=== PATIENT | male | born 1980 | race Caucasian/White ===

== ENCOUNTER 2018-04-07 23:29 | Emergency (ER) | payer OTHER ==
--- NOTE | 2018-04-08 00:05 | ED ---
Chest Pain HPI - General Chief Complaint: Chest Pain Stated Complaint: Chest Pain Time Seen by Provider: 04/07/18 23:59 Source: patient Mode of arrival: ambulatory Limitations: no limitations - History of Present Illness Initial Comments: This patient is 38-year-old man with history of previous CHF then of AICD placement, who states that he is having 2 days of substernal chest tightness and burning type pain. He does state that he has been out of his medications for a couple of weeks. The patient states the pain is mild to moderate intensity. It is constant. He has not noted any worsening or relieving factors. No associated symptoms. Onset/Timin -: days(s) Onset: during rest Pain Location: substernal Pain Radiation: none Severity: moderate Quality: tightness, other (Burning) Consistency: constant Improves With: nothing Worsens With: nothing Treatments Prior to Arrival: none - Related Data Home Medications Medication Instructions Recorded Confirmed Carvedilol [Coreg] 25 mg PO BID-W/MEALS 11/15/15 02/03/16 Insulin Glargine [Lantus] 40 unit SQ HS 11/15/15 02/03/16 Insulin Glulisine [Apidra Solostar] 14 unit SQ AC-TID 11/15/15 02/03/16 metFORMIN HCL 1,000 mg PO QAM 11/15/15 02/03/16 Aspirin EC [Ecotrin] 325 mg PO DAILY 02/03/16 02/03/16 Previous Rx's Medication Instructions Recorded Aspirin 325 mg PO DAILY tab 02/06/16 Atorvastatin [Lipitor] 80 mg PO HS #30 tab 02/06/16 Lisinopril [Zestril] 10 mg PO DAILY #30 tab 02/06/16 Nitroglycerin Sl Tabs [Nitrostat] 0.4 mg SUBLINGUAL Q5M PRN #25 tab 02/06/16 Prasugrel [Effient] 10 mg PO DAILY #30 tab 02/06/16 Spironolactone [Aldactone] 25 mg PO DAILY #30 tablet 02/06/16 Albuterol Inhaler [Ventolin Hfa 1 - 2 puff INHALATION Q6HR PRN #1 04/08/18 Inhaler] inhaler Allergies Allergy/AdvReac Type Severity Reaction Status Date / Time Penicillins Allergy Unknown Verified 04/07/18 23:36 Childhood Review of Systems ROS Statement: Those systems with pertinent positive or pertinent negative responses have been documented in the HPI. ROS Other: All systems not noted in ROS Statement are negative. Constitutional: Denies: fever, chills Respiratory: Reports: cough, dyspnea. Denies: hemoptysis Cardiovascular: Reports: chest pain, orthopnea. Denies: palpitations, edema, syncope Gastrointestinal: Denies: abdominal pain, nausea, vomiting Genitourinary: Denies: dysuria, hematuria Musculoskeletal: Denies: back pain Skin: Denies: rash Neurological: Denies: headache, weakness, numbness EKG Findings - EKG Comments: EKG Findings:: Possible old anteroseptal infarct, based on Q waves lead V2 V3 - EKG Results: EKG: interpreted by AKHIL, sinus rhythm, normal axis, normal ST/T EKG shows: tachycardia (Rate 118 bpm) Past Medical History Past Medical History: Chest Pain / Angina, Heart Failure, Diabetes Mellitus, Hyperlipidemia, Hypertension, Sleep Apnea/CPAP/BIPAP Additional Past Medical History / Comment(s): migraines, arrythmia, no cpap used , History of Any Multi-Drug Resistant Organisms: None Reported Past Surgical History: AICD, Heart Catheterization Past Anesthesia/Blood Transfusion Reactions: Motion Sickness Type of Cardiac Device: AICD Device Placement Date:: 2012 Past Psychological History: Anxiety Smoking Status: Current every day smoker Past Alcohol Use History: None Reported Past Drug Use History: None Reported - Past Family History Mother Family Medical History: No Reported History General Exam Limitations: no limitations General appearance: alert, in no apparent distress, obese Head exam: Present: atraumatic, normocephalic Eye exam: Present: normal appearance. Absent: scleral icterus, conjunctival injection ENT exam: Present: normal oropharynx Respiratory exam: Present: wheezes. Absent: respiratory distress, rales, rhonchi, stridor Cardiovascular Exam: Present: normal rhythm, tachycardia, normal heart sounds. Absent: systolic murmur, diastolic murmur, rubs, gallop GI/Abdominal exam: Present: soft. Absent: distended, tenderness, guarding, rebound, rigid, mass Extremities exam: Present: normal inspection, normal capillary refill. Absent: pedal edema, calf tenderness Back exam: Present: normal inspection. Absent: CVA tenderness (R), CVA tenderness (L) Neurological exam: Present: alert Skin exam: Present: warm, dry, intact, normal color. Absent: rash Course Vital Signs 04/07/18 04/08/18 04/08/18 23:33 00:00 00:30 Temperature 98.2 F Pulse Rate 121 H 114 H 116 H Respiratory 20 16 12 Rate Blood Pressure 140/95 142/104 151/104 O2 Sat by Pulse 99 95 94 L Oximetry 04/08/18 04/08/18 04/08/18 01:00 01:06 01:14 Temperature Pulse Rate 114 H 114 H 111 H Respiratory 15 16 16 Rate Blood Pressure 140/97 O2 Sat by Pulse 95 Oximetry 04/08/18 04/08/18 01:30 03:00 Temperature 98.4 F Pulse Rate 112 H 98 Respiratory 16 18 Rate Blood Pressure 135/95 101/72 O2 Sat by Pulse 93 L 96 Oximetry Disposition Clinical Impression: Bronchitis, Hyperglycemia due to type 2 diabetes mellitus Disposition: HOME SELF-CARE Condition: Fair Instructions: Diabetic Hyperglycemia (ED) Prescriptions: Albuterol Inhaler [Ventolin Hfa Inhaler] 1 - 2 puff INHALATION Q6HR PRN #1 inhaler PRN Reason: Wheezing Is patient prescribed a controlled substance at d/c from ED?: No Referrals: Amrit Dan MD [Primary Care Provider] - 1-2 days
[2018-04-08] MEDS ORDERED: CARVEDILOL 12.5 MG TAB PO STA (00:13)
[2018-04-08] MEDS ORDERED: LISINOPRIL 10 MG TAB PO STA (00:13)
[2018-04-08] MEDS ORDERED: ASPIRIN 81 MG PO STA (00:14)
[2018-04-08] MEDS ORDERED: ALBUTEROL NEBULIZED 2.5 MG/3 ML INHALATION STA (00:17)
[2018-04-08 00:33] LABS: Basophils # (A) 0.1 k/uL (0-0.2); Basophils % (A) 1 %; Eosinophils # (A) 0.2 k/uL (0-0.7); Eosinophils % (A) 2 %; HCT 48.2 % (39.0-53.0); HGB 16.3 gm/dL (13.0-17.5); Lymphocytes # (A) 2.4 k/uL (1.0-4.8); Lymphocytes % (A) 25 %; MCH 28.9 pg (25.0-35.0); MCHC 33.7 g/dL (31.0-37.0); MCV 85.6 fL (80.0-100.0); Mean Platelet Volume 7.8; Monocytes # (A) 0.6 k/uL (0-1.0); Monocytes % (A) 6 %; Neutrophils # (A) 6.3 k/uL (1.3-7.7); Neutrophils % (A) 65 %; Platelet Count 216 k/uL (150-450); RBC 5.63 m/uL (4.30-5.90); RDW 13.5 % (11.5-15.5); WBC 9.7 k/uL (3.8-10.6)
[2018-04-08 00:44] LABS: ALT 33 U/L (21-72); AST 15 U/L (17-59); Albumin 3.3 g/dL (3.5-5.0); Alkaline Phosphatase 160 U/L (38-126); Anion Gap 9 mmol/L; Blood Urea Nitrogen 18 mg/dL (9-20); Calcium 8.8 mg/dL (8.4-10.2); Carbon Dioxide 23 mmol/L (22-30); Chloride 100 mmol/L (98-107); Magnesium 1.8 mg/dL (1.6-2.3); Potassium 4.7 mmol/L (3.5-5.1); Sodium 132 mmol/L (137-145); Total Bilirubin 0.9 mg/dL (0.2-1.3)
[2018-04-08 00:52] LABS: D-Dimer 0.44 mg/L FEU (<0.60); INR 0.9 (<1.2); Partial Thromboplastin Time 23.2 sec (22.0-30.0); Prothrombin Time 9.5 sec (9.0-12.0)
--- NOTE | 2018-04-08 01:00 | XR ---
EXAMINATION TYPE: XR chest 2V DATE OF EXAM: 04/08/2018 COMPARISON: 07/21/2013 HISTORY: Chest pain and difficulty breathing TECHNIQUE: Frontal and lateral views of the chest are obtained. FINDINGS: Heart and mediastinum are normal. Lungs are clear of infiltrate. There is no pleural effus ion. Costophrenic angles are clear. There is left axillary pacemaker with the lead tips in the right ventricle. There are chest leads. Bony thorax is intact. There is small linear density at the lateral right lung base consistent with subsegmental atelectasis. IMPRESSION: Minimal subsegmental atelectasis is new compared to old exam. Normal heart.
[2018-04-08 01:06] LABS: Glucose 543 mg/dL (74-99)
[2018-04-08 01:11] LABS: Creatine Kinase MB 0.8 ng/mL (0.0-2.4); Troponin I 0.028 ng/mL (0.000-0.034)
[2018-04-08] MEDS ORDERED: SODIUM CHLORIDE 0.9% 1,000 ML IV ONE (01:20)
[2018-04-08] MEDS ORDERED: INSULIN REGULAR 100 UNIT/ML VIAL IV STA (01:20)
[2018-04-08 03:05] LABS: Glucose,Whole Blood 321 mg/dL (75-99)
[2018-04-08 03:11] VITALS: BP 101/72; PULSE 98; RESP 18; TEMP 98.4
== END 2018-04-08 03:45 | disposition home or self-care (01) ==
LOC: EC 23:29
DX: E11.65 Type 2 diabetes mellitus with hyperglycemia (principal); J40 Bronchitis, not specified as acute or chronic; I11.0 Hypertensive heart disease with heart failure; I50.9 Heart failure, unspecified; E11.9 Type 2 diabetes mellitus without complications; F17.200 Nicotine dependence, unspecified, uncomplicated; Z79.4 Long term (current) use of insulin; Z79.82 Long term (current) use of aspirin; Z79.899 Other long term (current) drug therapy; Z88.0 Allergy status to penicillin; Z95.818 Presence of other cardiac implants and grafts; Z95.810 Presence of automatic (implantable) cardiac defibrillator
CPT/HCPCS: 36415; 71046; 80053; 82550; 82553; 83735; 83880; 84484; 85025; 85379; 85610; 85730; 93005; 94640; 96360; 99285

== ENCOUNTER 2018-05-05 07:17 | Observation (INO) | payer OTHER ==
--- NOTE | 2018-05-05 07:38 | ED ---
General Adult HPI - General Chief complaint: Shortness of Breath Stated complaint: SOB Time Seen by Provider: 05/05/18 07:27 Source: patient, RN notes reviewed Mode of arrival: ambulatory Limitations: no limitations - History of Present Illness Initial comments: Patient is a pleasant 38-year-old male presenting to the emergency Department with shortness of breath. Onset of symptoms was several weeks ago. Patient was in the emergency department at one point and did receive an inhaler. Inhaler helps a little bit however overall symptoms have worsened. Patient does have occasional cough that is nonproductive. Patient has some discomfort of her bilateral chest with cough only. No fevers. No leg pain or leg swelling. No history of chronic dyspnea. Patient did discontinue smoking one year ago. Patient has smoked for 22 years. Dyspnea does worsen with exertion. - Related Data Home Medications Medication Instructions Recorded Confirmed Carvedilol [Coreg] 25 mg PO BID-W/MEALS 11/15/15 05/05/18 metFORMIN HCL 1,000 mg PO QAM 11/15/15 05/05/18 Aspirin EC [Ecotrin] 325 mg PO DAILY 02/03/16 05/05/18 Albuterol Inhaler [Ventolin Hfa 1 - 2 puff INHALATION RT-Q6H PRN 05/05/18 Inhaler] Ibuprofen 800 mg PO QID PRN 05/05/18 05/05/18 Insulin Glargine,Hum.rec.anlog 120 units SQ QAM 05/05/18 05/05/18 [Basaglar Kwikpen U-100] Lisinopril 20 mg PO DAILY 05/05/18 05/05/18 Previous Rx's Medication Instructions Recorded Atorvastatin [Lipitor] 80 mg PO HS #30 tab 02/06/16 Nitroglycerin Sl Tabs [Nitrostat] 0.4 mg SUBLINGUAL Q5M PRN #25 tab 02/06/16 Allergies Allergy/AdvReac Type Severity Reaction Status Date / Time Penicillins Allergy Unknown Verified 05/05/18 07:53 Childhood Review of Systems ROS Statement: Those systems with pertinent positive or pertinent negative responses have been documented in the HPI. ROS Other: All systems not noted in ROS Statement are negative. Constitutional: Denies: fever Eyes: Denies: eye pain ENT: Denies: ear pain Respiratory: Reports: as per HPI, dyspnea Cardiovascular: Reports: as per HPI Endocrine: Denies: fatigue Gastrointestinal: Denies: abdominal pain Genitourinary: Denies: dysuria Musculoskeletal: Denies: back pain Skin: Denies: rash Neurological: Denies: weakness Past Medical History Past Medical History: Chest Pain / Angina, Heart Failure, Diabetes Mellitus, Hyperlipidemia, Hypertension, Sleep Apnea/CPAP/BIPAP Additional Past Medical History / Comment(s): migraines, arrythmia, no cpap used , History of Any Multi-Drug Resistant Organisms: None Reported Past Surgical History: AICD, Heart Catheterization Past Anesthesia/Blood Transfusion Reactions: Motion Sickness Type of Cardiac Device: AICD Device Placement Date:: 2012 Past Psychological History: Anxiety Smoking Status: Current every day smoker Past Alcohol Use History: None Reported Past Drug Use History: None Reported - Past Family History Mother Family Medical History: No Reported History General Exam Limitations: no limitations General appearance: alert, in no apparent distress Head exam: Present: atraumatic Eye exam: Present: normal appearance, PERRL ENT exam: Present: normal oropharynx Neck exam: Present: normal inspection Respiratory exam: Present: decreased breath sounds (Mild) Cardiovascular Exam: Present: tachycardia Expanded Peripheral pulses: 2+: Radial (R), Radial (L), Dorsalis Pedis (R), Dorsalis Pedis (L) GI/Abdominal exam: Present: soft. Absent: tenderness Extremities exam: Present: normal inspection. Absent: pedal edema, calf tenderness Neurological exam: Present: alert Psychiatric exam: Present: normal affect, normal mood Skin exam: Present: normal color Course Vital Signs 05/05/18 05/05/18 05/05/18 07:24 08:22 08:31 Temperature 98.3 F Pulse Rate 107 H 104 H Respiratory 22 18 Rate Blood Pressure 139/90 O2 Sat by Pulse 94 L Oximetry 05/05/18 08:41 Temperature Pulse Rate 104 H Respiratory Rate Blood Pressure O2 Sat by Pulse Oximetry EKG Findings - EKG Comments: EKG Findings:: Sinus tachycardia 107. NC 176. QRS 110. QT 06/[birth year]/1945. QTc 461. Normal axis. Septal Q waves. Nonspecific ST-T. Medical Decision Making - Medical Decision Making Patient reevaluated and resting comfortably in bed. Patient updated on results and plan. Dr. Dan has been paged for admission. - Lab Data Result diagrams: 05/05/18 08:06 01/14/19 08:06 Lab Results 05/05/18 05/05/18 05/05/18 Range/Units 08:06 08:06 08:06 WBC 9.6 (3.8-10.6) k/uL RBC 5.13 (4.30-5.90) m/uL Hgb 15.1 (13.0-17.5) gm/dL Hct 43.3 (39.0-53.0) % MCV 84.5 (80.0-100.0) fL MCH 29.5 (25.0-35.0) pg MCHC 34.9 (31.0-37.0) g/dL RDW 13.9 (11.5-15.5) % Plt Count 246 (150-450) k/uL Neutrophils % 68 % Lymphocytes % 21 % Monocytes % 6 % Eosinophils % 3 % Basophils % 1 % Neutrophils # 6.5 (1.3-7.7) k/uL Lymphocytes # 2.0 (1.0-4.8) k/uL Monocytes # 0.6 (0-1.0) k/uL Eosinophils # 0.2 (0-0.7) k/uL Basophils # 0.1 (0-0.2) k/uL PT (9.0-12.0) sec INR (<1.2) APTT (22.0-30.0) sec Sodium 142 (137-145) mmol/L Potassium 4.4 (3.5-5.1) mmol/L Chloride 111 H (98-107) mmol/L Carbon Dioxide 21 L (22-30) mmol/L Anion Gap 10 mmol/L BUN 19 (9-20) mg/dL Creatinine 0.78 (0.66-1.25) mg/dL Est GFR (CKD-EPI)AfAm >90 (>60 ml/min/1.73 sqM) Est GFR (CKD-EPI)NonAf >90 (>60 ml/min/1.73 sqM) Glucose 221 H (74-99) mg/dL Calcium 9.0 (8.4-10.2) mg/dL Total Bilirubin 1.6 H (0.2-1.3) mg/dL AST 20 (17-59) U/L ALT 28 (21-72) U/L Alkaline Phosphatase 93 (38-126) U/L Total Creatine Kinase 43 L (55-170) U/L CK-MB (CK-2) 0.9 (0.0-2.4) ng/mL CK-MB (CK-2) Rel Index 2.1 Troponin I 0.017 (0.000-0.034) ng/mL NT-Pro-B Natriuret Pep pg/mL Total Protein 6.4 (6.3-8.2) g/dL Albumin 3.6 (3.5-5.0) g/dL 05/05/18 05/05/18 Range/Units 08:06 08:06 WBC (3.8-10.6) k/uL RBC (4.30-5.90) m/uL Hgb (13.0-17.5) gm/dL Hct (39.0-53.0) % MCV (80.0-100.0) fL MCH (25.0-35.0) pg MCHC (31.0-37.0) g/dL RDW (11.5-15.5) % Plt Count (150-450) k/uL Neutrophils % % Lymphocytes % % Monocytes % % Eosinophils % % Basophils % % Neutrophils # (1.3-7.7) k/uL Lymphocytes # (1.0-4.8) k/uL Monocytes # (0-1.0) k/uL Eosinophils # (0-0.7) k/uL Basophils # (0-0.2) k/uL PT 10.5 (9.0-12.0) sec INR 1.0 (<1.2) APTT 23.1 (22.0-30.0) sec Sodium (137-145) mmol/L Potassium (3.5-5.1) mmol/L Chloride (98-107) mmol/L Carbon Dioxide (22-30) mmol/L Anion Gap mmol/L BUN (9-20) mg/dL Creatinine (0.66-1.25) mg/dL Est GFR (CKD-EPI)AfAm (>60 ml/min/1.73 sqM) Est GFR (CKD-EPI)NonAf (>60 ml/min/1.73 sqM) Glucose (74-99) mg/dL Calcium (8.4-10.2) mg/dL Total Bilirubin (0.2-1.3) mg/dL AST (17-59) U/L ALT (21-72) U/L Alkaline Phosphatase (38-126) U/L Total Creatine Kinase (55-170) U/L CK-MB (CK-2) (0.0-2.4) ng/mL CK-MB (CK-2) Rel Index Troponin I (0.000-0.034) ng/mL NT-Pro-B Natriuret Pep 798 pg/mL Total Protein (6.3-8.2) g/dL Albumin (3.5-5.0) g/dL - Radiology Data Radiology results: report reviewed (Computed tomography scan the chest negative for pulmonary embolism. There is peribronchial cuffing. There is interstitial edema and moderate pleural effusion right greater than left. Cardiac megaly is present likely related to underlying decompensated congestive heart failure.) Disposition Clinical Impression: Congestive heart failure Disposition: ADMITTED IP TO THIS [facility] Referrals: Amrit Dan MD [Primary Care Provider] - 1-2 days Decision Time: 10:25
[2018-05-05 08:19] LABS: Basophils # (A) 0.1 k/uL (0-0.2); Basophils % (A) 1 %; Eosinophils # (A) 0.2 k/uL (0-0.7); Eosinophils % (A) 3 %; HCT 43.3 % (39.0-53.0); HGB 15.1 gm/dL (13.0-17.5); Lymphocytes % (A) 21 %; MCH 29.5 pg (25.0-35.0); MCHC 34.9 g/dL (31.0-37.0); MCV 84.5 fL (80.0-100.0); Mean Platelet Volume 7.3; Monocytes # (A) 0.6 k/uL (0-1.0); Monocytes % (A) 6 %; Neutrophils # (A) 6.5 k/uL (1.3-7.7); Neutrophils % (A) 68 %; Platelet Count 246 k/uL (150-450); RBC 5.13 m/uL (4.30-5.90); RDW 13.9 % (11.5-15.5); WBC 9.6 k/uL (3.8-10.6)
[2018-05-05] MEDS: IPRATROPIUM-ALBUTEROL 3 ML NEB INHALATION STA (08:28)
[2018-05-05 08:31] LABS: ALT 28 U/L (21-72); AST 20 U/L (17-59); Albumin 3.6 g/dL (3.5-5.0); Alkaline Phosphatase 93 U/L (38-126); Anion Gap 10 mmol/L; Blood Urea Nitrogen 19 mg/dL (9-20); Carbon Dioxide 21 mmol/L (22-30); Chloride 111 mmol/L (98-107); Glucose 221 mg/dL (74-99); Potassium 4.4 mmol/L (3.5-5.1); Sodium 142 mmol/L (137-145); Total Bilirubin 1.6 mg/dL (0.2-1.3); Total Protein 6.4 g/dL (6.3-8.2)
[2018-05-05 08:47] LABS: Partial Thromboplastin Time 23.1 sec (22.0-30.0); Prothrombin Time 10.5 sec (9.0-12.0)
[2018-05-05 08:53] LABS: Creatine Kinase MB 0.9 ng/mL (0.0-2.4); Troponin I 0.017 ng/mL (0.000-0.034)
--- NOTE | 2018-05-05 09:53 | CT ---
EXAMINATION TYPE: CT angio chest DATE OF EXAM: 05/05/2018 COMPARISON: NONE HISTORY: difficulty breathing CT DLP: 885.4 mGycm. Automated Exposure Control for Dose Reduction was Utilized. CONTRAST: CTA scan of the thorax is performed with IV Contrast, patient injected with 100 mL of Isovue 370, pul monary embolism protocol. MIP Images are created on CT scanner and reviewed. FINDINGS: LUNGS: There are bilateral pleural effusions, right greater than left that are moderate in degree wit h associated bibasilar airspace disease. There is mild interstitial edema throughout and more conflue nt right upper lobe probable pulmonary edema. There is diffuse The cuffing seen. Findings Limited evaluation for subcentimeter pulmonary nodules. MEDIASTINUM: There is satisfactory enhancement of the pulmonary artery and its branches, there is no CT evidence for pulmonary embolism. There are no greater than 1 cm hilar or mediastinal lymph nodes. The heart is enlarged. Small pericardial effusion is seen. OTHER: Splenule is noted adjacent to the splenic hilum. IMPRESSION: 1. No evidence of pulmonary embolus. 2. Peribronchial cuffing may relate to fluid overload or superimposed airway disease of infectious or inflammatory etiology. 3. Interstitial edema and moderate pleural effusions, right greater than left, with right upper lobe confluent probable pulmonary edema examination with cardiomegaly likely relate to underlying decompen sated congestive heart failure.
[2018-05-05] MEDS ORDERED: ASPIRIN 325 MG TAB PO STA (10:26)
[2018-05-05] MEDS: NITROGLYCERIN OINT 1 INCH/GM PACKET TOPICAL SCH ×3 (11:19→19:50)
[2018-05-05] MEDS: FUROSEMIDE 10 MG/ML 4 ML VIAL IV SCH ×3 (11:19→22:39)
[2018-05-05 12:25] LABS: Glucose,Whole Blood 157 mg/dL (75-99)
[2018-05-05 15:18] VITALS: BMI 44.6
[2018-05-05] MEDS ORDERED: NITROGLYCERIN SL TABS 0.4 MG TAB SUBLINGUAL PRN (16:24)
[2018-05-05 17:16] LABS: Glucose,Whole Blood 160 mg/dL (75-99)
[2018-05-05] MEDS: CARVEDILOL 12.5 MG TAB PO SCH (17:35)
--- NOTE | 2018-05-05 18:23 | CONS ---
ERAN Dunn is a 38-year-old gentleman with history of multivessel coronary artery disease, status post angioplasty, ischemic cardiomyopathy with severe LV dysfunction, status post AICD, hypertension, [id number]-sigpeeigk diabetes, presents to hospital complaining of shortness of breath. The patient has mild to moderate intensity shortness of breath. It has been getting progressively worse over the last several days. He denies leg edema, but has some paroxysmal nocturnal dyspnea. At the time of my evaluation, patient is comfortable at rest. Having his dinner. He is receiving intravenous diuretics. PAST MEDICAL HISTORY: Significant for coronary artery disease, status post angioplasty, ischemic cardiomyopathy with LV systolic dysfunction, hypertension, dyslipidemia. MEDICATIONS: Medications include: Lisinopril 20 daily, ibuprofen, metformin, insulin, Coreg 25 b.i.d., Lipitor, aspirin, albuterol. ALLERGIES: TO PENICILLIN. FAMILY HISTORY: Negative for premature coronary artery disease. SOCIAL HISTORY: Significant for smoking. There is no history of EtOH abuse or drug abuse. REVIEW OF SYSTEMS: HEENT is unremarkable. CARDIAC as described above. RESPIRATORY as described above. GI negative. GENITOURINARY: Negative. ALLERGY: Negative. SKIN Negative. MUSCULOSKELETAL negative. ENDOCRINE: Negative. DERM: Negative. CONSTITUTIONAL negative. ONCOLOGICAL negative. Rest of the systems review is not relevant. EXAM: Heart rate is 100 beats per minute, blood pressure is 120/86, respiratory rate is 18, O2 sat is 92% on room air. There is no jugular venous distention. Chest exam did not reveal any crackles or rhonchi. Heart exam reveals first and second heart sounds. No gallop. Exam of extremities did not reveal any edema. Peripheral pulses are felt. LAB: Show a hemoglobin of 15.1, platelet count is 246, potassium is 4.4. Creatinine is 0.78. BNP is 798. Troponin is normal. EKG shows sinus tachycardia with nonspecific ST-T wave changes. ASSESSMENT: 1. Acute exacerbation of chronic systolic heart failure. 2. Ischemic cardiomyopathy status post AICD. 3. Coronary artery disease, status post angioplasty. PLAN: I agree with intravenous diuretics. I will obtain a 2D echo to evaluate his LV function. Continue the lisinopril and Coreg. Thank you for allowing us to participate in the care of this pleasant gentleman. MMODL / IJN: [id number] /
--- NOTE | 2018-05-05 19:20 | ECHOF ---
Referral Reason:Heart Failure MEASUREMENTS -------- HEIGHT: 180.3 cm WEIGHT: 145.1 kg BP: 139/90 RVIDd: 3.4 cm (< 3.3) IVSd: 1.3 cm (0.6 - 1.1) LVIDd: 6.1 cm (3.9 - 5.3) LVPWd: 1.3 cm (0.6 - 1.1) IVSs: 1.7 cm LVIDs: 4.7 cm LVPWs: 1.7 cm LA Diam: 3.7 cm (2.7 - 3.8) LAESV Index (A-L): 35.13 ml/m Ao Diam: 3.2 cm (2.0 - 3.7) AV Cusp: 2.1 cm (1.5 - 2.6) MV EXCURSION: 22.863 mm (> 18.000) MV EF SLOPE: 124 mm/s (70 - 150) EPSS: 1.3 cm RAP: 5.00 mmHg RVSP: 61.47 mmHg FINDINGS -------- Paced rhythm. Pacerwire seen in RV and RA. This was a technically difficult study with suboptimal apical views. The left ventricle is mildly dilated. There is mild concentric left ventricular hypertrophy. Over all left ventricular systolic function is severely impaired with, an EF between 20 - 25 %. The right ventricle is mildly enlarged. LA is moderately dilated 34-39 ml/m2 The right atrium is normal in size. Lumason used The aortic valve is trileaflet and appears structurally normal. [id number] mitral regurgitation is present. Moderate tricuspid regurgitation present. There is severe pulmonary hypertension. The right ventr icular systolic pressure, as measured by Doppler, is 61.47mmHg. Trace/mild (physiologic) pulmonic regurgitation. The aortic root size is normal. The inferior vena cava is dilated with no significant inspiratory collapse which is consistent estima galilea right atrial pressure of >15 mmHg. There is a small pericardial effusion located near the left ventricle. CONCLUSIONS -------- 1. Paced rhythm. 2. Pacerwire seen in RV and RA. 3. This was a technically difficult study with suboptimal apical views. 4. The left ventricle is mildly dilated. 5. There is mild concentric left ventricular hypertrophy. 6. Overall left ventricular systolic function is severely impaired with, an EF between 20 - 25 %. 7. The right ventricle is mildly enlarged. 8. LA is moderately dilated 34-39 ml/m2 9. The right atrium is normal in size. 10. Lumason used 11. The aortic valve is trileaflet and appears structurally normal. 12. Buha-tr-cgrkzzwj mitral regurgitation is present. 13. Moderate tricuspid regurgitation present. 14. There is severe pulmonary hypertension. 15. The right ventricular systolic pressure, as measured by Doppler, is 61.47mmHg. 16. Trace/mild (physiologic) pulmonic regurgitation. 17. The aortic root size is normal. 18. The inferior vena cava is dilated with no significant inspiratory collapse which is consistent es timated right atrial pressure of >20 mmHg. 19. There is a small pericardial effusion located near the left ventricle. FUNERAL GREETER: Kasey Blum RDCS
[2018-05-05 20:47] LABS: Glucose,Whole Blood 301 mg/dL (75-99)
[2018-05-06 04:57] LABS: Hemoglobin A1C 11.4 % (4.0-6.0)
[2018-05-06] MEDS: CARVEDILOL 12.5 MG TAB PO SCH ×2 (05:45→15:52)
[2018-05-06 05:46] LABS: Glucose,Whole Blood 173 mg/dL (75-99)
[2018-05-06 05:48] VITALS: RESP 18
[2018-05-06] MEDS: NITROGLYCERIN OINT 1 INCH/GM PACKET TOPICAL SCH ×2 (08:14→11:03)
[2018-05-06] MEDS: ASPIRIN 325 MG TAB PO SCH (08:23)
[2018-05-06] MEDS: LISINOPRIL 20 MG TAB PO SCH (08:23)
[2018-05-06] MEDS: FUROSEMIDE 10 MG/ML 4 ML VIAL IV SCH ×3 (08:23→22:29)
[2018-05-06] MEDS ORDERED: NON-FORMULARY DRUG (Aspirin Ec 325 MG) PO SCH (09:00)
[2018-05-06] MEDS ORDERED: IBUPROFEN 800 MG TAB PO PRN (10:20)
[2018-05-06 12:12] LABS: Glucose,Whole Blood 276 mg/dL (75-99)
[2018-05-06] MEDS: INSULIN DETEMIR (LEVEMIR) 100 UNIT/ML SYR SQ SCH (12:21)
--- NOTE | 2018-05-06 14:58 | P.PN ---
Subjective Progress Note Date: 05/06/18 This is a pleasant 38-year-old gentleman with history of multivessel coronary artery disease status post angioplasty, ischemic cardio myopathy with severe LV dysfunction, status post AICD, hypertension, vzx-xzcuqvn-cpjveuowt diabetes, who initially presented to the hospital with complaints of shortness of breath, he has been diuresing well on IV Lasix. No lab data has been ordered for today. overall feeling significantly better today. Blood pressure 126/90 , heart rate in the 90s, 93% on room air. Objective - Vital Signs Vital signs: Vital Signs Temp 97.8 F 05/06/18 12:00 Pulse 94 05/06/18 12:00 Resp 18 05/06/18 12:00 BP 127/90 05/06/18 12:00 Pulse Ox 95 05/06/18 12:13 Intake & Output 05/05/18 05/06/18 05/06/18 18:59 06:59 18:59 Intake Total 480 240 480 Output Total 500 1000 Balance -20 -760 480 Weight 145.15 kg 146.6 kg Intake: Oral 480 240 480 Output: Urine 500 1000 Other: # Voids 2 1 2 - Exam PHYSICAL EXAMINATION: GENERAL: 38-year-old gentleman in no acute distress at the time of my examination HEENT: Head is atraumatic, normocephalic. Pupils equal, round. Sclera anicteric. Conjunctiva are clear. Mucous membranes of the mouth are moist. Neck is supple. There is no elevated jugular venous pressure. No carotid bruit is heard. HEART EXAMINATION: Heart S1, S2 normal. No murmur or gallop heard. CHEST EXAMINATION: Lungs are clear to auscultation and precussion. No chest wall tenderness is noted on palpation or with deep breathing. ABDOMEN: Soft, nontender. Bowel sounds are heard. No organomegaly noted. EXTREMITIES: 2+ peripheral pulses with trace evidence of peripheral edema and no calf tenderness noted. NEUROLOGIC patient is awake, alert and oriented X3. . - Labs CBC & Chem 7: 05/05/18 08:06 05/05/18 08:06 Labs: Abnormal Lab Results - Last 24 Hours (Table) 05/05/18 05/05/18 05/05/18 Range/Units 08:06 17:08 20:46 POC Glucose (mg/dL) 160 H 301 H (75-99) mg/dL Hemoglobin A1c 11.4 H (4.0-6.0) % 05/06/18 05/06/18 Range/Units 05:45 11:41 POC Glucose (mg/dL) 173 H 276 H (75-99) mg/dL Hemoglobin A1c (4.0-6.0) % Assessment and Plan Plan: Assessment and plan #1 systolic congestive heart failure acute on chronic #2 ischemic cardiomyopathy with prior AICD implantation #3 CAD with prior PCI #4 hypertension #5 hyperlipidemia Plan Echocardiogram with Doppler study was performed which revealed an ejection fraction of 20-25%, mild to moderate mitral regurgitation, moderate TR, severe pulmonary hypertension. We will continue current dose of IV Lasix. Check lytes BUN and creatinine today and daily. Continue to monitor intake and output. We'll also add Aldactone to his medication regime. DNP note has been reviewed, I agree with a documented findings and plan of care. Patient was seen and examined.
--- NOTE | 2018-05-06 15:06 | HP ---
HISTORY AND PHYSICAL CHIEF COMPLAINT: Shortness of breath. HISTORY OF PRESENT ILLNESS: This is the first known admission for this 38-year-old white male. He does have a history of diabetes and hypertension. He has had past cardiac issues as well. Presented to the emergency room after he developed shortness of breath. He denied fever and chills, cough, hemoptysis, etc. Histories are significant in that he was diagnosed with congestive heart failure in 2011. He has a history of hyperlipidemia and type 2 diabetes. Been treated for hypertension and he had a pacemaker placed in October of 2012. In the left in the last couple years, he was treated for an UT. He has had cardiac cath with stent placement and also an ICD. REVIEW OF SYSTEMS: She has had no syncope, headache, change in vision and hearing, chest pain, nausea, vomiting, hematemesis, melena, hematochezia, jaundice, hepatitis, hematuria, frequency, renal failure, etc. Past medical history, family history personal and social histories reveal that he is allergic to PENICILLIN. He is on lisinopril 2.5 once a day, Coreg 3.125 once a day, vitamin D 50,000 units a month, ibuprofen 800 mg q.i.d. p.r.n., metformin 1 g once a day, 120 units once a day, aspirin 325 once a day, nitroglycerin p.r.n. Family history is significant in that he states that many members of his family on both sides had heart disease and congestive heart failure that was frequently diagnosed. He does not smoke. PHYSICAL EXAM: Blood pressure is 138/82 with a pulse of 98, respirations of 32. He is afebrile. In general, he appeared to be overweight in no acute distress. Skin color is normal, skin is warm, dry. Lymph nodes not enlarged. Head, ears, eyes, nose, mouth, and throat were normal. Neck veins are not distended. Thyroid enlarged. Chest is clear. Cardiac exam demonstrated sinus rhythm with no obvious S3 or S4 or murmur. Abdomen is soft and protuberant. There are no masses or visceromegaly. Extremities are normal and neurologically he is intact. He is admitted to the hospital with diagnoses: 1. Acute congestive heart failure. 2. Probable atherosclerotic cardiomyopathy. 3. History of coronary artery disease. 4. Family history of heart disease. 5. Diabetes mellitus. PLAN: 1. Bed rest. 2. IV fluids. 3. Cardiology consult. 4. Repeat echocardiogram. MMSRAVANTHIL / IJN: [id number] /
--- NOTE | 2018-05-06 15:23 | PN ---
PROGRESS NOTE DATE OF SERVICE: 05/06/2018 CHIEF COMPLAINT: Shortness of breath and congestive heart failure. HISTORY OF PRESENT ILLNESS: This gentleman is doing a little bit better. He is breathing better since he has been diuresed. PHYSICAL EXAM: He has rales at both bases and cardiac exam is unremarkable. The abdomen is soft, nontender. IMPRESSION: 1. Acute congestive heart failure. 2. Chronic diastolic congestive heart failure. 3. Atherosclerotic cardiomyopathy. 4. Coronary artery disease. 5. Poorly controlled diabetes mellitus. PLAN: 1. Bed rest. 2. IV fluids. 3. Await further cardiac evaluation, but his echocardiogram is ominous with significant decrease in ejection fraction and extreme pulmonary hypertension. MMODL / IJN: [id number] /
[2018-05-06 15:32] LABS: Anion Gap 9 mmol/L; Blood Urea Nitrogen 19 mg/dL (9-20); Carbon Dioxide 27 mmol/L (22-30); Chloride 105 mmol/L (98-107); Glucose 161 mg/dL (74-99); Sodium 141 mmol/L (137-145)
[2018-05-06] MEDS: SPIRONOLACTONE 25 MG TAB PO SCH (15:52)
[2018-05-06 16:22] LABS: Glucose,Whole Blood 261 mg/dL (75-99)
[2018-05-06] MEDS: MAGNESIUM SULFATE-D5W PMX 1 GM in DEXTROSE/WATER 1 100ML.BAG IVPB SCH (16:35)
[2018-05-06 21:14] LABS: Glucose,Whole Blood 334 mg/dL (75-99)
[2018-05-07] MEDS: CARVEDILOL 12.5 MG TAB PO SCH (05:53)
[2018-05-07 06:00] LABS: Glucose,Whole Blood 141 mg/dL (75-99)
[2018-05-07 07:24] LABS: Anion Gap 8 mmol/L; Blood Urea Nitrogen 22 mg/dL (9-20); Calcium 8.7 mg/dL (8.4-10.2); Carbon Dioxide 30 mmol/L (22-30); Chloride 104 mmol/L (98-107); Glucose 134 mg/dL (74-99); Sodium 142 mmol/L (137-145)
[2018-05-07] MEDS: SPIRONOLACTONE 25 MG TAB PO SCH (07:41)
[2018-05-07] MEDS: LISINOPRIL 20 MG TAB PO SCH (07:41)
[2018-05-07] MEDS: ASPIRIN 325 MG TAB PO SCH (07:41)
[2018-05-07] MEDS: FUROSEMIDE 10 MG/ML 4 ML VIAL IV SCH (07:41)
[2018-05-07] MEDS: INSULIN DETEMIR (LEVEMIR) 100 UNIT/ML SYR SQ SCH (08:48)
--- NOTE | 2018-05-07 10:13 | P.PN ---
Subjective Progress Note Date: 05/07/18 This is a pleasant 38-year-old gentleman with history of multivessel coronary artery disease status post angioplasty, ischemic cardio myopathy with severe LV dysfunction, status post AICD, hypertension, [id number] diabetes, who initially presented to the hospital with complaints of shortness of breath, he has been diuresing well on IV Lasix. No lab data has been ordered for today. overall feeling significantly better today. Blood pressure 126/90 , heart rate in the 90s, 93% on room air. 05/07/2018 Patient seen and examined this morning, slept well through the night last night. Diuresed well through the night, weight is down 2 kg today. Blood pressure 132/80 with a heart rate in the 80s, 93% on room air. Sodium 142, potassium 4.0, BUN 22 and creatinine 0.8. Objective - Vital Signs Vital signs: Vital Signs Temp 97.2 F L 05/07/18 04:00 Pulse 88 05/07/18 04:00 Resp 18 05/07/18 04:00 BP 132/80 05/07/18 04:00 Pulse Ox 93 L 05/07/18 04:00 Intake & Output 05/06/18 05/07/18 05/07/18 18:59 06:59 18:59 Intake Total 720 240 Output Total 450 Balance 720 -450 240 Weight 144.9 kg Intake: Oral 720 240 Output: Urine 450 Other: # Voids 2 1 - Exam PHYSICAL EXAMINATION: GENERAL: 38-year-old gentleman in no acute distress at the time of my examination HEENT: Head is atraumatic, normocephalic. Pupils equal, round. Sclera anicteric. Conjunctiva are clear. Mucous membranes of the mouth are moist. Neck is supple. There is no elevated jugular venous pressure. No carotid bruit is heard. HEART EXAMINATION: Heart S1, S2 normal. No murmur or gallop heard. CHEST EXAMINATION: Lungs are clear to auscultation and precussion. No chest wall tenderness is noted on palpation or with deep breathing. ABDOMEN: Soft, nontender. Bowel sounds are heard. No organomegaly noted. EXTREMITIES: 2+ peripheral pulses with no evidence of peripheral edema and no calf tenderness noted. NEUROLOGIC patient is awake, alert and oriented X3. . - Labs CBC & Chem 7: 05/05/18 08:06 05/07/18 05:45 Labs: Abnormal Lab Results - Last 24 Hours (Table) 05/06/18 05/06/18 05/06/18 Range/Units 06:07 11:41 16:13 BUN (9-20) mg/dL Glucose 161 H (74-99) mg/dL POC Glucose (mg/dL) 276 H 261 H (75-99) mg/dL 05/06/18 05/07/18 05/07/18 Range/Units 21:12 05:45 05:55 BUN 22 H (9-20) mg/dL Glucose 134 H (74-99) mg/dL POC Glucose (mg/dL) 334 H 141 H (75-99) mg/dL Assessment and Plan Plan: Assessment and plan #1 systolic congestive heart failure acute on chronic #2 ischemic cardiomyopathy with prior AICD implantation #3 CAD with prior PCI #4 hypertension #5 hyperlipidemia Plan Echocardiogram with Doppler study was performed which revealed an ejection fraction of 20-25%, mild to moderate mitral regurgitation, moderate TR, severe pulmonary hypertension. We will discontinue the IV Lasix today and start the patient on oral diuretics. Continue Coreg, lisinopril 20 mg daily and Aldactone. Decrease aspirin to 81 mg daily. Make a follow-up appointment in the office post discharge. Lytes BUN and creatinine in 3 days. DNP note has been reviewed, I agree with a documented findings and plan of care. Patient was seen and examined.
[2018-05-07 10:54] VITALS: TEMP 97
[2018-05-07 11:38] LABS: Glucose,Whole Blood 193 mg/dL (75-99)
[2018-05-07 12:37] VITALS: BP 126/84; PULSE 91
--- NOTE | 2018-05-07 14:52 | DS ---
DISCHARGE SUMMARY DATE OF SERVICE: 05/07/2018. CHIEF COMPLAINT: Shortness of breath. HISTORY OF PRESENT ILLNESS AND PHYSICAL EXAM: Details of this man's history and physical can be found in the initial workup. LABORATORY STUDIES: While he was in a hospital he had laboratory studies, details of which can be found in the laboratory section of his chart. COURSE IN HOSPITAL: After admission he was placed on bedrest, started on intravenous fluids and managed for his heart failure. He was seen by Cardiology. Heart failure cleared and there was no recommendation for any significant changes in his medication program. It is felt that he could be discharged on the and to follow up in the office for further management and better control of his diabetes. FINAL DIAGNOSES: 1. Acute congestive heart failure. 2. Chronic congestive heart failure. 3. Atherosclerotic cardiomyopathy. 4. Coronary artery disease. 5. Previous myocardial infarction. 6. Status post implantation of AICD. 7. Uncontrolled diabetes. OPERATIONS: None. CONSULTATIONS: Cardiology. He is improved. MMODL / IJN: [id number] /
[2018-05-08] MEDS ORDERED: FUROSEMIDE 40 MG TAB PO SCH (09:00)
[2018-05-08] MEDS ORDERED: ASPIRIN 81 MG PO SCH (09:00)
--- NOTE | 2018-05-09 06:01 | CDI ---
Documentation Clarification Form Date: 05/09/2018 5:52:35 AM From: Angela Mcgarry Phone: If you have a question about this query, please contact Cesilia Francis Social Work Assistant at [phone] between 8am and 5pm. Admit Date: 05/05/2018 10:26:00 AM Patient Name: Shaun Roldan Visit Number: [id number] Discharge Date: 05/07/2018 1:11:00 PM ATTENTION: The Clinical Documentation Specialists (CDI) and [facility] Coding Staff appreciate your assistance in clarifying documentation. Please respond to the clarification below the line at the bottom and electronically sign. The CDI & [facility] Coding staff will review the response and follow-up if needed. Please note: Queries are made part of the Legal Health Record. If you have any questions, please contact the author of this message via ITS. Dr. Amrit Dan Patient has been described as appearing overweight in H and P History/Risk Factors: 38 year old male with hx. [place], stent, cardiomyopathy, CAD, AICD, current smoker Calculated BMI is 44.6 In order to capture the severity of condition associated with patient BMI of 44.6, a clinical diagnosis needs to be documented by the physician. Please clarify: Overweight Obesity, Class 1 Obesity, Class 2 Extreme (Morbid) (severe) obesity Other, please specify ____ Unable to determine NIH Classification for BMI: Overweight BMI 25-29.9 Obesity (Class 1) BMI 30-34.9 Obesity (Class 2) BMI 35-39.9 Extreme (Morbid) (severe) obesity BMI =40 MTDD
--- NOTE | 2018-05-24 18:34 | MISC ---
MISCELLANOUS REPORT Unable to determine. MMODL / IJN: [id number] /
== END 2018-05-07 13:11 | disposition home or self-care (01) ==
LOC: EC 07:17 → 3SCARD 10:26 → INTOOBSV 10:26 → 3SCARD 10:57 → UNDODISIN 05-07 13:11
PROVIDERS: ADMIT Family Medicine; ATTEND Family Medicine
DX: I11.0 Hypertensive heart disease with heart failure (principal); I50.23 Acute on chronic systolic (congestive) heart failure; E11.65 Type 2 diabetes mellitus with hyperglycemia; E78.5 Hyperlipidemia, unspecified; F17.210 Nicotine dependence, cigarettes, uncomplicated; G47.30 Sleep apnea, unspecified; G43.909 Migraine, unspecified, not intractable, without status migrainosus; F41.9 Anxiety disorder, unspecified; I25.10 Atherosclerotic heart disease of native coronary artery without angina pectoris; I25.5 Ischemic cardiomyopathy; E66.3 Overweight; Z79.82 Long term (current) use of aspirin; Z79.4 Long term (current) use of insulin; Z79.899 Other long term (current) drug therapy; Z88.0 Allergy status to penicillin; Z99.89 Dependence on other enabling machines and devices; Z95.810 Presence of automatic (implantable) cardiac defibrillator; I25.2 Old myocardial infarction; Z98.61 Coronary angioplasty status; Z82.49 Family history of ischemic heart disease and other diseases of the circulatory system
CPT/HCPCS: 96376 ×3; 96374; 99285; 36415; 94640; 94760; 93005; 83880; 80053; 80048 ×2; 82550; 82553; 83735; 84484; 85025; 85610; 85730; 83036; 71275; G0378 ×3; C8929; J1940 ×3; J3475; Q9950; Q9967; 93306

== ENCOUNTER 2018-10-13 16:22 | Inpatient (IN) | payer OTHER ==
[2018-10-13] MEDS ORDERED: SODIUM CHLORIDE 0.9% 1,000 ML IV STA (16:29)
--- NOTE | 2018-10-13 16:37 | ED ---
Chest Pain HPI - General Chief Complaint: Chest Pain Stated Complaint: Chest pain/sob Time Seen by Provider: 10/13/18 16:29 Source: patient, RN notes reviewed, old records reviewed Mode of arrival: wheelchair Limitations: no limitations - History of Present Illness Initial Comments: This is a 30-year-old male the ER for evaluation history of AR history of prior stenting. Patient is severely surgery for. Patient was admitted about a year ago for cardiac evaluation since that is been doing fine. No modifying factors for pain presented for chest pain started tonight mild nausea no vomiting no diaphoresis, denies trauma fever cough or congestion MD Complaint: chest pain -: days(s) Onset: during rest Pain Location: left chest, epigastric Pain Radiation: none Severity: mild Severity scale (1-10): 2 Quality: tightness Consistency: constant Improves With: nothing Worsens With: nothing Anginal Symptoms: dyspnea Treatments Prior to Arrival: none - Related Data Home Medications Medication Instructions Recorded Confirmed Albuterol Inhaler [Ventolin Hfa 1 - 2 puff INHALATION RT-Q6H PRN 05/05/18 10/13/18 Inhaler] Insulin Glargine,Hum.rec.anlog 120 units SQ QAM 05/05/18 10/13/18 [Basaglar Kwikpen U-100] Aspirin EC [Ecotrin Low Dose] 81 mg PO DAILY 10/13/18 10/13/18 Carvedilol [Coreg] 3.125 mg PO DAILY 10/13/18 10/13/18 Ibuprofen [Motrin] 800 mg PO DAILY 10/13/18 10/13/18 Lisinopril [Zestril] 2.5 mg PO DAILY 10/13/18 10/13/18 Previous Rx's Medication Instructions Recorded Atorvastatin [Lipitor] 80 mg PO HS #30 tab 02/06/16 Nitroglycerin Sl Tabs [Nitrostat] 0.4 mg SUBLINGUAL Q5M PRN #25 tab 02/06/16 Furosemide [Lasix] 40 mg PO DAILY #30 tab 05/07/18 Spironolactone [Aldactone] 25 mg PO DAILY #30 tab 05/07/18 Allergies Allergy/AdvReac Type Severity Reaction Status Date / Time Penicillins Allergy Unknown Verified 10/13/18 17:11 Childhood Review of Systems ROS Statement: Those systems with pertinent positive or pertinent negative responses have been documented in the HPI. ROS Other: All systems not noted in ROS Statement are negative. EKG Findings - EKG Comments: EKG Findings:: EKG shows sinus rhythm rate of 95, MI 196, QRS 06, QTc 454 Past Medical History Past Medical History: Coronary Artery Disease (CAD), Chest Pain / Angina, Heart Failure, Diabetes Mellitus, Hyperlipidemia, Hypertension, Myocardial Infarction (AR), Sleep Apnea/CPAP/BIPAP, Syncope Additional Past Medical History / Comment(s): Cardiiomyopathy with AICD, IDDM type II, neuropathy bilateral feet, SP with Cpap use, migraines, chronic back pain. Last Myocardial Infarction Date:: 2015 History of Any Multi-Drug Resistant Organisms: None Reported Past Surgical History: AICD, Heart Catheterization, Heart Catheterization With Stent Additional Past Surgical History / Comment(s): 10/27/12 AICD, DFTs, PCI with stent Past Anesthesia/Blood Transfusion Reactions: No Reported Reaction Date of Last Stent Placement:: 02/03/16 Type of Cardiac Device: AICD Device Placement Date:: 2012 Past Psychological History: Anxiety Smoking Status: Former smoker Past Alcohol Use History: None Reported Past Drug Use History: None Reported - Past Family History Mother Family Medical History: No Reported History Additional Family Medical History / Comment(s): Mother is healthy Brother(s) Family Medical History: Myocardial Infarction (AR) Additional Family Medical History / Comment(s): Brother of a AR at the age of 35yrs. Father Family Medical History: Liver Disease Additional Family Medical History / Comment(s): Father when pt was 19 yrs old from liver disease. He was an alcoholic. General Exam Limitations: no limitations General appearance: alert, in no apparent distress Head exam: Present: atraumatic, normocephalic, normal inspection Eye exam: Present: normal appearance, PERRL, EOMI. Absent: scleral icterus, conjunctival injection, periorbital swelling ENT exam: Present: normal exam, mucous membranes moist Neck exam: Present: normal inspection. Absent: tenderness, meningismus, lymphadenopathy Respiratory exam: Present: normal lung sounds bilaterally. Absent: respiratory distress, wheezes, rales, rhonchi, stridor Cardiovascular Exam: Present: regular rate, normal rhythm, normal heart sounds. Absent: systolic murmur, diastolic murmur, rubs, gallop, clicks GI/Abdominal exam: Present: soft, normal bowel sounds. Absent: distended, tenderness, guarding, rebound, rigid Extremities exam: Present: normal inspection, full ROM, normal capillary refill. Absent: tenderness, pedal edema, joint swelling, calf tenderness Back exam: Present: normal inspection Neurological exam: Present: alert, oriented X3, CN II-XII intact Psychiatric exam: Present: normal affect, normal mood Skin exam: Present: warm, dry, intact, normal color. Absent: rash Course Vital Signs 10/13/18 10/13/18 10/13/18 16:23 16:31 17:00 Temperature 98.2 F Pulse Rate 96 96 Respiratory 16 21 Rate Blood Pressure 132/91 137/99 O2 Sat by Pulse 96 95 Oximetry 10/13/18 10/13/18 10/13/18 17:30 18:00 18:30 Temperature Pulse Rate 93 89 93 Respiratory 9 L 14 22 Rate Blood Pressure 137/99 134/85 117/103 O2 Sat by Pulse 96 Oximetry - Reevaluation(s) Reevaluation #1: 10/13/18 19:16 Medical record reviewed including prior cardiac history Reevaluation #2: 10/13/18 19:16 Patient remains a chest pain Chest Pain MDM - MDM 38 male history of STEMI coming in for chest pain. Patient be admitted for cardiology evaluation chest pain observation Critical Care Time Critical Care Time: Yes Total Critical Care Time: 31 Disposition Clinical Impression: Chest pain Disposition: ADMITTED IP TO THIS [facility] Condition: Undetermined Is patient prescribed a controlled substance at d/c from ED?: No Referrals: Amrit Dan MD [Primary Care Provider] - 1-2 days
[2018-10-13 16:53] LABS: Basophils # (A) 0.1 k/uL (0-0.2); Basophils % (A) 2 %; Eosinophils # (A) 0.2 k/uL (0-0.7); Eosinophils % (A) 3 %; HCT 43.9 % (39.0-53.0); HGB 14.4 gm/dL (13.0-17.5); Hypochromasia Slight; Lymphocytes # (A) 1.9 k/uL (1.0-4.8); Lymphocytes % (A) 28 %; MCH 27.7 pg (25.0-35.0); MCHC 32.9 g/dL (31.0-37.0); MCV 84.1 fL (80.0-100.0); Mean Platelet Volume 7.6; Monocytes # (A) 0.5 k/uL (0-1.0); Monocytes % (A) 7 %; Neutrophils # (A) 4.1 k/uL (1.3-7.7); Neutrophils % (A) 60 %; Platelet Count 251 k/uL (150-450); Poikilocytosis Slight; RBC 5.22 m/uL (4.30-5.90); RDW 13.8 % (11.5-15.5); WBC 6.9 k/uL (3.8-10.6)
[2018-10-13 17:01] LABS: Albumin 3.2 g/dL (3.5-5.0); Calcium 8.2 mg/dL (8.4-10.2); Magnesium 1.9 mg/dL (1.6-2.3); Potassium 4.5 mmol/L (3.5-5.1); Total Bilirubin 0.6 mg/dL (0.2-1.3); Total Protein 5.8 g/dL (6.3-8.2)
[2018-10-13 17:02] LABS: INR 1.1 (<1.2); Prothrombin Time 11.3 sec (9.0-12.0)
--- NOTE | 2018-10-13 17:47 | XR ---
EXAMINATION: XR chest 2V DATE AND TIME: 10/13/2018 4:59 PM CLINICAL INDICATION: PHH; Chest Pain TECHNIQUE: Departmental protocol COMPARISON: 04/08/2018 FINDINGS: Cardiac pacemaker and EKG leads. Mildly enlarged cardiac silhouette. The lungs are clear. The pleural spaces are negative. The skeletal structures and soft tissues are negative for acute findings. IMPRESSION: No acute radiographic process.
[2018-10-13] MEDS ORDERED: MORPHINE SULFATE 4 MG/ML SYRINGE IVP STA (18:38)
[2018-10-13] MEDS ORDERED: HEPARIN SODIUM,PORCINE 5,000 UNIT/ML 1 ML VIAL IV ONE (19:13)
[2018-10-13] MEDS ORDERED: ASPIRIN 81 MG PO STA (19:13)
[2018-10-13] MEDS ORDERED: NITROGLYCERIN SL TABS 0.4 MG TAB SUBLINGUAL PRN (19:13)
[2018-10-13] MEDS ORDERED: HEPARIN SOD,PORK IN 0.45% NACL 25,000 UNIT in 0.45% NACL 1 250ML.BAG IV SCH (19:15)
[2018-10-13 20:48] LABS: Glucose,Whole Blood 179 mg/dL (75-99)
[2018-10-13] MEDS ORDERED: BACLOFEN 10 MG TAB PO PRN (21:34)
[2018-10-13] MEDS: METOPROLOL TARTRATE 25 MG TAB PO SCH (22:06)
[2018-10-14] MEDS: HEPARIN SODIUM,PORCINE 5,000 UNIT/ML 1 ML VIAL IV PRN ×2 (02:24→10:47)
[2018-10-14 06:57] LABS: Glucose,Whole Blood 168 mg/dL (75-99)
[2018-10-14] MEDS ORDERED: FUROSEMIDE 10 MG/ML 4 ML VIAL IV STA (08:06)
[2018-10-14 08:36] LABS: Mean Platelet Volume 8.1; Platelet Count 259 k/uL (150-450)
[2018-10-14 08:49] LABS: D-Dimer 1.11 mg/L FEU (<0.60)
[2018-10-14] MEDS ORDERED: ASPIRIN 325 MG TAB PO SCH (09:00)
[2018-10-14] MEDS ORDERED: ATORVASTATIN 80 MG TAB PO SCH (09:00)
[2018-10-14 09:03] LABS: Cholesterol 119 mg/dL (<200); HDL Cholesterol 21 mg/dL (40-60); LDL Cholesterol,Calculated 78 mg/dL (0-99); Triglycerides 102 mg/dL (<150)
[2018-10-14] MEDS ORDERED: LISINOPRIL 2.5 MG TAB PO SCH (09:30)
[2018-10-14] MEDS ORDERED: SACUBITRIL/VALSARTAN 24 MG-26 MG TABLET PO SCH (10:15)
--- NOTE | 2018-10-14 10:26 | P.CRDCN ---
History of Present Illness History of present illness: This is a pleasant 38-year-old male past medical history significant for multivessel coronary artery disease, ischemic cardiomyopathy status post AICD placement, hypertension, dyslipidemia, chronic systolic heart failure, obstructive sleep apnea and former nicotine dependence. We have been asked to see him in consultation secondary to chest discomfort. He states for the previous 4 days he has been feeling increasing shortness of breath at rest as well as with activity, most significant while lying flat. He has been out of his Lasix and Aldactone for the last couple weeks. He has noticed some mild change in his weight of approximately 2 pounds he complains of increased abdominal girth. He has some associated tightness in his chest when he is having a difficult time breathing. There is no radiation of the pain to the arm, back, neck or jaw. He denies associated nausea, vomiting, diaphoresis, dizziness or palpitations. EKG reveals sinus mechanism, right axis deviation and poor R-wave progression. Consistent with previous EKGs with no acute changes noted. Chest x-ray is negative for an acute cardiopulmonary process. Laboratory data reviewed, WBC 6.9, hemoglobin 14.4, platelets 259, d-dimer 1.11, sodium 139, potassium 4.5, creatinine 1.21 with a GFR 76, cardiac enzymes negative 3, proBNP 1340, LDL 78 and HDL 21. Current cardiac medications include Aldactone 25 mg daily, lisinopril 2.5 mg daily, Lasix 40 mg daily, carvedilol 3.125 mg daily, atorvastatin 80 mg daily and aspirin 81 mg daily. Most recent echocardiogram obtained April 2018 reveals impaired LV systolic function with ejection fraction 20-25%, moderately dilated left atrium, mild to moderate mitral regurgitation, moderate tricuspid regurgitation and severe pulmonary hypertension with an RVSP of 61 mmHg. At the time of my exam: CONSTITUTIONAL: Denies fever. Denies chills. EYES: Denies blurred vision. Denies vision changes. Denies eye pain. EARS, NOSE, MOUTH & THROAT: Denies headache. Denies sore throat. Denies ear pain. CARDIOVASCULAR: Denies chest pain. Complains of shortness of breath. Complains of orthopnea. Denies PND. Denies palpitations. RESPIRATORY: Denies cough. GASTROINTESTINAL: Denies abdominal pain. Denies diarrhea. Denies constipation. Denies nausea. Denies vomiting. MUSCULOSKELETAL: Denies myalgias. INTEGUMENTARY: Denies pruitis. Denies rash. NEUROLOGIC: Denies numbness. Denies tingling. Denies weakness. PSYCHIATRIC: Denies anxiety. Denies depression. ENDOCRINE: Denies fatigue. Denies weight change. Denies polydipsia. Denies polyurina. GENITOURINARY: Denies burning, hematuria or urgency with micturation. HEMATOLOGIC: Denies history of anemia. Denies bleeding. Blood pressure 116/87 heart rate 92 afebrile maintaining oxygen saturation on room air GENERAL: This is a 38-year-old male in no apparent distress at the time of my examination. HEENT: Head is atraumatic, normocephalic. Pupils are equal, round. Sclerae anicteric. Conjunctivae are clear. Mucous membranes of the mouth are moist. Neck is supple. There is no jugular venous distention. No carotid bruit is heard. LUNGS: Clear to auscultation no wheezes, rales or rhonchi. No chest wall tenderness is noted on palpation or with deep breathing. HEART: Regular rate and rhythm with systolic ejection murmur at the left sternal border, no rubs or gallops. S1 and S2 heard. ABDOMEN: Soft, nontender. Bowel sounds are heard. No organomegaly noted. EXTREMITIES: 1+ pitting edema to the right lower extremity, no edema to the left. No o calf tenderness, redness or warmth noted. VASCULAR: Radial and dorsalis pedis pulses palpated, no evidence of clubbing. NEUROLOGIC: Patient is awake, alert and oriented x3. ASSESSMENT Acute on chronic systolic heart failure Ischemic cardiomyopathy status post AICD placement Coronary artery disease Hypertension Dyslipidemia Diabetes mellitus Obstructive sleep apnea Pulmonary hypertension, severe RVSP 61 mmHg Morbid obesity, BMI 44 PLAN An acute coronary event has been ruled out. Will discontinue heparin once CT and doppler are negative. We requested a d-dimer which came to be elevated. Obtain stat CT angios chest and venous Doppler of the right lower extremity. We will ask case management to check coverage Entresto 24/26 mg twice a day. Initiate from tomorrow and hold lisinopril. Last dose was yesterday. Initiate on lasix IV 40 mg BID. Follow kidney function and electrolytes in the morning. Document accurate intake and output along with daily weights. Further recommendations to follow based on clinical course. Thank you kindly for this consultation. Nurse Practitioner note has been reviewed, I agree with a documented findings and plan of care. Patient was seen and examined. Past Medical History Past Medical History: Coronary Artery Disease (CAD), Chest Pain / Angina, Heart Failure, Diabetes Mellitus, Hyperlipidemia, Hypertension, Myocardial Infarction (ND), Sleep Apnea/CPAP/BIPAP, Syncope Additional Past Medical History / Comment(s): Cardiiomyopathy with AICD, IDDM t ype II, neuropathy bilateral feet, SP with Cpap use, migraines, chronic back pain. Last Myocardial Infarction Date:: 2015 History of Any Multi-Drug Resistant Organisms: None Reported Past Surgical History: AICD, Heart Catheterization, Heart Catheterization With Stent Additional Past Surgical History / Comment(s): 10/27/12 AICD, DFTs, PCI with stent Past Anesthesia/Blood Transfusion Reactions: No Reported Reaction Date of Last Stent Placement:: 02/03/16 Type of Cardiac Device: AICD Device Placement Date:: 2012 Past Psychological History: Anxiety Additional Psychological History / Comment(s): Pt resides with his sister. He is unemployed. He drives. He has a glucometer, Cpap and a scale. Smoking Status: Former smoker Past Alcohol Use History: None Reported Additional Past Alcohol Use History / Comment(s): Pt started smoking in 1995 and quit in 2016. He smoked 0.5ppd. Past Drug Use History: None Reported - Past Family History Mother Family Medical History: No Reported History Additional Family Medical History / Comment(s): Mother is healthy Brother(s) Family Medical History: Myocardial Infarction (ND) Additional Family Medical History / Comment(s): Brother of a ND at the age of 35yrs. Father Family Medical History: Liver Disease Additional Family Medical History / Comment(s): Father when pt was 19 yrs old from liver disease. He was an alcoholic. Medications and Allergies Home Medications Medication Instructions Recorded Confirmed Type Atorvastatin [Lipitor] 80 mg PO HS #30 tab 02/06/16 10/13/18 Rx Nitroglycerin Sl Tabs [Nitrostat] 0.4 mg SUBLINGUAL Q5M PRN #25 tab 02/06/16 10/13/18 Rx Albuterol Inhaler [Ventolin Hfa 1 - 2 puff INHALATION RT-Q6H PRN 05/05/18 History Inhaler] Insulin Glargine,Hum.rec.anlog 120 units SQ QAM 05/05/18 10/13/18 History [Zackaglmelvin Bonepen U-100] Furosemide [Lasix] 40 mg PO DAILY #30 tab 05/07/18 10/13/18 Rx Spironolactone [Aldactone] 25 mg PO DAILY #30 tab 05/07/18 10/13/18 Rx Aspirin EC [Ecotrin Low Dose] 81 mg PO DAILY 10/13/18 10/13/18 History Carvedilol [Coreg] 3.125 mg PO DAILY 10/13/18 10/13/18 History Ibuprofen [Motrin] 800 mg PO DAILY 10/13/18 10/13/18 History Lisinopril [Zestril] 2.5 mg PO DAILY 10/13/18 10/13/18 History Allergies Allergy/AdvReac Type Severity Reaction Status Date / Time Penicillins Allergy Unknown Verified 10/13/18 17:11 Childhood Physical Exam Vitals: Vital Signs Temp Pulse Pulse Resp BP BP Pulse Ox 10/14/18 04:00 97.5 F L 87 16 142/87 100 10/13/18 23:35 91 16 10/13/18 23:16 98.3 F 91 16 134/83 99 10/13/18 20:56 97.8 F 92 16 110/81 94 L 10/13/18 20:55 20 10/13/18 20:00 89 12 10/13/18 19:30 86 15 102/83 97 10/13/18 19:00 92 14 126/98 10/13/18 18:30 93 22 117/103 10/13/18 18:00 89 14 134/85 10/13/18 17:30 93 9 L 137/99 96 10/13/18 17:00 137/99 10/13/18 16:31 96 21 95 10/13/18 16:23 98.2 F 96 16 132/91 96 Intake and Output 10/13/18 10/14/18 10/14/18 22:59 06:59 14:59 Intake Total 350 67.66 Balance 350 67.66 Intake: Amount of Fluid Infused ( 200 ml) Intake, IV Titration 67.66 Amount Heparin Sod,Pork in 0.45% 67.66 NaCl 25,000 unit In 0.45 % NaCl 1 250ml.bag @ 6. 846 UNITS/KG/HR 9.999 mls /hr IV .Q24H [facility] Rx#: [id number] Oral 150 Other: # Voids 1 Weight 146.057 kg Results 10/14/18 08:15 10/13/18 10:44 Cardiac Enzymes 10/13/18 10/13/18 10/13/18 Range/Units 10:44 10:44 19:54 AST 24 (17-59) U/L Troponin I <0.012 <0.012 (0.000-0.034) ng/mL 10/14/18 Range/Units 01:53 AST (17-59) U/L Troponin I <0.012 (0.000-0.034) ng/mL Coagulation 10/13/18 10/14/18 Range/Units 10:44 01:54 PT 11.3 (9.0-12.0) sec APTT 24.0 26.2 (22.0-30.0) sec CBC 10/13/18 Range/Units 10:44 WBC 6.9 (3.8-10.6) k/uL RBC 5.22 (4.30-5.90) m/uL Hgb 14.4 (13.0-17.5) gm/dL Hct 43.9 (39.0-53.0) % Plt Count 251 (150-450) k/uL Comprehensive Metabolic Panel 10/13/18 Range/Units 10:44 Sodium 139 (137-145) mmol/L Potassium 4.5 (3.5-5.1) mmol/L Chloride 109 H (98-107) mmol/L Carbon Dioxide 19 L (22-30) mmol/L BUN 33 H (9-20) mg/dL Creatinine 1.21 (0.66-1.25) mg/dL Glucose 322 H (74-99) mg/dL Calcium 8.2 L (8.4-10.2) mg/dL AST 24 (17-59) U/L ALT 23 (21-72) U/L Alkaline Phosphatase 105 (38-126) U/L Total Protein 5.8 L (6.3-8.2) g/dL Albumin 3.2 L (3.5-5.0) g/dL Current Medications Generic Name Dose Route Start Last Admin Trade Name Freq PRN Reason Stop Dose Admin Aspirin 325 mg 10/14/18 09:00 Aspirin PO DAILY [facility] Atorvastatin Calcium 80 mg 10/14/18 09:00 Lipitor PO DAILY [facility] Baclofen 10 mg 10/13/18 21:34 10/13/18 22:31 Lioresal PO 10 mg QID PRN Administration Muscle Spasm Heparin Sodium (Porcine) 0 unit 10/13/18 19:13 10/14/18 02:24 Heparin IV 4,000 unit Q6HR PRN Administration Low PTT Protocol Heparin Sodium/Sodium Chloride 250 mls @ 9.999 mls/hr 10/13/18 19:15 10/14/18 02:18 25,000 unit/ Sodium Chloride IV 9.846 units/kg/hr .Q24H [facility] 14.381 mls/hr Titration Protocol 6.846 UNITS/KG/HR Insulin Detemir 120 unit 10/14/18 09:00 Levemir SQ DAILY [facility] Metoprolol Tartrate 25 mg 10/13/18 21:00 10/13/18 22:06 Lopressor PO Not Given BID [facility] Nitroglycerin 0.4 mg 10/13/18 19:13 Nitrostat SUBLINGUAL Q5M PRN Chest Pain Intake and Output 10/13/18 10/14/18 10/14/18 22:59 06:59 14:59 Intake Total 350 67.66 Balance 350 67.66 Intake: Amount of Fluid Infused ( 200 ml) Intake, IV Titration 67.66 Amount Heparin Sod,Pork in 0.45% 67.66 NaCl 25,000 unit In 0.45 % NaCl 1 250ml.bag @ 6. 846 UNITS/KG/HR 9.999 mls /hr IV .Q24H [facility] Rx#: [id number] Oral 150 Other: # Voids 1 Weight 146.057 kg 10/13/18 10:44 10/13/18 10:44
--- NOTE | 2018-10-14 10:48 | US ---
EXAMINATION TYPE: US venous doppler duplex LE RT DATE OF EXAM: 10/14/2018 10:20 AM COMPARISON: NONE CLINICAL HISTORY: swelling elevated d-dimer. Right ankle edema SIDE PERFORMED: Right TECHNIQUE: The lower extremity deep venous system is examined utilizing real time linear array sonog lakeisha with graded compression, doppler sonography and color-flow sonography. VESSELS IMAGED: Common Femoral Vein Deep Femoral Vein Greater Saphenous Vein * Femoral Vein Popliteal Vein Small Saphenous Vein * Proximal Calf Veins (* superficial vessels) Grayscale, color doppler, spectral doppler imaging performed of the deep veins of the right lower ext remity aerated There is normal flow, compressibility, vascular waveforms. Right Leg: Negative for DVT, however, poor phasic characteristic is noted at right CFV. Right ankle edema channels are noted. IMPRESSION: No sonographic evidence of deep venous thrombosis within the right lower extremity. Sugg estion of venous insufficiency within the right lower extremity and right lower extremity dependent e saeed.
--- NOTE | 2018-10-14 11:01 | CT ---
EXAMINATION TYPE: CT angio chest DATE OF EXAM: 10/14/2018 COMPARISON: 05/05/2018 HISTORY: SOB, elevated D-Dimer CT DLP: 1146.8 mGycm CONTRAST: CT chest with contrast and 3D reconstruction with MIP imaging is performed with IV Contrast, patient injected with 100 mL of Isovue 370. Contrast-enhanced CT of the chest was performed through the course of the pulmonary arteries with slim g and mediastinal window settings submitted. 3D reconstruction with MIP imaging was also performed. PULMONARY ARTERIES: The pulmonary arteries and their major tributaries are patent. I do not see bernice dence for sizable filling defect to suggest pulmonary embolic process. LUNGS: The lungs are clear and free of infiltrate. No evidence for atelectasis. No pulmonary nodule or mass is detected. No pleural effusion. MEDIASTINUM: Thoracic aorta is of normal caliber,however, evaluation is limited given timing of the contrast bolus. If there is concern for thoracic aortic pathology consider TAYLOR. Correlate clinicall y . The heart is enlarged. No evidence for mediastinal mass. No mediastinal lymph nodes greater eunice n 1cm. HILAR STRUCTURES: No evidence for mass. No hilar lymph nodes greater than 1 cm. UPPER ABDOMEN: No significant abnormality is seen. IMPRESSION: 1. No evidence for Pulmonary embolism at this time.
[2018-10-14] MEDS: SPIRONOLACTONE 25 MG TAB PO SCH (11:22)
[2018-10-14] MEDS: INSULIN DETEMIR (LEVEMIR) 100 UNIT/ML SYR SQ SCH (11:22)
[2018-10-14] MEDS ORDERED: NITROGLYCERIN SL TABS 0.4 MG TAB SUBLINGUAL PRN (11:23)
[2018-10-14 11:29] LABS: Glucose,Whole Blood 151 mg/dL (75-99)
[2018-10-14] MEDS: INSULIN ASPART (NovoLOG) 100 UNIT/ML VIAL SQ SCH ×2 (12:16→17:08)
--- NOTE | 2018-10-14 16:09 | ECHOF ---
Referral Reason:elevTrop MEASUREMENTS -------- HEIGHT: 180.3 cm WEIGHT: 146.1 kg BP: 142/87 RVIDd: 4.5 cm (< 3.3) IVSd: 1.2 cm (0.6 - 1.1) LVIDd: 5.7 cm (3.9 - 5.3) LVPWd: 1.2 cm (0.6 - 1.1) IVSs: 1.2 cm LVIDs: 5.1 cm LVPWs: 1.8 cm LAESV Index (A-L): 38.23 ml/m Ao Diam: 3.2 cm (2.0 - 3.7) AV Cusp: 2.3 cm (1.5 - 2.6) LA Diam: 5.6 cm (2.7 - 3.8) MV EXCURSION: 10.412 mm (> 18.000) MV EF SLOPE: 98 mm/s (70 - 150) EPSS: 1.9 cm MV E Andres: 0.96 m/s MV DecT: 89 ms MV A Andres: 0.23 m/s MV E/A Ratio: 4.23 RAP: 20.00 mmHg RVSP: 51.04 mmHg FINDINGS -------- Sinus rhythm. This was a technically difficult study with suboptimal views. Morbid Obesity The left ventricular size is normal. There is mild concentric left ventricular hypertrophy. There is moderate global hypokinesis of LV . Overall left ventricular systolic function is severely impa ired with, an EF between 25 - 30 %. The right ventricle is severely enlarged. LA is moderately dilated 34-39 ml/m2 The right atrial size is normal. Electronic pacemaker lead seen in the right atrial cavity. 5.0mg of Lumason was utilized for enhancement of images Interatrial and interventricular septum intact. The aortic valve is trileaflet and appears structurally normal. Moderate mitral regurgitation is present. Moderate to severe tricuspid regurgitation present. There is moderate pulmonary hypertension. The right ventricular systolic pressure, as measured by Doppler, is 51.04mmHg. There is no pulmonic regurgitation present. The aortic root size is normal. The inferior vena cava is mildly dilated. There is no pericardial effusion. CONCLUSIONS -------- 1. Sinus rhythm. 2. This was a technically difficult study with suboptimal views. 3. Morbid Obesity 4. The left ventricular size is normal. 5. There is mild concentric left ventricular hypertrophy. 6. There is moderate global hypokinesis of LV . 7. Overall left ventricular systolic function is severely impaired with, an EF between 25 - 30 %. 8. LA is moderately dilated 34-39 ml/m2 9. The right atrial size is normal. 10. Electronic pacemaker lead seen in the right atrial cavity. 11. 5.0mg of Lumason was utilized for enhancement of images 12. Interatrial and interventricular septum intact. 13. The aortic valve is trileaflet and appears structurally normal. 14. Moderate mitral regurgitation is present. 15. Moderate to severe tricuspid regurgitation present. 16. There is moderate pulmonary hypertension. 17. The right ventricular systolic pressure, as measured by Doppler, is 51.04mmHg. 18. There is no pulmonic regurgitation present. 19. The aortic root size is normal. 20. The inferior vena cava is mildly dilated. 21. There is no pericardial effusion. DIRECT CUSTOMER SERVICE REPRESENTATIVE: Helen Simental RDCS
[2018-10-14 16:57] LABS: Glucose,Whole Blood 140 mg/dL (75-99)
[2018-10-14 19:34] LABS: Hemoglobin A1C 10.3 % (4.0-6.0)
--- NOTE | 2018-10-14 20:12 | PN ---
PROGRESS NOTE CHIEF COMPLAINT: Chest pain. HISTORY OF PRESENT ILLNESS: This gentleman is not having any further chest discomfort. Blood sugars are significantly elevated. Because of his prior history of significant heart problems, he will be referred to Cardiology. REVIEW OF SYSTEMS: Otherwise normal. PHYSICAL EXAMINATION: Chest is clear. Cardiac exam is normal. Abdomen is soft and protuberant. IMPRESSION: 1. Chest pain. 2. History of coronary artery disease with probable myocardial infarction, coronary artery stenting and placement of ICD. PLAN: 1. Serial EKGs and enzymes. 2. Cardiology consult. MMODL / IJN: [id number] /
--- NOTE | 2018-10-14 20:18 | HP ---
HISTORY AND PHYSICAL CHIEF COMPLAINT: Chest pain. HISTORY OF PRESENT ILLNESS: This is another admission for this 38-year-old obese Latin male. He came to the emergency room with chest pain. He has a history of hypertension and poorly controlled type 2 NIDDM. In 2018, he had myocardial infarction and was catheterized and a stent placed. He has subsequently had an ICD placed. He came to the emergency room and developed a burning anterior chest discomfort. Troponin was negative. REVIEW OF SYSTEMS: He denies any syncope, focal neurologic deficits, change in vision hearing, cough, hemoptysis, pleurisy, orthopnea, PND. He was slightly diaphoretic and short of breath. He had no nausea, vomiting. He had no abdominal pain, hematemesis, melena, hematochezia, history of liver disease, dysuria, hematuria, renal failure, etc. Past medical history, family history and personal and social histories reveal: ALLERGIES: PENICILLIN. MEDICATIONS: He is on carvedilol 3.125 once a day, ibuprofen 800 q.i.d. p.r.n., metformin 1 g once a day, lisinopril 2.5 once a day, Basaglar 120 units once a day, vitamin D 50,000 units a month, nitroglycerin. He does not have a history of heart disease. SOCIAL HISTORY: There is alcoholism. He used to smoke but he has quit. PHYSICAL EXAMINATION: VITAL SIGNS: Blood pressure 160/98, pulse 74 and regular, respirations 16. He is afebrile. GENERAL he appeared to be obese and in no acute distress. SKIN: Color is normal. Skin is warm, dry. Lymph nodes not enlarged. HEENT: Head, ears, eyes, nose, mouth, and throat were normal. Carotids normal. Chest is clear. Cardiac exam demonstrates sinus rhythm and no murmurs or extra sounds. Abdomen is soft and nontender and it was protuberant. Extremities: Normal. Neurological: He is intact. ASSESSMENT: He is admitted to the hospital with diagnoses of: 1. Chest pain. 2. History of coronary artery disease with previous myocardial infarction and stenting. 3. Uncontrolled insulin-dependent diabetes mellitus. 4. Morbid obesity. PLAN: 1. Bed rest. 2. IV fluids. 3. Serial EKGs and enzymes. 4. Try to control blood sugars while in the hospital. 5. Cardiology consult. MMODL / IJN: [id number] /
[2018-10-14 20:26] LABS: Glucose,Whole Blood 139 mg/dL (75-99)
[2018-10-14] MEDS: ATORVASTATIN 80 MG TAB PO SCH (20:48)
[2018-10-14] MEDS: FUROSEMIDE 10 MG/ML 4 ML VIAL IV SCH (20:48)
[2018-10-14] MEDS: METOPROLOL TARTRATE 25 MG TAB PO SCH (22:58)
[2018-10-15 06:42] LABS: Glucose,Whole Blood 103 mg/dL (75-99)
[2018-10-15] MEDS: CARVEDILOL 3.125 MG TAB PO SCH (08:38)
[2018-10-15] MEDS: FUROSEMIDE 10 MG/ML 4 ML VIAL IV SCH ×2 (08:38→20:55)
[2018-10-15] MEDS: SPIRONOLACTONE 25 MG TAB PO SCH (08:38)
[2018-10-15] MEDS: INSULIN DETEMIR (LEVEMIR) 100 UNIT/ML SYR SQ SCH (08:38)
[2018-10-15] MEDS: ASPIRIN 81 MG PO SCH (08:38)
[2018-10-15] MEDS: INSULIN ASPART (NovoLOG) 100 UNIT/ML VIAL SQ SCH ×3 (08:39→17:25)
[2018-10-15] MEDS ORDERED: ASPIRIN 81 MG PO SCH (09:00)
[2018-10-15] MEDS ORDERED: FUROSEMIDE 40 MG TAB PO SCH (09:00)
[2018-10-15] MEDS ORDERED: SACUBITRIL/VALSARTAN 24 MG-26 MG TABLET PO SCH (09:00)
[2018-10-15] MEDS ORDERED: INSULIN GLARGINE HUM REC ANLOG 120 UNIT SQ SCH (09:00)
--- NOTE | 2018-10-15 10:18 | P.PN ---
Subjective This is a pleasant 38-year-old male past medical history significant for multivessel coronary artery disease, ischemic cardiomyopathy status post AICD placement, hypertension, dyslipidemia, chronic systolic heart failure, obstructive sleep apnea and former nicotine dependence. We have been asked to see him in consultation secondary to chest discomfort. He states for the previous 4 days he has been feeling increasing shortness of breath at rest as well as with activity, most significant while lying flat. He has been out of his Lasix and Aldactone for the last couple weeks. He has noticed some mild change in his weight of approximately 2 pounds he complains of increased abdominal girth. He has some associated tightness in his chest when he is having a difficult time breathing. There is no radiation of the pain to the arm, back, neck or jaw. He denies associated nausea, vomiting, diaphoresis, dizziness or palpitations. 10/15/2018 Pt is seen and examined sitting up in bed in no acute distress. He states his breathing is starting to improve since admission, not completely back to baseline. He states his abdominal fullness seems to have improved. No further chest discomfort. Currently being diuresed with IV lasix 40 mg BID. Entresto will be started today. Last dose of lisinopril was 10/13/2018. Blood pressure 114/82 heart rate 95 afebrile and maintaining oxygen saturation on room air. Laboratory data pending. Blood pressure 116/87 heart rate 92 afebrile maintaining oxygen saturation on room air GENERAL: This is a 38-year-old male in no apparent distress at the time of my examination. HEENT: Head is atraumatic, normocephalic. Pupils are equal, round. Sclerae anicteric. Conjunctivae are clear. Mucous membranes of the mouth are moist. Neck is supple. There is no jugular venous distention. No carotid bruit is heard. LUNGS: Clear to auscultation no wheezes, rales or rhonchi. No chest wall tenderness is noted on palpation or with deep breathing. HEART: Regular rate and rhythm with systolic ejection murmur at the left sternal border, no rubs or gallops. S1 and S2 heard. ABDOMEN: Soft, nontender. Bowel sounds are heard. No organomegaly noted. EXTREMITIES: Trace pitting edema to the right lower extremity improved from yesterday, no edema to the left. No o calf tenderness, redness or warmth noted. ASSESSMENT Acute on chronic systolic heart failure Ischemic cardiomyopathy status post AICD placement Coronary artery disease Hypertension Dyslipidemia Diabetes mellitus Obstructive sleep apnea Pulmonary hypertension, severe RVSP 61 mmHg Morbid obesity, BMI 44 PLAN Continue IV diuresis for another 24 hours. Follow blood pressure closely with initiation of Entresto. Check renal function and electrolytes in the morning. Nurse Practitioner note has been reviewed, I agree with a documented findings and plan of care. Patient was seen and examined. Objective - Vital Signs Vital signs: Vital Signs Temp 97.5 F L 10/15/18 07:15 Pulse 95 10/15/18 07:15 Resp 18 10/15/18 07:15 BP 114/82 10/15/18 07:15 Pulse Ox 98 10/15/18 07:15 Intake & Output 10/14/18 10/15/18 10/15/18 18:59 06:59 18:59 Intake Total 1979.718 240 Output Total 250 1300 625 Balance 1729.718 -1300 -385 Weight 153.541 kg Intake: Intake, IV Titration 122.718 Amount Heparin Sod,Pork in 0.45% 122.718 NaCl 25,000 unit In 0.45 % NaCl 1 250ml.bag @ 6. 846 UNITS/KG/HR 9.999 mls /hr IV .Q24H [facility] Rx#: [id number] Oral 1857 240 Output: Urine 250 1300 625 Other: Voiding Method Toilet Toilet Toilet # Voids 1 - Labs CBC & Chem 7: 10/14/18 08:15 10/13/18 10:44 Labs: Abnormal Lab Results - Last 24 Hours (Table) 10/14/18 10/14/18 10/14/18 Range/Units 08:15 11:27 16:54 POC Glucose (mg/dL) 151 H 140 H (75-99) mg/dL Hemoglobin A1c 10.3 H (4.0-6.0) % 10/14/18 10/15/18 Range/Units 20:13 06:40 POC Glucose (mg/dL) 139 H 103 H (75-99) mg/dL Hemoglobin A1c (4.0-6.0) % Microbiology - Last 24 Hours (Table) 10/13/18 12:00 Gram Stain - Preliminary Ear - Left Wound Culture - Preliminary Presumptive Staph aureus
[2018-10-15 10:19] LABS: African American GFR (CKD) >90 (>60 ml/min/1.73 sqM); Anion Gap 15 mmol/L; Blood Urea Nitrogen 30 mg/dL (9-20); Calcium 9.1 mg/dL (8.4-10.2); Carbon Dioxide 22 mmol/L (22-30); Chloride 105 mmol/L (98-107); Glucose 145 mg/dL (74-99); Sodium 142 mmol/L (137-145)
[2018-10-15 11:00] VITALS: BMI 47.2
[2018-10-15 11:44] LABS: Glucose,Whole Blood 138 mg/dL (75-99)
[2018-10-15 16:39] LABS: Glucose,Whole Blood 169 mg/dL (75-99)
--- NOTE | 2018-10-15 17:14 | PN ---
PROGRESS NOTE CHIEF COMPLAINT: Chest pain, shortness of breath, congestive heart failure and uncontrolled diabetes. HISTORY OF PRESENT ILLNESS: This gentleman is feeling better. He is less short of breath. He is not having any pain. He has been seen by Cardiology and medications are being changed and they would like to hold it for another day. PHYSICAL EXAM: Chest is quite clear, but there were only scattered rales at the bases. Cardiac exam is normal. Abdomen is protuberant. IMPRESSION: 1. Chest pain. 2. History of coronary artery disease. 3. Congestive heart failure. 4. Morbid obesity. 5. Uncontrolled diabetes. PLAN: Continue to adjust medications to manage his congestive heart failure as well as his diabetes. Significant amount of time spent talking to him about the need for taking better care of himself in terms of nutrition, weight loss, exercise and proper use of his insulin. MYLES / PATITO: [id number] /
[2018-10-15 20:19] LABS: Glucose,Whole Blood 272 mg/dL (75-99)
[2018-10-15] MEDS: ATORVASTATIN 80 MG TAB PO SCH (20:55)
[2018-10-16 06:37] LABS: Glucose,Whole Blood 172 mg/dL (75-99)
[2018-10-16 07:44] LABS: African American GFR (CKD) >90 (>60 ml/min/1.73 sqM); Anion Gap 8 mmol/L; Blood Urea Nitrogen 23 mg/dL (9-20); Calcium 8.4 mg/dL (8.4-10.2); Carbon Dioxide 29 mmol/L (22-30); Chloride 105 mmol/L (98-107); Glucose 164 mg/dL (74-99); Potassium 3.8 mmol/L (3.5-5.1); Sodium 142 mmol/L (137-145)
[2018-10-16 07:53] VITALS: RESP 18
[2018-10-16] MEDS: INSULIN DETEMIR (LEVEMIR) 100 UNIT/ML SYR SQ SCH (08:20)
[2018-10-16] MEDS: INSULIN ASPART (NovoLOG) 100 UNIT/ML VIAL SQ SCH ×3 (08:20→17:32)
[2018-10-16] MEDS: SPIRONOLACTONE 25 MG TAB PO SCH (08:21)
[2018-10-16] MEDS: FUROSEMIDE 10 MG/ML 4 ML VIAL IV SCH (08:21)
[2018-10-16] MEDS: ASPIRIN 81 MG PO SCH (08:21)
[2018-10-16] MEDS: CARVEDILOL 3.125 MG TAB PO SCH (08:21)
[2018-10-16 11:41] LABS: Glucose,Whole Blood 236 mg/dL (75-99)
--- NOTE | 2018-10-16 11:48 | P.PN ---
Subjective This is a pleasant 38-year-old male past medical history significant for multivessel coronary artery disease, ischemic cardiomyopathy status post AICD placement, hypertension, dyslipidemia, chronic systolic heart failure, obstructive sleep apnea and former nicotine dependence. We have been asked to see him in consultation secondary to chest discomfort. He states for the previous 4 days he has been feeling increasing shortness of breath at rest as well as with activity, most significant while lying flat. He has been out of his Lasix and Aldactone for the last couple weeks. He has noticed some mild change in his weight of approximately 2 pounds he complains of increased abdominal girth. He has some associated tightness in his chest when he is having a difficult time breathing. There is no radiation of the pain to the arm, back, neck or jaw. He denies associated nausea, vomiting, diaphoresis, dizziness or palpitations. 10/15/2018 Pt is seen and examined sitting up in bed in no acute distress. He states his breathing is starting to improve since admission, not completely back to baseline. He states his abdominal fullness seems to have improved. No further chest discomfort. Currently being diuresed with IV lasix 40 mg BID. Entresto will be started today. Last dose of lisinopril was 10/13/2018. Blood pressure 114/82 heart rate 95 afebrile and maintaining oxygen saturation on room air. Laboratory data pending. 10/16/2018 Shortness of breath has resolved. No exertional dyspnea noted through the night. He states he has been up and ambulating. Peer to peer review with his insurance company performed yesterday and they continue to decline coverage for eliXYZE. Blood pressure 114/81 heart rate 94 afebrile and maintaining oxygen saturation on room air. Laboratory data reviewed, sodium 142, potassium 3.8, creatinine 0.87. GENERAL: This is a 38-year-old male in no apparent distress at the time of my examination. HEENT: Head is atraumatic, normocephalic. Pupils are equal, round. Sclerae anicteric. Conjunctivae are clear. Mucous membranes of the mouth are moist. Neck is supple. There is no jugular venous distention. No carotid bruit is heard. LUNGS: Clear to auscultation no wheezes, rales or rhonchi. No chest wall te nderness is noted on palpation or with deep breathing. HEART: Regular rate and rhythm with systolic ejection murmur at the left sternal border, no rubs or gallops. S1 and S2 heard. ABDOMEN: Soft, nontender. Bowel sounds are heard. No organomegaly noted. EXTREMITIES: Trace pitting edema to the right lower extremity improved from yesterday, no edema to the left. No o calf tenderness, redness or warmth noted. ASSESSMENT Acute on chronic systolic heart failure. Improved. Ischemic cardiomyopathy status post AICD placement Coronary artery disease Hypertension Dyslipidemia Diabetes mellitus Obstructive sleep apnea Pulmonary hypertension, severe RVSP 61 mmHg Morbid obesity, BMI 44 PLAN Transition to PO diuretics, 40 mg daily. Continue aldactone, coreg, atorvastatin and aspirin as previously ordered. Initiate on losartan 25 mg daily. Follow up in the office with Dr. Hernandez in 2 weeks. Further evaluation of the entresto prior authorization will continue as an outpatient depending on his tolerance of losartan. Medication compliance as well as outpatient follow up imperative and reinforced with the patient. Low sodium diet recommended. Nurse Practitioner note has been reviewed, I agree with a documented findings and plan of care. Patient was seen and examined. Objective - Vital Signs Vital signs: Vital Signs Temp 97.5 F L 10/16/18 07:15 Pulse 94 10/16/18 07:15 Resp 18 10/16/18 07:15 BP 114/81 10/16/18 07:15 Pulse Ox 93 L 10/16/18 07:15 Intake & Output 10/15/18 10/16/18 10/16/18 18:59 06:59 18:59 Intake Total 240 440 240 Output Total 1475 675 Balance -1235 -235 240 Weight 153.541 kg Intake: Oral 240 440 240 Output: Urine 1475 675 Other: Voiding Method Toilet Toilet - Labs CBC & Chem 7: 10/14/18 08:15 10/16/18 07:13 Labs: Abnormal Lab Results - Last 24 Hours (Table) 10/15/18 10/15/18 10/15/18 Range/Units 11:38 16:38 20:15 BUN (9-20) mg/dL Glucose (74-99) mg/dL POC Glucose (mg/dL) 138 H 169 H 272 H (75-99) mg/dL 10/16/18 10/16/18 10/16/18 Range/Units 06:35 07:13 11:39 BUN 23 H (9-20) mg/dL Glucose 164 H (74-99) mg/dL POC Glucose (mg/dL) 172 H 236 H (75-99) mg/dL Microbiology - Last 24 Hours (Table) 10/13/18 12:00 Gram Stain - Preliminary Ear - Left Wound Culture - Preliminary Staphylococcus aureus
[2018-10-16 12:10] VITALS: TEMP 97.7
--- NOTE | 2018-10-16 13:29 | PN ---
PROGRESS NOTE CHIEF COMPLAINT: Congestive heart failure, chest pain, CAD. HISTORY OF PRESENT ILLNESS: This gentleman is doing well and he is not short of breath. He is being followed by Cardiology. It sounds as though they want to put him on Entresto, which was apparently, not covered by his insurance. He indicates that he believes Cardiology will be releasing him this afternoon. REVIEW OF SYSTEMS: He denies any chest pain, shortness of breath, fever, chills, hemoptysis, etc. PHYSICAL EXAM: Chest is clear. Cardiac exam is normal. The abdomen is protuberant and soft. Extremities are normal. Neurologically, he is intact. IMPRESSION: 1. Acute congestive heart failure. 2. Chronic congestive heart failure. 3. Atherosclerotic cardiomyopathy. 4. Coronary artery disease. 5. History of ICD implantation. 6. Uncontrolled diabetes. PLAN: Progress activity and possibly home later today. MMODL / RADHAN: [id number] /
[2018-10-16 15:56] VITALS: BP 124/89; PULSE 76
[2018-10-16] MEDS ORDERED: FUROSEMIDE 40 MG TAB PO SCH (16:00)
[2018-10-16 17:08] LABS: Glucose,Whole Blood 144 mg/dL (75-99)
[2018-10-17] MEDS ORDERED: LOSARTAN 25 MG TAB PO SCH (09:00)
--- NOTE | 2018-10-17 22:46 | DS ---
DISCHARGE SUMMARY DATE OF ADMISSION: 10/13/2018 DATE OF DISCHARGE: 10/16/2018 CHIEF COMPLAINT: Chest pain, shortness of breath. HISTORY OF PRESENT ILLNESS AND PHYSICAL EXAMINATION: Details of this man's history and physical can be found in the initial workup. LABORATORY STUDIES: While he was in the hospital he had laboratory studies, details of which can be found in the laboratory section of his chart. COURSE IN THE HOSPITAL: After admission he was placed on bedrest, started on intravenous fluids and had serial EKGs and enzymes which were normal. He was seen by Cardiology. He was found to be in congestive heart failure. They had no further recommendations for any further studies, and there were some changes made in his medications. He was doing well and it was felt that he could go home on October 16. He will follow up in several days. FINAL DIAGNOSES: 1. Acute congestive heart failure. 2. Angina pectoris. 3. History of coronary artery disease. 4. Atherosclerotic cardiomyopathy. 5. History of ICD implantation. 6. Uncontrolled diabetes mellitus. OPERATIONS: None. CONSULTATION: Cardiology. He is improved. MMODL / RADHAN: [id number] /
--- NOTE | 2018-10-18 11:28 | CDI ---
Documentation Clarification Form Date: 10/18/2018 11:06:04 AM From: Luci Ramos Phone: Admit Date: 10/15/2018 2:23:00 PM Patient Name: Shaun Roldan Visit Number: [id number] Discharge Date: 10/16/2018 6:27:00 PM ATTENTION: The Clinical Documentation Specialists (CDI) and [facility] Coding Staff appreciate your assistance in clarifying documentation. Please respond to the clarification below the line at the bottom and electronically sign. The CDI & [facility] Coding staff will review the response and follow-up if needed. Please note: Queries are made part of the Legal Health Record. If you have any questions, please contact the author of this message via ITS. Dr. Amrit Dan The patient has documented uncontrolled diabetes, as indicated on progress note dated 10-15. Blood sugars ranged 169, 272, 172, 236, 144. History/Risk Factors: Acute exacerbation of CHF, CAD, AICD status. Treatment: Insulin In order to capture the severity of Illness and necessary documentation specificity, please clarify: DM Type 2 uncontrolled with hyperglycemia DM Type 2 uncontrolled with hypoglycemia Other, please specify Unable to Determine MTDD
--- NOTE | 2018-10-31 22:32 | MISC ---
MISCELLANOUS REPORT QUERY: 1. Type 2, uncontrolled, with hyperglycemia. MMODL / IJN: [id number] /
== END 2018-10-16 18:27 | disposition home or self-care (01) | DRG 292 ==
LOC: EC 16:22 → 1SOBS 19:13 → OBSVTOIN 10-15 14:23
PROVIDERS: ADMIT Family Medicine; ATTEND Family Medicine
DX: I11.0 Hypertensive heart disease with heart failure (principal); Z68.41 Body mass index [BMI] 40.0-44.9, adult; E66.01 Morbid (severe) obesity due to excess calories; E78.5 Hyperlipidemia, unspecified; F10.20 Alcohol dependence, uncomplicated; G47.33 Obstructive sleep apnea (adult) (pediatric); I08.1 Rheumatic disorders of both mitral and tricuspid valves; E11.65 Type 2 diabetes mellitus with hyperglycemia; E11.40 Type 2 diabetes mellitus with diabetic neuropathy, unspecified; I25.119 Atherosclerotic heart disease of native coronary artery with unspecified angina pectoris; I25.2 Old myocardial infarction; I25.5 Ischemic cardiomyopathy; I27.20 Pulmonary hypertension, unspecified; I50.23 Acute on chronic systolic (congestive) heart failure; Z79.4 Long term (current) use of insulin; Z79.82 Long term (current) use of aspirin; Z79.899 Other long term (current) drug therapy; Z82.49 Family history of ischemic heart disease and other diseases of the circulatory system; Z95.5 Presence of coronary angioplasty implant and graft; Z95.810 Presence of automatic (implantable) cardiac defibrillator; Z87.891 Personal history of nicotine dependence; Z88.0 Allergy status to penicillin; Z99.89 Dependence on other enabling machines and devices
CPT/HCPCS: 36415; 71046; 71275; 80048; 80053; 80061; 83036; 83690; 83735; 83880; 84484; 85025; 85049; 85379; 85610; 85730; 87070; 87077; 87186; 87205; 93005; 93306; 96361; 96365; 96375; 99291

== ENCOUNTER 2018-10-23 20:31 | Emergency (ER) | payer OTHER ==
--- NOTE | 2018-10-23 21:09 | ED ---
Chest Pain HPI - General Chief Complaint: Chest Pain Stated Complaint: CP, DEANNA Source: patient, family Mode of arrival: ambulatory Limitations: no limitations - History of Present Illness Initial Comments: 's patient is a 38-year-old man with history of previous CHF who presents with complaint that he believes he is developing that again. He states that starting about 2 days ago he started to notice that he was short of breath when he was lying flat. This is been getting a little bit worse over the past couple of days. Starting last night he also was having some chest tightness, that he mainly feels in the substernal area. The patient states his symptoms are worse if he lies flat, better if he tries sitting up. He has not noted other worsening or relieving factors. No other associated symptoms. Patient states that he believes he has gained about 10 pounds over the past week or so. MD Complaint: chest pain, other (Dyspnea) Onset/Timin -: days(s) Onset: during rest Pain Location: substernal Pain Radiation: none Severity: mild Quality: tightness Consistency: constant Improves With: nothing Worsens With: nothing Treatments Prior to Arrival: none - Related Data On Oral Contraceptives: No Home Medications Medication Instructions Recorded Confirmed Albuterol Inhaler [Ventolin Hfa 1 - 2 puff INHALATION RT-Q6H PRN 05/05/18 10/23/18 Inhaler] Insulin Glargine,Hum.rec.anlog 120 units SQ QAM 05/05/18 10/23/18 [Basaglar Kwikpen U-100] Aspirin EC [Ecotrin Low Dose] 81 mg PO DAILY 10/13/18 10/23/18 Ibuprofen [Motrin] 800 mg PO DAILY 10/13/18 10/23/18 INSULIN ASPART (NovoLOG) [NovoLOG 15 unit SQ AC-TID 10/23/18 10/23/18 (formulary)] Previous Rx's Medication Instructions Recorded Atorvastatin [Lipitor] 80 mg PO HS #90 tab 10/16/18 Carvedilol [Coreg] 3.125 mg PO DAILY #180 tab 10/16/18 Furosemide [Lasix] 40 mg PO BID@0900,1600 #180 tab 10/16/18 Losartan [Cozaar] 25 mg PO DAILY #90 tab 10/16/18 Nitroglycerin Sl Tabs [Nitrostat] 0.4 mg SUBLINGUAL Q5M PRN #20 tab 10/16/18 Spironolactone [Aldactone] 25 mg PO DAILY #90 tab 10/16/18 Losartan [Cozaar] 50 mg PO DAILY #20 tab 10/24/18 Allergies Allergy/AdvReac Type Severity Reaction Status Date / Time Penicillins Allergy Unknown Verified 10/23/18 21:55 Childhood Review of Systems ROS Statement: Those systems with pertinent positive or pertinent negative responses have been documented in the HPI. ROS Other: All systems not noted in ROS Statement are negative. Constitutional: Denies: fever, chills Respiratory: Reports: as per HPI, dyspnea. Denies: cough, wheezes, hemoptysis Cardiovascular: Reports: as per HPI, chest pain, orthopnea. Denies: palpitations, edema, syncope Gastrointestinal: Denies: abdominal pain, nausea, vomiting, diarrhea, constipation, melena, hematochezia Genitourinary: Denies: dysuria, hematuria Musculoskeletal: Denies: back pain Skin: Denies: rash Neurological: Denies: headache, weakness EKG Findings - EKG Comments: EKG Findings:: Possible old anteroseptal infarct. Low-voltage QRS complexes - EKG Results: EKG: interpreted by ERMD, sinus rhythm (With occasional PVC), normal axis EKG shows: tachycardia (Rate approximately 14 bpm) Past Medical History Past Medical History: Coronary Artery Disease (CAD), Chest Pain / Angina, Heart Failure, Diabetes Mellitus, Hyperlipidemia, Hypertension, Myocardial Infarction (NC), Sleep Apnea/CPAP/BIPAP, Syncope Additional Past Medical History / Comment(s): Cardiiomyopathy with AICD, IDDM type II, neuropathy bilateral feet, SP with Cpap use, migraines, chronic back pain. Last Myocardial Infarction Date:: 2015 History of Any Multi-Drug Resistant Organisms: None Reported Past Surgical History: AICD, Heart Catheterization, Heart Catheterization With Stent Additional Past Surgical History / Comment(s): 10/27/12 AICD, DFTs, PCI with stent Past Anesthesia/Blood Transfusion Reactions: No Reported Reaction Date of Last Stent Placement:: 02/03/16 Type of Cardiac Device: AICD Device Placement Date:: 2012 Past Psychological History: Anxiety Smoking Status: Former smoker Past Alcohol Use History: None Reported Past Drug Use History: None Reported - Past Family History Mother Family Medical History: No Reported History Additional Family Medical History / Comment(s): Mother is healthy Brother(s) Family Medical History: Myocardial Infarction (NC) Additional Family Medical History / Comment(s): Brother of a NC at the age of 35yrs. Father Family Medical History: Liver Disease Additional Family Medical History / Comment(s): Father when pt was 19 yrs old from liver disease. He was an alcoholic. General Exam Limitations: no limitations General appearance: alert, in no apparent distress Head exam: Present: atraumatic, normocephalic Eye exam: Present: normal appearance. Absent: scleral icterus, conjunctival injection Neck exam: Present: normal inspection Respiratory exam: Present: normal lung sounds bilaterally, rales (Bilateral bases). Absent: respiratory distress, wheezes, rhonchi, stridor, accessory muscle use, decreased breath sounds, prolonged expiratory Cardiovascular Exam: Present: regular rate, normal rhythm, normal heart sounds. Absent: systolic murmur, diastolic murmur, rubs, gallop GI/Abdominal exam: Present: soft. Absent: distended, tenderness, guarding, rebound, rigid, mass Extremities exam: Present: normal inspection, normal capillary refill. Absent: pedal edema, calf tenderness Back exam: Present: normal inspection. Absent: CVA tenderness (R), CVA tenderness (L) Neurological exam: Present: alert Skin exam: Present: warm, dry, intact, normal color. Absent: rash Course Vital Signs 10/23/18 10/23/18 10/23/18 20:35 21:02 21:03 Temperature 99.4 F Pulse Rate 104 H 100 Respiratory 20 18 Rate Blood Pressure 123/86 132/99 O2 Sat by Pulse 96 94 L 95 Oximetry 10/23/18 10/23/18 10/23/18 21:15 22:40 23:20 Temperature 98.5 F Pulse Rate 102 H 101 H 101 H Respiratory 18 19 18 Rate Blood Pressure 144/107 119/92 112/92 O2 Sat by Pulse 95 96 95 Oximetry 10/23/18 10/24/18 23:44 00:25 Temperature Pulse Rate 97 98 Respiratory 17 19 Rate Blood Pressure 98/69 90/59 O2 Sat by Pulse 96 95 Oximetry Disposition Clinical Impression: Chest pain Disposition: HOME SELF-CARE Condition: Fair Instructions (If sedation given, give patient instructions): Chest Pain (ED) Prescriptions: Losartan [Cozaar] 50 mg PO DAILY #20 tab Is patient prescribed a controlled substance at d/c from ED?: No Referrals: Amrit Dan MD [Primary Care Provider] - 1-2 days
[2018-10-23 22:08] LABS: Basophils # (A) 0.2 k/uL (0-0.2); Basophils % (A) 2 %; Eosinophils # (A) 0.2 k/uL (0-0.7); Eosinophils % (A) 2 %; HCT 46.2 % (39.0-53.0); HGB 14.8 gm/dL (13.0-17.5); Hypochromasia Slight; Lymphocytes # (A) 2.3 k/uL (1.0-4.8); Lymphocytes % (A) 26 %; MCH 26.3 pg (25.0-35.0); MCV 82.2 fL (80.0-100.0); Mean Platelet Volume 7.8; Monocytes # (A) 0.5 k/uL (0-1.0); Monocytes % (A) 6 %; Neutrophils # (A) 5.3 k/uL (1.3-7.7); Neutrophils % (A) 61 %; Platelet Count 257 k/uL (150-450); Poikilocytosis Slight; RBC 5.63 m/uL (4.30-5.90); RDW 14.1 % (11.5-15.5); WBC 8.7 k/uL (3.8-10.6)
[2018-10-23 22:17] LABS: ALT 23 U/L (21-72); AST 17 U/L (17-59); African American GFR (CKD) >90 (>60 ml/min/1.73 sqM); Albumin 3.6 g/dL (3.5-5.0); Alkaline Phosphatase 100 U/L (38-126); Amylase <30 U/L (30-110); Anion Gap 12 mmol/L; Blood Urea Nitrogen 30 mg/dL (9-20); Calcium 8.4 mg/dL (8.4-10.2); Carbon Dioxide 22 mmol/L (22-30); Chloride 105 mmol/L (98-107); Glucose 257 mg/dL (74-99); Lipase 39 U/L (23-300); Magnesium 1.6 mg/dL (1.6-2.3); Sodium 139 mmol/L (137-145); Total Bilirubin 1.1 mg/dL (0.2-1.3); Total Protein 6.2 g/dL (6.3-8.2)
[2018-10-23 22:22] LABS: INR 1.1 (<1.2); Partial Thromboplastin Time 23.5 sec (22.0-30.0); Prothrombin Time 11.6 sec (9.0-12.0)
--- NOTE | 2018-10-23 22:31 | XR ---
EXAM: XR Chest, 2 Views CLINICAL HISTORY: Chest Pain TECHNIQUE: Frontal and lateral views of the chest. COMPARISON: 10/13/18 FINDINGS: Lungs: Unremarkable. No consolidation. Pleural space: Unremarkable. No pneumothorax. Heart: Unremarkable. No cardiomegaly. Mediastinum: Unremarkable. Bones/joints: Unremarkable. Tubes, lines and devices: Left pacer is again noted. IMPRESSION: No acute findings or substantial change.
[2018-10-23 22:34] LABS: D-Dimer 0.64 mg/L FEU (<0.60)
[2018-10-23] MEDS ORDERED: MORPHINE SULFATE 4 MG/ML SYRINGE IV STA (22:43)
[2018-10-23] MEDS ORDERED: NITROGLYCERIN OINT 1 INCH/GM PACKET TOPICAL STA (22:44)
--- NOTE | 2018-10-24 00:14 | CT ---
EXAM: CT Angiography Chest With Intravenous Contrast CLINICAL HISTORY: pain, DEANNA, elevated d-dimer TECHNIQUE: Axial computed tomographic angiography images of the chest with intravenous contrast using pulmonary embolism protocol. DLP is 1121.5 mGy-cm. This CT exam was performed using one or more of the following dose reduction techniques: automated exposure control, adjustment of the mA and/or kV according to patient size, and/or use of iterative reconstruction technique. MIP reconstructed images were created and reviewed. Coronal and sagittal reformatted images were created and reviewed. COMPARISON: 10/13/18 FINDINGS: Pulmonary arteries: No pulmonary embolism. No thoracic aortic aneurysm or dissection. Aorta: No acute findings. No thoracic aortic aneurysm. Lungs: No mass. No consolidation. Subtle diffuse septal thickening. Pleural space: Unremarkable. No significant effusion. No pneumothorax. Heart: Unremarkable. No cardiomegaly. No significant pericardial effusion. No evidence of RV dysfunction. Bones/joints: No acute fracture. No dislocation. Soft tissues: Unremarkable. Lymph nodes: Unremarkable. No enlarged lymph nodes. Intraperitoneal space: Trace of free fluid surrounding the liver and spleen. Tubes, lines and devices: Left pacer is in place. Other findings: Subtle diffuse septal thickening. IMPRESSION: 1. Trace of free fluid surrounding the liver and spleen. 2. No pulmonary embolism. No thoracic aortic aneurysm or dissection. 3. Subtle diffuse septal thickening.
[2018-10-24 01:25] VITALS: BP 140/99; PULSE 96; RESP 18; TEMP 97.9
== END 2018-10-24 01:25 | disposition home or self-care (01) ==
LOC: EC 20:31
DX: R07.89 Other chest pain (principal); R07.2 Precordial pain; R06.02 Shortness of breath; R06.01 Orthopnea; I25.10 Atherosclerotic heart disease of native coronary artery without angina pectoris; I11.0 Hypertensive heart disease with heart failure; I50.9 Heart failure, unspecified; I25.2 Old myocardial infarction; G47.30 Sleep apnea, unspecified; E11.40 Type 2 diabetes mellitus with diabetic neuropathy, unspecified; G47.33 Obstructive sleep apnea (adult) (pediatric); M54.9 Dorsalgia, unspecified; G89.29 Other chronic pain; Z87.891 Personal history of nicotine dependence; Z99.89 Dependence on other enabling machines and devices; Z95.810 Presence of automatic (implantable) cardiac defibrillator; Z95.5 Presence of coronary angioplasty implant and graft; Z98.890 Other specified postprocedural states; Z79.1 Long term (current) use of non-steroidal anti-inflammatories (NSAID); Z79.4 Long term (current) use of insulin; Z79.82 Long term (current) use of aspirin; Z88.0 Allergy status to penicillin
CPT/HCPCS: 36415; 93005; 85379; 83880; 80053; 82150; 83690; 83735; 84484; 85025; 85610; 85730; 71046; 71275; 99285; 96374; J2270; Q9967

== ENCOUNTER 2018-10-26 13:40 | Emergency (ER) | payer OTHER ==
[2018-10-26 13:43] VITALS: TEMP 97.9
--- NOTE | 2018-10-26 14:13 | ED ---
General Adult HPI - General Chief complaint: Shortness of Breath Stated complaint: DEANNA Time Seen by Provider: 10/26/18 13:47 Source: patient Mode of arrival: ambulatory Limitations: no limitations - History of Present Illness Initial comments: Patient is a 38-year-old male with a history of IA, hyperlipidemia, hypertension, diabetes who presents with a chief complaint of shortness of breath and abdominal pain. Patient says he was evaluated for this in the October and has not felt better after discharge. He identify inciting incident. Regarding his shortness of breath, he states that his symptoms are worse when lying flat, and with exertion. He characterizes his abdominal pain as a tightness. He states this is unchanged since the October. There are no other aggravating or alleviating factors. Timing is constant. He denies fever, chills, nausea or vomiting. He states his stools are normal though he has not a bowel movement in 2 days. - Related Data Home Medications Medication Instructions Recorded Confirmed Albuterol Inhaler [Ventolin Hfa 1 - 2 puff INHALATION RT-Q6H PRN 05/05/18 0 10/26/18 Inhaler] Insulin Glargine,Hum.rec.anlog 120 units SQ QAM 05/05/18 10/26/18 [Basaglar Kwikpen U-100] Aspirin EC [Ecotrin Low Dose] 81 mg PO DAILY 10/13/18 10/26/18 Ibuprofen [Motrin] 800 mg PO DAILY 10/13/18 10/26/18 INSULIN ASPART (NovoLOG) [NovoLOG 15 unit SQ AC-TID 10/23/18 10/26/18 (formulary)] Previous Rx's Medication Instructions Recorded Atorvastatin [Lipitor] 80 mg PO HS #90 tab 10/16/18 Carvedilol [Coreg] 3.125 mg PO DAILY #180 tab 10/16/18 Furosemide [Lasix] 40 mg PO BID@0900,1600 #180 tab 10/16/18 Nitroglycerin Sl Tabs [Nitrostat] 0.4 mg SUBLINGUAL Q5M PRN #20 tab 10/16/18 Spironolactone [Aldactone] 25 mg PO DAILY #90 tab 10/16/18 Losartan [Cozaar] 50 mg PO DAILY #20 tab 10/24/18 Allergies Allergy/AdvReac Type Severity Reaction Status Date / Time Penicillins Allergy Unknown Verified 10/26/18 13:47 Childhood Review of Systems ROS Statement: Those systems with pertinent positive or pertinent negative responses have been documented in the HPI. ROS Other: All systems not noted in ROS Statement are negative. Cardiovascular: Reports: dyspnea on exertion Gastrointestinal: Reports: abdominal pain Past Medical History Past Medical History: Coronary Artery Disease (CAD), Chest Pain / Angina, Heart Failure, Diabetes Mellitus, Hyperlipidemia, Hypertension, Myocardial Infarction (IA), Sleep Apnea/CPAP/BIPAP, Syncope Additional Past Medical History / Comment(s): Cardiiomyopathy with AICD, IDDM type II, neuropathy bilateral feet, SP with Cpap use, migraines, chronic back pain. Last Myocardial Infarction Date:: 2015 History of Any Multi-Drug Resistant Organisms: None Reported Past Surgical History: AICD, Heart Catheterization, Heart Catheterization With Stent Additional Past Surgical History / Comment(s): 10/27/12 AICD, DFTs, PCI with stent Past Anesthesia/Blood Transfusion Reactions: No Reported Reaction Date of Last Stent Placement:: 02/03/16 Type of Cardiac Device: AICD Device Placement Date:: 2012 Past Psychological History: Anxiety Smoking Status: Former smoker Past Alcohol Use History: None Reported Past Drug Use History: None Reported - Past Family History Mother Family Medical History: No Reported History Additional Family Medical History / Comment(s): Mother is healthy Brother(s) Family Medical History: Myocardial Infarction (IA) Additional Family Medical History / Comment(s): Brother of a IA at the age of 35yrs. Father Family Medical History: Liver Disease Additional Family Medical History / Comment(s): Father when pt was 19 yrs old from liver disease. He was an alcoholic. General Exam Limitations: no limitations General appearance: alert, in no apparent distress Head exam: Present: atraumatic, normocephalic Eye exam: Present: normal appearance ENT exam: Present: normal exam Neck exam: Present: normal inspection Respiratory exam: Present: normal lung sounds bilaterally. Absent: respiratory distress, wheezes Cardiovascular Exam: Present: regular rate, normal rhythm GI/Abdominal exam: Present: soft, tenderness (Mild tenderness to palpation). Absent: distended Rectal exam: Present: deferred Extremities exam: Present: normal inspection Back exam: Present: normal inspection Neurological exam: Present: alert, oriented X3 Psychiatric exam: Present: normal affect, normal mood Skin exam: Present: warm, dry, intact Course Vital Signs 10/26/18 13:42 Temperature 97.9 F Pulse Rate 98 Respiratory 18 Rate Blood Pressure 134/99 O2 Sat by Pulse 95 Oximetry Medical Decision Making - Medical Decision Making Patient presents with a chief complaint of shortness of breath and abdominal pain. On initial evaluation, vitals are stable, patient is in no acute distress. Review of recent visit on October 23 shows an unremarkable workup including a CTA of the chest. Patient will be evaluated today with basic labs including cardiac enzymes, chest x-ray, and CT of the abdomen and pelvis as his previous CTA showed trace fluid around the liver. EKG performed at 1403 shows normal sinus rhythm with a rate of 94 bpm, segments are within normal limits, no acute signs of ischemia present. 15:43 Lab evaluation of this patient shows hyperglycemia without other acute process. CXR shows no acute process. CT reviewed, there is ascites, but no evidence of infectious process. CT interpretation states that there is subcutaneous edema, but there does not appear to be any infectious process. WBCs are normal, re- evaluation of the abdominal skin does not show any erythema, fluctuance, or pain with palpation. low suspicion for infectious process like necrotizing fasciitis at this time, rather favor fluid overload as he does have a history of CHF. I discussed the findings with the patient. He has follow up with his director building on the , I instructed him to increase his lasix from 40 mg to 60 mg for the next two doses and to avoid salt and restrict fluid intake. I gave the patient explicit instructions to return to the ED immediately if he experiences symptoms such as fever, nausea, vomiting, or increased abdominal pain, swelling, or redness. patient verbalizes understanding. follow up with PCP in 1-2 days. - Lab Data Result diagrams: 10/26/18 14:05 10/26/18 14:05 Lab Results 10/26/18 10/26/18 10/26/18 Range/Units 14:05 14:05 14:05 WBC 8.1 (3.8-10.6) k/uL RBC 5.76 (4.30-5.90) m/uL Hgb 15.0 (13.0-17.5) gm/dL Hct 46.8 (39.0-53.0) % MCV 81.2 (80.0-100.0) fL MCH 26.0 (25.0-35.0) pg MCHC 32.1 (31.0-37.0) g/dL RDW 14.4 (11.5-15.5) % Plt Count 257 (150-450) k/uL Neutrophils % 61 % Lymphocytes % 25 % Monocytes % 8 % Eosinophils % 3 % Basophils % 1 % Neutrophils # 4.9 (1.3-7.7) k/uL Lymphocytes # 2.0 (1.0-4.8) k/uL Monocytes # 0.6 (0-1.0) k/uL Eosinophils # 0.3 (0-0.7) k/uL Basophils # 0.1 (0-0.2) k/uL Hypochromasia Slight Poikilocytosis Slight Sodium 139 (137-145) mmol/L Potassium 4.7 (3.5-5.1) mmol/L Chloride 106 (98-107) mmol/L Carbon Dioxide 24 (22-30) mmol/L Anion Gap 9 mmol/L BUN 29 H (9-20) mg/dL Creatinine 1.00 (0.66-1.25) mg/dL Est GFR (CKD-EPI)AfAm >90 (>60 ml/min/1.73 sqM) Est GFR (CKD-EPI)NonAf >90 (>60 ml/min/1.73 sqM) Glucose 283 H (74-99) mg/dL Calcium 9.2 (8.4-10.2) mg/dL Total Bilirubin 1.3 (0.2-1.3) mg/dL AST 19 (17-59) U/L ALT 24 (21-72) U/L Alkaline Phosphatase 112 (38-126) U/L Troponin I (0.000-0.034) ng/mL NT-Pro-B Natriuret Pep 1300 pg/mL Total Protein 6.2 L (6.3-8.2) g/dL Albumin 3.5 (3.5-5.0) g/dL Lipase 52 (23-300) U/L 10/26/18 Range/Units 14:05 WBC (3.8-10.6) k/uL RBC (4.30-5.90) m/uL Hgb (13.0-17.5) gm/dL Hct (39.0-53.0) % MCV (80.0-100.0) fL MCH (25.0-35.0) pg MCHC (31.0-37.0) g/dL RDW (11.5-15.5) % Plt Count (150-450) k/uL Neutrophils % % Lymphocytes % % Monocytes % % Eosinophils % % Basophils % % Neutrophils # (1.3-7.7) k/uL Lymphocytes # (1.0-4.8) k/uL Monocytes # (0-1.0) k/uL Eosinophils # (0-0.7) k/uL Basophils # (0-0.2) k/uL Hypochromasia Poikilocytosis Sodium (137-145) mmol/L Potassium (3.5-5.1) mmol/L Chloride (98-107) mmol/L Carbon Dioxide (22-30) mmol/L Anion Gap mmol/L BUN (9-20) mg/dL Creatinine (0.66-1.25) mg/dL Est GFR (CKD-EPI)AfAm (>60 ml/min/1.73 sqM) Est GFR (CKD-EPI)NonAf (>60 ml/min/1.73 sqM) Glucose (74-99) mg/dL Calcium (8.4-10.2) mg/dL Total Bilirubin (0.2-1.3) mg/dL AST (17-59) U/L ALT (21-72) U/L Alkaline Phosphatase (38-126) U/L Troponin I <0.012 (0.000-0.034) ng/mL NT-Pro-B Natriuret Pep pg/mL Total Protein (6.3-8.2) g/dL Albumin (3.5-5.0) g/dL Lipase (23-300) U/L Disposition Clinical Impression: CHF exacerbation, Abdominal pain, Edema, Ascites Disposition: HOME SELF-CARE Condition: Good Instructions (If sedation given, give patient instructions): Abdominal Pain (ED), Low-Sodium Diet (ED) Is patient prescribed a controlled substance at d/c from ED?: No Referrals: Amrit Dan MD [Primary Care Provider] - 1-2 days
--- NOTE | 2018-10-26 14:21 | XR ---
EXAMINATION TYPE: XR chest 2V DATE OF EXAM: 10/26/2018 COMPARISON: 10/23/2018 HISTORY: Short of breath TECHNIQUE: Frontal and lateral views of the chest are obtained. FINDINGS: There is no heart failure nor confluent pneumonic infiltrate. There is a left axillary pac emaker. There is no pleural effusion. Bony thorax is intact. IMPRESSION: No active cardiopulmonary disease. No change. Stable mild cardiomegaly.
[2018-10-26 14:32] LABS: ALT 24 U/L (21-72); AST 19 U/L (17-59); African American GFR (CKD) >90 (>60 ml/min/1.73 sqM); Albumin 3.5 g/dL (3.5-5.0); Alkaline Phosphatase 112 U/L (38-126); Anion Gap 9 mmol/L; Blood Urea Nitrogen 29 mg/dL (9-20); Calcium 9.2 mg/dL (8.4-10.2); Carbon Dioxide 24 mmol/L (22-30); Chloride 106 mmol/L (98-107); Glucose 283 mg/dL (74-99); Lipase 52 U/L (23-300); Potassium 4.7 mmol/L (3.5-5.1); Sodium 139 mmol/L (137-145); Total Bilirubin 1.3 mg/dL (0.2-1.3); Total Protein 6.2 g/dL (6.3-8.2)
[2018-10-26 14:42] LABS: Basophils # (A) 0.1 k/uL (0-0.2); Basophils % (A) 1 %; Eosinophils # (A) 0.3 k/uL (0-0.7); Eosinophils % (A) 3 %; HCT 46.8 % (39.0-53.0); Hypochromasia Slight; Lymphocytes % (A) 25 %; MCHC 32.1 g/dL (31.0-37.0); MCV 81.2 fL (80.0-100.0); Mean Platelet Volume 7.5; Monocytes # (A) 0.6 k/uL (0-1.0); Monocytes % (A) 8 %; Neutrophils # (A) 4.9 k/uL (1.3-7.7); Neutrophils % (A) 61 %; Platelet Count 257 k/uL (150-450); Poikilocytosis Slight; RBC 5.76 m/uL (4.30-5.90); RDW 14.4 % (11.5-15.5); WBC 8.1 k/uL (3.8-10.6)
--- NOTE | 2018-10-26 15:19 | CT ---
EXAMINATION TYPE: CT abdomen pelvis w con DATE OF EXAM: 10/26/2018 COMPARISON: None HISTORY: abdominal tightness CT DLP: 2204.4 mGycm Automated exposure control for dose reduction was used. TECHNIQUE: Helical acquisition of images was performed from the lung bases through the pelvis. CONTRAST: Performed without Oral Contrast and with IV Contrast, patient injected with 100 mL of Isovue 300. FINDINGS: Lung bases are clear. There is no pleural effusion. Heart size is normal. Liver and spleen appear normal. Bile ducts are not dilated. There is some fluid around the gallbladde r. There is fluid around the spleen and in the paracolic gutters. There is no evidence of pancreatic mass. There is no adrenal mass. Kidneys show satisfactory contrast opacification. There is no hydronephrosi s. There is no retroperitoneal adenopathy. Ureters are not dilated. Bladder distends smoothly. There is no inguinal hernia. There is no sign of a pelvic mass. I see no intestinal wall thickening. There is diffuse subcutaneous edema around the abdomen. There is no mesenteric adenopathy. There is n o evidence of a bowel obstruction. There is no free air. There is no sign of thickened appendix. Lumbar spine is intact. Bony pelvis appears intact. IMPRESSION: Subcutaneous edema. Mild ascites.
[2018-10-26 16:04] VITALS: BP 138/70; PULSE 88; RESP 16
== END 2018-10-26 16:03 | disposition home or self-care (01) ==
LOC: EC 13:40
DX: I11.0 Hypertensive heart disease with heart failure (principal); I50.9 Heart failure, unspecified; R18.8 Other ascites; R10.9 Unspecified abdominal pain; I25.10 Atherosclerotic heart disease of native coronary artery without angina pectoris; I25.2 Old myocardial infarction; G47.33 Obstructive sleep apnea (adult) (pediatric); E11.65 Type 2 diabetes mellitus with hyperglycemia; I42.9 Cardiomyopathy, unspecified; E11.40 Type 2 diabetes mellitus with diabetic neuropathy, unspecified; M54.9 Dorsalgia, unspecified; G89.29 Other chronic pain; Z87.891 Personal history of nicotine dependence; Z95.810 Presence of automatic (implantable) cardiac defibrillator; Z95.5 Presence of coronary angioplasty implant and graft; Z98.890 Other specified postprocedural states; Z99.89 Dependence on other enabling machines and devices; Z79.1 Long term (current) use of non-steroidal anti-inflammatories (NSAID); Z79.4 Long term (current) use of insulin; Z79.82 Long term (current) use of aspirin; Z88.0 Allergy status to penicillin
CPT/HCPCS: 36415; 93005; 83880; 80053; 83690; 84484; 85025; 71046; 74177; 99285; Q9967

== ENCOUNTER 2018-11-08 20:22 | Observation (INO) | payer OTHER ==
--- NOTE | 2018-11-08 20:31 | ED ---
Chest Pain HPI - General Chief Complaint: Chest Pain Stated Complaint: Chest Pain Time Seen by Provider: 11/08/18 20:27 Source: patient, EMS, RN notes reviewed, old records reviewed Mode of arrival: EMS Limitations: no limitations - History of Present Illness Initial Comments: This is a 30-year-old male the ER for evaluation presented for evaluation heart disease chest pain and CHF. Patient is accepted in transfer from [facility] where he presented with shot shortness of breath and chest pain. No recent change in medications, patient denies travel history fever cough or congestion, no known sick contacts. MD Complaint: chest pain, other (Shortness of breath) -: days(s) Onset: during rest, during exertion Pain Location: substernal Pain Radiation: none Severity: moderate Severity scale (1-10): 4 Quality: tightness, heaviness Consistency: intermittent Improves With: nothing Worsens With: exertion Anginal Symptoms: dyspnea Treatments Prior to Arrival: none - Related Data Home Medications Medication Instructions Recorded Confirmed Albuterol Inhaler [Ventolin Hfa 1 - 2 puff INHALATION RT-Q6H PRN 05/05/18 11/08/18 Inhaler] Insulin Glargine,Hum.rec.anlog 120 units SQ DAILY 05/05/18 11/08/18 [Basaglar Kwikpen U-100] Aspirin EC [Ecotrin Low Dose] 81 mg PO DAILY 10/13/18 11/08/18 Previous Rx's Medication Instructions Recorded Atorvastatin [Lipitor] 80 mg PO HS #90 tab 10/16/18 Carvedilol [Coreg] 3.125 mg PO DAILY #180 tab 10/16/18 Furosemide [Lasix] 40 mg PO BID@0900,1600 #180 tab 10/16/18 Nitroglycerin Sl Tabs [Nitrostat] 0.4 mg SUBLINGUAL Q5M PRN #20 tab 10/16/18 Spironolactone [Aldactone] 25 mg PO DAILY #90 tab 10/16/18 Losartan [Cozaar] 50 mg PO DAILY #20 tab 10/24/18 Allergies Allergy/AdvReac Type Severity Reaction Status Date / Time Penicillins Allergy Unknown Verified 11/08/18 21:16 Childhood Review of Systems ROS Statement: Those systems with pertinent positive or pertinent negative responses have been documented in the HPI. ROS Other: All systems not noted in ROS Statement are negative. Past Medical History Past Medical History: Coronary Artery Disease (CAD), Chest Pain / Angina, Heart Failure, Diabetes Mellitus, Hyperlipidemia, Hypertension, Myocardial Infarction (RI), Sleep Apnea/CPAP/BIPAP, Syncope Additional Past Medical History / Comment(s): Cardiiomyopathy with AICD, IDDM type II, neuropathy bilateral feet, SP with Cpap use, migraines, chronic back pain. Last Myocardial Infarction Date:: 2015 History of Any Multi-Drug Resistant Organisms: None Reported Past Surgical History: AICD, Heart Catheterization, Heart Catheterization With Stent Additional Past Surgical History / Comment(s): 10/27/12 AICD, DFTs, PCI with stent Past Anesthesia/Blood Transfusion Reactions: No Reported Reaction Date of Last Stent Placement:: 02/03/16 Type of Cardiac Device: AICD Device Placement Date:: 2012 Past Psychological History: Anxiety Smoking Status: Former smoker Past Alcohol Use History: None Reported Past Drug Use History: None Reported - Past Family History Mother Family Medical History: No Reported History Additional Family Medical History / Comment(s): Mother is healthy Brother(s) Family Medical History: Myocardial Infarction (RI) Additional Family Medical History / Comment(s): Brother of a RI at the age of 35yrs. Father Family Medical History: Liver Disease Additional Family Medical History / Comment(s): Father when pt was 19 yrs old from liver disease. He was an alcoholic. General Exam Limitations: no limitations General appearance: alert, in no apparent distress Head exam: Present: atraumatic, normocephalic, normal inspection Eye exam: Present: normal appearance, PERRL, EOMI. Absent: scleral icterus, conjunctival injection, periorbital swelling ENT exam: Present: normal exam, mucous membranes moist Neck exam: Present: normal inspection. Absent: tenderness, meningismus, lymphadenopathy Respiratory exam: Present: normal lung sounds bilaterally. Absent: respiratory distress, wheezes, rales, rhonchi, stridor Cardiovascular Exam: Present: regular rate, normal rhythm, normal heart sounds. Absent: systolic murmur, diastolic murmur, rubs, gallop, clicks GI/Abdominal exam: Present: soft, normal bowel sounds. Absent: distended, tenderness, guarding, rebound, rigid Extremities exam: Present: normal inspection, full ROM, normal capillary refill. Absent: tenderness, pedal edema, joint swelling, calf tenderness Back exam: Present: normal inspection Neurological exam: Present: alert, oriented X3, CN II-XII intact Psychiatric exam: Present: normal affect, normal mood Skin exam: Present: warm, dry, intact, normal color. Absent: rash Course Vital Signs 11/08/18 11/08/18 20:24 21:52 Temperature 98.3 F Pulse Rate 101 H 102 H Respiratory 19 16 Rate Blood Pressure 131/97 134/96 O2 Sat by Pulse 97 96 Oximetry - Reevaluation(s) Reevaluation #1: Medical record and transfer paperwork are reviewed Spoke with transferring patient from [facility] regarding records and findings Chest Pain MDM - MDM 38 male except in transfer from her repeat for chest pain and CHF, patient can be admitted for cardiac observation Disposition Clinical Impression: Chest pain, CHF exacerbation, Congestive heart failure Disposition: ADMITTED IP TO THIS HOSP Condition: Fair Is patient prescribed a controlled substance at d/c from ED?: No
[2018-11-08] MEDS: FUROSEMIDE 10 MG/ML 4 ML VIAL IV SCH (21:54)
[2018-11-08 22:21] LABS: Glucose,Whole Blood 246 mg/dL (75-99)
[2018-11-08] MEDS: INSULIN ASPART (NovoLOG) 100 UNIT/ML VIAL SQ SCH (22:56)
[2018-11-09 06:13] LABS: Glucose,Whole Blood 279 mg/dL (75-99)
[2018-11-09] MEDS: INSULIN ASPART (NovoLOG) 100 UNIT/ML VIAL SQ SCH ×4 (06:22→21:09)
[2018-11-09] MEDS ORDERED: INSULIN ASPART (NovoLOG) 100 UNIT/ML VIAL SQ SCH (07:30)
[2018-11-09] MEDS: FUROSEMIDE 10 MG/ML 4 ML VIAL IV SCH ×2 (10:15→21:09)
[2018-11-09 12:02] LABS: Glucose,Whole Blood 224 mg/dL (75-99)
[2018-11-09] MEDS ORDERED: IBUPROFEN 600 MG TAB PO PRN (13:48)
[2018-11-09] MEDS ORDERED: INSULIN DETEMIR (LEVEMIR) 100 UNIT/ML SYR SQ SCH (14:00)
[2018-11-09 14:03] VITALS: BMI 45.2
[2018-11-09] MEDS ORDERED: NITROGLYCERIN SL TABS 0.4 MG TAB SUBLINGUAL PRN (14:41)
[2018-11-09 15:18] LABS: ALT 13 U/L (21-72); AST 11 U/L (17-59); African American GFR (CKD) >90 (>60 ml/min/1.73 sqM); Albumin 3.5 g/dL (3.5-5.0); Alkaline Phosphatase 112 U/L (38-126); Anion Gap 11 mmol/L; Blood Urea Nitrogen 18 mg/dL (9-20); Calcium 8.5 mg/dL (8.4-10.2); Carbon Dioxide 25 mmol/L (22-30); Chloride 100 mmol/L (98-107); Glucose 289 mg/dL (74-99); HCT 44.2 % (39.0-53.0); HGB 14.3 gm/dL (13.0-17.5); MCH 25.7 pg (25.0-35.0); MCHC 32.4 g/dL (31.0-37.0); MCV 79.4 fL (80.0-100.0); Mean Platelet Volume 7.6; Platelet Count 219 k/uL (150-450); Poikilocytosis Slight; Potassium 3.7 mmol/L (3.5-5.1); RBC 5.57 m/uL (4.30-5.90); RDW 15.1 % (11.5-15.5); Sodium 136 mmol/L (137-145); Total Bilirubin 1.8 mg/dL (0.2-1.3); Total Protein 6.3 g/dL (6.3-8.2); WBC 8.6 k/uL (3.8-10.6)
[2018-11-09] MEDS: HEPARIN SODIUM,PORCINE 5,000 UNIT/ML 1 ML VIAL SQ SCH (15:44)
[2018-11-09] MEDS: SPIRONOLACTONE 25 MG TAB PO SCH (15:45)
[2018-11-09] MEDS: LOSARTAN 50 MG TAB PO SCH (15:45)
[2018-11-09] MEDS: CARVEDILOL 3.125 MG TAB PO SCH (15:45)
[2018-11-09 15:53] LABS: Eosinophils # (M) 0.34 k/uL (0-0.7); Lymphocytes # (M) 1.03 k/uL (1.0-4.8); Monocytes # (M) 0.77 k/uL (0-1.0); Neutrophils % (M) 75 %; Nucleated Red Blood Cells 0 /100 WBC (0-0); Total Cells Counted 100
--- NOTE | 2018-11-09 16:19 | XR ---
EXAMINATION TYPE: XR chest 2V DATE OF EXAM: 11/09/2018 COMPARISON: 10/26/2018 HISTORY: Short of breath TECHNIQUE: Frontal and lateral views of the chest are obtained. FINDINGS: There is no heart failure nor confluent pneumonic infiltrate. There is a left axillary pac emaker. Heart is top normal in size. There is no pleural effusion. IMPRESSION: No acute lung disease. No gross heart failure. Heart appears slightly smaller than last exam.
[2018-11-09 17:00] LABS: Glucose,Whole Blood 233 mg/dL (75-99)
--- NOTE | 2018-11-09 19:32 | HP ---
HISTORY AND PHYSICAL CHIEF COMPLAINT: Chest pain, shortness of breath. HISTORY OF PRESENT ILLNESS: This is another recent admission for this 38-year-old obese gentleman who has a longstanding history of coronary artery disease, cardiomyopathy, congestive heart failure, diabetes. He was just in the hospital 2 weeks or so ago. He was at a [employer] when he noticed chest tightness, diaphoresis and shortness of breath. He went to the hospital at [place] and was shipped here. The enzymes are normal. REVIEW OF SYSTEMS: Reveal that he has had no headaches, syncope, cough, hemoptysis, fever, chills, abdominal pain, vomiting, hematemesis, melena, hematochezia, jaundice, renal failure, etc. Past medical history, family history and personal and social histories were unchanged. PHYSICAL EXAMINATION: Blood pressure 153/91 with a pulse of 80, and regular. Respirations of 38 and he is afebrile. In general, he appeared to be overweight and somewhat short of breath. Skin was dry. Head, ears, eyes, nose, mouth, and throat were normal. Neck veins could not be assessed. Chest demonstrated decreased breath sounds. Scattered rales. Occasional rhonchi. Cardiac exam is unremarkable except for an S4. The abdomen was protuberant, soft, nontender. No visceromegaly could be appreciated. Extremities are normal. Neurological is intact. IMPRESSION: 1. Unstable angina pectoris. 2. Coronary artery disease. 3. Acute congestive heart failure. 4. Chronic congestive heart failure. 5. Atherosclerotic cardiomyopathy. 6. Obesity. 7. Poorly controlled diabetes mellitus. PLAN: 1. Bed rest. 2. IV fluids. 3. Serial EKGs and enzymes. 4. Cardiology consult. MMODL / IJN: [id number] /
--- NOTE | 2018-11-09 19:38 | PN ---
PROGRESS NOTE DATE OF SERVICE: 11/09/2018 CHIEF COMPLAINT: Congestive heart failure and unstable angina. HISTORY OF PRESENT ILLNESS: This gentleman is feeling a little bit better. He is breathing more easily. He is not having any further chest pain. PHYSICAL EXAM: Chest is more clear. There are fewer rales and rhonchi. Cardiac exam is normal. The abdomen is protuberant. IMPRESSION: 1. Acute congestive heart failure. 2. Chronic congestive heart failure. 3. Unstable angina. 4. Coronary artery disease. 5. Cardiomyopathy. 6. Insulin-dependent diabetes mellitus. PLAN: Progress activity and await Cardiology recommendations. MMODL / IJN: [id number] /
[2018-11-09 20:25] LABS: Glucose,Whole Blood 274 mg/dL (75-99)
[2018-11-09] MEDS: ATORVASTATIN 80 MG TAB PO SCH (21:10)
[2018-11-10] MEDS: HEPARIN SODIUM,PORCINE 5,000 UNIT/ML 1 ML VIAL SQ SCH ×4 (00:01→23:26)
[2018-11-10 06:32] LABS: Glucose,Whole Blood 172 mg/dL (75-99)
[2018-11-10 07:20] LABS: Glucose,Whole Blood 181 mg/dL (75-99)
[2018-11-10] MEDS: INSULIN DETEMIR (LEVEMIR) 100 UNIT/ML SYR SQ SCH (07:34)
[2018-11-10] MEDS: CARVEDILOL 3.125 MG TAB PO SCH (07:35)
[2018-11-10] MEDS: INSULIN ASPART (NovoLOG) 100 UNIT/ML VIAL SQ SCH ×4 (07:37→21:38)
[2018-11-10] MEDS: FUROSEMIDE 10 MG/ML 4 ML VIAL IV SCH ×2 (08:41→21:38)
[2018-11-10] MEDS: LOSARTAN 50 MG TAB PO SCH (08:41)
[2018-11-10] MEDS: SPIRONOLACTONE 25 MG TAB PO SCH (08:41)
[2018-11-10] MEDS: ASPIRIN 81 MG PO SCH (08:41)
[2018-11-10] MEDS ORDERED: CAFFEINE CITRATE 60 MG/3 ML VIAL IV PRN (09:11)
[2018-11-10] MEDS ORDERED: REGADENOSON 0.4 MG/5 ML SYRINGE IV ONE (09:11)
[2018-11-10] MEDS ORDERED: AMINOPHYLLINE 500 MG/20 ML VIAL IV PRN (09:11)
[2018-11-10] MEDS ORDERED: DIPYRIDAMOLE 70 MG in SODIUM CHLORIDE 0.9% 36 ML IV ONE (09:30)
[2018-11-10 12:15] LABS: Glucose,Whole Blood 205 mg/dL (75-99)
[2018-11-10 14:45] LABS: Hemoglobin A1C 11.4 % (4.0-6.0)
[2018-11-10 16:54] LABS: Glucose,Whole Blood 145 mg/dL (75-99)
[2018-11-10 20:56] LABS: Glucose,Whole Blood 212 mg/dL (75-99)
[2018-11-10] MEDS: ATORVASTATIN 80 MG TAB PO SCH (21:38)
[2018-11-11] MEDS ORDERED: AMINOPHYLLINE 500 MG/20 ML VIAL IV PRN (06:00)
[2018-11-11] MEDS ORDERED: CAFFEINE CITRATE 60 MG/3 ML VIAL IV PRN (06:00)
[2018-11-11 06:03] LABS: Glucose,Whole Blood 147 mg/dL (75-99)
[2018-11-11] MEDS: INSULIN ASPART (NovoLOG) 100 UNIT/ML VIAL SQ SCH ×2 (06:19→11:59)
[2018-11-11] MEDS: INSULIN DETEMIR (LEVEMIR) 100 UNIT/ML SYR SQ SCH (06:19)
[2018-11-11] MEDS: CARVEDILOL 3.125 MG TAB PO SCH (06:53)
[2018-11-11] MEDS ORDERED: DIPYRIDAMOLE 70 MG in SODIUM CHLORIDE 0.9% 36 ML IV ONE (07:00)
[2018-11-11 08:34] VITALS: RESP 18
[2018-11-11 08:54] LABS: African American GFR (CKD) >90 (>60 ml/min/1.73 sqM); Anion Gap 9 mmol/L; Blood Urea Nitrogen 26 mg/dL (9-20); Calcium 8.9 mg/dL (8.4-10.2); Carbon Dioxide 28 mmol/L (22-30); Chloride 103 mmol/L (98-107); Glucose 134 mg/dL (74-99); Magnesium 1.9 mg/dL (1.6-2.3); Potassium 3.9 mmol/L (3.5-5.1); Sodium 140 mmol/L (137-145)
[2018-11-11 09:01] LABS: HCT 48.5 % (39.0-53.0); HGB 15.4 gm/dL (13.0-17.5); Hypochromasia Slight; MCH 25.5 pg (25.0-35.0); MCHC 31.8 g/dL (31.0-37.0); MCV 80.2 fL (80.0-100.0); Mean Platelet Volume 7.5; Platelet Count 243 k/uL (150-450); Poikilocytosis Slight; RBC 6.04 m/uL (4.30-5.90); WBC 7.5 k/uL (3.8-10.6)
[2018-11-11 11:03] LABS: Eosinophils # (M) 0.15 k/uL (0-0.7); Lymphocytes # (M) 2.78 k/uL (1.0-4.8); Monocytes # (M) 0.38 k/uL (0-1.0); Neutrophils % (M) 56 %; Nucleated Red Blood Cells 0 /100 WBC (0-0); Total Cells Counted 100
[2018-11-11 11:04] LABS: Anisocytosis (M) Present; Poikilocytosis (M) Present
[2018-11-11 11:51] VITALS: BP 116/80; PULSE 94; TEMP 97.7
[2018-11-11] MEDS: HEPARIN SODIUM,PORCINE 5,000 UNIT/ML 1 ML VIAL SQ SCH (11:51)
[2018-11-11] MEDS: FUROSEMIDE 10 MG/ML 4 ML VIAL IV SCH (11:52)
[2018-11-11] MEDS: ASPIRIN 81 MG PO SCH (11:52)
[2018-11-11] MEDS: LOSARTAN 50 MG TAB PO SCH (11:52)
[2018-11-11] MEDS: SPIRONOLACTONE 25 MG TAB PO SCH (11:52)
[2018-11-11 12:05] LABS: Glucose,Whole Blood 143 mg/dL (75-99)
--- NOTE | 2018-11-11 12:15 | P.PN ---
Subjective Progress Note Date: 11/11/18 His is a 38-year-old gentleman with history of coronary artery disease, ischemic cardio myopathy with prior AICD, hypertension, hyperlipidemia, chronic systolic congestive heart failure, obstructive sleep apnea, who presented to the hospital with symptoms of chest discomfort. He was seen in consultation yesterday by Dr. Lowery and the recommendation was to undergo a Lexiscan stress test. Patient was seen and examined this morning, no further episodes of chest discomfort, he did undergo his Cesilia scan stress test, results of which are yet pending. Blood pressure 116/80 with a heart rate of 90 morning. Blood cell count 7.5, hemoglobin 15.4, platelet count 243. Sodium 140, potassium 3.9, BUN 20 and creatinine 0.9. Magnesium 1.9. Objective - Vital Signs Vital signs: Vital Signs Temp 97.7 F 11/11/18 11:48 Pulse 94 11/11/18 11:48 Resp 18 11/11/18 11:48 BP 116/80 11/11/18 11:48 Pulse Ox 96 11/11/18 11:48 Intake & Output 11/10/18 11/11/18 11/11/18 18:59 06:59 18:59 Intake Total 1080 240 0 Balance 1080 240 0 Weight 144.9 kg Intake: Oral 1080 240 0 Other: Voiding Method Toilet # Voids 2 1 - Exam PHYSICAL EXAMINATION: GENERAL: 38-year-old gentleman in no acute distress at the time of my examination HEENT: Head is atraumatic, normocephalic. Pupils equal, round. Sclera anicteric. Conjunctiva are clear. Mucous membranes of the mouth are moist. Neck is supple. There is no elevated jugular venous pressure. No carotid br uit is heard. HEART EXAMINATION: Heart S1, S2 normal. No murmur or gallop heard. CHEST EXAMINATION: Lungs are clear to auscultation and precussion. No chest wall tenderness is noted on palpation or with deep breathing. ABDOMEN: Soft, nontender. Bowel sounds are heard. No organomegaly noted. EXTREMITIES: 2+ peripheral pulses with trace evidence of peripheral edema and no calf tenderness noted. NEUROLOGIC patient is awake, alert and oriented X3. . - Labs CBC & Chem 7: 11/11/18 08:24 11/11/18 08:24 Labs: Abnormal Lab Results - Last 24 Hours (Table) 11/09/18 11/10/18 11/10/18 Range/Units 14:42 11:52 16:52 RBC (4.30-5.90) m/uL BUN (9-20) mg/dL Glucose (74-99) mg/dL POC Glucose (mg/dL) 205 H 145 H (75-99) mg/dL Hemoglobin A1c 11.4 H (4.0-6.0) % 11/10/18 11/11/18 11/11/18 Range/Units 20:55 06:02 08:24 RBC 6.04 H (4.30-5.90) m/uL BUN (9-20) mg/dL Glucose (74-99) mg/dL POC Glucose (mg/dL) 212 H 147 H (75-99) mg/dL Hemoglobin A1c (4.0-6.0) % 11/11/18 Range/Units 08:24 RBC (4.30-5.90) m/uL BUN 26 H (9-20) mg/dL Glucose 134 H (74-99) mg/dL POC Glucose (mg/dL) (75-99) mg/dL Hemoglobin A1c (4.0-6.0) % Assessment and Plan Plan: ASSESSMENT and plan Chest pain, troponins negative 3, Cesilia scan stress test ordered for today Acute on chronic systolic heart failure. Improved. Ischemic cardiomyopathy status post AICD placement Coronary artery disease Hypertension Dyslipidemia Diabetes mellitus Obstructive sleep apnea Pulmonary hypertension, severe RVSP 61 mmHg Morbid obesity, BMI 44 Plan We will review the results of the stress test performed today, if negative patient may be able to be discharged home from our perspective. DNP note has been reviewed, I agree with a documented findings and plan of care. Patient was seen and examined.
--- NOTE | 2018-11-11 12:29 | NM ---
EXAMINATION TYPE: NM stress persantine cardiolite DATE OF EXAM: 11/11/2018 COMPARISON: NONE HISTORY: 38-year-old male with chest pain, CHF TECHNIQUE: After the intravenous administration of 10.11 mCi Tc 99m Sestamibi - Cardiolite resting S PECT images acquired 60 minutes post injection. The patient received 70 mg Persantine, 24.4 mCi Tc 99m Sestamibi - Stress images obtained 35 minutes post injection FINDINGS: Review of stress and rest SPECT images demonstrates left ventricular dilatation and large area of fix ed perfusion abnormality along the inferior, inferolateral lateral wall. No definite reversibility is seen. Gated analysis shows global hypokinesis with an estimated left ventricular ejection fraction o f 13 %. TID falls within normal limits at 1.00. IMPRESSION: 1. Left ventricular dilatation and large area of old infarct along the inferior and inferolateral wal l. 2. Markedly diminished LVEF of 13%. Correlate for ischemic cardiomyopathy. 3. No definite suspicious reversibility identified presently.
--- NOTE | 2018-11-11 13:59 | EST ---
EXERCISE STRESS AGE: 38 SEX: M HT: 6'0" WT: 319 PROTOCOL: Persantine Cardiolite Stress Test HEART RATE REST: 97 BLOOD PRESSURE REST: 121/84 MAXIMUM HEART RATE ACHIEVED: 98 MAXIMUM BLOOD PRESSURE: 132/78 INDICATIONS: Chest pain, CHF. CLINICAL INFORMATION: Baseline EKG revealed normal sinus rhythm with leftward axis nonspecific ST changes. With Lexiscan administration, heart rate changed from 97-98 beats per minute, blood pressure changed from 121/84 to 132/78. Patient had isolated PVCs. EKG remained inconclusive. Patient did not have any angina. By EKG criteria, this is an inconclusive Persantine stress test. The nuclear scan results which are more pertinent will be reported by the radiologist. MMODL / IJN: [id number] /
--- NOTE | 2018-11-11 23:18 | DS ---
DISCHARGE SUMMARY CHIEF COMPLAINT: Chest pain, shortness of breath. HISTORY OF PRESENT ILLNESS/PHYSICAL EXAM: Details of this man's history and physical can be found in the initial workup. LABORATORY STUDIES: While he was in the hospital, he had laboratory studies, details of which can be found in the laboratory section of his chart. COURSE IN HOSPITAL: After admission, he was placed on bedrest, started on intravenous fluids and had serial EKGs and cardiac enzymes. BNP was elevated. He was seen by Cardiology and he was taken for a stress study. This was reported as normal. It was felt he could be discharged. He will go home on his usual activity, diet and medication and will be encouraged to come into the office for short-term followup in order to better obtain control of his diabetes and congestive heart failure. FINAL DIAGNOSES: 1. Acute congestive heart failure. 2. Chronic congestive heart failure. 3. Probable cardiomyopathy. 4. Coronary artery disease. 5. Unstable angina pectoris. 6. Obesity. 7. Uncontrolled diabetes mellitus. OPERATIONS: None. CONSULTATIONS: Cardiology. He is improved. MYLES / PATITO: [id number] /
--- NOTE | 2018-11-14 16:08 | CDI ---
Outpatient Documentation Clarification Form Date: 11-14-18 CDS/Nursery Technician Name: MARIA T ESTEVEZ Phone: If you have question, contact Cesilia [facility] at [phone] M-F 8:30 am to 6pm. Patient Name: SIMON ARIZMENDI Admit Date: 11-08-18 Discharge Date: 11-11-18 ATTENTION: The Clinical Documentation Specialists (CDI) and [facility] Coding Staff appreciate your assistance in clarifying documentation. Please respond to the clarification below the line at the bottom and electronically sign. The CDI & [facility] Coding staff will review the response and follow-up if needed. Please note: Queries are made part of the Legal Health Record. If you have any questions, please contact the author of this message via ITS or call the [facility]. Dr. PHILLIPS, PLEASE SPECIFY IF THE PATIENT'S UNCONTROLLED DIABETES IS WITH HYPERGLYCEMIA OR HYPOGLYCEMIA. THANK YOU, MARIA T ESTEVEZ MTDD
--- NOTE | 2018-11-25 11:21 | MISC ---
MISCELLANOUS REPORT QUERY: Uncontrolled diabetes with hyperglycemia. MMODL / IJN: [id number] /
--- NOTE | 2018-11-27 12:57 | MISC ---
MISCELLANOUS REPORT QUERY: Uncontrolled diabetes with hyperglycemia. MMODL / IJN: [id number] /
== END 2018-11-11 15:13 | disposition home or self-care (01) ==
LOC: EC 20:22 → 3SCARD 20:52
PROVIDERS: ADMIT Family Medicine; ATTEND Family Medicine
DX: I11.0 Hypertensive heart disease with heart failure (principal); I50.23 Acute on chronic systolic (congestive) heart failure; I25.110 Atherosclerotic heart disease of native coronary artery with unstable angina pectoris; E78.5 Hyperlipidemia, unspecified; G47.33 Obstructive sleep apnea (adult) (pediatric); E66.01 Morbid (severe) obesity due to excess calories; Z68.41 Body mass index [BMI] 40.0-44.9, adult; I27.20 Pulmonary hypertension, unspecified; E11.65 Type 2 diabetes mellitus with hyperglycemia; E11.40 Type 2 diabetes mellitus with diabetic neuropathy, unspecified; I25.2 Old myocardial infarction; Z88.0 Allergy status to penicillin; Z99.89 Dependence on other enabling machines and devices; Z95.810 Presence of automatic (implantable) cardiac defibrillator; Z95.5 Presence of coronary angioplasty implant and graft; Z79.82 Long term (current) use of aspirin; Z79.4 Long term (current) use of insulin; Z79.899 Other long term (current) drug therapy; Z87.891 Personal history of nicotine dependence; Z82.49 Family history of ischemic heart disease and other diseases of the circulatory system; Z81.1 Family history of alcohol abuse and dependence; Z83.79 Family history of other diseases of the digestive system
CPT/HCPCS: 96376 ×3; 96372 ×2; 96374; 99285; 93017; 80053; 80048; 83735 ×2; 84484 ×2; 85025 ×2; 83036; 71046; 78452; G0378 ×4; A9500; J1644 ×2; J1940 ×4; J1245

== ENCOUNTER 2019-03-11 07:06 | Emergency (ER) | payer OTHER ==
[2019-03-11 07:12] VITALS: RESP 18; TEMP 98
--- NOTE | 2019-03-11 07:22 | ED ---
General Adult HPI - General Chief complaint: Chest Pain Stated complaint: Chest Pain,SOB Time Seen by Provider: 03/11/19 07:13 Source: patient Mode of arrival: wheelchair Limitations: physical limitation - History of Present Illness Initial comments: Dictation was produced using [employer] dictation software. please excuse any grammatical, word or spelling errors. Chief Complaint: 39-year-old male past medical history of ICD, adenopathy, diabetes, dyslipidemia presents with chest pain. History of Present Illness: Is a 39-year-old male. He has extensive cardiac medical history. In 2013 patient was diagnosed with cardiomyopathy and had a defibrillator device implanted. Patient states that he had a heart failure of approximately 6% at that time. Patient states that since last night he's been having chest pain. States pain is located to his left anterior chest. Describes it as sharp without any radiation. No associated diaphoresis. Sinus symptoms are worse with deep inspiration. Patient reports that his symptoms started last night as a mild discomfort and progressively worsened. Denies any exacerbation with movements. No history of blood clots. No lower extremity symptoms. The ROS documented in this emergency department record has been reviewed and confirmed by me. Those systems with pertinent positive or negative responses have been documented in the HPI. All other systems are other negative and/or noncontributory. PHYSICAL EXAM: General Impression: Alert and oriented x3, not in acute distress HEENT: Normocephalic atraumatic, extra-ocular movements intact, pupils equal and reactive to light bilaterally, mucous membranes moist. Cardiovascular: Heart regular rate and rhythm, S1&S2 audible, no murmurs, rubs or gallops Chest: Lungs clear to auscultation bilaterally, no rhonchi, no wheeze, no rales Abdomen: Bowel sounds present, abdomen soft, non-tender, non-distended, no organomegaly Musculoskeletal: Pulses present and equal in all extremities, no peripheral edema Motor: no focal deficits noted Neurological: CN II-XII grossly intact, no focal motor or sensory deficits noted Skin: Intact with no visualized rashes Psych: Normal affect and mood ED course: 39-year-old male with atypical chest pain. Patient has extensive cardiac history. Vitals signs upon arrival shows heart rate of 105/70 signs within acceptable limits. Physical examination is benign. Laboratory evaluation obtained. CBC, coag panel, metabolic panel was obtained showing no acute processes. Glucose is 383. Patient given insulin and intravenous fluids. Chart review shows that patient was recently admitted for chest symptoms. Negative stress test echo in October. Nonetheless patient's symptomatology suggests atypical chest pain giving symptoms consistent with pleurisy. Chest x-ray is unremarkable. She was in the emergency department with stable symptoms. Patient is well-appearing. States that his pain is mild Patient medically for discharge. Return parameters discussed. All questions answered. Patient understandable agreeable disposition. No concern for pulmonary embolus given that patient not hypoxic. Denies any shortness of breath and does not have any lower extremity symptoms. EKG interpretation: Ventricular rate 107, sinus tachycardia, LA interval 182, care is 116, QTC 488. No LA prolongation, no QTC prolongation, no ST or T-wave changes noted. EKG compared to the 2018 showing no changes. Overall, this EKG is unremarkable - Related Data Home Medications Medication Instructions Recorded Confirmed Albuterol Inhaler [Ventolin Hfa 1 - 2 puff INHALATION RT-Q6H PRN 05/05/18 11/08/18 Inhaler] Insulin Glargine,Hum.rec.anlog 120 units SQ DAILY 05/05/18 11/08/18 [Basaglar Kwikpen U-100] Aspirin EC [Ecotrin Low Dose] 81 mg PO DAILY 10/13/18 11/08/18 Previous Rx's Medication Instructions Recorded Atorvastatin [Lipitor] 80 mg PO HS #90 tab 10/16/18 Carvedilol [Coreg] 3.125 mg PO DAILY #180 tab 10/16/18 Furosemide [Lasix] 40 mg PO BID@0900,1600 #180 tab 10/16/18 Nitroglycerin Sl Tabs [Nitrostat] 0.4 mg SUBLINGUAL Q5M PRN #20 tab 10/16/18 Spironolactone [Aldactone] 25 mg PO DAILY #90 tab 10/16/18 Losartan [Cozaar] 50 mg PO DAILY #20 tab 10/24/18 Allergies Allergy/AdvReac Type Severity Reaction Status Date / Time Penicillins Allergy Unknown Verified 03/11/19 07:12 Childhood Review of Systems ROS Statement: Those systems with pertinent positive or pertinent negative responses have been documented in the HPI. ROS Other: All systems not noted in ROS Statement are negative. Past Medical History Past Medical History: Coronary Artery Disease (CAD), Chest Pain / Angina, Heart Failure, Diabetes Mellitus, Hyperlipidemia, Hypertension, Myocardial Infarction ([place]), Sleep Apnea/CPAP/BIPAP, Syncope Additional Past Medical History / Comment(s): Cardiiomyopathy with AICD, IDDM type II, neuropathy bilateral feet, SP with Cpap use, migraines, chronic back pain. Last Myocardial Infarction Date:: 2015 History of Any Multi-Drug Resistant Organisms: None Reported Past Surgical History: AICD, Heart Catheterization, Heart Catheterization With Stent Additional Past Surgical History / Comment(s): 10/27/12 AICD, DFTs, PCI with stent Past Anesthesia/Blood Transfusion Reactions: No Reported Reaction Date of Last Stent Placement:: 02/03/16 Type of Cardiac Device: AICD Device Placement Date:: 2012 Past Psychological History: Anxiety Smoking Status: Former smoker Past Alcohol Use History: None Reported Past Drug Use History: None Reported - Past Family History Mother Family Medical History: No Reported History Additional Family Medical History / Comment(s): Mother is healthy Brother(s) Family Medical History: Myocardial Infarction ([place]) Additional Family Medical History / Comment(s): Brother of a [place] at the age of 35yrs. Father Family Medical History: Liver Disease Additional Family Medical History / Comment(s): Father when pt was 19 yrs old from liver disease. He was an alcoholic. General Exam Limitations: physical limitation Course Vital Signs 03/11/19 03/11/19 03/11/19 07:09 08:05 08:41 Temperature 98 F Pulse Rate 105 H 103 H 102 H Respiratory 18 18 18 Rate Blood Pressure 154/105 136/95 134/96 O2 Sat by Pulse 96 100 98 Oximetry Medical Decision Making - Lab Data Result diagrams: 03/11/19 07:35 03/11/19 07:35 Lab Results 03/11/19 03/11/19 03/11/19 Range/Units 07:35 07:35 07:35 WBC 7.4 (3.8-10.6) k/uL RBC 5.73 (4.30-5.90) m/uL Hgb 16.8 (13.0-17.5) gm/dL Hct 46.7 (39.0-53.0) % MCV 81.6 (80.0-100.0) fL MCH 29.3 (25.0-35.0) pg MCHC 35.9 (31.0-37.0) g/dL RDW 16.2 H (11.5-15.5) % Plt Count 211 (150-450) k/uL Neutrophils % 58 % Lymphocytes % 29 % Monocytes % 6 % Eosinophils % 3 % Basophils % 2 % Neutrophils # 4.3 (1.3-7.7) k/uL Lymphocytes # 2.2 (1.0-4.8) k/uL Monocytes # 0.4 (0-1.0) k/uL Eosinophils # 0.3 (0-0.7) k/uL Basophils # 0.1 (0-0.2) k/uL Anisocytosis Slight PT 9.5 (9.0-12.0) sec INR 0.9 (<1.2) APTT 21.4 L (22.0-30.0) sec Sodium 136 L (137-145) mmol/L Potassium 4.1 (3.5-5.1) mmol/L Chloride 103 (98-107) mmol/L Carbon Dioxide 21 L (22-30) mmol/L Anion Gap 12 mmol/L BUN 13 (9-20) mg/dL Creatinine 0.68 (0.66-1.25) mg/dL Est GFR (CKD-EPI)AfAm >90 (>60 ml/min/1.73 sqM) Est GFR (CKD-EPI)NonAf >90 (>60 ml/min/1.73 sqM) Glucose 383 H (74-99) mg/dL POC Glucose (mg/dL) (75-99) mg/dL POC Glu Oven Operator ID Calcium 9.4 (8.4-10.2) mg/dL Magnesium 1.9 (1.6-2.3) mg/dL Total Bilirubin 1.3 (0.2-1.3) mg/dL AST 23 (17-59) U/L ALT 35 (21-72) U/L Alkaline Phosphatase 131 H (38-126) U/L Troponin I (0.000-0.034) ng/mL NT-Pro-B Natriuret Pep pg/mL Total Protein 7.3 (6.3-8.2) g/dL Albumin 3.9 (3.5-5.0) g/dL 03/11/19 03/11/19 03/11/19 Range/Units 07:35 07:35 08:21 WBC (3.8-10.6) k/uL RBC (4.30-5.90) m/uL Hgb (13.0-17.5) gm/dL Hct (39.0-53.0) % MCV (80.0-100.0) fL MCH (25.0-35.0) pg MCHC (31.0-37.0) g/dL RDW (11.5-15.5) % Plt Count (150-450) k/uL Neutrophils % % Lymphocytes % % Monocytes % % Eosinophils % % Basophils % % Neutrophils # (1.3-7.7) k/uL Lymphocytes # (1.0-4.8) k/uL Monocytes # (0-1.0) k/uL Eosinophils # (0-0.7) k/uL Basophils # (0-0.2) k/uL Anisocytosis PT (9.0-12.0) sec INR (<1.2) APTT (22.0-30.0) sec Sodium (137-145) mmol/L Potassium (3.5-5.1) mmol/L Chloride (98-107) mmol/L Carbon Dioxide (22-30) mmol/L Anion Gap mmol/L BUN (9-20) mg/dL Creatinine (0.66-1.25) mg/dL Est GFR (CKD-EPI)AfAm (>60 ml/min/1.73 sqM) Est GFR (CKD-EPI)NonAf (>60 ml/min/1.73 sqM) Glucose (74-99) mg/dL POC Glucose (mg/dL) 394 H (75-99) mg/dL POC Glu Oven Operator ID Samantha Butler Calcium (8.4-10.2) mg/dL Magnesium (1.6-2.3) mg/dL Total Bilirubin (0.2-1.3) mg/dL AST (17-59) U/L ALT (21-72) U/L Alkaline Phosphatase (38-126) U/L Troponin I <0.012 (0.000-0.034) ng/mL NT-Pro-B Natriuret Pep 294 pg/mL Total Protein (6.3-8.2) g/dL Albumin (3.5-5.0) g/dL Disposition Clinical Impression: Pleurisy Disposition: HOME SELF-CARE Condition: Good Instructions (If sedation given, give patient instructions): Chest Pain (ED) Is patient prescribed a controlled substance at d/c from ED?: No Referrals: Amrit Dan MD [Primary Care Provider] - 1-2 days Time of Disposition: 08:47
[2019-03-11 07:55] LABS: Anisocytosis Slight; Basophils # (A) 0.1 k/uL (0-0.2); Basophils % (A) 2 %; Eosinophils # (A) 0.3 k/uL (0-0.7); Eosinophils % (A) 3 %; HCT 46.7 % (39.0-53.0); HGB 16.8 gm/dL (13.0-17.5); Lymphocytes # (A) 2.2 k/uL (1.0-4.8); Lymphocytes % (A) 29 %; MCH 29.3 pg (25.0-35.0); MCHC 35.9 g/dL (31.0-37.0); MCV 81.6 fL (80.0-100.0); Mean Platelet Volume 6.3; Monocytes # (A) 0.4 k/uL (0-1.0); Monocytes % (A) 6 %; Neutrophils # (A) 4.3 k/uL (1.3-7.7); Neutrophils % (A) 58 %; Platelet Count 211 k/uL (150-450); RBC 5.73 m/uL (4.30-5.90); RDW 16.2 % (11.5-15.5); WBC 7.4 k/uL (3.8-10.6)
[2019-03-11 08:04] LABS: ALT 35 U/L (21-72); AST 23 U/L (17-59); African American GFR (CKD) >90 (>60 ml/min/1.73 sqM); Albumin 3.9 g/dL (3.5-5.0); Alkaline Phosphatase 131 U/L (38-126); Anion Gap 12 mmol/L; Blood Urea Nitrogen 13 mg/dL (9-20); Calcium 9.4 mg/dL (8.4-10.2); Carbon Dioxide 21 mmol/L (22-30); Chloride 103 mmol/L (98-107); Glucose 383 mg/dL (74-99); Magnesium 1.9 mg/dL (1.6-2.3); Non-African American GFR(CKD) >90 (>60 ml/min/1.73 sqM); Potassium 4.1 mmol/L (3.5-5.1); Sodium 136 mmol/L (137-145); Total Bilirubin 1.3 mg/dL (0.2-1.3); Total Protein 7.3 g/dL (6.3-8.2)
[2019-03-11 08:10] LABS: INR 0.9 (<1.2); Prothrombin Time 9.5 sec (9.0-12.0)
[2019-03-11 08:15] LABS: Partial Thromboplastin Time 21.4 sec (22.0-30.0)
[2019-03-11] MEDS ORDERED: INSULIN REGULAR 100 UNIT/ML VIAL IV ONE (08:24)
[2019-03-11] MEDS ORDERED: SODIUM CHLORIDE 0.9% 500 ML 500 ML IV STA (08:24)
--- NOTE | 2019-03-11 08:24 | XR ---
EXAMINATION TYPE: XR chest 2V DATE OF EXAM: 03/11/2019 COMPARISON: 11/09/2018 HISTORY: Chest pain and shortness of breath TECHNIQUE: Frontal and lateral views of the chest are obtained. FINDINGS: There is no focal air space opacity, pleural effusion, or pneumothorax seen. The cardiac silhouette size is upper limits of normal size. Single lead left-sided cardiac device. The osseous structures are intact. IMPRESSION: No acute cardiopulmonary process.
[2019-03-11 08:25] LABS: Glucose,Whole Blood 394 mg/dL (75-99)
[2019-03-11 09:22] LABS: Glucose,Whole Blood 304 mg/dL (75-99)
[2019-03-11 09:40] VITALS: BP 131/97; PULSE 97
== END 2019-03-11 09:37 | disposition home or self-care (01) ==
LOC: EC 07:06
DX: R09.1 Pleurisy (principal); R07.89 Other chest pain; I25.119 Atherosclerotic heart disease of native coronary artery with unspecified angina pectoris; I11.0 Hypertensive heart disease with heart failure; I50.9 Heart failure, unspecified; I42.9 Cardiomyopathy, unspecified; E78.5 Hyperlipidemia, unspecified; E11.40 Type 2 diabetes mellitus with diabetic neuropathy, unspecified; I25.2 Old myocardial infarction; G89.29 Other chronic pain; G47.33 Obstructive sleep apnea (adult) (pediatric); F41.9 Anxiety disorder, unspecified; Z79.82 Long term (current) use of aspirin; Z79.51 Long term (current) use of inhaled steroids; Z79.4 Long term (current) use of insulin; Z88.0 Allergy status to penicillin; Z95.810 Presence of automatic (implantable) cardiac defibrillator; Z95.5 Presence of coronary angioplasty implant and graft; Z87.891 Personal history of nicotine dependence; Z99.89 Dependence on other enabling machines and devices; Z82.49 Family history of ischemic heart disease and other diseases of the circulatory system
CPT/HCPCS: 36415; 71046; 80053; 83735; 83880; 84484; 85025; 85610; 85730; 93005; 99284

== ENCOUNTER 2019-04-05 16:17 | Observation (INO) | payer OTHER ==
--- NOTE | 2019-04-05 17:43 | XR ---
EXAMINATION TYPE: XR chest 2V DATE OF EXAM: 04/05/2019 COMPARISON: 03/11/2019 HISTORY: Chest pain TECHNIQUE: 2 views FINDINGS: Heart and mediastinum are normal. Lungs are clear. Diaphragm is normal. Bony thorax appears normal. IMPRESSION: Normal chest. No change.
[2019-04-05 17:53] LABS: Basophils # (A) 0.1 k/uL (0-0.2); Basophils % (A) 1 %; Eosinophils # (A) 0.2 k/uL (0-0.7); Eosinophils % (A) 2 %; HCT 45.7 % (39.0-53.0); HGB 16.5 gm/dL (13.0-17.5); Lymphocytes # (A) 2.1 k/uL (1.0-4.8); Lymphocytes % (A) 24 %; MCH 30.6 pg (25.0-35.0); MCHC 36.2 g/dL (31.0-37.0); MCV 84.6 fL (80.0-100.0); Mean Platelet Volume 8.1; Monocytes # (A) 0.4 k/uL (0-1.0); Monocytes % (A) 5 %; Neutrophils # (A) 5.6 k/uL (1.3-7.7); Neutrophils % (A) 66 %; Platelet Count 234 k/uL (150-450); RDW 14.3 % (11.5-15.5); WBC 8.6 k/uL (3.8-10.6)
[2019-04-05 17:54] LABS: Appearance,Urine Clear (Clear); Bilirubin,Urine Negative (Negative); Blood,Urine Negative (Negative); Color,Urine Light Yellow; Glucose,Urine (UA) 4+ (Negative); Ketones,Urine Negative (Negative); Leukocyte Esterase,Urine Negative (Negative); Nitrite,Urine Negative (Negative); PH, Urine 6.5 (5.0-8.0); Protein,Urine Negative (Negative); Specific Gravity,Urine 1.023 (1.001-1.035); Urobilinogen,Urine <2.0 mg/dL (<2.0)
[2019-04-05 18:04] LABS: ALT 23 U/L (4-49); AST 22 U/L (17-59); African American GFR (CKD) >90 (>60 ml/min/1.73 sqM); Albumin 3.8 g/dL (3.5-5.0); Alkaline Phosphatase 132 U/L (38-126); Anion Gap 12 mmol/L; Blood Urea Nitrogen 16 mg/dL (9-20); Carbon Dioxide 21 mmol/L (22-30); Chloride 99 mmol/L (98-107); Creatine Kinase 43 U/L (55-170); Glucose 460 mg/dL (74-99); Magnesium 1.7 mg/dL (1.6-2.3); Non-African American GFR(CKD) >90 (>60 ml/min/1.73 sqM); Potassium 4.6 mmol/L (3.5-5.1); Sodium 132 mmol/L (137-145); Total Bilirubin 1.2 mg/dL (0.2-1.3); Total Protein 6.8 g/dL (6.3-8.2)
--- NOTE | 2019-04-05 18:07 | CT ---
EXAMINATION TYPE: CT brain louis myrick con DATE OF EXAM: 04/05/2019 COMPARISON: 07/21/2013 HISTORY: Pt felt dizzy/lightheaded earlier (cardiac hx) and passed out, pt confirms LOC. Pt believes he hit his head, pain in LT side of neck. CT DLP: 1928.5 mGycm Automated exposure control for dose reduction was used. Ventricles have normal size. There is no mass effect nor midline shift. There is no sign of intracran ial hemorrhage. Calvarium is intact. There is some straightening of the cervical spine. Disc spaces are normal. Posterior elements are int act. Facet joints are intact. Skull base is intact. There is no evidence of a fracture. IMPRESSION: Negative CT scan cervical spine. Negative CT scan of the brain. \\ no adverse change compared to old exam.
[2019-04-05 18:08] LABS: D-Dimer 0.24 mg/L FEU (<0.60); INR 0.9 (<1.2); Partial Thromboplastin Time 23.5 sec (22.0-30.0); Prothrombin Time 9.5 sec (9.0-12.0)
[2019-04-05] MEDS ORDERED: SODIUM CHLORIDE 0.9% 500 ML 500 ML IV ONE (19:06)
[2019-04-05] MEDS ORDERED: INSULIN REGULAR 100 UNIT/ML VIAL SQ STA (19:07)
[2019-04-05] MEDS ORDERED: MORPHINE SULFATE 4 MG/ML SYRINGE IVP STA (19:07)
[2019-04-05] MEDS ORDERED: ASPIRIN 81 MG PO STA (19:08)
[2019-04-05] MEDS ORDERED: SODIUM CHLORIDE 0.9% 1,000 ML IV SCH (19:15)
[2019-04-05] MEDS ORDERED: NALOXONE 0.4 MG/ML 1 ML VIAL IV PRN (19:28)
--- NOTE | 2019-04-05 19:28 | ED ---
General Adult HPI - General Chief complaint: Syncope Stated complaint: DEANNA/Chest Pain x 1 week/Syncope Time Seen by Provider: 04/05/19 16:30 Source: patient Mode of arrival: wheelchair Limitations: no limitations - History of Present Illness Initial comments: The patient is a 39-year-old male with past history of insulin-dependent diabetes, cardiomyopathy, coronary artery disease and hypertension who presents to the emergency department with reported syncopal episode. He states that he was having some chest and left jaw pain earlier today. He was mildly short of breath. States that he immigrated out to his mailbox to get his mail when he ended up having a syncopal episode. He states that he felt diaphoretic and felt to the ground on his left side. Denies sustaining any injuries however he is unsure if he hit his head. He does believe that he was unconscious for approximately 10 minutes. He then awoke and indurated back into the house. He then came into the emergency room for evaluation. He does have an ICD/pacemaker. Currently is reporting to chest pain and palpitations. Denies any provocative or palliative factors. No headaches or visual changes. Denies any neck pain or stiffness. Admits mild nausea without vomiting. No abdominal pain or changes in his bowel or bladder habits. Patient has been taking his medications as directed except for his immediate acting insulin. States that he has been out of this medication for the past 2 weeks. He normally does not check his blood sugars. He sees Dr. Orlando and has one stent in his heart. Device is a ALICE App. He denies ripping or tearing patient is back. There are no alleviating, precipitating or modifying factors - Related Data Home Medications Medication Instructions Recorded Confirmed Aspirin EC [Ecotrin Low Dose] 81 mg PO DAILY 10/13/18 04/06/19 Losartan [Cozaar] 25 mg PO DAILY 03/11/19 04/06/19 Insulin Glargine,Hum.rec.anlog 100 unit SQ HS 04/05/19 04/06/19 [Basaglar Kwikpen U-100] metFORMIN HCL [metFORMIN HCL ER 1,000 mg PO DAILY 04/05/19 04/06/19 Osmotic] Previous Rx's Medication Instructions Recorded Atorvastatin [Lipitor] 80 mg PO HS #90 tab 10/16/18 Carvedilol [Coreg] 3.125 mg PO DAILY #180 tab 10/16/18 Furosemide [Lasix] 40 mg PO BID@0900,1600 #180 tab 10/16/18 Nitroglycerin Sl Tabs [Nitrostat] 0.4 mg SUBLINGUAL Q5M PRN #20 tab 10/16/18 Spironolactone [Aldactone] 25 mg PO DAILY #90 tab 10/16/18 Allergies Allergy/AdvReac Type Severity Reaction Status Date / Time Penicillins Allergy Unknown Verified 04/06/19 08:54 Childhood Review of Systems ROS Statement: Those systems with pertinent positive or pertinent negative responses have been documented in the HPI. ROS Other: All systems not noted in ROS Statement are negative. Past Medical History Past Medical History: Coronary Artery Disease (CAD), Chest Pain / Angina, Heart Failure, Diabetes Mellitus, Hyperlipidemia, Hypertension, Myocardial Infarction (CA), Sleep Apnea/CPAP/BIPAP, Syncope Additional Past Medical History / Comment(s): Cardiiomyopathy with AICD, IDDM type II, neuropathy bilateral feet, SP with Cpap use, migraines, chronic back pain. Last Myocardial Infarction Date:: 2015 History of Any Multi-Drug Resistant Organisms: None Reported Past Surgical History: AICD, Heart Catheterization, Heart Catheterization With Stent Additional Past Surgical History / Comment(s): 10/27/12 AICD, DFTs, PCI with stent Past Anesthesia/Blood Transfusion Reactions: No Reported Reaction Date of Last Stent Placement:: 02/03/16 Type of Cardiac Device: AICD Device Placement Date:: 2012 Past Psychological History: Anxiety Smoking Status: Former smoker Past Alcohol Use History: None Reported Past Drug Use History: None Reported - Past Family History Mother Family Medical History: No Reported History Additional Family Medical History / Comment(s): Mother is healthy Brother(s) Family Medical History: Myocardial Infarction (CA) Additional Family Medical History / Comment(s): Brother of a CA at the age of 35yrs. Father Family Medical History: Liver Disease Additional Family Medical History / Comment(s): Father when pt was 19 yrs old from liver disease. He was an alcoholic. General Exam Limitations: no limitations General appearance: alert, in no apparent distress Head exam: Present: atraumatic, normocephalic, normal inspection Eye exam: Present: normal appearance, PERRL, EOMI. Absent: scleral icterus, conjunctival injection, periorbital swelling ENT exam: Present: normal exam, mucous membranes moist Neck exam: Present: normal inspection. Absent: tenderness, meningismus, lymphadenopathy Respiratory exam: Present: normal lung sounds bilaterally. Absent: respiratory distress, wheezes, rales, rhonchi, stridor Cardiovascular Exam: Present: regular rate, normal rhythm, normal heart sounds. Absent: systolic murmur, diastolic murmur, rubs, gallop, clicks GI/Abdominal exam: Present: soft, normal bowel sounds. Absent: distended, tenderness, guarding, rebound, rigid Extremities exam: Present: normal inspection, full ROM, normal capillary refill. Absent: tenderness, pedal edema, joint swelling, calf tenderness Back exam: Present: normal inspection Neurological exam: Present: alert, oriented X3, CN II-XII intact Psychiatric exam: Present: normal affect, normal mood Skin exam: Present: warm, dry, intact, normal color. Absent: rash Course Vital Signs 04/05/19 04/05/19 04/05/19 16:27 18:32 19:24 Temperature 98.6 F 98.2 F Pulse Rate 124 H 103 H 111 H Pulse Rate [ Pulse Oximetery ] Respiratory 18 16 17 Rate Blood Pressure 133/88 137/81 133/89 Blood Pressure [Right Arm] O2 Sat by Pulse 94 L 96 93 L Oximetry 04/05/19 20:00 Temperature 97.9 F Pulse Rate Pulse Rate [ 101 H Pulse Oximetery ] Respiratory 18 Rate Blood Pressure Blood Pressure 127/89 [Right Arm] O2 Sat by Pulse 93 L Oximetry EKG Findings - EKG Comments: EKG Findings:: EKG demonstrates a sinus tachycardia with a ventricular rate of 118. OH interval 164. QRS 114. QTC 462. Baseline artifact present. No acute ST segment elevations or depressions concerning for ischemic changes Medical Decision Making - Medical Decision Making Upon arrival the patient is placed in room 15. A thorough history and physical exam is performed. The patient is up to continuous pulse ox and cardiac monitoring. A 12-lead EKG is performed. Peripheral IV is established. The patient was given 4 chewable aspirins as well as 4 mg of morphine for pain control. Laboratory studies were conducted and the patient was sent for a chest x-ray. Lab studies demonstrated normal CBC. D-dimer 0.24. CMP shows a glucose of 460. No anion gap or ketones in the urine. Troponin is negative. I do order interrogation of the patient's [place] [employer] device. He does remain on telemetry monitoring without signs of ectopy. Chest x-ray demonstrates no acute findings. I did CT the patient's head and cervical spine as he is unaware if he hit his head. This demonstrates no acute findings as well. I discussed results of the patient. As I am concerned for possible cardiac arrhythmia I did recommend hospital admission for to the patient did agree. Called and discussed the case with Dr. Dan did accept admission. The patient did receive a 500 mL bolus and will be continued on the milliliters per hour of normal saline. I also given 10 units of insulin. He will be placed on ACHS Accu-Cheks. I will consult cardiology. The patient had improvement in his pain. He was then taken the floor in stable condition - Lab Data Result diagrams: 04/06/19 04:58 04/06/19 04:55 Lab Results 04/05/19 04/05/19 04/05/19 Range/Units 17:05 17:05 17:05 WBC 8.6 (3.8-10.6) k/uL RBC 5.40 (4.30-5.90) m/uL Hgb 16.5 (13.0-17.5) gm/dL Hct 45.7 (39.0-53.0) % MCV 84.6 (80.0-100.0) fL MCH 30.6 (25.0-35.0) pg MCHC 36.2 (31.0-37.0) g/dL RDW 14.3 (11.5-15.5) % Plt Count 234 (150-450) k/uL Neutrophils % 66 % Lymphocytes % 24 % Monocytes % 5 % Eosinophils % 2 % Basophils % 1 % Neutrophils # 5.6 (1.3-7.7) k/uL Lymphocytes # 2.1 (1.0-4.8) k/uL Monocytes # 0.4 (0-1.0) k/uL Eosinophils # 0.2 (0-0.7) k/uL Basophils # 0.1 (0-0.2) k/uL PT 9.5 (9.0-12.0) sec INR 0.9 (<1.2) APTT 23.5 (22.0-30.0) sec D-Dimer 0.24 (<0.60) mg/L FEU Sodium 132 L (137-145) mmol/L Potassium 4.6 (3.5-5.1) mmol/L Chloride 99 (98-107) mmol/L Carbon Dioxide 21 L (22-30) mmol/L Anion Gap 12 mmol/L BUN 16 (9-20) mg/dL Creatinine 0.69 (0.66-1.25) mg/dL Est GFR (CKD-EPI)AfAm >90 (>60 ml/min/1.73 sqM) Est GFR (CKD-EPI)NonAf >90 (>60 ml/min/1.73 sqM) Glucose 460 H (74-99) mg/dL Calcium 9.0 (8.4-10.2) mg/dL Magnesium 1.7 (1.6-2.3) mg/dL Total Bilirubin 1.2 (0.2-1.3) mg/dL AST 22 (17-59) U/L ALT 23 (4-49) U/L Alkaline Phosphatase 132 H (38-126) U/L Creatine Kinase 43 L (55-170) U/L Troponin I (0.000-0.034) ng/mL Total Protein 6.8 (6.3-8.2) g/dL Albumin 3.8 (3.5-5.0) g/dL Urine Color Urine Appearance (Clear) Urine pH (5.0-8.0) Ur Specific [place] (1.001-1.035) Urine Protein (Negative) Urine Glucose (UA) (Negative) Urine Ketones (Negative) Urine Blood (Negative) Urine Nitrite (Negative) Urine Bilirubin (Negative) Urine Urobilinogen (<2.0) mg/dL Ur Leukocyte Esterase (Negative) 04/05/19 04/05/19 Range/Units 17:05 17:05 WBC (3.8-10.6) k/uL RBC (4.30-5.90) m/uL Hgb (13.0-17.5) gm/dL Hct (39.0-53.0) % MCV (80.0-100.0) fL MCH (25.0-35.0) pg MCHC (31.0-37.0) g/dL RDW (11.5-15.5) % Plt Count (150-450) k/uL Neutrophils % % Lymphocytes % % Monocytes % % Eosinophils % % Basophils % % Neutrophils # (1.3-7.7) k/uL Lymphocytes # (1.0-4.8) k/uL Monocytes # (0-1.0) k/uL Eosinophils # (0-0.7) k/uL Basophils # (0-0.2) k/uL PT (9.0-12.0) sec INR (<1.2) APTT (22.0-30.0) sec D-Dimer (<0.60) mg/L FEU Sodium (137-145) mmol/L Potassium (3.5-5.1) mmol/L Chloride (98-107) mmol/L Carbon Dioxide (22-30) mmol/L Anion Gap mmol/L BUN (9-20) mg/dL Creatinine (0.66-1.25) mg/dL Est GFR (CKD-EPI)AfAm (>60 ml/min/1.73 sqM) Est GFR (CKD-EPI)NonAf (>60 ml/min/1.73 sqM) Glucose (74-99) mg/dL Calcium (8.4-10.2) mg/dL Magnesium (1.6-2.3) mg/dL Total Bilirubin (0.2-1.3) mg/dL AST (17-59) U/L ALT (4-49) U/L Alkaline Phosphatase (38-126) U/L Creatine Kinase (55-170) U/L Troponin I <0.012 (0.000-0.034) ng/mL Total Protein (6.3-8.2) g/dL Albumin (3.5-5.0) g/dL Urine Color Light Yellow Urine Appearance Clear (Clear) Urine pH 6.5 (5.0-8.0) Ur Specific [place] 1.023 (1.001-1.035) Urine Protein Negative (Negative) Urine Glucose (UA) 4+ H (Negative) Urine Ketones Negative (Negative) Urine Blood Negative (Negative) Urine Nitrite Negative (Negative) Urine Bilirubin Negative (Negative) Urine Urobilinogen <2.0 (<2.0) mg/dL Ur Leukocyte Esterase Negative (Negative) Disposition Clinical Impression: Chest pain, Syncope and collapse, Hyperglycemia Disposition: ADMITTED IP TO THIS HOSP Condition: Serious Is patient prescribed a controlled substance at d/c from ED?: No Decision to Admit Reason: Admit from EC Decision Date: 04/05/19 Decision Time: :28
[2019-04-05 20:57] LABS: Glucose,Whole Blood 279 mg/dL (75-99)
[2019-04-05] MEDS ORDERED: ATORVASTATIN 80 MG TAB PO SCH (21:45)
[2019-04-05] MEDS ORDERED: INSULIN DETEMIR (LEVEMIR) 100 UNIT/ML SYR SQ SCH (22:00)
[2019-04-05] MEDS ORDERED: NITROGLYCERIN SL TABS 0.4 MG TAB SUBLINGUAL PRN (22:00)
[2019-04-05] MEDS: FUROSEMIDE 40 MG TAB PO SCH (22:13)
[2019-04-05] MEDS: MORPHINE SULFATE 4 MG/ML SYRINGE IV PRN (22:13)
[2019-04-06 01:36] LABS: Glucose,Whole Blood 371 mg/dL (75-99)
[2019-04-06] MEDS: INSULIN ASPART (NovoLOG) 100 UNIT/ML VIAL SQ SCH ×3 (01:52→12:07)
[2019-04-06] MEDS: MORPHINE SULFATE 4 MG/ML SYRINGE IV PRN ×3 (01:53→10:30)
[2019-04-06] MEDS ORDERED: INSULIN DETEMIR (LEVEMIR) 100 UNIT/ML SYR SQ SCH (04:53)
[2019-04-06 05:10] LABS: Basophils # (A) 0.1 k/uL (0-0.2); Basophils % (A) 2 %; Eosinophils # (A) 0.3 k/uL (0-0.7); Eosinophils % (A) 4 %; HGB 16.1 gm/dL (13.0-17.5); Lymphocytes # (A) 2.9 k/uL (1.0-4.8); Lymphocytes % (A) 36 %; MCH 30.7 pg (25.0-35.0); MCHC 35.9 g/dL (31.0-37.0); MCV 85.4 fL (80.0-100.0); Mean Platelet Volume 7.7; Monocytes # (A) 0.5 k/uL (0-1.0); Monocytes % (A) 7 %; Neutrophils # (A) 3.9 k/uL (1.3-7.7); Neutrophils % (A) 49 %; Platelet Count 209 k/uL (150-450); RBC 5.26 m/uL (4.30-5.90); RDW 14.4 % (11.5-15.5)
[2019-04-06 05:20] LABS: African American GFR (CKD) >90 (>60 ml/min/1.73 sqM); Anion Gap 9 mmol/L; Blood Urea Nitrogen 16 mg/dL (9-20); Calcium 8.5 mg/dL (8.4-10.2); Carbon Dioxide 25 mmol/L (22-30); Chloride 102 mmol/L (98-107); Glucose 270 mg/dL (74-99); Non-African American GFR(CKD) >90 (>60 ml/min/1.73 sqM); Potassium 3.6 mmol/L (3.5-5.1); Sodium 136 mmol/L (137-145)
[2019-04-06 07:09] LABS: Glucose,Whole Blood 290 mg/dL (75-99)
[2019-04-06] MEDS ORDERED: CARVEDILOL 3.125 MG TAB PO SCH (07:30)
[2019-04-06] MEDS: FUROSEMIDE 40 MG TAB PO SCH (08:39)
--- NOTE | 2019-04-06 08:51 | P.CRDCN ---
History of Present Illness Consult date: 04/06/19 Chief complaint: syncope History of present illness: this is a very pleasant 39-year-old gentleman with a past medical history significant for coronary artery disease and prior stenting of the RCA in 2015, ischemic cardiomyopathy with a known ejection fraction around 35%, status post AICD, hypertension, dyslipidemia, and diabetes, was admitted to the observational unit here at [facility] after he had a syncopal episode at home. The patient stated that he was walking historyout yesterday when he felt sharp discomfort in the chest followed by an episode of syncope lasted according to him about 10 minutes. The syncope was not witnessed by anybody. He states also that he felt slightly diaphoretic before that happened to him. Currently he is chest pain-free. He denies any shortness of breath, dizziness, heart racing, or any feeling of palpitations in the chest. The EKG when he presented to the hospital revealed sinus tachycardia. The troponin came in to be unremarkable. The computed tomography scan of the head did not show any acute abnormalities. Please note that the patient was admitted to the hospital back in October 2018 with a chest discomfort and at that point he underwent myocardial perfusion imaging stress test and that revealed no evidence of reversible defect. Currently the patient is asymptomatic and he seems to be hemodynamically stable. No orthostatic blood pressure was performed. Past Medical History Past Medical History: Coronary Artery Disease (CAD), Chest Pain / Angina, Heart Failure, Diabetes Mellitus, Hyperlipidemia, Hypertension, Myocardial Infarction (SD), Sleep Apnea/CPAP/BIPAP, Syncope Additional Past Medical History / Comment(s): Cardiiomyopathy with AICD, IDDM type II, neuropathy bilateral feet, SP with Cpap use, migraines, chronic back pain. Last Myocardial Infarction Date:: 2015 History of Any Multi-Drug Resistant Organisms: None Reported Past Surgical History: AICD, Heart Catheterization, Heart Catheterization With Stent Additional Past Surgical History / Comment(s): 10/27/12 AICD, DFTs, PCI with stent Past Anesthesia/Blood Transfusion Reactions: No Reported Reaction Date of Last Stent Placement:: 02/03/16 Type of Cardiac Device: AICD Device Placement Date:: 2012 Past Psychological History: Anxiety Smoking Status: Former smoker Past Alcohol Use History: None Reported Past Drug Use History: None Reported - Past Family History Mother Family Medical History: No Reported History Additional Family Medical History / Comment(s): Mother is healthy Brother(s) Family Medical History: Myocardial Infarction (SD) Additional Family Medical History / Comment(s): Brother of a SD at the age of 35yrs. Father Family Medical History: Liver Disease Additional Family Medical History / Comment(s): Father when pt was 19 yrs old from liver disease. He was an alcoholic. Medications and Allergies Home Medications Medication Instructions Recorded Confirmed Type Aspirin EC [Ecotrin Low Dose] 81 mg PO DAILY 10/13/18 04/05/19 History Atorvastatin [Lipitor] 80 mg PO HS #90 tab 10/16/18 04/05/19 Rx Carvedilol [Coreg] 3.125 mg PO DAILY #180 tab 10/16/18 04/05/19 Rx Furosemide [Lasix] 40 mg PO BID@0900,1600 #180 tab 10/16/18 04/05/19 Rx Nitroglycerin Sl Tabs [Nitrostat] 0.4 mg SUBLINGUAL Q5M PRN #20 tab 10/16/18 04/05/19 Rx Spironolactone [Aldactone] 25 mg PO DAILY #90 tab 10/16/18 04/05/19 Rx Losartan [Cozaar] 25 mg PO DAILY 03/11/19 04/05/19 History Insulin Glargine,Hum.rec.anlog 100 unit SQ HS 04/05/19 04/05/19 History [Basaglar Kwikpen U-100] metFORMIN HCL [metFORMIN HCL ER 1,000 mg PO DAILY 04/05/19 04/05/19 History Osmotic] Allergies Allergy/AdvReac Type Severity Reaction Status Date / Time Penicillins Allergy Unknown Verified 04/05/19 20:49 Childhood Physical Exam Vitals: Vital Signs Temp Pulse Pulse Resp BP BP Pulse Ox 04/06/19 08:00 91 18 04/06/19 07:42 97.5 F L 91 18 133/89 97 04/06/19 03:44 97.6 F 98 18 119/82 97 04/05/19 23:06 97.6 F 102 H 18 139/96 94 L 04/05/19 20:00 97.9 F 101 H 18 127/89 93 L 04/05/19 19:24 98.2 F 111 H 17 133/89 93 L 04/05/19 18:32 103 H 16 137/81 96 12/15/19 16:27 98.6 F 124 H 18 133/88 94 L Intake and Output 04/05/19 04/06/19 04/06/19 22:59 06:59 14:59 Other: Voiding Method Toilet Toilet Toilet # Voids 1 Weight 140.614 kg - Constitutional General appearance: no acute distress - Respiratory Respiratory: bilateral: CTA - Cardiovascular Rhythm: regular Heart sounds: normal: S1, S2 Results 04/06/19 04:58 04/06/19 04:55 Cardiac Enzymes 04/05/19 04/05/19 04/05/19 Range/Units 17:05 17:05 23:26 AST 22 (17-59) U/L Troponin I <0.012 <0.012 (0.000-0.034) ng/mL 04/06/19 Range/Units 04:58 AST (17-59) U/L Troponin I <0.012 (0.000-0.034) ng/mL Coagulation 04/05/19 Range/Units 17:05 PT 9.5 (9.0-12.0) sec APTT 23.5 (22.0-30.0) sec CBC 04/05/19 04/06/19 Range/Units 17:05 04:58 WBC 8.6 8.0 (3.8-10.6) k/uL RBC 5.40 5.26 (4.30-5.90) m/uL Hgb 16.5 16.1 (13.0-17.5) gm/dL Hct 45.7 45.0 (39.0-53.0) % Plt Count 234 209 (150-450) k/uL Comprehensive Metabolic Panel 04/05/19 04/06/19 Range/Units 17:05 04:55 Sodium 132 L 136 L (137-145) mmol/L Potassium 4.6 3.6 (3.5-5.1) mmol/L Chloride 99 102 (98-107) mmol/L Carbon Dioxide 21 L 25 (22-30) mmol/L BUN 16 16 (9-20) mg/dL Creatinine 0.69 0.70 (0.66-1.25) mg/dL Glucose 460 H 270 H (74-99) mg/dL Calcium 9.0 8.5 (8.4-10.2) mg/dL AST 22 (17-59) U/L ALT 23 (4-49) U/L Alkaline Phosphatase 132 H (38-126) U/L Total Protein 6.8 (6.3-8.2) g/dL Albumin 3.8 (3.5-5.0) g/dL Current Medications Generic Name Dose Route Start Last Admin Trade Name Freq PRN Reason Stop Dose Admin Aspirin 81 mg 04/06/19 09:00 04/06/19 08:39 Aspirin PO 81 mg DAILY KSENIA Administration Atorvastatin Calcium 80 mg 04/05/19 21:45 04/05/19 22:13 Lipitor PO 80 mg HS KSENIA Administration Carvedilol 3.125 mg 04/06/19 07:30 04/06/19 08:38 Coreg PO 3.125 mg W/BRKFST KSENIA Administration Furosemide 40 mg 04/05/19 22:00 04/06/19 08:39 Lasix PO 40 mg BID@0900,1600 KSENIA Administration Sodium Chloride 1,000 mls @ 50 mls/hr 04/05/19 19:15 04/05/19 22:07 Saline 0.9% IV Not Given .Q20H KSENIA Insulin Aspart 0 unit 04/06/19 02:00 04/06/19 08:39 Novolog SQ 7 unit [id number] [facility] Administration Protocol Insulin Detemir 100 unit 04/06/19 04:53 Levemir SQ HS KSENIA Losartan Potassium 25 mg 04/06/19 09:00 04/06/19 08:39 Cozaar PO 25 mg DAILY KSENIA Administration Metformin HCl 1,000 mg 04/06/19 09:00 04/06/19 08:38 Glucophage PO 1,000 mg DAILY KSENIA Administration Morphine Sulfate 4 mg 04/05/19 19:28 04/06/19 06:09 Morphine Sulfate (Inj) IV 4 mg Q4HR PRN Administration Severe Pain Naloxone HCl 0.2 mg 04/05/19 19:28 Narcan IV Q2M PRN Opioid Reversal Nitroglycerin 0.4 mg 04/05/19 22:00 Nitrostat SUBLINGUAL Q5M PRN Chest Pain Spironolactone 25 mg 04/06/19 09:00 04/06/19 08:38 Aldactone PO 25 mg DAILY KSENIA Administration Intake and Output 04/05/19 04/06/19 04/06/19 22:59 06:59 14:59 Other: Voiding Method Toilet Toilet Toilet # Voids 1 Weight 140.614 kg 04/06/19 04:58 04/06/19 04:55 Assessment and Plan Assessment: assessment #1 syncopal episode #2 one episode of chest discomfort #3 severe ischemic cardiomyopathy #4 coronary artery disease and status post PCI of the RCA #5 multiple comorbidities including diabetes, hypertension, and dyslipidemia Plan #1 acute coronary event was ruled out. The troponin is unremarkable and the EKG did not show any ischemic changes #2 I am going to do an ICD interrogation to rule out any V. fib/V. tach as an etiology for his syncope #3 obtain an orthostatic blood pressure #4 further recommendation to follow Thank you for allowing us participate in his care
[2019-04-06] MEDS ORDERED: LOSARTAN 25 MG TAB PO SCH (09:00)
[2019-04-06] MEDS ORDERED: metFORMIN 500 MG TAB PO SCH (09:00)
[2019-04-06] MEDS ORDERED: SPIRONOLACTONE 25 MG TAB PO SCH (09:00)
[2019-04-06] MEDS ORDERED: ASPIRIN 81 MG PO SCH (09:00)
[2019-04-06 11:17] VITALS: BP 133/96; PULSE 94; RESP 19; TEMP 97.7
[2019-04-06 11:38] LABS: Glucose,Whole Blood 316 mg/dL (75-99)
--- NOTE | 2019-04-06 20:52 | HP ---
HISTORY AND PHYSICAL CHIEF COMPLAINT: Syncopal episode, chest pain, shortness of breath. HISTORY OF PRESENT ILLNESS: This is another of many admissions for this 39-year-old white male with severe heart disease, diabetes, hypertension, hyperlipidemia. He apparently had a syncopal episode. He was alone. He woke up and found himself on the ground. He was able to get up, In the emergency room, he was extremely short of breath. He is an extremely noncompliant individual. He is supposed to be on numerous medications including insulin and he "just does not take them". He does not know why. Blood sugar was over 400. REVIEW OF SYSTEMS: He has had no focal neurologic deficits, headache, change in vision or hearing, chest pain, cough, hemoptysis, pleurisy, orthopnea, PND, abdominal pain, nausea, vomiting, hematemesis, melena, hematochezia, hematuria, frequency, urgency, etc. Past medical history, family history and personal and social histories reveal he is ALLERGIC to PENICILLIN. He is currently not taking any medication. He has not been seen since October in the office. At that time, he was supposed to be on spironolactone, Lasix, atorvastatin, Basaglar, lisinopril, carvedilol, ibuprofen, metformin, and nitroglycerin. He has not returned to the office. Past medical history, family history personal and social histories reveal he used to smoke but does not any longer. He does not drink. PHYSICAL EXAMINATION: Blood pressure is 168/95 with a pulse of 104 and regular. Respirations were 38. He is afebrile. In general, he appeared to be obese and slightly pale. He is somewhat chronically ill in appearance. Head, ears, eyes, nose, mouth, and throat were normal. Neck veins are not distended. Carotids were difficult to evaluate. Chest demonstrated bilateral wheezes, rales and rhonchi with expiratory phase. Cardiac exam demonstrated sinus tachycardia with an S4. The abdomen is protuberant, soft, nontender. There are no masses or visceromegaly. Extremities are normal. Neurologically he is intact. IMPRESSION: He is admitted to the hospital with diagnoses: 1. Syncope, probably due to cardiac arrhythmia. 2. Coronary artery disease. 3. Acute congestive heart failure. 4. Chronic congestive heart failure. 5. Atherosclerotic cardiomyopathy. 6. Renal failure. 7. Uncontrolled insulin-dependent diabetes mellitus. PLAN: 1. Bed rest. 2. IV fluids. 3. Address congestive heart failure. 4. Cardiology consult. 5. Try to resume his medication program. MYLES / PATITO: [id number] /
--- NOTE | 2019-04-06 23:23 | DS ---
DISCHARGE SUMMARY CHIEF COMPLAINT: Syncope, coronary artery disease, cardiomyopathy, uncontrolled diabetes and CHF. HISTORY OF PRESENT ILLNESS AND PHYSICAL EXAM: Details of this man's history and physical can be found in the initial workup. LABORATORY STUDIES: While he was in the hospital he had laboratory studies, details of which can be found in the laboratory section of his chart. COURSE IN HOSPITAL: After admission, he was placed on bedrest, started on intravenous fluids, started on diuresis. He was seen by Cardiology and placed back on his best practice medication program. Cardiology felt they had nothing further to offer and that he could be discharged. He will be sent home and, hopefully, he will resume his medication program. He will be asked to come into the office for followup, but he probably will not. FINAL DIAGNOSES: 1. Syncope, probably due to cardiac arrhythmia. 2. Coronary artery disease. 3. Cardiomyopathy. 4. Acute and chronic congestive heart failure. 5. Uncontrolled insulin-dependent diabetes mellitus. OPERATIONS: None. CONSULTATION: Cardiology. He is improved. MMODL / IJN: [id number] /
== END 2019-04-06 15:19 | disposition home or self-care (01) ==
LOC: EC 16:17 → 1SOBS 19:28
PROVIDERS: ADMIT Family Medicine; ATTEND Family Medicine
DX: R55 Syncope and collapse (principal); I25.10 Atherosclerotic heart disease of native coronary artery without angina pectoris; I11.0 Hypertensive heart disease with heart failure; I50.9 Heart failure, unspecified; E11.65 Type 2 diabetes mellitus with hyperglycemia; E78.5 Hyperlipidemia, unspecified; I25.2 Old myocardial infarction; I25.5 Ischemic cardiomyopathy; N19 Unspecified kidney failure; Z79.4 Long term (current) use of insulin; Z79.82 Long term (current) use of aspirin; Z79.899 Other long term (current) drug therapy; Z82.49 Family history of ischemic heart disease and other diseases of the circulatory system; Z87.891 Personal history of nicotine dependence; Z91.19 Patient's noncompliance with other medical treatment and regimen; Z95.5 Presence of coronary angioplasty implant and graft; Z95.810 Presence of automatic (implantable) cardiac defibrillator; Z88.0 Allergy status to penicillin; E11.40 Type 2 diabetes mellitus with diabetic neuropathy, unspecified; G47.33 Obstructive sleep apnea (adult) (pediatric); Z99.89 Dependence on other enabling machines and devices; G89.29 Other chronic pain; M54.9 Dorsalgia, unspecified; Z84.89 Family history of other specified conditions; Z81.1 Family history of alcohol abuse and dependence; R00.0 Tachycardia, unspecified
CPT/HCPCS: 93005 ×2; 96376 ×2; 96361; 96374; 99285; 36415; 85379; 80053; 80048; 82550; 83735; 84484 ×2; 85025 ×2; 85610; 85730; 81003; 71046; 72125; 70450; G0378 ×2; J2270 ×2

== ENCOUNTER 2019-06-14 14:44 | Observation (INO) | payer OTHER ==
[2019-06-14] MEDS ORDERED: NITROGLYCERIN OINT 1 INCH/GM PACKET TOPICAL STA (15:24)
[2019-06-14] MEDS ORDERED: ASPIRIN 81 MG PO STA (15:24)
[2019-06-14] MEDS ORDERED: NITROGLYCERIN SL TABS 0.4 MG TAB SUBLINGUAL STA (15:24)
--- NOTE | 2019-06-14 15:31 | ED ---
General Adult HPI - General Chief complaint: Chest Pain Stated complaint: Chest pains/DEANNA/lump in armpit Time Seen by Provider: 06/14/19 15:00 Source: patient, RN notes reviewed, old records reviewed Mode of arrival: ambulatory Limitations: no limitations - History of Present Illness Initial comments: This is a 39-year-old male who has a past medical history significant for congestive heart failure, [place], diabetes, high blood pressure, and high choleste rol. Patient states he is a 20 year history of smoking however he stopped 2 years ago. Patient states he's been having intermittent chest pain since yesterday. Patient states the pain now is the longest it's been in his been 2 hours. Patient states the pain radiates to his back. Patient states he is mildly short of breath. Patient denies any diaphoretic episodes. Patient denies any nausea. Patient denies any recent fever chills or cough. Patient denies headache patient denies numbness weakness. Patient denies lightheadedness or dizziness. Patient denies any swollen to the legs or calf tenderness. Patient denies abdominal pain. Patient denies any recent vomiting or diarrhea. Patient also states he has a defibrillator in place. - Related Data Home Medications Medication Instructions Recorded Confirmed Aspirin EC [Ecotrin Low Dose] 81 mg PO DAILY 10/13/18 06/14/19 Losartan [Cozaar] 25 mg PO DAILY 03/11/19 06/14/19 Insulin Glargine,Hum.rec.anlog 120 unit SQ HS 04/05/19 06/14/19 [Basaglar Kwikpen U-100] metFORMIN HCL 1,000 mg PO DAILY 06/14/19 06/14/19 Previous Rx's Medication Instructions Recorded Atorvastatin [Lipitor] 80 mg PO HS #90 tab 10/16/18 Carvedilol [Coreg] 3.125 mg PO DAILY #180 tab 10/16/18 Furosemide [Lasix] 40 mg PO BID@0900,1600 #180 tab 10/16/18 Nitroglycerin Sl Tabs [Nitrostat] 0.4 mg SUBLINGUAL Q5M PRN #20 tab 10/16/18 Spironolactone [Aldactone] 25 mg PO DAILY #90 tab 10/16/18 Allergies Allergy/AdvReac Type Severity Reaction Status Date / Time Penicillins Allergy Unknown Verified 06/14/19 15:56 Childhood Review of Systems ROS Statement: Those systems with pertinent positive or pertinent negative responses have been documented in the HPI. ROS Other: All systems not noted in ROS Statement are negative. Past Medical History Past Medical History: Coronary Artery Disease (CAD), Chest Pain / Angina, Heart Failure, Diabetes Mellitus, Hyperlipidemia, Hypertension, Myocardial Infarction ([place]), Sleep Apnea/CPAP/BIPAP, Syncope Additional Past Medical History / Comment(s): Cardiiomyopathy with AICD, IDDM type II, neuropathy bilateral feet, SP with Cpap use, migraines, chronic back pain. Last Myocardial Infarction Date:: 2015 History of Any Multi-Drug Resistant Organisms: None Reported Past Surgical History: AICD, Heart Catheterization, Heart Catheterization With Stent Additional Past Surgical History / Comment(s): 10/27/12 AICD, DFTs, PCI with stent Past Anesthesia/Blood Transfusion Reactions: No Reported Reaction Date of Last Stent Placement:: 02/03/16 Type of Cardiac Device: AICD Device Placement Date:: 2012 Past Psychological History: Anxiety Smoking Status: Former smoker Past Alcohol Use History: None Reported Past Drug Use History: None Reported - Past Family History Mother Family Medical History: No Reported History Additional Family Medical History / Comment(s): Mother is healthy Brother(s) Family Medical History: Myocardial Infarction ([place]) Additional Family Medical History / Comment(s): Brother of a [place] at the age of 35yrs. Father Family Medical History: Liver Disease Additional Family Medical History / Comment(s): Father when pt was 19 yrs old from liver disease. He was an alcoholic. General Exam - General Exam Comments Initial Comments: GENERAL: Patient is well-developed and well-nourished. Patient is nontoxic and well- hydrated and is in mild distress. ENT: Neck is soft and supple. No significant lymphadenopathy is noted. Oropharynx is clear. Moist mucous membranes. Neck has full range of motion without eliciting any pain. EYES: The sclera were anicteric and conjunctiva were pink and moist. Extraocular movements were intact and pupils were equal round and reactive to light. Eyelids were unremarkable. PULMONARY: Unlabored respirations. Good breath sounds bilaterally. No audible rales rhonchi or wheezing was noted. CARDIOVASCULAR: There is a regular rate and rhythm without any murmurs gallops or rubs. ABDOMEN: Soft and nontender with normal bowel sounds. SKIN: Skin is clear with no lesions or rashes and otherwise unremarkable. NEUROLOGIC: Patient is alert and oriented x3. Cranial nerves II through XII are grossly intact. Motor and sensory are also intact. Normal speech, volume and content. Symmetrical smile. MUSCULOSKELETAL: Normal extremities with adequate strength and full range of motion. LYMPHATICS: No significant lymphadenopathy is noted PSYCHIATRIC: Normal psychiatric evaluation. Limitations: no limitations Course Vital Signs 06/14/19 06/14/19 06/14/19 15:01 15:39 16:53 Temperature 97.9 F Pulse Rate 122 H 115 H 112 H Respiratory 18 20 18 Rate Blood Pressure 134/96 118/73 132/88 O2 Sat by Pulse 94 L 97 98 Oximetry Medical Decision Making - Medical Decision Making EKG shows a sinus tachycardia at 117 bpm NM interval is 172 QRS is 126 QT interval 326 QTC is 454. EKG shows no ST segment elevation or depression. Chest x-ray shows no acute abnormality. Patient was started on heparin because the unstable angina picture. I spoke with Dr. Tavares and he agreed to admit the patient admitted the patient I wrote admitting orders acute Respiratory Nitropaste on the floor. 2nd EKG shows sinus tach at rate of 111, NM interval is 174, QRS 124, Qt is 342, QTc is 465. no st seg. elevation - Lab Data Result diagrams: 06/14/19 15:19 06/14/19 15:19 Lab Results 06/14/19 06/14/19 06/14/19 Range/Units 15:19 15:19 15:19 WBC 10.3 (3.8-10.6) k/uL RBC 5.94 H (4.30-5.90) m/uL Hgb 17.3 (13.0-17.5) gm/dL Hct 50.3 (39.0-53.0) % MCV 84.7 (80.0-100.0) fL MCH 29.1 (25.0-35.0) pg MCHC 34.4 (31.0-37.0) g/dL RDW 12.9 (11.5-15.5) % Plt Count 214 (150-450) k/uL Neutrophils % 70 % Lymphocytes % 20 % Monocytes % 5 % Eosinophils % 2 % Basophils % 1 % Neutrophils # 7.2 (1.3-7.7) k/uL Lymphocytes # 2.0 (1.0-4.8) k/uL Monocytes # 0.5 (0-1.0) k/uL Eosinophils # 0.2 (0-0.7) k/uL Basophils # 0.1 (0-0.2) k/uL PT 9.5 (9.0-12.0) sec INR 0.9 (<1.2) APTT 22.5 (22.0-30.0) sec Sodium 131 L (137-145) mmol/L Potassium 4.7 (3.5-5.1) mmol/L Chloride 98 (98-107) mmol/L Carbon Dioxide 23 (22-30) mmol/L Anion Gap 10 mmol/L BUN 24 H (9-20) mg/dL Creatinine 0.76 (0.66-1.25) mg/dL Est GFR (CKD-EPI)AfAm >90 (>60 ml/min/1.73 sqM) Est GFR (CKD-EPI)NonAf >90 (>60 ml/min/1.73 sqM) Glucose 469 H (74-99) mg/dL Calcium 9.7 (8.4-10.2) mg/dL Magnesium 1.8 (1.6-2.3) mg/dL Total Bilirubin 1.4 H (0.2-1.3) mg/dL AST 20 (17-59) U/L ALT 18 (4-49) U/L Alkaline Phosphatase 123 (38-126) U/L Troponin I (0.000-0.034) ng/mL Total Protein 7.3 (6.3-8.2) g/dL Albumin 4.3 (3.5-5.0) g/dL 06/14/19 Range/Units 15:19 WBC (3.8-10.6) k/uL RBC (4.30-5.90) m/uL Hgb (13.0-17.5) gm/dL Hct (39.0-53.0) % MCV (80.0-100.0) fL MCH (25.0-35.0) pg MCHC (31.0-37.0) g/dL RDW (11.5-15.5) % Plt Count (150-450) k/uL Neutrophils % % Lymphocytes % % Monocytes % % Eosinophils % % Basophils % % Neutrophils # (1.3-7.7) k/uL Lymphocytes # (1.0-4.8) k/uL Monocytes # (0-1.0) k/uL Eosinophils # (0-0.7) k/uL Basophils # (0-0.2) k/uL PT (9.0-12.0) sec INR (<1.2) APTT (22.0-30.0) sec Sodium (137-145) mmol/L Potassium (3.5-5.1) mmol/L Chloride (98-107) mmol/L Carbon Dioxide (22-30) mmol/L Anion Gap mmol/L BUN (9-20) mg/dL Creatinine (0.66-1.25) mg/dL Est GFR (CKD-EPI)AfAm (>60 ml/min/1.73 sqM) Est GFR (CKD-EPI)NonAf (>60 ml/min/1.73 sqM) Glucose (74-99) mg/dL Calcium (8.4-10.2) mg/dL Magnesium (1.6-2.3) mg/dL Total Bilirubin (0.2-1.3) mg/dL AST (17-59) U/L ALT (4-49) U/L Alkaline Phosphatase (38-126) U/L Troponin I <0.012 (0.000-0.034) ng/mL Total Protein (6.3-8.2) g/dL Albumin (3.5-5.0) g/dL Critical Care Time Critical Care Time: Yes Total Critical Care Time: 35 Disposition Clinical Impression: Unstable angina pectoris Disposition: ADMITTED IP TO THIS [facility] Time of Disposition: 16:38
[2019-06-14 15:36] LABS: Basophils # (A) 0.1 k/uL (0-0.2); Basophils % (A) 1 %; Eosinophils # (A) 0.2 k/uL (0-0.7); Eosinophils % (A) 2 %; HCT 50.3 % (39.0-53.0); HGB 17.3 gm/dL (13.0-17.5); Lymphocytes % (A) 20 %; MCH 29.1 pg (25.0-35.0); MCHC 34.4 g/dL (31.0-37.0); MCV 84.7 fL (80.0-100.0); Mean Platelet Volume 7.8; Monocytes # (A) 0.5 k/uL (0-1.0); Monocytes % (A) 5 %; Neutrophils # (A) 7.2 k/uL (1.3-7.7); Neutrophils % (A) 70 %; Platelet Count 214 k/uL (150-450); RBC 5.94 m/uL (4.30-5.90); RDW 12.9 % (11.5-15.5); WBC 10.3 k/uL (3.8-10.6)
[2019-06-14 15:45] LABS: INR 0.9 (<1.2); Partial Thromboplastin Time 22.5 sec (22.0-30.0); Prothrombin Time 9.5 sec (9.0-12.0)
[2019-06-14 15:49] LABS: ALT 18 U/L (4-49); AST 20 U/L (17-59); African American GFR (CKD) >90 (>60 ml/min/1.73 sqM); Albumin 4.3 g/dL (3.5-5.0); Alkaline Phosphatase 123 U/L (38-126); Anion Gap 10 mmol/L; Blood Urea Nitrogen 24 mg/dL (9-20); Calcium 9.7 mg/dL (8.4-10.2); Carbon Dioxide 23 mmol/L (22-30); Chloride 98 mmol/L (98-107); Glucose 469 mg/dL (74-99); Magnesium 1.8 mg/dL (1.6-2.3); Non-African American GFR(CKD) >90 (>60 ml/min/1.73 sqM); Potassium 4.7 mmol/L (3.5-5.1); Sodium 131 mmol/L (137-145); Total Bilirubin 1.4 mg/dL (0.2-1.3); Total Protein 7.3 g/dL (6.3-8.2)
[2019-06-14] MEDS ORDERED: INSULIN ASPART (NovoLOG) 100 UNIT/ML VIAL SQ ONE (16:21)
[2019-06-14] MEDS ORDERED: HEPARIN SODIUM,PORCINE 5,000 UNIT/ML 1 ML VIAL IV ONE (16:36)
--- NOTE | 2019-06-14 16:36 | XR ---
EXAMINATION TYPE: XR chest 2V DATE OF EXAM: 06/14/2019 COMPARISON: 04/05/2019 HISTORY: Chest pain TECHNIQUE: FINDINGS: Heart and mediastinum are normal. Lungs are clear. Diaphragm is normal. Bony thorax is norm al. There is left axillary pacemaker. IMPRESSION: Normal chest. No change.
[2019-06-14] MEDS ORDERED: NITROGLYCERIN SL TABS 0.4 MG TAB SUBLINGUAL PRN (16:38)
[2019-06-14] MEDS ORDERED: HEPARIN SOD,PORK IN 0.45% NACL 25,000 UNIT in 0.45% NACL 1 250ML.BAG IV SCH (16:45)
[2019-06-14] MEDS ORDERED: MORPHINE SULFATE 2 MG/ML SYRINGE IVP STA (16:52)
[2019-06-14 16:57] LABS: Amphetamine Screen,Urine Not Detected (NotDetected); Barbiturate Screen,Urine Not Detected (NotDetected); Benzodiazepines Screen,Urine Not Detected (NotDetected); Cocaine Screen,Urine Not Detected (NotDetected); Methadone Screen, Urine Not Detected (NotDetected); Opiate Screen,Urine Not Detected (NotDetected); Oxycodone Screen, Urine Not Detected (NotDetected); Phencyclidine Screen,Urine Not Detected (NotDetected); Tricyclic Antidepressant,Urine Not Detected (NotDetected); Urn Cannabinoid Scrn Not Detected (NotDetected)
[2019-06-14] MEDS: NITROGLYCERIN OINT 1 INCH/GM PACKET TOPICAL SCH (19:13)
[2019-06-14 21:27] LABS: Glucose,Whole Blood 302 mg/dL (75-99)
[2019-06-14] MEDS ORDERED: ATORVASTATIN 80 MG TAB PO SCH (21:45)
[2019-06-14] MEDS ORDERED: INSULIN DETEMIR (LEVEMIR) 100 UNIT/ML SYR SQ SCH (22:00)
[2019-06-14] MEDS: metFORMIN 500 MG TAB PO SCH (22:06)
[2019-06-14] MEDS: LOSARTAN 25 MG TAB PO SCH (22:23)
[2019-06-14] MEDS: CARVEDILOL 3.125 MG TAB PO SCH (22:24)
[2019-06-14] MEDS: INSULIN ASPART (NovoLOG) 100 UNIT/ML VIAL SQ SCH (22:36)
[2019-06-15] MEDS: NITROGLYCERIN OINT 1 INCH/GM PACKET TOPICAL SCH ×2 (01:23→05:20)
[2019-06-15] MEDS ORDERED: HEPARIN SODIUM,PORCINE 5,000 UNIT/ML 1 ML VIAL IV STA (01:47)
[2019-06-15 03:28] LABS: Cholesterol 174 mg/dL (<200); HDL Cholesterol 28 mg/dL (40-60)
[2019-06-15 03:34] LABS: Triglycerides 960 mg/dL (<150)
[2019-06-15 07:12] LABS: Glucose,Whole Blood 267 mg/dL (75-99)
[2019-06-15] MEDS ORDERED: INSULIN ASPART (NovoLOG) 100 UNIT/ML VIAL SQ SCH (07:30)
[2019-06-15 08:45] VITALS: PULSE 99; RESP 18
[2019-06-15] MEDS ORDERED: NON FORMULARY DRUG (Aspirin Ec 81 MG) PO SCH (09:00)
[2019-06-15] MEDS ORDERED: FUROSEMIDE 40 MG TAB PO SCH (09:00)
[2019-06-15] MEDS ORDERED: ASPIRIN 325 MG TAB PO SCH (09:00)
[2019-06-15] MEDS ORDERED: SPIRONOLACTONE 25 MG TAB PO SCH (09:00)
[2019-06-15 09:05] LABS: D-Dimer 0.23 mg/L FEU (<0.60); Partial Thromboplastin Time 29.4 sec (22.0-30.0)
[2019-06-15] MEDS: INSULIN ASPART (NovoLOG) 100 UNIT/ML VIAL SQ SCH ×2 (09:58→12:00)
[2019-06-15] MEDS: metFORMIN 500 MG TAB PO SCH (09:58)
[2019-06-15] MEDS: CARVEDILOL 3.125 MG TAB PO SCH (09:59)
[2019-06-15] MEDS: LOSARTAN 25 MG TAB PO SCH (09:59)
--- NOTE | 2019-06-15 10:21 | CT ---
EXAMINATION TYPE: CT angio chest DATE OF EXAM: 06/15/2019 COMPARISON: 10/23/2018 HISTORY: Chest pain, back pains, unstable angina CT DLP: 2096.1 mGycm CONTRAST: CTA thoracic aorta with 3-D reconstruction is performed and with IV Contrast, patient injected with 1 00 mL of Isovue 370. Contrast CTA of the thoracic aorta was performed from the lung apex through the upper abdomen. 3D re construction imaging obtained at a separate workstation. CT Chest: THORACIC AORTA: No evidence for thoracic aortic aneurysm. Mild atheromatous changes seen. There is n o evidence for dissection or periaortic collection. LUNGS: The lungs are clear and free of infiltrate or atelectasis. No pulmonary nodule or mass is det ected. No pleural effusion or CT evidence of interstitial lung disease. MEDIASTINUM: No evidence for mediastinal hematoma. The heart is not enlarged. No evidence for med iastinal mass or adenopathy. HILAR STRUCTURES: No evidence for mass. No hilar adenopathy is appreciated. OTHER: Probable hepatic hemangioma could be confirmed with ultrasound. IMPRESSION- 1. No evidence for thoracic aortic aneurysm. 2. Lungs are clear. 3. No significant degenerative change thoracic spine.
[2019-06-15 11:13] VITALS: BP 116/87; TEMP 97.6
--- NOTE | 2019-06-15 11:22 | P.CRDCN ---
History of Present Illness History of present illness: HISTORY OF PRESENTING ILLNESS This is a pleasant 39-year-old male past medical history significant for coronary artery disease status post stent placement 2016, ischemic cardiomyopathy status post AICD placement, hypertension, dyslipidemia, diabetes mellitus, obstructive sleep apnea noncompliant with CPAP and morbid obesity. He follows in the office with Dr. Hernandez. We have been asked to see in consultation for chest pain. He states yesterday he was having intermittent episodes of pain in the midsternal and epigastric region with radiation through to the back mostly on the right side. The pain was associated with mild shortness of breath. He had no nausea, vomiting, palpitations, dizziness or diaphoresis. On arrival he was given sublingual nitroglycerin and morphine. This did subside his discomfort. He has had no further symptoms of chest discomfort since arriving at the hospital. DIAGNOSTICS EKG reveals sinus tachycardia heart rate 117 with intraventricular conduction delay. Telemetry tracings unremarkable. Chest xray negative for an acute cardiopulmonary process. CTA of the chest reveals clear lungs with no thoracic aortic abnormality. Laboratory reviewed, d-dimer 0.23, triglycerides 960, cardiac enzymes negative 3, CBC unremarkable, sodium 131, potassium 4.7, creatinine 0.76, blood glucose on arrival 469, magnesium 1.8, NT proBNP 410. Current cardiac medications include aspirin 81 mg daily, atorvastatin 80 mg daily, carvedilol 3.125 mg daily, Lasix 40 mg twice a day, losartan 25 mg daily and Aldactone 25 mg daily. Most recent stress test October 2018 was negative for reversible cardiac ischemia with diminished LV EF of 13%. Evidence of old infarct along the inferior and inferolateral wall. Most recent echocardiogram obtained in September 2018 revealed severely impaired LV systolic function with ejection fraction 25-30%, moderate global hypokinesia, moderate MR, moderate to severe TR and moderate pulmonary hypertension with RVSP of 51 mmHg. Most recent cardiac catheterization performed in 2015 in the setting of an acute non-ST elevated myocardial infarction revealed severe triple-vessel coronary artery disease, total occlusion of the mid RCA, severe disease involving the first OM branch of the circumflex and severe disease of the first diagonal branch of the LAD. At that time he underwent successful stent placement to the RCA. REVIEW OF SYSTEMS At the time of my exam: CONSTITUTIONAL: Denies fever or chills. CARDIOVASCULAR: Denies chest pain, shortness of breath, orthopnea, PND or palpitations. RESPIRATORY: Denies cough. GASTROINTESTINAL: Denies abdominal pain, diarrhea, constipation, nausea or vomiting. MUSCULOSKELETAL: Denies myalgias. NEUROLOGIC: Denies numbness, tingling or weakness. ENDOCRINE: Denies fatigue, weight change, polydipsia or polyurina. GENITOURINARY: Denies burning, hematuria or urgency with micturation. HEMATOLOGIC: Denies history of anemia or bleeding. PHYSICAL EXAMINATION Blood pressure 116/87 heart rate 99 afebrile and maintaining oxygen saturation on room air. CONSTITUTIONAL: No apparent distress. Morbidly obese. HEENT: Head is normocephalic. Pupils are equal, round. Sclerae anicteric. Mucous membranes of the mouth are moist. No JVD. No carotid bruit. CHEST EXAMINATION: Lungs are clear to auscultation. No chest wall tenderness is noted on palpation or with deep breathing. HEART EXAMINATION: Regular rate and rhythm. S1, S2 heard. No murmurs, gallops or rub. ABDOMEN: Soft, nontender. Positive bowel sounds. EXTREMITIES: 2+ peripheral pulses, no lower extremity edema and no calf tenderness. NEUROLOGIC EXAMINATION: Patient is awake, alert and oriented x3. ASSESSMENT Chest pain, atypical. An acute event has been ruled out. Ischemic cardiomyopathy, EF 25-30% s/p AICD placement Coronary artery disease s/p PCI Diabetes mellitus, uncontrolled Hypertension Dyslipidemia with severely elevated triglycerides Obstructive sleep apnea Morbid obesity, BMI 44 Former nicotine dependence PLAN An acute event has been ruled out. Recent stress testing unremarkable. Recommend maximizing his medical therapy by increase coreg to BID rather than daily and initiation of vascepa 2 gram BID for lowering of triglycerides. Diabetes management per primary care physician. Follow up on discharge with Dr. Hernandez. Thank you kindly for this consultation. Nurse Practitioner note has been reviewed, I agree with a documented findings and plan of care. Patient was seen and examined. Past Medical History Past Medical History: Coronary Artery Disease (CAD), Chest Pain / Angina, Heart Failure, Diabetes Mellitus, Hyperlipidemia, Hypertension, Myocardial Infarction ([place]), Sleep Apnea/CPAP/BIPAP, Syncope Additional Past Medical History / Comment(s): Cardiiomyopathy with AICD, IDDM type II, neuropathy bilateral feet, SP with Cpap use, migraines, chronic back pain. Last Myocardial Infarction Date:: 2015 History of Any Multi-Drug Resistant Organisms: None Reported Past Surgical History: AICD, Heart Catheterization, Heart Catheterization With Stent Additional Past Surgical History / Comment(s): 10/27/12 AICD, DFTs, PCI with stent Past Anesthesia/Blood Transfusion Reactions: No Reported Reaction Date of Last Stent Placement:: 02/03/16 Type of Cardiac Device: AICD Device Placement Date:: 2012 Past Psychological History: Anxiety Smoking Status: Former smoker Past Alcohol Use History: None Reported Past Drug Use History: None Reported - Past Family History Mother Family Medical History: No Reported History Additional Family Medical History / Comment(s): Mother is healthy Brother(s) Family Medical History: Myocardial Infarction ([place]) Additional Family Medical History / Comment(s): Brother of a [place] at the age of 35yrs. Father Family Medical History: Liver Disease Additional Family Medical History / Comment(s): Father when pt was 19 yrs old from liver disease. He was an alcoholic. Medications and Allergies Home Medications Medication Instructions Recorded Confirmed Type Aspirin EC [Ecotrin Low Dose] 81 mg PO DAILY 10/13/18 06/14/19 History Atorvastatin [Lipitor] 80 mg PO HS #90 tab 10/16/18 06/14/19 Rx Carvedilol [Coreg] 3.125 mg PO DAILY #180 tab 10/16/18 06/14/19 Rx Furosemide [Lasix] 40 mg PO BID@0900,1600 #180 tab 10/16/18 06/14/19 Rx Nitroglycerin Sl Tabs [Nitrostat] 0.4 mg SUBLINGUAL Q5M PRN #20 tab 10/16/18 06/14/19 Rx Spironolactone [Aldactone] 25 mg PO DAILY #90 tab 10/16/18 06/14/19 Rx Losartan [Cozaar] 25 mg PO DAILY 03/11/19 06/14/19 History Insulin Glargine,Hum.rec.anlog 120 unit SQ HS 04/05/19 06/14/19 History [Basaglar Kwikpen U-100] metFORMIN HCL 1,000 mg PO DAILY 06/14/19 06/14/19 History Allergies Allergy/AdvReac Type Severity Reaction Status Date / Time Penicillins Allergy Unknown Verified 06/14/19 15:56 Childhood Physical Exam Vitals: Vital Signs Temp Pulse Pulse Pulse Resp BP BP 06/15/19 08:00 97.5 F L 99 18 02/24/20 03:56 97.3 F L 103 H 17 130/85 06/15/19 03:40 17 06/14/19 23:30 103 H 16 06/14/19 21:20 98.3 F 110 H 16 128/82 06/14/19 19:40 103 H 16 06/14/19 17:17 98.1 F 114 H 18 139/99 06/14/19 16:53 112 H 18 132/88 06/14/19 15:39 115 H 20 118/73 06/14/19 15:01 97.9 F 122 H 18 134/96 BP Pulse Ox 06/15/19 08:00 113/82 95 06/15/19 03:56 96 06/15/19 03:40 06/14/19 23:30 06/14/19 21:20 95 06/14/19 19:40 06/14/19 17:17 96 06/14/19 16:53 98 06/14/19 15:39 97 06/14/19 15:01 94 L Intake and Output 06/14/19 06/15/19 06/15/19 22:59 06:59 14:59 Intake Total 960 334.364 125 Balance 960 334.364 125 Intake: Intake, IV Titration 94.364 Amount Heparin Sod,Pork in 0.45% 94.364 NaCl 25,000 unit In 0.45 % NaCl 1 250ml.bag @ 6.7 UNITS/KG/HR 9.968 mls/hr IV .Q24H [facility] Rx#: [id number] Oral 960 240 125 Other: # Voids 1 1 Weight 148.778 kg Results 06/14/19 15:19 06/14/19 15:19 Cardiac Enzymes 06/14/19 06/14/19 06/14/19 Range/Units 15:19 15:19 21:04 AST 20 (17-59) U/L Troponin I <0.012 <0.012 (0.000-0.034) ng/mL 06/15/19 Range/Units 03:03 AST (17-59) U/L Troponin I <0.012 (0.000-0.034) ng/mL Coagulation 06/14/19 06/15/19 06/15/19 Range/Units 15:19 01:08 08:41 PT 9.5 (9.0-12.0) sec APTT 22.5 23.7 29.4 (22.0-30.0) sec Lipids 06/15/19 Range/Units 03:03 Triglycerides 960 H (<150) mg/dL Cholesterol 174 (<200) mg/dL HDL Cholesterol 28 L (40-60) mg/dL CBC 06/14/19 Range/Units 15:19 WBC 10.3 (3.8-10.6) k/uL RBC 5.94 H (4.30-5.90) m/uL Hgb 17.3 (13.0-17.5) gm/dL Hct 50.3 (39.0-53.0) % Plt Count 214 (150-450) k/uL Comprehensive Metabolic Panel 06/14/19 Range/Units 15:19 Sodium 131 L (137-145) mmol/L Potassium 4.7 (3.5-5.1) mmol/L Chloride 98 (98-107) mmol/L Carbon Dioxide 23 (22-30) mmol/L BUN 24 H (9-20) mg/dL Creatinine 0.76 (0.66-1.25) mg/dL Glucose 469 H (74-99) mg/dL Calcium 9.7 (8.4-10.2) mg/dL AST 20 (17-59) U/L ALT 18 (4-49) U/L Alkaline Phosphatase 123 (38-126) U/L Total Protein 7.3 (6.3-8.2) g/dL Albumin 4.3 (3.5-5.0) g/dL Current Medications Generic Name Dose Route Start Last Admin Trade Name Freq PRN Reason Stop Dose Admin Aspirin 81 mg 06/16/19 09:00 Aspirin PO DAILY [facility] Atorvastatin Calcium 80 mg 06/14/19 21:45 06/14/19 22:24 Lipitor PO 80 mg HS KSENAI Administration Carvedilol 3.125 mg 06/14/19 21:45 06/15/19 09:59 Coreg PO 3.125 mg [id number] KSENIA Administration Furosemide 40 mg 06/15/19 09:00 06/15/19 09:59 Lasix PO 40 mg BID@0900,1600 KSENIA Administration Insulin Aspart 0 unit 06/14/19 22:07 06/15/19 09:58 Novolog SQ 6 unit ACHS KSENIA Administration Protocol Insulin Detemir 120 unit 06/14/19 22:00 06/14/19 22:24 Levemir SQ 120 unit HS SKENIA Administration Losartan Potassium 25 mg 06/14/19 22:00 06/15/19 09:59 Cozaar PO 25 mg DAILY KSENIA Administration Metformin HCl 1,000 mg 06/14/19 22:00 06/15/19 09:58 Glucophage PO 1,000 mg DAILY KSENIA Administration Nitroglycerin 0.4 mg 06/14/19 16:38 Nitrostat SUBLINGUAL Q5M PRN Chest Pain Spironolactone 25 mg 06/15/19 09:00 06/15/19 09:58 Aldactone PO 25 mg DAILY KSENIA Administration Intake and Output 06/14/19 06/15/19 06/15/19 22:59 06:59 14:59 Intake Total 960 334.364 125 Balance 960 334.364 125 Intake: Intake, IV Titration 94.364 Amount Heparin Sod,Pork in 0.45% 94.364 NaCl 25,000 unit In 0.45 % NaCl 1 250ml.bag @ 6.7 UNITS/KG/HR 9.968 mls/hr IV .Q24H [facility] Rx#: [id number] Oral 960 240 125 Other: # Voids 1 1 Weight 148.778 kg 06/14/19 15:19 06/14/19 15:19
[2019-06-15 11:38] LABS: Glucose,Whole Blood 372 mg/dL (75-99)
[2019-06-15] MEDS ORDERED: CARVEDILOL 3.125 MG TAB PO SCH (17:30)
--- NOTE | 2019-06-15 19:01 | HP ---
HISTORY AND PHYSICAL CHIEF COMPLAINT: Chest pain. HISTORY OF PRESENT ILLNESS: This is another admission for this 39-year-old gentleman who has a longstanding history of severe coronary artery disease, uncontrolled diabetes and hypertension. He came back into the emergency room with chest pain with normal enzymes. His blood sugar was over 600. He is very noncompliant. REVIEW OF SYSTEMS: He denies headaches, neurologic problems, shortness of breath, nausea, vomiting, abdominal pain, diarrhea, melena, hematochezia, renal failure, etc. Past medical history, family history, and personal and social histories are all otherwise unremarkable and unchanged from his last admission. He is ALLERGIC to PENICILLIN. When he was last seen he was on Basaglar 120 units once a day, metformin 1 gram once a day, nitroglycerin p.r.n., losartan 25 once a day, spironolactone 25 once a day, Lasix 40 twice a day, lisinopril 2.5 once a day, carvedilol 3.125 twice a day, ibuprofen 800 mg 4 times a day. He used to smoke but has quit. He states he is nondrinker. PHYSICAL EXAMINATION: Blood pressure is 112/70, pulse 84, respirations 16. He is afebrile. In general he appeared to be obese and in no acute distress. Skin color is normal. Skin is warm and dry. Lymph nodes are not enlarged. Head, ears, eyes, nose, mouth and throat are normal. Neck veins are not distended. Thyroid is not enlarged. Chest is clear. Cardiac exam is normal with normal sinus rhythm and no murmurs or extra sounds. The abdomen is protuberant, soft, nontender without visceromegaly or masses. Bowel sounds are present. Extremities are normal. Neurologically he is intact. IMPRESSION: 1. Unstable angina pectoris. 2. Coronary artery disease. 3. Uncontrolled insulin-dependent diabetes mellitus. 4. Congestive heart failure. 5. Obesity. PLAN: 1. Bed rest. 2. IV fluids. 3. Serial EKGs and enzymes. 4. Consult Cardiology. 5. Encourage patient to take better care of himself, given his extremely poor outlook. MMODL / IJN: [id number] /
[2019-06-16] MEDS ORDERED: ASPIRIN 81 MG PO SCH (09:00)
--- NOTE | 2019-06-24 06:51 | DS ---
DISCHARGE SUMMARY CHIEF COMPLAINT: Chest pain. HISTORY OF PRESENT ILLNESS AND PHYSICAL EXAM: Details of this 39-year-old, white male's history can be found in the initial workup. LABORATORY STUDIES: While he was in the hospital, he had laboratory studies, details of which can be found in the laboratory section of his chart. COURSE IN THE HOSPITAL: After admission, he was placed on bedrest and started on intravenous fluids and he had serial EKGs. He is seen by Cardiology who felt that he did not require any further cardiac evaluation. His enzymes remained normal. He is doing well. It was felt that he could go home on the and he will go on his usual activity, diet, and medication. He was encouraged to start taking better care of himself, specifically, taking his insulin and that his blood sugar was over 600 when he came in. He will follow up in the office in a day or two. FINAL DIAGNOSES: 1. Unstable angina pectoris. 2. Coronary artery disease. 3. Cardiomyopathy. 4. Congestive heart failure. 5. Uncontrolled insulin-dependent diabetes mellitus. 6. CKD apparitions. OPERATIONS: None. CONSULTATION: Cardiology. He is improved. MMODL / IJN: [id number] /
== END 2019-06-15 12:33 | disposition home or self-care (01) ==
LOC: EC 14:44 → 1SOBS 16:38 → OBSVTOIN 21:56 → INTOOBSV 21:56
PROVIDERS: ADMIT Family Medicine; ATTEND Family Medicine
DX: I25.110 Atherosclerotic heart disease of native coronary artery with unstable angina pectoris (principal); I11.0 Hypertensive heart disease with heart failure; I50.9 Heart failure, unspecified; E78.5 Hyperlipidemia, unspecified; I25.5 Ischemic cardiomyopathy; E78.00 Pure hypercholesterolemia, unspecified; I27.20 Pulmonary hypertension, unspecified; E11.65 Type 2 diabetes mellitus with hyperglycemia; E11.42 Type 2 diabetes mellitus with diabetic polyneuropathy; Z79.4 Long term (current) use of insulin; Z87.891 Personal history of nicotine dependence; G47.33 Obstructive sleep apnea (adult) (pediatric); Z99.89 Dependence on other enabling machines and devices; G89.29 Other chronic pain; I45.9 Conduction disorder, unspecified; M54.9 Dorsalgia, unspecified; Z95.810 Presence of automatic (implantable) cardiac defibrillator; Z82.49 Family history of ischemic heart disease and other diseases of the circulatory system; Z81.1 Family history of alcohol abuse and dependence; Z83.79 Family history of other diseases of the digestive system; E66.01 Morbid (severe) obesity due to excess calories; Z68.41 Body mass index [BMI] 40.0-44.9, adult; Z79.82 Long term (current) use of aspirin; Z79.899 Other long term (current) drug therapy; Z88.0 Allergy status to penicillin
CPT/HCPCS: 93005 ×2; 96366 ×2; 96376 ×2; 96365; 96375; 99291; 36415; 85379; 83880; 80061; 80053; 83735; 84484 ×2; 85025; 85610; 85730 ×2; 80306; 71046; 71275; G0378 ×2; J1644 ×3; J2270; Q9967; 96374

== ENCOUNTER 2019-09-11 00:24 | Inpatient (IN) | payer OTHER ==
[2019-09-11 01:24] LABS: Basophils # (A) 0.1 k/uL (0-0.2); Basophils % (A) 2 %; Eosinophils # (A) 0.3 k/uL (0-0.7); Eosinophils % (A) 3 %; HCT 49.2 % (39.0-53.0); HGB 16.5 gm/dL (13.0-17.5); Lymphocytes # (A) 2.4 k/uL (1.0-4.8); Lymphocytes % (A) 26 %; MCH 29.2 pg (25.0-35.0); MCHC 33.6 g/dL (31.0-37.0); MCV 87.1 fL (80.0-100.0); Mean Platelet Volume 8.9; Monocytes # (A) 0.6 k/uL (0-1.0); Monocytes % (A) 7 %; Neutrophils # (A) 5.7 k/uL (1.3-7.7); Neutrophils % (A) 61 %; Platelet Count 235 k/uL (150-450); RBC 5.65 m/uL (4.30-5.90); RDW 14.8 % (11.5-15.5); WBC 9.4 k/uL (3.8-10.6)
[2019-09-11 01:32] LABS: ALT 19 U/L (4-49); AST 32 U/L (17-59); African American GFR (CKD) >90 (>60 ml/min/1.73 sqM); Albumin 3.9 g/dL (3.5-5.0); Alkaline Phosphatase 126 U/L (38-126); Anion Gap 12 mmol/L; Blood Urea Nitrogen 20 mg/dL (9-20); Calcium 9.2 mg/dL (8.4-10.2); Carbon Dioxide 23 mmol/L (22-30); Chloride 97 mmol/L (98-107); Glucose 430 mg/dL (74-99); Non-African American GFR(CKD) >90 (>60 ml/min/1.73 sqM); Potassium 4.4 mmol/L (3.5-5.1); Sodium 132 mmol/L (137-145); Total Bilirubin 1.5 mg/dL (0.2-1.3); Total Protein 6.8 g/dL (6.3-8.2)
--- NOTE | 2019-09-11 01:32 | XR ---
EXAMINATION TYPE: XR chest 2V DATE OF EXAM: 09/11/2019 COMPARISON: 06/14/2019 HISTORY: Difficulty breathing TECHNIQUE: FINDINGS: Heart is borderline enlarged. There is no heart failure. There is a left axillary pacemaker . There is no pleural effusion. Bony thorax is intact. Pulmonary vascularity is normal. IMPRESSION: Mild cardiomegaly that is increased compared to last exam. No heart failure seen.
--- NOTE | 2019-09-11 01:34 | XR ---
EXAMINATION TYPE: XR KUB DATE OF EXAM: 09/11/2019 COMPARISON: NONE HISTORY: Abdominal pain TECHNIQUE: 2 views FINDINGS: 2 views upright were obtained and show no sign of intestinal obstruction or pneumoperitoneu m. Fecal pattern is normal. There is no sign of a mass. Lung bases are clear. There are no pathologic calcifications. Bony structures are intact. IMPRESSION: Nonacute abdomen.
--- NOTE | 2019-09-11 01:58 | ED ---
General Adult HPI - General Chief complaint: Abdominal Pain Stated complaint: Abdominal Pain Time Seen by Provider: 09/11/19 00:47 Source: patient, family, RN notes reviewed, old records reviewed Mode of arrival: ambulatory Limitations: no limitations - History of Present Illness Initial comments: 39-year-old male presenting for evaluation of positional dyspnea and abdominal distention. Patient has history of congestive heart failure. He states that for the past day he said dyspnea which is worse with lying flat. He denies central chest pain. He denies cough or fever. Denies lower extremity swelling. He is currently on Lasix 40 mg twice daily. He also reports some abdominal distention, no abdominal pain. No vomiting or diarrhea. - Related Data Home Medications Medication Instructions Recorded Confirmed Aspirin EC [Ecotrin Low Dose] 81 mg PO DAILY 10/13/18 06/14/19 Losartan [Cozaar] 25 mg PO DAILY 03/11/19 06/14/19 Insulin Glargine,Hum.rec.anlog 120 unit SQ HS 04/05/19 06/14/19 [Basaglar Kwikpen U-100] metFORMIN HCL 1,000 mg PO DAILY 06/14/19 06/14/19 Previous Rx's Medication Instructions Recorded Atorvastatin [Lipitor] 80 mg PO HS #90 tab 10/16/18 Carvedilol [Coreg] 3.125 mg PO DAILY #180 tab 10/16/18 Furosemide [Lasix] 40 mg PO BID@0900,1600 #180 tab 10/16/18 Nitroglycerin Sl Tabs [Nitrostat] 0.4 mg SUBLINGUAL Q5M PRN #20 tab 10/16/18 Spironolactone [Aldactone] 25 mg PO DAILY #90 tab 10/16/18 Icosapent Ethyl [Vascepa] 2 gm PO BID #180 capsule 06/15/19 Allergies Allergy/AdvReac Type Severity Reaction Status Date / Time Penicillins Allergy Unknown Verified 09/11/19 00:34 Childhood Review of Systems ROS Statement: Those systems with pertinent positive or pertinent negative responses have been documented in the HPI. ROS Other: All systems not noted in ROS Statement are negative. Past Medical History Past Medical History: Coronary Artery Disease (CAD), Chest Pain / Angina, Heart Failure, Diabetes Mellitus, Hyperlipidemia, Hypertension, Myocardial Infarction ([place]), Sleep Apnea/CPAP/BIPAP, Syncope Additional Past Medical History / Comment(s): Cardiiomyopathy with AICD, IDDM type II, neuropathy bilateral feet, SP with Cpap use, migraines, chronic back pain. Last Myocardial Infarction Date:: 2015 History of Any Multi-Drug Resistant Organisms: None Reported Past Surgical History: AICD, Heart Catheterization, Heart Catheterization With Stent Additional Past Surgical History / Comment(s): 10/27/12 AICD, DFTs, PCI with stent Past Anesthesia/Blood Transfusion Reactions: No Reported Reaction Date of Last Stent Placement:: 02/03/16 Type of Cardiac Device: AICD Device Placement Date:: 2012 Past Psychological History: Anxiety Smoking Status: Former smoker Past Alcohol Use History: None Reported Past Drug Use History: None Reported - Past Family History Mother Family Medical History: No Reported History Additional Family Medical History / Comment(s): Mother is healthy Brother(s) Family Medical History: Myocardial Infarction ([place]) Additional Family Medical History / Comment(s): Brother of a [place] at the age of 35yrs. Father Family Medical History: Liver Disease Additional Family Medical History / Comment(s): Father when pt was 19 yrs old from liver disease. He was an alcoholic. General Exam Limitations: no limitations General appearance: alert, in no apparent distress Head exam: Present: atraumatic, normocephalic Eye exam: Present: PERRL ENT exam: Present: normal exam Neck exam: Present: normal inspection. Absent: tenderness, meningismus Respiratory exam: Present: rales. Absent: respiratory distress Cardiovascular Exam: Present: normal rhythm, tachycardia GI/Abdominal exam: Present: soft. Absent: distended, tenderness, guarding, rebound Extremities exam: Present: normal inspection, normal capillary refill. Absent: pedal edema Back exam: Present: normal inspection, full ROM Neurological exam: Present: alert, oriented X3 Psychiatric exam: Present: normal affect, normal mood Skin exam: Present: warm, dry, intact, normal color. Absent: cyanosis, diaphoretic Course Vital Signs 09/11/19 09/11/19 00:28 02:27 Temperature 97.7 F Pulse Rate 110 H 100 Respiratory 20 21 Rate Blood Pressure 131/97 132/90 O2 Sat by Pulse 99 96 Oximetry EKG Findings - EKG Comments: EKG Findings:: EKG: Sinus tachycardia, left atrial enlargement slightly widened QRS, rate of 107, NC interval 192, QRS duration 124, QTC 477, no ST segment elevation, no significant change compared to prior Medical Decision Making - Medical Decision Making 39 -year-old male presenting with chief complaint of orthopnea and abdominal distention. Patient has history of ischemic cardiomyopathy, congestive heart failure, status post AICD. EKG showing sinus tachycardia, no ST segment elevation, no significant change compared to prior. Patient has no active chest pain. After workup is initiated which included CBC, CMP, BNP and troponin. He is noted to have a significantly elevated troponin at 2.6. I did inquire further about chest pain with this patient who now admits that he had an episode of chest pain 5 days prior which lasted approximately one hour. He did not seek medical care at this time. I suspect he may have had a cardiac event at this time. Chest x-ray showing cardiomegaly, no focal pneumonia, no CHF. Case is discussed with cardiology, Dr. Craig, echo will be obtained, heparin initiated in the emergency department. Patient given an additional dose of his beta pernell Coreg. Serial cardiac enzymes will be obtained. Patient is admitted to Dr. Dan who has accepted this admission. - Lab Data Result diagrams: 09/11/19 01:15 09/11/19 01:15 Lab Results 09/11/19 09/11/19 09/11/19 Range/Units 01:15 01:15 01:15 WBC 9.4 (3.8-10.6) k/uL RBC 5.65 (4.30-5.90) m/uL Hgb 16.5 (13.0-17.5) gm/dL Hct 49.2 (39.0-53.0) % MCV 87.1 (80.0-100.0) fL MCH 29.2 (25.0-35.0) pg MCHC 33.6 (31.0-37.0) g/dL RDW 14.8 (11.5-15.5) % Plt Count 235 (150-450) k/uL Neutrophils % 61 % Lymphocytes % 26 % Monocytes % 7 % Eosinophils % 3 % Basophils % 2 % Neutrophils # 5.7 (1.3-7.7) k/uL Lymphocytes # 2.4 (1.0-4.8) k/uL Monocytes # 0.6 (0-1.0) k/uL Eosinophils # 0.3 (0-0.7) k/uL Basophils # 0.1 (0-0.2) k/uL Sodium 132 L (137-145) mmol/L Potassium 4.4 (3.5-5.1) mmol/L Chloride 97 L (98-107) mmol/L Carbon Dioxide 23 (22-30) mmol/L Anion Gap 12 mmol/L BUN 20 (9-20) mg/dL Creatinine 0.80 (0.66-1.25) mg/dL Est GFR (CKD-EPI)AfAm >90 (>60 ml/min/1.73 sqM) Est GFR (CKD-EPI)NonAf >90 (>60 ml/min/1.73 sqM) Glucose 430 H (74-99) mg/dL POC Glucose (mg/dL) (75-99) mg/dL POC Glu Web Analytics Developer ID Calcium 9.2 (8.4-10.2) mg/dL Magnesium 2.0 (1.6-2.3) mg/dL Total Bilirubin 1.5 H (0.2-1.3) mg/dL AST 32 (17-59) U/L ALT 19 (4-49) U/L Alkaline Phosphatase 126 (38-126) U/L Troponin I 2.610 H* (0.000-0.034) ng/mL NT-Pro-B Natriuret Pep pg/mL Total Protein 6.8 (6.3-8.2) g/dL Albumin 3.9 (3.5-5.0) g/dL 09/11/19 09/11/19 Range/Units 01:15 02:20 WBC (3.8-10.6) k/uL RBC (4.30-5.90) m/uL Hgb (13.0-17.5) gm/dL Hct (39.0-53.0) % MCV (80.0-100.0) fL MCH (25.0-35.0) pg MCHC (31.0-37.0) g/dL RDW (11.5-15.5) % Plt Count (150-450) k/uL Neutrophils % % Lymphocytes % % Monocytes % % Eosinophils % % Basophils % % Neutrophils # (1.3-7.7) k/uL Lymphocytes # (1.0-4.8) k/uL Monocytes # (0-1.0) k/uL Eosinophils # (0-0.7) k/uL Basophils # (0-0.2) k/uL Sodium (137-145) mmol/L Potassium (3.5-5.1) mmol/L Chloride (98-107) mmol/L Carbon Dioxide (22-30) mmol/L Anion Gap mmol/L BUN (9-20) mg/dL Creatinine (0.66-1.25) mg/dL Est GFR (CKD-EPI)AfAm (>60 ml/min/1.73 sqM) Est GFR (CKD-EPI)NonAf (>60 ml/min/1.73 sqM) Glucose (74-99) mg/dL POC Glucose (mg/dL) 403 H (75-99) mg/dL POC Glu Web Analytics Developer ID Fadumo Mares A Calcium (8.4-10.2) mg/dL Magnesium (1.6-2.3) mg/dL Total Bilirubin (0.2-1.3) mg/dL AST (17-59) U/L ALT (4-49) U/L Alkaline Phosphatase (38-126) U/L Troponin I (0.000-0.034) ng/mL NT-Pro-B Natriuret Pep 848 pg/mL Total Protein (6.3-8.2) g/dL Albumin (3.5-5.0) g/dL Critical Care Time Critical Care Time: Yes Total Critical Care Time: 35 Disposition Clinical Impression: CHF exacerbation, NSTEMI (non-ST elevated myocardial infarction) Disposition: ADMITTED IP TO THIS [facility] Condition: Stable Is patient prescribed a controlled substance at d/c from ED?: No Referrals: Amrit Dan MD [Primary Care Provider] - 1-2 days Decision to Admit Reason: Admit from EC Decision Date: 09/11/19 Decision Time: 02:58
[2019-09-11] MEDS ORDERED: INSULIN REGULAR 100 UNIT/ML VIAL IV ONE (01:59)
[2019-09-11] MEDS ORDERED: FUROSEMIDE 10 MG/ML 4 ML VIAL IV STA (01:59)
[2019-09-11 02:31] LABS: Glucose,Whole Blood 403 mg/dL (75-99)
[2019-09-11] MEDS ORDERED: ASPIRIN 325 MG TAB PO STA ×2 (02:31→09:29)
[2019-09-11] MEDS ORDERED: HEPARIN SODIUM,PORCINE 5,000 UNIT/ML 1 ML VIAL IV PRN (02:44)
[2019-09-11] MEDS ORDERED: HEPARIN SODIUM,PORCINE 5,000 UNIT/ML 1 ML VIAL IV ONE (02:44)
[2019-09-11] MEDS ORDERED: HEPARIN SOD,PORK IN 0.45% NACL 25,000 UNIT in 0.45% NACL 1 250ML.BAG IV SCH (02:45)
[2019-09-11] MEDS ORDERED: NITROGLYCERIN SL TABS 0.4 MG TAB SUBLINGUAL PRN ×3 (02:49→12:47)
[2019-09-11] MEDS ORDERED: CARVEDILOL 3.125 MG TAB PO STA (02:50)
[2019-09-11] MEDS ORDERED: NALOXONE 0.4 MG/ML 1 ML VIAL IV PRN (02:53)
[2019-09-11 03:34] LABS: Partial Thromboplastin Time 22.5 sec (22.0-30.0); Prothrombin Time 10.6 sec (9.0-12.0)
[2019-09-11] MEDS: MORPHINE SULFATE 4 MG/ML SYRINGE IV PRN ×2 (04:02→08:53)
[2019-09-11 06:11] LABS: Glucose,Whole Blood 377 mg/dL (75-99)
[2019-09-11] MEDS: INSULIN ASPART (NovoLOG) 100 UNIT/ML VIAL SQ SCH ×4 (06:21→20:32)
[2019-09-11] MEDS: SPIRONOLACTONE 25 MG TAB PO SCH (08:53)
[2019-09-11] MEDS: CARVEDILOL 3.125 MG TAB PO SCH (08:53)
[2019-09-11] MEDS: ASPIRIN 81 MG PO SCH (08:53)
[2019-09-11] MEDS: FUROSEMIDE 40 MG TAB PO SCH ×2 (08:53→17:40)
[2019-09-11] MEDS ORDERED: metFORMIN 500 MG TAB PO SCH (09:00)
[2019-09-11] MEDS ORDERED: ALPRAZolam 0.25 MG TAB PO PRN (09:29)
[2019-09-11] MEDS ORDERED: ALPRAZolam 0.5 MG TAB PO PRN (09:29)
[2019-09-11] MEDS ORDERED: ATORVASTATIN 80 MG TAB PO STA (09:29)
[2019-09-11] MEDS ORDERED: SODIUM CHLORIDE 0.9% 1,000 ML in EMPTY BAG 1 BAG IV ONE (09:29)
[2019-09-11] MEDS ORDERED: LIDOCAINE 1% INJ 10MG/ML (20 ML MDV) ONE (10:35)
[2019-09-11] MEDS ORDERED: VERAPAMIL 2.5 MG/ML 2 ML AMP ONE (10:35)
--- NOTE | 2019-09-11 10:42 | ECHOF ---
Referral Reason:CHF, NSTEMI MEASUREMENTS -------- HEIGHT: 182.9 cm WEIGHT: 147.0 kg BP: 157/86 RVIDd: 3.9 cm (< 3.3) IVSd: 1.3 cm (0.6 - 1.1) LVIDd: 6.0 cm (3.9 - 5.3) LVPWd: 1.3 cm (0.6 - 1.1) IVSs: 1.2 cm LVIDs: 5.7 cm LVPWs: 1.8 cm LA Diam: 3.8 cm (2.7 - 3.8) LAESV Index (A-L): 33.61 ml/m Ao Diam: 3.3 cm (2.0 - 3.7) AV Cusp: 2.3 cm (1.5 - 2.6) MV EXCURSION: 18.351 mm (> 18.000) MV EF SLOPE: 222 mm/s (70 - 150) EPSS: 1.7 cm RAP: 15.00 mmHg RVSP: 53.88 mmHg FINDINGS -------- Paced rhythm. AICD This was a technically difficult study with suboptimal views. The left ventricle is mildly dilated. There is mild concentric left ventricular hypertrophy. Over all left ventricular systolic function is severely impaired with, an EF < 20%. The right ventricle is moderately enlarged. LA is midly dilated 29-33ml/m2. The right atrium is normal in size. 5.0mg of Lumason was utilized for enhancement of images Interatrial and interventricular septum intact. The aortic valve is trileaflet and appears structurally normal. Mild mitral regurgitation is present. Mild tricuspid regurgitation present. There is moderate pulmonary hypertension. The right ventric ular systolic pressure, as measured by Doppler, is 53.88mmHg. Trace/mild (physiologic) pulmonic regurgitation. The aortic root size is normal. The inferior vena cava is dilated with no significant inspiratory collapse which is consistent estima galilea right atrial pressure of >15 mmHg. There is no pericardial effusion. CONCLUSIONS -------- 1. Paced rhythm. 2. AICD 3. This was a technically difficult study with suboptimal views. 4. The left ventricle is mildly dilated. 5. There is mild concentric left ventricular hypertrophy. 6. Overall left ventricular systolic function is severely impaired with, an EF < 20%. 7. The right ventricle is moderately enlarged. 8. LA is midly dilated 29-33ml/m2. 9. The right atrium is normal in size. 10. 5.0mg of Lumason was utilized for enhancement of images 11. Interatrial and interventricular septum intact. 12. The aortic valve is trileaflet and appears structurally normal. 13. Mild mitral regurgitation is present. 14. Mild tricuspid regurgitation present. 15. There is moderate pulmonary hypertension. 16. The right ventricular systolic pressure, as measured by Doppler, is 53.88mmHg. 17. Trace/mild (physiologic) pulmonic regurgitation. 18. The aortic root size is normal. 19. The inferior vena cava is dilated with no significant inspiratory collapse which is consistent es timated right atrial pressure of >15 mmHg. 20. There is no pericardial effusion. PIT FURNACE OPERATOR: Kasey Blum RDCS
[2019-09-11] MEDS ORDERED: HEPARIN SODIUM 1,000 UN/ML (10ML VL) ONE (10:46)
[2019-09-11] MEDS ORDERED: IV FLUID CONTINUATION 1,000 ML IV ONE (10:47)
[2019-09-11] MEDS ORDERED: FLUMAZENIL 0.1 MG/ML 5 ML VIAL IVP ONE ×2 (11:02→11:20)
[2019-09-11] MEDS ORDERED: MIDAZOLAM 2 MG/2 ML VIAL IVP ONE (11:15)
[2019-09-11] MEDS ORDERED: LIDOCAINE 1% INJ 10MG/ML (20 ML MDV) SQ ONE (11:24)
[2019-09-11] MEDS ORDERED: VERAPAMIL SYRINGE (5 MG/10 ML) INTRAARTER ONE (11:25)
[2019-09-11] MEDS ORDERED: BIVALIRUDIN BOLUS 250 MG/50 ML IV ONE (11:39)
[2019-09-11] MEDS ORDERED: SODIUM CHLORIDE 0.9% 1,000 ML IV ONE (11:42)
[2019-09-11] MEDS ORDERED: BIVALIRUDIN 250 MG in SODIUM CHLORIDE 0.9% 50 ML IV ONE ×2 (11:42→11:54)
[2019-09-11] MEDS ORDERED: NITROGLYCERIN 1000MCG/10ML SYRINGE INTRACORON ONE ×2 (12:01→12:20)
[2019-09-11] MEDS ORDERED: IOPAMIDOL-370 125ML BTL INJ ONE (12:10)
[2019-09-11] MEDS ORDERED: PRASUGREL 10 MG TAB ONE ×2 (12:14→12:15)
[2019-09-11] MEDS ORDERED: PRASUGREL 10 MG TAB PO ONE (12:18)
[2019-09-11] MEDS ORDERED: IOPAMIDOL-370 100ML BTL INJ ONE (12:21)
[2019-09-11 12:41] VITALS: BMI 45.0
[2019-09-11] MEDS ORDERED: ZOLPIDEM 5 MG TAB PO PRN (12:47)
[2019-09-11] MEDS ORDERED: MAG HYDROX/AL HYDROX/SIMETH 30 ML CUP PO PRN (12:47)
[2019-09-11] MEDS ORDERED: ATROPINE SULFATE 0.1 MG/ML 10ML SYRINGE IV PRN (12:47)
[2019-09-11] MEDS ORDERED: RX INFO: IV CONTRAST WAS GIVEN 1 EACH MISC MISCELLANE PRN (12:47)
[2019-09-11] MEDS ORDERED: SODIUM CHLORIDE 0.9% 1,000 ML IV SCH (13:00)
[2019-09-11 13:16] LABS: Glucose,Whole Blood 394 mg/dL (75-99)
--- NOTE | 2019-09-11 14:41 | CONS ---
CONSULTATION CHIEF COMPLAINT: Chest pain This is a 39-year-old gentleman with history of hypertension, diabetes, dyslipidemia, coronary artery disease, status post prior angioplasty, ischemic cardiomyopathy status post AICD, who comes to hospital complaining of chest pain. He describes it as a precordial chest pressure, mild to moderate intensity, associated with shortness of breath. It came on at rest, came to the hospital where he gradually became chest pain free. His first set of troponin was elevated at 2.6 and the second set of troponin came back further elevated at 2.8. His EKG shows sinus rhythm with extensive ST-T wave changes. The patient has known coronary artery disease and underwent angioplasty of the right coronary artery in 2016. He also had severe disease involving first diagonal branch and the first OM branch. His most recent echocardiogram was in September of 2018, that revealed severely impaired LV systolic function with an ejection fraction of 25%- 30% with moderate mitral and tricuspid regurgitation. Given his clinical presentation and the elevated cardiac enzymes, I made a diagnosis of acute non ST-segment elevation IA and I advised him to undergo cardiac catheterization. I reviewed his prior data. I spoke to Dr. Hernandez, his primary stamps or coins salesperson, who will perform the cardiac catheterization around noon. PAST MEDICAL HISTORY: Significant for ischemic cardiomyopathy status post AICD, hypertension, diabetes, dyslipidemia, obstructive sleep apnea, multivessel coronary artery disease, status post angioplasty of right coronary artery. MEDICATIONS: At home include losartan, Coreg 3.125 daily, Lipitor 80 daily, aspirin, insulin, Lasix, metformin, and Aldactone. ALLERGIES: The patient is allergic to PENICILLIN. FAMILY HISTORY: Negative for premature coronary artery disease. SOCIAL HISTORY: Negative for current smoking, EtOH abuse, or drug abuse. REVIEW OF SYSTEMS: HEENT: Unremarkable. CARDIAC: As described above. RESPIRATORY: As described above. GI: Negative. GENITOURINARY: Negative. ALLERGY/IMMUNOLOGY: : Negative. SKIN: Negative. MUSCULOSKELETAL: Significant for arthritis. PSYCHOSOCIAL: Negative. ENDOCRINE: Negative. DERM: Negative. CONSTITUTIONAL: Negative. ONCOLOGICAL: Negative. Rest of the system review is not relevant. PHYSICAL EXAMINATION: On exam, patient is afebrile. Heart rate is 100 beats per minute, blood pressure 110/70, respiratory rate is 18. There is no jugular venous distention. Carotid upstroke is normal. There is no bruit. Chest exam reveals good air entry bilaterally. Heart exam reveals first and second heart sounds. No gallop. No murmur. No rub. Abdomen is soft, nontender. Exam of extremities did not reveal any edema. Peripheral pulses are felt. LABS: Show a hemoglobin of 16.5, platelet count is 235, creatinine is 0.8. Blood sugars are elevated. Troponin is elevated at 2.6 and 2.8. ASSESSMENT: 1. Acute non ST-segment elevation myocardial infarction. 2. Ischemic cardiomyopathy status post AICD. 3. Chronic systolic heart failure. PLAN: Patient will undergo cardiac catheterization for further evaluation. MMODL / IJN: [id number] /
[2019-09-11 16:15] LABS: Glucose,Whole Blood 408 mg/dL (75-99)
--- NOTE | 2019-09-11 17:01 | HP ---
HISTORY AND PHYSICAL CHIEF COMPLAINT: Shortness of breath, abdominal discomfort. HISTORY OF PRESENT ILLNESS: This is another admission for this 39-year-old obese white male with a longstanding history of severe cardiovascular disease including infarctions, cardiomyopathy, congestive heart failure, along with uncontrolled diabetes. He is very noncompliant. He does not come to the office. He came to the emergency room with abdominal distention and discomfort as well as shortness of breath. His troponin was elevated and his EKG did not demonstrate ST-segment elevation. He was admitted as a probable NSTEMI with congestive heart failure, cardiomyopathy and uncontrolled diabetes. In the emergency room, his blood sugar was 430. BNP was 848. Renal function was adequate. REVIEW OF SYSTEMS: He denies any syncope, neurologic deficits, change in vision or hearing, cough, hemoptysis, nausea, vomiting, hematemesis, melena, hematochezia, jaundice, hepatitis, cirrhosis, renal failure, hematuria, dysuria, frequency, nocturia, incontinence, etc. Past medical history, family history and personal and social histories are unremarkable. ALLERGIES: To PENICILLIN. MEDICATIONS: That he has been on home include: Aspirin 81 mg a day, losartan 25 once a day, metformin 1 g once a day, Basaglar 120 units. When last seen, he was discharged on Lasix, atorvastatin, carvedilol, spironolactone, and Vascepa. PHYSICAL EXAMINATION: Blood pressure 131/97 with a pulse of 110, respirations 20, and temperature 97.7. In general, he appeared to be obese and in no acute distress. Skin color is normal, skin is warm, dry. Lymph nodes not enlarged. Head, ears, eyes, nose, mouth, and throat were normal. Neck veins are not distended. Carotids normal. Chest demonstrated scattered rales and breath sounds are poor. Cardiac exam demonstrates sinus rhythm and no murmur or extra sound heard. Abdomen is protuberant, soft, nontender without visceromegaly or masses. Bowel sounds are present. Extremities normal, neurologically, he is intact. He is admitted to the hospital with diagnoses. 1. Probable NSTEMI. 2. Atherosclerotic cardiomyopathy. 3. Combined systolic and diastolic congestive heart failure. 4. Uncontrolled insulin-dependent diabetes mellitus. 5. Obesity. PLAN: 1. Bed rest. 2. IV fluids. 3. Serial EKGs and enzymes. 4. Cardiology consult. MMODL / IJN: [id number] /
--- NOTE | 2019-09-11 17:23 | CC ---
CARDIAC CATHETERIZATION REPORT DATE OF SERVICE: 09/11/2019 PERFORMING PHYSICIAN: Damion Hernandez M.D. PROCEDURES PERFORMED: 1. Selective right and left coronary angiogram. 2. Left heart catheterization. 3. Successful stenting of the PLV branch of the right coronary artery using a 2.0 x 15 mm Lucas drug-eluting stent with excellent angiographic results and reduction of stenosis from 99% to 0%. 4. Successful stenting of the mid right coronary artery using a 2.5 x 12 mm Xience drug-eluting stent with excellent angiographic results as well. INDICATION: This is a 39-year-old gentleman with coronary artery disease and prior coronary stenting of the RCA and LCX as well as severe ischemic cardiomyopathy, status post AICD, as well as hypertension and dyslipidemia. He presented to the hospital with chest discomfort and ruled in for acute [id number]-[id number] FL. He was seen by Dr. Lowery, who recommended proceeding with coronary angiogram. APPROACH: Right radial artery. COMPLICATIONS: None. LEVEL OF SEDATION: Moderate, with sedation length of 61 minutes. PROCEDURE DESCRIPTION: After obtaining informed consent, the patient was brought to the cardiac refuse laborer. The right radial artery was cannulated using micropuncture technique. The micropuncture wire passed easily. Then I placed a 6-Latvian sheath at the right radial artery. At that point I gave the patient 2 mg of verapamil IA. Selective right and left coronary angiogram was performed using JR4 and JL3.5 catheters. Left heart catheterization was performed using the JR4 catheter, which crossed the aortic valve. Then I did pull back across the valve. After that I did intervene on the right coronary artery. Please see separate paragraph for that. SELECTIVE CORONARY ANGIOGRAM: 1. Right coronary artery is a medium- to large-caliber vessel and it is a dominant vessel. The proximal RCA appeared to be angiographically normal. The mid RCA has intermediate disease only and bifurcates into PDA and PLV branches. The PDA branch appeared to have mild disease in its ostium and the PLV branch appeared to be subtotally occluded. 2. The left main is angiographically normal. It bifurcates into LCX and LAD. 3. The LCX is a moderate-caliber vessel which seems to be chronically occluded and fills by collateral. It seems to be ipsilateral from the left coronary system. 4. The LAD. The proximal LAD appeared to have mild disease only. The mid LAD appeared to have mild disease as well and gives rise to a large diagonal branch which has a critical lesion that seems to be in the range of 90% to 95%. The LAD distally appeared to have a very critical lesion, but this is by the apical area. 5. HEMODYNAMICS: The LVEDP was about 10 to 12 mmHg without significant gradient across the aortic valve. PERCUTANEOUS CORONARY INTERVENTION OF THE RIGHT CORONARY ARTERY: Anticoagulation was initiated using Angiomax. Subsequently I did engage the right coronary artery using a JR4 guide. I did wire the PLV branch of the right coronary artery using a long Whisper J with the backup support of a 2.0 x 12 mm [id number]-cpex balloon. I attempted doing angioplasty of the PLV branch of the right coronary artery using the 2.0 x 12 [id number] and was unsuccessful because the balloon would not cross the mid RCA. At that point I suspected that I was behind the stress of the prior stent in the mid RCA, and because of that I decided to wire the RCA using a britni wire. I was able to wire the PLV branch of the RCA using a britni wire, and that was a run- through wire. I attempted to advance at this point a 2.5 x 12 mm RX balloon. This was also unsuccessful over the Whisper wire but was successful over the run-through wire. I did multiple PTCA ballooning of the PLV branch of the RCA, then finally I deployed a 2.0 x 15 mm [place] drug-eluting stent, where the stent was positioned under fluoroscopic guidance and deployed under 16 atmospheres for 20 seconds. The final angiogram showed excellent angiographic results in the PLV branch of the right coronary artery, but there was haziness in the mid RCA as well as the PDA branch of the right coronary artery; there seemed to be a thrombus there. I did pull my run-through wire from the PLV branch and I directed my wire into the PDA branch of the right coronary artery. At that point, I did pass a 2.5 x 12 mm balloon multiple times back and forth from the mid RCA to the PDA. I did also multiple balloon inflations of the mid RCA trying to smash that clot. The following angiogram showed good angiographic results in the PDA branch, but there was some haziness in the mid RCA, which I decided to cover with a stent. I deployed a 2.5 x 12 mm Xience KIERA where the stent was positioned under fluoroscopic guidance and deployed under its nominal pressure. The following angiogram showed good angiographic results by the end and without any complication. CONCLUSION: 1. Critical disease involving the PLV branch of the right coronary artery. I did perform successful stenting of the PLV branch as well as mid RCA. 2. 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 3. Critical disease involving a large diagonal branch of the left anterior descending artery. POST-PROCEDURE MANAGEMENT: 1. Dual anti-platelet therapy. 2. Risk factor modifications. 3. PCI of the diagonal branch to be performed in the next few days or next few weeks either as an inpatient or outpatient. MMODL / IJN: [id number] /
[2019-09-11] MEDS: INSULIN DETEMIR (LEVEMIR) 100 UNIT/ML SYR SQ SCH (17:40)
[2019-09-11 20:21] LABS: Glucose,Whole Blood 439 mg/dL (75-99)
[2019-09-11] MEDS ORDERED: INSULIN DETEMIR (LEVEMIR) 100 UNIT/ML SYR SQ SCH (21:00)
[2019-09-12 06:00] LABS: Glucose,Whole Blood 101 mg/dL (75-99)
[2019-09-12] MEDS: INSULIN ASPART (NovoLOG) 100 UNIT/ML VIAL SQ SCH ×4 (06:06→20:21)
[2019-09-12 07:26] LABS: Basophils # (A) 0.1 k/uL (0-0.2); Basophils % (A) 1 %; Eosinophils # (A) 0.2 k/uL (0-0.7); Eosinophils % (A) 2 %; HCT 48.9 % (39.0-53.0); HGB 16.1 gm/dL (13.0-17.5); Hypochromasia Slight; Lymphocytes # (A) 2.7 k/uL (1.0-4.8); Lymphocytes % (A) 26 %; MCH 28.6 pg (25.0-35.0); MCHC 32.8 g/dL (31.0-37.0); MCV 87.1 fL (80.0-100.0); Mean Platelet Volume 8.7; Monocytes # (A) 0.6 k/uL (0-1.0); Monocytes % (A) 6 %; Neutrophils # (A) 6.7 k/uL (1.3-7.7); Neutrophils % (A) 63 %; Platelet Count 268 k/uL (150-450); RBC 5.62 m/uL (4.30-5.90); RDW 14.8 % (11.5-15.5); WBC 10.6 k/uL (3.8-10.6)
[2019-09-12 07:39] LABS: African American GFR (CKD) >90 (>60 ml/min/1.73 sqM); Non-African American GFR(CKD) >90 (>60 ml/min/1.73 sqM)
[2019-09-12] MEDS: PRASUGREL 10 MG TAB PO SCH (08:10)
[2019-09-12] MEDS: ASPIRIN 81 MG PO SCH (08:10)
[2019-09-12] MEDS: CARVEDILOL 3.125 MG TAB PO SCH (08:10)
[2019-09-12] MEDS: FUROSEMIDE 40 MG TAB PO SCH (08:10)
[2019-09-12] MEDS: SPIRONOLACTONE 25 MG TAB PO SCH (08:10)
[2019-09-12 11:56] LABS: Glucose,Whole Blood 233 mg/dL (75-99)
--- NOTE | 2019-09-12 12:59 | P.PN ---
Subjective Shaun Jamar, 39-year-old male patient Seen by Dr. Orlando in Dr. Jang He underwent coronary angiography with successful stenting of the PLV branch of the right coronary artery as well as the mid right coronary artery with drug- eluting stents He complains of epigastric discomfort that radiates up into the chest. He describes it as a pressure sensation when he walks around the room and feels exactly what he came in with He has residual critical stenosis in the diagonal vessel which is a large branch He is afebrile 98F pulse rate in the 90s breathing nonlabored Blood pressure 102/73 mmHg No JVD no lower extremity edema heart sounds are tachycardic but no murmurs Breasts are clear no rhonchi no crackles I asked the nurse to ambulate him around in the room Patient has severe LV dysfunction ejection fraction less than 20% and an ICD Labs reviewed hemoglobin 16.1 normal white count and platelet count 260,000 Sodium 132 potassium 4.4 troponin 3.0 Hemoglobin A1c 12 Coronavirus PCR = nondetectable Impression Multivessel coronary artery disease status post stenting He has residual critical stenosis in the diagonal vessel which is a large branch of the LAD He is tachycardic His blood pressure is low normal Suggest switching from carvedilol to metoprolol succinate 50 g by mouth daily starting tomorrow morning line he does have a history of noncompliance to medications I would keep him in the hospital and proceed with Jack stenting on Saturday with Dr. Orlando His hemoglobin A1c is uncontrolled, diabetes management per primary team Objective - Vital Signs Vital signs: Vital Signs Temp 98 F 09/12/19 08:10 Pulse 97 09/12/19 08:10 Resp 16 09/12/19 08:10 BP 102/73 09/12/19 08:10 Pulse Ox 98 09/12/19 08:10 Intake & Output 09/11/19 09/12/19 09/12/19 18:59 06:59 18:59 Intake Total 1032 844 Balance 1032 844 Weight 150.7 kg 150.7 kg 150.7 kg Intake: IV 632 Intake, IV Titration 400 Amount Sodium Chloride 0.9% 1, 400 000 ml @ 75 mls/hr IV . [id number] [facility] Rx#:[id number] Oral 844 Other: Voiding Method Toilet # Voids 1 - Labs CBC & Chem 7: 09/12/19 07:12 09/12/19 07:12 Labs: Abnormal Lab Results - Last 24 Hours (Table) 09/11/19 09/11/19 09/11/19 Range/Units 08:17 13:02 13:14 POC Glucose (mg/dL) 394 H (75-99) mg/dL Hemoglobin A1c 12.0 H (4.0-6.0) % Troponin I 3.000 H* (0.000-0.034) ng/mL 09/11/19 09/11/19 09/12/19 Range/Units 16:13 20:21 05:59 POC Glucose (mg/dL) 408 H 439 H 101 H (75-99) mg/dL Hemoglobin A1c (4.0-6.0) % Troponin I (0.000-0.034) ng/mL 09/12/19 Range/Units 11:55 POC Glucose (mg/dL) 233 H (75-99) mg/dL Hemoglobin A1c (4.0-6.0) % Troponin I (0.000-0.034) ng/mL
--- NOTE | 2019-09-12 13:16 | PN ---
PROGRESS NOTE CHIEF COMPLAINT: Shortness of breath and chest pain. HISTORY OF PRESENT ILLNESS: This gentleman is doing fairly well. He did have a cardiac cath and had 2 stents placed in the right coronary artery. He is having no current chest pain, shortness of breath, etc. Laboratory sultana, his blood sugars are fluctuating as high as 449 and down to 101. His ejection fraction is less than 20%. PHYSICAL EXAM: CHEST: Clear. Cardiac exam is normal. Abdomen is protuberant, soft. IMPRESSION: 1. Acute myocardial infarction. 2. Coronary artery disease. 3. Congestive heart failure. 4. Poorly-controlled, insulin-dependent diabetes mellitus. PLAN: Progress activity and discharge when cleared by Cardiology. MMODL / IJN: [id number] /
[2019-09-12 16:56] LABS: Glucose,Whole Blood 210 mg/dL (75-99)
[2019-09-12 20:11] LABS: Glucose,Whole Blood 257 mg/dL (75-99)
[2019-09-12] MEDS: ACETAMINOPHEN TAB 325 MG TAB PO PRN (20:20)
[2019-09-12] MEDS: ATORVASTATIN 80 MG TAB PO SCH (20:20)
[2019-09-12] MEDS: INSULIN DETEMIR (LEVEMIR) 100 UNIT/ML SYR SQ SCH (20:21)
[2019-09-12 20:46] LABS: Glucose,Whole Blood 257 mg/dL (75-99)
[2019-09-12] MEDS: MORPHINE SULFATE 4 MG/ML SYRINGE IV PRN (21:52)
[2019-09-13] MEDS: ACETAMINOPHEN TAB 325 MG TAB PO PRN (05:42)
[2019-09-13 05:58] LABS: Basophils # (A) 0.1 k/uL (0-0.2); Basophils % (A) 1 %; Eosinophils # (A) 0.4 k/uL (0-0.7); Eosinophils % (A) 4 %; HCT 48.8 % (39.0-53.0); HGB 15.8 gm/dL (13.0-17.5); Hypochromasia Slight; Lymphocytes # (A) 3.7 k/uL (1.0-4.8); Lymphocytes % (A) 34 %; MCH 28.3 pg (25.0-35.0); MCHC 32.4 g/dL (31.0-37.0); MCV 87.5 fL (80.0-100.0); Mean Platelet Volume 8.7; Monocytes # (A) 0.8 k/uL (0-1.0); Monocytes % (A) 7 %; Neutrophils # (A) 5.5 k/uL (1.3-7.7); Neutrophils % (A) 51 %; Platelet Count 289 k/uL (150-450); Poikilocytosis Slight; RBC 5.58 m/uL (4.30-5.90); RDW 14.7 % (11.5-15.5); WBC 10.7 k/uL (3.8-10.6)
[2019-09-13 06:18] LABS: Glucose,Whole Blood 115 mg/dL (75-99)
[2019-09-13] MEDS: INSULIN ASPART (NovoLOG) 100 UNIT/ML VIAL SQ SCH ×4 (06:19→20:01)
[2019-09-13] MEDS: ASPIRIN 81 MG PO SCH (07:54)
[2019-09-13] MEDS: SPIRONOLACTONE 25 MG TAB PO SCH (07:54)
[2019-09-13] MEDS: PRASUGREL 10 MG TAB PO SCH (07:54)
[2019-09-13] MEDS: FUROSEMIDE 40 MG TAB PO SCH (07:54)
[2019-09-13] MEDS ORDERED: METOPROLOL SUCCINATE (ER) 50 MG TAB.ER.24H PO SCH (09:00)
[2019-09-13] MEDS ORDERED: METOPROLOL SUCCINATE (ER) 25 MG TAB.ER.24H PO STA (11:42)
--- NOTE | 2019-09-13 12:01 | P.PN ---
Subjective Patient awaiting stenting of the diagonal vessel His heart rates are in the high 90s Blood pressure is reasonably normal Hemoglobin is normal On examination he is afebrile 90F, pulse rate 96 207 beats a minute normal respirations Blood pressure ranges from 140/78 mmHg to 132/84 mmHg Complains of abdominal discomfort No chest discomfort no dizziness lightheadedness no shortness of breath On examination heart sounds are normal breath sounds are clear no rhonchi no crackles No lower extremity edema no JVD Impression Coronary artery disease non-Q wave myocardial infarction Status post stenting for multivessel coronary artery disease He is critical stenosis of the diagonal vessel and is awaiting Jack stenting on Saturday. Plan Increase metoprolol to 75 mg by mouth daily Objective - Vital Signs Vital signs: Vital Signs Temp 98 F 09/13/19 08:00 Pulse 102 H 09/13/19 08:00 Resp 18 09/13/19 08:00 BP 104/78 09/13/19 08:00 Pulse Ox 98 09/13/19 08:00 Intake & Output 09/12/19 09/13/19 09/13/19 18:59 06:59 18:59 Intake Total 2182 Balance 2182 Weight 150.7 kg 152.1 kg Intake: Intake, IV Titration 450 Amount Sodium Chloride 0.9% 1, 450 000 ml @ 75 mls/hr IV . [id number] [facility] Rx#:[id number] Oral 1732 Other: # Voids 2 # Bowel Movements 0 - Labs CBC & Chem 7: 09/13/19 05:15 09/12/19 07:12 Labs: Abnormal Lab Results - Last 24 Hours (Table) 09/12/19 09/12/19 09/12/19 Range/Units 11:55 16:55 20:10 WBC (3.8-10.6) k/uL POC Glucose (mg/dL) 233 H 210 H 257 H (75-99) mg/dL 09/12/19 09/13/19 09/13/19 Range/Units 20:44 05:15 06:17 WBC 10.7 H (3.8-10.6) k/uL POC Glucose (mg/dL) 257 H 115 H (75-99) mg/dL
[2019-09-13 12:34] LABS: Glucose,Whole Blood 199 mg/dL (75-99)
[2019-09-13 17:09] LABS: Glucose,Whole Blood 274 mg/dL (75-99)
--- NOTE | 2019-09-13 18:14 | PN ---
PROGRESS NOTE CHIEF COMPLAINT: Chest pain and coronary artery disease. HISTORY OF PRESENT ILLNESS: This gentleman was probably going to go home today but he was walked in the [place] and had reproduction of his chest pain. Cardiology has canceled his discharge and he is going for another cardiac cath on Saturday. PHYSICAL EXAMINATION: Chest is clear. Cardiac exam is normal. Abdomen is soft, nontender. IMPRESSION: 1. Coronary artery disease. 2. Recent non ST segment elevation myocardial infarction. 3. Unstable angina pectoris. PLAN: Repeat cardiac cath on Saturday. MMODL / IJN: [id number] /
[2019-09-13 20:00] LABS: Glucose,Whole Blood 247 mg/dL (75-99)
[2019-09-13] MEDS: ATORVASTATIN 80 MG TAB PO SCH (20:01)
[2019-09-13] MEDS: INSULIN DETEMIR (LEVEMIR) 100 UNIT/ML SYR SQ SCH (20:01)
[2019-09-13] MEDS: MORPHINE SULFATE 4 MG/ML SYRINGE IV PRN (22:58)
[2019-09-14 06:17] LABS: Glucose,Whole Blood 181 mg/dL (75-99)
[2019-09-14] MEDS: INSULIN ASPART (NovoLOG) 100 UNIT/ML VIAL SQ SCH ×4 (06:23→20:55)
[2019-09-14 07:06] LABS: Basophils # (A) 0.1 k/uL (0-0.2); Basophils % (A) 2 %; Eosinophils # (A) 0.3 k/uL (0-0.7); Eosinophils % (A) 3 %; HCT 44.9 % (39.0-53.0); HGB 14.8 gm/dL (13.0-17.5); Hypochromasia Slight; Lymphocytes # (A) 2.9 k/uL (1.0-4.8); Lymphocytes % (A) 33 %; MCH 28.9 pg (25.0-35.0); MCHC 32.9 g/dL (31.0-37.0); MCV 87.9 fL (80.0-100.0); Mean Platelet Volume 8.8; Monocytes # (A) 0.7 k/uL (0-1.0); Monocytes % (A) 8 %; Neutrophils # (A) 4.5 k/uL (1.3-7.7); Neutrophils % (A) 52 %; Platelet Count 241 k/uL (150-450); RDW 14.4 % (11.5-15.5); WBC 8.7 k/uL (3.8-10.6)
[2019-09-14] MEDS: METOPROLOL SUCCINATE (ER) 25 MG TAB.ER.24H PO SCH (08:56)
[2019-09-14] MEDS: SPIRONOLACTONE 25 MG TAB PO SCH (08:56)
[2019-09-14] MEDS: ASPIRIN 81 MG PO SCH (08:56)
[2019-09-14] MEDS: PRASUGREL 10 MG TAB PO SCH (08:56)
[2019-09-14] MEDS: FUROSEMIDE 40 MG TAB PO SCH (08:56)
[2019-09-14 12:10] LABS: Glucose,Whole Blood 191 mg/dL (75-99)
--- NOTE | 2019-09-14 12:15 | P.PN ---
Subjective Shaun Jamar Patient with coronary artery disease, critical stenosis of the diagonal vessel awaiting coronary stenting History was still complaining of symptoms and he is kept in the hospital for inpatient percutaneous treatment Blood pressure excellent 129/77 mmHg Afebrile 97.9F pulse rate in the 80s and 90s respirations 16-18 Labs reviewed hemoglobin 14.8 Today he is doing well sitting comfortably watching TV no abdominal pain no shortness of breath Heart sounds are normal Heart rate 7 the 80s to 90s No lower extremity edema lungs are clear Impression Coronary artery disease status post coronary stenting last week He still has residual critical stenosis of the diagonal vessel His complaint of shortness of breath and discomfort with ambulation room and discharge was withheld Plan Continue dual antiplatelet therapy and cardiac medications procedure coronary stenting in the next 1-2 days Objective - Vital Signs Vital signs: Vital Signs Temp 97.6 F 09/14/19 08:00 Pulse 97 09/14/19 08:00 Resp 18 09/14/19 05:19 BP 129/77 09/14/19 08:00 Pulse Ox 97 09/14/19 08:00 Intake & Output 09/13/19 09/14/19 09/14/19 18:59 06:59 18:59 Intake Total 784 444 Output Total 500 Balance 784 -56 Weight 153.1 kg Intake: Oral 784 444 Output: Urine 500 Other: # Voids 4 # Bowel Movements 0 - Labs CBC & Chem 7: 09/14/19 05:43 09/12/19 07:12 Labs: Abnormal Lab Results - Last 24 Hours (Table) 09/13/19 09/13/19 09/13/19 Range/Units 12:33 17:07 19:59 POC Glucose (mg/dL) 199 H 274 H 247 H (75-99) mg/dL 09/14/19 Range/Units 06:13 POC Glucose (mg/dL) 181 H (75-99) mg/dL
--- NOTE | 2019-09-14 15:24 | PN ---
PROGRESS NOTE CHIEF COMPLAINT: Coronary artery disease. HISTORY OF PRESENT ILLNESS: This gentleman is doing well and awaits his second procedure tomorrow. REVIEW OF SYSTEMS: He is not having any chest pain, shortness of breath, or palpitations. PHYSICAL EXAMINATION: Chest is clear. Cardiac exam is normal. Abdomen is protuberant and soft. IMPRESSION: Coronary artery disease. PLAN: Repeat catheterization tomorrow with second stent. MMODL / IJN: [id number] /
[2019-09-14 17:20] LABS: Glucose,Whole Blood 219 mg/dL (75-99)
[2019-09-14] MEDS ORDERED: MAGNESIUM HYDROXIDE 2,400 MG/10 ML CUP PO PRN (17:52)
[2019-09-14 20:13] LABS: Glucose,Whole Blood 285 mg/dL (75-99)
[2019-09-14] MEDS: ATORVASTATIN 80 MG TAB PO SCH (20:54)
[2019-09-14] MEDS: INSULIN DETEMIR (LEVEMIR) 100 UNIT/ML SYR SQ SCH (20:55)
[2019-09-14] MEDS: MORPHINE SULFATE 4 MG/ML SYRINGE IV PRN (20:56)
[2019-09-15 06:12] LABS: Glucose,Whole Blood 196 mg/dL (75-99)
[2019-09-15] MEDS: INSULIN ASPART (NovoLOG) 100 UNIT/ML VIAL SQ SCH ×4 (06:12→21:11)
[2019-09-15] MEDS ORDERED: ASPIRIN 325 MG TAB PO STA (08:17)
[2019-09-15] MEDS ORDERED: SODIUM CHLORIDE 0.9% 1,000 ML in EMPTY BAG 1 BAG IV ONE (08:17)
[2019-09-15] MEDS ORDERED: ATORVASTATIN 80 MG TAB PO STA (08:17)
[2019-09-15] MEDS ORDERED: ALPRAZolam 0.25 MG TAB PO PRN (08:17)
[2019-09-15] MEDS ORDERED: NITROGLYCERIN SL TABS 0.4 MG TAB SUBLINGUAL PRN ×2 (08:17→15:24)
[2019-09-15] MEDS ORDERED: ALPRAZolam 0.5 MG TAB PO PRN (08:17)
[2019-09-15] MEDS: FUROSEMIDE 40 MG TAB PO SCH (09:11)
[2019-09-15] MEDS: METOPROLOL SUCCINATE (ER) 25 MG TAB.ER.24H PO SCH (09:11)
[2019-09-15] MEDS: PRASUGREL 10 MG TAB PO SCH (09:11)
[2019-09-15] MEDS: SPIRONOLACTONE 25 MG TAB PO SCH (09:11)
[2019-09-15] MEDS: ASPIRIN 81 MG PO SCH (09:11)
[2019-09-15 11:20] LABS: Glucose,Whole Blood 138 mg/dL (75-99)
[2019-09-15] MEDS ORDERED: LIDOCAINE 1% INJ 10MG/ML (20 ML MDV) ONE (14:44)
[2019-09-15] MEDS ORDERED: VERAPAMIL 2.5 MG/ML 2 ML AMP ONE (14:44)
[2019-09-15] MEDS ORDERED: MIDAZOLAM 2 MG/2 ML VIAL IVP ONE ×2 (14:57→15:03)
[2019-09-15] MEDS ORDERED: LIDOCAINE 1% INJ 10MG/ML (20 ML MDV) SQ ONE (15:05)
[2019-09-15] MEDS ORDERED: VERAPAMIL SYRINGE (5 MG/10 ML) INTRAARTER ONE (15:07)
[2019-09-15] MEDS ORDERED: BIVALIRUDIN BOLUS 250 MG/50 ML IV ONE (15:11)
[2019-09-15] MEDS ORDERED: IV FLUID CONTINUATION 300 ML IV ONE (15:12)
[2019-09-15] MEDS ORDERED: BIVALIRUDIN 250 MG in SODIUM CHLORIDE 0.9% 50 ML IV ONE (15:12)
[2019-09-15] MEDS ORDERED: IOPAMIDOL-370 125ML BTL INJ ONE (15:20)
[2019-09-15] MEDS ORDERED: PRASUGREL 10 MG TAB ONE (15:22)
[2019-09-15] MEDS ORDERED: ATROPINE SULFATE 0.1 MG/ML 10ML SYRINGE IV PRN (15:24)
[2019-09-15] MEDS ORDERED: RX INFO: IV CONTRAST WAS GIVEN 1 EACH MISC MISCELLANE PRN (15:24)
[2019-09-15] MEDS ORDERED: ZOLPIDEM 5 MG TAB PO PRN (15:24)
[2019-09-15] MEDS ORDERED: MAG HYDROX/AL HYDROX/SIMETH 30 ML CUP PO PRN (15:24)
[2019-09-15] MEDS ORDERED: SODIUM CHLORIDE 0.9% 1,000 ML IV SCH (15:30)
[2019-09-15 16:19] LABS: Glucose,Whole Blood 179 mg/dL (75-99)
[2019-09-15 20:37] LABS: Glucose,Whole Blood 177 mg/dL (75-99)
[2019-09-15] MEDS: INSULIN DETEMIR (LEVEMIR) 100 UNIT/ML SYR SQ SCH (21:10)
[2019-09-15] MEDS: ATORVASTATIN 80 MG TAB PO SCH (21:10)
[2019-09-15] MEDS: MORPHINE SULFATE 4 MG/ML SYRINGE IV PRN (21:11)
--- NOTE | 2019-09-15 21:44 | PN ---
PROGRESS NOTE DATE OF SERVICE: 09/15/2019 CHIEF COMPLAINT: Myocardial infarction and coronary artery disease. HISTORY OF PRESENT ILLNESS: This gentleman is going down for his second stenting today. He has been doing well. He has had no chest pain. PHYSICAL EXAMINATION: Color is good. Chest is clear. Cardiac exam is normal. Abdomen is protuberant. IMPRESSION: 1. Coronary artery disease. 2. Uncontrolled diabetes. 3. Morbid obesity. PLAN: Second stenting today and possibly home tomorrow. MMODL / IJN: [id number] /
--- NOTE | 2019-09-15 22:43 | PTCA ---
PERCUTANEOUSTRANS CORORONARY ANGIOGRAPHY PERFORMING PHYSICIAN: Damion Hernandez M.D. PROCEDURE PERFORMED: Successful stenting of the first diagonal branch of the left anterior descending coronary artery using a 2.0 x 15 mm [place] drug-eluting stent with excellent angiographic results and reduction of stenosis from 90% to 0%. INDICATION: This is a 39-year-old gentleman with coronary artery disease as well as ischemic cardiomyopathy who was admitted to the hospital last week with acute [id number] myocardial infarction and underwent heart catheterization and stenting of the RCA. He was found to have severe disease involving the first diagonal branch of the LAD. He was brought today to undergo an intervention on the diagonal. APPROACH: Right radial artery. COMPLICATIONS: None. LEVEL OF SEDATION: Moderate, with sedation length of 17 minutes. PROCEDURE DESCRIPTION: After obtaining informed consent, the patient was brought to the cardiac laboratory coordinator. The right radial artery was cannulated using micropuncture technique. The micropuncture wire passed easily. Then I placed a 6-Cymro sheath in the right radial artery. After that I gave the patient 2 mg of Verapamil IA was initiated using Angiomax. Subsequently I did engage the left main using using JL3.5 guide. I did wire the diagonal using a Whisper wire. Balloon angioplasty was achieved using 2.0 x 12 mm balloon before I deployed a 2.0 x 15 mm Lucas drug-eluting stent where the stent was positioned under fluoroscopic guidance and deployed under 16 atmospheres for 20 seconds with the following angiogram showing excellent angiographic results and the procedure was completed without any complication. POST-PROCEDURE MANAGEMENT: 1. Dual anti-platelet therapy. 2. Risk factor modifications. 3. Follow up with the patient. MMODL / IJN: [id number] /
[2019-09-16 04:40] VITALS: RESP 17
[2019-09-16 05:53] LABS: Glucose,Whole Blood 189 mg/dL (75-99)
[2019-09-16] MEDS: INSULIN ASPART (NovoLOG) 100 UNIT/ML VIAL SQ SCH ×2 (06:38→12:54)
[2019-09-16 08:00] LABS: African American GFR (CKD) >90 (>60 ml/min/1.73 sqM); Non-African American GFR(CKD) >90 (>60 ml/min/1.73 sqM)
[2019-09-16] MEDS: ASPIRIN 81 MG PO SCH (10:29)
[2019-09-16] MEDS: FUROSEMIDE 40 MG TAB PO SCH (10:29)
[2019-09-16] MEDS: METOPROLOL SUCCINATE (ER) 25 MG TAB.ER.24H PO SCH (10:29)
[2019-09-16] MEDS: SPIRONOLACTONE 25 MG TAB PO SCH (10:29)
[2019-09-16] MEDS: MORPHINE SULFATE 4 MG/ML SYRINGE IV PRN (10:30)
[2019-09-16] MEDS: PRASUGREL 10 MG TAB PO SCH (10:30)
[2019-09-16 11:07] VITALS: TEMP 97.8
[2019-09-16 11:07] LABS: Glucose,Whole Blood 281 mg/dL (75-99)
[2019-09-16 14:28] VITALS: BP 112/72; PULSE 88
--- NOTE | 2019-09-16 16:41 | P.PN ---
Subjective Progress Note Date: 09/16/19 This is a 39-year-old gentleman who underwent coronary angiography with successful stenting of the PLV branch of the right coronary artery as well as the mid RCA, he presented to the hospital on this occasion with symptoms of chest discomfort, he was known to have a residual critical stenosis in the diet for which he underwent angioplasty and stenting yesterday. Patient was seen and examined this morning, denied any chest pain, no shortness of breath, hemodynamically stable. EKG showed normal sinus rhythm with no changes from post-PCI. Blood pressure 112/70 with a heart rate in the 80s, 99% on 4 L of oxygen. Objective - Vital Signs Vital signs: Vital Signs Temp 97.8 F 09/16/19 08:00 Pulse 88 09/16/19 12:00 Resp 17 09/16/19 04:00 BP 112/72 09/16/19 12:00 Pulse Ox 99 09/16/19 12:00 Intake & Output 09/15/19 09/16/19 09/16/19 18:59 06:59 18:59 Intake Total 565 540 398 Balance 565 540 398 Weight 155.9 kg Intake: IV 105 Intake, IV Titration 460 Amount Sodium Chloride 0.9% 1, 460 000 ml In Empty Bag 1 bag @ 1 ML/KG/HR 153.6 mls/ hr IV .[id number] [facility] Rx#: [id number] Oral 540 398 Other: Voiding Method Toilet - Exam PHYSICAL EXAMINATION: GENERAL: 39-year-old gentleman in no acute distress at the time of my examination HEENT: Head is atraumatic, normocephalic. Pupils equal, round. Sclera anicteric. Conjunctiva are clear. Mucous membranes of the mouth are moist. Neck is supple. There is no elevated jugular venous pressure. No carotid bruit is heard. HEART EXAMINATION: Heart S1, S2 normal. No murmur or gallop heard. CHEST EXAMINATION: Lungs are clear to auscultation and precussion. No chest wall tenderness is noted on palpation or with deep breathing. ABDOMEN: Soft, nontender. Bowel sounds are heard. No organomegaly noted. EXTREMITIES: 2+ peripheral pulses with no evidence of peripheral edema and no calf tenderness noted. Right radial site clean and dry, good distal pulse. NEUROLOGIC patient is awake, alert and oriented 3 . . - Labs CBC & Chem 7: 09/14/19 05:43 09/16/19 06:34 Labs: Abnormal Lab Results - Last 24 Hours (Table) 09/15/19 09/16/19 09/16/19 Range/Units 20:36 05:51 11:05 POC Glucose (mg/dL) 177 H 189 H 281 H (75-99) mg/dL Assessment and Plan Plan: Impression and plan #1 Multivessel coronary artery disease status post stenting of the PLV branch of the RCA and mid RCA #2 hyperlipidemia #3 hypertension #4 diabetes #5 status post stenting of the diagonal Plan Patient may be discharged home today from cardiology's perspective, we will make a follow-up appointment in the office with Dr. Orlando post discharge. DNP note has been reviewed, I agree with a documented findings and plan of care. Patient was seen and examined.
--- NOTE | 2019-09-17 05:30 | DS ---
DISCHARGE SUMMARY CHIEF COMPLAINT: Chest pain and shortness of breath. HISTORY OF PRESENT ILLNESS AND PHYSICAL EXAM: Details of this man's history and physical can be found in the initial workup. LABORATORY STUDIES: While he was in the hospital he had laboratory studies, details of which can be found in the laboratory section of his chart. COURSE IN HOSPITAL: After admission, he was placed on bedrest, started on intravenous fluids and was taken to the computer lab para professional. He was found to have a critically narrowed coronary artery, which was stented. There was a second lesion and it was felt safest to wait several days to do that. He was taken back for another stent after which Cardiology felt he could be released on the . He will go home and, hopefully, stay on the medication program including insulin and maintain better control of his various comorbidities. We will see him in the office in several days, if he shows up. FINAL DIAGNOSES: 1. Acute non-ST elevation myocardial infarction. 2. Coronary artery disease. 3. Atherosclerotic cardiomyopathy. 4. Congestive heart failure. 5. Uncontrolled insulin-dependent diabetes mellitus. OPERATIONS: Cardiac cath and stenting (twice). CONSULTATION: Cardiology. He is improved. MMODL / IJN: [id number] /
== END 2019-09-16 16:43 | disposition home or self-care (01) | DRG 246 ==
LOC: EC 00:24 → 3SCARD 02:54
PROVIDERS: ADMIT Family Medicine; ATTEND Family Medicine
PROC: 027135Z Dilation of Coronary Artery, Two Arteries with Two Drug-eluting Intraluminal Devices, Percutaneous Approach (ICD-10-PCS; principal; 2019-09-11 11:00)
PROC: B2111ZZ Fluoroscopy of Multiple Coronary Arteries using Low Osmolar Contrast (ICD-10-PCS; principal; 2019-09-11 11:00)
PROC: 4A023N7 Measurement of Cardiac Sampling and Pressure, Left Heart, Percutaneous Approach (ICD-10-PCS; principal; 2019-09-11 11:00)
PROC: 027034Z Dilation of Coronary Artery, One Artery with Drug-eluting Intraluminal Device, Percutaneous Approach (ICD-10-PCS; 2019-09-15)
DX: I21.4 Non-ST elevation (NSTEMI) myocardial infarction (principal); I50.43 Acute on chronic combined systolic (congestive) and diastolic (congestive) heart failure; Z68.42 Body mass index [BMI] 45.0-49.9, adult; I25.110 Atherosclerotic heart disease of native coronary artery with unstable angina pectoris; I25.5 Ischemic cardiomyopathy; I11.0 Hypertensive heart disease with heart failure; E11.42 Type 2 diabetes mellitus with diabetic polyneuropathy; E11.65 Type 2 diabetes mellitus with hyperglycemia; E66.01 Morbid (severe) obesity due to excess calories; E78.5 Hyperlipidemia, unspecified; Z11.59 Encounter for screening for other viral diseases; I08.1 Rheumatic disorders of both mitral and tricuspid valves; I25.2 Old myocardial infarction; F41.9 Anxiety disorder, unspecified; G43.909 Migraine, unspecified, not intractable, without status migrainosus; G47.33 Obstructive sleep apnea (adult) (pediatric); G89.29 Other chronic pain; M54.9 Dorsalgia, unspecified; Z79.4 Long term (current) use of insulin; Z79.82 Long term (current) use of aspirin; Z79.899 Other long term (current) drug therapy; Z95.810 Presence of automatic (implantable) cardiac defibrillator; Z95.5 Presence of coronary angioplasty implant and graft; Z87.891 Personal history of nicotine dependence; Z91.14 Patient's other noncompliance with medication regimen; Z82.49 Family history of ischemic heart disease and other diseases of the circulatory system; Z81.1 Family history of alcohol abuse and dependence; Z83.79 Family history of other diseases of the digestive system
CPT/HCPCS: 36415; 71046; 74018; 80053; 82565; 83036; 83735; 83880; 84484; 85025; 85610; 85730; 87635; 93005; 93306; 93458; 96365; 96375; 96376; 99291

== ENCOUNTER 2019-09-19 19:12 | Inpatient (IN) | payer OTHER ==
[2019-09-19] MEDS ORDERED: SODIUM CHLORIDE 0.9% 1,000 ML IV STA (19:48)
[2019-09-19] MEDS ORDERED: NITROGLYCERIN SL TABS 0.4 MG TAB SUBLINGUAL STA (19:48)
[2019-09-19] MEDS ORDERED: ASPIRIN 81 MG PO STA (19:48)
[2019-09-19] MEDS ORDERED: MORPHINE SULFATE 4 MG/ML SYRINGE IV STA (19:48)
--- NOTE | 2019-09-19 19:58 | ED ---
Chest Pain HPI - General Source: patient Mode of arrival: ambulatory Limitations: no limitations <Rosa Isela Bernal - Last Filed: 09/20/19 00:23> <Debi Higgins - Last Filed: 09/23/19 13:38> - General Chief Complaint: Chest Pain Stated Complaint: Diff Breathing Time Seen by Provider: 09/19/19 19:34 - History of Present Illness Initial Comments: Patient is a 39-year-old male presenting to the emergency Department with complaints of chest pain and shortness of breath started last night. Patient was recently discharged from this hospital 3 days ago after having a cardiac cath with stent placement. Patient states he has been doing well until last night when he started developing shortness of breath followed by chest pain that has been progressively getting worse. Patient describes chest pain as heaviness center of his chest and is currently an 8/10. He states his legs also feel very heavy. He denies any alleviating or aggravating factors. He denies any fever, chills, cough, abdominal pain, nausea, vomiting. He has no further complaints at this time. Upon arrival to the ER, pulse is 112, BP is 150/94, respirations 24, afebrile, 96% on room air. (Rosa Isela Bernal) - Related Data Home Medications Medication Instructions Recorded Confirmed Aspirin EC [Ecotrin Low Dose] 81 mg PO DAILY 10/13/18 09/19/19 Losartan [Cozaar] 25 mg PO DAILY 03/11/19 09/19/19 Insulin Glargine,Hum.rec.anlog 100 unit SQ DAILY 04/05/19 09/19/19 [Basaglar Kwikpen U-100] metFORMIN HCL 1,000 mg PO DAILY 06/14/19 09/19/19 Ibuprofen 800 mg PO QID PRN 09/11/19 09/19/19 Furosemide [Lasix] 40 mg PO BID 09/19/19 09/19/19 Previous Rx's Medication Instructions Recorded Atorvastatin [Lipitor] 80 mg PO HS #90 tab 10/16/18 Spironolactone [Aldactone] 25 mg PO DAILY #90 tab 10/16/18 Metoprolol Succinate (ER) [Toprol 75 mg PO DAILY #30 tab.er.24h 09/16/19 XL] Prasugrel [Effient] 10 mg PO DAILY #30 tab 09/16/19 INSULIN ASPART (NovoLOG) [NovoLOG 0 unit SQ ACHS vial 09/21/19 (formulary)] Allergies Allergy/AdvReac Type Severity Reaction Status Date / Time Penicillins Allergy Unknown Verified 09/19/19 21:15 Childhood Review of Systems ROS Other: All systems not noted in ROS Statement are negative. <Rosa Isela Bernal - Last Filed: 09/20/19 00:23> ROS Other: All systems not noted in ROS Statement are negative. <Debi Higgins - Last Filed: 09/23/19 13:38> ROS Statement: Those systems with pertinent positive or pertinent negative responses have been documented in the HPI. EKG Findings - EKG Comments: EKG Findings:: EKG reveals sinus tachycardia, nonspecific changes, no signs of acute ischemia. Ventricular rate 104, AZ interval 192, QTC 489. Similar to previous EKG on 09/11/2019 <Rosa Isela Bernal - Last Filed: 09/20/19 00:23> Past Medical History Past Medical History: Coronary Artery Disease (CAD), Chest Pain / Angina, Heart Failure, Diabetes Mellitus, Hyperlipidemia, Hypertension, Myocardial Infarction (ME), Sleep Apnea/CPAP/BIPAP, Syncope Additional Past Medical History / Comment(s): Cardiiomyopathy with AICD, IDDM type II, neuropathy bilateral feet, SP with Cpap use, migraines, chronic back pain. Last Myocardial Infarction Date:: 2015 History of Any Multi-Drug Resistant Organisms: None Reported Past Surgical History: AICD, Heart Catheterization, Heart Catheterization With Stent Additional Past Surgical History / Comment(s): 10/27/12 AICD, DFTs, PCI with stent Past Anesthesia/Blood Transfusion Reactions: No Reported Reaction Date of Last Stent Placement:: 02/03/16 Type of Cardiac Device: AICD Device Placement Date:: 2012 Past Psychological History: Anxiety Smoking Status: Former smoker Past Alcohol Use History: None Reported Past Drug Use History: None Reported - Past Family History Mother Family Medical History: No Reported History Additional Family Medical History / Comment(s): Mother is healthy Brother(s) Family Medical History: Myocardial Infarction (ME) Additional Family Medical History / Comment(s): Brother of a ME at the age of 35yrs. Father Family Medical History: Liver Disease Additional Family Medical History / Comment(s): Father when pt was 19 yrs old from liver disease. He was an alcoholic. <Rosa Isela Bernal - Last Filed: 09/20/19 00:23> General Exam Limitations: no limitations <Rosa Isela Bernal - Last Filed: 09/20/19 00:23> - General Exam Comments Initial Comments: GENERAL: Nontoxic appearing, appears uncomfortable, and in no acute distress. HEAD: Atraumatic, normocephalic. EYES: Pupils equal round and reactive to light, extraocular movements intact, sclera anicteric, conjunctiva are normal. ENT: TMs normal, nares patent, oropharynx clear without exudates. Moist mucous membranes. NECK: Normal range of motion, supple without lymphadenopathy or JVD. LUNGS: Breath sounds clear to auscultation bilaterally and equal. No wheezes rales or rhonchi. HEART: Tachycardic rate and rhythm without murmurs, rubs or gallops. ABDOMEN: Soft, nontender, normoactive bowel sounds. No guarding, no rebound. No masses appreciated. : Deferred EXTREMITIES: Normal range of motion, no pitting or edema. No clubbing or cyanosis. NEUROLOGICAL: Cranial nerves II through XII grossly intact. Normal speech, normal gait. PSYCH: Normal mood, normal affect. SKIN: Warm, Dry, normal turgor, no rashes or lesions noted. (Rosa Isela Bernal) Course Vital Signs 09/19/19 09/19/19 09/19/19 19:24 19:44 20:15 Temperature 98.4 F Pulse Rate 112 H 95 Pulse Rate [ 101 H Correspondence Coordinator ] Respiratory 24 18 Rate Blood Pressure 150/94 127/86 O2 Sat by Pulse 96 95 Oximetry 09/19/19 21:56 Temperature 97.7 F Pulse Rate 101 H Pulse Rate [ Correspondence Coordinator ] Respiratory 18 Rate Blood Pressure 141/96 O2 Sat by Pulse 98 Oximetry Chest Pain [facility] <Rosa Isela Bernal - Last Filed: 09/20/19 00:23> <Debi Higgins - Last Filed: 09/23/19 13:38> - [facility] Patient is a 39-year-old male presenting with chest pain, shortness of breath since last night. Patient was recently discharged 3 days ago after a cardiac cath with stent placement. EKG reveals no acute changes, similar to previous EKG chest week. Lab work reveals a glucose of 373, troponin is elevated 0.161. BNP is 1050. Chest x-ray is relatively unchanged from previous, mild cardiomegaly. Patient was given nitro and morphine for his pain. He has been comfortable the ER. Patient will be admitted for serial troponins and cardiac consult. Patient was accepted by Dr. Dan. Patient is agreement with this plan of care. Case discussed with Dr. Higgins. (Rosa Isela Bernal) I was available for consultation in the emergency department. The history and physical exam were done by the midlevel provider. I was consulted for this patients care. I reviewed the case with the midlevel provider and based on their presentation of the patient, I agree with the assessment, medical decision making and plan of care as documented. Discussed case with Dr. Dan who accepted admission for the patient. Chart was dictated using [employer] dictation software. Attempts were made to correct any dictation errors however some typographical errors may persist. Patient was seen during the [facility] state of emergency due to Covid-19 pandemic. (Debi Higgins) Disposition Is patient prescribed a controlled substance at d/c from ED?: No Decision Date: 09/19/19 Decision Time: 21:24 <Rosa Isela Bernal - Last Filed: 09/20/19 00:23> <Debi Higgins - Last Filed: 09/23/19 13:38> Clinical Impression: Chest pain, Congestive heart failure, Elevated troponin Disposition: ADMITTED IP TO THIS HOSP Condition: Good
[2019-09-19 20:06] LABS: HCT 45.9 % (39.0-53.0); HGB 14.2 gm/dL (13.0-17.5); Hypochromasia Slight; MCH 26.8 pg (25.0-35.0); MCV 86.5 fL (80.0-100.0); Mean Platelet Volume 8.2; Platelet Count 274 k/uL (150-450); Poikilocytosis Slight; RBC 5.31 m/uL (4.30-5.90); RDW 14.1 % (11.5-15.5); WBC 8.4 k/uL (3.8-10.6)
--- NOTE | 2019-09-19 20:08 | XR ---
EXAMINATION TYPE: XR chest 2V DATE OF EXAM: 09/19/2019 COMPARISON: 09/11/2019 HISTORY: Difficulty breathing TECHNIQUE: 2 views FINDINGS: Heart is enlarged. There is no gross heart failure. There is no pleural effusion. There is a left axillary pacemaker. Bony thorax is intact.. IMPRESSION: Mild cardiomegaly unchanged. No overt heart failure. Pulmonary vascularity however increa sed slightly compared to old exam.
[2019-09-19 20:13] LABS: Partial Thromboplastin Time 23.1 sec (22.0-30.0); Prothrombin Time 10.8 sec (9.0-12.0)
[2019-09-19 20:15] LABS: ALT 103 U/L (4-49); AST 32 U/L (17-59); African American GFR (CKD) >90 (>60 ml/min/1.73 sqM); Albumin 3.4 g/dL (3.5-5.0); Alkaline Phosphatase 272 U/L (38-126); Anion Gap 10 mmol/L; Blood Urea Nitrogen 13 mg/dL (9-20); Calcium 8.9 mg/dL (8.4-10.2); Carbon Dioxide 24 mmol/L (22-30); Chloride 103 mmol/L (98-107); Glucose 373 mg/dL (74-99); Magnesium 1.8 mg/dL (1.6-2.3); Non-African American GFR(CKD) >90 (>60 ml/min/1.73 sqM); Potassium 4.3 mmol/L (3.5-5.1); Sodium 137 mmol/L (137-145); Total Bilirubin 1.1 mg/dL (0.2-1.3); Total Protein 6.4 g/dL (6.3-8.2)
[2019-09-19 20:53] LABS: Eosinophils # (M) 0.84 k/uL (0-0.7); Lymphocytes # (M) 2.77 k/uL (1.0-4.8); Monocytes # (M) 0.34 k/uL (0-1.0); Neutrophils # (M) 4.45 k/uL (1.3-7.7); Neutrophils % (M) 53 %; Nucleated Red Blood Cells 0 /100 WBC (0-0); Total Cells Counted 100
[2019-09-19 22:09] LABS: Glucose,Whole Blood 307 mg/dL (75-99)
[2019-09-19] MEDS ORDERED: HEPARIN SODIUM,PORCINE 5,000 UNIT/ML 1 ML VIAL IV ONE (22:55)
[2019-09-19] MEDS: HEPARIN SOD,PORK IN 0.45% NACL 25,000 UNIT in 0.45% NACL 1 250ML.BAG IV SCH (23:31)
[2019-09-19] MEDS: NITROGLYCERIN-D5W PMX 50 MG in DEXTROSE/WATER 1 250ML.BAG IV SCH (23:33)
[2019-09-20 05:16] LABS: Basophils # (A) 0.1 k/uL (0-0.2); Basophils % (A) 1 %; Eosinophils # (A) 0.5 k/uL (0-0.7); Eosinophils % (A) 6 %; HCT 44.5 % (39.0-53.0); HGB 14.5 gm/dL (13.0-17.5); Hypochromasia Moderate; Lymphocytes # (A) 2.2 k/uL (1.0-4.8); Lymphocytes % (A) 26 %; MCH 28.4 pg (25.0-35.0); MCHC 32.6 g/dL (31.0-37.0); MCV 87.1 fL (80.0-100.0); Mean Platelet Volume 8.2; Monocytes # (A) 0.5 k/uL (0-1.0); Monocytes % (A) 6 %; Neutrophils # (A) 4.9 k/uL (1.3-7.7); Neutrophils % (A) 59 %; Platelet Count 253 k/uL (150-450); Poikilocytosis Slight; RBC 5.11 m/uL (4.30-5.90); WBC 8.4 k/uL (3.8-10.6)
[2019-09-20 05:17] LABS: African American GFR (CKD) >90 (>60 ml/min/1.73 sqM); Anion Gap 9 mmol/L; Blood Urea Nitrogen 13 mg/dL (9-20); Calcium 8.5 mg/dL (8.4-10.2); Carbon Dioxide 22 mmol/L (22-30); Chloride 106 mmol/L (98-107); Cholesterol 80 mg/dL (<200); Glucose 275 mg/dL (74-99); HDL Cholesterol 21 mg/dL (40-60); LDL Cholesterol,Calculated 38 mg/dL (0-99); Non-African American GFR(CKD) >90 (>60 ml/min/1.73 sqM); Potassium 4.5 mmol/L (3.5-5.1); Sodium 137 mmol/L (137-145); Triglycerides 103 mg/dL (<150)
[2019-09-20] MEDS: HEPARIN SODIUM,PORCINE 5,000 UNIT/ML 1 ML VIAL IV PRN ×3 (05:29→22:09)
[2019-09-20 05:53] LABS: Glucose,Whole Blood 291 mg/dL (75-99)
[2019-09-20] MEDS: INSULIN ASPART (NovoLOG) 100 UNIT/ML VIAL SQ SCH ×4 (06:38→21:56)
[2019-09-20] MEDS ORDERED: FUROSEMIDE 10 MG/ML 4 ML VIAL IV STA (07:45)
--- NOTE | 2019-09-20 07:58 | P.CRDCN ---
History of Present Illness Consult date: 09/20/19 Requesting physician: Amrit Dan Consult reason: chest pain, shortness of breath Chief complaint: Chest pain and shortness of breath History of present illness: This is a pleasant 39-year-old gentleman with history of hypertension, diabetes, hyperlipidemia, coronary artery disease, ischemic cardio myopathy with prior AICD, who was just recently in the hospital earlier this month with a non-ST elevation myocardial infarction. He underwent successful stenting of the PLV branch of the right coronary artery, successful stenting of the mid RCA, and subsequent staged intervention with successful stenting of the first diagonal branch of the LAD. He was discharged home on the of this month. He had an echo performed during that admission which revealed an ejection fraction of less than 20%. States he felt well when he was discharged home, he does state that he did not take his Effient or his beta pernell because of some insurance issues. Presents back to the hospital with symptoms of chest pressure and heaviness with associated shortness of breath. He also states that he noticed swelling in his lower extremities and feels like he's carrying extra fluid all over. His blood pressure on presentation here was 150/90, heart rate 110, respirations 24, he has been afebrile. Laboratory data was reviewed, white blood cell count 8.4, hemoglobin 14.5, platelet count 253. Sodium 137, potassium 4.5, BUN 15, creatinine 0.6. Magnesium 1.8, AST 32, ALT 103, alk phos 272, troponin 0.161, 0.129, BNP level 1050. His EKG shows a sinus tachycardia with nonspecific ST-T wave changes. At the time of my examination this morning, he still continues to have mild pressure in his chest, he does feel short of breath and has one plus bilateral peripheral edema. Chest x-ray does show some pulmonary vascularity increased as compared with prior exam Past Medical History Past Medical History: Coronary Artery Disease (CAD), Chest Pain / Angina, Heart Failure, Diabetes Mellitus, Hyperlipidemia, Hypertension, Myocardial Infarction (AK), Sleep Apnea/CPAP/BIPAP, Syncope Additional Past Medical History / Comment(s): Cardiiomyopathy with AICD, IDDM type II, neuropathy bilateral feet, SP with Cpap use, migraines, chronic back pain. Last Myocardial Infarction Date:: 2015 History of Any Multi-Drug Resistant Organisms: None Reported Past Surgical History: AICD, Heart Catheterization, Heart Catheterization With Stent Additional Past Surgical History / Comment(s): 10/27/12 AICD, DFTs, PCI with stent Past Anesthesia/Blood Transfusion Reactions: No Reported Reaction Date of Last Stent Placement:: 02/03/16 Type of Cardiac Device: AICD Device Placement Date:: 2012 Past Psychological History: Anxiety Smoking Status: Former smoker Past Alcohol Use History: None Reported Past Drug Use History: None Reported - Past Family History Mother Family Medical History: No Reported History Additional Family Medical History / Comment(s): Mother is healthy Brother(s) Family Medical History: Myocardial Infarction (AK) Additional Family Medical History / Comment(s): Brother of a AK at the age of 35yrs. Father Family Medical History: Liver Disease Additional Family Medical History / Comment(s): Father when pt was 19 yrs old from liver disease. He was an alcoholic. Medications and Allergies Home Medications Medication Instructions Recorded Confirmed Type Aspirin EC [Ecotrin Low Dose] 81 mg PO DAILY 10/13/18 09/19/19 History Atorvastatin [Lipitor] 80 mg PO HS #90 tab 10/16/18 09/19/19 Rx Spironolactone [Aldactone] 25 mg PO DAILY #90 tab 10/16/18 09/19/19 Rx Losartan [Cozaar] 25 mg PO DAILY 03/11/19 09/19/19 History Insulin Glargine,Hum.rec.anlog 100 unit SQ DAILY 04/05/19 09/19/19 History [Basaglar Kwikpen U-100] metFORMIN HCL 1,000 mg PO DAILY 06/14/19 09/19/19 History Ibuprofen 800 mg PO QID PRN 09/11/19 09/19/19 History Metoprolol Succinate (ER) [Toprol 75 mg PO DAILY #30 tab.er.24h 09/16/19 09/19/19 Rx XL] Prasugrel [Effient] 10 mg PO DAILY #30 tab 09/16/19 09/19/19 Rx Furosemide [Lasix] 40 mg PO BID 09/19/19 09/19/19 History Allergies Allergy/AdvReac Type Severity Reaction Status Date / Time Penicillins Allergy Unknown Verified 09/19/19 21:15 Childhood Physical Exam Vitals: Vital Signs Temp Pulse Pulse Resp BP BP Pulse Ox 09/20/19 07:41 97.5 F L 100 18 103/77 99 09/20/19 03:39 98.5 F 96 20 95/62 98 09/20/19 00:00 98.1 F 103 H 18 134/105 96 09/19/19 22:30 98.2 F 110 H 18 141/99 94 L 09/19/19 21:56 97.7 F 101 H 18 141/96 98 09/19/19 20:15 95 18 127/86 95 09/19/19 19:44 101 H 09/19/19 19:24 98.4 F 112 H 24 150/94 96 Intake and Output 09/19/19 09/20/19 09/20/19 22:59 06:59 14:59 Intake Total 59.673 Output Total 540 Balance -480.327 Intake: Intake, IV Titration 59.673 Amount Heparin Sod,Pork in 0.45% 59.673 NaCl 25,000 unit In 0.45 % NaCl 1 250ml.bag @ 6.19 UNITS/KG/HR 10.001 mls/ hr IV .Q24H [facility] Rx#: [id number] Output: Urine 540 Other: # Voids 1 Weight 161.57 kg 160.8 kg PHYSICAL EXAMINATION: GENERAL: 39-year-old gentleman in no acute distress at the time of my examination HEENT: Head is atraumatic, normocephalic. Pupils equal, round. Sclera anicteric. Conjunctiva are clear. Mucous membranes of the mouth are moist. Neck is supple. There is elevated jugular venous pressure. No carotid bruit is heard. HEART EXAMINATION: Heart S1, S2 normal. No murmur or gallop heard. CHEST EXAMINATION: His reveal diminished air entry to the bases bilaterally ABDOMEN: Soft, obese, nontender. Bowel sounds are heard. No organomegaly noted. EXTREMITIES: 2+ peripheral pulses with 1+ evidence of peripheral edema and no calf tenderness noted. NEUROLOGIC patient is awake, alert and oriented 3 . . Results 09/20/19 04:38 09/20/19 04:38 Cardiac Enzymes 09/19/19 09/19/19 09/20/19 Range/Units 19:46 19:46 01:50 AST 32 (17-59) U/L Troponin I 0.161 H* 0.129 H* (0.000-0.034) ng/mL Coagulation 09/19/19 09/20/19 Range/Units 19:46 04:38 PT 10.8 (9.0-12.0) sec APTT 23.1 24.3 (22.0-30.0) sec Lipids 09/20/19 Range/Units 04:38 Triglycerides 103 (<150) mg/dL Cholesterol 80 (<200) mg/dL HDL Cholesterol 21 L (40-60) mg/dL CBC 09/19/19 09/20/19 Range/Units 19:46 04:38 WBC 8.4 8.4 (3.8-10.6) k/uL RBC 5.31 5.11 (4.30-5.90) m/uL Hgb 14.2 14.5 (13.0-17.5) gm/dL Hct 45.9 44.5 (39.0-53.0) % Plt Count 274 253 (150-450) k/uL Comprehensive Metabolic Panel 09/19/19 09/20/19 Range/Units 19:46 04:38 Sodium 137 137 (137-145) mmol/L Potassium 4.3 4.5 (3.5-5.1) mmol/L Chloride 103 106 (98-107) mmol/L Carbon Dioxide 24 22 (22-30) mmol/L BUN 13 13 (9-20) mg/dL Creatinine 0.76 0.66 (0.66-1.25) mg/dL Glucose 373 H 275 H (74-99) mg/dL Calcium 8.9 8.5 (8.4-10.2) mg/dL AST 32 (17-59) U/L ALT 103 H (4-49) U/L Alkaline Phosphatase 272 H (38-126) U/L Total Protein 6.4 (6.3-8.2) g/dL Albumin 3.4 L (3.5-5.0) g/dL Current Medications Generic Name Dose Route Start Last Admin Trade Name Freq PRN Reason Stop Dose Admin Atorvastatin Calcium 80 mg 09/20/19 21:00 Lipitor PO HS [facility] Furosemide 40 mg 09/20/19 09:00 Lasix PO BID [facility] Furosemide 40 mg 09/20/19 07:45 Lasix IV 09/20/19 07:46 ONCE STA Heparin Sodium (Porcine) 0 unit 09/19/19 22:55 09/20/19 05:29 Heparin IV 4,000 unit PER PROTOCOL PRN Administration Low PTT Protocol Heparin Sodium/Sodium Chloride 250 mls @ 10.001 mls/hr 09/19/19 23:00 09/20/19 05:29 25,000 unit/ Sodium Chloride IV 9.19 units/kg/hr .Q24H [facility] 14.848 mls/hr Titration Protocol 6.19 UNITS/KG/HR Nitroglycerin/Dextrose 50 mg/ 250 mls @ 1.5 mls/hr 09/19/19 23:15 09/19/19 23:33 IV Solution IV 5 mcg/min .Q24H [facility] 1.5 mls/hr Administration Protocol 5 MCG/MIN Insulin Aspart 0 unit 09/20/19 07:30 09/20/19 06:38 Novolog SQ 12 unit ACHS [facility] Administration Protocol Metoprolol Succinate 75 mg 09/20/19 09:00 Toprol Xl PO DAILY [facility] Nitroglycerin 0.4 mg 09/19/19 21:17 Nitrostat SUBLINGUAL Q5M PRN Chest Pain Non-Formulary Medication 81 mg 09/20/19 09:00 Aspirin Ec PO DAILY [facility] Prasugrel 10 mg 09/20/19 09:00 Effient PO DAILY [facility] Spironolactone 25 mg 09/20/19 09:00 Aldactone PO DAILY [facility] Intake and Output 09/19/19 09/20/19 09/20/19 22:59 06:59 14:59 Intake Total 59.673 Output Total 540 Balance -480.327 Intake: Intake, IV Titration 59.673 Amount Heparin Sod,Pork in 0.45% 59.673 NaCl 25,000 unit In 0.45 % NaCl 1 250ml.bag @ 6.19 UNITS/KG/HR 10.001 mls/ hr IV .Q24H [facility] Rx#: [id number] Output: Urine 540 Other: # Voids 1 Weight 161.57 kg 160.8 kg 09/20/19 04:38 09/20/19 04:38 EKG Interpretations (text) EKG shows a sinus tachycardia with nonspecific ST-T wave changes Assessment and Plan Plan: Assessment and plan #1 chest pressure and heaviness with associated shortness of breath in a patient with recent coronary intervention. EKG shows a sinus tachycardia with nonspecific ST-T wave changes. Troponins 0.16, 0.12, downward trend from recent admission #2 systolic congestive heart failure acute on chronic #3 recent non-Q-wave myocardial infarction with stenting of the PLV branch of the RCA, mid RCA, and diagonal branch of the LAD #4 diabetes #5 hypertension #6 hyperlipidemia #7 ischemic cardio myopathy with prior Aicd #8 obstructive sleep apnea Plan Patient was discharged home on the , has been without taking Effient for 3 days, we'll give him a dose of Effient now along with aspirin, we will also give him a dose of 40 mg IV Lasix now. Resume his Lipitor, metoprolol, Aldactone, and losartan. Patient has also been advised that he may need to undergo repeat cardiac catheterization to evaluate his coronary arteries. He had an echo performed last week which revealed an ejection fraction of less than 20%. Further recommendations to follow. DNP note has been reviewed, I agree with a documented findings and plan of care. Patient was seen and examined.
[2019-09-20] MEDS: METOPROLOL SUCCINATE (ER) 25 MG TAB.ER.24H PO SCH (08:04)
[2019-09-20] MEDS: PRASUGREL 10 MG TAB PO SCH (08:04)
[2019-09-20] MEDS: FUROSEMIDE 40 MG TAB PO SCH ×2 (08:04→21:56)
[2019-09-20] MEDS: ASPIRIN 81 MG PO SCH (08:04)
[2019-09-20] MEDS: SPIRONOLACTONE 25 MG TAB PO SCH (08:04)
[2019-09-20] MEDS ORDERED: ASPIRIN 325 MG TAB PO SCH (09:00)
[2019-09-20 11:28] LABS: Glucose,Whole Blood 164 mg/dL (75-99)
[2019-09-20] MEDS ORDERED: IBUPROFEN 800 MG TAB PO PRN (16:06)
[2019-09-20] MEDS: LOSARTAN 25 MG TAB PO SCH (17:34)
[2019-09-20 17:44] LABS: Glucose,Whole Blood 248 mg/dL (75-99)
[2019-09-20 20:25] LABS: Glucose,Whole Blood 308 mg/dL (75-99)
[2019-09-20] MEDS: ATORVASTATIN 80 MG TAB PO SCH (21:56)
--- NOTE | 2019-09-20 23:47 | HP ---
HISTORY AND PHYSICAL CHIEF COMPLAINT: Chest pain and shortness of breath. HISTORY OF PRESENT ILLNESS: This is another recent admission for this 39-year-old obese male. He was just in the hospital and had 2 stents placed in coronary arteries. He is very noncompliant. As per his usual behavior, he went home and did not get some of the medications filled including Effient. Three days later he developed pain, came back to the emergency room and his troponin was elevated again. REVIEW OF SYSTEMS: He has had no fever, orthopnea, PND, syncope, etc. Past medical history, family history and personal and social histories are all otherwise unchanged from his recent admitting and discharge summaries. He is very noncompliant when it comes to his diabetic management as well. He is running blood sugars near 300. PHYSICAL EXAM: Blood pressure is 95/62 with a pulse of 100, respiration of 20 and he is afebrile. In general, he appeared to be obese and in no acute distress. Skin color is normal. Skin is warm, dry. Lymph nodes are not enlarged. Head, ears, eyes, nose, mouth, and throat were normal. Neck veins not distended. Chest is clear. Cardiac exam demonstrates sinus rhythm with no murmurs or extra sounds. The abdomen is protuberant, soft, nontender without visceromegaly or masses. Bowel sounds are present. Extremities are normal. Neurologically, he is intact. He is admitted to the hospital with diagnoses: 1. Coronary artery disease. 2. Unstable angina pectoris. 3. Rule out fresh myocardial infarction. 4. Recent myocardial infarction. 5. Uncontrolled hypertension. 6. Uncontrolled diabetes. 7. Obesity. PLAN: 1. Bed rest. 2. IV fluids. 3. Repeat EKGs and enzymes. 4. Consult with Cardiology regarding any further management. MMODL / IJN: [id number] /
--- NOTE | 2019-09-21 00:08 | PN ---
PROGRESS NOTE DATE OF SERVICE: 09/20/2019 CHIEF COMPLAINT: Unstable angina and possible fresh HI. HISTORY OF PRESENT ILLNESS: This gentleman is not having any pain at this time and he is currently in sinus rhythm. PHYSICAL EXAMINATION: Chest is clear. Cardiac exam is normal. He is in sinus rhythm. The abdomen is protuberant, soft, and nontender. Extremities are normal. IMPRESSION: 1. Unstable angina pectoris. 2. Recent myocardial infarction. 3. Coronary artery disease. 4. Uncontrolled diabetes. PLAN: Await any guidelines from Cardiology regarding any further management. MMODL / IJN: [id number] /
[2019-09-21] MEDS: HEPARIN SOD,PORK IN 0.45% NACL 25,000 UNIT in 0.45% NACL 1 250ML.BAG IV SCH (03:03)
[2019-09-21 03:49] LABS: Basophils # (A) 0.1 k/uL (0-0.2); Basophils % (A) 2 %; Eosinophils # (A) 0.4 k/uL (0-0.7); Eosinophils % (A) 6 %; HCT 45.9 % (39.0-53.0); HGB 14.1 gm/dL (13.0-17.5); Hypochromasia Moderate; Lymphocytes # (A) 2.1 k/uL (1.0-4.8); Lymphocytes % (A) 29 %; MCH 26.9 pg (25.0-35.0); MCHC 30.8 g/dL (31.0-37.0); MCV 87.4 fL (80.0-100.0); Mean Platelet Volume 7.4; Monocytes # (A) 0.6 k/uL (0-1.0); Monocytes % (A) 8 %; Neutrophils # (A) 3.8 k/uL (1.3-7.7); Neutrophils % (A) 53 %; Platelet Count 182 k/uL (150-450); Poikilocytosis Slight; RBC 5.25 m/uL (4.30-5.90); RDW 14.2 % (11.5-15.5); WBC 7.2 k/uL (3.8-10.6)
[2019-09-21] MEDS: NITROGLYCERIN-D5W PMX 50 MG in DEXTROSE/WATER 1 250ML.BAG IV SCH (05:15)
[2019-09-21 06:05] LABS: Glucose,Whole Blood 202 mg/dL (75-99)
[2019-09-21] MEDS: INSULIN ASPART (NovoLOG) 100 UNIT/ML VIAL SQ SCH ×4 (06:56→21:44)
[2019-09-21 09:02] LABS: Glucose,Whole Blood 299 mg/dL (75-99)
[2019-09-21] MEDS: LOSARTAN 25 MG TAB PO SCH (09:02)
[2019-09-21] MEDS: SPIRONOLACTONE 25 MG TAB PO SCH (09:02)
[2019-09-21] MEDS: PRASUGREL 10 MG TAB PO SCH (09:03)
[2019-09-21] MEDS: FUROSEMIDE 40 MG TAB PO SCH ×2 (09:03→21:43)
[2019-09-21] MEDS: INSULIN DETEMIR (LEVEMIR) 100 UNIT/ML SYR SQ SCH (09:03)
[2019-09-21] MEDS: METOPROLOL SUCCINATE (ER) 25 MG TAB.ER.24H PO SCH (09:03)
[2019-09-21] MEDS: ASPIRIN 81 MG PO SCH (09:03)
[2019-09-21 10:52] LABS: Hemoglobin A1C 11.8 % (4.0-6.0)
--- NOTE | 2019-09-21 11:35 | P.PN ---
Subjective Progress Note Date: 09/21/19 This is a pleasant 39-year-old gentleman with history of hypertension, diabetes, hyperlipidemia, coronary artery disease, ischemic cardio myopathy with prior AICD, who was just recently in the hospital earlier this month with a non-ST elevation myocardial infarction. He underwent successful stenting of the PLV branch of the right coronary artery, successful stenting of the mid RCA, and subsequent staged intervention with successful stenting of the first diagonal branch of the LAD. He was discharged home on the of this month. He had an echo performed during that admission which revealed an ejection fraction of less than 20%. States he felt well when he was discharged home, he does state that he did not take his Effient or his beta pernell because of some insurance issues. Presents back to the hospital with symptoms of chest pressure and heaviness with associated shortness of breath. He also states that he noticed swelling in his lower extremities and feels like he's carrying extra fluid all over. His blood pressure on presentation here was 150/90, heart rate 110, respirations 24, he has been afebrile. Laboratory data was reviewed, white blood cell count 8.4, hemoglobin 14.5, platelet count 253. Sodium 137, potassium 4.5, BUN 15, creatinine 0.6. Magnesium 1.8, AST 32, ALT 103, alk phos 272, troponin 0.161, 0.129, BNP level 1050. His EKG shows a sinus tachycardia with nonspecific ST-T wave changes. At the time of my examination this morning, he still continues to have mild pressure in his chest, he does feel short of breath and has one plus bilateral peripheral edema. Chest x-ray does show some pulmonary vascularity increased as compared with prior exam. 09/21/2019 Patient was seen and examined this morning, he was up urinating several times through the night, diuresing on the IV Lasix. He still feel somewhat short of breath today, continues to have bilateral edema. Blood pressure 116/80 with a heart rate of 90, 97% on room air. Lytes BUN and creatinine are pending. Objective - Vital Signs Vital signs: Vital Signs Temp 97.6 F 09/21/19 08:00 Pulse 96 09/21/19 08:00 Resp 16 09/21/19 08:00 BP 116/80 09/21/19 08:00 Pulse Ox 97 09/21/19 08:00 Intake & Output 09/20/19 09/21/19 09/21/19 18:59 06:59 18:59 Intake Total 795.567 226.126 356 Output Total 540 Balance 255.567 226.126 356 Weight 161.2 kg Intake: IV 160 100 80 saline 160 100 80 Intake, IV Titration 155.567 126.126 40 Amount Heparin Sod,Pork in 0.45% 115.567 101.126 NaCl 25,000 unit In 0.45 % NaCl 1 250ml.bag @ 6.19 UNITS/KG/HR 10.001 mls/ hr IV .Q24H [facility] Rx#: [id number] Nitroglycerin-D5w Pmx 50 40 25 40 mg In Dextrose/Water 1 250ml.bag @ 5 MCG/MIN 1.5 mls/hr IV .Q24H [facility] Rx#: [id number] Oral 480 236 Output: Urine 540 Other: Voiding Method Toilet Toilet Urinal Urinal # Voids 3 1 2 - Exam PHYSICAL EXAMINATION: GENERAL: 39-year-old gentleman in no acute distress at the time of my examination HEENT: Head is atraumatic, normocephalic. Pupils equal, round. Sclera anicteric. Conjunctiva are clear. Mucous membranes of the mouth are moist. Neck is supple. There is elevated jugular venous pressure. No carotid bruit is heard. HEART EXAMINATION: Heart S1, S2 normal. No murmur or gallop heard. CHEST EXAMINATION: His reveal diminished air entry to the bases bilaterally ABDOMEN: Soft, obese, nontender. Bowel sounds are heard. No organomegaly noted. EXTREMITIES: 2+ peripheral pulses with 1+ evidence of peripheral edema and no calf tenderness noted. NEUROLOGIC patient is awake, alert and oriented 3 . - Labs CBC & Chem 7: 09/21/19 03:31 09/20/19 04:38 Labs: Abnormal Lab Results - Last 24 Hours (Table) 09/20/19 09/20/19 09/20/19 Range/Units 04:38 11:15 17:38 MCHC (31.0-37.0) g/dL APTT 30.1 H (22.0-30.0) sec POC Glucose (mg/dL) 248 H (75-99) mg/dL Hemoglobin A1c 11.8 H (4.0-6.0) % 09/20/19 09/20/19 09/21/19 Range/Units 19:18 20:24 03:31 MCHC 30.8 L (31.0-37.0) g/dL APTT 35.8 H (22.0-30.0) sec POC Glucose (mg/dL) 308 H (75-99) mg/dL Hemoglobin A1c (4.0-6.0) % 09/21/19 09/21/19 09/21/19 Range/Units 03:31 06:03 08:57 MCHC (31.0-37.0) g/dL APTT 50.3 H (22.0-30.0) sec POC Glucose (mg/dL) 202 H 299 H (75-99) mg/dL Hemoglobin A1c (4.0-6.0) % Assessment and Plan Plan: Assessment and plan #1 chest pressure and heaviness with associated shortness of breath in a patient with recent coronary intervention. EKG shows a sinus tachycardia with nonspecific ST-T wave changes. Troponins 0.16, 0.12, downward trend from recent admission #2 systolic congestive heart failure acute on chronic #3 recent non-Q-wave myocardial infarction with stenting of the PLV branch of the RCA, mid RCA, and diagonal branch of the LAD #4 diabetes #5 hypertension #6 hyperlipidemia #7 ischemic cardio myopathy with prior Aicd #8 obstructive sleep apnea Plan We will continue current dose of IV Lasix, monitor intake and output along with daily weights and daily lytes BUN and creatinine. Plan for possible discharge home in 24 hours if stable. DNP note has been reviewed, I agree with a documented findings and plan of care. Patient was seen and examined.
[2019-09-21 11:55] LABS: African American GFR (CKD) >90 (>60 ml/min/1.73 sqM); Anion Gap 8 mmol/L; Blood Urea Nitrogen 18 mg/dL (9-20); Calcium 8.5 mg/dL (8.4-10.2); Carbon Dioxide 24 mmol/L (22-30); Chloride 105 mmol/L (98-107); Glucose 184 mg/dL (74-99); Non-African American GFR(CKD) >90 (>60 ml/min/1.73 sqM); Potassium 4.2 mmol/L (3.5-5.1); Sodium 137 mmol/L (137-145)
[2019-09-21 12:37] LABS: Glucose,Whole Blood 292 mg/dL (75-99)
[2019-09-21 16:31] LABS: Glucose,Whole Blood 182 mg/dL (75-99)
--- NOTE | 2019-09-21 19:45 | DS ---
DISCHARGE SUMMARY CHIEF COMPLAINT: Chest pain, shortness of breath. HISTORY OF PRESENT ILLNESS AND PHYSICAL EXAMINATION: Details of this man's history and physical can be found in the initial workup. LABORATORY STUDIES: While he was in the hospital he had laboratory studies, details of which can be found in the laboratory section of his chart. COURSE IN THE HOSPITAL: After admission he was placed on bedrest, started on intravenous fluids and was seen by Cardiology. It was felt that nothing further could be done, and the important point in this young man's treatment plan would be that he would get medications when they were prescribed and take them faithfully and responsibly. He will go home on the usual medications that he came in and he will be seen in the office several days. FINAL DIAGNOSES: 1. Acute coronary syndrome. 2. Recent myocardial infarction. 3. Extensive coronary artery disease. 4. Uncontrolled diabetes. 5. Essential hypertension. 6. Congestive heart failure, chronic, diastolic. 7. Cardiomyopathy. OPERATIONS: None. CONSULTATION: Cardiology. He is improved. MMODL / IJN: [id number] /
[2019-09-21 20:25] LABS: Glucose,Whole Blood 243 mg/dL (75-99)
[2019-09-21] MEDS: ATORVASTATIN 80 MG TAB PO SCH (21:43)
[2019-09-21] MEDS: NITROGLYCERIN SL TABS 0.4 MG TAB SUBLINGUAL PRN ×3 (23:27→23:40)
[2019-09-22 06:12] LABS: Glucose,Whole Blood 217 mg/dL (75-99)
[2019-09-22] MEDS: INSULIN ASPART (NovoLOG) 100 UNIT/ML VIAL SQ SCH ×4 (06:37→20:37)
[2019-09-22 06:44] LABS: HCT 45.9 % (39.0-53.0); HGB 14.8 gm/dL (13.0-17.5); Hypochromasia Moderate; MCH 28.3 pg (25.0-35.0); MCHC 32.3 g/dL (31.0-37.0); MCV 87.7 fL (80.0-100.0); Mean Platelet Volume 7.7; Platelet Count 254 k/uL (150-450); Poikilocytosis Slight; RBC 5.23 m/uL (4.30-5.90); RDW 14.2 % (11.5-15.5); WBC 7.2 k/uL (3.8-10.6)
[2019-09-22 06:46] LABS: African American GFR (CKD) >90 (>60 ml/min/1.73 sqM); Anion Gap 9 mmol/L; Blood Urea Nitrogen 20 mg/dL (9-20); Calcium 8.5 mg/dL (8.4-10.2); Carbon Dioxide 23 mmol/L (22-30); Chloride 104 mmol/L (98-107); Glucose 209 mg/dL (74-99); Non-African American GFR(CKD) >90 (>60 ml/min/1.73 sqM); Potassium 4.7 mmol/L (3.5-5.1); Sodium 136 mmol/L (137-145)
[2019-09-22 07:23] LABS: Eosinophils # (M) 0.22 k/uL (0-0.7); Lymphocytes # (M) 1.51 k/uL (1.0-4.8); Monocytes # (M) 0.58 k/uL (0-1.0); Neutrophils % (M) 68 %; Nucleated Red Blood Cells 0 /100 WBC (0-0); Total Cells Counted 100
[2019-09-22] MEDS: INSULIN DETEMIR (LEVEMIR) 100 UNIT/ML SYR SQ SCH (08:16)
[2019-09-22] MEDS: SPIRONOLACTONE 25 MG TAB PO SCH (08:16)
[2019-09-22] MEDS: ASPIRIN 81 MG PO SCH (08:16)
[2019-09-22] MEDS: LOSARTAN 25 MG TAB PO SCH (08:16)
[2019-09-22] MEDS: PRASUGREL 10 MG TAB PO SCH (08:16)
[2019-09-22] MEDS: FUROSEMIDE 40 MG TAB PO SCH ×2 (08:16→20:36)
[2019-09-22] MEDS: METOPROLOL SUCCINATE (ER) 25 MG TAB.ER.24H PO SCH (08:16)
[2019-09-22] MEDS ORDERED: FUROSEMIDE 10 MG/ML 4 ML VIAL IV STA (09:04)
--- NOTE | 2019-09-22 11:00 | CDI ---
Documentation Clarification Form Date: 09/22/2019 08:56:00 AM From: Oralia Wesley RN, CCDS Admit Date: 09/19/2019 09:19:00 PM Patient Name: Shaun Roldan Visit Number: [id number] Discharge Date: ATTENTION: The Clinical Documentation Specialists (CDI) and [facility] Coding Staff appreciate your assistance in clarifying documentation. Please respond to the clarification below the line at the bottom and electronically sign. The CDI & [facility] Coding staff will review the response and follow-up if needed. Please note: Queries are made part of the Legal Health Record. If you have any questions, please contact the author of this message via ITS. Dr. Amrit Dan Conflicting documentation has been found in the medical record: 09/20 Cardiology consult and ongoing progress note: Systolic congestive heart failure acute on chronic 09/20 In discharge summary: Congestive heart failure chronic diastolic History/Risk Factors: Hypertension, Congestive heart failure, Diabetes Mellitus, Coronary artery disease, [place] Clinical Indicators: 39-year-old male presenting with chest pain, shortness of breath. Patient was discharged 3 days prior to returning to ED on 09/18. 09/18 Vital signs on admission: 150/94 112 24 98.4 96 % RA 09/18 Labs BNP 1050, troponin 0.161 09/18 EKG: sinus tachycardia vent rate 104 09/18 Chest x-ray: Mild cardiomegaly unchanged. No overt heart failure. Pulmonary vascularity however increased slightly compared to old exam. 09/10 ECHO: Paced rhythm. Overall left ventricular systolic function is severely impaired with, an EF <20 % The right ventricle is moderately enlarged. Treatment: Lasix 40 IV once (09/19) 40 po bid 09/19-09/21 Lasix 40 IV once 09/21 Aldactone 25 mg po Daily 09/19-09/21 Toprol XL 75 mg po daily Cozaar 25 mg po daily Effient 10 mg po daily 09/19- Lipitor 80 mg po HS In your opinion, what is the most clinically appropriate diagnosis for this patient? Systolic Congestive Heart Failure Acute on Chronic Chronic Systolic Heart Failure Other explanation of clinical findings Unable to determine (no explanation for clinical findings) (Last Revision: July 2017) MTDD
[2019-09-22 11:09] LABS: Glucose,Whole Blood 272 mg/dL (75-99)
--- NOTE | 2019-09-22 11:23 | CDI ---
Documentation Clarification Form Date: 09/22/2019 11:02:00 AM From: Oralia Wesley RN,CCDS Admit Date: 09/19/2019 09:19:00 PM Patient Name: Shaun Roldan Visit Number: [id number] Discharge Date: ATTENTION: The Clinical Documentation Specialists (CDI) and [facility] Coding Staff appreciate your assistance in clarifying documentation. Please respond to the clarification below the line at the bottom and electronically sign. The CDI & [facility] Coding staff will review the response and follow-up if needed. Please note: Queries are made part of the Legal Health Record. If you have any questions, please contact the author of this message via ITS. Dr. Amrit Dan The patient history of Diabetes Mellitus with current treatment. Discharge summary has uncontrolled diabetes and further specificity is requested. History/Risk Factors: Diabetes Mellitus, Coronary artery disease, [place], Hypertension, Congestive heart failure, Clinical Indicators: 39-year-old male presenting with chest pain, shortness of breath. Patient was discharged 3 days prior to returning to ED on 09/18. Upon arrival to the ER lab work reveals glucose of 373. 09/18 Labs: Glucose 373, 307 09/19 Hemoglobin A1c 11.8 Treatment: 09/19 Novolog SQ Correction scale ACHS 09/19 Levemir 100 units SQ Daily @0700 [facility] Monitor Blood sugars ACHS In order to capture the severity of Illness and necessary documentation specificity, please clarify uncontrolled diabetes: DM Type 2 with Hyperglycemia Other, please specify Unable to Determine (Last Revision: January 2017) MTDD
--- NOTE | 2019-09-22 11:30 | P.PN ---
Subjective Progress Note Date: 09/22/19 This is a pleasant 39-year-old gentleman with history of hypertension, diabetes, hyperlipidemia, coronary artery disease, ischemic cardio myopathy with prior AICD, who was just recently in the hospital earlier this month with a non-ST elevation myocardial infarction. He underwent successful stenting of the PLV branch of the right coronary artery, successful stenting of the mid RCA, and subsequent staged intervention with successful stenting of the first diagonal branch of the LAD. He was discharged home on the of this month. He had an echo performed during that admission which revealed an ejection fraction of less than 20%. States he felt well when he was discharged home, he does state that he did not take his Effient or his beta pernell because of some insurance issues. Presents back to the hospital with symptoms of chest pressure and heaviness with associated shortness of breath. He also states that he noticed swelling in his lower extremities and feels like he's carrying extra fluid all over. His blood pressure on presentation here was 150/90, heart rate 110, respirations 24, he has been afebrile. Laboratory data was reviewed, white blood cell count 8.4, hemoglobin 14.5, platelet count 253. Sodium 137, potassium 4.5, BUN 15, creatinine 0.6. Magnesium 1.8, AST 32, ALT 103, alk phos 272, troponin 0.161, 0.129, BNP level 1050. His EKG shows a sinus tachycardia with nonspecific ST-T wave changes. At the time of my examination this morning, he still continues to have mild pressure in his chest, he does feel short of breath and has one plus bilateral peripheral edema. Chest x-ray does show some pulmonary vascularity increased as compared with prior exam. 09/21/2019 Patient was seen and examined this morning, he was up urinating several times through the night, diuresing on the IV Lasix. He still feel somewhat short of breath today, continues to have bilateral edema. Blood pressure 116/80 with a heart rate of 90, 97% on room air. Lytes BUN and creatinine are pending. 09/22/2019 Patient was seen and examined this morning, feeling much better overall. Diuresed well through the night last night. Still complaining of some mild orthopnea. Blood pressure 120/80 with a heart rate in the 90s, 94% on room air. White blood cell count 7.2, hemoglobin 14.8, platelet count 254. Sodium 136, potassium 4.7, BUN 20, creatinine 0.7. Objective - Vital Signs Vital signs: Vital Signs Temp 98 F 09/22/19 08:00 Pulse 93 09/22/19 08:00 Resp 18 09/22/19 08:00 BP 119/85 09/22/19 08:00 Pulse Ox 94 L 09/22/19 08:00 Intake & Output 09/21/19 09/22/19 09/22/19 18:59 06:59 18:59 Intake Total 1466 120 Balance 1466 120 Weight 160.5 kg Intake: IV 80 saline 80 Intake, IV Titration 40 Amount Nitroglycerin-D5w Pmx 50 40 mg In Dextrose/Water 1 250ml.bag @ 5 MCG/MIN 1.5 mls/hr IV .Q24H [facility] Rx#: [id number] Oral 1346 120 Other: Voiding Method Toilet Toilet Urinal Urinal # Voids 2 1 - Exam PHYSICAL EXAMINATION: GENERAL: 39-year-old gentleman in no acute distress at the time of my examination HEENT: Head is atraumatic, normocephalic. Pupils equal, round. Sclera anicteric. Conjunctiva are clear. Mucous membranes of the mouth are moist. Neck is supple. There is elevated jugular venous pressure. No carotid bruit is heard. HEART EXAMINATION: Heart S1, S2 normal. No murmur or gallop heard. CHEST EXAMINATION: Lungs reveal improvement in air entry to the bases bilaterally ABDOMEN: Soft, obese, nontender. Bowel sounds are heard. No organomegaly noted. EXTREMITIES: 2+ peripheral pulses with trace -1+ evidence of peripheral edema and no calf tenderness noted. NEUROLOGIC patient is awake, alert and oriented 3 . - Labs CBC & Chem 7: 09/22/19 06:03 09/22/19 06:03 Labs: Abnormal Lab Results - Last 24 Hours (Table) 09/21/19 09/21/19 09/21/19 Range/Units 03:31 12:03 16:31 Sodium (137-145) mmol/L Glucose 184 H (74-99) mg/dL POC Glucose (mg/dL) 292 H 182 H (75-99) mg/dL 09/21/19 09/22/19 09/22/19 Range/Units 20:22 06:03 06:11 Sodium 136 L (137-145) mmol/L Glucose 209 H (74-99) mg/dL POC Glucose (mg/dL) 243 H 217 H (75-99) mg/dL 09/22/19 Range/Units 11:04 Sodium (137-145) mmol/L Glucose (74-99) mg/dL POC Glucose (mg/dL) 272 H (75-99) mg/dL Assessment and Plan Plan: Assessment and plan #1 chest pressure and heaviness with associated shortness of breath in a patient with recent coronary intervention. EKG shows a sinus tachycardia with nonspecific ST-T wave changes. Troponins 0.16, 0.12, downward trend from recent admission #2 systolic congestive heart failure acute on chronic #3 recent non-Q-wave myocardial infarction with stenting of the PLV branch of the RCA, mid RCA, and diagonal branch of the LAD #4 diabetes #5 hypertension #6 hyperlipidemia #7 ischemic cardio myopathy with prior Aicd #8 obstructive sleep apnea Plan We will give the patient one more dose of IV Lasix this morning, switch over to oral diuretics. Repeat a chest x-ray. Possible discharge home later today. DNP note has been reviewed, I agree with a documented findings and plan of care. Patient was seen and examined.
[2019-09-22 12:11] VITALS: BMI 47.9
--- NOTE | 2019-09-22 14:07 | XR ---
EXAMINATION TYPE: XR chest 2V DATE OF EXAM: 09/22/2019 COMPARISON: 09/19/2019 INDICATION: CHF fluid retention short of breath TECHNIQUE: Frontal and lateral views of the chest are obtained. FINDINGS: The heart size is enlarged. The pulmonary vasculature is normal. Mild infiltrate has improved from comparison. IMPRESSION: 1. Resolution previous congestive heart failure/volume overload. 2. Cardiomegaly
[2019-09-22 16:50] LABS: Glucose,Whole Blood 329 mg/dL (75-99)
[2019-09-22 20:26] LABS: Glucose,Whole Blood 191 mg/dL (75-99)
[2019-09-22] MEDS: ATORVASTATIN 80 MG TAB PO SCH (20:36)
[2019-09-23 06:56] LABS: African American GFR (CKD) >90 (>60 ml/min/1.73 sqM); Anion Gap 9 mmol/L; Blood Urea Nitrogen 20 mg/dL (9-20); Calcium 8.6 mg/dL (8.4-10.2); Carbon Dioxide 25 mmol/L (22-30); Chloride 102 mmol/L (98-107); Glucose 242 mg/dL (74-99); Non-African American GFR(CKD) >90 (>60 ml/min/1.73 sqM); Potassium 4.5 mmol/L (3.5-5.1); Sodium 136 mmol/L (137-145)
[2019-09-23 07:02] LABS: Glucose,Whole Blood 253 mg/dL (75-99)
[2019-09-23 07:53] VITALS: BP 113/88; RESP 18; TEMP 97.7
[2019-09-23] MEDS: METOPROLOL SUCCINATE (ER) 25 MG TAB.ER.24H PO SCH (08:17)
[2019-09-23] MEDS: ASPIRIN 81 MG PO SCH (08:17)
[2019-09-23] MEDS: LOSARTAN 25 MG TAB PO SCH (08:17)
[2019-09-23] MEDS: FUROSEMIDE 40 MG TAB PO SCH (08:17)
[2019-09-23] MEDS: PRASUGREL 10 MG TAB PO SCH (08:17)
[2019-09-23] MEDS: SPIRONOLACTONE 25 MG TAB PO SCH (08:17)
[2019-09-23] MEDS: INSULIN DETEMIR (LEVEMIR) 100 UNIT/ML SYR SQ SCH (08:18)
[2019-09-23] MEDS: INSULIN ASPART (NovoLOG) 100 UNIT/ML VIAL SQ SCH (08:23)
[2019-09-23 09:31] VITALS: PULSE 98
--- NOTE | 2019-09-23 13:55 | P.PN ---
Subjective Progress Note Date: 09/23/19 This is a pleasant 39-year-old gentleman with history of hypertension, diabetes, hyperlipidemia, coronary artery disease, ischemic cardio myopathy with prior AICD, who was just recently in the hospital earlier this month with a non-ST elevation myocardial infarction. He underwent successful stenting of the PLV branch of the right coronary artery, successful stenting of the mid RCA, and subsequent staged intervention with successful stenting of the first diagonal branch of the LAD. He was discharged home on the of this month. He had an echo performed during that admission which revealed an ejection fraction of less than 20%. States he felt well when he was discharged home, he does state that he did not take his Effient or his beta pernell because of some insurance issues. Presents back to the hospital with symptoms of chest pressure and heaviness with associated shortness of breath. He also states that he noticed swelling in his lower extremities and feels like he's carrying extra fluid all over. His blood pressure on presentation here was 150/90, heart rate 110, respirations 24, he has been afebrile. Laboratory data was reviewed, white blood cell count 8.4, hemoglobin 14.5, platelet count 253. Sodium 137, potassium 4.5, BUN 15, creatinine 0.6. Magnesium 1.8, AST 32, ALT 103, alk phos 272, troponin 0.161, 0.129, BNP level 1050. His EKG shows a sinus tachycardia with nonspecific ST-T wave changes. At the time of my examination this morning, he still continues to have mild pressure in his chest, he does feel short of breath and has one plus bilateral peripheral edema. Chest x-ray does show some pulmonary vascularity increased as compared with prior exam. 09/21/2019 Patient was seen and examined this morning, he was up urinating several times through the night, diuresing on the IV Lasix. He still feel somewhat short of breath today, continues to have bilateral edema. Blood pressure 116/80 with a heart rate of 90, 97% on room air. Lytes BUN and creatinine are pending. 09/22/2019 Patient was seen and examined this morning, feeling much better overall. Diuresed well through the night last night. Still complaining of some mild orthopnea. Blood pressure 120/80 with a heart rate in the 90s, 94% on room air. White blood cell count 7.2, hemoglobin 14.8, platelet count 254. Sodium 136, potassium 4.7, BUN 20, creatinine 0.7. 09/23/2019 Patient seen and examined this morning, feeling well, diuresed well again through the night last night. His repeat chest x-ray from this morning showed resolved congestive heart failure. Hemodynamically he was stable. Objective - Vital Signs Vital signs: Vital Signs Temp 97.7 F 09/23/19 07:52 Pulse 98 09/23/19 08:00 Resp 18 09/23/19 08:00 BP 113/88 09/23/19 07:52 Pulse Ox 95 09/23/19 03:48 Intake & Output 09/22/19 09/23/19 09/23/19 18:59 06:59 18:59 Intake Total 130 540 240 Output Total 400 Balance 130 140 240 Weight 160.5 kg 158.9 kg Intake: IV 10 saline 10 Oral 120 540 240 Output: Urine 400 Other: Voiding Method Toilet Toilet Toilet Urinal Urinal Urinal # Voids 0 - Exam PHYSICAL EXAMINATION: GENERAL: 39-year-old gentleman in no acute distress at the time of my examination HEENT: Head is atraumatic, normocephalic. Pupils equal, round. Sclera anicteric. Conjunctiva are clear. Mucous membranes of the mouth are moist. Neck is supple. There is elevated jugular venous pressure. No carotid bruit is heard. HEART EXAMINATION: Heart S1, S2 normal. No murmur or gallop heard. CHEST EXAMINATION: Lungs reveal improvement in air entry to the bases bilaterally ABDOMEN: Soft, obese, nontender. Bowel sounds are heard. No organomegaly noted. EXTREMITIES: 2+ peripheral pulses with trace -1+ evidence of peripheral edema and no calf tenderness noted. NEUROLOGIC patient is awake, alert and oriented 3 . - Labs CBC & Chem 7: 09/22/19 06:03 09/23/19 06:28 Labs: Abnormal Lab Results - Last 24 Hours (Table) 09/22/19 09/22/19 09/23/19 Range/Units 16:46 20:24 06:28 Sodium 136 L (137-145) mmol/L Glucose 242 H (74-99) mg/dL POC Glucose (mg/dL) 329 H 191 H (75-99) mg/dL 09/23/19 Range/Units 07:01 Sodium (137-145) mmol/L Glucose (74-99) mg/dL POC Glucose (mg/dL) 253 H (75-99) mg/dL Assessment and Plan Plan: Assessment and plan #1 chest pressure and heaviness with associated shortness of breath in a patient with recent coronary intervention. EKG shows a sinus tachycardia with nonspecific ST-T wave changes. Troponins 0.16, 0.12, downward trend from recent admission #2 systolic congestive heart failure acute on chronic #3 recent non-Q-wave myocardial infarction with stenting of the PLV branch of the RCA, mid RCA, and diagonal branch of the LAD #4 diabetes #5 hypertension #6 hyperlipidemia #7 ischemic cardio myopathy with prior Aicd #8 obstructive sleep apnea Plan from cardiology's perspective, patient may be able to be discharged home today. We'll make him a follow-up appointment in the office post discharge. The patient has also been advised to take his medications as prescribed. DNP note has been reviewed, I agree with a documented findings and plan of care. Patient was seen and examined.
--- NOTE | 2019-09-23 16:46 | PN ---
PROGRESS NOTE DATE OF SERVICE: 09/22/2019 CHIEF COMPLAINT: Chest pain, acute myocardial infarction, coronary artery disease, congestive heart failure and diabetes. HISTORY OF PRESENT ILLNESS: This gentleman is doing well and it was expected that he would go home, but Cardiology may want to keep him another day. PHYSICAL EXAMINATION: Chest is clear. Cardiac exam is normal. The abdomen is protuberant and soft. He is having no chest pain or shortness of breath. IMPRESSION: 1. Coronary artery disease. 2. Recent myocardial infarction. 3. Congestive heart failure. 4. Cardiomyopathy. 5. Obesity. 6. Uncontrolled diabetes. PLAN: Defer discharge if Cardiology so requests. MMODL / IJN: [id number] /
--- NOTE | 2019-09-23 16:49 | PN ---
PROGRESS NOTE DATE OF SERVICE: 09/23/2019 CHIEF COMPLAINT: Chest pain and shortness of breath. HISTORY OF PRESENT ILLNESS: This gentleman is doing well. He has had no shortness of breath, chest pain, etc. Discharge was held today by Cardiology for management of his heart failure. He is doing well today. PHYSICAL EXAM: Cardiac exam is normal. Chest is clear. Abdomen is protuberant, soft. IMPRESSION: 1. Unstable angina. 2. Recent OR. 3. Coronary artery disease. 4. Hypertension. 5. Uncontrolled diabetes. 6. Acute on chronic diastolic congestive heart failure. PLAN: He will probably go home today when and if he is cleared by Cardiology. MMODL / IJN: [id number] /
--- NOTE | 2019-09-24 11:46 | MISC ---
MISCELLANOUS REPORT QUERY: Systolic congestive heart failure, acute and chronic. Type 2 with hyperglycemia. MMODL / IJN: [id number] /
--- NOTE | 2019-09-25 08:57 | CDI ---
Documentation Clarification Form Date: 09/25/2019 08:21:20 AM From: Oralia Wesley RN, CCDS Admit Date: 09/19/2019 09:19:00 PM Patient Name: Shaun Roldan Visit Number: [id number] Discharge Date: 09/23/2019 11:50:00 AM ATTENTION: The Clinical Documentation Specialists (CDI) and [facility] Coding Staff appreciate your assistance in clarifying documentation. Please respond to the clarification below the line at the bottom and electronically sign. The CDI & [facility] Coding staff will review the response and follow-up if needed. Please note: Queries are made part of the Legal Health Record. If you have any questions, please contact the author of this message via ITS. Dr. Amrit Dan A recent non-ST elevation myocardial infarction is documented in the cardiology consult on 09/19 and subsequent progress notes. Timeline is important to accurately reflect the severity of illness. Request actual date of [id number] myocardial infarction. Patient History/Risk Factors: Coronary Artery Disease, Angina, Heart Failure, Diabetes mellitus, Hypertension, Myocardial Infarction Clinical Indicators: "39-year-old male who was just recently in hospital earlier this month with a non-ST elevation myocardial infarction. He underwent successful stenting of the PLV branch of the right coronary artery, successful stenting of the mid RCA, and subsequent staged intervention with successful stenting of the first diagonal branch of the LAD". He was discharged home on the 27 of this month. 09/18 Troponin: 0.161, 09/19 0.129, 0.128 09/18 EKG Results: Sinus tachycardia vent rate 104 Treatment: Heparin drip 09/18-09/20 Effient 10 mg po daily Toprol XL 75 mg po daily Cozaar 25 po daily Lipitor 80 mg po HS Aspirin 325 po daily In order to capture the severity of condition and necessary documentation specificity, please clarify date of last Acute Myocardial Infarction: NSTEMI on Unknown Other Condition, please specify (Last Revision: January 2017) MTDD
--- NOTE | 2019-10-02 23:11 | MISC ---
MISCELLANOUS REPORT QUERY: Unable to determine that. MMODL / IJN: [id number] /
--- NOTE | 2019-10-06 10:15 | CDI ---
Date: 10/06/2019 10:11:00 AM From: Oralia Wesley RN, CCDS Admit Date: 09/19/2019 09:19:00 PM Patient Name: Shaun Roldan Visit Number: [id number] Discharge Date: 09/23/2019 11:50:00 AM ATTENTION: The Clinical Documentation Specialists (CDI) and [facility] Coding Staff appreciate your assistance in clarifying documentation. Please respond to the clarification below the line at the bottom and electronically sign. The CDI & [facility] Coding staff will review the response and follow-up if needed. Please note: Queries are made part of the Legal Health Record. If you have any questions, please contact the author of this message via ITS. Dr. Damion Hernandez A recent non-ST elevation myocardial infarction is documented in the cardiology consult on 09/19 and subsequent progress notes. Timeline is important to accurately reflect the severity of illness. Request actual date of [id number] myocardial infarction. Patient History/Risk Factors: Coronary Artery Disease, Angina, Heart Failure, Diabetes mellitus, Hypertension, Myocardial Infarction Clinical Indicators: "39-year-old male who was just recently in hospital earlier this month with a non-ST elevation myocardial infarction. He underwent successful stenting of the PLV branch of the right coronary artery, successful stenting of the mid RCA, and subsequent staged intervention with successful stenting of the first diagonal branch of the LAD". He was discharged home on the 27 of this month. 09/18 Troponin: 0.161, 09/19 0.129, 0.128 09/18 EKG Results: Sinus tachycardia vent rate 104 Treatment: Heparin drip 09/18-09/20 Effient 10 mg po daily Toprol XL 75 mg po daily Cozaar 25 po daily Lipitor 80 mg po HS Aspirin 325 po daily In order to capture the severity of condition and necessary documentation specificity, please clarify date of last Acute Myocardial Infarction: NSTEMI on Unknown Other Condition, please specify (Last Revision: January 2017) This is a documentation clarification note.Patient presented to the hospital with an acute non-ST elevation myocardial infarction on 09/11/2019. DNP note has been reviewed, I agree with a documented findings and plan of care. Patient was seen and examined. Dictated By: Juana Maria Signed By: <Electronically signed by Juana HIGHTOWER> 10/06/19 1427 DD/ 1426 TD/TT:10/06/19 1426 MTDGarfield
--- NOTE | 2019-10-06 14:27 | P.PN ---
Progress Note - Text This is a documentation clarification note. Patient presented to the hospital with an acute non-ST elevation myocardial infarction on 09/11/2019. DNP note has been reviewed, I agree with a documented findings and plan of care. Patient was seen and examined.
== END 2019-09-23 11:50 | disposition home or self-care (01) | DRG 280 ==
LOC: EC 19:12 → 3SCARD 21:19
PROVIDERS: ADMIT Family Medicine; ATTEND Family Medicine
DX: I24.9 Acute ischemic heart disease, unspecified (principal); I50.43 Acute on chronic combined systolic (congestive) and diastolic (congestive) heart failure; I21.4 Non-ST elevation (NSTEMI) myocardial infarction; Z68.42 Body mass index [BMI] 45.0-49.9, adult; I25.110 Atherosclerotic heart disease of native coronary artery with unstable angina pectoris; I25.5 Ischemic cardiomyopathy; I11.0 Hypertensive heart disease with heart failure; E11.42 Type 2 diabetes mellitus with diabetic polyneuropathy; E11.65 Type 2 diabetes mellitus with hyperglycemia; E66.9 Obesity, unspecified; E78.5 Hyperlipidemia, unspecified; G47.33 Obstructive sleep apnea (adult) (pediatric); F41.9 Anxiety disorder, unspecified; G43.909 Migraine, unspecified, not intractable, without status migrainosus; G89.29 Other chronic pain; M54.9 Dorsalgia, unspecified; Z11.59 Encounter for screening for other viral diseases; T45.526A Underdosing of antithrombotic drugs, initial encounter; T44.7X6A Underdosing of beta-adrenoreceptor antagonists, initial encounter; Z91.120 Patient's intentional underdosing of medication regimen due to financial hardship; Z79.02 Long term (current) use of antithrombotics/antiplatelets; Z79.4 Long term (current) use of insulin; Z79.82 Long term (current) use of aspirin; Z79.899 Other long term (current) drug therapy; Z87.891 Personal history of nicotine dependence; Z95.5 Presence of coronary angioplasty implant and graft; Z95.810 Presence of automatic (implantable) cardiac defibrillator; Z88.0 Allergy status to penicillin; Z82.49 Family history of ischemic heart disease and other diseases of the circulatory system; Z83.79 Family history of other diseases of the digestive system
CPT/HCPCS: 36415; 71046; 80048; 80053; 80061; 83036; 83735; 83880; 84484; 85025; 85610; 85730; 93005; 96361; 96374; 99285

== ENCOUNTER 2019-10-06 16:51 | Emergency (ER) | payer OTHER ==
[2019-10-06 16:54] VITALS: BP 125/88; PULSE 104; RESP 16; TEMP 98.3
--- NOTE | 2019-10-06 17:13 | ED ---
General Adult HPI - General Source: patient, RN notes reviewed, old records reviewed Mode of arrival: wheelchair Limitations: no limitations <Meagan Carpio - Last Filed: 10/09/19 16:38> <Debi Higgins - Last Filed: 10/12/19 01:08> - General Chief complaint: Extremity Injury, Lower Stated complaint: Foot pain Time Seen by Provider: 10/06/19 16:55 - History of Present Illness Initial comments: Total Patient is a 39-year-old male presents to ED today for complaints of left foot injury. Patient reports he was walking heard and felt a pop in the left foot. Patient states that he noticed some bruising that occurred over the medial aspect of the foot. (Meagan Carpio) - Related Data Home Medications Medication Instructions Recorded Confirmed Aspirin EC [Ecotrin Low Dose] 81 mg PO DAILY 10/13/18 09/19/19 Losartan [Cozaar] 25 mg PO DAILY 03/11/19 09/19/19 Insulin Glargine,Hum.rec.anlog 100 unit SQ DAILY 04/05/19 09/19/19 [Basaglar Kwikpen U-100] metFORMIN HCL 1,000 mg PO DAILY 06/14/19 09/19/19 Ibuprofen 800 mg PO QID PRN 09/11/19 09/19/19 Furosemide [Lasix] 40 mg PO BID 09/19/19 09/19/19 Previous Rx's Medication Instructions Recorded Atorvastatin [Lipitor] 80 mg PO HS #90 tab 10/16/18 Spironolactone [Aldactone] 25 mg PO DAILY #90 tab 10/16/18 Metoprolol Succinate (ER) [Toprol 75 mg PO DAILY #30 tab.er.24h 09/16/19 XL] Prasugrel [Effient] 10 mg PO DAILY #30 tab 09/16/19 INSULIN ASPART (NovoLOG) [NovoLOG 0 unit SQ ACHS vial 09/21/19 (formulary)] Ibuprofen [Motrin] 600 mg PO Q8HR PRN #30 tab 10/06/19 Allergies Allergy/AdvReac Type Severity Reaction Status Date / Time Penicillins Allergy Unknown Verified 10/06/19 16:54 Childhood Review of Systems ROS Other: All systems not noted in ROS Statement are negative. <Meagan Carpio - Last Filed: 10/09/19 16:38> ROS Other: All systems not noted in ROS Statement are negative. <Debi Higgins - Last Filed: 10/12/19 01:08> ROS Statement: Those systems with pertinent positive or pertinent negative responses have been documented in the HPI. Past Medical History Past Medical History: Coronary Artery Disease (CAD), Chest Pain / Angina, Heart Failure, Diabetes Mellitus, Hyperlipidemia, Hypertension, Myocardial Infarction ([place]), Sleep Apnea/CPAP/BIPAP, Syncope Additional Past Medical History / Comment(s): Cardiiomyopathy with AICD, IDDM type II, neuropathy bilateral feet, SP with Cpap use, migraines, chronic back pain. Last Myocardial Infarction Date:: 2015 History of Any Multi-Drug Resistant Organisms: None Reported Past Surgical History: AICD, Heart Catheterization, Heart Catheterization With Stent Additional Past Surgical History / Comment(s): 10/27/12 AICD, DFTs, PCI with stent Past Anesthesia/Blood Transfusion Reactions: No Reported Reaction Date of Last Stent Placement:: 02/03/16 Type of Cardiac Device: AICD Device Placement Date:: 2012 Past Psychological History: Anxiety Smoking Status: Former smoker Past Alcohol Use History: None Reported Past Drug Use History: None Reported - Past Family History Mother Family Medical History: No Reported History Additional Family Medical History / Comment(s): Mother is healthy Brother(s) Family Medical History: Myocardial Infarction ([place]) Additional Family Medical History / Comment(s): Brother of a [place] at the age of 35yrs. Father Family Medical History: Liver Disease Additional Family Medical History / Comment(s): Father when pt was 19 yrs old from liver disease. He was an alcoholic. <Meagan Carpio - Last Filed: 10/09/19 16:38> General Exam Limitations: no limitations General appearance: alert, in no apparent distress Head exam: Present: atraumatic, normocephalic, normal inspection Eye exam: Present: normal appearance, PERRL, EOMI. Absent: scleral icterus, conjunctival injection, periorbital swelling Respiratory exam: Present: normal lung sounds bilaterally. Absent: respiratory distress, wheezes, rales, rhonchi, stridor Cardiovascular Exam: Present: regular rate, normal rhythm, normal heart sounds. Absent: systolic murmur, diastolic murmur, rubs, gallop, clicks GI/Abdominal exam: Present: soft, normal bowel sounds. Absent: distended, tenderness, guarding, rebound, rigid Left Knee exam: Present: normal inspection, full ROM Lower Leg exam: Present: normal inspection, full ROM Ankle exam: Present: normal inspection, full ROM (medial malleolus ), tenderness Foot/Toe exam: Present: full ROM, tenderness, ecchymosis (over medial plantar foot in arch). Absent: normal inspection <Meagan Carpio - Last Filed: 10/09/19 16:38> - General Exam Comments Initial Comments: 39 year old male no acute distress. (Meagan Carpio) Course Vital Signs 10/06/19 16:51 Temperature 98.3 F Pulse Rate 104 H Respiratory 16 Rate Blood Pressure 125/88 O2 Sat by Pulse 97 Oximetry Procedures - Orthopedic Splinting/Casting Injury #1 Side: left Lower Extremity Injury Location: foot Lower Extremity Immobilizer: AirCast, Luis wrap <Meagan Carpio - Last Filed: 10/09/19 16:38> Medical Decision Making - Radiology Data Radiology results: report reviewed <Meagan Carpio - Last Filed: 10/09/19 16:38> <Debi Higgins - Last Filed: 10/12/19 01:08> - Medical Decision Making 39 year old male with pop in left foot while walking and presents with bruising over medial foot. PAtient at this time has normal foot xray. Given LUIS wrap for sprain and swelling and bruising. Advised PCP follow up and ortho follow up. Patient has crutches. (Meagan Carpio) I was available for consultation in the emergency department. The history and physical exam were done by the midlevel provider. I was consulted for this patients care. I reviewed the case with the midlevel provider and based on their presentation of the patient, I agree with the assessment, medical decision making and plan of care as documented. Chart was dictated using [employer] dictation software. Attempts were made to correct any dictation errors however some typographical errors may persist. Patient was seen during a national state of emergency due to the Covid-19 pandemic. (Debi Higgins) - Radiology Data Normal 3 view foot. (Meagan Carpio) Disposition Is patient prescribed a controlled substance at d/c from ED?: No Time of Disposition: 17:56 <Meagan Carpio - Last Filed: 10/09/19 16:38> <GiselaDebi Aida - Last Filed: 10/12/19 01:08> Clinical Impression: Foot sprain, Foot contusion Disposition: HOME SELF-CARE Condition: Good Instructions (If sedation given, give patient instructions): Foot Sprain (ED) Additional Instructions: Rest ice and elevate the foot. Follow-up with orthopedic if symptoms continue to persist after a week. Take anti-inflammatory medication as prescribed. Prescriptions: Ibuprofen [Motrin] 600 mg PO Q8HR PRN #30 tab PRN Reason: Pain Referrals: Amrit Dan MD [Primary Care Provider] - 1-2 days Juan Mary MD [STAFF PHYSICIAN] - 1-2 days
--- NOTE | 2019-10-06 17:33 | XR ---
EXAMINATION TYPE: XR foot complete LT DATE OF EXAM: 10/06/2019 COMPARISON: None HISTORY: Popping sensation, bruising medial plantar side TECHNIQUE: Three-view left foot FINDINGS: No acute fractures are evident. Joint spaces appear preserved. Alignment is normal. Erick s tendon calcaneal heel spur is present. Soft tissues are normal. Follow-up exams can be performed 7-10 days from acute trauma for continued pain. IMPRESSION: 1. Normal three-view left foot.
== END 2019-10-06 18:20 | disposition home or self-care (01) ==
LOC: EC 16:51
DX: S93.602A Unspecified sprain of left foot, initial encounter (principal); I25.119 Atherosclerotic heart disease of native coronary artery with unspecified angina pectoris; I11.0 Hypertensive heart disease with heart failure; I50.9 Heart failure, unspecified; I25.2 Old myocardial infarction; I43 Cardiomyopathy in diseases classified elsewhere; G47.33 Obstructive sleep apnea (adult) (pediatric); E11.42 Type 2 diabetes mellitus with diabetic polyneuropathy; Z79.82 Long term (current) use of aspirin; Z79.4 Long term (current) use of insulin; Z79.899 Other long term (current) drug therapy; Z99.89 Dependence on other enabling machines and devices; Z95.810 Presence of automatic (implantable) cardiac defibrillator; Z95.5 Presence of coronary angioplasty implant and graft; Z87.891 Personal history of nicotine dependence; Z88.0 Allergy status to penicillin; X58.XXXA Exposure to other specified factors, initial encounter; Y93.01 Activity, walking, marching and hiking
CPT/HCPCS: 99284

== ENCOUNTER 2019-11-14 02:09 | Emergency (ER) | payer OTHER ==
[2019-11-14] MEDS ORDERED: NITROGLYCERIN OINT 1 INCH/GM PACKET TOPICAL STA (02:36)
[2019-11-14 02:52] LABS: Basophils # (A) 0.1 k/uL (0-0.2); Basophils % (A) 1 %; Eosinophils # (A) 0.2 k/uL (0-0.7); Eosinophils % (A) 3 %; HGB 17.3 gm/dL (13.0-17.5); Lymphocytes # (A) 2.3 k/uL (1.0-4.8); Lymphocytes % (A) 27 %; MCH 27.3 pg (25.0-35.0); MCHC 33.8 g/dL (31.0-37.0); Monocytes # (A) 0.5 k/uL (0-1.0); Monocytes % (A) 6 %; Neutrophils # (A) 5.1 k/uL (1.3-7.7); Neutrophils % (A) 60 %; Platelet Count 224 k/uL (150-450); RBC 6.32 m/uL (4.30-5.90); RDW 15.6 % (11.5-15.5); WBC 8.4 k/uL (3.8-10.6)
[2019-11-14 02:56] LABS: MCV 80.7 fL (80.0-100.0)
[2019-11-14 03:02] LABS: ALT 15 U/L (4-49); AST 18 U/L (17-59); African American GFR (CKD) >90 (>60 ml/min/1.73 sqM); Albumin 3.9 g/dL (3.5-5.0); Alkaline Phosphatase 137 U/L (38-126); Anion Gap 9 mmol/L; Blood Urea Nitrogen 16 mg/dL (9-20); Calcium 9.1 mg/dL (8.4-10.2); Carbon Dioxide 22 mmol/L (22-30); Chloride 103 mmol/L (98-107); Glucose 332 mg/dL (74-99); Magnesium 1.7 mg/dL (1.6-2.3); Non-African American GFR(CKD) >90 (>60 ml/min/1.73 sqM); Sodium 134 mmol/L (137-145); Total Protein 6.8 g/dL (6.3-8.2)
--- NOTE | 2019-11-14 03:04 | XR ---
EXAMINATION TYPE: XR chest 2V DATE OF EXAM: 11/14/2019 COMPARISON: September 22, 2019 HISTORY: Difficulty breathing TECHNIQUE: FINDINGS: Heart is normal. Lungs are clear of infiltrate. There is no heart failure. There is a left axillary pacemaker. There are chest leads. Costophrenic angles are clear. The bony thorax appears nor mal. IMPRESSION: Normal chest. Heart appears smaller than old exam.
[2019-11-14 03:07] LABS: D-Dimer 0.38 mg/L FEU (<0.60); INR 0.9 (<1.2); Partial Thromboplastin Time 23.1 sec (22.0-30.0); Prothrombin Time 9.8 sec (9.0-12.0)
[2019-11-14] MEDS ORDERED: INSULIN REGULAR 100 UNIT/ML VIAL SQ STA (03:41)
[2019-11-14] MEDS ORDERED: CLINDAMYCIN 150 MG CAP PO STA (04:35)
[2019-11-14] MEDS ORDERED: SULFAMETHOX-TMP 800-160MG 1 EACH TAB PO STA (04:36)
--- NOTE | 2019-11-14 04:36 | ED ---
General Adult HPI - General Chief complaint: Shortness of Breath Stated complaint: DEANNA, abdominal pain Time Seen by Provider: 11/14/19 02:28 Source: patient Mode of arrival: ambulatory Limitations: no limitations - History of Present Illness Initial comments: This patient has a 39-year-old man who presents with 2 complaints. The patient has noticed that his left leg has been red and sore that is been going on for about a day. The patient then stated that tonight he was feeling short of breath and felt he should be evaluated for that as well. He states that it feels like his chest is tight and that he can't take a deep breath. Patient denies any productive cough or hemoptysis. No fever or chills. No history of DVT or PE. -: hour(s) Location: chest, left, lower extremity Radiation: non-radiation Quality: dull Consistency: constant Improves with: none Worsens with: none - Related Data Home Medications Medication Instructions Recorded Confirmed Aspirin EC [Ecotrin Low Dose] 81 mg PO DAILY 10/13/18 09/19/19 Losartan [Cozaar] 25 mg PO DAILY 03/11/19 09/19/19 Insulin Glargine,Hum.rec.anlog 100 unit SQ DAILY 04/05/19 09/19/19 [Basaglar Kwikpen U-100] metFORMIN HCL 1,000 mg PO DAILY 06/14/19 09/19/19 Ibuprofen 800 mg PO QID PRN 09/11/19 09/19/19 Furosemide [Lasix] 40 mg PO BID 09/19/19 09/19/19 Previous Rx's Medication Instructions Recorded Atorvastatin [Lipitor] 80 mg PO HS #90 tab 10/16/18 Spironolactone [Aldactone] 25 mg PO DAILY #90 tab 10/16/18 Metoprolol Succinate (ER) [Toprol 75 mg PO DAILY #30 tab.er.24h 09/16/19 XL] Prasugrel [Effient] 10 mg PO DAILY #30 tab 09/16/19 INSULIN ASPART (NovoLOG) [NovoLOG 0 unit SQ ACHS vial 09/21/19 (formulary)] Ibuprofen [Motrin] 600 mg PO Q8HR PRN #30 tab 10/06/19 Sulfamethox-Tmp 800-160Mg [Bactrim 1 each PO Q12HR #20 tab 11/14/19 Ds] Allergies Allergy/AdvReac Type Severity Reaction Status Date / Time Penicillins Allergy Unknown Verified 11/14/19 02:19 Childhood Review of Systems ROS Statement: Those systems with pertinent positive or pertinent negative responses have been documented in the HPI. ROS Other: All systems not noted in ROS Statement are negative. Constitutional: Denies: fever, chills, weakness Respiratory: Reports: as per HPI, dyspnea, wheezes. Denies: cough, hemoptysis Cardiovascular: Denies: chest pain, palpitations, orthopnea, edema, syncope Gastrointestinal: Denies: abdominal pain, vomiting, diarrhea Genitourinary: Denies: dysuria, hematuria Musculoskeletal: Reports: myalgia (Left leg). Denies: back pain Skin: Reports: change in color (Left leg). Denies: rash Neurological: Denies: headache, weakness, numbness Past Medical History Past Medical History: Coronary Artery Disease (CAD), Chest Pain / Angina, Heart Failure, Diabetes Mellitus, Hyperlipidemia, Hypertension, Myocardial Infarction ([place]), Sleep Apnea/CPAP/BIPAP, Syncope Additional Past Medical History / Comment(s): Cardiiomyopathy with AICD, IDDM type II, neuropathy bilateral feet, SP with Cpap use, migraines, chronic back pain. Last Myocardial Infarction Date:: 2015 History of Any Multi-Drug Resistant Organisms: None Reported Past Surgical History: AICD, Heart Catheterization, Heart Catheterization With Stent Additional Past Surgical History / Comment(s): 10/27/12 AICD, DFTs, PCI with stent Past Anesthesia/Blood Transfusion Reactions: No Reported Reaction Date of Last Stent Placement:: 02/03/16 Type of Cardiac Device: AICD Device Placement Date:: 2012 Past Psychological History: Anxiety Smoking Status: Current every day smoker Past Alcohol Use History: None Reported Past Drug Use History: None Reported - Past Family History Mother Family Medical History: No Reported History Additional Family Medical History / Comment(s): Mother is healthy Brother(s) Family Medical History: Myocardial Infarction ([place]) Additional Family Medical History / Comment(s): Brother of a [place] at the age of 35yrs. Father Family Medical History: Liver Disease Additional Family Medical History / Comment(s): Father when pt was 19 yrs old from liver disease. He was an alcoholic. General Exam Limitations: no limitations General appearance: alert, in no apparent distress Head exam: Present: atraumatic, normocephalic Eye exam: Present: normal appearance. Absent: scleral icterus, conjunctival injection ENT exam: Present: normal oropharynx Neck exam: Present: normal inspection Respiratory exam: Present: wheezes. Absent: respiratory distress, rales, rhonchi, stridor, chest wall tenderness, accessory muscle use, decreased breath sounds, prolonged expiratory Cardiovascular Exam: Present: regular rate, normal rhythm, normal heart sounds. Absent: systolic murmur, diastolic murmur, rubs, gallop GI/Abdominal exam: Present: soft. Absent: distended, tenderness, guarding, rebound, rigid, mass Extremities exam: Present: full ROM, normal capillary refill, other (The patient does have erythema and warmth as well as little bit of swelling of the lower extremity consistent with cellulitis. No palpable cord or Homans sign). Absent: tenderness, joint swelling Back exam: Present: normal inspection. Absent: CVA tenderness (R), CVA tenderness (L) Neurological exam: Present: alert Skin exam: Present: warm, dry, intact, normal color. Absent: rash Course Vital Signs 11/14/19 11/14/19 11/14/19 02:14 02:35 03:54 Temperature 98.1 F 97.5 F L Pulse Rate 102 H 102 H 94 Respiratory 18 18 18 Rate Blood Pressure 154/106 134/86 128/85 O2 Sat by Pulse 97 98 95 Oximetry 11/14/19 04:56 Temperature 98.1 F Pulse Rate 86 Respiratory 16 Rate Blood Pressure 120/75 O2 Sat by Pulse 96 Oximetry Medical Decision Making - Medical Decision Making Patient is 39-year-old man presenting with some dyspnea and lower extremity pain and swelling. The patient exam does reveal cellulitis of the lower extremity. Patient started on antibiotics here. Patient also somewhat hypertensive on arrival and did receive nitroglycerin for this. The patient is feeling better following treatment here and his dyspnea has resolved. The workup does not reveal evidence of DVT or PE, as the d-dimer is negative. Discussed further treatment and follow-up including returning should he have a recurrence of dyspnea he developed any other chest symptoms or be worse in anyway - Lab Data Result diagrams: 11/14/19 02:38 11/14/19 02:38 Lab Results 07/25/20 07/25/20 07/25/20 Range/Units 02:38 02:38 02:38 WBC 8.4 (3.8-10.6) k/uL RBC 6.32 H (4.30-5.90) m/uL Hgb 17.3 (13.0-17.5) gm/dL Hct 51.0 (39.0-53.0) % MCV 80.7 D (80.0-100.0) fL MCH 27.3 (25.0-35.0) pg MCHC 33.8 (31.0-37.0) g/dL RDW 15.6 H (11.5-15.5) % Plt Count 224 (150-450) k/uL Neutrophils % 60 % Lymphocytes % 27 % Monocytes % 6 % Eosinophils % 3 % Basophils % 1 % Neutrophils # 5.1 (1.3-7.7) k/uL Lymphocytes # 2.3 (1.0-4.8) k/uL Monocytes # 0.5 (0-1.0) k/uL Eosinophils # 0.2 (0-0.7) k/uL Basophils # 0.1 (0-0.2) k/uL PT 9.8 (9.0-12.0) sec INR 0.9 (<1.2) APTT 23.1 (22.0-30.0) sec D-Dimer 0.38 (<0.60) mg/L FEU Sodium 134 L (137-145) mmol/L Potassium 4.0 (3.5-5.1) mmol/L Chloride 103 (98-107) mmol/L Carbon Dioxide 22 (22-30) mmol/L Anion Gap 9 mmol/L BUN 16 (9-20) mg/dL Creatinine 0.67 (0.66-1.25) mg/dL Est GFR (CKD-EPI)AfAm >90 (>60 ml/min/1.73 sqM) Est GFR (CKD-EPI)NonAf >90 (>60 ml/min/1.73 sqM) Glucose 332 H (74-99) mg/dL POC Glucose (mg/dL) (75-99) mg/dL POC Glu Electric Bath Attendant ID Calcium 9.1 (8.4-10.2) mg/dL Magnesium 1.7 (1.6-2.3) mg/dL Total Bilirubin 1.0 (0.2-1.3) mg/dL AST 18 (17-59) U/L ALT 15 (4-49) U/L Alkaline Phosphatase 137 H (38-126) U/L Troponin I (0.000-0.034) ng/mL NT-Pro-B Natriuret Pep pg/mL Total Protein 6.8 (6.3-8.2) g/dL Albumin 3.9 (3.5-5.0) g/dL 11/14/19 11/14/19 11/14/19 Range/Units 02:38 02:38 04:47 WBC (3.8-10.6) k/uL RBC (4.30-5.90) m/uL Hgb (13.0-17.5) gm/dL Hct (39.0-53.0) % MCV (80.0-100.0) fL MCH (25.0-35.0) pg MCHC (31.0-37.0) g/dL RDW (11.5-15.5) % Plt Count (150-450) k/uL Neutrophils % % Lymphocytes % % Monocytes % % Eosinophils % % Basophils % % Neutrophils # (1.3-7.7) k/uL Lymphocytes # (1.0-4.8) k/uL Monocytes # (0-1.0) k/uL Eosinophils # (0-0.7) k/uL Basophils # (0-0.2) k/uL PT (9.0-12.0) sec INR (<1.2) APTT (22.0-30.0) sec D-Dimer (<0.60) mg/L FEU Sodium (137-145) mmol/L Potassium (3.5-5.1) mmol/L Chloride (98-107) mmol/L Carbon Dioxide (22-30) mmol/L Anion Gap mmol/L BUN (9-20) mg/dL Creatinine (0.66-1.25) mg/dL Est GFR (CKD-EPI)AfAm (>60 ml/min/1.73 sqM) Est GFR (CKD-EPI)NonAf (>60 ml/min/1.73 sqM) Glucose (74-99) mg/dL POC Glucose (mg/dL) 279 H (75-99) mg/dL POC Glu Electric Bath Attendant ID Heft, Dorothy Calcium (8.4-10.2) mg/dL Magnesium (1.6-2.3) mg/dL Total Bilirubin (0.2-1.3) mg/dL AST (17-59) U/L ALT (4-49) U/L Alkaline Phosphatase (38-126) U/L Troponin I <0.012 (0.000-0.034) ng/mL NT-Pro-B Natriuret Pep 847 pg/mL Total Protein (6.3-8.2) g/dL Albumin (3.5-5.0) g/dL Disposition Clinical Impression: Hyperglycemia, Cellulitis Disposition: HOME SELF-CARE Condition: Good Instructions (If sedation given, give patient instructions): Cellulitis (ED) Prescriptions: Sulfamethox-Tmp 800-160Mg [Bactrim Ds] 1 each PO Q12HR #20 tab Is patient prescribed a controlled substance at d/c from ED?: No Referrals: Amrit Dan MD [Primary Care Provider] - 1-2 days
[2019-11-14 04:49] LABS: Glucose,Whole Blood 279 mg/dL (75-99)
[2019-11-14 04:57] VITALS: BP 120/75; PULSE 86; RESP 16; TEMP 98.1
== END 2019-11-14 04:57 | disposition home or self-care (01) ==
LOC: EC 02:09
DX: L03.116 Cellulitis of left lower limb (principal); I25.110 Atherosclerotic heart disease of native coronary artery with unstable angina pectoris; I11.0 Hypertensive heart disease with heart failure; I50.9 Heart failure, unspecified; E11.40 Type 2 diabetes mellitus with diabetic neuropathy, unspecified; G89.29 Other chronic pain; G47.33 Obstructive sleep apnea (adult) (pediatric); M54.9 Dorsalgia, unspecified; I25.2 Old myocardial infarction; F17.200 Nicotine dependence, unspecified, uncomplicated; Z79.899 Other long term (current) drug therapy; Z79.82 Long term (current) use of aspirin; Z79.84 Long term (current) use of oral hypoglycemic drugs; Z79.4 Long term (current) use of insulin; Z88.0 Allergy status to penicillin; Z95.5 Presence of coronary angioplasty implant and graft; Z99.89 Dependence on other enabling machines and devices; Z95.810 Presence of automatic (implantable) cardiac defibrillator
CPT/HCPCS: 36415; 71046; 80053; 83735; 83880; 84484; 85025; 85379; 85610; 85730; 93005; 99285

== ENCOUNTER 2019-12-05 22:12 | Emergency (ER) | payer OTHER ==
[2019-12-05 22:20] VITALS: BP 135/91; PULSE 106; RESP 18; TEMP 98.4
--- NOTE | 2019-12-05 22:34 | ED ---
Lower Extremity Injury HPI - General Chief Complaint: Extremity Injury, Lower Stated Complaint: L Foot Injury Time Seen by Provider: 12/05/19 22:23 Source: patient Mode of arrival: ambulatory Limitations: no limitations - History of Present Illness Initial Comments: Shaun is a 39-year-old male who presents the ER today for evaluation of left ankle pain. Patient reports he was walking to this ER to the dark he didn't realize his dog had dug a hole, he reports this foot wound to the whole his ankle inverted and he felt a pop. This happened around 6 PM this evening, he's been trying to ice and elevate the foot with known improvement. He states that when he walks he hears clicking in the ankle which prompted him to the ER for evaluation. She has a history of sprains to this ankle but no fractures or surgeries in the past. - Related Data Home Medications Medication Instructions Recorded Confirmed Aspirin EC [Ecotrin Low Dose] 81 mg PO DAILY 10/13/18 09/19/19 Losartan [Cozaar] 25 mg PO DAILY 03/11/19 09/19/19 Insulin Glargine,Hum.rec.anlog 100 unit SQ DAILY 04/05/19 09/19/19 [Basaglar Kwikpen U-100] metFORMIN HCL 1,000 mg PO DAILY 06/14/19 09/19/19 Ibuprofen 800 mg PO QID PRN 09/11/19 09/19/19 Furosemide [Lasix] 40 mg PO BID 09/19/19 09/19/19 Previous Rx's Medication Instructions Recorded Atorvastatin [Lipitor] 80 mg PO HS #90 tab 10/16/18 Spironolactone [Aldactone] 25 mg PO DAILY #90 tab 10/16/18 Metoprolol Succinate (ER) [Toprol 75 mg PO DAILY #30 tab.er.24h 09/16/19 XL] Prasugrel [Effient] 10 mg PO DAILY #30 tab 09/16/19 INSULIN ASPART (NovoLOG) [NovoLOG 0 unit SQ ACHS vial 09/21/19 (formulary)] Ibuprofen [Motrin] 600 mg PO Q8HR PRN #30 tab 10/06/19 Sulfamethox-Tmp 800-160Mg [Bactrim 1 each PO Q12HR #20 tab 11/14/19 Ds] Allergies Allergy/AdvReac Type Severity Reaction Status Date / Time Penicillins Allergy Unknown Verified 12/05/19 22:20 Childhood Review of Systems ROS Statement: Those systems with pertinent positive or pertinent negative responses have been documented in the HPI. ROS Other: All systems not noted in ROS Statement are negative. Past Medical History Past Medical History: Coronary Artery Disease (CAD), Chest Pain / Angina, Heart Failure, Diabetes Mellitus, Hyperlipidemia, Hypertension, Myocardial Infarction ([place]), Sleep Apnea/CPAP/BIPAP, Syncope Additional Past Medical History / Comment(s): Cardiiomyopathy with AICD, IDDM type II, neuropathy bilateral feet, SP with Cpap use, migraines, chronic back pain. Last Myocardial Infarction Date:: 2015 History of Any Multi-Drug Resistant Organisms: None Reported Past Surgical History: AICD, Heart Catheterization, Heart Catheterization With Stent Additional Past Surgical History / Comment(s): 10/27/12 AICD, DFTs, PCI with stent Past Anesthesia/Blood Transfusion Reactions: No Reported Reaction Date of Last Stent Placement:: 02/03/16 Type of Cardiac Device: AICD Device Placement Date:: 2012 Past Psychological History: Anxiety, Depression Smoking Status: Former smoker Past Alcohol Use History: None Reported Past Drug Use History: None Reported - Past Family History Mother Family Medical History: No Reported History Additional Family Medical History / Comment(s): Mother is healthy Brother(s) Family Medical History: Myocardial Infarction ([place]) Additional Family Medical History / Comment(s): Brother of a [place] at the age of 35yrs. Father Family Medical History: Liver Disease Additional Family Medical History / Comment(s): Father when pt was 19 yrs old from liver disease. He was an alcoholic. General Exam - General Exam Comments Initial Comments: Physical Exam GENERAL: Patient is well-developed and well-nourished. Patient is nontoxic and well-hydrated and is in no distress. HENT: Normocephalic, Atraumatic. EYES: PERRL, EOMI PULMONARY: Unlabored respirations. CARDIOVASCULAR: RRR Warm and well perfused extremities ABDOMEN: Non-distended SKIN: No rashes or bruising : Deferred NEUROLOGIC: Alert and oriented Normal speech Antalgic gait MUSCULOSKELETAL: Moving all extremities Decreased range of motion of left ankle secondary to pain, swelling noted left ankle, tenderness on the ATF and on the lateral fifth metatarsal PSYCHIATRIC: No SI/HI Limitations: no limitations Course Vital Signs 12/05/19 22:16 Temperature 98.4 F Pulse Rate 106 H Respiratory 18 Rate Blood Pressure 135/91 O2 Sat by Pulse 97 Oximetry Procedures - Orthopedic Splinting/Casting Injury #1 Side: left Lower Extremity Injury Location: ankle Lower Extremity Immobilizer: AirCast Additional Comments: Patient neurovascularly intact after splinting, moving toes, Cap Refill of the foot less than 2 seconds Medical Decision Making - Medical Decision Making Patient was seen and evaluated history is obtained from patient patient had an inversion injury of the left ankle x-rays were obtained which revealed no fractures however there is likely sprain, patient was placed in Aircast he remained neurovascularly intact after casting. Supportive care was discussed need for follow-up and repeat imaging was discussed, patient was discharged home in stable condition Disposition Clinical Impression: Left ankle sprain Disposition: HOME SELF-CARE Condition: Stable Instructions (If sedation given, give patient instructions): Ankle Sprain (ED) Additional Instructions: As we discussed, rest, ice, Luis wrap and elevation. Wear the support splint whenever you're walking. For any persistent pain following with her primary care physician for repeat x-rays. If he develop any worsening pain in the ankle, discoloration of the foot or development of any new or concerning symptoms return to the ER for reevaluation. Is patient prescribed a controlled substance at d/c from ED?: No Referrals: Amrit Dan MD [Primary Care Provider] - 1-2 days
--- NOTE | 2019-12-05 22:50 | XR ---
EXAMINATION TYPE: XR foot complete LT DATE OF EXAM: 12/05/2019 COMPARISON: NONE HISTORY: Foot pain TECHNIQUE: 3 views FINDINGS: Metatarsals appear intact. The toes appear intact. I see no fracture nor dislocation. There is an Achilles calcaneal spur. IMPRESSION: Calcaneal spurring. No fracture seen.
--- NOTE | 2019-12-05 22:51 | XR ---
EXAMINATION TYPE: XR ankle complete LT DATE OF EXAM: 12/05/2019 COMPARISON: NONE HISTORY: Pain TECHNIQUE: 3 views FINDINGS: Ankle mortise is anatomic. I see no fracture nor dislocation. Joint spaces are normal. Ther e is an Achilles calcaneal spur. IMPRESSION: Calcaneal spurring. No fracture.
== END 2019-12-05 23:15 | disposition home or self-care (01) ==
LOC: EC 22:12
DX: S93.402A Sprain of unspecified ligament of left ankle, initial encounter (principal); I11.0 Hypertensive heart disease with heart failure; G47.33 Obstructive sleep apnea (adult) (pediatric); E11.40 Type 2 diabetes mellitus with diabetic neuropathy, unspecified; I25.110 Atherosclerotic heart disease of native coronary artery with unstable angina pectoris; G89.29 Other chronic pain; M54.9 Dorsalgia, unspecified; I50.9 Heart failure, unspecified; I25.2 Old myocardial infarction; Z79.899 Other long term (current) drug therapy; Z79.84 Long term (current) use of oral hypoglycemic drugs; Z79.4 Long term (current) use of insulin; Z79.82 Long term (current) use of aspirin; Z88.0 Allergy status to penicillin; Z99.89 Dependence on other enabling machines and devices; Z87.891 Personal history of nicotine dependence; W17.2XXA Fall into hole, initial encounter; Y93.01 Activity, walking, marching and hiking
CPT/HCPCS: 73610; 73630; 99283; 29515; L4350

== ENCOUNTER 2020-03-31 17:15 | Observation (INO) | payer OTHER ==
[2020-03-31] MEDS ORDERED: HEPARIN SODIUM,PORCINE 5,000 UNIT/ML 1 ML VIAL IV STA (17:24)
[2020-03-31] MEDS ORDERED: HEPARIN SOD,PORK IN 0.45% NACL 25,000 UNIT in 0.45% NACL 1 250ML.BAG IV SCH (17:30)
[2020-03-31 17:39] LABS: Basophils # (A) 0.1 k/uL (0-0.2); Basophils % (A) 1 %; Eosinophils # (A) 0.2 k/uL (0-0.7); Eosinophils % (A) 2 %; Lymphocytes # (A) 2.2 k/uL (1.0-4.8); Lymphocytes % (A) 23 %; MCH 29.1 pg (25.0-35.0); MCHC 33.9 g/dL (31.0-37.0); MCV 85.7 fL (80.0-100.0); Mean Platelet Volume 7.3; Monocytes # (A) 0.6 k/uL (0-1.0); Monocytes % (A) 7 %; Neutrophils # (A) 6.2 k/uL (1.3-7.7); Neutrophils % (A) 65 %; Platelet Count 205 k/uL (150-450); RBC 5.48 m/uL (4.30-5.90); RDW 13.3 % (11.5-15.5); WBC 9.5 k/uL (3.8-10.6)
--- NOTE | 2020-03-31 17:40 | ED ---
General Adult HPI - General Chief complaint: Chest Pain Stated complaint: Chest pain Time Seen by Provider: 03/31/20 17:17 Source: patient, EMS Mode of arrival: EMS Limitations: no limitations - History of Present Illness Initial comments: Dictation was produced using [employer] dictation software. please excuse any grammatical, word or spelling errors. This patient was cared for during a federal and state declared state of emergency secondary to Covid 19 Chief Complaint: 40-year-old male with extensive cardiac disease presents today with chest pain. History of Present Illness: A 40-year-old male is brought in by EMS from home. Patient has history of coronary artery disease he has stents. Patient also has AICD. Patient brought to the emergency department for couple hours of chest pain. Patient states that his chest pain is sharp with squeezing nature to it. Does report associated diaphoresis. His symptoms by him when he was diagnosed with a heart attack in the past. Denies any cough. No fever, chills or night sweats. The ROS documented in this emergency department record has been reviewed and confirmed by me. Those systems with pertinent positive or negative responses have been documented in the HPI. All other systems are other negative and/or noncontributory. PHYSICAL EXAM: General Impression: Alert and oriented x3, not in acute distress HEENT: Normocephalic atraumatic, extra-ocular movements intact, pupils equal and reactive to light bilaterally, mucous membranes moist. Cardiovascular: Heart regular rate and rhythm Chest: Able to complete full sentences, no retractions, no tachypnea Abdomen: abdomen soft, non-tender, non-distended, no organomegaly Musculoskeletal: Pulses present and equal in all extremities, no peripheral edema Motor: no focal deficits noted Neurological: CN II-XII grossly intact, no focal motor or sensory deficits noted Skin: Intact with no visualized rashes Psych: Normal affect and mood ED course: 40-year-old male presents today with symptoms concerning for acute coronary syndrome. Initial EKG is unremarkable without any signs of ischemia or infarction. Vital signs upon arrival shows heart rate of 103, rest of vital signs within acceptable limits. Patient still continues to have pressure sensation like over his chest. He is given aspirin and nitro by EMS with some improvement of symptoms. Patient started on heparin. Laboratory evaluation obtained. CBC [place] recorded as negative. Metabolic panel shows magnesium 1.5. First troponin is negative. Patient reevaluated at bedside and notified of the results. Patient states that his symptoms are impro brittny. Patient be admitted to observation for serial troponins cardiology consultation and medical monitoring. Case discussed Dr. Dan who is willing to accept patients care. EKG interpretation: Ventricular rate vital 2, sinus tachycardia,. Interval 192, QRS 108, QTC 490. No GA prolongation, no QTC prolongation, no ST or T-wave changes noted. EKG compared to 11/14/2019 showing no changes. Overall, this EKG is unremarkable - Related Data Home Medications Medication Instructions Recorded Confirmed Aspirin EC [Ecotrin Low Dose] 81 mg PO DAILY 10/13/18 09/19/19 Losartan [Cozaar] 25 mg PO DAILY 03/11/19 09/19/19 Insulin Glargine,Hum.rec.anlog 100 unit SQ DAILY 04/05/19 09/19/19 [Basaglar Kwikpen U-100] metFORMIN HCL 1,000 mg PO DAILY 06/14/19 09/19/19 Ibuprofen 800 mg PO QID PRN 09/11/19 09/19/19 Furosemide [Lasix] 40 mg PO BID 09/19/19 09/19/19 Previous Rx's Medication Instructions Recorded Atorvastatin [Lipitor] 80 mg PO HS #90 tab 10/16/18 Spironolactone [Aldactone] 25 mg PO DAILY #90 tab 10/16/18 Metoprolol Succinate (ER) [Toprol 75 mg PO DAILY #30 tab.er.24h 09/16/19 XL] Prasugrel [Effient] 10 mg PO DAILY #30 tab 09/16/19 INSULIN ASPART (NovoLOG) [NovoLOG 0 unit SQ ACHS vial 09/21/19 (formulary)] Ibuprofen [Motrin] 600 mg PO Q8HR PRN #30 tab 10/06/19 Sulfamethox-Tmp 800-160Mg [Bactrim 1 each PO Q12HR #20 tab 11/14/19 Ds] Allergies Allergy/AdvReac Type Severity Reaction Status Date / Time Penicillins Allergy Unknown Verified 03/31/20 17:21 Childhood Review of Systems ROS Statement: Those systems with pertinent positive or pertinent negative responses have been documented in the HPI. ROS Other: All systems not noted in ROS Statement are negative. Past Medical History Past Medical History: Coronary Artery Disease (CAD), Chest Pain / Angina, Heart Failure, Diabetes Mellitus, Hyperlipidemia, Hypertension, Myocardial Infarction ([place]), Sleep Apnea/CPAP/BIPAP, Syncope Additional Past Medical History / Comment(s): Cardiiomyopathy with AICD, IDDM type II, neuropathy bilateral feet, SP with Cpap use, migraines, chronic back pain. Last Myocardial Infarction Date:: 2015 History of Any Multi-Drug Resistant Organisms: None Reported Past Surgical History: AICD, Heart Catheterization, Heart Catheterization With Stent Additional Past Surgical History / Comment(s): 10/27/12 AICD, DFTs, PCI with stent Past Anesthesia/Blood Transfusion Reactions: No Reported Reaction Date of Last Stent Placement:: 02/03/16 Type of Cardiac Device: AICD Device Placement Date:: 2012 Past Psychological History: Anxiety, Depression Smoking Status: Former smoker Past Alcohol Use History: None Reported Past Drug Use History: None Reported - Past Family History Mother Family Medical History: No Reported History Additional Family Medical History / Comment(s): Mother is healthy Brother(s) Family Medical History: Myocardial Infarction ([place]) Additional Family Medical History / Comment(s): Brother of a [place] at the age of 35yrs. Father Family Medical History: Liver Disease Additional Family Medical History / Comment(s): Father when pt was 19 yrs old from liver disease. He was an alcoholic. General Exam Limitations: no limitations Course Vital Signs 03/31/20 03/31/20 03/31/20 17:16 17:21 18:07 Temperature 98.2 F Pulse Rate 104 H 103 H 98 Respiratory 18 18 18 Rate Blood Pressure 120/79 O2 Sat by Pulse 95 95 Oximetry Medical Decision Making - Lab Data Result diagrams: 03/31/20 17:24 03/31/20 17:24 Lab Results 03/31/20 03/31/20 03/31/20 Range/Units 17:24 17:24 17:24 WBC 9.5 (3.8-10.6) k/uL RBC 5.48 (4.30-5.90) m/uL Hgb 16.0 (13.0-17.5) gm/dL Hct 47.0 (39.0-53.0) % MCV 85.7 (80.0-100.0) fL MCH 29.1 (25.0-35.0) pg MCHC 33.9 (31.0-37.0) g/dL RDW 13.3 (11.5-15.5) % Plt Count 205 (150-450) k/uL MPV 7.3 Neutrophils % 65 % Lymphocytes % 23 % Monocytes % 7 % Eosinophils % 2 % Basophils % 1 % Neutrophils # 6.2 (1.3-7.7) k/uL Lymphocytes # 2.2 (1.0-4.8) k/uL Monocytes # 0.6 (0-1.0) k/uL Eosinophils # 0.2 (0-0.7) k/uL Basophils # 0.1 (0-0.2) k/uL PT 9.6 (9.0-12.0) sec INR 0.9 (<1.2) APTT 22.9 (22.0-30.0) sec Sodium 138 (137-145) mmol/L Potassium 4.0 (3.5-5.1) mmol/L Chloride 105 (98-107) mmol/L Carbon Dioxide 25 (22-30) mmol/L Anion Gap 8 mmol/L BUN 18 (9-20) mg/dL Creatinine 0.89 (0.66-1.25) mg/dL Est GFR (CKD-EPI)AfAm >90 (>60 ml/min/1.73 sqM) Est GFR (CKD-EPI)NonAf >90 (>60 ml/min/1.73 sqM) Glucose 243 H (74-99) mg/dL Calcium 8.7 (8.4-10.2) mg/dL Magnesium 1.5 L (1.6-2.3) mg/dL Total Bilirubin 1.0 (0.2-1.3) mg/dL AST 22 (17-59) U/L ALT 21 (4-49) U/L Alkaline Phosphatase 94 (38-126) U/L Troponin I (0.000-0.034) ng/mL Total Protein 6.5 (6.3-8.2) g/dL Albumin 3.7 (3.5-5.0) g/dL 03/31/20 Range/Units 17:24 WBC (3.8-10.6) k/uL RBC (4.30-5.90) m/uL Hgb (13.0-17.5) gm/dL Hct (39.0-53.0) % MCV (80.0-100.0) fL MCH (25.0-35.0) pg MCHC (31.0-37.0) g/dL RDW (11.5-15.5) % Plt Count (150-450) k/uL MPV Neutrophils % % Lymphocytes % % Monocytes % % Eosinophils % % Basophils % % Neutrophils # (1.3-7.7) k/uL Lymphocytes # (1.0-4.8) k/uL Monocytes # (0-1.0) k/uL Eosinophils # (0-0.7) k/uL Basophils # (0-0.2) k/uL PT (9.0-12.0) sec INR (<1.2) APTT (22.0-30.0) sec Sodium (137-145) mmol/L Potassium (3.5-5.1) mmol/L Chloride (98-107) mmol/L Carbon Dioxide (22-30) mmol/L Anion Gap mmol/L BUN (9-20) mg/dL Creatinine (0.66-1.25) mg/dL Est GFR (CKD-EPI)AfAm (>60 ml/min/1.73 sqM) Est GFR (CKD-EPI)NonAf (>60 ml/min/1.73 sqM) Glucose (74-99) mg/dL Calcium (8.4-10.2) mg/dL Magnesium (1.6-2.3) mg/dL Total Bilirubin (0.2-1.3) mg/dL AST (17-59) U/L ALT (4-49) U/L Alkaline Phosphatase (38-126) U/L Troponin I <0.012 (0.000-0.034) ng/mL Total Protein (6.3-8.2) g/dL Albumin (3.5-5.0) g/dL Disposition Clinical Impression: Unstable angina Disposition: ADMITTED IP TO THIS [facility] Condition: Fair Referrals: Amrit Dan MD [Primary Care Provider] - 1-2 days Decision Time: 18:43
[2020-03-31 17:48] LABS: ALT 21 U/L (4-49); AST 22 U/L (17-59); African American GFR (CKD) >90 (>60 ml/min/1.73 sqM); Albumin 3.7 g/dL (3.5-5.0); Alkaline Phosphatase 94 U/L (38-126); Anion Gap 8 mmol/L; Blood Urea Nitrogen 18 mg/dL (9-20); Calcium 8.7 mg/dL (8.4-10.2); Carbon Dioxide 25 mmol/L (22-30); Chloride 105 mmol/L (98-107); Glucose 243 mg/dL (74-99); Magnesium 1.5 mg/dL (1.6-2.3); Non-African American GFR(CKD) >90 (>60 ml/min/1.73 sqM); Sodium 138 mmol/L (137-145); Total Protein 6.5 g/dL (6.3-8.2)
--- NOTE | 2020-03-31 17:48 | XR ---
EXAMINATION: XR chest 2V DATE AND TIME: 03/31/2020 5:39 PM CLINICAL INDICATION: Chest Pain TECHNIQUE: Departmental protocol COMPARISON: 11/14/2019 radiographs FINDINGS: Cardiac pacemaker and EKG leads noted. The lung volumes are mildly less than that seen on the prior study. The lungs are predominantly clear and well expanded, with the exception of the retrocardiac lung whic h shows an ill-defined small band of added opacity superimposed over the spine on the lateral view. T his finding suggests segmental atelectasis versus early infiltrate, but the former favored radiograph ically, but clinical delineation requested. The pleural spaces are negative. The cardiac silhouette is borderline enlarged. The remainder of the mediastinal silhouette is unremar kable. The skeletal structures and soft tissues are negative for acute findings. IMPRESSION: Small left lower lobe added band of opacity, most likely atelectasis, as discussed.
[2020-03-31 17:50] LABS: INR 0.9 (<1.2); Partial Thromboplastin Time 22.9 sec (22.0-30.0); Prothrombin Time 9.6 sec (9.0-12.0)
[2020-03-31] MEDS ORDERED: NITROGLYCERIN SL TABS 0.4 MG TAB SUBLINGUAL PRN (18:34)
[2020-03-31 22:04] LABS: Glucose,Whole Blood 192 mg/dL (75-99)
[2020-04-01] MEDS ORDERED: HEPARIN SODIUM,PORCINE 5,000 UNIT/ML 1 ML VIAL IV PRN (01:19)
[2020-04-01 07:34] LABS: Glucose,Whole Blood 145 mg/dL (75-99)
[2020-04-01 08:17] LABS: Cholesterol 137 mg/dL (<200); HDL Cholesterol 37 mg/dL (40-60); LDL Cholesterol,Calculated 54 mg/dL (0-99); Triglycerides 228 mg/dL (<150)
[2020-04-01] MEDS ORDERED: ASPIRIN 325 MG TAB PO SCH (09:00)
--- NOTE | 2020-04-01 09:30 | P.CRDCN ---
History of Present Illness History of present illness: HISTORY OF PRESENTING ILLNESS This is a pleasant 40-year-old male past medical history significant for diabetes mellitus, coronary artery disease status post PCI of the diagonal 1 branch as well as PLV in August 2019, prior tobacco abuse, ischemic cardiomyopathy status post AICD, Charcot foot who presents secondary to chest pain. He follows in the office with Dr. Hernandez. We have been asked to see in consultation for chest pain. Patient initially had presented in August 2019 with non-STEMI and had successful PCI of his PLV and then staged diagonal branch. He was placed on aspirin and Effient however for some reason patient feels that he was taken off of the Effient. He does not recall that Dr. Hernandez did this. He had been doing fairly well up until yesterday. He states he ate some spicy tacos and approximately 20 minutes later started developing sharp chest pain which lasted for approximately 20 minutes. He was worried given his prior MIs and therefore called EMS who did give patient a nitroglycerin and by the time he got to the ER his chest pain had improved. Patient's sense has been walking around the halls without any difficulty. He admits that his prior MD felt more like pressure sensation and did not entirely feel similar to this. He denies any associated nausea, diaphoresis or shortness breath. He does have a history of chronic systolic heart failure with ejection fraction less than 20% however has been fairly stable and denies significant dyspnea or orthopnea, no lower extremity edema. DIAGNOSTICS EKG reveals sinus rhythm with rate 102, normal axis, Q waves V1 and V2, no significant ST or T wave abnormalities.. Chest xray small left lower lobe added band of opacity most likely atelectasis and otherwise no acute process. AICD in place.. Laboratory reviewed, white blood cell count 9.5, hemoglobin 16.0, platelets 205, creatinine 0.89, glucose 243, troponin negative 3, triglyceride 228, cholesterol 137, LDL 54, HDL 37. Current home medications include spironolactone 25 mg daily, Toprol 100 mg daily, losartan 100 mg daily, Lasix 40 mg daily, Lipitor 80 mg daily, aspirin 81 mg daily REVIEW OF SYSTEMS At the time of my exam: CONSTITUTIONAL: Denies fever or chills. CARDIOVASCULAR: + chest pain, no shortness of breath, orthopnea, PND or palpitations. RESPIRATORY: Denies cough. GASTROINTESTINAL: Denies abdominal pain, diarrhea, constipation, nausea or vomiting. MUSCULOSKELETAL: Denies myalgias. + Charcot foot NEUROLOGIC: Denies numbness, tingling or weakness. ENDOCRINE: Denies fatigue, weight change, polydipsia or polyurina. GENITOURINARY: Denies burning, hematuria or urgency with micturation. HEMATOLOGIC: Denies history of anemia or bleeding. PHYSICAL EXAMINATION Blood pressure 105/72 heart rate 96 afebrile and maintaining oxygen saturation on room air. CONSTITUTIONAL: No apparent distress. HEENT: Head is normocephalic. Pupils are equal, round. Sclerae anicteric. Mucous membranes of the mouth are moist. No JVD. No carotid bruit. CHEST EXAMINATION: Lungs are clear to auscultation. No chest wall tenderness is noted on palpation or with deep breathing. HEART EXAMINATION: Regular rate and rhythm. S1, S2 heard. No murmurs, gallops or rub. ABDOMEN: Soft, nontender. Positive bowel sounds. EXTREMITIES: 2+ peripheral pulses, no lower extremity edema and no calf tenderness. NEUROLOGIC EXAMINATION: Patient is awake, alert and oriented x3. ASSESSMENT 1. Atypical chest pain after eating spicy tacos for approximately 20 minutes. Troponins negative 3. Do not suspect acute coronary syndrome. 2. History of coronary artery disease status post PCI of PLV and diagonal branch August 2019 3. Questionable compliance with patient not taking dual antiplatelets for unknown reason 4. Prior history of tobacco abuse since quit 5. Cardiomyopathy with ejection fraction less than 20% status post AICD 6. Chronic systolic heart failure 7. Hyperlipidemia 8. Essential hypertension 9. Diabetes mellitus type 2 PLAN Restart home medications. Chest pain does not appear cardiac in nature and troponins negative 3, acute coronary syndrome has been ruled out. Patient stable for discharge home from a cardiac standpoint. No need to repeat echo. Patient should however be on dual antiplatelets for a total of [address] him on Plavix as well as his aspirin. Discussed with patient importance of taking both. Follow-up with Dr. Hernandez in 1 week. Past Medical History Past Medical History: Coronary Artery Disease (CAD), Chest Pain / Angina, Heart Failure, Diabetes Mellitus, Hyperlipidemia, Hypertension, Myocardial Infarction ([place]), Sleep Apnea/CPAP/BIPAP, Syncope Additional Past Medical History / Comment(s): Cardiiomyopathy with AICD, IDDM type II, neuropathy bilateral feet, SP with Cpap use, migraines, chronic back pain. Last Myocardial Infarction Date:: 2015 History of Any Multi-Drug Resistant Organisms: None Reported Past Surgical History: AICD, Heart Catheterization, Heart Catheterization With Stent Additional Past Surgical History / Comment(s): 10/27/12 AICD, DFTs, PCI with stent Past Anesthesia/Blood Transfusion Reactions: No Reported Reaction Date of Last Stent Placement:: 02/03/16 Type of Cardiac Device: AICD Device Placement Date:: 2012 Past Psychological History: Anxiety, Depression Additional Psychological History / Comment(s): Pt resides with his sister Smoking Status: Former smoker Past Alcohol Use History: None Reported Additional Past Alcohol Use History / Comment(s): quit in 2019 Past Drug Use History: None Reported - Past Family History Mother Family Medical History: No Reported History Additional Family Medical History / Comment(s): Mother is healthy Brother(s) Family Medical History: Myocardial Infarction ([place]) Additional Family Medical History / Comment(s): Brother of a [place] at the age of 35yrs. Father Family Medical History: Liver Disease Additional Family Medical History / Comment(s): Father when pt was 19 yrs old from liver disease. He was an alcoholic. Medications and Allergies Home Medications Medication Instructions Recorded Confirmed Type Aspirin EC [Ecotrin Low Dose] 81 mg PO DAILY 10/13/18 03/31/20 History Atorvastatin [Lipitor] 80 mg PO HS #90 tab 10/16/18 03/31/20 Rx Spironolactone [Aldactone] 25 mg PO DAILY #90 tab 10/16/18 03/31/20 Rx metFORMIN HCL 1,000 mg PO DAILY 06/14/19 03/31/20 History Ibuprofen 800 mg PO QID PRN 09/11/19 03/31/20 History Furosemide [Lasix] 40 mg PO DAILY 09/19/19 03/31/20 History HYDROcodone/APAP 5-325MG [[place] 1 tab PO QID PRN 03/31/20 03/31/20 History 5-325] INSULIN ASPART (NovoLOG) [NovoLOG 30 unit SQ AC-TID 03/31/20 03/31/20 History (formulary)] Insulin Glargine,Hum.rec.anlog 100 unit SQ BID 03/31/20 03/31/20 History [Lantus Solostar] Losartan Potassium 100 mg PO DAILY 03/31/20 03/31/20 History Metoprolol Succinate (ER) [Toprol 100 mg PO DAILY 03/31/20 03/31/20 History Xl] Allergies Allergy/AdvReac Type Severity Reaction Status Date / Time Penicillins Allergy Unknown Verified 03/31/20 19:03 Childhood Physical Exam Vitals: Vital Signs Temp Pulse Pulse Resp BP BP Pulse Ox 04/01/20 05:05 98.2 F 96 18 105/72 97 04/01/20 00:08 119/84 03/31/20 21:45 98 F 93 18 129/90 97 03/31/20 20:32 90 18 127/68 98 03/31/20 18:07 98 18 120/79 95 03/31/20 17:21 103 H 18 03/31/20 17:16 98.2 F 104 H 18 95 Intake and Output 03/31/20 04/01/20 04/01/20 22:59 06:59 14:59 Intake Total 73.167 Balance 73.167 Intake: Intake, IV Titration 73.167 Amount Heparin Sod,Pork in 0.45% 73.167 NaCl 25,000 unit In 0.45 % NaCl 1 250ml.bag @ 6. 911 UNITS/KG/HR 10 mls/hr IV .Q24H [facility] Rx#: [id number] Other: # Voids 1 1 Weight 144.696 kg Results 03/31/20 17:24 03/31/20 17:24 Cardiac Enzymes 03/31/20 03/31/20 03/31/20 Range/Units 17:24 17:24 19:59 AST 22 (17-59) U/L Troponin I <0.012 <0.012 (0.000-0.034) ng/mL 04/01/20 Range/Units 00:34 AST (17-59) U/L Troponin I <0.012 (0.000-0.034) ng/mL Coagulation 03/31/20 04/01/20 04/01/20 Range/Units 17:24 00:34 07:37 PT 9.6 (9.0-12.0) sec APTT 22.9 25.7 31.9 H (22.0-30.0) sec Lipids 04/01/20 Range/Units 07:37 Triglycerides 228 H (<150) mg/dL Cholesterol 137 (<200) mg/dL HDL Cholesterol 37 L (40-60) mg/dL CBC 03/31/20 Range/Units 17:24 WBC 9.5 (3.8-10.6) k/uL RBC 5.48 (4.30-5.90) m/uL Hgb 16.0 (13.0-17.5) gm/dL Hct 47.0 (39.0-53.0) % Plt Count 205 (150-450) k/uL Comprehensive Metabolic Panel 03/31/20 Range/Units 17:24 Sodium 138 (137-145) mmol/L Potassium 4.0 (3.5-5.1) mmol/L Chloride 105 (98-107) mmol/L Carbon Dioxide 25 (22-30) mmol/L BUN 18 (9-20) mg/dL Creatinine 0.89 (0.66-1.25) mg/dL Glucose 243 H (74-99) mg/dL Calcium 8.7 (8.4-10.2) mg/dL AST 22 (17-59) U/L ALT 21 (4-49) U/L Alkaline Phosphatase 94 (38-126) U/L Total Protein 6.5 (6.3-8.2) g/dL Albumin 3.7 (3.5-5.0) g/dL Current Medications Generic Name Dose Route Start Last Admin Trade Name Freq PRN Reason Stop Dose Admin Aspirin 325 mg 04/01/20 09:00 Aspirin 325 Mg Tab PO DAILY [facility] Heparin Sodium (Porcine) 0 unit 04/01/20 01:19 04/01/20 01:28 Heparin Sodium,Porcine 5,000 Unit/Ml 1 Ml Vial IV 4,000 unit PER PROTOCOL PRN Administration Low PTT Protocol Heparin Sodium/Sodium Chloride 250 mls @ 10 mls/hr 03/31/20 17:30 04/01/20 01:23 25,000 unit/ Sodium Chloride IV 9.911 units/kg/hr .Q24H [facility] 14.341 mls/hr Titration Protocol 6.911 UNITS/KG/HR Nitroglycerin 0.4 mg 03/31/20 18:34 Nitroglycerin Sl Tabs 0.4 Mg Tab SUBLINGUAL Q5M PRN Chest Pain Intake and Output 1204/01/20 04/01/20 22:59 06:59 14:59 Intake Total 73.167 Balance 73.167 Intake: Intake, IV Titration 73.167 Amount Heparin Sod,Pork in 0.45% 73.167 NaCl 25,000 unit In 0.45 % NaCl 1 250ml.bag @ 6. 911 UNITS/KG/HR 10 mls/hr IV .Q24H [facility] Rx#: [id number] Other: # Voids 1 1 Weight 144.696 kg 03/31/20 17:24 03/31/20 17:24
[2020-04-01] MEDS ORDERED: FUROSEMIDE 40 MG TAB PO SCH (09:45)
[2020-04-01] MEDS ORDERED: SPIRONOLACTONE 25 MG TAB PO SCH (09:45)
[2020-04-01] MEDS ORDERED: METOPROLOL SUCCINATE (ER) 100 MG TAB.ER.24H PO SCH (09:45)
[2020-04-01] MEDS ORDERED: LOSARTAN 50 MG TAB PO SCH (09:45)
[2020-04-01] MEDS ORDERED: CLOPIDOGREL 75 MG TAB PO SCH (09:45)
[2020-04-01 10:29] VITALS: BP 131/92; PULSE 104; RESP 16; TEMP 97.8
[2020-04-01] MEDS ORDERED: IBUPROFEN 800 MG TAB PO PRN (11:04)
[2020-04-01] MEDS ORDERED: HYDROcodone/APAP 5-325MG 1 EACH TAB PO PRN (11:04)
[2020-04-01 11:55] LABS: Glucose,Whole Blood 198 mg/dL (75-99)
[2020-04-01] MEDS ORDERED: INSULIN ASPART (NovoLOG) 100 UNIT/ML VIAL SQ SCH (12:30)
--- NOTE | 2020-04-01 19:33 | HP ---
HISTORY AND PHYSICAL CHIEF COMPLAINT: Chest pain. HISTORY OF PRESENT ILLNESS: This is another admission for this 40-year-old male who has had a longstanding history of coronary artery disease, congestive heart failure, poorly controlled insulin- dependent diabetes mellitus and obesity. He presented to the emergency room with chest pain. His cardiac injury markers were normal. Because of his history, it was felt safest to put him in overnight for serial EKGs and enzymes and further evaluation by Cardiology. REVIEW OF SYSTEMS: He has had no shortness of breath, aching in the jaw, diaphoresis, nausea, etc. Past medical history, family history, and personal and social histories are all otherwise unremarkable and unchanged from his recent admitting and discharge summaries. He has been doing better of late on management of his diabetes. PHYSICAL EXAMINATION: Blood pressure is 128/86 with a pulse of 64, respirations of 20, and he is afebrile. In general he appeared to be obese and in no acute distress. Skin color was normal. Skin was warm and dry. Lymph nodes were not enlarged. Head, ears, eyes, nose, mouth and throat were normal. Neck veins were not distended. Thyroid was not enlarged. Chest was clear. Cardiac exam was normal. The abdomen was soft, nontender and protuberant. Extremities were normal. Neurologically he is intact. ADMITTING DIAGNOSES: 1. Chest pain. 2. Coronary artery disease. 3. Poorly controlled insulin-dependent diabetes mellitus. 4. Obesity. 5. History of congestive heart failure. PLAN: 1. Bedrest. 2. IV fluids. 3. Serial EKGs and enzymes. 4. Cardiology consult. MMODL / IJN: [id number] /
--- NOTE | 2020-04-01 19:42 | DS ---
DISCHARGE SUMMARY DATE OF SERVICE: 04/01/2020 CHIEF COMPLAINT: Chest pain. HISTORY OF PRESENT ILLNESS AND PHYSICAL EXAMINATION: Details of this man's history and physical can be found in the initial workup. LABORATORY STUDIES: While he was in the hospital he had laboratory studies, details of which can be found in the laboratory section of his chart. COURSE IN THE HOSPITAL: After admission he was placed on bedrest, started on intravenous fluids and had serial EKGs and enzymes that were normal. He was seen by Cardiology and it was felt that his pain was chest wall in nature and that he could be discharged. He will go home on his usual activity, diet and medications and be followed up in a few days in the office. FINAL DIAGNOSES: 1. Atypical chest pain. 2. History of coronary artery disease. 3. Insulin-dependent diabetes mellitus. 4. Chronic obstructive pulmonary disease. 5. Congestive heart failure. OPERATIONS: None. CONSULTATION: Cardiology. He is improved. MMODL / IJN: [id number] /
[2020-04-01] MEDS ORDERED: ATORVASTATIN 80 MG TAB PO SCH (21:00)
[2020-04-01] MEDS ORDERED: INSULIN DETEMIR (LEVEMIR) 100 UNIT/ML SYR SQ SCH (21:00)
[2020-04-02] MEDS ORDERED: FUROSEMIDE 40 MG TAB PO SCH (09:00)
[2020-04-02] MEDS ORDERED: NON FORMULARY DRUG (Losartan Potassium [Losartan Potassium] 100 MG Tablet) PO SCH (09:00)
[2020-04-02] MEDS ORDERED: METOPROLOL SUCCINATE (ER) 100 MG TAB.ER.24H PO SCH (09:00)
[2020-04-02] MEDS ORDERED: metFORMIN 500 MG TAB PO SCH (09:00)
[2020-04-02] MEDS ORDERED: ASPIRIN 81 MG PO SCH (09:00)
[2020-04-02] MEDS ORDERED: SPIRONOLACTONE 25 MG TAB PO SCH (09:00)
== END 2020-04-01 12:53 | disposition home or self-care (01) ==
LOC: EC 17:15 → 1SOBS 18:34
PROVIDERS: ADMIT Family Medicine; ATTEND Family Medicine
DX: R07.89 Other chest pain (principal); I25.10 Atherosclerotic heart disease of native coronary artery without angina pectoris; I11.0 Hypertensive heart disease with heart failure; I50.22 Chronic systolic (congestive) heart failure; E78.5 Hyperlipidemia, unspecified; E11.610 Type 2 diabetes mellitus with diabetic neuropathic arthropathy; G43.909 Migraine, unspecified, not intractable, without status migrainosus; G47.33 Obstructive sleep apnea (adult) (pediatric); G62.9 Polyneuropathy, unspecified; G89.29 Other chronic pain; M54.9 Dorsalgia, unspecified; F32.9 Major depressive disorder, single episode, unspecified; F41.9 Anxiety disorder, unspecified; I25.5 Ischemic cardiomyopathy; J44.9 Chronic obstructive pulmonary disease, unspecified; R61 Generalized hyperhidrosis; I25.2 Old myocardial infarction; R00.0 Tachycardia, unspecified; E66.9 Obesity, unspecified; Z68.41 Body mass index [BMI] 40.0-44.9, adult; Z79.82 Long term (current) use of aspirin; Z79.899 Other long term (current) drug therapy; Z79.4 Long term (current) use of insulin; Z79.1 Long term (current) use of non-steroidal anti-inflammatories (NSAID); Z79.891 Long term (current) use of opiate analgesic; Z88.0 Allergy status to penicillin; Z95.5 Presence of coronary angioplasty implant and graft; Z95.810 Presence of automatic (implantable) cardiac defibrillator; Z87.891 Personal history of nicotine dependence; Z82.49 Family history of ischemic heart disease and other diseases of the circulatory system; Z83.79 Family history of other diseases of the digestive system
CPT/HCPCS: 93005 ×2; 96366 ×3; 96376 ×2; 96365; 99285; 36415; 80061; 80053; 83735; 84484 ×2; 85025; 85610; 85730 ×2; 71046; G0378 ×2; J1644 ×3

== ENCOUNTER 2020-07-25 13:08 | Observation (INO) | payer OTHER ==
--- NOTE | 2020-07-25 13:22 | ED ---
Chest Pain HPI - General Source: patient, RN notes reviewed Mode of arrival: ambulatory Limitations: no limitations <Spencer Dorsey - Last Filed: 07/25/20 13:21> <Yaya Waite - Last Filed: 07/25/20 17:49> - General Chief Complaint: Chest Pain Stated Complaint: chest pain Time Seen by Provider: 07/25/20 13:16 - History of Present Illness Initial Comments: 40-year-old male presents emergency Department chief complaint chest pain. Patient states started yesterday around 2 PM. Patient states that he has an extensive cardiac history. Patient states that has not alleviated did have some diaphoresis. Patient states he has burning chest pain across top of his chest. He has not recently weighed himself does have a history of CHF, pacemaker. (Spencer Dorsey) - Related Data Home Medications Medication Instructions Recorded Confirmed Aspirin EC [Ecotrin Low Dose] 81 mg PO DAILY 10/13/18 03/31/20 metFORMIN HCL 1,000 mg PO DAILY 06/14/19 03/31/20 Ibuprofen 800 mg PO QID PRN 09/11/19 03/31/20 Furosemide [Lasix] 40 mg PO DAILY 09/19/19 03/31/20 HYDROcodone/APAP 5-325MG [[place] 1 tab PO QID PRN 03/31/20 03/31/20 5-325] INSULIN ASPART (NovoLOG) [NovoLOG 30 unit SQ AC-TID 03/31/20 03/31/20 (formulary)] Insulin Glargine,Hum.rec.anlog 100 unit SQ BID 03/31/20 03/31/20 [Lantus Solostar] Losartan Potassium 100 mg PO DAILY 03/31/20 03/31/20 Metoprolol Succinate (ER) [Toprol 100 mg PO DAILY 03/31/20 03/31/20 XL] Previous Rx's Medication Instructions Recorded Atorvastatin [Lipitor] 80 mg PO HS #90 tab 10/16/18 Spironolactone [Aldactone] 25 mg PO DAILY #90 tab 10/16/18 Clopidogrel [Plavix] 75 mg PO DAILY #90 tab 04/01/20 Metoprolol Succinate (ER) [Toprol 100 mg PO DAILY #30 tab.er.24h 04/01/20 XL] Spironolactone [Aldactone] 25 mg PO DAILY #30 tab 12/11/20 Allergies Allergy/AdvReac Type Severity Reaction Status Date / Time Penicillins Allergy Unknown Verified 07/25/20 13:15 Childhood Review of Systems ROS Other: All systems not noted in ROS Statement are negative. <Spencer Dorsey - Last Filed: 07/25/20 13:21> ROS Other: All systems not noted in ROS Statement are negative. <Yaya Waite - Last Filed: 07/25/20 17:49> ROS Statement: Those systems with pertinent positive or pertinent negative responses have been documented in the HPI. Past Medical History Past Medical History: Coronary Artery Disease (CAD), Chest Pain / Angina, Heart Failure, Diabetes Mellitus, Hyperlipidemia, Hypertension, Myocardial Infarction (MT), Sleep Apnea/CPAP/BIPAP, Syncope Additional Past Medical History / Comment(s): Cardiiomyopathy with AICD, IDDM type II, neuropathy bilateral feet, SP with Cpap use, migraines, chronic back pain. Last Myocardial Infarction Date:: 2015 History of Any Multi-Drug Resistant Organisms: None Reported Past Surgical History: AICD, Heart Catheterization, Heart Catheterization With Stent Additional Past Surgical History / Comment(s): 10/27/12 AICD, DFTs, PCI with stent Past Anesthesia/Blood Transfusion Reactions: No Reported Reaction Date of Last Stent Placement:: 02/03/16 Type of Cardiac Device: AICD Device Placement Date:: 2012 Past Psychological History: Anxiety, Depression Smoking Status: Former smoker Past Alcohol Use History: None Reported Past Drug Use History: None Reported - Past Family History Mother Family Medical History: No Reported History Additional Family Medical History / Comment(s): Mother is healthy Brother(s) Family Medical History: Myocardial Infarction (MT) Additional Family Medical History / Comment(s): Brother of a MT at the age of 35yrs. Father Family Medical History: Liver Disease Additional Family Medical History / Comment(s): Father when pt was 19 yrs old from liver disease. He was an alcoholic. <Spencer Dorsey - Last Filed: 07/25/20 13:21> General Exam Limitations: no limitations <Spencer Dorsey - Last Filed: 07/25/20 13:21> Course Vital Signs 07/25/20 13:15 Temperature 98.1 F Pulse Rate 124 H Respiratory 18 Rate Chest Pain MDM - PERC Rule Heart Rate < 100: (1) Yes No Prior History pf DVT/PE: (0) No No Recent Trauma or Surgery: (0) No Hemoptysis: (0) No No Exogenous Estrogen: (0) No No Clinical Signs Suggesting DVT: (0) No - KUMAR Score Age > 65: (0) No <Yaya Waite - Last Filed: 07/25/20 17:49> - [facility] Patient complaining of chest pain when he lays down, with worsening shortness of breath, cxr negative. glucose elevated at 446. Pt will be admitted consult for unstable angina to Dr. Dan, WBC count 7.7, troponin 0.012, cardiology consulted, low dose heparin started. (Yaya Waite) Disposition <Spencer Dorsey - Last Filed: 07/25/20 13:21> Is patient prescribed a controlled substance at d/c from ED?: No Decision Date: 07/25/20 Decision Time: 17:48 <Yaya Waite - Last Filed: 07/25/20 17:49> Clinical Impression: Unstable angina, Hyperglycemia Disposition: ADMITTED IP TO THIS [facility] Condition: Fair Referrals: Amrit Dan MD [Primary Care Provider] - 1-2 days
[2020-07-25 13:53] LABS: Basophils # (A) 0.1 k/uL (0-0.2); Basophils % (A) 1 %; Eosinophils # (A) 0.2 k/uL (0-0.7); Eosinophils % (A) 3 %; HCT 48.4 % (39.0-53.0); HGB 17.4 gm/dL (13.0-17.5); Lymphocytes # (A) 1.8 k/uL (1.0-4.8); Lymphocytes % (A) 24 %; MCH 29.7 pg (25.0-35.0); MCHC 35.9 g/dL (31.0-37.0); MCV 82.7 fL (80.0-100.0); Mean Platelet Volume 7.7; Monocytes # (A) 0.5 k/uL (0-1.0); Monocytes % (A) 6 %; Neutrophils % (A) 65 %; Platelet Count 191 k/uL (150-450); RBC 5.85 m/uL (4.30-5.90); RDW 13.8 % (11.5-15.5); WBC 7.7 k/uL (3.8-10.6)
[2020-07-25 14:06] LABS: ALT 25 U/L (4-49); AST 29 U/L (17-59); African American GFR (CKD) >90 (>60 ml/min/1.73 sqM); Alkaline Phosphatase 153 U/L (38-126); Anion Gap 13 mmol/L; Blood Urea Nitrogen 18 mg/dL (9-20); Calcium 9.1 mg/dL (8.4-10.2); Carbon Dioxide 21 mmol/L (22-30); Chloride 98 mmol/L (98-107); Glucose 446 mg/dL (74-99); Magnesium 1.7 mg/dL (1.6-2.3); Non-African American GFR(CKD) >90 (>60 ml/min/1.73 sqM); Potassium 4.1 mmol/L (3.5-5.1); Sodium 132 mmol/L (137-145); Total Bilirubin 1.2 mg/dL (0.2-1.3); Total Protein 7.1 g/dL (6.3-8.2)
--- NOTE | 2020-07-25 14:14 | XR ---
EXAMINATION TYPE: XR chest 2V DATE OF EXAM: 07/25/2020 COMPARISON: NONE HISTORY: Chest pain TECHNIQUE: Frontal and lateral views of the chest are obtained. FINDINGS: There is no focal air space opacity. No evidence for pneumothorax. No pleural effusion. The cardiac silhouette size is within normal limits. The osseous structures are grossly intact. IMPRESSION: 1. No acute cardiopulmonary process.
[2020-07-25 14:17] LABS: INR 0.9 (<1.2)
[2020-07-25 14:20] LABS: Partial Thromboplastin Time 21.4 sec (22.0-30.0)
[2020-07-25] MEDS ORDERED: NALOXONE 0.4 MG/ML 1 ML VIAL IV PRN (17:39)
[2020-07-25] MEDS ORDERED: SODIUM CHLORIDE 0.9% 1,000 ML IV ONE (17:50)
[2020-07-25] MEDS ORDERED: HEPARIN SODIUM 1,000 UN/ML (10ML VL) IV ONE (17:50)
[2020-07-25] MEDS ORDERED: HEPARIN SOD,PORK IN 0.45% NACL 25,000 UNIT in 0.45% NACL 1 250ML.BAG IV SCH (18:00)
[2020-07-25 22:13] LABS: Glucose,Whole Blood 385 mg/dL (75-99)
[2020-07-26] MEDS ORDERED: ACETAMINOPHEN TAB 325 MG TAB PO STA (00:46)
[2020-07-26] MEDS: HEPARIN SODIUM 1,000 UN/ML (10ML VL) IV PRN ×2 (05:21→17:10)
[2020-07-26] MEDS: ATORVASTATIN 80 MG TAB PO SCH (10:41)
[2020-07-26] MEDS: CLOPIDOGREL 75 MG TAB PO SCH (10:41)
[2020-07-26] MEDS: ASPIRIN 81 MG PO SCH (10:41)
[2020-07-26] MEDS: METOPROLOL SUCCINATE (ER) 100 MG TAB.ER.24H PO SCH (10:42)
[2020-07-26] MEDS: FUROSEMIDE 80 MG TAB PO SCH (10:42)
[2020-07-26] MEDS: SPIRONOLACTONE 25 MG TAB PO SCH (10:42)
[2020-07-26] MEDS: LOSARTAN 50 MG TAB PO SCH (10:42)
[2020-07-26] MEDS ORDERED: NITROGLYCERIN SL TABS 0.4 MG TAB SUBLINGUAL PRN (11:46)
[2020-07-26] MEDS ORDERED: IBUPROFEN 800 MG TAB PO PRN (11:46)
--- NOTE | 2020-07-26 12:33 | ECHOF ---
Referral Reason:LV function, Chest pain MEASUREMENTS -------- HEIGHT: 177.8 cm WEIGHT: 154.2 kg BP: IVSd: 0.9 cm (0.6 - 1.1) LVIDd: 6.4 cm (3.9 - 5.3) LVPWd: 1.3 cm (0.6 - 1.1) EDV(Teich): 210 ml IVSs: 1.3 cm LVIDs: 5.5 cm LVPWs: 1.4 cm %IVS Thck: 40 % ESV(Teich): 148 ml EF(Teich): 29 % %FS: 14 % SV(Teich): 61 ml RVIDd: 3.5 cm (< 3.3) LALs A4C: 6.8 cm LAAs A4C: 28.2 cm LAESV A-L A4C: 100 ml LAESV MOD A4C: 92 ml LALs A2C: 6.2 cm LAAs A2C: 23.0 cm LAESV A-L A2C: 73 ml LAESV MOD A2C: 70 ml LAESV(A-L): 90 ml LAESV Index (A-L): 34.18 ml/m Ao Diam: 3.0 cm (2.0 - 3.7) LA Diam: 5.1 cm (2.7 - 3.8) AV Cusp: 1.7 cm (1.5 - 2.6) EPSS: 1.6 cm MV E Andres: 0.97 m/s MV DecT: 133 ms MV Dec [place]: 7.3 m/s MV A Andres: 0.53 m/s MV E/A Ratio: 1.82 MV PHT: 39 ms MR Vmax: 3.62 m/s MR maxP.43 mmHg AV Vmax: 0.82 m/s AV maxP.67 mmHg TR Vmax: 1.93 m/s TR maxP.87 mmHg RAP: 5.00 mmHg RVSP: 19.87 mmHg MV EF SLOPE: 129.30 mm/s (70 - 150) MV EXCURSION: 21.69 mm (> 18.000) FINDINGS -------- AICD This was a technically difficult study with suboptimal views. The left ventricle is moderately dilated. Left ventricular wall thickness is normal. There is sev ere global hypokinesis of LV . Overall left ventricular systolic function is severely impaired with , an EF between 20 - 25 %. Increased LAP Grade 2 Diastolic Dysfunction. The right ventricle is mildly enlarged. LA is moderately dilated 34-39 ml/m2 The right atrial size is normal. Lumason used The aortic valve is trileaflet and appears structurally normal. The mitral valve is normal. Mild mitral regurgitation is present. The tricuspid valve appears structurally normal. Trace tricuspid regurgitation present. Right mojgan tricular systolic pressure is normal at < 35 mmHg. There is no pulmonic regurgitation present. The aortic root size is normal. IVC Not well visulized. There is no pericardial effusion. CONCLUSIONS -------- 1. AICD 2. The left ventricle is moderately dilated. 3. Left ventricular wall thickness is normal. 4. There is severe global hypokinesis of LV . 5. Overall left ventricular systolic function is severely impaired with, an EF between 20 - 25 %. 6. Increased LAP Grade 2 Diastolic Dysfunction. 7. The right ventricle is mildly enlarged. 8. LA is moderately dilated 34-39 ml/m2 9. Mild mitral regurgitation is present. 10. Trace tricuspid regurgitation present. 11. There is no pericardial effusion. DIRECTOR OF SPEECH PATHOLOGY: Consuelo Carlson RDCS
--- NOTE | 2020-07-26 13:23 | P.CRDCN ---
History of Present Illness Consult date: 07/26/20 History of present illness: HISTORY OF PRESENT ILLNESS: This is a 40-year-old male with a past medical history significant for diabetes mellitus, coronary artery disease with previous stenting, ischemic cardiomyopathy with previous ICD, and former nicotine dependence. Patient follows in the office with Dr. Hernandez. We have been asked to see the patient in consultation for chest pain. Patient examined at the bedside in the emergency room. Patient states yesterday he began having chest pressure when he was at home. He states the pain radiated to his left shoulder. He denies feeling nauseated. He denies dizziness or lightheadedness. He states the pain lasted for approximately 1 hour and then subsided. Patient does report doing yard work the day before and states he was exerting himself quite a bit. At the time of examination, the patient denies any chest pain or pressure. EKG reveals sinus tachycardia with no signs of acute ischemia Chest xray negative for acute process Laboratory data: WBC 7.7. Hemoglobin 17.4. Platelet count 191. Sodium 132. Potassium 4.1. BUN 18. Creatinine 0.74. Troponin negative 2. BNP 122. Current home cardiac medications include Aldactone 25 mg daily, losartan 100 mg daily, Lasix 80 mg daily, Plavix 75 mg daily, Lipitor 80 mg daily, aspirin 81 mg daily, and metoprolol succinate 100 mg daily Echocardiogram obtained today reveals ejection fraction 20-25%, mild mitral regurgitation, and trace tricuspid regurgitation with severe global hypokinesis of LV. Cardiac catheterization history: August 2019 with stenting of the PLV branch of the right coronary artery and stenting of the mid right coronary artery. Patient also underwent stenting of the first diagonal branch of the LAD. REVIEW OF SYSTEMS: At the time of my exam: CONSTITUTIONAL: Denies fever or chills. HEENT: Denies blurred vision, vision changes, or eye pain. Denies hemoptysis CARDIOVASCULAR: Denies chest pain. Denies orthopnea. Denies PND. Denies palpitations RESPIRATORY: Denies shortness of breath. GASTROINTESTINAL: Denies abdominal pain. Denies nausea or vomiting. HEMATOLOGIC: Denies bleeding disorders. GENITOURINARY: Denies any blood in urine. SKIN: Denies pruitis. Denies rash. PHYSICAL EXAM: VITAL SIGNS: Reviewed. GENERAL: Well-developed in no acute distress. HEENT: Head is normocephalic. Pupils are equal, round. Sclerae anicteric. Mucous membranes of the mouth are moist. Neck supple. No JVD or thyromegaly LUNGS: Respirations even and unlabored. Lungs essentially clear to auscultation bilaterally. HEART: Regular rate and rhythm. S1 and S2 heard. ABDOMEN: Soft. Nondistended. Nontender. EXTREMITIES: Normal range of motion. No clubbing or cyanosis. Peripheral pulses intact. No lower extremity edema NEUROLOGIC: Awake and alert. Oriented x 3. ASSESSMENT: Chest pain, troponins negative 2 with no acute EKG changes Coronary artery disease with previous PCI Ischemic cardiomyopathy with previous ICD implantation Chronic systolic heart failure, currently euvolemic Hypertension Hyperlipidemia Diabetes mellitus Former nicotine dependence PLAN: An acute coronary event has been ruled out Discontinue IV heparin Resume home cardiac medications Patient may be discharged home today from a cardiac standpoint. Patient is to follow up outpatient with Dr. Hernandez. Recommend Deyvi. This will be further discussed on an outpatient basis. Patient will also need to have his ICD checked on an outpatient basis as he states this has not been done for awhile. We will sign off. Please reconsult if needed. Nurse practitioner note has been reviewed by physician. Signing provider agrees with the documented findings, assessment, and plan of care. Past Medical History Past Medical History: Coronary Artery Disease (CAD), Chest Pain / Angina, Heart Failure, Diabetes Mellitus, Hyperlipidemia, Hypertension, Myocardial Infarction (PR), Sleep Apnea/CPAP/BIPAP, Syncope Additional Past Medical History / Comment(s): Cardiiomyopathy with AICD, IDDM type II, neuropathy bilateral feet, SP with Cpap use, migraines, chronic back pain. Last Myocardial Infarction Date:: 2015 History of Any Multi-Drug Resistant Organisms: None Reported Past Surgical History: AICD, Heart Catheterization, Heart Catheterization With Stent Additional Past Surgical History / Comment(s): 10/27/12 AICD, DFTs, PCI with stent Past Anesthesia/Blood Transfusion Reactions: No Reported Reaction Date of Last Stent Placement:: 02/03/16 Type of Cardiac Device: AICD Device Placement Date:: 2012 Past Psychological History: Anxiety, Depression Smoking Status: Former smoker Past Alcohol Use History: None Reported Past Drug Use History: None Reported - Past Family History Mother Family Medical History: No Reported History Additional Family Medical History / Comment(s): Mother is healthy Brother(s) Family Medical History: Myocardial Infarction (PR) Additional Family Medical History / Comment(s): Brother of a PR at the age of 35yrs. Father Family Medical History: Liver Disease Additional Family Medical History / Comment(s): Father when pt was 19 yrs old from liver disease. He was an alcoholic. Medications and Allergies Home Medications Medication Instructions Recorded Confirmed Type Aspirin EC [Ecotrin Low Dose] 81 mg PO DAILY 10/13/18 07/25/20 History metFORMIN HCL 1,000 mg PO DAILY 06/14/19 07/25/20 History Ibuprofen 800 mg PO QID PRN 09/11/19 07/25/20 History INSULIN ASPART (NovoLOG) [NovoLOG 20 - 30 unit SQ AC-TID 03/31/20 07/25/20 History (formulary)] Insulin Glargine,Hum.rec.anlog 100 unit SQ BID 03/31/20 07/25/20 History [Lantus Solostar] Losartan Potassium 100 mg PO DAILY 03/31/20 07/25/20 History Clopidogrel [Plavix] 75 mg PO DAILY #90 tab 04/01/20 07/25/20 Rx Spironolactone [Aldactone] 25 mg PO DAILY #30 tab 04/01/20 07/25/20 Rx Atorvastatin [Lipitor] 80 mg PO DAILY 07/25/20 07/25/20 History Ergocalciferol (Vitamin D2) 1,250 mcg PO FR 07/25/20 07/25/20 History [Drisdol (50,000 Iu)] Furosemide [Lasix] 80 mg PO DAILY 07/25/20 07/25/20 History Nitroglycerin Sl Tabs [Nitrostat] 0.4 mg SUBLINGUAL Q5M PRN 07/25/20 07/25/20 History Allergies Allergy/AdvReac Type Severity Reaction Status Date / Time Penicillins Allergy Unknown Verified 07/25/20 17:58 Childhood Physical Exam Vitals: Vital Signs Temp Pulse Resp BP Pulse Ox 07/26/20 06:55 82 16 118/61 97 07/26/20 03:45 97.6 F 86 18 121/66 100 07/26/20 00:49 93 18 152/98 98 07/25/20 22:15 106 H 20 147/89 98 07/25/20 18:06 18 0405/21 13:15 98.1 F 124 H 18 Intake and Output 07/25/20 07/26/20 07/26/20 22:59 06:59 14:59 Intake Total 100 Balance 100 Intake: Intake, IV Titration 100 Amount Heparin Sod,Pork in 0.45% 100 NaCl 25,000 unit In 0.45 % NaCl 1 250ml.bag @ 6. 484 UNITS/KG/HR 10 mls/hr IV .Q24H [facility] Rx#: [id number] Results 07/25/20 13:44 07/25/20 13:44 Cardiac Enzymes 07/25/20 07/25/20 07/26/20 Range/Units 13:44 13:44 09:54 AST 29 (17-59) U/L Troponin I <0.012 <0.012 (0.000-0.034) ng/mL Coagulation 07/25/20 07/26/20 Range/Units 13:44 01:03 PT 10.0 (9.0-12.0) sec APTT 21.4 L 24.6 (22.0-30.0) sec CBC 07/25/20 Range/Units 13:44 WBC 7.7 (3.8-10.6) k/uL RBC 5.85 (4.30-5.90) m/uL Hgb 17.4 (13.0-17.5) gm/dL Hct 48.4 (39.0-53.0) % Plt Count 191 (150-450) k/uL Comprehensive Metabolic Panel 07/25/20 Range/Units 13:44 Sodium 132 L (137-145) mmol/L Potassium 4.1 (3.5-5.1) mmol/L Chloride 98 (98-107) mmol/L Carbon Dioxide 21 L (22-30) mmol/L BUN 18 (9-20) mg/dL Creatinine 0.74 (0.66-1.25) mg/dL Glucose 446 H (74-99) mg/dL Calcium 9.1 (8.4-10.2) mg/dL AST 29 (17-59) U/L ALT 25 (4-49) U/L Alkaline Phosphatase 153 H (38-126) U/L Total Protein 7.1 (6.3-8.2) g/dL Albumin 4.0 (3.5-5.0) g/dL Current Medications Generic Name Dose Route Start Last Admin Trade Name Freq PRN Reason Stop Dose Admin Aspirin 81 mg 07/26/20 09:00 07/26/20 10:41 Aspirin 81 Mg PO 81 mg DAILY KSENIA Administration Atorvastatin Calcium 80 mg 07/26/20 09:00 07/26/20 10:41 Atorvastatin 80 Mg Tab PO 80 mg DAILY KSENIA Administration Clopidogrel Bisulfate 75 mg 07/26/20 09:00 07/26/20 10:41 Clopidogrel 75 Mg Tab PO 75 mg DAILY KSENIA Administration Furosemide 80 mg 07/26/20 09:00 07/26/20 10:42 Furosemide 80 Mg Tab PO 80 mg DAILY KSENIA Administration Heparin Sodium (Porcine) 0 unit 07/25/20 17:50 07/26/20 05:21 Heparin Sodium 1,000 Un/Ml (10ml Vl) IV 7,711 unit PER PROTOCOL PRN Administration Low PTT Protocol Heparin Sodium/Sodium Chloride 250 mls @ 10 mls/hr 07/25/20 18:00 07/26/20 05:15 25,000 unit/ Sodium Chloride IV 9.484 units/kg/hr .Q24H KSENIA 14.626 mls/hr Titration Protocol 6.484 UNITS/KG/HR Ibuprofen 800 mg 07/26/20 11:46 Ibuprofen 800 Mg Tab PO QID PRN Pain Insulin Detemir 100 unit 07/26/20 21:00 Insulin Detemir (Levemir) 100 Unit/Ml Syr SQ BID@0700,2100 [facility] Losartan Potassium 100 mg 07/26/20 09:00 07/26/20 10:42 Losartan 50 Mg Tab PO 100 mg DAILY [facility] Administration Metoprolol Succinate 100 mg 07/26/20 09:00 07/26/20 10:42 Metoprolol Succinate (Er) 100 Mg Tab.Er.24h PO 100 mg DAILY KSENIA Administration Naloxone HCl 0.2 mg 07/25/20 17:39 Naloxone 0.4 Mg/Ml 1 Ml Vial IV Q2M PRN Opioid Reversal Nitroglycerin 0.4 mg 07/26/20 11:46 Nitroglycerin Sl Tabs 0.4 Mg Tab SUBLINGUAL Q5M PRN Chest Pain Spironolactone 25 mg 07/26/20 09:00 07/26/20 10:42 Spironolactone 25 Mg Tab PO 25 mg DAILY KSENIA Administration Intake and Output 07/25/20 07/26/20 07/26/20 22:59 06:59 14:59 Intake Total 100 Balance 100 Intake: Intake, IV Titration 100 Amount Heparin Sod,Pork in 0.45% 100 NaCl 25,000 unit In 0.45 % NaCl 1 250ml.bag @ 6. 484 UNITS/KG/HR 10 mls/hr IV .Q24H [facility] Rx#: [id number] 07/25/20 13:44 07/25/20 13:44
[2020-07-26 19:11] LABS: Glucose,Whole Blood 333 mg/dL (75-99)
[2020-07-26 20:29] LABS: Glucose,Whole Blood 346 mg/dL (75-99)
[2020-07-26] MEDS: INSULIN DETEMIR (LEVEMIR) 100 UNIT/ML SYR SQ SCH (21:41)
--- NOTE | 2020-07-26 22:55 | HP ---
HISTORY AND PHYSICAL CHIEF COMPLAINT: Chest pain. HISTORY OF PRESENT ILLNESS: This is another admission for this 40-year-old Latin male who has a longstanding history of severe coronary artery disease, congestive heart failure and uncontrolled diabetes mellitus. He does not follow up and does not take medications regularly. He presented to the emergency room with chest pain and was admitted. Troponins were normal. REVIEW OF SYSTEMS: He denies syncope, neurologic problems, cough, hemoptysis, orthopnea, PND, abdominal pain, nausea, vomiting, diarrhea, melena, renal failure, dysuria, incontinence, nocturia, etc. Past medical history, family history, and personal and social histories are all unchanged from his recent admitting and discharge summaries. He has had prior infarctions and multiple procedures by Cardiology for his coronary artery disease. He also has an ICD. It is not known what medications he is actually taking. PHYSICAL EXAMINATION: Blood pressure is 146/90 with a pulse of 88, respirations of 35. He is afebrile. In general he appeared to be obese and in no acute distress. Skin color was normal and skin was warm and dry. Lymph nodes are not enlarged. Head, ears, eyes, nose, mouth and throat were normal. Neck veins were not distended. The chest was clear. Cardiac exam demonstrated normal sinus rhythm with no murmurs or extra sounds. Abdomen was protuberant, soft and nontender without any visceromegaly or masses. Bowel sounds were present. Extremities were normal. Neurologically he was intact. He is admitted to the hospital with the diagnoses: 1. Unstable angina pectoris. 2. History of coronary artery disease. 3. History of hypertension. 4. History of poorly controlled insulin-dependent diabetes mellitus. PLAN: 1. Bedrest. 2. IV fluids. 3. Serial EKGs and enzymes. 4. Cardiology consult. 5. Control diabetes. MMODL / IJN: [id number] /
--- NOTE | 2020-07-26 23:07 | PN ---
PROGRESS NOTE DATE OF SERVICE: 07/26/2020 CHIEF COMPLAINT: Unstable angina pectoris. HISTORY OF PRESENT ILLNESS: This gentleman is doing fairly well and has had no further chest pain. He is to be seen by Cardiology. PHYSICAL EXAMINATION: His chest is clear. Cardiac exam is normal. Abdomen is soft and nontender. IMPRESSION: 1. Unstable angina. 2. Coronary artery disease. 3. Hypertension. 4. Insulin-dependent diabetes mellitus. PLAN: Await cardiology evaluation. MMODL / IJN: [id number] /
[2020-07-27 07:44] LABS: Glucose,Whole Blood 256 mg/dL (75-99)
[2020-07-27] MEDS: INSULIN DETEMIR (LEVEMIR) 100 UNIT/ML SYR SQ SCH (08:24)
[2020-07-27] MEDS: ASPIRIN 81 MG PO SCH (08:28)
[2020-07-27] MEDS: ATORVASTATIN 80 MG TAB PO SCH (08:28)
[2020-07-27] MEDS: SPIRONOLACTONE 25 MG TAB PO SCH (08:28)
[2020-07-27] MEDS: CLOPIDOGREL 75 MG TAB PO SCH (08:28)
[2020-07-27] MEDS: FUROSEMIDE 80 MG TAB PO SCH (08:28)
[2020-07-27] MEDS: LOSARTAN 50 MG TAB PO SCH (08:28)
[2020-07-27] MEDS: METOPROLOL SUCCINATE (ER) 100 MG TAB.ER.24H PO SCH (08:39)
[2020-07-27 11:36] LABS: Glucose,Whole Blood 414 mg/dL (75-99)
[2020-07-27 15:07] VITALS: BP 146/114; PULSE 91; RESP 18; TEMP 97.8
--- NOTE | 2020-07-27 23:50 | DS ---
DISCHARGE SUMMARY CHIEF COMPLAINT: Chest pain and shortness of breath. HISTORY OF PRESENT ILLNESS AND PHYSICAL EXAMINATION: Details of this man's history and physical can be found in the initial workup. LABORATORY STUDIES: While he was in the hospital, he had laboratory studies, details of which can be found in the laboratory section of his chart. COURSE IN THE HOSPITAL: After admission, he was placed on bedrest on intravenous fluids and had serial EKGs and enzymes and they were normal. He was seen by Cardiology who felt that he could be discharged. He was admonished once again to take his medications properly including insulin. He will be contacted for followup after he leaves Hospital. FINAL DIAGNOSES: 1. Unstable angina pectoris. 2. Coronary artery disease. 3. Uncontrolled insulin-dependent diabetes mellitus. 4. Obesity. OPERATIONS: None. CONSULTATIONS: Cardiology. He is improved. MMSRAVANTHIL / PATITO: [id number] /
== END 2020-07-27 16:00 | disposition home or self-care (01) ==
LOC: EC 13:08 → 6NMEDSUR 18:00
PROVIDERS: ADMIT Family Medicine; ATTEND Family Medicine
DX: I25.110 Atherosclerotic heart disease of native coronary artery with unstable angina pectoris (principal); I25.5 Ischemic cardiomyopathy; I11.0 Hypertensive heart disease with heart failure; I50.22 Chronic systolic (congestive) heart failure; E11.65 Type 2 diabetes mellitus with hyperglycemia; E11.40 Type 2 diabetes mellitus with diabetic neuropathy, unspecified; E66.9 Obesity, unspecified; Z68.42 Body mass index [BMI] 45.0-49.9, adult; E78.5 Hyperlipidemia, unspecified; I25.2 Old myocardial infarction; G47.33 Obstructive sleep apnea (adult) (pediatric); G43.909 Migraine, unspecified, not intractable, without status migrainosus; G89.29 Other chronic pain; M54.9 Dorsalgia, unspecified; F41.9 Anxiety disorder, unspecified; F32.9 Major depressive disorder, single episode, unspecified; Z79.899 Other long term (current) drug therapy; Z79.82 Long term (current) use of aspirin; Z79.4 Long term (current) use of insulin; Z79.1 Long term (current) use of non-steroidal anti-inflammatories (NSAID); Z79.02 Long term (current) use of antithrombotics/antiplatelets; Z79.891 Long term (current) use of opiate analgesic; Z88.0 Allergy status to penicillin; Z99.89 Dependence on other enabling machines and devices; Z95.810 Presence of automatic (implantable) cardiac defibrillator; Z95.5 Presence of coronary angioplasty implant and graft; Z87.891 Personal history of nicotine dependence; Z82.49 Family history of ischemic heart disease and other diseases of the circulatory system; Z83.79 Family history of other diseases of the digestive system; Z20.822 Contact with and (suspected) exposure to COVID-19
CPT/HCPCS: 96376 ×2; 96365; 96366 ×2; 96361; 99285; 36415; 93005; 83880; 80053; 83735; 84484 ×2; 85025; 85610; 85730 ×2; 82272; 87635; 71046; G0378 ×3; C8929; J1644 ×3; Q9950; 93306

== ENCOUNTER 2021-01-24 19:30 | Emergency (ER) | payer OTHER ==
[2021-01-24 20:16] VITALS: BP 132/89; PULSE 119; RESP 20; TEMP 98.7
--- NOTE | 2021-01-24 20:37 | XR ---
EXAMINATION TYPE: XR ankle complete RT DATE OF EXAM: 01/24/2021 CLINICAL HISTORY: Pain and swelling. TECHNIQUE: Frontal, lateral and oblique images of the right ankle are obtained. COMPARISON: None. FINDINGS: There is no acute fracture/dislocation evident in the right ankle. The ankle mortise appe ars within normal limits. Mild swelling over the lateral malleolus. Vascular calcifications. Tiny plantar and posterior calcaneal spurs. IMPRESSION: Mild swelling over the lateral malleolus. There is no acute fracture or dislocation in t he right ankle.
--- NOTE | 2021-01-24 20:42 | XR ---
EXAMINATION TYPE: XR foot complete RT DATE OF EXAM: 01/24/2021 CLINICAL HISTORY: Pain. TECHNIQUE: Frontal, lateral, and oblique images of the right foot are obtained. COMPARISON: None FINDINGS: Soft tissue prominence of the dorsal foot. The Lisfranc joint appears widened compared to the contralateral foot. There is no acute fracture/dislocation evident in the right foot. Small plant ar and posterior calcaneal spurs. Os trigonum. IMPRESSION: Soft tissue prominence of the dorsal foot. The Lisfranc joint appears widened compared t o the contralateral foot. Correlate for injury. CT may be considered if clinically warranted.
--- NOTE | 2021-01-24 22:01 | ED ---
Extremity Problem HPI - General Chief complaint: Extremity Problem,Nontraumatic Stated complaint: R foot pain Time Seen by Provider: 01/24/21 21:02 Source: patient, RN notes reviewed Mode of arrival: wheelchair Limitations: no limitations - History of Present Illness Initial comments: This a 40-year-old male presents emergency Department with chief complaint of right foot pain. Patient states started after 4 hour hike with his kids over the weekend. He states he is starting stepped wrong states is progressively worsen including swelling and redness to his foot. He states he has neuropathy of his foot and is unsure why he has increasing pain denies any lesions sores. Patient denies falling. Patient initially discussed the when he stepped wrong and he states there was a long walk for his larger body habitus. Patient denies any other complaints. - Related Data Home Medications Medication Instructions Recorded Confirmed Aspirin EC [Ecotrin Low Dose] 81 mg PO DAILY 10/13/18 07/25/20 metFORMIN HCL [Glucophage] 1,000 mg PO DAILY 06/14/19 07/25/20 INSULIN ASPART (NovoLOG) [NovoLOG 20 - 30 unit SQ AC-TID 03/31/20 07/25/20 (formulary)] Insulin Glargine,Hum.rec.anlog 100 unit SQ BID 03/31/20 07/25/20 [Lantus Solostar Pen] Losartan Potassium 100 mg PO DAILY 03/31/20 07/25/20 Atorvastatin [Lipitor] 80 mg PO DAILY 07/25/20 07/25/20 Ergocalciferol (Vitamin D2) 1,250 mcg PO FR 07/25/20 07/25/20 [Drisdol (50,000 Iu)] Furosemide [Lasix] 80 mg PO DAILY 07/25/20 07/25/20 Nitroglycerin Sl Tabs [Nitrostat] 0.4 mg SUBLINGUAL Q5M PRN 07/25/20 07/25/20 Previous Rx's Medication Instructions Recorded Clopidogrel [Plavix] 75 mg PO DAILY #90 tab 04/01/20 Spironolactone [Aldactone] 25 mg PO DAILY #30 tab 04/01/20 Metoprolol Succinate (ER) [Toprol 100 mg PO DAILY tab.er.24h 07/26/20 XL] Allergies Allergy/AdvReac Type Severity Reaction Status Date / Time Penicillins Allergy Unknown Verified 01/24/21 20:16 Childhood Review of Systems ROS Statement: Those systems with pertinent positive or pertinent negative responses have been documented in the HPI. ROS Other: All systems not noted in ROS Statement are negative. Past Medical History Past Medical History: Coronary Artery Disease (CAD), Chest Pain / Angina, Heart Failure, Diabetes Mellitus, Hyperlipidemia, Hypertension, Myocardial Infarction (PR), Sleep Apnea/CPAP/BIPAP, Syncope Additional Past Medical History / Comment(s): Cardiiomyopathy with AICD, IDDM type II, neuropathy bilateral feet, SP with Cpap use, migraines, chronic back pain. Last Myocardial Infarction Date:: 2015 History of Any Multi-Drug Resistant Organisms: None Reported Past Surgical History: AICD, Heart Catheterization, Heart Catheterization With Stent Additional Past Surgical History / Comment(s): 10/27/12 AICD, DFTs, PCI with stent Past Anesthesia/Blood Transfusion Reactions: No Reported Reaction Date of Last Stent Placement:: 02/03/16 Type of Cardiac Device: AICD Device Placement Date:: 2012 Past Psychological History: Anxiety, Depression Smoking Status: Former smoker Past Alcohol Use History: None Reported Past Drug Use History: None Reported - Past Family History Mother Family Medical History: No Reported History Additional Family Medical History / Comment(s): Mother is healthy Brother(s) Family Medical History: Myocardial Infarction (PR) Additional Family Medical History / Comment(s): Brother of a PR at the age of 35yrs. Father Family Medical History: Liver Disease Additional Family Medical History / Comment(s): Father when pt was 19 yrs old from liver disease. He was an alcoholic. General Exam Limitations: no limitations General appearance: alert, in no apparent distress Head exam: Present: atraumatic, normocephalic, normal inspection Neck exam: Present: normal inspection, full ROM. Absent: tenderness, meningismus, lymphadenopathy Respiratory exam: Present: normal lung sounds bilaterally. Absent: respiratory distress, wheezes, rales, rhonchi, stridor Cardiovascular Exam: Present: regular rate, normal rhythm, normal heart sounds. Absent: systolic murmur, diastolic murmur, rubs, gallop, clicks Extremities exam: Present: other (Right foot there is swelling, mild redness, tenderness palpation, neurovascular intact no proximal tib-fib tenderness no Tenderness) Course Vital Signs 01/24/21 20:13 Temperature 98.7 F Pulse Rate 119 H Respiratory 20 Rate Blood Pressure 132/89 O2 Sat by Pulse 95 Oximetry Procedures - Orthopedic Splinting/Casting Injury #1 Side: right Lower Extremity Injury Location: short leg, foot Lower Extremity Immobilizer: posterior splint Other Orthopedic Equipment: crutches Medical Decision Making - Medical Decision Making CT shows evidence of tarsal fracture of the foot. There is no evidence of Lisfranc on CT. Patient will be discharged with close follow-up. Disposition Clinical Impression: Fracture of tarsal bone of right foot Disposition: HOME SELF-CARE Condition: Stable Instructions (If sedation given, give patient instructions): Foot Fracture in Adults (ED) Additional Instructions: Please return to the Emergency Department if symptoms worsen or any other concerns. Is patient prescribed a controlled substance at d/c from ED?: No Referrals: Amrit Dan MD [Primary Care Provider] - 1-2 days Juan Mary MD [STAFF PHYSICIAN] - 1-2 days Time of Disposition: 23:06
[2021-01-24] MEDS ORDERED: KETOROLAC 15 MG/ML 1 ML VIAL IM STA (22:42)
--- NOTE | 2021-01-24 22:58 | CT ---
EXAMINATION TYPE: CT foot RT wo con DATE OF EXAM: 01/24/2021 COMPARISON: HISTORY: right foot pain and swelling with no known injury CT DLP: 71.5 mGycm Automated exposure control for dose reduction was used. Images obtained from the distal tibia to the bottom of the foot without contrast. There is subcutaneous edema on the dorsum of the foot. The metatarsals are intact. There is some haley phous calcification anterior to the cuneiform bones of the midfoot. There is plantar and Achilles ravi caneal spurring. I see no fracture line. There is no focal bone destruction. There is small focus of osteochondral defect in the lateral dome of the talus consistent with a osteo chondritis dissecans. This measures 4 mm. The distal tibia and fibula appear intact. There is apparen t intra-articular fracture of the first cuneiform bone with the articulation with the navicular. Ther e are small fracture fragments measuring up to 7 mm. IMPRESSION: Soft tissue swelling around the mid foot. Calcaneal spurring. Small comminuted intra-articular chip fractures of the first cuneiform bone at the navicular cuneifor m joint. Amorphous soft tissue calcification on the dorsum of the midfoot. No evidence of osteomyelitis. 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
[2021-01-24] MEDS ORDERED: ACET/COD 300 MG/30 MG STARTER PACK 6 TAB BTL PO STA (23:14)
== END 2021-01-24 23:22 | disposition home or self-care (01) ==
LOC: EC 19:30
DX: S92.241A Displaced fracture of medial cuneiform of right foot, initial encounter for closed fracture (principal); E11.40 Type 2 diabetes mellitus with diabetic neuropathy, unspecified; I11.0 Hypertensive heart disease with heart failure; I50.9 Heart failure, unspecified; I25.10 Atherosclerotic heart disease of native coronary artery without angina pectoris; I25.2 Old myocardial infarction; Z79.4 Long term (current) use of insulin; Z79.82 Long term (current) use of aspirin; Z79.899 Other long term (current) drug therapy; Z87.891 Personal history of nicotine dependence; Z95.5 Presence of coronary angioplasty implant and graft; Z95.810 Presence of automatic (implantable) cardiac defibrillator; Z88.0 Allergy status to penicillin; X58.XXXA Exposure to other specified factors, initial encounter
CPT/HCPCS: 73610; 73630; 73700; 99284; 29515; 96372; J1885

== ENCOUNTER 2021-03-05 14:31 | Emergency (ER) | payer OTHER ==
[2021-03-05 15:08] VITALS: TEMP 97.3
--- NOTE | 2021-03-05 16:48 | ED ---
General Adult HPI - General Chief complaint: Shortness of Breath Stated complaint: Weakness,DEANNA,Congestion Time Seen by Provider: 03/05/21 16:33 Source: patient, RN notes reviewed, old records reviewed Mode of arrival: ambulatory Limitations: no limitations - History of Present Illness Initial comments: This is a well-appearing 41-year-old male, alert and oriented 4, presents to the emergency room with complaints of weakness, chest pain and difficulty in breathing that started when he woke this morning at 8 AM. Patient states that he went back to bed and awoke again at noon feeling the same way. He states he also has a left earache. He denies any sick contacts. He states that the chest pain is 3 out of 10 and it felt like a pressure and tightness. It has resolved at this time. He did have some nausea which has also resolved. He denies any vomiting or diarrhea. Patient has a history of coronary artery disease, angina, hypertension, AICD, cardiac catheterizations, hypertension, insulin-dependent diabetes, heart failure, hypercholesterolemia. -: hour(s) (8) Location: chest Radiation: non-radiation Severity scale (1-10): 3 Quality: other (pressure) Consistency: now resolved Worsens with: none Associated Symptoms: chest pain, nausea/vomiting, shortness of breath, weakness Treatments Prior to Arrival: none - Related Data Home Medications Medication Instructions Recorded Confirmed Aspirin EC [Ecotrin Low Dose] 81 mg PO DAILY 10/13/18 03/05/21 metFORMIN HCL [Glucophage] 1,000 mg PO DAILY 06/14/19 03/05/21 Atorvastatin [Lipitor] 80 mg PO DAILY 07/25/20 03/05/21 Furosemide [Lasix] 80 mg PO DAILY 07/25/20 03/05/21 Nitroglycerin Sl Tabs [Nitrostat] 0.4 mg SL Q5M PRN 07/25/20 03/05/21 HYDROcodone/APAP 5-325MG [[place] 1 tab PO Q6H PRN 03/05/21 03/05/21 5-325] Ibuprofen [Motrin] 800 mg PO QID PRN 03/05/21 03/05/21 Insulin NPH Hum/Reg Insulin Hm 60 unit SQ DAILY 03/05/21 03/05/21 [humuLIN 70/30 Kwikpen] Sacubitril/Valsartan [Entresto 24 1 tab PO BID 03/05/21 03/05/21 mg-26 mg Tablet] Previous Rx's Medication Instructions Recorded Clopidogrel [Plavix] 75 mg PO DAILY #90 tab 04/01/20 Spironolactone [Aldactone] 25 mg PO DAILY #30 tab 04/01/20 Metoprolol Succinate (ER) [Toprol 100 mg PO DAILY tab.er.24h 07/26/20 XL] Allergies Allergy/AdvReac Type Severity Reaction Status Date / Time Penicillins Allergy Unknown Verified 03/05/21 20:41 Childhood Review of Systems ROS Statement: Those systems with pertinent positive or pertinent negative responses have been documented in the HPI. ROS Other: All systems not noted in ROS Statement are negative. Past Medical History Past Medical History: Coronary Artery Disease (CAD), Chest Pain / Angina, Heart Failure, Diabetes Mellitus, Hyperlipidemia, Hypertension, Myocardial Infarction ([place]), Sleep Apnea/CPAP/BIPAP, Syncope Additional Past Medical History / Comment(s): Cardiiomyopathy with AICD, IDDM type II, neuropathy bilateral feet, SP with Cpap use, migraines, chronic back pain. Last Myocardial Infarction Date:: 2015 History of Any Multi-Drug Resistant Organisms: None Reported Past Surgical History: AICD, Heart Catheterization, Heart Catheterization With Stent Additional Past Surgical History / Comment(s): 10/27/12 AICD, DFTs, PCI with stent Past Anesthesia/Blood Transfusion Reactions: No Reported Reaction Date of Last Stent Placement:: 02/03/16 Type of Cardiac Device: AICD Device Placement Date:: 2012 Past Psychological History: Anxiety, Depression Smoking Status: Former smoker Past Alcohol Use History: None Reported Past Drug Use History: None Reported - Past Family History Mother Family Medical History: No Reported History Additional Family Medical History / Comment(s): Mother is healthy Brother(s) Family Medical History: Myocardial Infarction ([place]) Additional Family Medical History / Comment(s): Brother of a IN at the age of 35yrs. Father Family Medical History: Liver Disease Additional Family Medical History / Comment(s): Father when pt was 19 yrs old from liver disease. He was an alcoholic. General Exam Limitations: no limitations General appearance: alert, in no apparent distress Head exam: Present: atraumatic, normocephalic, normal inspection Eye exam: Present: normal appearance, EOMI ENT exam: Present: normal exam, normal oropharynx, mucous membranes moist, TM's normal bilaterally. Absent: other (Abrasion to the external canal left ear) Neck exam: Present: normal inspection, full ROM. Absent: tenderness, meningismus, lymphadenopathy, thyromegaly Respiratory exam: Present: normal lung sounds bilaterally. Absent: respiratory distress, wheezes, rales, rhonchi, stridor, chest wall tenderness, accessory muscle use, decreased breath sounds Cardiovascular Exam: Present: tachycardia. Absent: JVD GI/Abdominal exam: Present: soft, normal bowel sounds. Absent: distended, tenderness, guarding, rebound, rigid Extremities exam: Present: normal inspection, full ROM, normal capillary refill. Absent: tenderness, pedal edema, joint swelling, calf tenderness Back exam: Present: normal inspection. Absent: tenderness, CVA tenderness (R), CVA tenderness (L), rash noted Neurological exam: Present: alert, oriented X3, normal gait Psychiatric exam: Present: normal affect, normal mood Skin exam: Present: warm, dry, intact, normal color. Absent: rash, cyanosis, diaphoretic, petechiae, pallor Course Vital Signs 03/05/21 03/05/21 03/05/21 15:05 17:00 17:30 Temperature 97.3 F L Pulse Rate 123 H 74 75 Respiratory 20 18 18 Rate Blood Pressure 120/84 129/91 125/86 O2 Sat by Pulse 92 L 94 L 94 L Oximetry 03/05/21 19:00 Temperature Pulse Rate 75 Respiratory 18 Rate Blood Pressure 117/68 O2 Sat by Pulse 94 L Oximetry EKG Findings - EKG Results: EKG: no acute changes, not changed from: (07/25/20) EKG shows: tachycardia (Ventricular rate of 113, NE interval 0.152, QRS 0.116, QTC 0.480) Medical Decision Making - Medical Decision Making Patient presents to the emergency room with complaints of feeling weak, short of breath and earache that started this morning when he got out of bed at 8:00. Patient states he did not take his insulin this morning. He takes Humulin 70/30, 30 units in the morning and 30 units in the evening. He is supposed to take twice a day and he has not been taking it that way. His blood glucose was 426. His carbon dioxide level 17, anion gap is 15. He has 1+ ketones in urine. Patient was given 500 mL bolus and 10 units of IV regular insulin. Coronavirus test is negative. His troponin is negative at 0.012. EKG shows no changes no ST elevation. Chest x-ray is negative for any acute cardiopulmonary process. There is no evidence of leukocytosis. Patient is Covid negative. This is likel y the effects of hyperglycemia and the patient's noncompliance with his insulin. Patient has had no complaints of chest pain or difficulty breathing while in the emergency room. Patient's repeat labs show carbon monoxide level improved to 23, anion gap normal. He was directed to go home and take his medications and follow-up with his doctor tomorrow. Return to the emergency room with any new or worsening symptoms. He'll be directed to take his medications as prescribed and follow-up with his primary care doctor tomorrow. I did discuss the case with Dr. Rodriguez. - Lab Data Result diagrams: 03/05/21 17:12 03/05/21 21:17 Lab Results 03/05/21 03/05/21 03/05/21 Range/Units 15:11 17:12 17:12 WBC 10.2 (3.8-10.6) k/uL RBC 5.50 (4.30-5.90) m/uL Hgb 16.3 (13.0-17.5) gm/dL Hct 45.7 (39.0-53.0) % MCV 83.2 (80.0-100.0) fL MCH 29.7 (25.0-35.0) pg MCHC 35.6 (31.0-37.0) g/dL RDW 14.0 (11.5-15.5) % Plt Count 272 (150-450) k/uL MPV 7.9 Neutrophils % 77 % Lymphocytes % 16 % Monocytes % 4 % Eosinophils % 1 % Basophils % 1 % Neutrophils # 7.8 H (1.3-7.7) k/uL Lymphocytes # 1.6 (1.0-4.8) k/uL Monocytes # 0.4 (0-1.0) k/uL Eosinophils # 0.1 (0-0.7) k/uL Basophils # 0.1 (0-0.2) k/uL Hyperchromasia Slight PT 9.7 (9.0-12.0) sec INR 0.9 (<1.2) APTT 22.6 (22.0-30.0) sec D-Dimer 0.61 H (<0.60) mg/L FEU Sodium (137-145) mmol/L Potassium (3.5-5.1) mmol/L Chloride (98-107) mmol/L Carbon Dioxide (22-30) mmol/L Anion Gap mmol/L BUN (9-20) mg/dL Creatinine (0.66-1.25) mg/dL Est GFR (CKD-EPI)AfAm (>60 ml/min/1.73 sqM) Est GFR (CKD-EPI)NonAf (>60 ml/min/1.73 sqM) Glucose (74-99) mg/dL POC Glucose (mg/dL) (75-99) mg/dL POC Glu Certified Meeting Professional ID Plasma Lactic Acid Deshawn (0.7-2.0) mmol/L Calcium (8.4-10.2) mg/dL Magnesium (1.6-2.3) mg/dL Total Bilirubin (0.2-1.3) mg/dL AST (17-59) U/L ALT (4-49) U/L Alkaline Phosphatase (38-126) U/L Troponin I (0.000-0.034) ng/mL NT-Pro-B Natriuret Pep pg/mL Total Protein (6.3-8.2) g/dL Albumin (3.5-5.0) g/dL Urine Color Urine Appearance (Clear) Urine pH (5.0-8.0) Ur Specific [place] (1.001-1.035) Urine Protein (Negative) Urine Glucose (UA) (Negative) Urine Ketones (Negative) Urine Blood (Negative) Urine Nitrite (Negative) Urine Bilirubin (Negative) Urine Urobilinogen (<2.0) mg/dL Ur Leukocyte Esterase (Negative) Coronavirus (PCR) Not Detected (Not Detectd) 03/05/21 03/05/21 03/05/21 Range/Units 17:12 17:12 17:12 WBC (3.8-10.6) k/uL RBC (4.30-5.90) m/uL Hgb (13.0-17.5) gm/dL Hct (39.0-53.0) % MCV (80.0-100.0) fL MCH (25.0-35.0) pg MCHC (31.0-37.0) g/dL RDW (11.5-15.5) % Plt Count (150-450) k/uL MPV Neutrophils % % Lymphocytes % % Monocytes % % Eosinophils % % Basophils % % Neutrophils # (1.3-7.7) k/uL Lymphocytes # (1.0-4.8) k/uL Monocytes # (0-1.0) k/uL Eosinophils # (0-0.7) k/uL Basophils # (0-0.2) k/uL Hyperchromasia PT (9.0-12.0) sec INR (<1.2) APTT (22.0-30.0) sec D-Dimer (<0.60) mg/L FEU Sodium 132 L (137-145) mmol/L Potassium 4.4 (3.5-5.1) mmol/L Chloride 100 (98-107) mmol/L Carbon Dioxide 17 L (22-30) mmol/L Anion Gap 15 mmol/L BUN 13 (9-20) mg/dL Creatinine 0.65 L (0.66-1.25) mg/dL Est GFR (CKD-EPI)AfAm >90 (>60 ml/min/1.73 sqM) Est GFR (CKD-EPI)NonAf >90 (>60 ml/min/1.73 sqM) Glucose 426 H (74-99) mg/dL POC Glucose (mg/dL) (75-99) mg/dL POC Glu Certified Meeting Professional ID Plasma Lactic Acid Deshawn 1.8 (0.7-2.0) mmol/L Calcium 8.9 (8.4-10.2) mg/dL Magnesium 1.9 (1.6-2.3) mg/dL Total Bilirubin 1.1 (0.2-1.3) mg/dL AST 24 (17-59) U/L ALT 18 (4-49) U/L Alkaline Phosphatase 171 H (38-126) U/L Troponin I (0.000-0.034) ng/mL NT-Pro-B Natriuret Pep pg/mL Total Protein 7.3 (6.3-8.2) g/dL Albumin 4.1 (3.5-5.0) g/dL Urine Color Light Yellow Urine Appearance Clear (Clear) Urine pH 5.0 (5.0-8.0) Ur Specific [place] 1.013 (1.001-1.035) Urine Protein Negative (Negative) Urine Glucose (UA) 4+ H (Negative) Urine Ketones 1+ H (Negative) Urine Blood Negative (Negative) Urine Nitrite Negative (Negative) Urine Bilirubin Negative (Negative) Urine Urobilinogen <2.0 (<2.0) mg/dL Ur Leukocyte Esterase Negative (Negative) Coronavirus (PCR) (Not Detectd) 03/05/21 03/05/21 03/05/21 Range/Units 17:12 17:12 18:15 WBC (3.8-10.6) k/uL RBC (4.30-5.90) m/uL Hgb (13.0-17.5) gm/dL Hct (39.0-53.0) % MCV (80.0-100.0) fL MCH (25.0-35.0) pg MCHC (31.0-37.0) g/dL RDW (11.5-15.5) % Plt Count (150-450) k/uL MPV Neutrophils % % Lymphocytes % % Monocytes % % Eosinophils % % Basophils % % Neutrophils # (1.3-7.7) k/uL Lymphocytes # (1.0-4.8) k/uL Monocytes # (0-1.0) k/uL Eosinophils # (0-0.7) k/uL Basophils # (0-0.2) k/uL Hyperchromasia PT (9.0-12.0) sec INR (<1.2) APTT (22.0-30.0) sec D-Dimer (<0.60) mg/L FEU Sodium (137-145) mmol/L Potassium (3.5-5.1) mmol/L Chloride (98-107) mmol/L Carbon Dioxide (22-30) mmol/L Anion Gap mmol/L BUN (9-20) mg/dL Creatinine (0.66-1.25) mg/dL Est GFR (CKD-EPI)AfAm (>60 ml/min/1.73 sqM) Est GFR (CKD-EPI)NonAf (>60 ml/min/1.73 sqM) Glucose (74-99) mg/dL POC Glucose (mg/dL) 363 H (75-99) mg/dL POC Glu Certified Meeting Professional June Barboza Plasma Lactic Acid Deshawn (0.7-2.0) mmol/L Calcium (8.4-10.2) mg/dL Magnesium (1.6-2.3) mg/dL Total Bilirubin (0.2-1.3) mg/dL AST (17-59) U/L ALT (4-49) U/L Alkaline Phosphatase (38-126) U/L Troponin I <0.012 (0.000-0.034) ng/mL NT-Pro-B Natriuret Pep 205 pg/mL Total Protein (6.3-8.2) g/dL Albumin (3.5-5.0) g/dL Urine Color Urine Appearance (Clear) Urine pH (5.0-8.0) Ur Specific [place] (1.001-1.035) Urine Protein (Negative) Urine Glucose (UA) (Negative) Urine Ketones (Negative) Urine Blood (Negative) Urine Nitrite (Negative) Urine Bilirubin (Negative) Urine Urobilinogen (<2.0) mg/dL Ur Leukocyte Esterase (Negative) Coronavirus (PCR) (Not Detectd) 03/05/21 03/05/21 Range/Units 20:28 21:17 WBC (3.8-10.6) k/uL RBC (4.30-5.90) m/uL Hgb (13.0-17.5) gm/dL Hct (39.0-53.0) % MCV (80.0-100.0) fL MCH (25.0-35.0) pg MCHC (31.0-37.0) g/dL RDW (11.5-15.5) % Plt Count (150-450) k/uL MPV Neutrophils % % Lymphocytes % % Monocytes % % Eosinophils % % Basophils % % Neutrophils # (1.3-7.7) k/uL Lymphocytes # (1.0-4.8) k/uL Monocytes # (0-1.0) k/uL Eosinophils # (0-0.7) k/uL Basophils # (0-0.2) k/uL Hyperchromasia PT (9.0-12.0) sec INR (<1.2) APTT (22.0-30.0) sec D-Dimer (<0.60) mg/L FEU Sodium 135 L 132 L (137-145) mmol/L Potassium 2.8 L 4.2 (3.5-5.1) mmol/L Chloride 111 H 100 (98-107) mmol/L Carbon Dioxide 18 L 23 (22-30) mmol/L Anion Gap 6 9 mmol/L BUN 9 12 (9-20) mg/dL Creatinine 0.45 L 0.68 (0.66-1.25) mg/dL Est GFR (CKD-EPI)AfAm >90 >90 (>60 ml/min/1.73 sqM) Est GFR (CKD-EPI)NonAf >90 >90 (>60 ml/min/1.73 sqM) Glucose 316 H 386 H (74-99) mg/dL POC Glucose (mg/dL) (75-99) mg/dL POC Glu Certified Meeting Professional ID Plasma Lactic Acid Deshawn (0.7-2.0) mmol/L Calcium 5.8 L* 8.8 (8.4-10.2) mg/dL Magnesium (1.6-2.3) mg/dL Total Bilirubin (0.2-1.3) mg/dL AST (17-59) U/L ALT (4-49) U/L Alkaline Phosphatase (38-126) U/L Troponin I (0.000-0.034) ng/mL NT-Pro-B Natriuret Pep pg/mL Total Protein (6.3-8.2) g/dL Albumin (3.5-5.0) g/dL Urine Color Urine Appearance (Clear) Urine pH (5.0-8.0) Ur Specific [place] (1.001-1.035) Urine Protein (Negative) Urine Glucose (UA) (Negative) Urine Ketones (Negative) Urine Blood (Negative) Urine Nitrite (Negative) Urine Bilirubin (Negative) Urine Urobilinogen (<2.0) mg/dL Ur Leukocyte Esterase (Negative) Coronavirus (PCR) (Not Detectd) Disposition Clinical Impression: DKA (diabetic ketoacidosis) Disposition: HOME SELF-CARE Condition: Good Instructions (If sedation given, give patient instructions): Diabetic Ketoacidosis (DC) Additional Instructions: Continue taking his insulin as prescribed. Follow-up with your primary care doctor tomorrow. Return to the emergency room with any new or worsening symptoms. Is patient prescribed a controlled substance at d/c from ED?: No Referrals: Amrit Dan MD [Primary Care Provider] - 1-2 days Time of Disposition: 22:38
--- NOTE | 2021-03-05 17:05 | XR ---
EXAMINATION TYPE: XR chest 2V DATE OF EXAM: 03/05/2021 COMPARISON: Radiograph 07/25/2020 HISTORY: Shortness of breath and weakness TECHNIQUE: Frontal and lateral views of the chest are obtained. FINDINGS: There is no focal air space opacity, pleural effusion, or pneumothorax seen. The cardiac silhouette size is within normal limits. The osseous structures are intact. Left chest wall generator device with the lead tip in the ventricle. IMPRESSION: No acute cardiopulmonary process.
[2021-03-05 17:24] LABS: Appearance,Urine Clear (Clear); Bilirubin,Urine Negative (Negative); Blood,Urine Negative (Negative); Color,Urine Light Yellow; Glucose,Urine (UA) 4+ (Negative); Ketones,Urine 1+ (Negative); Leukocyte Esterase,Urine Negative (Negative); Nitrite,Urine Negative (Negative); Protein,Urine Negative (Negative); Specific Gravity,Urine 1.013 (1.001-1.035); Urobilinogen,Urine <2.0 mg/dL (<2.0)
[2021-03-05 17:37] LABS: ALT 18 U/L (4-49); AST 24 U/L (17-59); African American GFR (CKD) >90 (>60 ml/min/1.73 sqM); Albumin 4.1 g/dL (3.5-5.0); Alkaline Phosphatase 171 U/L (38-126); Anion Gap 15 mmol/L; Blood Urea Nitrogen 13 mg/dL (9-20); Calcium 8.9 mg/dL (8.4-10.2); Carbon Dioxide 17 mmol/L (22-30); Chloride 100 mmol/L (98-107); Glucose 426 mg/dL (74-99); Magnesium 1.9 mg/dL (1.6-2.3); Non-African American GFR(CKD) >90 (>60 ml/min/1.73 sqM); Potassium 4.4 mmol/L (3.5-5.1); Sodium 132 mmol/L (137-145); Total Bilirubin 1.1 mg/dL (0.2-1.3); Total Protein 7.3 g/dL (6.3-8.2)
[2021-03-05 17:41] LABS: INR 0.9 (<1.2); Partial Thromboplastin Time 22.6 sec (22.0-30.0); Prothrombin Time 9.7 sec (9.0-12.0)
[2021-03-05] MEDS ORDERED: SODIUM CHLORIDE 0.9% 500 ML 500 ML IV ONE (17:42)
[2021-03-05] MEDS ORDERED: INSULIN REGULAR 100 UNIT/ML VIAL (IV) IV ONE ×2 (18:01→22:21)
[2021-03-05 18:05] VITALS: PULSE 75
[2021-03-05 18:09] LABS: Basophils # (A) 0.1 k/uL (0-0.2); Basophils % (A) 1 %; Eosinophils # (A) 0.1 k/uL (0-0.7); Eosinophils % (A) 1 %; HCT 45.7 % (39.0-53.0); HGB 16.3 gm/dL (13.0-17.5); Hyperchromasia Slight; Lymphocytes # (A) 1.6 k/uL (1.0-4.8); Lymphocytes % (A) 16 %; MCH 29.7 pg (25.0-35.0); MCHC 35.6 g/dL (31.0-37.0); MCV 83.2 fL (80.0-100.0); Mean Platelet Volume 7.9; Monocytes # (A) 0.4 k/uL (0-1.0); Monocytes % (A) 4 %; Neutrophils # (A) 7.8 k/uL (1.3-7.7); Neutrophils % (A) 77 %; Platelet Count 272 k/uL (150-450); WBC 10.2 k/uL (3.8-10.6)
[2021-03-05 18:16] LABS: Glucose,Whole Blood 363 mg/dL (75-99)
[2021-03-05 20:52] LABS: African American GFR (CKD) >90 (>60 ml/min/1.73 sqM); Anion Gap 6 mmol/L; Blood Urea Nitrogen 9 mg/dL (9-20); Carbon Dioxide 18 mmol/L (22-30); Chloride 111 mmol/L (98-107); Glucose 316 mg/dL (74-99); Non-African American GFR(CKD) >90 (>60 ml/min/1.73 sqM); Potassium 2.8 mmol/L (3.5-5.1); Sodium 135 mmol/L (137-145)
[2021-03-05 20:57] LABS: Calcium 5.8 mg/dL (8.4-10.2)
[2021-03-05 21:42] LABS: African American GFR (CKD) >90 (>60 ml/min/1.73 sqM); Anion Gap 9 mmol/L; Blood Urea Nitrogen 12 mg/dL (9-20); Calcium 8.8 mg/dL (8.4-10.2); Carbon Dioxide 23 mmol/L (22-30); Chloride 100 mmol/L (98-107); Glucose 386 mg/dL (74-99); Non-African American GFR(CKD) >90 (>60 ml/min/1.73 sqM); Potassium 4.2 mmol/L (3.5-5.1); Sodium 132 mmol/L (137-145)
[2021-03-06 01:03] VITALS: BP 134/80; RESP 17
== END 2021-03-06 01:05 | disposition home or self-care (01) ==
LOC: EC 14:31
DX: E11.10 Type 2 diabetes mellitus with ketoacidosis without coma (principal); I11.0 Hypertensive heart disease with heart failure; I50.9 Heart failure, unspecified; I25.2 Old myocardial infarction; E78.5 Hyperlipidemia, unspecified; I25.10 Atherosclerotic heart disease of native coronary artery without angina pectoris; Z88.0 Allergy status to penicillin; Z20.822 Contact with and (suspected) exposure to COVID-19; Z79.4 Long term (current) use of insulin; Z79.899 Other long term (current) drug therapy; Z79.82 Long term (current) use of aspirin
CPT/HCPCS: 36415; 71046; 80048; 80053; 81003; 83605; 83735; 83880; 84484; 85025; 85379; 85610; 85730; 87635; 93005; 96361; 96374; 96376; 99285

== ENCOUNTER 2021-03-17 16:41 | Observation (INO) | payer OTHER ==
--- NOTE | 2021-03-17 19:01 | XR ---
EXAMINATION TYPE: XR chest 2V DATE OF EXAM: 03/17/2021 COMPARISON: 03/05/2021 HISTORY: Cough TECHNIQUE: 2 views FINDINGS: Heart and mediastinum are normal. Lungs are clear. Diaphragm is normal. Bony thorax appears normal. IMPRESSION: Normal chest. No change.
--- NOTE | 2021-03-17 19:14 | ED ---
General Adult HPI - General Chief complaint: Upper Respiratory Infection Stated complaint: chest pain Time Seen by Provider: 03/17/21 18:08 Source: patient Mode of arrival: ambulatory Limitations: no limitations - History of Present Illness Initial comments: 41-year-old male with a past medical history of CAD, heart failure, diabetes mellitus, hyperlipidemia, hypertension, [place], AICD presents to the emergency room for chest pressure. Patient states for the past week or so he has had a pressure in his chest. States today it started to be a sharp pressure in the chest that radiated to the left shoulder. Patient does also for cough and congestion but states that is improving. His chest pressure however has not improved. He has not had any fevers.Patient has no other complaints at this time including shortness of breath, chest pain, abdominal pain, nausea or vomiting, headache, or visual changes. - Related Data Home Medications Medication Instructions Recorded Confirmed Aspirin EC [Ecotrin Low Dose] 81 mg PO DAILY 10/13/18 03/17/21 metFORMIN HCL [Glucophage] 1,000 mg PO DAILY 06/14/19 03/17/21 Atorvastatin [Lipitor] 80 mg PO DAILY 07/25/20 03/17/21 Furosemide [Lasix] 80 mg PO DAILY 07/25/20 03/17/21 Nitroglycerin Sl Tabs [Nitrostat] 0.4 mg SL Q5M PRN 07/25/20 03/17/21 HYDROcodone/APAP 5-325MG [[place] 1 tab PO Q6H PRN 03/05/21 03/17/21 5-325] Ibuprofen [Motrin] 800 mg PO QID PRN 03/05/21 03/17/21 Insulin NPH Hum/Reg Insulin Hm 30 unit SQ AC-BID 03/05/21 03/17/21 [humuLIN 70/30 Kwikpen] Sacubitril/Valsartan [Entresto 24 1 tab PO BID 03/05/21 03/17/21 mg-26 mg Tablet] Albuterol Sulfate [Proair Hfa] 2 puff INHALATION RT-QID PRN 03/17/21 03/17/21 Previous Rx's Medication Instructions Recorded Clopidogrel [Plavix] 75 mg PO DAILY #90 tab 04/01/20 Spironolactone [Aldactone] 25 mg PO DAILY #30 tab 12/11/20 Metoprolol Succinate (ER) [Toprol 100 mg PO DAILY tab.er.24h 07/26/20 XL] Allergies Allergy/AdvReac Type Severity Reaction Status Date / Time Penicillins Allergy Unknown Verified 03/17/21 19:22 Childhood Review of Systems ROS Statement: Those systems with pertinent positive or pertinent negative responses have been documented in the HPI. ROS Other: All systems not noted in ROS Statement are negative. Past Medical History Past Medical History: Coronary Artery Disease (CAD), Chest Pain / Angina, Heart Failure, Diabetes Mellitus, Hyperlipidemia, Hypertension, Myocardial Infarction ([place]), Sleep Apnea/CPAP/BIPAP, Syncope Additional Past Medical History / Comment(s): Cardiiomyopathy with AICD, IDDM type II, neuropathy bilateral feet, SP with Cpap use, migraines, chronic back pain. Last Myocardial Infarction Date:: 2015 History of Any Multi-Drug Resistant Organisms: None Reported Past Surgical History: AICD, Heart Catheterization, Heart Catheterization With Stent Additional Past Surgical History / Comment(s): 10/27/12 AICD, DFTs, PCI with stent Past Anesthesia/Blood Transfusion Reactions: No Reported Reaction Date of Last Stent Placement:: 02/03/16 Type of Cardiac Device: AICD Device Placement Date:: 2012 Past Psychological History: Anxiety, Depression Smoking Status: Former smoker Past Alcohol Use History: None Reported Past Drug Use History: None Reported - Past Family History Mother Family Medical History: No Reported History Additional Family Medical History / Comment(s): Mother is healthy Brother(s) Family Medical History: Myocardial Infarction ([place]) Additional Family Medical History / Comment(s): Brother of a [place] at the age of 35yrs. Father Family Medical History: Liver Disease Additional Family Medical History / Comment(s): Father when pt was 19 yrs old from liver disease. He was an alcoholic. General Exam Limitations: no limitations General appearance: alert, in no apparent distress Head exam: Present: atraumatic Eye exam: Present: normal appearance, PERRL, EOMI. Absent: scleral icterus, co njunctival injection ENT exam: Present: normal exam, mucous membranes moist Neck exam: Present: normal inspection, full ROM. Absent: tenderness Respiratory exam: Present: normal lung sounds bilaterally. Absent: respiratory distress, wheezes Cardiovascular Exam: Present: regular rate, normal rhythm, normal heart sounds Course Vital Signs 03/17/21 03/17/21 16:49 20:00 Temperature 98.8 F Pulse Rate 112 H 83 Respiratory 22 16 Rate Blood Pressure 144/90 O2 Sat by Pulse 96 96 Oximetry EKG Findings - EKG Comments: EKG Findings:: Normal sinus rhythm, ventricular rate 83, FL interval 194, QTC 458 Medical Decision Making - Medical Decision Making Vitals are stable. Patient presents for thank cardiac history. He does also have a cough. CBC CMP unremarkable. Troponin negative. EKG nonischemic. - Lab Data Result diagrams: 03/17/21 19:55 03/17/21 19:55 Lab Results 03/17/21 03/17/21 03/17/21 Range/Units 16:53 19:55 19:55 WBC 7.9 (3.8-10.6) k/uL RBC 5.62 (4.30-5.90) m/uL Hgb 16.3 (13.0-17.5) gm/dL Hct 45.8 (39.0-53.0) % MCV 81.5 (80.0-100.0) fL MCH 29.0 (25.0-35.0) pg MCHC 35.6 (31.0-37.0) g/dL RDW 13.1 (11.5-15.5) % Plt Count 227 (150-450) k/uL MPV 7.8 Neutrophils % 67 % Lymphocytes % 22 % Monocytes % 6 % Eosinophils % 3 % Basophils % 1 % Neutrophils # 5.3 (1.3-7.7) k/uL Lymphocytes # 1.8 (1.0-4.8) k/uL Monocytes # 0.5 (0-1.0) k/uL Eosinophils # 0.2 (0-0.7) k/uL Basophils # 0.1 (0-0.2) k/uL PT 9.9 (9.0-12.0) sec INR 0.9 (<1.2) APTT 23.5 (22.0-30.0) sec Sodium (137-145) mmol/L Potassium (3.5-5.1) mmol/L Chloride (98-107) mmol/L Carbon Dioxide (22-30) mmol/L Anion Gap mmol/L BUN (9-20) mg/dL Creatinine (0.66-1.25) mg/dL Est GFR (CKD-EPI)AfAm (>60 ml/min/1.73 sqM) Est GFR (CKD-EPI)NonAf (>60 ml/min/1.73 sqM) Glucose (74-99) mg/dL Calcium (8.4-10.2) mg/dL Magnesium (1.6-2.3) mg/dL Total Bilirubin (0.2-1.3) mg/dL AST (17-59) U/L ALT (4-49) U/L Alkaline Phosphatase (38-126) U/L Troponin I (0.000-0.034) ng/mL Total Protein (6.3-8.2) g/dL Albumin (3.5-5.0) g/dL Coronavirus (PCR) Not Detected (Not Detectd) 03/17/21 03/17/21 Range/Units 19:55 19:55 WBC (3.8-10.6) k/uL RBC (4.30-5.90) m/uL Hgb (13.0-17.5) gm/dL Hct (39.0-53.0) % MCV (80.0-100.0) fL MCH (25.0-35.0) pg MCHC (31.0-37.0) g/dL RDW (11.5-15.5) % Plt Count (150-450) k/uL MPV Neutrophils % % Lymphocytes % % Monocytes % % Eosinophils % % Basophils % % Neutrophils # (1.3-7.7) k/uL Lymphocytes # (1.0-4.8) k/uL Monocytes # (0-1.0) k/uL Eosinophils # (0-0.7) k/uL Basophils # (0-0.2) k/uL PT (9.0-12.0) sec INR (<1.2) APTT (22.0-30.0) sec Sodium 134 L (137-145) mmol/L Potassium 4.1 (3.5-5.1) mmol/L Chloride 102 (98-107) mmol/L Carbon Dioxide 23 (22-30) mmol/L Anion Gap 9 mmol/L BUN 16 (9-20) mg/dL Creatinine 0.76 (0.66-1.25) mg/dL Est GFR (CKD-EPI)AfAm >90 (>60 ml/min/1.73 sqM) Est GFR (CKD-EPI)NonAf >90 (>60 ml/min/1.73 sqM) Glucose 284 H (74-99) mg/dL Calcium 9.2 (8.4-10.2) mg/dL Magnesium 1.6 (1.6-2.3) mg/dL Total Bilirubin 1.0 (0.2-1.3) mg/dL AST 19 (17-59) U/L ALT 17 (4-49) U/L Alkaline Phosphatase 137 H (38-126) U/L Troponin I <0.012 (0.000-0.034) ng/mL Total Protein 6.9 (6.3-8.2) g/dL Albumin 3.8 (3.5-5.0) g/dL Coronavirus (PCR) (Not Detectd) Disposition Clinical Impression: Chest pain, Hyperglycemia Disposition: ADMITTED IP TO THIS [facility] Condition: Good Is patient prescribed a controlled substance at d/c from ED?: No Referrals: Amrit Dan MD [Primary Care Provider] - 1-2 days Time of Disposition: 21:47
[2021-03-17 20:08] LABS: Basophils # (A) 0.1 k/uL (0-0.2); Basophils % (A) 1 %; Eosinophils # (A) 0.2 k/uL (0-0.7); Eosinophils % (A) 3 %; HCT 45.8 % (39.0-53.0); HGB 16.3 gm/dL (13.0-17.5); Lymphocytes # (A) 1.8 k/uL (1.0-4.8); Lymphocytes % (A) 22 %; MCHC 35.6 g/dL (31.0-37.0); MCV 81.5 fL (80.0-100.0); Mean Platelet Volume 7.8; Monocytes # (A) 0.5 k/uL (0-1.0); Monocytes % (A) 6 %; Neutrophils # (A) 5.3 k/uL (1.3-7.7); Neutrophils % (A) 67 %; Platelet Count 227 k/uL (150-450); RBC 5.62 m/uL (4.30-5.90); RDW 13.1 % (11.5-15.5); WBC 7.9 k/uL (3.8-10.6)
[2021-03-17 20:30] LABS: ALT 17 U/L (4-49); AST 19 U/L (17-59); African American GFR (CKD) >90 (>60 ml/min/1.73 sqM); Albumin 3.8 g/dL (3.5-5.0); Alkaline Phosphatase 137 U/L (38-126); Anion Gap 9 mmol/L; Blood Urea Nitrogen 16 mg/dL (9-20); Calcium 9.2 mg/dL (8.4-10.2); Carbon Dioxide 23 mmol/L (22-30); Chloride 102 mmol/L (98-107); Glucose 284 mg/dL (74-99); Magnesium 1.6 mg/dL (1.6-2.3); Non-African American GFR(CKD) >90 (>60 ml/min/1.73 sqM); Potassium 4.1 mmol/L (3.5-5.1); Sodium 134 mmol/L (137-145); Total Protein 6.9 g/dL (6.3-8.2)
[2021-03-17 20:46] LABS: INR 0.9 (<1.2); Partial Thromboplastin Time 23.5 sec (22.0-30.0); Prothrombin Time 9.9 sec (9.0-12.0)
[2021-03-17] MEDS ORDERED: ASPIRIN 81 MG PO STA (21:50)
[2021-03-18] MEDS: HYDROcodone/APAP 5-325MG 1 EACH TAB PO PRN ×2 (01:20→21:09)
[2021-03-18] MEDS: SACUBITRIL/VALSARTAN 24 MG-26 MG TABLET PO SCH ×2 (07:02→21:04)
[2021-03-18] MEDS: METOPROLOL SUCCINATE (ER) 100 MG TAB.ER.24H PO SCH (07:02)
[2021-03-18 07:45] LABS: Glucose,Whole Blood 225 mg/dL (75-99)
[2021-03-18] MEDS ORDERED: ASPIRIN 325 MG TAB PO SCH (09:00)
--- NOTE | 2021-03-18 10:31 | P.CRDCN ---
History of Present Illness History of present illness: HISTORY OF PRESENTING ILLNESS This is a pleasant 41-year-old male past medical history significant for coronary artery disease status post PCI RCA 2015 and diagonal branch 2019, ischemic cardiomyopathy status post AICD, hypertension, diabetes mellitus, dyslipidemia and chronic systolic heart failure. He follows in the office with Dr Hernandez. We have been asked to see in consultation for chest pain. He states for the previous one week he's been experiencing upper respiratory type illness with chest congestion, facial pain, nasal drainage and productive cough. Yesterday he started noticing a discomfort in his chest that was exacerbated by deep breathing and coughing. He is coughing up dark brown sputum. He denies any significant shortness of breath. He has no palpitations, dizziness or diaphoresis. DIAGNOSTICS EKG reveals sinus rhythm with poor R-wave progression. Telemetry tracings indicate sinus rhythm with no acute arrhythmia. Chest xray negative for an acute cardiopulmonary process. Laboratory reviewed, CBC unremarkable, sodium 134, potassium 4.1, creatinine 0.76 and cardiac enzymes negative 3. Current cardiac medications include entresto 24/26 mg BID, aspirin 81 mg daily, atorvastatin 80 mg daily, Plavix 75 mg daily, Lasix 80 mg daily, Toprol 100 mg daily and Aldactone 25 mg daily. Most recent echocardiogram obtained July 2020 revealed impaired LV systolic f unction with ejection fraction 25%. REVIEW OF SYSTEMS At the time of my exam: CONSTITUTIONAL: Denies fever or chills. CARDIOVASCULAR: Denies chest pain, shortness of breath, orthopnea, PND or palpit ations. RESPIRATORY: Denies cough. GASTROINTESTINAL: Denies abdominal pain, diarrhea, constipation, nausea or vomiting. MUSCULOSKELETAL: Denies myalgias. NEUROLOGIC: Denies numbness, tingling, headache or weakness. ENDOCRINE: Denies fatigue, weight change, polydipsia or polyurina. GENITOURINARY: Denies burning, hematuria or urgency with micturation. HEMATOLOGIC: Denies history of anemia or bleeding. PHYSICAL EXAMINATION Blood pressure 130/84 heart rate 76 afebrile and maintaining oxygen saturation on room air. CONSTITUTIONAL: No apparent distress. HEENT: Head is normocephalic. Pupils are equal, round. Sclerae anicteric. Mucous membranes of the mouth are moist. No JVD. No carotid bruit. CHEST EXAMINATION: Lungs are clear to auscultation. No chest wall tenderness is noted on palpation or with deep breathing. HEART EXAMINATION: Regular rate and rhythm. S1, S2 heard. No murmurs, gallops or rub. ABDOMEN: Soft, nontender. EXTREMITIES: 2+ peripheral pulses, no lower extremity edema and no calf tenderness. NEUROLOGIC EXAMINATION: Patient is awake, alert and oriented x3. ASSESSMENT Chest pain, pleuritic History of coronary artery disease status post PCI Chronic systolic heart failure, clinically euvolemic Ischemic cardiomyopathy status post AICD placement ([place]) Hypertension Dyslipidemia Diabetes mellitus PLAN And acute coronary event has been ruled out. Pain is atypical for angina and pleuritic in nature likely due to underlying viral illness. Recommend medication compliance and follow-up office visit with Dr. Hernandez in one to 2 weeks. Thank you kindly for this consultation. Nurse Practitioner note has been reviewed, I agree with a documented findings and plan of care. Patient was seen and examined. Past Medical History Past Medical History: Coronary Artery Disease (CAD), Chest Pain / Angina, Heart Failure, Diabetes Mellitus, Hyperlipidemia, Hypertension, Myocardial Infarction ([place]), Sleep Apnea/CPAP/BIPAP, Syncope Additional Past Medical History / Comment(s): Cardiiomyopathy with AICD, IDDM type II, neuropathy bilateral feet, SP with Cpap use, migraines, chronic back pain. Last Myocardial Infarction Date:: 2015 History of Any Multi-Drug Resistant Organisms: None Reported Past Surgical History: AICD, Heart Catheterization, Heart Catheterization With Stent Additional Past Surgical History / Comment(s): 10/27/12 AICD, DFTs, PCI with stent Past Anesthesia/Blood Transfusion Reactions: No Reported Reaction Date of Last Stent Placement:: 02/03/16 Type of Cardiac Device: AICD Device Placement Date:: 2012 Past Psychological History: Anxiety, Depression Additional Psychological History / Comment(s): Pt resides with his sister Smoking Status: Former smoker Past Alcohol Use History: None Reported Additional Past Alcohol Use History / Comment(s): quit in 2019 Past Drug Use History: None Reported - Past Family History Mother Family Medical History: No Reported History Additional Family Medical History / Comment(s): Mother is healthy Brother(s) Family Medical History: Myocardial Infarction ([place]) Additional Family Medical History / Comment(s): Brother of a [place] at the age of 35yrs. Father Family Medical History: Liver Disease Additional Family Medical History / Comment(s): Father when pt was 19 yrs old from liver disease. He was an alcoholic. Medications and Allergies Home Medications Medication Instructions Recorded Confirmed Type Aspirin EC [Ecotrin Low Dose] 81 mg PO DAILY 10/13/18 03/17/21 History metFORMIN HCL [Glucophage] 1,000 mg PO DAILY 06/14/19 03/17/21 History Clopidogrel [Plavix] 75 mg PO DAILY #90 tab 04/01/20 03/17/21 Rx Spironolactone [Aldactone] 25 mg PO DAILY #30 tab 04/01/20 03/17/21 Rx Atorvastatin [Lipitor] 80 mg PO DAILY 07/25/20 03/17/21 History Furosemide [Lasix] 80 mg PO DAILY 07/25/20 03/17/21 History Nitroglycerin Sl Tabs [Nitrostat] 0.4 mg SL Q5M PRN 07/25/20 03/17/21 History Metoprolol Succinate (ER) [Toprol 100 mg PO DAILY tab.er.24h 07/26/20 03/17/21 Rx XL] HYDROcodone/APAP 5-325MG [[place] 1 tab PO Q6H PRN 03/05/21 03/17/21 History 5-325] Ibuprofen [Motrin] 800 mg PO QID PRN 03/05/21 03/17/21 History Insulin NPH Hum/Reg Insulin Hm 30 unit SQ AC-BID 03/05/21 03/17/21 History [humuLIN 70/30 Kwikpen] Sacubitril/Valsartan [Entresto 24 1 tab PO BID 03/05/21 03/17/21 History mg-26 mg Tablet] Albuterol Sulfate [Proair Hfa] 2 puff INHALATION RT-QID PRN 03/17/21 03/17/21 History Allergies Allergy/AdvReac Type Severity Reaction Status Date / Time Penicillins Allergy Unknown Verified 03/17/21 19:22 Childhood Physical Exam Vitals: Vital Signs Temp Pulse Pulse Resp BP BP Pulse Ox 03/18/21 07:00 97.6 F 76 16 130/84 96 03/18/21 02:01 79 18 123/80 93 L 03/17/21 23:09 97.6 F 75 18 143/94 98 03/17/21 22:51 80 16 142/72 96 03/17/21 20:00 83 16 96 03/17/21 16:49 98.8 F 112 H 22 144/90 96 Intake and Output 03/17/21 03/18/21 03/18/21 22:59 06:59 14:59 Other: Voiding Method Toilet Toilet # Voids 2 Weight 141.521 kg Results 03/17/21 19:55 03/17/21 19:55 Cardiac Enzymes 03/17/21 03/17/21 03/17/21 Range/Units 19:55 19:55 23:20 AST 19 (17-59) U/L Troponin I <0.012 <0.012 (0.000-0.034) ng/mL 03/18/21 Range/Units 02:11 AST (17-59) U/L Troponin I <0.012 (0.000-0.034) ng/mL Coagulation 03/17/21 Range/Units 19:55 PT 9.9 (9.0-12.0) sec APTT 23.5 (22.0-30.0) sec CBC 03/17/21 Range/Units 19:55 WBC 7.9 (3.8-10.6) k/uL RBC 5.62 (4.30-5.90) m/uL Hgb 16.3 (13.0-17.5) gm/dL Hct 45.8 (39.0-53.0) % Plt Count 227 (150-450) k/uL Comprehensive Metabolic Panel 03/17/21 Range/Units 19:55 Sodium 134 L (137-145) mmol/L Potassium 4.1 (3.5-5.1) mmol/L Chloride 102 (98-107) mmol/L Carbon Dioxide 23 (22-30) mmol/L BUN 16 (9-20) mg/dL Creatinine 0.76 (0.66-1.25) mg/dL Glucose 284 H (74-99) mg/dL Calcium 9.2 (8.4-10.2) mg/dL AST 19 (17-59) U/L ALT 17 (4-49) U/L Alkaline Phosphatase 137 H (38-126) U/L Total Protein 6.9 (6.3-8.2) g/dL Albumin 3.8 (3.5-5.0) g/dL Current Medications Generic Name Dose Route Start Last Admin Trade Name [place] PRN Reason Stop Dose Admin Hydrocodone Bitart/Acetaminophen 1 each 03/18/21 01:05 03/18/21 01:20 Hydrocodone/Apap 5-325mg 1 Each Tab PO 1 each Q6H PRN Administration Pain Aspirin 325 mg 03/18/21 09:00 03/18/21 07:02 Aspirin 325 Mg Tab PO 325 mg DAILY KSENIA Administration Metoprolol Succinate 100 mg 03/18/21 09:00 03/18/21 07:02 Metoprolol Succinate (Er) 100 Mg Tab.Er.24h PO 100 mg DAILY KSENIA Administration Sacubitril/Valsartan 1 each 03/18/21 09:00 03/18/21 07:02 Sacubitril/Valsartan 24 Mg-26 Mg Tablet PO 1 each BID KSENIA Administration Intake and Output 03/17/21 03/18/21 03/18/21 22:59 06:59 14:59 Other: Voiding Method Toilet Toilet # Voids 2 Weight 141.521 kg 03/17/21 19:55 03/17/21 19:55
[2021-03-18 11:45] LABS: Chol/HDL Ratio 4.49 Ratio; HDL Cholesterol 30.1 mg/dL (40.00-60.00)
[2021-03-18 12:12] LABS: Glucose,Whole Blood 436 mg/dL (75-99)
[2021-03-18] MEDS: INSULIN ASPART (NovoLOG) 100 UNIT/ML VIAL SQ SCH ×3 (12:47→21:04)
[2021-03-18 13:26] LABS: LDL Cholesterol,Direct Reflex 42.5 mg/dL (0.00-129.00)
[2021-03-18] MEDS ORDERED: AZITHROMYCIN 500 MG TAB PO SCH (16:00)
[2021-03-18] MEDS: IPRATROPIUM-ALBUTEROL 3 ML NEB INHALATION SCH ×2 (16:09→20:43)
[2021-03-18] MEDS: CLOPIDOGREL 75 MG TAB PO SCH (16:26)
[2021-03-18] MEDS: metFORMIN 500 MG TAB PO SCH (16:26)
[2021-03-18] MEDS: SPIRONOLACTONE 25 MG TAB PO SCH (16:26)
[2021-03-18] MEDS: FUROSEMIDE 80 MG TAB PO SCH (16:26)
[2021-03-18] MEDS: methylPREDNISolone SOD SUCCI 40 MG/ML 1 ML VIAL IV SCH (16:26)
[2021-03-18 17:24] LABS: Glucose,Whole Blood 436 mg/dL (75-99)
[2021-03-18] MEDS: INSULN ASP PRT/INSULIN ASPART 100 UNIT/ML 10 ML VIAL SQ SCH (17:28)
[2021-03-18 20:41] LABS: Glucose,Whole Blood 429 mg/dL (75-99)
[2021-03-19] MEDS: methylPREDNISolone SOD SUCCI 40 MG/ML 1 ML VIAL IV SCH ×2 (00:06→07:44)
[2021-03-19 07:32] LABS: Glucose,Whole Blood 481 mg/dL (75-99)
[2021-03-19] MEDS: INSULIN ASPART (NovoLOG) 100 UNIT/ML VIAL SQ SCH ×2 (07:44→12:51)
[2021-03-19] MEDS: metFORMIN 500 MG TAB PO SCH (07:44)
[2021-03-19] MEDS: INSULN ASP PRT/INSULIN ASPART 100 UNIT/ML 10 ML VIAL SQ SCH (07:44)
[2021-03-19] MEDS: SPIRONOLACTONE 25 MG TAB PO SCH (07:45)
[2021-03-19] MEDS: SACUBITRIL/VALSARTAN 24 MG-26 MG TABLET PO SCH (07:45)
[2021-03-19] MEDS: CLOPIDOGREL 75 MG TAB PO SCH (07:45)
[2021-03-19] MEDS: FUROSEMIDE 80 MG TAB PO SCH (07:45)
[2021-03-19] MEDS: METOPROLOL SUCCINATE (ER) 100 MG TAB.ER.24H PO SCH (07:45)
--- NOTE | 2021-03-19 08:39 | P.HPIM ---
History of Present Illness H&P Date: 03/18/21 Chief Complaint: Upper respiratory infection/chest pain 41-year-old male with a past medical history of CAD, heart failure, diabetes mellitus, hyperlipidemia, hypertension, [place], AICD presents to the emergency room for chest pressure. Patient states for the past week or so he has had a pressure in his chest. States today it started to be a sharp pressure in the chest that radiated to the left shoulder. Patient does also for cough and congestion but states that is improving. His chest pressure however has not improved. He has not had any fevers.Patient has no other complaints at this time including shortness of breath, chest pain, abdominal pain, nausea or vomiting, headache, or visual changes. Workup in ED reveals WBC of 7.9, hemoglobin 16.3, platelet count of 227, sodium 134, potassium 4.1, BUN/creatinine of 16/0.7 and glucose of 284 Review of Systems REVIEW OF SYSTEMS: CONSTITUTIONAL: No fever, no malaise, no fatigue. HEENT: No recent visual problems or hearing problems. Denied any sore throat. CARDIOVASCULAR: chest pain, orthopnea, PND, no palpitations, no syncope. PULMONARY: Positive for shortness of breath, no cough, no hemoptysis. GASTROINTESTINAL: No diarrhea, no nausea, no vomiting, no abdominal pain. NEUROLOGICAL: No headaches, no weakness, no numbness. HEMATOLOGICAL: Denies any bleeding or petechiae. GENITOURINARY: Denies any burning micturition, frequency, or urgency. MUSCULOSKELETAL/RHEUMATOLOGICAL: Denies any joint pain, swelling, or any muscle pain. ENDOCRINE: Denies any polyuria or polydipsia. The rest of the 14-point review of systems is negative. Past Medical History Past Medical History: Coronary Artery Disease (CAD), Chest Pain / Angina, Heart Failure, Diabetes Mellitus, Hyperlipidemia, Hypertension, Myocardial Infarction ([place]), Sleep Apnea/CPAP/BIPAP, Syncope Additional Past Medical History / Comment(s): Cardiiomyopathy with AICD, IDDM type II, neuropathy bilateral feet, SP with Cpap use, migraines, chronic back pain. Last Myocardial Infarction Date:: 2015 History of Any Multi-Drug Resistant Organisms: None Reported Past Surgical History: AICD, Heart Catheterization, Heart Catheterization With Stent Additional Past Surgical History / Comment(s): 10/27/12 AICD, DFTs, PCI with stent Past Anesthesia/Blood Transfusion Reactions: No Reported Reaction Date of Last Stent Placement:: 02/03/16 Type of Cardiac Device: AICD Device Placement Date:: 2012 Past Psychological History: Anxiety, Depression Additional Psychological History / Comment(s): Pt resides with his sister Smoking Status: Former smoker Past Alcohol Use History: None Reported Additional Past Alcohol Use History / Comment(s): quit in 2019 Past Drug Use History: None Reported - Past Family History Mother Family Medical History: No Reported History Additional Family Medical History / Comment(s): Mother is healthy Brother(s) Family Medical History: Myocardial Infarction ([place]) Additional Family Medical History / Comment(s): Brother of a [place] at the age of 35yrs. Father Family Medical History: Liver Disease Additional Family Medical History / Comment(s): Father when pt was 19 yrs old from liver disease. He was an alcoholic. Medications and Allergies Home Medications Medication Instructions Recorded Confirmed Type Aspirin EC [Ecotrin Low Dose] 81 mg PO DAILY 10/13/18 03/17/21 History metFORMIN HCL [Glucophage] 1,000 mg PO DAILY 06/14/19 03/17/21 History Clopidogrel [Plavix] 75 mg PO DAILY #90 tab 04/01/20 03/17/21 Rx Spironolactone [Aldactone] 25 mg PO DAILY #30 tab 04/01/20 03/17/21 Rx Atorvastatin [Lipitor] 80 mg PO DAILY 07/25/20 03/17/21 History Furosemide [Lasix] 80 mg PO DAILY 07/25/20 03/17/21 History Nitroglycerin Sl Tabs [Nitrostat] 0.4 mg SL Q5M PRN 07/25/20 03/17/21 History Metoprolol Succinate (ER) [Toprol 100 mg PO DAILY tab.er.24h 07/26/20 03/17/21 Rx XL] HYDROcodone/APAP 5-325MG [[place] 1 tab PO Q6H PRN 03/05/21 03/17/21 History 5-325] Ibuprofen [Motrin] 800 mg PO QID PRN 03/05/21 03/17/21 History Insulin NPH Hum/Reg Insulin Hm 30 unit SQ AC-BID 03/05/21 03/17/21 History [humuLIN 70/30 Kwikpen] Sacubitril/Valsartan [Entresto 24 1 tab PO BID 03/05/21 03/17/21 History mg-26 mg Tablet] Albuterol Sulfate [Proair Hfa] 2 puff INHALATION RT-QID PRN 03/17/21 03/17/21 History Allergies Allergy/AdvReac Type Severity Reaction Status Date / Time Penicillins Allergy Unknown Verified 03/17/21 19:22 Childhood Physical Exam Vitals: Vital Signs Temp Pulse Pulse Resp BP BP Pulse Ox 03/18/21 07:00 97.6 F 76 16 130/84 96 03/18/21 02:01 79 18 123/80 93 L 03/17/21 23:09 97.6 F 75 18 143/94 98 03/17/21 22:51 80 16 142/72 96 03/17/21 20:00 83 16 96 03/17/21 16:49 98.8 F 112 H 22 144/90 96 Intake and Output 03/17/21 03/18/21 03/18/21 22:59 06:59 14:59 Other: Voiding Method Toilet Toilet # Voids 2 Weight 141.521 kg PHYSICAL EXAMINATION: GENERAL: The patient is alert and oriented x3, not in any acute distress. Well developed, well nourished. HEENT: Pupils are round and equally reacting to light. EOMI. No scleral icterus. No conjunctival pallor. Normocephalic, atraumatic. No pharyngeal erythema. No thyromegaly. CARDIOVASCULAR: S1 and S2 present. No murmurs, rubs, or gallops. PULMONARY: Diffuse wheezing with decreased breath sounds; scattered rhonchi. ABDOMEN: Soft, nontender, nondistended, normoactive bowel sounds. No palpable organomegaly. MUSCULOSKELETAL: No joint swelling or deformity. EXTREMITIES: No cyanosis, clubbing, or pedal edema. NEUROLOGICAL: Gross neurological examination did not reveal any focal deficits. SKIN: No rashes. Results CBC & Chem 7: 03/17/21 19:55 03/17/21 19:55 Labs: Abnormal Lab Results - Last 24 Hours (Table) 03/17/21 03/18/21 Range/Units 19:55 07:43 Sodium 134 L (137-145) mmol/L Glucose 284 H (74-99) mg/dL POC Glucose (mg/dL) 225 H (75-99) mg/dL Alkaline Phosphatase 137 H (38-126) U/L Thrombosis Risk Factor Assmnt - Choose All That Apply Each Factor Represents 1 point: Age 41-60 years, Obesity (BMI >25) Thrombosis Risk Factor Assessment Total Risk Factor Score: 2 Thrombosis Risk Factor Assessment Level: Low Risk Assessment and Plan Assessment: 1. Chest pain; rule out ACS - Patient has history of CAD/cardiomyopathy with AICD placement - Continue with aspirin, statins, beta blockers and Plavix; Lasix 80 mg daily with Aldactone 25 mg daily 2. Severe purulent bronchitis/ possible COPD exacerbation - Patient continues to complain of severe shortness of breath with minimal activity; speaking in short sentences; we will start patient on Solu-Medrol 40 mg IV every 12 hours; bronchodilator nebulizer treatments; azithromycin 500 mg daily 3. Hyperglycemia/diabetes mellitus; blood glucoses elevated upon admission; we will monitor Accu-Cheks every before meals and at bedtime with insulin sliding scale; we will resume NovoLog units subcu twice a day along with metformin thousand milligrams daily; monitor Accu-Cheks before meals and at bedtime with insulin sliding scale 4. Hypertension; stable on metoprolol 100 mg daily and Entresto 2426 twice a day 5. Hyperlipidemia; Lipitor 80 mg by mouth daily 6. Cardiomyopathy/CHF; stable on Lasix 80 mg daily and Aldactone 25 mg daily DVT prophylaxis; SCDs CODE STATUS; full code
[2021-03-19 08:58] VITALS: BP 123/82; RESP 16; TEMP 98.2
[2021-03-19] MEDS ORDERED: ASPIRIN 81 MG PO SCH (09:00)
[2021-03-19] MEDS ORDERED: ATORVASTATIN 80 MG TAB PO SCH (09:00)
[2021-03-19] MEDS: IPRATROPIUM-ALBUTEROL 3 ML NEB INHALATION SCH ×2 (10:15→12:49)
[2021-03-19 12:47] LABS: Glucose,Whole Blood 354 mg/dL (75-99)
[2021-03-19 12:52] VITALS: PULSE 94
== END 2021-03-19 14:30 | disposition home or self-care (01) ==
LOC: EC 16:41 → 6NMEDSUR 22:38
PROVIDERS: ADMIT Hospitalist; ATTEND Hospitalist
DX: R07.89 Other chest pain (principal); J41.1 Mucopurulent chronic bronchitis; E11.65 Type 2 diabetes mellitus with hyperglycemia; I11.0 Hypertensive heart disease with heart failure; I50.22 Chronic systolic (congestive) heart failure; I25.5 Ischemic cardiomyopathy; I25.10 Atherosclerotic heart disease of native coronary artery without angina pectoris; E78.5 Hyperlipidemia, unspecified; I25.2 Old myocardial infarction; G47.33 Obstructive sleep apnea (adult) (pediatric); G43.909 Migraine, unspecified, not intractable, without status migrainosus; G89.29 Other chronic pain; M54.9 Dorsalgia, unspecified; E11.42 Type 2 diabetes mellitus with diabetic polyneuropathy; F32.A Depression, unspecified; F41.9 Anxiety disorder, unspecified; E66.9 Obesity, unspecified; Z68.41 Body mass index [BMI] 40.0-44.9, adult; Z20.822 Contact with and (suspected) exposure to COVID-19; Z79.82 Long term (current) use of aspirin; Z79.84 Long term (current) use of oral hypoglycemic drugs; Z79.4 Long term (current) use of insulin; Z79.02 Long term (current) use of antithrombotics/antiplatelets; Z79.899 Other long term (current) drug therapy; Z88.0 Allergy status to penicillin; Z95.5 Presence of coronary angioplasty implant and graft; Z95.810 Presence of automatic (implantable) cardiac defibrillator; Z87.891 Personal history of nicotine dependence; Z81.1 Family history of alcohol abuse and dependence; Z83.79 Family history of other diseases of the digestive system; Z82.49 Family history of ischemic heart disease and other diseases of the circulatory system
CPT/HCPCS: 96376; 96374; 99284; 36415; 94640 ×2; 93005; 80061; 80053; 83735; 84484 ×2; 85025; 85610; 85730; 83721; 87635; 71046; G0378 ×3; J2920 ×2

== ENCOUNTER 2021-04-25 16:23 | Inpatient (IN) | payer OTHER ==
[2021-04-25 17:28] LABS: Basophils # (A) 0.1 k/uL (0-0.2); Basophils % (A) 1 %; Eosinophils # (A) 0.3 k/uL (0-0.7); Eosinophils % (A) 3 %; HCT 46.7 % (39.0-53.0); HGB 16.3 gm/dL (13.0-17.5); Lymphocytes # (A) 2.1 k/uL (1.0-4.8); Lymphocytes % (A) 26 %; MCH 29.5 pg (25.0-35.0); MCHC 34.8 g/dL (31.0-37.0); MCV 84.8 fL (80.0-100.0); Mean Platelet Volume 7.4; Monocytes # (A) 0.5 k/uL (0-1.0); Monocytes % (A) 6 %; Neutrophils # (A) 4.9 k/uL (1.3-7.7); Neutrophils % (A) 62 %; Platelet Count 202 k/uL (150-450); RBC 5.51 m/uL (4.30-5.90); RDW 13.4 % (11.5-15.5)
[2021-04-25 17:30] LABS: Glucose,Whole Blood 226 mg/dL (75-99)
--- NOTE | 2021-04-25 17:34 | ED ---
Chest Pain HPI <Trey Arcos - Last Filed: 04/25/21 18:11> - General Source: patient Mode of arrival: ambulatory Limitations: no limitations - History of Present Illness MD Complaint: chest pain, other (Again, patient states that he had left facial numbness and left facial drooping for about 1 hour from 11:30 AM to 12:30 PM. Facial weakness has resolved but the diminished sensation persists to the left face, left arm, and left leg.) Onset/Timin -: days(s) Severity: moderate Quality: heaviness, similar to prior MT Consistency: constant (was intermittent but has been more constant over the past 2 days. He does radiate to the left shoulder.) Improves With: nothing Worsens With: nothing Anginal Symptoms: dyspnea <Scott Stephens - Last Filed: 04/25/21 18:57> - General Chief Complaint: Chest Pain Stated Complaint: DEANNA,chest pain Time Seen by Provider: 04/25/21 16:55 - History of Present Illness Initial Comments: This is a pleasant 41-year-old male with a history of cardiac disease, cardiomyopathy, CHF, diabetes mellitus. He presents to the emergency department today with chief complaint of chest pain which has been intermittent for the past 2 days. Patient states it feels like a pressure on his chest. Patient states she also has a sensation of difficulty breathing. Additionally, when I enter the room he adds that he had left facial numbness and drooping starting at 11:30 AM and lasting for about one hour. He states he still has a strange sensation in loss of sensation to left face, left arm, left leg. Patient also states he had an associated headache at the time of the left facial drooping. He denies any focal weakness. Patient has a history of cardiac disease but no history of CVA. Patient is a former cigarette smoker. Denies any illicit drug abuse. No alcohol abuse. Patient does take a daily 81 mg aspirin and is on Plavix. Diabetes also insulin control. (cSott Stephens) - Related Data Home Medications Medication Instructions Recorded Confirmed Aspirin EC [Ecotrin Low Dose] 81 mg PO DAILY 10/13/18 04/25/21 metFORMIN HCL [Glucophage] 1,000 mg PO DAILY 06/14/19 04/25/21 Atorvastatin [Lipitor] 80 mg PO DAILY 07/25/20 04/25/21 Furosemide [Lasix] 80 mg PO DAILY 07/25/20 04/25/21 HYDROcodone/APAP 5-325MG [[place] 1 tab PO Q6H PRN 03/05/21 04/25/21 5-325] Insulin NPH Hum/Reg Insulin Hm 60 unit SQ DAILY 03/05/21 04/25/21 [humuLIN 70/30 Kwikpen] Sacubitril/Valsartan [Entresto 24 1 tab PO BID 03/05/21 04/25/21 mg-26 mg Tablet] Albuterol Sulfate [Proair Hfa] 2 puff INHALATION RT-Q6H PRN 03/17/21 04/25/21 Dulaglutide [Trulicity] 0.75 mg SQ TU 04/25/21 04/25/21 INSULIN ASPART (NovoLOG) [NovoLOG 30 unit SQ AC-TID 04/25/21 04/25/21 (formulary)] Previous Rx's Medication Instructions Recorded Clopidogrel [Plavix] 75 mg PO DAILY #90 tab 04/01/20 Spironolactone [Aldactone] 25 mg PO DAILY #30 tab 04/01/20 Metoprolol Succinate (ER) [Toprol 100 mg PO DAILY tab.er.24h 07/26/20 XL] Allergies Allergy/AdvReac Type Severity Reaction Status Date / Time Penicillins Allergy Unknown Verified 04/25/21 16:47 Childhood Review of Systems ROS Other: All systems not noted in ROS Statement are negative. <Trey Arcos - Last Filed: 04/25/21 18:11> ROS Other: All systems not noted in ROS Statement are negative. Constitutional: Reports: as per HPI Eyes: Denies: eye pain, vision change Respiratory: Reports: as per HPI Cardiovascular: Reports: as per HPI Endocrine: Denies: fatigue, heat or cold intolerance Gastrointestinal: Denies: abdominal pain, nausea, vomiting Genitourinary: Denies: urgency, dysuria Musculoskeletal: Denies: back pain, joint swelling, myalgia Skin: Denies: rash, lesions Neurological: Reports: headache, paresthesias. Denies: weakness, numbness, confusion, abnormal gait, vertigo Psychiatric: Denies: anxiety, auditory hallucinations, visual hallucinations, suicidal thoughts <Scott Stephens - Last Filed: 04/25/21 18:57> ROS Statement: Those systems with pertinent positive or pertinent negative responses have been documented in the HPI. EKG Findings - EKG Comments: EKG Findings:: EKG reveals sinus tachycardia with a rate of 106. Baseline artifact. Poor R-wave progression. Intervals are normal. No evidence of acute ST or T-wave changes. No evidence of ST elevation. [place] is normal. <Scott Stephens - Last Filed: 04/25/21 18:57> Past Medical History Past Medical History: Coronary Artery Disease (CAD), Chest Pain / Angina, Heart Failure, Diabetes Mellitus, Hyperlipidemia, Hypertension, Myocardial Infarction (MT), Sleep Apnea/CPAP/BIPAP, Syncope Additional Past Medical History / Comment(s): Cardiiomyopathy with AICD, IDDM type II, neuropathy bilateral feet, SP with Cpap use, migraines, chronic back pain. Last Myocardial Infarction Date:: 2015 History of Any Multi-Drug Resistant Organisms: None Reported Past Surgical History: AICD, Heart Catheterization, Heart Catheterization With Stent Additional Past Surgical History / Comment(s): 10/27/12 AICD, DFTs, PCI with stent Past Anesthesia/Blood Transfusion Reactions: No Reported Reaction Date of Last Stent Placement:: 02/03/16 Type of Cardiac Device: AICD Device Placement Date:: 2012 Past Psychological History: Anxiety, Depression Smoking Status: Former smoker Past Alcohol Use History: None Reported Past Drug Use History: None Reported - Past Family History Mother Family Medical History: No Reported History Additional Family Medical History / Comment(s): Mother is healthy Brother(s) Family Medical History: Myocardial Infarction (MT) Additional Family Medical History / Comment(s): Brother of a MT at the age of 35yrs. Father Family Medical History: Liver Disease Additional Family Medical History / Comment(s): Father when pt was 19 yrs old from liver disease. He was an alcoholic. <Scott Stephens - Last Filed: 04/25/21 18:57> General Exam Limitations: no limitations General appearance: alert, in no apparent distress Head exam: Present: atraumatic, normocephalic, normal inspection Eye exam: Present: normal appearance, PERRL, EOMI. Absent: scleral icterus, conjunctival injection, periorbital swelling ENT exam: Present: normal exam, mucous membranes moist Neck exam: Present: normal inspection. Absent: tenderness, meningismus, lymphadenopathy Respiratory exam: Present: normal lung sounds bilaterally. Absent: respiratory distress, wheezes, rales, rhonchi, stridor Cardiovascular Exam: Present: normal rhythm, tachycardia, normal heart sounds. Absent: systolic murmur, diastolic murmur, rubs, gallop, clicks GI/Abdominal exam: Present: soft, normal bowel sounds. Absent: distended, tenderness, guarding, rebound, rigid Extremities exam: Present: normal inspection, full ROM, normal capillary refill. Absent: tenderness, pedal edema, joint swelling, calf tenderness Back exam: Present: normal inspection Neurological exam: Present: alert, oriented X3, CN II-XII intact, motor sensory deficit (patient remains to have mild decreased sensation to the left face, left arm and left leg, to both light touch and pinprick. NIH score is 1.) Expanded Neurological exam: Absent: ataxia Patient oriented to: Present: person, place, time Speech: Present: fluid speech. Absent: receptive aphasia, expressive aphasia, total aphasia Cranial nerves: EOM's Intact: Normal, Gag Reflex: Normal, Tongue Deviation: Normal, Nystagmus: Normal, Facial Sensation: Abnormal Left, Facial Palsy with Forehead Movement: Normal, Facial Palsy without Forehead Movement: Normal Ataxia: Absent: yes Cerebellar function: Finger to Nose: Normal, Heel to [place]: Normal Upper motor neuron: Monty Neglect: Normal, Pronator Drift: Normal, Babinski Sign: Normal, Sensory Extinction: Normal Sensory exam: Upper Extremity Light Touch: Abnormal Left, Upper Extremity Pin Prick: Abnormal Left, Upper Extremity Temperature: Normal, UE 2 Point Discrimination: Normal, Lower Extremity Light Touch: Abnormal Left, Lower Extremity Pin Prick: Abnormal Left, Lower Extremity Temperature: Normal, LE 2 Point Discrimination: Normal Motor strength exam: RUE: 5, LUE: 5, RLE: 5, LLE: 5 Eye Response: (4) open spontaneously Motor Response: (6) obeys commands Verbal Response: (5) oriented (NIH of 1 for mild loss of sensation, left side) Psychiatric exam: Present: normal affect, normal mood Skin exam: Present: warm, dry, intact, normal color. Absent: rash <Scott Stephens - Last Filed: 04/25/21 18:57> Course <Trey Arcos - Last Filed: 04/25/21 18:11> <Scott Stephens - Last Filed: 04/25/21 18:57> Vital Signs 04/25/21 04/25/21 04/25/21 16:40 16:56 17:00 Temperature 98.4 F 98.3 F Pulse Rate 119 H 107 H Pulse Rate [ 107 H It Service Technician ] Respiratory 20 18 Rate Blood Pressure 145/96 151/103 O2 Sat by Pulse 95 95 Oximetry 04/25/21 04/25/21 04/25/21 17:15 17:30 17:45 Temperature 97.9 F 98.0 F 98.1 F Pulse Rate 100 101 H 93 Pulse Rate [ It Service Technician ] Respiratory 18 18 16 Rate Blood Pressure 160/101 148/94 O2 Sat by Pulse 97 95 96 Oximetry 04/25/21 18:00 Temperature 98.1 F Pulse Rate 91 Pulse Rate [ It Service Technician ] Respiratory 16 Rate Blood Pressure 149/94 O2 Sat by Pulse 96 Oximetry - Reevaluation(s) Reevaluation #1: 04/25/21 18:11 Patient was earlier evaluated by myself, Dr. Arcos. Patient states around 11:30 he had an episode of left facial and arm heaviness that lasted around an hour then resolved. Patient still has mild paresthesias and some decrease sensation in both areas. Patient states there is also some mild chest discomfort. I do agree with PAs findings. This includes diagnostic interpretation treatment plan. Case was discussed with Dr. Dan who will admit his patient. ( Trey Arcos) Reevaluation #2: 04/25/21 18:16 Patient currently had imaging. Vital signs stable, patient afebrile. (Scott Stephens) Chest Pain MDM - Differential Diagnosis AMI, ACS, PE, Pericarditis, Pneumonia, Pleurisy-Other, Chest Wall Syndrome - Wells Criteria Clinical Symptoms of DVT: (0) No No Alternative Diagnosis: (0) No Immobilization of Surgery in Previous 4 Weeks: (0) No Previous DVT/PE: (0) No Hemoptysis: (0) No Malignancy: (0) No - PERC Rule Heart Rate < 100: (1) Yes (perc score is 1) g: (0) No No Prior History pf DVT/PE: (0) No No Recent Trauma or Surgery: (0) No Hemoptysis: (0) No No Exogenous Estrogen: (0) No No Clinical Signs Suggesting DVT: (0) No <Scott Stephens - Last Filed: 04/25/21 18:57> - [facility] differential diagnosis--Chest pain, possible cardiac ischemia, given the patient's tachycardia, pulmonary embolism is possible. Pulmonary etiology also possibility. Patient being seen due to COVID-19 pandemic. This may be within the differential as well. In addition, patient has symptoms of a TIA, possibly improving. Left facial weakness and numbness. Facial weakness has resolved. Patient has diminished sensation to the left side which remains. Cardiopulmonary evaluation, CT head without contrast plus CTA head and neck." Stroke was called. Case was discussed immediately with Dr. Lopez. I also discussed the case immediately with Dr. Arcos who also saw the patient. Patient primary care physician, Dr. Dan was consulted as well. Patient's heart score is 3 with significant history of cardiac disease. Aspirin 325 mg was given here in the ER, noted the patient took 81 mg at home. Currently the patient has very minimal chest discomfort. (Scott Stephens) Disposition <Trey Arcos - Last Filed: 04/25/21 18:11> Decision to Admit Reason: Admit from EC Decision Date: 04/25/21 Decision Time: 18:57 - Out of Hospital Transfer - Req. Specs Out of Hospital Transfer - Requested Specifics: Telemetry Unit <Scott Stephens - Last Filed: 04/25/21 18:57> Clinical Impression: TIA (transient ischemic attack), Chest pain, Paresthesia of left upper and lower extremity Narrative: Patient will be admitted to the hospital on the Dr. Dan awareness consultation for neurology. (Scott Stephens) Disposition: ADMITTED IP TO THIS HOSP Condition: Stable Referrals: Amrit Dan MD [Primary Care Provider] - 1-2 days
[2021-04-25 17:38] LABS: INR 0.9 (<1.2); Partial Thromboplastin Time 22.8 sec (22.0-30.0); Prothrombin Time 9.6 sec (9.0-12.0)
[2021-04-25] MEDS ORDERED: ONDANSETRON 4 MG/2 ML VIAL IVP STA (17:41)
[2021-04-25] MEDS ORDERED: MORPHINE SULFATE 4 MG/ML SYRINGE IV STA (17:41)
[2021-04-25 17:44] LABS: ALT 20 U/L (4-49); AST 19 U/L (17-59); African American GFR (CKD) >90 (>60 ml/min/1.73 sqM); Albumin 3.8 g/dL (3.5-5.0); Alkaline Phosphatase 116 U/L (38-126); Anion Gap 11 mmol/L; Blood Urea Nitrogen 15 mg/dL (9-20); Calcium 8.9 mg/dL (8.4-10.2); Carbon Dioxide 22 mmol/L (22-30); Chloride 103 mmol/L (98-107); Glucose 249 mg/dL (74-99); Magnesium 1.9 mg/dL (1.6-2.3); Non-African American GFR(CKD) >90 (>60 ml/min/1.73 sqM); Potassium 4.1 mmol/L (3.5-5.1); Sodium 136 mmol/L (137-145); Total Bilirubin 0.7 mg/dL (0.2-1.3); Total Protein 6.5 g/dL (6.3-8.2)
[2021-04-25] MEDS ORDERED: ASPIRIN 325 MG TAB PO STA (17:44)
[2021-04-25] MEDS ORDERED: NITROGLYCERIN OINT 1 INCH/GM PACKET TOPICAL STA (17:45)
--- NOTE | 2021-04-25 17:54 | CT ---
EXAMINATION TYPE: CODE STROKE: CT brain wo contr DATE OF EXAM: 04/25/2021 COMPARISON: 04/05/2019 HISTORY: Left sided weakness. CT DLP: 1176.8 mGycm. Automated Exposure Control for Dose Reduction was Utilized. TECHNIQUE: CT scan of the head is performed without contrast. FINDINGS: Ventricles of normal size. There is no mass effect or midline shift. There is no sign of intracranial hemorrhage. The calvarium is intact. IMPRESSION: Negative unenhanced head CT scan. No change.
--- NOTE | 2021-04-25 18:09 | CT ---
EXAMINATION TYPE: CODE STROKE: CTA head neck DATE OF EXAM: 04/25/2021 COMPARISON: None HISTORY: Left sided weakness. CT DLP: 1131 mGycm Automated exposure control for dose reduction was used. CONTRAST: Performed with IV Contrast, patient injected with 65ml mL of Isovue 370. Images obtained from the aor tic arch to the vertex of the brain without IV contrast. There are 3-D post processed images. There is normal branching pattern of the great vessels on the aortic arch. There is arterial flow in the common internal and external carotid arteries bilaterally. There is some medial deviation of the common carotid arteries. There is wide patency of the carotid artery bifurcations. There is arterial flow in both vertebral arteries. There is arterial flow in the vertebrobasilar artery system. There i s no evidence of carotid or vertebral artery aneurysm or dissection. There is arterial flow in the anterior middle and posterior cerebral arteries. There is no mass effec t. There is no sign of intracranial aneurysm or neovascularity. There is normal enhancement of the ve nous sinuses. There is no evidence of intracranial arterial stenosis. IMPRESSION: Negative CT angiogram of the neck. Negative CT angiogram of the brain.
--- NOTE | 2021-04-25 18:37 | XR ---
EXAMINATION TYPE: XR chest 2V DATE OF EXAM: 04/25/2021 COMPARISON: 03/17/2021 HISTORY: Chest pain TECHNIQUE: 2 views FINDINGS: Heart and mediastinum are normal. Lungs are clear. Diaphragm is normal. Bony thorax is inta ct. There is left axillary pacemaker. IMPRESSION: Normal chest. No change.
[2021-04-25] MEDS ORDERED: ALPRAZolam 0.25 MG TAB PO PRN (18:43)
[2021-04-25] MEDS ORDERED: ONDANSETRON 4 MG/2 ML VIAL IVP PRN (18:43)
[2021-04-25] MEDS ORDERED: ACETAMINOPHEN TAB 325 MG TAB PO PRN (18:43)
[2021-04-25] MEDS ORDERED: NALOXONE 0.4 MG/ML 1 ML VIAL IV PRN (18:43)
[2021-04-25 20:38] LABS: Glucose,Whole Blood 159 mg/dL (75-99)
[2021-04-25] MEDS: HEPARIN SODIUM,PORCINE/PF 5,000 UNIT/0.5 ML SYRINGE SQ SCH (23:46)
[2021-04-25] MEDS: MORPHINE SULFATE 4 MG/ML SYRINGE IV PRN (23:46)
[2021-04-26 07:23] LABS: Glucose,Whole Blood 246 mg/dL (75-99)
[2021-04-26 07:34] LABS: Basophils # (A) 0.1 k/uL (0-0.2); Basophils % (A) 1 %; Eosinophils # (A) 0.4 k/uL (0-0.7); Eosinophils % (A) 4 %; HCT 46.1 % (39.0-53.0); HGB 15.4 gm/dL (13.0-17.5); Lymphocytes # (A) 2.5 k/uL (1.0-4.8); Lymphocytes % (A) 29 %; MCH 28.7 pg (25.0-35.0); MCHC 33.4 g/dL (31.0-37.0); MCV 85.8 fL (80.0-100.0); Mean Platelet Volume 7.3; Monocytes # (A) 0.6 k/uL (0-1.0); Monocytes % (A) 7 %; Neutrophils # (A) 4.8 k/uL (1.3-7.7); Neutrophils % (A) 57 %; Platelet Count 198 k/uL (150-450); RBC 5.37 m/uL (4.30-5.90); WBC 8.5 k/uL (3.8-10.6)
[2021-04-26 07:45] LABS: African American GFR (CKD) >90 (>60 ml/min/1.73 sqM); Anion Gap 7 mmol/L; Blood Urea Nitrogen 16 mg/dL (9-20); Calcium 8.7 mg/dL (8.4-10.2); Carbon Dioxide 25 mmol/L (22-30); Chloride 105 mmol/L (98-107); Glucose 241 mg/dL (74-99); Magnesium 2.1 mg/dL (1.6-2.3); Non-African American GFR(CKD) >90 (>60 ml/min/1.73 sqM); Potassium 4.8 mmol/L (3.5-5.1); Sodium 137 mmol/L (137-145)
[2021-04-26] MEDS: HEPARIN SODIUM,PORCINE/PF 5,000 UNIT/0.5 ML SYRINGE SQ SCH ×3 (07:51→23:31)
[2021-04-26] MEDS: MORPHINE SULFATE 4 MG/ML SYRINGE IV PRN ×3 (07:54→23:31)
[2021-04-26] MEDS ORDERED: TICAGRELOR 90 MG TAB PO STA (08:33)
[2021-04-26] MEDS ORDERED: CLOPIDOGREL 75 MG TAB PO SCH (09:00)
[2021-04-26] MEDS: ATORVASTATIN 80 MG TAB PO SCH (09:40)
[2021-04-26] MEDS: SACUBITRIL/VALSARTAN 24 MG-26 MG TABLET PO SCH ×2 (09:40→21:19)
[2021-04-26] MEDS: ASPIRIN 81 MG PO SCH (09:40)
[2021-04-26] MEDS: METOPROLOL SUCCINATE (ER) 100 MG TAB.ER.24H PO SCH (09:40)
--- NOTE | 2021-04-26 09:44 | P.CRDCN ---
History of Present Illness History of present illness: HISTORY OF PRESENTING ILLNESS This is a pleasant 41-year-old male past medical history significant for coronary artery disease status post PCI RCA 2015 and diagonal branch 2019, ischemic cardiomyopathy status post AICD, hypertension, diabetes mellitus, dyslipidemia and chronic systolic heart failure. He follows in the office with Dr Hernandez. We have been asked to see in consultation for chest pain. Patient states for about 1 month he has been having intermittent chest pain and some worsening shortness of breath with exertion. He states yesterday he had left sided stabbing chest pain, describes it as similar to when he had his MN in the past. It is exertional. Non-radiating. He states resting helped relieve his pain. About 10 minutes after an episode of chest pain he had acute onset left sided facial and left arm numbness and tingling. Lasted for about 1 hour and then resolved. He states he did notice his heart was racing. Presented to the ER for further evaluation. He denies any dizziness, lightheadedness or syncope. He denies any tobacco use. DIAGNOSTICS -EKG reveals sinus rhythm with poor R-wave progression. -Telemetry tracings indicate sinus rhythm HR trend 90s-110, with no acute arrhythmia. No evidence of atrial fibrillation noted. -Chest xray negative for an acute cardiopulmonary process. -Laboratory reviewed, CBC unremarkable, sodium 137, potassium 4.8, BUN 16, serum creatinine 0.9, magnesium 2.1, cardiac enzymes negative 3. -Current cardiac medications include entresto 24/26 mg BID, aspirin 81 mg daily, atorvastatin 80 mg daily, Plavix 75 mg daily, Lasix 80 mg daily, Toprol 100 mg daily and Aldactone 25 mg daily. -Most recent echocardiogram obtained July 2020 revealed impaired LV systolic function with ejection fraction 25%. -Most recent cardiac catheterization 08/2019 revealed critical disease involving the PLV branch of the RCA, chronic total occlusion of the left circumflex which fills by ipsilateral collaterals from the left coronary system, critical disease involving the large diagonal branch of the LAD. Patient underwent PCI to the [facility] diagonal branch. REVIEW OF SYSTEMS At the time of my exam: CONSTITUTIONAL: Denies fever or chills. CARDIOVASCULAR: Denies chest pain, shortness of breath, orthopnea, PND or palpitations. RESPIRATORY: Denies cough. GASTROINTESTINAL: Denies abdominal pain, diarrhea, constipation, nausea or vomi ting. MUSCULOSKELETAL: Denies myalgias. NEUROLOGIC: Denies numbness, tingling, headache or weakness. ENDOCRINE: Denies fatigue, weight change, polydipsia or polyurina. GENITOURINARY: Denies burning, hematuria or urgency with micturation. HEMATOLOGIC: Denies history of anemia or bleeding. PHYSICAL EXAMINATION Blood pressure 141/87, heart rate 86, afebrile, saturations greater than 92% on room air CONSTITUTIONAL: No apparent distress. HEENT: Head is normocephalic. Pupils are equal, round. Sclerae anicteric. Mucous membranes of the mouth are moist. No JVD. No carotid bruit. CHEST EXAMINATION: Lungs are clear to auscultation. No chest wall tenderness is noted on palpation or with deep breathing. HEART EXAMINATION: Regular rate and rhythm. S1, S2 heard. No murmurs, gallops or rub. ABDOMEN: Soft, nontender. EXTREMITIES: 2+ peripheral pulses, no lower extremity edema and no calf tenderne ss. NEUROLOGIC EXAMINATION: Patient is awake, alert and oriented x3. ASSESSMENT Chest pain Left sided facial and arm numbness and tingling History of coronary artery disease status post PCI RCA 2015 and diagonal branch 2019 Chronic systolic heart failure, clinically euvolemic Ischemic cardiomyopathy status post AICD placement 2012 (Search to Phone) Hypertension Dyslipidemia Diabetes mellitus, type 2 PLAN -Obtain 2D echocardiogram with contrast, bubble study -Interrogate patient's device to evaluate atrial fibrillation or arrhythmias -Continue cardiac telemetry -Neurology consulted -Patient's chest pain possibly angina, acute coronary syndrome has been ruled out with negative cardiac enzymes and no acute EKG changes to suggest ischemia. At this time, we recommend further neurological evaluation. We will interrogate patient's device and get a 2D echo. We will continue home cardiac medications. Consider cardiac catheterization in 1 week pending patient's symptoms and hospital course. Will discuss with patient's primary columnist/commentator Dr. Hernandez. Nurse Practitioner note has been reviewed, I agree with a documented findings and plan of care. Patient was seen and examined. Past Medical History Past Medical History: Coronary Artery Disease (CAD), Chest Pain / Angina, Heart Failure, Diabetes Mellitus, Hyperlipidemia, Hypertension, Myocardial Infarction (MN), Sleep Apnea/CPAP/BIPAP, Syncope Additional Past Medical History / Comment(s): Cardiomyopathy with AICD, IDDM type II, neuropathy bilateral feet, SP with Cpap use, migraines, chronic back pain. Last Myocardial Infarction Date:: 2015 History of Any Multi-Drug Resistant Organisms: None Reported Past Surgical History: AICD, Heart Catheterization, Heart Catheterization With Stent Additional Past Surgical History / Comment(s): 10/27/12 AICD, DFTs, PCI with 2 stents Past Anesthesia/Blood Transfusion Reactions: No Reported Reaction Date of Last Stent Placement:: 02/03/16 Type of Cardiac Device: AICD Device Placement Date:: 2012 Past Psychological History: Anxiety, Depression Smoking Status: Former smoker Past Alcohol Use History: None Reported Additional Past Alcohol Use History / Comment(s): quit in 2018 Past Drug Use History: None Reported - Past Family History Mother Family Medical History: No Reported History Additional Family Medical History / Comment(s): Mother is healthy Brother(s) Family Medical History: Myocardial Infarction (MN) Additional Family Medical History / Comment(s): Brother of a MN at the age of 35yrs. Father Family Medical History: Liver Disease Additional Family Medical History / Comment(s): Father when pt was 19 yrs old from liver disease. He was an alcoholic. Medications and Allergies Home Medications Medication Instructions Recorded Confirmed Type Aspirin EC [Ecotrin Low Dose] 81 mg PO DAILY 10/13/18 04/25/21 History metFORMIN HCL [Glucophage] 1,000 mg PO DAILY 06/14/19 04/25/21 History Clopidogrel [Plavix] 75 mg PO DAILY #90 tab 04/01/20 04/25/21 Rx Spironolactone [Aldactone] 25 mg PO DAILY #30 tab 04/01/20 04/25/21 Rx Atorvastatin [Lipitor] 80 mg PO DAILY 07/25/20 04/25/21 History Furosemide [Lasix] 80 mg PO DAILY 07/25/20 04/25/21 History Metoprolol Succinate (ER) [Toprol 100 mg PO DAILY tab.er.24h 07/26/20 04/25/21 Rx XL] HYDROcodone/APAP 5-325MG [[place] 1 tab PO Q6H PRN 03/05/21 04/25/21 History 5-325] Insulin NPH Hum/Reg Insulin Hm 60 unit SQ DAILY 03/05/21 04/25/21 History [humuLIN 70/30 Kwikpen] Sacubitril/Valsartan [Entresto 24 1 tab PO BID 03/05/21 04/25/21 History mg-26 mg Tablet] Albuterol Sulfate [Proair Hfa] 2 puff INHALATION RT-Q6H PRN 03/17/21 04/25/21 History Dulaglutide [Trulicity] 0.75 mg SQ TU 04/25/21 04/25/21 History INSULIN ASPART (NovoLOG) [NovoLOG 30 unit SQ AC-TID 04/25/21 04/25/21 History (formulary)] Allergies Allergy/AdvReac Type Severity Reaction Status Date / Time Penicillins Allergy Unknown Verified 04/25/21 16:47 Childhood Physical Exam Vitals: Vital Signs Temp Pulse Pulse Resp BP BP Pulse Ox 04/26/21 02:00 93 17 04/26/21 01:48 97.6 F 93 17 143/97 95 04/25/21 21:39 93 17 04/25/21 20:30 98.4 F 93 17 137/97 92 L 04/25/21 18:30 98.1 F 93 18 140/88 97 04/25/21 18:00 98.1 F 91 16 149/94 96 04/25/21 17:45 98.1 F 93 16 148/94 96 04/25/21 17:30 98.0 F 101 H 18 95 04/25/21 17:15 97.9 F 100 18 160/101 97 04/25/21 17:00 98.3 F 107 H 18 151/103 95 04/25/21 16:56 107 H 04/25/21 16:40 98.4 F 119 H 20 145/96 95 Intake and Output 04/25/21 04/26/21 04/26/21 22:59 06:59 14:59 Other: Voiding Method Toilet Toilet # Voids 0 1 Weight 147.418 kg 141.7 kg Results 04/26/21 07:03 04/26/21 07:03 Cardiac Enzymes 04/25/21 04/25/21 04/25/21 Range/Units 17:17 17:17 19:32 AST 19 (17-59) U/L Troponin I <0.012 <0.012 (0.000-0.034) ng/mL 04/25/21 Range/Units 21:34 AST (17-59) U/L Troponin I <0.012 (0.000-0.034) ng/mL Coagulation 04/25/21 Range/Units 17:17 PT 9.6 (9.0-12.0) sec APTT 22.8 (22.0-30.0) sec CBC 04/25/21 Range/Units 17:17 WBC 8.0 (3.8-10.6) k/uL RBC 5.51 (4.30-5.90) m/uL Hgb 16.3 (13.0-17.5) gm/dL Hct 46.7 (39.0-53.0) % Plt Count 202 (150-450) k/uL Comprehensive Metabolic Panel 04/25/21 Range/Units 17:17 Sodium 136 L (137-145) mmol/L Potassium 4.1 (3.5-5.1) mmol/L Chloride 103 (98-107) mmol/L Carbon Dioxide 22 (22-30) mmol/L BUN 15 (9-20) mg/dL Creatinine 0.67 (0.66-1.25) mg/dL Glucose 249 H (74-99) mg/dL Calcium 8.9 (8.4-10.2) mg/dL AST 19 (17-59) U/L ALT 20 (4-49) U/L Alkaline Phosphatase 116 (38-126) U/L Total Protein 6.5 (6.3-8.2) g/dL Albumin 3.8 (3.5-5.0) g/dL Current Medications Generic Name Dose Route Start Last Admin Trade Name Freq PRN Reason Stop Dose Admin Acetaminophen 650 mg 04/25/21 18:43 Acetaminophen Tab 325 Mg Tab PO Q6HR PRN Mild Pain or Fever > 100.5 Alprazolam 0.25 mg 04/25/21 18:43 Alprazolam 0.25 Mg Tab PO Q6HR PRN Anxiety Heparin Sodium (Porcine) 5,000 unit 04/26/21 00:00 04/25/21 23:46 Heparin Sodium,Porcine/Pf 5,000 Unit/0.5 Ml Syringe SQ 5,000 unit Q8HR KSENIA Administration Morphine Sulfate 4 mg 04/25/21 18:43 04/25/21 23:46 Morphine Sulfate 4 Mg/Ml Syringe IV 4 mg Q4HR PRN Administration Severe Pain Naloxone HCl 0.2 mg 04/25/21 18:43 Naloxone 0.4 Mg/Ml 1 Ml Vial IV Q2M PRN Opioid Reversal Ondansetron HCl 4 mg 04/25/21 18:43 Ondansetron 4 Mg/2 Ml Vial IVP Q8HR PRN Nausea And Vomiting Intake and Output 04/25/21 04/26/21 04/26/21 22:59 06:59 14:59 Other: Voiding Method Toilet Toilet # Voids 0 1 Weight 147.418 kg 141.7 kg 04/25/21 17:17 04/25/21 17:17
[2021-04-26] MEDS: SPIRONOLACTONE 25 MG TAB PO SCH (09:49)
--- NOTE | 2021-04-26 10:08 | P.CNNES ---
History of Present Illness Consult date: 04/26/21 Requesting physician: Scott Stephens Reason for Consult: TIA History of Present Illness: This is a 41-year-old right-handed gentleman with medical history of type II DM (since 2012), Coronary artery disease s/p stent (once in 2014 and other in 2020), cardiomyopathy with AICD, diabetic peripheral neuropathy, chronic back pa in, SP on CPAP as into the emergency department on 04/25/2021 for chest pain intermittent for the last 2 days prior to presenting the hospital. Also the patient the complaint of left facial droop and numbness that started at 11:30am on 04/25/2021 and lasting for one hour. Patient denies any other neurological problems. He denies history of stroke or TIA in the past. Patient takes aspirin 81 mg as well as Plavix 75 mg daily. Patient is also on Lipitor 80 mg daily. Patient is compliant taking his medication. He states that his diabetes is not well controlled. He is a former smoker and smoked 1 pack a day for 22 years and stopped about 3 years ago. The patient denies any illicit drug use or alcohol use. Some other workup in the hospital consisted of: Initial vital signs his blood pressure of 145/96, heart rate of 119, respiratory of 20, temperature of 98.4 Fahrenheit oral pulse ox of 95% room air. CBC with differential is unremarkable Initial chemistry panel is the sodium is 136 which is minimally the low to borderline low normal, serum glucose is 249 otherwise aggressive chemistry panel is unremarkable. Calcium is 8.9, magnesium is 1.9, AST of 19, ALT of 20 at. Martinez virus PCR was not detected. PT, INR and PTT are within normal limits. CT of the head is reported as negative on has had computed tomography scan. No change. I personally reviewed the CT of the head there is no acute or subacute ischemia and there is no intraperitoneal hemorrhage CT angiography of the head and neck was reported as negative. In the ED was felt the patient the did not have any facial droop but had the left-sided numbness with NIH of a 1. Stroke code was activated and ED team discussed it with Dr. Lyons and it was felt possible TIA and patient was given ASA 325mg once per ED note. No IV TPA because no disabling symptoms. Review of Systems Review of system: The 12 point system was reviewed and apparent positive and negative per HPI. Past Medical History Past Medical History: Coronary Artery Disease (CAD), Chest Pain / Angina, Heart Failure, Diabetes Mellitus, Hyperlipidemia, Hypertension, Myocardial Infarction (HI), Sleep Apnea/CPAP/BIPAP, Syncope Additional Past Medical History / Comment(s): Cardiomyopathy with AICD, IDDM type II, neuropathy bilateral feet, SP with Cpap use, migraines, chronic back pain. Last Myocardial Infarction Date:: 2015 History of Any Multi-Drug Resistant Organisms: None Reported Past Surgical History: AICD, Heart Catheterization, Heart Catheterization With Stent Additional Past Surgical History / Comment(s): 10/27/12 AICD, DFTs, PCI with 2 stents Past Anesthesia/Blood Transfusion Reactions: No Reported Reaction Date of Last Stent Placement:: 02/03/16 Type of Cardiac Device: AICD Device Placement Date:: 2012 Past Psychological History: Anxiety, Depression Smoking Status: Former smoker Past Alcohol Use History: None Reported Additional Past Alcohol Use History / Comment(s): quit in 2018 Past Drug Use History: None Reported - Past Family History Mother Family Medical History: No Reported History Additional Family Medical History / Comment(s): Mother is healthy Brother(s) Family Medical History: Myocardial Infarction (HI) Additional Family Medical History / Comment(s): Brother of a HI at the age of 35yrs. Father Family Medical History: Liver Disease Additional Family Medical History / Comment(s): Father when pt was 19 yrs old from liver disease. He was an alcoholic. Medications and Allergies Home Medications Medication Instructions Recorded Confirmed Type Aspirin EC [Ecotrin Low Dose] 81 mg PO DAILY 10/13/18 04/25/21 History metFORMIN HCL [Glucophage] 1,000 mg PO DAILY 06/14/19 04/25/21 History Clopidogrel [Plavix] 75 mg PO DAILY #90 tab 04/01/20 04/25/21 Rx Spironolactone [Aldactone] 25 mg PO DAILY #30 tab 04/01/20 04/25/21 Rx Atorvastatin [Lipitor] 80 mg PO DAILY 07/25/20 04/25/21 History Furosemide [Lasix] 80 mg PO DAILY 07/25/20 04/25/21 History Metoprolol Succinate (ER) [Toprol 100 mg PO DAILY tab.er.24h 07/26/20 04/25/21 Rx XL] HYDROcodone/APAP 5-325MG [[place]wood 1 tab PO Q6H PRN 03/05/21 04/25/21 History 5-325] Insulin NPH Hum/Reg Insulin Hm 60 unit SQ DAILY 03/05/21 04/25/21 History [humuLIN 70/30 Kwikpen] Sacubitril/Valsartan [Entresto 24 1 tab PO BID 03/05/21 04/25/21 History mg-26 mg Tablet] Albuterol Sulfate [Proair Hfa] 2 puff INHALATION RT-Q6H PRN 03/17/21 04/25/21 History Dulaglutide [Trulicity] 0.75 mg SQ TU 04/25/21 04/25/21 History INSULIN ASPART (NovoLOG) [NovoLOG 30 unit SQ AC-TID 04/25/21 04/25/21 History (formulary)] Allergies Allergy/AdvReac Type Severity Reaction Status Date / Time Penicillins Allergy Unknown Verified 04/25/21 16:47 Childhood Physical Examination - Vital Signs Vital Signs: Vital Signs Temp Pulse Pulse Resp BP BP Pulse Ox 04/26/21 02:00 93 17 04/26/21 01:48 97.6 F 93 17 143/97 95 04/25/21 21:39 93 17 04/25/21 20:30 98.4 F 93 17 137/97 92 L 04/25/21 18:30 98.1 F 93 18 140/88 97 04/25/21 18:00 98.1 F 91 16 149/94 96 04/25/21 17:45 98.1 F 93 16 148/94 96 04/25/21 17:30 98.0 F 101 H 18 95 04/25/21 17:15 97.9 F 100 18 160/101 97 04/25/21 17:00 98.3 F 107 H 18 151/103 95 04/25/21 16:56 107 H 04/25/21 16:40 98.4 F 119 H 20 145/96 95 Intake and Output 04/25/21 04/26/21 04/26/21 22:59 06:59 14:59 Other: Voiding Method Toilet Toilet # Voids 0 1 Weight 147.418 kg 141.7 kg GENERAL: The patient is lying in bed and is not in acute distress. CHEST: The heart rate is regular rate rhythm. No murmurs to auscultation. No carotid bruit bilaterally. LUNG: Clear to auscultation bilaterally no wheezing noted throughout. Not labored breathing. ABDOMEN/GI: Bowel sounds present in all 4 quadrants. No tenderness to palpation throughout. NEUROLOGICAL: Higher mental function: The patient is awake, alert, oriented to self, place and time. Patient is following commands. No aphasia and no neglect. Cranial nerves: The pupils are round, equal and reactive to light and accommodation. Visual hauser are full to confrontation throughout. Extraocular movement is intact no nystagmus is noted. Facial sensation is decreased to touch over the entire left side. The facial strength is normal throughout. Hearing is normal bilaterally to hand rub. Tongue is midline and moved [id number] without any difficulty. No dysarthria is noted. Shoulder shrug is normal bilaterally. Motor: Gait is deferred. The strength is left upper extremity is 4+ to 5-. Otherwise 5 over 5 throughout. Normal tone and bulk. Cerebellum: Normal finger to nose bilaterally. Sensation: Sensation is decreased over entire left side to touch. Reflexes (right/left): 1+ throughout except brachioradialis are 2+. Plantars are mute bilaterally. Results - Laboratory Findings CBC and BMP: 04/26/21 07:03 04/26/21 07:03 Abnormal Lab Findings: Abnormal Labs 04/25/21 04/25/21 04/25/21 17:17 17:28 20:36 Sodium 136 L Glucose 249 H POC Glucose (mg/dL) 226 H 159 H 04/26/21 04/26/21 07:03 07:22 Sodium Glucose 241 H POC Glucose (mg/dL) 246 H Assessment and Plan Assessment: * Acute left facial droop and left-sided numbness (facial and upper and lower extremity. Left facial droop resolved and on examination had mild left upper extremity weakness) likely due to acute ischemic stroke. No IV tpa since low NIH and no disabling symptoms. Patient has multiple risk factors for stroke. * Acute chest pain * History of coronary artery disease status post stent * History of cardiomyopathy with AICD * Type 2 diabetes mellitus and on presentation sugar was in the 200 (last HbA1c is 11.8 on 08/2019). * Hypertriglyceridemia * Diabetic peripheral neuropathy * Chronic back pain * Obstructive sleep apnea * Morbid obesity * Former Nicotine use Plan: * Continue patient's home dose of aspirin 81 mg and started the patient on Brilinta 90mg 1 tab bid with loading 180mg once. We'll discontinue the patient's home dose of Plavix 75 mg daily from neurological perspective (since failed medication). * We'll continue Lipitor 80 mg daily at bedtime. * Cannot get MRI Brain since has AICD, therefore will get repeat CT head tomorrow. * I ordered TSH, hemoglobin A1c. 2-D echo is ordered. * Patient had a recent lipid panel on 03/18/2021 and the triglyceride is 502, cholesterol is 135, LDL is 40 to an HDL is 30. There is no need to repeat the lipid panel. Recommend fibrate use for his hypertrigyceridemia and will defer management to primary team and cardiology team. * Hemoglobin A1c last was 11.8 on 2019 * PT, OT are consulted * Continue neuro checks * Cardiac monitoring * Cardiac team is consulted * He was counseled on weight loss. * We'll defer the rest of the medical management to the primary team. * For DVT prophylaxis: On subq heparin. * Upon discharge, patient is to follow-up with a neurologist as outpatient within 1-2 weeks. The casiano is discussed with the patient and his nurse. Thank you for the consultation. Olman Pollard M.D. Neuro-Hospitalist Time with Patient: Greater than 30
--- NOTE | 2021-04-26 11:25 | ECHOF ---
Referral Reason:Rule out atrial thrombus MEASUREMENTS -------- HEIGHT: 182.9 cm WEIGHT: 141.5 kg BP: 143/97 RVIDd: 3.5 cm (< 3.3) IVSd: 1.3 cm (0.6 - 1.1) LVIDd: 6.7 cm (3.9 - 5.3) LVPWd: 1.3 cm (0.6 - 1.1) IVSs: 1.6 cm LVIDs: 4.9 cm LVPWs: 1.5 cm LA Diam: 4.7 cm (2.7 - 3.8) LAESV Index (A-L): 27.99 ml/m Ao Diam: 3.5 cm (2.0 - 3.7) AV Cusp: 2.5 cm (1.5 - 2.6) MV EXCURSION: 20.651 mm (> 18.000) MV EF SLOPE: 129 mm/s (70 - 150) EPSS: 1.6 cm MV E Andres: 0.63 m/s MV DecT: 180 ms MV A Andres: 0.80 m/s MV E/A Ratio: 0.78 RAP: 5.00 mmHg RVSP: 33.95 mmHg FINDINGS -------- Paced rhythm. This was a technically difficult study with suboptimal views. The left ventricle is moderately dilated. There is mild concentric left ventricular hypertrophy. Overall left ventricular systolic function is severely impaired with, an EF between 20 - 25 %. Glob al hypokinesis The right ventricle is mildly enlarged. The left atrium is moderately dilated. The right atrium is normal in size. Negative saline bubbles study. No shunt noted The aortic valve is trileaflet, and appears structurally normal. No aortic stenosis or regurgitation. There is trace to mild mitral regurgitation. Mild tricuspid regurgitation present. There is borderline pulmonary hypertension. The right ventr icular systolic pressure, as measured by Doppler, is 33.95mmHg. The pulmonic valve was not well visualized. The aortic root size is normal. Normal inferior vena cava with normal inspiratory collapse consistent with estimated right atrial pre ssure of 5 mmHg. There is no pericardial effusion. CONCLUSIONS -------- 1. The left ventricle is moderately dilated. 2. There is mild concentric left ventricular hypertrophy. 3. Overall left ventricular systolic function is severely impaired with, an EF between 20 - 25 %. 4. Global hypokinesis 5. The right ventricle is mildly enlarged. 6. The left atrium is moderately dilated. 7. Negative saline bubbles study. No shunt noted 8. There is trace to mild mitral regurgitation. 9. Mild tricuspid regurgitation present. 10. There is borderline pulmonary hypertension. 11. The right ventricular systolic pressure, as measured by Doppler, is 33.95mmHg. 12. There is no pericardial effusion. FIELD SALES EXECUTIVE: Kasey Blum RDCS
[2021-04-26 12:10] LABS: Glucose,Whole Blood 265 mg/dL (75-99)
[2021-04-26] MEDS ORDERED: HYDROcodone/APAP 5-325MG 1 EACH TAB PO PRN (16:20)
[2021-04-26 17:21] LABS: Glucose,Whole Blood 255 mg/dL (75-99)
[2021-04-26] MEDS ORDERED: NITROGLYCERIN SL TABS 0.4 MG TAB SUBLINGUAL ONE (17:30)
[2021-04-26] MEDS: NITROGLYCERIN SL TABS 0.4 MG TAB SUBLINGUAL PRN ×2 (17:41→17:50)
[2021-04-26] MEDS: INSULIN ASPART (NovoLOG) 100 UNIT/ML VIAL SQ SCH (18:03)
[2021-04-26] MEDS: TICAGRELOR 90 MG TAB PO SCH (18:06)
[2021-04-26 20:32] LABS: Glucose,Whole Blood 225 mg/dL (75-99)
[2021-04-27 07:22] LABS: Glucose,Whole Blood 235 mg/dL (75-99)
--- NOTE | 2021-04-27 07:56 | CT ---
EXAMINATION TYPE: CT brain wo con DATE OF EXAM: 04/27/2021 COMPARISON: CT brain April 05, 2019 HISTORY: Left sided numbness and weakness. CT DLP: 1126.5 mGycm. Automated Exposure Control for Dose Reduction was Utilized. TECHNIQUE: CT scan of the head is performed without contrast. FINDINGS: There is no acute intracranial hemorrhage, mass effect, or midline shift identified. The ventricles and sulci are stable and within normal limits in size. Marie-white matter differentiation is maintained. Mild mucosal thickening inferior aspect bilateral maxillary sinuses otherwise paranasa l sinuses are clear and globes are intact bilaterally. IMPRESSION: No acute findings are evident.
[2021-04-27] MEDS: HEPARIN SODIUM,PORCINE/PF 5,000 UNIT/0.5 ML SYRINGE SQ SCH ×2 (09:13→17:58)
[2021-04-27] MEDS: INSULIN ASPART (NovoLOG) 100 UNIT/ML VIAL SQ SCH ×3 (09:13→17:58)
[2021-04-27] MEDS: INSULIN DETEMIR (LEVEMIR) 100 UNIT/ML SYR SQ SCH (09:13)
[2021-04-27] MEDS: MORPHINE SULFATE 4 MG/ML SYRINGE IV PRN ×4 (09:14→22:06)
[2021-04-27] MEDS: SPIRONOLACTONE 25 MG TAB PO SCH (09:14)
[2021-04-27] MEDS: FUROSEMIDE 80 MG TAB PO SCH (09:14)
[2021-04-27] MEDS: SACUBITRIL/VALSARTAN 24 MG-26 MG TABLET PO SCH ×2 (09:14→20:29)
[2021-04-27] MEDS: TICAGRELOR 90 MG TAB PO SCH ×2 (09:14→20:29)
[2021-04-27] MEDS: METOPROLOL SUCCINATE (ER) 100 MG TAB.ER.24H PO SCH (09:14)
[2021-04-27] MEDS: ATORVASTATIN 80 MG TAB PO SCH (09:14)
[2021-04-27] MEDS: ASPIRIN 81 MG PO SCH (09:14)
--- NOTE | 2021-04-27 11:03 | P.PN ---
Subjective This is a pleasant 41-year-old male past medical history significant for coronary artery disease status post PCI RCA 2015 and diagonal branch 2019, ischemic cardiomyopathy status post AICD, hypertension, diabetes mellitus, dyslipidemia and chronic systolic heart failure. He follows in the office with Dr Hernandez. We have been asked to see in consultation for chest pain. Patient states for about 1 month he has been having intermittent chest pain and some worsening shortness of breath with exertion. However, over the past couple days his chest pain has worsened. He states yesterday he had left sided stabbing chest pain, describes it as similar to when he had his VT in the past. It is exertional. Non-radiating. He states resting helped relieve his pain. About 10 minutes after an episode of chest pain he had acute onset left sided facial and left arm numbness and tingling. Lasted for about 1 hour and then resolved. He states he did notice his heart was racing. Presented to the ER for further evaluation. He denies any dizziness, lightheadedness or syncope. He denies any tobacco use. 04/27/2021 Patient seen and examined at bedside, states his left sided numbness and weakness has improved. However, he continues to have left sided chest pain. Last night patient had an episode of sharp left sided chest pain, radiated to his left shoulder, he states it lasted about an hour. Was given sublingual nitro. He states this pain is similar to his pain from prior MIs. He states he is having chest pain with light activity, walking to the bathroom or around his room. He has associated nausea. Echocardiogram revealed EF of 2025 percent, global hypokinesis, mild tricuspid regurgitation Interrogation of device revealed sinus mechanism, no atrial fibrillation or flutter noted. Patient with occasional episodes of NSVT. Telemetry reviewed, patient maintaining sinus mechanism, heart rate in the 70s80s, episode of sinus tachycardia overnight. PHYSICAL EXAMINATION Vitals: Reviewed CONSTITUTIONAL: No apparent distress. HEENT: Neck Supple. No JVD. CHEST EXAMINATION: Lungs are clear to auscultation. No chest wall tenderness is noted on palpation or with deep breathing. HEART EXAMINATION: Regular rate and rhythm. S1, S2 heard. No murmurs, gallops or rub. ABDOMEN: Soft, nontender. EXTREMITIES: 2+ peripheral pulses, no lower extremity edema and no calf tenderness. NEUROLOGIC EXAMINATION: Patient is awake, alert and oriented x3. ASSESSMENT Chest pain Left sided facial and arm numbness and tingling History of coronary artery disease status post PCI RCA 2015 and diagonal branch 2019 Chronic systolic heart failure, clinically euvolemic Ischemic cardiomyopathy status post AICD placement 2012 ([facility]) Hypertension Dyslipidemia Diabetes mellitus, type 2 PLAN -Increase metoprolol succinate to 150mg daily -Patient's continued chest pain concerning for unstable angina. We recommend cardiac catheterization at this time. Spoke to neurology, ok for cardiac catheterization. We will plan for tomorrow with Dr. Hernandez, patient is agreeable. NPO after midnight. -I have discussed the risks, benefits and alternative therapies for the above- mentioned procedure and for both sedation/analgesia as well as necessary blood product administration, if indicated, as they pertain to this patient. The patient has indicated understanding and acceptance of the risks and procedures discussed. Questions have been answered appropriately and he is agreeable to move forward with the above-stated procedure. -Continue cardiac telemetry -Neurology following -Further recommendations based on clinical course Nurse Practitioner note has been reviewed, I agree with a documented findings and plan of care. Patient was seen and examined. Objective - Vital Signs Vital signs: Vital Signs Temp 98.1 F 04/27/21 07:15 Pulse 83 04/27/21 07:15 Resp 16 04/27/21 07:15 BP 132/87 04/27/21 07:15 Pulse Ox 97 04/27/21 07:15 Intake & Output 04/26/21 04/27/21 04/27/21 18:59 06:59 18:59 Intake Total 118 Balance 118 Weight 142.2 kg Intake: Oral 118 Other: Voiding Method Toilet Toilet # Voids 4 2 - Labs CBC & Chem 7: 04/26/21 07:03 04/26/21 07:03 Labs: Abnormal Lab Results - Last 24 Hours (Table) 04/26/21 04/26/21 04/26/21 Range/Units 07:03 12:09 17:20 POC Glucose (mg/dL) 265 H 255 H (75-99) mg/dL Hemoglobin A1c 11.2 H (4.0-6.0) % 04/26/21 04/27/21 Range/Units 20:30 07:16 POC Glucose (mg/dL) 225 H 235 H (75-99) mg/dL Hemoglobin A1c (4.0-6.0) %
--- NOTE | 2021-04-27 11:33 | P.PN ---
Subjective Progress Note Date: 04/27/21 The patient seen at bedside and he states that the he continues to have some numbness over the left the upper extremity but he feels better today compared to his initial presentation. He feels he has more strength today compared to initial presentation. He denies of any neurological deficit. It seems that overnight he continues to have chest pain. Objective - Vital Signs Vital signs: Vital Signs Temp 98.1 F 04/27/21 07:15 Pulse 83 04/27/21 08:00 Resp 16 04/27/21 08:00 BP 132/87 04/27/21 07:15 Pulse Ox 97 04/27/21 07:15 Intake & Output 04/26/21 04/27/21 04/27/21 18:59 06:59 18:59 Intake Total 118 115 Balance 118 115 Weight 142.2 kg Intake: Oral 118 115 Other: Voiding Method Toilet Toilet Toilet # Voids 4 2 - Exam GENERAL: The patient is lying in bed and is not in acute distress. CHEST: The heart rate is regular rate rhythm. No murmurs to auscultation. No carotid bruit bilaterally. LUNG: Clear to auscultation bilaterally no wheezing noted throughout. Not labored breathing. ABDOMEN/GI: Bowel sounds present in all 4 quadrants. No tenderness to palpation throughout. NEUROLOGICAL: Higher mental function: The patient is awake, alert, oriented to self, place and time. Patient is following commands. No aphasia and no neglect. Cranial nerves: The pupils are round, equal and reactive to light and acco mmodation. Visual hauser are full to confrontation throughout. Extraocular movement is intact no nystagmus is noted. Facial sensation is decreased to touch over the entire left side. The facial strength is normal throughout. Hearing is normal bilaterally to hand rub. Tongue is midline and moved [id number] without any difficulty. No dysarthria is noted. Shoulder shrug is normal bilaterally. Motor: Gait is deferred. The strength is left upper extremity is 4+ to 5-. and left lower extremity is 5-/5 Otherwise 5 over 5 throughout. Normal tone and bulk. Cerebellum: Normal finger to nose bilaterally. Sensation: Sensation is decreased over entire left side to touch. Reflexes (right/left): 1+ throughout except brachioradialis are 2+. Plantars are mute bilaterally. WORK-UP: TSH is 2.870 HbA1c: 11.2 Martinez virus PCR was not detected. PT, INR and PTT are within normal limits. CT of the head ON 04/25/21 is reported as negative on has had computed tomography scan. No change. I personally reviewed the CT of the head there is no acute or subacute ischemia and there is no intraperitoneal hemorrhage CT angiography of the head and neck was reported as negative. Repeat CT head on 04/27/21: Is reported as no acute finding are evident. I personally reviewed the CT of the head and I do not appreciate any significant acute or subacute ischemia or any intraparenchymal hemorrhage. 2-D echo was reported as mild concentric left ventricle hypertrophy. Severely impaired left ventricle systolic function with ejection fraction of 2025%. Global hypokinesis. Left atrium is mildly dilated. - Labs CBC & Chem 7: 04/26/21 07:03 04/26/21 07:03 Labs: Abnormal Lab Results - Last 24 Hours (Table) 04/26/21 04/26/21 04/26/21 Range/Units 07:03 12:09 17:20 POC Glucose (mg/dL) 265 H 255 H (75-99) mg/dL Hemoglobin A1c 11.2 H (4.0-6.0) % 04/26/21 04/27/21 Range/Units 20:30 07:16 POC Glucose (mg/dL) 225 H 235 H (75-99) mg/dL Hemoglobin A1c (4.0-6.0) % Assessment and Plan Assessment: * Acute left facial droop and left-sided numbness (Left facial droop resolved but on examination had mild left upper and lower extremity weakness) likely due to acute ischemic stroke (not appreciated on repeat CT head since could be too small and cannot get MRI Brain since has AICD). No IV tpa since low NIH and no disabling symptoms. Patient has multiple risk factors for stroke with significant cardiac factors. * Acute chest pain * History of coronary artery disease status post stent * History of cardiomyopathy with AICD with current ejection fraction of 20-25% * Chronic systolic heart failure * Uncontrolled Type 2 diabetes mellitus (HbA1c is 11.2). * Hypertriglyceridemia * Diabetic peripheral neuropathy * Chronic back pain * Obstructive sleep apnea * Morbid obesity * Former Nicotine use Plan: * Continue patient's home dose of aspirin 81 mg and started the patient on Brilinta 90mg 1 tab bid. Discontinued the patient's home dose of Plavix 75 mg daily from neurological perspective (since failed medication). * We'll continue Lipitor 80 mg daily at bedtime. * Cannot get MRI Brain since has AICD. * From a neurological perspective patient is clear for cardiac cath. He was notified that heparin drip will likely be used during cardiac cath and there is possible ris of intracranial bleed especially with likely acute ischemic stroke. He is aware of that and wants to pursue with cardiac cath. * Patient had a recent lipid panel on 03/18/2021 and the triglyceride is 502, cholesterol is 135, LDL is 40 to an HDL is 30. There is no need to repeat the lipid panel. Recommend fibrate use for his hypertrigyceridemia and will defer management to primary team and cardiology team. * PT, OT are consulted * Continue neuro checks * Cardiac monitoring * Cardiac team is consulted * He was counseled on weight loss. * We'll defer the rest of the medical management to the primary team. * For DVT prophylaxis: On subq heparin. * Upon discharge, patient is to follow-up with a neurologist as outpatient within 1-2 weeks. * Condition: Guarded. The casiano is discussed with the patient and his nurse. Olman Pollard M.D. Neuro-Hospitalist Time with Patient: Less than 30
[2021-04-27 12:21] LABS: Glucose,Whole Blood 204 mg/dL (75-99)
--- NOTE | 2021-04-27 12:45 | HP ---
HISTORY AND PHYSICAL CHIEF COMPLAINT: Chest pain and left-sided hypesthesias. HISTORY OF PRESENT ILLNESS: This is another admission for this noncompliant 41-year-old obese white male with a longstanding history of coronary artery disease, cardiomyopathy, congestive heart failure, uncontrolled diabetes, Covid 19 and hyperlipidemia. He is in the hospital frequently for episodes of unstable angina, uncontrolled diabetes and congestive heart failure. He presented this time with chest pain, left-sided hypesthesias. It was a question whether not he had a TIA or CVA. He had left facial weakness. He denied headache or trauma. REVIEW OF SYSTEMS: He had no change in vision including diplopia, amaurosis fugax, blurred vision, etc. He did not have a headache. He has had no shortness of breath, diaphoresis, cough, hemoptysis, abdominal pain, nausea, vomiting, melena, hematochezia, jaundice, hepatitis, cirrhosis, hematuria, dysuria, incontinence, etc. Blood sugars are elevated. Past medical history, family history and personal and social histories are significant and can be found in his multiple recent admitting discharge summaries. He never takes his medications reliably. He is supposed to be on his spironolactone, atorvastatin, metformin, ibuprofen, clopidogrel, Lasix, Humulin 70/30, metoprolol, and aspirin. ALLERGIES: He is ALLERGIC to penicillin. The remainder of his history is unremarkable. He continues to smoke. PHYSICAL EXAMINATION: Blood pressure is 132/90 with a pulse of 88, respirations of 23. He is afebrile. In general, he appeared to be overweight, in no acute distress. Skin color is normal. Skin is warm, dry. Lymph nodes are not enlarged. Head, ears, eyes, nose, mouth and throat were normal. Neck veins are not distended. Carotids normal. Chest is clear. Cardiac exam demonstrates sinus rhythm and no murmurs or extra sounds. The abdomen is protuberant, soft and nontender. There is no visceromegaly. Extremities are normal. Neurologically at this time he was intact. He had no weakness on the left side either regarding cranial nerves or motor exam. Hypesthesias is gone. IMPRESSION: He is admitted to the hospital with diagnoses: 1. Chest pain. 2. Coronary artery disease. 3. Cardiomyopathy. 4. Uncontrolled diabetes. 5. Probable right-sided transient ischemic attack affecting the left side of the face and body. PLAN: 1. Bedrest. 2. IV fluids. 3. Frequent monitoring of his neurologic status and vital signs. 4. Neurology consult. 5. Cardiology consult. MYLES / PATITO: [id number] /
[2021-04-27 17:06] LABS: Glucose,Whole Blood 227 mg/dL (75-99)
--- NOTE | 2021-04-27 18:15 | PN ---
PROGRESS NOTE DATE OF SERVICE: 04/26/2021 CHIEF COMPLAINT: Chest pain and left-sided hip esthesias and weakness. HISTORY OF PRESENT ILLNESS: This gentleman is doing a lot better. He still has some weakness and hip esthesias on the left side. PHYSICAL EXAMINATION: Neck is supple. Carotids are normal. Chest is clear. Cardiac exam is normal. Abdomen is soft and nontender. Extremities are normal. IMPRESSION: 1. Chest pain. 2. Angina pectoris. 3. Coronary artery disease. 4. Cardiomyopathy. 5. Uncontrolled diabetes. 6. Left-sided hip esthesias and weakness, slowly resolving. PLAN: Increase activity and diet and look forward to discharge plan and followup. MMODL / IJN: [id number] /
--- NOTE | 2021-04-27 18:21 | PN ---
PROGRESS NOTE DATE OF SERVICE: 04/27/2021 CHIEF COMPLAINT: Chest pain and left-sided hip esthesias and weakness. HISTORY OF PRESENT ILLNESS: This gentleman is not having any further chest pain. He is being evaluated by Cardiology. He does, however, continue to complain of some left-sided weakness and dysesthesias. PHYSICAL EXAM: Strength seems to be pretty much normal on the left. Cranial nerves are intact. Chest is clear. Cardiac exam is normal. IMPRESSION: 1. Right-sided TIA or CVA with left hip esthesias and weakness. 2. Coronary artery disease. 3. Angina pectoris. 4. Uncontrolled diabetes. PLAN: Progress activity and he could probably go home in the next day or two. MMODL / IJN: [id number] /
[2021-04-27 20:11] LABS: Glucose,Whole Blood 218 mg/dL (75-99)
[2021-04-28] MEDS: HEPARIN SODIUM,PORCINE/PF 5,000 UNIT/0.5 ML SYRINGE SQ SCH ×4 (00:39→20:13)
[2021-04-28] MEDS: SODIUM CHLORIDE 0.9% 1,000 ML in EMPTY BAG 1 BAG IV SCH ×7 (00:40→20:20)
[2021-04-28] MEDS: METOPROLOL SUCCINATE (ER) 50 MG TAB.ER.24H PO SCH (05:51)
[2021-04-28] MEDS: ASPIRIN 81 MG PO SCH (05:51)
[2021-04-28] MEDS: ATORVASTATIN 80 MG TAB PO SCH (05:51)
[2021-04-28] MEDS: SACUBITRIL/VALSARTAN 24 MG-26 MG TABLET PO SCH ×2 (05:51→20:18)
[2021-04-28] MEDS: TICAGRELOR 90 MG TAB PO SCH ×2 (05:51→20:18)
[2021-04-28] MEDS: MORPHINE SULFATE 4 MG/ML SYRINGE IV PRN ×2 (05:54→12:57)
[2021-04-28] MEDS ORDERED: HEPARIN SODIUM,PORCINE 2,500 UNIT in SODIUM CHLORIDE 0.9% 250 ML IRRIGATION PRN (07:00)
[2021-04-28] MEDS ORDERED: HEPARIN SODIUM,PORCINE 10,000 UNIT in SODIUM CHLORIDE 0.9% 1,000 ML IRRIGATION PRN (07:00)
[2021-04-28 07:15] LABS: Glucose,Whole Blood 303 mg/dL (75-99)
[2021-04-28 07:23] LABS: Basophils # (A) 0.2 k/uL (0-0.2); Basophils % (A) 2 %; Eosinophils # (A) 0.3 k/uL (0-0.7); Eosinophils % (A) 4 %; HCT 46.6 % (39.0-53.0); HGB 15.7 gm/dL (13.0-17.5); Lymphocytes % (A) 25 %; MCH 29.1 pg (25.0-35.0); MCHC 33.8 g/dL (31.0-37.0); MCV 86.1 fL (80.0-100.0); Mean Platelet Volume 7.5; Monocytes # (A) 0.6 k/uL (0-1.0); Monocytes % (A) 7 %; Neutrophils # (A) 4.9 k/uL (1.3-7.7); Neutrophils % (A) 60 %; Platelet Count 214 k/uL (150-450); RBC 5.41 m/uL (4.30-5.90); RDW 13.2 % (11.5-15.5)
[2021-04-28 07:41] LABS: African American GFR (CKD) >90 (>60 ml/min/1.73 sqM); Anion Gap 5 mmol/L; Blood Urea Nitrogen 20 mg/dL (9-20); Calcium 8.5 mg/dL (8.4-10.2); Carbon Dioxide 23 mmol/L (22-30); Chloride 107 mmol/L (98-107); Glucose 302 mg/dL (74-99); Non-African American GFR(CKD) >90 (>60 ml/min/1.73 sqM); Potassium 4.7 mmol/L (3.5-5.1); Sodium 135 mmol/L (137-145)
[2021-04-28] MEDS ORDERED: IV FLUID CONTINUATION 1,000 ML IV ONE (08:35)
[2021-04-28] MEDS ORDERED: MIDAZOLAM 2 MG/2 ML VIAL IVP ONE (08:52)
[2021-04-28] MEDS ORDERED: LIDOCAINE 1% INJ 10MG/ML (20 ML MDV) SQ ONE (08:55)
[2021-04-28] MEDS ORDERED: VERAPAMIL SYRINGE (5 MG/10 ML) INTRAARTER ONE (08:56)
[2021-04-28] MEDS: HEPARIN SODIUM 1,000 UN/ML (10ML VL) IVP ONE ×2 (08:57→09:16)
[2021-04-28] MEDS ORDERED: IOPAMIDOL-370 125ML BTL INJ ONE (09:35)
[2021-04-28] MEDS ORDERED: RX INFO: IV CONTRAST WAS GIVEN 1 EACH MISC MISCELLANE PRN (09:44)
[2021-04-28] MEDS ORDERED: ATROPINE SULFATE 0.1 MG/ML 10ML SYRINGE IV PRN (09:44)
[2021-04-28] MEDS ORDERED: MAG HYDROX/AL HYDROX/SIMETH 30 ML CUP PO PRN (09:44)
[2021-04-28] MEDS ORDERED: ZOLPIDEM 5 MG TAB PO PRN (09:44)
--- NOTE | 2021-04-28 10:07 | PTCA ---
PERCUTANEOUSTRANS CORORONARY ANGIOGRAPHY DATE OF SERVICE: April 28, 2020. PERFORMING PHYSICIAN: Damion Hernandez MD. PROCEDURE PERFORMED: 1. Selective right and left coronary angiogram. 2. Fractional flow reserve FFR of the right coronary artery. 3. Successful stenting of the proximal right coronary artery using 3.5 x 23 mm Xience drug-eluting stent with an excellent angiographic results. 4. Successful balloon angioplasty of the mid right coronary artery using 3.0 x 15 mm balloon with an excellent angiographic results. INDICATION: This is a 41-year-old gentleman with known coronary artery disease and prior stenting of the RCA and LAD as well as hypertension and dyslipidemia and cardiomyopathy who was admitted to the hospital with chest discomfort and continues to have chest discomfort concerning for angina. In light of that, a heart catheterization was advised. APPROACH: Right radial artery. COMPLICATIONS: None. LEVEL OF SEDATION: Moderate, with sedation length of 42 minutes. PROCEDURE DESCRIPTION: After obtaining informed consent, the patient was brought to the cardiac label printing machinist. The right radial artery was cannulated using micropuncture technique and a micropuncture wire passed easily. Then I placed a 6-Lebanese sheath at the right radial artery. I gave the patient 2 mg of verapamil IA and 6000 units of heparin IV. Selective right and left coronary angiogram performed using JR4 and JL3.5 catheters. Left heart catheterization was performed using JR4 catheter which crossed the aortic valve. Then I did pullback across the valve. After that I did FFR and stenting of the RCA. Please see a separate paragraph for that. SELECTIVE CORONARY ANGIOGRAM: 1. The right coronary artery is a large-caliber vessel. It is a dominant vessel. The RCA proximally has a lesion appeared to be in the range of 60% to 70%.. FFR was performed and came in to be ischemic. Please see a separate paragraph for that. The mid RCA has in-stent restenosis, appeared to be in the range of 70%. The RCA distally has mild disease only and bifurcates into PDA and PLV branches both appeared to have mild to moderate diffuse disease. 2. The left main is a calcified left main with mild disease only. It bifurcates into LCX and LAD. The left circumflex appeared to be chronically occluded. 3. The LAD: The LAD is a large-caliber vessel. The proximal LAD has mild disease only. The mid LAD is stented just distal to the bifurcation of a large diagonal branch. The LAD distally appeared to be subtotally occluded and seems to be unchanged compared to before. HEMODYNAMICS: The LVEDP was 25 mmHg with no significant gradient across aortic valve. FFR AND PCI OF THE RCA: Anticoagulation was initiated using heparin with continuous ACT monitoring throughout the procedure. Subsequently, I did after zeroing the Doppler wire and equalizing between the Doppler wire and the guiding catheter which was JR4 guiding catheter, we did an FFR per IV adenosine infusion. We did an IFR and that came in to be ischemic at 0.87. With that, we decided to pursue with intervention on the right coronary artery. I did direct stenting of the lesion in the proximal RCA using 3.5 x 23 mm Xience drug- eluting stent where the stent was positioned under fluoroscopic guidance and deployed under 16 atmospheres for 20 seconds. For the lesion in the mid RCA, which was in- stent, I decided to do balloon angioplasty again and I did 3.0 x 15 mm balloon which was inflated under 18 atmospheres for 20 seconds. The following angiogram showed good angiographic results and the procedure was completed without any complication. CONCLUSION: 1. Intermittent episodes of chest discomfort concerning for angina in this 41-year-old gentleman with CAD and prior stenting of the RCA and LAD. 2. Intermediate lesion involving the proximal RCA. IFR came in to be ischemic. I did perform successful stenting of the proximal RCA. There was also severe disease involving the mid RCA with in-stent restenosis. I performed successful balloon angioplasty only. 3. Patent stent in the LAD diagonal system. 4. Elevated left-sided filling pressure. POSTPROCEDURE MANAGEMENT: 1. Aggressive cholesterol control. 2. Risk factor modifications. 3. Follow up with the patient. MMODL / IJN: [id number] /
--- NOTE | 2021-04-28 11:08 | CT ---
EXAMINATION TYPE: CT brain wo con DATE OF EXAM: 04/28/2021 COMPARISON: CT brain 04/27/2021 HISTORY: TIA CT DLP: 1233 mGycm. Automated Exposure Control for Dose Reduction was Utilized. TECHNIQUE: CT scan of the head is performed without contrast. FINDINGS: There is no acute intracranial hemorrhage, mass effect, or midline shift identified. The ventricles and sulci are within normal limits in size. Cerebral vascular calcifications are present. White matter low-attenuation present deep to the insular cortex bilaterally, periventricular white m atter, possible choroidal plexus cyst on the left. The globes are intact and the visualized sinuses a re remarkable for inflammatory change, possible polyp formation in the right maxillary sinus, mucoper iosteal thickening is present in the bilateral maxillary sinuses. IMPRESSION: No acute intracranial hemorrhage, mass effect, or midline shift is seen. There is no int erval change. Sinus disease.
--- NOTE | 2021-04-28 12:02 | P.PN ---
Subjective Progress Note Date: 04/28/21 The patient is seen at bedside and he had cardiac cath with stent today. Per the nurse, today after coming back from the procedure he was complain with very brief episode of visual loss out of left eye then resolved (started around 10:07am and lasted for 1-2 minutes). Otherwise he continues to be about the same compared to yesterday (with some weakness over the left upper and lower and decreased sensation over left arm). Today he had stenting of proximal RCA. Objective - Vital Signs Vital signs: Vital Signs Temp 97.8 F 04/28/21 10:00 Pulse 77 04/28/21 10:00 Resp 17 04/28/21 10:00 BP 122/83 04/28/21 10:00 Pulse Ox 98 04/28/21 10:00 Intake & Output 04/27/21 04/28/21 04/28/21 18:59 06:59 18:59 Intake Total 115 500 100 Balance 115 500 100 Weight 144.4 kg Intake: IV 100 Oral 115 500 Other: Voiding Method Toilet Toilet # Voids 1 2 - Exam GENERAL: The patient is lying in bed and is not in acute distress. CHEST: The heart rate is regular rate rhythm. No murmurs to auscultation. No carotid bruit bilaterally. LUNG: Clear to auscultation bilaterally no wheezing noted throughout. Not labored breathing. ABDOMEN/GI: Bowel sounds present in all 4 quadrants. No tenderness to palpation throughout. NEUROLOGICAL: Higher mental function: The patient is awake, alert, oriented to self, place and time. Patient is following commands. No aphasia and no neglect. Cranial nerves: The pupils are round, equal and reactive to light and accommodation. Visual hauser are full to confrontation throughout. Extraocular movement is intact no nystagmus is noted. Facial sensation is decreased to touch over the entire left side. The facial strength is normal throughout. Hearing is normal bilaterally to hand rub. Tongue is midline and moved [id number] without any difficulty. No dysarthria is noted. Shoulder shrug is normal bilaterally. Motor: Gait is deferred. The strength is left upper extremity is 4+ to 5-. and left lower extremity is 5-/5 Otherwise 5 over 5 throughout. Normal tone and bulk. Cerebellum: Normal finger to nose bilaterally. Sensation: Sensation is decreased over entire left side to touch. Reflexes (right/left): 1+ throughout except brachioradialis are 2+. Plantars are mute bilaterally. WORK-UP: TSH is 2.870 HbA1c: 11.2 Martinez virus PCR was not detected. PT, INR and PTT are within normal limits. CT of the head ON 04/25/21 is reported as negative on has had computed tomography scan. No change. I personally reviewed the CT of the head there is no acute or subacute ischemia and there is no intraperitoneal hemorrhage CT angiography of the head and neck was reported as negative. Repeat CT head on 04/27/21: Is reported as no acute finding are evident. I per sonally reviewed the CT of the head and I do not appreciate any significant acute or subacute ischemia or any intraparenchymal hemorrhage. 2-D echo was reported as mild concentric left ventricle hypertrophy. Severely impaired left ventricle systolic function with ejection fraction of 2025%. Global hypokinesis. Left atrium is mildly dilated. - Labs CBC & Chem 7: 04/28/21 06:59 04/28/21 06:59 Labs: Abnormal Lab Results - Last 24 Hours (Table) 04/27/21 04/27/21 04/27/21 Range/Units 12:20 17:04 20:10 Sodium (137-145) mmol/L Glucose (74-99) mg/dL POC Glucose (mg/dL) 204 H 227 H 218 H (75-99) mg/dL 04/28/21 04/28/21 Range/Units 06:59 07:14 Sodium 135 L (137-145) mmol/L Glucose 302 H (74-99) mg/dL POC Glucose (mg/dL) 303 H (75-99) mg/dL Assessment and Plan Assessment: * Acute left facial droop and left-sided numbness (Left facial droop resolved but on examination had mild left upper and lower extremity weakness) likely due to acute ischemic stroke (not appreciated on repeat CT head since could be too small and cannot get MRI Brain since has AICD). No IV tpa since low NIH and no disabling symptoms. Patient has multiple risk factors for stroke with significant cardiac factors. * Transient left vision loss. * Acute chest pain s/p RCA stent on 04/28/2021 * History of coronary artery disease status post stent * History of cardiomyopathy with AICD with current ejection fraction of 20-25% * Chronic systolic heart failure * Uncontrolled Type 2 diabetes mellitus (HbA1c is 11.2). * Hypertriglyceridemia * Diabetic peripheral neuropathy * Chronic back pain * Obstructive sleep apnea * Morbid obesity * Former Nicotine use Plan: * Continue patient's home dose of aspirin 81 mg and continue Brilinta 90mg 1 tab bid. Discontinued the patient's home dose of Plavix 75 mg daily from neurological perspective (since failed medication). * We'll continue Lipitor 80 mg daily at bedtime. * Cannot get MRI Brain since has AICD. * Regarding his transient left visual loss, ordered repeat CT head STAT. * Patient had a recent lipid panel on 03/18/2021 and the triglyceride is 502, cholesterol is 135, LDL is 40 to an HDL is 30. There is no need to repeat the lipid panel. Recommend fibrate use for his hypertrigyceridemia and will defer management to primary team and cardiology team. * PT, OT are consulted * Continue neuro checks * Cardiac monitoring * Cardiac team are on board. * He was counseled on weight loss. * We'll defer the rest of the medical management to the primary team. * For DVT prophylaxis: On subq heparin. * Upon discharge, patient is to follow-up with a neurologist as outpatient within 1-2 weeks. * Condition: Guarded. The casiano is discussed with the patient and his nurse. UPDATE: CT of the head on 04/28/21 is reported as no acute intracranial hemorrhage, mass effect or midline shift is seen. There is no interval change. Sinus disease. I personally reviewed the CT of the head and there is no acute subacute ischemia and there is no intracranial hemorrhage that's appreciated. Olman Pollard M.D. Neuro-Hospitalist Time with Patient: Less than 30
[2021-04-28 12:10] LABS: Glucose,Whole Blood 274 mg/dL (75-99)
[2021-04-28 12:14] VITALS: BMI 43.2
[2021-04-28] MEDS: FUROSEMIDE 80 MG TAB PO SCH (12:57)
[2021-04-28] MEDS: INSULIN DETEMIR (LEVEMIR) 100 UNIT/ML SYR SQ SCH (12:57)
[2021-04-28] MEDS: SPIRONOLACTONE 25 MG TAB PO SCH (12:57)
[2021-04-28] MEDS: INSULIN ASPART (NovoLOG) 100 UNIT/ML VIAL SQ SCH ×3 (12:58→17:23)
[2021-04-28 17:22] LABS: Glucose,Whole Blood 280 mg/dL (75-99)
--- NOTE | 2021-04-28 18:46 | PN ---
PROGRESS NOTE CHIEF COMPLAINT: Chest pain, right-sided TIA, uncontrolled diabetes and coronary artery disease. HISTORY OF PRESENT ILLNESS: This gentleman is going down for cardiac cath today. There has otherwise been no interval change in his history. PHYSICAL EXAMINATION: His chest is clear. Cardiac exam is normal. Abdomen is protuberant and soft. IMPRESSION: 1. Chest pain. 2. Coronary artery disease. 3. Atherosclerotic cardiomyopathy. 4. Congestive heart failure. 5. Uncontrolled diabetes. 6. Right-sided transient ischemic attack or cerebrovascular accident. PLAN: Continue current treatment and wait for results of cardiac cath today. MMODL / IJN: [id number] /
[2021-04-28 20:18] LABS: Glucose,Whole Blood 167 mg/dL (75-99)
[2021-04-29 07:55] LABS: Glucose,Whole Blood 291 mg/dL (75-99)
[2021-04-29] MEDS: INSULIN ASPART (NovoLOG) 100 UNIT/ML VIAL SQ SCH ×2 (08:50→12:41)
[2021-04-29] MEDS: HEPARIN SODIUM,PORCINE/PF 5,000 UNIT/0.5 ML SYRINGE SQ SCH (08:51)
[2021-04-29] MEDS: INSULIN DETEMIR (LEVEMIR) 100 UNIT/ML SYR SQ SCH (08:51)
[2021-04-29] MEDS: ASPIRIN 81 MG PO SCH (08:52)
[2021-04-29] MEDS: METOPROLOL SUCCINATE (ER) 50 MG TAB.ER.24H PO SCH (08:52)
[2021-04-29] MEDS: ATORVASTATIN 80 MG TAB PO SCH (08:52)
[2021-04-29] MEDS: SACUBITRIL/VALSARTAN 24 MG-26 MG TABLET PO SCH (08:52)
[2021-04-29] MEDS: FUROSEMIDE 80 MG TAB PO SCH (08:53)
[2021-04-29] MEDS: TICAGRELOR 90 MG TAB PO SCH (08:53)
[2021-04-29] MEDS: SPIRONOLACTONE 25 MG TAB PO SCH (09:12)
--- NOTE | 2021-04-29 09:54 | P.PN ---
Subjective Progress Note Date: 04/29/21 The patient is seen at bedside and he stated he is doing better today compared to initial presentation. He denies of further visual disturbance. He denies of any further new neurological deficits. Patient's sugars has been in the range of 160's to 290's. Objective - Vital Signs Vital signs: Vital Signs Temp 97.5 F L 04/29/21 07:00 Pulse 87 04/29/21 07:00 Resp 18 04/29/21 07:00 BP 143/101 04/29/21 07:00 Pulse Ox 95 04/29/21 07:00 Intake & Output 04/28/21 04/29/21 04/29/21 18:59 06:59 18:59 Intake Total 1826 Output Total 0 Balance 1826 0 Weight 144.4 kg Intake: IV 100 Intake, IV Titration 1136 Amount Sodium Chloride 0.9% 1, 1136 000 ml In Empty Bag 1 bag @ 1 ML/KG/HR 142.2 mls/ hr IV .Q7H2M [facility] Rx#: [id number] Oral 590 Output: Emesis 0 Other: Voiding Method Toilet # Voids 2 - Exam GENERAL: The patient is lying in bed and is not in acute distress. CHEST: The heart rate is regular rate rhythm. No murmurs to auscultation. No carotid bruit bilaterally. LUNG: Clear to auscultation bilaterally no wheezing noted throughout. Not labo red breathing. ABDOMEN/GI: Bowel sounds present in all 4 quadrants. No tenderness to palpation throughout. NEUROLOGICAL: Higher mental function: The patient is awake, alert, oriented to self, place and time. Patient is following commands. No aphasia and no neglect. Cranial nerves: The pupils are round, equal and reactive to light and accommodation. Visual hauser are full to confrontation throughout. Extraocular movement is intact no nystagmus is noted. Facial sensation is decreased to touc h over the entire left side. The facial strength is normal throughout. Hearing is normal bilaterally to hand rub. Tongue is midline and moved [id number] without any difficulty. No dysarthria is noted. Shoulder shrug is normal bilaterally. Motor: Gait is deferred. The strength is left forearm flexion is 4+. Otherwise 5 over 5 throughout. Normal tone and bulk. Cerebellum: Normal finger to nose bilaterally. Sensation: Sensation is normal to touch throughout.. Reflexes (right/left): 1+ throughout except brachioradialis are 2+. Plantars are mute bilaterally. WORK-UP: * TSH is 2.870 * HbA1c: 11.2 * Martinez virus PCR was not detected. * PT, INR and PTT are within normal limits. * CT of the head ON 04/25/21 is reported as negative on has had computed tomography scan. No change. I personally reviewed the CT of the head there is no acute or subacute ischemia and there is no intraperitoneal hemorrhage * Repeat CT head on 04/27/21: Is reported as no acute finding are evident. I personally reviewed the CT of the head and I do not appreciate any significant acute or subacute ischemia or any intraparenchymal hemorrhage. * CT of the head on 04/28/21 is reported as no acute intracranial hemorrhage, mass effect or midline shift is seen. There is no interval change. Sinus disease. * I personally reviewed the CT of the head and there is no acute subacute ischemia and there is no intracranial hemorrhage that's appreciated. * CT angiography of the head and neck was reported as negative. * 2-D echo was reported as mild concentric left ventricle hypertrophy. Severely impaired left ventricle systolic function with ejection fraction of 2025%. Global hypokinesis. Left atrium is mildly dilated. - Labs CBC & Chem 7: 04/28/21 06:59 04/28/21 06:59 Labs: Abnormal Lab Results - Last 24 Hours (Table) 04/28/21 04/28/21 04/28/21 Range/Units 12:09 17:21 20:16 POC Glucose (mg/dL) 274 H 280 H 167 H (75-99) mg/dL 04/29/21 Range/Units 07:44 POC Glucose (mg/dL) 291 H (75-99) mg/dL Assessment and Plan Assessment: * Acute left facial droop and left-sided numbness (Left facial droop resolved but on examination had mild left upper and lower extremity weakness--improving) likely due to acute ischemic stroke (not appreciated on repeat CT head since could be too small and cannot get MRI Brain since has AICD). No IV tpa since low NIH and no disabling symptoms. Patient has multiple risk factors for stroke with significant cardiac factors. * Transient left vision loss on 04/28/2021. * Acute chest pain s/p RCA stent on 04/28/2021 * History of coronary artery disease status post stent * History of cardiomyopathy with AICD with current ejection fraction of 20-25% * Chronic systolic heart failure * Uncontrolled Type 2 diabetes mellitus (HbA1c is 11.2). * Hypertriglyceridemia * Diabetic peripheral neuropathy * Chronic back pain * Obstructive sleep apnea * Morbid obesity * Former Nicotine use Plan: * Continue patient's home dose of aspirin 81 mg and continue Brilinta 90mg 1 tab bid. Discontinued the patient's home dose of Plavix 75 mg daily during this hospital visit since failed medication. * Continue Lipitor 80 mg daily at bedtime. * Cannot get MRI Brain since has AICD. * Patient the episode of transient left vision loss: Unsure exactly cause. Unsure if due to hypotension, hypoglycemia or result of sedation or result of the surgery. Patient symptoms resolved. The CT of the head that does not show any acute or subacute ischemic stroke. * Patient had a recent lipid panel on 03/18/2021 and the triglyceride is 502, cholesterol is 135, LDL is 40 to an HDL is 30. There is no need to repeat the lipid panel. Recommend fibrate use for his hypertrigyceridemia and will defer management to primary team and cardiology team. * PT, OT are consulted * Continue neuro checks * Cardiac monitoring * Cardiac team are on board. * He was counseled on weight loss. * Regarding his uncontrolled diabetes mellitus patient was counseled and possibly seeing an breadman as an outpatient. * We'll defer the rest of the medical management to the primary team. * For DVT prophylaxis: On subq heparin. * Upon discharge, patient is to follow-up with a neurologist as outpatient within 1-2 weeks. The casiano is discussed with the patient and his nurse. There is no further neurological work-up. Patient is clear from neurological perspective. Olman Pollard M.D. Neuro-Hospitalist Time with Patient: Less than 30
[2021-04-29 10:28] LABS: Basophils # (A) 0.1 k/uL (0-0.2); Basophils % (A) 1 %; Eosinophils # (A) 0.3 k/uL (0-0.7); Eosinophils % (A) 3 %; HCT 47.2 % (39.0-53.0); HGB 15.9 gm/dL (13.0-17.5); Lymphocytes # (A) 2.3 k/uL (1.0-4.8); Lymphocytes % (A) 25 %; MCH 29.3 pg (25.0-35.0); MCHC 33.7 g/dL (31.0-37.0); MCV 87.1 fL (80.0-100.0); Mean Platelet Volume 7.8; Monocytes # (A) 0.6 k/uL (0-1.0); Monocytes % (A) 7 %; Neutrophils # (A) 5.5 k/uL (1.3-7.7); Neutrophils % (A) 62 %; Platelet Count 209 k/uL (150-450); RBC 5.42 m/uL (4.30-5.90); RDW 13.4 % (11.5-15.5); WBC 8.9 k/uL (3.8-10.6)
[2021-04-29 10:58] LABS: African American GFR (CKD) >90 (>60 ml/min/1.73 sqM); Anion Gap 7 mmol/L; Blood Urea Nitrogen 19 mg/dL (9-20); Calcium 8.7 mg/dL (8.4-10.2); Carbon Dioxide 25 mmol/L (22-30); Chloride 102 mmol/L (98-107); Glucose 336 mg/dL (74-99); Non-African American GFR(CKD) >90 (>60 ml/min/1.73 sqM); Potassium 4.7 mmol/L (3.5-5.1); Sodium 134 mmol/L (137-145)
[2021-04-29 12:01] LABS: Glucose,Whole Blood 366 mg/dL (75-99)
--- NOTE | 2021-04-29 12:37 | P.PN ---
Subjective Progress Note Date: 04/29/21 This is a pleasant 41-year-old male past medical history significant for coronary artery disease status post PCI RCA 2015 and diagonal branch 2019, ischemic cardiomyopathy status post AICD, hypertension, diabetes mellitus, dyslipidemia and chronic systolic heart failure. He follows in the office with Dr Hernandez. We have been asked to see in consultation for chest pain. Patient states for about 1 month he has been having intermittent chest pain and some worsening shortness of breath with exertion. However, over the past couple days his chest pain has worsened. He states yesterday he had left sided stabbing chest pain, describes it as similar to when he had his [place] in the past. It is exertional. Non-radiating. He states resting helped relieve his pain. About 10 minutes after an episode of chest pain he had acute onset left sided facial and left arm numbness and tingling. Lasted for about 1 hour and then resolved. He states he did notice his heart was racing. Presented to the ER for further evalu ation. He denies any dizziness, lightheadedness or syncope. He denies any tobacco use. 04/27/2021 Patient seen and examined at bedside, states his left sided numbness and we akness has improved. However, he continues to have left sided chest pain. Last night patient had an episode of sharp left sided chest pain, radiated to his left shoulder, he states it lasted about an hour. Was given sublingual nitro. He states this pain is similar to his pain from prior MIs. He states he is having chest pain with light activity, walking to the bathroom or around his room. He has associated nausea. Echocardiogram revealed EF of 2025 percent, global hypokinesis, mild tricuspid regurgitation Interrogation of device revealed sinus mechanism, no atrial fibrillation or flutter noted. Patient with occasional episodes of NSVT. Telemetry reviewed, patient maintaining sinus mechanism, heart rate in the 70s80s, episode of sinus tachycardia overnight. 04/28: Yesterday, patient underwent heart catheterization with Dr. Hernandez with successful stenting of the proximal right coronary artery and balloon angioplasty of the mid right coronary artery. Patient is complaining of some sharp pain in the right wrist at the site of cardiac catheterization access. No hematoma noted, full range of motion, no numbness or tingling. Patient denies having any chest pain. He denies having any tingling to his face or arms. PHYSICAL EXAMINATION Vitals: Reviewed CONSTITUTIONAL: No apparent distress. HEENT: Neck Supple. No JVD. CHEST EXAMINATION: Lungs are clear to auscultation. No chest wall tenderness is noted on palpation or with deep breathing. HEART EXAMINATION: Regular rate and rhythm. S1, S2 heard. No murmurs, gallops or rub. ABDOMEN: Soft, nontender. EXTREMITIES: 2+ peripheral pulses, no lower extremity edema and no calf tenderness. Right wrist shows no hematoma, full range of motion. NEUROLOGIC EXAMINATION: Patient is awake, alert and oriented x3. ASSESSMENT Chest pain Left sided facial and arm numbness and tingling History of coronary artery disease status post PCI RCA 2015 and diagonal branch 2019 Chronic systolic heart failure, clinically euvolemic Ischemic cardiomyopathy status post AICD placement 2012 ([email or web address]) Hypertension Dyslipidemia Diabetes mellitus, type 2 PLAN Continue aspirin 81 mg daily, atorvastatin 80 mg daily, Lasix 80 mg daily, Toprol-XL 150 mg daily, Entresto one twice daily, Aldactone 25 mg daily, Brilinta 90 mg twice daily -Neurology following Patient is cleared from cardiology for discharge, plan follow-up with Dr. Hernandez in the office. Nurse Practitioner note has been reviewed, I agree with a documented findings an d plan of care. Patient was seen and examined. Objective - Vital Signs Vital signs: Vital Signs Temp 97.5 F L 04/29/21 07:00 Pulse 87 04/29/21 07:00 Resp 18 04/29/21 07:00 BP 143/101 04/29/21 07:00 Pulse Ox 95 04/29/21 07:00 Intake & Output 04/28/21 04/29/21 04/29/21 18:59 06:59 18:59 Intake Total 1826 240 Output Total 0 Balance 1826 0 240 Weight 144.4 kg Intake: IV 100 Intake, IV Titration 1136 Amount Sodium Chloride 0.9% 1, 1136 000 ml In Empty Bag 1 bag @ 1 ML/KG/HR 142.2 mls/ hr IV .Q7H2M KSENIA Rx#: [id number] Oral 590 240 Output: Emesis 0 Other: Voiding Method Toilet # Voids 2 - Labs CBC & Chem 7: 04/29/21 10:03 04/29/21 10:03 Labs: Abnormal Lab Results - Last 24 Hours (Table) 0104/28/21 04/28/21 Range/Units 12:09 17:21 20:16 Sodium (137-145) mmol/L Glucose (74-99) mg/dL POC Glucose (mg/dL) 274 H 280 H 167 H (75-99) mg/dL 04/29/21 04/29/21 Range/Units 07:44 10:03 Sodium 134 L (137-145) mmol/L Glucose 336 H (74-99) mg/dL POC Glucose (mg/dL) 291 H (75-99) mg/dL
--- NOTE | 2021-04-29 12:44 | DS ---
DISCHARGE SUMMARY CHIEF COMPLAINT: Chest pain and left-sided weakness and hypesthesias. HISTORY OF PRESENT ILLNESS AND PHYSICAL EXAMINATION: Details of this man's history and physical can be found in the initial workup. LABORATORY STUDIES: While he was in the hospital he had laboratory studies, details of which can be found in the laboratory section of his chart. COURSE IN THE HOSPITAL: After admission he was placed on bedrest and had frequent monitoring of his neurologic status and vital signs. He was seen by Neurology and Cardiology. He was subsequently taken for cardiac cath and was cleared from the cardiac point of view. Neurology felt that he could be discharged. He will be sent home on Brilinta 90 mg twice a day and 81 mg of aspirin once a day. He will be seen in the office in several days. FINAL DIAGNOSIS: 1. Right-sided cerebrovascular accident. 2. Unstable angina pectoris. 3. Coronary artery disease. 4. Cardiomyopathy. 5. Hypertension. 6. Chronic congestive heart failure. 7. Uncontrolled diabetes. OPERATIONS: Cardiac catheterization. CONSULTATIONS: 1. Cardiology. 2. Neurology. He is improved. MMSHORTY / PATITO: [id number] /
[2021-04-29 13:46] VITALS: BP 128/87; PULSE 101; RESP 20; TEMP 98.2
== END 2021-04-29 14:16 | disposition home or self-care (01) | DRG 246 ==
LOC: EC 16:23 → 6NMEDSUR 18:53 → OBSVTOIN 04-28 09:36
PROVIDERS: ADMIT Family Medicine; ATTEND Family Medicine
PROC: 027034Z Dilation of Coronary Artery, One Artery with Drug-eluting Intraluminal Device, Percutaneous Approach (ICD-10-PCS; principal; 2021-04-28 08:30)
PROC: 4A023N7 Measurement of Cardiac Sampling and Pressure, Left Heart, Percutaneous Approach (ICD-10-PCS; 2021-04-28 08:30)
PROC: B2111ZZ Fluoroscopy of Multiple Coronary Arteries using Low Osmolar Contrast (ICD-10-PCS; 2021-04-28 08:30)
DX: I25.110 Atherosclerotic heart disease of native coronary artery with unstable angina pectoris (principal); I63.9 Cerebral infarction, unspecified; T82.855A Stenosis of coronary artery stent, initial encounter; Z68.41 Body mass index [BMI] 40.0-44.9, adult; H53.122 Transient visual loss, left eye; I50.22 Chronic systolic (congestive) heart failure; I47.2 Ventricular tachycardia; E11.42 Type 2 diabetes mellitus with diabetic polyneuropathy; Z20.822 Contact with and (suspected) exposure to COVID-19; E11.65 Type 2 diabetes mellitus with hyperglycemia; E66.01 Morbid (severe) obesity due to excess calories; E78.1 Pure hyperglyceridemia; E78.5 Hyperlipidemia, unspecified; G47.33 Obstructive sleep apnea (adult) (pediatric); G89.29 Other chronic pain; I11.0 Hypertensive heart disease with heart failure; I25.2 Old myocardial infarction; I25.5 Ischemic cardiomyopathy; I25.82 Chronic total occlusion of coronary artery; R29.810 Facial weakness; Y83.1 Surgical operation with implant of artificial internal device as the cause of abnormal reaction of the patient, or of later complication, without mention of misadventure at the time of the procedure; Z79.02 Long term (current) use of antithrombotics/antiplatelets; Z79.4 Long term (current) use of insulin; Z79.82 Long term (current) use of aspirin; Z79.899 Other long term (current) drug therapy; Z82.49 Family history of ischemic heart disease and other diseases of the circulatory system; Z87.891 Personal history of nicotine dependence; Z91.19 Patient's noncompliance with other medical treatment and regimen; Z95.810 Presence of automatic (implantable) cardiac defibrillator; Z86.16 Personal history of COVID-19
CPT/HCPCS: 36415; 70450; 70496; 70498; 71046; 80048; 80053; 83036; 83735; 83880; 84443; 84484; 85025; 85379; 85610; 85730; 87635; 93005; 93306; 93458; 93571; 96374; 96375; 99285

== ENCOUNTER 2021-07-08 10:14 | Observation (INO) | payer OTHER ==
[2021-07-08] MEDS ORDERED: ASPIRIN 81 MG PO STA (10:41)
[2021-07-08 11:14] LABS: Basophils # (A) 0.1 k/uL (0-0.2); Basophils % (A) 2 %; Eosinophils # (A) 0.3 k/uL (0-0.7); Eosinophils % (A) 3 %; HCT 47.1 % (39.0-53.0); HGB 16.2 gm/dL (13.0-17.5); Lymphocytes # (A) 1.9 k/uL (1.0-4.8); Lymphocytes % (A) 24 %; MCH 29.2 pg (25.0-35.0); MCHC 34.5 g/dL (31.0-37.0); MCV 84.7 fL (80.0-100.0); Mean Platelet Volume 7.8; Monocytes # (A) 0.5 k/uL (0-1.0); Monocytes % (A) 6 %; Neutrophils # (A) 4.8 k/uL (1.3-7.7); Neutrophils % (A) 62 %; Platelet Count 204 k/uL (150-450); RBC 5.56 m/uL (4.30-5.90); RDW 13.9 % (11.5-15.5); WBC 7.7 k/uL (3.8-10.6)
[2021-07-08 11:26] LABS: ALT 24 U/L (4-49); AST 21 U/L (17-59); African American GFR (CKD) >90 (>60 ml/min/1.73 sqM); Albumin 3.9 g/dL (3.5-5.0); Alkaline Phosphatase 118 U/L (38-126); Anion Gap 10 mmol/L; Blood Urea Nitrogen 18 mg/dL (9-20); Calcium 8.9 mg/dL (8.4-10.2); Carbon Dioxide 21 mmol/L (22-30); Chloride 101 mmol/L (98-107); Glucose 387 mg/dL (74-99); Lipase 70 U/L (23-300); Magnesium 1.8 mg/dL (1.6-2.3); Non-African American GFR(CKD) >90 (>60 ml/min/1.73 sqM); Potassium 3.9 mmol/L (3.5-5.1); Sodium 132 mmol/L (137-145); Total Bilirubin 1.1 mg/dL (0.2-1.3); Total Protein 6.9 g/dL (6.3-8.2)
[2021-07-08 11:27] LABS: INR 0.9 (<1.2); Partial Thromboplastin Time 23.3 sec (22.0-30.0)
--- NOTE | 2021-07-08 12:15 | XR ---
EXAMINATION TYPE: XR chest 2V DATE OF EXAM: 07/08/2021 COMPARISON: Chest x-ray April 25, 2021 HISTORY: History of CHF with chest pain. TECHNIQUE: Frontal and lateral views of the chest are obtained. FINDINGS: Low lung volumes redemonstrated. There is no focal air space opacity, pleural effusion, or pneumothorax seen. The cardiac silhouette size is stable and mildly enlarged with single lead pacem shaina/defibrillator redemonstrated. The osseous structures are intact. IMPRESSION: Mild cardiomegaly without acute pulmonary process.
[2021-07-08] MEDS ORDERED: NITROGLYCERIN SL TABS 0.4 MG TAB SUBLINGUAL PRN (12:49)
--- NOTE | 2021-07-08 12:49 | ED ---
Chest Pain HPI - General Chief Complaint: Chest Pain Stated Complaint: chest pain, diff breathing Time Seen by Provider: 07/08/21 10:33 Source: patient, RN notes reviewed Mode of arrival: wheelchair Limitations: no limitations - History of Present Illness Initial Comments: 41-year-old male presents emergency Department with chief complaint of chest pain. Patient states just started days ago has been persistent and worsening. Patient does admit that he has significant cardiac history including 3 stents, pacemaker, defibrillator, history of CHF. Patient states that he did have stents placed 2 months ago states his pain is very similar to his prior incidents. Patient states it makes him feel so short of breath but not short of breath at rest. He states his pain denies any pain medications. Patient does have diabetes, hyperlipidemia - Related Data Home Medications Medication Instructions Recorded Confirmed metFORMIN HCL [Glucophage] 1,000 mg PO DAILY 06/14/19 07/08/21 Atorvastatin [Lipitor] 80 mg PO DAILY 07/25/20 07/08/21 Furosemide [Lasix] 80 mg PO DAILY 07/25/20 07/08/21 HYDROcodone/APAP 5-325MG [[place] 1 tab PO Q6H PRN 03/05/21 07/08/21 5-325] Insulin NPH Hum/Reg Insulin Hm 30 unit SQ DAILY 03/05/21 07/08/21 [humuLIN 70/30 Kwikpen] Sacubitril/Valsartan [Entresto 24 1 tab PO BID 03/05/21 07/08/21 mg-26 mg Tablet] Albuterol Sulfate [Proair Hfa] 2 puff INHALATION RT-Q6H PRN 03/17/21 07/08/21 Dulaglutide [Trulicity] 0.75 mg SQ WE 04/25/21 07/08/21 Previous Rx's Medication Instructions Recorded Spironolactone [Aldactone] 25 mg PO DAILY #30 tab 04/01/20 Metoprolol Succinate (ER) [Toprol 100 mg PO DAILY tab.er.24h 07/26/20 XL] Ticagrelor [Brilinta] 90 mg PO BID 30 Days #60 tab 04/28/21 Allergies Allergy/AdvReac Type Severity Reaction Status Date / Time Penicillins Allergy Unknown Verified 07/08/21 13:29 Childhood Review of Systems ROS Statement: Those systems with pertinent positive or pertinent negative responses have been documented in the HPI. ROS Other: All systems not noted in ROS Statement are negative. Past Medical History Past Medical History: Coronary Artery Disease (CAD), Chest Pain / Angina, Heart Failure, Diabetes Mellitus, Hyperlipidemia, Hypertension, Myocardial Infarction ([place]), Sleep Apnea/CPAP/BIPAP, Syncope Additional Past Medical History / Comment(s): Cardiomyopathy with AICD, IDDM type II, neuropathy bilateral feet, SP with Cpap use, migraines, chronic back pain. Last Myocardial Infarction Date:: 2015 History of Any Multi-Drug Resistant Organisms: None Reported Past Surgical History: AICD, Heart Catheterization, Heart Catheterization With Stent Additional Past Surgical History / Comment(s): 10/27/12 AICD, DFTs, PCI with 2 stents Past Anesthesia/Blood Transfusion Reactions: No Reported Reaction Date of Last Stent Placement:: 02/03/16 Type of Cardiac Device: AICD Device Placement Date:: 2012 Past Psychological History: Anxiety, Depression Smoking Status: Former smoker Past Alcohol Use History: None Reported Past Drug Use History: None Reported - Past Family History Mother Family Medical History: No Reported History Additional Family Medical History / Comment(s): Mother is healthy Brother(s) Family Medical History: Myocardial Infarction ([place]) Additional Family Medical History / Comment(s): Brother of a [place] at the age of 35yrs. Father Family Medical History: Liver Disease Additional Family Medical History / Comment(s): Father when pt was 19 yrs old from liver disease. He was an alcoholic. General Exam Limitations: no limitations General appearance: alert, in no apparent distress Head exam: Present: atraumatic, normocephalic, normal inspection Eye exam: Present: normal appearance, PERRL, EOMI. Absent: scleral icterus, conjunctival injection, periorbital swelling ENT exam: Present: normal exam, normal oropharynx, mucous membranes moist Neck exam: Present: normal inspection. Absent: tenderness, meningismus, lymphadenopathy Respiratory exam: Present: normal lung sounds bilaterally. Absent: respiratory distress, wheezes, rales, rhonchi, stridor Cardiovascular Exam: Present: regular rate, normal rhythm, normal heart sounds. Absent: systolic murmur, diastolic murmur, rubs, gallop, clicks GI/Abdominal exam: Present: soft, normal bowel sounds. Absent: distended, tenderness, guarding, rebound, rigid Course Vital Signs 07/08/21 07/08/21 10:27 13:00 Temperature 97.7 F Pulse Rate 99 92 Respiratory 18 18 Rate Blood Pressure 139/97 133/88 O2 Sat by Pulse 98 98 Oximetry Chest Pain MDM - MDM patients labs reveal hyperglycemia, negative trop. ekg unchanged . case discussed with dr mahmood excepts admission, cardio to consult Disposition Clinical Impression: Chest pain Disposition: ADMITTED IP TO THIS HOSP Condition: Fair
[2021-07-08] MEDS: HYDROcodone/APAP 5-325MG 1 EACH TAB PO PRN ×2 (15:37→21:44)
[2021-07-08] MEDS: ALBUTEROL NEBULIZED 2.5 MG/3 ML INHALATION PRN (16:26)
[2021-07-08 17:23] LABS: Glucose,Whole Blood 356 mg/dL (75-99)
[2021-07-08] MEDS: INSULIN ASPART (NovoLOG) 100 UNIT/ML VIAL SQ SCH (17:48)
[2021-07-08] MEDS: SACUBITRIL/VALSARTAN 24 MG-26 MG TABLET PO SCH (19:23)
[2021-07-08] MEDS: TICAGRELOR 90 MG TAB PO SCH (19:23)
[2021-07-08 20:52] LABS: Glucose,Whole Blood 293 mg/dL (75-99)
[2021-07-09] MEDS ORDERED: INSULN ASP PRT/INSULIN ASPART 100 UNIT/ML 10 ML VIAL SQ SCH (07:30)
[2021-07-09 07:42] LABS: Glucose,Whole Blood 236 mg/dL (75-99)
[2021-07-09] MEDS: INSULIN ASPART (NovoLOG) 100 UNIT/ML VIAL SQ SCH ×2 (08:50→13:29)
[2021-07-09] MEDS: TICAGRELOR 90 MG TAB PO SCH (08:50)
[2021-07-09] MEDS: SACUBITRIL/VALSARTAN 24 MG-26 MG TABLET PO SCH (08:50)
[2021-07-09] MEDS ORDERED: SPIRONOLACTONE 25 MG TAB PO SCH (09:00)
[2021-07-09] MEDS ORDERED: METOPROLOL SUCCINATE (ER) 100 MG TAB.ER.24H PO SCH (09:00)
[2021-07-09] MEDS ORDERED: metFORMIN 500 MG TAB PO SCH (09:00)
[2021-07-09] MEDS ORDERED: FUROSEMIDE 80 MG TAB PO SCH (09:00)
[2021-07-09] MEDS ORDERED: ASPIRIN 81 MG PO SCH (09:00)
[2021-07-09] MEDS ORDERED: ATORVASTATIN 80 MG TAB PO SCH (09:00)
[2021-07-09] MEDS ORDERED: ASPIRIN 325 MG TAB PO SCH (09:00)
[2021-07-09 11:29] LABS: Glucose,Whole Blood 105 mg/dL (75-99)
[2021-07-09] MEDS: ALBUTEROL NEBULIZED 2.5 MG/3 ML INHALATION PRN (12:09)
--- NOTE | 2021-07-09 12:11 | P.CRDCN ---
History of Present Illness Consult date: 07/09/21 Consult reason: chest pain History of present illness: HISTORY OF PRESENTING ILLNESS This is a 41-year-old male patient of Dr. Hernandez with past medical history significant of coronary artery disease status post PCI RCA 2015 and diagonal branch 2019, ischemic cardiomyopathy status post AICD, hypertension, diabetes mellitus, dyslipidemia and chronic systolic heart failure. Patient was last hospitalized in April of this year at which time he presented with chest pain and numbness to the left face and arm. Echocardiogram at that time revealed EF of 20-25% with mild TR. AICD was interrogated with no abnormal findings. He underwent heart catheterization with Dr. Hernandez and had stenting done of the proximal RCA and balloon angioplasty of the mid RCA. Patient has not had follow-up with Dr. Hernandez as he states it was due to transportation issues. Patient developed chest pain while playing with his kids on and states it became very severe during the night then it seemed to let up somewhat. Yesterday it became bad again. He states that was in the midsternal area with radiation to the left side of the neck and the left arm. He also states he became diaphoretic and had shortness of breath and nausea. Pain with movement. He still states he is a little short of breath but nausea is gone. DIAGNOSTICS -EKG reveals sinus rhythm -Telemetry tracings indicate sinus rhythm with no acute arrhythmia. No evidence of atrial fibrillation noted. -Chest xray negative for an acute cardiopulmonary process. -Laboratory reviewed, CBC unremarkable, sodium 132, potassium 3.9, BUN 18, serum creatinine 0.77, magnesium 1.8, troponin negative 3. Lipase 70. -Current cardiac medications include entresto 24/26 mg BID, atorvastatin 80 mg daily, Brilinta 90 mg daily, Lasix 80 mg daily, Toprol 100 mg daily and Aldactone 25 mg daily. REVIEW OF SYSTEMS At the time of my exam: CONSTITUTIONAL: Denies fever or chills. CARDIOVASCULAR: Denies chest pain, shortness of breath, orthopnea, PND or palpitations. RESPIRATORY: Denies cough. GASTROINTESTINAL: Denies abdominal pain, diarrhea, constipation, nausea or vomiting. MUSCULOSKELETAL: Denies myalgias. NEUROLOGIC: Denies numbness, tingling, headache or weakness. Tingling in left fingers started last pm. ENDOCRINE: Denies fatigue, weight change, polydipsia or polyurina. GENITOURINARY: Denies burning, hematuria or urgency with micturation. HEMATOLOGIC: Denies history of anemia or bleeding. PHYSICAL EXAMINATION Blood pressure 141/87, heart rate 86, afebrile, saturations greater than 92% on room air CONSTITUTIONAL: No apparent distress. HEENT: Head is normocephalic. Pupils are equal, round. Sclerae anicteric. Mucous membranes of the mouth are moist. No JVD. No carotid bruit. CHEST EXAMINATION: Lungs are clear to auscultation. +o chest wall tenderness is noted on palpation and with movement of the left arm. HEART EXAMINATION: Regular rate and rhythm. S1, S2 heard. No murmurs, gallops or rub. ABDOMEN: Soft, nontender. EXTREMITIES: 2+ peripheral pulses, no lower extremity edema and no calf tenderness. NEUROLOGIC EXAMINATION: Patient is awake, alert and oriented x3. ASSESSMENT Chest pain with negative troponins, ACS ruled out. Appears musculoskeletal with reproducibility vs radiculopathy with some numbness as well. History of coronary artery disease status post PCI RCA 2015 and diagonal branch 2019, distended proximal RCA and balloon angioplasty of the mid RCA 04/2021 Chronic systolic heart failure, clinically euvolemic Ischemic cardiomyopathy status post AICD placement 2012 ([employer]) Hypertension Dyslipidemia Diabetes mellitus, type 2 PLAN Continue cardiac telemetry Continue patient on aspirin 81 mg daily, Lasix 80 mg daily, Toprol-XL 100 mg daily, Entresto 2426 milligrams one twice daily, spironolactone 25 mg daily, Brilinta 90 mg twice daily Patient is cleared for discharge home, follow up with Dr. Hernandez in one week in the office Thank you kindly for this consultation. Nurse Practitioner note has been reviewed, I agree with a documented findings and plan of care. Patient was seen and examined. Past Medical History Past Medical History: Coronary Artery Disease (CAD), Chest Pain / Angina, Heart Failure, Diabetes Mellitus, Hyperlipidemia, Hypertension, Myocardial Infarction ([place]), Sleep Apnea/CPAP/BIPAP, Syncope Additional Past Medical History / Comment(s): Cardiomyopathy with AICD, IDDM type II, neuropathy bilateral feet, SP with Cpap use, migraines, chronic back pain. Last Myocardial Infarction Date:: 2015 History of Any Multi-Drug Resistant Organisms: None Reported Past Surgical History: AICD, Heart Catheterization, Heart Catheterization With Stent Additional Past Surgical History / Comment(s): 10/27/12 AICD, DFTs, PCI with 2 stents Past Anesthesia/Blood Transfusion Reactions: No Reported Reaction Date of Last Stent Placement:: 02/03/16 Type of Cardiac Device: AICD Device Placement Date:: 2012 Past Psychological History: Anxiety, Depression Smoking Status: Former smoker Past Alcohol Use History: None Reported Past Drug Use History: None Reported - Past Family History Mother Family Medical History: No Reported History Additional Family Medical History / Comment(s): Mother is healthy Brother(s) Family Medical History: Myocardial Infarction ([place]) Additional Family Medical History / Comment(s): Brother of a [place] at the age of 35yrs. Father Family Medical History: Liver Disease Additional Family Medical History / Comment(s): Father when pt was 19 yrs old from liver disease. He was an alcoholic. Medications and Allergies Home Medications Medication Instructions Recorded Confirmed Type metFORMIN HCL [Glucophage] 1,000 mg PO DAILY 06/14/19 07/08/21 History Spironolactone [Aldactone] 25 mg PO DAILY #30 tab 04/01/20 07/08/21 Rx Atorvastatin [Lipitor] 80 mg PO DAILY 07/25/20 07/08/21 History Furosemide [Lasix] 80 mg PO DAILY 07/25/20 07/08/21 History Metoprolol Succinate (ER) [Toprol 100 mg PO DAILY tab.er.24h 07/26/20 07/08/21 Rx XL] HYDROcodone/APAP 5-325MG [[place] 1 tab PO Q6H PRN 03/05/21 07/08/21 History 5-325] Insulin NPH Hum/Reg Insulin Hm 30 unit SQ DAILY 03/05/21 07/08/21 History [humuLIN 70/30 Kwikpen] Sacubitril/Valsartan [Entresto 24 1 tab PO BID 03/05/21 07/08/21 History mg-26 mg Tablet] Albuterol Sulfate [Proair Hfa] 2 puff INHALATION RT-Q6H PRN 03/17/21 07/08/21 History Dulaglutide [Trulicity] 0.75 mg SQ WE 04/25/21 07/08/21 History Ticagrelor [Brilinta] 90 mg PO BID 30 Days #60 tab 04/28/21 07/08/21 Rx Allergies Allergy/AdvReac Type Severity Reaction Status Date / Time Penicillins Allergy Unknown Verified 07/08/21 13:29 Childhood Physical Exam Vitals: Vital Signs Temp Pulse Pulse Resp BP BP Pulse Ox 07/09/21 07:00 98.3 F 80 16 133/89 92 L 07/09/21 02:33 97.9 F 84 18 118/73 97 07/08/21 19:26 95 16 07/08/21 19:20 97.6 F 95 16 116/82 94 L 07/08/21 16:42 88 07/08/21 16:26 88 07/08/21 15:00 97.4 F L 88 16 125/85 90 L 07/08/21 13:00 92 18 133/88 98 07/08/21 10:27 97.7 F 99 18 139/97 98 Intake and Output 07/08/21 07/09/21 07/09/21 22:59 06:59 14:59 Intake Total 118 Balance 118 Intake: Oral 118 Other: Voiding Method Toilet # Voids 1 1 Results 07/08/21 10:55 07/08/21 10:55 Cardiac Enzymes 07/08/21 07/08/21 07/08/21 Range/Units 10:55 10:55 15:15 AST 21 (17-59) U/L Troponin I <0.012 <0.012 (0.000-0.034) ng/mL 07/08/21 Range/Units 18:28 AST (17-59) U/L Troponin I <0.012 (0.000-0.034) ng/mL Coagulation 07/08/21 Range/Units 10:55 PT 10.0 (9.0-12.0) sec APTT 23.3 (22.0-30.0) sec CBC 07/08/21 Range/Units 10:55 WBC 7.7 (3.8-10.6) k/uL RBC 5.56 (4.30-5.90) m/uL Hgb 16.2 (13.0-17.5) gm/dL Hct 47.1 (39.0-53.0) % Plt Count 204 (150-450) k/uL Comprehensive Metabolic Panel 07/08/21 Range/Units 10:55 Sodium 132 L (137-145) mmol/L Potassium 3.9 (3.5-5.1) mmol/L Chloride 101 (98-107) mmol/L Carbon Dioxide 21 L (22-30) mmol/L BUN 18 (9-20) mg/dL Creatinine 0.77 (0.66-1.25) mg/dL Glucose 387 H (74-99) mg/dL Calcium 8.9 (8.4-10.2) mg/dL AST 21 (17-59) U/L ALT 24 (4-49) U/L Alkaline Phosphatase 118 (38-126) U/L Total Protein 6.9 (6.3-8.2) g/dL Albumin 3.9 (3.5-5.0) g/dL Current Medications Generic Name Dose Route Start Last Admin Trade Name Freq PRN Reason Stop Dose Admin Hydrocodone Bitart/Acetaminophen 1 each 07/08/21 12:54 07/08/21 21:44 Hydrocodone/Apap 5-325mg 1 Each Tab PO 1 each Q6H PRN Administration Pain Albuterol Sulfate 2.5 mg 07/08/21 12:54 07/08/21 16:26 Albuterol Nebulized 2.5 Mg/3 Ml INHALATION 2.5 mg RT-Q6H PRN Administration Shortness Of Breath Aspirin 81 mg 07/09/21 09:00 07/09/21 08:50 Aspirin 81 Mg PO 81 mg DAILY KSENIA Administration Atorvastatin Calcium 80 mg 07/09/21 09:00 07/09/21 08:51 Atorvastatin 80 Mg Tab PO 80 mg DAILY KSENIA Administration Furosemide 80 mg 07/09/21 09:00 07/09/21 08:50 Furosemide 80 Mg Tab PO 80 mg DAILY KSENIA Administration Insulin Aspart 30 unit 07/08/21 17:30 07/09/21 08:50 Insulin Aspart (Novolog) 100 Unit/Ml Vial SQ 30 unit AC-TID KSENIA Administration Insulin Aspart 60 unit 07/09/21 07:30 07/09/21 08:50 Insuln Asp Prt/Insulin Aspart 100 Unit/Ml 10 Ml Vial SQ 60 unit AC-BRKFST KSENIA Administration Metformin HCl 1,000 mg 07/09/21 09:00 07/09/21 08:51 Metformin 500 Mg Tab PO 1,000 mg DAILY KSENIA Administration Metoprolol Succinate 100 mg 07/09/21 09:00 07/09/21 08:51 Metoprolol Succinate (Er) 100 Mg Tab.Er.24h PO 100 mg DAILY KSENIA Administration Nitroglycerin 0.4 mg 07/08/21 12:49 07/08/21 13:06 Nitroglycerin Sl Tabs 0.4 Mg Tab SUBLINGUAL 0.4 mg Q5M PRN Administration Chest Pain Patient's Own ( 0.75 mg 07/11/21 12:00 Dulaglutide [ SQ Trulicity] 0.75 Mg/0 TU KSENIA .5 Ml Each) Sacubitril/Valsartan 1 each 07/08/21 21:00 07/09/21 08:50 Sacubitril/Valsartan 24 Mg-26 Mg Tablet PO 1 each BID KSENIA Administration Spironolactone 25 mg 07/09/21 09:00 07/09/21 08:50 Spironolactone 25 Mg Tab PO 25 mg DAILY KSENIA Administration Ticagrelor 90 mg 07/08/21 21:00 07/09/21 08:50 Ticagrelor 90 Mg Tab PO 90 mg BID KSENIA Administration Intake and Output 07/08/21 07/09/21 07/09/21 22:59 06:59 14:59 Intake Total 118 Balance 118 Intake: Oral 118 Other: Voiding Method Toilet # Voids 1 1 07/08/21 10:55 07/08/21 10:55
[2021-07-09 12:44] LABS: HDL Cholesterol 30.1 mg/dL (40.00-60.00)
[2021-07-09 12:55] LABS: LDL Cholesterol,Direct Reflex 48.3 mg/dL (0.00-129.00)
[2021-07-09 12:56] LABS: Chol/HDL Ratio 4.72 Ratio
[2021-07-09] MEDS: HYDROcodone/APAP 5-325MG 1 EACH TAB PO PRN (13:30)
[2021-07-09 13:42] VITALS: BP 126/87; PULSE 105; RESP 18; TEMP 97.8
--- NOTE | 2021-07-10 18:56 | HP ---
HISTORY AND PHYSICAL CHIEF COMPLAINT: Chest pain. HISTORY OF PRESENT ILLNESS: This is another admission of many for this 41-year-old obese male with insulin- dependent diabetes mellitus, which he does not make any effort to control at all. He also has had a longstanding history of coronary artery disease, atherosclerotic cardiomyopathy and congestive heart failure. He came back in with chest pain and was admitted. REVIEW OF SYSTEMS: He has had no syncope, neurologic problems, change in vision or hearing, cough, hemoptysis, orthopnea, PND, abdominal pain, nausea, vomiting, diarrhea, melena, urinary complaints, chronic renal failure, etc. Past medical history, family history, and personal and social histories are all otherwise unremarkable or noncontributory. He is not currently taking his medications properly, nor his insulin. PHYSICAL EXAMINATION: Blood pressure is 142/92 with a pulse of 83, respirations of 32, and he is afebrile. In general he appeared to be pale and he was overweight. Head, ears, eyes, nose, mouth and throat were normal. Neck veins were not distended. Chest is clear. Cardiac exam seemed to be normal. No murmurs or extra sounds. The abdomen is protuberant and soft. Extremities are normal. Neurologically he is intact. He is admitted to the hospital with diagnoses: 1. Unstable angina pectoris. 2. History of coronary artery disease. 3. Previous myocardial infarction. 4. Atherosclerotic cardiomyopathy. 5. Uncontrolled diabetes. PLAN: 1. Bed rest. 2. IV fluids. 3. Serial EKGs and enzymes. 4. Consult with Cardiology. MMSRAVANTHIL / RADHAN: [id number] /
--- NOTE | 2021-07-10 19:06 | DS ---
DISCHARGE SUMMARY DATE OF DISCHARGE: 07/09/2021 CHIEF COMPLAINT: Chest pain. HISTORY OF PRESENT ILLNESS AND PHYSICAL EXAMINATION: Details of this man's history and physical can be found in the initial workup. COURSE IN THE HOSPITAL: After admission he was placed on bedrest and started on intravenous fluids and nasal O2. He was seen by Cardiology. He had no further chest pain. Cardiology felt that he could be discharged. He will go home on his usual activity and medications and he will be seen in the office in several days. FINAL DIAGNOSIS: 1. Unstable angina pectoris. 2. Coronary artery disease. 3. Atherosclerotic cardiomyopathy. 4. Uncontrolled insulin-dependent diabetes mellitus. 5. Hypertension. 6. Obesity. 7. Charcot feet (bilateral). OPERATIONS: None. CONSULTATION: Cardiology. He is improved. MMSRAVANTHIL / IJN: [id number] /
[2021-07-11] MEDS ORDERED: PATIENT'S OWN (Dulaglutide [Trulicity] 0.75 MG/0.5 ML Each) SQ SCH (12:00)
== END 2021-07-09 16:23 | disposition home or self-care (01) ==
LOC: EC 10:14 → 6NMEDSUR 12:52
PROVIDERS: ADMIT Family Medicine; ATTEND Family Medicine
DX: I25.110 Atherosclerotic heart disease of native coronary artery with unstable angina pectoris (principal); I25.5 Ischemic cardiomyopathy; E11.65 Type 2 diabetes mellitus with hyperglycemia; I11.0 Hypertensive heart disease with heart failure; E66.9 Obesity, unspecified; Z68.41 Body mass index [BMI] 40.0-44.9, adult; A52.16 Charcot's arthropathy (tabetic); I50.22 Chronic systolic (congestive) heart failure; Z91.14 Patient's other noncompliance with medication regimen; I25.2 Old myocardial infarction; E78.5 Hyperlipidemia, unspecified; R61 Generalized hyperhidrosis; R06.02 Shortness of breath; R20.0 Anesthesia of skin; R11.0 Nausea; G47.33 Obstructive sleep apnea (adult) (pediatric); G89.29 Other chronic pain; M54.9 Dorsalgia, unspecified; G43.909 Migraine, unspecified, not intractable, without status migrainosus; F41.9 Anxiety disorder, unspecified; F32.A Depression, unspecified; E11.40 Type 2 diabetes mellitus with diabetic neuropathy, unspecified; G62.9 Polyneuropathy, unspecified; Z91.19 Patient's noncompliance with other medical treatment and regimen; Z95.5 Presence of coronary angioplasty implant and graft; Z95.810 Presence of automatic (implantable) cardiac defibrillator; Z79.4 Long term (current) use of insulin; Z79.02 Long term (current) use of antithrombotics/antiplatelets; Z79.84 Long term (current) use of oral hypoglycemic drugs; Z79.899 Other long term (current) drug therapy; Z87.891 Personal history of nicotine dependence; Z88.0 Allergy status to penicillin; Z82.49 Family history of ischemic heart disease and other diseases of the circulatory system; Z81.1 Family history of alcohol abuse and dependence; Z83.79 Family history of other diseases of the digestive system
CPT/HCPCS: 99285; 36415; 94640 ×2; 93005; 83880; 80061; 80053; 83690; 83735; 84484; 85025; 85610; 85730; 83721; 71046; G0378 ×2

== ENCOUNTER 2021-07-13 16:18 | Observation (INO) | payer OTHER ==
--- NOTE | 2021-07-13 19:16 | ED ---
Chest Pain HPI - General Chief Complaint: Chest Pain Stated Complaint: Chest pain,L arm numbness,DEANNA Time Seen by Provider: 07/13/21 18:54 Source: patient, RN notes reviewed Mode of arrival: ambulatory Limitations: no limitations - History of Present Illness Initial Comments: 41-year-old male with a recent history of admission for chest pain who is back today with complaints of retrosternal left-sided chest pain and some numbness in the left arm also shortness of breath accompanying this. He states the pain is sharp and feels like someone sitting on his chest 10/10 severity similar to his previous admission. No fevers chills nausea vomiting sweats cough he states he does have some exertional exacerbation of the same. MD Complaint: chest pain, other - Related Data Home Medications Medication Instructions Recorded Confirmed metFORMIN HCL [Glucophage] 1,000 mg PO DAILY 06/14/19 07/13/21 Atorvastatin [Lipitor] 80 mg PO DAILY 07/25/20 07/13/21 Furosemide [Lasix] 80 mg PO DAILY 07/25/20 07/13/21 HYDROcodone/APAP 5-325MG [[place] 1 tab PO Q6H PRN 03/05/21 07/13/21 5-325] Insulin NPH Hum/Reg Insulin Hm 30 unit SQ DAILY 03/05/21 07/13/21 [humuLIN 70/30 Kwikpen] Sacubitril/Valsartan [Entresto 24 1 tab PO BID 03/05/21 07/13/21 mg-26 mg Tablet] Albuterol Sulfate [Proair Hfa] 2 puff INHALATION RT-Q6H PRN 03/17/21 07/13/21 Dulaglutide [Trulicity] 0.75 mg SQ WE 04/25/21 07/13/21 Previous Rx's Medication Instructions Recorded Spironolactone [Aldactone] 25 mg PO DAILY #30 tab 04/01/20 Metoprolol Succinate (ER) [Toprol 100 mg PO DAILY tab.er.24h 07/26/20 XL] Ticagrelor [Brilinta] 90 mg PO BID 30 Days #60 tab 04/28/21 Allergies Allergy/AdvReac Type Severity Reaction Status Date / Time Penicillins Allergy Unknown Verified 07/13/21 21:05 Childhood Review of Systems ROS Statement: Those systems with pertinent positive or pertinent negative responses have been documented in the HPI. ROS Other: All systems not noted in ROS Statement are negative. EKG Findings - EKG Results: EKG: interpreted by [facility], sinus rhythm (Sinus tachycardia rate of 103. Interval 172 QRS duration 121 daily since QTC 342/4 to right axis deviation nonspecific septal configuration this is compared to an EKG dated 07/09/21) Past Medical History Past Medical History: Coronary Artery Disease (CAD), Chest Pain / Angina, Heart Failure, Diabetes Mellitus, Hyperlipidemia, Hypertension, Myocardial Infarction ([place]), Sleep Apnea/CPAP/BIPAP, Syncope Additional Past Medical History / Comment(s): Cardiomyopathy with AICD, IDDM type II, neuropathy bilateral feet, SP with Cpap use, migraines, chronic back pain. Last Myocardial Infarction Date:: 2015 History of Any Multi-Drug Resistant Organisms: None Reported Past Surgical History: AICD, Heart Catheterization, Heart Catheterization With Stent Additional Past Surgical History / Comment(s): 10/27/12 AICD, DFTs, PCI with 2 stents Past Anesthesia/Blood Transfusion Reactions: No Reported Reaction Date of Last Stent Placement:: 02/03/16 Type of Cardiac Device: AICD Device Placement Date:: 2012 Past Psychological History: Anxiety, Depression Smoking Status: Former smoker Past Alcohol Use History: None Reported Past Drug Use History: None Reported - Past Family History Mother Family Medical History: No Reported History Additional Family Medical History / Comment(s): Mother is healthy Brother(s) Family Medical History: Myocardial Infarction ([place]) Additional Family Medical History / Comment(s): Brother of a [place] at the age of 35yrs. Father Family Medical History: Liver Disease Additional Family Medical History / Comment(s): Father when pt was 19 yrs old from liver disease. He was an alcoholic. General Exam Limitations: no limitations General appearance: alert, anxious Head exam: Present: atraumatic, normocephalic, normal inspection Eye exam: Present: normal appearance, PERRL, EOMI. Absent: scleral icterus, conjunctival injection, periorbital swelling ENT exam: Present: normal exam, mucous membranes moist Neck exam: Present: normal inspection, full ROM, other (No surgery or bruits). Absent: tenderness, meningismus, lymphadenopathy Respiratory exam: Present: normal lung sounds bilaterally, chest wall tenderness. Absent: respiratory distress, wheezes, rales, rhonchi, stridor Cardiovascular Exam: Present: normal rhythm, tachycardia, normal heart sounds. Absent: systolic murmur, diastolic murmur, rubs, gallop, clicks GI/Abdominal exam: Present: soft, normal bowel sounds. Absent: distended, tenderness, guarding, rebound, rigid Extremities exam: Present: normal inspection, full ROM, normal capillary refill. Absent: tenderness, pedal edema, joint swelling, calf tenderness Back exam: Present: normal inspection Neurological exam: Present: alert, oriented X3, CN II-XII intact Psychiatric exam: Present: normal affect, normal mood Skin exam: Present: warm, dry, intact, normal color. Absent: rash Course Vital Signs 07/13/21 07/13/21 16:19 20:00 Temperature 97.0 F L Pulse Rate 113 H 89 Respiratory 18 20 Rate Blood Pressure 125/85 139/94 O2 Sat by Pulse 95 95 Oximetry Chest Pain MDM - MDM Imaging reviewed no acute findings EKG showed no definitive abnormalities from previous. Patient still has chest pain though there is some reproducibility to it in light of the presentation and previous history of facial be admitted Dr. Dan's being covered by [facility] I did discuss case with Dr. loredo. Disposition Clinical Impression: Atypical chest pain Disposition: ADMITTED IP TO THIS HOSP Condition: Fair Referrals: Amrit Dan MD [Primary Care Provider] - 1-2 days
[2021-07-13] MEDS ORDERED: ASPIRIN 81 MG PO STA (19:18)
[2021-07-13 19:19] LABS: Basophils # (A) 0.1 k/uL (0-0.2); Basophils % (A) 1 %; Eosinophils # (A) 0.3 k/uL (0-0.7); Eosinophils % (A) 3 %; HCT 49.9 % (39.0-53.0); HGB 17.7 gm/dL (13.0-17.5); Lymphocytes # (A) 1.6 k/uL (1.0-4.8); Lymphocytes % (A) 19 %; MCH 29.5 pg (25.0-35.0); MCHC 35.5 g/dL (31.0-37.0); Mean Platelet Volume 7.5; Monocytes # (A) 0.5 k/uL (0-1.0); Monocytes % (A) 6 %; Neutrophils # (A) 5.7 k/uL (1.3-7.7); Neutrophils % (A) 68 %; Platelet Count 218 k/uL (150-450); RBC 6.01 m/uL (4.30-5.90); RDW 14.1 % (11.5-15.5); WBC 8.3 k/uL (3.8-10.6)
[2021-07-13] MEDS ORDERED: NITROGLYCERIN OINT 1 INCH/GM PACKET TOPICAL STA (19:19)
[2021-07-13 19:28] LABS: ALT 28 U/L (4-49); AST 26 U/L (17-59); African American GFR (CKD) >90 (>60 ml/min/1.73 sqM); Albumin 4.5 g/dL (3.5-5.0); Alkaline Phosphatase 115 U/L (38-126); Anion Gap 12 mmol/L; Blood Urea Nitrogen 24 mg/dL (9-20); Calcium 9.7 mg/dL (8.4-10.2); Carbon Dioxide 23 mmol/L (22-30); Chloride 100 mmol/L (98-107); Glucose 230 mg/dL (74-99); Lipase 64 U/L (23-300); Magnesium 1.7 mg/dL (1.6-2.3); Non-African American GFR(CKD) >90 (>60 ml/min/1.73 sqM); Potassium 4.2 mmol/L (3.5-5.1); Sodium 135 mmol/L (137-145); Total Bilirubin 1.5 mg/dL (0.2-1.3); Total Protein 7.8 g/dL (6.3-8.2)
[2021-07-13 19:37] LABS: INR 0.9 (<1.2); Partial Thromboplastin Time 22.7 sec (22.0-30.0); Prothrombin Time 9.9 sec (9.0-12.0)
--- NOTE | 2021-07-13 19:58 | XR ---
EXAMINATION TYPE: XR chest 2V DATE OF EXAM: 07/13/2021 COMPARISON: 07/08/21 HISTORY: pain TECHNIQUE: Frontal and lateral views of the chest are obtained. FINDINGS: Cardiac pacemaker. There is no focal air space opacity, pleural effusion, or pneumothorax seen. The cardiac silhouette size is within normal limits. The osseous structures are intact. IMPRESSION: No acute cardiopulmonary process.
[2021-07-13] MEDS ORDERED: NITROGLYCERIN SL TABS 0.4 MG TAB SUBLINGUAL PRN (21:23)
[2021-07-13] MEDS ORDERED: MORPHINE SULFATE 4 MG/ML SYRINGE IV PRN (21:23)
[2021-07-13] MEDS ORDERED: HEPARIN SODIUM 1,000 UN/ML (10ML VL) IV ONE (21:23)
[2021-07-13] MEDS ORDERED: ALBUTEROL NEBULIZED 2.5 MG/3 ML INHALATION PRN (21:25)
[2021-07-13] MEDS ORDERED: HEPARIN SOD,PORK IN 0.45% NACL 25,000 UNIT in 0.45% NACL 1 250ML.BAG IV SCH (21:30)
[2021-07-13] MEDS: HYDROcodone/APAP 5-325MG 1 EACH TAB PO PRN (23:09)
[2021-07-14] MEDS: NITROGLYCERIN OINT 1 INCH/GM PACKET TOPICAL SCH ×2 (01:22→09:11)
--- NOTE | 2021-07-14 02:46 | P.HPIM ---
History of Present Illness H&P Date: 07/13/21 Chief Complaint: Chest 41-year-old female with diabetes mellitus hypertension coronary artery disease status post stents Patient most recent stents were inserted back in April of this year, he continues to be on aspirin and her length is compliant with his meds he was adm itted a few days ago for chest pain cardiology evaluated have recommended no further intervention is discharged home he returns back to days later with again complaints of chest pain this study described it as central chest pain and heaviness 10 out of 10 in severity associated with sweating and shortness of breath comes and goes started 2 nights ago and patient denies any associated nausea vomiting pain not related to activity. Usually these episodes happen at rest. Patient has history of smoking 4 years ago when he quit he denies any excessive alcohol intake or IV drug abuse. Today he felt the pain was extending to his jaw and left arm for which she grew concerned and decided to come that he was having cold sweats and short of breath. In the ED still seems to be anxious about this chest pain requesting that cardiology evaluates him and have complete workup. His blood work was unremarkable EKG showed sinus tachycardia with no acute ST changes and vital signs stable trops negative Review of Systems Pertinent positives as noted in HPI. All other systems were reviewed and are negative Past Medical History Past Medical History: Coronary Artery Disease (CAD), Chest Pain / Angina, Heart Failure, Diabetes Mellitus, Hyperlipidemia, Hypertension, Myocardial Infarction ([place]), Sleep Apnea/CPAP/BIPAP, Syncope Additional Past Medical History / Comment(s): Cardiomyopathy with AICD, IDDM typ e II, neuropathy bilateral feet, SP with Cpap use, migraines, chronic back pain. Last Myocardial Infarction Date:: 2015 History of Any Multi-Drug Resistant Organisms: None Reported Past Surgical History: AICD, Heart Catheterization, Heart Catheterization With Stent Additional Past Surgical History / Comment(s): 10/27/12 AICD, DFTs, PCI with 2 stents Past Anesthesia/Blood Transfusion Reactions: No Reported Reaction Date of Last Stent Placement:: 02/03/16 Type of Cardiac Device: AICD Device Placement Date:: 2012 Past Psychological History: Anxiety, Depression Smoking Status: Former smoker Past Alcohol Use History: None Reported Past Drug Use History: None Reported - Past Family History Mother Family Medical History: No Reported History Additional Family Medical History / Comment(s): Mother is healthy Brother(s) Family Medical History: Myocardial Infarction ([place]) Additional Family Medical History / Comment(s): Brother of a [place] at the age of 35yrs. Father Family Medical History: Liver Disease Additional Family Medical History / Comment(s): Father when pt was 19 yrs old from liver disease. He was an alcoholic. Medications and Allergies Home Medications Medication Instructions Recorded Confirmed Type metFORMIN HCL [Glucophage] 1,000 mg PO DAILY 06/14/19 07/13/21 History Spironolactone [Aldactone] 25 mg PO DAILY #30 tab 04/01/20 07/13/21 Rx Atorvastatin [Lipitor] 80 mg PO DAILY 07/25/20 07/13/21 History Furosemide [Lasix] 80 mg PO DAILY 07/25/20 07/13/21 History Metoprolol Succinate (ER) [Toprol 100 mg PO DAILY tab.er.24h 07/26/20 07/13/21 Rx XL] HYDROcodone/APAP 5-325MG [[place] 1 tab PO Q6H PRN 03/05/21 07/13/21 History 5-325] Insulin NPH Hum/Reg Insulin Hm 30 unit SQ DAILY 03/05/21 07/13/21 History [humuLIN 70/30 Kwikpen] Sacubitril/Valsartan [Entresto 24 1 tab PO BID 03/05/21 07/13/21 History mg-26 mg Tablet] Albuterol Sulfate [Proair Hfa] 2 puff INHALATION RT-Q6H PRN 03/17/21 07/13/21 History Dulaglutide [Trulicity] 0.75 mg SQ WE 04/25/21 07/13/21 History Ticagrelor [Brilinta] 90 mg PO BID 30 Days #60 tab 04/28/21 07/13/21 Rx Allergies Allergy/AdvReac Type Severity Reaction Status Date / Time Penicillins Allergy Unknown Verified 07/13/21 21:05 Childhood Physical Exam Vitals: Vital Signs Temp Pulse Resp BP Pulse Ox 07/13/21 20:00 89 20 139/94 95 07/13/21 16:19 97.0 F L 113 H 18 125/85 95 Intake and Output 07/13/21 07/13/21 07/14/21 14:59 22:59 06:59 Other: Weight 148.325 kg Constitutional: No acute distress, however he does look anxious, conversant, Eyes: Anicteric sclerae, moist conjunctiva, Pupils equal round reactive to light ENMT: NC/AT Oropharynx clear, no erythema, or exudates Neck: Supple no masses, or JVD No carotid bruits No thyromegaly Lungs: Clear to auscultation Clear to percussion Normal respiratory effort, no accessory muscle use Cardiovascular: Heart regular in rate and rhythm, No murmurs, gallops, or rubs No peripheral edema Abdominal: Soft Nontender, no guarding, rebound or rigidity Abdomen moving with respiration Normoactive bowel sounds No hepatomegaly, No splenomegaly No palpable mass No abdominal wall hernia noted Skin: Normal temperature, tone, texture, turgor No induration No subcutaneous nodules No rash, lesions No ulcers Extremities: No digital cyanosis No clubbing Pedal pulses intact and symmetrical Radial pulses intact and symmetrical No calf tenderness Psychiatric: Alert and oriented to person, place and time Appropriate affect fair judgement Neuro Muscles Strength 5/5 in all 4 extremities Sensation to light touch grossly present throughout Cranial nerves II-XII grossly intact No focal sensory deficits Lymphatics: no palpable cervical or supraclavicular , or inguinal lymph nodes Results CBC & Chem 7: 07/13/21 19:10 07/13/21 19:10 Labs: Abnormal Lab Results - Last 24 Hours (Table) 07/13/21 07/13/21 Range/Units 19:10 19:10 RBC 6.01 H (4.30-5.90) m/uL Hgb 17.7 H (13.0-17.5) gm/dL Sodium 135 L (137-145) mmol/L BUN 24 H (9-20) mg/dL Glucose 230 H (74-99) mg/dL Total Bilirubin 1.5 H (0.2-1.3) mg/dL Assessment and Plan Assessment: Atypical chest pain concerning for unstable angina Patient initiated on heparin drip Patient has strong cardiac history Continue home medications aspirin [place] test and metoprolol Continue to trend troponins Consult cardiology Monitor vital signs Pain control with opiates and nitro Blood work reviewed EKG showed no acute ST changes Symptomatically control of pain and Chronic conditions Diabetes mellitus, insulin sliding scale Hypertension resume cardiac meds losartan, hydrochlorothiazide, metoprolol Full code DVT prophylaxis on heparin drip per ACS Anticipated length of stay less than 2 midnights
[2021-07-14 06:56] LABS: Glucose,Whole Blood 217 mg/dL (75-99)
--- NOTE | 2021-07-14 07:42 | P.CRDCN ---
History of Present Illness Consult reason: chest pain (:) History of present illness: Known coronary artery disease status post multivessel angioplasty including right coronary artery and the diagonal branch ischemic cardiomyopathy with severe LV dysfunction history of AICD hypertension and dyslipidemia comes to Hospital complaining of chest pain. He describes it as precordial chest pressure moderate intensity at rest that radiates to his jaw and left arm. He was in the hospital a week ago with chest discomfort was ruled out for myocardial infarction and sent home. So far on this admission the EKG reveals sinus rhythm with evidence of prior anterior wall myocardial infarction 3 sets of cardiac enzymes have been negative. He has severe LV systolic dysfunction. Patient was admitted to hospital with chest pain back in April and underwent cardiac catheterization and angioplasty of right coronary artery by Dr. Hernandez. Given the recurrent hospitalizations and recurrent episodes of chest pain and the persistent chest discomfort on this admission suggestive of unstable angina I'm advising the patient to undergo cardiac catheterization I explained to him risk benefits and alternatives understood and accepted Dr. Hernandez will perform the cardiac catheterization sometime today and if he does not need revascularization hopefully he can be discharged home later Constitutional: Denies chills. Denies fever. Eyes: Denies blurred vision. Denies pain. Ears, nose, mouth and throat: Denies headache. Denies sore throat. Cardiovascular: Significant for chest pain. Denies shortness of breath. Respiratory: Denies cough. Gastrointestinal: Denies abdominal pain. Denies diarrhea. Denies nausea. Denies vomiting. Musculoskeletal: Denies myalgias. Integumentary: Denies pruritus. Denies rash. Neurological: Denies numbness. Denies weakness. Psychiatric: Denies anxiety. Denies depression. Endocrine: Denies fatigue. Denies weight change. Genitourinary: Denies burning, hematuria, frequency of urination. Hematological: No anemia or excess bleeding. General: The patient is awake and alert, in no distress, and does not appear acutely ill. Skin: Skin is warm and dry and no rashes or lesions are noted. Eye: Pupils are equal, round and reactive to light, extra-ocular movements are intact; there is normal conjunctiva bilaterally. Ears, nose, mouth and throat: There are moist mucous membranes and no oral l esions. Neck: The neck is supple, there is no tenderness or JVD. Cardiovascular: There is a regular rate and rhythm. No murmur, rub or gallop is appreciated. Respiratory: Lungs are clear to auscultation, respirations are non-labored, breath sounds are equal. Gastrointestinal: Soft, non-distended, non-tender abdomen without masses or organomegaly noted. There is no rebound or guarding present. Bowel sounds are unremarkable. Back: There is no tenderness to palpation in the midline. There is no obvious deformity. Musculoskeletal: Normal ROM, no tenderness, There is no pedal edema. There is no calf tenderness or swelling. Extremities: No edema. Vascular: Femoral pulse is normal. Posterior tibial pulses are normal .Dorsalis pedis is palpable. Neurological: CN II-XII intact. There are no obvious motor or sensory deficits. Speech is normal. Psychiatric: Cooperative, appropriate mood & affect, normal judgment. Labs: 3 sets of troponins are negative EKG does not reveal acute ischemic changes His ejection fraction is 25% Assessment and plan: Unstable angina Known coronary artery disease status post multivessel angioplasty Ischemic cardiomyopathy status post AICD Patient will undergo cardiac catheterization and if he does not need revascularization can hopefully be discharged home later today Past Medical History Past Medical History: Coronary Artery Disease (CAD), Chest Pain / Angina, Heart Failure, Diabetes Mellitus, Hyperlipidemia, Hypertension, Myocardial Infarction ([place]), Sleep Apnea/CPAP/BIPAP, Syncope Additional Past Medical History / Comment(s): Cardiomyopathy with AICD, IDDM type II, neuropathy bilateral feet, SP with Cpap use, migraines, chronic back pain. Last Myocardial Infarction Date:: 2015 History of Any Multi-Drug Resistant Organisms: None Reported Past Surgical History: AICD, Heart Catheterization, Heart Catheterization With Stent Additional Past Surgical History / Comment(s): 10/27/12 AICD, DFTs, PCI with 2 stents Past Anesthesia/Blood Transfusion Reactions: No Reported Reaction Date of Last Stent Placement:: 02/03/16 Type of Cardiac Device: AICD Device Placement Date:: 2012 Past Psychological History: Anxiety, Depression Smoking Status: Former smoker Past Alcohol Use History: None Reported Past Drug Use History: None Reported - Past Family History Mother Family Medical History: No Reported History Additional Family Medical History / Comment(s): Mother is healthy Brother(s) Family Medical History: Myocardial Infarction ([place]) Additional Family Medical History / Comment(s): Brother of a MD at the age of 35yrs. Father Family Medical History: Liver Disease Additional Family Medical History / Comment(s): Father when pt was 19 yrs old from liver disease. He was an alcoholic. Medications and Allergies Home Medications Medication Instructions Recorded Confirmed Type metFORMIN HCL [Glucophage] 1,000 mg PO DAILY 06/14/19 07/13/21 History Spironolactone [Aldactone] 25 mg PO DAILY #30 tab 04/01/20 07/13/21 Rx Atorvastatin [Lipitor] 80 mg PO DAILY 07/25/20 07/13/21 History Furosemide [Lasix] 80 mg PO DAILY 07/25/20 07/13/21 History Metoprolol Succinate (ER) [Toprol 100 mg PO DAILY tab.er.24h 07/26/20 07/13/21 Rx XL] HYDROcodone/APAP 5-325MG [[place] 1 tab PO Q6H PRN 03/05/21 07/13/21 History 5-325] Insulin NPH Hum/Reg Insulin Hm 30 unit SQ DAILY 03/05/21 07/13/21 History [humuLIN 70/30 Kwikpen] Sacubitril/Valsartan [Entresto 24 1 tab PO BID 03/05/21 07/13/21 History mg-26 mg Tablet] Albuterol Sulfate [Proair Hfa] 2 puff INHALATION RT-Q6H PRN 03/17/21 07/13/21 History Dulaglutide [Trulicity] 0.75 mg SQ WE 04/25/21 07/13/21 History Ticagrelor [Brilinta] 90 mg PO BID 30 Days #60 tab 04/28/21 07/13/21 Rx Allergies Allergy/AdvReac Type Severity Reaction Status Date / Time Penicillins Allergy Unknown Verified 07/13/21 21:05 Childhood Physical Exam Vitals: Vital Signs Temp Pulse Pulse Resp BP BP Pulse Ox 07/14/21 07:00 98.1 F 79 20 113/73 97 07/14/21 00:51 97.6 F 94 20 105/69 93 L 07/13/21 20:00 89 20 139/94 95 07/13/21 16:19 97.0 F L 113 H 18 125/85 95 Intake and Output 07/13/21 07/14/21 07/14/21 22:59 06:59 14:59 Other: # Voids 2 Weight 148.325 kg 148.325 kg Results 07/13/21 19:10 07/13/21 19:10 Cardiac Enzymes 07/13/21 07/13/21 07/13/21 Range/Units 19:10 19:10 22:49 AST 26 (17-59) U/L Troponin I <0.012 <0.012 (0.000-0.034) ng/mL 07/14/21 Range/Units 03:01 AST (17-59) U/L Troponin I <0.012 (0.000-0.034) ng/mL Coagulation 07/13/21 Range/Units 19:10 PT 9.9 (9.0-12.0) sec APTT 22.7 (22.0-30.0) sec CBC 07/13/21 Range/Units 19:10 WBC 8.3 (3.8-10.6) k/uL RBC 6.01 H (4.30-5.90) m/uL Hgb 17.7 H (13.0-17.5) gm/dL Hct 49.9 (39.0-53.0) % Plt Count 218 (150-450) k/uL Comprehensive Metabolic Panel 07/13/21 Range/Units 19:10 Sodium 135 L (137-145) mmol/L Potassium 4.2 (3.5-5.1) mmol/L Chloride 100 (98-107) mmol/L Carbon Dioxide 23 (22-30) mmol/L BUN 24 H (9-20) mg/dL Creatinine 0.99 (0.66-1.25) mg/dL Glucose 230 H (74-99) mg/dL Calcium 9.7 (8.4-10.2) mg/dL AST 26 (17-59) U/L ALT 28 (4-49) U/L Alkaline Phosphatase 115 (38-126) U/L Total Protein 7.8 (6.3-8.2) g/dL Albumin 4.5 (3.5-5.0) g/dL Current Medications Generic Name Dose Route Start Last Admin Trade Name Freq PRN Reason Stop Dose Admin Hydrocodone Bitart/Acetaminophen 1 each 07/13/21 21:25 07/13/21 23:09 Hydrocodone/Apap 5-325mg 1 Each Tab PO 1 each Q6H PRN Administration Pain Albuterol Sulfate 2.5 mg 07/13/21 21:25 Albuterol Nebulized 2.5 Mg/3 Ml INHALATION RT-Q6H PRN Shortness Of Breath Aspirin 81 mg 07/14/21 09:00 Aspirin 81 Mg PO DAILY [facility] Atorvastatin Calcium 80 mg 07/14/21 09:00 Atorvastatin 80 Mg Tab PO DAILY [facility] Furosemide 80 mg 07/14/21 09:00 Furosemide 80 Mg Tab PO DAILY [facility] Heparin Sodium/Sodium Chloride 250 mls @ 10 mls/hr 07/13/21 21:30 07/13/21 23:04 25,000 unit/ Sodium Chloride IV 6.7419 units/kg/hr .Q24H KSENIA 10 mls/hr Administration Protocol 6.7419 UNITS/KG/HR Insulin Aspart 30 unit 07/14/21 09:00 Insuln Asp Prt/Insulin Aspart 100 Unit/Ml 10 Ml Vial SQ DAILY [facility] Insulin Aspart 0 unit 07/14/21 07:30 Insulin Aspart (Novolog) 100 Unit/Ml Vial SQ ACHS [facility] Protocol Metoprolol Succinate 100 mg 07/14/21 09:00 Metoprolol Succinate (Er) 100 Mg Tab.Er.24h PO DAILY [facility] Morphine Sulfate 4 mg 07/13/21 21:23 Morphine Sulfate 4 Mg/Ml Syringe IV Q5M PRN Chest Pain Nitroglycerin 0.4 mg 07/13/21 21:23 Nitroglycerin Sl Tabs 0.4 Mg Tab SUBLINGUAL Q5M PRN Chest Pain Nitroglycerin 1 inch 07/14/21 00:00 07/14/21 01:22 Nitroglycerin Oint 1 Inch/Gm Packet TOPICAL 1 inch Q6HR [facility] Administration Trulicity 0.75 each 07/19/21 21:25 SQ WE [facility] Sacubitril/Valsartan 1 each 07/14/21 09:00 Sacubitril/Valsartan 24 Mg-26 Mg Tablet PO BID [facility] Spironolactone 25 mg 07/14/21 09:00 Spironolactone 25 Mg Tab PO DAILY [facility] Ticagrelor 90 mg 07/14/21 09:00 Ticagrelor 90 Mg Tab PO BID [facility] Intake and Output 07/13/21 07/14/21 07/14/21 22:59 06:59 14:59 Other: # Voids 2 Weight 148.325 kg 148.325 kg 07/13/21 19:10 07/13/21 19:10
[2021-07-14] MEDS ORDERED: ASPIRIN 325 MG TAB PO ONE (08:10)
[2021-07-14] MEDS ORDERED: SODIUM CHLORIDE 0.9% 1,000 ML IV ONE (08:10)
[2021-07-14] MEDS ORDERED: TICAGRELOR 90 MG TAB PO ONE (08:10)
[2021-07-14] MEDS ORDERED: MIDAZOLAM 2 MG/2 ML VIAL IV ONE (08:12)
[2021-07-14] MEDS ORDERED: LIDOCAINE 1% INJ 10MG/ML (20 ML MDV) SQ ONE (08:15)
[2021-07-14] MEDS: VERAPAMIL SYRINGE (5 MG/10 ML) INTRAARTER ONE ×2 (08:18→08:53)
[2021-07-14] MEDS ORDERED: IOPAMIDOL-370 125ML BTL INJ ONE (08:49)
[2021-07-14] MEDS ORDERED: metFORMIN 500 MG TAB PO SCH (09:00)
[2021-07-14] MEDS ORDERED: ASPIRIN 325 MG TAB PO SCH (09:00)
[2021-07-14] MEDS ORDERED: ATROPINE SULFATE 0.1 MG/ML 10ML SYRINGE IV PRN (09:07)
[2021-07-14] MEDS ORDERED: ZOLPIDEM 5 MG TAB PO PRN (09:07)
[2021-07-14] MEDS ORDERED: RX INFO: IV CONTRAST WAS GIVEN 1 EACH MISC MISCELLANE PRN (09:07)
[2021-07-14] MEDS ORDERED: MAG HYDROX/AL HYDROX/SIMETH 30 ML CUP PO PRN (09:07)
[2021-07-14] MEDS: ASPIRIN 81 MG PO SCH (09:12)
[2021-07-14] MEDS: TICAGRELOR 90 MG TAB PO SCH ×2 (09:12→19:58)
[2021-07-14] MEDS: INSULIN ASPART (NovoLOG) 100 UNIT/ML VIAL SQ SCH ×4 (09:13→19:59)
[2021-07-14 09:14] LABS: Glucose,Whole Blood 223 mg/dL (75-99)
[2021-07-14] MEDS ORDERED: SODIUM CHLORIDE 0.9% 1,000 ML in EMPTY BAG 1 BAG IV SCH (09:15)
[2021-07-14] MEDS: ATORVASTATIN 80 MG TAB PO SCH (09:32)
[2021-07-14] MEDS: INSULN ASP PRT/INSULIN ASPART 100 UNIT/ML 10 ML VIAL SQ SCH (09:33)
[2021-07-14] MEDS: SPIRONOLACTONE 25 MG TAB PO SCH (09:33)
[2021-07-14] MEDS: METOPROLOL SUCCINATE (ER) 100 MG TAB.ER.24H PO SCH (09:33)
[2021-07-14] MEDS: SACUBITRIL/VALSARTAN 24 MG-26 MG TABLET PO SCH ×2 (09:33→19:59)
[2021-07-14] MEDS: FUROSEMIDE 80 MG TAB PO SCH (09:33)
[2021-07-14] MEDS: HYDROcodone/APAP 5-325MG 1 EACH TAB PO PRN ×3 (09:34→22:39)
[2021-07-14 10:55] LABS: HDL Cholesterol 27.7 mg/dL (40.00-60.00)
[2021-07-14 11:06] VITALS: BMI 44.3
[2021-07-14 11:08] LABS: Chol/HDL Ratio 4.91 Ratio; LDL Cholesterol,Direct Reflex 43.3 mg/dL (0.00-129.00)
[2021-07-14 11:52] LABS: Glucose,Whole Blood 285 mg/dL (75-99)
--- NOTE | 2021-07-14 15:17 | P.PN ---
Subjective Progress Note Date: 07/14/21 No new complaints today. Pt appears comfortable. Underwent PCI today with additional KIERA placement. Also underwent balloon angioplasty to previous stents x 2. Gen: awake, alert HEENT: normocephalic, atraumatic, good hearing acuity, moist mucous membranes Resp: good air exchange, breathing comfortably with no accessory muscle use CVS: good distal perfusion x 4, GI: soft, NTTP, ND : no SPT, no CVAT, méndez catheter not present MSK: no pitting edema, no clubbing Neuro: non-focal, moving all extremities Psych: cooperative, euthymic mood Assessment/plan: Unstable angina Patient initiated on heparin drip Patient has strong cardiac history Continue home medications aspirin Temperance test and metoprolol Continue to trend troponins Consult cardiology Monitor vital signs Pain control with opiates and nitro Blood work reviewed EKG showed no acute ST changes Symptomatically control of pain and Diabetes mellitus, insulin sliding scale Hypertension resume cardiac meds losartan, hydrochlorothiazide, metoprolol Full code DVT prophylaxis on heparin drip per ACS Anticipated length of stay less than 2 midnights Objective - Vital Signs Vital signs: Vital Signs Temp 98.2 F 07/14/21 14:13 Pulse 99 07/14/21 14:13 Resp 16 07/14/21 14:13 BP 177/77 07/14/21 14:13 Pulse Ox 94 L 07/14/21 14:13 Intake & Output 07/13/21 07/14/21 07/14/21 18:59 06:59 18:59 Intake Total 318 Balance 318 Weight 148.325 kg 148.325 kg 148.325 kg Intake: IV 200 Oral 118 Other: # Voids 2 3 # Bowel Movements 1 - Labs CBC & Chem 7: 07/13/21 19:10 07/13/21 19:10 Labs: Abnormal Lab Results - Last 24 Hours (Table) 07/13/21 07/13/21 07/14/21 Range/Units 19:10 19:10 06:45 RBC 6.01 H (4.30-5.90) m/uL Hgb 17.7 H (13.0-17.5) gm/dL Sodium 135 L (137-145) mmol/L BUN 24 H (9-20) mg/dL Glucose 230 H (74-99) mg/dL POC Glucose (mg/dL) 217 H (75-99) mg/dL Total Bilirubin 1.5 H (0.2-1.3) mg/dL Triglycerides (0.00-149.00) mg/dL HDL Cholesterol (40.00-60.00) mg/dL 07/14/21 07/14/21 07/14/21 Range/Units 07:05 09:13 11:46 RBC (4.30-5.90) m/uL Hgb (13.0-17.5) gm/dL Sodium (137-145) mmol/L BUN (9-20) mg/dL Glucose (74-99) mg/dL POC Glucose (mg/dL) 223 H 285 H (75-99) mg/dL Total Bilirubin (0.2-1.3) mg/dL Triglycerides 599.00 H (0.00-149.00) mg/dL HDL Cholesterol 27.70 L (40.00-60.00) mg/dL
[2021-07-14 16:58] LABS: Glucose,Whole Blood 432 mg/dL (75-99)
[2021-07-14 19:52] LABS: Glucose,Whole Blood 306 mg/dL (75-99)
--- NOTE | 2021-07-14 20:53 | P.PCN ---
Date of Procedure: 07/14/21 Operative Findings: CARDIAC CATHETERIZATION AND PERCUTANEOUS CORONARY INTERVENTION PERFORMING PHYSICIAN: Damion Hernandez MD, [facility] PROCEDURE PERFORMED: 1. Selective right and left coronary angiogram 2. Left heart catheterization 3. Successful stentong of the dista RCA using 3.5 x 23 mm Xience KIERA with good angiografic result 4. IVUS of the RCA INDICATION: Chest discomfort and this 41-year-old gentleman who is known to have CAD with prior stenting of the RCA who was admitted to the hospital with CP concerning for unstable angina COMPLICATION: None APPROACH: Right radial artery LEVEL OF SEDATION: Moderate with a sedation length of 30 PROCEDURE DESCRIPTION: After obtaining an informed consent, the patient was brought to cardiac center medical and lab director. Local anesthesia was performed using lidocaine subcutaneously. The right radial artery was cannulated using Seldinger technique, the guidewire passed easily, following that we advanced a 5-Turkish sheath dilator assembly, the wire and dilator were removed and sheath was flushed. Following that, 2 mg of verapamil. Heparin was not given Selective right and left coronary angiogram using a 6-Turkish JR4 and JL 3.5 catheters. Following that we did left heart catheterization using 6-Turkish pigtail catheter. After that I intervened on the RCA The procedure was completed there was no complication. SELECTIVE CORONARY ANGIOGRAM: The right coronary artery: Is a large caliber vessel and a dominant vessel. The proximal RCA appeared to have mild disease only. The mid, RCA is stented and the stent is patent, The RCA distally is subtotally occluded. Left main: Is angiographically has mild dx only. Bifurcates into left circumflex and left anterior descending artery The left circumflex: Is chronically occluded, which is known from before The left anterior descending artery: Is a large caliber vessel. The proximal and mid have mild dx only. Distally is subtotally occluded which is known from before HEMODYNAMICS: The LVEDP appears to be 4 mmHg without significant gradient across aortic valve PCI OF THE RCA; Anticoagulation was done with heparin with continuous ACT monitoring. I did engaged the RCA with JR4 guide. I wired it with whisper wire and the wire was advanced to the PLV. I did PTCA with 3.0 mm balloon then IVUS was done and showed a diameter of 3.5 to 4 mm. I deployed 3,5 x 23 mm Xience which was positined under fluroscopy and then deplyed under 14 BERYL for 20 seconds. Post dilatation was done with 4 mm balloon. The final angiogram showed good result. CONCLUSION: 1. Subtotally occluded distal RCA, which is in-stent 2. MD PHYSICIAN DERMATOLOGIST of the LCX 3. MD PHYSICIAN DERMATOLOGIST of the distal LAD 4. Low left side filling pressure POSTPROCEDURE MANAGEMENT: Dual antiplatelet for at least a year
[2021-07-15] MEDS ORDERED: HEPARIN SODIUM,PORCINE 10,000 UNIT in SODIUM CHLORIDE 0.9% 1,000 ML IRRIGATION PRN (07:00)
[2021-07-15] MEDS ORDERED: HEPARIN SODIUM,PORCINE 2,500 UNIT in SODIUM CHLORIDE 0.9% 250 ML IRRIGATION PRN (07:00)
[2021-07-15 07:51] LABS: Glucose,Whole Blood 291 mg/dL (75-99)
[2021-07-15] MEDS: TICAGRELOR 90 MG TAB PO SCH (08:06)
[2021-07-15] MEDS: SACUBITRIL/VALSARTAN 24 MG-26 MG TABLET PO SCH (08:07)
[2021-07-15] MEDS: METOPROLOL SUCCINATE (ER) 100 MG TAB.ER.24H PO SCH (08:07)
[2021-07-15] MEDS: SPIRONOLACTONE 25 MG TAB PO SCH (08:07)
[2021-07-15] MEDS: ASPIRIN 81 MG PO SCH (08:07)
[2021-07-15] MEDS: FUROSEMIDE 80 MG TAB PO SCH (08:07)
[2021-07-15] MEDS: ATORVASTATIN 80 MG TAB PO SCH (08:07)
[2021-07-15] MEDS: HYDROcodone/APAP 5-325MG 1 EACH TAB PO PRN (08:08)
[2021-07-15] MEDS: INSULN ASP PRT/INSULIN ASPART 100 UNIT/ML 10 ML VIAL SQ SCH (08:08)
[2021-07-15] MEDS: INSULIN ASPART (NovoLOG) 100 UNIT/ML VIAL SQ SCH ×2 (08:08→12:46)
[2021-07-15 12:02] LABS: Basophils # (A) 0.1 k/uL (0-0.2); Basophils % (A) 2 %; Eosinophils # (A) 0.3 k/uL (0-0.7); Eosinophils % (A) 3 %; HCT 49.8 % (39.0-53.0); HGB 16.7 gm/dL (13.0-17.5); Lymphocytes # (A) 1.8 k/uL (1.0-4.8); Lymphocytes % (A) 25 %; MCH 28.7 pg (25.0-35.0); MCHC 33.5 g/dL (31.0-37.0); MCV 85.8 fL (80.0-100.0); Mean Platelet Volume 7.5; Monocytes # (A) 0.6 k/uL (0-1.0); Monocytes % (A) 8 %; Neutrophils # (A) 4.5 k/uL (1.3-7.7); Neutrophils % (A) 61 %; Platelet Count 192 k/uL (150-450); RBC 5.81 m/uL (4.30-5.90); RDW 13.3 % (11.5-15.5); WBC 7.4 k/uL (3.8-10.6)
[2021-07-15 12:15] LABS: Glucose,Whole Blood 451 mg/dL (75-99)
[2021-07-15 12:18] LABS: African American GFR (CKD) >90 (>60 ml/min/1.73 sqM); Anion Gap 9 mmol/L; Blood Urea Nitrogen 19 mg/dL (9-20); Calcium 8.7 mg/dL (8.4-10.2); Carbon Dioxide 27 mmol/L (22-30); Chloride 99 mmol/L (98-107); Glucose 377 mg/dL (74-99); Non-African American GFR(CKD) >90 (>60 ml/min/1.73 sqM); Potassium 4.2 mmol/L (3.5-5.1); Sodium 135 mmol/L (137-145)
--- NOTE | 2021-07-15 13:08 | P.PN ---
Subjective Progress Note Date: 07/15/21 This pleasant 41-year-old gentleman with a past medical history significant for CAD, prior stenting of the RCA and diagonal branch, ischemic cardiomyopathy, status post AICD, hypertension and hyperlipidemia. He follows with Dr. Orlando in the office. Presented to the hospital with chest pressure of moderate intensity at rest that radiated to his jaw and left arm. Subsequently underwent cardiac catheterization which revealed DEPUTY PROGRAM MANAGER of the left circumflex, CTL of the distal LAD and subtotally occluded distal RCA which is in-stent. He subsequently underwent stent placement of the subtotally occluded distal RCA. Upon examination he is sitting up in a chair. Continues to complain of constant mild left sided chest discomfort with some tenderness to palpation. Otherwise denies any shortness of breath, orthopnea, PND, edema, lightheadedness or dizziness. Vital signs are stable. He is currently on aspirin 81 mg by mouth daily, atorvastatin 80 mg by mouth daily, Lasix 80 mg by mouth daily, insulin, metoprolol succinate 100 mg by mouth daily, Entresto 2426 milligrams by mouth twice a day, Aldactone 25 mg by mouth daily, Brilinta 90 mg by mouth twice a day and Trulicity. Objective - Vital Signs Vital signs: Vital Signs Temp 97.6 F 07/15/21 07:00 Pulse 93 07/15/21 08:32 Resp 16 07/15/21 07:00 BP 116/80 07/15/21 07:00 Pulse Ox 96 07/15/21 07:00 Intake & Output 07/14/21 07/15/21 07/15/21 18:59 06:59 18:59 Intake Total 436 700 Balance 436 700 Weight 148.325 kg Intake: IV 200 Oral 236 700 Other: # Voids 3 2 # Bowel Movements 1 1 - Exam PHYSICAL EXAMINATION: HEENT: Head is atraumatic, normocephalic. Pupils equal, round. Neck is supple. There is no elevated jugular venous pressure. HEART EXAMINATION: Heart sounds regular, S1 and S2 normal. No murmur or gallop heard. CHEST EXAMINATION: Lungs are diminished but clear to auscultation. No wheezes, rhonchi, or rales. Left upper chest wall tenderness is noted on palpation. ABDOMEN: Soft, obese, nontender. Bowel sounds are heard. No organomegaly noted. EXTREMITIES: 2+ peripheral pulses with no evidence of peripheral edema and no calf tenderness noted. Right radial puncture sites soft with strong palpable pulse, no ecchymosis, no hematoma. NEUROLOGIC patient is awake, alert and oriented x3. . - Labs CBC & Chem 7: 07/15/21 11:26 07/15/21 11:26 Labs: Abnormal Lab Results - Last 24 Hours (Table) 07/14/21 07/14/21 07/14/21 Range/Units 07:05 09:13 11:46 POC Glucose (mg/dL) 223 H 285 H (75-99) mg/dL Triglycerides 599.00 H (0.00-149.00) mg/dL HDL Cholesterol 27.70 L (40.00-60.00) mg/dL 07/14/21 07/14/21 07/15/21 Range/Units 16:56 19:51 07:50 POC Glucose (mg/dL) 432 H 306 H 291 H (75-99) mg/dL Triglycerides (0.00-149.00) mg/dL HDL Cholesterol (40.00-60.00) mg/dL Assessment and Plan Assessment: #1 CAD with DEPUTY PROGRAM MANAGER of the left circumflex, DEPUTY PROGRAM MANAGER of the distal LAD and in-stent restenosis of the RCA, status post stent placement done yesterday #2 ischemic cardiomyopathy, status post AICD #3 hypertension #4 hyperlipidemia #5 diabetes mellitus Plan: From cardiology's perspective medications were reviewed and we will continue the same. From our standpoint patient may be discharged home he will follow-up in the office with Dr. Hernandez in about a week. REACTOR TECHNICIAN note has been reviewed, I agree with a documented findings and plan of care. Patient was seen and examined.
[2021-07-15 13:10] VITALS: BP 120/78; PULSE 82; RESP 18; TEMP 97.8
--- NOTE | 2021-07-15 13:34 | P.DS ---
Providers Date of admission: 07/13/21 21:23 Expected date of discharge: 07/15/21 Attending physician: Bree Alcantara MD Consults: 07/13/21 21:23 Consult Physician Urgent Consulting Provider: Alhaji Lowery Consult Reason/Comments: Chest pain Do you want consulting provider notified?: Yes 07/14/21 09:08 Consult Physician Routine Consulting Provider: [facility] Consult Reason/Comments: Post Interventional patient Do you want consulting provider notified?: Already Contacted Primary care physician: Amrit Brambilahven [facility] Course: Unstable angina Diabetes mellitus Hypertension 41-year-old male with diabetes mellitus hypertension coronary artery disease status post stents was admitted with complaints of chest pain this study described it as central chest pain and heaviness 10 out of 10 in severity associated with sweating and shortness of breath. In the ED still seems to be anxious about this chest pain requesting that cardiology evaluates him and have complete workup. His blood work was unremarkable EKG showed sinus tachycardia with no acute ST changes and vital signs stable. Trops negative x 3. Taken for LHC on 07/14 and underwent PCI to the RCA. Noted on LHC was chronically occluded LCx and distal LAD disease. Pt also did have balloon angioplasty to previous stent sites x 2. Did well following the procedure and was monitored overnight for additional night to ensure no recurrence of pain and good hemodynamic control of radial access site. Pt doing well today and was d/c'd home on DAPT with plans to f/u in 1 week with cardiology. Notable changes during stay also include the uptitration of home insulin given hyperglycemia on home dose. Gen: awake, alert HEENT: normocephalic, atraumatic, good hearing acuity, moist mucous membranes Resp: good air exchange, breathing comfortably with no accessory muscle use CVS: good distal perfusion x 4, GI: soft, NTTP, ND : no SPT, no CVAT, méndez catheter not present MSK: no pitting edema, no clubbing Neuro: non-focal, moving all extremities Psych: cooperative, euthymic mood Patient Condition at Discharge: Good Plan - Discharge Summary New Discharge Prescriptions: New Aspirin 81 mg PO DAILY #30 Nitroglycerin Sl Tabs [Nitrostat] 0.4 mg SUBLINGUAL Q5M PRN #30 tab PRN Reason: Chest Pain Continue metFORMIN HCL [Glucophage] 1,000 mg PO DAILY Spironolactone [Aldactone] 25 mg PO DAILY #30 tab Sacubitril/Valsartan [Entresto 24 mg-26 mg Tablet] 1 tab PO BID Albuterol Sulfate [Proair Hfa] 2 puff INHALATION RT-Q6H PRN PRN Reason: Shortness Of Breath Furosemide [Lasix] 80 mg PO DAILY Metoprolol Succinate (ER) [Toprol XL] 100 mg PO DAILY tab.er.24h HYDROcodone/APAP 5-325MG [Dixon 5-325] 1 tab PO Q6H PRN PRN Reason: Pain Dulaglutide [Trulicity] 0.75 mg SQ WE Ticagrelor [Brilinta] 90 mg PO BID 30 Days #60 tab Changed Atorvastatin [Lipitor] 80 mg PO HS #0 Insulin NPH Hum/Reg Insulin Hm [humuLIN 70/30 Kwikpen] 40 unit SQ DAILY #0 Discharge Medication List metFORMIN HCL [Glucophage] 1,000 mg PO DAILY 06/14/19 [History] Spironolactone [Aldactone] 25 mg PO DAILY #30 tab 04/01/20 [Rx] Furosemide [Lasix] 80 mg PO DAILY 07/25/20 [History] Metoprolol Succinate (ER) [Toprol XL] 100 mg PO DAILY tab.er.24h 07/26/20 [Rx] HYDROcodone/APAP 5-325MG [Dixon 5-325] 1 tab PO Q6H PRN 03/05/21 [History] Sacubitril/Valsartan [Entresto 24 mg-26 mg Tablet] 1 tab PO BID 03/05/21 [History] Albuterol Sulfate [Proair Hfa] 2 puff INHALATION RT-Q6H PRN 03/17/21 [History] Dulaglutide [Trulicity] 0.75 mg SQ WE 04/25/21 [History] Ticagrelor [Brilinta] 90 mg PO BID 30 Days #60 tab 04/28/21 [Rx] Aspirin 81 mg PO DAILY #30 07/15/21 [Rx] Atorvastatin [Lipitor] 80 mg PO HS #0 07/15/21 [Rx] Insulin NPH Hum/Reg Insulin Hm [humuLIN 70/30 Kwikpen] 40 unit SQ DAILY #0 07/15/21 [Rx] Nitroglycerin Sl Tabs [Nitrostat] 0.4 mg SUBLINGUAL Q5M PRN #30 tab 07/15/21 [Rx] Follow up Appointment(s)/Referral(s): Amrit Dan MD [Primary Care Provider] - 1-2 days (please call to make a follow up appointment on Saturday during business hours. ) Discharge Disposition: HOME SELF-CARE
[2021-07-15] MEDS ORDERED: INSULIN DETEMIR (LEVEMIR) 100 UNIT/ML SYR SQ ONE (13:45)
[2021-07-19] MEDS ORDERED: TRULICITY SQ SCH (21:25)
== END 2021-07-15 13:57 | disposition home or self-care (01) ==
LOC: EC 16:18 → 6NMEDSUR 21:23
PROVIDERS: ADMIT Internal Medicine; ATTEND Internal Medicine
DX: I25.110 Atherosclerotic heart disease of native coronary artery with unstable angina pectoris (principal); T82.855A Stenosis of coronary artery stent, initial encounter; E11.65 Type 2 diabetes mellitus with hyperglycemia; I25.5 Ischemic cardiomyopathy; I11.0 Hypertensive heart disease with heart failure; I50.9 Heart failure, unspecified; E78.5 Hyperlipidemia, unspecified; I25.2 Old myocardial infarction; E11.42 Type 2 diabetes mellitus with diabetic polyneuropathy; G47.33 Obstructive sleep apnea (adult) (pediatric); G43.909 Migraine, unspecified, not intractable, without status migrainosus; G89.29 Other chronic pain; M54.9 Dorsalgia, unspecified; F32.A Depression, unspecified; F41.9 Anxiety disorder, unspecified; Z79.82 Long term (current) use of aspirin; Z79.84 Long term (current) use of oral hypoglycemic drugs; Z79.4 Long term (current) use of insulin; Z79.02 Long term (current) use of antithrombotics/antiplatelets; Z79.899 Other long term (current) drug therapy; Z88.0 Allergy status to penicillin; Z95.810 Presence of automatic (implantable) cardiac defibrillator; Z95.5 Presence of coronary angioplasty implant and graft; Z87.891 Personal history of nicotine dependence; Z82.49 Family history of ischemic heart disease and other diseases of the circulatory system; Z83.79 Family history of other diseases of the digestive system; Z81.1 Family history of alcohol abuse and dependence
CPT/HCPCS: 99152; 99153; 96366; 96376; 96365; 99285; 36415; 94640; 93005; 92978; 93458; 85379; 83880; 80061; 80053; 80048; 83690; 83735; 84484 ×2; 85025 ×2; 85610; 85730 ×2; 83721; 71046; G0378 ×3; C9600; C1769; C1887 ×2; C1894; C1725 ×2; C1753; C1874; J2250; J2001; J1644 ×3; Q9967

== ENCOUNTER 2021-09-12 08:31 | Day surgery (SDC) | payer OTHER ==
[~2021-09-12 08:31] MED LIST: SODIUM CHLORIDE 0.9% 1,000 ML IV SCH
[2021-09-12] MEDS ORDERED: SODIUM CHLORIDE 0.9% 500 ML 500 ML IV ONE (08:42)
[2021-09-12 08:55] LABS: Glucose,Whole Blood 265 mg/dL (75-99)
[2021-09-12 08:56] VITALS: TEMP 97.1
[2021-09-12] MEDS ORDERED: INSULIN ASPART (NovoLOG) 100 UNIT/ML VIAL SQ SCH (08:56)
[2021-09-12 09:27] LABS: African American GFR (CKD) >90 (>60 ml/min/1.73 sqM); Anion Gap 13 mmol/L; Blood Urea Nitrogen 21 mg/dL (9-20); Calcium 9.1 mg/dL (8.4-10.2); Carbon Dioxide 26 mmol/L (22-30); Chloride 100 mmol/L (98-107); Glucose 236 mg/dL (74-99); Non-African American GFR(CKD) 82 (>60 ml/min/1.73 sqM); Potassium 3.8 mmol/L (3.5-5.1); Sodium 139 mmol/L (137-145)
[2021-09-12] MEDS ORDERED: PROPOFOL 10 MG/ML 20 ML VIAL IV ONE (09:35)
[2021-09-12] MEDS ORDERED: MIDAZOLAM 2 MG/2 ML VIAL ONE (09:35)
[2021-09-12] MEDS ORDERED: LIDOCAINE 2% INJ 20 MG/ML (2 ML VIAL) ONE (09:35)
--- NOTE | 2021-09-12 10:11 | P.EPPROC ---
- EP Procedure Note Electrophysiology Procedure Note: Procedures Defibrillation level testing Single-chamber [employer] ICD interrogation with reprogramming Indication for procedure Severe cardio myopathy with a high DFTs @ 31 J in the past Details Cinefluoroscopy of the lead performed Single coil lead in RV apex, screw-in No fractures or breaks R waves greater than 11 mV Threshold 0.9 V at 0.4 ms Normal pacing impedance is Under conscious sedation ICD was reprogrammed Ventricular fibrillation was induced and detected with 1 dropouts at nominal sensitivity Reverse polarity Successful defibrillation 21 J No post shock noise Charge time of 4.3 seconds Shocking impedance 73 ohms Device was reprogrammed around the MADIT RIT First cardioversion 21 J first defibrillation 41 J Appropriate antitachycardia pacing cardioversion and defibrillation Sensitivity at nominal settings Impression Normal fluoroscopy of the leads Normal device function Improvement in DFT to 21 J or below
--- NOTE | 2021-09-12 20:06 | P.HPCAR ---
History of Present Illness This is Dr. Montoya dictating an H/P on this patient The patient was interviewed and examined IMPRESSION / ASSESSMENT: Ischemic cardio myopathy Multivessel CAD status post stenting Hypertension Dyslipidemia Morbid obesity High DFT of 31 J Single-chamber [employer] ICD PLAN: Lead fluoroscopy ICD interrogation with defibrillation level testing HPI Patient is doing well from a chronic standpoint. He has a history of CAD and ischemic Single chamber ICD He denies any chest discomfort no dizziness lightheadedness no palpitations no ICD therapies He is on guideline directed medical treatment and follow-up with Dr. Orlando ROS: No fever chills or rigors, no cough, phlegm or expectoration, no nausea, vomiting or diarrhea, no hematuria, dysuria, no musculoskeletal complaints, no strokes or seizures, no skin lesions. EXAMINATION: On examination is afebrile 97.1F pulse rate in the 90s respirations normal No JVD Clear lungs Normal heart sounds no murmurs Morbid obesity REVIEW OF LABS, ECG & MEDICAL DATA Medication list includes Aldactone aspirin atorvastatin insulin ENTRESTO Lasix metoprolol succinate Sodium 139 potassium 3.8 (21 creatinine 1.1 Glucose 236 9 GFR greater than 90 Physical Exam Vitals: Vital Signs Temp Pulse Resp BP Pulse Ox 09/12/21 08:48 97.1 F L 98 18 136/86 100 Intake and Output 09/12/21 09/12/21 09/12/21 06:59 14:59 22:59 Intake Total 250 Balance 250 Intake: IV 250 Other: Weight 142.9 kg Past Medical History Past Medical History: Coronary Artery Disease (CAD), Chest Pain / Angina, Heart Failure, Diabetes Mellitus, Hyperlipidemia, Hypertension, Myocardial Infarction (VT), Sleep Apnea/CPAP/BIPAP, Syncope Additional Past Medical History / Comment(s): CARDIAC HISTORY PER DR. MONTOYA. AICD. IDDM type II. Neuropathy bilateral feet. 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 Migraines. Chronic back pain. Last Myocardial Infarction Date:: 2015 History of Any Multi-Drug Resistant Organisms: None Reported Past Surgical History: AICD, Heart Catheterization, Heart Catheterization With Stent Additional Past Surgical History / Comment(s): 10/27/12 AICD, DFTs, PCI with 2 stents Past Anesthesia/Blood Transfusion Reactions: No Reported Reaction Date of Last Stent Placement:: 02/03/16 Type of Cardiac Device: AICD Device Placement Date:: 2013 Past Psychological History: Anxiety, Depression Additional Psychological History / Comment(s): Pt resides with his girlfriend Smoking Status: Former smoker Past Alcohol Use History: None Reported Additional Past Alcohol Use History / Comment(s): quit in 2019 Past Drug Use History: None Reported - Past Family History Mother Family Medical History: No Reported History Additional Family Medical History / Comment(s): Mother is healthy Brother(s) Family Medical History: Myocardial Infarction (VT) Additional Family Medical History / Comment(s): Brother of a VT at the age of 35yrs. Father Family Medical History: Liver Disease Additional Family Medical History / Comment(s): Father when pt was 19 yrs old from liver disease. He was an alcoholic. Physical Examination Vital Signs Temp Pulse Resp BP Pulse Ox 09/12/21 08:48 97.1 F L 98 18 136/86 100 Intake and Output 09/12/21 09/12/21 09/12/21 06:59 14:59 22:59 Intake Total 250 Balance 250 Intake: IV 250 Other: Weight 142.9 kg Results 09/12/21 08:55 Comprehensive Metabolic Panel 09/12/21 Range/Units 08:55 Sodium 139 (137-145) mmol/L Potassium 3.8 (3.5-5.1) mmol/L Chloride 100 (98-107) mmol/L Carbon Dioxide 26 (22-30) mmol/L BUN 21 H (9-20) mg/dL Creatinine 1.12 (0.66-1.25) mg/dL Glucose 236 H (74-99) mg/dL Calcium 9.1 (8.4-10.2) mg/dL Current Medications Generic Name Dose Route Start Last Admin Trade Name Freq PRN Reason Stop Dose Admin Sodium Chloride 1,000 mls @ 20 mls/hr 09/12/21 06:29 Saline 0.9% IV 10/12/21 06:30 .Q24H KSENIA Insulin Aspart 0 unit 09/12/21 08:56 09/12/21 08:57 Insulin Aspart (Novolog) 100 Unit/Ml Vial SQ 10/12/21 08:57 3 unit ACHS KSENIA Administration Protocol Intake and Output 09/12/21 09/12/21 09/12/21 06:59 14:59 22:59 Intake Total 250 Balance 250 Intake: IV 250 Other: Weight 142.9 kg Patient Weight 09/13/21 06:59 Weight 142.9 kg 09/12/21 08:55
[2021-09-12 20:10] VITALS: RESP 16
[2021-09-12 20:16] VITALS: BP 145/72; PULSE 94
== END 2021-09-12 11:10 | disposition home or self-care (01) ==
LOC: CATHEP 08:31
PROVIDERS: ATTEND Internal Medicine Clinical Cardiac Electrophysiology
DX: G72.9 Myopathy, unspecified (principal); E11.40 Type 2 diabetes mellitus with diabetic neuropathy, unspecified; E66.01 Morbid (severe) obesity due to excess calories; E78.5 Hyperlipidemia, unspecified; G47.33 Obstructive sleep apnea (adult) (pediatric); I11.0 Hypertensive heart disease with heart failure; I25.10 Atherosclerotic heart disease of native coronary artery without angina pectoris; I25.2 Old myocardial infarction; I25.5 Ischemic cardiomyopathy; I50.9 Heart failure, unspecified; Z45.02 Encounter for adjustment and management of automatic implantable cardiac defibrillator; Z79.4 Long term (current) use of insulin; Z82.49 Family history of ischemic heart disease and other diseases of the circulatory system; Z87.891 Personal history of nicotine dependence; Z95.5 Presence of coronary angioplasty implant and graft; Z20.822 Contact with and (suspected) exposure to COVID-19
CPT/HCPCS: 93642; 80048; 87635; J2250; J2704; J2001

== ENCOUNTER 2021-10-12 15:28 | Observation (INO) | payer OTHER ==
[2021-10-12 17:46] LABS: Basophils # (A) 0.3 k/uL (0-0.2); Basophils % (A) 3 %; Eosinophils # (A) 0.2 k/uL (0-0.7); Eosinophils % (A) 2 %; HCT 53.1 % (39.0-53.0); HGB 17.9 gm/dL (13.0-17.5); Lymphocytes # (A) 2.1 k/uL (1.0-4.8); Lymphocytes % (A) 20 %; MCH 28.7 pg (25.0-35.0); MCHC 33.7 g/dL (31.0-37.0); Mean Platelet Volume 7.8; Monocytes # (A) 0.7 k/uL (0-1.0); Monocytes % (A) 7 %; Neutrophils # (A) 6.9 k/uL (1.3-7.7); Neutrophils % (A) 67 %; Platelet Count 246 k/uL (150-450); RBC 6.24 m/uL (4.30-5.90); RDW 13.6 % (11.5-15.5); WBC 10.3 k/uL (3.8-10.6)
[2021-10-12 18:00] LABS: Partial Thromboplastin Time 23.7 sec (22.0-30.0); Prothrombin Time 10.4 sec (9.0-12.0)
[2021-10-12 18:02] LABS: ALT 24 U/L (4-49); AST 23 U/L (17-59); African American GFR (CKD) >90 (>60 ml/min/1.73 sqM); Albumin 4.7 g/dL (3.5-5.0); Alkaline Phosphatase 118 U/L (38-126); Anion Gap 16 mmol/L; Blood Urea Nitrogen 21 mg/dL (9-20); Calcium 9.2 mg/dL (8.4-10.2); Carbon Dioxide 21 mmol/L (22-30); Chloride 102 mmol/L (98-107); Glucose 176 mg/dL (74-99); Magnesium 1.7 mg/dL (1.6-2.3); Non-African American GFR(CKD) 81 (>60 ml/min/1.73 sqM); Potassium 4.1 mmol/L (3.5-5.1); Sodium 139 mmol/L (137-145); Total Bilirubin 1.4 mg/dL (0.2-1.3); Total Protein 7.6 g/dL (6.3-8.2)
--- NOTE | 2021-10-12 18:23 | XR ---
EXAMINATION TYPE: XR chest 2V DATE OF EXAM: 10/12/2021 6:04 PM COMPARISON: None 07/13/2021 TECHNIQUE: XR chest 2V Frontal and lateral views of the chest. CLINICAL INDICATION:Male, 41 years old with history of Chest Pain; FINDINGS: Lungs/Pleura: There is no evidence of pleural effusion, focal consolidation, or pneumothorax. Pulmonary vascularity: Unremarkable. Heart/mediastinum: Cardiomediastinal silhouette is unremarkable. Single-lead cardiac conduction devic e overlying the left hemithorax with lead projecting over the right ventricle. Musculoskeletal: No acute osseous pathology. IMPRESSION: No acute cardiopulmonary disease/process.
[2021-10-12] MEDS ORDERED: MORPHINE SULFATE 4 MG/ML SYRINGE IV STA (22:21)
[2021-10-12] MEDS ORDERED: ONDANSETRON 4 MG/2 ML VIAL IVP STA (22:21)
[2021-10-12] MEDS ORDERED: NITROGLYCERIN OINT 1 INCH/GM PACKET TOPICAL STA (22:23)
--- NOTE | 2021-10-12 22:23 | ED ---
Chest Pain HPI - General Chief Complaint: Chest Pain Stated Complaint: Chest pain,DEANNA Time Seen by Provider: 10/12/21 22:09 Source: patient, RN notes reviewed Mode of arrival: wheelchair Limitations: no limitations - History of Present Illness Initial Comments: This is a pleasant 41-year-old male with a history of cardiovascular disease. Patient has previously had cardiac stent placement. He states most recently in April of this year. Patient also had an electrophysiology study done recently. Patient has an implanted cardiac defibrillator. Patient states that yesterday he started feeling some tightness in his chest and then sharp pains in his left chest. Patient states the pain seems to be a bit better after he took nitroglycerin today. However to still present. No headache, no fever or chills, no changes in vision or hearing, no sore throat or difficulty with speech, no neck pain, no shortness of breath, no abdominal pain, no nausea or vomiting, no changes in urination or bowel movements, no numbness or tingling, no extremity pain, no skin rashes or lesions. MD Complaint: chest pain - Related Data Home Medications Medication Instructions Recorded Confirmed metFORMIN HCL [Glucophage] 1,000 mg PO QAM 06/14/19 09/12/21 Furosemide [Lasix] 80 mg PO QAM 07/25/20 09/12/21 HYDROcodone/APAP 5-325MG [[place] 1 tab PO Q6H PRN 03/05/21 09/12/21 5-325] Sacubitril/Valsartan [Entresto 24 1 tab PO BID 03/05/21 09/12/21 mg-26 mg Tablet] Albuterol Sulfate [Proair Hfa] 2 puff INHALATION RT-Q6H PRN 03/17/21 09/12/21 Dulaglutide [Trulicity] 4.5 mg SQ WE 09/11/21 09/12/21 Insulin NPH Hum/Reg Insulin Hm 40 unit SQ QAM 09/11/21 09/12/21 [humuLIN 70/30 Kwikpen] Metoprolol Succinate (ER) [Toprol 100 mg PO QAM 09/11/21 09/12/21 XL] Spironolactone [Aldactone] 25 mg PO QAM 09/11/21 09/12/21 Previous Rx's Medication Instructions Recorded Ticagrelor [Brilinta] 90 mg PO BID 30 Days #60 tab 04/28/21 Aspirin 81 mg PO DAILY #30 07/15/21 Atorvastatin [Lipitor] 80 mg PO HS #0 07/15/21 Nitroglycerin Sl Tabs [Nitrostat] 0.4 mg SUBLINGUAL Q5M PRN #30 tab 07/15/21 Allergies Allergy/AdvReac Type Severity Reaction Status Date / Time Penicillins Allergy Unknown Verified 10/12/21 17:27 Childhood Review of Systems ROS Statement: Those systems with pertinent positive or pertinent negative responses have been documented in the HPI. ROS Other: All systems not noted in ROS Statement are negative. EKG Findings - EKG Comments: EKG Findings:: EKG done at 3:50 PM and read by the ED attending physician reveals sinus tachycardia with a rate of 131. Moderate intraventricular conduction delay with a QRS duration of 122 ms. [place] is undetermined. [place] interval 206 ms. Remainder of the intervals are normal. No evidence of significant ST elevation or ST depression. Past Medical History Past Medical History: Coronary Artery Disease (CAD), Chest Pain / Angina, Heart Failure, Diabetes Mellitus, Hyperlipidemia, Hypertension, Myocardial Infarction ([place]), Sleep Apnea/CPAP/BIPAP, Syncope Additional Past Medical History / Comment(s): CARDIAC HISTORY PER DR. HORAN. AICD. IDDM type II. Neuropathy bilateral feet. 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 Migraines. Chronic back pain. Last Myocardial Infarction Date:: 2015 History of Any Multi-Drug Resistant Organisms: None Reported Past Surgical History: AICD, Heart Catheterization, Heart Catheterization With Stent Additional Past Surgical History / Comment(s): 10/27/12 AICD, DFTs, PCI with 2 stents Past Anesthesia/Blood Transfusion Reactions: No Reported Reaction Date of Last Stent Placement:: 02/03/16 Type of Cardiac Device: AICD Device Placement Date:: 2012 Past Psychological History: Anxiety, Depression Smoking Status: Former smoker Past Alcohol Use History: None Reported Past Drug Use History: None Reported - Past Family History Mother Family Medical History: No Reported History Additional Family Medical History / Comment(s): Mother is healthy Brother(s) Family Medical History: Myocardial Infarction ([place]) Additional Family Medical History / Comment(s): Brother of a [place] at the age of 35yrs. Father Family Medical History: Liver Disease Additional Family Medical History / Comment(s): Father when pt was 19 yrs old from liver disease. He was an alcoholic. General Exam Limitations: no limitations General appearance: obese Head exam: Present: atraumatic, normocephalic, normal inspection Eye exam: Present: normal appearance, PERRL, EOMI. Absent: scleral icterus, conjunctival injection, periorbital swelling ENT exam: Present: normal exam, mucous membranes moist Neck exam: Present: normal inspection, full ROM. Absent: tenderness, meningismus, lymphadenopathy Respiratory exam: Present: normal lung sounds bilaterally. Absent: respiratory distress, wheezes, rales, rhonchi, stridor, chest wall tenderness, accessory muscle use Cardiovascular Exam: Present: regular rate, normal rhythm, normal heart sounds. Absent: systolic murmur, diastolic murmur, rubs, gallop, clicks GI/Abdominal exam: Present: soft, normal bowel sounds. Absent: distended, tenderness, guarding, rebound, rigid Extremities exam: Present: normal inspection, full ROM, normal capillary refill. Absent: tenderness, pedal edema, joint swelling, calf tenderness Back exam: Present: normal inspection Neurological exam: Present: alert, oriented X3, CN II-XII intact Psychiatric exam: Present: normal affect, normal mood Skin exam: Present: warm, dry, intact, normal color. Absent: rash Course Vital Signs 10/12/21 17:26 Temperature 98.6 F Pulse Rate 67 Respiratory 18 Rate Blood Pressure 108/79 O2 Sat by Pulse 99 Oximetry - Reevaluation(s) Reevaluation #1: 10/12/21 23:37 Medical record is reviewed Symptoms improved after the pain medication and 1/2 inch of nitroglycerin ointment. Patient is informed of results and questions answered Patient in no distress - Consultations Consultation #1: Case discussed in detail with the patient's primary care physician who accepts admission of the patient for observation and cardiology consultation Disposition Clinical Impression: Sinus tachycardia, Chest pain Disposition: ADMITTED IP TO THIS [facility] Condition: Stable Is patient prescribed a controlled substance at d/c from ED?: No Time of Disposition: 23:57 Decision to Admit Reason: Admit from EC Decision Time: 23:57
[2021-10-12] MEDS ORDERED: ASPIRIN 81 MG PO STA (23:38)
[2021-10-12] MEDS ORDERED: ONDANSETRON 4 MG/2 ML VIAL IVP PRN (23:57)
[2021-10-12] MEDS ORDERED: NALOXONE 0.4 MG/ML 1 ML VIAL IV PRN (23:57)
[2021-10-12] MEDS ORDERED: ACETAMINOPHEN TAB 325 MG TAB PO PRN (23:57)
[2021-10-13] MEDS ORDERED: HYDROcodone/APAP 5-325MG 1 EACH TAB PO PRN (00:04)
[2021-10-13] MEDS ORDERED: ALBUTEROL NEBULIZED 2.5 MG/3 ML INHALATION PRN (00:04)
[2021-10-13] MEDS: HEPARIN SODIUM,PORCINE/PF 5,000 UNIT/0.5 ML SYRINGE SQ SCH ×2 (01:14→08:31)
[2021-10-13] MEDS: MORPHINE SULFATE 4 MG/ML SYRINGE IV PRN ×2 (05:11→09:52)
[2021-10-13 07:55] LABS: Glucose,Whole Blood 151 mg/dL (70-110)
[2021-10-13] MEDS: INSULIN ASPART (NovoLOG) 100 UNIT/ML VIAL SQ SCH ×2 (08:30→13:08)
[2021-10-13] MEDS: METOPROLOL SUCCINATE (ER) 100 MG TAB.ER.24H PO SCH ×2 (08:32→08:36)
[2021-10-13] MEDS ORDERED: NON FORMULARY DRUG (Empagliflozin [Jardiance] 25 MG Tablet) PO SCH (09:00)
[2021-10-13] MEDS ORDERED: EZETIMIBE 10 MG TAB PO SCH (09:00)
[2021-10-13] MEDS ORDERED: SPIRONOLACTONE 25 MG TAB PO SCH (09:00)
[2021-10-13] MEDS ORDERED: ASPIRIN 81 MG PO SCH (09:00)
[2021-10-13] MEDS ORDERED: FUROSEMIDE 80 MG TAB PO SCH (09:00)
[2021-10-13] MEDS ORDERED: TICAGRELOR 90 MG TAB PO SCH (09:00)
[2021-10-13] MEDS ORDERED: ATORVASTATIN 80 MG TAB PO SCH ×2 (09:00→21:00)
[2021-10-13] MEDS ORDERED: SACUBITRIL/VALSARTAN 24 MG-26 MG TABLET PO SCH (09:30)
--- NOTE | 2021-10-13 09:49 | P.CRDCN ---
History of Present Illness History of present illness: This is a pleasant 41-year-old male past medical history significant for coronary artery disease status post PCI RCA 2015, first diagonal branch LAD 2019, proximal RCA 04/2021, and balloon angioplasty of mid RCA 04/2021, ischemic cardiomyopathy status post AICD, hypertension, type 2 diabetes mellitus, dyslipidemia and chronic heart failure with reduced ejection fraction. He follows in the office with Dr Hernandez. We have been asked to see in consultation for chest pain. Patient presents to the emergency department with complaints of midsternal chest discomfort and epigastric pain. He describes it as stabbing. Patient states his pain started on Saturday, it has been constant for 3 days. No specific aggravating or alleviating factors. It is located in the center, midsternal area, it is non-radiating, non-exertional. He had no associated shortness of breath, diaphoresis, palpitations, nausea, vomiting, lightheadedness, dizziness. He denies any symptoms of orthopnea or PND. He de nies any tobacco use. DIAGNOSTICS * EKG reveals sinus tachycardia, heart rate 131, no acute ischemia noted on EKG. * Telemetry tracings at bedside indicate sinus rhythm with heart rate in the 90s * Chest xray negative for an acute cardiopulmonary process. * Laboratory reviewed, troponin negative 4, WBC 10.3, hemoglobin 17.9, platelets 246, d-dimer negative, proBNP 96, sodium 139, potassium 4.1, BUN 21, serum creatinine 1.1, magnesium 1.7 * Current home medications include entresto 24/26 mg BID, aspirin 81 mg daily, atorvastatin 80 mg daily, Brilinta 90mg BID, Toprol 100 mg daily and Aldactone 25 mg daily, Jardiance 25mg daily, Metformin, PRN Nitro * Most recent echocardiogram obtained 04/2021 revealed EF of 2025%, global hypokinesis, mild tricuspid regurgitation * Most recent cardiac catheterization 04/28/2021 RCA proximally has a lesion appeared to be in the range of 60-70%, FFR was performed and came in to be ischemic, mid RCA has in-stent restenosis appeared to be 70%, RCA distally has mild disease only and to PDA and PLV branches.. Had mild to moderate diffuse disease, left main is calcified left main with mild disease only. Left circumflex appeared to be chronically occluded. Proximal LAD has mild disease only. Mid LAD is stented just distal to the bifurcation of the large diagonal branch. LAD distally appeared to be subtotally occluded and seems to be unchanged compared to before. Patient underwent successful stenting of the proximal RCA and successful balloon angioplasty of the mid RCA REVIEW OF SYSTEMS At the time of my exam: CONSTITUTIONAL: Denies fever or chills. CARDIOVASCULAR: + chest pain, Denies shortness of breath, orthopnea, PND or palpitations. RESPIRATORY: Denies cough. GASTROINTESTINAL: +epigastric pain Denies diarrhea, constipation, nausea or vom iting. MUSCULOSKELETAL: Denies myalgias. NEUROLOGIC: Denies numbness, tingling, headache or weakness. ENDOCRINE: Denies fatigue, weight change, polydipsia or polyurina. GENITOURINARY: Denies burning, hematuria or urgency with micturation. HEMATOLOGIC: Denies history of anemia or bleeding. PHYSICAL EXAMINATION Blood pressure 104/76, heart rate 86, afebrile, oxygen saturations 90% on room air CONSTITUTIONAL: No apparent distress. HEENT: Head is normocephalic. Pupils are equal, round. Sclerae anicteric. Mucous membranes of the mouth are moist. No JVD. No carotid bruit. CHEST EXAMINATION: Lungs are clear to auscultation. No chest wall tenderness is noted on palpation or with deep breathing. HEART EXAMINATION: Regular rate and rhythm. S1, S2 heard. Systolic murmur at apex ABDOMEN: Soft, nontender. EXTREMITIES: 2+ peripheral pulses, no lower extremity edema and no calf tenderness. NEUROLOGIC EXAMINATION: Patient is awake, alert and oriented x3. ASSESSMENT Chest pain, acute coronary syndrome has been ruled out, does not appear to be cardiac in etiology Epigastric pain History of coronary artery disease status post PCI RCA 2015, first diagonal branch LAD 2019, proximal RCA 04/2021, balloon angioplasty of mid RCA 04/2021, chronic total occluded left circumflex Chronic heart failure with reduced ejection fraction, clinically euvolemic Ischemic cardiomyopathy status post AICD placement 2012 ([place]) Hypertension Dyslipidemia Diabetes mellitus, type 2 PLAN Recommend adding Zetia 10mg daily, patient with Triglycerides 599 in 06/2021 Recommend recheck Hemoglobin A1C last was 11.2 in [facility] Recommend diabetes control Recommend continuing all home cardiac medications An acute coronary event has been ruled out with no EKG evidence of ischemia and negative cardiac enzymes. No further inpatient workup from a cardiology perspective, follow up with Dr. Hernandez in 1 week, patient with appointment on 10/27/2021. Nurse Practitioner note has been reviewed, I agree with a documented findings and plan of care. Patient was seen and examined. Past Medical History Past Medical History: Coronary Artery Disease (CAD), Chest Pain / Angina, Heart Failure, Diabetes Mellitus, Hyperlipidemia, Hypertension, Myocardial Infarction ([place]), Sleep Apnea/CPAP/BIPAP, Syncope Additional Past Medical History / Comment(s): CARDIAC HISTORY PER DR. HORAN. AICD. IDDM type II. Neuropathy bilateral feet. 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 Migraines. Chronic back pain. Last Myocardial Infarction Date:: 2015 History of Any Multi-Drug Resistant Organisms: None Reported Past Surgical History: AICD, Heart Catheterization, Heart Catheterization With Stent Additional Past Surgical History / Comment(s): 10/27/12 AICD, DFTs, PCI with 2 stents Past Anesthesia/Blood Transfusion Reactions: No Reported Reaction Date of Last Stent Placement:: 02/03/16 Type of Cardiac Device: AICD Device Placement Date:: 2012 Past Psychological History: Anxiety, Depression Smoking Status: Former smoker Past Alcohol Use History: None Reported Past Drug Use History: None Reported - Past Family History Mother Family Medical History: No Reported History Additional Family Medical History / Comment(s): Mother is healthy Brother(s) Family Medical History: Myocardial Infarction ([place]) Additional Family Medical History / Comment(s): Brother of a [place] at the age of 35yrs. Father Family Medical History: Liver Disease Additional Family Medical History / Comment(s): Father when pt was 19 yrs old from liver disease. He was an alcoholic. Medications and Allergies Home Medications Medication Instructions Recorded Confirmed Type metFORMIN HCL [Glucophage] 1,000 mg PO DAILY 06/14/19 10/13/21 History Furosemide [Lasix] 80 mg PO DAILY 07/25/20 10/13/21 History HYDROcodone/APAP 5-325MG [[place] 1 tab PO Q6H PRN 03/05/21 10/13/21 History 5-325] Sacubitril/Valsartan [Entresto 24 1 tab PO BID 03/05/21 10/13/21 History mg-26 mg Tablet] Ticagrelor [Brilinta] 90 mg PO BID 30 Days #60 tab 04/28/21 10/13/21 Rx Aspirin 81 mg PO DAILY #30 07/15/21 10/13/21 Rx Nitroglycerin Sl Tabs [Nitrostat] 0.4 mg SUBLINGUAL Q5M PRN #30 tab 07/15/21 10/13/21 Rx Dulaglutide [Trulicity] 4.5 mg SQ WE 09/11/21 10/13/21 History Insulin NPH Hum/Reg Insulin Hm 60 unit SQ DAILY 09/11/21 10/13/21 History [humuLIN 70/30 Kwikpen] Metoprolol Succinate (ER) [Toprol 100 mg PO DAILY 09/11/21 10/13/21 History XL] Spironolactone [Aldactone] 25 mg PO DAILY 09/11/21 10/13/21 History Albuterol Sulfate [Ventolin HFA] 2 puff INHALATION RT-Q6H PRN 10/13/21 10/13/21 History Atorvastatin [Lipitor] 80 mg PO DAILY 10/13/21 10/13/21 History Empagliflozin [Jardiance] 25 mg PO DAILY 10/13/21 10/13/21 History Insulin NPH Hum/Reg Insulin Hm 40 unit SQ HS 10/13/21 10/13/21 History [humuLIN 70/30 Kwikpen] Allergies Allergy/AdvReac Type Severity Reaction Status Date / Time Penicillins Allergy Unknown Verified 10/13/21 07:17 Childhood Physical Exam Vitals: Vital Signs Temp Pulse Resp BP Pulse Ox 10/12/21 17:26 98.6 F 67 18 108/79 99 Intake and Output 10/12/21 10/13/21 10/13/21 22:59 06:59 14:59 Other: Weight 143.789 kg Results 10/12/21 17:35 10/12/21 17:35 Cardiac Enzymes 10/12/21 10/12/21 10/12/21 Range/Units 17:35 17:35 23:37 AST 23 (17-59) U/L Troponin I <0.012 <0.012 (0.000-0.034) ng/mL 10/13/21 10/13/21 Range/Units 02:03 05:30 AST (17-59) U/L Troponin I <0.012 0.014 (0.000-0.034) ng/mL Coagulation 10/12/21 Range/Units 17:35 PT 10.4 (9.0-12.0) sec APTT 23.7 (22.0-30.0) sec CBC 10/12/21 Range/Units 17:35 WBC 10.3 (3.8-10.6) k/uL RBC 6.24 H (4.30-5.90) m/uL Hgb 17.9 H (13.0-17.5) gm/dL Hct 53.1 H (39.0-53.0) % Plt Count 246 (150-450) k/uL Comprehensive Metabolic Panel 10/12/21 Range/Units 17:35 Sodium 139 (137-145) mmol/L Potassium 4.1 (3.5-5.1) mmol/L Chloride 102 (98-107) mmol/L Carbon Dioxide 21 L (22-30) mmol/L BUN 21 H (9-20) mg/dL Creatinine 1.13 (0.66-1.25) mg/dL Glucose 176 H (74-99) mg/dL Calcium 9.2 (8.4-10.2) mg/dL AST 23 (17-59) U/L ALT 24 (4-49) U/L Alkaline Phosphatase 118 (38-126) U/L Total Protein 7.6 (6.3-8.2) g/dL Albumin 4.7 (3.5-5.0) g/dL Current Medications Generic Name Dose Route Start Last Admin Trade Name Freq PRN Reason Stop Dose Admin Acetaminophen 650 mg 10/12/21 23:57 Acetaminophen Tab 325 Mg Tab PO Q6HR PRN Mild Pain or Fever > 100.5 Hydrocodone Bitart/Acetaminophen 1 each 10/13/21 00:04 Hydrocodone/Apap 5-325mg 1 Each Tab PO Q6H PRN Pain Albuterol Sulfate 2.5 mg 10/13/21 00:04 Albuterol Nebulized 2.5 Mg/3 Ml INHALATION RT-Q6H PRN Shortness Of Breath Aspirin 81 mg 10/13/21 09:00 Aspirin 81 Mg PO DAILY KSENIA Atorvastatin Calcium 80 mg 10/13/21 21:00 Atorvastatin 80 Mg Tab PO HS KSENIA Heparin Sodium (Porcine) 5,000 unit 10/13/21 00:00 10/13/21 01:14 Heparin Sodium,Porcine/Pf 5,000 Unit/0.5 Ml Syringe SQ Not Given Q8HR [facility] Insulin Aspart 0 unit 10/13/21 07:30 Insulin Aspart (Novolog) 100 Unit/Ml Vial SQ ACHS [facility] Protocol Metoprolol Succinate 100 mg 10/13/21 09:00 Metoprolol Succinate (Er) 100 Mg Tab.Er.24h PO QAM KSENIA Morphine Sulfate 4 mg 10/12/21 23:57 10/13/21 05:11 Morphine Sulfate 4 Mg/Ml Syringe IV 4 mg Q4HR PRN Administration Severe Pain Naloxone HCl 0.2 mg 10/12/21 23:57 Naloxone 0.4 Mg/Ml 1 Ml Vial IV Q2M PRN Opioid Reversal Ondansetron HCl 4 mg 10/12/21 23:57 Ondansetron 4 Mg/2 Ml Vial IVP Q8HR PRN Nausea And Vomiting Ticagrelor 90 mg 10/13/21 09:00 Ticagrelor 90 Mg Tab PO BID [facility] Intake and Output 10/12/21 10/13/21 10/13/21 22:59 06:59 14:59 Other: Weight 143.789 kg 10/12/21 17:35 10/12/21 17:35
[2021-10-13 11:42] VITALS: TEMP 97.6
[2021-10-13 11:54] LABS: Glucose,Whole Blood 240 mg/dL (70-110)
[2021-10-13 13:59] VITALS: BP 119/77; PULSE 97; RESP 18
--- NOTE | 2021-10-13 18:23 | HP ---
HISTORY AND PHYSICAL CHIEF COMPLAINT: Chest pain. HISTORY OF PRESENT ILLNESS: This is another admission for this 41-year-old gentleman who is in and out of the hospital frequently and has severe atherosclerotic cardiac disease with cardiomyopathy, congestive heart failure, cardiac arrhythmias and diabetes. The patient came into the emergency room complaining of chest pain. EKG and enzymes are normal, but he was admitted for observation. He has had no diaphoresis, neurologic problems, orthopnea, PND, abdominal pain, nausea, vomiting, etc. Past medical history, family history and personal and social histories were all otherwise unremarkable and unchanged from his recent admitting and discharge summary. He has numerous problems including sleep apnea, depression, bilateral Charcot feet in addition to his heart disease. He is on numerous medications. HE IS ALLERGIC TO PENICILLIN. He does continue to smoke. PHYSICAL EXAMINATION: Blood pressure is 158/92 with a pulse of 80, respirations of 32, and he is afebrile. In general he appeared to be overweight, in no acute distress. Skin color is normal skin is warm, dry. Lymph nodes not enlarged. Head, ears, eyes, nose, mouth and throat are normal. Neck veins are not distended. Thyroid is not enlarged. Chest is clear. Cardiac exam demonstrates sinus rhythm and no murmurs or extra sounds. Abdomen is protuberant, soft and nontender without visceromegaly masses. Bowel sounds are present. Extremities are normal except for his feet. Neurologically he is intact. ASSESSMENT: He is admitted to the hospital with diagnoses: 1. Chest pain. 2. Angina pectoris. 3. History of coronary artery disease. 4. Atherosclerotic cardiomyopathy. 5. . 6. Poorly controlled insulin dependent diabetes mellitus. 7. Nicotine abuse. 8. Charcot feet. PLAN: 1. Bedrest. 2. IV fluids. 3. Serial EKGs and enzymes. 4. Cardiology consult. MMODL / IJN: [id number] /
--- NOTE | 2021-10-13 18:26 | DS ---
DISCHARGE SUMMARY CHIEF COMPLAINT: Chest pain. HISTORY OF PRESENT ILLNESS AND PHYSICAL EXAMINATION: Details of this man's history and physical can be found in the initial workup. LABORATORY STUDIES: While he was in the hospital he had laboratory studies, details of which can be found in the laboratory section of his chart. COURSE IN THE HOSPITAL: After admission he was placed on bedrest and started on intravenous fluids. Serial cardiac enzymes were normal. He was seen by Cardiology and it was felt that he could be discharged. He will go home on his usual activity, diet and medications, and we will follow him up in several days. FINAL DIAGNOSIS: 1. Unstable angina pectoris. 2. Coronary artery disease. 3. Atherosclerotic cardiomyopathy. 4. Diabetes mellitus. 5. Nicotine abuse. 6. Charcot feet. OPERATIONS: None. CONSULTATION: Cardiology. He is improved. MMODL / IJN: [id number] /
== END 2021-10-13 14:58 | disposition home or self-care (01) ==
LOC: EC 15:28 → 6NMEDSUR 10-13 00:05
PROVIDERS: ADMIT Family Medicine; ATTEND Family Medicine
DX: I25.110 Atherosclerotic heart disease of native coronary artery with unstable angina pectoris (principal); I11.0 Hypertensive heart disease with heart failure; I50.22 Chronic systolic (congestive) heart failure; E78.5 Hyperlipidemia, unspecified; I25.2 Old myocardial infarction; I25.5 Ischemic cardiomyopathy; G47.33 Obstructive sleep apnea (adult) (pediatric); G43.909 Migraine, unspecified, not intractable, without status migrainosus; G89.29 Other chronic pain; M54.9 Dorsalgia, unspecified; F32.A Depression, unspecified; F41.9 Anxiety disorder, unspecified; E11.40 Type 2 diabetes mellitus with diabetic neuropathy, unspecified; G62.9 Polyneuropathy, unspecified; R06.00 Dyspnea, unspecified; R00.0 Tachycardia, unspecified; R10.13 Epigastric pain; I25.82 Chronic total occlusion of coronary artery; E11.610 Type 2 diabetes mellitus with diabetic neuropathic arthropathy; A52.16 Charcot's arthropathy (tabetic); E66.9 Obesity, unspecified; Z68.41 Body mass index [BMI] 40.0-44.9, adult; F17.200 Nicotine dependence, unspecified, uncomplicated; Z95.5 Presence of coronary angioplasty implant and graft; Z95.810 Presence of automatic (implantable) cardiac defibrillator; Z79.4 Long term (current) use of insulin; Z79.84 Long term (current) use of oral hypoglycemic drugs; Z79.82 Long term (current) use of aspirin; Z79.02 Long term (current) use of antithrombotics/antiplatelets; Z79.899 Other long term (current) drug therapy; Z88.0 Allergy status to penicillin; Z71.9 Counseling, unspecified; Z82.49 Family history of ischemic heart disease and other diseases of the circulatory system; Z81.1 Family history of alcohol abuse and dependence; Z83.79 Family history of other diseases of the digestive system
CPT/HCPCS: 96376; 96372; 96374; 99285; 36415; 93005; 85379; 83880; 80053; 83735; 84484 ×2; 85025; 85610; 85730; 83036; 71046; G0378; J2270 ×2; J1644

== ENCOUNTER 2021-10-19 18:00 | Emergency (ER) | payer OTHER ==
[2021-10-19 18:10] VITALS: RESP 18; TEMP 98.3
[2021-10-19 18:45] LABS: Basophils # (A) 0.2 k/uL (0-0.2); Basophils % (A) 2 %; Eosinophils # (A) 0.3 k/uL (0-0.7); Eosinophils % (A) 3 %; HCT 50.9 % (39.0-53.0); HGB 17.7 gm/dL (13.0-17.5); Lymphocytes # (A) 2.1 k/uL (1.0-4.8); Lymphocytes % (A) 22 %; MCH 29.5 pg (25.0-35.0); MCHC 34.7 g/dL (31.0-37.0); MCV 84.9 fL (80.0-100.0); Mean Platelet Volume 7.6; Monocytes # (A) 0.6 k/uL (0-1.0); Monocytes % (A) 6 %; Neutrophils # (A) 6.3 k/uL (1.3-7.7); Neutrophils % (A) 66 %; Platelet Count 227 k/uL (150-450); RDW 13.9 % (11.5-15.5); WBC 9.6 k/uL (3.8-10.6)
[2021-10-19 18:53] LABS: ALT 28 U/L (4-49); AST 27 U/L (17-59); African American GFR (CKD) >90 (>60 ml/min/1.73 sqM); Albumin 4.7 g/dL (3.5-5.0); Alkaline Phosphatase 140 U/L (38-126); Anion Gap 16 mmol/L; Blood Urea Nitrogen 21 mg/dL (9-20); Calcium 9.1 mg/dL (8.4-10.2); Carbon Dioxide 23 mmol/L (22-30); Chloride 101 mmol/L (98-107); Glucose 210 mg/dL (74-99); Magnesium 2.1 mg/dL (1.6-2.3); Non-African American GFR(CKD) 84 (>60 ml/min/1.73 sqM); Potassium 3.7 mmol/L (3.5-5.1); Sodium 140 mmol/L (137-145); Total Bilirubin 1.2 mg/dL (0.2-1.3); Total Protein 7.8 g/dL (6.3-8.2)
[2021-10-19 19:00] LABS: INR 0.9 (<1.2); Partial Thromboplastin Time 24.3 sec (22.0-30.0); Prothrombin Time 10.3 sec (9.0-12.0)
[2021-10-19] MEDS ORDERED: SODIUM CHLORIDE 0.9% 500 ML 500 ML IV ONE (19:16)
[2021-10-19] MEDS ORDERED: METOPROLOL TARTRATE 50 MG TAB PO STA (19:16)
--- NOTE | 2021-10-19 19:30 | ED ---
General Adult HPI - General Chief complaint: Chest Pain Stated complaint: Chest pain Time Seen by Provider: 10/19/21 18:13 Source: patient, RN notes reviewed, old records reviewed Mode of arrival: ambulatory Limitations: no limitations - History of Present Illness Initial comments: 41-year-old male history of coronary artery disease, diabetes, ischemic cardiomyopathy status post defibrillator presents for outpatient lab draw. Patient was sent in by his primary care provider for lab test, troponin. Patient was recently admitted 6 days prior with chest pain and tachycardia. He received serial cardiac enzymes, he was evaluated by cardiology in his chest pain was not felt to be cardiac in nature. He was subsequently discharged and had an outpatient follow-up appointment today where he did report ongoing chest pain since prior to his previous admission. The primary care provider had ordered an outpatient troponin test but the patient was unable to get this drawn because the outpatient lab had been closed. - Related Data Home Medications Medication Instructions Recorded Confirmed metFORMIN HCL [Glucophage] 1,000 mg PO DAILY 06/14/19 10/19/21 Furosemide [Lasix] 80 mg PO DAILY 07/25/20 10/19/21 HYDROcodone/APAP 5-325MG [[place] 1 tab PO Q6H PRN 03/05/21 10/19/21 5-325] Sacubitril/Valsartan [Entresto 24 1 tab PO BID 03/05/21 10/19/21 mg-26 mg Tablet] Dulaglutide [Trulicity] 4.5 mg SQ WE 09/11/21 10/19/21 Insulin NPH Hum/Reg Insulin Hm 60 unit SQ DAILY 09/11/21 10/19/21 [humuLIN 70/30 Kwikpen] Metoprolol Succinate (ER) [Toprol 100 mg PO DAILY 09/11/21 10/19/21 XL] Spironolactone [Aldactone] 25 mg PO DAILY 09/11/21 10/19/21 Albuterol Sulfate [Ventolin HFA] 2 puff INHALATION RT-Q6H PRN 10/13/21 10/19/21 Atorvastatin [Lipitor] 80 mg PO DAILY 10/13/21 10/19/21 Empagliflozin [Jardiance] 25 mg PO DAILY 10/13/21 10/19/21 Insulin NPH Hum/Reg Insulin Hm 40 unit SQ HS 10/13/21 10/19/21 [humuLIN 70/30 Kwikpen] Previous Rx's Medication Instructions Recorded Ticagrelor [Brilinta] 90 mg PO BID 30 Days #60 tab 04/28/21 Aspirin 81 mg PO DAILY #30 07/15/21 Nitroglycerin Sl Tabs [Nitrostat] 0.4 mg SUBLINGUAL Q5M PRN #30 tab 07/15/21 Ezetimibe [Zetia] 10 mg PO DAILY #30 tab 10/13/21 Ranolazine [Ranexa] 500 mg PO BID 7 Days #14 tab 10/19/21 Allergies Allergy/AdvReac Type Severity Reaction Status Date / Time Penicillins Allergy Unknown Verified 10/19/21 19:15 Childhood Review of Systems ROS Statement: Those systems with pertinent positive or pertinent negative responses have been documented in the HPI. ROS Other: All systems not noted in ROS Statement are negative. Past Medical History Past Medical History: Coronary Artery Disease (CAD), Chest Pain / Angina, Heart Failure, Diabetes Mellitus, Hyperlipidemia, Hypertension, Myocardial Infarction ([place]), Sleep Apnea/CPAP/BIPAP, Syncope Additional Past Medical History / Comment(s): CARDIAC HISTORY PER DR. HORAN. AICD. IDDM type II. Neuropathy bilateral feet. 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 Migraines. Chronic back pain. Last Myocardial Infarction Date:: 2015 History of Any Multi-Drug Resistant Organisms: None Reported Past Surgical History: AICD, Heart Catheterization, Heart Catheterization With Stent Additional Past Surgical History / Comment(s): 10/27/12 AICD, DFTs, PCI with 2 stents Past Anesthesia/Blood Transfusion Reactions: No Reported Reaction Date of Last Stent Placement:: 02/03/16 Type of Cardiac Device: AICD Device Placement Date:: 2012 Past Psychological History: Anxiety, Depression Smoking Status: Former smoker Past Alcohol Use History: None Reported Past Drug Use History: None Reported - Past Family History Mother Family Medical History: No Reported History Additional Family Medical History / Comment(s): Mother is healthy Brother(s) Family Medical History: Myocardial Infarction ([place]) Additional Family Medical History / Comment(s): Brother of a [place] at the age of 35yrs. Father Family Medical History: Liver Disease Additional Family Medical History / Comment(s): Father when pt was 19 yrs old from liver disease. He was an alcoholic. General Exam Limitations: no limitations General appearance: alert, in no apparent distress Head exam: Present: atraumatic, normocephalic Eye exam: Present: normal appearance, PERRL ENT exam: Present: normal exam Neck exam: Present: normal inspection. Absent: tenderness, meningismus Respiratory exam: Present: normal lung sounds bilaterally. Absent: respiratory distress, wheezes Cardiovascular Exam: Present: normal rhythm, tachycardia GI/Abdominal exam: Present: soft. Absent: distended, tenderness, guarding Extremities exam: Present: normal inspection, normal capillary refill. Absent: pedal edema, calf tenderness Neurological exam: Present: alert, oriented X3, CN II-XII intact. Absent: motor sensory deficit Psychiatric exam: Present: normal affect, normal mood Skin exam: Present: warm, dry, intact. Absent: cyanosis, diaphoretic Course Vital Signs 10/19/21 10/19/21 18:08 19:32 Temperature 98.3 F Pulse Rate 122 H 112 H Respiratory 18 18 Rate Blood Pressure 122/82 112/83 O2 Sat by Pulse 97 99 Oximetry - Reevaluation(s) Reevaluation #1: 10/19/21 19:30 Case discussed with the production staff worker Dr. Del Real, recommends dose of metoprolol and Ranexa and outpatient follow-up. Reevaluation #2: 10/19/21 21:12 Patient reevaluated, resting comfortably, no current chest pain. EKG Findings - EKG Comments: EKG Findings:: EKG: Sinus tachycardia rate of 114, there is a nonspecific interventricular conduction delay which is similar compared to prior. The MA interval is 247, QRS duration 121, QTC 414, no ST segment elevation. T waves are upright. Medical Decision Making - Medical Decision Making 21-year-old male with history of ischemic cardiomyopathy, CAD, status post AICD of presented with chief complaint of needing an outpatient lab draw blood lab was closed. He had an order for a troponin test. This was performed in the e mergency department. Additionally the patient complained of ongoing chest pain which is been consistent for several weeks. The patient does admit that he has regular chest pain issues. He was seen on an admission within the last 1 week for chest pain and had cardiology consultation is feel cardiac enzymes. Due to this recent admission I did discuss case with Dr. Del Real covering for cardiology. He recommends a dose of metoprolol and initiating Ranexa. Prescription is written for 1 week for Ranexa and the patient should contact his production staff worker Dr. Hernandez in the morning. I did repeat a second troponin should to ensure that this remains negative this remains negative in the emergency department. - Lab Data Result diagrams: 10/19/21 18:37 10/19/21 18:37 Lab Results 10/19/21 10/19/21 10/19/21 Range/Units 18:37 18:37 18:37 WBC 9.6 (3.8-10.6) k/uL RBC 6.00 H (4.30-5.90) m/uL Hgb 17.7 H (13.0-17.5) gm/dL Hct 50.9 (39.0-53.0) % MCV 84.9 (80.0-100.0) fL MCH 29.5 (25.0-35.0) pg MCHC 34.7 (31.0-37.0) g/dL RDW 13.9 (11.5-15.5) % Plt Count 227 (150-450) k/uL MPV 7.6 Neutrophils % 66 % Lymphocytes % 22 % Monocytes % 6 % Eosinophils % 3 % Basophils % 2 % Neutrophils # 6.3 (1.3-7.7) k/uL Lymphocytes # 2.1 (1.0-4.8) k/uL Monocytes # 0.6 (0-1.0) k/uL Eosinophils # 0.3 (0-0.7) k/uL Basophils # 0.2 (0-0.2) k/uL PT 10.3 (9.0-12.0) sec INR 0.9 (<1.2) APTT 24.3 (22.0-30.0) sec Sodium 140 (137-145) mmol/L Potassium 3.7 (3.5-5.1) mmol/L Chloride 101 (98-107) mmol/L Carbon Dioxide 23 (22-30) mmol/L Anion Gap 16 mmol/L BUN 21 H (9-20) mg/dL Creatinine 1.09 (0.66-1.25) mg/dL Est GFR (CKD-EPI)AfAm >90 (>60 ml/min/1.73 sqM) Est GFR (CKD-EPI)NonAf 84 (>60 ml/min/1.73 sqM) Glucose 210 H (74-99) mg/dL Calcium 9.1 (8.4-10.2) mg/dL Magnesium 2.1 (1.6-2.3) mg/dL Total Bilirubin 1.2 (0.2-1.3) mg/dL AST 27 (17-59) U/L ALT 28 (4-49) U/L Alkaline Phosphatase 140 H (38-126) U/L Troponin I (0.000-0.034) ng/mL Total Protein 7.8 (6.3-8.2) g/dL Albumin 4.7 (3.5-5.0) g/dL 10/19/21 10/19/21 Range/Units 18:37 20:00 WBC (3.8-10.6) k/uL RBC (4.30-5.90) m/uL Hgb (13.0-17.5) gm/dL Hct (39.0-53.0) % MCV (80.0-100.0) fL MCH (25.0-35.0) pg MCHC (31.0-37.0) g/dL RDW (11.5-15.5) % Plt Count (150-450) k/uL MPV Neutrophils % % Lymphocytes % % Monocytes % % Eosinophils % % Basophils % % Neutrophils # (1.3-7.7) k/uL Lymphocytes # (1.0-4.8) k/uL Monocytes # (0-1.0) k/uL Eosinophils # (0-0.7) k/uL Basophils # (0-0.2) k/uL PT (9.0-12.0) sec INR (<1.2) APTT (22.0-30.0) sec Sodium (137-145) mmol/L Potassium (3.5-5.1) mmol/L Chloride (98-107) mmol/L Carbon Dioxide (22-30) mmol/L Anion Gap mmol/L BUN (9-20) mg/dL Creatinine (0.66-1.25) mg/dL Est GFR (CKD-EPI)AfAm (>60 ml/min/1.73 sqM) Est GFR (CKD-EPI)NonAf (>60 ml/min/1.73 sqM) Glucose (74-99) mg/dL Calcium (8.4-10.2) mg/dL Magnesium (1.6-2.3) mg/dL Total Bilirubin (0.2-1.3) mg/dL AST (17-59) U/L ALT (4-49) U/L Alkaline Phosphatase (38-126) U/L Troponin I <0.012 <0.012 (0.000-0.034) ng/mL Total Protein (6.3-8.2) g/dL Albumin (3.5-5.0) g/dL Disposition Clinical Impression: Chest pain Disposition: HOME SELF-CARE Condition: Fair Instructions (If sedation given, give patient instructions): Chest Pain (ED) Prescriptions: Ranolazine [Ranexa] 500 mg PO BID 7 Days #14 tab Is patient prescribed a controlled substance at d/c from ED?: No Referrals: Amrit Dan MD [Primary Care Provider] - 1-2 days Damion Hernandez MD [STAFF PHYSICIAN] - 1-2 days Time of Disposition: 21:12
[2021-10-19] MEDS ORDERED: MORPHINE SULFATE 4 MG/ML SYRINGE IVP STA (20:34)
[2021-10-19 21:29] VITALS: BP 120/84; PULSE 98
== END 2021-10-19 21:33 | disposition home or self-care (01) ==
LOC: EC 18:00
DX: R07.9 Chest pain, unspecified (principal); I11.0 Hypertensive heart disease with heart failure; I50.9 Heart failure, unspecified; I25.2 Old myocardial infarction; I25.10 Atherosclerotic heart disease of native coronary artery without angina pectoris; E78.5 Hyperlipidemia, unspecified; E11.40 Type 2 diabetes mellitus with diabetic neuropathy, unspecified; Z88.0 Allergy status to penicillin; Z79.899 Other long term (current) drug therapy; Z79.4 Long term (current) use of insulin; Z79.84 Long term (current) use of oral hypoglycemic drugs; Z87.891 Personal history of nicotine dependence
CPT/HCPCS: 36415; 93005; 80053; 83735; 84484; 85025; 85610; 85730; 99285; 96374; J2270

== ENCOUNTER 2021-10-27 16:29 | Inpatient (IN) | payer OTHER ==
[2021-10-27] MEDS ORDERED: ACETAMINOPHEN TAB 325 MG TAB PO PRN (17:29)
[2021-10-27] MEDS ORDERED: NALOXONE 0.4 MG/ML 1 ML VIAL IV PRN (17:29)
[2021-10-27] MEDS ORDERED: NITROGLYCERIN SL TABS 0.4 MG TAB SUBLINGUAL PRN (17:31)
--- NOTE | 2021-10-27 17:33 | ED ---
General Adult HPI - General Chief complaint: Chest Pain Stated complaint: Sent by Direct Care Specialist Time Seen by Provider: 10/27/21 17:07 Source: patient, RN notes reviewed, old records reviewed Mode of arrival: ambulatory Limitations: no limitations - History of Present Illness Initial comments: 41-year-old male history of CAD, ischemic cardiomyopathy, diabetes presenting for evaluation of chest pain. Chest pain has been present throughout the past several weeks and is worse with exertion. He was admitted about 2 weeks ago and had cardiology evaluation at that time. He was seen in the emergency department by myself had serial cardiac enzymes which were negative and was discharged with close follow-up. He had been seen by his land leveler Dr. Hernandez today and was sent to the emergency department for admission for further cardiac evaluation. - Related Data Home Medications Medication Instructions Recorded Confirmed metFORMIN HCL [Glucophage] 1,000 mg PO DAILY 06/14/19 10/19/21 Furosemide [Lasix] 80 mg PO DAILY 07/25/20 10/19/21 HYDROcodone/APAP 5-325MG [[place] 1 tab PO Q6H PRN 03/05/21 10/19/21 5-325] Sacubitril/Valsartan [Entresto 24 1 tab PO BID 03/05/21 10/19/21 mg-26 mg Tablet] Dulaglutide [Trulicity] 4.5 mg SQ WE 09/11/21 10/19/21 Insulin NPH Hum/Reg Insulin Hm 60 unit SQ DAILY 09/11/21 10/19/21 [humuLIN 70/30 Kwikpen] Metoprolol Succinate (ER) [Toprol 100 mg PO DAILY 09/11/21 10/19/21 XL] Spironolactone [Aldactone] 25 mg PO DAILY 09/11/21 10/19/21 Albuterol Sulfate [Ventolin HFA] 2 puff INHALATION RT-Q6H PRN 10/13/21 10/19/21 Atorvastatin [Lipitor] 80 mg PO DAILY 10/13/21 10/19/21 Empagliflozin [Jardiance] 25 mg PO DAILY 10/13/21 10/19/21 Insulin NPH Hum/Reg Insulin Hm 40 unit SQ HS 10/13/21 10/19/21 [humuLIN 70/30 Kwikpen] Previous Rx's Medication Instructions Recorded Ticagrelor [Brilinta] 90 mg PO BID 30 Days #60 tab 04/28/21 Aspirin 81 mg PO DAILY #30 07/15/21 Nitroglycerin Sl Tabs [Nitrostat] 0.4 mg SUBLINGUAL Q5M PRN #30 tab 07/15/21 Ezetimibe [Zetia] 10 mg PO DAILY #30 tab 10/13/21 Ranolazine [Ranexa] 500 mg PO BID 7 Days #14 tab 10/19/21 Allergies Allergy/AdvReac Type Severity Reaction Status Date / Time Penicillins Allergy Unknown Verified 10/27/21 17:05 Childhood Review of Systems ROS Statement: Those systems with pertinent positive or pertinent negative responses have been documented in the HPI. ROS Other: All systems not noted in ROS Statement are negative. Past Medical History Past Medical History: Coronary Artery Disease (CAD), Chest Pain / Angina, Heart Failure, Diabetes Mellitus, Hyperlipidemia, Hypertension, Myocardial Infarction ([place]), Sleep Apnea/CPAP/BIPAP, Syncope Additional Past Medical History / Comment(s): CARDIAC HISTORY PER DR. HORAN. AICD. IDDM type II. Neuropathy bilateral feet. 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 Migraines. Chronic back pain. Last Myocardial Infarction Date:: 2015 History of Any Multi-Drug Resistant Organisms: None Reported Past Surgical History: AICD, Heart Catheterization, Heart Catheterization With Stent Additional Past Surgical History / Comment(s): 10/27/12 AICD, DFTs, PCI with 2 stents Past Anesthesia/Blood Transfusion Reactions: No Reported Reaction Date of Last Stent Placement:: 02/03/16 Type of Cardiac Device: AICD Device Placement Date:: 2012 Past Psychological History: Anxiety, Depression Smoking Status: Former smoker Past Alcohol Use History: None Reported Past Drug Use History: None Reported - Past Family History Mother Family Medical History: No Reported History Additional Family Medical History / Comment(s): Mother is healthy Brother(s) Family Medical History: Myocardial Infarction ([place]) Additional Family Medical History / Comment(s): Brother of a [place] at the age of 35yrs. Father Family Medical History: Liver Disease Additional Family Medical History / Comment(s): Father when pt was 19 yrs old from liver disease. He was an alcoholic. General Exam Limitations: no limitations General appearance: alert, in no apparent distress Head exam: Present: atraumatic, normocephalic Eye exam: Present: normal appearance, PERRL ENT exam: Present: normal exam Neck exam: Present: normal inspection. Absent: tenderness, meningismus Respiratory exam: Present: normal lung sounds bilaterally. Absent: respiratory distress, wheezes Cardiovascular Exam: Present: normal rhythm, tachycardia GI/Abdominal exam: Present: soft. Absent: distended, tenderness, guarding, rebound Extremities exam: Present: normal capillary refill. Absent: calf tenderness Neurological exam: Present: alert, oriented X3, CN II-XII intact. Absent: motor sensory deficit Psychiatric exam: Present: normal affect, normal mood Skin exam: Present: warm, dry, intact. Absent: cyanosis, diaphoretic Course Vital Signs 10/27/21 10/27/21 17:05 17:46 Temperature 98.0 F Pulse Rate 123 H 107 H Respiratory 20 20 Rate Blood Pressure 117/71 132/95 O2 Sat by Pulse 95 97 Oximetry EKG Findings - EKG Comments: EKG Findings:: EKG: Sinus tachycardia, rate of 111, ND interval 183, QRS duration 129, QTC 417, no ST segment elevation. Medical Decision Making - Medical Decision Making 41-year-old male with persistent recurrent exertional chest pain history of CAD and ischemic cardiopathy. Patient sent in for admission. He did have a repeat EKG and repeat laboratory tests including a normal CBC, normal CMP with the exception of elevated blood glucose. His first troponin is negative. He will be monitored closely on telemetry and serial cardiac enzymes will be ordered. I discussed case with Dr. Hernandez at the onset of his care and with Dr. Dan regarding admission. - Lab Data Result diagrams: 10/27/21 17:27 10/27/21 17:27 Lab Results 10/27/21 10/27/21 10/27/21 Range/Units 17:27 17:27 17:27 WBC 10.9 H (3.8-10.6) k/uL RBC 5.70 (4.30-5.90) m/uL Hgb 16.6 (13.0-17.5) gm/dL Hct 47.4 (39.0-53.0) % MCV 83.1 (80.0-100.0) fL MCH 29.1 (25.0-35.0) pg MCHC 34.9 (31.0-37.0) g/dL RDW 14.2 (11.5-15.5) % Plt Count 233 (150-450) k/uL MPV 7.7 Neutrophils % 69 % Lymphocytes % 21 % Monocytes % 5 % Eosinophils % 2 % Basophils % 1 % Neutrophils # 7.5 (1.3-7.7) k/uL Lymphocytes # 2.3 (1.0-4.8) k/uL Monocytes # 0.6 (0-1.0) k/uL Eosinophils # 0.2 (0-0.7) k/uL Basophils # 0.1 (0-0.2) k/uL PT 10.0 (9.0-12.0) sec INR 0.9 (<1.2) APTT 24.0 (22.0-30.0) sec Sodium 137 (137-145) mmol/L Potassium 3.8 (3.5-5.1) mmol/L Chloride 101 (98-107) mmol/L Carbon Dioxide 23 (22-30) mmol/L Anion Gap 13 mmol/L BUN 19 (9-20) mg/dL Creatinine 0.82 (0.66-1.25) mg/dL Est GFR (CKD-EPI)AfAm >90 (>60 ml/min/1.73 sqM) Est GFR (CKD-EPI)NonAf >90 (>60 ml/min/1.73 sqM) Glucose 256 H (74-99) mg/dL Calcium 9.2 (8.4-10.2) mg/dL Magnesium 2.1 (1.6-2.3) mg/dL Total Bilirubin 1.1 (0.2-1.3) mg/dL AST 31 (17-59) U/L ALT 27 (4-49) U/L Alkaline Phosphatase 115 (38-126) U/L Troponin I (0.000-0.034) ng/mL Total Protein 7.4 (6.3-8.2) g/dL Albumin 4.4 (3.5-5.0) g/dL 10/27/21 Range/Units 17:27 WBC (3.8-10.6) k/uL RBC (4.30-5.90) m/uL Hgb (13.0-17.5) gm/dL Hct (39.0-53.0) % MCV (80.0-100.0) fL MCH (25.0-35.0) pg MCHC (31.0-37.0) g/dL RDW (11.5-15.5) % Plt Count (150-450) k/uL MPV Neutrophils % % Lymphocytes % % Monocytes % % Eosinophils % % Basophils % % Neutrophils # (1.3-7.7) k/uL Lymphocytes # (1.0-4.8) k/uL Monocytes # (0-1.0) k/uL Eosinophils # (0-0.7) k/uL Basophils # (0-0.2) k/uL PT (9.0-12.0) sec INR (<1.2) APTT (22.0-30.0) sec Sodium (137-145) mmol/L Potassium (3.5-5.1) mmol/L Chloride (98-107) mmol/L Carbon Dioxide (22-30) mmol/L Anion Gap mmol/L BUN (9-20) mg/dL Creatinine (0.66-1.25) mg/dL Est GFR (CKD-EPI)AfAm (>60 ml/min/1.73 sqM) Est GFR (CKD-EPI)NonAf (>60 ml/min/1.73 sqM) Glucose (74-99) mg/dL Calcium (8.4-10.2) mg/dL Magnesium (1.6-2.3) mg/dL Total Bilirubin (0.2-1.3) mg/dL AST (17-59) U/L ALT (4-49) U/L Alkaline Phosphatase (38-126) U/L Troponin I <0.012 (0.000-0.034) ng/mL Total Protein (6.3-8.2) g/dL Albumin (3.5-5.0) g/dL Disposition Clinical Impression: Chest pain Disposition: HOME SELF-CARE Condition: Stable Instructions (If sedation given, give patient instructions): Chest Pain (ED) Is patient prescribed a controlled substance at d/c from ED?: No Referrals: Amrit Dan MD [Primary Care Provider] - 1-2 days Time of Disposition: 18:27
[2021-10-27 17:48] LABS: Basophils # (A) 0.1 k/uL (0-0.2); Basophils % (A) 1 %; Eosinophils # (A) 0.2 k/uL (0-0.7); Eosinophils % (A) 2 %; HCT 47.4 % (39.0-53.0); HGB 16.6 gm/dL (13.0-17.5); Lymphocytes # (A) 2.3 k/uL (1.0-4.8); Lymphocytes % (A) 21 %; MCH 29.1 pg (25.0-35.0); MCHC 34.9 g/dL (31.0-37.0); MCV 83.1 fL (80.0-100.0); Mean Platelet Volume 7.7; Monocytes # (A) 0.6 k/uL (0-1.0); Monocytes % (A) 5 %; Neutrophils # (A) 7.5 k/uL (1.3-7.7); Neutrophils % (A) 69 %; Platelet Count 233 k/uL (150-450); RDW 14.2 % (11.5-15.5); WBC 10.9 k/uL (3.8-10.6)
[2021-10-27 17:58] LABS: ALT 27 U/L (4-49); AST 31 U/L (17-59); African American GFR (CKD) >90 (>60 ml/min/1.73 sqM); Albumin 4.4 g/dL (3.5-5.0); Alkaline Phosphatase 115 U/L (38-126); Anion Gap 13 mmol/L; Blood Urea Nitrogen 19 mg/dL (9-20); Calcium 9.2 mg/dL (8.4-10.2); Carbon Dioxide 23 mmol/L (22-30); Chloride 101 mmol/L (98-107); Glucose 256 mg/dL (74-99); Magnesium 2.1 mg/dL (1.6-2.3); Non-African American GFR(CKD) >90 (>60 ml/min/1.73 sqM); Potassium 3.8 mmol/L (3.5-5.1); Sodium 137 mmol/L (137-145); Total Bilirubin 1.1 mg/dL (0.2-1.3); Total Protein 7.4 g/dL (6.3-8.2)
[2021-10-27 18:00] LABS: INR 0.9 (<1.2)
[2021-10-27] MEDS: MORPHINE SULFATE 4 MG/ML SYRINGE IV PRN ×2 (18:42→23:27)
--- NOTE | 2021-10-27 19:27 | HP ---
HISTORY AND PHYSICAL CHIEF COMPLAINT: Chest pain. HISTORY OF PRESENT ILLNESS: This is another admission for this 41-year-old white male. He has been in and out of the hospital frequently over the last few years for coronary artery disease, atherosclerotic cardiomyopathy, congestive heart failure, uncontrolled diabetes, nicotine abuse, obesity, etc. He was at Cardiology's office with chest pain. He was sent to the ER for admission. REVIEW OF SYSTEMS: He denies any syncope, orthopnea, abdominal pain, nausea, vomiting, etc. Past medical history, family history, and personal and social histories are all otherwise unremarkable or noncontributory or unchanged from his recent admitting and discharge summaries about a week ago. PHYSICAL EXAMINATION: Blood pressure is 136/88 with a pulse of 74, respirations of 32, and he is afebrile. In general he appeared to be obese and in no acute distress. Skin color was normal. Skin was warm and dry. Lymph nodes were not enlarged. Head, ears, eyes, nose, mouth and throat were normal. Neck veins were not distended. Thyroid was not enlarged. Chest was clear. Cardiac exam was normal and the abdomen was protuberant, soft and nontender. Extremities demonstrated bilateral Charcot feet. IMPRESSION: 1. Chest pain. 2. Coronary artery disease. 3. Atherosclerotic cardiomyopathy. 4. Congestive heart failure. 5. Nicotine abuse. 6. Obesity. 7. Uncontrolled diabetes mellitus. 8. Charcot feet. PLAN: 1. Bedrest. 2. IV fluids. 3. Serial EKGs and enzymes. 4. Consult Cardiology. MMODL / IJN: [id number] /
[2021-10-27 20:01] LABS: Glucose,Whole Blood 175 mg/dL (70-110)
[2021-10-27] MEDS: SACUBITRIL/VALSARTAN 24 MG-26 MG TABLET PO SCH (21:03)
[2021-10-27] MEDS: TICAGRELOR 90 MG TAB PO SCH (21:04)
[2021-10-27] MEDS: INSULIN ASPART (NovoLOG) 100 UNIT/ML VIAL SQ SCH (21:04)
[2021-10-28] MEDS: MORPHINE SULFATE 4 MG/ML SYRINGE IV PRN ×5 (04:40→22:18)
[2021-10-28 07:14] LABS: Glucose,Whole Blood 241 mg/dL (70-110)
[2021-10-28] MEDS ORDERED: FUROSEMIDE 80 MG TAB PO SCH (09:00)
--- NOTE | 2021-10-28 10:56 | P.CRDCN ---
History of Present Illness History of present illness: History of present illness: This is a pleasant 41-year-old male past medical history significant for coronary artery disease status post PCI RCA 2015, first diagonal branch LAD 2019, proximal RCA 04/2021, and balloon angioplasty of mid RCA 04/2021, ischemic cardiomyopathy status post AICD, hypertension, type 2 diabetes mellitus, dyslipidemia and chronic heart failure with reduced ejection fraction. He follows in the office with Dr Hernandez. We have been asked to see in consultation for chest pain. He has been having increased episodes of her last few weeks of chest discomfort and epigastric pain which also feels somewhat like a stabbing sensation and is also always worse with exertion and improved with rest. He states it feels similar to his prior interventions. He denies any recent changes in medications. Of note however he does feel he has put on more weight and has trace lower extremity edema. He admits to some dyspnea with exertion as well. He followed up with Dr. Hernandez yesterday in the office and given symptoms recommended to present act to emergency department for further evaluation. EKG shows sinus tachycardia Q waves anterior septum, nonspecific T-wave flattening. He states he has been compliant with all his medications. DIAGNOSTICS * Most recent echocardiogram obtained 04/2021 revealed EF of 2025%, global hypokinesis, mild tricuspid regurgitation * Most recent cardiac catheterization 04/28/2021 RCA proximally has a lesion ap peared to be in the range of 60-70%, FFR was performed and came in to be ischemic, mid RCA has in-stent restenosis appeared to be 70%, RCA distally has mild disease only and to PDA and PLV branches.. Had mild to moderate diffuse disease, left main is calcified left main with mild disease only. Left circumflex appeared to be chronically occluded. Proximal LAD has mild disease only. Mid LAD is stented just distal to the bifurcation of the large diagonal branch. LAD distally appeared to be subtotally occluded and seems to be unchanged compared to before. Patient underwent successful stenting of the proximal RCA and successful balloon angioplasty of the mid RCA REVIEW OF SYSTEMS At the time of my exam: CONSTITUTIONAL: Denies fever or chills. CARDIOVASCULAR: + chest pain, +shortness of breath, no orthopnea, PND or palpitations. RESPIRATORY: Denies cough. GASTROINTESTINAL: +epigastric pain Denies diarrhea, constipation, nausea or vomiting. MUSCULOSKELETAL: Denies myalgias. NEUROLOGIC: Denies numbness, tingling, headache or weakness. ENDOCRINE: Denies fatigue, weight change, polydipsia or polyurina. GENITOURINARY: Denies burning, hematuria or urgency with micturation. HEMATOLOGIC: Denies history of anemia or bleeding. PHYSICAL EXAMINATION Vitals reviewed CONSTITUTIONAL: No apparent distress. HEENT: Head is normocephalic. Pupils are equal, round. Sclerae anicteric. Mucous membranes of the mouth are moist. No JVD. No carotid bruit. CHEST EXAMINATION: + Mild crackles at bases, No chest wall tenderness is noted on palpation or with deep breathing. HEART EXAMINATION: Regular rate and rhythm. S1, S2 heard. Systolic murmur at apex ABDOMEN: Soft, nontender. EXTREMITIES: 2+ peripheral pulses, + trace lower extremity edema and no calf tenderness. NEUROLOGIC EXAMINATION: Patient is awake, alert and oriented x3. ASSESSMENT Chest pain, concerning for unstable angina History of coronary artery disease status post PCI RCA 2015, first diagonal branch LAD 2019, proximal RCA 04/2021, balloon angioplasty of mid RCA 04/2021, chronic total occluded left circumflex Acute on chronic heart failure with reduced ejection fraction Ischemic cardiomyopathy status post AICD placement 2012 ([employer]) Hypertension Dyslipidemia Diabetes mellitus, type 2 PLAN Patient with increasing symptoms and it forces had multiple interventions and repeat stenoses. He does feel this feels similar to his prior PCI's. Does appear to be some component of heart failure and we will change to IV diuretics and monitor response. Patient will require heart catheterization likely Saturday with Dr. Hernandez. Past Medical History Past Medical History: Coronary Artery Disease (CAD), Chest Pain / Angina, Heart Failure, Diabetes Mellitus, Hyperlipidemia, Hypertension, Myocardial Infarction (DE), Sleep Apnea/CPAP/BIPAP, Syncope Additional Past Medical History / Comment(s): CARDIAC HISTORY PER DR. HORAN. AICD. IDDM type II. Neuropathy bilateral feet. 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 Migraines. Chronic back pain. Last Myocardial Infarction Date:: 2015 History of Any Multi-Drug Resistant Organisms: None Reported Past Surgical History: AICD, Heart Catheterization, Heart Catheterization With Stent Additional Past Surgical History / Comment(s): 10/27/12 AICD, DFTs, PCI with 2 stents Past Anesthesia/Blood Transfusion Reactions: No Reported Reaction Date of Last Stent Placement:: 02/03/16 Type of Cardiac Device: AICD Device Placement Date:: 2012 Past Psychological History: Anxiety, Depression Additional Psychological History / Comment(s): Pt resides with his girlfriend Smoking Status: Former smoker Past Alcohol Use History: None Reported Additional Past Alcohol Use History / Comment(s): quit in 2019 Past Drug Use History: None Reported - Past Family History Mother Family Medical History: No Reported History Additional Family Medical History / Comment(s): Mother is healthy Brother(s) Family Medical History: Myocardial Infarction (DE) Additional Family Medical History / Comment(s): Brother of a DE at the age of 35yrs. Father Family Medical History: Liver Disease Additional Family Medical History / Comment(s): Father when pt was 19 yrs old from liver disease. He was an alcoholic. Medications and Allergies Home Medications Medication Instructions Recorded Confirmed Type metFORMIN HCL [Glucophage] 1,000 mg PO DAILY 06/14/19 10/27/21 History Furosemide [Lasix] 80 mg PO DAILY 07/25/20 10/27/21 History HYDROcodone/APAP 5-325MG [[place] 1 tab PO Q6H PRN 03/05/21 10/27/21 History 5-325] Sacubitril/Valsartan [Entresto 24 1 tab PO BID 03/05/21 10/27/21 History mg-26 mg Tablet] Ticagrelor [Brilinta] 90 mg PO BID 30 Days #60 tab 04/28/21 10/27/21 Rx Aspirin 81 mg PO DAILY #30 07/15/21 10/27/21 Rx Nitroglycerin Sl Tabs [Nitrostat] 0.4 mg SUBLINGUAL Q5M PRN #30 tab 07/15/21 10/27/21 Rx Dulaglutide [Trulicity] 4.5 mg SQ WE 09/11/21 10/27/21 History Insulin NPH Hum/Reg Insulin Hm 60 unit SQ DAILY 09/11/21 10/27/21 History [humuLIN 70/30 Kwikpen] Metoprolol Succinate (ER) [Toprol 100 mg PO DAILY 09/11/21 10/27/21 History XL] Spironolactone [Aldactone] 25 mg PO DAILY 09/11/21 10/27/21 History Albuterol Sulfate [Ventolin HFA] 2 puff INHALATION RT-QID PRN 10/13/21 10/27/21 History Atorvastatin [Lipitor] 80 mg PO DAILY 10/13/21 10/27/21 History Empagliflozin [Jardiance] 25 mg PO DAILY 10/13/21 10/27/21 History Ezetimibe [Zetia] 10 mg PO DAILY #30 tab 10/13/21 10/27/21 Rx Insulin NPH Hum/Reg Insulin Hm 40 unit SQ HS 10/13/21 10/27/21 History [humuLIN 70/30 Kwikpen] Ranolazine [Ranexa] 500 mg PO BID 7 Days #14 tab 10/19/21 10/27/21 Rx Allergies Allergy/AdvReac Type Severity Reaction Status Date / Time Penicillins Allergy Unknown Verified 10/27/21 19:44 Childhood Physical Exam Vitals: Vital Signs Temp Pulse Pulse Resp BP BP Pulse Ox 10/28/21 07:03 97.5 F L 71 16 125/82 94 L 10/28/21 02:12 98.3 F 79 19 132/85 94 L 10/28/21 02:00 93 18 10/27/21 20:05 98.4 F 93 18 119/84 95 10/27/21 18:45 101 H 18 143/87 95 10/27/21 17:46 107 H 20 132/95 97 10/27/21 17:05 98.0 F 123 H 20 117/71 95 Intake and Output 10/27/21 10/28/21 10/28/21 22:59 06:59 14:59 Intake Total 500 Balance 500 Intake: Oral 500 Other: Voiding Method Toilet Toilet # Voids 1 1 Weight 138.346 kg Results 10/27/21 17:27 10/27/21 17:27 Cardiac Enzymes 10/27/21 10/27/21 10/27/21 Range/Units 17:27 17:27 18:56 AST 31 (17-59) U/L Troponin I <0.012 <0.012 (0.000-0.034) ng/mL 10/27/21 Range/Units 21:28 AST (17-59) U/L Troponin I <0.012 (0.000-0.034) ng/mL Coagulation 10/27/21 Range/Units 17:27 PT 10.0 (9.0-12.0) sec APTT 24.0 (22.0-30.0) sec CBC 10/27/21 Range/Units 17:27 WBC 10.9 H (3.8-10.6) k/uL RBC 5.70 (4.30-5.90) m/uL Hgb 16.6 (13.0-17.5) gm/dL Hct 47.4 (39.0-53.0) % Plt Count 233 (150-450) k/uL Comprehensive Metabolic Panel 10/27/21 Range/Units 17:27 Sodium 137 (137-145) mmol/L Potassium 3.8 (3.5-5.1) mmol/L Chloride 101 (98-107) mmol/L Carbon Dioxide 23 (22-30) mmol/L BUN 19 (9-20) mg/dL Creatinine 0.82 (0.66-1.25) mg/dL Glucose 256 H (74-99) mg/dL Calcium 9.2 (8.4-10.2) mg/dL AST 31 (17-59) U/L ALT 27 (4-49) U/L Alkaline Phosphatase 115 (38-126) U/L Total Protein 7.4 (6.3-8.2) g/dL Albumin 4.4 (3.5-5.0) g/dL Current Medications Generic Name Dose Route Start Last Admin Trade Name Freq PRN Reason Stop Dose Admin Acetaminophen 650 mg 10/27/21 17:29 Acetaminophen Tab 325 Mg Tab PO Q6HR PRN Mild Pain or Fever > 100.5 Aspirin 81 mg 10/28/21 09:00 Aspirin 81 Mg PO DAILY [facility] Atorvastatin Calcium 80 mg 10/28/21 09:00 Atorvastatin 80 Mg Tab PO DAILY [facility] Furosemide 80 mg 10/28/21 09:00 Furosemide 80 Mg Tab PO DAILY [facility] Insulin Aspart 0 unit 10/27/21 21:00 10/27/21 21:04 Insulin Aspart (Novolog) 100 Unit/Ml Vial SQ 2 unit ACHS [facility] Administration Protocol Metoprolol Succinate 100 mg 10/28/21 09:00 Metoprolol Succinate (Er) 100 Mg Tab.Er.24h PO DAILY [facility] Morphine Sulfate 4 mg 10/27/21 17:29 10/28/21 08:44 Morphine Sulfate 4 Mg/Ml Syringe IV 4 mg Q4HR PRN Administration Severe Pain Naloxone HCl 0.2 mg 10/27/21 17:29 Naloxone 0.4 Mg/Ml 1 Ml Vial IV Q2M PRN Opioid Reversal Nitroglycerin 0.4 mg 10/27/21 17:31 Nitroglycerin Sl Tabs 0.4 Mg Tab SUBLINGUAL Q5M PRN Chest Pain Sacubitril/Valsartan 1 each 10/27/21 21:00 10/27/21 21:03 Sacubitril/Valsartan 24 Mg-26 Mg Tablet PO 1 each BID [facility] Administration Spironolactone 25 mg 10/28/21 09:00 Spironolactone 25 Mg Tab PO DAILY [facility] Ticagrelor 90 mg 10/27/21 21:00 10/27/21 21:04 Ticagrelor 90 Mg Tab PO 90 mg BID [facility] Administration Intake and Output 10/27/21 10/28/21 10/28/21 22:59 06:59 14:59 Intake Total 500 Balance 500 Intake: Oral 500 Other: Voiding Method Toilet Toilet # Voids 1 1 Weight 138.346 kg 10/27/21 17:27 10/27/21 17:27
[2021-10-28] MEDS: ATORVASTATIN 80 MG TAB PO SCH (11:49)
[2021-10-28] MEDS: SACUBITRIL/VALSARTAN 24 MG-26 MG TABLET PO SCH ×2 (11:49→21:10)
[2021-10-28] MEDS: TICAGRELOR 90 MG TAB PO SCH ×2 (11:49→21:10)
[2021-10-28] MEDS: ASPIRIN 81 MG PO SCH (11:50)
[2021-10-28] MEDS: FUROSEMIDE 10 MG/ML 10 ML VIAL IV SCH ×2 (11:50→21:10)
[2021-10-28] MEDS: INSULIN ASPART (NovoLOG) 100 UNIT/ML VIAL SQ SCH ×4 (11:50→22:18)
[2021-10-28] MEDS: METOPROLOL SUCCINATE (ER) 100 MG TAB.ER.24H PO SCH (11:50)
[2021-10-28] MEDS: SPIRONOLACTONE 25 MG TAB PO SCH (11:50)
[2021-10-28 12:20] LABS: Glucose,Whole Blood 245 mg/dL (70-110)
[2021-10-28 17:17] LABS: Glucose,Whole Blood 308 mg/dL (70-110)
[2021-10-28 20:38] LABS: Glucose,Whole Blood 346 mg/dL (70-110)
[2021-10-28] MEDS: RANOLAZINE 500 MG TAB.ER.12H PO SCH (21:10)
[2021-10-28] MEDS: INSULN ASP PRT/INSULIN ASPART 100 UNIT/ML 10 ML VIAL SQ SCH (22:18)
[2021-10-29] MEDS: MORPHINE SULFATE 4 MG/ML SYRINGE IV PRN ×5 (03:07→22:26)
[2021-10-29 07:13] LABS: Glucose,Whole Blood 221 mg/dL (70-110)
[2021-10-29] MEDS: ATORVASTATIN 80 MG TAB PO SCH (07:38)
[2021-10-29] MEDS: RANOLAZINE 500 MG TAB.ER.12H PO SCH ×2 (07:38→22:26)
[2021-10-29] MEDS: ASPIRIN 81 MG PO SCH ×2 (07:38→07:39)
[2021-10-29] MEDS: INSULIN ASPART (NovoLOG) 100 UNIT/ML VIAL SQ SCH ×4 (07:39→22:25)
[2021-10-29] MEDS: EZETIMIBE 10 MG TAB PO SCH (07:39)
[2021-10-29] MEDS: SPIRONOLACTONE 25 MG TAB PO SCH (07:39)
[2021-10-29] MEDS: FUROSEMIDE 10 MG/ML 10 ML VIAL IV SCH ×2 (07:40→22:26)
[2021-10-29] MEDS: NON FORMULARY DRUG (Empagliflozin [Jardiance] 25 MG Tablet) PO SCH (07:40)
[2021-10-29] MEDS: TICAGRELOR 90 MG TAB PO SCH ×2 (07:42→22:25)
[2021-10-29] MEDS: METOPROLOL SUCCINATE (ER) 100 MG TAB.ER.24H PO SCH (07:42)
[2021-10-29] MEDS ORDERED: INSULN ASP PRT/INSULIN ASPART 100 UNIT/ML 10 ML VIAL SQ SCH (09:00)
[2021-10-29] MEDS: SACUBITRIL/VALSARTAN 24 MG-26 MG TABLET PO SCH ×2 (09:53→22:25)
[2021-10-29 11:58] LABS: Glucose,Whole Blood 225 mg/dL (70-110)
[2021-10-29] MEDS ORDERED: ALPRAZolam 0.5 MG TAB PO PRN (17:00)
[2021-10-29] MEDS ORDERED: ALPRAZolam 0.25 MG TAB PO PRN (17:00)
[2021-10-29] MEDS ORDERED: ASPIRIN 325 MG TAB PO STA (17:00)
[2021-10-29] MEDS ORDERED: ATORVASTATIN 80 MG TAB PO STA (17:00)
[2021-10-29] MEDS ORDERED: NITROGLYCERIN SL TABS 0.4 MG TAB SUBLINGUAL PRN (17:00)
--- NOTE | 2021-10-29 17:00 | P.PN ---
Subjective This is a pleasant 41-year-old male past medical history significant for coronary artery disease status post PCI RCA 2015, first diagonal branch LAD 2019, proximal RCA 04/2021, and balloon angioplasty of mid RCA 04/2021, ischemic cardiomyopathy status post AICD, hypertension, type 2 diabetes mellitus, dyslipidemia and chronic heart failure with reduced ejection fraction. He follows in the office with Dr Hernandez. We have been asked to see in consultation for chest pain. He has been having increased episodes of her last few weeks of chest discomfort and epigastric pain which also feels somewhat like a stabbing sensation and is also always worse with exertion and improved with rest. He states it feels similar to his prior interventions. He denies any recent changes in medications. Of note however he does feel he has put on more weight and has trace lower extremity edema. He admits to some dyspnea with exertion as well. He followed up with Dr. Hernandez yesterday in the office and given symptoms recommended to present act to emergency department for further evaluation. EKG shows sinus tachycardia Q waves anterior septum, nonspecific T-wave flattening. He states he has been compliant with all his medications. 10/29 Patient seen and examined. Patient continues to have off-and-on chest pain however today stating has more persistent at a 6 out of 10. He refuses to try nitroglycerin and only try the morphine. He admits it was somewhat worse when he is up and doing things. Initial troponins normal however we will repeat set given ongoing chest pain. EKG ordered however has not been performed yet. DIAGNOSTICS * Most recent echocardiogram obtained 04/2021 revealed EF of 5%, global hypokinesis, mild tricuspid regurgitation * Most recent cardiac catheterization 04/28/2021 RCA proximally has a lesion appeared to be in the range of 60-70%, FFR was performed and came in to be ischemic, mid RCA has in-stent restenosis appeared to be 70%, RCA distally has mild disease only and to PDA and PLV branches.. Had mild to moderate diffuse disease, left main is calcified left main with mild disease only. Left circumflex appeared to be chronically occluded. Proximal LAD has mild disease only. Mid LAD is stented just distal to the bifurcation of the large diagonal branch. LAD distally appeared to be subtotally occluded and seems to be unchanged compared to before. Patient underwent successful stenting of the proximal RCA and successful balloon angioplasty of the mid RCA REVIEW OF SYSTEMS At the time of my exam: CONSTITUTIONAL: Denies fever or chills. CARDIOVASCULAR: + chest pain, +shortness of breath, no orthopnea, PND or palpitations. RESPIRATORY: Denies cough. GASTROINTESTINAL: +epigastric pain Denies diarrhea, constipation, nausea or vomiting. MUSCULOSKELETAL: Denies myalgias. NEUROLOGIC: Denies numbness, tingling, headache or weakness. ENDOCRINE: Denies fatigue, weight change, polydipsia or polyurina. GENITOURINARY: Denies burning, hematuria or urgency with micturation. HEMATOLOGIC: Denies history of anemia or bleeding. PHYSICAL EXAMINATION Vitals reviewed CONSTITUTIONAL: No apparent distress. HEENT: Head is normocephalic. Pupils are equal, round. Sclerae anicteric. Mucous membranes of the mouth are moist. No JVD. No carotid bruit. CHEST EXAMINATION: + Mild crackles at bases, No chest wall tenderness is noted on palpation or with deep breathing. HEART EXAMINATION: Regular rate and rhythm. S1, S2 heard. Systolic murmur at apex ABDOMEN: Soft, nontender. EXTREMITIES: 2+ peripheral pulses, + trace lower extremity edema and no calf tenderness. NEUROLOGIC EXAMINATION: Patient is awake, alert and oriented x3. ASSESSMENT Chest pain, concerning for unstable angina History of coronary artery disease status post PCI RCA 2015, first diagonal branch LAD 2019, proximal RCA 04/2021, balloon angioplasty of mid RCA 04/2021, chronic total occluded left circumflex Acute on chronic heart failure with reduced ejection fraction Ischemic cardiomyopathy status post AICD placement 2012 ([employer]) Hypertension Dyslipidemia Diabetes mellitus, type 2 PLAN Patient still having chest pain today. Check repeat EKG as well as troponins. If abnormal we will proceed to heart catheterization sooner however if normal proceed with heart catheterization with Dr. Hernandez tomorrow Objective - Vital Signs Vital signs: Vital Signs Temp 97.7 F 10/29/21 15:21 Pulse 75 10/29/21 15:21 Resp 16 10/29/21 15:21 BP 114/76 10/29/21 15:21 Pulse Ox 99 10/29/21 15:21 FiO2 Intake & Output 10/28/21 10/29/21 10/29/21 18:59 06:59 18:59 Intake Total 240 1000 236 Balance 240 1000 236 Intake: Oral 240 1000 236 Other: Voiding Method Toilet Toilet # Voids 3 1 3 - Labs CBC & Chem 7: 10/27/21 17:27 10/27/21 17:27 Labs: Abnormal Lab Results - Last 24 Hours (Table) 10/28/21 10/28/21 10/29/21 Range/Units 17:16 20:37 07:12 POC Glucose (mg/dL) 308 H 346 H 221 H (70-110) mg/dL 10/29/21 Range/Units 11:57 POC Glucose (mg/dL) 225 H (70-110) mg/dL
[2021-10-29 17:03] LABS: Glucose,Whole Blood 320 mg/dL (70-110)
[2021-10-29 21:03] LABS: Glucose,Whole Blood 340 mg/dL (70-110)
[2021-10-29] MEDS: INSULN ASP PRT/INSULIN ASPART 100 UNIT/ML 10 ML VIAL SQ SCH (22:26)
[2021-10-30] MEDS: MORPHINE SULFATE 4 MG/ML SYRINGE IV PRN ×4 (03:48→19:55)
[2021-10-30] MEDS ORDERED: HEPARIN SODIUM,PORCINE 2,500 UNIT in SODIUM CHLORIDE 0.9% 250 ML IRRIGATION PRN (07:00)
[2021-10-30] MEDS ORDERED: HEPARIN SODIUM,PORCINE 10,000 UNIT in SODIUM CHLORIDE 0.9% 1,000 ML IRRIGATION PRN (07:00)
[2021-10-30 07:19] LABS: Glucose,Whole Blood 198 mg/dL (70-110)
[2021-10-30] MEDS: RANOLAZINE 500 MG TAB.ER.12H PO SCH ×2 (07:35→20:04)
[2021-10-30] MEDS: SPIRONOLACTONE 25 MG TAB PO SCH (07:35)
[2021-10-30] MEDS: ATORVASTATIN 80 MG TAB PO SCH (07:35)
[2021-10-30] MEDS: SACUBITRIL/VALSARTAN 24 MG-26 MG TABLET PO SCH ×2 (07:35→20:47)
[2021-10-30] MEDS: EZETIMIBE 10 MG TAB PO SCH (07:35)
[2021-10-30] MEDS: TICAGRELOR 90 MG TAB PO SCH ×3 (07:36→20:04)
[2021-10-30] MEDS: METOPROLOL SUCCINATE (ER) 100 MG TAB.ER.24H PO SCH (07:36)
[2021-10-30] MEDS: FUROSEMIDE 10 MG/ML 10 ML VIAL IV SCH ×2 (07:36→20:03)
[2021-10-30] MEDS: NON FORMULARY DRUG (Empagliflozin [Jardiance] 25 MG Tablet) PO SCH (07:37)
[2021-10-30] MEDS: ASPIRIN 81 MG PO SCH (07:48)
--- NOTE | 2021-10-30 07:57 | PN ---
PROGRESS NOTE DATE OF SERVICE: 10/28/2021 CHIEF COMPLAINT: Unstable angina. HISTORY OF PRESENT ILLNESS: This gentleman is stable. He is still having chest pain. He is scheduled for cardiac cath on Saturday. PHYSICAL EXAMINATION: Chest is clear. Cardiac exam is normal. Abdomen soft and nontender. IMPRESSION: 1. Unstable angina pectoris. 2. Coronary artery disease. 3. Ischemic cardiomyopathy. 4. Congestive heart failure. 5. Uncontrolled diabetes. PLAN: Cardiac catheterization on Saturday. MMODL / IJN: [id number] /
[2021-10-30] MEDS: INSULN ASP PRT/INSULIN ASPART 100 UNIT/ML 10 ML VIAL SQ SCH ×2 (08:31→20:49)
[2021-10-30] MEDS: INSULIN ASPART (NovoLOG) 100 UNIT/ML VIAL SQ SCH ×4 (08:31→20:48)
[2021-10-30 12:03] LABS: Glucose,Whole Blood 230 mg/dL (70-110)
[2021-10-30] MEDS ORDERED: VERAPAMIL 2.5 MG/ML 2 ML AMP ONE (12:22)
[2021-10-30] MEDS ORDERED: HEPARIN SODIUM 1,000 UN/ML (10ML VL) ONE ×2 (12:22→12:49)
[2021-10-30] MEDS ORDERED: MIDAZOLAM 2 MG/2 ML VIAL IV ONE (12:34)
[2021-10-30] MEDS ORDERED: LIDOCAINE 1% INJ 10MG/ML (5 ML VIAL-PF) SQ ONE (12:35)
[2021-10-30] MEDS ORDERED: VERAPAMIL SYRINGE (5 MG/10 ML) INTRAARTER ONE (12:37)
[2021-10-30] MEDS ORDERED: HEPARIN SODIUM 1,000 UN/ML (10ML VL) IV ONE ×2 (12:39→12:49)
[2021-10-30] MEDS ORDERED: IV FLUID CONTINUATION 1,000 ML IV ONE (12:40)
[2021-10-30] MEDS ORDERED: IOPAMIDOL-370 125ML BTL INJ ONE (13:02)
[2021-10-30] MEDS ORDERED: MAG HYDROX/AL HYDROX/SIMETH 30 ML CUP PO PRN (13:05)
[2021-10-30] MEDS ORDERED: RX INFO: IV CONTRAST WAS GIVEN 1 EACH MISC MISCELLANE PRN (13:05)
[2021-10-30] MEDS ORDERED: ZOLPIDEM 5 MG TAB PO PRN (13:05)
[2021-10-30] MEDS ORDERED: NITROGLYCERIN SL TABS 0.4 MG TAB SUBLINGUAL PRN (13:05)
[2021-10-30] MEDS ORDERED: ATROPINE SULFATE 0.1 MG/ML 10ML SYRINGE IV PRN (13:05)
--- NOTE | 2021-10-30 13:12 | P.PCN ---
Date of Procedure: 10/30/21 Operative Findings: CARDIAC CATHETERIZATION AND PERCUTANEOUS CORONARY INTERVENTION PERFORMING PHYSICIAN: Damion Hernandez MD, VI PROCEDURE PERFORMED: 1. Selective right and left coronary angiogram 2. Left heart catheterization 3. Intravascular ultrasound of the RCA 4. Successful balloon angioplasty of the RCA using 40 mm balloon with an excellent angiographic results INDICATION: Chest discomfort concerning for unstable angina in this 41-year-old gentleman with a coronary artery disease and prior stenting of the RCA was experiencing symptoms of chest discomfort for the last few weeks concerning for angina COMPLICATION: None APPROACH: Right radial artery LEVEL OF SEDATION: Moderate with the sedation time off 30 minutes PROCEDURE DESCRIPTION: After obtaining an informed consent the patient was brought to the cardiac clinical laboratory manager. The right radial artery was cannulated using micropuncture technique, the micropuncture wire passed easily then I placed a 6-[place] sheath the right kidney function milligrams of verapamil intra-arterial and a total of 12,000 use of heparin intravenous. Selective right and left coronary angiogram performed using JR4 and JL 3.5 catheters. Left heart catheterization was performed using the JR4 catheter which cross the aortic valve. After that I did intervene on the RCA SELECTIVE CORONARY ANGIOGRAM: The right coronary artery: Large caliber vessel and a dominant vessel. The RCA has critical in-stent restenosis. The in-stent restenosis involving the midportion with the distal RCA stent appeared to be patent Left main: Is angiographically normal. Bifurcates into LCx and LAD The left circumflex: Is occluded. The left anterior descending artery: The proximal LAD appears to have mild disease only. The mid LAD appears to have mild disease only as well and gives rises into a large diagonal which has an intermediate lesion. The LAD distally by the apical area appears to have a tight lesion to be unchanged compared to before HEMODYNAMICS: The LVEDP was 13 mmHg was no significant gradient across aortic valve PCI OF THE RCA: Anticoagulation was initiated using heparin with continuous ACT monitoring. I did use an inhaled 0.75 guide. I rewire the RCA using a run-through wire. After that I did intravascular ultrasound which showed that probably the stent in the mid RCA was undersized. Because of that I did balloon angioplasty using 4.5 mm balloon and I did multiple balloon angioplasty. The final angiogram showed good angiographic results and the procedure was completed without any complication CONCLUSION: Critical in-stent restenosis of the mid RCA. Patent stent in the distal RCA. I did successful balloon angioplasty. POSTPROCEDURE MANAGEMENT: #1 dual antiplatelet therapy #2 aggressive cholesterol control #3 follow-up with the patient
[2021-10-30] MEDS ORDERED: SODIUM CHLORIDE 0.9% 1,000 ML in EMPTY BAG 1 BAG IV SCH (13:15)
[2021-10-30] MEDS: HYDROcodone/APAP 5-325MG 1 EACH TAB PO PRN (15:59)
[2021-10-30 17:00] LABS: Glucose,Whole Blood 312 mg/dL (70-110)
--- NOTE | 2021-10-30 18:04 | PN ---
PROGRESS NOTE DATE OF SERVICE: 10/29/2021 CHIEF COMPLAINT: Unstable angina. HISTORY OF PRESENT ILLNESS: This gentleman is still complaining of chest pain. He does go for his cardiac cath tomorrow. PHYSICAL EXAMINATION: Chest is clear. Cardiac exam is normal. The abdomen is protuberant, soft and nontender. IMPRESSION: 1. Unstable angina. 2. Uncontrolled diabetes. PLAN: 1. Increase insulin management. 2. Cardiac cath tomorrow. MMODL / IJN: [id number] /
--- NOTE | 2021-10-30 18:40 | PN ---
PROGRESS NOTE DATE OF SERVICE: 08/30/2021 CHIEF COMPLAINT: Unstable angina and cardiomyopathy. HISTORY OF PRESENT ILLNESS: This gentleman is still having chest pain. He is going for his catheterization today. PHYSICAL EXAMINATION: Chest is clear. Cardiac exam remains normal. Abdomen is soft, nontender. IMPRESSION: 1. Unstable angina pectoris. 2. Coronary artery disease. 3. Ischemic cardiomyopathy. 4. Congestive heart failure. PLAN: Cardiac cath today. MMODL / IJN: [id number] /
[2021-10-30 20:28] LABS: Glucose,Whole Blood 253 mg/dL (70-110)
[2021-10-31] MEDS: MORPHINE SULFATE 4 MG/ML SYRINGE IV PRN ×5 (00:13→22:04)
[2021-10-31] MEDS: HYDROcodone/APAP 5-325MG 1 EACH TAB PO PRN ×2 (01:09→15:23)
[2021-10-31 07:27] LABS: Glucose,Whole Blood 252 mg/dL (70-110)
[2021-10-31] MEDS: INSULN ASP PRT/INSULIN ASPART 100 UNIT/ML 10 ML VIAL SQ SCH ×2 (08:57→20:57)
[2021-10-31] MEDS: INSULIN ASPART (NovoLOG) 100 UNIT/ML VIAL SQ SCH ×4 (08:58→20:57)
[2021-10-31] MEDS: FUROSEMIDE 80 MG TAB PO SCH (09:00)
[2021-10-31] MEDS: TICAGRELOR 90 MG TAB PO SCH ×2 (09:00→20:56)
[2021-10-31] MEDS: ASPIRIN 81 MG PO SCH (09:00)
[2021-10-31] MEDS: METOPROLOL SUCCINATE (ER) 100 MG TAB.ER.24H PO SCH (09:00)
[2021-10-31] MEDS: RANOLAZINE 500 MG TAB.ER.12H PO SCH ×2 (09:00→20:56)
[2021-10-31] MEDS: ATORVASTATIN 80 MG TAB PO SCH (09:00)
[2021-10-31] MEDS: SPIRONOLACTONE 25 MG TAB PO SCH (09:00)
[2021-10-31] MEDS: SACUBITRIL/VALSARTAN 24 MG-26 MG TABLET PO SCH ×2 (09:00→20:56)
[2021-10-31 09:36] LABS: African American GFR (CKD) 78.5 (60.0-200.0); Anion Gap 11.3 mmol/L (10.00-18.00); BUN/Creat Ratio 19.62 Ratio (12.00-20.00); Blood Urea Nitrogen 25.5 mg/dL (9.0-27.0); Calcium 8.4 mg/dL (8.7-10.3); Carbon Dioxide 25.7 mmol/L (20.0-27.5); Magnesium 2.7 mg/dL (1.5-2.4); Non-African American GFR(CKD) 67.8 (60.0-200.0); Potassium 3.9 mmol/L (3.5-5.5)
[2021-10-31] MEDS: EZETIMIBE 10 MG TAB PO SCH (09:49)
[2021-10-31] MEDS: NON FORMULARY DRUG (Empagliflozin [Jardiance] 25 MG Tablet) PO SCH (09:49)
--- NOTE | 2021-10-31 10:50 | P.PN ---
Subjective This is a pleasant 41-year-old male past medical history significant for coronary artery disease status post PCI RCA 2015, first diagonal branch LAD 2019, proximal RCA 04/2021, and balloon angioplasty of mid RCA 04/2021, ischemic cardiomyopathy status post AICD, hypertension, type 2 diabetes mellitus, dyslipidemia and chronic heart failure with reduced ejection fraction. He follows in the office with Dr Hernandez. We have been asked to see in consultation for chest pain. He has been having increased episodes of her last few weeks of chest discomfort and epigastric pain which also feels somewhat like a stabbing sensation and is also always worse with exertion and improved with rest. He states it feels similar to his prior interventions. He denies any recent changes in medications. Of note however he does feel he has put on more weight and has trace lower extremity edema. He admits to some dyspnea with exertion as well. He followed up with Dr. Hernandez yesterday in the office and given symptoms recommended to present act to emergency department for further evaluation. EKG shows sinus tachycardia Q waves anterior septum, nonspecific T-wave flattening. He states he has been compliant with all his medications. On 10/30/2021, patient underwent heart catheterization with Dr. Hernandez which revealedin-stent restenosis of the RCA. The in-stent restenosis involving the midportion with distal RCA stent appeared to be patent. Left circumflex is occluded. Proximal LAD it appears to have mild disease only mid LAD appears to have mild disease only as well and gives rises into a large diagonal which has an intermediate lesion. The LAD distally by the apical area appears to have a tight lesion to be unchanged compared to before. patient underwent balloon angioplasty of the RCA. 10/31/2021 Patient seen and examined at bedside, no acute distress. She denies any chest pain or shortness of breath. He was ambulating the halls and his group with no difficulty. He is overall feeling well. vital signs are stable.labs, sodium 138, potassium 3.9, BUN 25, serum creatinine 1.3, magnesium 2.7 PHYSICAL EXAMINATION Vitals reviewed CONSTITUTIONAL: No apparent distress. HEENT:Neck Supple. No JVD. No carotid bruit. CHEST EXAMINATION: Diminished bilaterally. No chest wall tenderness is noted on palpation or with deep breathing. HEART EXAMINATION: Regular rate and rhythm. S1, S2 heard. Systolic murmur at apex ABDOMEN: Soft, nontender. EXTREMITIES: 2+ peripheral pulses, No lower extremity edema and no calf tenderness. NEUROLOGIC EXAMINATION: Patient is awake, alert and oriented x3. SKIN: right radial cath site, clean, dry, intact, no hematoma. 2+ pulses. ASSESSMENT Chest pain, concerning for unstable angina Status post balloon angioplasty of the RCA on 10/31/2021 History of coronary artery disease status post PCI RCA 2015, first diagonal branch LAD 2019, proximal RCA 04/2021, balloon angioplasty of mid RCA 04/2021, chronic total occluded left circumflex Chronic heart failure with reduced ejection fraction Ischemic cardiomyopathy status post AICD placement 2012 ([employer]) Hypertension Dyslipidemia Diabetes mellitus, type 2 PLAN From cardiology perspective, patient stable to be discharged home. Continue homedual antiplatelet therapy with aspirin and Brilinta Continue home statin, Jardiance, Lasix, Entresto, Spironolactone, Ranexa and beta pernell Follow up outpatient with Dr. Hernandez in 1 week. Nurse practitioner note has been reviewed by physician. Signing provider agrees with the documented findings, assessment, and plan of care. Objective - Vital Signs Vital signs: Vital Signs Temp 97.6 F 10/31/21 07:36 Pulse 83 10/31/21 07:36 Resp 16 10/31/21 07:36 BP 106/74 10/31/21 07:36 Pulse Ox 100 10/31/21 08:12 FiO2 Intake & Output 10/30/21 10/31/21 10/31/21 18:59 06:59 18:59 Intake Total 880 490 600 Balance 880 490 600 Intake: IV 300 Oral 580 490 600 Other: Voiding Method Toilet Toilet # Voids 1 3 - Labs CBC & Chem 7: 10/27/21 17:27 10/31/21 05:32 Labs: Abnormal Lab Results - Last 24 Hours (Table) 10/30/21 10/30/21 10/30/21 Range/Units 12:02 16:58 20:26 Glucose (70-110) mg/dL POC Glucose (mg/dL) 230 H 312 H 253 H (70-110) mg/dL Calcium (8.7-10.3) mg/dL Magnesium (1.5-2.4) mg/dL 10/31/21 10/31/21 Range/Units 05:32 07:25 Glucose 244 H (70-110) mg/dL POC Glucose (mg/dL) 252 H (70-110) mg/dL Calcium 8.4 L (8.7-10.3) mg/dL Magnesium 2.7 H (1.5-2.4) mg/dL
[2021-10-31 12:41] LABS: Glucose,Whole Blood 151 mg/dL (70-110)
[2021-10-31 14:57] VITALS: BMI 41.3
[2021-10-31 17:41] LABS: Glucose,Whole Blood 327 mg/dL (70-110)
--- NOTE | 2021-10-31 19:32 | PN ---
PROGRESS NOTE CHIEF COMPLAINT: Chest pain. HISTORY OF PRESENT ILLNESS: This gentleman is still having chest pain. Yesterday he had a stent placed, but he is still complaining of the chest pain. PHYSICAL EXAMINATION: Vital signs are normal. Chest is clear. Cardiac exam is unchanged. IMPRESSION: 1. Chest pain. 2. Unstable angina. 3. Coronary artery disease. 4. Congestive heart failure. 5. Atherosclerotic cardiomyopathy. 6. Diabetes. 7. Charcot feet. PLAN: Hold discharge for today and follow his chest pain for another 24 hours. MMODL / IJN: [id number] /
[2021-10-31 20:47] LABS: Glucose,Whole Blood 413 mg/dL (70-110)
[2021-11-01] MEDS: MORPHINE SULFATE 4 MG/ML SYRINGE IV PRN ×4 (02:52→20:22)
[2021-11-01 07:13] LABS: Glucose,Whole Blood 180 mg/dL (70-110)
[2021-11-01] MEDS: SACUBITRIL/VALSARTAN 24 MG-26 MG TABLET PO SCH ×2 (08:37→20:23)
[2021-11-01] MEDS: ATORVASTATIN 80 MG TAB PO SCH (08:37)
[2021-11-01] MEDS: EZETIMIBE 10 MG TAB PO SCH (08:38)
[2021-11-01] MEDS: TICAGRELOR 90 MG TAB PO SCH ×2 (08:39→20:23)
[2021-11-01] MEDS: RANOLAZINE 500 MG TAB.ER.12H PO SCH ×2 (08:39→20:23)
[2021-11-01] MEDS: ASPIRIN 81 MG PO SCH (08:39)
[2021-11-01] MEDS: NON FORMULARY DRUG (Empagliflozin [Jardiance] 25 MG Tablet) PO SCH (09:33)
[2021-11-01] MEDS: METOPROLOL SUCCINATE (ER) 100 MG TAB.ER.24H PO SCH (10:05)
[2021-11-01] MEDS: FUROSEMIDE 80 MG TAB PO SCH (10:05)
[2021-11-01] MEDS: SODIUM CHLORIDE 0.9% 1,000 ML in EMPTY BAG 1 BAG IV SCH ×2 (10:05→18:16)
[2021-11-01] MEDS: SPIRONOLACTONE 25 MG TAB PO SCH (10:05)
--- NOTE | 2021-11-01 10:15 | P.PN ---
Subjective This is a pleasant 41-year-old male past medical history significant for coronary artery disease status post PCI RCA 2015, first diagonal branch LAD 2019, proximal RCA 04/2021, and balloon angioplasty of mid RCA 04/2021, ischemic cardiomyopathy status post AICD, hypertension, type 2 diabetes mellitus, dyslipidemia and chronic heart failure with reduced ejection fraction. He follows in the office with Dr Hernandez. We have been asked to see in consultation for chest pain. He has been having increased episodes of her last few weeks of chest discomfort and epigastric pain which also feels somewhat like a stabbing sensation and is also always worse with exertion and improved with rest. He states it feels similar to his prior interventions. He denies any recent changes in medications. Of note however he does feel he has put on more weight and has trace lower extremity edema. He admits to some dyspnea with exertion as well. He followed up with Dr. Hernandez yesterday in the office and given symptoms recommended to present act to emergency department for further evaluation. EKG shows sinus tachycardia Q waves anterior septum, nonspecific T-wave flattening. He states he has been compliant with all his medications. On 10/30/2021, patient underwent heart catheterization with Dr. Hernandez which revealedin-stent restenosis of the RCA. The in-stent restenosis involving the midportion with distal RCA stent appeared to be patent. Left circumflex is occluded. Proximal LAD it appears to have mild disease only mid LAD appears to have mild disease only as well and gives rises into a large diagonal which has an intermediate lesion. The LAD distally by the apical area appears to have a tight lesion to be unchanged compared to before. patient underwent balloon angioplasty of the RCA. 11/01/2021 Patient seen and examined at bedside, no acute distress. He continued to have chest pain overnight and discharge was held. He is having chest discomfort with activity, it is similar to this prior pain, worse with exertion. Improved with rest. His breathing is stable, no shortness of breath. Vital signs are stable.telemetry reviewed with no acute findings. PHYSICAL EXAMINATION Vitals reviewed CONSTITUTIONAL: No apparent distress. HEENT:Neck Supple. No JVD. No carotid bruit. CHEST EXAMINATION: Diminished bilaterally. No chest wall tenderness is noted on palpation or with deep breathing. HEART EXAMINATION: Regular rate and rhythm. S1, S2 heard. Systolic murmur at apex ABDOMEN: Soft, nontender. EXTREMITIES: 2+ peripheral pulses, No lower extremity edema and no calf tenderness. NEUROLOGIC EXAMINATION: Patient is awake, alert and oriented x3. SKIN: right radial cath site, clean, dry, intact, no hematoma. 2+ pulses. ASSESSMENT Chest pain, concerning for unstable angina Status post balloon angioplasty of the RCA on 10/31/2021 History of coronary artery disease status post PCI RCA 2015, first diagonal b ranch LAD 2019, proximal RCA 04/2021, balloon angioplasty of mid RCA 04/2021, chronic total occluded left circumflex Chronic heart failure with reduced ejection fraction Ischemic cardiomyopathy status post AICD placement 2012 ([employer]) Hypertension Dyslipidemia Diabetes mellitus, type 2 PLAN Patient continues to have chest pain, worse with exertion, improved with rest. Spoke with patient's primary hide dropper Dr. Hernandez. Plan for heart catheterization today. Keep patient NPO this morning Continue home dual antiplatelet therapy with aspirin and Brilinta Continue home statin, Jardiance, Lasix, Entresto, Spironolactone, Ranexa and beta pernell I have discussed the risks, benefits and alternative therapies for the above- mentioned procedure and for both sedation/analgesia as well as necessary blood product administration, if indicated, as they pertain to this patient. The patient has indicated understanding and acceptance of the risks and procedures discussed. Questions have been answered appropriately and he is agreeable to move forward with the above-stated procedure. Further recommendations based on clinical course Nurse practitioner note has been reviewed by physician. Signing provider agrees with the documented findings, assessment, and plan of care. Objective - Vital Signs Vital signs: Vital Signs Temp 97.8 F 11/01/21 07:52 Pulse 74 11/01/21 07:52 Resp 20 11/01/21 07:52 BP 121/73 11/01/21 07:52 Pulse Ox 95 11/01/21 07:52 FiO2 Intake & Output 10/31/21 11/01/21 11/01/21 18:59 06:59 18:59 Intake Total 600 Balance 600 Weight 138.346 kg Intake: Oral 600 Other: Voiding Method Toilet # Voids 1 - Labs CBC & Chem 7: 10/27/21 17:27 10/31/21 05:32 Labs: Abnormal Lab Results - Last 24 Hours (Table) 10/31/21 10/31/21 10/31/21 Range/Units 12:40 17:40 20:44 POC Glucose (mg/dL) 151 H 327 H 413 H (70-110) mg/dL 11/01/21 Range/Units 07:02 POC Glucose (mg/dL) 180 H (70-110) mg/dL
[2021-11-01] MEDS: INSULIN ASPART (NovoLOG) 100 UNIT/ML VIAL SQ SCH ×4 (11:30→20:22)
[2021-11-01 12:21] LABS: Glucose,Whole Blood 186 mg/dL (70-110)
[2021-11-01] MEDS ORDERED: VERAPAMIL 2.5 MG/ML 2 ML AMP ONE (14:10)
[2021-11-01] MEDS ORDERED: HEPARIN SODIUM 1,000 UN/ML (10ML VL) ONE ×2 (14:15→14:26)
[2021-11-01] MEDS: INSULN ASP PRT/INSULIN ASPART 100 UNIT/ML 10 ML VIAL SQ SCH ×2 (14:23→20:22)
[2021-11-01] MEDS ORDERED: fentaNYL (PF) 50 MCG/ML 2 ML AMP ONE (14:27)
[2021-11-01] MEDS ORDERED: MIDAZOLAM 2 MG/2 ML VIAL IV ONE (14:35)
[2021-11-01] MEDS ORDERED: IV FLUID CONTINUATION 1,000 ML IV ONE (14:35)
[2021-11-01] MEDS ORDERED: LIDOCAINE 1% INJ 10MG/ML (5 ML VIAL-PF) SQ ONE (14:36)
[2021-11-01] MEDS ORDERED: VERAPAMIL SYRINGE (5 MG/10 ML) INTRAARTER ONE (14:40)
[2021-11-01] MEDS: HEPARIN SODIUM 1,000 UN/ML (10ML VL) IV ONE ×2 (14:44→15:00)
[2021-11-01] MEDS ORDERED: IOPAMIDOL-370 125ML BTL INJ ONE (15:26)
[2021-11-01] MEDS ORDERED: NON FORMULARY DRUG (Dulaglutide [Trulicity] 4.5 MG/0.5 ML Each) SQ SCH (15:37)
--- NOTE | 2021-11-01 15:50 | P.PCN ---
Date of Procedure: 11/01/21 Operative Findings: CARDIAC CATHETERIZATION AND PERCUTANEOUS CORONARY INTERVENTION PERFORMING PHYSICIAN: Damion Hernandez MD, [facility] PROCEDURE PERFORMED: 1. Selective right and left coronary angiogram 2. Fractional flow reserve (FFR) of the right coronary artery 3. Successful balloon angioplasty of the RCA using 40 mm balloon with an excellent angiographic results INDICATION: The patient is a pleasant 41-year-old with known coronary artery disease with multiple stents to the right coronary artery was admitted recently from this for intermittent episodes of chest discomfort concerning for unstable angina. This past Saturday he underwent heart catheterization and was found to have severe instent restenosis involving the right coronary artery. In the light of multiple layers of stents I did balloon angioplasty only after and the vascular ultrasound was performed and we had good angiographic results. Subsequently on for the last 24 hours after the procedure the patient continues to have chest discomfort concerning for angina. In the light of that a heart catheterization was advised COMPLICATION: None APPROACH: Right radial artery LEVEL OF SEDATION: Moderate with the sedation time off 50 minutes PROCEDURE DESCRIPTION: After obtaining an informed consent the patient was brought to the cardiac catheter builder. The right radial artery was cannulated using micropuncture technique, under ultrasound guidance, the micropuncture wire passed easily then I placed a 6- Tamazight sheath the right kidney function milligrams of verapamil intra-arterial and a total of 12,000 use of heparin intravenous. Selective right and left coronary angiogram performed using JR4 and JL 3.5 catheters. After that I did intervene on the right coronary artery with performing fractional flow reserve of the RCA and subsequently balloon angioplasty of the RCA. The procedure was completed without any complication SELECTIVE CORONARY ANGIOGRAM: The right coronary artery: Large caliber vessel and a dominant vessel. The mid to distal RCA by the bifurcation of the PDA branch there was a hazy lesion. IFR came in to be 0.84. Left main: Is angiographically normal. Bifurcates into LCx and LAD The left circumflex: Is occluded. This is a known finding from before The left anterior descending artery: The proximal LAD appears to have mild disease only. The mid LAD appears to have mild disease only as well and gives rises into a large diagonal which has an intermediate lesion. The LAD distally by the apical area appears to have a tight lesion to be unchanged compared to before IFR AND PCI OF THE RCA: After zeroing the Doppler wire and equalizing between the Doppler wire and the guiding catheter which was an a.l. 0.75 guiding catheter we did an IFR and that came in to be ischemic at 0.84. I did pull back on the wire and I was able to identify the lesion where there was normal IFR proximal to the lesion and abnormal IFR distal to that lesion. That lesion was a hazy lesion was identified angiographically. Because of that I decided to do balloon angioplasty. Initially attempted balloon angioplasty using 3.0 x 12 mm balloon was performed but the balloon kept going backward or forward. At that point I decided to use an Angiosculp balloon which was a 3.0 x 10 mm balloon. Even with that balloon the balloon was not staining into place and was moving again ba ckboard and for work. Finally I took 3.5 x 20 mm NC balloon and I was able to balloon the lesion using that balloon. The final angiogram showed good angiographic results and the procedure was completed without any complication POSTPROCEDURE MANAGEMENT: #1 dual antiplatelet therapy #2 aggressive cholesterol control #3 follow-up with the patient
[2021-11-01] MEDS: HYDROcodone/APAP 5-325MG 1 EACH TAB PO PRN (16:53)
[2021-11-01 17:38] LABS: Glucose,Whole Blood 237 mg/dL (70-110)
[2021-11-01 20:14] LABS: Glucose,Whole Blood 249 mg/dL (70-110)
--- NOTE | 2021-11-01 20:47 | PN ---
PROGRESS NOTE DATE OF SERVICE: 11/01/2021 CHIEF COMPLAINT: Unstable angina. HISTORY OF PRESENT ILLNESS: Because of this gentleman's chest pain, he was taken back to the cardiac cath lab manager today and the RCA was opened slightly more than it had been where the stent was replaced the other day. At the present time he is awake and alert and feels the chest discomfort has improved. PHYSICAL EXAMINATION: Vital signs are normal. Chest is clear. Cardiac exam is normal. Abdomen is soft, nontender. IMPRESSION: 1. Unstable angina pectoris. 2. Coronary artery disease. 3. Atherosclerotic cardiomyopathy. 4. Obesity. 5. Uncontrolled diabetes. PLAN: Monitor his postoperative symptoms, vital signs and blood sugar. MMODL / IJN: [id number] /
[2021-11-02] MEDS: SODIUM CHLORIDE 0.9% 1,000 ML in EMPTY BAG 1 BAG IV SCH ×2 (00:29→10:34)
[2021-11-02] MEDS: MORPHINE SULFATE 4 MG/ML SYRINGE IV PRN ×3 (00:39→08:47)
[2021-11-02 04:14] VITALS: RESP 18
[2021-11-02 05:40] LABS: Basophils # (A) 0.1 k/uL (0-0.2); Basophils % (A) 2 %; Eosinophils # (A) 0.3 k/uL (0-0.7); Eosinophils % (A) 4 %; HCT 49.3 % (39.0-53.0); HGB 15.9 gm/dL (13.0-17.5); Lymphocytes # (A) 2.4 k/uL (1.0-4.8); Lymphocytes % (A) 30 %; MCH 27.8 pg (25.0-35.0); MCHC 32.3 g/dL (31.0-37.0); MCV 86.1 fL (80.0-100.0); Mean Platelet Volume 7.7; Monocytes # (A) 0.5 k/uL (0-1.0); Monocytes % (A) 6 %; Neutrophils # (A) 4.6 k/uL (1.3-7.7); Neutrophils % (A) 57 %; Platelet Count 210 k/uL (150-450); RBC 5.73 m/uL (4.30-5.90); RDW 14.4 % (11.5-15.5); WBC 8.1 k/uL (3.8-10.6)
[2021-11-02 05:58] LABS: African American GFR (CKD) >90 (>60 ml/min/1.73 sqM); Anion Gap 5 mmol/L; Blood Urea Nitrogen 22 mg/dL (9-20); Carbon Dioxide 30 mmol/L (22-30); Chloride 103 mmol/L (98-107); Glucose 250 mg/dL (74-99); Non-African American GFR(CKD) 85 (>60 ml/min/1.73 sqM); Potassium 4.8 mmol/L (3.5-5.1); Sodium 138 mmol/L (137-145)
[2021-11-02] MEDS ORDERED: HEPARIN SODIUM,PORCINE 10,000 UNIT in SODIUM CHLORIDE 0.9% 1,000 ML IRRIGATION PRN (07:00)
[2021-11-02] MEDS ORDERED: HEPARIN SODIUM,PORCINE 2,500 UNIT in SODIUM CHLORIDE 0.9% 250 ML IRRIGATION PRN (07:00)
[2021-11-02] MEDS ORDERED: INSULN ASP PRT/INSULIN ASPART 100 UNIT/ML 10 ML VIAL SQ SCH (07:30)
[2021-11-02 07:44] LABS: Glucose,Whole Blood 192 mg/dL (70-110)
[2021-11-02 08:20] VITALS: BP 121/77; PULSE 70; TEMP 98.4
[2021-11-02] MEDS: TICAGRELOR 90 MG TAB PO SCH (08:39)
[2021-11-02] MEDS: SACUBITRIL/VALSARTAN 24 MG-26 MG TABLET PO SCH (08:39)
[2021-11-02] MEDS: SPIRONOLACTONE 25 MG TAB PO SCH (08:39)
[2021-11-02] MEDS: EZETIMIBE 10 MG TAB PO SCH (08:39)
[2021-11-02] MEDS: ASPIRIN 81 MG PO SCH (08:39)
[2021-11-02] MEDS: FUROSEMIDE 80 MG TAB PO SCH (08:39)
[2021-11-02] MEDS: METOPROLOL SUCCINATE (ER) 100 MG TAB.ER.24H PO SCH (08:39)
[2021-11-02] MEDS: ATORVASTATIN 80 MG TAB PO SCH (08:40)
[2021-11-02] MEDS: INSULIN ASPART (NovoLOG) 100 UNIT/ML VIAL SQ SCH ×2 (08:40→13:31)
[2021-11-02] MEDS: RANOLAZINE 500 MG TAB.ER.12H PO SCH (08:40)
--- NOTE | 2021-11-02 10:09 | P.PN ---
Subjective This is a pleasant 41-year-old male past medical history significant for coronary artery disease status post PCI RCA 2015, first diagonal branch LAD 2019, proximal RCA 04/2021, and balloon angioplasty of mid RCA 04/2021, ischemic cardiomyopathy status post AICD, hypertension, type 2 diabetes mellitus, dyslipidemia and chronic heart failure with reduced ejection fraction. He follows in the office with Dr Hernandez. We have been asked to see in consultation for chest pain. He has been having increased episodes of her last few weeks of chest discomfort and epigastric pain which also feels somewhat like a stabbing sensation and is also always worse with exertion and improved with rest. He states it feels similar to his prior interventions. He denies any recent changes in medications. Of note however he does feel he has put on more weight and has trace lower extremity edema. He admits to some dyspnea with exertion as well. He followed up with Dr. Hernandez yesterday in the office and given symptoms recommended to present act to emergency department for further evaluation. EKG shows sinus tachycardia Q waves anterior septum, nonspecific T-wave flattening. He states he has been compliant with all his medications. On 10/30/2021, patient underwent heart catheterization with Dr. Hernandez which revealedin-stent restenosis of the RCA. The in-stent restenosis involving the midportion with distal RCA stent appeared to be patent. Left circumflex is occluded. Proximal LAD it appears to have mild disease only mid LAD appears to have mild disease only as well and gives rises into a large diagonal which has an intermediate lesion. The LAD distally by the apical area appears to have a tight lesion to be unchanged compared to before. patient underwent balloon angioplasty of the RCA. 11/01/2021 Patient had continuous chest pain with activity concerning for angina. Patient underwent repeat heart catheterization with Dr. Hernandez, with successful balloon angioplasty of the RCA 11/02/2021 Patient seen and examined at bedside, no acute distress. He denies any chest pain or shortness of breath. No complaints this morning. His breathing is stable, no shortness of breath. Vital signs are stable.Telemetry reviewed with no acute findings, patient maintained sinus mechanism. PHYSICAL EXAMINATION Vitals reviewed CONSTITUTIONAL: No apparent distress. HEENT:Neck Supple. No JVD. No carotid bruit. CHEST EXAMINATION: Diminished bilaterally. No chest wall tenderness is noted on palpation or with deep breathing. HEART EXAMINATION: Regular rate and rhythm. S1, S2 heard. Systolic murmur at apex ABDOMEN: Soft, nontender. EXTREMITIES: 2+ peripheral pulses, No lower extremity edema and no calf tenderness. NEUROLOGIC EXAMINATION: Patient is awake, alert and oriented x3. SKIN: right radial cath site, clean, dry, intact, no hematoma. 2+ pulses. ASSESSMENT Chest pain, concerning for unstable angina Status post balloon angioplasty of the RCA on 10/31/2021 History of coronary artery disease status post PCI RCA 2015, first diagonal branch LAD 2019, proximal RCA 04/2021, balloon angioplasty of mid RCA 04/2021, c hronic total occluded left circumflex Chronic heart failure with reduced ejection fraction Ischemic cardiomyopathy status post AICD placement 2012 ([employer]) Hypertension Dyslipidemia Diabetes mellitus, type 2 PLAN Patient pain has improved, no further chest pain this morning From a cardiology perspective, patient is stable for discharge home Continue home dual antiplatelet therapy with aspirin and Brilinta Continue home statin, Jardiance, Lasix, Entresto, Spironolactone, Ranexa and beta pernell Follow up with Dr. Hernandez in one week Nurse practitioner note has been reviewed by physician. Signing provider agrees with the documented findings, assessment, and plan of care. Objective - Vital Signs Vital signs: Vital Signs Temp 98.4 F 11/02/21 08:19 Pulse 70 11/02/21 08:19 Resp 18 11/02/21 08:19 BP 121/77 11/02/21 08:19 Pulse Ox 99 11/02/21 08:19 FiO2 Intake & Output 11/01/21 11/02/21 11/02/21 18:59 06:59 18:59 Intake Total 840 Balance 840 Intake: IV 600 Oral 240 Other: Voiding Method Toilet # Voids 1 - Labs CBC & Chem 7: 11/02/21 04:51 11/02/21 04:51 Labs: Abnormal Lab Results - Last 24 Hours (Table) 11/01/21 11/01/21 11/01/21 Range/Units 12:19 17:34 20:12 BUN (9-20) mg/dL Glucose (74-99) mg/dL POC Glucose (mg/dL) 186 H 237 H 249 H (70-110) mg/dL 11/02/21 11/02/21 Range/Units 04:51 07:42 BUN 22 H (9-20) mg/dL Glucose 250 H (74-99) mg/dL POC Glucose (mg/dL) 192 H (70-110) mg/dL
[2021-11-02] MEDS: NON FORMULARY DRUG (Empagliflozin [Jardiance] 25 MG Tablet) PO SCH (10:33)
[2021-11-02 12:51] LABS: Glucose,Whole Blood 241 mg/dL (70-110)
[2021-11-02] MEDS: HYDROcodone/APAP 5-325MG 1 EACH TAB PO PRN (13:30)
--- NOTE | 2021-11-02 20:58 | DS ---
DISCHARGE SUMMARY CHIEF COMPLAINT: Chest pain. HISTORY OF PRESENT ILLNESS AND PHYSICAL EXAMINATION: Details of this man's history and physical can be found in the initial workup. LABORATORY STUDIES: While he was in the hospital he had laboratory studies, details of which can be found in the laboratory section of his chart. COURSE IN THE HOSPITAL: After admission he continued to have anginal-type pain and he was eventually taken to the center medical and lab director, where he had dilatation and stenting of the RCA. However, the next day he continued to have the same pain. He was eventually taken back to the operating room. An attempt was made to open that graft on the right coronary artery slightly more. He was a little bit better after surgery with slightly less pain, and Cardiology felt that he could be discharged on November 02. He will go home on light activity about the house and he will make every effort that he can to lose weight and get his diabetes under control. We will see him in the office in several days. FINAL DIAGNOSIS: 1. Unstable angina pectoris. 2. Coronary artery disease. 3. Atherosclerotic cardiomyopathy with ejection fraction of 20%. 4. Chronic congestive heart failure. 5. Charcot feet. 6. Uncontrolled diabetes. 7. Obesity. OPERATIONS: Cardiac catheterization with stenting of the RCA and subsequent second attempt at opening the same artery. MMODL / IJN: [id number] /
== END 2021-11-02 16:09 | disposition home or self-care (01) | DRG 250 ==
LOC: EC 16:29 → 6NMEDSUR 17:29 → OBSVTOIN 10-30 09:28
PROVIDERS: ADMIT Family Medicine; ATTEND Family Medicine
PROC: B2111ZZ Fluoroscopy of Multiple Coronary Arteries using Low Osmolar Contrast (ICD-10-PCS; 2021-10-30)
PROC: 4A023N7 Measurement of Cardiac Sampling and Pressure, Left Heart, Percutaneous Approach (ICD-10-PCS; 2021-10-30)
PROC: 02703ZZ Dilation of Coronary Artery, One Artery, Percutaneous Approach (ICD-10-PCS; 2021-10-30 09:00)
PROC: B2111ZZ Fluoroscopy of Multiple Coronary Arteries using Low Osmolar Contrast (ICD-10-PCS; 2021-11-01)
PROC: 4A033BC Measurement of Arterial Pressure, Coronary, Percutaneous Approach (ICD-10-PCS; 2021-11-01)
PROC: 02703ZZ Dilation of Coronary Artery, One Artery, Percutaneous Approach (ICD-10-PCS; principal; 2021-11-01 10:20)
PROC: 4A023N7 Measurement of Cardiac Sampling and Pressure, Left Heart, Percutaneous Approach (ICD-10-PCS; 2021-11-01 10:20)
DX: T82.855A Stenosis of coronary artery stent, initial encounter (principal); I50.23 Acute on chronic systolic (congestive) heart failure; I25.110 Atherosclerotic heart disease of native coronary artery with unstable angina pectoris; Z68.41 Body mass index [BMI] 40.0-44.9, adult; E11.610 Type 2 diabetes mellitus with diabetic neuropathic arthropathy; E11.42 Type 2 diabetes mellitus with diabetic polyneuropathy; I11.0 Hypertensive heart disease with heart failure; F32.A Depression, unspecified; E11.65 Type 2 diabetes mellitus with hyperglycemia; E66.9 Obesity, unspecified; I25.82 Chronic total occlusion of coronary artery; I25.5 Ischemic cardiomyopathy; E78.5 Hyperlipidemia, unspecified; G47.33 Obstructive sleep apnea (adult) (pediatric); R01.1 Cardiac murmur, unspecified; G89.29 Other chronic pain; M54.9 Dorsalgia, unspecified; F41.9 Anxiety disorder, unspecified; R00.0 Tachycardia, unspecified; Y71.1 Therapeutic (nonsurgical) and rehabilitative cardiovascular devices associated with adverse incidents; I07.1 Rheumatic tricuspid insufficiency; Z79.899 Other long term (current) drug therapy; Z79.84 Long term (current) use of oral hypoglycemic drugs; Z79.4 Long term (current) use of insulin; Z79.02 Long term (current) use of antithrombotics/antiplatelets; Z79.82 Long term (current) use of aspirin; Z88.0 Allergy status to penicillin; I25.2 Old myocardial infarction; Z95.810 Presence of automatic (implantable) cardiac defibrillator; Z95.5 Presence of coronary angioplasty implant and graft; Z87.891 Personal history of nicotine dependence; Z82.49 Family history of ischemic heart disease and other diseases of the circulatory system; Z83.79 Family history of other diseases of the digestive system; Z81.1 Family history of alcohol abuse and dependence
CPT/HCPCS: 36415; 80048; 80053; 83735; 84484; 85025; 85610; 85730; 92920; 92978; 93005; 93458; 93571; 94760; 99285

== ENCOUNTER 2021-11-13 11:35 | Observation (INO) | payer OTHER ==
--- NOTE | 2021-11-13 12:18 | XR ---
EXAMINATION TYPE: XR chest 2V DATE OF EXAM: 11/13/2021 COMPARISON: 10/12/2021 INDICATION: Chest pain TECHNIQUE: Frontal and lateral views of the chest are obtained. FINDINGS: The heart size is normal. The pulmonary vasculature is normal. The lungs are clear. IMPRESSION: 1. No acute pulmonary process.
[2021-11-13 12:19] LABS: Prothrombin Time 10.5 sec (9.0-12.0)
[2021-11-13 12:25] LABS: ALT 26 U/L (4-49); AST 22 U/L (17-59); African American GFR (CKD) >90 (>60 ml/min/1.73 sqM); Albumin 4.3 g/dL (3.5-5.0); Alkaline Phosphatase 139 U/L (38-126); Anion Gap 13 mmol/L; Basophils # (A) 0.2 k/uL (0-0.2); Basophils % (A) 2 %; Blood Urea Nitrogen 18 mg/dL (9-20); Carbon Dioxide 21 mmol/L (22-30); Chloride 103 mmol/L (98-107); Eosinophils # (A) 0.2 k/uL (0-0.7); Eosinophils % (A) 2 %; Glucose 279 mg/dL (74-99); HCT 51.8 % (39.0-53.0); HGB 17.8 gm/dL (13.0-17.5); Lymphocytes % (A) 20 %; MCH 29.4 pg (25.0-35.0); MCHC 34.4 g/dL (31.0-37.0); MCV 85.3 fL (80.0-100.0); Mean Platelet Volume 7.7; Monocytes # (A) 0.6 k/uL (0-1.0); Monocytes % (A) 6 %; Neutrophils # (A) 6.7 k/uL (1.3-7.7); Neutrophils % (A) 68 %; Non-African American GFR(CKD) 88 (>60 ml/min/1.73 sqM); Platelet Count 249 k/uL (150-450); Potassium 3.7 mmol/L (3.5-5.1); RBC 6.07 m/uL (4.30-5.90); RDW 14.4 % (11.5-15.5); Sodium 137 mmol/L (137-145); Total Bilirubin 1.2 mg/dL (0.2-1.3); Total Protein 7.3 g/dL (6.3-8.2); WBC 9.9 k/uL (3.8-10.6)
[2021-11-13] MEDS ORDERED: fentaNYL (PF) 50 MCG/ML 2 ML AMP IVP STA (13:38)
[2021-11-13] MEDS ORDERED: ASPIRIN 81 MG PO STA (13:38)
[2021-11-13] MEDS ORDERED: NALOXONE 0.4 MG/ML 1 ML VIAL IV PRN (13:50)
--- NOTE | 2021-11-13 13:50 | ED ---
Chest Pain HPI - General Chief Complaint: Chest Pain Stated Complaint: Chest pain Time Seen by Provider: 11/13/21 11:45 Source: patient Mode of arrival: ambulatory Limitations: no limitations - History of Present Illness Initial Comments: 41-year-old male with past history of coronary artery disease, congestive heart failure, hypertension, hyperlipidemia, diabetes presents emergency department from Dr. Dan's office for chest pain. Patient was recently hospitalized last week for chest pain. Cardiac catheterization was performed and found to have an occlusion. They were unable to open the occlusion. He was hospitalized for several days and a second catheterization was performed where balloon angioplasty was completed of his RCA. Procedure was successful and the patient had improvement in his chest pain Patient follows with Dr. Hernandez. He went into Dr. Dan's office today for his follow-up visit. Began having chest pain in office. When he made mention of this to staff they directed him into the emergency department for further evaluation. Pain is located over the left side of his chest wall and radiating into his left arm. States the pain feels very familiar to the chest pain that he had last week. He denies fevers, chills or cough. No other alleviating, precipitating or mopping factors - Related Data Home Medications Medication Instructions Recorded Confirmed metFORMIN HCL [Glucophage] 1,000 mg PO DAILY 06/14/19 11/13/21 Furosemide [Lasix] 80 mg PO DAILY 07/25/20 11/13/21 HYDROcodone/APAP 5-325MG [[place] 1 tab PO Q6H PRN 03/05/21 11/13/21 5-325] Sacubitril/Valsartan [Entresto 24 1 tab PO BID 03/05/21 11/13/21 mg-26 mg Tablet] Dulaglutide [Trulicity] 4.5 mg SQ BEY 09/11/21 11/13/21 Metoprolol Succinate (ER) [Toprol 100 mg PO DAILY 09/11/21 11/13/21 XL] Spironolactone [Aldactone] 25 mg PO DAILY 09/11/21 11/13/21 Albuterol Sulfate [Ventolin HFA] 2 puff INHALATION RT-QID PRN 10/13/21 11/13/21 Atorvastatin [Lipitor] 80 mg PO DAILY 10/13/21 11/13/21 Empagliflozin [Jardiance] 25 mg PO DAILY 10/13/21 11/13/21 Previous Rx's Medication Instructions Recorded Ticagrelor [Brilinta] 90 mg PO BID 30 Days #60 tab 04/28/21 Aspirin 81 mg PO DAILY #30 07/15/21 Nitroglycerin Sl Tabs [Nitrostat] 0.4 mg SUBLINGUAL Q5M PRN #30 tab 07/15/21 Ezetimibe [Zetia] 10 mg PO DAILY #30 tab 10/13/21 Ranolazine [Ranexa] 500 mg PO BID 7 Days #14 tab 10/19/21 Insulin NPH Hum/Reg Insulin Hm 70 unit SQ DAILY #30 each 11/15/21 [humuLIN 70/30 Kwikpen] Insuln Asp Prt/Insulin Aspart 45 unit SQ HS #30 each 11/15/21 [NovoLOG MIX 70-30 VIAL] Potassium Chloride ER [K-Dur 20] 20 meq PO DAILY 30 Days #30 tab 11/15/21 Allergies Allergy/AdvReac Type Severity Reaction Status Date / Time Penicillins Allergy Unknown Verified 11/13/21 14:10 Childhood Review of Systems ROS Statement: Those systems with pertinent positive or pertinent negative responses have been documented in the HPI. ROS Other: All systems not noted in ROS Statement are negative. EKG Findings - EKG Comments: EKG Findings:: EKG demonstrates sinus tachycardia with a rate of 106. CA interval 184. QRS 133. QTC of 431. Left bundle-branch block. No acute ST segment elevations or depressions Past Medical History Past Medical History: Coronary Artery Disease (CAD), Chest Pain / Angina, Heart Failure, Diabetes Mellitus, Hyperlipidemia, Hypertension, Myocardial Infarction ([place]), Sleep Apnea/CPAP/BIPAP, Syncope Additional Past Medical History / Comment(s): CARDIAC HISTORY PER DR. HORAN. AICD. IDDM type II. Neuropathy bilateral feet. 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 Migraines. Chronic back pain. Last Myocardial Infarction Date:: 2015 History of Any Multi-Drug Resistant Organisms: None Reported Past Surgical History: AICD, Heart Catheterization, Heart Catheterization With Stent Additional Past Surgical History / Comment(s): 10/27/12 AICD, DFTs, PCI with 2 stents Past Anesthesia/Blood Transfusion Reactions: No Reported Reaction Date of Last Stent Placement:: 02/03/16 Type of Cardiac Device: AICD Device Placement Date:: 2012 Past Psychological History: Anxiety, Depression Smoking Status: Former smoker Past Alcohol Use History: None Reported Past Drug Use History: None Reported - Past Family History Mother Family Medical History: No Reported History Additional Family Medical History / Comment(s): Mother is healthy Brother(s) Family Medical History: Myocardial Infarction ([place]) Additional Family Medical History / Comment(s): Brother of a [place] at the age of 35yrs. Father Family Medical History: Liver Disease Additional Family Medical History / Comment(s): Father when pt was 19 yrs old from liver disease. He was an alcoholic. General Exam Limitations: no limitations General appearance: alert, in no apparent distress Head exam: Present: atraumatic, normocephalic, normal inspection Eye exam: Present: normal appearance, PERRL, EOMI. Absent: scleral icterus, conjunctival injection, periorbital swelling ENT exam: Present: normal exam, mucous membranes moist Neck exam: Present: normal inspection. Absent: tenderness, meningismus, lymphadenopathy Respiratory exam: Present: normal lung sounds bilaterally. Absent: respiratory distress, wheezes, rales, rhonchi, stridor Cardiovascular Exam: Present: normal rhythm, tachycardia, normal heart sounds. Absent: systolic murmur, diastolic murmur, rubs, gallop, clicks GI/Abdominal exam: Present: soft, normal bowel sounds. Absent: distended, tenderness, guarding, rebound, rigid Extremities exam: Present: normal inspection, full ROM, normal capillary refill. Absent: tenderness, pedal edema, joint swelling, calf tenderness Back exam: Present: normal inspection Neurological exam: Present: alert, oriented X3, CN II-XII intact Psychiatric exam: Present: normal affect, normal mood Skin exam: Present: warm, dry, intact, normal color. Absent: rash Course Vital Signs 11/13/21 11/13/21 11/13/21 11:36 11:50 12:00 Temperature 97.6 F Pulse Rate 108 H 104 H Pulse Rate [ 105 H Pulse Oximetery ] Respiratory 20 16 Rate Blood Pressure 128/86 107/84 O2 Sat by Pulse 98 96 Oximetry 11/13/21 11/13/21 12:30 14:00 Temperature Pulse Rate 95 93 Pulse Rate [ Pulse Oximetery ] Respiratory 21 18 Rate Blood Pressure 108/77 108/68 O2 Sat by Pulse 95 95 Oximetry Chest Pain MDM - MDM Upon arrival patient was placed in room 15. Thorough history and physical exam is performed. IV access established laboratory studies were conducted. Troponin is negative. BNP 125. Chest x-ray demonstrates no acute cardiopulmonary process. He was given an aspirin and a dose of final in the emergency department. Patient did take 2 nitro's before coming in. Patient's will be admitted to Dr. Dan who accepted admission. Cardiac he placed on consult. Disposition Clinical Impression: Chest pain Disposition: ADMITTED IP TO THIS HOSP Condition: Stable Is patient prescribed a controlled substance at d/c from ED?: No Time of Disposition: 13:50 Decision to Admit Reason: Admit from EC Decision Date: 11/13/21 Decision Time: 13:50
[2021-11-13 17:17] LABS: Glucose,Whole Blood 346 mg/dL (70-110)
[2021-11-13] MEDS: HYDROcodone/APAP 5-325MG 1 EACH TAB PO PRN ×2 (17:53→22:58)
[2021-11-13] MEDS: ALBUTEROL NEBULIZED 2.5 MG/3 ML INHALATION PRN (19:06)
[2021-11-13] MEDS: RANOLAZINE 500 MG TAB.ER.12H PO SCH (19:48)
[2021-11-13] MEDS: TICAGRELOR 90 MG TAB PO SCH (19:48)
[2021-11-13] MEDS: SACUBITRIL/VALSARTAN 24 MG-26 MG TABLET PO SCH (19:48)
[2021-11-13 20:39] LABS: Glucose,Whole Blood 259 mg/dL (70-110)
[2021-11-13] MEDS: INSULIN ASPART (NovoLOG) 100 UNIT/ML VIAL SQ SCH (20:56)
[2021-11-13] MEDS ORDERED: INSULN ASP PRT/INSULIN ASPART 100 UNIT/ML 10 ML VIAL SQ SCH (21:00)
[2021-11-14 07:23] LABS: Glucose,Whole Blood 154 mg/dL (70-110)
[2021-11-14] MEDS ORDERED: INSULN ASP PRT/INSULIN ASPART 100 UNIT/ML 10 ML VIAL SQ SCH ×2 (07:30→21:00)
[2021-11-14] MEDS: ALBUTEROL NEBULIZED 2.5 MG/3 ML INHALATION PRN ×4 (07:55→19:49)
[2021-11-14] MEDS: INSULIN ASPART (NovoLOG) 100 UNIT/ML VIAL SQ SCH ×4 (08:57→20:27)
[2021-11-14] MEDS: HYDROcodone/APAP 5-325MG 1 EACH TAB PO PRN ×3 (08:57→21:25)
[2021-11-14] MEDS: ASPIRIN 81 MG PO SCH (08:58)
[2021-11-14] MEDS: SPIRONOLACTONE 25 MG TAB PO SCH (08:59)
[2021-11-14] MEDS: ATORVASTATIN 80 MG TAB PO SCH (08:59)
[2021-11-14] MEDS: TICAGRELOR 90 MG TAB PO SCH ×2 (08:59→20:28)
[2021-11-14] MEDS: RANOLAZINE 500 MG TAB.ER.12H PO SCH ×2 (08:59→20:28)
[2021-11-14] MEDS: PATIENT'S OWN (Empagliflozin [Jardiance] 25 MG Tablet) PO SCH (08:59)
[2021-11-14] MEDS: EZETIMIBE 10 MG TAB PO SCH (08:59)
[2021-11-14] MEDS: FUROSEMIDE 80 MG TAB PO SCH (08:59)
[2021-11-14] MEDS: SACUBITRIL/VALSARTAN 24 MG-26 MG TABLET PO SCH ×2 (08:59→20:28)
[2021-11-14] MEDS: metFORMIN 500 MG TAB PO SCH (08:59)
[2021-11-14] MEDS: METOPROLOL SUCCINATE (ER) 100 MG TAB.ER.24H PO SCH (08:59)
[2021-11-14 09:08] LABS: Basophils # (A) 0.13 X 10*3/uL (0.00-0.10); Basophils % (A) 1.5 %; Eosinophils # (A) 0.33 X 10*3/uL (0.04-0.35); Eosinophils % (A) 3.7 %; HCT 47.4 % (39.6-50.0); HGB 15.6 g/dL (13.0-17.0); Immature Grans, Automated 0.8 %; Lymphocytes # (A) 2.62 X 10*3/uL (0.90-5.00); Lymphocytes % (A) 29.4 %; MCHC 32.9 g/dL (32.0-37.0); MCV 84.9 fL (80.0-97.0); Mean Platelet Volume 10.2 fL (9.5-12.2); Monocytes # (A) 0.82 X 10*3/uL (0.20-1.00); Monocytes % (A) 9.2 %; NRBC Per 100 WBC 0 /100 WBCS (0.0-0.0); Neutrophils # (A) 4.95 X 10*3/uL (1.80-7.70); Neutrophils % (A) 55.4 %; Platelet Count 239 X 10*3/uL (140-440); RBC 5.58 X 10*6/uL (4.40-5.60); RDW 13.8 % (11.5-14.5); WBC 8.92 X 10*3/uL (4.50-10.00)
[2021-11-14 09:15] LABS: African American GFR (CKD) 96.1 (60.0-200.0); Anion Gap 11.3 mmol/L (10.00-18.00); BUN/Creat Ratio 19.55 Ratio (12.00-20.00); Blood Urea Nitrogen 21.5 mg/dL (9.0-27.0); Calcium 9.2 mg/dL (8.7-10.3); Carbon Dioxide 25.7 mmol/L (20.0-27.5); Non-African American GFR(CKD) 82.9 (60.0-200.0); Potassium 3.3 mmol/L (3.5-5.5)
[2021-11-14 11:55] LABS: Glucose,Whole Blood 170 mg/dL (70-110)
--- NOTE | 2021-11-14 12:16 | XR ---
EXAMINATION TYPE: XR ribs LT DATE OF EXAM: 11/14/2021 COMPARISON: NONE HISTORY: Pain TECHNIQUE: 4 views submitted FINDINGS: Cardiac device noted as obscures portions of the rib cage. Visualized rib cage is intact. IMPRESSION: No acute displaced rib fracture
--- NOTE | 2021-11-14 12:17 | XR ---
EXAMINATION TYPE: XR chest 2V DATE OF EXAM: 11/14/2021 COMPARISON: 725.2 TECHNIQUE: PA and lateral views submitted. HISTORY: Chest pain FINDINGS: The lungs are clear and there is no pneumothorax, pleural effusion, or focal pneumonia. Heart size n ormal. Cardiac device seen. No overt failure. Limited inspiration. Biapical pleural thickening. IMPRESSION: 1. No acute process.
[2021-11-14 17:18] LABS: Glucose,Whole Blood 178 mg/dL (70-110)
--- NOTE | 2021-11-14 17:31 | CONS ---
CONSULTATION This is a 41-year-old gentleman history of CAD, ischemic cardiomyopathy with ICD. As recently as October 30, he underwent balloon angioplasty of a restenotic lesion in the RCA, very difficult tight lesion and 4.5 balloon was used to dilate this. Prior to that on October 27 also, he had angioplasty of the same vessel. Dr. Hernandez performed the procedure. He went to see his primary care physician, complained of sharp chest pain, came into the ER and was admitted. Pain is atypical, lasts about 30 seconds or less, randomly it occurs. Troponins and EKG are unremarkable. He is resting comfortably without symptoms. PAST MEDICAL HISTORY: Ischemic cardiomyopathy with multivessel PCI of known circumflex occlusion, RCA and had multiple stents and had a recent dilatation on October 30. Distal LAD has disease. He has hypertension and hyperlipidemia. He has also has obstructive sleep apnea and wears a CPAP. Please refer to the recent notes for other information. PHYSICAL EXAMINATION: On examination, blood pressure is 118/70, pulse rate is 70 per minute regular. HEENT unremarkable. Fundus was not examined by me. Neck is supple. No JVD. I do not hear a carotid bruit. Heart exam reveals S1, S2 heard normally distantly. No significant murmurs. Lungs are clear. Abdomen is soft, nontender. Lower extremities reveal normal pulses. No edema. Central nervous system is normal. EKG revealed sinus mechanism, IVCD, poor R-wave progression. No acute changes. IMPRESSION: 1. Atypical chest pain. 2. Known coronary artery disease with ischemic cardiomyopathy, recent balloon angioplasty of RCA. 3. History of hypertension. 4. Ischemic cardiomyopathy with ICD. 5. Type 2 diabetes mellitus. RECOMMENDATIONS: I am recommending that the patient can be discharged on current medications which include dual antiplatelet therapy and all his other medications. No intervention necessary. He will see Dr. Hernandez in 2 weeks. MMODL / IJN: [id number] /
--- NOTE | 2021-11-14 17:46 | PN ---
PROGRESS NOTE DATE OF SERVICE: 11/14/2021. CHIEF COMPLAINT: Chest pain. HISTORY OF PRESENT ILLNESS: This gentleman has been evaluated by Cardiology. His enzymes have been normal. He has been released by their service. He is still complaining of the pain in the anterior chest. It sounds more musculoskeletal than anything else. He has had no fever, chills, hemoptysis, etc. PHYSICAL EXAMINATION: Chest is clear. Cardiac exam is normal. Abdomen is soft, nontender. Chest is not particularly tender anteriorly. IMPRESSION: Anterior chest pain. PLAN: 1. Chest aches x-ray with bilateral rib detail. 2. Try to manage blood sugars to obtain better control before he is discharged. MMODL / IJN: [id number] /
--- NOTE | 2021-11-14 17:52 | HP ---
HISTORY AND PHYSICAL CHIEF COMPLAINT: Chest pain. HISTORY OF PRESENT ILLNESS: This is another admission for this 41-year-old white male. He has been in and out of the hospital frequently over the last several years and even more frequently recently. He recently was in and underwent another cardiac cath. He came to the office on the day of admission complaining of chest pain. He stated it felt typical for his angina, but historically it was atypical. He described it as an aching pain for 4 days in the anterior chest which was not affected by breathing, exercising, etc. His EKG in the office was unchanged. He was sent to the emergency room for troponins. They were also normal, but because of his severe cardiac history, he was admitted for reassessment by Cardiology. REVIEW OF SYSTEMS: He denied shortness of breath, diaphoresis, palpitations, syncope, abdominal pain, etc. Past medical history, family history, and personal and social histories are otherwise unremarkable and unchanged from his recent admitting discharge summaries. He is ALLERGIC TO PENICILLIN. He is on numerous medications, which can be found in the MAR. His sugars are always high and he has generally been a noncompliant patient, particularly with regard to his diabetes, diet, weight, etc. PHYSICAL EXAMINATION: Blood pressure 140/80, pulse of 119, respirations of 15. He is afebrile. In general he appeared to be obese, in no acute distress. Skin color was normal. Skin was warm and dry. Lymph nodes were not enlarged. Head, ears, eyes, nose, mouth and throat were normal. Neck veins could not be assessed. Chest was clear. Cardiac exam demonstrated sinus rhythm with no murmurs or extra sounds. The abdomen was soft, nontender and protuberant. Extremities were normal. Neurologically he is intact. He is admitted to the hospital with diagnoses: 1. Chest pain. 2. Extensive history of coronary artery disease. 3. Atherosclerotic cardiomyopathy. 4. Reduced ejection fraction or . 5. Uncontrolled diabetes mellitus. 6. Obesity. PLAN: 1. Bedrest. 2. IV fluids. 3. Serial EKGs and enzymes. 4. Cardiology consult. MMODL / IJN: [id number] /
[2021-11-14 20:22] LABS: Glucose,Whole Blood 258 mg/dL (70-110)
[2021-11-15 07:15] LABS: Glucose,Whole Blood 152 mg/dL (70-110)
[2021-11-15 07:25] VITALS: TEMP 97.5
[2021-11-15] MEDS ORDERED: INSULN ASP PRT/INSULIN ASPART 100 UNIT/ML 10 ML VIAL SQ SCH (07:30)
[2021-11-15] MEDS: INSULIN ASPART (NovoLOG) 100 UNIT/ML VIAL SQ SCH ×2 (07:48→12:49)
[2021-11-15] MEDS: ASPIRIN 81 MG PO SCH (07:49)
[2021-11-15] MEDS: RANOLAZINE 500 MG TAB.ER.12H PO SCH (07:49)
[2021-11-15] MEDS: METOPROLOL SUCCINATE (ER) 100 MG TAB.ER.24H PO SCH (07:49)
[2021-11-15] MEDS: metFORMIN 500 MG TAB PO SCH (07:49)
[2021-11-15] MEDS: EZETIMIBE 10 MG TAB PO SCH (07:49)
[2021-11-15] MEDS: TICAGRELOR 90 MG TAB PO SCH (07:49)
[2021-11-15] MEDS: SACUBITRIL/VALSARTAN 24 MG-26 MG TABLET PO SCH (07:49)
[2021-11-15] MEDS: ATORVASTATIN 80 MG TAB PO SCH (07:49)
[2021-11-15] MEDS: FUROSEMIDE 80 MG TAB PO SCH (07:50)
[2021-11-15] MEDS: PATIENT'S OWN (Empagliflozin [Jardiance] 25 MG Tablet) PO SCH (07:50)
[2021-11-15] MEDS: HYDROcodone/APAP 5-325MG 1 EACH TAB PO PRN ×2 (07:50→12:51)
[2021-11-15] MEDS: SPIRONOLACTONE 25 MG TAB PO SCH (07:50)
[2021-11-15] MEDS: ALBUTEROL NEBULIZED 2.5 MG/3 ML INHALATION PRN ×2 (08:31→11:32)
[2021-11-15] MEDS ORDERED: POTASSIUM CHLORIDE ER 20 MEQ TAB.ER PO SCH (09:00)
[2021-11-15 12:41] LABS: Glucose,Whole Blood 172 mg/dL (70-110)
[2021-11-15 14:41] VITALS: BP 107/70; PULSE 85; RESP 18
--- NOTE | 2021-11-17 12:18 | DS ---
DISCHARGE SUMMARY CHIEF COMPLAINT: Chest pain. HISTORY OF PRESENT ILLNESS AND PHYSICAL EXAMINATION: Details of this man's history and physical can be found in the initial workup. LABORATORY STUDIES: White he was in the hospital he had laboratory studies, details of which can be found in the laboratory section of his chart. COURSE IN THE HOSPITAL: After admission he was placed on bedrest, started on intravenous fluids and had serial EKGs and enzymes. He was seen by Cardiology. They did not feel that this represented cardiac pain. Further studies were done and they were normal. It was felt that he could be discharged. It was presumed that this was anterior chest wall pain. He will go home on his usual activity, diet and medication, and his insulin management will be increased to capture better control of his hypertension. FINAL DIAGNOSIS: 1. Chest pain, non-cardiac. 2. Costochondritis. 3. Coronary artery disease. 4. Atherosclerotic cardiomyopathy. 5. Chronic . 6. Uncontrolled diabetes. OPERATIONS: None. CONSULTATION: Cardiology. He is improved. MMODL / RADHAN: [id number] /
== END 2021-11-15 16:15 | disposition home or self-care (01) ==
LOC: EC 11:35 → 6NMEDSUR 14:03
PROVIDERS: ADMIT Family Medicine; ATTEND Family Medicine
DX: M94.0 Chondrocostal junction syndrome [Tietze] (principal); I25.5 Ischemic cardiomyopathy; E11.65 Type 2 diabetes mellitus with hyperglycemia; I25.119 Atherosclerotic heart disease of native coronary artery with unspecified angina pectoris; I11.0 Hypertensive heart disease with heart failure; I50.9 Heart failure, unspecified; E78.5 Hyperlipidemia, unspecified; E11.42 Type 2 diabetes mellitus with diabetic polyneuropathy; I44.7 Left bundle-branch block, unspecified; I25.2 Old myocardial infarction; G47.33 Obstructive sleep apnea (adult) (pediatric); G43.909 Migraine, unspecified, not intractable, without status migrainosus; G89.29 Other chronic pain; M54.9 Dorsalgia, unspecified; F32.A Depression, unspecified; F41.9 Anxiety disorder, unspecified; E66.9 Obesity, unspecified; Z68.41 Body mass index [BMI] 40.0-44.9, adult; Z91.19 Patient's noncompliance with other medical treatment and regimen; Z79.84 Long term (current) use of oral hypoglycemic drugs; Z79.02 Long term (current) use of antithrombotics/antiplatelets; Z79.82 Long term (current) use of aspirin; Z79.4 Long term (current) use of insulin; Z79.899 Other long term (current) drug therapy; Z88.0 Allergy status to penicillin; Z95.810 Presence of automatic (implantable) cardiac defibrillator; Z87.891 Personal history of nicotine dependence; Z95.5 Presence of coronary angioplasty implant and graft; Z98.890 Other specified postprocedural states; Z82.49 Family history of ischemic heart disease and other diseases of the circulatory system; Z81.1 Family history of alcohol abuse and dependence; Z83.79 Family history of other diseases of the digestive system
CPT/HCPCS: 96374; 99285; 36415; 94640 ×5; 93005; 85379; 83880; 80053; 80048; 84484; 85025 ×2; 85610; 85730; 71100; 71046 ×2; G0378 ×3; J3010

== ENCOUNTER 2021-12-22 03:49 | Observation (INO) | payer OTHER ==
[2021-12-22] MEDS ORDERED: ASPIRIN 81 MG PO STA (03:54)
--- NOTE | 2021-12-22 04:02 | ED ---
General Adult HPI - General Stated complaint: Chest Pain Time Seen by Provider: 12/22/21 03:54 Source: RN notes reviewed, old records reviewed - History of Present Illness Initial comments: Patient is a 41-year-old male with past medical history remarkable for CAD with multiple stents, heart failure, diabetes with an AICD who presents to the emergency Department complaining of sudden onset chest pain. This occurred approximately 30 minutes prior to me evaluating him. He was already here with his daughter for separate issue. States he suddenly started having chest pain. Nurses mild shortness of breath with it. Describes the chest pain as a sharp, achy sensation that radiates substernally towards his neck on both sides. This is the typical chest pain he experiences and identical to the previous chest pain he had upon last admission on 12/07/2021. States is on blood thinners. Denies any abdominal pain but does endorse mild nausea. Denies any headache. Denies any sweatiness. Denies lightheadedness. Is concerned regarding his heart. No known palliative or provocative factors.Denies any orthopnea. Denies PND. Denies worsening lower extremity edema.Is here frequently with similar complaints. Troponin is typically undetectable. Is chronically on pain medications for this pain, states the [place] is not helping. - Related Data Home Medications Medication Instructions Recorded Confirmed metFORMIN HCL [Glucophage] 1,000 mg PO DAILY 06/14/19 12/22/21 Furosemide [Lasix] 80 mg PO DAILY 07/25/20 12/22/21 HYDROcodone/APAP 5-325MG [[place] 1 tab PO Q6H PRN 03/05/21 12/22/21 5-325] Sacubitril/Valsartan [Entresto 24 1 tab PO BID 03/05/21 12/22/21 mg-26 mg Tablet] Dulaglutide [Trulicity] 4.5 mg SQ BEY 09/11/21 12/22/21 Spironolactone [Aldactone] 25 mg PO DAILY 09/11/21 12/22/21 Albuterol Sulfate [Ventolin HFA] 2 puff INHALATION RT-QID PRN 10/13/21 12/22/21 Atorvastatin [Lipitor] 80 mg PO DAILY 10/13/21 12/22/21 Empagliflozin [Jardiance] 25 mg PO DAILY 10/13/21 12/22/21 Insulin NPH Hum/Reg Insulin Hm 40 unit SQ HS 12/07/21 12/22/21 [humuLIN 70/30 Kwikpen] Insulin NPH Hum/Reg Insulin Hm 60 unit SQ DAILY 12/07/21 12/22/21 [humuLIN 70/30 Kwikpen] amLODIPine [Norvasc] 5 mg PO DAILY 12/07/21 12/22/21 Previous Rx's Medication Instructions Recorded Ticagrelor [Brilinta] 90 mg PO BID 30 Days #60 tab 04/28/21 Aspirin 81 mg PO DAILY #30 07/15/21 Nitroglycerin Sl Tabs [Nitrostat] 0.4 mg SUBLINGUAL Q5M PRN #30 tab 07/15/21 Potassium Chloride ER [K-Dur 20] 20 meq PO DAILY 30 Days #30 tab 11/15/21 Metoprolol Succinate (ER) [Toprol 50 mg PO DAILY@2100 #10 tab 12/12/21 XL] Allergies Allergy/AdvReac Type Severity Reaction Status Date / Time Penicillins Allergy Unknown Verified 12/22/21 06:56 Childhood Review of Systems ROS Statement: Those systems with pertinent positive or pertinent negative responses have been documented in the HPI. Review of Systems: CONST: Denies fever EYES: Denies blurry vision ENT: Denies nasal congestion C/V: Endorses chest pain RESP: Denies shortness of breath GI: Denies abdominal pain : Denies dysuria SKIN: Denies rash. MSK: Denies joint pain. NEURO: Denies headache ROS Other: All systems not noted in ROS Statement are negative. Past Medical History Past Medical History: Coronary Artery Disease (CAD), Chest Pain / Angina, Heart Failure, Diabetes Mellitus, Hyperlipidemia, Hypertension, Myocardial Infarction ([place]), Sleep Apnea/CPAP/BIPAP, Syncope Additional Past Medical History / Comment(s): CARDIAC HISTORY PER DR. HORAN. AICD. IDDM type II. Neuropathy bilateral feet. 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 Migraines. Chronic back pain. Last Myocardial Infarction Date:: 2015 History of Any Multi-Drug Resistant Organisms: None Reported Past Surgical History: AICD, Heart Catheterization, Heart Catheterization With Stent Additional Past Surgical History / Comment(s): 10/27/12 AICD, DFTs, PCI with 2 stents Past Anesthesia/Blood Transfusion Reactions: No Reported Reaction Date of Last Stent Placement:: 02/03/16 Type of Cardiac Device: AICD Device Placement Date:: 2012 Past Psychological History: Anxiety, Depression Smoking Status: Former smoker Past Alcohol Use History: None Reported Past Drug Use History: None Reported - Past Family History Mother Family Medical History: No Reported History Additional Family Medical History / Comment(s): Mother is healthy Brother(s) Family Medical History: Myocardial Infarction ([place]) Additional Family Medical History / Comment(s): Brother of a [place] at the age of 35yrs. Father Family Medical History: Liver Disease Additional Family Medical History / Comment(s): Father when pt was 19 yrs old from liver disease. He was an alcoholic. General Exam - General Exam Comments Initial Comments: General: Appears in no acute distress. HEAD: Normal with no signs of head trauma. EYES: PERRLA, EOMI, conjunctiva normal, no discharge. ENT: Hearing grossly intact, normal oropharynx. RESPIRATORY: Clear breath sounds bilaterally. No wheezes, rales, or rhonchi. C/V: Regular rate and rhythm. S1 and S2 auscultated, no edema, peripheral pulses 2+ and intact throughout. Chest pain nonreproducible on palpation. ABD: Abd is soft, nontender, nondistended EXT: Normal range of motion, no obvious deformity SKIN: No rashes or lesions observed on exposed skin. NEURO: Alert and oriented 4. No focal deficits. Course Vital Signs 12/22/21 12/22/21 12/22/21 04:12 04:58 05:10 Temperature 97.6 F Pulse Rate 86 86 98 Respiratory 16 18 18 Rate Blood Pressure 120/90 112/81 98/58 O2 Sat by Pulse 99 Oximetry 12/22/21 05:18 Temperature Pulse Rate 98 Respiratory 18 Rate Blood Pressure 104/68 O2 Sat by Pulse Oximetry Medical Decision Making - Medical Decision Making Based on the patient's presentation and physical exam, I'm concerned for possible cardiac etiology for his current symptoms. He has an extensive cardiac history. We'll obtain cardiac labs, EKG, chest x-ray. He'll be given an aspirin as well as nitroglycerin tablets. We will monitor for improvement in symptoms. Patient was in agreement with this plan. Vital signs are within normal limits. EKG shows no signs of acute ischemia and is unchanged from prior EKG from last month.Chest x-ray shows no acute cardiopulmonary process. Laboratory studies remarkable for a BNP within normal limits and that is negative. Vital signs remained within normal limits. Following nitroglycerin administration, patient's chest pain is unchanged. He states normally morphine improves the pain. Is requesting morphine at this time. We'll provide him with a dose. His chest pain is responding to morphine and is more comfortable at this time. I discussed with him that due to his cardiac history, as well as his acute chest pain I recommended admission to hospital. He was in agreement this plan. I paged Dr. Dan at 0600 to notify him of the admission, his PCP. Cardiology will be consulted. We will continue to trend the troponin. - Lab Data Result diagrams: 12/22/21 03:49 12/22/21 03:49 Lab Results 12/22/21 12/22/21 12/22/21 Range/Units 03:49 03:49 03:49 WBC 10.2 (3.8-10.6) k/uL RBC 5.68 (4.30-5.90) m/uL Hgb 16.8 (13.0-17.5) gm/dL Hct 48.8 (39.0-53.0) % MCV 86.0 (80.0-100.0) fL MCH 29.6 (25.0-35.0) pg MCHC 34.4 (31.0-37.0) g/dL RDW 14.4 (11.5-15.5) % Plt Count 226 (150-450) k/uL MPV 7.6 Neutrophils % 64 % Lymphocytes % 23 % Monocytes % 7 % Eosinophils % 3 % Basophils % 1 % Neutrophils # 6.5 (1.3-7.7) k/uL Lymphocytes # 2.3 (1.0-4.8) k/uL Monocytes # 0.7 (0-1.0) k/uL Eosinophils # 0.3 (0-0.7) k/uL Basophils # 0.1 (0-0.2) k/uL PT 9.7 (9.0-12.0) sec INR 0.9 (<1.2) APTT 23.0 (22.0-30.0) sec Sodium 138 (137-145) mmol/L Potassium 4.4 (3.5-5.1) mmol/L Chloride 98 (98-107) mmol/L Carbon Dioxide 25 (22-30) mmol/L Anion Gap 15 mmol/L BUN 23 H (9-20) mg/dL Creatinine 1.19 (0.66-1.25) mg/dL Est GFR (CKD-EPI)AfAm 87 (>60 ml/min/1.73 sqM) Est GFR (CKD-EPI)NonAf 76 (>60 ml/min/1.73 sqM) Glucose 189 H (74-99) mg/dL POC Glucose (mg/dL) (70-110) mg/dL POC Glu [employer] ID Calcium 9.6 (8.4-10.2) mg/dL Magnesium 2.3 (1.6-2.3) mg/dL Total Bilirubin 0.9 (0.2-1.3) mg/dL AST 21 (17-59) U/L ALT 23 (4-49) U/L Alkaline Phosphatase 121 (38-126) U/L Troponin I (0.000-0.034) ng/mL NT-Pro-B Natriuret Pep pg/mL Total Protein 7.4 (6.3-8.2) g/dL Albumin 4.4 (3.5-5.0) g/dL 12/22/21 12/22/21 12/22/21 Range/Units 03:49 03:49 04:40 WBC (3.8-10.6) k/uL RBC (4.30-5.90) m/uL Hgb (13.0-17.5) gm/dL Hct (39.0-53.0) % MCV (80.0-100.0) fL MCH (25.0-35.0) pg MCHC (31.0-37.0) g/dL RDW (11.5-15.5) % Plt Count (150-450) k/uL MPV Neutrophils % % Lymphocytes % % Monocytes % % Eosinophils % % Basophils % % Neutrophils # (1.3-7.7) k/uL Lymphocytes # (1.0-4.8) k/uL Monocytes # (0-1.0) k/uL Eosinophils # (0-0.7) k/uL Basophils # (0-0.2) k/uL PT (9.0-12.0) sec INR (<1.2) APTT (22.0-30.0) sec Sodium (137-145) mmol/L Potassium (3.5-5.1) mmol/L Chloride (98-107) mmol/L Carbon Dioxide (22-30) mmol/L Anion Gap mmol/L BUN (9-20) mg/dL Creatinine (0.66-1.25) mg/dL Est GFR (CKD-EPI)AfAm (>60 ml/min/1.73 sqM) Est GFR (CKD-EPI)NonAf (>60 ml/min/1.73 sqM) Glucose (74-99) mg/dL POC Glucose (mg/dL) 185 H (70-110) mg/dL POC Glu [employer] ID Mary Gonsales Calcium (8.4-10.2) mg/dL Magnesium (1.6-2.3) mg/dL Total Bilirubin (0.2-1.3) mg/dL AST (17-59) U/L ALT (4-49) U/L Alkaline Phosphatase (38-126) U/L Troponin I <0.012 (0.000-0.034) ng/mL NT-Pro-B Natriuret Pep 117 pg/mL Total Protein (6.3-8.2) g/dL Albumin (3.5-5.0) g/dL - EKG Data -: EKG Interpreted by Me EKG Comments: 12-lead Electrocardiogram Interpretation Note EKG was reviewed and interpreted by myself. 12-lead ECG performed at 0349 is interpreted by me as revealing normal sinus rhythm at a rate of 101 beats per minute. [place] is normal. CO interval is 192 ms, QRS durations 124 ms, QTc is 429 ms.. There were no ST or T wave abnormalities to suggest myocardial ischemia or injury. R wave progression across the precordium was satisfactory. By my interpretation this EKG is non-diagnostic for acute ischemia. Appears unchanged from prior EKG on 12/10/2021. Disposition Clinical Impression: Chronic chest pain Disposition: ADMITTED IP TO THIS HOSP Condition: Stable Time of Disposition: 05:35
[2021-12-22] MEDS ORDERED: SODIUM CHLORIDE 0.9% 500 ML 500 ML IV STA (04:04)
[2021-12-22 04:28] LABS: Basophils # (A) 0.1 k/uL (0-0.2); Basophils % (A) 1 %; Eosinophils # (A) 0.3 k/uL (0-0.7); Eosinophils % (A) 3 %; HCT 48.8 % (39.0-53.0); HGB 16.8 gm/dL (13.0-17.5); Lymphocytes # (A) 2.3 k/uL (1.0-4.8); Lymphocytes % (A) 23 %; MCH 29.6 pg (25.0-35.0); MCHC 34.4 g/dL (31.0-37.0); Mean Platelet Volume 7.6; Monocytes # (A) 0.7 k/uL (0-1.0); Monocytes % (A) 7 %; Neutrophils # (A) 6.5 k/uL (1.3-7.7); Neutrophils % (A) 64 %; Platelet Count 226 k/uL (150-450); RBC 5.68 m/uL (4.30-5.90); RDW 14.4 % (11.5-15.5); WBC 10.2 k/uL (3.8-10.6)
[2021-12-22] MEDS: NITROGLYCERIN SL TABS 0.4 MG TAB SUBLINGUAL PRN ×2 (04:31→05:00)
[2021-12-22 04:42] LABS: Glucose,Whole Blood 185 mg/dL (70-110)
[2021-12-22 05:02] LABS: Albumin 4.4 g/dL (3.5-5.0); Calcium 9.6 mg/dL (8.4-10.2); Magnesium 2.3 mg/dL (1.6-2.3); Potassium 4.4 mmol/L (3.5-5.1); Total Bilirubin 0.9 mg/dL (0.2-1.3); Total Protein 7.4 g/dL (6.3-8.2)
[2021-12-22 05:05] LABS: INR 0.9 (<1.2); Prothrombin Time 9.7 sec (9.0-12.0)
--- NOTE | 2021-12-22 05:07 | XR ---
EXAMINATION TYPE: XR chest 2V DATE OF EXAM: 12/22/2021 COMPARISON: 12/07/2021 HISTORY: Chest pain TECHNIQUE: FINDINGS: Heart and mediastinum are normal carotid lungs are clear. Diaphragm is normal. Bony thorax is intact IMPRESSION: Normal chest. No change.
[2021-12-22] MEDS ORDERED: MORPHINE SULFATE 4 MG/ML SYRINGE IVP STA ×2 (05:28→06:12)
[2021-12-22] MEDS ORDERED: MORPHINE SULFATE 4 MG/ML SYRINGE IV PRN (06:15)
[2021-12-22] MEDS ORDERED: NALOXONE 0.4 MG/ML 1 ML VIAL IV PRN (06:15)
[2021-12-22] MEDS ORDERED: ALBUTEROL NEBULIZED 2.5 MG/3 ML INHALATION PRN (08:00)
[2021-12-22 09:27] LABS: Glucose,Whole Blood 188 mg/dL (70-110)
[2021-12-22] MEDS: HEPARIN SODIUM,PORCINE/PF 5,000 UNIT/0.5 ML SYRINGE SQ SCH ×3 (10:18→22:52)
[2021-12-22] MEDS: POTASSIUM CHLORIDE ER 20 MEQ TAB.ER PO SCH (10:18)
[2021-12-22] MEDS: SPIRONOLACTONE 25 MG TAB PO SCH (10:18)
[2021-12-22] MEDS: INSULN ASP PRT/INSULIN ASPART 100 UNIT/ML 10 ML VIAL SQ SCH (10:18)
[2021-12-22] MEDS: ATORVASTATIN 80 MG TAB PO SCH (10:18)
[2021-12-22] MEDS: SACUBITRIL/VALSARTAN 24 MG-26 MG TABLET PO SCH ×2 (10:18→22:53)
[2021-12-22] MEDS: ASPIRIN 81 MG PO SCH (10:19)
[2021-12-22] MEDS: metFORMIN 500 MG TAB PO SCH (10:19)
[2021-12-22] MEDS: TICAGRELOR 90 MG TAB PO SCH ×2 (10:19→22:52)
[2021-12-22] MEDS: FUROSEMIDE 80 MG TAB PO SCH (10:19)
[2021-12-22] MEDS: NON FORMULARY DRUG (Empagliflozin [Jardiance] 25 MG Tablet) PO SCH (10:19)
[2021-12-22] MEDS: amLODIPine 5 MG TAB PO SCH (10:19)
[2021-12-22] MEDS ORDERED: NITROGLYCERIN SL TABS 0.4 MG TAB SUBLINGUAL PRN (10:34)
[2021-12-22 11:36] LABS: Glucose,Whole Blood 303 mg/dL (70-110)
[2021-12-22] MEDS: INSULIN ASPART (NovoLOG) 100 UNIT/ML VIAL SQ SCH ×3 (13:16→23:33)
--- NOTE | 2021-12-22 13:48 | P.CRDCN ---
History of Present Illness Consult date: 12/22/21 History of present illness: HISTORY OF PRESENT ILLNESS: This is a 41-year-old male with a past medical history significant for coronary artery disease with previous stenting, ischemic cardiomyopathy with previous AICD implantation, hypertension, hyperlipidemia, congestive heart failure, and diabetes. Patient follows in the office with Dr. Hernandez. We have been asked to see the patient in consultation for chest pain. Patient was examined this morning by Dr. Jensen. Apparently the patient was having chest pain and came to the emergency room for further evaluation. His chest pain had resolved. However as Dr. Jensen was evaluating the patient his chest pain reoccurred. * EKG reveals sinus mechanism with no signs of acute ischemia * Chest xray negative for acute process * Laboratory data: WBC 10.2. Hemoglobin 16.8. Platelet count 226. Sodium 138. Potassium 4.4. BUN 23. Creatinine 1.19. Troponin negative 3. * Current home cardiac medications include aspirin 81 mg daily, Lipitor 80 mg daily, Lasix 80 mg daily, metoprolol succinate 50 mg daily, Aldactone 25 mg daily, Norvasc 5 mg daily, Brilinta 90mg BID, and Entresto 24-26mg BID. * Most recent echocardiogram obtained in April 2021 revealed ejection fraction 5%, mild TR, global hypokinesis * Cardiac catheterization history: Most recently performed in October 2021 with balloon angioplasty of the RCA REVIEW OF SYSTEMS: At the time of my exam: CONSTITUTIONAL: Denies fever or chills. HEENT: Denies blurred vision, vision changes, or eye pain. Denies hemoptysis CARDIOVASCULAR: Denies chest pain. Denies orthopnea. Denies PND. Denies palpit ations RESPIRATORY: Denies shortness of breath. GASTROINTESTINAL: Denies abdominal pain. Denies nausea or vomiting. HEMATOLOGIC: Denies bleeding disorders. GENITOURINARY: Denies any blood in urine. SKIN: Denies pruitis. Denies rash. PHYSICAL EXAM: VITAL SIGNS: Reviewed. GENERAL: Well-developed in no acute distress. HEENT: Head is normocephalic. Pupils are equal, round. Sclerae anicteric. Mucous membranes of the mouth are moist. Neck supple. No JVD or thyromegaly LUNGS: Respirations even and unlabored. Lungs essentially clear to auscultation bilaterally. HEART: Regular rate and rhythm. S1 and S2 heard. ABDOMEN: Soft. Nondistended. Nontender. EXTREMITIES: Normal range of motion. No clubbing or cyanosis. Peripheral pulses intact. No lower extremity edema NEUROLOGIC: Awake and alert. Oriented x 3. ASSESSMENT: Acute on chronic chest pain Coronary artery disease with previous stenting Ischemic cardiomyopathy with previous AICD implantation Hypertension Hyperlipidemia Chronic congestive heart failure with reduced ejection fraction Diabetes PLAN: Dr. Jensen evaluated patient this morning. Dr. Jensen would like to monitor the patient for an additional 24 hours. If patient has no further episodes of chest pain, he may be discharged home tomorrow. Nurse practitioner note has been reviewed by physician. Signing provider agrees with the documented findings, assessment, and plan of care. Past Medical History Past Medical History: Coronary Artery Disease (CAD), Chest Pain / Angina, Heart Failure, Diabetes Mellitus, Hyperlipidemia, Hypertension, Myocardial Infarction (TN), Sleep Apnea/CPAP/BIPAP, Syncope Additional Past Medical History / Comment(s): CARDIAC HISTORY PER DR. HORAN. AICD. IDDM type II. Neuropathy bilateral feet. 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 Migraines. Chronic back pain. Last Myocardial Infarction Date:: 2015 History of Any Multi-Drug Resistant Organisms: None Reported Past Surgical History: AICD, Heart Catheterization, Heart Catheterization With Stent Additional Past Surgical History / Comment(s): 10/27/12 AICD, DFTs, PCI with 2 stents Past Anesthesia/Blood Transfusion Reactions: No Reported Reaction Date of Last Stent Placement:: 02/03/16 Type of Cardiac Device: AICD Device Placement Date:: 2012 Past Psychological History: Anxiety, Depression Additional Psychological History / Comment(s): Pt resides with his girlfriend Smoking Status: Never smoker Past Alcohol Use History: None Reported Additional Past Alcohol Use History / Comment(s): quit in 2019 Past Drug Use History: None Reported - Past Family History Mother Family Medical History: No Reported History Additional Family Medical History / Comment(s): Mother is healthy Brother(s) Family Medical History: Myocardial Infarction (TN) Additional Family Medical History / Comment(s): Brother of a TN at the age of 35yrs. Father Family Medical History: Liver Disease Additional Family Medical History / Comment(s): Father when pt was 19 yrs old from liver disease. He was an alcoholic. Medications and Allergies Home Medications Medication Instructions Recorded Confirmed Type metFORMIN HCL [Glucophage] 1,000 mg PO DAILY 06/14/19 12/22/21 History Furosemide [Lasix] 80 mg PO DAILY 07/25/20 12/22/21 History HYDROcodone/APAP 5-325MG [[place] 1 tab PO Q6H PRN 03/05/21 12/22/21 History 5-325] Sacubitril/Valsartan [Entresto 24 1 tab PO BID 03/05/21 12/22/21 History mg-26 mg Tablet] Ticagrelor [Brilinta] 90 mg PO BID 30 Days #60 tab 04/28/21 12/22/21 Rx Aspirin 81 mg PO DAILY #30 07/15/21 12/22/21 Rx Nitroglycerin Sl Tabs [Nitrostat] 0.4 mg SUBLINGUAL Q5M PRN #30 tab 07/15/21 12/22/21 Rx Dulaglutide [Trulicity] 4.5 mg SQ BEY 09/11/21 12/22/21 History Spironolactone [Aldactone] 25 mg PO DAILY 09/11/21 12/22/21 History Albuterol Sulfate [Ventolin HFA] 2 puff INHALATION RT-QID PRN 10/13/21 12/22/21 History Atorvastatin [Lipitor] 80 mg PO DAILY 10/13/21 12/22/21 History Empagliflozin [Jardiance] 25 mg PO DAILY 10/13/21 12/22/21 History Potassium Chloride ER [K-Dur 20] 20 meq PO DAILY 30 Days #30 tab 11/15/21 12/22/21 Rx Insulin NPH Hum/Reg Insulin Hm 40 unit SQ HS 12/07/21 12/22/21 History [humuLIN 70/30 Kwikpen] Insulin NPH Hum/Reg Insulin Hm 60 unit SQ DAILY 12/07/21 12/22/21 History [humuLIN 70/30 Kwikpen] amLODIPine [Norvasc] 5 mg PO DAILY 12/07/21 12/22/21 History Metoprolol Succinate (ER) [Toprol 50 mg PO DAILY@2100 #10 tab 12/12/21 12/22/21 Rx XL] Allergies Allergy/AdvReac Type Severity Reaction Status Date / Time Penicillins Allergy Unknown Verified 12/22/21 06:56 Childhood Physical Exam Vitals: Vital Signs Temp Pulse Pulse Resp BP BP Pulse Ox 12/22/21 09:19 97.6 F 92 14 116/84 98 12/22/21 05:18 98 18 104/68 12/22/21 05:10 98 18 98/58 12/22/21 04:58 86 18 112/81 12/22/21 04:12 97.6 F 86 16 120/90 99 Intake and Output 12/21/21 12/22/21 12/22/21 22:59 06:59 14:59 Other: Voiding Method Toilet Weight 145.15 kg 145.15 kg Results 12/22/21 03:49 12/22/21 03:49 Cardiac Enzymes 12/22/21 12/22/21 12/22/21 Range/Units 03:49 03:49 09:21 AST 21 (17-59) U/L Troponin I <0.012 <0.012 (0.000-0.034) ng/mL Coagulation 12/22/21 Range/Units 03:49 PT 9.7 (9.0-12.0) sec APTT 23.0 (22.0-30.0) sec CBC 12/22/21 Range/Units 03:49 WBC 10.2 (3.8-10.6) k/uL RBC 5.68 (4.30-5.90) m/uL Hgb 16.8 (13.0-17.5) gm/dL Hct 48.8 (39.0-53.0) % Plt Count 226 (150-450) k/uL Comprehensive Metabolic Panel 12/22/21 Range/Units 03:49 Sodium 138 (137-145) mmol/L Potassium 4.4 (3.5-5.1) mmol/L Chloride 98 (98-107) mmol/L Carbon Dioxide 25 (22-30) mmol/L BUN 23 H (9-20) mg/dL Creatinine 1.19 (0.66-1.25) mg/dL Glucose 189 H (74-99) mg/dL Calcium 9.6 (8.4-10.2) mg/dL AST 21 (17-59) U/L ALT 23 (4-49) U/L Alkaline Phosphatase 121 (38-126) U/L Total Protein 7.4 (6.3-8.2) g/dL Albumin 4.4 (3.5-5.0) g/dL Current Medications Generic Name Dose Route Start Last Admin Trade Name Freq PRN Reason Stop Dose Admin Hydrocodone Bitart/Acetaminophen 1 each 12/22/21 10:34 Hydrocodone/Apap 5-325mg 1 Each Tab PO Q6H PRN Pain Albuterol Sulfate 2.5 mg 12/22/21 08:00 Albuterol Nebulized 2.5 Mg/3 Ml INHALATION RT-QID PRN Shortness Of Breath Amlodipine Besylate 5 mg 12/22/21 09:00 12/22/21 10:19 Amlodipine 5 Mg Tab PO 5 mg DAILY KSENIA Administration Aspirin 81 mg 12/22/21 09:00 12/22/21 10:19 Aspirin 81 Mg PO 81 mg DAILY KSENIA Administration Atorvastatin Calcium 80 mg 12/22/21 09:00 12/22/21 10:18 Atorvastatin 80 Mg Tab PO 80 mg DAILY KSENIA Administration Furosemide 80 mg 12/22/21 09:00 12/22/21 10:19 Furosemide 80 Mg Tab PO 80 mg DAILY KSENIA Administration Heparin Sodium (Porcine) 5,000 unit 12/22/21 08:00 12/22/21 10:18 Heparin Sodium,Porcine/Pf 5,000 Unit/0.5 Ml Syringe SQ 5,000 unit Q8HR KSENIA Administration Insulin Aspart 40 unit 12/22/21 21:00 Insuln Asp Prt/Insulin Aspart 100 Unit/Ml 10 Ml Vial SQ HS KSENIA Insulin Aspart 60 unit 12/22/21 09:00 12/22/21 10:18 Insuln Asp Prt/Insulin Aspart 100 Unit/Ml 10 Ml Vial SQ 60 unit DAILY KSENIA Administration Metformin HCl 1,000 mg 12/22/21 09:00 12/22/21 10:19 Metformin 500 Mg Tab PO 1,000 mg DAILY KSENIA Administration Metoprolol Succinate 50 mg 12/22/21 21:00 Metoprolol Succinate (Er) 50 Mg Tab.Er.24h PO DAILY@2100 KSENIA Morphine Sulfate 4 mg 12/22/21 06:15 Morphine Sulfate 4 Mg/Ml Syringe IV Q4HR PRN Severe Pain (Scale 7 to 10) Naloxone HCl 0.2 mg 12/22/21 06:15 Naloxone 0.4 Mg/Ml 1 Ml Vial IV Q2M PRN Opioid Reversal Nitroglycerin 0.4 mg 12/22/21 04:04 12/22/21 05:00 Nitroglycerin Sl Tabs 0.4 Mg Tab SUBLINGUAL 0.4 mg Q5M PRN Administration Chest Pain Non-Formulary Medication 25 mg 12/22/21 09:00 12/22/21 10:19 Empagliflozin [Jardiance] PO Not Given DAILY KSENIA Non-Formulary Medication 4.5 mg 12/24/21 09:00 Dulaglutide [Trulicity] SQ Bey@0900 KSENIA Potassium Chloride 20 meq 12/22/21 09:00 12/22/21 10:18 Potassium Chloride Er 20 Meq Tab.Er PO 20 meq DAILY KSENIA Administration Sacubitril/Valsartan 1 each 12/22/21 09:00 12/22/21 10:18 Sacubitril/Valsartan 24 Mg-26 Mg Tablet PO 1 each BID KSENIA Administration Spironolactone 25 mg 12/22/21 09:00 12/22/21 10:18 Spironolactone 25 Mg Tab PO 25 mg DAILY KSENIA Administration Ticagrelor 90 mg 12/22/21 09:00 12/22/21 10:19 Ticagrelor 90 Mg Tab PO 90 mg BID KSENIA Administration Intake and Output 12/21/21 12/22/21 12/22/21 22:59 06:59 14:59 Other: Voiding Method Toilet Weight 145.15 kg 145.15 kg Patient Weight 12/23/21 06:59 Weight 145.15 kg 12/22/21 03:49 12/22/21 03:49
[2021-12-22 17:09] LABS: Glucose,Whole Blood 207 mg/dL (70-110)
[2021-12-22 20:34] LABS: Glucose,Whole Blood 286 mg/dL (70-110)
[2021-12-22] MEDS ORDERED: INSULN ASP PRT/INSULIN ASPART 100 UNIT/ML 10 ML VIAL SQ SCH (21:00)
[2021-12-22] MEDS ORDERED: METOPROLOL SUCCINATE (ER) 50 MG TAB.ER.24H PO SCH (21:00)
[2021-12-22] MEDS: HYDROcodone/APAP 5-325MG 1 EACH TAB PO PRN (22:56)
--- NOTE | 2021-12-23 04:18 | HP ---
HISTORY AND PHYSICAL CHIEF COMPLAINT: Chest pain. HISTORY OF PRESENT ILLNESS: This is another recent admission for this 41-year-old male. He just went home about a week or 10 days ago. Apparently, he was in the emergency room for one of his shoulder when he suddenly developed chest pain and requested to be seen. Troponin was negative. He was admitted for re-evaluation of serial troponins. REVIEW OF SYSTEMS: He has had no nausea, no vomiting, no diaphoresis or related issues of pain. Past medical history, family history, personal and social histories are unchanged from his discharge a week ago. PHYSICAL EXAMINATION: VITAL SIGNS: Blood pressure is 125/68 with a pulse of 81, respirations of 15, and he is afebrile. GENERAL: He appeared to be obese and in no acute distress. SKIN: Dry. LYMPH NODES: Not enlarged. HEENT: Head, ears, eyes, nose, and mouth were normal. NECK: Veins are not distended. CHEST: Clear. CARDIAC: Demonstrated sinus rhythm and no murmurs. ABDOMEN: Soft, nontender, and protuberant. EXTREMITIES: Normal. NEUROLOGIC: He is intact. IMPRESSION: 1. Unstable angina pectoris. 2. Coronary artery disease. 3. Atherosclerotic cardiomyopathy. 4. Poorly-controlled insulin-dependent diabetes mellitus. PLAN: 1. Bedrest. 2. IV fluids. 3. Serial EKGs and enzymes. MMODL / IJN: [id number] /
[2021-12-23 07:04] LABS: Glucose,Whole Blood 145 mg/dL (70-110)
[2021-12-23] MEDS: metFORMIN 500 MG TAB PO SCH (08:07)
[2021-12-23] MEDS: ATORVASTATIN 80 MG TAB PO SCH (08:08)
[2021-12-23] MEDS: POTASSIUM CHLORIDE ER 20 MEQ TAB.ER PO SCH (08:08)
[2021-12-23] MEDS: TICAGRELOR 90 MG TAB PO SCH (08:08)
[2021-12-23] MEDS: SPIRONOLACTONE 25 MG TAB PO SCH (08:08)
[2021-12-23] MEDS: SACUBITRIL/VALSARTAN 24 MG-26 MG TABLET PO SCH (08:08)
[2021-12-23] MEDS: amLODIPine 5 MG TAB PO SCH (08:08)
[2021-12-23] MEDS: FUROSEMIDE 80 MG TAB PO SCH (08:08)
[2021-12-23] MEDS: ASPIRIN 81 MG PO SCH (08:08)
[2021-12-23] MEDS: INSULIN ASPART (NovoLOG) 100 UNIT/ML VIAL SQ SCH (08:10)
[2021-12-23] MEDS: NON FORMULARY DRUG (Empagliflozin [Jardiance] 25 MG Tablet) PO SCH (08:10)
[2021-12-23 08:14] VITALS: BP 117/78; PULSE 80; RESP 17; TEMP 97.6
[2021-12-23] MEDS: HEPARIN SODIUM,PORCINE/PF 5,000 UNIT/0.5 ML SYRINGE SQ SCH (08:23)
[2021-12-23] MEDS: INSULN ASP PRT/INSULIN ASPART 100 UNIT/ML 10 ML VIAL SQ SCH (08:24)
[2021-12-23 08:34] LABS: Basophils # (A) 0.12 X 10*3/uL (0.00-0.10); Basophils % (A) 1.5 %; Eosinophils # (A) 0.34 X 10*3/uL (0.04-0.35); Eosinophils % (A) 4.2 %; HCT 46.2 % (39.6-50.0); HGB 15.7 g/dL (13.0-17.0); Immature Grans, Automated 0.7 %; MCH 29.1 pg (27.0-32.0); MCV 85.7 fL (80.0-97.0); Mean Platelet Volume 10.2 fL (9.5-12.2); Monocytes % (A) 9.8 %; NRBC Per 100 WBC 0 /100 WBCS (0.0-0.0); Neutrophils # (A) 4.21 X 10*3/uL (1.80-7.70); Neutrophils % (A) 51.8 %; Platelet Count 231 X 10*3/uL (140-440); RBC 5.39 X 10*6/uL (4.40-5.60); RDW 13.4 % (11.5-14.5); WBC 8.13 X 10*3/uL (4.50-10.00)
--- NOTE | 2021-12-23 09:01 | P.PN ---
Subjective Progress Note Date: 12/23/21 This is Constantine Heart NP, I'm dictating on behalf of Dr. Montoya's H&P and A&P. Patient was interviewed and examined. Patient is a pleasant 41-year-old male who initially presented to the hospital with acute on chronic chest pain. Patient has a significant history of chest pain. Today he states that he feels better, and states the pain is nowhere near what it was when he came in. Vital signs and laboratory values are within normal limits. He's been eating and drinking adequately. GENERAL: Well-appearing, well-nourished and in no acute distress. NECK: Supple without JVD or thyromegaly. LUNGS: Breath sounds clear to auscultation bilaterally. Respiration equal and unlabored. No wheezes, rales or rhonchi. HEART: Regular rate and rhythm without murmurs, rubs or gallops. S1 and S2 heard. EXTREMITIES: Normal range of motion, no edema. No clubbing or cyanosis. Peripheral pulses intact and strong. VITALS: Temp 97.6, pulse 80, blood pressure 117/78, O2 saturation 96% on room air TELEMETRY: Normal sinus rhythm LABS: White count 8.13, hemoglobin 15.7, platelets 231, sodium 138, potassium 4.4, B1 23, creatinine 1.19, magnesium 2.3, troponin 3-less than 0.012, BNP 117 IMPRESSION: 1. Acute on chronic chest pain 2. Coronary artery disease with previous stenting 3. Ischemic cardiomyopathy with previous AICD implantation 4. Hypertension 5. Hyperlipidemia 6. Chronic congestive heart failure with reduced ejection fraction 7. Diabetes PLAN: No obvious cardiac concerns at this time. Patient may be discharged from a cardiology standpoint. Please do not hesitate to reconsult us if necessary. Continue home cardiac medications as previously prescribed. Objective - Vital Signs Vital signs: Vital Signs Temp 97.6 F 12/23/21 07:00 Pulse 80 12/23/21 07:00 Resp 17 12/23/21 07:00 BP 117/78 12/23/21 07:00 Pulse Ox 96 12/23/21 07:00 FiO2 Intake & Output 12/22/21 12/23/21 12/23/21 18:59 06:59 18:59 Intake Total 600 Balance 600 Weight 145.15 kg Intake: Oral 600 Other: Voiding Method Toilet Toilet # Voids 1 3 - Labs CBC & Chem 7: 12/23/21 05:48 12/22/21 03:49 Labs: Abnormal Lab Results - Last 24 Hours (Table) 12/22/21 12/22/21 12/22/21 Range/Units 09:26 11:33 17:08 Immature Gran # (0.00-0.04) X 10*3/uL Basophils # (0.00-0.10) X 10*3/uL POC Glucose (mg/dL) 188 H 303 H 207 H (70-110) mg/dL 12/22/21 12/23/21 12/23/21 Range/Units 20:32 05:48 07:03 Immature Gran # 0.06 H (0.00-0.04) X 10*3/uL Basophils # 0.12 H (0.00-0.10) X 10*3/uL POC Glucose (mg/dL) 286 H 145 H (70-110) mg/dL
[2021-12-23 09:31] LABS: African American GFR (CKD) 96.1 (60.0-200.0); BUN/Creat Ratio 22.55 Ratio (12.00-20.00); Blood Urea Nitrogen 24.8 mg/dL (9.0-27.0); Calcium 8.8 mg/dL (8.7-10.3); Non-African American GFR(CKD) 82.9 (60.0-200.0); Potassium 4.1 mmol/L (3.5-5.5)
[2021-12-23] MEDS: HYDROcodone/APAP 5-325MG 1 EACH TAB PO PRN (11:45)
--- NOTE | 2021-12-23 13:23 | P.DS ---
Providers Date of admission: 12/22/21 06:15 Attending physician: Amrit Dan Consults: 12/22/21 06:15 Consult Physician Routine Consulting Provider: [facility] Consult Reason/Comments: acute on chronic chest pain Do you want consulting provider notified?: Yes, Notify in am Primary care physician: Amrit Dan [facility] Course: Patient with significant history of coronary artery disease and ischemic cardiomyopathy and AICD came in with compensative chest pain patient was evaluated by cardiology rule out a concurrent syndromes that his chest pain was deemed noncardiac his chest resolved and patient was cleared for discharge and patient is being discharged today. Patient is able to make at this time. PHYSICAL EXAMINATION: GENERAL: The patient is alert and oriented x3, not in any acute distress. Well developed, well nourished. HEENT: Pupils are round and equally reacting to light. EOMI. No scleral icterus. No conjunctival pallor. Normocephalic, atraumatic. No pharyngeal erythema. No thyromegaly. CARDIOVASCULAR: S1 and S2 present. No murmurs, rubs, or gallops. PULMONARY: Chest is clear to auscultation, no wheezing or crackles. ABDOMEN: Soft, nontender, nondistended, normoactive bowel sounds. No palpable organomegaly. MUSCULOSKELETAL: No joint swelling or deformity. EXTREMITIES: No cyanosis, clubbing, or pedal edema. NEUROLOGICAL: Gross neurological examination did not reveal any focal deficits. SKIN: No rashes. Assessment and plan For other medical problems and hospice physician please refer to H&P from his PCP from yesterday. Patient Condition at Discharge: Stable Plan - Discharge Summary Discharge Rx Participant: No New Discharge Prescriptions: Continue metFORMIN HCL [Glucophage] 1,000 mg PO DAILY Sacubitril/Valsartan [Entresto 24 mg-26 mg Tablet] 1 tab PO BID Aspirin 81 mg PO DAILY #30 Spironolactone [Aldactone] 25 mg PO DAILY Empagliflozin [Jardiance] 25 mg PO DAILY Atorvastatin [Lipitor] 80 mg PO DAILY Potassium Chloride ER [K-Dur 20] 20 meq PO DAILY 30 Days #30 tab Insulin NPH Hum/Reg Insulin Hm [humuLIN 70/30 Kwikpen] 60 unit SQ DAILY amLODIPine [Norvasc] 5 mg PO DAILY Furosemide [Lasix] 80 mg PO DAILY HYDROcodone/APAP 5-325MG [[place] 5-325] 1 tab PO Q6H PRN PRN Reason: Pain Ticagrelor [Brilinta] 90 mg PO BID 30 Days #60 tab Nitroglycerin Sl Tabs [Nitrostat] 0.4 mg SUBLINGUAL Q5M PRN #30 tab PRN Reason: Chest Pain Dulaglutide [Trulicity] 4.5 mg SQ BEY Albuterol Sulfate [Ventolin HFA] 2 puff INHALATION RT-QID PRN PRN Reason: Shortness Of Breath Insulin NPH Hum/Reg Insulin Hm [humuLIN 70/30 Kwikpen] 40 unit SQ HS Metoprolol Succinate (ER) [Toprol XL] 50 mg PO DAILY@2100 #10 tab Discharge Medication List metFORMIN HCL [Glucophage] 1,000 mg PO DAILY 06/14/19 [History] Furosemide [Lasix] 80 mg PO DAILY 07/25/20 [History] HYDROcodone/APAP 5-325MG [[place] 5-325] 1 tab PO Q6H PRN 03/05/21 [History] Sacubitril/Valsartan [Entresto 24 mg-26 mg Tablet] 1 tab PO BID 03/05/21 [History] Ticagrelor [Brilinta] 90 mg PO BID 30 Days #60 tab 04/28/21 [Rx] Aspirin 81 mg PO DAILY #30 07/15/21 [Rx] Nitroglycerin Sl Tabs [Nitrostat] 0.4 mg SUBLINGUAL Q5M PRN #30 tab 07/15/21 [Rx] Dulaglutide [Trulicity] 4.5 mg SQ BEY 09/11/21 [History] Spironolactone [Aldactone] 25 mg PO DAILY 09/11/21 [History] Albuterol Sulfate [Ventolin HFA] 2 puff INHALATION RT-QID PRN 10/13/21 [History] Atorvastatin [Lipitor] 80 mg PO DAILY 10/13/21 [History] Empagliflozin [Jardiance] 25 mg PO DAILY 10/13/21 [History] Potassium Chloride ER [K-Dur 20] 20 meq PO DAILY 30 Days #30 tab 11/15/21 [Rx] Insulin NPH Hum/Reg Insulin Hm [humuLIN 70/30 Kwikpen] 40 unit SQ HS 12/07/21 [History] Insulin NPH Hum/Reg Insulin Hm [humuLIN 70/30 Kwikpen] 60 unit SQ DAILY 12/07/21 [History] amLODIPine [Norvasc] 5 mg PO DAILY 12/07/21 [History] Metoprolol Succinate (ER) [Toprol XL] 50 mg PO DAILY@2100 #10 tab 12/12/21 [Rx] Follow up Appointment(s)/Referral(s): Amrit Dan MD [Primary Care Provider] - 1-2 Days Damion Hernandez MD [STAFF PHYSICIAN] - 1 Week Patient Instructions/Handouts: Chest Pain (DC) Discharge Disposition: HOME SELF-CARE
[2021-12-24] MEDS ORDERED: NON FORMULARY DRUG (Dulaglutide [Trulicity] 4.5 MG/0.5 ML Each) SQ SCH (09:00)
== END 2021-12-23 12:30 | disposition home or self-care (01) ==
LOC: EC 03:49 → 6NMEDSUR 06:15
PROVIDERS: ADMIT Family Medicine; ATTEND Family Medicine
DX: R07.89 Other chest pain (principal); G89.29 Other chronic pain; I25.5 Ischemic cardiomyopathy; E11.65 Type 2 diabetes mellitus with hyperglycemia; I25.110 Atherosclerotic heart disease of native coronary artery with unstable angina pectoris; I11.0 Hypertensive heart disease with heart failure; I50.22 Chronic systolic (congestive) heart failure; E11.42 Type 2 diabetes mellitus with diabetic polyneuropathy; E78.5 Hyperlipidemia, unspecified; I25.2 Old myocardial infarction; G47.33 Obstructive sleep apnea (adult) (pediatric); G43.909 Migraine, unspecified, not intractable, without status migrainosus; M54.9 Dorsalgia, unspecified; F32.A Depression, unspecified; F41.9 Anxiety disorder, unspecified; R11.0 Nausea; Z79.84 Long term (current) use of oral hypoglycemic drugs; Z79.4 Long term (current) use of insulin; Z79.02 Long term (current) use of antithrombotics/antiplatelets; Z79.82 Long term (current) use of aspirin; Z79.899 Other long term (current) drug therapy; Z88.0 Allergy status to penicillin; Z95.5 Presence of coronary angioplasty implant and graft; Z95.810 Presence of automatic (implantable) cardiac defibrillator; Z87.891 Personal history of nicotine dependence; Z98.890 Other specified postprocedural states; Z82.49 Family history of ischemic heart disease and other diseases of the circulatory system; Z81.1 Family history of alcohol abuse and dependence; Z83.79 Family history of other diseases of the digestive system
CPT/HCPCS: 96376; 96372 ×2; 96374; 99285; 36415; 94640; 93005; 83880; 80053; 80048; 83735; 84484; 85025 ×2; 85610; 85730; 71046; G0378 ×2; J2270; J1644 ×2

== ENCOUNTER 2022-01-05 16:52 | Emergency (ER) | payer OTHER ==
--- NOTE | 2022-01-05 17:32 | ED ---
General Adult HPI - General Chief complaint: Chest Pain Stated complaint: Chest pain, SOB Time Seen by Provider: 01/05/22 17:14 Source: patient Mode of arrival: ambulatory Limitations: no limitations - History of Present Illness Initial comments: Patient is a 41-year-old male presents the emergency room with complaints of chest pain which is a burning like sensation across the anterior aspect of his chest. He is also complaining of some shortness of breath which began approximately one week ago. He states that his shortness of breath is asso ciated with some generalized body aches and weakness along with fevers and chills upon the initial days of feeling short of breath with a cough. He reports he has not had any fevers in the last 48 hours. His T-max was 102.0. He states that on Saturday prior to feeling ill he was having a wedding ceremony in which she attended. He states that his chest pain is atypical in nature from his previous chest pain episodes he reports a chest heaviness in his shortness of breath that occurs even with rest. He reports that his cough is nonproductive. He denies any nausea , lower extremity edema or fevers or chills in the last 48 hours. He denies any known exposure to any upper respiratory illnesses including Covid. Patient has a significant past medical history of diabetes, CAD, ischemic cardiomyopathy with an AICD, hypertension and hyperlipidemia. 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 He denies any recent changes in his cardiovascular medications. - Related Data Home Medications Medication Instructions Recorded Confirmed metFORMIN HCL [Glucophage] 1,000 mg PO DAILY 06/14/19 12/22/21 Furosemide [Lasix] 80 mg PO DAILY 07/25/20 12/22/21 HYDROcodone/APAP 5-325MG [[place] 1 tab PO Q6H PRN 03/05/21 12/22/21 5-325] Sacubitril/Valsartan [Entresto 24 1 tab PO BID 03/05/21 12/22/21 mg-26 mg Tablet] Dulaglutide [Trulicity] 4.5 mg SQ BEY 09/11/21 12/22/21 Spironolactone [Aldactone] 25 mg PO DAILY 09/11/21 12/22/21 Albuterol Sulfate [Ventolin HFA] 2 puff INHALATION RT-QID PRN 10/13/21 12/22/21 Atorvastatin [Lipitor] 80 mg PO DAILY 10/13/21 12/22/21 Empagliflozin [Jardiance] 25 mg PO DAILY 10/13/21 12/22/21 Insulin NPH Hum/Reg Insulin Hm 40 unit SQ HS 12/07/21 12/22/21 [humuLIN 70/30 Kwikpen] Insulin NPH Hum/Reg Insulin Hm 60 unit SQ DAILY 12/07/21 12/22/21 [humuLIN 70/30 Kwikpen] amLODIPine [Norvasc] 5 mg PO DAILY 12/07/21 12/22/21 Previous Rx's Medication Instructions Recorded Ticagrelor [Brilinta] 90 mg PO BID 30 Days #60 tab 04/28/21 Aspirin 81 mg PO DAILY #30 07/15/21 Nitroglycerin Sl Tabs [Nitrostat] 0.4 mg SUBLINGUAL Q5M PRN #30 tab 07/15/21 Potassium Chloride ER [K-Dur 20] 20 meq PO DAILY 30 Days #30 tab 11/15/21 Metoprolol Succinate (ER) [Toprol 50 mg PO DAILY@2100 #10 tab 12/12/21 XL] Allergies Allergy/AdvReac Type Severity Reaction Status Date / Time Penicillins Allergy Unknown Verified 12/22/21 06:56 Childhood Review of Systems ROS Statement: Those systems with pertinent positive or pertinent negative responses have been documented in the HPI. ROS Other: All systems not noted in ROS Statement are negative. Past Medical History Past Medical History: Coronary Artery Disease (CAD), Chest Pain / Angina, Heart Failure, Diabetes Mellitus, Hyperlipidemia, Hypertension, Myocardial Infarction ([place]), Sleep Apnea/CPAP/BIPAP, Syncope Additional Past Medical History / Comment(s): CARDIAC HISTORY PER DR. HORAN. AICD. IDDM type II. Neuropathy bilateral feet. 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 Migraines. Chronic back pain. Last Myocardial Infarction Date:: 2015 History of Any Multi-Drug Resistant Organisms: None Reported Past Surgical History: AICD, Heart Catheterization, Heart Catheterization With Stent Additional Past Surgical History / Comment(s): 10/27/12 AICD, DFTs, PCI with 2 stents Past Anesthesia/Blood Transfusion Reactions: No Reported Reaction Date of Last Stent Placement:: 02/03/16 Type of Cardiac Device: AICD Device Placement Date:: 2012 Past Psychological History: Anxiety, Depression Smoking Status: Never smoker Past Alcohol Use History: None Reported Past Drug Use History: None Reported - Past Family History Mother Family Medical History: No Reported History Additional Family Medical History / Comment(s): Mother is healthy Brother(s) Family Medical History: Myocardial Infarction (MD) Additional Family Medical History / Comment(s): Brother of a [place] at the age of 35yrs. Father Family Medical History: Liver Disease Additional Family Medical History / Comment(s): Father when pt was 19 yrs old from liver disease. He was an alcoholic. General Exam Limitations: no limitations General appearance: alert, in no apparent distress, obese Head exam: Present: atraumatic, normocephalic, normal inspection Eye exam: Present: normal appearance, PERRL, EOMI. Absent: scleral icterus, conjunctival injection, periorbital swelling ENT exam: Present: normal exam, mucous membranes moist Neck exam: Present: normal inspection. Absent: tenderness, meningismus, lymphadenopathy Respiratory exam: Present: normal lung sounds bilaterally. Absent: respiratory distress, wheezes, rales, rhonchi, stridor, accessory muscle use Cardiovascular Exam: Present: regular rate, normal rhythm, normal heart sounds. Absent: systolic murmur, diastolic murmur, rubs, gallop, clicks GI/Abdominal exam: Present: soft, normal bowel sounds. Absent: distended, tenderness, guarding, rebound, rigid Rectal exam: Present: deferred Extremities exam: Present: normal inspection. Absent: pedal edema, joint swelling, calf tenderness Back exam: Present: normal inspection Neurological exam: Present: alert, oriented X3, CN II-XII intact Psychiatric exam: Present: normal affect, normal mood Skin exam: Present: warm, dry, intact, normal color. Absent: rash Course Vital Signs 01/05/22 16:58 Temperature 98 F Pulse Rate 100 Respiratory 20 Rate Blood Pressure 114/67 O2 Sat by Pulse 95 Oximetry Medical Decision Making - Medical Decision Making 40-year-old male presenting to the emergency room with complaints of atypical chest pain associated with cough and shortness of breath cough and shortness of breath preceded his chest pain which has only been going on since earlier today. Unfortunately to 2 significant past medical history of CAD, ischemic cardiomyopathy and AICD Will workup for ACS with EKG, troponin, proBNP, CBC and CMP. Will also check chest x-ray and EKG. Suspect upper respiratory infection rather that ACS. Denies any analgesic need at this time or supplemental oxygen needs. Electrolytes stable. CBC within normal limits. Troponin negative. EKG shows sinus rhythm with old infarct. Chest x-ray negative for acute cardiopulmonary process. Positive for Covid. Discussed symptomatic management with Tylenol as NSAIDs or contraindication with his current medication regimen. Due to his cu rrent medication regimen he is not a candidate for paxolvid. Advise quarantine for 5 days post positive testing. Encouraged to contact tracing. Will discharge home with supportive management and advised of return parameters. Case discussed with Dr. Osorio. - Lab Data Result diagrams: 01/05/22 17:32 01/05/22 17:32 Lab Results 01/05/22 01/05/22 01/05/22 Range/Units 17:32 17:32 17:32 WBC 5.9 (3.8-10.6) k/uL RBC 5.84 (4.30-5.90) m/uL Hgb 16.5 (13.0-17.5) gm/dL Hct 48.9 (39.0-53.0) % MCV 83.7 (80.0-100.0) fL MCH 28.2 (25.0-35.0) pg MCHC 33.7 (31.0-37.0) g/dL RDW 13.4 (11.5-15.5) % Plt Count 182 (150-450) k/uL MPV 8.1 Neutrophils % 64 % Lymphocytes % 23 % Monocytes % 8 % Eosinophils % 2 % Basophils % 2 % Neutrophils # 3.8 (1.3-7.7) k/uL Lymphocytes # 1.4 (1.0-4.8) k/uL Monocytes # 0.5 (0-1.0) k/uL Eosinophils # 0.1 (0-0.7) k/uL Basophils # 0.1 (0-0.2) k/uL PT 9.8 (9.0-12.0) sec INR 0.9 (<1.2) APTT 23.6 (22.0-30.0) sec Sodium 136 L (137-145) mmol/L Potassium 3.6 (3.5-5.1) mmol/L Chloride 96 L (98-107) mmol/L Carbon Dioxide 24 (22-30) mmol/L Anion Gap 16 mmol/L BUN 18 (9-20) mg/dL Creatinine 1.13 (0.66-1.25) mg/dL Est GFR (CKD-EPI)AfAm >90 (>60 ml/min/1.73 sqM) Est GFR (CKD-EPI)NonAf 81 (>60 ml/min/1.73 sqM) Glucose 194 H (74-99) mg/dL Calcium 8.4 (8.4-10.2) mg/dL Magnesium 1.8 (1.6-2.3) mg/dL Total Bilirubin 1.0 (0.2-1.3) mg/dL AST 24 (17-59) U/L ALT 24 (4-49) U/L Alkaline Phosphatase 110 (38-126) U/L Troponin I (0.000-0.034) ng/mL NT-Pro-B Natriuret Pep pg/mL Total Protein 6.8 (6.3-8.2) g/dL Albumin 4.2 (3.5-5.0) g/dL Coronavirus (PCR) (Not Detectd) 01/05/22 01/05/22 01/05/22 Range/Units 17:32 17:32 17:32 WBC (3.8-10.6) k/uL RBC (4.30-5.90) m/uL Hgb (13.0-17.5) gm/dL Hct (39.0-53.0) % MCV (80.0-100.0) fL MCH (25.0-35.0) pg MCHC (31.0-37.0) g/dL RDW (11.5-15.5) % Plt Count (150-450) k/uL MPV Neutrophils % % Lymphocytes % % Monocytes % % Eosinophils % % Basophils % % Neutrophils # (1.3-7.7) k/uL Lymphocytes # (1.0-4.8) k/uL Monocytes # (0-1.0) k/uL Eosinophils # (0-0.7) k/uL Basophils # (0-0.2) k/uL PT (9.0-12.0) sec INR (<1.2) APTT (22.0-30.0) sec Sodium (137-145) mmol/L Potassium (3.5-5.1) mmol/L Chloride (98-107) mmol/L Carbon Dioxide (22-30) mmol/L Anion Gap mmol/L BUN (9-20) mg/dL Creatinine (0.66-1.25) mg/dL Est GFR (CKD-EPI)AfAm (>60 ml/min/1.73 sqM) Est GFR (CKD-EPI)NonAf (>60 ml/min/1.73 sqM) Glucose (74-99) mg/dL Calcium (8.4-10.2) mg/dL Magnesium (1.6-2.3) mg/dL Total Bilirubin (0.2-1.3) mg/dL AST (17-59) U/L ALT (4-49) U/L Alkaline Phosphatase (38-126) U/L Troponin I <0.012 (0.000-0.034) ng/mL NT-Pro-B Natriuret Pep 86 pg/mL Total Protein (6.3-8.2) g/dL Albumin (3.5-5.0) g/dL Coronavirus (PCR) Detected A (Not Detectd) - Radiology Data Radiology results: report reviewed, image reviewed Chest x-ray two-view shows no acute cardiopulmonary process Disposition Clinical Impression: COVID Disposition: HOME SELF-CARE Condition: Stable Instructions (If sedation given, give patient instructions): COVID-19 (Coronavirus Disease 2019) (ED) Additional Instructions: Please quarantine for 5 days after testing positive and restart quarantine if symptoms worsen. Please utilize Tylenol as needed for fevers and pain. Taking vitamin C, Zinc, vitamin D 50 mcg, and melatonin may help symptom recovery. Please return to the Emergency Department if symptoms worsen or any other concerns. Follow-up with your primary care provider after quarantine is complete. Is patient prescribed a controlled substance at d/c from ED?: No Referrals: Amrit Dan MD [Primary Care Provider] - 1-2 days Time of Disposition: 18:31
[2022-01-05 17:48] LABS: Basophils # (A) 0.1 k/uL (0-0.2); Basophils % (A) 2 %; Eosinophils # (A) 0.1 k/uL (0-0.7); Eosinophils % (A) 2 %; HCT 48.9 % (39.0-53.0); HGB 16.5 gm/dL (13.0-17.5); Lymphocytes # (A) 1.4 k/uL (1.0-4.8); Lymphocytes % (A) 23 %; MCH 28.2 pg (25.0-35.0); MCHC 33.7 g/dL (31.0-37.0); MCV 83.7 fL (80.0-100.0); Mean Platelet Volume 8.1; Monocytes # (A) 0.5 k/uL (0-1.0); Monocytes % (A) 8 %; Neutrophils # (A) 3.8 k/uL (1.3-7.7); Neutrophils % (A) 64 %; Platelet Count 182 k/uL (150-450); RBC 5.84 m/uL (4.30-5.90); RDW 13.4 % (11.5-15.5); WBC 5.9 k/uL (3.8-10.6)
[2022-01-05 18:04] LABS: ALT 24 U/L (4-49); AST 24 U/L (17-59); African American GFR (CKD) >90 (>60 ml/min/1.73 sqM); Albumin 4.2 g/dL (3.5-5.0); Alkaline Phosphatase 110 U/L (38-126); Anion Gap 16 mmol/L; Blood Urea Nitrogen 18 mg/dL (9-20); Calcium 8.4 mg/dL (8.4-10.2); Carbon Dioxide 24 mmol/L (22-30); Chloride 96 mmol/L (98-107); Glucose 194 mg/dL (74-99); Magnesium 1.8 mg/dL (1.6-2.3); Non-African American GFR(CKD) 81 (>60 ml/min/1.73 sqM); Potassium 3.6 mmol/L (3.5-5.1); Sodium 136 mmol/L (137-145); Total Protein 6.8 g/dL (6.3-8.2)
[2022-01-05 18:06] LABS: INR 0.9 (<1.2); Partial Thromboplastin Time 23.6 sec (22.0-30.0); Prothrombin Time 9.8 sec (9.0-12.0)
--- NOTE | 2022-01-05 18:06 | XR ---
EXAMINATION TYPE: XR chest 2V DATE OF EXAM: 01/05/2022 COMPARISON: 12/22/2021 HISTORY: Chest pain TECHNIQUE: FINDINGS: Heart and mediastinum are normal. Lungs are clear of infiltrate. There is left axillary pac emaker. No pleural effusion. There are chest leads. IMPRESSION: No active cardiopulmonary disease. No change.
[2022-01-05 19:07] VITALS: BP 113/81; PULSE 85; RESP 16; TEMP 98.6
== END 2022-01-05 19:09 | disposition home or self-care (01) ==
LOC: EC 16:52
DX: U07.1 COVID-19 (principal); I25.10 Atherosclerotic heart disease of native coronary artery without angina pectoris; I11.0 Hypertensive heart disease with heart failure; I50.9 Heart failure, unspecified; E11.9 Type 2 diabetes mellitus without complications; I25.2 Old myocardial infarction; F41.9 Anxiety disorder, unspecified; F32.A Depression, unspecified; Z88.0 Allergy status to penicillin; Z79.82 Long term (current) use of aspirin; Z79.4 Long term (current) use of insulin; Z79.51 Long term (current) use of inhaled steroids; Z79.84 Long term (current) use of oral hypoglycemic drugs; Z79.899 Other long term (current) drug therapy
CPT/HCPCS: 36415; 71046; 80053; 83735; 83880; 84484; 85025; 85610; 85730; 87635; 93005; 99285

== ENCOUNTER 2022-01-08 22:01 | Emergency (ER) | payer OTHER ==
[2022-01-08 22:05] VITALS: TEMP 98.2
--- NOTE | 2022-01-09 02:14 | ED ---
General Adult HPI - General Source: patient, RN notes reviewed Mode of arrival: ambulatory Limitations: no limitations <Scott Stephens - Last Filed: 01/09/22 04:50> <Severino Lance - Last Filed: 01/09/22 07:01> - General Chief complaint: Chest Pain Stated complaint: Chest Pain,SOB Time Seen by Provider: 01/09/22 02:00 - History of Present Illness Initial comments: This is a pleasant 41-year-old male with a history of multiple medical comorbidities. This includes cardiac disease and insulin-dependent type 2 diabetes mellitus. Patient presents to the emergency room today complaining of chest discomfort., shortness of breath, cough, and fever. Patient was seen here on the 16 of this month and was diagnosed with COVID-19.. However is not taking this in several hours. Patient states he was told to come back if symptoms worsened. Patient also complaining of generalized body aches in addition to the above chief complaints. positive headachee, positive fever or chills, no changes in vision or hearing, no sore throat or difficulty with speech, no neck pain, positive chest pain or shortness of breath, no abdominal pain, no nausea or vomiting, no changes in urination or bowel movements, no numbness or tingling, no extremity pain, no skin rashes or lesions. positive myalgias Past medical, surgical, social, and family history reviewed. (Scott Stephens) - Related Data Home Medications Medication Instructions Recorded Confirmed metFORMIN HCL [Glucophage] 1,000 mg PO DAILY 06/14/19 12/22/21 Furosemide [Lasix] 80 mg PO DAILY 07/25/20 12/22/21 HYDROcodone/APAP 5-325MG [[place] 1 tab PO Q6H PRN 03/05/21 12/22/21 5-325] Sacubitril/Valsartan [Entresto 24 1 tab PO BID 03/05/21 12/22/21 mg-26 mg Tablet] Dulaglutide [Trulicity] 4.5 mg SQ BEY 09/11/21 12/22/21 Spironolactone [Aldactone] 25 mg PO DAILY 09/11/21 12/22/21 Albuterol Sulfate [Ventolin HFA] 2 puff INHALATION RT-QID PRN 10/13/21 12/22/21 Atorvastatin [Lipitor] 80 mg PO DAILY 10/13/21 12/22/21 Empagliflozin [Jardiance] 25 mg PO DAILY 10/13/21 12/22/21 Insulin NPH Hum/Reg Insulin Hm 40 unit SQ HS 12/07/21 12/22/21 [humuLIN 70/30 Kwikpen] Insulin NPH Hum/Reg Insulin Hm 60 unit SQ DAILY 12/07/21 12/22/21 [humuLIN 70/30 Kwikpen] amLODIPine [Norvasc] 5 mg PO DAILY 12/07/21 12/22/21 Previous Rx's Medication Instructions Recorded Ticagrelor [Brilinta] 90 mg PO BID 30 Days #60 tab 04/28/21 Aspirin 81 mg PO DAILY #30 07/15/21 Nitroglycerin Sl Tabs [Nitrostat] 0.4 mg SUBLINGUAL Q5M PRN #30 tab 07/15/21 Potassium Chloride ER [K-Dur 20] 20 meq PO DAILY 30 Days #30 tab 11/15/21 Metoprolol Succinate (ER) [Toprol 50 mg PO DAILY@2100 #10 tab 12/12/21 XL] Allergies Allergy/AdvReac Type Severity Reaction Status Date / Time Penicillins Allergy Unknown Verified 01/08/22 22:05 Childhood Review of Systems ROS Other: All systems not noted in ROS Statement are negative. <Scott Stephens - Last Filed: 01/09/22 04:50> ROS Other: All systems not noted in ROS Statement are negative. <Severino Lance - Last Filed: 01/09/22 07:01> ROS Statement: Those systems with pertinent positive or pertinent negative responses have been documented in the HPI. Past Medical History Past Medical History: Coronary Artery Disease (CAD), Chest Pain / Angina, Heart Failure, Diabetes Mellitus, Hyperlipidemia, Hypertension, Myocardial Infarction ([place]), Sleep Apnea/CPAP/BIPAP, Syncope Additional Past Medical History / Comment(s): CARDIAC HISTORY PER DR. HORAN. AICD. IDDM type II. Neuropathy bilateral feet. 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 Migraines. Chronic back pain. Last Myocardial Infarction Date:: 2015 History of Any Multi-Drug Resistant Organisms: None Reported Past Surgical History: AICD, Heart Catheterization, Heart Catheterization With Stent Additional Past Surgical History / Comment(s): 10/27/12 AICD, DFTs, PCI with 2 stents Past Anesthesia/Blood Transfusion Reactions: No Reported Reaction Date of Last Stent Placement:: 02/03/16 Type of Cardiac Device: AICD Device Placement Date:: 2012 Past Psychological History: Anxiety, Depression Smoking Status: Never smoker Past Alcohol Use History: None Reported Past Drug Use History: None Reported - Past Family History Mother Family Medical History: No Reported History Additional Family Medical History / Comment(s): Mother is healthy Brother(s) Family Medical History: Myocardial Infarction ([place]) Additional Family Medical History / Comment(s): Brother of a [place] at the age of 35yrs. Father Family Medical History: Liver Disease Additional Family Medical History / Comment(s): Father when pt was 19 yrs old from liver disease. He was an alcoholic. <AngeloScott - Last Filed: 01/09/22 04:50> General Exam Limitations: no limitations General appearance: obese Head exam: Present: atraumatic, normocephalic, normal inspection Eye exam: Present: normal appearance, PERRL, EOMI. Absent: scleral icterus, conjunctival injection, periorbital swelling ENT exam: Present: normal exam, normal oropharynx, mucous membranes moist, normal external ear exam. Absent: mucous membranes dry Neck exam: Present: normal inspection, full ROM. Absent: tenderness, meningismus, lymphadenopathy Respiratory exam: Present: normal lung sounds bilaterally. Absent: respiratory distress, wheezes, rales, rhonchi, stridor Cardiovascular Exam: Present: regular rate, normal rhythm, normal heart sounds. Absent: systolic murmur, diastolic murmur, rubs, gallop, clicks GI/Abdominal exam: Present: soft, normal bowel sounds. Absent: distended, tenderness, guarding, rebound, rigid Extremities exam: Present: normal inspection, full ROM, normal capillary refill. Absent: tenderness, pedal edema, joint swelling, calf tenderness Back exam: Present: normal inspection Neurological exam: Present: alert, oriented X3, CN II-XII intact Psychiatric exam: Present: normal affect, normal mood Skin exam: Present: warm, dry, intact, normal color. Absent: rash <AngeloScott - Last Filed: 01/09/22 04:50> - General Exam Comments Initial Comments: Patient does not appear to be in a significant distress. Cranial nerves II through XII grossly intact. Patient is alert 4. No respiratory distress. Does not appear to be ill or toxic. (AngeloScott) Course <AngeloScott - Last Filed: 01/09/22 04:50> <Severino Lance - Last Filed: 01/09/22 07:01> Vital Signs 01/08/22 01/09/22 01/09/22 22:03 05:43 06:12 Temperature 98.2 F Pulse Rate 109 H 93 Respiratory 20 16 18 Rate Blood Pressure 143/83 125/82 O2 Sat by Pulse 99 98 Oximetry - Reevaluation(s) Reevaluation #1: 01/09/22 04:48 Medical record is reviewed Patient essentially unchanged. Symptoms consistent with COVID-19. Patient is informed of results and questions answered Patient in no distress (AngeloScott) Reevaluation #2: 01/09/22 07:00 Patient feels well, no significant current symptoms (Severino Lance) EKG Findings - EKG Comments: EKG Findings:: EKG done at 2207 reveals sinus tachycardia with right axis deviation. Rate 109, normal intervals and QRS duration is 129 ms. This was whined on the previous EKG patient has evidence of one ectopic beat. No definitive ST elevation or ST. read by the ED attending physician. <AngeloScott - Last Filed: 01/09/22 04:50> Medical Decision Making - Lab Data Result diagrams: 01/09/22 02:21 01/09/22 02:21 <Scott Stephens - Last Filed: 01/09/22 04:50> - Lab Data Result diagrams: 01/09/22 02:21 01/09/22 02:21 - Radiology Data Radiology results: report reviewed (Chest x-rays negative for acute disease), image reviewed <Severino Lance - Last Filed: 01/09/22 07:01> - Medical Decision Making I believe most of the patient's symptomology is fully explained by COVID-19 infection. However given the patient's history we did order a cardiopulmonary workup Patient was given acetaminophen here. Patienthad no adventitious lung sounds. The case was discussed in detail with ED attending physician. Presentation, findings, treatment plan discussed in detail. Discussed quarantine measures. Discussed conservative measures. All questions answered. The case was discussed in detail with ED attending physician. Presentation, findings, treatment plan discussed in detail. Patient was told to return to the ER for any signs or symptoms worsen. Told to return immediately if any other problems arise. All questions answered. Treatment plan discussed. Patient in agreement Every effort has been made to ensure accuracy of this dictation. However, due to the limitations of electronic medical records and dictation devices, errors in charting still occur. Patient will be endorsed to the ED attending physician at 4:45 AM for further evaluation and disposition. (Scott Stephens) 41 male positive coronavirus patient diagnosed with persistent coronavirus, patient can be discharged home (Severino Lance) - Lab Data Lab Results 01/09/22 01/09/22 01/09/22 Range/Units 02:21 02:21 02:21 WBC 7.5 (3.8-10.6) k/uL RBC 6.20 H (4.30-5.90) m/uL Hgb 17.5 (13.0-17.5) gm/dL Hct 51.5 (39.0-53.0) % MCV 83.0 (80.0-100.0) fL MCH 28.2 (25.0-35.0) pg MCHC 33.9 (31.0-37.0) g/dL RDW 13.5 (11.5-15.5) % Plt Count 222 (150-450) k/uL MPV 7.7 Neutrophils % 59 % Lymphocytes % 30 % Monocytes % 7 % Eosinophils % 1 % Basophils % 1 % Neutrophils # 4.4 (1.3-7.7) k/uL Lymphocytes # 2.2 (1.0-4.8) k/uL Monocytes # 0.5 (0-1.0) k/uL Eosinophils # 0.1 (0-0.7) k/uL Basophils # 0.1 (0-0.2) k/uL D-Dimer (<0.60) mg/L FEU Sodium 136 L (137-145) mmol/L Potassium 3.9 (3.5-5.1) mmol/L Chloride 98 (98-107) mmol/L Carbon Dioxide 21 L (22-30) mmol/L Anion Gap 17 mmol/L BUN 23 H (9-20) mg/dL Creatinine 1.11 (0.66-1.25) mg/dL Est GFR (CKD-EPI)AfAm >90 (>60 ml/min/1.73 sqM) Est GFR (CKD-EPI)NonAf 82 (>60 ml/min/1.73 sqM) Glucose 154 H (74-99) mg/dL Calcium 9.0 (8.4-10.2) mg/dL Magnesium 2.1 (1.6-2.3) mg/dL Total Bilirubin 1.3 (0.2-1.3) mg/dL AST 24 (17-59) U/L ALT 21 (4-49) U/L Alkaline Phosphatase 113 (38-126) U/L Troponin I <0.012 (0.000-0.034) ng/mL NT-Pro-B Natriuret Pep pg/mL Total Protein 7.3 (6.3-8.2) g/dL Albumin 4.5 (3.5-5.0) g/dL 01/09/22 01/09/22 Range/Units 02:21 04:24 WBC (3.8-10.6) k/uL RBC (4.30-5.90) m/uL Hgb (13.0-17.5) gm/dL Hct (39.0-53.0) % MCV (80.0-100.0) fL MCH (25.0-35.0) pg MCHC (31.0-37.0) g/dL RDW (11.5-15.5) % Plt Count (150-450) k/uL MPV Neutrophils % % Lymphocytes % % Monocytes % % Eosinophils % % Basophils % % Neutrophils # (1.3-7.7) k/uL Lymphocytes # (1.0-4.8) k/uL Monocytes # (0-1.0) k/uL Eosinophils # (0-0.7) k/uL Basophils # (0-0.2) k/uL D-Dimer 0.33 (<0.60) mg/L FEU Sodium (137-145) mmol/L Potassium (3.5-5.1) mmol/L Chloride (98-107) mmol/L Carbon Dioxide (22-30) mmol/L Anion Gap mmol/L BUN (9-20) mg/dL Creatinine (0.66-1.25) mg/dL Est GFR (CKD-EPI)AfAm (>60 ml/min/1.73 sqM) Est GFR (CKD-EPI)NonAf (>60 ml/min/1.73 sqM) Glucose (74-99) mg/dL Calcium (8.4-10.2) mg/dL Magnesium (1.6-2.3) mg/dL Total Bilirubin (0.2-1.3) mg/dL AST (17-59) U/L ALT (4-49) U/L Alkaline Phosphatase (38-126) U/L Troponin I (0.000-0.034) ng/mL NT-Pro-B Natriuret Pep 154 pg/mL Total Protein (6.3-8.2) g/dL Albumin (3.5-5.0) g/dL Disposition <Scott Stephens - Last Filed: 01/09/22 04:50> Is patient prescribed a controlled substance at d/c from ED?: No Time of Disposition: 05:45 <Severino Lance - Last Filed: 01/09/22 07:01> Clinical Impression: Chest wall syndrome, COVID, Chronic chest pain Disposition: HOME SELF-CARE Condition: Undetermined
--- NOTE | 2022-01-09 02:42 | XR ---
EXAMINATION TYPE: XR chest 1V portable DATE OF EXAM: 01/09/2022 COMPARISON: 01/05/2022 HISTORY: Chest pain TECHNIQUE: Single view FINDINGS: Heart and mediastinum are normal. Lungs are clear. Diaphragm is normal. Bony thorax is inta ct. There is left axillary pacemaker. No pleural effusion. IMPRESSION: No active cardiopulmonary disease. Normal heart. No change.
[2022-01-09 02:48] LABS: Basophils # (A) 0.1 k/uL (0-0.2); Basophils % (A) 1 %; Eosinophils # (A) 0.1 k/uL (0-0.7); Eosinophils % (A) 1 %; HCT 51.5 % (39.0-53.0); HGB 17.5 gm/dL (13.0-17.5); Lymphocytes # (A) 2.2 k/uL (1.0-4.8); Lymphocytes % (A) 30 %; MCH 28.2 pg (25.0-35.0); MCHC 33.9 g/dL (31.0-37.0); Mean Platelet Volume 7.7; Monocytes # (A) 0.5 k/uL (0-1.0); Monocytes % (A) 7 %; Neutrophils # (A) 4.4 k/uL (1.3-7.7); Neutrophils % (A) 59 %; Platelet Count 222 k/uL (150-450); RDW 13.5 % (11.5-15.5); WBC 7.5 k/uL (3.8-10.6)
[2022-01-09 02:56] LABS: ALT 21 U/L (4-49); AST 24 U/L (17-59); African American GFR (CKD) >90 (>60 ml/min/1.73 sqM); Albumin 4.5 g/dL (3.5-5.0); Alkaline Phosphatase 113 U/L (38-126); Anion Gap 17 mmol/L; Blood Urea Nitrogen 23 mg/dL (9-20); Carbon Dioxide 21 mmol/L (22-30); Chloride 98 mmol/L (98-107); Glucose 154 mg/dL (74-99); Magnesium 2.1 mg/dL (1.6-2.3); Non-African American GFR(CKD) 82 (>60 ml/min/1.73 sqM); Potassium 3.9 mmol/L (3.5-5.1); Sodium 136 mmol/L (137-145); Total Bilirubin 1.3 mg/dL (0.2-1.3); Total Protein 7.3 g/dL (6.3-8.2)
[2022-01-09] MEDS ORDERED: MORPHINE SULFATE 4 MG/ML SYRINGE IVP STA (04:55)
[2022-01-09] MEDS ORDERED: ONDANSETRON 4 MG/2 ML VIAL IVP PRN (05:40)
[2022-01-09] MEDS ORDERED: NALOXONE 0.4 MG/ML 1 ML VIAL IV PRN (05:40)
[2022-01-09] MEDS ORDERED: MORPHINE SULFATE 4 MG/ML SYRINGE IV PRN (05:40)
[2022-01-09] MEDS ORDERED: SODIUM CHLORIDE 0.9% 1,000 ML IV SCH (05:45)
[2022-01-09] MEDS ORDERED: ACETAMINOPHEN TAB 500 MG TAB PO STA (06:57)
[2022-01-09] MEDS ORDERED: KETOROLAC 15 MG/ML 1 ML VIAL IVP STA (06:57)
[2022-01-09] MEDS ORDERED: DEXAMETHASONE SOD PHOSPHATE 10 MG/ML 1 ML VIAL IVP STA (06:57)
[2022-01-09 07:07] VITALS: BP 110/78; PULSE 77; RESP 16
== END 2022-01-09 07:04 | disposition home or self-care (01) ==
LOC: EC 22:01 → UNDOADMOB 01-09 05:42 → 6NMEDSUR 01-09 05:42 → EC 01-09 07:04
DX: U07.1 COVID-19 (principal); I25.10 Atherosclerotic heart disease of native coronary artery without angina pectoris; E11.9 Type 2 diabetes mellitus without complications; I11.0 Hypertensive heart disease with heart failure; I50.9 Heart failure, unspecified; I25.2 Old myocardial infarction; F41.9 Anxiety disorder, unspecified; F32.A Depression, unspecified; Z88.0 Allergy status to penicillin; Z79.82 Long term (current) use of aspirin; Z79.84 Long term (current) use of oral hypoglycemic drugs; Z79.4 Long term (current) use of insulin; Z79.899 Other long term (current) drug therapy
CPT/HCPCS: 36415; 71045; 80053; 83735; 83880; 84484; 85025; 85379; 93005; 96361; 96374; 99285

== ENCOUNTER 2024-03-11 17:41 | Observation (INO) | payer MEDICAID, OTHER ==
--- NOTE | 2024-03-11 18:38 | ED ---
Chest Pain HPI - General Chief Complaint: Chest Pain Stated Complaint: chest pain/DEANNA Time Seen by Provider: 03/11/24 18:37 Source: patient, RN notes reviewed, old records reviewed Mode of arrival: wheelchair Limitations: no limitations - History of Present Illness Initial Comments: This is a 44-year-old male to the ER for evaluation patient presents today for evaluation of chest pain history of significant heart disease diabetes high blood pressure high cholesterol CAD amputee, patient presents today for chest pain here in the ER MD Complaint: chest pain -: hour(s) Onset: during rest, during exertion Pain Location: left chest Pain Radiation: LUE Severity: moderate Severity scale (1-10): 5 Quality: tightness, heaviness Consistency: constant Improves With: nothing Worsens With: nothing Anginal Symptoms: dyspnea, sense of impending doom Other Symptoms: palpitations Treatments Prior to Arrival: none - Related Data Home Medications Medication Instructions Recorded Confirmed Furosemide [Lasix] 80 mg PO DAILY 07/25/20 03/11/24 Atorvastatin [Lipitor] 80 mg PO HS 10/13/21 03/11/24 Empagliflozin [Jardiance] 25 mg PO DAILY 10/13/21 03/11/24 Insulin NPH Hum/Reg Insulin Hm 60 unit SQ BID 12/07/21 03/11/24 [humuLIN 70/30 Kwikpen] Clopidogrel [Plavix] 75 mg PO DAILY 03/11/24 03/11/24 Digoxin [Digitek] 250 mcg PO DAILY 03/11/24 03/11/24 Fenofibrate Nanocrystallized 145 mg PO DAILY 03/11/24 03/11/24 [Fenofibrate] Isosorbide Mononitrate ER [Imdur] 60 mg PO DAILY 03/11/24 03/11/24 Ranolazine [Ranexa] 1,000 mg PO BID 03/11/24 03/11/24 Rivaroxaban [Xarelto] 2.5 mg PO BID 03/11/24 03/11/24 Semaglutide [Ozempic] 1 mg SQ TH 03/11/24 03/11/24 Previous Rx's Medication Instructions Recorded Aspirin 81 mg PO DAILY #30 07/15/21 Nitroglycerin Sl Tabs [Nitrostat] 0.4 mg SUBLINGUAL Q5M PRN #30 tab 07/15/21 Lidocaine 4% Patch 1 patch TOPICAL DAILY 30 Days #30 03/13/24 patch Metoprolol Succinate (ER) [Toprol 150 mg PO DAILY 30 Days #90 tab 03/13/24 XL] Naproxen [Naprosyn] 250 mg PO TID PRN #12 tab 03/13/24 Sacubitril/Valsartan [Entresto 24 1 each PO BID 30 Days #60 tab 03/13/24 mg-26 mg Tablet] Allergies Allergy/AdvReac Type Severity Reaction Status Date / Time Penicillins Allergy Unknown Verified 03/11/24 18:09 Childhood Review of Systems ROS Statement: Those systems with pertinent positive or pertinent negative responses have been documented in the HPI. ROS Other: All systems not noted in ROS Statement are negative. EKG Findings - EKG Comments: EKG Findings:: EKG is Sinus 87 NH 205 QRS 133 QTc 416 - EKG Results: EKG: interpreted by AKHIL Past Medical History Past Medical History: Coronary Artery Disease (CAD), Chest Pain / Angina, Heart Failure, Diabetes Mellitus, Hyperlipidemia, Hypertension, Myocardial Infarction (ND), Sleep Apnea/CPAP/BIPAP, Syncope Additional Past Medical History / Comment(s): CARDIAC HISTORY PER DR. HORAN. AICD. IDDM type II. Neuropathy bilateral feet. 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 Migraines. Chronic back pain. Last Myocardial Infarction Date:: 2015 History of Any Multi-Drug Resistant Organisms: None Reported Past Surgical History: AICD, Heart Catheterization, Heart Catheterization With Stent, Orthopedic Surgery Additional Past Surgical History / Comment(s): 10/27/12 AICD, DFTs, PCI with 2 stents, R BKA. Past Anesthesia/Blood Transfusion Reactions: No Reported Reaction Date of Last Stent Placement:: 02/03/16 Type of Cardiac Device: AICD Device Placement Date:: 2012 Past Psychological History: Anxiety, Depression Smoking Status: Never smoker Past Alcohol Use History: None Reported Past Drug Use History: None Reported - Past Family History Mother Family Medical History: No Reported History Additional Family Medical History / Comment(s): Mother is healthy Brother(s) Family Medical History: Myocardial Infarction (ND) Additional Family Medical History / Comment(s): Brother of a ND at the age of 35yrs. Father Family Medical History: Liver Disease Additional Family Medical History / Comment(s): Father when pt was 19 yrs old from liver disease. He was an alcoholic. General Exam Limitations: no limitations General appearance: alert, in no apparent distress, anxious Head exam: Present: atraumatic, normocephalic, normal inspection Eye exam: Present: normal appearance, PERRL, EOMI. Absent: scleral icterus, conjunctival injection, periorbital swelling ENT exam: Present: normal exam, mucous membranes moist Neck exam: Present: normal inspection. Absent: tenderness, meningismus, lymphadenopathy Respiratory exam: Present: normal lung sounds bilaterally. Absent: respiratory distress, wheezes, rales, rhonchi, stridor Cardiovascular Exam: Present: regular rate, normal rhythm, normal heart sounds. Absent: systolic murmur, diastolic murmur, rubs, gallop, clicks GI/Abdominal exam: Present: soft, normal bowel sounds. Absent: distended, tenderness, guarding, rebound, rigid Extremities exam: Present: normal inspection, full ROM, normal capillary refill. Absent: tenderness, pedal edema, joint swelling, calf tenderness Back exam: Present: normal inspection Neurological exam: Present: alert, oriented X3, CN II-XII intact Psychiatric exam: Present: normal affect, normal mood Skin exam: Present: warm, dry, intact, normal color. Absent: rash Course Vital Signs 03/11/24 03/11/24 03/11/24 18:09 21:42 22:53 Temperature 98.3 F Pulse Rate 94 70 68 Respiratory 18 18 18 Rate Blood Pressure 161/97 151/97 145/94 O2 Sat by Pulse 99 98 98 Oximetry - Reevaluation(s) Reevaluation #1: 03/11/24 20:24 Records reviewed Reevaluation #2: 03/11/24 20:24 Patient symptoms improved Reevaluation #3: 03/11/24 20:24 Informed of results questions answered Reevaluation #4: Was pt. sent in by a medical professional or institution (, PA, TURNING MACHINE OPERATOR HELPER, urgent care, hospital, or long term...) When possible be specific @ -no Did you speak to anyone other than the patient for history (EMS, parent, family, police, friend...)? What history was obtained from this source @ -no Did you review nursing and triage notes (agree or disagree)? Why? @ -agree Are old charts reviewed (outside hosp., previous admission, EMS record, old EKG, old radiological studies, urgent care reports/EKG's, long term records)? R eport findings @ -yes Differential Diagnosis (chest pain, altered mental status, abdominal pain women, abdominal pain men, vaginal bleeding, weakness, fever, dyspnea, syncope, headache, dizziness, GI bleed, back pain, seizure, CVA, palpatations, mental health, musculoskeletal)? @ -prior EKG interpreted by me (3pts min.). @ -yes X-rays interpreted by me (1pt min.). @ -yes negative for acute disease CT interpreted by me (1pt min.). @ -no U/S interpreted by me (1pt. min.). @ -no What testing was considered but not performed or refused? (CT, X-rays, U/S, labs)? Why? @ -none What meds were considered but not given or refused? Why? @ -none Did you discuss the management of the patient with other professionals (professionals i.e. , PA, TURNING MACHINE OPERATOR HELPER, lab, RT, psych nurse, clinical social worker, household coordinator, teacher, child support officer, supportive employment case manager)? Give summary @ -no Was smoking cessation discussed for >3mins.? @ -no Was critical care preformed (if so, how long)? @ -no Were there social determinants of health that impacted care today? How? (Homelessness, low income, unemployed, alcoholism, drug addiction, transportation, low edu. Level, literacy, decrease access to med. care, senior living, rehab)? @ -none Was there de-escalation of care discussed even if they declined (Discuss DNR or withdrawal of care, Hospice)? DNR status @ -no What co-morbidities impacted this encounter? (DM, HTN, Smoking, COPD, CAD, Cancer, CVA, ARF, Chemo, Hep., AIDS, mental health diagnosis, sleep apnea, morbid obesity)? @ -none Was patient admitted / discharged? Hospital course, mention meds given and route, prescriptions, significant lab abnormalities, going to OR and other pertinent info. @ - 44 male will be admitted for chest pain observation with persistent chest pain here in the emergency department, no fevers no cough no congestion no shortness of breath no other complaints, normal EKG and troponin patient will be admitted for cardiac observation Admitted Undiagnosed new problem with uncertain prognosis? @ -no Drug Therapy requiring intensive monitoring for toxicity (Heparin, Nitro, Insulin, Cardizem)? @ -no Were any procedures done? @ -no Diagnosis/symptom? @ -Chest pain Acute, or Chronic, or Acute on Chronic? @ -Acute Uncomplicated (without systemic symptoms) or Complicated (systemic symptoms)? @ -Complicated Side effects of treatment? @ -no Exacerbation, Progression, or Severe Exacerbation? @ -exacerbation Poses a threat to life or bodily function? How? (Chest pain, USA, ND, pneumonia, PE, COPD, DKA, ARF, appy, cholecystitis, CVA, Diverticulitis, Homicidal, Suicidal, threat to staff... and all critical care pts) @ -yes with chest pain Reevaluation #5: Differential Chest Pain: Stable Angina, Unstable Angina, STEMI, NSTEMI Aortic Dissection, Pneumothorax, Musculoskeletal, Esophageal Spasm GERD, Cholecystitis, Pancreatitis, Zoster, this is not meant to be an all-inclusive list. - Consultations Consultation #1: Spoke with sound who agrees to admit this patient Chest Pain MDM - MDM 44 male will be admitted for chest pain observation with persistent chest pain here in the emergency department, no fevers no cough no congestion no shortness of breath no other complaints, normal EKG and troponin patient will be admitted for cardiac observation Disposition Clinical Impression: Chronic chest pain, Chest pain Disposition: ADMITTED IP TO THIS HOSP Condition: Stable Is patient prescribed a controlled substance at d/c from ED?: No Time of Disposition: 20:20
--- NOTE | 2024-03-11 18:43 | XR ---
EXAMINATION TYPE: XR chest 2V DATE OF EXAM: 03/11/2024 6:33 PM COMPARISON: Previous chest radiographs, most recently dated 01/09/2022. CLINICAL INDICATION: Male, 44 years old with history of Chest Pain; [facility] TECHNIQUE: XR chest 2V Frontal and lateral views of the chest. FINDINGS: Mild cardiomegaly. Left chest wall cardiac AICD device with lead overlying the cardiac silhouette. No acute focal consolidation. No pleural effusion or pneumothorax. No acute osseous abnormality. IMPRESSION: No acute cardiopulmonary disease/process. [facility], , 03/11/2024 6:40 PM
[2024-03-11 19:57] LABS: Basophils # (A) 0.1 k/uL (0-0.2); Basophils % (A) 2 %; Eosinophils # (A) 0.3 k/uL (0-0.7); Eosinophils % (A) 3 %; HCT 45.6 % (39.0-53.0); HGB 14.9 gm/dL (13.0-17.5); Hypochromasia Slight; Lymphocytes % (A) 21 %; MCHC 32.7 g/dL (31.0-37.0); MCV 76.4 fL (80.0-100.0); Mean Platelet Volume 7.1; Microcytosis Slight; Monocytes # (A) 0.5 k/uL (0-1.0); Monocytes % (A) 6 %; Neutrophils # (A) 6.4 k/uL (1.3-7.7); Neutrophils % (A) 67 %; Platelet Count 312 k/uL (150-450); Poikilocytosis Slight; RBC 5.97 m/uL (4.30-5.90); RDW 15.9 % (11.5-15.5); WBC 9.6 k/uL (3.8-10.6)
[2024-03-11 20:08] LABS: ALT 18 U/L (4-49); AST 15 U/L (17-59); African American GFR (CKD) >90 (>60 ml/min/1.73 sqM); Albumin 4.1 g/dL (3.5-5.0); Alkaline Phosphatase 108 U/L (38-126); Anion Gap 11 mmol/L; Blood Urea Nitrogen 16 mg/dL (9-20); Calcium 8.7 mg/dL (8.4-10.2); Carbon Dioxide 21 mmol/L (22-30); Chloride 105 mmol/L (98-107); Glucose 216 mg/dL (74-99); Magnesium 2.3 mg/dL (1.6-2.3); Non-African American GFR(CKD) >90 (>60 ml/min/1.73 sqM); Potassium 4.1 mmol/L (3.5-5.1); Sodium 137 mmol/L (137-145); Total Bilirubin 0.7 mg/dL (0.2-1.3); Total Protein 7.2 g/dL (6.3-8.2)
[2024-03-11 20:11] LABS: INR 0.9 (<1.2); Partial Thromboplastin Time 24.8 sec (22.0-30.0); Prothrombin Time 9.8 sec (10.0-12.5)
[2024-03-11] MEDS ORDERED: NALOXONE 0.4 MG/ML 1 ML VIAL IV PRN (20:22)
[2024-03-11] MEDS ORDERED: ONDANSETRON 4 MG/2 ML VIAL IVP PRN (20:22)
[2024-03-11] MEDS: HYDROmorphone 1 MG/ML 1 ML SYRINGE IVP STA (20:35)
[2024-03-11] MEDS: SODIUM CHLORIDE 0.9% 1,000 ML IV SCH (20:35)
[2024-03-12] MEDS: HYDROmorphone 1 MG/ML 1 ML SYRINGE IVP PRN (00:49)
[2024-03-12] MEDS ORDERED: NITROGLYCERIN SL TABS 0.4 MG TAB SUBLINGUAL PRN (07:57)
[2024-03-12] MEDS ORDERED: DEXTROSE 50% SYRINGE 50 ML IVP PRN ×2 (07:58)
[2024-03-12] MEDS: DAPAGLIFLOZIN PROPANEDIOL 10 MG TABLET PO SCH (08:23)
[2024-03-12] MEDS: CLOPIDOGREL 75 MG TAB PO SCH (08:23)
[2024-03-12] MEDS: ASPIRIN 81 MG PO SCH (08:23)
[2024-03-12] MEDS: RANOLAZINE 500 MG TAB.ER.12H PO SCH (08:24)
[2024-03-12] MEDS: PANTOPRAZOLE 40 MG/10 ML VIAL IV SCH (08:24)
[2024-03-12 08:37] LABS: Basophils # (A) 0.14 X 10*3/uL (0.00-0.10); Basophils % (A) 1.4 %; Eosinophils # (A) 0.37 X 10*3/uL (0.04-0.35); Eosinophils % (A) 3.6 %; HCT 46.1 % (39.6-50.0); HGB 14.3 g/dL (13.0-17.0); Lymphocytes # (A) 2.31 X 10*3/uL (0.90-5.00); Lymphocytes % (A) 22.6 %; MCH 24.2 pg (27.0-32.0); Mean Platelet Volume 9.4 FL (9.5-12.2); Monocytes # (A) 0.84 X 10*3/uL (0.20-1.00); Monocytes % (A) 8.2 %; NRBC Per 100 WBC 0.02 X 10*3/uL (0.00-0.01); Neutrophils # (A) 6.46 X 10*3/uL (1.80-7.70); Platelet Count 279 X 10*3/uL (140-440); RBC 5.91 X 10*6/uL (4.40-5.60); RDW 15.9 % (11.5-14.5); WBC 10.24 X 10*3/uL (4.50-10.00)
[2024-03-12 08:55] LABS: ALT 14 U/L (10-49); AST 19 U/L (14-35); Alkaline Phosphatase 89 U/L (41-126); BUN/Creat Ratio 16.75 Ratio (12.00-20.00); Blood Urea Nitrogen 13.4 mg/dL (9.0-27.0); Calcium 9.2 mg/dL (8.7-10.3); Carbon Dioxide 27.6 mmol/L (21.6-31.8); Chloride 103 mmol/L (96-109); Globulin 2.5 g/dL (1.6-3.3); Glucose 93 mg/dL (70-110); Magnesium 2.1 mg/dL (1.5-2.4); Phosphorus 4.1 mg/dL (2.4-5.1); Potassium 5.1 mmol/L (3.5-5.5); Sodium 139 mmol/L (135-145); Total Bilirubin 0.3 mg/dL (0.3-1.2); Total Protein 6.5 g/dL (6.2-8.2)
[2024-03-12] MEDS ORDERED: FENOFIBRATE 160 MG TAB PO SCH (09:00)
[2024-03-12] MEDS ORDERED: METOPROLOL SUCCINATE (ER) 100 MG TAB.ER.24H PO SCH (09:00)
[2024-03-12 09:01] LABS: Glucose,Whole Blood 205 mg/dL (70-110)
[2024-03-12] MEDS: RIVAROXABAN 2.5 MG TABLET PO SCH (09:20)
[2024-03-12] MEDS: FUROSEMIDE 80 MG TAB PO SCH (09:20)
[2024-03-12] MEDS: INSULN ASP PRT/INSULIN ASPART 100 UNIT/ML 10 ML VIAL SQ SCH (09:20)
[2024-03-12] MEDS: ISOSORBIDE MONONITRATE ER 60 MG TAB.ER.24H PO SCH (09:21)
[2024-03-12] MEDS: DIGOXIN 250 MCG TAB PO SCH (09:21)
[2024-03-12] MEDS: SACUBITRIL/VALSARTAN 24 MG-26 MG TABLET PO SCH (10:02)
[2024-03-12] MEDS: METOPROLOL SUCCINATE (ER) 25 MG TAB.ER.24H PO SCH (10:02)
[2024-03-12 10:42] LABS: NT-Pro-B-Type Natriuretic Pept 127 pg/mL (0-125)
--- NOTE | 2024-03-12 10:45 | P.CRDCN ---
History of Present Illness History of present illness: HISTORY OF PRESENT ILLNESS: This is a 44-year-old male with a past medical history significant for coronary artery disease, ischemic cardiomyopathy, AICD implantation, hypertension, hyper lipidemia, SVT. Patient follows in the office with Dr. Hernandez but has not been to the office in 2 years as he was living in [place] and just moved back to [place]. We have been asked to see the patient in consultation for chest pain. Patient examined at the bedside. Patient states he had an episode of chest discomfort yesterday. He states the pain is worse with exertion. He states the pain feels similar to his previous episodes when he required stenting. He states the pain felt like a heaviness in that a burning and stabbing sensation. He took nitro at home with little relief. He did receive Dilaudid when he came to the hospital which he states helped some. DIAGNOSTICS: - EKG reveals sinus mechanism with IVCD. No signs of acute ischemia. - Chest xray negative for acute process - Laboratory data: WBC 10.24. Hemoglobin 14.3. Platelet count 279. D-dimer 0.26. Sodium 139. Potassium 5.1. BUN 13.4. Creatinine 0.8. Magnesium 2.1. Troponin negative x 3. - Current home cardiac medications include aspirin 81 mg daily, Lipitor 80 mg at night, Jardiance 25 mg daily, Lasix 80 mg daily, Plavix 75 mg daily, Xarelto 2.5 mg twice a day, digoxin 250 mg daily, fenofibrate 145 mg daily, Imdur 60 mg daily, metoprolol succinate 100 mg daily, Ranexa 1000 mg twice a day - Most recent echocardiogram obtained in April 2021 revealed ejection fraction 20 to 25%, global hypokinesis, trace to mild MR, mild TR - Cardiac catheterization history: October 2021 revealing left circumflex is occl uded, proximal LAD with mild disease only, mid LAD appears to have mild disease which gives rise into large diagonal branch which has an intermediate lesion, the LAD distally by the apical area appears to have a tight lesion unchanged from before. Patient underwent stenting of the RCA due to abnormal IFR REVIEW OF SYSTEMS: At the time of my exam: CONSTITUTIONAL: Denies fever or chills. HEENT: Denies blurred vision, vision changes, or eye pain. Denies hemoptysis CARDIOVASCULAR: Denies chest pain. Denies orthopnea. Denies PND. Denies palpitations RESPIRATORY: Denies shortness of breath. GASTROINTESTINAL: Denies abdominal pain. Denies nausea or vomiting. HEMATOLOGIC: Denies bleeding disorders. GENITOURINARY: Denies any blood in urine. SKIN: Denies pruitis. Denies rash. PHYSICAL EXAM: VITAL SIGNS: Reviewed. GENERAL: Well-developed in no acute distress. HEENT: Head is normocephalic. Pupils are equal, round. Sclerae anicteric. Mucous membranes of the mouth are moist. Neck supple. No JVD or thyromegaly LUNGS: Respirations even and unlabored. Lungs essentially clear to auscultation bilaterally. HEART: Regular rate and rhythm. S1 and S2 heard. ABDOMEN: Soft. Nondistended. Nontender. EXTREMITIES: Normal range of motion. No clubbing or cyanosis. Right BKA. Minimal edema of left lower extremity NEUROLOGIC: Awake and alert. Oriented x 3. ASSESSMENT: Chest pain, troponin negative x 3 Coronary artery disease with previous stenting of the RCA Known occluded circumflex coronary artery Ischemic cardiomyopathy, EF 5% History of ICD implantation Hypertension Hyperlipidemia History of SVT Diabetes History of right BKA Obstructive sleep apnea Former nicotine dependence, quit in 2019 PLAN: An acute coronary event has been ruled out Resume home cardiac medications Discontinue digoxin Increase metoprolol succinate to 125 mg daily Begin Entresto 24-26 mg twice a day Obtain 2D echo to assess cardiac structure and function Further recommendations pending patient course Nurse practitioner note has been reviewed by physician. Signing provider agrees with the documented findings, assessment, and plan of care documented by ASSOCIATE TECHNICIAN as a scribe. Past Medical History Past Medical History: Coronary Artery Disease (CAD), Chest Pain / Angina, Heart Failure, Diabetes Mellitus, Hyperlipidemia, Hypertension, Myocardial Infarction (MT), Sleep Apnea/CPAP/BIPAP, Syncope Additional Past Medical History / Comment(s): CARDIAC HISTORY PER DR. HORAN. AICD. IDDM type II. Neuropathy bilateral feet. 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 Migraines. Chronic back pain. Last Myocardial Infarction Date:: 2015 History of Any Multi-Drug Resistant Organisms: None Reported Past Surgical History: AICD, Heart Catheterization, Heart Catheterization With Stent, Orthopedic Surgery Additional Past Surgical History / Comment(s): 10/27/12 AICD, DFTs, PCI with 2 stents, R BKA this may 2023 in [place]. Past Anesthesia/Blood Transfusion Reactions: No Reported Reaction Date of Last Stent Placement:: 02/03/16 Type of Cardiac Device: AICD Device Placement Date:: 2012 Past Psychological History: Anxiety, Depression Additional Psychological History / Comment(s): rajesh . Smoking Status: Never smoker Past Alcohol Use History: None Reported Additional Past Alcohol Use History / Comment(s): quit in 2018 Past Drug Use History: None Reported - Past Family History Mother Family Medical History: No Reported History Additional Family Medical History / Comment(s): Mother is healthy Brother(s) Family Medical History: Myocardial Infarction (MT) Additional Family Medical History / Comment(s): Brother of a MT at the age of 35yrs. Father Family Medical History: Liver Disease Additional Family Medical History / Comment(s): Father when pt was 19 yrs old from liver disease. He was an alcoholic. Medications and Allergies Home Medications Medication Instructions Recorded Confirmed Type Furosemide [Lasix] 80 mg PO DAILY 07/25/20 03/11/24 History Aspirin 81 mg PO DAILY #30 07/15/21 03/11/24 Rx Nitroglycerin Sl Tabs [Nitrostat] 0.4 mg SUBLINGUAL Q5M PRN #30 tab 07/15/21 03/11/24 Rx Atorvastatin [Lipitor] 80 mg PO HS 10/13/21 03/11/24 History Empagliflozin [Jardiance] 25 mg PO DAILY 10/13/21 03/11/24 History Insulin NPH Hum/Reg Insulin Hm 60 unit SQ BID 12/07/21 03/11/24 History [humuLIN 70/30 Kwikpen] Clopidogrel [Plavix] 75 mg PO DAILY 03/11/24 03/11/24 History Digoxin [Digitek] 250 mcg PO DAILY 03/11/24 03/11/24 History Fenofibrate Nanocrystallized 145 mg PO DAILY 03/11/24 03/11/24 History [Fenofibrate] Isosorbide Mononitrate ER [Imdur] 60 mg PO DAILY 03/11/24 03/11/24 History Metoprolol Succinate (ER) [Toprol 100 mg PO DAILY 03/11/24 03/11/24 History Xl] Ranolazine [Ranexa] 1,000 mg PO BID 03/11/24 03/11/24 History Rivaroxaban [Xarelto] 2.5 mg PO BID 03/11/24 03/11/24 History Semaglutide [Ozempic] 1 mg SQ TH 03/11/24 03/11/24 History Allergies Allergy/AdvReac Type Severity Reaction Status Date / Time Penicillins Allergy Unknown Verified 03/11/24 18:09 Childhood Physical Exam Vitals: Vital Signs Temp Pulse Pulse Resp BP BP Pulse Ox 03/12/24 08:23 97.4 F L 64 17 138/88 98 03/12/24 01:06 97.7 F 83 18 136/79 96 03/11/24 23:37 16 03/11/24 23:15 98.1 F 71 18 147/85 97 03/11/24 22:53 68 18 145/94 98 03/11/24 21:42 70 18 151/97 98 03/11/24 18:09 98.3 F 94 18 161/97 99 Intake and Output 03/11/24 03/12/24 03/12/24 22:59 06:59 14:59 Intake Total 0 590 Balance 0 590 Intake: IV 10 Invasive Line 1 10 Oral 0 580 Other: # Voids 2 Weight 118.841 kg 118.841 kg Results 03/12/24 03:32 03/12/24 03:32 Cardiac Enzymes 03/11/24 03/11/24 03/11/24 Range/Units 19:46 19:46 22:43 AST 15 L (17-59) U/L Troponin I <0.012 <0.012 (0.000-0.034) ng/mL 03/11/24 03/12/24 Range/Units 23:53 03:32 AST 19 (17-59) U/L Troponin I <0.012 (0.000-0.034) ng/mL Coagulation 03/11/24 Range/Units 19:46 PT 9.8 L (10.0-12.5) sec APTT 24.8 (22.0-30.0) sec CBC 03/11/24 03/12/24 Range/Units 19:46 03:32 WBC 9.6 10.24 H (3.8-10.6) k/uL RBC 5.97 H 5.91 H (4.30-5.90) m/uL Hgb 14.9 14.3 (13.0-17.5) gm/dL Hct 45.6 46.1 (39.0-53.0) % Plt Count 312 279 (150-450) k/uL Comprehensive Metabolic Panel 03/11/24 03/12/24 Range/Units 19:46 03:32 Sodium 137 139 (137-145) mmol/L Potassium 4.1 5.1 (3.5-5.1) mmol/L Chloride 105 103 (98-107) mmol/L Carbon Dioxide 21 L 27.6 (22-30) mmol/L BUN 16 13.4 (9-20) mg/dL Creatinine 0.90 0.8 (0.66-1.25) mg/dL Glucose 216 H 93 (74-99) mg/dL Calcium 8.7 9.2 (8.4-10.2) mg/dL AST 15 L 19 (17-59) U/L ALT 18 14 (4-49) U/L Alkaline Phosphatase 108 89 (38-126) U/L Total Protein 7.2 6.5 (6.3-8.2) g/dL Albumin 4.1 4.0 (3.5-5.0) g/dL Current Medications Generic Name Dose Route Start Last Admin Trade Name Freq PRN Reason Stop Dose Admin Aspirin 81 mg 03/12/24 09:00 03/12/24 08:23 Aspirin 81 Mg PO 81 mg DAILY KSENIA Administration Atorvastatin Calcium 80 mg 03/12/24 21:00 Atorvastatin 80 Mg Tab PO HS [facility] Clopidogrel Bisulfate 75 mg 03/12/24 09:00 03/12/24 08:23 Clopidogrel 75 Mg Tab PO 75 mg DAILY KSENIA Administration Dapagliflozin 10 mg 03/12/24 09:00 03/12/24 08:23 Dapagliflozin Propanediol 10 Mg Tablet PO 10 mg DAILY KSENIA Administration Dextrose/Water 25 ml 03/12/24 07:58 Dextrose 50% Syringe 50 Ml IVP PER PROTOCOL PRN Hypoglycemia Protocol Dextrose/Water 50 ml 03/12/24 07:58 Dextrose 50% Syringe 50 Ml IVP PER PROTOCOL PRN Hypoglycemia Protocol Digoxin 250 mcg 03/12/24 09:00 03/12/24 09:21 Digoxin 250 Mcg Tab PO 250 mcg DAILY KSENIA Administration Furosemide 80 mg 03/12/24 09:00 03/12/24 09:20 Furosemide 80 Mg Tab PO 80 mg DAILY KSENIA Administration Hydromorphone HCl 1 mg 03/11/24 20:22 03/12/24 09:58 Hydromorphone 1 Mg/Ml 1 Ml Syringe IVP 1 mg Q3HR PRN Administration Severe Pain (Scale 7 to 10) Sodium Chloride 1,000 mls @ 20 mls/hr 03/11/24 20:30 03/11/24 20:35 Saline 0.9% IV 20 mls/hr .Q24H KSENIA Administration Insulin Aspart 60 unit 03/12/24 08:15 03/12/24 09:20 Insuln Asp Prt/Insulin Aspart 100 Unit/Ml 10 Ml Vial SQ 60 unit AC-BID KSENIA Administration Insulin Aspart 0 unit 03/12/24 12:30 Insulin Aspart (Novolog) 100 Unit/Ml Vial SQ ACHS [facility] Protocol Isosorbide Mononitrate 60 mg 03/12/24 09:00 03/12/24 09:21 Isosorbide Mononitrate Er 60 Mg Tab.Er.24h PO 60 mg DAILY KSENIA Administration Metoprolol Succinate 125 mg 03/12/24 08:30 03/12/24 10:05 Metoprolol Succinate (Er) 25 Mg Tab.Er.24h PO Not Given DAILY KSENIA Naloxone HCl 0.2 mg 03/11/24 20:22 Naloxone 0.4 Mg/Ml 1 Ml Vial IV Q2M PRN Opioid Reversal Nitroglycerin 0.4 mg 03/12/24 07:57 Nitroglycerin Sl Tabs 0.4 Mg Tab SUBLINGUAL Q5M PRN Chest Pain Ondansetron HCl 4 mg 03/11/24 20:22 Ondansetron 4 Mg/2 Ml Vial IVP Q8HR PRN Nausea And Vomiting Pantoprazole Sodium 40 mg 03/13/24 07:30 Pantoprazole 40 Mg Tablet PO AC-BRKFST [facility] Ranolazine 1,000 mg 03/12/24 09:00 03/12/24 08:24 Ranolazine 500 Mg Tab.Er.12h PO 1,000 mg BID KSENIA Administration Rivaroxaban 2.5 mg 03/12/24 09:00 03/12/24 09:20 Rivaroxaban 2.5 Mg Tablet PO 2.5 mg BID KSENIA Administration Protocol Sacubitril/Valsartan 1 each 03/12/24 09:00 03/12/24 10:02 Sacubitril/Valsartan 24 Mg-26 Mg Tablet PO 1 each BID KSENIA Administration Intake and Output 03/11/24 03/12/24 03/12/24 22:59 06:59 14:59 Intake Total 0 590 Balance 0 590 Intake: IV 10 Invasive Line 1 10 Oral 0 580 Other: # Voids 2 Weight 118.841 kg 118.841 kg 03/12/24 03:32 03/12/24 03:32
[2024-03-12 10:46] LABS: Chol/HDL Ratio 9.05 Ratio; LDL Cholesterol,Calculated 194.8 mg/dL (0.0-131.0)
--- NOTE | 2024-03-12 11:43 | P.HPIM ---
History of Present Illness H&P Date: 03/12/24 History of Presenting Illness: Patient is a 44-year-old male with a past medical history of CAD with previous OK and stent placement, ischemic cardiomyopathy with previously known EF of 20 to 25% status post AICD placement, hypertension, hyperlipidemia, SVT, diabetes mellitus type 2, bilateral lower extremity peripheral neuropathy, right BKA, obstructive sleep apnea CPAP dependent nightly, and migraine headaches. Pt presented to the emergency department with a chief complaint of chest pain. Patient describes this pain to midsternal chest as "a squeezing tightening sharp pressure". He reports pain radiates from midsternal chest to left shoulder and down left arm. He reports pain is worsened with exertion and denies anything providing relief of pain. He states pain is constant and persistent. He denies having any diaphoresis, headache, lightheadedness, dizziness, shortness of breath, cough or congestion, or any other complaints at this time. Patient reports last stent was placed just over 1 year ago and states right BKA was done in June 2023. Patient reports he used to follow with Dr. Hernandez but has been living in [place] for 2 years and just moved back to [place] a few days ago. Upon arrival to our facility, patient underwent evaluation in the emergency department. Vital signs upon arrival show blood pressure 161/97, heart rate 94, respiratory rate 18, temp 98.3 F, and SpO2 of 99% on room air. Completed showing normal sinus rhythm at 87 bpm with no significant T wave or ST abnormality showing no signs of acute ischemia upon personal review and interpretation. Chest x-ray was negative for acute cardiopulmonary process. Labs were completed and reviewed. CBC was unremarkable. Coagulation profile showing low PT of 9.8 otherwise normal findings. D-dimer 0.26. BMP showing hypocarbia with bicarb of 21 otherwise normal findings. Blood glucose was elevated at 216. Magnesium 2.3. Liver profile showing a low AST of 15 otherwise normal findings. Troponin was negative at less than 0.012. Patient admitted under services with consultation to cardiology. Troponins trended all less than 0.012 x 3 draws. Review of systems: Pertinent positives and negatives as discussed in HPI, a complete review of systems was performed and all other systems are negative. Physical exam: Vital signs reviewed and stable. General: Nontoxic, no distress and appears stated age. Derm: Skin warm and dry, normal coloration for ethnicity. Head: Atraumatic, normocephalic and symmetric. Eyes: EOM's intact, no lid lag, and anicteric sclera Mouth: no lip lesions, mucus membranes moist Cardiovascular: regular rate and rhythm with normal S1S2, no murmur, and cap refill < 2 seconds. Lungs: Respirations even, regular, and unlabored on room air. Lungs CTA bilaterally, no rhonchi, no rales, no wheezing, and no accessory muscle usage. Abdominal: soft, nontender to palpation, no guarding, no appreciable organomegaly Ext: ROM intact. No gross muscle atrophy, no edema, no contractures, RBKA Neuro: Speech clear, face symmetrical and CN II-XII grossly intact with no noted focal neuro deficits Psych: Alert and oriented to person, place, time, and situation. Appropriate and pleasant affect. Assessment and Plan of Care: Chest pain, acute coronary event ruled out CAD with previous OK and stenting x 2 Ischemic cardiomyopathy status post AICD History of SVT hypertension Hyperlipidemia -Cardiology consulted, appreciate recommendations -Telemetry monitoring -Troponin's negative at less than 0.012 x 3 draws. -Patient to continue cardiac medication regimen with aspirin 81 mg daily, atorvastatin 80 mg nightly, Plavix 75 mg daily, Farxiga 10 mg daily, furosemide 80 mg daily, isosorbide mononitrate 60 mg daily, metoprolol succinate 100 mg daily, Ranexa 1000 mg twice daily, and Xarelto 2.5 mg twice daily, -Order placed for interrogation of AICD -Lipid profile . -Echocardiogram -Will attempt to obtain records from solution mixer in [place], patient looking up contact information of solution mixer Insulin-dependent diabetes mellitus with hyperglycemia Peripheral neuropathy Status post right BKA in June 2023 -Patient placed on glycemic protocol and to continue NovoLog 70-30 vial 60 units twice daily. -Follow-up on hemoglobin A1c. Obstructive sleep apnea -Continue CPAP nightly and while napping Data and imaging reviewed -As stated above in HPI The patient is admitted with an anticipated less than 2 midnight stay for evaluation of chest pain CODE STATUS: Full code DVT prophylaxis: Xarelto Anticipated discharge date: Pending clinical course Anticipated discharge place: Home Patient was seen independently by Nurse Practitioner. This document was prepared using [employer] dictation software. Please allow for errors in lead java programmer while rare they do occur. Sunny Andrews NP rendered care for this patient independently, reviewed the findings and plan as documented in the note above and agree with plan. I did not physically speak with or examine the patient on this date. Past Medical History Past Medical History: Coronary Artery Disease (CAD), Chest Pain / Angina, Heart Failure, Diabetes Mellitus, Hyperlipidemia, Hypertension, Myocardial Infarction (OK), Sleep Apnea/CPAP/BIPAP, Syncope Additional Past Medical History / Comment(s): CARDIAC HISTORY PER DR. HORAN. AICD. IDDM type II. Neuropathy bilateral feet. 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 Migraines. Chronic back pain. Last Myocardial Infarction Date:: 2015 History of Any Multi-Drug Resistant Organisms: None Reported Past Surgical History: AICD, Heart Catheterization, Heart Catheterization With Stent, Orthopedic Surgery Additional Past Surgical History / Comment(s): 10/27/12 AICD, DFTs, PCI with 2 dane nts, R JUDITHA this may 2023 in [place]. Past Anesthesia/Blood Transfusion Reactions: No Reported Reaction Date of Last Stent Placement:: 02/03/16 Type of Cardiac Device: AICD Device Placement Date:: 2012 Past Psychological History: Anxiety, Depression Additional Psychological History / Comment(s): rajesh . Smoking Status: Never smoker Past Alcohol Use History: None Reported Additional Past Alcohol Use History / Comment(s): quit in 2018 Past Drug Use History: None Reported - Past Family History Mother Family Medical History: No Reported History Additional Family Medical History / Comment(s): Mother is healthy Brother(s) Family Medical History: Myocardial Infarction (OK) Additional Family Medical History / Comment(s): Brother of a OK at the age of 35yrs. Father Family Medical History: Liver Disease Additional Family Medical History / Comment(s): Father when pt was 19 yrs old from liver disease. He was an alcoholic. Medications and Allergies Home Medications Medication Instructions Recorded Confirmed Type Furosemide [Lasix] 80 mg PO DAILY 07/25/20 03/11/24 History Aspirin 81 mg PO DAILY #30 07/15/21 03/11/24 Rx Nitroglycerin Sl Tabs [Nitrostat] 0.4 mg SUBLINGUAL Q5M PRN #30 tab 07/15/21 03/11/24 Rx Atorvastatin [Lipitor] 80 mg PO HS 10/13/21 03/11/24 History Empagliflozin [Jardiance] 25 mg PO DAILY 10/13/21 03/11/24 History Insulin NPH Hum/Reg Insulin Hm 60 unit SQ BID 12/07/21 03/11/24 History [humuLIN 70/30 Kwikpen] Clopidogrel [Plavix] 75 mg PO DAILY 03/11/24 03/11/24 History Digoxin [Digitek] 250 mcg PO DAILY 03/11/24 03/11/24 History Fenofibrate Nanocrystallized 145 mg PO DAILY 03/11/24 03/11/24 History [Fenofibrate] Isosorbide Mononitrate ER [Imdur] 60 mg PO DAILY 03/11/24 03/11/24 History Metoprolol Succinate (ER) [Toprol 100 mg PO DAILY 03/11/24 03/11/24 History Xl] Ranolazine [Ranexa] 1,000 mg PO BID 03/11/24 03/11/24 History Rivaroxaban [Xarelto] 2.5 mg PO BID 03/11/24 03/11/24 History Semaglutide [Ozempic] 1 mg SQ TH 03/11/24 03/11/24 History Allergies Allergy/AdvReac Type Severity Reaction Status Date / Time Penicillins Allergy Unknown Verified 03/11/24 18:09 Childhood Physical Exam Vitals: Vital Signs Temp Pulse Pulse Resp BP BP Pulse Ox 03/12/24 01:06 97.7 F 83 18 136/79 96 03/11/24 23:37 16 03/11/24 23:15 98.1 F 71 18 147/85 97 03/11/24 22:53 68 18 145/94 98 03/11/24 21:42 70 18 151/97 98 03/11/24 18:09 98.3 F 94 18 161/97 99 Intake and Output 03/11/24 03/12/24 03/12/24 22:59 06:59 14:59 Intake Total 0 Balance 0 Intake: Oral 0 Other: # Voids 2 Weight 118.841 kg 118.841 kg Results CBC & Chem 7: 03/12/24 03:32 03/12/24 03:32 Labs: Abnormal Lab Results - Last 24 Hours (Table) 03/11/24 03/11/24 03/11/24 Range/Units 19:46 19:46 19:46 RBC 5.97 H (4.30-5.90) m/uL MCV 76.4 L (80.0-100.0) fL RDW 15.9 H (11.5-15.5) % PT 9.8 L (10.0-12.5) sec Carbon Dioxide 21 L (22-30) mmol/L Glucose 216 H (74-99) mg/dL AST 15 L (17-59) U/L Thrombosis Risk Factor Assmnt - Choose All That Apply Any of the Below Risk Factors Present?: Yes Each Factor Represents 1 point: Age 41-60 years, Obesity (BMI >25) Other Risk Factors: No Other congenital or acquired thrombophilia - If yes, enter type in comment: No Thrombosis Risk Factor Assessment Total Risk Factor Score: 2 Thrombosis Risk Factor Assessment Level: Low Risk
[2024-03-12 12:24] LABS: Glucose,Whole Blood 137 mg/dL (70-110)
[2024-03-12] MEDS: INSULIN ASPART (NovoLOG) 100 UNIT/ML VIAL SQ SCH (12:28)
[2024-03-12 17:46] LABS: Glucose,Whole Blood 214 mg/dL (70-110)
[2024-03-12 19:53] LABS: Glucose,Whole Blood 369 mg/dL (70-110)
[2024-03-12] MEDS: ATORVASTATIN 80 MG TAB PO SCH (20:10)
[2024-03-13] MEDS: PANTOPRAZOLE 40 MG TABLET PO SCH (04:27)
[2024-03-13 08:05] LABS: Glucose,Whole Blood 175 mg/dL (70-110)
[2024-03-13] MEDS ORDERED: NAPROXEN 250 MG TAB PO PRN (08:40)
[2024-03-13 08:46] LABS: HCT 42.7 % (39.6-50.0); HGB 13.4 g/dL (13.0-17.0); MCH 25.2 pg (27.0-32.0); MCHC 31.4 g/dL (32.0-37.0); MCV 80.3 FL (80.0-97.0); Mean Platelet Volume 9.9 FL (9.5-12.2); NRBC Per 100 WBC 0 X 10*3/uL (0.00-0.01); Platelet Count 261 X 10*3/uL (140-440); RBC 5.32 X 10*6/uL (4.40-5.60); RDW 15.5 % (11.5-14.5); WBC 9.21 X 10*3/uL (4.50-10.00)
[2024-03-13 09:03] LABS: Magnesium 1.8 mg/dL (1.5-2.4)
[2024-03-13 09:25] VITALS: BP 132/84; PULSE 72; RESP 18; TEMP 97.6
--- NOTE | 2024-03-13 09:48 | P.DS ---
Providers Date of admission: 03/11/24 20:22 Expected date of discharge: 03/13/24 Attending physician: Dinh Britt MD Consults: 03/11/24 20:22 Consult Physician Routine Consulting Provider: Milagros Cortez Consult Reason/Comments: cp Do you want consulting provider notified?: Yes Primary care physician: Stated None Hospital Course: Discharge Diagnosis: Chest pain, acute coronary event ruled out CAD with previous CA and stenting x 2 Ischemic cardiomyopathy status post AICD History of SVT hypertension Hyperlipidemia Insulin-dependent diabetes mellitus, poorly controlled with hemoglobin A1c of 10.2%. Peripheral neuropathy Status post right BKA in June 2023 Obstructive sleep apnea, CPAP dependent nightly. Hospital Course: Patient is a 44-year-old male with a past medical history of CAD with previous CA and stent placement, ischemic cardiomyopathy with previously known EF of 20 to 25% status post AICD placement, hypertension, hyperlipidemia, SVT, diabetes mellitus type 2, bilateral lower extremity peripheral neuropathy, right BKA, obstructive sleep apnea CPAP dependent nightly, and migraine headaches. Pt presented to the emergency department with a chief complaint of chest pain. Patient describes this pain to midsternal chest as "a squeezing tightening sharp pressure". He reports pain radiates from midsternal chest to left shoulder and down left arm. He reports pain is worsened with exertion and denies anything providing relief of pain. He states pain is constant and persistent. He denies having any diaphoresis, headache, lightheadedness, dizziness, shortness of breath, cough or congestion, or any other complaints at this time. Patient reports last stent was placed just over 1 year ago and states right BKA was done in June 2023. Patient reports he used to follow with Dr. Hernandez but has been living in [place] for 2 years and just moved back to [place] a few days ago. Upon arrival to our facility, patient underwent evaluation in the emergency department. Vital signs upon arrival show blood pressure 161/97, heart rate 94, respiratory rate 18, temp 98.3 F, and SpO2 of 99% on room air. Completed showing normal sinus rhythm at 87 bpm with no significant T wave or ST abnormality showing no signs of acute ischemia upon personal review and inter pretation. Chest x-ray was negative for acute cardiopulmonary process. Labs were completed and reviewed. CBC was unremarkable. Coagulation profile showing low PT of 9.8 otherwise normal findings. D-dimer 0.26. BMP showing hypocarbia with bicarb of 21 otherwise normal findings. Blood glucose was elevated at 216. Magnesium 2.3. Liver profile showing a low AST of 15 otherwise normal findings . Troponin was negative at less than 0.012. Patient admitted under services with consultation to cardiology. Troponins trended all less than 0.012 x 3 draws. Echocardiogram completed showing a reduced EF of 30 to 35%. Discussed in detail with review engineer and cardiac DISPATCH SUPERVISOR. Patient is cleared from cardiology perspective for discharge recommending outpatient follow-up in office in 1 [address] Hernandez. Cardiology recommending a few day course of naproxen 250 mg 3 times daily along with lidocaine patch for chest pain/discomfort. Patient's metoprolol dose was increased to 150 mg daily and he was started on Entresto 24-26 mg tablets. Patient medically optimized at this time and stable for discharge. Patient provided with appointment for local PCP for posthospitalization follow-up and establishing of care. Physical exam: Vital signs reviewed and stable. General: Nontoxic, no distress and appears stated age. Derm: Skin warm and dry, normal coloration for ethnicity. Head: Atraumatic, normocephalic and symmetric. Eyes: EOM's intact, no lid lag, and anicteric sclera Mouth: no lip lesions, mucus membranes moist Cardiovascular: regular rate and rhythm with normal S1S2, no murmur, and cap refill < 2 seconds. Lungs: Respirations even, regular, and unlabored on room air. Lungs CTA bilaterally, no rhonchi, no rales, no wheezing, and no accessory muscle usage. Abdominal: soft, nontender to palpation, no guarding, no appreciable organomegaly Ext: ROM intact. No gross muscle atrophy, no edema, no contractures, RBKA Neuro: Speech clear, face symmetrical and CN II-XII grossly intact with no noted focal neuro deficits Psych: Alert and oriented to person, place, time, and situation. Appropriate and pleasant affect. A total of 35 minutes of time were spent preparing this complex discharge summary. Pt was discharged on 03/13/2024 at 9:46 AM. Patient was seen independently by Nurse Practitioner. This document was prepared using [employer] dictation software. Please allow for errors in grinder operator tool while rare they do occur. Sunny Andrews NP rendered care for this patient independently, reviewed the findings and plan as documented in the note above. I did not physically speak with or examine the patient on this date. Patient Condition at Discharge: Stable Plan - Discharge Summary New Discharge Prescriptions: New Sacubitril/Valsartan [Entresto 24 mg-26 mg Tablet] 1 each PO BID 30 Days #60 tab Metoprolol Succinate (ER) [Toprol XL] 150 mg PO DAILY 30 Days #90 tab Lidocaine 4% Patch 1 patch TOPICAL DAILY 30 Days #30 patch Naproxen [Naprosyn] 250 mg PO TID PRN #12 tab PRN Reason: Pain Continue Aspirin 81 mg PO DAILY #30 Empagliflozin [Jardiance] 25 mg PO DAILY Atorvastatin [Lipitor] 80 mg PO HS Insulin NPH Hum/Reg Insulin Hm [humuLIN 70/30 Kwikpen] 60 unit SQ BID Ranolazine [Ranexa] 1,000 mg PO BID Fenofibrate Nanocrystallized [Fenofibrate] 145 mg PO DAILY Digoxin [Digitek] 250 mcg PO DAILY Furosemide [Lasix] 80 mg PO DAILY Nitroglycerin Sl Tabs [Nitrostat] 0.4 mg SUBLINGUAL Q5M PRN #30 tab PRN Reason: Chest Pain Isosorbide Mononitrate ER [Imdur] 60 mg PO DAILY Semaglutide [Ozempic] 1 mg SQ TH Rivaroxaban [Xarelto] 2.5 mg PO BID Clopidogrel [Plavix] 75 mg PO DAILY Discontinued Metoprolol Succinate (ER) [Toprol Xl] 100 mg PO DAILY Discharge Medication List Furosemide [Lasix] 80 mg PO DAILY 07/25/20 [History] Aspirin 81 mg PO DAILY #30 07/15/21 [Rx] Nitroglycerin Sl Tabs [Nitrostat] 0.4 mg SUBLINGUAL Q5M PRN #30 tab 07/15/21 [Rx] Atorvastatin [Lipitor] 80 mg PO HS 10/13/21 [History] Empagliflozin [Jardiance] 25 mg PO DAILY 10/13/21 [History] Insulin NPH Hum/Reg Insulin Hm [humuLIN 70/30 Kwikpen] 60 unit SQ BID 12/07/21 [History] Clopidogrel [Plavix] 75 mg PO DAILY 03/11/24 [History] Digoxin [Digitek] 250 mcg PO DAILY 03/11/24 [History] Fenofibrate Nanocrystallized [Fenofibrate] 145 mg PO DAILY 03/11/24 [History] Isosorbide Mononitrate ER [Imdur] 60 mg PO DAILY 03/11/24 [History] Ranolazine [Ranexa] 1,000 mg PO BID 03/11/24 [History] Rivaroxaban [Xarelto] 2.5 mg PO BID 03/11/24 [History] Semaglutide [Ozempic] 1 mg SQ TH 03/11/24 [History] Lidocaine 4% Patch 1 patch TOPICAL DAILY 30 Days #30 patch 03/13/24 [Rx] Metoprolol Succinate (ER) [Toprol XL] 150 mg PO DAILY 30 Days #90 tab 03/13/24 [Rx] Naproxen [Naprosyn] 250 mg PO TID PRN #12 tab 03/13/24 [Rx] Sacubitril/Valsartan [Entresto 24 mg-26 mg Tablet] 1 each PO BID 30 Days #60 tab 03/13/24 [Rx] Follow up Appointment(s)/Referral(s): Damion Hernandez MD [STAFF PHYSICIAN] - 1 Week (Office will call with appointment time and date.) Reyes Manuel MD [REFERRING] - 03/31/24 2:00 pm (Please call residency clinic and schedule first available PRIOR to discharging patient for appointment for posthospitalization follow-up and establishment of care by PCP as patient will require someone to manage insulin for his diabetes and medications for other comorbidities.) Patient Instructions/Handouts: Chest Pain (ED) Discharge Disposition: HOME SELF-CARE
--- NOTE | 2024-03-13 09:51 | CA ---
Transthoracic Echo Report Name: Shaun Roldan Age: 44 Gender: M : 1980 Exam Date: 03/12/2024 11:33 Exam Location: [facility] Ht (in): 72 Wt (lb): 260 Ordering Physician: Sunny Andrews Attending/Referring Phys: Ethnoarchaeologist Kasey Blum RDCS Procedure CPT: Indications: CP signif cardiac hx CAD, MS x 2 stents, AICD, htn Cardiac Hx: AICD, STENTS Technical Quality: Technically difficult study Contrast 1: Definity Total Dose (mL): 2 Contrast 2: Total Dose (mL): MEASUREMENTS (Male / Female) Normal Values 2D ECHO LV Diastolic Diameter PLAX 5.8 cm 4.2 - 5.9 / 3.9 - 5.3 cm LV Systolic Diameter PLAX 5.2 cm IVS Diastolic Thickness 1.2 cm 0.6 - 1.0 / 0.6 - 0.9 cm LVPW Diastolic Thickness 1.3 cm 0.6 - 1.0 / 0.6 - 0.9 cm LV Relative Wall Thickness 0.4 RV Internal Dim ED PLAX 3.9 cm LA Systolic Diameter LX 4.9 cm 3.0 - 4.0 / 2.7 - 3.8 cm LV Diastolic Volume MOD BP 184.7 cm??? 67 - 155 / 56 - 104 cm??? LV Systolic Volume MOD BP 122.7 cm??? 22 - 58 / 19 - 49 cm??? LV Ejection Fraction MOD BP 33.6 % >= 55 % LV Cardiac Index MOD BP 1645.0 cm???/min???m??? LV Diastolic Volume MOD 4C 194.1 cm??? LV Systolic Volume MOD 4C 136.6 cm??? LV Ejection Fraction MOD 4C 29.6 % LV Cardiac Index MOD 4C 1525.5 cm???/min???m??? LV Diastolic Length 4C 8.6 cm LV Systolic Length 4C 8.1 cm LV Diastolic Volume MOD 2C 174.2 cm??? LV Systolic Volume MOD 2C 107.7 cm??? LV Ejection Fraction MOD 2C 38.2 % LV Cardiac Index MOD 2C 1763.4 cm???/min???m??? LV Diastolic Length 2C 8.8 cm LV Systolic Length 2C 8.3 cm LA Volume 73.6 cm??? 18 - 58 / 22 - 52 cm??? LA Volume Index 29.6 cm???/m??? 16 - 28 cm???/m??? M-MODE Aortic Root Diameter MM 3.6 cm AV Cusp Separation MM 2.2 cm DOPPLER AV Peak Velocity 122.4 cm/s AV Peak Gradient 6.0 mmHg MV Area PHT 2.6 cm??? Mitral E Point Velocity 64.7 cm/s Mitral A Point Velocity 80.2 cm/s Mitral E to A Ratio 0.8 MV Deceleration Time 291.8 ms TR Peak Velocity 234.7 cm/s TR Peak Gradient 22.0 mmHg Right Ventricular Systolic Press 26.1 mmHg FINDINGS Left Ventricle Left ventricular ejection fraction is estimated at 30-35 %. Moderate increased septal wall thickness. Moderately increased left ventricular diastolic volume. Severely increased left ventricular systolic volume. Moderately decreased left ventricular ejection fraction. Right Ventricle Mild right ventricular dilatation. Right ventricular systolic pressure within normal limits. Right Atrium Moderate right atrial dilatation. No right atrial thrombus or mass seen. Left Atrium Moderately increased left atrial diameter. Mildly increased left atrial volume. Mildly increased left atrial area. Mitral Valve Structurally normal mitral valve. Mild mitral regurgitation. Aortic Valve Trileaflet aortic valve. No aortic valve stenosis or regurgitation. Tricuspid Valve Structurally normal tricuspid valve. No tricuspid stenosis, regurgitation or prolapse. Pulmonic Valve Structurally normal pulmonic valve. No pulmonic regurgitation. Pericardium No pericardial or pleural effusion. Aorta Normal size aortic root and proximal ascending aorta. CONCLUSIONS LVEF 30 to 35% Severely dilated LV cavity Moderate concentric LVH Mildly dilated RV. RVSP 27 mmHg Moderate biatrial dilatation Mild MR Previewed by: Dr Federico Esposito (Electronically Signed) Final Date: 13 March 2024 09:50
[2024-03-13 09:58] LABS: ALT 12 U/L (10-49); AST 17 U/L (14-35); Albumin 3.2 g/dL (3.8-4.9); Albumin/Globulin Ratio 1.45 Ratio (1.60-3.17); Alkaline Phosphatase 81 U/L (41-126); BUN/Creat Ratio 19.09 Ratio (12.00-20.00); Calcium 7.1 mg/dL (8.7-10.3); Carbon Dioxide 19.5 mmol/L (21.6-31.8); Chloride 110 mmol/L (96-109); Globulin 2.2 g/dL (1.6-3.3); Glucose 160 mg/dL (70-110); Potassium 3.5 mmol/L (3.5-5.5); Sodium 141 mmol/L (135-145); Total Bilirubin 0.3 mg/dL (0.3-1.2); Total Protein 5.4 g/dL (6.2-8.2)
[2024-03-13] MEDS: KETOROLAC 15 MG/ML 1 ML VIAL IVP STA (10:35)
[2024-03-13] MEDS: FENOFIBRATE 160 MG TAB PO SCH (10:43)
[2024-03-13] MEDS: LIDOCAINE 4% PATCH TOPICAL SCH (10:44)
[2024-03-13] MEDS: METOPROLOL SUCCINATE (ER) 50 MG TAB.ER.24H PO SCH (10:44)
--- NOTE | 2024-03-13 11:41 | P.PN ---
Subjective HISTORY OF PRESENT ILLNESS: This is a 44-year-old male with a past medical history significant for coronary artery disease, ischemic cardiomyopathy, AICD implantation, hypertension, hyperlipidemia, SVT. Patient follows in the office with Dr. Hernandez but has not been to the office in 2 years as he was living in [place] and just moved back to [place]. We have been asked to see the patient in consultation for chest pain. Patient examined at the bedside. Patient states he had an episode of chest discomfort yesterday. He states the pain is worse with exertion. He states the pain feels similar to his previous episodes when he required stenti ng. He states the pain felt like a heaviness in that a burning and stabbing sensation. He took nitro at home with little relief. He did receive Dilaudid when he came to the hospital which he states helped some. DIAGNOSTICS: - EKG reveals sinus mechanism with IVCD. No signs of acute ischemia. - Chest xray negative for acute process - Laboratory data: WBC 10.24. Hemoglobin 14.3. Platelet count 279. D-dimer 0.26. Sodium 139. Potassium 5.1. BUN 13.4. Creatinine 0.8. Magnesium 2.1. Troponin negative x 3. - Current home cardiac medications include aspirin 81 mg daily, Lipitor 80 mg at night, Jardiance 25 mg daily, Lasix 80 mg daily, Plavix 75 mg daily, Xarelto 2.5 mg twice a day, digoxin 250 mg daily, fenofibrate 145 mg daily, Imdur 60 mg daily, metoprolol succinate 100 mg daily, Ranexa 1000 mg twice a day - Most recent echocardiogram obtained in April 2021 revealed ejection fraction 20 to 25%, global hypokinesis, trace to mild MR, mild TR - Cardiac catheterization history: October 2021 revealing left circumflex is occluded, proximal LAD with mild disease only, mid LAD appears to have mild disease which gives rise into large diagonal branch which has an intermediate lesion, the LAD distally by the apical area appears to have a tight lesion unchanged from before. Patient underwent stenting of the RCA due to abnormal IFR 03/13/2024 Patient examined this morning to bedside. Patient states he continues to have chest pain when he is walking or sitting up. He also reports that the pain is worse with deep inspiration and chest wall palpation. He denies any shortness of breath. Denies dizziness or lightheadedness. Patient gives additional history today that he had a cardiac catheterization performed in August in [place] and had another stent placed but is unsure which vessel. Vital signs are stable. Echocardiogram completed revealing ejection fraction 30 to 35%, moderate concentric LVH, mild MR. PHYSICAL EXAM: VITAL SIGNS: Reviewed. GENERAL: Well-developed in no acute distress. HEENT: Head is normocephalic. Pupils are equal, round. Sclerae anicteric. Mucous membranes of the mouth are moist. Neck supple. No JVD or thyromegaly LUNGS: Respirations even and unlabored. Lungs essentially clear to auscultation bilaterally. HEART: Regular rate and rhythm. S1 and S2 heard. ABDOMEN: Soft. Nondistended. Nontender. EXTREMITIES: Normal range of motion. No clubbing or cyanosis. Right BKA. Minimal edema of left lower extremity NEUROLOGIC: Awake and alert. Oriented x 3. ASSESSMENT: Chest pain, troponin negative x 3 Coronary artery disease with previous stenting of the RCA Known occluded circumflex coronary artery Ischemic cardiomyopathy, EF 2025% now 3035 History of ICD implantation Hypertension Hyperlipidemia History of SVT Diabetes History of right BKA Obstructive sleep apnea Former nicotine dependence, quit in 2019 PLAN: Recommend lidocaine patch and naproxen as needed Increase metoprolol succinate to 150 mg daily Continue Entresto 24-26 mg that was added yesterday Continue additional cardiac medications Recommend outpatient stress testing Patient is stable for discharge home today from a cardiac standpoint Patient is to follow-up postdischarge with Dr. Hernandez Nurse practitioner note has been reviewed by physician. Signing provider agrees with the documented findings, assessment, and plan of care documented by BEAUTY ARTIST as a scribe. Objective - Vital Signs Vital signs: Vital Signs Temp 97.6 F 03/13/24 07:00 Pulse 72 03/13/24 07:00 Resp 18 03/13/24 07:00 BP 132/84 03/13/24 07:00 Pulse Ox 98 03/13/24 01:59 FiO2 Intake & Output 03/12/24 03/13/24 03/13/24 18:59 06:59 18:59 Intake Total 1560 10 370 Balance 1560 10 370 Intake: IV 20 10 10 Invasive Line 1 20 10 10 Oral 1540 360 Other: Voiding Method Toilet # Voids 3 2 - Labs CBC & Chem 7: 03/13/24 03:32 03/13/24 03:32 Labs: Abnormal Lab Results - Last 24 Hours (Table) 03/12/24 03/12/24 03/12/24 Range/Units 03:32 12:23 17:45 MCH (27.0-32.0) pg MCHC (32.0-37.0) g/dL RDW (11.5-14.5) % Chloride (96-109) mmol/L Carbon Dioxide (21.6-31.8) mmol/L Glucose (70-110) mg/dL POC Glucose (mg/dL) 137 H 214 H (70-110) mg/dL Hemoglobin A1c 10.2 H (<=6.0) % Calcium (8.7-10.3) mg/dL Total Protein (6.2-8.2) g/dL Albumin (3.8-4.9) g/dL Albumin/Globulin Ratio (1.60-3.17) Ratio 03/12/24 03/13/24 03/13/24 Range/Units 19:51 03:32 03:32 MCH 25.2 L (27.0-32.0) pg MCHC 31.4 L (32.0-37.0) g/dL RDW 15.5 H (11.5-14.5) % Chloride 110 H (96-109) mmol/L Carbon Dioxide 19.5 L (21.6-31.8) mmol/L Glucose 160 H (70-110) mg/dL POC Glucose (mg/dL) 369 H (70-110) mg/dL Hemoglobin A1c (<=6.0) % Calcium 7.1 L (8.7-10.3) mg/dL Total Protein 5.4 L (6.2-8.2) g/dL Albumin 3.2 L (3.8-4.9) g/dL Albumin/Globulin Ratio 1.45 L (1.60-3.17) Ratio 03/13/24 Range/Units 08:02 MCH (27.0-32.0) pg MCHC (32.0-37.0) g/dL RDW (11.5-14.5) % Chloride (96-109) mmol/L Carbon Dioxide (21.6-31.8) mmol/L Glucose (70-110) mg/dL POC Glucose (mg/dL) 175 H (70-110) mg/dL Hemoglobin A1c (<=6.0) % Calcium (8.7-10.3) mg/dL Total Protein (6.2-8.2) g/dL Albumin (3.8-4.9) g/dL Albumin/Globulin Ratio (1.60-3.17) Ratio
== END 2024-03-13 11:08 | disposition home or self-care (01) ==
LOC: EC 17:41 → 6NMEDSUR 20:22
PROVIDERS: ADMIT Internal Medicine; ATTEND Internal Medicine
DX: R07.89 Other chest pain (principal); G89.29 Other chronic pain; I25.10 Atherosclerotic heart disease of native coronary artery without angina pectoris; I25.5 Ischemic cardiomyopathy; E78.5 Hyperlipidemia, unspecified; G47.33 Obstructive sleep apnea (adult) (pediatric); E11.42 Type 2 diabetes mellitus with diabetic polyneuropathy; I11.0 Hypertensive heart disease with heart failure; I50.9 Heart failure, unspecified; I47.10 Supraventricular tachycardia, unspecified; E11.65 Type 2 diabetes mellitus with hyperglycemia; F32.A Depression, unspecified; F41.9 Anxiety disorder, unspecified; I25.2 Old myocardial infarction; Z87.891 Personal history of nicotine dependence; Z95.5 Presence of coronary angioplasty implant and graft; Z95.810 Presence of automatic (implantable) cardiac defibrillator; Z89.511 Acquired absence of right leg below knee; Z79.4 Long term (current) use of insulin; Z79.899 Other long term (current) drug therapy; Z79.82 Long term (current) use of aspirin; Z79.84 Long term (current) use of oral hypoglycemic drugs; Z79.02 Long term (current) use of antithrombotics/antiplatelets; Z79.01 Long term (current) use of anticoagulants; Z79.85 Long-term (current) use of injectable non-insulin antidiabetic drugs; Z88.0 Allergy status to penicillin; Z82.49 Family history of ischemic heart disease and other diseases of the circulatory system
CPT/HCPCS: 96376 ×2; 96375; 96374; 99285; 36415; 93005; 93306; 85379; 83880; 80061; 80053 ×3; 84443; 83735 ×3; 84100; 84484; 85025 ×2; 85027; 85610; 85730; 83036; 71046; G0378 ×3; Q9957; J1171 ×3; J2470

== ENCOUNTER 2024-03-21 18:47 | Inpatient (IN) | payer MEDICAID, OTHER ==
--- NOTE | 2024-03-21 19:21 | ED ---
General Adult HPI - General Chief complaint: Chest Pain Stated complaint: Chest Pain Time Seen by Provider: 03/21/24 19:00 Source: patient, RN notes reviewed, old records reviewed Mode of arrival: wheelchair Limitations: no limitations - History of Present Illness Initial comments: 44-year-old male history of CAD with ischemic cardiomyopathy uncontrolled diabetes, right BKA. Presenting with chest discomfort for the past several hours. Patient was recently admitted had serial cardiac enzymes and cardiology consultation. He states he is had a heart catheterization this year without intervention this was at an outside hospital in [place]. Patient recently moved back to [place]. He denies cough or fever. - Related Data Home Medications Medication Instructions Recorded Confirmed Furosemide [Lasix] 80 mg PO DAILY 07/25/20 03/11/24 Atorvastatin [Lipitor] 80 mg PO HS 10/13/21 03/11/24 Empagliflozin [Jardiance] 25 mg PO DAILY 10/13/21 03/11/24 Insulin NPH Hum/Reg Insulin Hm 60 unit SQ BID 12/07/21 03/11/24 [humuLIN 70/30 Kwikpen] Clopidogrel [Plavix] 75 mg PO DAILY 03/11/24 03/11/24 Digoxin [Digitek] 250 mcg PO DAILY 03/11/24 03/11/24 Fenofibrate Nanocrystallized 145 mg PO DAILY 03/11/24 03/11/24 [Fenofibrate] Isosorbide Mononitrate ER [Imdur] 60 mg PO DAILY 03/11/24 03/11/24 Ranolazine [Ranexa] 1,000 mg PO BID 03/11/24 03/11/24 Rivaroxaban [Xarelto] 2.5 mg PO BID 03/11/24 03/11/24 Semaglutide [Ozempic] 1 mg SQ TH 03/11/24 03/11/24 Previous Rx's Medication Instructions Recorded Aspirin 81 mg PO DAILY #30 07/15/21 Nitroglycerin Sl Tabs [Nitrostat] 0.4 mg SUBLINGUAL Q5M PRN #30 tab 07/15/21 Lidocaine 4% Patch 1 patch TOPICAL DAILY 30 Days #30 03/13/24 patch Metoprolol Succinate (ER) [Toprol 150 mg PO DAILY 30 Days #90 tab 03/13/24 XL] Naproxen [Naprosyn] 250 mg PO TID PRN #12 tab 03/13/24 Sacubitril/Valsartan [Entresto 24 1 each PO BID 30 Days #60 tab 03/13/24 mg-26 mg Tablet] Allergies Allergy/AdvReac Type Severity Reaction Status Date / Time Penicillins Allergy Unknown Verified 03/21/24 18:57 Childhood Review of Systems ROS Statement: Those systems with pertinent positive or pertinent negative responses have been documented in the HPI. ROS Other: All systems not noted in ROS Statement are negative. Past Medical History Past Medical History: Coronary Artery Disease (CAD), Chest Pain / Angina, Heart Failure, Diabetes Mellitus, Hyperlipidemia, Hypertension, Myocardial Infarction (SD), Sleep Apnea/CPAP/BIPAP, Syncope Additional Past Medical History / Comment(s): CARDIAC HISTORY PER DR. HORAN. AICD. IDDM type II. Neuropathy bilateral feet. 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 Migraines. Chronic back pain. Last Myocardial Infarction Date:: 2015 History of Any Multi-Drug Resistant Organisms: None Reported Past Surgical History: AICD, Heart Catheterization, Heart Catheterization With Stent, Orthopedic Surgery Additional Past Surgical History / Comment(s): 10/27/12 AICD, DFTs, PCI with 2 stents, R BKA. Past Anesthesia/Blood Transfusion Reactions: No Reported Reaction Date of Last Stent Placement:: 02/03/16 Type of Cardiac Device: AICD Device Placement Date:: 2012 Past Psychological History: Anxiety, Depression Smoking Status: Never smoker Past Alcohol Use History: None Reported Past Drug Use History: None Reported - Past Family History Mother Family Medical History: No Reported History Additional Family Medical History / Comment(s): Mother is healthy Brother(s) Family Medical History: Myocardial Infarction (SD) Additional Family Medical History / Comment(s): Brother of a SD at the age of 35yrs. Father Family Medical History: Liver Disease Additional Family Medical History / Comment(s): Father when pt was 19 yrs old from liver disease. He was an alcoholic. General Exam Limitations: no limitations General appearance: alert, in no apparent distress Head exam: Present: atraumatic, normocephalic Eye exam: Present: normal appearance, PERRL ENT exam: Present: normal exam Neck exam: Present: normal inspection. Absent: tenderness, meningismus Respiratory exam: Present: normal lung sounds bilaterally. Absent: respiratory distress, wheezes, rales, rhonchi Cardiovascular Exam: Present: regular rate, normal rhythm GI/Abdominal exam: Present: soft. 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 sent in by a medical professional or institution (, JAYA, DEPARTMENT DIRECTOR, urgent care, hospital, or senior living...) When possible be specific @ -[No] Did you speak to anyone other than the patient for history (EMS, parent, family, police, friend...)? What history was obtained from this source @ -[No] Did you review nursing and triage notes (agree or disagree)? Why? @ -[I reviewed and agree with nursing and triage notes] Were old charts reviewed (outside hosp., previous admission, EMS record, old EKG, old radiological studies, urgent care reports/EKG's, senior living records)? Report findings @ -[No old charts were reviewed] Differential Chest Pain: Stable Angina, Unstable Angina, STEMI, NSTEMI Aortic Dissection, Pneumothorax, Musculoskeletal, Esophageal Spasm GERD, Cholecystitis, Pancreatitis, Zoster, this is not meant to be an all-inclusive list. EKG interpreted by me (3pts min.). @Sinus rhythm rate of 96, widened QRS, MD interval 172, QRS duration 142, QTc [address] segment elevation. X-rays interpreted by me (1pt min.). @ -Chest x-ray negative for acute cardiopulmonary findings CT interpreted by me (1pt min.). @ -[None done] U/S interpreted by me (1pt. min.). @ -[None done] What testing was considered but not performed or refused? (CT, X-rays, U/S, labs)? Why? @ -[None] What meds were considered but not given or refused? Why? @ -[None] Did you discuss the management of the patient with other professionals (professionals i.e. JAYA Cruz, DEPARTMENT DIRECTOR, lab, RT, psych nurse, social service liaison, meat stock clerk, teacher, community relations officer, correctional case records supervisor)? Give summary @ -[facility] physician group Was smoking cessation discussed for >3mins.? @ -[No] Was critical care preformed (if so, how long)? @ -[No] Were there social determinants of health that impacted care today? How? (Homelessness, low income, unemployed, alcoholism, drug addiction, transportation, low edu. Level, literacy, decrease access to med. care, snf, rehab)? @ -[No] Was there de-escalation of care discussed even if they declined (Discuss DNR or withdrawal of care, Hospice)? DNR status @ -[No] What co-morbidities impacted this encounter? (DM, HTN, Smoking, COPD, CAD, Cancer, CVA, ARF, Chemo, Hep., AIDS, mental health diagnosis, sleep apnea, morbid obesity)? @ -Ischemic cardiomyopathy, CAD, uncontrolled diabetes Was patient admitted / discharged? Hospital course, mention meds given and route, prescriptions, significant lab abnormalities, going to OR and other pertinent info. @ -44-year-old male with significant past medical history including ischemic cardiomyopathy, known CAD with multiple stents and uncontrolled diabetes presents for evaluation of chest discomfort. Patient was recently seen in this hospital had serial cardiac enzymes and cardiology consultation. [place] to be musculoskeletal at that time. Patient's pain persists and has worsened just prior to arrival. No injury. No cough. No fever. EKG is sinus without ST segment changes. Chest x-ray is clear. He has normal CBC, normal CMP with the exception of elevated blood glucose, negative initial troponin. We did discuss the possibility of repeat cardiac testing in the emergency department versus admission. The patient does not feel comfortable with discharge at this time. Patient will be observed for serial cardiac enzymes, telemetry, cardiology consultation. Undiagnosed new problem with uncertain prognosis? @ -[No] Drug Therapy requiring intensive monitoring for toxicity (Heparin, Nitro, Insulin, Cardizem)? @ -[No] Were any procedures done? @ -[No] Diagnosis/symptom? @ -[Chest pain rule out Acute, or Chronic, or Acute on Chronic? @ -Acute Uncomplicated (without systemic symptoms) or Complicated (systemic symptoms)? @ -[default] Side effects of treatment? @ -[No] Exacerbation, Progression, or Severe Exacerbation? @ -[No] Poses a threat to life or bodily function? How? (Chest pain, USA, SD, pneumonia, PE, COPD, DKA, ARF, appy, cholecystitis, CVA, Diverticulitis, Homicidal, Suicidal, threat to staff... and all critical care pts) @ -Yes, ACS, arrhythmia - Lab Data Result diagrams: 03/21/24 19:50 03/21/24 19:50 Lab Results 03/21/24 03/21/24 03/21/24 Range/Units 19:50 19:50 19:50 WBC 9.7 (3.8-10.6) k/uL RBC 5.74 (4.30-5.90) m/uL Hgb 14.0 (13.0-17.5) gm/dL Hct 43.7 (39.0-53.0) % MCV 76.1 L (80.0-100.0) fL MCH 24.4 L (25.0-35.0) pg MCHC 32.1 (31.0-37.0) g/dL RDW 15.4 (11.5-15.5) % Plt Count 286 (150-450) k/uL MPV 7.1 Neutrophils % 69 % Lymphocytes % 21 % Monocytes % 5 % Eosinophils % 3 % Basophils % 1 % Neutrophils # 6.6 (1.3-7.7) k/uL Lymphocytes # 2.0 (1.0-4.8) k/uL Monocytes # 0.5 (0-1.0) k/uL Eosinophils # 0.3 (0-0.7) k/uL Basophils # 0.1 (0-0.2) k/uL Hypochromasia Slight Poikilocytosis Slight Microcytosis Slight PT 9.6 L (10.0-12.5) sec INR 0.8 (<1.2) APTT 24.2 (22.0-30.0) sec Sodium 137 (137-145) mmol/L Potassium 3.8 (3.5-5.1) mmol/L Chloride 109 H (98-107) mmol/L Carbon Dioxide 19 L (22-30) mmol/L Anion Gap 9 mmol/L BUN 16 (9-20) mg/dL Creatinine 0.88 (0.66-1.25) mg/dL Est GFR (CKD-EPI)AfAm >90 (>60 ml/min/1.73 sqM) Est GFR (CKD-EPI)NonAf >90 (>60 ml/min/1.73 sqM) Glucose 218 H (74-99) mg/dL Calcium 8.9 (8.4-10.2) mg/dL Magnesium 2.0 (1.6-2.3) mg/dL Total Bilirubin 0.6 (0.2-1.3) mg/dL AST 16 L (17-59) U/L ALT 16 (4-49) U/L Alkaline Phosphatase 98 (38-126) U/L Troponin I (0.000-0.034) ng/mL NT-Pro-B Natriuret Pep 336 pg/mL Total Protein 6.7 (6.3-8.2) g/dL Albumin 3.7 (3.5-5.0) g/dL 03/21/24 Range/Units 19:50 WBC (3.8-10.6) k/uL RBC (4.30-5.90) m/uL Hgb (13.0-17.5) gm/dL Hct (39.0-53.0) % MCV (80.0-100.0) fL MCH (25.0-35.0) pg MCHC (31.0-37.0) g/dL RDW (11.5-15.5) % Plt Count (150-450) k/uL MPV Neutrophils % % Lymphocytes % % Monocytes % % Eosinophils % % Basophils % % Neutrophils # (1.3-7.7) k/uL Lymphocytes # (1.0-4.8) k/uL Monocytes # (0-1.0) k/uL Eosinophils # (0-0.7) k/uL Basophils # (0-0.2) k/uL Hypochromasia Poikilocytosis Microcytosis PT (10.0-12.5) sec INR (<1.2) APTT (22.0-30.0) sec Sodium (137-145) mmol/L Potassium (3.5-5.1) mmol/L Chloride (98-107) mmol/L Carbon Dioxide (22-30) mmol/L Anion Gap mmol/L BUN (9-20) mg/dL Creatinine (0.66-1.25) mg/dL Est GFR (CKD-EPI)AfAm (>60 ml/min/1.73 sqM) Est GFR (CKD-EPI)NonAf (>60 ml/min/1.73 sqM) Glucose (74-99) mg/dL Calcium (8.4-10.2) mg/dL Magnesium (1.6-2.3) mg/dL Total Bilirubin (0.2-1.3) mg/dL AST (17-59) U/L ALT (4-49) U/L Alkaline Phosphatase (38-126) U/L Troponin I <0.012 (0.000-0.034) ng/mL NT-Pro-B Natriuret Pep pg/mL Total Protein (6.3-8.2) g/dL Albumin (3.5-5.0) g/dL Disposition Clinical Impression: Chest pain Disposition: ADMITTED IP TO THIS HOSP Condition: Stable Is patient prescribed a controlled substance at d/c from ED?: No Referrals: None,Stated [Primary Care Provider] - 1-2 days Time of Disposition: 21:31
--- NOTE | 2024-03-21 19:43 | XR ---
EXAMINATION TYPE: XR chest 2V DATE OF EXAM: 03/21/2024 7:36 PM COMPARISON: 03/11/2024 CLINICAL INDICATION: Male, 44 years old with history of Chest Pain, , TECHNIQUE: AP and lateral views FINDINGS: Left anterior chest wall AICD generator with right ventricular lead. Heart upper limits of normal in size. Mild interstitial density and mild periventricular cuffing. No consolidation or pleural effusio n. IMPRESSION: Mild interstitial density. Correlate to exclude bronchitis or asthma. Otherwise, no acute process see n. [facility], , 03/21/2024 7:40 PM
[2024-03-21 20:12] LABS: Basophils # (A) 0.1 k/uL (0-0.2); Basophils % (A) 1 %; Eosinophils # (A) 0.3 k/uL (0-0.7); Eosinophils % (A) 3 %; HCT 43.7 % (39.0-53.0); Hypochromasia Slight; Lymphocytes % (A) 21 %; MCH 24.4 pg (25.0-35.0); MCHC 32.1 g/dL (31.0-37.0); MCV 76.1 fL (80.0-100.0); Mean Platelet Volume 7.1; Microcytosis Slight; Monocytes # (A) 0.5 k/uL (0-1.0); Monocytes % (A) 5 %; Neutrophils # (A) 6.6 k/uL (1.3-7.7); Neutrophils % (A) 69 %; Platelet Count 286 k/uL (150-450); Poikilocytosis Slight; RBC 5.74 m/uL (4.30-5.90); RDW 15.4 % (11.5-15.5); WBC 9.7 k/uL (3.8-10.6)
[2024-03-21 20:24] LABS: ALT 16 U/L (4-49); AST 16 U/L (17-59); African American GFR (CKD) >90 (>60 ml/min/1.73 sqM); Albumin 3.7 g/dL (3.5-5.0); Alkaline Phosphatase 98 U/L (38-126); Anion Gap 9 mmol/L; Blood Urea Nitrogen 16 mg/dL (9-20); Calcium 8.9 mg/dL (8.4-10.2); Carbon Dioxide 19 mmol/L (22-30); Chloride 109 mmol/L (98-107); Glucose 218 mg/dL (74-99); Non-African American GFR(CKD) >90 (>60 ml/min/1.73 sqM); Potassium 3.8 mmol/L (3.5-5.1); Sodium 137 mmol/L (137-145); Total Bilirubin 0.6 mg/dL (0.2-1.3); Total Protein 6.7 g/dL (6.3-8.2)
[2024-03-21] MEDS: KETOROLAC 15 MG/ML 1 ML VIAL IVP STA (20:28)
[2024-03-21 20:33] LABS: NT-Pro-B-Type Natriuretic Pept 336 pg/mL
[2024-03-21 20:38] LABS: INR 0.8 (<1.2); Partial Thromboplastin Time 24.2 sec (22.0-30.0); Prothrombin Time 9.6 sec (10.0-12.5)
[2024-03-21] MEDS ORDERED: ACETAMINOPHEN TAB 325 MG TAB PO PRN (21:28)
[2024-03-21] MEDS ORDERED: NALOXONE 0.4 MG/ML 1 ML VIAL IV PRN (21:28)
[2024-03-21] MEDS ORDERED: IBUPROFEN 400 MG TAB PO PRN (21:28)
[2024-03-21] MEDS: ASPIRIN 325 MG TAB PO STA (21:31)
[2024-03-21] MEDS: ATORVASTATIN 80 MG TAB PO SCH (23:27)
[2024-03-21] MEDS: RANOLAZINE 500 MG TAB.ER.12H PO SCH (23:27)
--- NOTE | 2024-03-21 23:35 | P.HPIM ---
History of Present Illness H&P Date: 03/21/24 History of present illness; 44-year-old male with PMH of CAD with previous [place] and stent placement, ischemic cardiomyopathy with recent echocardiogram showing EF 30-35% (03/12/24) s/p AICD placement, hypertension, hyperlipidemia, SVT, diabetes mellitus type 2, bilateral lower extremity peripheral neuropathy, right BKA, obstructive sleep apnea CPAP dependent nightly, and migraine headaches. Patient presents to the emergency department with chest discomfort for the past several hours. He states that it felt as though his AICD went off, with a stabbing/burning pain located in the mid-left chest. He states that the pain was initially an 8/10 without any radiation. However he states that currently the pain is a 9/10, has radiated into his left neck/shoulder/arm as well as between his shoulder blades. He states he is try changing position to alleviate the pain without much success, and states that the medications he has received here have not helped him as of this time. He was recently hospitalized with chest pain. Was seen by cardiology, and was instructed to follow-up outpatient postdischarge with Dr. Hernandez. Denied cough, fever, chills, LE swelling, or LE p ain. Patient did report some SOB at the onset of his symptoms but denied it at the time of interview. Labratory review: -WBCs 9.7, hemoglobin 14.0, hematocrit 43.7, MCV 76.1, platelet 286; sodium 137, potassium 3.8, BUN 16, creatinine 0.88, glucose 218 -Troponin <0.012, proBNP 336 Imaging: -Chest x-ray done in the ER mild interstitial density, otherwise no acute process seen. -EKG done in the ER showed sinus rhythm heart rate of 96, no ST segment changes noted; QTc 411 Vitals: -Blood pressure 109/78, heart rate 88, respiratory rate 16, SpO2 97% on room air Patient admitted to internal medicine service REVIEW OF SYSTEMS: CONSTITUTIONAL: No fever, no malaise, no fatigue. HEENT: No recent visual problems or hearing problems. Denied any sore throat. CARDIOVASCULAR: No chest pain, orthopnea, PND, no palpitations, no syncope. PULMONARY: No shortness of breath, no cough, no hemoptysis. Does note some shortness of breath at time of initial onset. GASTROINTESTINAL: No diarrhea, no nausea, no vomiting, no abdominal pain. NEUROLOGICAL: No headaches, no weakness, no numbness. HEMATOLOGICAL: Denies any bleeding or petechiae. GENITOURINARY: Denies any burning micturition, frequency, or urgency. MUSCULOSKELETAL/RHEUMATOLOGICAL: Denies any joint pain, swelling, or any muscle pain. ENDOCRINE: Denies any polyuria or polydipsia. The rest of the 14-point review of systems is negative. PHYSICAL EXAMINATION: GENERAL: The patient is alert and oriented x3, not in any acute distress. Well developed, well nourished. HEENT: No scleral icterus. No conjunctival pallor. Normocephalic, atraumatic. CARDIOVASCULAR: S1 and S2 present. No murmurs, rubs, or gallops. PULMONARY: Chest is clear to auscultation, no wheezing or crackles. ABDOMEN: Soft, nontender, nondistended, normoactive bowel sounds. No palpable organomegaly. MUSCULOSKELETAL: No joint swelling or deformity. EXTREMITIES: No cyanosis, clubbing, or pedal edema. Eight leg BKA. NEUROLOGICAL: Gross neurological examination did not reveal any focal deficits. SKIN: No rashes. Assessment and plan 44-year-old male with PMH of CAD with previous [place] and stent placement, ischemic cardiomyopathy with recent echocardiogram showing EF 30-35% s/p AICD placement, hypertension, hyperlipidemia, SVT, diabetes mellitus type 2, bilateral lower extremity peripheral neuropathy, right BKA, obstructive sleep apnea CPAP d ependent nightly, and migraine headaches. Patient presents to the emergency department with chest discomfort for the past several hours. Discussed with the ED, patient has been admitted to the internal medicine service for further evaluation of his atypical chest pain. #Atypical chest pain, r/o ACS #Ischemic cardiomyopathy (recent echo showing EF 30-35%) #Known CAD with multiple stent placement #Chronic angina -Trend troponin; initial troponin <0.012 -proBNP 336 -EKG done in the ER showed sinus rhythm heart rate of 96, no ST segment changes noted; QTc 411 -Nitroglycerin prn for pain. Ordered Nitrobid ointment -Given aspirin 325 mg once in the ED -Continue with aspirin 81 mg daily -Continue home lipitor 80 mg daily -Continue home Ranexa 1000 mg twice daily -Continue Plavix 75 mg daily -Cardiac monitoring -Cardiology consulted -Heart healthy diet -Supplemental oxygen as needed #Diabetes mellitus -Initial glucose 218 on arrival -Hemoglobin A1c from most recent stay (03/12/2024) 10.2 -Maintained at home on Jardiance 25 mg daily, 60 units twice daily Humulin 70/30 in which she takes 7 units in the a.m. and 60 units at night and Ozempic; HOLD oral hypoglycemic agents -Accu-Cheks -Initiate sliding scale -Initiate Levemir 30 U qhs with 5U prandial insulin TIDAC -Monitor for hypoglycemia #History of atrial fibrillation -Continue Xarelto 2.5 mg twice daily -Continue digoxin 250 mcg daily #Hypertension -Continue Lasix 80 mg daily -Continue Entresto 24 mg - 26 mg twice daily -Continue metoprolol 150 mg daily #Hyperlipidemia -Continue Fenofibrate 145 mg daily -Continue Lipitor 80 mg nightly GI prophylaxis: Not indicated DVT prophylaxis: Maintained on Xarelto 2.5 mg twice daily Dictation was produced using [employer] dictation software. please excuse any grammatical, word or spelling errors. Past Medical History Past Medical History: Coronary Artery Disease (CAD), Chest Pain / Angina, Heart Failure, Diabetes Mellitus, Hyperlipidemia, Hypertension, Myocardial Infarction ([place]), Sleep Apnea/CPAP/BIPAP, Syncope Additional Past Medical History / Comment(s): CARDIAC HISTORY PER DR. HORAN. AICD. IDDM type II. Neuropathy bilateral feet. 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 Migraines. Chronic back pain. Last Myocardial Infarction Date:: 2015 History of Any Multi-Drug Resistant Organisms: None Reported Past Surgical History: AICD, Heart Catheterization, Heart Catheterization With Stent, Orthopedic Surgery Additional Past Surgical History / Comment(s): 10/27/12 AICD, DFTs, PCI with 2 stents, R BKA. Past Anesthesia/Blood Transfusion Reactions: No Reported Reaction Date of Last Stent Placement:: 02/03/16 Type of Cardiac Device: AICD Device Placement Date:: 2012 Past Psychological History: Anxiety, Depression Smoking Status: Never smoker Past Alcohol Use History: None Reported Past Drug Use History: None Reported - Past Family History Mother Family Medical History: No Reported History Additional Family Medical History / Comment(s): Mother is healthy Brother(s) Family Medical History: Myocardial Infarction ([place]) Additional Family Medical History / Comment(s): Brother of a [place] at the age of 35yrs. Father Family Medical History: Liver Disease Additional Family Medical History / Comment(s): Father when pt was 19 yrs old from liver disease. He was an alcoholic. Medications and Allergies Home Medications Medication Instructions Recorded Confirmed Type Furosemide [Lasix] 80 mg PO DAILY 07/25/20 03/11/24 History Aspirin 81 mg PO DAILY #30 07/15/21 03/11/24 Rx Nitroglycerin Sl Tabs [Nitrostat] 0.4 mg SUBLINGUAL Q5M PRN #30 tab 07/15/21 03/11/24 Rx Atorvastatin [Lipitor] 80 mg PO HS 10/13/21 03/11/24 History Empagliflozin [Jardiance] 25 mg PO DAILY 10/13/21 03/11/24 History Insulin NPH Hum/Reg Insulin Hm 60 unit SQ BID 12/07/21 03/11/24 History [humuLIN 70/30 Kwikpen] Clopidogrel [Plavix] 75 mg PO DAILY 03/11/24 03/11/24 History Digoxin [Digitek] 250 mcg PO DAILY 03/11/24 03/11/24 History Fenofibrate Nanocrystallized 145 mg PO DAILY 03/11/24 03/11/24 History [Fenofibrate] Isosorbide Mononitrate ER [Imdur] 60 mg PO DAILY 03/11/24 03/11/24 History Ranolazine [Ranexa] 1,000 mg PO BID 03/11/24 03/11/24 History Rivaroxaban [Xarelto] 2.5 mg PO BID 03/11/24 03/11/24 History Semaglutide [Ozempic] 1 mg SQ TH 03/11/24 03/11/24 History Lidocaine 4% Patch 1 patch TOPICAL DAILY 30 Days #30 03/13/24 Rx patch Metoprolol Succinate (ER) [Toprol 150 mg PO DAILY 30 Days #90 tab 03/13/24 Rx XL] Naproxen [Naprosyn] 250 mg PO TID PRN #12 tab 03/13/24 Rx Sacubitril/Valsartan [Entresto 24 1 each PO BID 30 Days #60 tab 03/13/24 Rx mg-26 mg Tablet] Allergies Allergy/AdvReac Type Severity Reaction Status Date / Time Penicillins Allergy Unknown Verified 03/21/24 18:57 Childhood Physical Exam Vitals: Vital Signs Temp Pulse Pulse Resp BP Pulse Ox 03/21/24 21:32 88 16 109/78 97 03/21/24 20:05 85 03/21/24 18:55 98.4 F 117 H 22 120/82 100 Intake and Output 03/21/24 03/21/24 03/21/24 06:59 14:59 22:59 Other: Weight 118.841 kg Results CBC & Chem 7: 03/21/24 19:50 03/21/24 19:50 Labs: Abnormal Lab Results - Last 24 Hours (Table) 03/21/24 03/21/24 03/21/24 Range/Units 19:50 19:50 19:50 MCV 76.1 L (80.0-100.0) fL MCH 24.4 L (25.0-35.0) pg PT 9.6 L (10.0-12.5) sec Chloride 109 H (98-107) mmol/L Carbon Dioxide 19 L (22-30) mmol/L Glucose 218 H (74-99) mg/dL AST 16 L (17-59) U/L
[2024-03-22] MEDS: RIVAROXABAN 2.5 MG TABLET PO SCH (00:57)
[2024-03-22] MEDS: NITROGLYCERIN OINT 1 INCH/GM PACKET TOPICAL PRN (04:40)
[2024-03-22] MEDS: HYDROcodone/APAP 5-325MG 1 EACH TAB PO STA (05:31)
[2024-03-22] MEDS ORDERED: INSULIN ASPART (NovoLOG) 100 UNIT/ML VIAL SQ SCH (07:30)
[2024-03-22] MEDS: INSULIN ASPART (NovoLOG) 100 UNIT/ML VIAL SQ SCH ×2 (09:10→18:19)
[2024-03-22] MEDS: MORPHINE SULFATE 4 MG/ML SYRINGE IVP PRN (10:00)
[2024-03-22] MEDS: ASPIRIN 81 MG PO SCH (10:10)
[2024-03-22] MEDS: SACUBITRIL/VALSARTAN 24 MG-26 MG TABLET PO SCH (10:10)
[2024-03-22] MEDS: FUROSEMIDE 80 MG TAB PO SCH (10:10)
[2024-03-22] MEDS: CLOPIDOGREL 75 MG TAB PO SCH (10:10)
[2024-03-22] MEDS: METOPROLOL SUCCINATE (ER) 50 MG TAB.ER.24H PO SCH (10:10)
[2024-03-22] MEDS: DIGOXIN 250 MCG TAB PO SCH (10:11)
[2024-03-22] MEDS: FENOFIBRATE 160 MG TAB PO SCH (10:11)
[2024-03-22 11:59] LABS: Glucose,Whole Blood 322 mg/dL (70-110)
--- NOTE | 2024-03-22 12:34 | P.CRDCN ---
History of Present Illness Consult date: 03/22/24 History of present illness: History of Present Illness: The patient is a 44-year-old male, with history of CAD, severe cardiomyopathy and ICD implantation who was recently discharged from the hospital and presents with recurrent chest discomfort. The discomfort occurred at rest. He has a history of mildly stenting, most recently in 2021 to the right coronary artery with known chronically occluded left circumflex and subtotally occluded distal LAD. He was in the hospital recently with symptoms of chest pain and no evidence of myocardial infarction. At that time his echocardiogram showed ejection fraction of 30 to 35%. Patient is limited in his physical activity, status post right BKA. He has moved back from [place] recently. He has prior history of atrial fibrillation. He has history of diabetes and hyperlipidemia. He has stopped smoking. He denies any dizziness or syncope. He has occasional palpitations. On presentation he was in sinus mechanism with intraventricular conduction delay, his troponin were normal and his NT proBNP was 336. Medications: Ozempic, Xarelto 2.5 mg twice a day, Ranexa 1 g twice a day, metoprolol succinate 150 mg daily, isosorbide mononitrate 60 mg daily, insulin, Lasix 80 mg daily, Jardiance, Plavix 75 mg daily, Lipitor 80 mg daily, aspirin once a day, Entresto 24-26 mg twice daily Review of Systems: Respiratory: He has dyspnea on exertion and a prior history of smoking GI: No nausea or vomiting . No history of peptic ulcer disease. No recent GI bleed. : No hematuria or dysuria. Nervous System: No stroke or seizure. Physical Examination: 44-year-old male, alert oriented no apparent distress,Blood pressure 152/90, Heart rate 70 Head: Normocephalic. Eyes: Sclerae nonicteric. Neck: Good carotid upstroke, no bruit, no jugular venous distention. Lungs: Clear to auscultation. Heart: Regular rate and rhythm, S1-S2, no S3, no rub. Systolic ejection murmur. Abdomen: Soft nontender, positive bowel sounds no organomegaly. Extremities: No edema on the left, status post left BKA. Labs: Troponin less than 0.012, hemoglobin 14, BUN 16, creatinine 0.88. NT proBNP 336. Chest x-ray with questionable interstitial density EKG: Sinus mechanism with IVCD Impression: 1. Chest discomfort with no evidence of myocardial infarction in the patient with known history of multivessel stenting 2. Severe ischemic cardiomyopathy status post ICD implantation 3. History of peripheral vascular disease 4. History of hypertension 5. History of diabetes 6. Prior history of smoking 7. Status post left BKA Plan: 1. Continue home medications 2. Proceed with MPI tomorrow 3. If there is evidence of significant inducible ischemia consider repeat coronary angiography by Dr. 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 Depending on his progress further recommendations will be made 5. Thank you for this consult we will follow with you Past Medical History Past Medical History: Coronary Artery Disease (CAD), Chest Pain / Angina, Heart Failure, Diabetes Mellitus, Hyperlipidemia, Hypertension, Myocardial Infarction ([place]), Sleep Apnea/CPAP/BIPAP, Syncope Additional Past Medical History / Comment(s): CARDIAC HISTORY PER DR. HORAN. AICD. IDDM type II. Neuropathy bilateral feet. 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 Migraines. Chronic back pain. Last Myocardial Infarction Date:: 2015 History of Any Multi-Drug Resistant Organisms: None Reported Past Surgical History: AICD, Heart Catheterization, Heart Catheterization With Stent, Orthopedic Surgery Additional Past Surgical History / Comment(s): 10/27/12 AICD, DFTs, PCI with 2 stents, R BKA. Past Anesthesia/Blood Transfusion Reactions: No Reported Reaction Date of Last Stent Placement:: 02/03/16 Type of Cardiac Device: AICD Device Placement Date:: 2012 Past Psychological History: Anxiety, Depression Additional Psychological History / Comment(s): rajesh . Smoking Status: Never smoker Past Alcohol Use History: None Reported Additional Past Alcohol Use History / Comment(s): quit in 2018 Past Drug Use History: None Reported - Past Family History Mother Family Medical History: No Reported History Additional Family Medical History / Comment(s): Mother is healthy Brother(s) Family Medical History: Myocardial Infarction ([place]) Additional Family Medical History / Comment(s): Brother of a [place] at the age of 35yrs. Father Family Medical History: Liver Disease Additional Family Medical History / Comment(s): Father when pt was 19 yrs old from liver disease. He was an alcoholic. Medications and Allergies Home Medications Medication Instructions Recorded Confirmed Type Furosemide [Lasix] 80 mg PO DAILY 07/25/20 03/22/24 History Aspirin 81 mg PO DAILY #30 07/15/21 03/22/24 Rx Nitroglycerin Sl Tabs [Nitrostat] 0.4 mg SUBLINGUAL Q5M PRN #30 tab 07/15/21 03/22/24 Rx Atorvastatin [Lipitor] 80 mg PO HS 10/13/21 03/22/24 History Empagliflozin [Jardiance] 25 mg PO DAILY 10/13/21 03/22/24 History Insulin NPH Hum/Reg Insulin Hm 60 unit SQ BID 12/07/21 03/22/24 History [humuLIN 70/30 Kwikpen] Clopidogrel [Plavix] 75 mg PO DAILY 03/11/24 03/22/24 History Digoxin [Digitek] 250 mcg PO DAILY 03/11/24 03/22/24 History Fenofibrate Nanocrystallized 145 mg PO DAILY 03/11/24 03/22/24 History [Fenofibrate] Isosorbide Mononitrate ER [Imdur] 60 mg PO DAILY 03/11/24 03/22/24 History Ranolazine [Ranexa] 1,000 mg PO BID 03/11/24 03/22/24 History Rivaroxaban [Xarelto] 2.5 mg PO BID 03/11/24 03/22/24 History Semaglutide [Ozempic] 1 mg SQ TH 03/11/24 03/22/24 History Lidocaine 4% Patch 1 patch TOPICAL DAILY 30 Days #30 03/13/24 03/22/24 Rx patch Metoprolol Succinate (ER) [Toprol 150 mg PO DAILY 30 Days #90 tab 03/13/24 03/22/24 Rx XL] Naproxen [Naprosyn] 250 mg PO TID PRN #12 tab 03/13/24 03/22/24 Rx Sacubitril/Valsartan [Entresto 24 1 tab PO DIRECTED 03/22/24 03/22/24 History mg-26 mg Tablet] Allergies Allergy/AdvReac Type Severity Reaction Status Date / Time Penicillins Allergy Unknown Verified 03/21/24 18:57 Childhood Physical Exam Vitals: Vital Signs Temp Pulse Pulse Resp BP BP Pulse Ox 03/22/24 09:00 16 03/22/24 07:00 97.5 F L 74 16 152/92 97 03/22/24 06:05 75 18 133/82 95 03/22/24 04:24 71 16 119/65 97 03/22/24 02:57 97.8 F 03/22/24 02:09 78 16 129/79 95 03/22/24 00:22 80 23 126/80 97 03/21/24 23:05 90 16 127/69 96 03/21/24 22:41 84 20 99 03/21/24 21:32 88 16 109/78 97 03/21/24 20:05 85 03/21/24 18:55 98.4 F 117 H 22 120/82 100 Intake and Output 03/21/24 03/22/24 03/22/24 22:59 06:59 14:59 Intake Total 118 Balance 118 Intake: Oral 118 Other: Voiding Method Toilet Weight 118.841 kg 118.841 kg Results 03/21/24 19:50 03/21/24 19:50 Cardiac Enzymes 03/21/24 03/21/24 03/21/24 Range/Units 19:50 19:50 21:34 AST 16 L (17-59) U/L Troponin I <0.012 <0.012 (0.000-0.034) ng/mL 03/22/24 03/22/24 Range/Units 01:33 06:01 AST (17-59) U/L Troponin I <0.012 <0.012 (0.000-0.034) ng/mL Coagulation 03/21/24 Range/Units 19:50 PT 9.6 L (10.0-12.5) sec APTT 24.2 (22.0-30.0) sec CBC 03/21/24 Range/Units 19:50 WBC 9.7 (3.8-10.6) k/uL RBC 5.74 (4.30-5.90) m/uL Hgb 14.0 (13.0-17.5) gm/dL Hct 43.7 (39.0-53.0) % Plt Count 286 (150-450) k/uL Comprehensive Metabolic Panel 03/21/24 Range/Units 19:50 Sodium 137 (137-145) mmol/L Potassium 3.8 (3.5-5.1) mmol/L Chloride 109 H (98-107) mmol/L Carbon Dioxide 19 L (22-30) mmol/L BUN 16 (9-20) mg/dL Creatinine 0.88 (0.66-1.25) mg/dL Glucose 218 H (74-99) mg/dL Calcium 8.9 (8.4-10.2) mg/dL AST 16 L (17-59) U/L ALT 16 (4-49) U/L Alkaline Phosphatase 98 (38-126) U/L Total Protein 6.7 (6.3-8.2) g/dL Albumin 3.7 (3.5-5.0) g/dL Current Medications Generic Name Dose Route Start Last Admin Trade Name Freq PRN Reason Stop Dose Admin Acetaminophen 650 mg 03/21/24 21:28 Acetaminophen Tab 325 Mg Tab PO Q6HR PRN Mild Pain or Fever > 100.5 Aspirin 81 mg 03/22/24 09:00 03/22/24 10:10 Aspirin 81 Mg PO 81 mg DAILY [facility] Administration Atorvastatin Calcium 80 mg 03/21/24 23:30 03/21/24 23:27 Atorvastatin 80 Mg Tab PO 80 mg HS [facility] Administration Clopidogrel Bisulfate 75 mg 03/22/24 09:00 03/22/24 10:10 Clopidogrel 75 Mg Tab PO 75 mg DAILY [facility] Administration Digoxin 250 mcg 03/22/24 09:00 03/22/24 10:11 Digoxin 250 Mcg Tab PO 250 mcg DAILY [facility]EN[facility] Administration Fenofibrate 160 mg 03/22/24 09:00 03/22/24 10:11 Fenofibrate 160 Mg Tab PO 160 mg DAILY KSEN[facility] Administration Furosemide 80 mg 03/22/24 09:00 03/22/24 10:10 Furosemide 80 Mg Tab PO 80 mg DAILY KSEN[facility] Administration Ibuprofen 400 mg 03/21/24 21:28 Ibuprofen 400 Mg Tab PO Q6HR PRN Mild Pain or Fever > 100.5 Insulin Aspart 5 unit 03/22/24 07:30 03/22/24 09:10 Insulin Aspart (Novolog) 100 Unit/Ml Vial SQ Not Given AC-TID [facility] Protocol Insulin Detemir 30 unit 03/22/24 21:00 Insulin Detemir (Levemir) 100 Unit/Ml Syr SQ [facility] Metoprolol Succinate 150 mg 03/22/24 09:00 03/22/24 10:10 Metoprolol Succinate (Er) 50 Mg Tab.Er.24h PO 150 mg DAILY [facility] Administration Morphine Sulfate 4 mg 03/22/24 09:43 03/22/24 10:00 Morphine Sulfate 4 Mg/Ml Syringe IVP 4 mg Q4HR PRN Administration Pain Naloxone HCl 0.2 mg 03/21/24 21:28 Naloxone 0.4 Mg/Ml 1 Ml Vial IV Q2M PRN Opioid Reversal Nitroglycerin 1 inch 03/22/24 01:13 03/22/24 04:40 Nitroglycerin Oint 1 Inch/Gm Packet TOPICAL 1 inch Q6HR PRN Administration Angina Ranolazine 1,000 mg 03/21/24 23:30 03/22/24 10:10 Ranolazine 500 Mg Tab.Er.12h PO 1,000 mg BID [facility] Administration Rivaroxaban 2.5 mg 03/21/24 23:45 03/22/24 10:10 Rivaroxaban 2.5 Mg Tablet PO 2.5 mg BID [facility] Administration Protocol Sacubitril/Valsartan 1 each 03/22/24 09:00 03/22/24 10:10 Sacubitril/Valsartan 24 Mg-26 Mg Tablet PO 1 each BID [facility] Administration Intake and Output 03/21/24 03/22/24 03/22/24 22:59 06:59 14:59 Intake Total 118 Balance 118 Intake: Oral 118 Other: Voiding Method Toilet Weight 118.841 kg 118.841 kg Patient Weight 03/23/24 06:59 Weight 118.841 kg 03/21/24 19:50 03/21/24 19:50
--- NOTE | 2024-03-22 13:15 | P.PN ---
Subjective Progress Note Date: 03/22/24 No new complaints. Ongoing chest pain. Trops negative. Gen: In NAD, non-toxic HEENT: normocephalic, atraumatic, hearing acuity is intant, mucous membranes moist CVS: perfusing all extremities well, no pitting edema, Respiratory: symmetric chest expansion, no accessory muscle use, GI: soft, NTTP, ND, : no suprapubic tenderness, no CVA tenderness MSK/Derm: no rashes, cyanosis Neuro: CN II-XII intact, no motor weakness, Psych: cooperative, euthymic mood, judgment and insight is intact Hospital Course: 44-year-old male with PMH of CAD with previous [place] and stent placement, ischemic cardiomyopathy with recent echocardiogram showing EF 30-35% (03/12/24) s/p AICD placement, hypertension, hyperlipidemia, SVT, diabetes mellitus type 2, bilateral lower extremity peripheral neuropathy, right BKA, obstructive sleep apnea CPAP dependent nightly, and migraine headaches. Patient presented to the emergency department with chest discomfort for the past several hours. Labratory review: -WBCs 9.7, hemoglobin 14.0, hematocrit 43.7, MCV 76.1, platelet 286; sodium 137, potassium 3.8, BUN 16, creatinine 0.88, glucose 218 -Troponin <0.012, proBNP 336 Imaging: -Chest x-ray done in the ER mild interstitial density, otherwise no acute proces s seen. -EKG done in the ER showed sinus rhythm heart rate of 96, no ST segment changes noted; QTc 411 Assessment and plan 44-year-old male with PMH of CAD with previous [place] and stent placement, ischemic cardiomyopathy with recent echocardiogram showing EF 30-35% s/p AICD placement, hypertension, hyperlipidemia, SVT, diabetes mellitus type 2, bilateral lower extremity peripheral neuropathy, right BKA, obstructive sleep apnea CPAP dependent nightly, and migraine headaches. Patient presents to the emergency department with chest discomfort for the past several hours. Discussed with the ED, patient has been admitted to the internal medicine service for further davi luation of his atypical chest pain. #Atypical chest pain, r/o ACS #Ischemic cardiomyopathy (recent echo showing EF 30-35%) #Known CAD with multiple stent placement #Chronic angina -Trend troponin; initial troponin <0.012 -proBNP 336 -EKG done in the ER showed sinus rhythm heart rate of 96, no ST segment changes noted; QTc 411 -Nitroglycerin prn for pain. Ordered Nitrobid ointment -Given aspirin 325 mg once in the ED -Continue with aspirin 81 mg daily -Continue home lipitor 80 mg daily -Continue home Ranexa 1000 mg twice daily -Continue Plavix 75 mg daily -Cardiac monitoring -Cardiology consulted -Heart healthy diet -Supplemental oxygen as needed #Diabetes mellitus -Initial glucose 218 on arrival -Hemoglobin A1c from most recent stay (03/12/2024) 10.2 -Maintained at home on Jardiance 25 mg daily, 60 units twice daily Humulin 70/30 in which she takes 7 units in the a.m. and 60 units at night and Ozempic; HOLD oral hypoglycemic agents -Accu-Cheks -Initiate sliding scale -Initiate Levemir 30 U qhs with 5U prandial insulin TIDAC -Monitor for hypoglycemia #History of atrial fibrillation -Continue Xarelto 2.5 mg twice daily -Continue digoxin 250 mcg daily #Hypertension -Continue Lasix 80 mg daily -Continue Entresto 24 mg - 26 mg twice daily -Continue metoprolol 150 mg daily #Hyperlipidemia -Continue Fenofibrate 145 mg daily -Continue Lipitor 80 mg nightly GI prophylaxis: Not indicated DVT prophylaxis: Maintained on Xarelto 2.5 mg twice daily Objective - Vital Signs Vital signs: Vital Signs Temp 97.5 F L 03/22/24 07:00 Pulse 74 03/22/24 07:00 Resp 16 03/22/24 09:00 BP 152/92 03/22/24 07:00 Pulse Ox 97 03/22/24 07:00 FiO2 Intake & Output 03/21/24 03/22/24 03/22/24 18:59 06:59 18:59 Intake Total 118 Balance 118 Weight 118.841 kg 118.841 kg Intake: Oral 118 Other: Voiding Method Toilet - Labs CBC & Chem 7: 03/21/24 19:50 03/21/24 19:50 Labs: Abnormal Lab Results - Last 24 Hours (Table) 03/21/24 03/21/24 03/21/24 Range/Units 19:50 19:50 19:50 MCV 76.1 L (80.0-100.0) fL MCH 24.4 L (25.0-35.0) pg PT 9.6 L (10.0-12.5) sec Chloride 109 H (98-107) mmol/L Carbon Dioxide 19 L (22-30) mmol/L Glucose 218 H (74-99) mg/dL POC Glucose (mg/dL) (70-110) mg/dL AST 16 L (17-59) U/L 03/22/24 Range/Units 11:57 MCV (80.0-100.0) fL MCH (25.0-35.0) pg PT (10.0-12.5) sec Chloride (98-107) mmol/L Carbon Dioxide (22-30) mmol/L Glucose (74-99) mg/dL POC Glucose (mg/dL) 322 H (70-110) mg/dL AST (17-59) U/L
[2024-03-22 13:55] LABS: Glucose,Whole Blood 309 mg/dL (70-110)
[2024-03-22] MEDS: ISOSORBIDE MONONITRATE ER 60 MG TAB.ER.24H PO SCH (14:18)
[2024-03-22] MEDS: DAPAGLIFLOZIN PROPANEDIOL 10 MG TABLET PO SCH (14:18)
[2024-03-22 17:43] LABS: Glucose,Whole Blood 229 mg/dL (70-110)
[2024-03-22 20:24] LABS: Glucose,Whole Blood 288 mg/dL (70-110)
[2024-03-22] MEDS: INSULIN DETEMIR (LEVEMIR) 100 UNIT/ML SYR SQ SCH (22:03)
[2024-03-23 05:36] LABS: Glucose,Whole Blood 201 mg/dL (70-110)
[2024-03-23 05:40] LABS: African American GFR (CKD) >90 (>60 ml/min/1.73 sqM); Anion Gap 7 mmol/L; Blood Urea Nitrogen 24 mg/dL (9-20); Calcium 8.9 mg/dL (8.4-10.2); Carbon Dioxide 25 mmol/L (22-30); Chloride 105 mmol/L (98-107); Glucose 198 mg/dL (74-99); Non-African American GFR(CKD) 80 (>60 ml/min/1.73 sqM); Potassium 4.4 mmol/L (3.5-5.1); Sodium 137 mmol/L (137-145)
[2024-03-23] MEDS ORDERED: REGADENOSON 0.4 MG/5 ML SYRINGE IV PRN (06:00)
[2024-03-23] MEDS ORDERED: AMINOPHYLLINE 500 MG/20 ML VIAL IV PRN (06:00)
[2024-03-23] MEDS ORDERED: CAFFEINE CITRATE 60 MG/3 ML VIAL IV PRN (06:00)
--- NOTE | 2024-03-23 10:55 | P.PN ---
Subjective History of Present Illness: The patient is a 44-year-old male, with history of CAD, severe cardiomyopathy and ICD implantation who was recently discharged from the hospital and presents with recurrent chest discomfort. The discomfort occurred at rest. He has a history of mildly stenting, most recently in 2021 to the right coronary artery with known chronically occluded left circumflex and subtotally occluded distal LAD. He was in the hospital recently with symptoms of chest pain and no evidence of myocardial infarction. At that time his echocardiogram showed ejection fraction of 30 to 35%. Patient is limited in his physical activity, s tatus post right BKA. He has moved back from [place] recently. He has prior history of atrial fibrillation. He has history of diabetes and hyperlipidemia. He has stopped smoking. He denies any dizziness or syncope. He has occasional palpitations. On presentation he was in sinus mechanism with intraventricular conduction delay, his troponin were normal and his NT proBNP was 336. Medications: Ozempic, Xarelto 2.5 mg twice a day, Ranexa 1 g twice a day, metoprolol succinate 150 mg daily, isosorbide mononitrate 60 mg daily, insulin, Lasix 80 mg daily, Jardiance, Plavix 75 mg daily, Lipitor 80 mg daily, aspirin once a day, Entresto 24-26 mg twice daily 03/23 Patient seen and examined. Patient still having intermittent chest pain, mainly improved with morphine and not necessarily improved with nitro paste previously. It appears similar to before. Awaiting Lexiscan stress test. Physical Examination: 44-year-old male, alert oriented no apparent distress,Blood pressure 152/90, Heart rate 70 Head: Normocephalic. Eyes: Sclerae nonicteric. Neck: Good carotid upstroke, no bruit, no jugular venous distention. Lungs: Clear to auscultation. Heart: Regular rate and rhythm, S1-S2, no S3, no rub. Systolic ejection murmur. Abdomen: Soft nontender, positive bowel sounds no organomegaly. Extremities: No edema on the left, status post left BKA. Labs: Troponin less than 0.012, hemoglobin 14, BUN 16, creatinine 0.88. NT proBNP 336. Chest x-ray with questionable interstitial density EKG: Sinus mechanism with IVCD Impression: 1. Chest discomfort with no evidence of myocardial infarction in the patient with known history of multivessel stenting 2. Severe ischemic cardiomyopathy status post ICD implantation 3. History of peripheral vascular disease 4. History of hypertension 5. History of diabetes 6. Prior history of smoking 7. Status post left BKA Plan: Await Lexiscan stress test. Patient's chest pain is somewhat atypical. If stress test normal patient will be discharged home. If abnormal likely consider heart catheterization. Objective - Vital Signs Vital signs: Vital Signs Temp 97.5 F L 03/23/24 07:00 Pulse 75 03/23/24 07:00 Resp 16 03/23/24 07:00 BP 113/70 03/23/24 07:00 Pulse Ox 96 03/23/24 07:00 FiO2 Intake & Output 03/22/24 03/23/24 03/23/24 18:59 06:59 18:59 Intake Total 354 Balance 354 Weight 118.841 kg 118.2 kg Intake: Oral 354 Other: Voiding Method Toilet # Voids 3 2 - Labs CBC & Chem 7: 03/21/24 19:50 03/23/24 04:36 Labs: Abnormal Lab Results - Last 24 Hours (Table) 03/22/24 03/22/24 03/22/24 Range/Units 11:57 13:51 17:42 BUN (9-20) mg/dL Glucose (74-99) mg/dL POC Glucose (mg/dL) 322 H 309 H 229 H (70-110) mg/dL 03/22/24 03/23/24 03/23/24 Range/Units 20:22 04:36 05:35 BUN 24 H (9-20) mg/dL Glucose 198 H (74-99) mg/dL POC Glucose (mg/dL) 288 H 201 H (70-110) mg/dL
[2024-03-23 12:14] LABS: Glucose,Whole Blood 231 mg/dL (70-110)
--- NOTE | 2024-03-23 12:14 | NM ---
EXAMINATION TYPE: NM stress lexiscan cardiolite DATE OF EXAM: 03/23/2024 COMPARISON: NONE CLINICAL INDICATION: Male, 44 years old with history of chest pain; TECHNIQUE: After the intravenous administration of 10.1 mCi Tc 99m Sestamibi - Cardiolite resting SP ECT images acquired 45 minutes post injection. The patient received 0.4mg Lexiscan, 26.6 mCi Tc 99m Sestamibi - Stress images obtained [address] injection FINDINGS: Review of stress and rest SPECT images demonstrates left ventricular chamber enlargement and large ar ea of fixed defect involving the inferior and inferolateral shane. Some reversibility seems to extend to the mid to basal lateral wall. Gated analysis shows limited augmentation of the inferior wall and some areas of dyskinesis. Estimated left ventricular ejection fraction of 37 %. TID is calculated a t 0.91, within normal limits. IMPRESSION: 1. Correlate for large area of old infarct along the inferior and inferolateral wall. 2. Findings suspicious for inducible karthikeyan-infarct at the mid to basal lateral wall. 3. Left ventricular chamber enlargement and diminished LVEF of 37%. Correlate for ischemic cardiomyop athy. [facility], , 03/23/2024 12:12 PM
--- NOTE | 2024-03-23 13:21 | CA ---
Lexiscan Nuclear Stress Test Report Name: Shaun Roldan Exam Date: 03/23/2024 10:30 Exam Location: [facility] Stress Ht (in): 71 Wt (lb): 262 BSA: 2.37 Ordering Phys: Milagros Burch MD Referring Phys: MILAGROS BURCH Technologist: Scott Allen Age: 44 Gender: M : 1980 Procedure CPT: Indications: Reflex order-Stress test ICD-10 Codes: Patient History: CHEST PAIN, DIFFICULTY IN BREATHING, PALPITATIONS, ANGINA, HTN, DIABETIC, HYPERCHOLESTEROLEMIA, FAMILY HX OF HEART DISEASE, PRIOR SMOKER, PRIOR CT, PRIOR HEART CATH WITH STENT, COPD, PACEMAKER Medications: Meds past 24 hrs: Pretest Chest Pain: STRESS TEST Lexiscan Protocol Exercise Duration (min:sec): 01:[address] Depressions (mm): Angina Score: Stafford Score: Resting HR (bpm): 68 Peak HR (bpm): 86 Resting BP (mmHg): 102 / 74 Peak BP (mmHg): 126 / 81 MPHR: 176 Target HR: 150 % MPHR: 49 METS: 1.0 Total Dose: Peak Dose: Atropine: Double Product: 38310 BP Response: Stress Termination: INFUSION COMPLETE Stress Symptoms: CHEST HEAVINESS Stress Summary: ECG ANALYSIS Resting ECG: Stress ECG: CONCLUSIONS At baseline EKG showed normal sinus rhythm, normal axis, Q waves V1 and V2, nonspecific 0.[address] depressions in the inferior leads. Patient recieved IV infusion of Lexiscan 0.4mg and at peak infusion EKG showed no significant change from baseline. Conclusions: 1. Nonspecific stress EKG portions and baseline EKG abnormalities 2. Nuclear imaging to be reported separately. Dr. Eduard Jensen DO (Electronically Signed) Final Date: 23 March 2024 13:20
[2024-03-23 17:10] LABS: Glucose,Whole Blood 245 mg/dL (70-110)
--- NOTE | 2024-03-23 17:49 | P.PN ---
Subjective Progress Note Date: 03/23/24 03/22/2024 No new complaints. Ongoing chest pain. Trops negative. 03/23/2024 patient seen and examined at bedside. No acute events overnight. Patient still experiencing some intermittent chest pain 4-5 sharp out of 10 radiating to the neck. Sodium 137 potassium 4.4 chloride 1 bicarb 25 BUN 24 creatinine 1.12 glucose 198 calcium 8 point Gen: In NAD, non-toxic HEENT: normocephalic, atraumatic, hearing acuity is intant, mucous membranes moist CVS: perfusing all extremities well, no pitting edema, Respiratory: symmetric chest expansion, no accessory muscle use, GI: soft, NTTP, ND, : no suprapubic tenderness, no CVA tenderness MSK/Derm: no rashes, cyanosis Neuro: CN II-XII intact, no motor weakness, Psych: cooperative, euthymic mood, judgment and insight is intact Assessment and plan 44-year-old male with PMH of CAD with previous IL and stent placement, ischemic cardiomyopathy with recent echocardiogram showing EF 30-35% s/p AICD placement, hypertension, hyperlipidemia, SVT, diabetes mellitus type 2, bilateral lower extremity peripheral neuropathy, right BKA, obstructive sleep apnea CPAP dependent nightly, and migraine headaches. Patient presents to the emergency department with chest discomfort for the past several hours. Discussed with the ED, patient has been admitted to the internal medicine service for further evaluation of his atypical chest pain. #Atypical chest pain, r/o ACS #Ischemic cardiomyopathy (recent echo showing EF 30-35%) #Known CAD with multiple stent placement #Chronic angina with possible acute component -Given aspirin 325 mg once in the ED -Continue with aspirin 81 mg daily -Continue home lipitor 80 mg daily -Continue home Ranexa 1000 mg twice daily -Continue Plavix 75 mg daily -Cardiac monitoring -Cardiology consulted. Stress test positive for reversible ischemia -Heart healthy diet -Supplemental oxygen as needed #Diabetes mellitus -Hemoglobin A1c from most recent stay (03/12/2024) 10.2 -Maintained at home on Jardiance 25 mg daily, 60 units twice daily Humulin 70/30 in which she takes 7 units in the a.m. and 60 units at night and Ozempic; HOLD oral hypoglycemic agents -Accu-Cheks -Initiate sliding scale -Initiate Levemir 30 U qhs with 5U prandial insulin TIDAC -Monitor for hypoglycemia #History of atrial fibrillation -Continue Xarelto 2.5 mg twice daily -Continue digoxin 250 mcg daily #Hypertension -Continue Lasix 80 mg daily -Continue Entresto 24 mg - 26 mg twice daily -Continue metoprolol 150 mg daily #Hyperlipidemia -Continue Fenofibrate 145 mg daily -Continue Lipitor 80 mg nightly GI prophylaxis: Not indicated DVT prophylaxis: Maintained on Xarelto 2.5 mg twice daily I saw and evaluated the patient during the mccollum and critical portions of this encounter, and discussed the case in detail with the resident author of this note, I agree with the Assessment and Plan, and my changes, if any, are highlighted in blue. Objective - Vital Signs Vital signs: Vital Signs Temp 97.5 F L 03/23/24 15:00 Pulse 71 03/23/24 15:00 Resp 17 03/23/24 15:00 BP 115/73 03/23/24 15:00 Pulse Ox 95 03/23/24 15:00 FiO2 Intake & Output 03/22/24 03/23/24 03/23/24 18:59 06:59 18:59 Intake Total 354 Balance 354 Weight 118.841 kg 118.2 kg Intake: Oral 354 Other: Voiding Method Toilet # Voids 3 2 2 - Labs CBC & Chem 7: 03/21/24 19:50 03/23/24 04:36 Labs: Abnormal Lab Results - Last 24 Hours (Table) 03/22/24 03/22/24 03/23/24 Range/Units 17:42 20:22 04:36 BUN 24 H (9-20) mg/dL Glucose 198 H (74-99) mg/dL POC Glucose (mg/dL) 229 H 288 H (70-110) mg/dL 03/23/24 03/23/24 03/23/24 Range/Units 05:35 12:12 17:09 BUN (9-20) mg/dL Glucose (74-99) mg/dL POC Glucose (mg/dL) 201 H 231 H 245 H (70-110) mg/dL
[2024-03-23 20:59] LABS: Glucose,Whole Blood 188 mg/dL (70-110)
[2024-03-24] MEDS ORDERED: HEPARIN SODIUM,PORCINE (1 ML) 2,500 UNIT in SODIUM CHLORIDE 0.9% 250 ML IRRIGATION PRN (07:00)
[2024-03-24] MEDS ORDERED: HEPARIN SODIUM,PORCINE 10,000 UNIT in SODIUM CHLORIDE 0.9% 1,000 ML IRRIGATION PRN (07:00)
[2024-03-24 07:43] LABS: Glucose,Whole Blood 194 mg/dL (70-110)
[2024-03-24 08:30] LABS: African American GFR (CKD) >90 (>60 ml/min/1.73 sqM); Anion Gap 10 mmol/L; Blood Urea Nitrogen 32 mg/dL (9-20); Calcium 8.6 mg/dL (8.4-10.2); Carbon Dioxide 25 mmol/L (22-30); Chloride 100 mmol/L (98-107); Glucose 200 mg/dL (74-99); Non-African American GFR(CKD) 78 (>60 ml/min/1.73 sqM); Potassium 3.9 mmol/L (3.5-5.1); Sodium 135 mmol/L (137-145)
[2024-03-24] MEDS ORDERED: DEXTROSE 50% SYRINGE 50 ML IVP PRN ×2 (09:38)
[2024-03-24] MEDS ORDERED: NITROGLYCERIN SL TABS 0.4 MG TAB SUBLINGUAL PRN (11:00)
[2024-03-24] MEDS ORDERED: ALPRAZolam 0.25 MG TAB PO PRN (11:00)
[2024-03-24] MEDS ORDERED: ALPRAZolam 0.5 MG TAB PO PRN (11:00)
--- NOTE | 2024-03-24 11:00 | P.PN ---
Subjective History of Present Illness: The patient is a 44-year-old male, with history of CAD, severe cardiomyopathy and ICD implantation who was recently discharged from the hospital and presents with recurrent chest discomfort. The discomfort occurred at rest. He has a history of mildly stenting, most recently in 2021 to the right coronary artery with known chronically occluded left circumflex and subtotally occluded distal LAD. He was in the hospital recently with symptoms of chest pain and no evidence of myocardial infarction. At that time his echocardiogram showed ejection fraction of 30 to 35%. Patient is limited in his physical activity, s tatus post right BKA. He has moved back from [place] recently. He has prior history of atrial fibrillation. He has history of diabetes and hyperlipidemia. He has stopped smoking. He denies any dizziness or syncope. He has occasional palpitations. On presentation he was in sinus mechanism with intraventricular conduction delay, his troponin were normal and his NT proBNP was 336. Medications: Ozempic, Xarelto 2.5 mg twice a day, Ranexa 1 g twice a day, metoprolol succinate 150 mg daily, isosorbide mononitrate 60 mg daily, insulin, Lasix 80 mg daily, Jardiance, Plavix 75 mg daily, Lipitor 80 mg daily, aspirin once a day, Entresto 24-26 mg twice daily 03/23 Patient seen and examined. Patient still having intermittent chest pain, mainly improved with morphine and not necessarily improved with nitro paste previously. It appears similar to before. Awaiting Lexiscan stress test. 03/24 Patient underwent Lexiscan stress test which showed fixed inferior defect however reversible basal lateral area concerning for ischemia. Additionally decreased EF 37%. He states he is still having intermittent chest pain. Physical Examination: 44-year-old male, alert oriented no apparent distress,Blood pressure 152/90, Heart rate 70 Head: Normocephalic. Eyes: Sclerae nonicteric. Neck: Good carotid upstroke, no bruit, no jugular venous distention. Lungs: Clear to auscultation. Heart: Regular rate and rhythm, S1-S2, no S3, no rub. Systolic ejection murmur. Abdomen: Soft nontender, positive bowel sounds no organomegaly. Extremities: No edema on the left, status post left BKA. Labs: Troponin less than 0.012, hemoglobin 14, BUN 16, creatinine 0.88. NT proBNP 336. Chest x-ray with questionable interstitial density EKG: Sinus mechanism with IVCD Impression: 1. Chest discomfort with no evidence of myocardial infarction in the patient with known history of multivessel stenting 2. Severe ischemic cardiomyopathy status post ICD implantation 3. History of peripheral vascular disease 4. History of hypertension 5. History of diabetes 6. Prior history of smoking 7. Status post left BKA Plan: Patient still with chest discomfort and stress test showing lateral ischemia. Therefore discussed heart catheterization patient is agreeable. Likely heart catheterization later today or tomorrow. Objective - Vital Signs Vital signs: Vital Signs Temp 97.7 F 03/24/24 07:00 Pulse 79 03/24/24 08:00 Resp 18 03/24/24 08:00 BP 122/83 03/24/24 07:00 Pulse Ox 98 03/24/24 07:00 FiO2 Intake & Output 03/23/24 03/24/24 03/24/24 18:59 06:59 18:59 Intake Total 118 118 Balance 118 118 Weight 119.5 kg Intake: Oral 118 118 Other: Voiding Method Toilet Toilet # Voids 2 2 - Labs CBC & Chem 7: 03/21/24 19:50 03/24/24 08:04 Labs: Abnormal Lab Results - Last 24 Hours (Table) 03/23/24 03/23/24 03/23/24 Range/Units 12:12 17:09 20:58 Sodium (137-145) mmol/L BUN (9-20) mg/dL Glucose (74-99) mg/dL POC Glucose (mg/dL) 231 H 245 H 188 H (70-110) mg/dL 03/24/24 03/24/24 Range/Units 07:42 08:04 Sodium 135 L (137-145) mmol/L BUN 32 H (9-20) mg/dL Glucose 200 H (74-99) mg/dL POC Glucose (mg/dL) 194 H (70-110) mg/dL
[2024-03-24 12:36] LABS: Glucose,Whole Blood 173 mg/dL (70-110)
[2024-03-24] MEDS: ASPIRIN 325 MG TAB PO STA (12:44)
[2024-03-24] MEDS: ATORVASTATIN 80 MG TAB PO STA (12:44)
[2024-03-24 13:29] LABS: Glucose,Whole Blood 201 mg/dL (70-110)
--- NOTE | 2024-03-24 14:52 | P.PN ---
Subjective Progress Note Date: 03/24/24 03/22/2024 No new complaints. Ongoing chest pain. Trops negative. 03/23/2024 patient seen and examined at bedside. No acute events overnight. Patient still experiencing some intermittent chest pain 4-5 sharp out of 10 radiating to the neck. Sodium 137 potassium 4.4 chloride 1 bicarb 25 BUN 24 creatinine 1.12 glucose 198 calcium 8 point 03/24/2024 patient seen and examined at bedside. No acute events overnight. Patient reported still experiencing intermittent chest pain 45 out of 10 sharp to burning radiating to the neck. Sodium 135 potassium 3.9 chloride 100 bicarb 25 BUN 32 creatinine 1.14 glucose 200 calcium 8.6.Lexiscan stress test which showed fixed inferior defect however reversible basal lateral area concerning for ischemia with decreased EF 37% Gen: In NAD, non-toxic HEENT: normocephalic, atraumatic, hearing acuity is intant, mucous membranes moist CVS: perfusing all extremities well, no pitting edema, Respiratory: symmetric chest expansion, no accessory muscle use, GI: soft, NTTP, ND, : no suprapubic tenderness, no CVA tenderness MSK/Derm: no rashes, cyanosis Neuro: CN II-XII intact, no motor weakness, Psych: cooperative, euthymic mood, judgment and insight is intact Assessment and plan 44-year-old male with PMH of CAD with previous OR and stent placement, ischemic cardiomyopathy with recent echocardiogram showing EF 30-35% s/p AICD placement, hypertension, hyperlipidemia, SVT, diabetes mellitus type 2, bilateral lower extremity peripheral neuropathy, right BKA, obstructive sleep apnea CPAP dependent nightly, and migraine headaches. Patient presents to the emergency department with chest discomfort for the past several hours. Discussed with the ED, patient has been admitted to the internal medicine service for further evaluation of his atypical chest pain. #Atypical chest pain, r/o ACS #Ischemic cardiomyopathy (recent echo showing EF 30-35%) #Known CAD with multiple stent placement #Chronic angina with possible acute component -Given aspirin 325 mg once in the ED -Continue with aspirin 81 mg daily -Continue home lipitor 80 mg daily -Continue home Ranexa 1000 mg twice daily -Continue Plavix 75 mg daily -Cardiac monitoring -Cardiology consulted. Stress test positive for reversible ischemia. Heart catheterization today or tomorrow -Heart healthy diet -Supplemental oxygen as needed #Diabetes mellitus -Hemoglobin A1c from most recent stay (03/12/2024) 10.2 -Maintained at home on Jardiance 25 mg daily, 60 units twice daily Humulin 70/30 in which she takes 7 units in the a.m. and 60 units at night and Ozempic; HOLD oral hypoglycemic agents -Accu-Cheks ACHS -Initiate sliding scale ACHS -Initiate Levemir 45 U nightly with 5U prandial insulin TIDAC -Monitor for hypoglycemia #History of atrial fibrillation -Continue Xarelto 2.5 mg twice daily -Continue digoxin 250 mcg daily #Hypertension -Continue Lasix 80 mg daily -Continue Entresto 24 mg - 26 mg twice daily -Continue metoprolol 150 mg daily #Hyperlipidemia -Continue Fenofibrate 145 mg daily -Continue Lipitor 80 mg nightly GI prophylaxis: Not indicated DVT prophylaxis: Maintained on Xarelto 2.5 mg twice daily I saw and evaluated the patient during the mccollum and critical portions of this encounter, and discussed the case in detail with the resident author of this note, I agree with the Assessment and Plan, and my changes, if any, are noted below. Continued chest pain. Abnormal stress test. Plans for cath tomorrow. Objective - Vital Signs Vital signs: Vital Signs Temp 97.7 F 03/24/24 07:00 Pulse 79 03/24/24 08:00 Resp 18 03/24/24 08:00 BP 122/83 03/24/24 07:00 Pulse Ox 99 03/24/24 11:17 FiO2 Intake & Output 03/23/24 03/24/24 03/24/24 18:59 06:59 18:59 Intake Total 118 118 Balance 118 118 Weight 119.5 kg Intake: Oral 118 118 Other: Voiding Method Toilet Toilet # Voids 2 2 1 - Labs CBC & Chem 7: 03/21/24 19:50 03/24/24 08:04 Labs: Abnormal Lab Results - Last 24 Hours (Table) 03/23/24 03/23/24 03/24/24 Range/Units 17:09 20:58 07:42 Sodium (137-145) mmol/L BUN (9-20) mg/dL Glucose (74-99) mg/dL POC Glucose (mg/dL) 245 H 188 H 194 H (70-110) mg/dL 12/07/1303/24/24 03/24/24 Range/Units 08:04 12:34 13:27 Sodium 135 L (137-145) mmol/L BUN 32 H (9-20) mg/dL Glucose 200 H (74-99) mg/dL POC Glucose (mg/dL) 173 H 201 H (70-110) mg/dL
[2024-03-24] MEDS ORDERED: chlordiazePOXIDE 25 MG CAP PO STA (15:46)
[2024-03-24] MEDS ORDERED: chlordiazePOXIDE 25 MG CAP PO SCH (16:00)
[2024-03-24 17:24] LABS: Glucose,Whole Blood 293 mg/dL (70-110)
[2024-03-24 20:03] LABS: Glucose,Whole Blood 333 mg/dL (70-110)
[2024-03-24] MEDS: chlordiazePOXIDE 25 MG CAP PO SCH (20:57)
[2024-03-24] MEDS: INSULIN DETEMIR (LEVEMIR) 100 UNIT/ML SYR SQ SCH (20:57)
[2024-03-24] MEDS ORDERED: INSULIN DETEMIR (LEVEMIR) 100 UNIT/ML SYR SQ SCH (21:00)
[2024-03-25] MEDS: INSULIN ASPART (NovoLOG) 100 UNIT/ML VIAL SQ SCH (07:31)
[2024-03-25 07:48] LABS: Glucose,Whole Blood 185 mg/dL (70-110)
[2024-03-25 08:57] LABS: BUN/Creat Ratio 30.09 Ratio (12.00-20.00); Blood Urea Nitrogen 33.1 mg/dL (9.0-27.0); Calcium 8.5 mg/dL (8.7-10.3); Carbon Dioxide 21.2 mmol/L (21.6-31.8); Chloride 106 mmol/L (96-109); Glucose 183 mg/dL (70-110); Potassium 4.5 mmol/L (3.5-5.5); Sodium 139 mmol/L (135-145)
[2024-03-25] MEDS: ASPIRIN 325 MG TAB PO STA (09:11)
[2024-03-25] MEDS: ATORVASTATIN 80 MG TAB PO STA (09:12)
[2024-03-25] MEDS: MIDAZOLAM 2 MG/2 ML VIAL IVP ONE (12:39)
[2024-03-25] MEDS: LIDOCAINE 1% INJ 10MG/ML (20 ML MDV) SQ ONE (12:40)
[2024-03-25] MEDS: VERAPAMIL SYRINGE (5 MG/10 ML) INTRAARTER ONE (12:41)
[2024-03-25] MEDS: HEPARIN SODIUM 1,000 UN/ML (10ML VL) IVP ONE ×3 (12:45→13:44)
[2024-03-25] MEDS: SODIUM CHLORIDE 0.9% 1,000 ML IV ONE (12:48)
[2024-03-25] MEDS: HEPARIN SODIUM (1,000 UNIT/ML) 1,000 UNIT in SODIUM CHLORIDE 0.9% 1,000 ML IRRIGATION ONE (12:49)
[2024-03-25] MEDS: HEPARIN SODIUM,PORCINE (1 ML) 2,500 UNIT in SODIUM CHLORIDE 0.9% 250 ML IRRIGATION ONE (12:49)
[2024-03-25] MEDS: TICAGRELOR 90 MG TAB PO ONE (13:11)
[2024-03-25] MEDS: PHENYLEPHRINE-0.9% NACL SYG 1,000 MCG/10 ML SYRINGE IVP ONE (13:16)
[2024-03-25] MEDS: IOPAMIDOL-370 100ML BTL INJ ONE ×2 (13:32→14:07)
[2024-03-25] MEDS ORDERED: MAG HYDROX/AL HYDROX/SIMETH 30 ML CUP PO PRN (14:10)
[2024-03-25] MEDS ORDERED: ZOLPIDEM 5 MG TAB PO PRN (14:10)
[2024-03-25] MEDS ORDERED: RX INFO: IV CONTRAST WAS GIVEN 1 EACH MISC MISCELLANE PRN (14:10)
[2024-03-25] MEDS ORDERED: NITROGLYCERIN SL TABS 0.4 MG TAB SUBLINGUAL PRN (14:10)
[2024-03-25] MEDS ORDERED: ATROPINE SULFATE 0.1 MG/ML 10ML SYRINGE IV PRN (14:10)
[2024-03-25] MEDS: SODIUM CHLORIDE 0.9% 1,000 ML in EMPTY BAG 1 BAG IV SCH (14:15)
--- NOTE | 2024-03-25 14:18 | P.PCN ---
Date of Procedure: 03/25/24 Operative Findings: CARDIAC CATHETERIZATION AND PERCUTANEOUS CORONARY INTERVENTION PERFORMING PHYSICIAN: Damion Hernandez MD, [facility] PROCEDURE PERFORMED: 1. Selective right and left coronary angiogram 2. Left heart catheterization 3. Successful stenting of distal LAD using 2.0 x 26 mm Glidden KIERA with an exce llent angiographic results 4. Successful stenting of the mid LAD using 3.0 x 33 mm Xience KIERA with an excellent angiographic results 5. Adjunctive use of IVUS and Dobler wire 6 Ultrasound-guided access of the right radial artery INDICATION: Chest discomfort concerning for unstable angina COMPLICATION: None APPROACH: Right radial LEVEL OF SEDATION: Moderate with the sedation time off 84 minutes PROCEDURE DESCRIPTION: After obtaining informed consent the patient was brought to the cardiac Order Processing Manager with right radial artery was cannulated using micropuncture technique under ultrasound guidance a micropuncture wire passed easily then I placed a 6 Panamanian 11 cm sheath at the right radial artery and give the patient 2 mg of verapamil intra-arterial and 5000's of heparin intravenous. Selective right and left coronary angiogram performed using JR4 and JL 3.5 catheters. Left heart catheterization was performed using 6 Panamanian pigtail catheter with after that we decided to do an IFR of the LAD. After zeroing Dobler wire and equalizing between the gallbladder and guiding catheter which was JL 3.5 guiding catheter the left main was engaged and the LAD was wired. The IFR came to be at 0.68. At that point I decided to intervene on the LAD. I did across the lesion in the distal LAD using a whisper wire with adjunctive use of the Corsair catheter. Balloon angioplasty was initially performed using 1 mm balloon and subsequently 2 mm balloon. After that I deployed 2.0 x 26 mm Lucas KIERA which was positioned under fluoroscopy guidance and deployed under fluoroscopy guidance with e xcellent angiographic results. Subsequently I did do an IVUS of the left anterior descending artery which showed a diameter around 3 mm in the midportion and 4 mm proximally. I predilated using 3 mm balloon before I deployed a 3.0 x 33 mm Xience KIERA where the stent was positioned under fluoroscopy guidance and deployed under fluoroscopy guidance and postdilated proximally using 4 mm NC balloon. Please note that I wired the diagonal branch before I ballooned and stented the LAD. An angiogram and IVUS was performed after showed good angiographic results but there was a haziness in the mid LAD appeared to be small thrombus. After pulling the wire to the thrombus went down. Wiring the LAD again showed that the thrombus was resolved completely with KUMAR-3 flow. The procedure was completed with no complication SELECTIVE CORONARY ANGIOGRAM: The right coronary artery: Large-caliber vessel and a dominant vessel with chronic total occlusion of the PLV branch of the LAD which is a large-caliber vessel with multiple layers of stent. Left main: Has mild disease only The left circumflex: Chronically occluded The left anterior descending artery: Has a tight lesion in the midportion documented to be flow-limiting by Doppler wire and subtotally occluded in the distal portion HEMODYNAMICS: LVEDP was about 8 mmHg CONCLUSION: DANCER OR CHOREOGRAPHER of the RCA DANCER OR CHOREOGRAPHER of the LCx Severe disease involving the mid and distal LAD. I did perform PCI of the mid and distal LAD Normal left-sided filling pressure POSTPROCEDURE MANAGEMENT: 1. Dual antiplatelet therapy using aspirin and present for at least 6 month 2. Aggressive cholesterol control 3. Follow-up with the patient
--- NOTE | 2024-03-25 16:15 | P.PN ---
Subjective Progress Note Date: 03/25/24 03/22/2024 No new complaints. Ongoing chest pain. Trops negative. 03/23/2024 patient seen and examined at bedside. No acute events overnight. Patient still experiencing some intermittent chest pain 4-5 sharp out of 10 radiating to the neck. Sodium 137 potassium 4.4 chloride 1 bicarb 25 BUN 24 creatinine 1.12 glucose 198 calcium 8 point 03/24/2024 patient seen and examined at bedside. No acute events overnight. Patient reported still experiencing intermittent chest pain 45 out of 10 sharp to burning radiating to the neck. Sodium 135 potassium 3.9 chloride 100 bicarb 25 BUN 32 creatinine 1.14 glucose 200 calcium 8.6.Lexiscan stress test which showed fixed inferior defect however reversible basal lateral area concerning for ischemia with decreased EF 37% 03/25/2024 patient seen and examined at bedside. No acute events overnight. Patient reported still experiencing intermittent chest pain 45 out of 10 sharp to burning radiating to the neck. Sodium 139 potassium 4.5 bicarb 21.2 BUN 33 creatinine 1.1 glucose 183 calcium 8.5 Gen: In NAD, non-toxic HEENT: normocephalic, atraumatic, hearing acuity is intant, mucous membranes moist CVS: perfusing all extremities well, no pitting edema, Respiratory: symmetric chest expansion, no accessory muscle use GI: soft, NTTP, ND : no suprapubic tenderness, no CVA tenderness MSK/Derm: no rashes, cyanosis, right leg BKA Neuro: CN II-XII intact, no motor weakness, Psych: cooperative, euthymic mood, judgment and insight is intact Assessment and plan 44-year-old male with PMH of CAD with previous [place] and stent placement, ischemic cardiomyopathy with recent echocardiogram showing EF 30-35% s/p AICD placement, hypertension, hyperlipidemia, SVT, diabetes mellitus type 2, bilateral lower extremity peripheral neuropathy, right BKA, obstructive sleep apnea CPAP dependent nightly, and migraine headaches. Patient presents to the emergency department with chest discomfort for the past several hours. Discussed with the ED, patient has been admitted to the internal medicine service for further evaluation of his atypical chest pain. #Unstable angina status post catheterization with stenting of the mid and distal LAD #Ischemic cardiomyopathy (recent echo showing EF 30-35%) with ICD implantation #Known CAD with multiple stent placement #Chronic angina with possible acute component -Given aspirin 325 mg once in the ED -Continue with aspirin 81 mg daily -Continue home lipitor 80 mg daily -Continue home Ranexa 1000 mg twice daily -Discontinued Plavix 75 mg -Cardiac monitoring -Heart healthy diet -Supplemental oxygen as needed -Cardiology consulted. Stress test positive for reversible ischemia. Heart catheterization done today with stenting of distal LAD and mid LAD. Initiated Brilinta 90 mg p.o. twice daily #Diabetes mellitus -Hemoglobin A1c from most recent stay (03/12/2024) 10.2 -Maintained at home on Jardiance 25 mg daily, 60 units twice daily Humulin 70/30 in which she takes 7 units in the a.m. and 60 units at night and Ozempic; HOLD oral hypoglycemic agents -Accu-Cheks ACHS -Initiate sliding scale ACHS -Initiate Levemir 45 U nightly with 6U prandial insulin TIDAC -Monitor for hypoglycemia #History of atrial fibrillation -Continue Xarelto 2.5 mg twice daily -Continue digoxin 250 mcg daily #Hypertension -Continue Lasix 80 mg daily -Continue Entresto 24 mg - 26 mg twice daily -Continue metoprolol 150 mg daily #Hyperlipidemia -Continue Fenofibrate 145 mg daily -Continue Lipitor 80 mg nightly GI prophylaxis: Not indicated DVT prophylaxis: Maintained on Xarelto 2.5 mg twice daily I saw and evaluated the patient during the mccollum and critical portions of this encounter, and discussed the case in detail with the resident author of this no te, I agree with the Assessment and Plan, and my changes, if any, are noted below. Continued chest pain. Underwent cardiac cath with stent placement. Started on ASA and Brilinta. Plans to monitor overnight. Repeat renal function in the AM. Objective - Vital Signs Vital signs: Vital Signs Temp 97.7 F 03/25/24 14:26 Pulse 66 03/25/24 15:26 Resp 18 03/25/24 15:26 BP 100/61 03/25/24 15:26 Pulse Ox 97 03/25/24 15:26 FiO2 Intake & Output 03/24/24 03/25/24 03/25/24 18:59 06:59 18:59 Intake Total 560 640 Balance 560 640 Weight 121.4 kg Intake: IV 400 Oral 560 240 Other: Voiding Method Toilet Toilet Toilet # Voids 1 2 - Labs CBC & Chem 7: 03/21/24 19:50 03/25/24 04:01 Labs: Abnormal Lab Results - Last 24 Hours (Table) 03/24/24 03/24/24 03/25/24 Range/Units 17:22 20:01 04:01 Carbon Dioxide 21.2 L (21.6-31.8) mmol/L BUN 33.1 H (9.0-27.0) mg/dL BUN/Creatinine Ratio 30.09 H (12.00-20.00) Ratio Glucose 183 H (70-110) mg/dL POC Glucose (mg/dL) 293 H 333 H (70-110) mg/dL Calcium 8.5 L (8.7-10.3) mg/dL 03/25/24 Range/Units 07:47 Carbon Dioxide (21.6-31.8) mmol/L BUN (9.0-27.0) mg/dL BUN/Creatinine Ratio (12.00-20.00) Ratio Glucose (70-110) mg/dL POC Glucose (mg/dL) 185 H (70-110) mg/dL Calcium (8.7-10.3) mg/dL
[2024-03-25 17:05] LABS: Glucose,Whole Blood 194 mg/dL (70-110)
[2024-03-25 19:49] LABS: Glucose,Whole Blood 359 mg/dL (70-110)
[2024-03-25] MEDS: TICAGRELOR 90 MG TAB PO SCH (21:10)
[2024-03-25] MEDS: INSULIN DETEMIR (LEVEMIR) 100 UNIT/ML SYR SQ SCH (21:10)
[2024-03-26 05:54] LABS: Glucose,Whole Blood 224 mg/dL (70-110)
[2024-03-26 07:43] VITALS: RESP 18
[2024-03-26] MEDS ORDERED: ASPIRIN 81 MG PO SCH (09:00)
[2024-03-26 09:19] LABS: BUN/Creat Ratio 21.17 Ratio (12.00-20.00); Blood Urea Nitrogen 25.4 mg/dL (9.0-27.0); Calcium 8.6 mg/dL (8.7-10.3); Carbon Dioxide 23.1 mmol/L (21.6-31.8); Chloride 105 mmol/L (96-109); Glucose 215 mg/dL (70-110); Potassium 4.3 mmol/L (3.5-5.5); Sodium 139 mmol/L (135-145)
[2024-03-26 09:20] LABS: Basophils # (A) 0.09 X 10*3/uL (0.00-0.10); Eosinophils # (A) 0.33 X 10*3/uL (0.04-0.35); Eosinophils % (A) 3.6 %; HCT 45.1 % (39.6-50.0); HGB 14.2 g/dL (13.0-17.0); Lymphocytes # (A) 2.08 X 10*3/uL (0.90-5.00); Lymphocytes % (A) 22.9 %; MCH 24.5 pg (27.0-32.0); MCHC 31.5 g/dL (32.0-37.0); MCV 77.9 FL (80.0-97.0); Mean Platelet Volume 9.8 FL (9.5-12.2); Monocytes # (A) 0.83 X 10*3/uL (0.20-1.00); Monocytes % (A) 9.1 %; NRBC Per 100 WBC 0 X 10*3/uL (0.00-0.01); Neutrophils # (A) 5.69 X 10*3/uL (1.80-7.70); Neutrophils % (A) 62.5 %; Platelet Count 289 X 10*3/uL (140-440); RBC 5.79 X 10*6/uL (4.40-5.60); RDW 15.9 % (11.5-14.5)
--- NOTE | 2024-03-26 11:43 | P.PN ---
Subjective HISTORY OF PRESENT ILLNESS: The patient is a 44-year-old male, with history of CAD, severe cardiomyopathy and ICD implantation who was recently discharged from the hospital and presents with recurrent chest discomfort. The discomfort occurred at rest. He has a history of mildly stenting, most recently in 2021 to the right coronary artery with known chronically occluded left circumflex and subtotally occluded distal LAD. He was in the hospital recently with symptoms of chest pain and no evidence of myocardial infarction. At that time his echocardiogram showed ejection fraction of 30 to 35%. Patient is limited in his physical activity, status post right BKA. He has moved back from [place] recently. He has prior history of atrial fibrillation. He has history of diabetes and hyperlipidemia. He has stopped smoking. He denies any dizziness or syncope. He has occasional palpitations. On presentation he was in sinus mechanism with intraventricular conduction delay, his troponin were normal and his NT proBNP was 336. Medications: Ozempic, Xarelto 2.5 mg twice a day, Ranexa 1 g twice a day, metoprolol succinate 150 mg daily, isosorbide mononitrate 60 mg daily, insulin, Lasix 80 mg daily, Jardiance, Plavix 75 mg daily, Lipitor 80 mg daily, aspirin once a day, Entresto 24-26 mg twice daily 03/23 Patient seen and examined. Patient still having intermittent chest pain, mainly improved with morphine and not necessarily improved with nitro paste previously. It appears similar to before. Awaiting Lexiscan stress test. 03/24 Patient underwent Lexiscan stress test which showed fixed inferior defect however reversible basal lateral area concerning for ischemia. Additionally decreased EF 37%. He states he is still having intermittent chest pain. 03/26/2024 Patient underwent cardiac catheterization yesterday with Dr. Hernandez revealing WELLFIELD TECHNICIAN of the RCA, WELLFIELD TECHNICIAN of the left circumflex, severe disease involving the mid and dis agnes LAD. Patient underwent PCI of the mid and distal LAD. Patient was also found to have normal left-sided filling pressures. Patient examined this morning the bedside. He still reports having some vague chest discomfort. He denies shortness of breath. Vital signs are stable. Blood pressure 133/86. PHYSICAL EXAM: VITAL SIGNS: Reviewed. GENERAL: Well-developed in no acute distress. NECK: Supple. No JVD or thyromegaly LUNGS: Respirations even and unlabored. Lungs essentially clear to auscultation bilaterally. HEART: Regular rate and rhythm. S1 and S2 heard. EXTREMITIES: Normal range of motion. No clubbing or cyanosis. Peripheral pulses intact. Left BKA. ASSESSMENT: Chest discomfort, status post cardiac catheterization with PCI of the mid and distal LAD Known CAD with previous multivessel stenting Severe ischemic cardiomyopathy status post ICD implantation History of peripheral vascular disease History of hypertension History of diabetes Prior history of smoking Status post left BKA PLAN: Continue dual antiplatelet therapy with aspirin and Brilinta for 6 months Continue high intensity statin. LDL goal less than 70. Continue additional cardiac medications Patient may be discharged home today from a cardiac standpoint He is to follow-up on an outpatient basis with Dr. Hernandez Nurse practitioner note has been reviewed by physician. Signing provider agrees with the documented findings, assessment, and plan of care documented by PMO LEAD as a scribe. Objective - Vital Signs Vital signs: Vital Signs Temp 97.6 F 03/26/24 07:00 Pulse 70 03/26/24 07:00 Resp 18 03/26/24 10:00 BP 133/86 03/26/24 07:00 Pulse Ox 98 03/26/24 08:05 FiO2 Intake & Output 03/25/24 03/26/24 03/26/24 18:59 06:59 18:59 Intake Total 640 920 Balance 640 920 Weight 119.9 kg Intake: IV 400 Oral 240 920 Other: Voiding Method Toilet Toilet Toilet # Voids 2 - Labs CBC & Chem 7: 03/26/24 03:24 03/26/24 03:24 Labs: Abnormal Lab Results - Last 24 Hours (Table) 03/25/24 03/25/24 03/26/24 Range/Units 17:04 19:48 03:24 RBC 5.79 H (4.40-5.60) X 10*6/uL MCV 77.9 L (80.0-97.0) FL MCH 24.5 L (27.0-32.0) pg MCHC 31.5 L (32.0-37.0) g/dL RDW 15.9 H (11.5-14.5) % Immature Gran # 0.08 H (0.00-0.04) X 10*3/uL BUN/Creatinine Ratio (12.00-20.00) Ratio Glucose (70-110) mg/dL POC Glucose (mg/dL) 194 H 359 H (70-110) mg/dL Calcium (8.7-10.3) mg/dL 03/26/24 03/26/24 Range/Units 03:24 05:53 RBC (4.40-5.60) X 10*6/uL MCV (80.0-97.0) FL MCH (27.0-32.0) pg MCHC (32.0-37.0) g/dL RDW (11.5-14.5) % Immature Gran # (0.00-0.04) X 10*3/uL BUN/Creatinine Ratio 21.17 H (12.00-20.00) Ratio Glucose 215 H (70-110) mg/dL POC Glucose (mg/dL) 224 H (70-110) mg/dL Calcium 8.6 L (8.7-10.3) mg/dL
[2024-03-26 12:29] LABS: Glucose,Whole Blood 304 mg/dL (70-110)
[2024-03-26 14:52] VITALS: BP 103/66; PULSE 74; TEMP 97.4
[2024-03-26 15:21] VITALS: BMI 36.8
--- NOTE | 2024-03-26 16:07 | P.DS ---
Providers Date of admission: 03/21/24 21:29 Attending physician: Bree Alcantara MD Consults: 03/21/24 21:28 Consult Physician Routine Consulting Provider: Damion Hernandez Consult Reason/Comments: CP Do you want consulting provider notified?: Yes 03/25/24 14:11 Consult Physician Routine Consulting Provider: Cardiology Garo Consult Reason/Comments: Post Interventional Patient Do you want consulting provider notified?: Already Contacted Primary care physician: Stated None Hospital Course: Hospital Course: 44-year-old male with PMH of CAD with previous [place] and stent placement, ischemic cardiomyopathy with recent echocardiogram showing EF 30-35% (03/12/24) s/p AICD placement, hypertension, hyperlipidemia, SVT, diabetes mellitus type 2, bilateral lower extremity peripheral neuropathy, right BKA, obstructive sleep apnea CPAP dependent nightly, and migraine headaches. Patient presents to the emergency department with chest discomfort for the past several hours. Labratory review: -WBCs 9.7, hemoglobin 14.0, hematocrit 43.7, MCV 76.1, platelet 286; sodium 137, potassium 3.8, BUN 16, creatinine 0.88, glucose 218 -Troponin <0.012, proBNP 336 Imaging: -Chest x-ray done in the ER mild interstitial density, otherwise no acute process seen. -EKG done in the ER showed sinus rhythm heart rate of 96, no ST segment changes noted; QTc 411 Patient evaluated for chest pain to rule out ACS. Cardiology consulted, aspirin provided, home Lipitor started, home Ranexa started, home Plavix started, placed on cardiac monitoring, stress test ordered, and troponins were trended. Echocardiogram reported in 03/12 reported left ventricular ejection fraction estimated at 30 to 35% with severely dilated LV cavity and moderate concentric LVH, moderate biatrial dilatation, and mild mitral regurgitation. Troponins negative at less than 0.012. Lexiscan stress test done reported positive for reversible ischemia. Heart catheterization done with PCI of distal and mid LAD. Patient symptoms noted to have improved throughout hospital stay. No new symptoms or complications occurred. Patient discharged today by cardiology and prescribed Brilinta and discontinue Plavix. Patient also to resume home aspirin and Xarelto. Patient advised to follow-up with PCP and cardiology for medical optimization on outpatient basis. Final Diagnosis: #Unstable angina status post catheterization with stenting of the mid and distal LAD #Ischemic cardiomyopathy (recent echo showing EF 30-35%) with ICD implantation #Insulin dependent Diabetes mellitus #History of atrial fibrillation #Hypertension #Hyperlipidemia Physical examination: Vital signs reviewed General: non toxic, no distress Derm: no unusual rashes/lesions, warm Head: atraumatic, normocephalic, symmetric Eyes: EOMI, anicteric sclera, pupils equal round reactive to light ENT: Nose and ears atraumatic Neck: No cervical lymphadenopathy, trachea midline, supple Mouth: no lip lesion, mucus membranes moist Cardiovascular: S1S2 reg, no murmur Lungs: CTA bilateral, no rhonchi, no rales, no accessory muscle use Abdominal: soft, nondistended, nontender to palpation, no guarding Ext: muscle strength 5 out of 5 in all 4 extremities grossly, no gross muscle atrophy, no contractures, no edema, R BKA Neuro: CN II-XI grossly intact, no gross focal neuro deficits Psych: Alert, oriented, appropriate affect and mood I saw and evaluated the patient during the mccollum and critical portions of this encounter, and discussed the case in detail with the resident author of this note, I agree with the Assessment and Plan, and my changes, if any, are noted below. Cleared for discharge by Cardiology. Discussed with case management and Cardiology Jaimee CARVAJAL. One month of Brilinta covered by our pharmacy, Cardiology will consider switching to Plavix after that. Patient Condition at Discharge: Stable Plan - Discharge Summary New Discharge Prescriptions: New Ticagrelor [Brilinta] 90 mg PO BID #60 tab oxyCODONE HCL/ACETAMINOPHEN [Percocet 5-325 mg] 1 tab PO Q6HR PRN 3 Days #12 tab PRN Reason: Pain Continue Aspirin 81 mg PO DAILY #30 Empagliflozin [Jardiance] 25 mg PO DAILY Atorvastatin [Lipitor] 80 mg PO HS Insulin NPH Hum/Reg Insulin Hm [humuLIN 70/30 Kwikpen] 60 unit SQ BID Ranolazine [Ranexa] 1,000 mg PO BID Fenofibrate Nanocrystallized [Fenofibrate] 145 mg PO DAILY Digoxin [Digitek] 250 mcg PO DAILY Metoprolol Succinate (ER) [Toprol XL] 150 mg PO DAILY 30 Days #90 tab Lidocaine 4% Patch 1 patch TOPICAL DAILY 30 Days #30 patch Furosemide [Lasix] 80 mg PO DAILY Nitroglycerin Sl Tabs [Nitrostat] 0.4 mg SUBLINGUAL Q5M PRN #30 tab PRN Reason: Chest Pain Isosorbide Mononitrate ER [Imdur] 60 mg PO DAILY Semaglutide [Ozempic] 1 mg SQ TH Rivaroxaban [Xarelto] 2.5 mg PO BID Naproxen [Naprosyn] 250 mg PO TID PRN #12 tab PRN Reason: Pain Changed Sacubitril/Valsartan [Entresto 24 mg-26 mg Tablet] 1 tab PO BID #0 Discontinued Clopidogrel [Plavix] 75 mg PO DAILY Discharge Medication List Furosemide [Lasix] 80 mg PO DAILY 07/25/20 [History] Aspirin 81 mg PO DAILY #30 07/15/21 [Rx] Nitroglycerin Sl Tabs [Nitrostat] 0.4 mg SUBLINGUAL Q5M PRN #30 tab 07/15/21 [Rx] Atorvastatin [Lipitor] 80 mg PO HS 10/13/21 [History] Empagliflozin [Jardiance] 25 mg PO DAILY 10/13/21 [History] Insulin NPH Hum/Reg Insulin Hm [humuLIN 70/30 Kwikpen] 60 unit SQ BID 12/07/21 [History] Digoxin [Digitek] 250 mcg PO DAILY 03/11/24 [History] Fenofibrate Nanocrystallized [Fenofibrate] 145 mg PO DAILY 03/11/24 [History] Isosorbide Mononitrate ER [Imdur] 60 mg PO DAILY 03/11/24 [History] Ranolazine [Ranexa] 1,000 mg PO BID 03/11/24 [History] Rivaroxaban [Xarelto] 2.5 mg PO BID 03/11/24 [History] Semaglutide [Ozempic] 1 mg SQ TH 03/11/24 [History] Lidocaine 4% Patch 1 patch TOPICAL DAILY 30 Days #30 patch 03/13/24 [Rx] Metoprolol Succinate (ER) [Toprol XL] 150 mg PO DAILY 30 Days #90 tab 03/13/24 [Rx] Naproxen [Naprosyn] 250 mg PO TID PRN #12 tab 03/13/24 [Rx] Sacubitril/Valsartan [Entresto 24 mg-26 mg Tablet] 1 tab PO BID #0 03/26/24 [Rx] Ticagrelor [Brilinta] 90 mg PO BID #60 tab 03/26/24 [Rx] oxyCODONE HCL/ACETAMINOPHEN [Percocet 5-325 mg] 1 tab PO Q6HR PRN 3 Days #12 tab 03/26/24 [Rx] Follow up Appointment(s)/Referral(s): Damion Hernandez MD [STAFF PHYSICIAN] - 1 Week (Office will call with appointment date and time.) Reyes Manuel MD [REFERRING] - 1 Week Patient Instructions/Handouts: *Surgery [facility] - After Heart Catheterization - Electrical Continuity Tester Instructions Activity/Diet/Wound Care/Special Instructions: Please see PCP (Dr. Manuel) and Cardiology (Dr. Hernandez) NO FLEXING AT THE WRIST OF LIFTING ANYTHING HEAVIER THAN 5 POUNDS FOR 5 DAYS REMOVE ANY DRESSING OVER PUNCTURE SITE IN 24 HOURS AND LEAVE OPEN TO AIR DO NOT SUBMERGE WRIST IN WATER FOR 3 DAYS IF SITE BLEEDS, HOLD PRESSURE FOR 10 MIN IF DOESN'T SUBSIDE HAVE SOMEONE DRIVE YOU TO ER OR CALL EMS WATCH FOR NUMBNESS, TINGLING, TEMPERATURE OR COLOR CHANGE IN AFFECTED ARM AND RETURN TO ER FOR ANY OF THESE. Discharge/Stand Alone Forms: Area PCPs Discharge Disposition: HOME SELF-CARE
== END 2024-03-26 16:25 | disposition home or self-care (01) | DRG 322 ==
LOC: EC 18:47 → 6NMEDSUR 21:28 → OBSVTOIN 21:29 → 6NMEDSUR 03-22 01:19
PROVIDERS: ADMIT Internal Medicine; ATTEND Internal Medicine
PROC: B240ZZ3 Ultrasonography of Single Coronary Artery, Intravascular (ICD-10-PCS; 2024-03-25)
PROC: 027135Z Dilation of Coronary Artery, Two Arteries with Two Drug-eluting Intraluminal Devices, Percutaneous Approach (ICD-10-PCS; principal; 2024-03-25 07:30)
PROC: 4A023N7 Measurement of Cardiac Sampling and Pressure, Left Heart, Percutaneous Approach (ICD-10-PCS; 2024-03-25 07:30)
PROC: B2111ZZ Fluoroscopy of Multiple Coronary Arteries using Low Osmolar Contrast (ICD-10-PCS; 2024-03-25 07:30)
PROC: 4A033BC Measurement of Arterial Pressure, Coronary, Percutaneous Approach (ICD-10-PCS; 2024-03-25 07:30)
DX: I25.110 Atherosclerotic heart disease of native coronary artery with unstable angina pectoris (principal); I50.22 Chronic systolic (congestive) heart failure; I11.0 Hypertensive heart disease with heart failure; E11.42 Type 2 diabetes mellitus with diabetic polyneuropathy; E11.51 Type 2 diabetes mellitus with diabetic peripheral angiopathy without gangrene; I48.91 Unspecified atrial fibrillation; Z89.511 Acquired absence of right leg below knee; Z89.512 Acquired absence of left leg below knee; Z79.4 Long term (current) use of insulin; I34.0 Nonrheumatic mitral (valve) insufficiency; I25.82 Chronic total occlusion of coronary artery; E78.5 Hyperlipidemia, unspecified; I25.5 Ischemic cardiomyopathy; G47.33 Obstructive sleep apnea (adult) (pediatric); G89.29 Other chronic pain; M54.9 Dorsalgia, unspecified; Z79.01 Long term (current) use of anticoagulants; Z79.02 Long term (current) use of antithrombotics/antiplatelets; Z87.891 Personal history of nicotine dependence; Z82.49 Family history of ischemic heart disease and other diseases of the circulatory system; Z95.810 Presence of automatic (implantable) cardiac defibrillator; Z79.85 Long-term (current) use of injectable non-insulin antidiabetic drugs; Z79.82 Long term (current) use of aspirin; I25.2 Old myocardial infarction; Z95.5 Presence of coronary angioplasty implant and graft; Z79.84 Long term (current) use of oral hypoglycemic drugs; Z79.899 Other long term (current) drug therapy
CPT/HCPCS: 36415; 71046; 78452; 80048; 80053; 83735; 83880; 84484; 85025; 85610; 85730; 92978; 93005; 93017; 93458; 93799; 94760; 96374; 99285

== ENCOUNTER 2024-04-07 17:45 | Inpatient (IN) | payer MEDICAID, OTHER ==
--- NOTE | 2024-04-07 19:19 | ED ---
Chest Pain HPI - General Source: patient Mode of arrival: ambulatory Limitations: no limitations <Rigo Angelo - Last Filed: 04/07/24 19:19> - General Source: patient, RN notes reviewed, old records reviewed <Amado Mccoy - Last Filed: 04/08/24 00:01> - General Chief Complaint: Chest Pain Stated Complaint: chest pain/DEANNA Time Seen by Provider: 04/07/24 19:19 - History of Present Illness Initial Comments: 44-year-old male presenting with chief complaint of chest pain. Pain started last night. Does radiate down his left arm. Admits to shortness of breath. (Rigo Angelo) Patient is a 44-year-old male with past medical history remarkable for CAD with multiple cardiac stents, heart failure, diabetes, hypertension, recent cardiac stent completed in February 2024. Patient also has an AICD. Presents emergency department with chest pain since having that stent placed. States has been worse over the last week to few days. Describes as left-sided pressure pain that radiates to the left neck and jaw. States he saw his wellness assistant a few days ago and some medications were adjusted but he still having pain. Attempted to call his wellness assistant today however did not receive a call back and secretary board of commissioners informed him to come to the emergency department for further evaluation. Symptoms seem to be more or less daily since he left the hospital after a stent 2 to 3 weeks ago. Has no new symptoms. Denies diaphoresis or nausea or vomiting. States he does have some arm involvement and jaw involvement. States it is currently somewhat severe. Is chronically on pain medications at home as well, appears he was prescribed Percocets upon discharge. Presents for further evaluation at this time. Initially seen as a quick note. I evaluated him when he was placed in the [facility] room when workup was completed. (Amado Mccoy) - Related Data Home Medications Medication Instructions Recorded Confirmed Furosemide [Lasix] 80 mg PO DAILY 07/25/20 03/22/24 Atorvastatin [Lipitor] 80 mg PO HS 10/13/21 03/22/24 Empagliflozin [Jardiance] 25 mg PO DAILY 10/13/21 03/22/24 Insulin NPH Hum/Reg Insulin Hm 60 unit SQ BID 12/07/21 03/22/24 [humuLIN 70/30 Kwikpen] Digoxin [Digitek] 250 mcg PO DAILY 03/11/24 03/22/24 Fenofibrate Nanocrystallized 145 mg PO DAILY 03/11/24 03/22/24 [Fenofibrate] Isosorbide Mononitrate ER [Imdur] 60 mg PO DAILY 03/11/24 03/22/24 Ranolazine [Ranexa] 1,000 mg PO BID 03/11/24 03/22/24 Rivaroxaban [Xarelto] 2.5 mg PO BID 03/11/24 03/22/24 Semaglutide [Ozempic] 1 mg SQ TH 03/11/24 03/22/24 Previous Rx's Medication Instructions Recorded Aspirin 81 mg PO DAILY #30 07/15/21 Nitroglycerin Sl Tabs [Nitrostat] 0.4 mg SUBLINGUAL Q5M PRN #30 tab 07/15/21 Lidocaine 4% Patch 1 patch TOPICAL DAILY 30 Days #30 03/13/24 patch Metoprolol Succinate (ER) [Toprol 150 mg PO DAILY 30 Days #90 tab 03/13/24 XL] Naproxen [Naprosyn] 250 mg PO TID PRN #12 tab 03/13/24 Sacubitril/Valsartan [Entresto 24 1 tab PO BID #0 03/26/24 mg-26 mg Tablet] Ticagrelor [Brilinta] 90 mg PO BID #60 tab 03/26/24 oxyCODONE HCL/ACETAMINOPHEN 1 tab PO Q6HR PRN 3 Days #12 tab 03/26/24 [Percocet 5-325 mg] Allergies Allergy/AdvReac Type Severity Reaction Status Date / Time Penicillins Allergy Unknown Verified 04/07/24 18:35 Childhood Review of Systems ROS Other: All systems not noted in ROS Statement are negative. <Rigo Angelo - Last Filed: 04/07/24 19:19> ROS Other: All systems not noted in ROS Statement are negative. <Amado Mccoy - Last Filed: 04/08/24 00:01> ROS Statement: Those systems with pertinent positive or pertinent negative responses have been documented in the HPI. Review of Systems: CONST: Denies fever EYES: Denies blurry vision ENT: Denies nasal congestion C/V: Endorses chest pain RESP: Denies shortness of breath GI: Denies abdominal pain : Denies dysuria SKIN: Denies rash. MSK: Denies joint pain. NEURO: Denies headache (Amado Mccoy) EKG Findings - EKG Comments: EKG Findings:: 12-lead Electrocardiogram Interpretation Note. EKG was reviewed and interpreted by myself. 12-lead ECG performed at 1815 is interpreted by me as revealing normal sinus rhythm at a rate of 87 beats per minute. [place] is normal. ND interval is 198 ms, QRS durations 143 ms, QTc is 398 ms.. There were no ST or T wave abnormalities to suggest myocardial ischemia or injury. R wave progression across the precordium was delayed. By my interpretation this EKG is non-diagnostic for acute ischemia. 12-lead Electrocardiogram Interpretation Note. EKG was reviewed and interpreted by myself. 12-lead ECG performed at 2154 is interpreted by me as revealing normal sinus rhythm at a rate of 79 beats per minute. [place] is normal. ND interval is 201 ms, QRS durations 145 ms, QTc is 391 ms.. There were no ST or T wave abnormalities to suggest myocardial ischemia or injury. R wave progression across the precordium was delayed. By my interpretation this EKG is non-diagnostic for acute ischemia. No obvious dynamic change compared with earlier EKG. - EKG Results: EKG: interpreted by ERMD <Amado Mccoy - Last Filed: 04/08/24 00:01> Past Medical History Past Medical History: Coronary Artery Disease (CAD), Chest Pain / Angina, Heart Failure, Diabetes Mellitus, Hyperlipidemia, Hypertension, Myocardial Infarction ([place]), Sleep Apnea/CPAP/BIPAP, Syncope Additional Past Medical History / Comment(s): CARDIAC HISTORY PER DR. HORAN. AICD. IDDM type II. Neuropathy bilateral feet. 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 Migraines. Chronic back pain. Last Myocardial Infarction Date:: 2015 History of Any Multi-Drug Resistant Organisms: None Reported Past Surgical History: AICD, Heart Catheterization, Heart Catheterization With Stent, Orthopedic Surgery Additional Past Surgical History / Comment(s): 10/27/12 AICD, DFTs, PCI with 2 stents, R BKA. Past Anesthesia/Blood Transfusion Reactions: No Reported Reaction Date of Last Stent Placement:: 02/03/16 Type of Cardiac Device: AICD Device Placement Date:: 2012 Past Psychological History: Anxiety, Depression Smoking Status: Never smoker Past Alcohol Use History: None Reported Past Drug Use History: None Reported - Past Family History Mother Family Medical History: No Reported History Additional Family Medical History / Comment(s): Mother is healthy Brother(s) Family Medical History: Myocardial Infarction ([place]) Additional Family Medical History / Comment(s): Brother of a [place] at the age of 35yrs. Father Family Medical History: Liver Disease Additional Family Medical History / Comment(s): Father when pt was 19 yrs old from liver disease. He was an alcoholic. <Rigo Angelo - Last Filed: 04/07/24 19:19> General Exam Limitations: no limitations <Rigo Angelo - Last Filed: 04/07/24 19:19> <Amado Mccoy - Last Filed: 04/08/24 00:01> - General Exam Comments Initial Comments: Visual Physical Exam Vital signs reviewed General: Well-appearing, nontoxic, no acute distress. Head: Normocephalic, atraumatic Eyes: PERRLA, EOMI ENT: Airway patent Chest: Nonlabored breathing Skin: No visual rash, normal skin tone Neuro: Alert and oriented 3 Musculoskeletal: No gross abnormalities (Rigo Angelo) General: Appears in no acute distress. HEAD: Normal with no signs of head trauma. EYES: EOMI ENT: Hearing grossly intact, normal oropharynx. RESPIRATORY: Clear breath sounds bilaterally. No wheezes, rales, or rhonchi. C/V: Regular rate and rhythm. S1 and S2 auscultated, no edema, peripheral pulses 2+ and intact throughout ABD: Abd is soft, nontender, nondistended EXT: No obvious acute deformity. Right BKA. SKIN: No rashes or lesions observed on exposed skin. NEURO: Alert and oriented x 4. (Amado Mccoy) Course Vital Signs 04/07/24 04/07/24 04/07/24 18:33 22:49 23:26 Temperature 98.5 F Pulse Rate 87 78 77 Respiratory 18 15 16 Rate Blood Pressure 129/82 141/97 142/90 O2 Sat by Pulse 98 95 96 Oximetry Chest Pain MDM <Rigo Angelo - Last Filed: 04/07/24 19:19> <Amado Mccoy - Last Filed: 04/08/24 00:01> - MDM I performed the quick note portion of this visit, electronically signed iRgo Mtz PA-C) Was pt. sent in by a medical professional or institution (JAYA Cruz, CORPORATE LEGAL SECRETARY, urgent care, hospital, or usp...) When possible be specific @ -No Did you speak to anyone other than the patient for history (EMS, parent, family, police, friend...)? What history was obtained from this source @ -No Did you review nursing and triage notes (agree or disagree)? Why? @ -I reviewed and agree with nursing and triage notes Were old charts reviewed (outside hosp., previous admission, EMS record, old EKG, old radiological studies, urgent care reports/EKG's, usp records)? Report findings @ -Reviewed including visit from February 2024 when patient received stenting but looks like the LAD. Reviewed EKG from that time and when compared with today's EKG, no obvious significant dynamic changes. Differential Diagnosis (chest pain, altered mental status, abdominal pain women, abdominal pain men, vaginal bleeding, weakness, fever, dyspnea, syncope, headache, dizziness, GI bleed, back pain, seizure, CVA, palpatations, mental health, musculoskeletal)? @ -Differential Chest Pain: Stable Angina, Unstable Angina, STEMI, NSTEMI Aortic Dissection, Pneumothorax, Musculoskeletal, Esophageal Spasm GERD, Cholecystitis, Pancreatitis, Zoster, this is not meant to be an all-inclusive list. EKG interpreted by me (3pts min.). @ -As above X-rays interpreted by me (1pt min.). @ -X-ray reveals no obvious acute cardiopulmonary process. CT interpreted by me (1pt min.). @ -None done U/S interpreted by me (1pt. min.). @ -None done What testing was considered but not performed or refused? (CT, X-rays, U/S, labs)? Why? @ -None What meds were considered but not given or refused? Why? @ -None Did you discuss the management of the patient with other professionals (professionals i.e. JAYA Cruz, CORPORATE LEGAL SECRETARY, lab, RT, psych nurse, perinatal social worker, intellectual property lawyer, teacher, ship's officer, case packer)? Give summary @ -Discussed with on-call cardiology, Dr. Jensen who was in agreement with plan with heparinization, aspirin, pain control. Was in agreement making the patient n.p.o. after midnight. Recommended we trend the troponins which was ordered. Spoke with the admitting provider, Dr. Britt who accepted the admission. Was smoking cessation discussed for >3mins.? @ -No Was critical care preformed (if so, how long)? @ -Yes, 36 minutes. Were there social determinants of health that impacted care today? How? (Homelessness, low income, unemployed, alcoholism, drug addiction, transportation, low edu. Level, literacy, decrease access to med. care, senior care, rehab)? @ -No Was there de-escalation of care discussed even if they declined (Discuss DNR or withdrawal of care, Hospice)? DNR status @ -No What co-morbidities impacted this encounter? (DM, HTN, Smoking, COPD, CAD, Cancer, CVA, ARF, Chemo, Hep., AIDS, mental health diagnosis, sleep apnea, morbid obesity)? @ -CAD, CHF with AICD Was patient admitted / discharged? Hospital course, mention meds given and route, prescriptions, significant lab abnormalities, going to OR and other pertinent info. @ -Based on the patient's presentation and physical exam, presents with acute on chronic chest pain. Recently did have a stent placed but has been having chest pain since that admission. Workup was started in triage as all rooms were fall. Was notified that patient's troponin is minimally elevated to 0.049. Remainder the labs unremarkable. Chest x-ray unremarkable. EKG showed no obvious acute changes with intraventricular conduction delay which was seen on prior EKG from February 2024. Repeat EKG which showed no obvious dynamic changes. Troponins will be trended. Recommended with his history that we start the patient on heparin which she was in agreement with. He was given 324 mg of aspirin. Patient was placed in a room. Nitroglycerin tablets attempted as he received 2 with no effect on patient's pain. Therefore patient given morphine which did improve his pain. He was made n.p.o. and started on IV fluids. I spoke with the admitting provider, Dr. Britt who accepted the admission. I spoke with on-call cardiology Dr. Jensen who was in agreement with the above plan. Undiagnosed new problem with uncertain prognosis? @ -No Drug Therapy requiring intensive monitoring for toxicity (Heparin, Nitro, Insulin, Cardizem)? @ -Heparin Were any procedures done? @ -No Diagnosis/symptom? @ -NSTEMI Acute, or Chronic, or Acute on Chronic? @ -Acute Uncomplicated (without systemic symptoms) or Complicated (systemic symptoms)? @ -Complicated Side effects of treatment? @ -No Exacerbation, Progression, or Severe Exacerbation? @ -No Poses a threat to life or bodily function? How? (Chest pain, [place], [place], pneumonia, PE, COPD, DKA, ARF, appy, cholecystitis, CVA, Diverticulitis, Homicidal, Suicidal, threat to staff... and all critical care pts) @ -Yes (Amado Mccoy) Critical Care Time Critical Care Time: Yes Total Critical Care Time: 36 <Amado Mccoy - Last Filed: 04/08/24 00:01> Disposition <Rigo Angelo - Last Filed: 04/07/24 19:19> Time of Disposition: 22:10 <Amado Mccoy - Last Filed: 04/08/24 00:01> Clinical Impression: NSTEMI (non-ST elevated myocardial infarction) Disposition: ADMITTED IP TO THIS HOSP Condition: Serious
--- NOTE | 2024-04-07 20:02 | XR ---
EXAMINATION TYPE: XR chest 2V DATE OF EXAM: 04/07/2024 7:51 PM COMPARISON: Previous chest radiograph 03/21/2024. CLINICAL INDICATION: Male, 44 years old with history of Chest Pain; [facility] TECHNIQUE: XR chest 2V Frontal and lateral views of the chest. FINDINGS: Cardiac silhouette stable. Left chest wall cardiac ICD device. No acute focal consolidation. No pleural effusion. No pneumothorax. No acute osseous abnormality. IMPRESSION: No acute cardiopulmonary disease/process. [facility], , 04/07/2024 7:59 PM
[2024-04-07 21:11] LABS: Basophils # (A) 0.1 k/uL (0-0.2); Basophils % (A) 1 %; Eosinophils # (A) 0.3 k/uL (0-0.7); Eosinophils % (A) 3 %; HCT 45.5 % (39.0-53.0); HGB 14.9 gm/dL (13.0-17.5); Hypochromasia Slight; Lymphocytes # (A) 1.9 k/uL (1.0-4.8); Lymphocytes % (A) 20 %; MCH 24.8 pg (25.0-35.0); MCHC 32.7 g/dL (31.0-37.0); Mean Platelet Volume 7.3; Microcytosis Slight; Monocytes # (A) 0.6 k/uL (0-1.0); Monocytes % (A) 6 %; Neutrophils # (A) 6.7 k/uL (1.3-7.7); Neutrophils % (A) 69 %; Platelet Count 327 k/uL (150-450); RBC 5.98 m/uL (4.30-5.90); RDW 15.7 % (11.5-15.5); WBC 9.8 k/uL (3.8-10.6)
[2024-04-07 21:21] LABS: ALT 18 U/L (4-49); AST 20 U/L (17-59); African American GFR (CKD) >90 (>60 ml/min/1.73 sqM); Albumin 4.4 g/dL (3.5-5.0); Alkaline Phosphatase 123 U/L (38-126); Anion Gap 12 mmol/L; Blood Urea Nitrogen 22 mg/dL (9-20); Calcium 9.5 mg/dL (8.4-10.2); Carbon Dioxide 22 mmol/L (22-30); Chloride 103 mmol/L (98-107); Glucose 239 mg/dL (74-99); Magnesium 2.2 mg/dL (1.6-2.3); Non-African American GFR(CKD) 87 (>60 ml/min/1.73 sqM); Potassium 4.7 mmol/L (3.5-5.1); Sodium 137 mmol/L (137-145); Total Bilirubin 0.6 mg/dL (0.2-1.3); Total Protein 7.5 g/dL (6.3-8.2)
[2024-04-07] MEDS ORDERED: NALOXONE 0.4 MG/ML 1 ML VIAL IV PRN (22:12)
[2024-04-07] MEDS ORDERED: ONDANSETRON 4 MG/2 ML VIAL IVP PRN (22:12)
[2024-04-07] MEDS: NITROGLYCERIN SL TABS 0.4 MG TAB SUBLINGUAL STA (22:28)
[2024-04-07] MEDS: ASPIRIN 81 MG PO STA (22:29)
[2024-04-07] MEDS: HEPARIN SODIUM 1,000 UN/ML (10ML VL) IV ONE (22:44)
[2024-04-07] MEDS: HEPARIN SOD,PORK IN 0.45% NACL 25,000 UNIT in 0.45% NACL 1 250ML.BAG IV SCH (22:45)
[2024-04-07] MEDS: SODIUM CHLORIDE 0.9% 1,000 ML IV SCH (22:47)
[2024-04-07 23:03] LABS: INR 0.9 (<1.2); Partial Thromboplastin Time 23.4 sec (22.0-30.0); Prothrombin Time 9.7 sec (10.0-12.5)
[2024-04-07] MEDS: MORPHINE SULFATE 4 MG/ML SYRINGE IVP STA (23:23)
--- NOTE | 2024-04-08 00:22 | P.HPIM ---
History of Present Illness H&P Date: 04/07/24 Chief Complaint: Chest pain Patient is a 44-year-old male with past medical history of coronary artery disease with previous history of myocardial infarction and stent placement, congestive heart failure with most recent echocardiogram showing EF of 30 to 35% (03/12/2024) status post AICD placement, type 2 diabetes mellitus, hypertension, hyperlipidemia, lower extremity peripheral neuropathy, right below the knee amputation and obstructive sleep apnea on CPAP presented to the emergency department with a chief complaint of chest pain. Patient reported that the chest pain started this afternoon at 4 PM when patient was walking from the restroom back to living room. Patient reports a constant, pressure-like chest pain in the substernal region which radiated towards his neck and left arm. Patient currently endorses a 5 out of 10 in terms of severity. The last time patient had a myocardial infarction was 2016. Patient has an extensive history of heart disease in the past. Patient also endorsed nausea, shortness of breath, belly pain, diarrhea, tingling and numbness sensation in his left arm. Patient denies fever, chills, vomiting, diarrhea or constipation, urinary or bowel incontinence. Of note, patient was recently admitted for similar complaints and underwent cardiac catheterization with PCI with stenting of mid and distal LAD on 03/25/[address] Hernandez. ED documentation reviewed. In the ED patient was treated with aspirin 324 mg p.o. x 1, nitroglycerin 0.4 mg sublingual x 1 Vitals on admission temperature 98.5, pulse rate 87, respiratory 18, blood pressure 129/82, O2 sat 98% on room air EKG independently interpreted as sinus rhythm with ventricular rate of 79 bpm, QTc interval of 391 ms, no signs of ST elevation, borderline right axis deviat ion. CXR shows no acute cardiopulmonary disease/process. Labs on admission show WBC 9.8, hemoglobin 14.9, hematocrit 45.5, platelets 327, sodium 137, potassium 4.7, chloride 103, carbon dioxide 22, BUN 22, creatinine 1.05, glucose 239, troponin 0.049 Review of systems: Pertinent positives and negatives as discussed in HPI, a complete review of systems was performed and all other systems are negative. PMH: coronary artery disease with previous [place] and stent placement, ischemic cardiomyopathy with recent echocardiogram showing EF of 30 to 35% (03/12/2024) status post AICD placement, hypertension, hyperlipidemia, SVT, diabetes mellitus type 2, bilateral lower extremity peripheral neuropathy, right BKA, obstructive sleep apnea CPAP dependent nightly, and migraine headaches PSH: AICD on 10/27/2012, ight below the knee amputation FMH: Brother of a [place] at the age of 35 years. Father when patient was 19 years old from liver disease. He was an alcoholic. Allergies: Penicillins Social history: Tobacco: Never smoker Alcohol: None reported Recreational drugs: None reported Travel: No recent travel history Sick contacts: Recent sick contacts Physical examination: Vital signs reviewed General: nontoxic, no distress, appears at stated age, well-appearing, obese Derm: warm, dry, intact Head: atraumatic, normocephalic, symmetric Eyes: EOMI, anicteric sclera Mouth: no lip lesion, mucus membranes moist Cardiovascular: S1 S2 reg, no murmur Lungs: CTA bilateral, no rhonchi, no rales, no accessory muscle use Abdominal: soft, distended, no rebound tenderness, mild periumbilical tenderness, no signs of peritonitis Extremities: No cyanosis, clubbing, lower extremity swelling, right below the kn ee amputation Neuro: Alert, Oriented, Gross neurological examination did not reveal any focal deficits. Cranial nerves II to XII grossly intact. Light touch sensation slightly diminished in the left upper and lower extremity. Intact muscle strength in upper and lower extremity bilaterally 5 out of 5. Psych: well appearing, appropriate affect Assessment/Plan: 44-year-old male with past medical history of coronary artery disease with previous [place] and stent placement, ischemic cardiomyopathy with recent echocardiogram showing EF of 30 to 35% (03/12/2024) status post AICD placement, hypertension, hyperlipidemia, SVT, diabetes mellitus type 2, bilateral lower extremity peripheral neuropathy, right BKA, obstructive sleep apnea CPAP dependent nightly, and migraine headaches presented to the emergency department with a chief complaint of chest pain. Patient will be admitted to inpatient medicine service. Active: #. NSTEMI Troponin 0.049 Trend troponin EKG showed sinus rhythm with ventricular rate of 79 bpm, QTc interval of 3 of 91 ms, no signs of ST elevation, borderline right axis deviation. Continue with aspirin 81 mg daily Continue with atorvastatin 80 mg at bedtime Obtain lipid panel Consult cardiology Cardiac monitoring Initiate Nitrobid ointment C/w Heparin infusion #. Type 2 diabetes mellitus with hyperglycemia Hold home oral antiglycemic medications Initiate sliding scale insulin and glucose monitoring Chronic: #. Hyperlipidemia Continue with atorvastatin 80 mg daily Continue with fenofibrate 145 mg daily #. Hypertension Continue with metoprolol succinate 150 mg daily F: No restrictions E: Replete as needed N: NPO diet after midnight A: Ambulatory DVT prophylaxis: IV heparin The patient is admitted with an anticipated more than 2 midnight stay for evaluation of NSTEMI CODE STATUS: Full code Discussed with: Patient Anticipated discharge place: Home Past Medical History Past Medical History: Coronary Artery Disease (CAD), Chest Pain / Angina, Heart Failure, Diabetes Mellitus, Hyperlipidemia, Hypertension, Myocardial Infarction ([place]), Sleep Apnea/CPAP/BIPAP, Syncope Additional Past Medical History / Comment(s): CARDIAC HISTORY PER DR. HORAN. AICD. IDDM type II. Neuropathy bilateral feet. 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 Migraines. Chronic back pain. Last Myocardial Infarction Date:: 2015 History of Any Multi-Drug Resistant Organisms: None Reported Past Surgical History: AICD, Heart Catheterization, Heart Catheterization With Stent, Orthopedic Surgery Additional Past Surgical History / Comment(s): 10/27/12 AICD, DFTs, PCI with 2 stents, R BKA. Past Anesthesia/Blood Transfusion Reactions: No Reported Reaction Date of Last Stent Placement:: 02/03/16 Type of Cardiac Device: AICD Device Placement Date:: 2012 Past Psychological History: Anxiety, Depression Smoking Status: Never smoker Past Alcohol Use History: None Reported Past Drug Use History: None Reported - Past Family History Mother Family Medical History: No Reported History Additional Family Medical History / Comment(s): Mother is healthy Brother(s) Family Medical History: Myocardial Infarction ([place]) Additional Family Medical History / Comment(s): Brother of a [place] at the age of 35yrs. Father Family Medical History: Liver Disease Additional Family Medical History / Comment(s): Father when pt was 19 yrs old from liver disease. He was an alcoholic. Medications and Allergies Home Medications Medication Instructions Recorded Confirmed Type Furosemide [Lasix] 80 mg PO DAILY 07/25/20 03/22/24 History Aspirin 81 mg PO DAILY #30 07/15/21 03/22/24 Rx Nitroglycerin Sl Tabs [Nitrostat] 0.4 mg SUBLINGUAL Q5M PRN #30 tab 07/15/21 03/22/24 Rx Atorvastatin [Lipitor] 80 mg PO HS 10/13/21 03/22/24 History Empagliflozin [Jardiance] 25 mg PO DAILY 10/13/21 03/22/24 History Insulin NPH Hum/Reg Insulin Hm 60 unit SQ BID 12/07/21 03/22/24 History [humuLIN 70/30 Kwikpen] Digoxin [Digitek] 250 mcg PO DAILY 03/11/24 03/22/24 History Fenofibrate Nanocrystallized 145 mg PO DAILY 03/11/24 03/22/24 History [Fenofibrate] Isosorbide Mononitrate ER [Imdur] 60 mg PO DAILY 03/11/24 03/22/24 History Ranolazine [Ranexa] 1,000 mg PO BID 03/11/24 03/22/24 History Rivaroxaban [Xarelto] 2.5 mg PO BID 03/11/24 03/22/24 History Semaglutide [Ozempic] 1 mg SQ TH 03/11/24 03/22/24 History Lidocaine 4% Patch 1 patch TOPICAL DAILY 30 Days #30 03/13/24 03/22/24 Rx patch Metoprolol Succinate (ER) [Toprol 150 mg PO DAILY 30 Days #90 tab 03/13/24 03/22/24 Rx XL] Naproxen [Naprosyn] 250 mg PO TID PRN #12 tab 03/13/24 03/22/24 Rx Sacubitril/Valsartan [Entresto 24 1 tab PO BID #0 03/26/24 03/22/24 Rx mg-26 mg Tablet] Ticagrelor [Brilinta] 90 mg PO BID #60 tab 03/26/24 Rx oxyCODONE HCL/ACETAMINOPHEN 1 tab PO Q6HR PRN 3 Days #12 tab 03/26/24 Rx [Percocet 5-325 mg] Allergies Allergy/AdvReac Type Severity Reaction Status Date / Time Penicillins Allergy Unknown Verified 04/07/24 18:35 Childhood Physical Exam Vitals: Vital Signs Temp Pulse Resp BP Pulse Ox 04/07/24 18:33 98.5 F 87 18 129/82 98 Intake and Output 04/07/24 04/07/24 04/07/24 06:59 14:59 22:59 Other: Weight 121.563 kg Results CBC & Chem 7: 04/07/24 19:37 04/07/24 19:37 Labs: Abnormal Lab Results - Last 24 Hours (Table) 04/07/24 04/07/24 04/07/24 Range/Units 19:37 19:37 19:37 RBC 5.98 H (4.30-5.90) m/uL MCV 76.0 L (80.0-100.0) fL MCH 24.8 L (25.0-35.0) pg RDW 15.7 H (11.5-15.5) % BUN 22 H (9-20) mg/dL Glucose 239 H (74-99) mg/dL Troponin I 0.049 H* (0.000-0.034) ng/mL
[2024-04-08] MEDS ORDERED: DEXTROSE 50% SYRINGE 50 ML IVP PRN ×2 (02:02)
[2024-04-08 02:11] LABS: Glucose,Whole Blood 194 mg/dL (70-110)
[2024-04-08] MEDS: NITROGLYCERIN OINT 1 INCH/GM PACKET TOPICAL SCH (02:52)
[2024-04-08 05:45] LABS: Basophils # (A) 0.1 k/uL (0-0.2); Basophils % (A) 1 %; Eosinophils # (A) 0.4 k/uL (0-0.7); Eosinophils % (A) 5 %; HCT 43.3 % (39.0-53.0); HGB 13.8 gm/dL (13.0-17.5); Hypochromasia Slight; Lymphocytes # (A) 2.4 k/uL (1.0-4.8); Lymphocytes % (A) 29 %; MCH 24.5 pg (25.0-35.0); MCHC 31.8 g/dL (31.0-37.0); MCV 76.9 fL (80.0-100.0); Mean Platelet Volume 7.2; Microcytosis Slight; Monocytes # (A) 0.6 k/uL (0-1.0); Monocytes % (A) 7 %; Neutrophils # (A) 4.7 k/uL (1.3-7.7); Neutrophils % (A) 57 %; Platelet Count 290 k/uL (150-450); RBC 5.63 m/uL (4.30-5.90); RDW 15.8 % (11.5-15.5); WBC 8.3 k/uL (3.8-10.6)
[2024-04-08 05:59] LABS: ALT 15 U/L (4-49); AST 17 U/L (17-59); African American GFR (CKD) >90 (>60 ml/min/1.73 sqM); Albumin 3.9 g/dL (3.5-5.0); Alkaline Phosphatase 103 U/L (38-126); Anion Gap 10 mmol/L; Blood Urea Nitrogen 24 mg/dL (9-20); Calcium 9.1 mg/dL (8.4-10.2); Carbon Dioxide 21 mmol/L (22-30); Chloride 108 mmol/L (98-107); Glucose 163 mg/dL (74-99); Non-African American GFR(CKD) 80 (>60 ml/min/1.73 sqM); Potassium 4.1 mmol/L (3.5-5.1); Sodium 139 mmol/L (137-145); Total Bilirubin 0.5 mg/dL (0.2-1.3); Total Protein 6.8 g/dL (6.3-8.2)
[2024-04-08 06:06] LABS: INR 0.9 (<1.2); Partial Thromboplastin Time 24.2 sec (22.0-30.0); Prothrombin Time 10.3 sec (10.0-12.5)
[2024-04-08] MEDS: MORPHINE SULFATE 4 MG/ML SYRINGE IVP PRN (06:38)
[2024-04-08] MEDS: HEPARIN SODIUM 1,000 UN/ML (10ML VL) IV PRN (06:44)
[2024-04-08] MEDS ORDERED: HEPARIN SODIUM,PORCINE 10,000 UNIT in SODIUM CHLORIDE 0.9% 1,000 ML IRRIGATION PRN (07:00)
[2024-04-08] MEDS ORDERED: HEPARIN SODIUM,PORCINE (1 ML) 2,500 UNIT in SODIUM CHLORIDE 0.9% 250 ML IRRIGATION PRN (07:00)
[2024-04-08] MEDS: INSULIN ASPART (NovoLOG) 100 UNIT/ML VIAL SQ SCH (07:52)
[2024-04-08 07:56] LABS: Glucose,Whole Blood 139 mg/dL (70-110)
[2024-04-08] MEDS: ASPIRIN 81 MG PO SCH (09:00)
[2024-04-08] MEDS: METOPROLOL SUCCINATE (ER) 50 MG TAB.ER.24H PO SCH (09:01)
[2024-04-08] MEDS: FENOFIBRATE 160 MG TAB PO SCH (09:01)
[2024-04-08] MEDS: TICAGRELOR 90 MG TAB PO SCH (09:01)
[2024-04-08] MEDS ORDERED: ALPRAZolam 0.5 MG TAB PO PRN (09:14)
[2024-04-08] MEDS ORDERED: NITROGLYCERIN SL TABS 0.4 MG TAB SUBLINGUAL PRN (09:14)
[2024-04-08] MEDS ORDERED: ALPRAZolam 0.25 MG TAB PO PRN (09:14)
[2024-04-08 09:22] LABS: Chol/HDL Ratio 7.81 Ratio
[2024-04-08] MEDS: ASPIRIN 81 MG PO STA (09:45)
[2024-04-08] MEDS: ATORVASTATIN 80 MG TAB PO STA (09:45)
[2024-04-08] MEDS: SACUBITRIL/VALSARTAN 24 MG-26 MG TABLET PO SCH (11:15)
--- NOTE | 2024-04-08 13:00 | P.CRDCN ---
History of Present Illness Consult date: 04/08/24 Reason for Consult (text): NSTEMI History of present illness: This is 44-year-old male patient of Dr. Hernandez with history of CAD with known chronic total occlusion of the RCA and left circumflex with previous stenting of the LAD, severe ischemic cardiomyopathy with EF of 30 to 35% status post AICD, hypertension, dyslipidemia, diabetes insulin requiring, overweight, history of right below the knee amputation, obstructive sleep apnea on CPAP, noncompliance. We have been asked to evaluate the patient for NSTEMI. Patient has had 2 recent hospitalizations for chest pain in February. He underwent cardiac catheterization with Dr. Hernandez on 03/25 which found COLLAR STITCHER of the RCA and COLLAR STITCHER of the left circumflex, severe disease involving the mid to distal LAD and underwent PCI of the mid and distal LAD. This was performed following an abnormal Mulu can Cardiolite stress test. Patient called the office yesterday due to chest pain that had been ongoing and plan was for patient to be scheduled for cardiac catheterization. Patient did show up to the emergency center due to chest pain. His chest pain is now a 6/10. He states morphine helped and he is also on Nitropaste. He has been taking nitro sublingually at home with improvement of chest pain. He states chest pain is worse with exertion. Patient has been started on heparin drip. Blood pressure 151/92, heart rate 68, pulse ox 96% on room air. Patient is seen today in the emergency center waiting for a bed on the cardiac stepdown unit. Discussed plan for cardiac catheterization later today and he is agreeable to move forward with this. Note that patient has not been taking Entresto due to insurance coverage issue. Patient has been started on heparin drip. -EKG: Sinus rhythm with IVCD -Chest x-ray: No acute process -Laboratory studies: Hemoglobin 13.8, BUN 24 creatinine 1.12, sodium 139, potassium 4.1. Troponins 0.049, 0.047, 0.040. -Home cardiac medications: Aspirin 81 mg daily, atorvastatin 80 mg at bedtime, digoxin 250 mg daily, Jardiance 25 mg daily, fenofibrate 145 mg daily, Lasix 80 mg daily, Imdur 60 mg daily, metoprolol succinate 200 mg daily, Nitrostat as n eeded, Ranexa 1000 mg twice daily, Xarelto 2.5 mg twice daily, Entresto 24-26 mg twice daily but patient has not started taking it, Brilinta 90 mg twice daily, patient is also on Ozempic. -Echocardiogram performed 03/12/2024 revealed EF 30 to 35%, severely dilated LV cavity, moderately concentric LVH, RVSP 27 mmHg, moderate biatrial dilatation, mild MR. Review Of Systems: At the time of my exam: CONSTITUTIONAL: Denies fever or chills. HEENT: Denies blurred vision, vision changes, or eye pain. Denies hemoptysis CARDIOVASCULAR: Reports chest pain. Denies orthopnea. Denies PND. Denies palpitations RESPIRATORY: Denies shortness of breath. GASTROINTESTINAL: Denies abdominal pain. Denies nausea or vomiting. HEMATOLOGIC: Denies bleeding disorders. GENITOURINARY: Denies any blood in urine. SKIN: Denies puritis. Denies rash. Physical examination: Gen: This is a 44-year-old male in no acute distress VS: reviewed HEENT: Head is atraumatic, normocephalic. Pupils equal, round. Sclerae is anic teric. NECK: Supple. No JVD. LUNGS: Clear to auscultation. No wheezes or rhonchi. No intercostal retractions. HEART: Regular rate and rhythm. Systolic murmur. ABDOMEN: Soft No tenderness. EXTREMITIES: No pedal edema. No calf tenderness. NEUROLOGICAL: Patient is awake, alert and oriented x3. Assessment: Mild troponin elevation, possible NSTEMI Chest pain with exertion, unstable angina Known history of coronary artery disease with recent stent to the mid and distal LAD on 03/25 Severe ischemic cardiomyopathy with a EF of 30 to 35% status post AICD Hypertension Dyslipidemia Diabetes mellitus type 2 insulin requiring History of right below the knee amputation Obstructive sleep apnea on CPAP Concern for noncompliance Plan: Resume patient's home cardiac medications Increase metoprolol to his home dose of 200 mg daily Hold Imdur while patient is on Nitropaste Xarelto on hold as patient is on heparin drip Other home medications that have not been resumed: Digoxin, Jardiance, Lasix, Ra nexa and Entresto Continue patient on heparin drip Schedule patient for cardiac catheterization today with Dr. Hernandez Further recommendations to follow based upon clinical course Thank you kindly for this consultation. Nurse practitioner note has been reviewed, I agree with documented findings and plan of care. Patient was seen and examined. Past Medical History Past Medical History: Coronary Artery Disease (CAD), Chest Pain / Angina, Heart Failure, Diabetes Mellitus, Hyperlipidemia, Hypertension, Myocardial Infarction (NV), Sleep Apnea/CPAP/BIPAP, Syncope Additional Past Medical History / Comment(s): CARDIAC HISTORY PER DR. HORAN. AICD. IDDM type II. Neuropathy bilateral feet. 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 Migraines. Chronic back pain. Last Myocardial Infarction Date:: 2015 History of Any Multi-Drug Resistant Organisms: None Reported Past Surgical History: AICD, Heart Catheterization, Heart Catheterization With Stent, Orthopedic Surgery Additional Past Surgical History / Comment(s): 10/27/12 AICD, DFTs, PCI with 2 stents, R BKA. Past Anesthesia/Blood Transfusion Reactions: No Reported Reaction Date of Last Stent Placement:: 02/03/16 Type of Cardiac Device: AICD Device Placement Date:: 2012 Past Psychological History: Anxiety, Depression Smoking Status: Never smoker Past Alcohol Use History: None Reported Past Drug Use History: None Reported - Past Family History Mother Family Medical History: No Reported History Additional Family Medical History / Comment(s): Mother is healthy Brother(s) Family Medical History: Myocardial Infarction (NV) Additional Family Medical History / Comment(s): Brother of a NV at the age of 35yrs. Father Family Medical History: Liver Disease Additional Family Medical History / Comment(s): Father when pt was 19 yrs old from liver disease. He was an alcoholic. Medications and Allergies Home Medications Medication Instructions Recorded Confirmed Type Furosemide [Lasix] 80 mg PO DAILY 07/25/20 04/08/24 History Aspirin 81 mg PO DAILY #30 07/15/21 04/08/24 Rx Nitroglycerin Sl Tabs [Nitrostat] 0.4 mg SUBLINGUAL Q5M PRN #30 tab 07/15/21 04/08/24 Rx Atorvastatin [Lipitor] 80 mg PO HS 10/13/21 04/08/24 History Empagliflozin [Jardiance] 25 mg PO DAILY 10/13/21 04/08/24 History Insulin NPH Hum/Reg Insulin Hm 60 unit SQ BID 12/07/21 04/08/24 History [humuLIN 70/30 Kwikpen] Digoxin [Digitek] 250 mcg PO DAILY 03/11/24 04/08/24 History Fenofibrate Nanocrystallized 145 mg PO DAILY 03/11/24 04/08/24 History [Fenofibrate] Isosorbide Mononitrate ER [Imdur] 60 mg PO DAILY 03/11/24 04/08/24 History Ranolazine [Ranexa] 1,000 mg PO BID 03/11/24 04/08/24 History Rivaroxaban [Xarelto] 2.5 mg PO BID 03/11/24 04/08/24 History Semaglutide [Ozempic] 1 mg SQ TH 03/11/24 04/08/24 History Lidocaine 4% Patch 1 patch TOPICAL DAILY 30 Days #30 03/13/24 04/08/24 Rx patch Naproxen [Naprosyn] 250 mg PO TID PRN #12 tab 03/13/24 04/08/24 Rx Ticagrelor [Brilinta] 90 mg PO BID #60 tab 03/26/24 04/08/24 Rx oxyCODONE HCL/ACETAMINOPHEN 1 tab PO Q6HR PRN 3 Days #12 tab 03/26/24 04/08/24 Rx [Percocet 5-325 mg] Metoprolol Succinate (ER) [Toprol 200 mg PO DAILY 04/08/24 04/08/24 History Xl] Sacubitril/Valsartan [Entresto 24 1 tab PO DIRECTED 04/08/24 04/08/24 History mg-26 mg Tablet] Allergies Allergy/AdvReac Type Severity Reaction Status Date / Time Penicillins Allergy Unknown Verified 04/08/24 07:33 Childhood Physical Exam Vitals: Vital Signs Temp Pulse Resp BP Pulse Ox 04/08/24 07:44 68 14 151/92 96 04/08/24 06:34 97.8 F 72 16 134/94 95 04/08/24 02:30 68 15 135/77 96 04/08/24 00:30 69 14 134/82 97 04/07/24 23:26 77 16 142/90 96 04/07/24 22:49 78 15 141/97 95 04/07/24 18:33 98.5 F 87 18 129/82 98 Intake and Output 04/07/24 04/08/24 04/08/24 22:59 06:59 14:59 Intake Total 79.507 Balance 79.507 Intake: Intake, IV Titration 79.507 Amount Heparin Sod,Pork in 0.45% 79.507 NaCl 25,000 unit In 0.45 % NaCl 1 250ml.bag @ 8.21 UNITS/KG/HR 9.98 mls/hr IV .Q24H [facility] Rx#: [id number] Other: Weight 121.563 kg Results 04/08/24 04:10 04/08/24 04:24 Cardiac Enzymes 04/07/24 04/07/24 04/08/24 Range/Units 19:37 19:37 00:05 AST 20 (17-59) U/L Troponin I 0.049 H* 0.047 H* (0.000-0.034) ng/mL 04/08/24 04/08/24 Range/Units 04:10 04:24 AST 17 (17-59) U/L Troponin I 0.040 H* (0.000-0.034) ng/mL Coagulation 04/07/24 04/08/24 Range/Units 22:34 04:10 PT 9.7 L 10.3 (10.0-12.5) sec APTT 23.4 24.2 (22.0-30.0) sec CBC 04/07/24 04/08/24 Range/Units 19:37 04:10 WBC 9.8 8.3 (3.8-10.6) k/uL RBC 5.98 H 5.63 (4.30-5.90) m/uL Hgb 14.9 13.8 (13.0-17.5) gm/dL Hct 45.5 43.3 (39.0-53.0) % Plt Count 327 290 (150-450) k/uL Comprehensive Metabolic Panel 04/07/24 04/08/24 Range/Units 19:37 04:24 Sodium 137 139 (137-145) mmol/L Potassium 4.7 4.1 (3.5-5.1) mmol/L Chloride 103 108 H (98-107) mmol/L Carbon Dioxide 22 21 L (22-30) mmol/L BUN 22 H 24 H (9-20) mg/dL Creatinine 1.05 1.12 (0.66-1.25) mg/dL Glucose 239 H 163 H (74-99) mg/dL Calcium 9.5 9.1 (8.4-10.2) mg/dL AST 20 17 (17-59) U/L ALT 18 15 (4-49) U/L Alkaline Phosphatase 123 103 (38-126) U/L Total Protein 7.5 6.8 (6.3-8.2) g/dL Albumin 4.4 3.9 (3.5-5.0) g/dL Current Medications Generic Name Dose Route Start Last Admin Trade Name Freq PRN Reason Stop Dose Admin Aspirin 81 mg 04/08/24 09:00 Aspirin 81 Mg PO DAILY [facility] Atorvastatin Calcium 80 mg 04/08/24 21:00 Atorvastatin 80 Mg Tab PO HS KSENIA Dextrose/Water 25 ml 04/08/24 02:02 Dextrose 50% Syringe 50 Ml IVP PER PROTOCOL PRN Hypoglycemia Protocol Dextrose/Water 50 ml 04/08/24 02:02 Dextrose 50% Syringe 50 Ml IVP PER PROTOCOL PRN Hypoglycemia Protocol Fenofibrate 160 mg 04/08/24 09:00 Fenofibrate 160 Mg Tab PO DAILY [facility] Heparin Sodium (Porcine) 0 unit 04/07/24 21:43 04/08/24 06:44 Heparin Sodium 1,000 Un/Ml (10ml Vl) IV 4,000 unit PER PROTOCOL PRN Administration Low PTT Protocol Heparin Sodium/Sodium Chloride 250 mls @ 9.98 mls/hr 04/07/24 21:45 04/08/24 06:43 25,000 unit/ Sodium Chloride IV 11.21 units/kg/hr .Q24H KSENIA 13.627 mls/hr Titration Protocol 8.21 UNITS/KG/HR Sodium Chloride 1,000 mls @ 100 mls/hr 04/07/24 22:15 04/07/24 22:47 Saline 0.9% IV 100 mls/hr .Q10H [facility] Administration Insulin Aspart 0 unit 04/08/24 07:30 04/08/24 07:52 Insulin Aspart (Novolog) 100 Unit/Ml Vial SQ Not Given ACHS [facility] Protocol Metoprolol Succinate 150 mg 04/08/24 09:00 Metoprolol Succinate (Er) 50 Mg Tab.Er.24h PO DAILY [facility] Morphine Sulfate 4 mg 04/07/24 23:59 04/08/24 06:38 Morphine Sulfate 4 Mg/Ml Syringe IVP 4 mg Q4HR PRN Administration Pain Naloxone HCl 0.2 mg 04/07/24 22:12 Naloxone 0.4 Mg/Ml 1 Ml Vial IV Q2M PRN Opioid Reversal Nitroglycerin 0.5 inch 04/08/24 02:15 04/08/24 07:57 Nitroglycerin Oint 1 Inch/Gm Packet TOPICAL 0.5 inch Q8HR [facility] Administration Ondansetron HCl 4 mg 04/07/24 22:12 Ondansetron 4 Mg/2 Ml Vial IVP Q8HR PRN Nausea And Vomiting Ticagrelor 90 mg 04/08/24 09:00 Ticagrelor 90 Mg Tab PO BID [facility] Intake and Output 04/07/24 04/08/24 04/08/24 22:59 06:59 14:59 Intake Total 79.507 Balance 79.507 Intake: Intake, IV Titration 79.507 Amount Heparin Sod,Pork in 0.45% 79.507 NaCl 25,000 unit In 0.45 % NaCl 1 250ml.bag @ 8.21 UNITS/KG/HR 9.98 mls/hr IV .Q24H [facility] Rx#: [id number] Other: Weight 121.563 kg 04/08/24 04:10 04/08/24 04:24
[2024-04-08 13:34] LABS: Glucose,Whole Blood 186 mg/dL (70-110)
[2024-04-08] MEDS: MIDAZOLAM 2 MG/2 ML VIAL IVP ONE (13:45)
[2024-04-08] MEDS: IV FLUID CONTINUATION 800 ML IV ONE (13:45)
[2024-04-08] MEDS: LIDOCAINE 1% INJ 10MG/ML (20 ML MDV) SQ ONE (13:54)
[2024-04-08] MEDS: VERAPAMIL SYRINGE (5 MG/10 ML) INTRAARTER ONE (13:55)
[2024-04-08] MEDS: IOPAMIDOL-370 100ML BTL INJ ONE (14:07)
[2024-04-08] MEDS ORDERED: RX INFO: IV CONTRAST WAS GIVEN 1 EACH MISC MISCELLANE PRN (14:11)
--- NOTE | 2024-04-08 14:13 | P.PCN ---
Date of Procedure: 04/08/24 Operative Findings: CARDIAC CATHETERIZATION PERFORMING PHYSICIAN: Damion Hernandez MD, RPVI PROCEDURE PERFORMED: 1. Selective right and left coronary angiogram 2. Left heart catheterization 3. Ultrasound-guided access of the right radial artery INDICATION: Unstable angina COMPLICATION: None APPROACH: Right radial artery LEVEL OF SEDATION: Moderate with a sedation length of 13 minutes PROCEDURE DESCRIPTION: After obtaining an informed consent, the patient was brought to cardiac mushroom laborer. Local anesthesia was performed using lidocaine subcutaneously. The right radial artery was cannulated using Seldinger technique, the guidewire passed easily, following that we advanced a 5-Afghan sheath dilator assembly, the wire and dilator were removed and sheath was flushed. Following that, 2 mg of verapamil was given Selective right and left coronary angiogram using a 6-Afghan JR4 and JL 3.5 cat heters. Following that we did left heart catheterization using 6-Afghan pigtail catheter. The procedure was completed there was no complication. SELECTIVE CORONARY ANGIOGRAM: The right coronary artery: Large-caliber vessel and a dominant vessel and appears to be chronically occluded by the bifurcation into PDA and PLV branches Left main: Is angiographically normal The left circumflex: Chronically occluded The left anterior descending artery: The stents in the mid and distal LAD appeared to be patent. No high-grade stenosis was identified HEMODYNAMICS: The LVEDP was 16 mmHg with no significant gradient across aortic valve CONCLUSION: 1. Patent stent in the mid and distal LAD 2. FOREST PATHOLOGY TEACHER of the RCA and FOREST PATHOLOGY TEACHER of the LCx and both are known finding from before POSTPROCEDURE MANAGEMENT: Seen by his medical treatment
[2024-04-08] MEDS: SODIUM CHLORIDE 0.9% 1,000 ML IV SCH (15:42)
[2024-04-08 16:22] LABS: Glucose,Whole Blood 187 mg/dL (70-110)
--- NOTE | 2024-04-08 16:34 | P.PN ---
Subjective Progress Note Date: 04/08/2404/08. Patient seen and examined at bedside. No acute events overnight. No significant complaints today. Labs today: WBC 8.3, hemoglobin 13.8, platelets 298, PT 10.3, INR 0.9, APTT 24.2, sodium 139, potassium 4.1, chloride 108, CO2 21, BUN 24, creatinine 1.12, glucose 163. Troponin X3 0.049, 0.047, 0.040. Lipid panel: Triglycerides 580, cholesterol 211, LDL 116, HDL 27. Endorses substernal chest pain radiating to the neck, nausea, shortness of breath, numbness in the left arm. He denies fever, chills, vomiting, diarrhea. Pertinent positives and negatives discussed above, a complete review of systems was performed and all the other systems were negative. Physical examination: Vital signs reviewed General: Nontoxic, no distress, appears stated age, well-appearing, bold that obese Derm: Warm, dry, intact Head: Atraumatic, normocephalic, symmetric Eyes: EOMI, anicteric sclera Mouth: No lip lesion, mucus membranes moist Cardiovascular: S1-S2 regular, no murmur Lungs: CTA bilateral, no rhonchi, no rales, no accessory muscle use Abdominal: Soft, mild periumbilical tenderness Extremities: No cyanosis, clubbing, or pedal edema, right BKA Neuro: Alert, oriented x 3, gross neurological examination did not reveal any focal deficits. Cranial nerves II to XII grossly intact. Psych: Appropriate affect and mood Assessment and Plan: Patient is a 44-year-old male with a past medical history significant for CAD with most recent stent on 03/25/2024, ischemic cardiomyopathy with EF 30-35% (03/12/2024), status post AICD placement, hypertension, hyperlipidemia, SVT, insulin-dependent diabetes, right BKA, lower extremity peripheral neuropathy, obstructive sleep apneaCPAP dependent admitted for NSTEMI. Active #. NSTEMI Aspirin 81 mg Heparin drip, monitor for bleeding, monitor APTT Atorvastatin 80 mg nightly Brilinta 90 mg PO twice daily Obtain lipid panel Cardiac monitoring Nitro-Bid ointment 0.5 inch topical every 8 hours Cardiology consultedcardiac catheterization today Chronic #. Ischemic cardiomyopathy with EF 30-35%, status post AICD placement #. Hypertension #. Hyperlipidemia #. History of SVT Entresto 24-26 mg PO twice daily Lipitor 80 mg PO at bedtime Lofibra 160 mg PO daily Metoprolol succinate 200 mg PO daily Holding SGLT2 inhibitor, diuretics and digoxin, Imdur, Ranexa #. Insulin-dependent diabetes mellitus Insulin sliding scale, monitor for hypoglycemia Accu-Cheks ACHS Hypoglycemic precautions -Hold Ozempic F: None E: Replete if required N: Heart healthy diet A: Ambulatory DVT prophylaxis: Heparin drip Code status: Full code Anticipated discharge place: Home I have seen and evaluated the patient today. Discussed with the resident and agree with the residents finding and plan as documented in the resident's note. Changes highlighted in blue font. Objective - Vital Signs Vital signs: Vital Signs Temp 98.5 F 04/07/24 18:33 Pulse 68 04/08/24 02:30 Resp 15 04/08/24 02:30 BP 135/77 04/08/24 02:30 Pulse Ox 96 04/08/24 02:30 FiO2 Intake & Output 04/07/24 04/07/24 04/08/24 06:59 18:59 06:59 Weight 121.563 kg - Labs CBC & Chem 7: 04/08/24 04:10 04/08/24 04:24 Labs: Abnormal Lab Results - Last 24 Hours (Table) 04/07/24 04/07/24 04/07/24 Range/Units 19:37 19:37 19:37 RBC 5.98 H (4.30-5.90) m/uL MCV 76.0 L (80.0-100.0) fL MCH 24.8 L (25.0-35.0) pg RDW 15.7 H (11.5-15.5) % PT (10.0-12.5) sec Chloride (98-107) mmol/L Carbon Dioxide (22-30) mmol/L BUN 22 H (9-20) mg/dL Glucose 239 H (74-99) mg/dL POC Glucose (mg/dL) (70-110) mg/dL Troponin I 0.049 H* (0.000-0.034) ng/mL 04/07/24 04/08/24 04/08/24 Range/Units 22:34 00:05 02:10 RBC (4.30-5.90) m/uL MCV (80.0-100.0) fL MCH (25.0-35.0) pg RDW (11.5-15.5) % PT 9.7 L (10.0-12.5) sec Chloride (98-107) mmol/L Carbon Dioxide (22-30) mmol/L BUN (9-20) mg/dL Glucose (74-99) mg/dL POC Glucose (mg/dL) 194 H (70-110) mg/dL Troponin I 0.047 H* (0.000-0.034) ng/mL 04/08/24 04/08/24 04/08/24 Range/Units 04:10 04:10 04:24 RBC (4.30-5.90) m/uL MCV 76.9 L (80.0-100.0) fL MCH 24.5 L (25.0-35.0) pg RDW 15.8 H (11.5-15.5) % PT (10.0-12.5) sec Chloride 108 H (98-107) mmol/L Carbon Dioxide 21 L (22-30) mmol/L BUN 24 H (9-20) mg/dL Glucose 163 H (74-99) mg/dL POC Glucose (mg/dL) (70-110) mg/dL Troponin I 0.040 H* (0.000-0.034) ng/mL
[2024-04-08 19:24] LABS: Glucose,Whole Blood 258 mg/dL (70-110)
[2024-04-08] MEDS: ATORVASTATIN 80 MG TAB PO SCH (19:48)
[2024-04-09 05:42] LABS: Glucose,Whole Blood 193 mg/dL (70-110)
[2024-04-09 07:31] LABS: Basophils # (A) 0.1 k/uL (0-0.2); Basophils % (A) 1 %; Eosinophils # (A) 0.4 k/uL (0-0.7); Eosinophils % (A) 5 %; HCT 45.7 % (39.0-53.0); HGB 14.6 gm/dL (13.0-17.5); Hypochromasia Slight; Lymphocytes # (A) 1.8 k/uL (1.0-4.8); Lymphocytes % (A) 24 %; MCH 24.3 pg (25.0-35.0); MCHC 31.9 g/dL (31.0-37.0); MCV 76.4 fL (80.0-100.0); Mean Platelet Volume 7.2; Microcytosis Slight; Monocytes # (A) 0.5 k/uL (0-1.0); Monocytes % (A) 7 %; Neutrophils # (A) 4.7 k/uL (1.3-7.7); Neutrophils % (A) 60 %; Platelet Count 291 k/uL (150-450); Poikilocytosis Slight; RBC 5.98 m/uL (4.30-5.90); RDW 15.9 % (11.5-15.5); WBC 7.7 k/uL (3.8-10.6)
[2024-04-09 08:04] LABS: African American GFR (CKD) >90 (>60 ml/min/1.73 sqM); Anion Gap 7 mmol/L; Blood Urea Nitrogen 16 mg/dL (9-20); Calcium 8.8 mg/dL (8.4-10.2); Carbon Dioxide 26 mmol/L (22-30); Chloride 105 mmol/L (98-107); Glucose 154 mg/dL (74-99); Non-African American GFR(CKD) >90 (>60 ml/min/1.73 sqM); Potassium 3.7 mmol/L (3.5-5.1); Sodium 138 mmol/L (137-145)
[2024-04-09] MEDS: METOPROLOL SUCCINATE (ER) 100 MG TAB.ER.24H PO SCH (08:43)
[2024-04-09] MEDS: ISOSORBIDE MONONITRATE ER 60 MG TAB.ER.24H PO SCH (08:43)
[2024-04-09] MEDS ORDERED: FUROSEMIDE 80 MG TAB PO SCH (09:30)
[2024-04-09] MEDS: RANOLAZINE 500 MG TAB.ER.12H PO SCH (11:27)
[2024-04-09] MEDS: DIGOXIN 250 MCG TAB PO SCH (11:27)
[2024-04-09] MEDS: FUROSEMIDE 20 MG TAB PO SCH (11:27)
[2024-04-09] MEDS: DAPAGLIFLOZIN PROPANEDIOL 10 MG TABLET PO SCH (11:27)
[2024-04-09] MEDS ORDERED: ALPRAZolam 0.25 MG TAB PO PRN (11:30)
[2024-04-09] MEDS ORDERED: NITROGLYCERIN SL TABS 0.4 MG TAB SUBLINGUAL PRN (11:30)
[2024-04-09] MEDS ORDERED: ALPRAZolam 0.5 MG TAB PO PRN (11:30)
--- NOTE | 2024-04-09 11:34 | P.PN ---
Subjective Progress Note Date: 04/09/24 Reason for Consult (text): NSTEMI History of present illness: This is 44-year-old male patient of Dr. Hernandez with history of CAD with known chronic total occlusion of the RCA and left circumflex with previous stenting of the LAD, severe ischemic cardiomyopathy with EF of 30 to 35% status post AICD, hypertension, dyslipidemia, diabetes insulin requiring, overweight, history of right below the knee amputation, obstructive sleep apnea on CPAP, noncompliance. We have been asked to evaluate the patient for NSTEMI. Patient has had 2 recent hospitalizations for chest pain in February. He underwent cardiac catheterization with Dr. Hernandez on 03/25 which found ASPHALT TILE FLOOR LAYER of the RCA and ASPHALT TILE FLOOR LAYER of the left circumflex, severe disease involving the mid to distal LAD and underwent PCI of the mid and distal LAD. This was performed following an abnormal Lexiscan Cardiolite stress test. Patient called the office yesterday due to chest pain that had been ongoing and plan was for patient to be scheduled for cardiac catheterization. Patient did show up to the emergency center due to chest pain. His chest pain is now a 6/10. He states morphine helped and he is also on Nitropaste. He has been taking nitro sublingually at home with improvement of chest pain. He states chest pain is worse with exertion. Patient has been started on heparin drip. Blood pressure 151/92, heart rate 68, pulse ox 96% on room air. Patient is seen today in the emergency center waiting for a bed on the cardiac stepdown unit. Discussed plan for cardiac catheterization later today and he is agreeable to move forward with this. Note that patient has not been taking Entresto due to insurance coverage issue. Patient has been started on heparin drip. -EKG: Sinus rhythm with IVCD -Chest x-ray: No acute process -Laboratory studies: Hemoglobin 13.8, BUN 24 creatinine 1.12, sodium 139, potassium 4.1. Troponins 0.049, 0.047, 0.040. -Home cardiac medications: Aspirin 81 mg daily, atorvastatin 80 mg at bedtime, digoxin 250 mg daily, Jardiance 25 mg daily, fenofibrate 145 mg daily, Lasix 80 mg daily, Imdur 60 mg daily, metoprolol succinate 200 mg daily, Nitrostat as needed, Ranexa 1000 mg twice daily, Xarelto 2.5 mg twice daily, Entresto 24-26 mg twice daily but patient has not started taking it, Brilinta 90 mg twice daily, patient is also on Ozempic. -Echocardiogram performed 03/12/2024 revealed EF 30 to 35%, severely dilated LV cavity, moderately concentric LVH, RVSP 27 mmHg, moderate biatrial dilatation, mild MR. 04/09/2024 Patient seen and examined. Yesterday, patient underwent cardiac catheterization which revealed patent stent in the mid and distal LAD, ASPHALT TILE FLOOR LAYER of the RCA and ASPHALT TILE FLOOR LAYER of the left circumflex both are known finding from before. Blood pressure 141/84, heart rate 66, pulse ox 99% on room air. Repeat blood work reveals WBC 7.7, hemoglobin 14.6, BUN 16 creatinine 0.89. Chest pain and he states the pain is worse when he is moving himself to the bathroom. Patient has been continued on a heparin drip. Discussed option of PCI tomorrow on 1 or both of the ASPHALT TILE FLOOR LAYER areas. Patient is agreeable to move forward with this. Will plan to make patient n.p.o. after midnight. Physical examination: Gen: This is a 44-year-old male in no acute distress VS: reviewed HEENT: Head is atraumatic, normocephalic. Pupils equal, round. Sclerae is anicteric. NECK: Supple. No JVD. LUNGS: Clear to auscultation. No wheezes or rhonchi. No intercostal retractions. HEART: Regular rate and rhythm. Systolic murmur. ABDOMEN: Soft No tenderness. EXTREMITIES: No pedal edema. No calf tenderness. NEUROLOGICAL: Patient is awake, alert and oriented x3. Assessment: Mild troponin elevation, possible NSTEMI Chest pain with exertion, unstable angina Known history of coronary artery disease with recent stent to the mid and distal LAD on 03/25 Severe ischemic cardiomyopathy with a EF of 30 to 35% status post AICD Hypertension Dyslipidemia Diabetes mellitus type 2 insulin requiring History of right below the knee amputation Obstructive sleep apnea on CPAP Concern for noncompliance Plan: Continue patient's home cardiac medications with the following changes Resume Imdur and discontinue Nitropaste Continue heparin drip and hold Xarelto Resume digoxin, Jardiance, Ranexa Schedule patient for PCI tomorrow with Dr. Hernandez N.p.o. after midnight Further recommendations to follow based upon clinical course Nurse practitioner note has been reviewed, I agree with documented findings and plan of care. Patient was seen and examined. Objective - Vital Signs Vital signs: Vital Signs Temp 97.2 F L 04/09/24 04:28 Pulse 66 04/09/24 04:28 Resp 14 04/09/24 04:28 BP 141/84 04/09/24 04:28 Pulse Ox 99 04/09/24 04:28 FiO2 Intake & Output 04/08/24 04/09/24 04/09/24 18:59 06:59 18:59 Intake Total 500 Balance 500 Weight 88 kg Intake: IV 100 Oral 400 Other: Voiding Method Toilet # Voids 2 - Labs CBC & Chem 7: 04/09/24 06:52 04/09/24 06:52 Labs: Abnormal Lab Results - Last 24 Hours (Table) 04/08/24 04/08/24 04/08/24 Range/Units 04:24 13:32 16:21 RBC (4.30-5.90) m/uL MCV (80.0-100.0) fL MCH (25.0-35.0) pg RDW (11.5-15.5) % Chloride 108 H (98-107) mmol/L Carbon Dioxide 21 L (22-30) mmol/L BUN 24 H (9-20) mg/dL Glucose 163 H (74-99) mg/dL POC Glucose (mg/dL) 186 H 187 H (70-110) mg/dL Triglycerides 580.00 H (0.00-149.00) mg/dL Cholesterol 211.00 H (0.00-200.00) mg/dL VLDL Cholesterol, Calc 116.00 H (5.00-40.00) mg/dL HDL Cholesterol 27.00 L (40.00-60.00) mg/dL 04/08/24 04/09/24 04/09/24 Range/Units 19:22 05:40 06:52 RBC 5.98 H (4.30-5.90) m/uL MCV 76.4 L (80.0-100.0) fL MCH 24.3 L (25.0-35.0) pg RDW 15.9 H (11.5-15.5) % Chloride (98-107) mmol/L Carbon Dioxide (22-30) mmol/L BUN (9-20) mg/dL Glucose (74-99) mg/dL POC Glucose (mg/dL) 258 H 193 H (70-110) mg/dL Triglycerides (0.00-149.00) mg/dL Cholesterol (0.00-200.00) mg/dL VLDL Cholesterol, Calc (5.00-40.00) mg/dL HDL Cholesterol (40.00-60.00) mg/dL 04/09/24 Range/Units 06:52 RBC (4.30-5.90) m/uL MCV (80.0-100.0) fL MCH (25.0-35.0) pg RDW (11.5-15.5) % Chloride (98-107) mmol/L Carbon Dioxide (22-30) mmol/L BUN (9-20) mg/dL Glucose 154 H (74-99) mg/dL POC Glucose (mg/dL) (70-110) mg/dL Triglycerides (0.00-149.00) mg/dL Cholesterol (0.00-200.00) mg/dL VLDL Cholesterol, Calc (5.00-40.00) mg/dL HDL Cholesterol (40.00-60.00) mg/dL
[2024-04-09 11:41] LABS: Glucose,Whole Blood 163 mg/dL (70-110)
--- NOTE | 2024-04-09 13:52 | P.PN ---
Subjective Progress Note Date: 04/09/2404/08. Patient seen and examined at bedside. No acute events overnight. No significant complaints today. Labs today: WBC 8.3, hemoglobin 13.8, platelets 298, PT 10.3, INR 0.9, APTT 24.2, sodium 139, potassium 4.1, chloride 108, CO2 21, BUN 24, creatinine 1.12, glucose 163. Troponin X3 0.049, 0.047, 0.040. Lipid panel: Triglycerides 580, cholesterol 211, LDL 116, HDL 27. Endorses substernal chest pain radiating to the neck, nausea, shortness of breath, numbness in the left arm. He denies fever, chills, vomiting, diarrhea. 04/09. Patient seen and examined in bed. Patient underwent cardiac c atheterization yesterday: Patent stent in the mid and distal LAD, MATCHER OPERATOR of the RCA and LCxboth known finding from before. Endorses unchanged chest pain, shortness of breath, periumbilical pain, nausea. Labs today: WBC 7.7, RBC 5.98, hemoglobin 14.6, sodium 138, potassium 3.7, chloride 105, CO2 26, BUN 16, creatinine 0.89, glucose 154, A1c 10, lipase 55. Pertinent positives and negatives discussed above, a complete review of systems was performed and all the other systems were negative. Physical examination: Vital signs reviewed. General: Nontoxic, no distress, appears stated age, well-appearing, bold that obese Derm: Warm, dry, intact Head: Atraumatic, normocephalic, symmetric Eyes: EOMI, anicteric sclera Mouth: No lip lesion, mucus membranes moist Cardiovascular: S1-S2 regular, no murmur Lungs: CTA bilateral, no rhonchi, no rales, no accessory muscle use Abdominal: Soft, mild periumbilical tenderness Extremities: No cyanosis, clubbing, or pedal edema, right BKA Neuro: Alert, oriented x 3, gross neurological examination did not reveal any focal deficits. Cranial nerves II to XII grossly intact. Psych: Appropriate affect and mood Assessment and Plan: Patient is a 44-year-old male with a past medical history significant for CAD with most recent stent on 03/25/2024, ischemic cardiomyopathy with EF 30-35% (03/12/2024), status post AICD placement, hypertension, hyperlipidemia, SVT, insulin-dependent diabetes, right BKA, lower extremity peripheral neuropathy, obstructive sleep apneaCPAP dependent admitted for NSTEMI. Active #. Acute NSTEMI Aspirin 81 mg Heparin dripXarelto currently on hold Monitor for bleeding Monitor APTT Atorvastatin 80 mg nightly Brilinta 90 mg PO twice daily Cardiac monitoring Discussed management with cardiology, plan for PCI tomorrow Cardiology followingrecommend the following changes: Resume Imdur, discontinue Nitro-Bid, resume digoxin, resume SGLT2 inhibitor, resume Ranexa NPO after midnight #. Periumbilical tenderness Lipase 55 Continue to monitor-plan for abdominal imaging if pain persists Chronic #. Ischemic cardiomyopathy with EF 30-35%, status post AICD placement #. Hypertension #. Hyperlipidemia #. History of SVT Entresto 24-26 mg PO twice daily Lipitor 80 mg PO at bedtime Lofibra 160 mg PO daily Metoprolol succinate 200 mg PO daily Restart SGLT2 inhibitor, digoxin, Imdur, Ranexa #. Insulin-dependent diabetes mellitus, uncontrolled Insulin sliding scale Accu-Cheks ACHS Hypoglycemic precautions Hold Ozempic F: None E: Replete if required N: NPO after midnight A: Ambulatory DVT prophylaxis: Heparin drip Code status: Full code Anticipated discharge place: Home Patient has failed observation status, will be switched to inpatient status. I have seen and evaluated the patient today. Discussed with the resident and agree with the residents finding and plan as documented in the resident's note. Changes highlighted in blue font. Objective - Vital Signs Vital signs: Vital Signs Temp 97.2 F L 04/09/24 04:28 Pulse 66 04/09/24 04:28 Resp 14 04/09/24 04:28 BP 141/84 04/09/24 04:28 Pulse Ox 99 04/09/24 04:28 FiO2 Intake & Output 04/08/24 04/08/24 04/09/24 06:59 18:59 06:59 Intake Total 79.507 500 Balance 79.507 500 Weight 88 kg Intake: IV 100 Intake, IV Titration 79.507 Amount Heparin Sod,Pork in 0.45% 79.507 NaCl 25,000 unit In 0.45 % NaCl 1 250ml.bag @ 8.21 UNITS/KG/HR 9.98 mls/hr IV .Q24H [facility] Rx#: [id number] Oral 400 Other: Voiding Method Toilet # Voids 2 - Labs CBC & Chem 7: 04/09/24 06:52 04/09/24 06:52 Labs: Abnormal Lab Results - Last 24 Hours (Table) 04/08/24 04/08/24 04/08/24 Range/Units 04:24 07:51 13:32 Chloride 108 H (98-107) mmol/L Carbon Dioxide 21 L (22-30) mmol/L BUN 24 H (9-20) mg/dL Glucose 163 H (74-99) mg/dL POC Glucose (mg/dL) 139 H 186 H (70-110) mg/dL Triglycerides 580.00 H (0.00-149.00) mg/dL Cholesterol 211.00 H (0.00-200.00) mg/dL VLDL Cholesterol, Calc 116.00 H (5.00-40.00) mg/dL HDL Cholesterol 27.00 L (40.00-60.00) mg/dL 04/08/24 04/08/24 04/09/24 Range/Units 16:21 19:22 05:40 Chloride (98-107) mmol/L Carbon Dioxide (22-30) mmol/L BUN (9-20) mg/dL Glucose (74-99) mg/dL POC Glucose (mg/dL) 187 H 258 H 193 H (70-110) mg/dL Triglycerides (0.00-149.00) mg/dL Cholesterol (0.00-200.00) mg/dL VLDL Cholesterol, Calc (5.00-40.00) mg/dL HDL Cholesterol (40.00-60.00) mg/dL
[2024-04-09 16:18] LABS: Glucose,Whole Blood 264 mg/dL (70-110)
[2024-04-09] MEDS: INSULIN DETEMIR (LEVEMIR) 100 UNIT/ML SYR SQ STA (16:23)
[2024-04-09 20:42] LABS: Glucose,Whole Blood 201 mg/dL (70-110)
[2024-04-10 06:03] LABS: Glucose,Whole Blood 175 mg/dL (70-110)
[2024-04-10] MEDS: ASPIRIN 325 MG TAB PO ONE (06:15)
[2024-04-10] MEDS: INSULIN DETEMIR (LEVEMIR) 100 UNIT/ML SYR SQ SCH (06:16)
[2024-04-10 09:22] LABS: Basophils # (A) 0.1 k/uL (0-0.2); Basophils % (A) 1 %; Eosinophils # (A) 0.3 k/uL (0-0.7); Eosinophils % (A) 4 %; HCT 46.7 % (39.0-53.0); HGB 14.7 gm/dL (13.0-17.5); Hypochromasia Slight; Lymphocytes # (A) 1.7 k/uL (1.0-4.8); Lymphocytes % (A) 21 %; MCH 24.2 pg (25.0-35.0); MCHC 31.4 g/dL (31.0-37.0); Mean Platelet Volume 7.1; Microcytosis Slight; Monocytes # (A) 0.6 k/uL (0-1.0); Monocytes % (A) 8 %; Neutrophils # (A) 5.4 k/uL (1.3-7.7); Neutrophils % (A) 65 %; Platelet Count 281 k/uL (150-450); RBC 6.07 m/uL (4.30-5.90); RDW 15.8 % (11.5-15.5); WBC 8.3 k/uL (3.8-10.6)
[2024-04-10 09:30] LABS: African American GFR (CKD) >90 (>60 ml/min/1.73 sqM); Anion Gap 6 mmol/L; Blood Urea Nitrogen 21 mg/dL (9-20); Calcium 8.9 mg/dL (8.4-10.2); Carbon Dioxide 25 mmol/L (22-30); Chloride 105 mmol/L (98-107); Glucose 151 mg/dL (74-99); Non-African American GFR(CKD) 87 (>60 ml/min/1.73 sqM); Potassium 4.2 mmol/L (3.5-5.1); Sodium 136 mmol/L (137-145)
[2024-04-10] MEDS: LIDOCAINE 1% INJ 10MG/ML (20 ML MDV) SQ ONE (10:37)
[2024-04-10] MEDS: VERAPAMIL SYRINGE (5 MG/10 ML) INTRAARTER ONE (10:38)
[2024-04-10] MEDS: MIDAZOLAM 2 MG/2 ML VIAL IVP ONE (10:38)
[2024-04-10 10:39] VITALS: BMI 35.6
[2024-04-10] MEDS: HEPARIN SODIUM 1,000 UN/ML (10ML VL) IVP ONE (10:41)
[2024-04-10] MEDS: SODIUM CHLORIDE 0.9% 1,000 ML IV ONE (10:41)
[2024-04-10] MEDS: HEPARIN SODIUM,PORCINE (1 ML) 2,500 UNIT in SODIUM CHLORIDE 0.9% 250 ML IRRIGATION PRN (10:42)
[2024-04-10] MEDS: HEPARIN SODIUM,PORCINE 10,000 UNIT in SODIUM CHLORIDE 0.9% 1,000 ML IRRIGATION PRN (10:42)
[2024-04-10] MEDS ORDERED: RX INFO: IV CONTRAST WAS GIVEN 1 EACH MISC MISCELLANE PRN (11:29)
[2024-04-10] MEDS ORDERED: NITROGLYCERIN SL TABS 0.4 MG TAB SUBLINGUAL PRN (11:29)
[2024-04-10] MEDS ORDERED: ATROPINE SULFATE 0.1 MG/ML 10ML SYRINGE IV PRN (11:29)
[2024-04-10] MEDS ORDERED: MAG HYDROX/AL HYDROX/SIMETH 30 ML CUP PO PRN (11:29)
[2024-04-10] MEDS ORDERED: ZOLPIDEM 5 MG TAB PO PRN (11:29)
--- NOTE | 2024-04-10 11:32 | P.PCN ---
Date of Procedure: 04/10/24 Operative Findings: PERCUTANEOUS CORONARY INTERVENTION Performing physician Damion Hernandez M.D. Procedure Performed: 1. Successful PTCA of both the PDA and PLV branches of the RCA with an excellent angiographic results 2. Adjunctive use of IVUS 3. Ultrasound-guided access of the right radial artery Indication: Chest discomfort concerning for angina in this 44-year-old gentleman with extensive cardiovascular history who continues to have ongoing chest pain Approach: Right radial art Complications: None Level of Sedation: Moderate with a sedation length of 50 minutes Procedure Discussion: After attending informed consent the patient was brought to the cardiac Manager Fraud with right radial artery was cannulated using micropuncture technique under ultrasound guidance a micropuncture wire passed easily then I placed a 6 Danish 11 cm sheath at the right radial artery with anticoagulation was initiated using heparin with continuous ACT monitoring. Subsequently I did engage the RCA using an AL 0.75 guiding catheter with I did wired both the PDA and PLV branches using a whisper wire. Intravascular ultrasound was performed and showed a diameter around 3 mm of the PLV branch. Initially attempting advancing 3 mm NC balloon to the PDA branch was unsuccessful but after ballooning using 1 mm and subsequently 1.5 mm and then 2.5 mm I was able to advance a 3 mm NC balloon to the PDA and then PLV branches of the RCA. Both were balloon. Following that an angiogram was performed and showed an excellent angiographic results. The procedure was completed with no complication Postprocedure Management: 1. Dual antiplatelet therapy using aspirin and Brilinta for at least 12 months and probably indefinitely 2. Risk factors modification 3. Follow-up with the patient
[2024-04-10] MEDS: IOPAMIDOL-370 100ML BTL INJ ONE (11:35)
[2024-04-10] MEDS: SODIUM CHLORIDE 0.9% 1,000 ML in EMPTY BAG 1 BAG IV SCH (11:51)
[2024-04-10 11:59] LABS: Glucose,Whole Blood 135 mg/dL (70-110)
--- NOTE | 2024-04-10 12:52 | P.PN ---
Subjective Progress Note Date: 04/10/2404/08. Patient seen and examined at bedside. No acute events overnight. No significant complaints today. Labs today: WBC 8.3, hemoglobin 13.8, platelets 298, PT 10.3, INR 0.9, APTT 24.2, sodium 139, potassium 4.1, chloride 108, CO2 21, BUN 24, creatinine 1.12, glucose 163. Troponin X3 0.049, 0.047, 0.040. Lipid panel: Triglycerides 580, cholesterol 211, LDL 116, HDL 27. Endorses substernal chest pain radiating to the neck, nausea, shortness of breath, numbness in the left arm. He denies fever, chills, vomiting, diarrhea. 04/09. Patient seen and examined in bed. Patient underwent cardiac c atheterization yesterday: Patent stent in the mid and distal LAD, ACCOUNTING SYSTEMS ANALYST of the RCA and LCxboth known finding from before. Endorses unchanged chest pain, shortness of breath, periumbilical pain, nausea. Labs today: WBC 7.7, RBC 5.98, hemoglobin 14.6, sodium 138, potassium 3.7, chloride 105, CO2 26, BUN 16, creatinine 0.89, glucose 154, A1c 10, lipase 55. 04/10. Patient seen sitting comfortably in bed. No acute events overnight. Plan for PCI today. Reports unchanged chest pain, abdominal pain, and dyspnea. Endorses improved nausea. Labs today: WBC 8.3, hemoglobin 14.7, platelet 281, sodium 136, potassium 4.2, chloride 105, CO2 25, BUN 21, creatinine 1.04, glucose 151. Pertinent positives and negatives discussed above, a complete review of systems was performed and all the other systems were negative. Physical examination: Vital signs reviewed. General: Nontoxic, no distress, appears stated age, well-appearing, obese Derm: Warm, dry, intact; puritic macules on scalp Head: Atraumatic, normocephalic, symmetric Eyes: EOMI, anicteric sclera Mouth: No lip lesion, mucus membranes moist Cardiovascular: S1-S2 regular, no murmur Lungs: CTA bilateral, no rhonchi, no rales, no accessory muscle use Abdominal: Soft, mild periumbilical tenderness Extremities: No cyanosis, clubbing, or pedal edema, right BKA Neuro: Alert, oriented x 3, gross neurological examination did not reveal any focal deficits. Cranial nerves II to XII grossly intact. Psych: Appropriate affect and mood Assessment and Plan: Patient is a 44-year-old male with a past medical history significant for CAD with most recent stent on 03/25/2024, ischemic cardiomyopathy with EF 30-35% (03/12/2024), status post AICD placement, hypertension, hyperlipidemia, SVT, insulin-dependent diabetes, right BKA, lower extremity peripheral neuropathy, obstructive sleep apneaCPAP dependent admitted for NSTEMI. Active #. Acute NSTEMI Scheduled for PCI today Aspirin 81 mg Heparin dripXarelto currently on hold Monitor for bleeding Monitor APTT Atorvastatin 80 mg nightly Brilinta 90 mg PO twice daily Obtain lipid panel Cardiac monitoring Cardiology following #. Periumbilical tenderness Lipase 55 Continue to monitor-plan for abdominal imaging if pain persists Chronic #. Ischemic cardiomyopathy with EF 30-35%, status post AICD placement #. Hypertension #. Hyperlipidemia #. History of SVT Entresto 24-26 mg PO twice daily Lipitor 80 mg PO at bedtime Lofibra 160 mg PO daily Metoprolol succinate 200 mg PO daily Restart SGLT2 inhibitor, digoxin, Imdur, Ranexa #. Insulin-dependent diabetes mellitus, uncontrolled Insulin sliding scale Accu-Cheks ACHS Hypoglycemic precautions Hold Ozempic F: None E: Replete if required N: NPO A: Ambulatory DVT prophylaxis: Heparin drip Code status: Full code Anticipated discharge place: Home I have seen and evaluated the patient today. Discussed with the resident and agree with the residents finding and plan as documented in the resident's note. Changes highlighted in blue font. Objective - Vital Signs Vital signs: Vital Signs Temp 97.9 F 04/10/24 07:47 Pulse 67 04/10/24 07:47 Resp 16 04/10/24 07:47 BP 130/79 04/10/24 07:47 Pulse Ox 98 04/10/24 07:47 FiO2 Intake & Output 04/09/24 04/10/24 04/10/24 18:59 06:59 18:59 Intake Total 1071 Balance 1071 Weight 119.1 kg Intake: Oral 1071 Other: Voiding Method Toilet Toilet # Voids 2 3 - Labs CBC & Chem 7: 04/10/24 08:03 04/10/24 08:03 Labs: Abnormal Lab Results - Last 24 Hours (Table) 04/09/24 04/09/24 04/09/24 Range/Units 06:52 11:39 16:16 POC Glucose (mg/dL) 163 H 264 H (70-110) mg/dL Hemoglobin A1c 10.0 H (<=6.0) % 04/09/24 04/10/24 Range/Units 20:40 06:02 POC Glucose (mg/dL) 201 H 175 H (70-110) mg/dL Hemoglobin A1c (<=6.0) %
--- NOTE | 2024-04-10 13:32 | P.PN ---
Subjective Progress Note Date: 04/10/24 Reason for Consult (text): NSTEMI History of present illness: This is 44-year-old male patient of Dr. Hernandez with history of CAD with known chronic total occlusion of the RCA and left circumflex with previous stenting of the LAD, severe ischemic cardiomyopathy with EF of 30 to 35% status post AICD, hypertension, dyslipidemia, diabetes insulin requiring, overweight, history of right below the knee amputation, obstructive sleep apnea on CPAP, noncompliance. We have been asked to evaluate the patient for NSTEMI. Patient has had 2 recent hospitalizations for chest pain in February. He underwent cardiac catheterization with Dr. Hernandez on 03/25 which found FIRESTOP/CONTAINMENT WORKER of the RCA and FIRESTOP/CONTAINMENT WORKER of the left circumflex, severe disease involving the mid to distal LAD and underwent PCI of the mid and distal LAD. This was performed following an abnormal Lexiscan Cardiolite stress test. Patient called the office yesterday due to chest pain that had been ongoing and plan was for patient to be scheduled for cardiac catheterization. Patient did show up to the emergency center due to chest pain. His chest pain is now a 6/10. He states morphine helped and he is also on Nitropaste. He has been taking nitro sublingually at home with improvement of chest pain. He states chest pain is worse with exertion. Patient has been started on heparin drip. Blood pressure 151/92, heart rate 68, pulse ox 96% on room air. Patient is seen today in the emergency center waiting for a bed on the cardiac stepdown unit. Discussed plan for cardiac catheterization later today and he is agreeable to move forward with this. Note that patient has not been taking Entresto due to insurance coverage issue. Patient has been started on heparin drip. -EKG: Sinus rhythm with IVCD -Chest x-ray: No acute process -Laboratory studies: Hemoglobin 13.8, BUN 24 creatinine 1.12, sodium 139, potassium 4.1. Troponins 0.049, 0.047, 0.040. -Home cardiac medications: Aspirin 81 mg daily, atorvastatin 80 mg at bedtime, digoxin 250 mg daily, Jardiance 25 mg daily, fenofibrate 145 mg daily, Lasix 80 mg daily, Imdur 60 mg daily, metoprolol succinate 200 mg daily, Nitrostat as needed, Ranexa 1000 mg twice daily, Xarelto 2.5 mg twice daily, Entresto 24-26 mg twice daily but patient has not started taking it, Brilinta 90 mg twice daily, patient is also on Ozempic. -Echocardiogram performed 03/12/2024 revealed EF 30 to 35%, severely dilated LV cavity, moderately concentric LVH, RVSP 27 mmHg, moderate biatrial dilatation, mild MR. 04/09/2024 Patient seen and examined. Yesterday, patient underwent cardiac catheterization which revealed patent stent in the mid and distal LAD, FIRESTOP/CONTAINMENT WORKER of the RCA and FIRESTOP/CONTAINMENT WORKER of the left circumflex both are known finding from before. Blood pressure 141/84, heart rate 66, pulse ox 99% on room air. Repeat blood work reveals WBC 7.7, hemoglobin 14.6, BUN 16 creatinine 0.89. Chest pain and he states the pain is worse when he is moving himself to the bathroom. Patient has been continued on a heparin drip. Discussed option of PCI tomorrow on 1 or both of the FIRESTOP/CONTAINMENT WORKER areas. Patient is agreeable to move forward with this. Will plan to make patient n.p.o. after midnight. 04/10/2024 Patient seen and examined. Patient states his chest pain is unchanged from yesterday. He has been maintained on heparin drip. Discussed plan to return to the Manager Placement for PCI. Patient is agreeable to move forward with this. Blood pressure 130/79, heart rate 67, pulse ox 98% on room air. Repeat blood work reveals hemoglobin 14.7, BUN 21 creatinine 1.04, potassium 4.2. Physical examination: Gen: This is a 44-year-old male in no acute distress VS: reviewed HEENT: Head is atraumatic, normocephalic. Pupils equal, round. Sclerae is anicteric. NECK: Supple. No JVD. LUNGS: Clear to auscultation. No wheezes or rhonchi. No intercostal retractions. HEART: Regular rate and rhythm. Systolic murmur. ABDOMEN: Soft No tenderness. EXTREMITIES: Right sided BKA, left no pedal edema. No calf tenderness. NEUROLOGICAL: Patient is awake, alert and oriented x3. Assessment: Mild troponin elevation, possible NSTEMI Chest pain with exertion, unstable angina Known history of coronary artery disease with recent stent to the mid and distal LAD on 03/25 Severe ischemic cardiomyopathy with a EF of 30 to 35% status post AICD Hypertension Dyslipidemia Diabetes mellitus type 2 insulin requiring History of right below the knee amputation Obstructive sleep apnea on CPAP Concern for noncompliance Plan: Continue patient's home cardiac medications with the following changes Continue heparin drip and hold Xarelto Schedule patient for PCI today with Dr. Hernandez N.p.o. Further recommendations to follow based upon clinical course Nurse practitioner note has been reviewed, I agree with documented findings and plan of care. Patient was seen and examined. Objective - Vital Signs Vital signs: Vital Signs Temp 97.9 F 04/10/24 07:47 Pulse 67 04/10/24 07:47 Resp 16 04/10/24 07:47 BP 130/79 04/10/24 07:47 Pulse Ox 98 04/10/24 07:47 FiO2 Intake & Output 04/09/24 04/10/24 04/10/24 18:59 06:59 18:59 Intake Total 1071 Balance 1071 Weight 119.1 kg Intake: Oral 1071 Other: Voiding Method Toilet Toilet # Voids 2 3 - Labs CBC & Chem 7: 04/10/24 08:03 04/10/24 08:03 Labs: Abnormal Lab Results - Last 24 Hours (Table) 04/09/24 04/09/24 04/09/24 Range/Units 06:52 11:39 16:16 POC Glucose (mg/dL) 163 H 264 H (70-110) mg/dL Hemoglobin A1c 10.0 H (<=6.0) % 04/09/24 04/10/24 Range/Units 20:40 06:02 POC Glucose (mg/dL) 201 H 175 H (70-110) mg/dL Hemoglobin A1c (<=6.0) %
[2024-04-10 16:20] LABS: Glucose,Whole Blood 263 mg/dL (70-110)
[2024-04-10 20:42] LABS: Glucose,Whole Blood 214 mg/dL (70-110)
[2024-04-11 06:20] LABS: Glucose,Whole Blood 177 mg/dL (70-110)
[2024-04-11 08:33] LABS: Basophils # (A) 0.1 k/uL (0-0.2); Basophils % (A) 1 %; Eosinophils # (A) 0.4 k/uL (0-0.7); Eosinophils % (A) 5 %; HCT 46.2 % (39.0-53.0); HGB 14.4 gm/dL (13.0-17.5); Hypochromasia Slight; Lymphocytes % (A) 26 %; MCH 24.2 pg (25.0-35.0); MCHC 31.3 g/dL (31.0-37.0); MCV 77.3 fL (80.0-100.0); Mean Platelet Volume 7.1; Microcytosis Slight; Monocytes # (A) 0.5 k/uL (0-1.0); Monocytes % (A) 7 %; Neutrophils # (A) 4.5 k/uL (1.3-7.7); Neutrophils % (A) 59 %; Platelet Count 281 k/uL (150-450); RBC 5.98 m/uL (4.30-5.90); RDW 15.7 % (11.5-15.5); WBC 7.6 k/uL (3.8-10.6)
[2024-04-11 08:44] LABS: African American GFR (CKD) >90 (>60 ml/min/1.73 sqM); Anion Gap 6 mmol/L; Blood Urea Nitrogen 23 mg/dL (9-20); Calcium 8.8 mg/dL (8.4-10.2); Carbon Dioxide 27 mmol/L (22-30); Chloride 104 mmol/L (98-107); Glucose 180 mg/dL (74-99); Non-African American GFR(CKD) >90 (>60 ml/min/1.73 sqM); Potassium 4.1 mmol/L (3.5-5.1); Sodium 137 mmol/L (137-145)
[2024-04-11 11:31] LABS: Glucose,Whole Blood 167 mg/dL (70-110)
--- NOTE | 2024-04-11 12:44 | P.PN ---
Subjective Progress Note Date: 04/11/24 This is 44-year-old male patient of Dr. Hernandez with history of CAD with known chronic total occlusion of the RCA and left circumflex with previous stenting of the LAD, severe ischemic cardiomyopathy with EF of 30 to 35% status post AICD, hypertension, dyslipidemia, diabetes insulin requiring, overweight, history of right below the knee amputation, obstructive sleep apnea on CPAP, noncompliance. We have been asked to evaluate the patient for NSTEMI. Patient has had 2 recent hospitalizations for chest pain in February. He underwent cardiac catheterization with Dr. Hernandez on 03/25 which found MANAGER BODY of the RCA and MANAGER BODY of the left circumflex, severe disease involving the mid to distal LAD and underwent PCI of the mid and distal LAD. This was performed following an abnormal Lexiscan Cardiolite stress test. Patient called the office yesterday due to chest pain that had been ongoing and plan was for patient to be scheduled for cardiac catheterization. Patient did show up to the emergency center due to chest pain. His chest pain is now a 6/10. He states morphine helped and he is also on Nitropaste. He has been taking nitro sublingually at home with improvement of chest pain. He states chest pain is worse with exertion. Patient has been started on heparin drip. Blood pressure 151/92, heart rate 68, pulse ox 96% on room air. Patient is seen today in the emergency center waiting for a bed on the cardiac stepdown unit. Discussed plan for cardiac catheterization later today and he is agreeable to move forward with this. Note that patient has not been taking Entresto due to insurance coverage issue. Patient has been started on heparin drip. -EKG: Sinus rhythm with IVCD -Chest x-ray: No acute process -Laboratory studies: Hemoglobin 13.8, BUN 24 creatinine 1.12, sodium 139, potassium 4.1. Troponins 0.049, 0.047, 0.040. -Home cardiac medications: Aspirin 81 mg daily, atorvastatin 80 mg at bedtime, digoxin 250 mg daily, Jardiance 25 mg daily, fenofibrate 145 mg daily, Lasix 80 mg daily, Imdur 60 mg daily, metoprolol succinate 200 mg daily, Nitrostat as needed, Ranexa 1000 mg twice daily, Xarelto 2.5 mg twice daily, Entresto 24-26 mg twice daily but patient has not started taking it, Brilinta 90 mg twice daily, patient is also on Ozempic. -Echocardiogram performed 03/12/2024 revealed EF 30 to 35%, severely dilated LV cavity, moderately concentric LVH, RVSP 27 mmHg, moderate biatrial dilatation, mild MR. 04/09/2024 Patient seen and examined. Yesterday, patient underwent cardiac catheterization which revealed patent stent in the mid and distal LAD, MANAGER BODY of the RCA and MANAGER BODY of the left circumflex both are known finding from before. Blood pressure 141/84, heart rate 66, pulse ox 99% on room air. Repeat blood work reveals WBC 7.7, hemoglobin 14.6, BUN 16 creatinine 0.89. Chest pain and he states the pain is worse when he is moving himself to the bathroom. Patient has been continued on a heparin drip. Discussed option of PCI tomorrow on 1 or both of the MANAGER BODY areas. Patient is agreeable to move forward with this. Will plan to make patient n.p.o. after midnight. 04/10/2024 Patient seen and examined. Patient states his chest pain is unchanged from yesterday. He has been maintained on heparin drip. Discussed plan to return to the Fourdrinier Machine Operator for PCI. Patient is agreeable to move forward with this. Blood pressure 130/79, heart rate 67, pulse ox 98% on room air. Repeat blood work reveals hemoglobin 14.7, BUN 21 creatinine 1.04, potassium 4.2. 04/11/2024 Seen and examined at bedside this a.m. Underwent percutaneous intervention in right coronary artery with a balloon angioplasty yesterday with Dr. Orlando. No postop complications. Blood pressure still elevated. Physical examination: Gen: This is a 44-year-old male in no acute distress VS: reviewed HEENT: Head is atraumatic, normocephalic. Pupils equal, round. Sclerae is anicteric. NECK: Supple. No JVD. LUNGS: Clear to auscultation. No wheezes or rhonchi. No intercostal retractions. HEART: Regular rate and rhythm. Systolic murmur. ABDOMEN: Soft No tenderness. EXTREMITIES: Right sided BKA, left no pedal edema. No calf tenderness. NEUROLOGICAL: Patient is awake, alert and oriented x3. Assessment: Mild troponin elevation, possible NSTEMI Chest pain with exertion, unstable angina Known history of coronary artery disease with recent stent to the mid and distal LAD on 03/25 Severe ischemic cardiomyopathy with a EF of 30 to 35% status post AICD Hypertension Dyslipidemia Diabetes mellitus type 2 insulin requiring History of right below the knee amputation Obstructive sleep apnea on CPAP Concern for noncompliance Plan: Add Xarelto 2.5 mg twice daily, for PAD and stable CAD Entresto increased to 49/50 mg twice daily, Add Zetia DC Lasix and add Aldactone Continue aspirin 81 mg, Brilinta 90 mg twice daily Fenofibrate, Lipitor, Metoprolol succinate 200 mg, Imdur 60, Ranexa 1000 twice daily Farxiga 10 mg daily, Continue dig. If LDL and triglycerides not controlled, consider Repatha on outpatient basis Recommend strict diabetes control: HbA1c is 10. Recommend strict blood pressure control. Patient is cleared from cardiac standpoint. Recommend outpatient follow-up with Dr. Orlando in next 1 week Objective - Vital Signs Vital signs: Vital Signs Temp 98.1 F 04/11/24 11:53 Pulse 70 04/11/24 11:53 Resp 18 04/11/24 11:53 BP 144/82 04/11/24 11:53 Pulse Ox 99 04/11/24 11:53 FiO2 Intake & Output 04/10/24 04/11/24 04/11/24 18:59 06:59 18:59 Intake Total 970 821 480 Balance 970 821 480 Weight 119.1 kg 120.2 kg Intake: IV 130 600 0.9 600 Oral 840 221 480 Other: Voiding Method Toilet Toilet Toilet - Labs CBC & Chem 7: 04/11/24 07:26 04/11/24 07:26 Labs: Abnormal Lab Results - Last 24 Hours (Table) 04/10/24 04/10/24 04/11/24 Range/Units 16:19 20:41 06:18 RBC (4.30-5.90) m/uL MCV (80.0-100.0) fL MCH (25.0-35.0) pg RDW (11.5-15.5) % BUN (9-20) mg/dL Glucose (74-99) mg/dL POC Glucose (mg/dL) 263 H 214 H 177 H (70-110) mg/dL 04/11/24 04/11/2424 Range/Units 07:26 07:26 11:20 RBC 5.98 H (4.30-5.90) m/uL MCV 77.3 L (80.0-100.0) fL MCH 24.2 L (25.0-35.0) pg RDW 15.7 H (11.5-15.5) % BUN 23 H (9-20) mg/dL Glucose 180 H (74-99) mg/dL POC Glucose (mg/dL) 167 H (70-110) mg/dL
--- NOTE | 2024-04-11 12:59 | P.DS ---
Providers Date of admission: 04/07/24 22:14 Expected date of discharge: 04/11/24 Attending physician: Dinh Britt MD Consults: 04/07/24 21:55 Consult Physician Urgent Consulting Provider: Kerry Wyman Consult Reason/Comments: nstemi. spoke with elsa Do you want consulting provider notified?: Yes 04/10/24 11:29 Consult Physician Routine Consulting Provider: Cardiology Garo Consult Reason/Comments: Post Interventional patient Do you want consulting provider notified?: Already Contacted Primary care physician: Physician Nonstaff Hospital Course: Hospital Course: Patient is a 44-year-old male with past medical history of coronary artery disease with previous history of myocardial infarction and stent placement, congestive heart failure with most recent echocardiogram showing EF of 30 to 35% (03/12/2024) status post AICD placement, type 2 diabetes mellitus, hypertension, hyperlipidemia, lower extremity peripheral neuropathy, right below the knee amputation and obstructive sleep apnea on CPAP presented to the emergency department with a chief complaint of chest pain. Patient was recently admitted for similar complaints and underwent cardiac catheterization with PCI with stenting of mid and distal LAD on 03/25/[address] Hernandez. Patient reported that the chest pain started this afternoon at 4 PM when patient was walking from the restroom back to living room. Patient reports a constant, pressure-like chest pain in the substernal region which radiated towards his neck and left arm. Patient currently endorses a 5 out of 10 in terms of severity. The last time patient had a myocardial infarction was 2017. Patient has an extensive history of heart disease in the past. Cardiology was consulted. He underwent cardiac catheterization and successful PTCA of PDA and PLV branches of RCA on 04/10/2024. Patient is medically optimized for discharge. Medication changes as follows: Entresto 49-51 mg p.o. twice daily, spironolactone 12.5 mg p.o. daily. Final Diagnosis: #. Acute NSTEMI successful PTCA of PDA and PLV branches of RCA 04/10/2024 #. Periumbilical tenderness #. Ischemic cardiomyopathy with EF 30-35%, status post AICD placement #. Hypertension #. Hyperlipidemia #. History of SVT #. Insulin-dependent diabetes mellitus, uncontrolled Physical examination: Vital signs reviewed. General: Nontoxic, no distress, appears stated age, well-appearing, obese Derm: Warm, dry, intact; puritic macules on scalp Head: Atraumatic, normocephalic, symmetric Eyes: EOMI, anicteric sclera Mouth: No lip lesion, mucus membranes moist Cardiovascular: S1-S2 regular, no murmur Lungs: CTA bilateral, no rhonchi, no rales, no accessory muscle use Abdominal: Soft, mild periumbilical tenderness Extremities: No cyanosis, clubbing, or pedal edema, right BKA Neuro: Alert, oriented x 3, gross neurological examination did not reveal any focal deficits. Cranial nerves II to XII grossly intact. Psych: Appropriate affect and mood A total of 33 minutes of time were spent preparing this complex discharge summary. Patient was discharged on 04/11/2024 at 1110. I have seen and evaluated the patient today. Discussed with the resident and agree with the residents finding and plan as documented in the resident's note. Changes highlighted in blue font. Patient Condition at Discharge: Stable Plan - Discharge Summary Discharge Rx Participant: No New Discharge Prescriptions: New Sacubitril/Valsartan [Entresto 49 mg-51 mg Tablet] 1 each PO BID #60 tablet Spironolactone [Aldactone] 12.5 mg PO DAILY #30 tablet Mag Hydrox/Al Hydrox/Simeth [Maalox] 30 ml PO Q4HR PRN ml PRN Reason: Heartburn Continue Aspirin 81 mg PO DAILY #30 Empagliflozin [Jardiance] 25 mg PO DAILY Atorvastatin [Lipitor] 80 mg PO HS Insulin NPH Hum/Reg Insulin Hm [humuLIN 70/30 Kwikpen] 60 unit SQ BID Ranolazine [Ranexa] 1,000 mg PO BID Fenofibrate Nanocrystallized [Fenofibrate] 145 mg PO DAILY Digoxin [Digitek] 250 mcg PO DAILY Lidocaine 4% Patch 1 patch TOPICAL DAILY 30 Days #30 patch Metoprolol Succinate (ER) [Toprol XL] 200 mg PO DAILY Furosemide [Lasix] 80 mg PO DAILY Nitroglycerin Sl Tabs [Nitrostat] 0.4 mg SUBLINGUAL Q5M PRN #30 tab PRN Reason: Chest Pain Isosorbide Mononitrate ER [Imdur] 60 mg PO DAILY Semaglutide [Ozempic] 1 mg SQ TH Rivaroxaban [Xarelto] 2.5 mg PO BID Naproxen [Naprosyn] 250 mg PO TID PRN #12 tab PRN Reason: Pain Ticagrelor [Brilinta] 90 mg PO BID #60 tab oxyCODONE HCL/ACETAMINOPHEN [Percocet 5-325 mg] 1 tab PO Q6HR PRN 3 Days #12 tab PRN Reason: Pain Discontinued Sacubitril/Valsartan [Entresto 24 mg-26 mg Tablet] 1 tab PO DIRECTED Discharge Medication List Furosemide [Lasix] 80 mg PO DAILY 07/25/20 [History] Aspirin 81 mg PO DAILY #30 07/15/21 [Rx] Nitroglycerin Sl Tabs [Nitrostat] 0.4 mg SUBLINGUAL Q5M PRN #30 tab 07/15/21 [Rx] Atorvastatin [Lipitor] 80 mg PO HS 10/13/21 [History] Empagliflozin [Jardiance] 25 mg PO DAILY 10/13/21 [History] Insulin NPH Hum/Reg Insulin Hm [humuLIN 70/30 Kwikpen] 60 unit SQ BID 12/07/21 [History] Digoxin [Digitek] 250 mcg PO DAILY 03/11/24 [History] Fenofibrate Nanocrystallized [Fenofibrate] 145 mg PO DAILY 03/11/24 [History] Isosorbide Mononitrate ER [Imdur] 60 mg PO DAILY 03/11/24 [History] Ranolazine [Ranexa] 1,000 mg PO BID 03/11/24 [History] Rivaroxaban [Xarelto] 2.5 mg PO BID 03/11/24 [History] Semaglutide [Ozempic] 1 mg SQ TH 03/11/24 [History] Lidocaine 4% Patch 1 patch TOPICAL DAILY 30 Days #30 patch 03/13/24 [Rx] Naproxen [Naprosyn] 250 mg PO TID PRN #12 tab 03/13/24 [Rx] Ticagrelor [Brilinta] 90 mg PO BID #60 tab 03/26/24 [Rx] oxyCODONE HCL/ACETAMINOPHEN [Percocet 5-325 mg] 1 tab PO Q6HR PRN 3 Days #12 tab 03/26/24 [Rx] Metoprolol Succinate (ER) [Toprol XL] 200 mg PO DAILY 04/08/24 [History] Mag Hydrox/Al Hydrox/Simeth [Maalox] 30 ml PO Q4HR PRN ml 12/21/24 [Rx] Sacubitril/Valsartan [Entresto 49 mg-51 mg Tablet] 1 each PO BID #60 tablet 04/11/24 [Rx] Spironolactone [Aldactone] 12.5 mg PO DAILY #30 tablet 04/11/24 [Rx] Follow up Appointment(s)/Referral(s): Damion Hernandez MD [STAFF PHYSICIAN] - 1 Week [facility] [NON-STAFF] - 1 Week Nonstaff,Physician [Primary Care Provider] - 1-2 days Patient Instructions/Handouts: Heart Catheterization (DC) Activity/Diet/Wound Care/Special Instructions: Please see your PCP and water supply engineer. Discharge Disposition: HOME SELF-CARE
[2024-04-11] MEDS: SPIRONOLACTONE 25 MG TAB PO SCH (13:55)
[2024-04-11] MEDS: SACUBITRIL/VALSARTAN 24 MG-26 MG TABLET PO STA (13:55)
[2024-04-11 14:46] VITALS: RESP 16
[2024-04-11 15:34] VITALS: BP 122/76; PULSE 65; TEMP 97.5
[2024-04-11] MEDS ORDERED: SACUBITRIL/VALSARTAN 49 MG-51 MG TABLET PO SCH (21:00)
== END 2024-04-11 16:32 | disposition home or self-care (01) | DRG 174 ==
LOC: EC 17:45 → INTOOBSV 22:13 → 3SCARD 22:13 → OBSVTOIN 22:14 → 3SCARD 04-08 06:10
PROVIDERS: ADMIT Internal Medicine; ATTEND Internal Medicine
PROC: B2111ZZ Fluoroscopy of Multiple Coronary Arteries using Low Osmolar Contrast (ICD-10-PCS; 2024-04-08)
PROC: 4A023N7 Measurement of Cardiac Sampling and Pressure, Left Heart, Percutaneous Approach (ICD-10-PCS; 2024-04-08)
PROC: B241ZZ3 Ultrasonography of Multiple Coronary Arteries, Intravascular (ICD-10-PCS; 2024-04-10)
PROC: 027034Z Dilation of Coronary Artery, One Artery with Drug-eluting Intraluminal Device, Percutaneous Approach (ICD-10-PCS; principal; 2024-04-10 07:30)
DX: I21.3 ST elevation (STEMI) myocardial infarction of unspecified site (principal); I25.5 Ischemic cardiomyopathy; I25.10 Atherosclerotic heart disease of native coronary artery without angina pectoris; E78.5 Hyperlipidemia, unspecified; I11.0 Hypertensive heart disease with heart failure; I50.22 Chronic systolic (congestive) heart failure; Z79.4 Long term (current) use of insulin; G47.33 Obstructive sleep apnea (adult) (pediatric); E66.3 Overweight; F32.A Depression, unspecified; F41.9 Anxiety disorder, unspecified; Z68.35 Body mass index [BMI] 35.0-35.9, adult; G89.29 Other chronic pain; I25.2 Old myocardial infarction; Z91.199 Patient's noncompliance with other medical treatment and regimen due to unspecified reason; Z89.511 Acquired absence of right leg below knee; Z95.810 Presence of automatic (implantable) cardiac defibrillator; Z79.01 Long term (current) use of anticoagulants; Z66 Do not resuscitate; Z79.02 Long term (current) use of antithrombotics/antiplatelets; Z79.82 Long term (current) use of aspirin; Z79.84 Long term (current) use of oral hypoglycemic drugs; Z79.899 Other long term (current) drug therapy; Z82.49 Family history of ischemic heart disease and other diseases of the circulatory system
CPT/HCPCS: 36415; 71046; 80048; 80053; 80061; 83036; 83690; 83721; 83735; 84484; 85025; 85610; 85730; 92920; 92921; 92978; 93005; 93458; 96365; 96366; 96375; 96376; 99291

== ENCOUNTER 2024-04-28 15:13 | Inpatient (IN) | payer OTHER ==
--- NOTE | 2024-04-28 15:37 | ED ---
Chest Pain HPI - General Source: patient, RN notes reviewed Mode of arrival: ambulatory Limitations: no limitations <Anahi Graham - Last Filed: 04/28/24 15:36> - General Source: patient, RN notes reviewed, old records reviewed Mode of arrival: ambulatory Limitations: no limitations - History of Present Illness MD Complaint: chest pain -: minutes(s) (30) Onset: during rest Pain Location: left chest Severity: moderate Severity scale (1-10): 7 Quality: tightness, heaviness Consistency: constant Improves With: nothing Worsens With: nothing Anginal Symptoms: dyspnea Other Symptoms: palpitations Treatments Prior to Arrival: none <Severino Lance - Last Filed: 05/02/24 21:54> - General Chief Complaint: Chest Pain Stated Complaint: CP, DEANNA, L side pain Time Seen by Provider: 04/28/24 15:36 - History of Present Illness Initial Comments: Quick note: 44-year-old male presented the ER for evaluation of chest discomfort. Patient has a known cardiac history with stent placement. He reports an hour and a half prior to arrival he started to experience chest discomfort along with shortness of breath. He admits to dizziness and nausea. Patient did take 3 nitro approximately 30 minutes prior to arrival with no relief. (Anahi Graham) This is a 44-year-old male to the ER for chest pain. Patient has known significant CAD with prior stents recent stent placement now with severe chest pain starting tonight 30 minutes prior to arrival (Severino Lance) - Related Data Home Medications Medication Instructions Recorded Confirmed Atorvastatin [Lipitor] 80 mg PO HS 10/13/21 04/28/24 Empagliflozin [Jardiance] 25 mg PO DAILY 10/13/21 04/28/24 Insulin NPH Hum/Reg Insulin Hm 60 unit SQ BID 12/07/21 04/28/24 [humuLIN 70/30 Kwikpen] Digoxin [Digitek] 250 mcg PO DAILY 03/11/24 04/28/24 Fenofibrate Nanocrystallized 145 mg PO DAILY 03/11/24 04/28/24 [Fenofibrate] Ranolazine [Ranexa] 1,000 mg PO BID 03/11/24 04/28/24 Rivaroxaban [Xarelto] 2.5 mg PO BID 03/11/24 04/28/24 Semaglutide [Ozempic] 1 mg SQ TH 03/11/24 04/28/24 Metoprolol Succinate (ER) [Toprol 200 mg PO DAILY 04/08/24 04/28/24 XL] Sacubitril/Valsartan [Entresto 49 1 tab PO BID 04/28/24 04/28/24 mg-51 mg Tablet] Previous Rx's Medication Instructions Recorded Aspirin 81 mg PO DAILY #30 07/15/21 Nitroglycerin Sl Tabs [Nitrostat] 0.4 mg SUBLINGUAL Q5M PRN #30 tab 07/15/21 Lidocaine 4% Patch 1 patch TOPICAL DAILY 30 Days #30 03/13/24 patch Naproxen [Naprosyn] 250 mg PO TID PRN #12 tab 03/13/24 Ticagrelor [Brilinta] 90 mg PO BID #60 tab 03/26/24 oxyCODONE HCL/ACETAMINOPHEN 1 tab PO Q6HR PRN 3 Days #12 tab 03/26/24 [Percocet 5-325 mg] Ezetimibe [Zetia] 10 mg PO DAILY #90 tab 04/11/24 Mag Hydrox/Al Hydrox/Simeth 30 ml PO Q4HR PRN ml 04/11/24 [Maalox] Spironolactone [Aldactone] 12.5 mg PO DAILY #30 tablet 04/11/24 Colchicine [Colcrys] 0.6 mg PO DAILY #30 each 05/02/24 Isosorbide Mononitrate ER [Imdur] 120 mg PO DAILY #30 tab 05/02/24 Allergies Allergy/AdvReac Type Severity Reaction Status Date / Time Penicillins Allergy Unknown Verified 04/28/24 16:35 Childhood Review of Systems ROS Other: All systems not noted in ROS Statement are negative. <Anahi Graham - Last Filed: 04/28/24 15:36> ROS Other: All systems not noted in ROS Statement are negative. <Severino Lance - Last Filed: 05/02/24 21:54> ROS Statement: Those systems with pertinent positive or pertinent negative responses have been documented in the HPI. EKG Findings - EKG Comments: EKG Findings:: EKG is sinus 91 OK 188 QRS 133 QTc 408 - EKG Results: EKG: interpreted by ERMD <Severino Lance - Last Filed: 05/02/24 21:54> Past Medical History Past Medical History: Coronary Artery Disease (CAD), Chest Pain / Angina, Heart Failure, Diabetes Mellitus, Hyperlipidemia, Hypertension, Myocardial Infarction ([place]), Sleep Apnea/CPAP/BIPAP, Syncope Additional Past Medical History / Comment(s): AICD. IDDM type II. Neuropathy bilateral feet. 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 Migraines. Chronic back pain. R BKA (done 2023). Last Myocardial Infarction Date:: 2015 History of Any Multi-Drug Resistant Organisms: None Reported Past Surgical History: AICD, Heart Catheterization, Heart Catheterization With Stent, Orthopedic Surgery Additional Past Surgical History / Comment(s): 10/27/12 AICD, DFTs, PCI with 2 stents, R BKA. Past Anesthesia/Blood Transfusion Reactions: No Reported Reaction Date of Last Stent Placement:: 02/03/16 Type of Cardiac Device: AICD Device Placement Date:: 2012 Past Psychological History: Anxiety, Depression Smoking Status: Never smoker Past Alcohol Use History: None Reported Past Drug Use History: None Reported - Past Family History Mother Family Medical History: No Reported History Additional Family Medical History / Comment(s): Mother is healthy Brother(s) Family Medical History: Myocardial Infarction ([place]) Additional Family Medical History / Comment(s): Brother of a [place] at the age of 35yrs. Father Family Medical History: Liver Disease Additional Family Medical History / Comment(s): Father when pt was 19 yrs old from liver disease. He was an alcoholic. <Anahi Graham - Last Filed: 04/28/24 15:36> - Past Family History Sister(s) Additional Family Medical History / Comment(s): Huntings disease <Severino Lance - Last Filed: 05/02/24 21:54> General Exam Limitations: no limitations <Anahi Graham - Last Filed: 04/28/24 15:36> General appearance: alert, in no apparent distress Head exam: Present: atraumatic, normocephalic, normal inspection Eye exam: Present: normal appearance, PERRL, EOMI. Absent: scleral icterus, conjunctival injection, periorbital swelling ENT exam: Present: normal exam, mucous membranes moist Neck exam: Present: normal inspection. Absent: tenderness, meningismus, lymphadenopathy Respiratory exam: Present: normal lung sounds bilaterally. Absent: respiratory distress, wheezes, rales, rhonchi, stridor Cardiovascular Exam: Present: regular rate, normal rhythm, normal heart sounds. Absent: systolic murmur, diastolic murmur, rubs, gallop, clicks GI/Abdominal exam: Present: soft, normal bowel sounds. Absent: distended, tenderness, guarding, rebound, rigid Extremities exam: Present: normal inspection, full ROM, normal capillary refill. Absent: tenderness, pedal edema, joint swelling, calf tenderness Back exam: Present: normal inspection Neurological exam: Present: alert, oriented X3, CN II-XII intact Psychiatric exam: Present: normal affect, normal mood Skin exam: Present: warm, dry, intact, normal color. Absent: rash <Severino Lance - Last Filed: 05/02/24 21:54> - General Exam Comments Initial Comments: Visual Physical Exam Vital signs reviewed General: Well-appearing, nontoxic, no acute distress. Head: Normocephalic, atraumatic Eyes: PERRLA, EOMI ENT: Airway patent Chest: Nonlabored breathing Skin: No visual rash, normal skin tone Neuro: Alert and oriented 3 Musculoskeletal: No gross abnormalities (Anahi Graham) Course <Severino Lance - Last Filed: 05/02/24 21:54> Vital Signs 04/28/24 04/28/24 04/28/24 15:23 16:36 16:49 Temperature 98.4 F 98.6 F Pulse Rate 94 83 Pulse Rate [ 80 Rent Collector ] Respiratory 20 20 Rate Blood Pressure 147/85 141/98 O2 Sat by Pulse 99 96 Oximetry 04/28/24 04/28/24 04/29/24 18:10 23:00 03:00 Temperature Pulse Rate 96 74 78 Pulse Rate [ Rent Collector ] Respiratory 18 18 18 Rate Blood Pressure 141/98 146/93 119/82 O2 Sat by Pulse 96 98 95 Oximetry 04/29/24 04/29/24 04/29/24 04:16 05:24 05:44 Temperature Pulse Rate 88 88 80 Pulse Rate [ Rent Collector ] Respiratory 18 18 18 Rate Blood Pressure 121/76 105/67 110/73 O2 Sat by Pulse 95 95 98 Oximetry 04/29/24 04/29/24 04/29/24 07:26 08:00 10:14 Temperature 97.4 F L Pulse Rate 80 Pulse Rate [ Rent Collector ] Respiratory 18 Rate Blood Pressure 108/72 O2 Sat by Pulse 93 L 95 Oximetry - Reevaluation(s) Reevaluation #1: 04/28/24 16:58 Medical records reviewed (Severino Lance) Reevaluation #2: 04/28/24 16:58 Patient symptoms persistent still with chest pain does not feel comfortable with discharge (Severino Lance) Reevaluation #3: 04/28/24 16:58 Patient informed of results questions answered (Severino Lance) Reevaluation #4: Was pt. sent in by a medical professional or institution ([facility], [facility], urgent care, hospital, or alf...) When possible be specific @ -no Did you speak to anyone other than the patient for history (EMS, parent, family, police, friend...)? What history was obtained from this source @ -no Did you review nursing and triage notes (agree or disagree)? Why? @ -agree Are old charts reviewed (outside hosp., previous admission, EMS record, old EKG, old radiological studies, urgent care reports/EKG's, alf records)? Report findings @ -yes Differential Diagnosis (chest pain, altered mental status, abdominal pain women, abdominal pain men, vaginal bleeding, weakness, fever, dyspnea, syncope, headache, dizziness, GI bleed, back pain, seizure, CVA, palpatations, mental health, musculoskeletal)? @ -prior EKG interpreted by me (3pts min.). @ -yes X-rays interpreted by me (1pt min.). @ -yes negative for acute disease CT interpreted by me (1pt min.). @ -no U/S interpreted by me (1pt. min.). @ -no What testing was considered but not performed or refused? (CT, X-rays, U/S, labs)? Why? @ -none What meds were considered but not given or refused? Why? @ -none Did you discuss the management of the patient with other professionals (professionals i.e. [facility], [facility], lab, RT, psych nurse, social insurance administrator, supervisor order takers, teacher, special officer, counseling case manager)? Give summary @ -no Was smoking cessation discussed for >3mins.? @ -no Was critical care preformed (if so, how long)? @ -yes31 Were there social determinants of health that impacted care today? How? (Homelessness, low income, unemployed, alcoholism, drug addiction, transportation, low edu. Level, literacy, decrease access to med. care, [facility], rehab)? @ -none Was there de-escalation of care discussed even if they declined (Discuss DNR or withdrawal of care, Hospice)? DNR status @ -no What co-morbidities impacted this encounter? (DM, HTN, Smoking, COPD, CAD, Cancer, CVA, ARF, Chemo, Hep., AIDS, mental health diagnosis, sleep apnea, morbid obesity)? @ -none Was patient admitted / discharged? Hospital course, mention meds given and route, prescriptions, significant lab abnormalities, going to OR and other pertinent info. @ - 44 male with significant coronary artery disease and stenting coming in for chest pain today you admitted for unstable angina Admitted non-STEMI unstable angina chest pain Undiagnosed new problem with uncertain prognosis? @ -no Drug Therapy requiring intensive monitoring for toxicity (Heparin, Nitro, Insulin, Cardizem)? @ -no Were any procedures done? @ -no Diagnosis/symptom? @ - Acute, or Chronic, or Acute on Chronic? @ -Acute Uncomplicated (without systemic symptoms) or Complicated (systemic symptoms)? @ -Complicated Side effects of treatment? @ -no Exacerbation, Progression, or Severe Exacerbation? @ -exacerbation Poses a threat to life or bodily function? How? (Chest pain, [place], [place], pneumonia, PE, COPD, DKA, ARF, appy, cholecystitis, CVA, Diverticulitis, Homicidal, Suicidal, threat to staff... and all critical care pts) @ -yes with chest pain (Severino Lance) Reevaluation #5: Differential Chest Pain: Stable Angina, Unstable Angina, STEMI, NSTEMI Aortic Dissection, Pneumothorax, Musculoskeletal, Esophageal Spasm GERD, Cholecystitis, Pancreatitis, Zoster, this is not meant to be an all-inclusive list. (Severino Lance) - Consultations Consultation #1: Spoke with sound who agrees to admit this patient (Severino Lance) Chest Pain MDM <Stariha,Anahi - Last Filed: 04/28/24 15:36> <Severino Lance - Last Filed: 05/02/24 21:54> - MDM I performed the quick note portion of this chart. Electronically signed by Anahi Graham PA-C (Anahi Graham) 44 male with significant coronary artery disease and stenting coming in for chest pain today you admitted for unstable angina (Severino Lance) Critical Care Time Critical Care Time: Yes Total Critical Care Time: 31 <Severino Lance - Last Filed: 05/02/24 21:54> Disposition <Anahi Graham - Last Filed: 04/28/24 15:36> Is patient prescribed a controlled substance at d/c from ED?: No Time of Disposition: 17:00 <Severino Lance - Last Filed: 05/02/24 21:54> Clinical Impression: Chest pain, Unstable angina pectoris Disposition: ADMITTED IP TO THIS [facility] Condition: Fair
[2024-04-28 15:54] LABS: Basophils # (A) 0.1 k/uL (0-0.2); Basophils % (A) 1 %; Eosinophils # (A) 0.2 k/uL (0-0.7); Eosinophils % (A) 2 %; HCT 48.8 % (39.0-53.0); HGB 15.6 gm/dL (13.0-17.5); Hypochromasia Slight; Lymphocytes # (A) 1.4 k/uL (1.0-4.8); Lymphocytes % (A) 18 %; MCH 24.2 pg (25.0-35.0); MCHC 31.9 g/dL (31.0-37.0); MCV 75.8 fL (80.0-100.0); Mean Platelet Volume 6.9; Microcytosis Slight; Monocytes # (A) 0.4 k/uL (0-1.0); Monocytes % (A) 5 %; Neutrophils # (A) 5.6 k/uL (1.3-7.7); Neutrophils % (A) 71 %; Platelet Count 274 k/uL (150-450); RBC 6.44 m/uL (4.30-5.90); RDW 15.8 % (11.5-15.5); WBC 7.8 k/uL (3.8-10.6)
[2024-04-28 15:55] LABS: ALT 16 U/L (4-49); AST 17 U/L (17-59); African American GFR (CKD) >90 (>60 ml/min/1.73 sqM); Albumin 4.6 g/dL (3.5-5.0); Anion Gap 12 mmol/L; Blood Urea Nitrogen 18 mg/dL (9-20); Calcium 9.5 mg/dL (8.4-10.2); Carbon Dioxide 23 mmol/L (22-30); Chloride 105 mmol/L (98-107); Glucose 239 mg/dL (74-99); Magnesium 2.1 mg/dL (1.6-2.3); Non-African American GFR(CKD) >90 (>60 ml/min/1.73 sqM); Potassium 4.5 mmol/L (3.5-5.1); Sodium 140 mmol/L (137-145); Total Bilirubin 0.7 mg/dL (0.2-1.3)
[2024-04-28 15:56] LABS: Alkaline Phosphatase 101 U/L (38-126)
[2024-04-28 16:04] LABS: INR 0.9 (<1.2); Partial Thromboplastin Time 23.7 sec (22.0-30.0); Prothrombin Time 10.3 sec (10.0-12.5)
[2024-04-28] MEDS: HYDROmorphone 1 MG/ML 1 ML SYRINGE IVP STA (16:52)
--- NOTE | 2024-04-28 16:53 | XR ---
EXAMINATION TYPE: XR chest 2V DATE OF EXAM: 04/28/2024 4:33 PM COMPARISON: Chest radiographs from 04/07/2024 CLINICAL INDICATION: Male, 44 years old with history of Chest Pain; [facility] TECHNIQUE: XR chest 2V Frontal and lateral views of the chest. FINDINGS: Lungs/Pleura: There is no evidence of pleural effusion, focal consolidation, or pneumothorax. Pulmonary vascularity: Unremarkable. Heart/mediastinum: Cardiomediastinal silhouette is unremarkable. Single-lead cardiac conduction devic e overlying the left hemithorax with lead projecting over the right ventricle. Musculoskeletal: No acute osseous pathology. IMPRESSION: No acute cardiopulmonary disease/process. [facility], , 04/28/2024 4:51 PM
[2024-04-28] MEDS ORDERED: NALOXONE 0.4 MG/ML 1 ML VIAL IV PRN (16:56)
[2024-04-28] MEDS ORDERED: ONDANSETRON 4 MG/2 ML VIAL IVP PRN (16:56)
[2024-04-28] MEDS ORDERED: DEXTROSE 50% SYRINGE 50 ML IVP PRN ×2 (17:36)
--- NOTE | 2024-04-28 17:39 | P.HPIM ---
History of Present Illness H&P Date: 04/28/24 Patient is a 44-year-old male with a history of CAD with prior MIs and stent placement, recent PTCA of PDA and PLV branches of RCA on 04/10, HFrEF, EF 30 to 35% status post AICD, type 2 diabetes, hypertension, dyslipidemia, peripheral neuropathy, right BKA, SP on CPAP presenting with chest pain. He claims that this morning while he was in the bathroom he noticed sudden onset sharp chest pain which radiates to his left shoulder and causing some left arm pain/numbness. He also had associated shortness of breath. His pain is persistent. Some nausea, no vomiting, no fevers or chills, no abdominal pain, urinary or bowel complaints. [place] any cough, fevers, chills, recent travel hist ory or sick contacts. In the ED, temperature was 98.4, pulse 94, respiratory rate 20, blood pressure 147/85, saturating at 99% on room air. WBC 7.8, hemoglobin 15.6, platelet 274, creatinine 0.97, glucose 239, troponin 0.015. Chest x-ray independently interpreted, shows no acute process. EKG independently interpreted, shows sinus rhythm with PVCs, interventricular delay, no significant ST-T wave changes. Patient admitted for observation for continued chest pain. Cardiology consulted. Pertinent positives and negatives as discussed in HPI, a complete review of systems was performed and all other systems are negative. Patient seen and examined at bedside. Vital signs reviewed General: nontoxic, no distress, appears at stated age Derm: warm, dry Head: atraumatic, normocephalic, symmetric Eyes: EOMI, no lid lag, anicteric sclera, pupils equal round reactive to light ENT: Nose and ears atraumatic Neck: No thyromegaly, supple Mouth: no lip lesion, mucus membranes moist Cardiovascular: S1S2 reg, no murmur, no edema Lungs: clear to auscultation bilateral, no rhonchi, no rales, no wheeze, no accessory muscle use Abdominal: soft, nontender to palpation, no guarding, no appreciable organomegaly Ext: Right BKA Neuro: CN II-XII grossly intact Psych: Alert, oriented, appropriate affect Assessment/Plan: Active: Chest pain, rule out ACS Recent PTCA of PDA and PLV branches of RCA History of CAD with multiple prior MIs and stent placement Ischemic cardiomyopathy, EF 30 to 35% status post AICD Dyslipidemia Hypertension -Trend troponin -Continue telemetry monitoring -Cardiology consulted, pending recommendations -Continue aspirin 81 mg, Brilinta 90 mg twice daily, Xarelto 2.5 twice daily, atorvastatin 80 mg nightly, ezetimibe 10 mg daily, fenofibrate 145 daily -Ranexa 1000 mg twice daily -Continue Imdur 60 mg daily, metoprolol 200 mg daily, Entresto 49 mg - 51 mg, Aldactone 12.5 mg daily, Jardiance 25 mg daily -Patient also on digoxin? 250 mcg daily, continue -D-dimer ordered Insulin-dependent diabetes, A1c 10 Continue 70/30 insulin 60 twice daily -Sliding scale insulin, monitor for hypoglycemia Chronic: SP on CPAP Right BKA The patient is admitted with an anticipated less than 2 midnight stay as observation status for evaluation of chest pain. Surrogate decision-maker: Spouse CODE STATUS: Full code DVT prophylaxis: Xarelto Anticipated discharge date: Pending clinical course Anticipated discharge place: Pending clinical course A total of 65 minutes was spent on the care of this complex patient more than 50% of the time was spent in counseling and care coordination. Past Medical History Past Medical History: Coronary Artery Disease (CAD), Chest Pain / Angina, Heart Failure, Diabetes Mellitus, Hyperlipidemia, Hypertension, Myocardial Infarction (ND), Sleep Apnea/CPAP/BIPAP, Syncope Additional Past Medical History / Comment(s): AICD. IDDM type II. Neuropathy bilateral feet. 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 Migraines. Chronic back pain. R BKA (done 2023). Last Myocardial Infarction Date:: 2015 History of Any Multi-Drug Resistant Organisms: None Reported Past Surgical History: AICD, Heart Catheterization, Heart Catheterization With Stent, Orthopedic Surgery Additional Past Surgical History / Comment(s): 10/27/12 AICD, DFTs, PCI with 2 stents, R BKA. Past Anesthesia/Blood Transfusion Reactions: No Reported Reaction Date of Last Stent Placement:: 02/03/16 Type of Cardiac Device: AICD Device Placement Date:: 2012 Past Psychological History: Anxiety, Depression Smoking Status: Never smoker Past Alcohol Use History: None Reported Past Drug Use History: None Reported - Past Family History Mother Family Medical History: No Reported History Additional Family Medical History / Comment(s): Mother is healthy Brother(s) Family Medical History: Myocardial Infarction (ND) Additional Family Medical History / Comment(s): Brother of a ND at the age of 35yrs. Father Family Medical History: Liver Disease Additional Family Medical History / Comment(s): Father when pt was 19 yrs old from liver disease. He was an alcoholic. Medications and Allergies Home Medications Medication Instructions Recorded Confirmed Type Aspirin 81 mg PO DAILY #30 07/15/21 04/28/24 Rx Nitroglycerin Sl Tabs [Nitrostat] 0.4 mg SUBLINGUAL Q5M PRN #30 tab 07/15/21 04/28/24 Rx Atorvastatin [Lipitor] 80 mg PO HS 10/13/21 04/28/24 History Empagliflozin [Jardiance] 25 mg PO DAILY 10/13/21 04/28/24 History Insulin NPH Hum/Reg Insulin Hm 60 unit SQ BID 12/07/21 04/28/24 History [humuLIN 70/30 Kwikpen] Digoxin [Digitek] 250 mcg PO DAILY 03/11/24 04/28/24 History Fenofibrate Nanocrystallized 145 mg PO DAILY 03/11/24 04/28/24 History [Fenofibrate] Isosorbide Mononitrate ER [Imdur] 60 mg PO DAILY 03/11/24 04/28/24 History Ranolazine [Ranexa] 1,000 mg PO BID 03/11/24 04/28/24 History Rivaroxaban [Xarelto] 2.5 mg PO BID 03/11/24 04/28/24 History Semaglutide [Ozempic] 1 mg SQ TH 03/11/24 04/28/24 History Lidocaine 4% Patch 1 patch TOPICAL DAILY 30 Days #30 03/13/24 04/28/24 Rx patch Naproxen [Naprosyn] 250 mg PO TID PRN #12 tab 03/13/24 04/28/24 Rx Ticagrelor [Brilinta] 90 mg PO BID #60 tab 03/26/24 04/28/24 Rx oxyCODONE HCL/ACETAMINOPHEN 1 tab PO Q6HR PRN 3 Days #12 tab 03/26/24 04/28/24 Rx [Percocet 5-325 mg] Metoprolol Succinate (ER) [Toprol 200 mg PO DAILY 04/08/24 04/28/24 History XL] Ezetimibe [Zetia] 10 mg PO DAILY #90 tab 04/11/24 04/28/24 Rx Mag Hydrox/Al Hydrox/Simeth 30 ml PO Q4HR PRN ml 04/11/24 04/28/24 Rx [Maalox] Spironolactone [Aldactone] 12.5 mg PO DAILY #30 tablet 04/11/24 04/28/24 Rx Sacubitril/Valsartan [Entresto 49 1 tab PO BID 04/28/24 04/28/24 History mg-51 mg Tablet] Allergies Allergy/AdvReac Type Severity Reaction Status Date / Time Penicillins Allergy Unknown Verified 04/28/24 16:35 Childhood Physical Exam Vitals: Vital Signs Temp Pulse Pulse Resp BP Pulse Ox 04/28/24 16:49 98.6 F 83 20 141/98 96 04/28/24 16:36 80 04/28/24 15:23 98.4 F 94 20 147/85 99 Intake and Output 04/28/24 04/28/24 04/28/24 06:59 14:59 22:59 Other: Weight 120.202 kg Results CBC & Chem 7: 04/28/24 15:31 04/28/24 15:31 Labs: Abnormal Lab Results - Last 24 Hours (Table) 04/28/24 04/28/24 Range/Units 15:31 15:31 RBC 6.44 H (4.30-5.90) m/uL MCV 75.8 L (80.0-100.0) fL MCH 24.2 L (25.0-35.0) pg RDW 15.8 H (11.5-15.5) % Glucose 239 H (74-99) mg/dL
[2024-04-28] MEDS: SODIUM CHLORIDE 0.9% 1,000 ML IV SCH (17:55)
[2024-04-28 18:09] LABS: Glucose,Whole Blood 160 mg/dL (70-110)
[2024-04-28 19:53] LABS: Glucose,Whole Blood 214 mg/dL (70-110)
[2024-04-28] MEDS: INSULN ASP PRT/INSULIN ASPART 100 UNIT/ML 10 ML VIAL SQ SCH (20:32)
[2024-04-28] MEDS: SACUBITRIL/VALSARTAN 49 MG-51 MG TABLET PO SCH (20:32)
[2024-04-28] MEDS: TICAGRELOR 90 MG TAB PO SCH (20:32)
[2024-04-28] MEDS: INSULIN ASPART (NovoLOG) 100 UNIT/ML VIAL SQ SCH (20:32)
[2024-04-28] MEDS: ATORVASTATIN 80 MG TAB PO SCH (20:32)
[2024-04-28] MEDS: RANOLAZINE 500 MG TAB.ER.12H PO SCH (20:32)
[2024-04-28] MEDS: RIVAROXABAN 2.5 MG TABLET PO SCH (20:32)
[2024-04-28] MEDS: HYDROmorphone 1 MG/ML 1 ML SYRINGE IVP PRN (20:35)
[2024-04-28] MEDS: NITROGLYCERIN-D5W PMX 50 MG in DEXTROSE/WATER 1 250ML.BAG IV SCH (23:10)
[2024-04-28] MEDS: HEPARIN SOD,PORK IN 0.45% NACL 25,000 UNIT in 0.45% NACL 1 250ML.BAG IV SCH (23:11)
[2024-04-28] MEDS: HEPARIN SODIUM 1,000 UN/ML (10ML VL) IV ONE (23:14)
[2024-04-29 06:29] LABS: Basophils # (A) 0.1 k/uL (0-0.2); Basophils % (A) 1 %; Eosinophils # (A) 0.3 k/uL (0-0.7); Eosinophils % (A) 3 %; HCT 46.5 % (39.0-53.0); Hypochromasia Slight; Lymphocytes # (A) 2.4 k/uL (1.0-4.8); Lymphocytes % (A) 22 %; MCH 24.4 pg (25.0-35.0); MCHC 32.3 g/dL (31.0-37.0); MCV 75.5 fL (80.0-100.0); Mean Platelet Volume 6.9; Microcytosis Slight; Monocytes # (A) 0.7 k/uL (0-1.0); Monocytes % (A) 6 %; Neutrophils # (A) 7.3 k/uL (1.3-7.7); Neutrophils % (A) 67 %; Platelet Count 287 k/uL (150-450); RBC 6.16 m/uL (4.30-5.90); RDW 15.9 % (11.5-15.5); WBC 10.9 k/uL (3.8-10.6)
[2024-04-29 06:35] LABS: Partial Thromboplastin Time 27.9 sec (22.0-30.0); Prothrombin Time 10.6 sec (10.0-12.5)
[2024-04-29 06:49] LABS: ALT 15 U/L (4-49); AST 20 U/L (17-59); African American GFR (CKD) >90 (>60 ml/min/1.73 sqM); Albumin 3.8 g/dL (3.5-5.0); Alkaline Phosphatase 107 U/L (38-126); Anion Gap 9 mmol/L; Blood Urea Nitrogen 20 mg/dL (9-20); Calcium 8.9 mg/dL (8.4-10.2); Carbon Dioxide 21 mmol/L (22-30); Chloride 107 mmol/L (98-107); Glucose 151 mg/dL (74-99); Lipase 230 U/L (23-300); Magnesium 2.1 mg/dL (1.6-2.3); Non-African American GFR(CKD) >90 (>60 ml/min/1.73 sqM); Phosphorus 4.5 mg/dL (2.5-4.5); Potassium 4.1 mmol/L (3.5-5.1); Sodium 137 mmol/L (137-145); Total Bilirubin 0.5 mg/dL (0.2-1.3); Total Protein 6.8 g/dL (6.3-8.2)
[2024-04-29] MEDS: HEPARIN SODIUM 1,000 UN/ML (10ML VL) IV PRN (07:01)
[2024-04-29 07:24] LABS: Glucose,Whole Blood 169 mg/dL (70-110)
[2024-04-29] MEDS ORDERED: ACETAMINOPHEN TAB 325 MG TAB PO PRN (08:33)
[2024-04-29] MEDS ORDERED: NITROGLYCERIN SL TABS 0.4 MG TAB SUBLINGUAL PRN ×2 (08:35→11:27)
[2024-04-29] MEDS ORDERED: ALPRAZolam 0.5 MG TAB PO PRN (08:35)
[2024-04-29] MEDS ORDERED: ALPRAZolam 0.25 MG TAB PO PRN (08:35)
[2024-04-29] MEDS: DIGOXIN 250 MCG TAB PO SCH (08:41)
[2024-04-29] MEDS: SPIRONOLACTONE 25 MG TAB PO SCH (08:41)
[2024-04-29] MEDS: DAPAGLIFLOZIN PROPANEDIOL 10 MG TABLET PO SCH (08:41)
[2024-04-29] MEDS: EZETIMIBE 10 MG TAB PO SCH (08:42)
[2024-04-29] MEDS: FENOFIBRATE 160 MG TAB PO SCH (08:42)
[2024-04-29] MEDS: ISOSORBIDE MONONITRATE ER 60 MG TAB.ER.24H PO SCH (08:42)
[2024-04-29] MEDS: ASPIRIN 81 MG PO SCH (08:42)
[2024-04-29] MEDS: METOPROLOL SUCCINATE (ER) 100 MG TAB.ER.24H PO SCH (08:42)
[2024-04-29] MEDS: ATORVASTATIN 80 MG TAB PO STA (08:49)
[2024-04-29] MEDS: ASPIRIN 325 MG TAB PO STA (08:49)
[2024-04-29] MEDS: SODIUM CHLORIDE 0.9% 1,000 ML in EMPTY BAG 1 BAG IV SCH ×2 (09:03→12:44)
--- NOTE | 2024-04-29 09:56 | P.CRDCN ---
History of Present Illness History of present illness: HISTORY OF PRESENT ILLNESS: This is a 44-year-old male with a past medical history significant for coronary artery disease with previous stenting, ischemic cardiomyopathy, AICD implantati on, hypertension, obstructive sleep apnea, hyperlipidemia, diabetes, and right BKA. Patient follows in the office with Dr. Hernandez. We have been asked to see the patient in consultation for non-STEMI. Patient examined at the bedside in the emergency room. Patient states yesterday he was walking out of the bathroom when he began to have chest discomfort in the middle of his chest. He also reports having some shortness of breath and abdominal pain. He took some nitro with minimal relief. He states his pain was about 9 out of 10 when he presented to the emergency room. Patient was found to have elevated troponins and was started on IV heparin and IV nitro. He continues to report chest pain this morning and is rating it 8 out of 10. He reports he has been compliant with his medications on an outpatient basis DIAGNOSTICS: - EKG reveals sinus mechanism with IVCD. No signs of acute ischemia. - Chest xray negative for acute process. - Laboratory data: WBC 10.9. Hemoglobin 15.0. Platelet count 287. Sodium 137. Potassium 4.1. BUN 20. Creatinine 0.89. Troponin 0.015. 0.663. 1.990 - Current home cardiac medications include aspirin 81 mg daily, Lipitor 80 mg at night, digoxin 250mcg daily, Jardiance 25 mg daily, Zetia 10 mg daily, fenofibrate 145 mg daily, Imdur 60 mg daily, metoprolol succinate 200 mg daily, Ranexa 1000 mg twice a day, Xarelto 2.5 mg twice a day, Entresto 49-51 mg twice a day, Aldactone 12.5 mg daily, and Brilinta 90 mg twice a day. - Most recent echocardiogram obtained in February 2024 revealing ejection fraction 30 to 35%, moderate concentric LVH, mild MR - Cardiac catheterization history: 04/10/2024 with balloon angioplasty of the PDA and PLV branches of the RCA REVIEW OF SYSTEMS: At the time of my exam: CONSTITUTIONAL: Denies fever or chills. HEENT: Denies blurred vision, vision changes, or eye pain. Denies hemoptysis CARDIOVASCULAR: Denies chest pain. Denies orthopnea. Denies PND. Denies palpitations RESPIRATORY: Denies shortness of breath. GASTROINTESTINAL: Denies abdominal pain. Denies nausea or vomiting. HEMATOLOGIC: Denies bleeding disorders. GENITOURINARY: Denies any blood in urine. SKIN: Denies pruitis. Denies rash. PHYSICAL EXAM: VITAL SIGNS: Reviewed. GENERAL: Well-developed in no acute distress. HEENT: Head is normocephalic. Pupils are equal, round. Sclerae anicteric. Mucous membranes of the mouth are moist. Neck supple. No JVD or thyromegaly LUNGS: Respirations even and unlabored. Lungs essentially clear to auscultation bilaterally. HEART: Regular rate and rhythm. S1 and S2 heard. ABDOMEN: Soft. Nondistended. Nontender. EXTREMITIES: Normal range of motion. No clubbing or cyanosis. Peripheral pulses intact. Right BKA NEUROLOGIC: Awake and alert. Oriented x 3. ASSESSMENT: Non-STEMI Coronary artery disease with recent balloon angioplasty of the PDA and PLV branches of the RCA, 04/10/2024 History of stenting in the mid and distal LAD Known [employer] of the RCA Known [employer] of the left circumflex Ischemic cardiomyopathy, 30 to 35% History of AICD implantation Hypertension Hyperlipidemia Obstructive sleep apnea Diabetes History of right BKA PLAN: Continue IV heparin Continue IV nitro Hold Xarelto Continue additional cardiac medications Patient to undergo cardiac catheterization today with Dr. Hernandez Further recommendations pending patient course Nurse practitioner note has been reviewed by physician. Signing provider agrees with the documented findings, assessment, and plan of care documented by [employer] as a scribe. Past Medical History Past Medical History: Coronary Artery Disease (CAD), Chest Pain / Angina, Heart Failure, Diabetes Mellitus, Hyperlipidemia, Hypertension, Myocardial Infarction (CO), Sleep Apnea/CPAP/BIPAP, Syncope Additional Past Medical History / Comment(s): AICD. IDDM type II. Neuropathy bilateral feet. 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 Migraines. Chronic back pain. R BKA (done 2023). Last Myocardial Infarction Date:: 2023 History of Any Multi-Drug Resistant Organisms: None Reported Past Surgical History: AICD, Heart Catheterization, Heart Catheterization With Stent, Orthopedic Surgery Additional Past Surgical History / Comment(s): 10/27/12 AICD, DFTs, PCI with 2 stents, R BKA. Past Anesthesia/Blood Transfusion Reactions: No Reported Reaction Date of Last Stent Placement:: 02/03/16 Type of Cardiac Device: AICD Device Placement Date:: 2012 Smoking Status: Former smoker - Past Family History Mother Family Medical History: No Reported History Additional Family Medical History / Comment(s): Mother is healthy Brother(s) Family Medical History: Myocardial Infarction (CO) Additional Family Medical History / Comment(s): Brother of a CO at the age of 35yrs. Father Family Medical History: Liver Disease Additional Family Medical History / Comment(s): Father when pt was 19 yrs old from liver disease. He was an alcoholic. Hunting disease runs in family, sisters had it and mother. Sister(s) Additional Family Medical History / Comment(s): Huntings disease Medications and Allergies Home Medications Medication Instructions Recorded Confirmed Type Aspirin 81 mg PO DAILY #30 07/15/21 04/28/24 Rx Nitroglycerin Sl Tabs [Nitrostat] 0.4 mg SUBLINGUAL Q5M PRN #30 tab 07/15/21 04/28/24 Rx Atorvastatin [Lipitor] 80 mg PO HS 10/13/21 04/28/24 History Empagliflozin [Jardiance] 25 mg PO DAILY 10/13/21 04/28/24 History Insulin NPH Hum/Reg Insulin Hm 60 unit SQ BID 12/07/21 04/28/24 History [humuLIN 70/30 Kwikpen] Digoxin [Digitek] 250 mcg PO DAILY 03/11/24 04/28/24 History Fenofibrate Nanocrystallized 145 mg PO DAILY 03/11/24 04/28/24 History [Fenofibrate] Isosorbide Mononitrate ER [Imdur] 60 mg PO DAILY 03/11/24 04/28/24 History Ranolazine [Ranexa] 1,000 mg PO BID 03/11/24 04/28/24 History Rivaroxaban [Xarelto] 2.5 mg PO BID 03/11/24 04/28/24 History Semaglutide [Ozempic] 1 mg SQ TH 03/11/24 04/28/24 History Lidocaine 4% Patch 1 patch TOPICAL DAILY 30 Days #30 03/13/24 04/28/24 Rx patch Naproxen [Naprosyn] 250 mg PO TID PRN #12 tab 03/13/24 04/28/24 Rx Ticagrelor [Brilinta] 90 mg PO BID #60 tab 03/26/24 04/28/24 Rx oxyCODONE HCL/ACETAMINOPHEN 1 tab PO Q6HR PRN 3 Days #12 tab 03/26/24 04/28/24 Rx [Percocet 5-325 mg] Metoprolol Succinate (ER) [Toprol 200 mg PO DAILY 04/08/24 04/28/24 History XL] Ezetimibe [Zetia] 10 mg PO DAILY #90 tab 04/11/24 04/28/24 Rx Mag Hydrox/Al Hydrox/Simeth 30 ml PO Q4HR PRN ml 04/11/24 04/28/24 Rx [Maalox] Spironolactone [Aldactone] 12.5 mg PO DAILY #30 tablet 04/11/24 04/28/24 Rx Sacubitril/Valsartan [Entresto 49 1 tab PO BID 04/28/24 04/28/24 History mg-51 mg Tablet] Allergies Allergy/AdvReac Type Severity Reaction Status Date / Time Penicillins Allergy Unknown Verified 04/28/24 16:35 Childhood Physical Exam Vitals: Vital Signs Temp Pulse Pulse Resp BP Pulse Ox 04/29/24 08:00 93 L 04/29/24 07:26 97.4 F L 04/29/24 05:44 80 18 110/73 98 04/29/24 05:24 88 18 105/67 95 04/29/24 04:16 88 18 121/76 95 04/29/24 03:00 78 18 119/82 95 04/28/24 23:00 74 18 146/93 98 04/28/24 18:10 96 18 141/98 96 04/28/24 16:49 98.6 F 83 20 141/98 96 04/28/24 16:36 80 04/28/24 15:23 98.4 F 94 20 147/85 99 Intake and Output 04/28/24 04/29/24 04/29/24 22:59 06:59 14:59 Intake Total 79.742 42.125 Balance 79.742 42.125 Intake: Intake, IV Titration 79.742 42.125 Amount Heparin Sod,Pork in 0.45% 77.667 NaCl 25,000 unit In 0.45 % NaCl 1 250ml.bag @ 8. 319 UNITS/KG/HR 10 mls/hr IV .Q24H [facility] Rx#: [id number] Nitroglycerin-D5w Pmx 50 2.075 42.125 mg In Dextrose/Water 1 250ml.bag @ 5 MCG/MIN 1.5 mls/hr IV .Q24H [facility] Rx#: [id number] Other: Weight 120.202 kg Results 04/29/24 05:38 04/29/24 05:38 Cardiac Enzymes 04/28/24 04/28/24 04/28/24 Range/Units 15:31 15:31 17:39 AST 17 (17-59) U/L Troponin I 0.015 0.663 H* (0.000-0.034) ng/mL 04/28/24 04/29/24 Range/Units 21:09 05:38 AST 20 (17-59) U/L Troponin I 1.990 H* (0.000-0.034) ng/mL Coagulation 04/28/24 04/29/24 Range/Units 15:31 05:38 PT 10.3 10.6 (10.0-12.5) sec APTT 23.7 27.9 (22.0-30.0) sec CBC 04/28/24 04/29/24 Range/Units 15:31 05:38 WBC 7.8 10.9 H (3.8-10.6) k/uL RBC 6.44 H 6.16 H (4.30-5.90) m/uL Hgb 15.6 15.0 (13.0-17.5) gm/dL Hct 48.8 46.5 (39.0-53.0) % Plt Count 274 287 (150-450) k/uL Comprehensive Metabolic Panel 04/28/24 04/29/24 Range/Units 15:31 05:38 Sodium 140 137 (137-145) mmol/L Potassium 4.5 4.1 (3.5-5.1) mmol/L Chloride 105 107 (98-107) mmol/L Carbon Dioxide 23 21 L (22-30) mmol/L BUN 18 20 (9-20) mg/dL Creatinine 0.97 0.89 (0.66-1.25) mg/dL Glucose 239 H 151 H (74-99) mg/dL Calcium 9.5 8.9 (8.4-10.2) mg/dL AST 17 20 (17-59) U/L ALT 16 15 (4-49) U/L Alkaline Phosphatase 101 107 (38-126) U/L Total Protein 8.0 6.8 (6.3-8.2) g/dL Albumin 4.6 3.8 (3.5-5.0) g/dL Current Medications Generic Name Dose Route Start Last Admin Trade Name Freq PRN Reason Stop Dose Admin Acetaminophen 650 mg 04/29/24 08:33 Acetaminophen Tab 325 Mg Tab PO Q4HR PRN Fever and/ or Pain Alprazolam 0.25 mg 04/29/24 08:35 Alprazolam 0.25 Mg Tab PO Q6HR PRN Mild Anxiety Alprazolam 0.5 mg 04/29/24 08:35 Alprazolam 0.5 Mg Tab PO Q6HR PRN Moderate Anxiety Aspirin 81 mg 04/29/24 09:00 04/29/24 08:42 Aspirin 81 Mg PO 81 mg DAILY KSENIA Administration Atorvastatin Calcium 80 mg 04/28/24 21:00 04/28/24 20:32 Atorvastatin 80 Mg Tab PO 80 mg HS KSENIA Administration Dapagliflozin 10 mg 04/29/24 09:00 04/29/24 08:41 Dapagliflozin Propanediol 10 Mg Tablet PO 10 mg DAILY KSENIA Administration Dextrose/Water 25 ml 04/28/24 17:36 Dextrose 50% Syringe 50 Ml IVP PER PROTOCOL PRN Hypoglycemia Protocol Dextrose/Water 50 ml 04/28/24 17:36 Dextrose 50% Syringe 50 Ml IVP PER PROTOCOL PRN Hypoglycemia Protocol Digoxin 250 mcg 04/29/24 09:00 04/29/24 08:41 Digoxin 250 Mcg Tab PO 250 mcg DAILY KSENIA Administration Ezetimibe 10 mg 04/29/24 09:00 04/29/24 08:42 Ezetimibe 10 Mg Tab PO 10 mg DAILY KSENIA Administration Fenofibrate 160 mg 04/29/24 09:00 04/29/24 08:42 Fenofibrate 160 Mg Tab PO 160 mg DAILY KSENIA Administration Heparin Sodium (Porcine) 0 unit 04/28/24 22:44 04/29/24 07:01 Heparin Sodium 1,000 Un/Ml (10ml Vl) IV 4,000 unit PER PROTOCOL PRN Administration Low PTT Protocol Hydromorphone HCl 1 mg 04/28/24 16:56 04/29/24 08:42 Hydromorphone 1 Mg/Ml 1 Ml Syringe IVP 1 mg Q3HR PRN Administration Severe Pain (Scale 7 to 10) Sodium Chloride 1,000 mls @ 20 mls/hr 04/28/24 17:00 04/28/24 17:55 Saline 0.9% IV 20 mls/hr .Q24H KSENIA Administration Heparin Sodium/Sodium Chloride 250 mls @ 10 mls/hr 04/28/24 22:45 04/29/24 06:57 25,000 unit/ Sodium Chloride IV 11.319 units/kg/hr .Q24H KSENIA 13.606 mls/hr Titration Protocol 8.319 UNITS/KG/HR Nitroglycerin/Dextrose 50 mg/ 250 mls @ 1.5 mls/hr 04/28/24 22:45 04/29/24 09:13 IV Solution IV 30 mcg/min .Q24H KSENIA 9 mls/hr Titration Protocol 5 MCG/MIN Heparin Sodium (Porcine) 10, 1,001 mls @ 999 mls/hr 04/30/24 07:00 000 unit/ Sodium Chloride IRRIGATION 04/30/24 23:00 ONCE PRN INTRA-OP Heparin Sodium (Porcine) 2,500 250.5 mls @ 250 mls/hr 04/30/24 07:00 unit/ Sodium Chloride IRRIGATION 04/30/24 23:00 ONCE PRN INTRA-OP Sodium Chloride 1,000 ml/ IV 1,000 mls @ 120.202 mls/hr 04/29/24 08:45 04/29/24 09:03 Solution IV 120.202 mls/hr .Q8H20M KSENIA Administration 1 ML/KG/HR Insulin Aspart 60 unit 04/28/24 21:00 04/29/24 09:35 Insuln Asp Prt/Insulin Aspart 100 Unit/Ml 10 Ml Vial SQ Not Given BID KSENIA Insulin Aspart 0 unit 04/28/24 21:00 04/29/24 07:29 Insulin Aspart (Novolog) 100 Unit/Ml Vial SQ 2 unit ACHS KSENIA Administration Protocol Isosorbide Mononitrate 60 mg 04/29/24 09:00 04/29/24 08:42 Isosorbide Mononitrate Er 60 Mg Tab.Er.24h PO 60 mg DAILY KSENIA Administration Metoprolol Succinate 200 mg 04/29/24 09:00 04/29/24 08:42 Metoprolol Succinate (Er) 100 Mg Tab.Er.24h PO 200 mg DAILY KSENIA Administration Naloxone HCl 0.2 mg 04/28/24 16:56 Naloxone 0.4 Mg/Ml 1 Ml Vial IV Q2M PRN Opioid Reversal Nitroglycerin 0.4 mg 04/28/24 17:21 Nitroglycerin Sl Tabs 0.4 Mg Tab SUBLINGUAL Q5M PRN Chest Pain Ondansetron HCl 4 mg 04/28/24 16:56 Ondansetron 4 Mg/2 Ml Vial IVP Q8HR PRN Nausea And Vomiting Ranolazine 1,000 mg 04/28/24 21:00 04/29/24 08:42 Ranolazine 500 Mg Tab.Er.12h PO 1,000 mg BID KSENIA Administration Sacubitril/Valsartan 1 each 04/28/24 21:00 04/29/24 08:41 Sacubitril/Valsartan 49 Mg-51 Mg Tablet PO 1 each BID KSENIA Administration Spironolactone 12.5 mg 04/29/24 09:00 04/29/24 08:41 Spironolactone 25 Mg Tab PO 12.5 mg DAILY KSENIA Administration Ticagrelor 90 mg 04/28/24 21:00 04/29/24 08:41 Ticagrelor 90 Mg Tab PO 90 mg BID KSENIA Administration Intake and Output 04/28/24 04/29/24 04/29/24 22:59 06:59 14:59 Intake Total 79.742 42.125 Balance 79.742 42.125 Intake: Intake, IV Titration 79.742 42.125 Amount Heparin Sod,Pork in 0.45% 77.667 NaCl 25,000 unit In 0.45 % NaCl 1 250ml.bag @ 8. 319 UNITS/KG/HR 10 mls/hr IV .Q24H [facility] Rx#: [id number] Nitroglycerin-D5w Pmx 50 2.075 42.125 mg In Dextrose/Water 1 250ml.bag @ 5 MCG/MIN 1.5 mls/hr IV .Q24H [facility] Rx#: [id number] Other: Weight 120.202 kg 04/29/24 05:38 04/29/24 05:38
[2024-04-29] MEDS: HEPARIN SODIUM,PORCINE (1 ML) 2,500 UNIT in SODIUM CHLORIDE 0.9% 250 ML IRRIGATION PRN (10:11)
[2024-04-29] MEDS: HEPARIN SODIUM,PORCINE 10,000 UNIT in SODIUM CHLORIDE 0.9% 1,000 ML IRRIGATION PRN (10:11)
[2024-04-29] MEDS: MIDAZOLAM 2 MG/2 ML VIAL IVP ONE (10:34)
[2024-04-29] MEDS: LIDOCAINE 1% INJ 10MG/ML (10 ML MDV) SQ ONE (10:34)
[2024-04-29] MEDS: VERAPAMIL SYRINGE (5 MG/10 ML) INTRAARTER ONE (10:36)
[2024-04-29] MEDS: HEPARIN SODIUM 1,000 UN/ML (10ML VL) IVP ONE (10:57)
[2024-04-29] MEDS: IOPAMIDOL-370 100ML BTL INJ ONE ×2 (11:20→11:27)
[2024-04-29] MEDS ORDERED: ATROPINE SULFATE 0.1 MG/ML 10ML SYRINGE IV PRN (11:27)
[2024-04-29] MEDS ORDERED: RX INFO: IV CONTRAST WAS GIVEN 1 EACH MISC MISCELLANE PRN (11:27)
[2024-04-29] MEDS ORDERED: ZOLPIDEM 5 MG TAB PO PRN (11:27)
[2024-04-29] MEDS ORDERED: MAG HYDROX/AL HYDROX/SIMETH 30 ML CUP PO PRN (11:27)
--- NOTE | 2024-04-29 11:34 | P.PCN ---
Date of Procedure: 04/29/24 Operative Findings: CARDIAC CATHETERIZATION AND PERCUTANEOUS CORONARY INTERVENTION PERFORMING PHYSICIAN: Damion Hernandez MD, [facility] PROCEDURE PERFORMED: 1. Selective right and left coronary angiogram 2. Left heart catheterization 3. Successful stenting of mid RCA and PLV branch of the RCA using 4.0 x 33 and 2.75 x 15 mm Xience KIERA with an excellent angiographic results 4. Adjunctive use of Dobler wire and IVUS and lithotripsy balloon 5. Ultrasound-guided access of the right radial art INDICATION: Acute non-ST ovation myocardial infarction in this 44-year-old gentleman who is known to have severe CAD with prior stenting of the RCA and LAD COMPLICATION: None APPROACH: Right radial artery LEVEL OF SEDATION: Moderate with the sedation time off 48 minutes PROCEDURE DESCRIPTION: After obtaining informed consent the patient was brought to the cardiac [employer] with right radial artery was cannulated using micropuncture technique under ultrasound guidance a micropuncture wire passed easily then I placed a 6 [place] 11 cm sheath at the right radial artery. 2 mg of verapamil intra-arterial and heparin IV was given with continuous ACT monitoring. Subsequently I did selective right and left coronary angiogram using JR4 and JL 3.5 catheters with left heart catheterization was performed using the JR4 catheter which crossed the aortic valve then I did pullback across the valve. After that I decided to an IFR of the RCA. After zeroing the Doppler wire and equalizing the Dobler wire and guiding catheter the RCA was engaged and subsequently we did an IFR and that came to be at 0.87. At that point I decided to intervene on the RCA. I did IVUS which showed a diameter around 4 mm with somewhat an expanded previous stent. Predilatation was performed initially using 3.5 mm balloon and subsequently 4 mm lithotripsy balloon before I deployed 4.0 x 33 mm stent where the stent was positioned under fluoroscopy guidance and deployed under fluoroscopic guidance and postdilated using 4 mm noncompliant balloon. After that an angiogram was performed and showed that there was a lesion involving the PLV branch of the RCA appears to be very focal. I did direct stenting of the lesion using 2.75 x 15 mm stent where the stent was positioned under fluoroscopy guidance and deployed under fluoroscopy guidance. After that an angiogram was performed and showed good angiographic results the procedure was completed with no complication SELECTIVE CORONARY ANGIOGRAM: The right coronary artery: Has intermediate to severe the lesion in the midportion documented to be flow- limiting by Doppler wire. Previous stent in the mid to distal RCA are patent. 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 I did perform PCI of the RCA as described above POSTPROCEDURE MANAGEMENT: 1. Dual antiplatelet therapy using aspirin and Brilinta for 12 month 2. Aggressive cholesterol control 3. Follow-up with the patient
--- NOTE | 2024-04-29 11:42 | P.PN ---
Subjective Progress Note Date: 04/29/24 Hospital Course: 44-year-old male with a history of CAD with prior MIs and stent placement, rec ent PTCA of PDA and PLV branches of RCA on 04/10, HFrEF, EF 30 to 35% status post AICD, type 2 diabetes, hypertension, dyslipidemia, peripheral neuropathy, right BKA, SP on CPAP presenting with chest pain. In the ED, temperature was 98.4, pulse 94, respiratory rate 20, blood pressure 147/85, saturating at 99% on room air. WBC 7.8, hemoglobin 15.6, platelet 274, creatinine 0.97, glucose 239, troponin 0.015. Chest x-ray independently interpreted, shows no acute process. EKG independently interpreted, shows sinus rhythm with PVCs, interventricular delay, no significant ST-T wave changes. Patient admitted for continued chest pain. Cardiology consulted. Troponin trended up, peaked at 1.99. Started on heparin drip. Patient underwent cardiac cath, successful stenting of mid RCA and PLV branch of the RCA. Subjective: Patient seen and examined at bedside. Still having chest pain but improved. Pertinent positives and negatives as discussed above, a complete review of systems was performed and all other systems are negative. Vitals Signs Reviewed. General: [nontoxic], [no distress], [appears at stated age] Derm: [warm], [dry] Head: [atraumatic], [normocephalic], [symmetric] Eyes: [EOMI], [no lid lag], [anicteric sclera] Mouth: [no lip lesion], [mucus membranes moist] Cardiovascular: [S1S2 reg], [no murmur] Lungs: [CTA bilateral], [no rhonchi, no rales] , [no accessory muscle use] Abdominal: [soft], [ nontender to palpation], [no guarding], [no appreciable organomegaly] Ext: [no gross muscle atrophy], [no edema], [no contractures] Neuro: [ CN II-XI grossly intact], [no focal neuro deficits] Psych: [Alert], [oriented], [appropriate affect] Data Reviewed Today: Pertinent Labs: WBC 10.9, hemoglobin 15, bicarb 21, creatinine 0.89, troponin peaked at 1.99, glucose 151 Imaging: No new imaging Assessment and Plan: Acute NSTEMI status post RCA and PLV stent History of CAD with multiple prior MIs and stent placement Ischemic cardiomyopathy, EF 30 to 35% status post AICD Dyslipidemia Hypertension -Telecommunications Support report reviewed -Was on heparin drip overnight -Continue aspirin 81 mg, Brilinta 90 mg twice daily, atorvastatin 80 mg nightly, ezetimibe 10 mg daily, fenofibrate 145 daily -Ranexa 1000 mg twice daily -Continue Imdur 60 mg daily, metoprolol 200 mg daily, Entresto 49 mg - 51 mg, Aldactone 12.5 mg daily, Jardiance 25 mg daily -Patient also on digoxin? 250 mcg daily, continue Insulin-dependent diabetes, A1c 10 Continue 70/30 insulin 60 units twice daily -Sliding scale insulin, monitor for hypoglycemia Chronic: SP on CPAP Right BKA DVT ppx: Patient on heparin drip perioperatively Code status: Full code Anticipated discharge place: Pending clinical course Anticipated discharge time: Pending clinical course Objective - Vital Signs Vital signs: Vital Signs Temp 97.4 F L 04/29/24 07:26 Pulse 80 04/29/24 10:14 Resp 18 04/29/24 10:14 BP 108/72 04/29/24 10:14 Pulse Ox 95 04/29/24 10:14 FiO2 Intake & Output 04/28/24 04/29/24 04/29/24 18:59 06:59 18:59 Intake Total 79.742 372.125 Balance 79.742 372.125 Weight 120.202 kg 120.202 kg Intake: IV 330 Intake, IV Titration 79.742 42.125 Amount Heparin Sod,Pork in 0.45% 77.667 NaCl 25,000 unit In 0.45 % NaCl 1 250ml.bag @ 8. 319 UNITS/KG/HR 10 mls/hr IV .Q24H [facility] Rx#: [id number] Nitroglycerin-D5w Pmx 50 2.075 42.125 mg In Dextrose/Water 1 250ml.bag @ 5 MCG/MIN 1.5 mls/hr IV .Q24H [facility] Rx#: [id number] - Labs CBC & Chem 7: 04/29/24 05:38 04/29/24 05:38 Labs: Abnormal Lab Results - Last 24 Hours (Table) 04/28/24 04/28/24 04/28/24 Range/Units 15:31 15:31 17:39 WBC (3.8-10.6) k/uL RBC 6.44 H (4.30-5.90) m/uL MCV 75.8 L (80.0-100.0) fL MCH 24.2 L (25.0-35.0) pg RDW 15.8 H (11.5-15.5) % Carbon Dioxide (22-30) mmol/L Glucose 239 H (74-99) mg/dL POC Glucose (mg/dL) (70-110) mg/dL Troponin I 0.663 H* (0.000-0.034) ng/mL 04/28/24 04/28/24 04/28/24 Range/Units 18:07 19:52 21:09 WBC (3.8-10.6) k/uL RBC (4.30-5.90) m/uL MCV (80.0-100.0) fL MCH (25.0-35.0) pg RDW (11.5-15.5) % Carbon Dioxide (22-30) mmol/L Glucose (74-99) mg/dL POC Glucose (mg/dL) 160 H 214 H (70-110) mg/dL Troponin I 1.990 H* (0.000-0.034) ng/mL 04/29/24 04/29/24 04/29/24 Range/Units 05:38 05:38 07:23 WBC 10.9 H (3.8-10.6) k/uL RBC 6.16 H (4.30-5.90) m/uL MCV 75.5 L (80.0-100.0) fL MCH 24.4 L (25.0-35.0) pg RDW 15.9 H (11.5-15.5) % Carbon Dioxide 21 L (22-30) mmol/L Glucose 151 H (74-99) mg/dL POC Glucose (mg/dL) 169 H (70-110) mg/dL Troponin I (0.000-0.034) ng/mL 04/29/24 Range/Units 08:13 WBC (3.8-10.6) k/uL RBC (4.30-5.90) m/uL MCV (80.0-100.0) fL MCH (25.0-35.0) pg RDW (11.5-15.5) % Carbon Dioxide (22-30) mmol/L Glucose (74-99) mg/dL POC Glucose (mg/dL) (70-110) mg/dL Troponin I 1.320 H* (0.000-0.034) ng/mL
[2024-04-29 16:17] LABS: Glucose,Whole Blood 277 mg/dL (70-110)
[2024-04-29 20:31] LABS: Glucose,Whole Blood 222 mg/dL (70-110)
[2024-04-30 06:30] LABS: Glucose,Whole Blood 127 mg/dL (70-110)
[2024-04-30 06:46] LABS: Basophils # (A) 0.1 k/uL (0-0.2); Basophils % (A) 1 %; Eosinophils # (A) 0.5 k/uL (0-0.7); Eosinophils % (A) 6 %; HCT 46.6 % (39.0-53.0); HGB 14.6 gm/dL (13.0-17.5); Hypochromasia Slight; Lymphocytes % (A) 24 %; MCHC 31.4 g/dL (31.0-37.0); MCV 76.4 fL (80.0-100.0); Mean Platelet Volume 7.2; Microcytosis Slight; Monocytes # (A) 0.7 k/uL (0-1.0); Monocytes % (A) 8 %; Neutrophils # (A) 5.1 k/uL (1.3-7.7); Neutrophils % (A) 60 %; Platelet Count 258 k/uL (150-450); WBC 8.6 k/uL (3.8-10.6)
[2024-04-30 06:56] LABS: ALT 13 U/L (4-49); AST 17 U/L (17-59); African American GFR (CKD) >90 (>60 ml/min/1.73 sqM); Albumin 3.9 g/dL (3.5-5.0); Alkaline Phosphatase 99 U/L (38-126); Anion Gap 10 mmol/L; Blood Urea Nitrogen 21 mg/dL (9-20); Calcium 8.9 mg/dL (8.4-10.2); Carbon Dioxide 25 mmol/L (22-30); Chloride 106 mmol/L (98-107); Glucose 89 mg/dL (74-99); Magnesium 2.3 mg/dL (1.6-2.3); Non-African American GFR(CKD) >90 (>60 ml/min/1.73 sqM); Potassium 4.1 mmol/L (3.5-5.1); Sodium 141 mmol/L (137-145); Total Bilirubin 0.5 mg/dL (0.2-1.3); Total Protein 6.8 g/dL (6.3-8.2)
[2024-04-30] MEDS ORDERED: ISOSORBIDE MONONITRATE ER 30 MG TAB.ER.24H PO SCH (09:00)
[2024-04-30] MEDS: COLCHICINE 0.6 MG EACH PO SCH (10:15)
[2024-04-30] MEDS: RIVAROXABAN 2.5 MG TABLET PO SCH (10:16)
[2024-04-30] MEDS: ISOSORBIDE MONONITRATE ER 60 MG TAB.ER.24H PO SCH (10:16)
--- NOTE | 2024-04-30 10:40 | P.PN ---
Subjective HISTORY OF PRESENT ILLNESS: This is a 44-year-old male with a past medical history significant for coronary artery disease with previous stenting, ischemic cardiomyopathy, AICD implantation, hypertension, obstructive sleep apnea, hyperlipidemia, diabetes, and right BKA. Patient follows in the office with Dr. Hernandez. We have been asked to see the patient in consultation for non-STEMI. Patient examined at the bedside in the emergency room. Patient states yesterday he was walking out of the bathroom when he began to have chest discomfort in the middle of his chest. He also reports having some shortness of breath and abdominal pain. He took some nitro with minimal relief. He states his pain was about 9 out of 10 when he presented to the emergency room. Patient was found to have elevated troponins and was started on IV heparin and IV nitro. He continues to report chest pain this morning and is rating it 8 out of 10. He reports he has been compliant with his medications on an outpatient basis DIAGNOSTICS: - EKG reveals sinus mechanism with IVCD. No signs of acute ischemia. - Chest xray negative for acute process. - Laboratory data: WBC 10.9. Hemoglobin 15.0. Platelet count 287. Sodium 137. Potassium 4.1. BUN 20. Creatinine 0.89. Troponin 0.015. 0.663. 1.990 - Current home cardiac medications include aspirin 81 mg daily, Lipitor 80 mg at night, digoxin 250mcg daily, Jardiance 25 mg daily, Zetia 10 mg daily, fenof ibrate 145 mg daily, Imdur 60 mg daily, metoprolol succinate 200 mg daily, Ranexa 1000 mg twice a day, Xarelto 2.5 mg twice a day, Entresto 49-51 mg twice a day, Aldactone 12.5 mg daily, and Brilinta 90 mg twice a day. - Most recent echocardiogram obtained in February 2024 revealing ejection fraction 30 to 35%, moderate concentric LVH, mild MR - Cardiac catheterization history: 04/10/2024 with balloon angioplasty of the PDA and PLV branches of the RCA 04/30/2024 Patient is status post cardiac catheterization yesterday with Dr. Hernandez with stenting of the mid RCA and PLV branch of the RCA. Patient examined this morning the bedside. Patient reports she is still having some chest discomfort this morning. He states he feels about 20% improved since coming to the hospital. He has been up ambulating to the bathroom. He reports shortness of breath with exertion. Currently denies any shortness of breath at rest. Vital signs are stable. PHYSICAL EXAM: VITAL SIGNS: Reviewed. GENERAL: Well-developed in no acute distress. HEENT: Head is normocephalic. Pupils are equal, round. Sclerae anicteric. Mucous membranes of the mouth are moist. Neck supple. No JVD or thyromegaly LUNGS: Respirations even and unlabored. Lungs essentially clear to auscultation bilaterally. HEART: Regular rate and rhythm. S1 and S2 heard. ABDOMEN: Soft. Nondistended. Nontender. EXTREMITIES: Normal range of motion. No clubbing or cyanosis. Peripheral pulses intact. Right BKA NEUROLOGIC: Awake and alert. Oriented x 3. ASSESSMENT: Non-STEMI status post stenting of the mid RCA and PLV branch of the mid RCA, 04/29/2024 Coronary artery disease with recent balloon angioplasty of the PDA and PLV branches of the RCA, 04/10/2024 History of stenting in the mid and distal LAD Known REMOTE SENSING RESEARCH SCIENTIST of the RCA Known REMOTE SENSING RESEARCH SCIENTIST of the left circumflex Ischemic cardiomyopathy, 30 to 35% History of AICD implantation Hypertension Hyperlipidemia Obstructive sleep apnea Diabetes History of right BKA PLAN: Continue current cardiac medications Continue dual antiplatelet therapy with aspirin and Brilinta for 12 months Continue high intensity statin. LDL goal less than 70 Resume Xarelto 2.5 mg twice a day for chronic CAD Increase Imdur to 120 mg daily Check sed rate and CRP Add low-dose colchicine 0.6 mg daily Continue to monitor patient for an additional 24 hours Further recommendations pending patient course Nurse practitioner note has been reviewed by physician. Signing provider agrees with the documented findings, assessment, and plan of care documented by MOTOR BUILDER ASSEMBLER as a scribe. Objective - Vital Signs Vital signs: Vital Signs Temp 97.5 F L 04/30/24 05:04 Pulse 70 04/30/24 05:04 Resp 16 04/30/24 05:04 BP 129/87 04/30/24 05:04 Pulse Ox 99 04/30/24 05:04 FiO2 Intake & Output 04/29/24 04/30/24 04/30/24 18:59 06:59 18:59 Intake Total 2013.125 240 Balance 2013.125 240 Weight 119.1 kg Intake: IV 430 Intake, IV Titration 642.125 Amount Nitroglycerin-D5w Pmx 50 42.125 mg In Dextrose/Water 1 250ml.bag @ 5 MCG/MIN 1.5 mls/hr IV .Q24H [facility] Rx#: [id number] Sodium Chloride 0.9% 1, 600 000 ml In Empty Bag 1 bag @ 75 mls/hr IV .[id number] [facility] Rx#:[id number] Oral 942 240 Other: # Voids 1 - Labs CBC & Chem 7: 04/30/24 05:40 04/30/24 05:40 Labs: Abnormal Lab Results - Last 24 Hours (Table) 04/29/24 04/29/24 04/30/24 Range/Units 16:10 20:30 05:40 RBC 6.10 H (4.30-5.90) m/uL MCV 76.4 L (80.0-100.0) fL MCH 24.0 L (25.0-35.0) pg RDW 16.0 H (11.5-15.5) % BUN (9-20) mg/dL POC Glucose (mg/dL) 277 H 222 H (70-110) mg/dL C-Reactive Protein (<1.0) mg/dL 04/30/24 04/30/24 04/30/24 Range/Units 05:40 05:40 06:28 RBC (4.30-5.90) m/uL MCV (80.0-100.0) fL MCH (25.0-35.0) pg RDW (11.5-15.5) % BUN 21 H (9-20) mg/dL POC Glucose (mg/dL) 127 H (70-110) mg/dL C-Reactive Protein 2.8 H (<1.0) mg/dL
[2024-04-30 11:18] LABS: Glucose,Whole Blood 113 mg/dL (70-110)
--- NOTE | 2024-04-30 12:35 | P.PN ---
Subjective Progress Note Date: 04/30/24 Hospital Course: 44-year-old male with a history of CAD with prior MIs and stent placement, rece nt PTCA of PDA and PLV branches of RCA on 04/10, HFrEF, EF 30 to 35% status post AICD, type 2 diabetes, hypertension, dyslipidemia, peripheral neuropathy, right BKA, SP on CPAP presenting with chest pain. In the ED, temperature was 98.4, pulse 94, respiratory rate 20, blood pressure 147/85, saturating at 99% on room air. WBC 7.8, hemoglobin 15.6, platelet 274, creatinine 0.97, glucose 239, troponin 0.015. Chest x-ray independently interpreted, shows no acute process. EKG independently interpreted, shows sinus rhythm with PVCs, interventricular delay, no significant ST-T wave changes. Patient admitted for continued chest pain. Cardiology consulted. Troponin trended up, peaked at 1.99. Started on heparin drip. Patient underwent cardiac cath, successful stenting of mid RCA and PLV branch of the RCA. Subjective: Patient seen and examined at bedside. Still having chest pain. Pertinent positives and negatives as discussed above, a complete review of systems was performed and all other systems are negative. Vitals Signs Reviewed. General: Nontoxic, no distress, appears at stated age Derm: Warm, dry Head: Atraumatic, normocephalic, symmetric Eyes: EOMI, no lid lag, anicteric sclera Mouth: No lip lesion, mucus membranes moist Cardiovascular: S1S2 reg, no murmur Lungs: CTA bilateral, no rhonchi, no rales, no accessory muscle use Abdominal: Soft, nontender to palpation, no guarding, no appreciable organomegaly Ext: No gross muscle atrophy, no edema, no contractures, right BKA Neuro: CN II-XI grossly intact, no focal neuro deficits Psych: Alert, oriented, appropriate affect Data Reviewed Today: Pertinent Labs: WBC 8.6, hemoglobin 14.6, creatinine 0.91, blood sugars range between 89-1 27 Imaging: No new imaging Assessment and Plan: Acute NSTEMI status post RCA and PLV stent History of CAD with multiple prior MIs and stent placement Ischemic cardiomyopathy, EF 30 to 35% status post AICD Dyslipidemia Hypertension -Discussed with cardiology, patient continues to have chest pain, started on increased Imdur to 120 mg daily Xarelto 2.5 twice daily, also started on colchicine 0.6 daily -Continue aspirin 81 mg, Brilinta 90 mg twice daily, atorvastatin 80 mg nightly, ezetimibe 10 mg daily, fenofibrate 145 daily -Ranexa 1000 mg twice daily -metoprolol 200 mg daily, Entresto 49 mg - 51 mg, Aldactone 12.5 mg daily, Jardiance 25 mg daily -Patient also on digoxin? 250 mcg daily, continue Insulin-dependent diabetes, A1c 10 Continue 70/30 insulin 60 units twice daily -Sliding scale insulin, monitor for hypoglycemia Chronic: SP on CPAP Right BKA DVT ppx: Xarelto Code status: Full code Anticipated discharge place: Home Anticipated discharge time: Tomorrow Objective - Vital Signs Vital signs: Vital Signs Temp 97.7 F 04/30/24 08:00 Pulse 91 04/30/24 08:00 Resp 18 04/30/24 08:00 BP 119/79 04/30/24 08:00 Pulse Ox 99 04/30/24 08:00 FiO2 Intake & Output 04/29/24 04/30/24 04/30/24 18:59 06:59 18:59 Intake Total 2013.125 240 Balance 2013.125 240 Weight 119.1 kg Intake: IV 430 Intake, IV Titration 642.125 Amount Nitroglycerin-D5w Pmx 50 42.125 mg In Dextrose/Water 1 250ml.bag @ 5 MCG/MIN 1.5 mls/hr IV .Q24H [facility] Rx#: [id number] Sodium Chloride 0.9% 1, 600 000 ml In Empty Bag 1 bag @ 75 mls/hr IV .[id number] [facility] Rx#:[id number] Oral 942 240 Other: # Voids 1 - Labs CBC & Chem 7: 04/30/24 05:40 04/30/24 05:40 Labs: Abnormal Lab Results - Last 24 Hours (Table) 04/29/24 04/29/24 04/30/24 Range/Units 16:10 20:30 05:40 RBC 6.10 H (4.30-5.90) m/uL MCV 76.4 L (80.0-100.0) fL MCH 24.0 L (25.0-35.0) pg RDW 16.0 H (11.5-15.5) % ESR (0-15) mm/Hr BUN (9-20) mg/dL POC Glucose (mg/dL) 277 H 222 H (70-110) mg/dL C-Reactive Protein (<1.0) mg/dL 04/30/24 04/30/24 04/30/24 Range/Units 05:40 05:40 05:40 RBC (4.30-5.90) m/uL MCV (80.0-100.0) fL MCH (25.0-35.0) pg RDW (11.5-15.5) % ESR 29 H (0-15) mm/Hr BUN 21 H (9-20) mg/dL POC Glucose (mg/dL) (70-110) mg/dL C-Reactive Protein 2.8 H (<1.0) mg/dL 04/30/24 04/30/24 Range/Units 06:28 11:14 RBC (4.30-5.90) m/uL MCV (80.0-100.0) fL MCH (25.0-35.0) pg RDW (11.5-15.5) % ESR (0-15) mm/Hr BUN (9-20) mg/dL POC Glucose (mg/dL) 127 H 113 H (70-110) mg/dL C-Reactive Protein (<1.0) mg/dL
[2024-04-30 12:42] VITALS: BMI 35.6
[2024-04-30 16:09] LABS: Glucose,Whole Blood 173 mg/dL (70-110)
[2024-04-30 19:58] LABS: Glucose,Whole Blood 245 mg/dL (70-110)
[2024-05-01 05:56] LABS: Glucose,Whole Blood 224 mg/dL (70-110)
[2024-05-01] MEDS: NITROGLYCERIN SL TABS 0.4 MG TAB SUBLINGUAL PRN (09:47)
--- NOTE | 2024-05-01 11:39 | P.PN ---
Subjective Progress Note Date: 05/01/24 HISTORY OF PRESENT ILLNESS: This is a 44-year-old male with a past medical history significant for coronary artery disease with previous stenting, ischemic cardiomyopathy, AICD implantation, hypertension, obstructive sleep apnea, hyperlipidemia, diabetes, and right BKA. Patient follows in the office with Dr. Hernandez. We have been asked to see the patient in consultation for non-STEMI. Patient examined at the bedside in the emergency room. Patient states yesterday he was walking out of the bathroom when he began to have chest discomfort in the middle of his chest. He also reports having some shortness of breath and abdominal pain. He took some nitro with minimal relief. He states his pain was about 9 out of 10 when he presented to the emergency room. Patient was found to have elevated troponi ns and was started on IV heparin and IV nitro. He reports he has been compliant with his medications on an outpatient basis DIAGNOSTICS: - EKG reveals sinus mechanism with IVCD. No signs of acute ischemia. - Chest xray negative for acute process. - Laboratory data: WBC 10.9. Hemoglobin 15.0. Platelet count 287. Sodium 137. Potassium 4.1. BUN 20. Creatinine 0.89. Troponin 0.015. 0.663. 1.990 - Current home cardiac medications include aspirin 81 mg daily, Lipitor 80 mg at night, digoxin 250mcg daily, Jardiance 25 mg daily, Zetia 10 mg daily, fenofibrate 145 mg daily, Imdur 60 mg daily, metoprolol succinate 200 mg daily, Ranexa 1000 mg twice a day, Xarelto 2.5 mg twice a day, Entresto 49-51 mg twice a day, Aldactone 12.5 mg daily, and Brilinta 90 mg twice a day. - Most recent echocardiogram obtained in February 2024 revealing ejection fraction 30 to 35%, moderate concentric LVH, mild MR - Cardiac catheterization history: 04/10/2024 with balloon angioplasty of the PDA and PLV branches of the RCA 04/30/2024 Patient is status post cardiac catheterization yesterday with Dr. Hernandez with stenting of the mid RCA and PLV branch of the RCA. Patient examined this morning the bedside. Patient reports she is still having some chest discomfort this morning. He states he feels about 20% improved since coming to the hospital. He has been up ambulating to the bathroom. He reports shortness of breath with exertion. Currently denies any shortness of breath at rest. Vital signs are stable. 05/01/2024 Reports he is having chest pain that is worse today after getting up to the bat hroom with shortness of breath. Requesting pain medications. ESR 29. PHYSICAL EXAM: VITAL SIGNS: Reviewed. GENERAL: Well-developed in no acute distress. HEENT: Head is normocephalic. Pupils are equal, round. Sclerae anicteric. Mucous membranes of the mouth are moist. Neck supple. No JVD LUNGS: Respirations even and unlabored. Lungs essentially clear to auscultation bilaterally. HEART: Regular rate and rhythm. S1 and S2 heard. ABDOMEN: Soft. Nondistended. Nontender. EXTREMITIES: Normal range of motion. No clubbing or cyanosis. Peripheral pulses intact. Right BKA NEUROLOGIC: Awake and alert. Oriented x 3. ASSESSMENT: Non-STEMI status post stenting of the mid RCA and PLV branch of the mid RCA, 04/29/2024 Coronary artery disease with recent balloon angioplasty of the PDA and PLV bra nches of the RCA, 04/10/2024 History of stenting in the mid and distal LAD Known HOT AIR FURNACE INSTALLER AND REPAIRER of the RCA Known HOT AIR FURNACE INSTALLER AND REPAIRER of the left circumflex Ischemic cardiomyopathy, 30 to 35% History of AICD implantation Hypertension Hyperlipidemia Obstructive sleep apnea Diabetes History of right BKA PLAN: Repeat EKG was done this morning and stable compared to prior EKG. Troponin 0.442, recheck in 2 hours. He did not have improvement with nitroglycerin. Continue current cardiac medications Continue dual antiplatelet therapy with aspirin and Brilinta for 12 months Continue high intensity statin. LDL goal less than 70 Resume Xarelto 2.5 mg twice a day for chronic CAD Add low-dose colchicine 0.6 mg daily Continue to monitor patient Further recommendations pending patient course Nurse practitioner note has been reviewed by physician. Signing provider agrees with the documented findings, assessment, and plan of care documented by VIDEO GAME ENGINEER as a scribe. Objective - Vital Signs Vital signs: Vital Signs Temp 97.6 F 05/01/24 08:00 Pulse 78 05/01/24 08:00 Resp 18 05/01/24 08:00 BP 145/84 05/01/24 08:00 Pulse Ox 99 05/01/24 08:00 FiO2 Intake & Output 01/01/1405/01/24 05/01/24 18:59 06:59 18:59 Intake Total 702 1080 240 Balance 702 1080 240 Weight 119.1 kg 119.7 kg Intake: Oral 702 1080 240 Other: Voiding Method Toilet # Voids 1 - Labs CBC & Chem 7: 04/30/24 05:40 04/30/24 05:40 Labs: Abnormal Lab Results - Last 24 Hours (Table) 04/30/24 04/30/24 05/01/24 Range/Units 16:08 19:56 05:54 POC Glucose (mg/dL) 173 H 245 H 224 H (70-110) mg/dL Troponin I (0.000-0.034) ng/mL 05/01/24 Range/Units 09:53 POC Glucose (mg/dL) (70-110) mg/dL Troponin I 0.442 H* (0.000-0.034) ng/mL
[2024-05-01 12:18] LABS: Glucose,Whole Blood 108 mg/dL (70-110)
--- NOTE | 2024-05-01 14:01 | P.PN ---
Subjective Progress Note Date: 05/01/24 Hospital Course: 44-year-old male with a history of CAD with prior MIs and stent placement, rec ent PTCA of PDA and PLV branches of RCA on 04/10, HFrEF, EF 30 to 35% status post AICD, type 2 diabetes, hypertension, dyslipidemia, peripheral neuropathy, right BKA, SP on CPAP presenting with chest pain. In the ED, temperature was 98.4, pulse 94, respiratory rate 20, blood pressure 147/85, saturating at 99% on room air. WBC 7.8, hemoglobin 15.6, platelet 274, creatinine 0.97, glucose 239, troponin 0.015. Chest x-ray independently interpreted, shows no acute process. EKG independently interpreted, shows sinus rhythm with PVCs, interventricular delay, no significant ST-T wave changes. Patient admitted for continued chest pain. Cardiology consulted. Troponin trended up, peaked at 1.99. Started on heparin drip. Patient underwent cardiac cath, successful stenting of mid RCA and PLV branch of the RCA. 05/01 patient continued to have chest pain, repeat EKG revealed no changes from before, troponin 0.442, patient took sublingual nitro with no symptoms relief. Discussed with cardiology, continue to monitor patient, resume Xarelto, added low-dose colchicine 0.6 daily Pertinent Imaging: EKG with no significant changes, no ST elevation Subjective: Patient was seen and examined at bedside, complaining of sternal chest pain, constant, radiating to left neck, sometimes left arm, denies shortness of breath, abdominal pain Pertinent positives and negatives as discussed above, a complete review of systems was performed and all other systems are negative. Vitals Signs Reviewed. General: [nontoxic], [no distress], [appears at stated age], obese Derm: [warm], [dry] Head: [atraumatic], [normocephalic], [symmetric] Eyes: [EOMI], [no lid lag], [anicteric sclera] Mouth: [no lip lesion], [mucus membranes moist] Cardiovascular: [S1S2 reg], [no murmur] Lungs: [CTA bilateral], [no rhonchi, no rales] , [no accessory muscle use] Abdominal: [soft], [ nontender to palpation], [no guarding], [no appreciable organomegaly] Ext: [no gross muscle atrophy], [no edema], [no contractures] Neuro: [ CN II-XI grossly intact], [no focal neuro deficits] Psych: [Alert], [oriented], [appropriate affect] Data Reviewed Today: Pertinent Labs: Troponin 0.442, maikel was 1.990 on 04/28, Imaging: KG as above Assessment and Plan: [NSTEMI status post PCI with mid RCA and PLV branch of the mid RCA stents on 04/29/2024 CAD, status post balloon angioplasty of the PDA and PLV branches of the RCA 04/10/2024 Previous history of stenting in the mid and distal LAD Ischemic cardiomyopathy EF 30 to 35% Status post AICD HTN HLD -Discussed with cardiology, repeat troponin pending, continue to monitor -Continue increased dose of Imdur 120 mg daily, continue Xarelto 2.5 twice malgorzata y, started on colchicine 0.6 daily, continue baby aspirin, high intensity atorvastatin 80 mg, ezetimibe 10 mg, fenofibrate 145 daily -Continue Ranexa 1000 mg twice daily -metoprolol 200 mg daily, Entresto 49 mg - 51 mg, Aldactone 12.5 mg daily, Jardiance 25 mg daily -Patient also on digoxin 250 mcg daily, continue [Chronic:] DM: Increased insulin to 65 twice daily, continue SSI SP History of right BKA DVT ppx: Xarelto Code status: Full code Anticipated discharge place: Home Anticipated discharge time: Tomorrow Objective - Vital Signs Vital signs: Vital Signs Temp 97.6 F 05/01/24 08:00 Pulse 75 05/01/24 12:00 Resp 18 05/01/24 12:00 BP 102/70 05/01/24 12:00 Pulse Ox 98 05/01/24 12:00 FiO2 Intake & Output 04/30/24 05/01/24 05/01/24 18:59 06:59 18:59 Intake Total 702 1080 240 Balance 702 1080 240 Weight 119.1 kg 119.7 kg Intake: Oral 702 1080 240 Other: Voiding Method Toilet # Voids 1 - Labs CBC & Chem 7: 04/30/24 05:40 04/30/24 05:40 Labs: Abnormal Lab Results - Last 24 Hours (Table) 04/30/24 04/30/24 05/01/24 Range/Units 16:08 19:56 05:54 POC Glucose (mg/dL) 173 H 245 H 224 H (70-110) mg/dL Troponin I (0.000-0.034) ng/mL 05/01/24 Range/Units 09:53 POC Glucose (mg/dL) (70-110) mg/dL Troponin I 0.442 H* (0.000-0.034) ng/mL
[2024-05-01 16:38] LABS: Glucose,Whole Blood 167 mg/dL (70-110)
[2024-05-01 20:12] LABS: Glucose,Whole Blood 300 mg/dL (70-110)
[2024-05-01] MEDS: INSULN ASP PRT/INSULIN ASPART 100 UNIT/ML 10 ML VIAL SQ SCH (20:17)
[2024-05-02 04:05] VITALS: RESP 16
[2024-05-02 06:19] LABS: Glucose,Whole Blood 174 mg/dL (70-110)
[2024-05-02 11:27] VITALS: TEMP 98
[2024-05-02 11:30] LABS: Glucose,Whole Blood 248 mg/dL (70-110)
--- NOTE | 2024-05-02 14:25 | P.DS ---
Providers Date of admission: 04/28/24 16:57 Attending physician: Brandt Durant MD Consults: 04/28/24 16:56 Consult Physician Routine Consulting Provider: Milagros Cortez Consult Reason/Comments: cp Do you want consulting provider notified?: Yes 04/29/24 11:27 Consult Physician Routine Consulting Provider: Cardiology Garo Consult Reason/Comments: Post Interventional patient Do you want consulting provider notified?: Already Contacted Primary care physician: Stated None Hospital Course: Discharge Diagnosis: NSTEMI status post PCI with mid RCA and PLV branch of the mid RCA stents on 04/29/2024 CAD, status post balloon angioplasty of the PDA and PLV branches of the RCA 04/10/2024 Previous history of stenting in the mid and distal LAD Ischemic cardiomyopathy EF 30 to 35% Status post AICD HTN HLD Insulin-dependent diabetes, SP, history of right BKA Hospital Course: 44-year-old male with a history of CAD with prior MIs and stent placement, recent PTCA of PDA and PLV branches of RCA on 04/10, HFrEF, EF 30 to 35% status post AICD, type 2 diabetes, hypertension, dyslipidemia, peripheral neuropathy, right BKA, SP on CPAP presenting with chest pain. In the ED, temperature was 98.4, pulse 94, respiratory rate 20, blood pressure 147/85, saturating at 99% on room air. WBC 7.8, hemoglobin 15.6, platelet 274, creatinine 0.97, glucose 239, troponin 0.015. Chest x-ray independently interpreted, shows no acute process. EKG independently interpreted, shows sinus rhythm with PVCs, interventricular delay, no significant ST-T wave changes. Patient admitted for continued chest pain. Cardiology consulted. Troponin trended up, peaked at 1.99. Started on heparin drip. Patient underwent cardiac cath, successful stenting of mid RCA and PLV branch of the RCA. 05/01 patient continued to have chest pain, repeat EKG revealed no changes from before, troponin 0.442, patient took sublingual nitro with no symptoms relief. Discussed with cardiology, continue to monitor patient, resume Xarelto, added low-dose colchicine 0.6 daily. Patient will be discharged on aspirin, Brilinta, continue for 12 months, continue Xarelto, increased dose of Imdur, no other changes to home medications 05/02, symptoms persistent, although patient appears to be not in acute distress. Troponins flat, no EKG changes as above. Cleared for discharge by cardiology High risk for readmission. Patient seen and examined at bedside Vital signs reviewed and stable. General: [nontoxic], [no distress], [appears at stated age] Derm: [warm], [dry] Head: [atraumatic], [normocephalic], [symmetric] Eyes: [EOMI], [no lid lag], [anicteric sclera] Mouth: [no lip lesion], [mucus membranes moist] Cardiovascular: [S1S2 reg], [no murmur] Lungs: [CTA bilateral], [no rhonchi, no rales] , [no accessory muscle use] Abdominal: [soft], [ nontender to palpation], [no guarding], [no appreciable organomegaly] Ext: [no gross muscle atrophy], [no edema], [no contractures] Neuro: [ CN II-XI grossly intact], [no focal neuro deficits] Psych: [Alert], [oriented], [appropriate affect] A total of 40 minutes of time were spent preparing this complex discharge summary. Patient was discharged on 05/02/2024. Patient Condition at Discharge: Fair Plan - Discharge Summary Discharge Rx Participant: No New Discharge Prescriptions: New Colchicine [Colcrys] 0.6 mg PO DAILY #30 each Continue Aspirin 81 mg PO DAILY #30 Empagliflozin [Jardiance] 25 mg PO DAILY Atorvastatin [Lipitor] 80 mg PO HS Insulin NPH Hum/Reg Insulin Hm [humuLIN 70/30 Kwikpen] 60 unit SQ BID Ranolazine [Ranexa] 1,000 mg PO BID Fenofibrate Nanocrystallized [Fenofibrate] 145 mg PO DAILY Digoxin [Digitek] 250 mcg PO DAILY Lidocaine 4% Patch 1 patch TOPICAL DAILY 30 Days #30 patch Metoprolol Succinate (ER) [Toprol XL] 200 mg PO DAILY Ezetimibe [Zetia] 10 mg PO DAILY #90 tab Nitroglycerin Sl Tabs [Nitrostat] 0.4 mg SUBLINGUAL Q5M PRN #30 tab PRN Reason: Chest Pain Semaglutide [Ozempic] 1 mg SQ TH Rivaroxaban [Xarelto] 2.5 mg PO BID Naproxen [Naprosyn] 250 mg PO TID PRN #12 tab PRN Reason: Pain Ticagrelor [Brilinta] 90 mg PO BID #60 tab oxyCODONE HCL/ACETAMINOPHEN [Percocet 5-325 mg] 1 tab PO Q6HR PRN 3 Days #12 tab PRN Reason: Pain Spironolactone [Aldactone] 12.5 mg PO DAILY #30 tablet Mag Hydrox/Al Hydrox/Simeth [Maalox] 30 ml PO Q4HR PRN ml PRN Reason: Heartburn Sacubitril/Valsartan [Entresto 49 mg-51 mg Tablet] 1 tab PO BID Changed Isosorbide Mononitrate ER [Imdur] 120 mg PO DAILY #30 tab Discharge Medication List Aspirin 81 mg PO DAILY #30 07/15/21 [Rx] Nitroglycerin Sl Tabs [Nitrostat] 0.4 mg SUBLINGUAL Q5M PRN #30 tab 07/15/21 [Rx] Atorvastatin [Lipitor] 80 mg PO HS 10/13/21 [History] Empagliflozin [Jardiance] 25 mg PO DAILY 10/13/21 [History] Insulin NPH Hum/Reg Insulin Hm [humuLIN 70/30 Kwikpen] 60 unit SQ BID 12/07/21 [History] Digoxin [Digitek] 250 mcg PO DAILY 03/11/24 [History] Fenofibrate Nanocrystallized [Fenofibrate] 145 mg PO DAILY 03/11/24 [History] Ranolazine [Ranexa] 1,000 mg PO BID 03/11/24 [History] Rivaroxaban [Xarelto] 2.5 mg PO BID 03/11/24 [History] Semaglutide [Ozempic] 1 mg SQ TH 03/11/24 [History] Lidocaine 4% Patch 1 patch TOPICAL DAILY 30 Days #30 patch 03/13/24 [Rx] Naproxen [Naprosyn] 250 mg PO TID PRN #12 tab 03/13/24 [Rx] Ticagrelor [Brilinta] 90 mg PO BID #60 tab 03/26/24 [Rx] oxyCODONE HCL/ACETAMINOPHEN [Percocet 5-325 mg] 1 tab PO Q6HR PRN 3 Days #12 tab 03/26/24 [Rx] Metoprolol Succinate (ER) [Toprol XL] 200 mg PO DAILY 04/08/24 [History] Ezetimibe [Zetia] 10 mg PO DAILY #90 tab 04/11/24 [Rx] Mag Hydrox/Al Hydrox/Simeth [Maalox] 30 ml PO Q4HR PRN ml 04/11/24 [Rx] Spironolactone [Aldactone] 12.5 mg PO DAILY #30 tablet 04/11/24 [Rx] Sacubitril/Valsartan [Entresto 49 mg-51 mg Tablet] 1 tab PO BID 04/28/24 [History] Colchicine [Colcrys] 0.6 mg PO DAILY #30 each 05/02/24 [Rx] Isosorbide Mononitrate ER [Imdur] 120 mg PO DAILY #30 tab 05/02/24 [Rx] Follow up Appointment(s)/Referral(s): Damion Hernandez MD [STAFF PHYSICIAN] - 1 Week [facility] [NON-STAFF] - (Contact regarding becoming established with a primary care provider. ) None,Stated [Primary Care Provider] - 1-2 days Activity/Diet/Wound Care/Special Instructions: PLease, follow up with your PCP and diesel inspector Discharge/Stand Alone Forms: Area PCPs Discharge Disposition: HOME SELF-CARE
--- NOTE | 2024-05-02 15:41 | P.PN ---
Subjective Progress Note Date: 05/02/24 HISTORY OF PRESENT ILLNESS: This is a 44-year-old male with a past medical history significant for coronary artery disease with previous stenting, ischemic cardiomyopathy, AICD implantation, hypertension, obstructive sleep apnea, hyperlipidemia, diabetes, and right BKA. Patient follows in the office with Dr. Hernandez. We have been asked to see the patient in consultation for non-STEMI. Patient examined at the bedside in the emergency room. Patient states yesterday he was walking out of the bathroom when he began to have chest discomfort in the middle of his chest. He also reports having some shortness of breath and abdominal pain. He took some nitro with minimal relief. He states his pain was about 9 out of 10 when he presented to the emergency room. Patient was found to have elevated troponi ns and was started on IV heparin and IV nitro. He reports he has been compliant with his medications on an outpatient basis DIAGNOSTICS: - EKG reveals sinus mechanism with IVCD. No signs of acute ischemia. - Chest xray negative for acute process. - Laboratory data: WBC 10.9. Hemoglobin 15.0. Platelet count 287. Sodium 137. Potassium 4.1. BUN 20. Creatinine 0.89. Troponin 0.015. 0.663. 1.990 - Current home cardiac medications include aspirin 81 mg daily, Lipitor 80 mg at night, digoxin 250mcg daily, Jardiance 25 mg daily, Zetia 10 mg daily, fenofibrate 145 mg daily, Imdur 60 mg daily, metoprolol succinate 200 mg daily, Ranexa 1000 mg twice a day, Xarelto 2.5 mg twice a day, Entresto 49-51 mg twice a day, Aldactone 12.5 mg daily, and Brilinta 90 mg twice a day. - Most recent echocardiogram obtained in February 2024 revealing ejection fraction 30 to 35%, moderate concentric LVH, mild MR - Cardiac catheterization history: 04/10/2024 with balloon angioplasty of the PDA and PLV branches of the RCA 04/30/2024 Patient is status post cardiac catheterization yesterday with Dr. Hernandez with stenting of the mid RCA and PLV branch of the RCA. Patient examined this morning the bedside. Patient reports she is still having some chest discomfort this morning. He states he feels about 20% improved since coming to the hospital. He has been up ambulating to the bathroom. He reports shortness of breath with exertion. Currently denies any shortness of breath at rest. Vital signs are stable. 05/01/2024 Reports he is having chest pain that is worse today after getting up to the bat hroom with shortness of breath. Requesting pain medications. ESR 29, CRP 2.8. 05/02/2024 Patient seen and examined. He reports that his chest pain is the same. It is worse when he is up moving. Shortness of breath has been stable. PHYSICAL EXAM: VITAL SIGNS: Reviewed. GENERAL: Well-developed in no acute distress. HEENT: Head is normocephalic. Pupils are equal, round. Sclerae anicteric. Mucous membranes of the mouth are moist. Neck supple. No JVD LUNGS: Respirations even and unlabored. Lungs essentially clear to auscultation bilaterally. HEART: Regular rate and rhythm. S1 and S2 heard. ABDOMEN: Soft. Nondistended. Nontender. EXTREMITIES: Normal range of motion. No clubbing or cyanosis. Peripheral pulses intact. Right BKA NEUROLOGIC: Awake and alert. Oriented x 3. ASSESSMENT: Non-STEMI status post stenting of the mid RCA and PLV branch of the mid RCA, 04/29/2024 Coronary artery disease with recent balloon angioplasty of the PDA and PLV branches of the RCA, 04/10/2024 History of stenting in the mid and distal LAD Known PEDIATRICIAN of the RCA Known PEDIATRICIAN of the left circumflex Ischemic cardiomyopathy, 30 to 35% History of AICD implantation Hypertension Hyperlipidemia Obstructive sleep apnea Diabetes History of right BKA PLAN: Continue current cardiac medications Continue dual antiplatelet therapy with aspirin and Brilinta for 12 months Continue high intensity statin. He will likely need Repatha or Leqvio for better cholesterol management with ideal LDL goal less than 55. Discussed recommendation for cardiac rehab. Patient is cleared for discharge from a cardiac standpoint. Follow-up in office in 1 week. Nurse practitioner note has been reviewed by physician. Signing provider agrees with the documented findings, assessment, and plan of care documented by CORRECTIVE THERAPY AIDE TEACHER as a scribe. Objective - Vital Signs Vital signs: Vital Signs Temp 98.2 F 05/01/24 20:00 Pulse 79 05/02/24 04:00 Resp 16 05/02/24 04:00 BP 130/74 05/02/24 04:00 Pulse Ox 98 05/02/24 04:00 FiO2 Intake & Output 05/01/24 05/02/24 05/02/24 18:59 06:59 18:59 Intake Total 240 1620 Balance 240 1620 Weight 116.9 kg Intake: Intake, IV Titration 1620 Amount Sodium Chloride 0.9% 1, 1620 000 ml @ 20 mls/hr IV . Q24H [facility] Rx#:[id number] Oral 240 Other: Voiding Method Toilet # Voids 4 2 - Labs CBC & Chem 7: 04/30/24 05:40 04/30/24 05:40 Labs: Abnormal Lab Results - Last 24 Hours (Table) 05/01/24 05/01/24 05/01/24 Range/Units 09:53 14:29 16:37 POC Glucose (mg/dL) 167 H (70-110) mg/dL Troponin I 0.442 H* 0.463 H* (0.000-0.034) ng/mL 05/01/24 05/02/24 Range/Units 20:11 06:17 POC Glucose (mg/dL) 300 H 174 H (70-110) mg/dL Troponin I (0.000-0.034) ng/mL
[2024-05-02 17:03] VITALS: BP 122/70; PULSE 74
--- NOTE | 2024-05-04 19:36 | CDI ---
Documentation Clarification Form Date: 05/04/2024 07:26:12 PM From: Genet Valentin Phone: Admit Date: 04/28/2024 04:57:00 PM Patient Name: Shaun Roldan Visit Number: [id number] Discharge Date: 05/02/2024 04:35:00 PM ATTENTION: The Clinical Documentation Specialists (CDI) and [facility] Coding Staff appreciate your assistance in clarifying documentation. Please respond to the clarification below the line at the bottom and electronically sign. The CDI & [facility] Coding staff will review the response and follow-up if needed. Please note: Queries are made part of the Legal Health Record. If you have any questions, please contact the author of this message via ITS. Doctor/Provider: Flower Otero Your patient has an A1C of 10. Please clarify if there is clinical significance related to this value. History/Risk Factors: 44yo M, NSTEMI, CAD w stents, ICM, AICD status, HFrEF, HTN, HLD, DMII with neuropathy,SP,Hx RBKA & NE, former smoker Home Meds: Empagliflozin [Jardiance] 25 mg PO DAILY; InsulinNPHHum/Reg Insulin Hm 60 unit SQ BID, [humuLIN 70/30 Kwikpen]; Semaglutide [Ozempic] 1 mg SQ Clinical indicators: Glucose: 04/28 239 04/29 151 04/30 89 Treatment: Continue 70/30 insulin 60 twice daily. Sliding scale insulin, monitor forhypoglycemia Is there an additional diagnosis and/or clinical significance related to the above lab result/information? [ x ] Type 2 diabetes mellitus with hyperglycemia [ ] Type 2 diabetes mellitus without hyperglycemia [ ] No additional diagnosis/Not clinically significant [ ] Other, please specify [ ] Unable to determine (Template Last Revised: May 2020) MTDD
== END 2024-05-02 16:35 | disposition home or self-care (01) | DRG 174 ==
LOC: EC 15:13 → OBSVTOIN 16:57 → 6NMEDSUR 16:57 → 3SCARD 20:39
PROVIDERS: ADMIT Internal Medicine; ATTEND Internal Medicine
PROC: 4A033BC Measurement of Arterial Pressure, Coronary, Percutaneous Approach (ICD-10-PCS; 2024-04-29)
PROC: 027035Z Dilation of Coronary Artery, One Artery with Two Drug-eluting Intraluminal Devices, Percutaneous Approach (ICD-10-PCS; principal; 2024-04-29 10:30)
PROC: 02F03ZZ Fragmentation in Coronary Artery, One Artery, Percutaneous Approach (ICD-10-PCS; 2024-04-29 10:30)
PROC: B240ZZ3 Ultrasonography of Single Coronary Artery, Intravascular (ICD-10-PCS; 2024-04-29 10:30)
PROC: 4A023N7 Measurement of Cardiac Sampling and Pressure, Left Heart, Percutaneous Approach (ICD-10-PCS; 2024-04-29 10:30)
PROC: B2111ZZ Fluoroscopy of Multiple Coronary Arteries using Low Osmolar Contrast (ICD-10-PCS; 2024-04-29 10:30)
DX: I21.4 Non-ST elevation (NSTEMI) myocardial infarction (principal); I11.0 Hypertensive heart disease with heart failure; I50.22 Chronic systolic (congestive) heart failure; E11.42 Type 2 diabetes mellitus with diabetic polyneuropathy; E11.65 Type 2 diabetes mellitus with hyperglycemia; Z89.511 Acquired absence of right leg below knee; Z79.4 Long term (current) use of insulin; I25.82 Chronic total occlusion of coronary artery; I25.10 Atherosclerotic heart disease of native coronary artery without angina pectoris; I25.5 Ischemic cardiomyopathy; E78.5 Hyperlipidemia, unspecified; G47.33 Obstructive sleep apnea (adult) (pediatric); Z95.5 Presence of coronary angioplasty implant and graft; Z95.810 Presence of automatic (implantable) cardiac defibrillator; I25.2 Old myocardial infarction; Z82.49 Family history of ischemic heart disease and other diseases of the circulatory system; Z79.82 Long term (current) use of aspirin; Z79.84 Long term (current) use of oral hypoglycemic drugs; Z79.899 Other long term (current) drug therapy; Z79.02 Long term (current) use of antithrombotics/antiplatelets; Z79.01 Long term (current) use of anticoagulants; Z87.891 Personal history of nicotine dependence; Z79.85 Long-term (current) use of injectable non-insulin antidiabetic drugs
CPT/HCPCS: 36415; 71046; 80053; 83690; 83735; 84100; 84484; 85025; 85379; 85610; 85652; 85730; 86140; 92972; 92978; 93005; 93458; 96365; 96366; 96368; 96375; 96376; 99291

== ENCOUNTER 2024-05-08 13:37 | Inpatient (IN) | payer OTHER ==
--- NOTE | 2024-05-08 15:35 | ED ---
Chest Pain HPI - General Chief Complaint: Chest Pain Stated Complaint: Chest pain,DEANNA Time Seen by Provider: 05/08/24 13:51 Source: patient, RN notes reviewed Mode of arrival: ambulatory Limitations: no limitations - History of Present Illness Initial Comments: This is a 44-year-old male with history of AMI, heart catheterization, CAD presenting with left chest pain (12/30) since this morning. Patient describes pain as constant, radiating to left neck and arm with associated SOB and dizziness. Endorses use of nitroglycerin with transient relief. Denies fever, chills, abdominal pain, N/V/D, diaphoresis. MD Complaint: chest pain Onset/Timin -: days(s) Time: 08:00 Onset: during rest Pain Location: left chest Pain Radiation: LUE, neck Severity scale (1-10): 9 Quality: tightness Consistency: constant Improves With: nitroglycerin Context: other (Recent catheterization) Anginal Symptoms: dyspnea, other (Dizziness) Treatments Prior to Arrival: nitroglycerin - Related Data Home Medications Medication Instructions Recorded Confirmed Atorvastatin [Lipitor] 80 mg PO HS 10/13/21 05/08/24 Empagliflozin [Jardiance] 25 mg PO DAILY 10/13/21 05/08/24 Insulin NPH Hum/Reg Insulin Hm 60 unit SQ BID 12/07/21 05/08/24 [humuLIN 70/30 Kwikpen] Digoxin [Digitek] 250 mcg PO DAILY 03/11/24 05/08/24 Fenofibrate Nanocrystallized 145 mg PO DAILY 03/11/24 05/08/24 [Fenofibrate] Ranolazine [Ranexa] 1,000 mg PO BID 03/11/24 05/08/24 Rivaroxaban [Xarelto] 2.5 mg PO BID 03/11/24 05/08/24 Semaglutide [Ozempic] 1 mg SQ TH 03/11/24 05/08/24 Sacubitril/Valsartan [Entresto 49 1 tab PO BID 04/28/24 05/08/24 mg-51 mg Tablet] Lidocaine 4% Patch 1 patch TRANSDERM DAILY 05/08/24 05/08/24 Metoprolol Succinate [Toprol XL] 200 mg PO DAILY 05/08/24 05/08/24 Previous Rx's Medication Instructions Recorded Aspirin 81 mg PO DAILY #30 07/15/21 Nitroglycerin Sl Tabs [Nitrostat] 0.4 mg SUBLINGUAL Q5M PRN #30 tab 07/15/21 Naproxen [Naprosyn] 250 mg PO TID PRN #12 tab 03/13/24 Ticagrelor [Brilinta] 90 mg PO BID #60 tab 03/26/24 oxyCODONE HCL/ACETAMINOPHEN 1 tab PO Q6HR PRN 3 Days #12 tab 03/26/24 [Percocet 5-325 mg] Ezetimibe [Zetia] 10 mg PO DAILY #90 tab 04/11/24 Mag Hydrox/Al Hydrox/Simeth 30 ml PO Q4HR PRN ml 04/11/24 [Maalox] Spironolactone [Aldactone] 12.5 mg PO DAILY #30 tablet 04/11/24 Colchicine [Colcrys] 0.6 mg PO DAILY #30 each 05/02/24 Isosorbide Mononitrate ER [Imdur] 120 mg PO DAILY #30 tab 05/02/24 Allergies Allergy/AdvReac Type Severity Reaction Status Date / Time Penicillins Allergy Unknown Verified 05/08/24 18:04 Childhood Review of Systems ROS Statement: Those systems with pertinent positive or pertinent negative responses have been documented in the HPI. ROS Other: All systems not noted in ROS Statement are negative. Past Medical History Past Medical History: Coronary Artery Disease (CAD), Chest Pain / Angina, Heart Failure, Diabetes Mellitus, Hyperlipidemia, Hypertension, Myocardial Infarction (MS), Sleep Apnea/CPAP/BIPAP, Syncope Additional Past Medical History / Comment(s): AICD. IDDM type II. Neuropathy bilateral feet. 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 Migraines. Chronic back pain. R BKA (done 2023). Last Myocardial Infarction Date:: 2023 History of Any Multi-Drug Resistant Organisms: None Reported Past Surgical History: AICD, Heart Catheterization, Heart Catheterization With Stent, Orthopedic Surgery Additional Past Surgical History / Comment(s): 10/27/12 AICD, DFTs, PCI with 2 stents, R BKA. Past Anesthesia/Blood Transfusion Reactions: No Reported Reaction Date of Last Stent Placement:: 02/03/16 Type of Cardiac Device: AICD Device Placement Date:: 2012 Past Psychological History: Anxiety, Depression Smoking Status: Former smoker - Past Family History Mother Family Medical History: No Reported History Brother(s) Family Medical History: Myocardial Infarction (MS) Father Family Medical History: Liver Disease Sister(s) Additional Family Medical History / Comment(s): Huntings disease General Exam Limitations: no limitations General appearance: alert, in no apparent distress Head exam: Present: atraumatic, normocephalic, normal inspection Eye exam: Present: normal appearance, PERRL, EOMI. Absent: scleral icterus, conjunctival injection, periorbital swelling ENT exam: Present: normal exam, mucous membranes moist Neck exam: Present: normal inspection. Absent: tenderness, meningismus, lymphadenopathy Respiratory exam: Present: normal lung sounds bilaterally. Absent: respiratory distress, wheezes, rales, rhonchi, stridor Cardiovascular Exam: Present: regular rate, normal rhythm, normal heart sounds. Absent: systolic murmur, diastolic murmur, rubs, gallop, clicks GI/Abdominal exam: Present: soft, normal bowel sounds. Absent: distended, tenderness, guarding, rebound, rigid Extremities exam: Present: normal inspection, full ROM, normal capillary refill. Absent: tenderness, pedal edema, joint swelling, calf tenderness Back exam: Present: normal inspection Neurological exam: Present: alert, oriented X3, CN II-XII intact Psychiatric exam: Present: normal affect, normal mood Skin exam: Present: warm, dry, intact, normal color. Absent: rash Course Vital Signs 05/08/24 05/08/24 13:57 17:37 Temperature 98.0 F Pulse Rate 90 73 Respiratory 22 16 Rate Blood Pressure 129/77 O2 Sat by Pulse 98 97 Oximetry Chest Pain MDM - MDM Was pt. sent in by a medical professional or institution (, PA, SILK SCREEN OPERATOR, urgent care, hospital, or residential...) When possible be specific @ -No Did you speak to anyone other than the patient for history (EMS, parent, family, police, friend...)? What history was obtained from this source @ -No Did you review nursing and triage notes (agree or disagree)? Why? @ -I reviewed and agree with nursing and triage notes Were old charts reviewed (outside hosp., previous admission, EMS record, old EKG, old radiological studies, urgent care reports/EKG's, residential records)? Report findings @ -Catheterization notes from 04/29/2024 reviewed Differential Diagnosis (chest pain, altered mental status, abdominal pain women, abdominal pain men, vaginal bleeding, weakness, fever, dyspnea, syncope, headache, dizziness, GI bleed, back pain, seizure, CVA, palpatations, mental health, musculoskeletal)? @ -Differential Chest Pain: Stable Angina, Unstable Angina, STEMI, NSTEMI Aortic Dissection, Pneumothorax, Musculoskeletal, Esophageal Spasm GERD, Cholecystitis, Pancreatitis, Zoster, this is not meant to be an all-inclusive list. EKG interpreted by me (3pts min.). @ -Sinus rhythm with no ST changes or T wave inversion. Ventricular rate 77 bpm, KATHIE 205 ms, QRS duration 124 ms, QTc 390 ms. X-rays interpreted by me (1pt min.). @ -CXR shows no acute cardiopulmonary process. CT interpreted by me (1pt min.). @ -None done U/S interpreted by me (1pt. min.). @ -None done What testing was considered but not performed or refused? (CT, X-rays, U/S, labs)? Why? @ -None What meds were considered but not given or refused? Why? @ -None Did you discuss the management of the patient with other professionals (professionals i.e. , PA, SILK SCREEN OPERATOR, lab, RT, psych nurse, social media campaign manager, licensed nursing assistant, teacher, chief procurement officer, keycase assembler)? Give summary @ - spoke to Latonia from [facility] regarding patient admission Was smoking cessation discussed for >3mins.? @ -No Was critical care preformed (if so, how long)? @ -No Were there social determinants of health that impacted care today? How? (Homelessness, low income, unemployed, alcoholism, drug addiction, transport ation, low edu. Level, literacy, decrease access to med. care, senior living, rehab)? @ -No Was there de-escalation of care discussed even if they declined (Discuss DNR or withdrawal of care, Hospice)? DNR status @ -No What co-morbidities impacted this encounter? (DM, HTN, Smoking, COPD, CAD, Cancer, CVA, ARF, Chemo, Hep., AIDS, mental health diagnosis, sleep apnea, morbid obesity)? @ -CAD Was patient admitted / discharged? Hospital course, mention meds given and route, prescriptions, significant lab abnormalities, going to OR and other pertinent info. @ -Lab work shows elevated troponin (0.067). CXR shows no acute cardiopulmonary process. Patient provided aspirin and morphine. Started on low intensity heparin infusion. Carmina from [facility] notified of patient admission for NSTEMI. Discussed patient with Dr. Henson. Undiagnosed new problem with uncertain prognosis? @ -AMI Drug Therapy requiring intensive monitoring for toxicity (Heparin, Nitro, Insulin, Cardizem)? @ -No Were any procedures done? @ -No Diagnosis/symptom? @ -NSTEMI Acute, or Chronic, or Acute on Chronic? @ -Acute Uncomplicated (without systemic symptoms) or Complicated (systemic symptoms)? @ -Complicated Side effects of treatment? @ -No Exacerbation, Progression, or Severe Exacerbation? @ -No Poses a threat to life or bodily function? How? (Chest pain, USA, MS, pneumonia, PE, COPD, DKA, ARF, appy, cholecystitis, CVA, Diverticulitis, Homicidal, Suicidal, threat to staff... and all critical care pts) @ -AMI Disposition Clinical Impression: NSTEMI (non-ST elevated myocardial infarction) Disposition: ADMITTED IP TO THIS HOSP Condition: Stable Instructions (If sedation given, give patient instructions): Chest Pain (ED) Is patient prescribed a controlled substance at d/c from ED?: No Referrals: None,Stated [Primary Care Provider] - 1-2 days Time of Disposition: 19:00 Decision Date: 05/08/24 Decision Time: 19:00
--- NOTE | 2024-05-08 15:44 | XR ---
EXAMINATION TYPE: XR chest 2V DATE OF EXAM: 05/08/2024 3:41 PM COMPARISON: None. CLINICAL INDICATION: Male, 44 years old with history of Chest Pain, TECHNIQUE: XR chest 2V view(s) obtained. FINDINGS: The heart size is normal. Pacemaker overlies left chest The pulmonary vasculature is normal. The lungs are clear. IMPRESSION: 1. No acute pulmonary process. [facility], Workstation: [facility], 05/08/2024 3:42 PM
[2024-05-08] MEDS: ASPIRIN 81 MG PO STA (16:30)
[2024-05-08] MEDS: MORPHINE SULFATE 2 MG/ML SYRINGE IVP ONE (16:50)
[2024-05-08 16:51] LABS: INR 0.9 (<1.2); Partial Thromboplastin Time 22.8 sec (22.0-30.0)
[2024-05-08 16:55] LABS: ALT 18 U/L (4-49); AST 18 U/L (17-59); African American GFR (CKD) >90 (>60 ml/min/1.73 sqM); Albumin 4.5 g/dL (3.5-5.0); Alkaline Phosphatase 93 U/L (38-126); Anion Gap 13 mmol/L; Blood Urea Nitrogen 20 mg/dL (9-20); Calcium 9.4 mg/dL (8.4-10.2); Carbon Dioxide 19 mmol/L (22-30); Chloride 106 mmol/L (98-107); Glucose 164 mg/dL (74-99); Magnesium 2.4 mg/dL (1.6-2.3); Non-African American GFR(CKD) 89 (>60 ml/min/1.73 sqM); Potassium 4.3 mmol/L (3.5-5.1); Sodium 138 mmol/L (137-145); Total Bilirubin 0.8 mg/dL (0.2-1.3)
[2024-05-08 17:02] LABS: Basophils # (A) 0.1 k/uL (0-0.2); Basophils % (A) 1 %; Eosinophils # (A) 0.2 k/uL (0-0.7); Eosinophils % (A) 2 %; HGB 15.7 gm/dL (13.0-17.5); Lymphocytes # (A) 1.8 k/uL (1.0-4.8); Lymphocytes % (A) 22 %; MCHC 32.8 g/dL (31.0-37.0); MCV 73.4 fL (80.0-100.0); Mean Platelet Volume 7.4; Microcytosis Moderate; Monocytes # (A) 0.5 k/uL (0-1.0); Monocytes % (A) 5 %; Neutrophils # (A) 5.8 k/uL (1.3-7.7); Neutrophils % (A) 68 %; Platelet Count 270 k/uL (150-450); RBC 6.54 m/uL (4.30-5.90); WBC 8.5 k/uL (3.8-10.6)
[2024-05-08] MEDS: MORPHINE SULFATE 4 MG/ML SYRINGE IVP STA (18:45)
[2024-05-08] MEDS: HEPARIN SOD,PORK IN 0.45% NACL 25,000 UNIT in 0.45% NACL 1 250ML.BAG IV SCH (18:51)
[2024-05-08] MEDS: HEPARIN SODIUM 1,000 UN/ML (10ML VL) IV ONE (18:51)
[2024-05-08] MEDS ORDERED: ACETAMINOPHEN TAB 325 MG TAB PO PRN (19:10)
[2024-05-08] MEDS ORDERED: ONDANSETRON 4 MG/2 ML VIAL IVP PRN (19:10)
[2024-05-08] MEDS ORDERED: NALOXONE 0.4 MG/ML 1 ML VIAL IV PRN (19:10)
[2024-05-08] MEDS: HYDROmorphone 0.5 MG/0.5 ML SYRINGE IVP PRN (19:57)
[2024-05-08] MEDS: RANOLAZINE 500 MG TAB.ER.12H PO SCH (21:29)
[2024-05-08] MEDS: TICAGRELOR 90 MG TAB PO SCH (21:29)
[2024-05-08] MEDS: SACUBITRIL/VALSARTAN 49 MG-51 MG TABLET PO SCH (21:29)
[2024-05-08] MEDS: INSULN ASP PRT/INSULIN ASPART 100 UNIT/ML 10 ML VIAL SQ SCH (22:21)
[2024-05-08] MEDS: HYDROmorphone 1 MG/ML 1 ML SYRINGE IVP PRN (23:26)
[2024-05-09] MEDS: HEPARIN SODIUM 1,000 UN/ML (10ML VL) IV PRN (02:28)
[2024-05-09] MEDS: NITROGLYCERIN SL TABS 0.4 MG TAB SUBLINGUAL PRN (03:10)
[2024-05-09 07:41] LABS: Glucose,Whole Blood 216 mg/dL (70-110)
[2024-05-09] MEDS: FENOFIBRATE 160 MG TAB PO SCH (08:17)
[2024-05-09] MEDS: EZETIMIBE 10 MG TAB PO SCH (08:17)
[2024-05-09] MEDS: DAPAGLIFLOZIN PROPANEDIOL 10 MG TABLET PO SCH (08:17)
[2024-05-09] MEDS: SPIRONOLACTONE 25 MG TAB PO SCH (08:18)
[2024-05-09] MEDS: METOPROLOL SUCCINATE (ER) 100 MG TAB.ER.24H PO SCH (08:18)
[2024-05-09] MEDS: DIGOXIN 250 MCG TAB PO SCH (08:42)
--- NOTE | 2024-05-09 10:23 | P.CRDCN ---
History of Present Illness Consult date: 05/09/24 History of present illness: HISTORY OF PRESENTING ILLNESS: 44-year-old male with past ministry of severe CAD status post multiple stenting, ischemic cardiomyopathy, AICD, hypertension, SP, poorly controlled diabetes, right BKA. He is known to Dr. Orlando. On April 29 patient underwent a PCI of his mid RCA and PLV branch. 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 He had prior stenting to his LAD which were patent. This time he presented to the hospital because of increased worsening chest pressure with mild to moderate exertion while helping her daughter. Admission Cardiac Labs: Troponin 0.06, 0.068, 0.148. BUN 20, creatinine 1.02, Hb 15.7, Admission testing: EKG shows sinus rhythm, mild IVCD, anterior Q waves, no significant ST-T wave changes concerning for ischemia REVIEW OF SYSTEMS: 14 point review of system is negative except what is mentioned above in HPI. PHYSICAL EXAMINATION: Neck: Brisk carotid upstroke, no jugular venous distention. Lungs: Clear to auscultation. Heart: Regular rate and rhythm, S1-S2, no significant murmurs, right radial pulses not palpable, left radial pulses palpable. Abdomen: Soft nontender, positive bowel sounds. Extremities: No edema, intact distal pulses. Right BKA Neuro: Alert, oritented, no focal deficits. Detailed neuro exam was not performed. ASSESSMENT: # NSTEMI # Severe CAD status post multiple PCI. Residual known [employer] SAL[employer] CONSULTANT of RCA. Patent LAD stents. Recent PCI to mid RCA and PL branch # Dyslipidemia # Type 2 diabetes # Obesity # Right BKA PLAN: Continue IV heparin drip Continue current directed medical therapy with Aspirin 81 mg, present on 90 mg twice daily, Lipitor 80 mg, Zetia 10 mg Metoprolol succinate 200 mg daily, Imdur 120 mg daily, Ranexa 1000 mg daily Discontinue digoxin Monitor heart rate, if heart rate is still high that is >60 at rest, consider getting this patient on ivabradine Discussed case with Dr. Orlando for consideration for LCx PCI because of recurrent refractory angina Federico Esposito MD, [facility], [facility] Thank you for allowing [facility] to participate in this patient's care. Feel free to reach out in case of any followup questions. Past Medical History Past Medical History: Coronary Artery Disease (CAD), Chest Pain / Angina, Heart Failure, Diabetes Mellitus, Hyperlipidemia, Hypertension, Myocardial Infarction ([place]), Sleep Apnea/CPAP/BIPAP, Syncope Additional Past Medical History / Comment(s): AICD. IDDM type II. Neuropathy bilateral feet. 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 Migraines. Chronic back pain. R BKA (done 2023). Last Myocardial Infarction Date:: 2023 History of Any Multi-Drug Resistant Organisms: None Reported Past Surgical History: AICD, Heart Catheterization, Heart Catheterization With Stent, Orthopedic Surgery Additional Past Surgical History / Comment(s): 10/27/12 AICD, DFTs, PCI with 2 stents, R BKA. Past Anesthesia/Blood Transfusion Reactions: No Reported Reaction Date of Last Stent Placement:: 02/03/16 Type of Cardiac Device: AICD Device Placement Date:: 2012 Past Psychological History: Anxiety, Depression Smoking Status: Former smoker - Past Family History Mother Family Medical History: No Reported History Brother(s) Family Medical History: Myocardial Infarction ([place]) Father Family Medical History: Liver Disease Sister(s) Additional Family Medical History / Comment(s): Huntings disease Medications and Allergies Home Medications Medication Instructions Recorded Confirmed Type Aspirin 81 mg PO DAILY #30 07/15/21 05/08/24 Rx Nitroglycerin Sl Tabs [Nitrostat] 0.4 mg SUBLINGUAL Q5M PRN #30 tab 07/15/21 05/08/24 Rx Atorvastatin [Lipitor] 80 mg PO HS 10/13/21 05/08/24 History Empagliflozin [Jardiance] 25 mg PO DAILY 10/13/21 05/08/24 History Insulin NPH Hum/Reg Insulin Hm 60 unit SQ BID 12/07/21 05/08/24 History [humuLIN 70/30 Kwikpen] Digoxin [Digitek] 250 mcg PO DAILY 03/11/24 05/08/24 History Fenofibrate Nanocrystallized 145 mg PO DAILY 03/11/24 05/08/24 History [Fenofibrate] Ranolazine [Ranexa] 1,000 mg PO BID 03/11/24 05/08/24 History Rivaroxaban [Xarelto] 2.5 mg PO BID 03/11/24 05/08/24 History Semaglutide [Ozempic] 1 mg SQ TH 03/11/24 05/08/24 History Naproxen [Naprosyn] 250 mg PO TID PRN #12 tab 03/13/24 05/08/24 Rx Ticagrelor [Brilinta] 90 mg PO BID #60 tab 03/26/24 05/08/24 Rx oxyCODONE HCL/ACETAMINOPHEN 1 tab PO Q6HR PRN 3 Days #12 tab 03/26/24 05/08/24 R x [Percocet 5-325 mg] Ezetimibe [Zetia] 10 mg PO DAILY #90 tab 04/11/24 05/08/24 Rx Mag Hydrox/Al Hydrox/Simeth 30 ml PO Q4HR PRN ml 04/11/24 05/08/24 Rx [Maalox] Spironolactone [Aldactone] 12.5 mg PO DAILY #30 tablet 04/11/24 05/08/24 Rx Sacubitril/Valsartan [Entresto 49 1 tab PO BID 04/28/24 05/08/24 History mg-51 mg Tablet] Colchicine [Colcrys] 0.6 mg PO DAILY #30 each 05/02/24 05/08/24 Rx Isosorbide Mononitrate ER [Imdur] 120 mg PO DAILY #30 tab 05/02/24 05/08/24 Rx Lidocaine 4% Patch 1 patch TRANSDERM DAILY 05/08/24 05/08/24 History Metoprolol Succinate [Toprol XL] 200 mg PO DAILY 05/08/24 05/08/24 History Allergies Allergy/AdvReac Type Severity Reaction Status Date / Time Penicillins Allergy Unknown Verified 05/08/24 18:04 Childhood Physical Exam Vitals: Vital Signs Temp Pulse Resp BP Pulse Ox 05/09/24 08:00 80 17 119/84 98 05/09/24 06:29 82 18 125/85 98 05/09/24 05:18 80 16 116/79 05/09/24 03:37 99 16 115/80 05/09/24 02:42 98.0 F 112 H 18 136/105 98 05/08/24 22:55 97 18 141/91 95 05/08/24 21:31 105 H 20 137/93 97 05/08/24 17:37 73 16 129/77 97 05/08/24 13:57 98.0 F 90 22 98 Intake and Output 05/08/24 05/09/24 05/09/24 22:59 06:59 14:59 Intake Total 76 89.94 Balance 76 89.94 Intake: Intake, IV Titration 76 89.94 Amount Heparin Sod,Pork in 0.45% 76 89.94 NaCl 25,000 unit In 0.45 % NaCl 1 250ml.bag @ 8. 351 UNITS/KG/HR 10 mls/hr IV .Q24H [facility] Rx#: [id number] Results 05/08/24 16:29 05/08/24 16:29 Cardiac Enzymes 05/08/24 05/08/24 05/08/24 Range/Units 16:29 16:29 20:03 AST 18 (17-59) U/L Troponin I 0.067 H* 0.068 H* (0.000-0.034) ng/mL 05/09/24 Range/Units 02:50 AST (17-59) U/L Troponin I 0.148 H* (0.000-0.034) ng/mL Coagulation 05/08/24 05/09/24 05/09/24 Range/Units 16:29 00:46 07:59 PT 10.0 (10.0-12.5) sec APTT 22.8 24.6 27.3 (22.0-30.0) sec CBC 05/08/24 Range/Units 16:29 WBC 8.5 (3.8-10.6) k/uL RBC 6.54 H (4.30-5.90) m/uL Hgb 15.7 (13.0-17.5) gm/dL Hct 48.0 (39.0-53.0) % Plt Count 270 (150-450) k/uL Comprehensive Metabolic Panel 05/08/24 Range/Units 16:29 Sodium 138 (137-145) mmol/L Potassium 4.3 (3.5-5.1) mmol/L Chloride 106 (98-107) mmol/L Carbon Dioxide 19 L (22-30) mmol/L BUN 20 (9-20) mg/dL Creatinine 1.02 (0.66-1.25) mg/dL Glucose 164 H (74-99) mg/dL Calcium 9.4 (8.4-10.2) mg/dL AST 18 (17-59) U/L ALT 18 (4-49) U/L Alkaline Phosphatase 93 (38-126) U/L Total Protein 8.0 (6.3-8.2) g/dL Albumin 4.5 (3.5-5.0) g/dL Current Medications Generic Name Dose Route Start Last Admin Trade Name Freq PRN Reason Stop Dose Admin Acetaminophen 650 mg 05/08/24 19:10 Acetaminophen Tab 325 Mg Tab PO Q6HR PRN Mild Pain or Fever > 100.5 Aspirin 81 mg 05/10/24 09:00 Aspirin 81 Mg PO DAILY [facility] Atorvastatin Calcium 80 mg 05/09/24 21:00 Atorvastatin 80 Mg Tab PO HS KSENIA Dapagliflozin 10 mg 05/09/24 09:00 05/09/24 08:17 Dapagliflozin Propanediol 10 Mg Tablet PO 10 mg DAILY KSENIA Administration Ezetimibe 10 mg 05/09/24 09:00 05/09/24 08:17 Ezetimibe 10 Mg Tab PO 10 mg DAILY KSENIA Administration Heparin Sodium (Porcine) 0 unit 05/09/24 02:19 05/09/24 09:04 Heparin Sodium 1,000 Un/Ml (10ml Vl) IV 4,000 unit PER PROTOCOL PRN Administration Low PTT Protocol Hydromorphone HCl 0.5 mg 05/08/24 19:10 05/08/24 19:57 Hydromorphone 0.5 Mg/0.5 Ml Syringe IVP 0.5 mg Q3HR PRN Administration Moderate Pain (Scale 4 to 6) Hydromorphone HCl 1 mg 05/08/24 19:10 05/09/24 07:37 Hydromorphone 1 Mg/Ml 1 Ml Syringe IVP 1 mg Q3HR PRN Administration Severe Pain (Scale 7 to 10) Heparin Sodium/Sodium Chloride 250 mls @ 10 mls/hr 05/08/24 18:30 05/09/24 09:04 25,000 unit/ Sodium Chloride IV 14.351 units/kg/hr .Q24H KSENIA 17.185 mls/hr Titration Protocol 8.351 UNITS/KG/HR Insulin Aspart 60 unit 05/08/24 21:00 05/09/24 09:07 Insuln Asp Prt/Insulin Aspart 100 Unit/Ml 10 Ml Vial SQ Not Given AC-BID KSENIA Isosorbide Mononitrate 120 mg 05/09/24 10:30 Isosorbide Mononitrate Er 60 Mg Tab.Er.24h PO DAILY [facility] Metoprolol Succinate 200 mg 05/09/24 09:00 05/09/24 08:18 Metoprolol Succinate (Er) 100 Mg Tab.Er.24h PO 200 mg DAILY KSENIA Administration Naloxone HCl 0.2 mg 05/08/24 19:10 Naloxone 0.4 Mg/Ml 1 Ml Vial IV Q2M PRN Opioid Reversal Nitroglycerin 0.4 mg 05/08/24 19:14 05/09/24 03:10 Nitroglycerin Sl Tabs 0.4 Mg Tab SUBLINGUAL 0.4 mg Q5M PRN Administration Chest Pain Non-Formulary Medication 1 mg 05/14/24 09:00 Semaglutide [Ozempic] SQ TH [facility] Ondansetron HCl 4 mg 05/08/24 19:10 Ondansetron 4 Mg/2 Ml Vial IVP Q8HR PRN Nausea And Vomiting Oxycodone/Acetaminophen 1 each 05/08/24 19:14 Oxycodone-Apap 5-325mg 1 Each Tab PO Q6HR PRN Pain Ranolazine 1,000 mg 05/08/24 21:00 05/09/24 08:17 Ranolazine 500 Mg Tab.Er.12h PO 1,000 mg BID [facility] Administration Sacubitril/Valsartan 1 each 05/08/24 21:00 05/09/24 08:41 Sacubitril/Valsartan 49 Mg-51 Mg Tablet PO 1 each BID KSENIA Administration Spironolactone 12.5 mg 05/09/24 09:00 05/09/24 08:18 Spironolactone 25 Mg Tab PO 12.5 mg DAILY KSENIA Administration Ticagrelor 90 mg 05/08/24 21:00 05/09/24 08:17 Ticagrelor 90 Mg Tab PO 90 mg BID KSENIA Administration Intake and Output 05/08/24 05/09/24 05/09/24 22:59 06:59 14:59 Intake Total 76 89.94 Balance 76 89.94 Intake: Intake, IV Titration 76 89.94 Amount Heparin Sod,Pork in 0.45% 76 89.94 NaCl 25,000 unit In 0.45 % NaCl 1 250ml.bag @ 8. 351 UNITS/KG/HR 10 mls/hr IV .Q24H [facility]#: [id number] 05/08/24 16:29 05/08/24 16:29
[2024-05-09] MEDS: ISOSORBIDE MONONITRATE ER 60 MG TAB.ER.24H PO SCH (10:37)
--- NOTE | 2024-05-09 11:12 | P.HPIM ---
History of Present Illness This is a pleasant 44 years old male with past medical history of multiple medical problems Who presents because of chest pain that started 8 AM of 1 day duration, in the middle of his chest radiating to the left arm felt like 9 on admission currently 6/10. [place] like burning versus stabbing. Pain is worse with movement, no signi ficant relieving factors associated with shortness of breath as per patient describes however patient currently is breathing quietly does not look tachypneic. He denies coughing. Also patient told me he started complaining from left arm weakness of 1 hour duration. Patient states that when he tries to hold things he feels it is weaker. He denies tingling. Earlier had some headache and dizziness but now feels better as per patient. No blurred vision or slurred speech. Patient states that he has TIA about a year ago when he has facial droop. Patient denies abdominal pain or vomiting or diarrhea. No urinary complaints He denies smoking alcohol or illicit drugs Vital signs are stable and patient is asymptomatic Patient is afebrile Labs including CBC, BMP, LFT and INR were unremarkable Troponin is elevated at 0.31, 0.68 and 0.14 Patient was started on heparin drip and fusing machine feeder recommended to continue with antiplatelets and heparin drip Review of Systems Review of systems CONSTITUTIONAL: No fever, no malaise, no fatigue. HEENT: No recent visual problems or hearing problems. Denied any sore throat. CARDIOVASCULAR: No orthopnea, PND, no palpitations, no syncope. PULMONARY: No shortness of breath, no cough, no hemoptysis. GASTROINTESTINAL: No diarrhea, no nausea, no vomiting, no abdominal pain. Normoactive bowel sounds. -NEUROLOGICAL: As above. HEMATOLOGICAL: Denies any bleeding or petechiae. GENITOURINARY: Denies any burning micturition, frequency, or urgency. MUSCULOSKELETAL/RHEUMATOLOGICAL: Denies any joint pain, swelling, or any muscle pain. ENDOCRINE: Denies any polyuria or polydipsia. Past Medical History Past Medical History: Coronary Artery Disease (CAD), Chest Pain / Angina, Heart Failure, Diabetes Mellitus, Hyperlipidemia, Hypertension, Myocardial Infarction ([place]), Sleep Apnea/CPAP/BIPAP, Syncope Additional Past Medical History / Comment(s): AICD. IDDM type II. Neuropathy bilateral feet. 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 Migraines. Chronic back pain. R BKA (done 2023). Last Myocardial Infarction Date:: 2023 History of Any Multi-Drug Resistant Organisms: None Reported Past Surgical History: AICD, Heart Catheterization, Heart Catheterization With Stent, Orthopedic Surgery Additional Past Surgical History / Comment(s): 10/27/12 AICD, DFTs, PCI with 2 stents, R BKA. Past Anesthesia/Blood Transfusion Reactions: No Reported Reaction Date of Last Stent Placement:: 02/03/16 Type of Cardiac Device: AICD Device Placement Date:: 2012 Past Psychological History: Anxiety, Depression Smoking Status: Former smoker - Past Family History Mother Family Medical History: No Reported History Brother(s) Family Medical History: Myocardial Infarction ([place]) Father Family Medical History: Liver Disease Sister(s) Additional Family Medical History / Comment(s): Huntings disease Medications and Allergies Home Medications Medication Instructions Recorded Confirmed Type Aspirin 81 mg PO DAILY #30 07/15/21 05/08/24 Rx Nitroglycerin Sl Tabs [Nitrostat] 0.4 mg SUBLINGUAL Q5M PRN #30 tab 07/15/21 05/08/24 Rx Atorvastatin [Lipitor] 80 mg PO HS 10/13/21 05/08/24 History Empagliflozin [Jardiance] 25 mg PO DAILY 10/13/21 05/08/24 History Insulin NPH Hum/Reg Insulin Hm 60 unit SQ BID 12/07/21 05/08/24 History [humuLIN 70/30 Kwikpen] Digoxin [Digitek] 250 mcg PO DAILY 03/11/24 05/08/24 History Fenofibrate Nanocrystallized 145 mg PO DAILY 03/11/24 05/08/24 History [Fenofibrate] Ranolazine [Ranexa] 1,000 mg PO BID 03/11/24 05/08/24 History Rivaroxaban [Xarelto] 2.5 mg PO BID 03/11/24 05/08/24 History Semaglutide [Ozempic] 1 mg SQ TH 03/11/24 05/08/24 History Naproxen [Naprosyn] 250 mg PO TID PRN #12 tab 03/13/24 05/08/24 Rx Ticagrelor [Brilinta] 90 mg PO BID #60 tab 03/26/24 05/08/24 Rx oxyCODONE HCL/ACETAMINOPHEN 1 tab PO Q6HR PRN 3 Days #12 tab 03/26/24 05/08/24 Rx [Percocet 5-325 mg] Ezetimibe [Zetia] 10 mg PO DAILY #90 tab 04/11/24 05/08/24 Rx Mag Hydrox/Al Hydrox/Simeth 30 ml PO Q4HR PRN ml 04/11/24 05/08/24 Rx [Maalox] Spironolactone [Aldactone] 12.5 mg PO DAILY #30 tablet 04/11/24 05/08/24 Rx Sacubitril/Valsartan [Entresto 49 1 tab PO BID 04/28/24 05/08/24 History mg-51 mg Tablet] Colchicine [Colcrys] 0.6 mg PO DAILY #30 each 05/02/24 05/08/24 Rx Isosorbide Mononitrate ER [Imdur] 120 mg PO DAILY #30 tab 05/02/24 05/08/24 Rx Lidocaine 4% Patch 1 patch TRANSDERM DAILY 05/08/24 05/08/24 History Metoprolol Succinate [Toprol XL] 200 mg PO DAILY 05/08/24 05/08/24 History Allergies Allergy/AdvReac Type Severity Reaction Status Date / Time Penicillins Allergy Unknown Verified 05/08/24 18:04 Childhood Physical Exam Vitals: Vital Signs Temp Pulse Resp BP Pulse Ox 05/09/24 08:00 80 17 119/84 98 05/09/24 06:29 82 18 125/85 98 05/09/24 05:18 80 16 116/79 05/09/24 03:37 99 16 115/80 05/09/24 02:42 98.0 F 112 H 18 136/105 98 05/08/24 22:55 97 18 141/91 95 05/08/24 21:31 105 H 20 137/93 97 05/08/24 17:37 73 16 129/77 97 05/08/24 13:57 98.0 F 90 22 98 Intake and Output 05/08/24 05/09/24 05/09/24 22:59 06:59 14:59 Intake Total 76 89.94 Balance 76 89.94 Intake: Intake, IV Titration 76 89.94 Amount Heparin Sod,Pork in 0.45% 76 89.94 NaCl 25,000 unit In 0.45 % NaCl 1 250ml.bag @ 8. 351 UNITS/KG/HR 10 mls/hr IV .Q24H [facility] Rx#: [id number] -GENERAL: The patient is alert and oriented x3, not in any acute distress. Well developed, well nourished. Obese HEENT: Pupils are round and equally reacting to light. EOMI. No scleral icterus. No conjunctival pallor. Normocephalic, atraumatic. No pharyngeal erythema. No thyromegaly. CARDIOVASCULAR: S1 and S2 present. No murmurs, rubs, or gallops. PULMONARY: Chest is clear to auscultation, no wheezing , no crackles. ABDOMEN: Soft, nontender, nondistended, normoactive bowel sounds. No palpable organomegaly. MUSCULOSKELETAL: No joint swelling or deformity. -EXTREMITIES: No cyanosis, clubbing, or pedal edema. Right BKA -NEUROLOGICAL: Cranial nerves are grossly intact. Mild weakness of the left upper extremity and adductor of the fingers 4+/5 compared to the right side. Right upper extremity and both lower extremities strength 5/5. Sensation intact. Meningeal signs absent SKIN: No rashes. no petechiae. Results CBC & Chem 7: 05/08/24 16:29 05/08/24 16:29 Labs: Abnormal Lab Results - Last 24 Hours (Table) 05/08/24 05/08/24 05/08/24 Range/Units 16:29 16:29 16:29 RBC 6.54 H (4.30-5.90) m/uL MCV 73.4 L (80.0-100.0) fL MCH 24.0 L (25.0-35.0) pg RDW 16.0 H (11.5-15.5) % Carbon Dioxide 19 L (22-30) mmol/L Glucose 164 H (74-99) mg/dL POC Glucose (mg/dL) (70-110) mg/dL Magnesium 2.4 H (1.6-2.3) mg/dL Troponin I 0.067 H* (0.000-0.034) ng/mL 05/08/24 05/09/24 05/09/24 Range/Units 20:03 02:50 07:37 RBC (4.30-5.90) m/uL MCV (80.0-100.0) fL MCH (25.0-35.0) pg RDW (11.5-15.5) % Carbon Dioxide (22-30) mmol/L Glucose (74-99) mg/dL POC Glucose (mg/dL) 216 H (70-110) mg/dL Magnesium (1.6-2.3) mg/dL Troponin I 0.068 H* 0.148 H* (0.000-0.034) ng/mL Assessment and Plan Assessment: Chest pain, suspicious for non-STEMI Left upper extremity weakness, mild. Rule out acute stroke History of right BKA Diabetes mellitus Hypertension Hyperlipidemia CHF, not an active issue Coronary artery disease, status post stent History of syncope History of sleep apnea Plan: Code stroke was called for his left upper extremity weakness of 1 hour duration ( dw staff to hold ac till ct of brain is negative for a bleed) stat ct brain ordered I discussed the case with our neuro wildlife control agent Dr. Jimenez\ I discussed the case with our neurointensivist Dr. García, who recommended he is not a candidate for tpn and thromectomy but to c/w medical management and consult neuro Continue with heparin drip Continue with aspirin and Lipitor On metoprolol and other cardiac medication Discontinue digoxin per fusing machine feeder Surgery team consult Labs and medication were reviewed.. Continue same treatment. Continue with symptomatic treatment. Resume home medication. Monitor labs and vitals. DVT and GI prophylaxis. Further recommendations as per clinical course of the patient DVT prophylaxis: heparin GI Prophylaxis: Pepcid Prognosis is guarded Discussed with the patient and he agrees with the current above plan
--- NOTE | 2024-05-09 11:16 | CT ---
EXAMINATION TYPE: CT brain wo con DATE OF EXAM: 05/09/2024 11:12 AM COMPARISON: 12/07/2021. CLINICAL INDICATION: Male, 44 years old with history of left ue weakness, LT side weakness, hx TIA, c ode stroke. TECHNIQUE: Brain: Axial CT images of the brain were obtained with coronal and sagittal reformats created and rev iewed. Contrast used: None. Oral contrast used: None. CT DLP: 1217.6 mGycm, Automated exposure control for dose reduction was used. FINDINGS: Brain: Extra-axial spaces: No abnormal extra-axial fluid collections. Ventricular system: Within normal limits Cerebral parenchyma: No acute intraparenchymal hemorrhage or mass effect. The conteh-white junction is well differentiated. Cerebellum: Unremarkable. Mass effect: No evidence of midline shift. Intracranial vasculature: unremarkable Soft tissues: Normal. Calvarium/osseous structures: No depressed skull fracture. Paranasal sinuses and mastoid air cells: Mild scattered paranasal sinus disease. Visualized orbits: Orbital contents are intact. IMPRESSION: No acute intracranial process. [facility], , 05/09/2024 11:13 AM
[2024-05-09 15:47] LABS: INR 0.9 (<1.2); Prothrombin Time 10.4 sec (10.0-12.5)
[2024-05-09 16:46] LABS: Glucose,Whole Blood 243 mg/dL (70-110)
[2024-05-09] MEDS ORDERED: ALPRAZolam 0.5 MG TAB PO PRN (18:05)
[2024-05-09 20:45] LABS: Glucose,Whole Blood 126 mg/dL (70-110)
[2024-05-09] MEDS: FAMOTIDINE 20 MG/2 ML VIAL IV SCH (20:45)
[2024-05-09] MEDS: ATORVASTATIN 80 MG TAB PO SCH (20:45)
[2024-05-10 06:27] LABS: Glucose,Whole Blood 124 mg/dL (70-110)
[2024-05-10 07:48] LABS: African American GFR (CKD) >90 (>60 ml/min/1.73 sqM); Anion Gap 8 mmol/L; Blood Urea Nitrogen 22 mg/dL (9-20); Calcium 8.8 mg/dL (8.4-10.2); Carbon Dioxide 25 mmol/L (22-30); Chloride 105 mmol/L (98-107); Glucose 127 mg/dL (74-99); Non-African American GFR(CKD) 86 (>60 ml/min/1.73 sqM); Potassium 4.2 mmol/L (3.5-5.1); Sodium 138 mmol/L (137-145)
[2024-05-10 07:50] LABS: Anisocytosis Slight; Basophils # (A) 0.1 k/uL (0-0.2); Basophils % (A) 1 %; Eosinophils # (A) 0.2 k/uL (0-0.7); Eosinophils % (A) 3 %; HCT 44.1 % (39.0-53.0); HGB 14.4 gm/dL (13.0-17.5); Hypochromasia Slight; Lymphocytes # (A) 1.7 k/uL (1.0-4.8); Lymphocytes % (A) 20 %; MCH 24.7 pg (25.0-35.0); MCHC 32.6 g/dL (31.0-37.0); MCV 75.6 fL (80.0-100.0); Mean Platelet Volume 7.6; Microcytosis Slight; Monocytes # (A) 0.5 k/uL (0-1.0); Monocytes % (A) 6 %; Neutrophils # (A) 5.8 k/uL (1.3-7.7); Neutrophils % (A) 69 %; Platelet Count 240 k/uL (150-450); RBC 5.84 m/uL (4.30-5.90); RDW 16.2 % (11.5-15.5); WBC 8.4 k/uL (3.8-10.6)
[2024-05-10] MEDS: ASPIRIN 81 MG PO SCH (08:20)
[2024-05-10 11:22] LABS: Glucose,Whole Blood 127 mg/dL (70-110)
--- NOTE | 2024-05-10 12:05 | P.PN ---
Subjective This is a pleasant 44 years old male with past medical history of multiple medical problems Who presents because of chest pain that started 8 AM of 1 day duration, in the middle of his chest radiating to the left arm felt like 9 on admission currently 6/10. [place] like burning versus stabbing. Pain is worse with movement, no significant relieving factors associated with shortness of breath as per patient describes however patient currently is breathing quietly does not look tachypneic. He denies coughing. Also patient told me he started complaining from left arm weakness of 1 hour duration. Patient states that when he tries to hold things he feels it is weaker. He denies tingling. Earlier had some headache and dizziness but now feels better as per patient. No blurred vision or slurred speech. Patient states that he has TIA about a year ago when he has facial droop. Patient denies abdominal pain or vomiting or diarrhea. No urinary complaints He denies smoking alcohol or illicit drugs Vital signs are stable and patient is asymptomatic Patient is afebrile Labs including CBC, BMP, LFT and INR were unremarkable Troponin is elevated at 0.31, 0.68 and 0.14 Patient was started on heparin drip and space systems operations superintendent recommended to continue with antiplatelets and heparin drip 05/10 Patient is still has chest pain about 8/10 as explained His left hand is back to normal, no more weakness although he says little bit tingly No other new complaint Patient continued on IV heparin drip, aspirin 81 mg and Brilinta Objective - Vital Signs Vital signs: Vital Signs Temp 97.9 F 05/10/24 08:00 Pulse 71 05/10/24 08:00 Resp 16 05/10/24 08:00 BP 124/75 05/10/24 08:00 Pulse Ox 100 05/10/24 08:00 FiO2 Intake & Output 05/09/24 05/10/24 05/10/24 18:59 06:59 18:59 Intake Total 577.158 466.932 7437.32 Balance 577.158 119.067 5838.32 Weight 119.748 kg 122 kg Intake: IV 174.32 Heparin Sod,Pork in 0.45% 174.32 NaCl 25,000 unit In 0.45 % NaCl 1 250ml.bag @ 8. 351 UNITS/KG/HR 10 mls/hr IV .Q24H [facility] Rx#: [id number] Intake, IV Titration 237.158 183.265 Amount Heparin Sod,Pork in 0.45% 237.158 183.265 NaCl 25,000 unit In 0.45 % NaCl 1 250ml.bag @ 8. 351 UNITS/KG/HR 10 mls/hr IV .Q24H [facility] Rx#: [id number] Oral 340 1120 Other: # Voids 1 - Exam GENERAL: The patient is alert and oriented x3, not in any acute distress. Well developed, well nourished. HEENT: Pupils are round and equally reacting to light. EOMI. No scleral icterus. No conjunctival pallor. Normocephalic, atraumatic. No pharyngeal erythema. No thyromegaly. CARDIOVASCULAR: S1 and S2 present. No murmurs, rubs, or gallops. PULMONARY: Chest is clear to auscultation, no wheezing , no crackles. ABDOMEN: Soft, nontender, nondistended, normoactive bowel sounds. No palpable organomegaly. MUSCULOSKELETAL: No joint swelling or deformity. EXTREMITIES: No cyanosis, clubbing, or pedal edema. NEUROLOGICAL: Gross neurological examination did not reveal any focal deficits. SKIN: No rashes. no petechiae. - Labs CBC & Chem 7: 05/10/24 06:51 05/10/24 06:51 Labs: Abnormal Lab Results - Last 24 Hours (Table) 05/09/24 05/09/24 05/09/24 Range/Units 15:00 16:44 20:43 MCV (80.0-100.0) fL MCH (25.0-35.0) pg RDW (11.5-15.5) % APTT 34.9 H (22.0-30.0) sec BUN (9-20) mg/dL Glucose (74-99) mg/dL POC Glucose (mg/dL) 243 H 126 H (70-110) mg/dL 05/09/24 05/10/24 05/10/24 Range/Units 23:08 06:25 06:51 MCV 75.6 L (80.0-100.0) fL MCH 24.7 L (25.0-35.0) pg RDW 16.2 H (11.5-15.5) % APTT 39.7 H (22.0-30.0) sec BUN (9-20) mg/dL Glucose (74-99) mg/dL POC Glucose (mg/dL) 124 H (70-110) mg/dL 05/10/24 05/10/24 05/10/24 Range/Units 06:51 06:51 11:20 MCV (80.0-100.0) fL MCH (25.0-35.0) pg RDW (11.5-15.5) % APTT 50.3 H (22.0-30.0) sec BUN 22 H (9-20) mg/dL Glucose 127 H (74-99) mg/dL POC Glucose (mg/dL) 127 H (70-110) mg/dL Assessment and Plan Assessment: Chest pain, suspicious for non-STEMI Left upper extremity weakness, mild. Rule out acute stroke. CT brain is negative. Symptoms resolved History of right BKA Diabetes mellitus Hypertension Hyperlipidemia CHF, not an active issue Coronary artery disease, status post stent History of syncope History of sleep apnea Plan: Continue with heparin drip Continue with aspirin and Lipitor On metoprolol and other cardiac medication Discontinue digoxin per space systems operations superintendent Cardiology team consult Neurological symptoms improved Labs and medication were reviewed.. Continue same treatment. Continue with symptomatic treatment. Resume home medication. Monitor labs and vitals. DVT and GI prophylaxis. Further recommendations as per clinical course of the patient DVT prophylaxis: heparin GI Prophylaxis: Pepcid Prognosis is guarded Discussed with the patient and he agrees with the current above plan
--- NOTE | 2024-05-10 14:58 | P.CNNES ---
History of Present Illness Consult date: 05/10/24 History of Present Illness: The patient is a 44-year-old, right-handed male who is seen in neurologic consultation on May 10, 2024, in collaboration with Jayla Glynn, via teleneurology. The patient has a past medical history of severe coronary artery disease status post multiple stents, poorly controlled diabetes mellitus, hypertension, hyperlipidemia, cardiomyopathy. History is obtained from the patient as well as review of the chart. Patient reportedly came into the emergency department with chest pain and shortness of breath. He also notes that while he was in the ER he began to notice weakness involving his left arm. He also had a tingling sensation in his left leg. He says the symptoms were first noticed at about 4 PM. He also felt as if his left eye was twitching. He denies loss of vision, difficulty with speech and swallowing, headache. He denies changes in his hearing. Patient does report a history of a possible TIA approximately 1 year ago. He noted symptoms involved numbness of the left side of his face as well as drooping of the left side of his face. Patient reports that he also was having pain in his left arm. He says that the pain initiated in his left axilla and radiated down to his wrist. The patient reports receiving Dilaudid for this pain. He did notice mild benefit. In the emergency department CT scan of the brain was performed. There is no reported evidence of acute hemorrhage or infarct. CT angiogram of the head and neck revealed no signs of significant stenosis or large vessel occlusion. Past Medical History Past Medical History: Coronary Artery Disease (CAD), Chest Pain / Angina, Heart Failure, Diabetes Mellitus, Hyperlipidemia, Hypertension, Myocardial Infarction ([place]), Sleep Apnea/CPAP/BIPAP, Syncope Additional Past Medical History / Comment(s): AICD. IDDM type II. Neuropathy bilateral feet. 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 Migraines. Chronic back pain. R BKA (done 2023). Last Myocardial Infarction Date:: 2023 History of Any Multi-Drug Resistant Organisms: None Reported Past Surgical History: AICD, Heart Catheterization, Heart Catheterization With Stent, Orthopedic Surgery Additional Past Surgical History / Comment(s): 10/27/12 AICD, DFTs, PCI with 2 stents, R BKA. Past Anesthesia/Blood Transfusion Reactions: No Reported Reaction Date of Last Stent Placement:: 02/03/16 Type of Cardiac Device: AICD Device Placement Date:: 2012 Past Psychological History: Anxiety, Depression Additional Psychological History / Comment(s): rajesh . Smoking Status: Former smoker Past Alcohol Use History: None Reported Additional Past Alcohol Use History / Comment(s): quit in 2019 about 1/2 ppd Past Drug Use History: None Reported - Past Family History Mother Family Medical History: No Reported History Brother(s) Family Medical History: Myocardial Infarction ([place]) Father Family Medical History: Liver Disease Sister(s) Additional Family Medical History / Comment(s): Huntings disease Medications and Allergies Home Medications Medication Instructions Recorded Confirmed Type Aspirin 81 mg PO DAILY #30 07/15/21 05/08/24 Rx Nitroglycerin Sl Tabs [Nitrostat] 0.4 mg SUBLINGUAL Q5M PRN #30 tab 07/15/21 05/08/24 Rx Atorvastatin [Lipitor] 80 mg PO HS 10/13/21 05/08/24 History Empagliflozin [Jardiance] 25 mg PO DAILY 10/13/21 05/08/24 History Insulin NPH Hum/Reg Insulin Hm 60 unit SQ BID 12/07/21 05/08/24 History [humuLIN 70/30 Kwikpen] Digoxin [Digitek] 250 mcg PO DAILY 03/11/24 05/08/24 History Fenofibrate Nanocrystallized 145 mg PO DAILY 03/11/24 05/08/24 History [Fenofibrate] Ranolazine [Ranexa] 1,000 mg PO BID 03/11/24 05/08/24 History Rivaroxaban [Xarelto] 2.5 mg PO BID 03/11/24 05/08/24 History Semaglutide [Ozempic] 1 mg SQ TH 03/11/24 05/08/24 History Naproxen [Naprosyn] 250 mg PO TID PRN #12 tab 03/13/24 05/08/24 Rx Ticagrelor [Brilinta] 90 mg PO BID #60 tab 03/26/24 05/08/24 Rx oxyCODONE HCL/ACETAMINOPHEN 1 tab PO Q6HR PRN 3 Days #12 tab 03/26/24 05/08/24 Rx [Percocet 5-325 mg] Ezetimibe [Zetia] 10 mg PO DAILY #90 tab 12/21/24 01/17/25 Rx Mag Hydrox/Al Hydrox/Simeth 30 ml PO Q4HR PRN ml 04/11/24 05/08/24 Rx [Maalox] Spironolactone [Aldactone] 12.5 mg PO DAILY #30 tablet 04/11/24 05/08/24 Rx Sacubitril/Valsartan [Entresto 49 1 tab PO BID 04/28/24 05/08/24 History mg-51 mg Tablet] Colchicine [Colcrys] 0.6 mg PO DAILY #30 each 05/02/24 05/08/24 Rx Isosorbide Mononitrate ER [Imdur] 120 mg PO DAILY #30 tab 05/02/24 05/08/24 Rx Lidocaine 4% Patch 1 patch TRANSDERM DAILY 05/08/24 05/08/24 History Metoprolol Succinate [Toprol XL] 200 mg PO DAILY 05/08/24 05/08/24 History Allergies Allergy/AdvReac Type Severity Reaction Status Date / Time Penicillins Allergy Unknown Verified 05/08/24 18:04 Childhood Physical Examination - Vital Signs Vital Signs: Vital Signs Temp Pulse Resp BP Pulse Ox 05/10/24 08:00 97.9 F 71 16 124/75 100 05/10/24 04:00 97.6 F 64 16 129/74 98 05/09/24 20:00 97.6 F 67 16 115/74 98 05/09/24 14:00 17 Intake and Output 05/09/24 05/10/24 05/10/24 22:59 06:59 14:59 Intake Total 406.735 552.231 8341.32 Balance 406.735 881.695 3846.32 Intake: IV 174.32 Heparin Sod,Pork in 0.45% 174.32 NaCl 25,000 unit In 0.45 % NaCl 1 250ml.bag @ 8. 351 UNITS/KG/HR 10 mls/hr IV .Q24H [facility] Rx#: [id number] Intake, IV Titration 66.735 183.265 Amount Heparin Sod,Pork in 0.45% 66.735 183.265 NaCl 25,000 unit In 0.45 % NaCl 1 250ml.bag @ 8. 351 UNITS/KG/HR 10 mls/hr IV .Q24H [facility] Rx#: [id number] Oral 340 1120 Other: # Voids 1 Weight 119.748 kg 122 kg General: Patient is reclining in the bed. He is well-nourished, well-developed and in no acute distress. HEENT: Head is atraumatic, normocephalic. Fundus not visualized. There is no scleral icterus. Mucous membranes are moist. Neck: Supple without carotid bruits. Heart: Regular rate and rhythm Lungs: Clear to auscultation Extremities: Without edema. The patient has a right below the knee amputation Neurological examination Mental status: Patient is awake, alert and oriented x 3. His speech is clear. There is no dysarthria or aphasia. Cranial nerves: Pupils are equal at 3 mm and reactive. Visual hauser are full to confrontation. Extraocular movements are intact. There is no nystagmus. Facial sensation is diminished in the left V2 distribution. There is flattening of the left nasolabial fold. Eyebrow elevation is symmetric. Hearing is grossly intact. Uvula and palate are midline. Shoulder shrug is symmetric. Tongue protrudes to the right of midline. Motor: Strength is 5/5 in the right upper and lower extremities. Left upper extremity strength 4/5. Left hip flexor 5/5. Left ankle plantar and dorsi flexors 4/5.. Sensation: Intact to light touch. There is no extinction with double sim ultaneous stimulation. Coordination: [id number], rapid alternating movements and [id number] te sting is intact. There is no pronator drift. Deep tendon reflexes: 1+/4+ in the left upper and lower extremities. Right biceps reflex 3+/4+. Plantar responses flexor on the left. Gait: Not assessed Results - Laboratory Findings CBC and BMP: 05/10/24 06:51 05/10/24 06:51 Abnormal Lab Findings: Abnormal Labs 05/08/24 05/08/24 05/08/24 16:29 16:29 16:29 RBC 6.54 H MCV 73.4 L MCH 24.0 L RDW 16.0 H APTT Carbon Dioxide 19 L BUN Glucose 164 H POC Glucose (mg/dL) Magnesium 2.4 H Troponin I 0.067 H* 05/08/24 05/09/24 05/09/24 20:03 02:50 07:37 RBC MCV MCH RDW APTT Carbon Dioxide BUN Glucose POC Glucose (mg/dL) 216 H Magnesium Troponin I 0.068 H* 0.148 H* 05/09/24 05/09/24 05/09/24 15:00 16:44 20:43 RBC MCV MCH RDW APTT 34.9 H Carbon Dioxide BUN Glucose POC Glucose (mg/dL) 243 H 126 H Magnesium Troponin I 05/09/24 05/10/24 05/10/24 23:08 06:25 06:51 RBC MCV 75.6 L MCH 24.7 L RDW 16.2 H APTT 39.7 H Carbon Dioxide BUN Glucose POC Glucose (mg/dL) 124 H Magnesium Troponin I 05/10/24 05/10/24 05/10/24 06:51 06:51 11:20 RBC MCV MCH RDW APTT 50.3 H Carbon Dioxide BUN 22 H Glucose 127 H POC Glucose (mg/dL) 127 H Magnesium Troponin I Assessment and Plan Assessment: The patient is a 44-year-old male presented with signs and symptoms consistent with coronary artery disease/myocardial infarction. In addition to his cardiac abnormalities, the patient complained of left upper extremity weakness. Stroke workup was initiated and 100 neurology was consulted. On examination today, the patient has a left facial droop, left upper and lower extremity weakness, suspicious for right cerebral ischemia 1. Likely cerebral ischemia involving the right middle cerebral artery territory 2. NSTEMI 3. History of coronary artery disease 4. History of poorly controlled diabetes mellitus 5. History of obstructive sleep apnea 6. History of hypertension 7. AICD placement Plan: 1. Stroke order set has been placed 2. Continue high-dose statin 3. Await further testing results 4. If pacemaker and AICD are not MRI compatible we will order repeat CT scan of brain Thank you for allowing us to participate in care of this patient Dr. Colon will assume neurologic coverage of this patient as of May 11, 2024 Time with Patient: Greater than 30 (75 minutes were spent caring for this patient today including, obtaining a history, examining the patient, reviewing imaging, chart documentation, labs, placing orders and creating this note)
[2024-05-10 16:26] LABS: Glucose,Whole Blood 251 mg/dL (70-110)
[2024-05-10 20:10] LABS: Glucose,Whole Blood 182 mg/dL (70-110)
[2024-05-10] MEDS: FAMOTIDINE 20 MG TAB PO SCH (21:36)
--- NOTE | 2024-05-10 23:03 | P.CRDCN ---
History of Present Illness Consult date: 05/10/24 History of present illness: HISTORY OF PRESENTING ILLNESS: 44-year-old male with past ministry of severe CAD status post multiple stenting, ischemic cardiomyopathy, AICD, hypertension, SP, poorly controlled diabetes, right BKA. He is known to Dr. Orlando. On April 29 patient underwent a PCI of his mid RCA and PLV branch. 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 He had prior stenting to his LAD which were patent. This time he presented to the hospital because of increased worsening chest pressure with mild to moderate exertion while helping her daughter. Admission Cardiac Labs: Troponin 0.06, 0.068, 0.148. BUN 20, creatinine 1.02, Hb 15.7, Admission testing: EKG shows sinus rhythm, mild IVCD, anterior Q waves, no significant ST-T wave changes concerning for ischemia Progress note 05/10/2023 Patient is seen and examined at bedside this a.m. Patient continues to have substernal chest pressure-like symptoms. He is on max tolerated antianginal therapy. On max dose of beta-pernell, resting heart rate is around 68 bpm. There was also concerns of possible facial droop and possible CVA for which she is being evaluated by the primary medicine team. PHYSICAL EXAMINATION: Neck: Brisk carotid upstroke, no jugular venous distention. Lungs: Clear to auscultation. Heart: Regular rate and rhythm, S1-S2, no significant murmurs, right radial pulses not palpable, left radial pulses palpable. Abdomen: Soft nontender, positive bowel sounds. Extremities: No edema, intact distal pulses. Right BKA Neuro: Alert, oritented, no focal deficits. Detailed neuro exam was not performed. ASSESSMENT: # NSTEMI # Severe CAD status post multiple PCI. 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 Patent LAD stents. Recent PCI to mid RCA and PL branch # Dyslipidemia # Type 2 diabetes # Obesity # Right BKA PLAN: Continue IV heparin drip Continue current directed medical therapy with Aspirin 81 mg, present on 90 mg twice daily, Lipitor 80 mg, Zetia 10 mg Metoprolol succinate 200 mg daily, Imdur 120 mg daily, Ranexa 1000 mg daily Discontinue digoxin Monitor heart rate, if heart rate is still high that is >60 at rest, consider getting this patient on ivabradine Discussed case with Dr. Orlando for consideration for LCx PCI because of recurrent refractory angina Past Medical History Past Medical History: Coronary Artery Disease (CAD), Chest Pain / Angina, Heart Failure, Diabetes Mellitus, Hyperlipidemia, Hypertension, Myocardial Infarction (OK), Sleep Apnea/CPAP/BIPAP, Syncope Additional Past Medical History / Comment(s): AICD. IDDM type II. Neuropathy bilateral feet. 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 Migraines. Chronic back pain. R BKA (done 2023). Last Myocardial Infarction Date:: 2023 History of Any Multi-Drug Resistant Organisms: None Reported Past Surgical History: AICD, Heart Catheterization, Heart Catheterization With Stent, Orthopedic Surgery Additional Past Surgical History / Comment(s): 10/27/12 AICD, DFTs, PCI with 2 stents, R BKA. Past Anesthesia/Blood Transfusion Reactions: No Reported Reaction Date of Last Stent Placement:: 02/03/16 Type of Cardiac Device: AICD Device Placement Date:: 2012 Past Psychological History: Anxiety, Depression Additional Psychological History / Comment(s): rajesh . Smoking Status: Former smoker Past Alcohol Use History: None Reported Additional Past Alcohol Use History / Comment(s): quit in 2019 about 1/2 ppd Past Drug Use History: None Reported - Past Family History Mother Family Medical History: No Reported History Brother(s) Family Medical History: Myocardial Infarction (OK) Father Family Medical History: Liver Disease Sister(s) Additional Family Medical History / Comment(s): Huntings disease Medications and Allergies Home Medications Medication Instructions Recorded Confirmed Type Aspirin 81 mg PO DAILY #30 07/15/21 05/08/24 Rx Nitroglycerin Sl Tabs [Nitrostat] 0.4 mg SUBLINGUAL Q5M PRN #30 tab 07/15/21 05/08/24 Rx Atorvastatin [Lipitor] 80 mg PO HS 10/13/21 05/08/24 History Empagliflozin [Jardiance] 25 mg PO DAILY 10/13/21 05/08/24 History Insulin NPH Hum/Reg Insulin Hm 60 unit SQ BID 12/07/21 05/08/24 History [humuLIN 70/30 Kwikpen] Digoxin [Digitek] 250 mcg PO DAILY 03/11/24 05/08/24 History Fenofibrate Nanocrystallized 145 mg PO DAILY 03/11/24 05/08/24 History [Fenofibrate] Ranolazine [Ranexa] 1,000 mg PO BID 03/11/24 05/08/24 History Rivaroxaban [Xarelto] 2.5 mg PO BID 03/11/24 05/08/24 History Semaglutide [Ozempic] 1 mg SQ TH 03/11/24 05/08/24 History Naproxen [Naprosyn] 250 mg PO TID PRN #12 tab 03/13/24 05/08/24 Rx Ticagrelor [Brilinta] 90 mg PO BID #60 tab 03/26/24 05/08/24 Rx oxyCODONE HCL/ACETAMINOPHEN 1 tab PO Q6HR PRN 3 Days #12 tab 03/26/24 05/08/24 Rx [Percocet 5-325 mg] Ezetimibe [Zetia] 10 mg PO DAILY #90 tab 04/11/24 05/08/24 Rx Mag Hydrox/Al Hydrox/Simeth 30 ml PO Q4HR PRN ml 04/11/24 05/08/24 Rx [Maalox] Spironolactone [Aldactone] 12.5 mg PO DAILY #30 tablet 04/11/24 05/08/24 Rx Sacubitril/Valsartan [Entresto 49 1 tab PO BID 04/28/24 05/08/24 History mg-51 mg Tablet] Colchicine [Colcrys] 0.6 mg PO DAILY #30 each 05/02/24 05/08/24 Rx Isosorbide Mononitrate ER [Imdur] 120 mg PO DAILY #30 tab 05/02/24 05/08/24 Rx Lidocaine 4% Patch 1 patch TRANSDERM DAILY 05/08/24 05/08/24 History Metoprolol Succinate [Toprol XL] 200 mg PO DAILY 05/08/24 05/08/24 History Allergies Allergy/AdvReac Type Severity Reaction Status Date / Time Penicillins Allergy Unknown Verified 05/08/24 18:04 Childhood Physical Exam Vitals: Vital Signs Temp Pulse Resp BP Pulse Ox 05/10/24 21:41 16 05/10/24 21:35 97.7 F 72 17 115/78 96 05/10/24 15:27 97.5 F L 68 16 103/63 94 L 05/10/24 13:15 68 16 05/10/24 12:00 97.9 F 68 16 115/72 100 05/10/24 08:00 97.9 F 71 16 124/75 100 05/10/24 04:00 97.6 F 64 16 129/74 98 Intake and Output 05/10/24 05/10/24 05/11/24 14:59 22:59 06:59 Intake Total 1784.32 1214.32 Balance 1784.32 1214.32 Intake: IV 174.32 174.32 Heparin Sod,Pork in 0.45% 174.32 174.32 NaCl 25,000 unit In 0.45 % NaCl 1 250ml.bag @ 8. 351 UNITS/KG/HR 10 mls/hr IV .Q24H REPLACED BY [facility] Rx#: [id number] Intake, IV Titration 250 Amount Heparin Sod,Pork in 0.45% 250 NaCl 25,000 unit In 0.45 % NaCl 1 250ml.bag @ 8. 351 UNITS/KG/HR 10 mls/hr IV .Q24H REPLACED BY [facility] Rx#: [id number] Oral 1360 1040 Other: Voiding Method Toilet Results 05/10/24 06:51 05/10/24 06:51 Coagulation 05/09/24 05/10/24 Range/Units 23:08 06:51 APTT 39.7 H 50.3 H (22.0-30.0) sec CBC 05/10/24 Range/Units 06:51 WBC 8.4 (3.8-10.6) k/uL RBC 5.84 (4.30-5.90) m/uL Hgb 14.4 (13.0-17.5) gm/dL Hct 44.1 (39.0-53.0) % Plt Count 240 (150-450) k/uL Comprehensive Metabolic Panel 05/10/24 Range/Units 06:51 Sodium 138 (137-145) mmol/L Potassium 4.2 (3.5-5.1) mmol/L Chloride 105 (98-107) mmol/L Carbon Dioxide 25 (22-30) mmol/L BUN 22 H (9-20) mg/dL Creatinine 1.06 (0.66-1.25) mg/dL Glucose 127 H (74-99) mg/dL Calcium 8.8 (8.4-10.2) mg/dL Current Medications Generic Name Dose Route Start Last Admin Trade Name Freq PRN Reason Stop Dose Admin Acetaminophen 650 mg 05/08/24 19:10 Acetaminophen Tab 325 Mg Tab PO Q6HR PRN Mild Pain or Fever > 100.5 Aspirin 81 mg 05/10/24 09:00 05/10/24 08:20 Aspirin 81 Mg PO 81 mg DAILY [facility] Administration Atorvastatin Calcium 80 mg 05/09/24 21:00 05/10/24 21:36 Atorvastatin 80 Mg Tab PO 80 mg HS [facility] Administration Dapagliflozin 10 mg 05/09/24 09:00 05/10/24 08:21 Dapagliflozin Propanediol 10 Mg Tablet PO 10 mg DAILY [facility] Administration Ezetimibe 10 mg 05/09/24 09:00 05/10/24 08:20 Ezetimibe 10 Mg Tab PO 10 mg DAILY [facility] Administration Famotidine 20 mg 05/10/24 21:00 05/10/24 21:36 Famotidine 20 Mg Tab PO 20 mg BID [facility] Administration Heparin Sodium (Porcine) 0 unit 05/09/24 02:19 05/10/24 00:13 Heparin Sodium 1,000 Un/Ml (10ml Vl) IV 2,975 unit PER PROTOCOL PRN Administration Low PTT Protocol Hydromorphone HCl 0.5 mg 05/08/24 19:10 05/09/24 16:54 Hydromorphone 0.5 Mg/0.5 Ml Syringe IVP 0.5 mg Q3HR PRN Administration Moderate Pain (Scale 4 to 6) Hydromorphone HCl 1 mg 05/08/24 19:10 05/10/24 21:38 Hydromorphone 1 Mg/Ml 1 Ml Syringe IVP 1 mg Q3HR PRN Administration Severe Pain (Scale 7 to 10) Heparin Sodium/Sodium Chloride 250 mls @ 10 mls/hr 05/08/24 18:30 05/10/24 15:15 25,000 unit/ Sodium Chloride IV 18.351 units/kg/hr .Q24H [facility] 21.975 mls/hr Administration Protocol 8.351 UNITS/KG/HR Insulin Aspart 60 unit 05/08/24 21:00 05/10/24 16:51 Insuln Asp Prt/Insulin Aspart 100 Unit/Ml 10 Ml Vial SQ 60 unit AC-BID [facility] Administration Isosorbide Mononitrate 120 mg 05/09/24 10:30 05/10/24 08:20 Isosorbide Mononitrate Er 60 Mg Tab.Er.24h PO 120 mg DAILY [facility] Administration Metoprolol Succinate 200 mg 05/09/24 09:00 05/10/24 08:21 Metoprolol Succinate (Er) 100 Mg Tab.Er.24h PO 200 mg DAILY [facility] Administration Naloxone HCl 0.2 mg 05/08/24 19:10 Naloxone 0.4 Mg/Ml 1 Ml Vial IV Q2M PRN Opioid Reversal Nitroglycerin 0.4 mg 05/08/24 19:14 05/09/24 03:10 Nitroglycerin Sl Tabs 0.4 Mg Tab SUBLINGUAL 0.4 mg Q5M PRN Administration Chest Pain Non-Formulary Medication 1 mg 05/14/24 09:00 Semaglutide [Ozempic] SQ TH REPLACED BY [facility] Ondansetron HCl 4 mg 05/08/24 19:10 Ondansetron 4 Mg/2 Ml Vial IVP Q8HR PRN Nausea And Vomiting Oxycodone/Acetaminophen 1 each 05/08/24 19:14 Oxycodone-Apap 5-325mg 1 Each Tab PO Q6HR PRN Pain Ranolazine 1,000 mg 05/08/24 21:00 05/10/24 21:36 Ranolazine 500 Mg Tab.Er.12h PO 1,000 mg BID [facility] Administration Sacubitril/Valsartan 1 each 05/08/24 21:00 05/10/24 21:36 Sacubitril/Valsartan 49 Mg-51 Mg Tablet PO 1 each BID [facility] Administration Spironolactone 12.5 mg 05/09/24 09:00 05/10/24 08:20 Spironolactone 25 Mg Tab PO 12.5 mg DAILY [facility] Administration Ticagrelor 90 mg 05/08/24 21:00 05/10/24 21:36 Ticagrelor 90 Mg Tab PO 90 mg BID [facility] Administration Intake and Output 05/10/24 05/10/24 05/11/24 14:59 22:59 06:59 Intake Total 1784.32 1214.32 Balance 1784.32 1214.32 Intake: IV 174.32 174.32 Heparin Sod,Pork in 0.45% 174.32 174.32 NaCl 25,000 unit In 0.45 % NaCl 1 250ml.bag @ 8. 351 UNITS/KG/HR 10 mls/hr IV .Q24H [facility] Rx#: [id number] Intake, IV Titration 250 Amount Heparin Sod,Pork in 0.45% 250 NaCl 25,000 unit In 0.45 % NaCl 1 250ml.bag @ 8. 351 UNITS/KG/HR 10 mls/hr IV .Q24H REPLACED BY [facility] Rx#: [id number] Oral 1360 1040 Other: Voiding Method Toilet 05/10/24 06:51 05/10/24 06:51
[2024-05-11 06:13] LABS: Glucose,Whole Blood 165 mg/dL (70-110)
[2024-05-11 09:38] LABS: Chol/HDL Ratio 4.64 Ratio
--- NOTE | 2024-05-11 11:12 | P.PN ---
Subjective This is a pleasant 44 years old male with past medical history of multiple medical problems Who presents because of chest pain that started 8 AM of 1 day duration, in the middle of his chest radiating to the left arm felt like 9 on admission currently 6/10. [place] like burning versus stabbing. Pain is worse with movement, no significant relieving factors associated with shortness of breath as per patient describes however patient currently is breathing quietly does not look tachypneic. He denies coughing. Also patient told me he started complaining from left arm weakness of 1 hour duration. Patient states that when he tries to hold things he feels it is weaker. He denies tingling. Earlier had some headache and dizziness but now feels better as per patient. No blurred vision or slurred speech. Patient states that he has TIA about a year ago when he has facial droop. Patient denies abdominal pain or vomiting or diarrhea. No urinary complaints He denies smoking alcohol or illicit drugs Vital signs are stable and patient is asymptomatic Patient is afebrile Labs including CBC, BMP, LFT and INR were unremarkable Troponin is elevated at 0.31, 0.68 and 0.14 Patient was started on heparin drip and electric meter reader recommended to continue with antiplatelets and heparin drip 05/10 Patient is still has chest pain about 8/10 as explained His left hand is back to normal, no more weakness although he says little bit tingly No other new complaint Patient continued on IV heparin drip, aspirin 81 mg and Brilinta 05/11 Patient still has chest pain, the possibility of pulmonary embolism or other pulmonary causes is low as D-dimer was negative on admission 0.31 He remains on Cardizem drip for possible non-STEMI, cardiology team are planning for cardiac cath tomorrow Patient still complaining from some weakness in his left arm and tingling in his left finger, CT of the brain was negative for hemorrhage or acute stroke when he reported his symptoms on admission. Yesterday stated he feels better but today he still symptomatic. Neurology team are consulted Objective - Vital Signs Vital signs: Vital Signs Temp 97.7 F 05/10/24 21:35 Pulse 73 05/11/24 09:44 Resp 16 05/11/24 09:44 BP 117/78 05/11/24 09:44 Pulse Ox 98 05/11/24 09:44 FiO2 Intake & Output 05/10/24 05/11/24 05/11/24 18:59 06:59 18:59 Intake Total 2998.64 240 Balance 2998.64 240 Weight 123 kg Intake: IV 348.64 Heparin Sod,Pork in 0.45% 348.64 NaCl 25,000 unit In 0.45 % NaCl 1 250ml.bag @ 8. 351 UNITS/KG/HR 10 mls/hr IV .Q24H [facility] Rx#: [id number] Intake, IV Titration 250 Amount Heparin Sod,Pork in 0.45% 250 NaCl 25,000 unit In 0.45 % NaCl 1 250ml.bag @ 8. 351 UNITS/KG/HR 10 mls/hr IV .Q24H [facility] Rx#: [id number] Oral 2400 240 Other: Voiding Method Toilet Toilet # Voids 1 - Exam GENERAL: The patient is alert and oriented x3, not in any acute distress. Well developed, well nourished. HEENT: Pupils are round and equally reacting to light. EOMI. No scleral icterus. No conjunctival pallor. Normocephalic, atraumatic. No pharyngeal erythema. No thyromegaly. CARDIOVASCULAR: S1 and S2 present. No murmurs, rubs, or gallops. PULMONARY: Chest is clear to auscultation, no wheezing , no crackles. ABDOMEN: Soft, nontender, nondistended, normoactive bowel sounds. No palpable organomegaly. MUSCULOSKELETAL: No joint swelling or deformity. EXTREMITIES: No cyanosis, clubbing, or pedal edema. NEUROLOGICAL: Gross neurological examination did not reveal any focal deficits. SKIN: No rashes. no petechiae. - Labs CBC & Chem 7: 05/10/24 06:51 05/10/24 06:51 Labs: Abnormal Lab Results - Last 24 Hours (Table) 05/10/24 05/10/24 05/10/24 Range/Units 06:51 06:51 11:20 APTT (22.0-30.0) sec POC Glucose (mg/dL) 127 H (70-110) mg/dL Hemoglobin A1c 9.0 H (<=6.0) % Triglycerides 267.00 H (0.00-149.00) mg/dL VLDL Cholesterol, Calc 53.40 H (5.00-40.00) mg/dL HDL Cholesterol 36.60 L (40.00-60.00) mg/dL 05/10/24 05/10/24 05/11/24 Range/Units 16:25 20:07 05:59 APTT 53.4 H (22.0-30.0) sec POC Glucose (mg/dL) 251 H 182 H (70-110) mg/dL Hemoglobin A1c (<=6.0) % Triglycerides (0.00-149.00) mg/dL VLDL Cholesterol, Calc (5.00-40.00) mg/dL HDL Cholesterol (40.00-60.00) mg/dL 05/11/24 Range/Units 06:11 APTT (22.0-30.0) sec POC Glucose (mg/dL) 165 H (70-110) mg/dL Hemoglobin A1c (<=6.0) % Triglycerides (0.00-149.00) mg/dL VLDL Cholesterol, Calc (5.00-40.00) mg/dL HDL Cholesterol (40.00-60.00) mg/dL Assessment and Plan Assessment: Chest pain, suspicious for non-STEMI Left upper extremity weakness, mild. Rule out acute stroke. CT brain is negative. Symptoms resolved History of right BKA Diabetes mellitus Hypertension Hyperlipidemia CHF, not an active issue Coronary artery disease, status post stent History of syncope History of sleep apnea Plan: Continue with heparin drip possible cardiac cath on 05/12 per cardiology team Continue with aspirin and Lipitor On metoprolol and other cardiac medication Discontinue digoxin per electric meter reader Cardiology team consult Neurological symptoms improved Labs and medication were reviewed.. Continue same treatment. Continue with symptomatic treatment. Resume home medication. Monitor labs and vitals. DVT and GI prophylaxis. Further recommendations as per clinical course of the patient DVT prophylaxis: heparin GI Prophylaxis: Pepcid Prognosis is guarded Discussed with the patient and he agrees with the current above plan
--- NOTE | 2024-05-11 11:32 | CA ---
Transthoracic Echo Report Name: Shaun Roldan Age: 44 Gender: M : 1980 Exam Date: 05/11/2024 08:32 Exam Location: [facility] Ht (in): 72 Wt (lb): 269 Ordering Physician: Jerica Aggarwal DO Attending/Referring Phys: Utilization Management Manager Kasey [facility] RDCS Procedure CPT: Indications: CVA Cardiac Hx: limited study Technical Quality: Technically difficult study Contrast 1: Definity Total Dose (mL): 2 Contrast 2: Agitated Saline Total Dose (mL): 9 MEASUREMENTS (Male / Female) Normal Values 2D ECHO LV Diastolic Volume MOD BP 198.2 cm??? 67 - 155 / 56 - 104 cm??? LV Systolic Volume MOD BP 132.8 cm??? 22 - 58 / 19 - 49 cm??? LV Ejection Fraction MOD BP 33.0 % >= 55 % LV Cardiac Index MOD BP 1909.1 cm???/min???m??? LV Diastolic Volume MOD 4C 168.7 cm??? LV Systolic Volume MOD 4C 122.1 cm??? LV Ejection Fraction MOD 4C 27.6 % LV Cardiac Index MOD 4C 1361.4 cm???/min???m??? LV Diastolic Length 4C 8.2 cm LV Systolic Length 4C 8.1 cm LV Diastolic Volume MOD 2C 219.4 cm??? LV Systolic Volume MOD 2C 132.7 cm??? LV Ejection Fraction MOD 2C 39.5 % LV Cardiac Index MOD 2C 2531.4 cm???/min???m??? LV Diastolic Length 2C 9.0 cm LV Systolic Length 2C 8.3 cm DOPPLER TR Peak Velocity 287.1 cm/s TR Peak Gradient 33.0 mmHg Right Ventricular Systolic Press 38.0 mmHg FINDINGS Left Ventricle Left ventricular ejection fraction is estimated at 35 %. Moderately increased left ventricular diastolic volume. Severely increased left ventricular systolic volume. Moderately decreased left ventricular ejection fraction. Global hypokinesis Right Ventricle Mild pulmonary hypertension. Right Atrium Negative agitated saline bubble study for right to left shunt. Left Atrium Mitral Valve Aortic Valve Tricuspid Valve Pulmonic Valve Pericardium No pericardial effusion. Aorta CONCLUSIONS Limited echo Left ventricular ejection fraction 35% RVSP 38 Negative bubble study No pericardial effusion Previewed by: Dr. Eduard Jensen DO (Electronically Signed) Final Date: 11 May 2024 11:31
[2024-05-11 11:35] LABS: Glucose,Whole Blood 142 mg/dL (70-110)
[2024-05-11] MEDS: amLODIPine 2.5 MG TAB PO SCH (12:25)
[2024-05-11] MEDS: oxyCODONE-APAP 5-325MG 1 EACH TAB PO PRN (12:29)
--- NOTE | 2024-05-11 14:18 | P.PN ---
Subjective HISTORY OF PRESENT ILLNESS: 44-year-old male with past ministry of severe CAD status post multiple stenting, ischemic cardiomyopathy, AICD, hypertension, SP, poorly controlled diabetes, right BKA. He is known to Dr. Orlando. On April 29 patient underwent a PCI of his mid RCA and PLV branch. 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 He had prior dane nting to his LAD which were patent. This time he presented to the hospital because of increased worsening chest pressure with mild to moderate exertion while helping her daughter. Admission Cardiac Labs: Troponin 0.06, 0.068, 0.148. BUN 20, creatinine 1.02, Hb 15.7, Admission testing: EKG shows sinus rhythm, mild IVCD, anterior Q waves, no significant ST-T wave changes concerning for ischemia 05/11/2024 Patient examined this morning at the bedside. Patient continues to report episodes of chest discomfort at the time of examination. He denies any shortness of breath. He remains on IV heparin. Bedside telemetry reveals sinus mechanism. PHYSICAL EXAM: VITAL SIGNS: Reviewed. GENERAL: Well-developed in no acute distress. NECK: Supple. No JVD or thyromegaly LUNGS: Respirations even and unlabored. Lungs essentially clear to auscultation bilaterally. HEART: Regular rate and rhythm. S1 and S2 heard. EXTREMITIES: Normal range of motion. No clubbing or cyanosis. Peripheral pulses intact. Right BKA. ASSESSMENT: # NSTEMI # Severe CAD status post multiple PCI. Residual known PLASTIC SURGERY SPECIALIST of RCA. Patent LAD stents. Recent PCI to mid RCA and PL branch # Dyslipidemia # Type 2 diabetes # Obesity # Right BKA PLAN: Add small dose of amlodipine 2.5 mg daily for possible vasospasm Continue additional cardiac medications Continue IV heparin N.p.o. at midnight Patient will be reassessed tomorrow Possible cardiac catheterization to be performed pending patient's clinical condition Further recommendations pending patient course Nurse practitioner note has been reviewed by physician. Signing provider agrees with the documented findings, assessment, and plan of care documented by TRACK LAYING EQUIPMENT OPERATOR as a scribe. Objective - Vital Signs Vital signs: Vital Signs Temp 98.1 F 05/11/24 12:24 Pulse 89 05/11/24 12:24 Resp 18 05/11/24 12:24 BP 123/80 05/11/24 12:24 Pulse Ox 99 05/11/24 12:24 FiO2 Intake & Output 05/10/24 05/11/24 05/11/24 18:59 06:59 18:59 Intake Total 2998.64 240 Balance 2998.64 240 Weight 123 kg Intake: IV 348.64 Heparin Sod,Pork in 0.45% 348.64 NaCl 25,000 unit In 0.45 % NaCl 1 250ml.bag @ 8. 351 UNITS/KG/HR 10 mls/hr IV .Q24H [facility] Rx#: [id number] Intake, IV Titration 250 Amount Heparin Sod,Pork in 0.45% 250 NaCl 25,000 unit In 0.45 % NaCl 1 250ml.bag @ 8. 351 UNITS/KG/HR 10 mls/hr IV .Q24H [facility] Rx#: [id number] Oral 2400 240 Other: Voiding Method Toilet Toilet # Voids 1 - Labs CBC & Chem 7: 05/10/24 06:51 05/10/24 06:51 Labs: Abnormal Lab Results - Last 24 Hours (Table) 05/10/24 05/10/24 05/10/24 Range/Units 06:51 06:51 16:25 APTT (22.0-30.0) sec POC Glucose (mg/dL) 251 H (70-110) mg/dL Hemoglobin A1c 9.0 H (<=6.0) % Triglycerides 267.00 H (0.00-149.00) mg/dL VLDL Cholesterol, Calc 53.40 H (5.00-40.00) mg/dL HDL Cholesterol 36.60 L (40.00-60.00) mg/dL 05/10/24 05/11/24 05/11/24 Range/Units 20:07 05:59 06:11 APTT 53.4 H (22.0-30.0) sec POC Glucose (mg/dL) 182 H 165 H (70-110) mg/dL Hemoglobin A1c (<=6.0) % Triglycerides (0.00-149.00) mg/dL VLDL Cholesterol, Calc (5.00-40.00) mg/dL HDL Cholesterol (40.00-60.00) mg/dL 05/11/24 Range/Units 11:33 APTT (22.0-30.0) sec POC Glucose (mg/dL) 142 H (70-110) mg/dL Hemoglobin A1c (<=6.0) % Triglycerides (0.00-149.00) mg/dL VLDL Cholesterol, Calc (5.00-40.00) mg/dL HDL Cholesterol (40.00-60.00) mg/dL
[2024-05-11 16:16] LABS: Glucose,Whole Blood 190 mg/dL (70-110)
--- NOTE | 2024-05-11 19:02 | CT ---
EXAMINATION TYPE: CT brain wo con CT DLP: 1184.5 mGycm, Automated exposure control for dose reduction was used. DATE OF EXAM: 05/11/2024 6:17 PM COMPARISON: CT head 05/09/2024. CLINICAL INDICATION:Male, 44 years old with history of Follow up, ?subacute CVA, f/u cva TECHNIQUE: Brain: Axial CT images of the brain were obtained with coronal and sagittal reformats created and rev iewed. Contrast used: None. Oral contrast used: None. FINDINGS: Brain: Extra-axial spaces: No abnormal extra-axial fluid collections. Ventricular system: Within normal limits Cerebral parenchyma: No acute intraparenchymal hemorrhage or mass effect. The conteh-white junction is well differentiated. Cerebellum: Unremarkable. Mass effect: No evidence of midline shift. Intracranial vasculature: unremarkable Soft tissues: Small areas of attenuation along the upper scalp soft tissues. Calvarium/osseous structures: No depressed skull fracture. Paranasal sinuses and mastoid air cells: Mild scattered paranasal sinus disease. Visualized orbits: Orbital contents are intact. IMPRESSION: 1. No acute intracranial process. 2. Small areas of attenuation along the superior scalp soft tissues may relate to small laceration ve rsus hematoma. Correlate for any history of trauma and with exam. [facility], , 05/11/2024 7:00 PM
[2024-05-11 20:05] LABS: Glucose,Whole Blood 104 mg/dL (70-110)
[2024-05-12 06:10] LABS: Glucose,Whole Blood 153 mg/dL (70-110)
--- NOTE | 2024-05-12 10:12 | P.PN ---
Subjective This is a pleasant 44 years old male with past medical history of multiple medical problems Who presents because of chest pain that started 8 AM of 1 day duration, in the middle of his chest radiating to the left arm felt like 9 on admission currently 6/10. [place] like burning versus stabbing. Pain is worse with movement, no significant relieving factors associated with shortness of breath as per patient describes however patient currently is breathing quietly does not look tachypneic. He denies coughing. Also patient told me he started complaining from left arm weakness of 1 hour duration. Patient states that when he tries to hold things he feels it is weaker. He denies tingling. Earlier had some headache and dizziness but now feels better as per patient. No blurred vision or slurred speech. Patient states that he has TIA about a year ago when he has facial droop. Patient denies abdominal pain or vomiting or diarrhea. No urinary complaints He denies smoking alcohol or illicit drugs Vital signs are stable and patient is asymptomatic Patient is afebrile Labs including CBC, BMP, LFT and INR were unremarkable Troponin is elevated at 0.31, 0.68 and 0.14 Patient was started on heparin drip and mink slicer recommended to continue with antiplatelets and heparin drip 05/10 Patient is still has chest pain about 8/10 as explained His left hand is back to normal, no more weakness although he says little bit tingly No other new complaint Patient continued on IV heparin drip, aspirin 81 mg and Brilinta 05/11 Patient still has chest pain, the possibility of pulmonary embolism or other pulmonary causes is low as D-dimer was negative on admission 0.31 He remains on Cardizem drip for possible non-STEMI, cardiology team are planning for cardiac cath tomorrow Patient still complaining from some weakness in his left arm and tingling in his left finger, CT of the brain was negative for hemorrhage or acute stroke when he reported his symptoms on admission. Yesterday stated he feels better but today he still symptomatic. 05/12 Neurology team are consulted patient still complains from left arm weakness, mild. Yesterday repeat CT of the brain was negative. Which is comparable to the CT done 2 days ago on 05/09 He still complains from chest pain, echocardiogram showed ejection fraction 35% Plan for cardiac cath today. Talked to the patient and he is agreeable with the plan Objective - Vital Signs Vital signs: Vital Signs Temp 98.0 F 05/12/24 09:16 Pulse 75 05/12/24 09:16 Resp 16 05/12/24 09:16 BP 126/76 05/12/24 09:16 Pulse Ox 98 05/12/24 09:16 FiO2 Intake & Output 05/11/24 05/12/24 05/12/24 18:59 06:59 18:59 Intake Total 480 717 Balance 480 717 Weight 121.2 kg Intake: Oral 480 717 Other: Voiding Method Toilet Toilet - Exam GENERAL: The patient is alert and oriented x3, not in any acute distress. Well developed, well nourished. HEENT: Pupils are round and equally reacting to light. EOMI. No scleral icterus. No conjunctival pallor. Normocephalic, atraumatic. No pharyngeal erythema. No thyromegaly. CARDIOVASCULAR: S1 and S2 present. No murmurs, rubs, or gallops. PULMONARY: Chest is clear to auscultation, no wheezing , no crackles. ABDOMEN: Soft, nontender, nondistended, normoactive bowel sounds. No palpable organomegaly. MUSCULOSKELETAL: No joint swelling or deformity. EXTREMITIES: No cyanosis, clubbing, or pedal edema. NEUROLOGICAL: Gross neurological examination did not reveal any focal deficits. SKIN: No rashes. no petechiae. - Labs CBC & Chem 7: 05/10/24 06:51 05/10/24 06:51 Labs: Abnormal Lab Results - Last 24 Hours (Table) 05/10/24 05/11/24 05/11/24 Range/Units 06:51 11:33 16:14 POC Glucose (mg/dL) 142 H 190 H (70-110) mg/dL Hemoglobin A1c 9.0 H (<=6.0) % 05/12/24 Range/Units 06:08 POC Glucose (mg/dL) 153 H (70-110) mg/dL Hemoglobin A1c (<=6.0) % Assessment and Plan Assessment: Chest pain, suspicious for non-STEMI Left upper extremity weakness, mild. Rule out acute stroke. CT brain is negative. Symptoms resolved History of right BKA Diabetes mellitus Hypertension Hyperlipidemia CHF, not an active issue Coronary artery disease, status post stent History of syncope History of sleep apnea Plan: Continue with heparin drip possible cardiac cath on 05/12 per cardiology team Continue with aspirin and Lipitor On metoprolol and other cardiac medication Discontinue digoxin per mink slicer Cardiology team consult Neurological s team consult on the case Labs and medication were reviewed.. Continue same treatment. Continue with symptomatic treatment. Resume home medication. Monitor labs and vitals. DVT a nd GI prophylaxis. Further recommendations as per clinical course of the patient DVT prophylaxis: heparin GI Prophylaxis: Pepcid Prognosis is guarded Discussed with the patient and he agrees with the current above plan
--- NOTE | 2024-05-12 10:28 | P.PN ---
Subjective Progress Note Date: 05/11/24 Patient was initially seen by Dr. Aggarwal. Please refer to her note for details. Patient with history of CAD, ischemic cardiomyopathy, diabetes who presented to ED with chest pain and diagnosed with non-STEMI. Patient also has left-sided weakness, arm > leg. Code stroke was called. Head CT negative and CTA negative. MRI was ordered. Symptoms started on waking up on the day of admission on 05/08/2024. Patient has history of smoking one 4 pack/day for 20 years., Quit in 2014. He has diabetes since 2012. Objective - Vital Signs Vital signs: Vital Signs Temp 98.1 F 05/11/24 12:24 Pulse 68 05/11/24 15:24 Resp 18 05/11/24 15:24 BP 99/66 05/11/24 15:24 Pulse Ox 98 05/11/24 15:24 FiO2 Intake & Output 05/10/24 05/11/24 05/11/24 18:59 06:59 18:59 Intake Total 2998.64 250 240 Balance 2998.64 250 240 Weight 123 kg Intake: IV 348.64 Heparin Sod,Pork in 0.45% 348.64 NaCl 25,000 unit In 0.45 % NaCl 1 250ml.bag @ 8. 351 UNITS/KG/HR 10 mls/hr IV .Q24H KSENIA Rx#: [id number] Intake, IV Titration 250 250 Amount Heparin Sod,Pork in 0.45% 250 250 NaCl 25,000 unit In 0.45 % NaCl 1 250ml.bag @ 8. 351 UNITS/KG/HR 10 mls/hr IV .Q24H KSENIA Rx#: [id number] Oral 2400 240 Other: Voiding Method Toilet Toilet # Voids 1 - Exam On examination patient is alert and awake in no distress. Speech and language functions are normal. On cranial nerve examination, patient has left facial droop. Visual hauser are full. Extraocular muscles intact. Tongue protrudes to midline. On muscle strength testing, there is left pronator drift about 15 degree. Biceps, triceps and deltoids are normal, surgery scheduler is 5 on the right, 4 left. Left l eg is normal. Sensory decreased on the left side with neglect on the left. No ataxia for idryil-zn-dack testing. Patient has right BKA - Labs CBC & Chem 7: 05/10/24 06:51 05/10/24 06:51 Labs: Abnormal Lab Results - Last 24 Hours (Table) 05/10/24 05/10/24 05/10/24 Range/Units 06:51 06:51 16:25 APTT (22.0-30.0) sec POC Glucose (mg/dL) 251 H (70-110) mg/dL Hemoglobin A1c 9.0 H (<=6.0) % Triglycerides 267.00 H (0.00-149.00) mg/dL VLDL Cholesterol, Calc 53.40 H (5.00-40.00) mg/dL HDL Cholesterol 36.60 L (40.00-60.00) mg/dL 05/10/24 05/11/24 05/11/24 Range/Units 20:07 05:59 06:11 APTT 53.4 H (22.0-30.0) sec POC Glucose (mg/dL) 182 H 165 H (70-110) mg/dL Hemoglobin A1c (<=6.0) % Triglycerides (0.00-149.00) mg/dL VLDL Cholesterol, Calc (5.00-40.00) mg/dL HDL Cholesterol (40.00-60.00) mg/dL 05/11/24 Range/Units 11:33 APTT (22.0-30.0) sec POC Glucose (mg/dL) 142 H (70-110) mg/dL Hemoglobin A1c (<=6.0) % Triglycerides (0.00-149.00) mg/dL VLDL Cholesterol, Calc (5.00-40.00) mg/dL HDL Cholesterol (40.00-60.00) mg/dL Assessment and Plan Assessment: The patient is a 44-year-old male presented with signs and symptoms consistent with coronary artery disease/myocardial infarction. In addition to his cardiac abnormalities, the patient complained of left upper extremity weakness. Stroke workup was initiated. On examination today, the patient has a left facial droop, left upper and lower extremity weakness, suspicious for right cerebral ischemia 1. Possible CVA with left-sided weakness. 2. NSTEMI 3. Coronary artery disease 4. Diabetes, poorly controlled 5. Obstructive sleep apnea 6. Hypertension 7. AICD placement 8. History of right BKA 9. Ex tobacco use Plan: 1. Stroke order set has been placed 2. Continue high-dose statin 3. 2D echo with bubble study revealed LVEF 35%. Moderately increased left ventricular diastolic volume. Severely increased left ventricular systolic vo lume. Global hypokinesis. Negative agitated saline bubble study for dwldq-[id number] shunt. 4. Patient cannot have MRI because of presence of AICD. Will repeat CT head. 5. CTA of head and neck 04/25/2021 was read as "negative". 6. Hemoglobin A1c 9.0. Recommend optimize control of diabetes to target A1c <7.0 7. Lipid panel with cholesterol 170, LDL 80, HDL 36 and triglycerides 267. Continue Lipitor 80 mg daily. 8. Continue aspirin 81 mg and Brilinta 90 mg twice daily. At home patient was taking aspirin 81 mg, Brilinta 90 mg twice daily and Xarelto. Patient currently on heparin IV drip for non-STEMI and Xarelto is on hold. 9. Cardiology following, considering cardiac cath.
--- NOTE | 2024-05-12 11:24 | CDI ---
Documentation Clarification Form Date: 05/12/2024 11:04:41 AM From: Trice Dorantes RN CCDS Phone: [phone] Admit Date: 05/08/2024 09:54:00 PM Patient Name: Shaun Roldan Visit Number: [id number] Discharge Date: ATTENTION: The Clinical Documentation Specialists (CDI) and [facility] Coding Staff appreciate your assistance in clarifying documentation. Please respond to the clarification below the line at the bottom and electronically sign. The CDI & [facility] Coding staff will review the response and follow-up if needed. Please note: Queries are made part of the Legal Health Record. If you have any questions, please contact the author of this message via ITS. Doctor: Job E Sheet Your patient has the documented diagnosis of unspecified CHF 05/09, HP. Additional information regarding the type and acuity of CHF is requested. History/Risk Factors: 44 year old male presents to the ED for chest pain for one day radiating to the left arm left like 9 on admission. Medical History: CAD, Angina, Heart failure, DM, HLD, HTN, Sleep apnea and [place] 05/09, [place]. Clinical Indicators: VS/Pulse OX: 05/08 B/P 129/77 HR 73 RR 16 SpO2 97% ra Temp 98.0F oral Echocardiogram Results, 03/12/2024: 30-35% severely dilated LV cavity Moderate concentric LVH Chest X Ray: 05/08: No acute pulmonary process. Treatment: 05/09 Toprol Xl 200mg po daily, 05/09 Aldactone 12.5mg po daily In your professional opinion, can you please clarify the acuity and type of CHF if known? [x ] Chronic Systolic Heart Failure (reduced EF) [ ] Other, please specify [ ] Unable to determine (Template Last Revised: May 2020) MTDD
[2024-05-12 11:30] LABS: Glucose,Whole Blood 160 mg/dL (70-110)
[2024-05-12] MEDS ORDERED: ALPRAZolam 0.25 MG TAB PO PRN (11:39)
[2024-05-12] MEDS ORDERED: NITROGLYCERIN SL TABS 0.4 MG TAB SUBLINGUAL PRN (11:39)
[2024-05-12] MEDS ORDERED: ALPRAZolam 0.5 MG TAB PO PRN (11:39)
[2024-05-12 11:51] VITALS: BMI 36.2
[2024-05-12] MEDS: ASPIRIN 325 MG TAB PO STA (11:54)
[2024-05-12] MEDS: ATORVASTATIN 80 MG TAB PO STA (11:55)
[2024-05-12 11:58] LABS: African American GFR (CKD) >90 (>60 ml/min/1.73 sqM); Anion Gap 8 mmol/L; Blood Urea Nitrogen 17 mg/dL (9-20); Calcium 8.9 mg/dL (8.4-10.2); Carbon Dioxide 27 mmol/L (22-30); Chloride 104 mmol/L (98-107); Glucose 163 mg/dL (74-99); Non-African American GFR(CKD) 82 (>60 ml/min/1.73 sqM); Potassium 4.3 mmol/L (3.5-5.1); Sodium 139 mmol/L (137-145)
--- NOTE | 2024-05-12 13:04 | P.PN ---
Subjective HISTORY OF PRESENT ILLNESS: 44-year-old male with past ministry of severe CAD status post multiple stenting, ischemic cardiomyopathy, AICD, hypertension, SP, poorly controlled diabetes, right BKA. He is known to Dr. Orlando. On April 29 patient underwent a PCI of his mid RCA and PLV branch. 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 He had prior dane nting to his LAD which were patent. This time he presented to the hospital because of increased worsening chest pressure with mild to moderate exertion while helping her daughter. Admission Cardiac Labs: Troponin 0.06, 0.068, 0.148. BUN 20, creatinine 1.02, Hb 15.7, Admission testing: EKG shows sinus rhythm, mild IVCD, anterior Q waves, no significant ST-T wave changes concerning for ischemia 05/11/2024 Patient examined this morning at the bedside. Patient continues to report episodes of chest discomfort at the time of examination. He denies any shortness of breath. He remains on IV heparin. Bedside telemetry reveals sinus mechanism. 05/12/2024 Patient examined this morning at the bedside. Patient currently denies shortness of breath. He continues to report chest discomfort. He currently rates his pain 8/10. He states it is a burning type sensation. He remains on IV heparin. PHYSICAL EXAM: VITAL SIGNS: Reviewed. GENERAL: Well-developed in no acute distress. NECK: Supple. No JVD or thyromegaly LUNGS: Respirations even and unlabored. Lungs essentially clear to auscultation bilaterally. HEART: Regular rate and rhythm. S1 and S2 heard. EXTREMITIES: Normal range of motion. No clubbing or cyanosis. Peripheral pulses intact. Right BKA. ASSESSMENT: # NSTEMI # Severe CAD status post multiple PCI. 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 Patent LAD stents. Recent PCI to mid RCA and PL branch # Dyslipidemia # Type 2 diabetes # Obesity # Right BKA PLAN: Continue current cardiac medications Continue IV heparin Patient to undergo cardiac catheterization today with Dr. Hernandez Further recommendations pending patient course Nurse practitioner note has been reviewed by physician. Signing provider agrees with the documented findings, assessment, and plan of care documented by [employer] as a scribe. Objective - Vital Signs Vital signs: Vital Signs Temp 98.1 F 05/12/24 11:53 Pulse 63 05/12/24 11:53 Resp 18 05/12/24 11:53 BP 111/71 01/21/25 11:53 Pulse Ox 100 05/12/24 11:53 FiO2 Intake & Output 05/11/24 05/12/24 05/12/24 18:59 06:59 18:59 Intake Total 480 717 Balance 480 717 Weight 121.2 kg 121.2 kg Intake: Oral 480 717 Other: Voiding Method Toilet Toilet Toilet - Labs CBC & Chem 7: 05/10/24 06:51 05/12/24 10:47 Labs: Abnormal Lab Results - Last 24 Hours (Table) 05/11/24 05/12/24 05/12/24 Range/Units 16:14 06:08 10:47 APTT 48.4 H (22.0-30.0) sec Glucose (74-99) mg/dL POC Glucose (mg/dL) 190 H 153 H (70-110) mg/dL 05/12/24 05/12/24 Range/Units 10:47 11:27 APTT (22.0-30.0) sec Glucose 163 H (74-99) mg/dL POC Glucose (mg/dL) 160 H (70-110) mg/dL
[2024-05-12] MEDS: SODIUM CHLORIDE 0.9% 500 ML 500 ML IV ONE (13:07)
[2024-05-12] MEDS: LIDOCAINE 1% INJ 10MG/ML (20 ML MDV) SQ ONE (13:09)
[2024-05-12] MEDS: MIDAZOLAM 2 MG/2 ML VIAL IVP ONE (13:22)
[2024-05-12] MEDS: fentaNYL (PF) 50 MCG/ML 2 ML AMP IVP ONE (13:22)
[2024-05-12] MEDS: HEPARIN SODIUM 1,000 UN/ML (10ML VL) IVP ONE (13:40)
[2024-05-12] MEDS: IOPAMIDOL-370 100ML BTL INJ ONE (14:08)
[2024-05-12] MEDS: HEPARIN SODIUM,PORCINE 10,000 UNIT in SODIUM CHLORIDE 0.9% 1,000 ML IRRIGATION PRN (14:09)
[2024-05-12] MEDS: HEPARIN SODIUM,PORCINE (1 ML) 2,500 UNIT in SODIUM CHLORIDE 0.9% 250 ML IRRIGATION PRN (14:09)
[2024-05-12] MEDS ORDERED: RX INFO: IV CONTRAST WAS GIVEN 1 EACH MISC MISCELLANE PRN (14:10)
[2024-05-12] MEDS ORDERED: MAG HYDROX/AL HYDROX/SIMETH 30 ML CUP PO PRN (14:10)
[2024-05-12] MEDS ORDERED: ZOLPIDEM 5 MG TAB PO PRN (14:10)
[2024-05-12] MEDS ORDERED: ATROPINE SULFATE 0.1 MG/ML 10ML SYRINGE IV PRN (14:10)
[2024-05-12] MEDS: SODIUM CHLORIDE 0.9% 1,000 ML in EMPTY BAG 1 BAG IV SCH ×2 (15:51→15:56)
[2024-05-12 16:36] LABS: Glucose,Whole Blood 217 mg/dL (70-110)
--- NOTE | 2024-05-12 20:45 | P.PCN ---
Date of Procedure: 05/12/24 Operative Findings: Cardiac catheterization and percutaneous coronary intervention Performing physician MD Danya Velazquez MD Procedure performed 1. Selective right and left coronary angiogram 2. Left heart catheterization 3. Successful angioplasty of the mid right coronary artery using noncompliant balloon and lithotripsy balloon with adjunctive use of IVUS 4. Ultrasound-guided access of the right common femoral artery and right common femoral vein and selective right common femoral artery angiogram Indication This is a 44-year-old gentleman with known CAD and prior angioplasty of the left coronary system and known PILOT of the left circumflex as well as prior angioplasty of the right coronary artery who was admitted to the hospital with chest discomfort and continues to have ongoing chest discomfort in spite of maximized medical treatment Approach Right common femoral artery Complication None Level of sedation Moderate with sedation length of about 30 minutes Procedure description After obtaining informed consent the patient was brought to the cardiac Rn Surgery. The right common femoral artery was cannulated using appropriate technique under ultrasound guidance and micropuncture wire passed easily then I placed a 16 [place]gu[place] 11 cm sheath at the right common femoral artery. After that the right common femoral vein was accessed because the patient did not have any access to any peripheral vein using micropuncture technique under ultrasound guidance the micropuncture wire passed easily then I placed a 4 Anguillan 11 cm sheath at the right common femoral vein. Selective right and left coronary angiogram performed using JR4 and JL 4 catheters. Left heart catheterization was performed using the JR4 catheter which crossed the aortic valve then I did pullback across the valve. After that I decided to intervene on the RCA. Anticoagulation was initiated using heparin with continuous ACT monitoring. Subsequently I did engage the RCA using Junior the right guiding catheter. I did wire the RCA using a Runthrough wire. Intravascular ultrasound was performe d to the proximal RCA only because the catheter did not cross the mid RCA. At that point I decided to do angioplasty of the RCA using initially 2 mm noncompliant balloon and subsequently 2.5 mm lithotripsy balloon and then a 3.0 mm NC balloon. Final angiogram showed reasonable angiographic results with reduction of stenosis from about 80% to about 30 or 40%. The procedure was completed with no complication. Selective right common femoral artery angiogram was performed and showed that the sheath entry was in the middle of the common femoral artery and for that reason Angio-Seal was performed. Selective coronary angiogram The RCA Large-caliber vessel and dominant vessel with severe disease appears to be severe in-stent restenosis involving multiple layers of stent in the mid RCA distal to the PDA takeoff. The left main appeared to have mild disease only The LCx is chronically occluded. The LAD is a large-caliber vessel with patent stent in the mid and distal LAD and patent stent in the diagonal branch of the LAD as well Hemodynamics The LVEDP was 18 mmHg with no significant gradient across the aortic valve Conclusion 1. Patent stent in the LAD/diagonal system 2. PILOT of the LCx. The LCx fills by contralateral collaterals 3. Severe in-stent restenosis involving the mid RCA with multiple layers of stent. I did perform successful balloon angioplasty only with no stenting of the RCA 4. Mildly elevated left-sided filling pressure Postprocedure management Continue aggressive cholesterol control and risk factors modification and dual antiplatelet therapy for at least 12 months if not permanently
[2024-05-12 20:50] LABS: Glucose,Whole Blood 172 mg/dL (70-110)
[2024-05-12 21:03] VITALS: TEMP 97.3
[2024-05-13 04:27] VITALS: RESP 16
[2024-05-13 06:07] LABS: Glucose,Whole Blood 273 mg/dL (70-110)
[2024-05-13 07:19] LABS: Anisocytosis Slight; Basophils # (A) 0.1 k/uL (0-0.2); Basophils % (A) 1 %; Eosinophils # (A) 0.3 k/uL (0-0.7); Eosinophils % (A) 3 %; HCT 46.8 % (39.0-53.0); HGB 14.8 gm/dL (13.0-17.5); Hypochromasia Slight; Lymphocytes # (A) 2.4 k/uL (1.0-4.8); Lymphocytes % (A) 26 %; MCH 24.2 pg (25.0-35.0); MCHC 31.6 g/dL (31.0-37.0); MCV 76.5 fL (80.0-100.0); Microcytosis Slight; Monocytes # (A) 0.7 k/uL (0-1.0); Monocytes % (A) 7 %; Neutrophils # (A) 5.7 k/uL (1.3-7.7); Neutrophils % (A) 61 %; Platelet Count 270 k/uL (150-450); RBC 6.12 m/uL (4.30-5.90); RDW 16.3 % (11.5-15.5); WBC 9.4 k/uL (3.8-10.6)
[2024-05-13 07:39] LABS: African American GFR (CKD) >90 (>60 ml/min/1.73 sqM); Anion Gap 9 mmol/L; Blood Urea Nitrogen 21 mg/dL (9-20); Calcium 9.1 mg/dL (8.4-10.2); Carbon Dioxide 26 mmol/L (22-30); Chloride 102 mmol/L (98-107); Glucose 199 mg/dL (74-99); Non-African American GFR(CKD) 81 (>60 ml/min/1.73 sqM); Potassium 4.2 mmol/L (3.5-5.1); Sodium 137 mmol/L (137-145)
[2024-05-13 08:48] VITALS: PULSE 72
--- NOTE | 2024-05-13 09:47 | P.PN ---
Subjective Progress Note Date: 05/12/24 05/12/2024: Patient was seen for a follow-up. Patient is laying comfortably in the bed. Offers no new complaints. 05/11/2024: Patient was initially seen by Dr. Aggarwal. Please refer to her note for details. Patient with history of CAD, ischemic cardiomyopathy, diabetes who presented to ED with chest pain and diagnosed with non-STEMI. Patient also has left-sided weakness, arm > leg. Code stroke was called. Head CT negative and CTA negative. MRI was ordered. Symptoms started on waking up on the day of admission on 05/08/2024. Patient has history of smoking one 4 pack/day for 20 years., Quit in 2014. He has diabetes since 2012. Objective - Vital Signs Vital signs: Vital Signs Temp 98.1 F 05/12/24 11:53 Pulse 71 05/12/24 17:13 Resp 18 05/12/24 17:13 BP 117/66 05/12/24 17:13 Pulse Ox 98 05/12/24 17:13 FiO2 Intake & Output 05/11/24 05/12/24 05/12/24 18:59 06:59 18:59 Intake Total 480 717 250 Balance 480 717 250 Weight 121.2 kg 121.2 kg Intake: IV 250 Oral 480 717 Other: Voiding Method Toilet Toilet Toilet # Voids 1 - Exam On examination patient is alert and awake in no distress. Speech and language functions are normal. On cranial nerve examination, patient has left facial droop. Visual hauser are full. Extraocular muscles intact. Tongue protrudes to midline. On muscle strength testing, there is left pronator drift about 15 degree. Biceps, triceps and deltoids are normal, hospitalist nocturnist physician is 5 on the right, 4 left. Left leg is normal. Sensory decreased on the left side with neglect on the left. No ataxia for bmicox-yc-olbu testing. Patient has right BKA - Labs CBC & Chem 7: 05/13/24 07:00 05/13/24 07:00 Labs: Abnormal Lab Results - Last 24 Hours (Table) 05/12/24 05/12/24 05/12/24 Range/Units 06:08 10:47 10:47 APTT 48.4 H (22.0-30.0) sec Glucose 163 H (74-99) mg/dL POC Glucose (mg/dL) 153 H (70-110) mg/dL 05/12/24 05/12/24 Range/Units 11:27 16:33 APTT (22.0-30.0) sec Glucose (74-99) mg/dL POC Glucose (mg/dL) 160 H 217 H (70-110) mg/dL Assessment and Plan Assessment: The patient is a 44-year-old male presented with signs and symptoms consistent with coronary artery disease/myocardial infarction. In addition to his cardiac abnormalities, the patient complained of left upper extremity weakness. Stroke workup was initiated. On examination today, the patient has a left facial droop, left upper and lower extremity weakness, suspicious for right cerebral ischemia 1. Possible CVA with left-sided weakness. 2. NSTEMI 3. Coronary artery disease 4. Diabetes, poorly controlled 5. Obstructive sleep apnea 6. Hypertension 7. AICD placement 8. History of right BKA 9. Ex tobacco use Plan: 1. Patient is neurologically stable. 2. Repeat CT head performed today showed no acute intracranial process. I personally reviewed CT head, agree with the findings. 3. 2D echo with bubble study revealed LVEF 35%. Moderately increased left ventricular diastolic volume. Severely increased left ventricular systolic volume. Global hypokinesis. Negative agitated saline bubble study for [id number] shunt. 4. Patient underwent cardiac catheterization today. Patient had angioplasty performed. 5. CTA of head and neck 04/25/2021 was read as "negative". 6. Hemoglobin A1c 9.0. Recommend optimize control of diabetes to target A1c <7.0 7. Lipid panel with cholesterol 170, LDL 80, HDL 36 and triglycerides 267. Continue Lipitor 80 mg daily. 8. Continue aspirin 81 mg and Brilinta 90 mg twice daily. At home patient was taking aspirin 81 mg, Brilinta 90 mg twice daily and Xarelto. Patient currently on heparin IV drip for non-STEMI and Xarelto is on hold. 9. Cardiology following.
[2024-05-13 11:18] VITALS: BP 111/75
[2024-05-13 11:50] LABS: Glucose,Whole Blood 216 mg/dL (70-110)
--- NOTE | 2024-05-13 13:20 | P.PN ---
Subjective HISTORY OF PRESENT ILLNESS: 44-year-old male with past ministry of severe CAD status post multiple stenting, ischemic cardiomyopathy, AICD, hypertension, SP, poorly controlled diabetes, right BKA. He is known to Dr. Orlando. On April 29 patient underwent a PCI of his mid RCA and PLV branch. 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 He had prior dane nting to his LAD which were patent. This time he presented to the hospital because of increased worsening chest pressure with mild to moderate exertion while helping her daughter. Admission Cardiac Labs: Troponin 0.06, 0.068, 0.148. BUN 20, creatinine 1.02, Hb 15.7, Admission testing: EKG shows sinus rhythm, mild IVCD, anterior Q waves, no significant ST-T wave changes concerning for ischemia 05/11/2024 Patient examined this morning at the bedside. Patient continues to report episodes of chest discomfort at the time of examination. He denies any shortness of breath. He remains on IV heparin. Bedside telemetry reveals sinus mechanism. 05/12/2024 Patient examined this morning at the bedside. Patient currently denies shortness of breath. He continues to report chest discomfort. He currently rates his pain 8/10. He states it is a burning type sensation. He remains on IV heparin. 05/13/2024 Patient underwent cardiac catheterization yesterday with Dr. Hernandez. Patient underwent balloon angioplasty of the RCA. Patient examined this morning at bedside. Patient states he is feeling better today. He continues to report mild chest discomfort but significantly improved from yesterday. Vital signs are stable. PHYSICAL EXAM: VITAL SIGNS: Reviewed. GENERAL: Well-developed in no acute distress. NECK: Supple. No JVD or thyromegaly LUNGS: Respirations even and unlabored. Lungs essentially clear to auscultation bilaterally. HEART: Regular rate and rhythm. S1 and S2 heard. EXTREMITIES: Normal range of motion. No clubbing or cyanosis. Peripheral pulses intact. Right BKA. ASSESSMENT: # NSTEMI, s/p cardiac catheterization with balloon angioplasty of the RCA # Severe CAD status post multiple PCI. Residual known MERCHANT SEAMAN of RCA. Patent LAD stents. Recent PCI to mid RCA and PL branch # Dyslipidemia # Type 2 diabetes # Obesity # Right BKA PLAN: Continue current cardiac medications Patient is stable for discharge home today from a cardiac standpoint Patient to follow-up postdischarge with Dr. Hernandez Nurse practitioner note has been reviewed by physician. Signing provider agrees with the documented findings, assessment, and plan of care documented by TIE KNITTER HELPER as a scribe. Objective - Vital Signs Vital signs: Vital Signs Temp 97.3 F L 05/12/24 21:01 Pulse 72 05/13/24 11:17 Resp 16 05/13/24 11:17 BP 111/75 05/13/24 11:17 Pulse Ox 99 05/13/24 11:17 FiO2 Intake & Output 05/12/24 05/13/24 05/13/24 18:59 06:59 18:59 Intake Total 250 480 240 Balance 250 480 240 Weight 121.2 kg 123.5 kg Intake: IV 250 Oral 480 240 Other: Voiding Method Toilet Toilet Toilet # Voids 1 1 - Labs CBC & Chem 7: 05/13/24 07:00 05/13/24 07:00 Labs: Abnormal Lab Results - Last 24 Hours (Table) 05/12/24 05/12/24 05/13/24 Range/Units 16:33 20:48 06:06 RBC (4.30-5.90) m/uL MCV (80.0-100.0) fL MCH (25.0-35.0) pg RDW (11.5-15.5) % BUN (9-20) mg/dL Glucose (74-99) mg/dL POC Glucose (mg/dL) 217 H 172 H 273 H (70-110) mg/dL 05/13/24 05/13/24 05/13/24 Range/Units 07:00 07:00 11:48 RBC 6.12 H (4.30-5.90) m/uL MCV 76.5 L (80.0-100.0) fL MCH 24.2 L (25.0-35.0) pg RDW 16.3 H (11.5-15.5) % BUN 21 H (9-20) mg/dL Glucose 199 H (74-99) mg/dL POC Glucose (mg/dL) 216 H (70-110) mg/dL
--- NOTE | 2024-05-13 13:30 | US ---
EXAMINATION TYPE: US carotid duplex BILAT DATE OF EXAM: 05/13/2024 COMPARISON: NONE CLINICAL INDICATION: Male, 44 years old with history of Stroke/TIA; Additional History: .... TECHNIQUE: Grayscale, color Doppler and spectral Doppler evaluation of the bilateral carotid systems and vertebral arteries. Indirect Doppler criteria was utilized. FINDINGS: EXAM MEASUREMENTS: RIGHT: Peak Systolic Velocity (PSV) cm/sec ----- Right CCA: 108 ----- Right ICA: 70.7 ----- Right ECA: 91.8 ICA/CCA ratio: 0.7 RIGHT: End Diastole cm/sec ----- Right CCA: 19.5 ----- Right ICA: 14.7 ----- Right ECA: 13.1 LEFT: Peak Systolic Velocity (PSV) cm/sec ----- Left CCA: 87.8 ----- Left ICA: 80.3 ----- Left ECA: 103 ICA/CCA ratio: 0.9 LEFT: End Diastole cm/sec ----- Left CCA: 15.5 ----- Left ICA: 19.3 ----- Left ECA: 12.1 VERTEBRALS (direction of flow): Right Vertebral: Antegrade Left Vertebral: Antegrade Rhythm: Normal [employer] NOTES: No elevated velocities, plaque or significant stenosis seen bilateral Color Doppler imaging shows patency with blood flow throughout the carotid artery. Spectral waveforms are within normal limits. IMPRESSION: Right: No hemodynamically significant stenosis. Left: No hemodynamically significant stenosis. Criteria for Assigning % of Stenosis / Diameter reduction (Estimation based on the indirect measurements of the internal carotid artery velocities (ICA PSV). 1. Normal (no stenosis)=ICA PSV < 125 cm/s: ratio < 2.0: ICA EDV<40 cm/s. 2. Less than 50% stenosis=ICA PSV < 125 cm/s: ratio < 2.0: ICA EDV<40 cm/s. 3. 50 to 69% stenosis=ICA PSV of 125 to 230 cm/s: ration 2.0 ? 4.0: ICA EDV 40-100 cm/s. 4. Greater than 70% stenosis to near occlusion= ICA PSV > 230 cm/s: ratio > 4.0: ICA EDV > 100 cm/s. 5. Near occlusion= ICA PSV velocities may be low or undetectable: variable ratio and ICA EDV. 6. Total occlusion=unable to detect flow. [facility], , 05/13/2024 1:28 PM
[2024-05-14] MEDS ORDERED: NON FORMULARY DRUG (Semaglutide [Ozempic] 1 MG/0.75 ML Each) SQ SCH (09:00)
== END 2024-05-13 14:24 | disposition home or self-care (01) | DRG 174 ==
LOC: EC 13:37 → 3SCARD 21:54
PROVIDERS: ADMIT Internal Medicine; ATTEND Internal Medicine
PROC: B2111ZZ Fluoroscopy of Multiple Coronary Arteries using Low Osmolar Contrast (ICD-10-PCS; principal; 2024-05-12 11:25)
PROC: 02F03ZZ Fragmentation in Coronary Artery, One Artery, Percutaneous Approach (ICD-10-PCS; principal; 2024-05-12 11:25)
PROC: B240ZZ3 Ultrasonography of Single Coronary Artery, Intravascular (ICD-10-PCS; principal; 2024-05-12 11:25)
PROC: 02703ZZ Dilation of Coronary Artery, One Artery, Percutaneous Approach (ICD-10-PCS; principal; 2024-05-12 11:25)
PROC: 4A023N7 Measurement of Cardiac Sampling and Pressure, Left Heart, Percutaneous Approach (ICD-10-PCS; principal; 2024-05-12 11:25)
DX: I21.4 Non-ST elevation (NSTEMI) myocardial infarction (principal); G47.33 Obstructive sleep apnea (adult) (pediatric); I11.0 Hypertensive heart disease with heart failure; Z79.4 Long term (current) use of insulin; E11.42 Type 2 diabetes mellitus with diabetic polyneuropathy; Z79.84 Long term (current) use of oral hypoglycemic drugs; E66.9 Obesity, unspecified; Z68.36 Body mass index [BMI] 36.0-36.9, adult; I67.82 Cerebral ischemia; T82.855A Stenosis of coronary artery stent, initial encounter; E78.5 Hyperlipidemia, unspecified; M54.9 Dorsalgia, unspecified; G89.29 Other chronic pain; F32.A Depression, unspecified; R29.810 Facial weakness; F41.9 Anxiety disorder, unspecified; I25.10 Atherosclerotic heart disease of native coronary artery without angina pectoris; I25.2 Old myocardial infarction; I25.5 Ischemic cardiomyopathy; I50.22 Chronic systolic (congestive) heart failure; Z87.891 Personal history of nicotine dependence; Z79.01 Long term (current) use of anticoagulants; Z79.02 Long term (current) use of antithrombotics/antiplatelets; Z79.82 Long term (current) use of aspirin; Z79.899 Other long term (current) drug therapy; Z86.73 Personal history of transient ischemic attack (TIA), and cerebral infarction without residual deficits; Z95.810 Presence of automatic (implantable) cardiac defibrillator; Z89.511 Acquired absence of right leg below knee; Z71.3 Dietary counseling and surveillance; Z95.5 Presence of coronary angioplasty implant and graft
CPT/HCPCS: 36415; 70450; 71046; 80048; 80053; 80061; 83036; 83735; 84443; 84484; 85025; 85379; 85610; 85730; 92920; 92972; 92978; 93005; 93308; 93458; 93880; 96365; 96366; 96375; 96376; 99285

== ENCOUNTER 2024-05-17 19:41 | Observation (INO) | payer OTHER ==
--- NOTE | 2024-05-17 19:50 | ED ---
Chest Pain HPI - General Stated Complaint: Chest Pain Time Seen by Provider: 05/17/24 19:45 Source: RN notes reviewed, old records reviewed Mode of arrival: EMS Limitations: no limitations - History of Present Illness Initial Comments: This is a 44-year-old male to the ER for evaluation of chest pain history of recent stent placement, transferred to us from outside facility for elevated troponin and chest pain MD Complaint: chest pain -: hour(s) Onset: during rest Pain Location: left chest Pain Radiation: LUE Severity: moderate Quality: tightness, heaviness Consistency: constant Improves With: nothing Worsens With: nothing Anginal Symptoms: dyspnea, sense of impending doom Other Symptoms: palpitations Treatments Prior to Arrival: none - Related Data Home Medications Medication Instructions Recorded Confirmed Insulin NPH Hum/Reg Insulin Hm 60 unit SQ BID 12/07/21 05/08/24 [humuLIN 70/30 Kwikpen] Ranolazine [Ranexa] 1,000 mg PO BID 03/11/24 05/08/24 Semaglutide [Ozempic] 1 mg SQ TH 03/11/24 05/08/24 Lidocaine 4% Patch 1 patch TRANSDERM DAILY 05/08/24 05/08/24 Previous Rx's Medication Instructions Recorded Aspirin 81 mg PO DAILY #30 07/15/21 Nitroglycerin Sl Tabs [Nitrostat] 0.4 mg SUBLINGUAL Q5M PRN #30 tab 07/15/21 oxyCODONE HCL/ACETAMINOPHEN 1 tab PO Q6HR PRN 3 Days #12 tab 03/26/24 [Percocet 5-325 mg] Ezetimibe [Zetia] 10 mg PO DAILY #90 tab 04/11/24 Mag Hydrox/Al Hydrox/Simeth 30 ml PO Q4HR PRN ml 04/11/24 [Maalox] Spironolactone [Aldactone] 12.5 mg PO DAILY #30 tablet 04/11/24 Colchicine [Colcrys] 0.6 mg PO DAILY #30 each 05/02/24 Atorvastatin [Lipitor] 80 mg PO HS #30 tab 05/13/24 Empagliflozin [Jardiance] 25 mg PO DAILY #30 tab 05/13/24 Isosorbide Mononitrate ER [Imdur] 120 mg PO DAILY #60 tab 05/13/24 Metoprolol Succinate [Toprol XL] 200 mg PO DAILY #30 tab 05/13/24 Rivaroxaban [Xarelto] 2.5 mg PO BID #60 tab 05/13/24 Sacubitril/Valsartan [Entresto 49 1 tab PO BID #60 tab 05/13/24 mg-51 mg Tablet] Ticagrelor [Brilinta] 90 mg PO BID #60 tab 05/13/24 amLODIPine [Norvasc] 2.5 mg PO DAILY #30 tab 05/13/24 Allergies Allergy/AdvReac Type Severity Reaction Status Date / Time Penicillins Allergy Unknown Verified 05/17/24 19:53 Childhood Review of Systems ROS Statement: Those systems with pertinent positive or pertinent negative responses have been documented in the HPI. ROS Other: All systems not noted in ROS Statement are negative. EKG Findings - EKG Comments: EKG Findings:: EKG sinus 75 OH 206 QRS 137 QTc 418 - EKG Results: EKG: interpreted by AKHIL Past Medical History Past Medical History: Coronary Artery Disease (CAD), Chest Pain / Angina, Heart Failure, Diabetes Mellitus, Hyperlipidemia, Hypertension, Myocardial Infarction (MD), Sleep Apnea/CPAP/BIPAP, Syncope Additional Past Medical History / Comment(s): AICD. IDDM type II. Neuropathy bilateral feet. 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 Migraines. Chronic back pain. R BKA (done 2023). Last Myocardial Infarction Date:: 2023 History of Any Multi-Drug Resistant Organisms: None Reported Past Surgical History: AICD, Heart Catheterization, Heart Catheterization With Stent, Orthopedic Surgery Additional Past Surgical History / Comment(s): 10/27/12 AICD, DFTs, PCI with 2 stents, R BKA. Past Anesthesia/Blood Transfusion Reactions: No Reported Reaction Date of Last Stent Placement:: 02/03/16 Type of Cardiac Device: AICD Device Placement Date:: 2012 Past Psychological History: Anxiety, Depression Additional Psychological History / Comment(s): rajesh . Smoking Status: Former smoker Past Alcohol Use History: None Reported Additional Past Alcohol Use History / Comment(s): quit in 2019 about 1/2 ppd Past Drug Use History: None Reported - Past Family History Mother Family Medical History: No Reported History Brother(s) Family Medical History: Myocardial Infarction (MD) Father Family Medical History: Liver Disease Sister(s) Additional Family Medical History / Comment(s): Huntings disease General Exam General appearance: alert, in no apparent distress Head exam: Present: atraumatic, normocephalic, normal inspection Eye exam: Present: normal appearance, PERRL, EOMI. Absent: scleral icterus, conjunctival injection, periorbital swelling ENT exam: Present: normal exam, mucous membranes moist Neck exam: Present: normal inspection. Absent: tenderness, meningismus, lymphadenopathy Respiratory exam: Present: normal lung sounds bilaterally. Absent: respiratory distress, wheezes, rales, rhonchi, stridor Cardiovascular Exam: Present: regular rate, normal rhythm, normal heart sounds. Absent: systolic murmur, diastolic murmur, rubs, gallop, clicks GI/Abdominal exam: Present: soft, normal bowel sounds. Absent: distended, tenderness, guarding, rebound, rigid Extremities exam: Present: normal inspection, full ROM, normal capillary refill. Absent: tenderness, pedal edema, joint swelling, calf tenderness Back exam: Present: normal inspection Neurological exam: Present: alert, oriented X3, CN II-XII intact Psychiatric exam: Present: normal affect, normal mood Skin exam: Present: warm, dry, intact, normal color. Absent: rash Course Vital Signs 05/17/24 19:47 Temperature 98.1 F Pulse Rate 69 Respiratory 18 Rate Blood Pressure 135/82 O2 Sat by Pulse 98 Oximetry - Reevaluation(s) Reevaluation #1: 05/17/24 21:03 Medical record is reviewed Reevaluation #2: 05/17/24 21:03 Patient symptoms unchanged Reevaluation #3: 05/17/24 21:03 Patient still with chest pain Reevaluation #4: Was pt. sent in by a medical professional or institution (, PA, ACTUARIAL INTERN, urgent care, hospital, or assisted...) When possible be specific @ -no Did you speak to anyone other than the patient for history (EMS, parent, family, police, friend...)? What history was obtained from this source @ -no Did you review nursing and triage notes (agree or disagree)? Why? @ -agree Are old charts reviewed (outside hosp., previous admission, EMS record, old EKG, old radiological studies, urgent care reports/EKG's, assisted records)? Report findings @ -yes Differential Diagnosis (chest pain, altered mental status, abdominal pain women, abdominal pain men, vaginal bleeding, weakness, fever, dyspnea, syncope, headache, dizziness, GI bleed, back pain, seizure, CVA, palpatations, mental health, musculoskeletal)? @ -prior EKG interpreted by me (3pts min.). @ -yes X-rays interpreted by me (1pt min.). @ -yes negative for acute disease CT interpreted by me (1pt min.). @ -no U/S interpreted by me (1pt. min.). @ -no What testing was considered but not performed or refused? (CT, X-rays, U/S, labs)? Why? @ -none What meds were considered but not given or refused? Why? @ -none Did you discuss the management of the patient with other professionals (professionals i.e. , PA, ACTUARIAL INTERN, lab, RT, psych nurse, social services counselor, business lawyer, teacher, aboriginal home school liaison officer, rehabilitation case coordinator)? Give summary @ -no Was smoking cessation discussed for >3mins.? @ -no Was critical care preformed (if so, how long)? @ -no Were there social determinants of health that impacted care today? How? (Homelessness, low income, unemployed, alcoholism, drug addiction, tra nsportation, low edu. Level, literacy, decrease access to med. care, skilled nursing, rehab)? @ -none Was there de-escalation of care discussed even if they declined (Discuss DNR or withdrawal of care, Hospice)? DNR status @ -no What co-morbidities impacted this encounter? (DM, HTN, Smoking, COPD, CAD, Cancer, CVA, ARF, Chemo, Hep., AIDS, mental health diagnosis, sleep apnea, morbid obesity)? @ -none Was patient admitted / discharged? Hospital course, mention meds given and route, prescriptions, significant lab abnormalities, going to OR and other pertinent info. @ - Undiagnosed new problem with uncertain prognosis? @ -no Drug Therapy requiring intensive monitoring for toxicity (Heparin, Nitro, Insulin, Cardizem)? @ -no Were any procedures done? @ -no Diagnosis/symptom? @ - Acute, or Chronic, or Acute on Chronic? @ -Acute Uncomplicated (without systemic symptoms) or Complicated (systemic symptoms)? @ -Complicated Side effects of treatment? @ -no Exacerbation, Progression, or Severe Exacerbation? @ -exacerbation Poses a threat to life or bodily function? How? (Chest pain, USA, MD, pneumonia, PE, COPD, DKA, ARF, appy, cholecystitis, CVA, Diverticulitis, Homicidal, Suicidal, threat to staff... and all critical care pts) @ -yes Reevaluation #5: Differential Chest Pain: Stable Angina, Unstable Angina, STEMI, NSTEMI Aortic Dissection, Pneumothorax, Musculoskeletal, Esophageal Spasm GERD, Cholecystitis, Pancreatitis, Zoster, this is not meant to be an all-inclusive list. - Consultations Consultation #1: Spoke with admitting physicians who agreed to admit this patient Chest Pain MDM - MDM 44 male to ER with acute ACS, chest pain elevated troponin recent stent placement Critical Care Time Critical Care Time: Yes Total Critical Care Time: 31 Disposition Clinical Impression: Chest pain, NSTEMI (non-ST elevated myocardial infarction), Unstable angina pectoris Disposition: ADMITTED IP TO THIS HOSP Condition: Serious Is patient prescribed a controlled substance at d/c from ED?: No Referrals: None,Stated [Primary Care Provider] - 1-2 days Time of Disposition: 21:00
[2024-05-17] MEDS: SODIUM CHLORIDE 0.9% 1,000 ML IV STA (20:00)
[2024-05-17] MEDS: MORPHINE SULFATE 4 MG/ML SYRINGE IV STA (20:01)
[2024-05-17] MEDS: ONDANSETRON 4 MG/2 ML VIAL IVP STA (20:01)
[2024-05-17 20:34] LABS: Basophils # (A) 0.1 k/uL (0-0.2); Basophils % (A) 1 %; Eosinophils # (A) 0.3 k/uL (0-0.7); Eosinophils % (A) 4 %; HCT 44.6 % (39.0-53.0); HGB 14.4 gm/dL (13.0-17.5); Lymphocytes # (A) 2.6 k/uL (1.0-4.8); Lymphocytes % (A) 31 %; MCHC 32.3 g/dL (31.0-37.0); MCV 74.3 fL (80.0-100.0); Mean Platelet Volume 7.4; Microcytosis Slight; Monocytes # (A) 0.6 k/uL (0-1.0); Monocytes % (A) 7 %; Neutrophils # (A) 4.8 k/uL (1.3-7.7); Neutrophils % (A) 56 %; Platelet Count 246 k/uL (150-450); RBC 6.01 m/uL (4.30-5.90); WBC 8.5 k/uL (3.8-10.6)
[2024-05-17 20:51] LABS: ALT 31 U/L (4-49); AST 30 U/L (17-59); African American GFR (CKD) >90 (>60 ml/min/1.73 sqM); Albumin 3.8 g/dL (3.5-5.0); Alkaline Phosphatase 59 U/L (38-126); Anion Gap 8 mmol/L; Blood Urea Nitrogen 14 mg/dL (9-20); Calcium 8.8 mg/dL (8.4-10.2); Carbon Dioxide 20 mmol/L (22-30); Chloride 108 mmol/L (98-107); Glucose 103 mg/dL (74-99); Lipase 49 U/L (23-300); Magnesium 2.3 mg/dL (1.6-2.3); Non-African American GFR(CKD) >90 (>60 ml/min/1.73 sqM); Sodium 136 mmol/L (137-145); Total Bilirubin 1.1 mg/dL (0.2-1.3); Total Protein 6.9 g/dL (6.3-8.2)
[2024-05-17 20:57] LABS: Potassium 4.8 mmol/L (3.5-5.1)
--- NOTE | 2024-05-17 20:57 | XR ---
EXAMINATION TYPE: XR chest 1V portable DATE OF EXAM: 05/17/2024 8:47 PM COMPARISON: Prior chest radiograph 05/08/2024. CLINICAL INDICATION: Male, 44 years old with history of chest pain; [facility] TECHNIQUE: XR chest 1V portable Frontal view of the chest. FINDINGS: Lungs/Pleura: There is no evidence of pleural effusion, focal consolidation, or pneumothorax. Pulmonary vascularity: Unremarkable. Heart/mediastinum: Cardiomediastinal silhouette is unremarkable. Musculoskeletal: No acute osseous pathology. Other findings: None Lines/Tubes: Left chest wall cardiac AICD device with lead overlying the region of the right ventricle. IMPRESSION: No acute cardiopulmonary disease/process. [facility], , 05/17/2024 8:55 PM
[2024-05-17 20:58] LABS: NT-Pro-B-Type Natriuretic Pept 435 pg/mL
[2024-05-17 21:02] LABS: INR 0.9 (<1.2); Partial Thromboplastin Time 24.9 sec (22.0-30.0); Prothrombin Time 10.5 sec (10.0-12.5)
[2024-05-17] MEDS ORDERED: NALOXONE 0.4 MG/ML 1 ML VIAL IV PRN (21:04)
[2024-05-17] MEDS ORDERED: ONDANSETRON 4 MG/2 ML VIAL IVP PRN (21:04)
[2024-05-17] MEDS: HEPARIN SOD,PORK IN 0.45% NACL 25,000 UNIT in 0.45% NACL 1 250ML.BAG IV SCH (21:24)
[2024-05-17] MEDS: HEPARIN SODIUM 1,000 UN/ML (10ML VL) IV ONE (21:25)
[2024-05-17] MEDS: SODIUM CHLORIDE 0.9% 1,000 ML IV SCH (21:26)
[2024-05-18] MEDS: MORPHINE SULFATE 4 MG/ML SYRINGE IV PRN (00:33)
--- NOTE | 2024-05-18 02:19 | P.HPIM ---
History of Present Illness H&P Date: 05/17/24 Patient is a 44-year-old male with a PMH of CAD status post stents, systolic CHF EF 30 to 35% status post AICD placement, right BKA, SP on CPAP, type II DM, hypertension, hyperlipidemia, who was transferred from another facility where the patient had presented with complaints of chest discomfort. The patient reports that his symptoms started roughly around 10 AM today while he was trying to prepare for a green party at his home where he started to develop substernal chest tightness, 10 out of 10, nonradiating, with associated shortness of breath and nausea. Patient reports that the pain was severe which prompted him to seek medical attention. The patient was subsequently transferred to our facility. At the time of interview, he reports that his chest discomfort is a 1 out of 10 with no associated symptoms. Denied experiencing fever, chills, cough, nausea, vomiting, abdominal pain, diarrhea. In the emergency room an EKG revealed sinus rhythm with intraventricular conduction delay at 75 bpm with poor R wave progression as reviewed by me with QTc 418 ms chest x-ray was unremarkable. Laboratory evaluation was remarkable for troponin 0.077 and subsequently 0.058 with proBNP 435. Sodium was 136 chloride 108 CO2 20 with hemoglobin 14.4 and MCV 74.3. Of note, the patient is status post balloon angioplasty by Dr. Hernandez of [facility] on 05/12/2024. ED documentation reviewed and case discussed with ED provider. Review of systems: Pertinent positives and negatives as discussed in HPI, a complete review of systems was performed and all other systems are negative. Physical examination: Vital signs reviewed General: non toxic, no distress, appears at stated age, obese Derm: no unusual rashes/lesions, warm Head: atraumatic, normocephalic, symmetric Eyes: EOMI, no lid lag, anicteric sclera, pupils equal round reactive to light ENT: Nose and ears atraumatic Neck: No cervical lymphadenopathy, trachea midline, supple Mouth: no lip lesion, mucus membranes moist Cardiovascular: S1S2 reg, no murmur, right BKA Lungs: CTA bilateral, no rhonchi, no rales, no accessory muscle use Abdominal: soft, nontender to palpation, no guarding Ext: muscle strength 5 out of 5 in all 4 extremities grossly, R BKA, no gross muscle atrophy, no contractures, Neuro: CN II-XI grossly intact, no gross focal neuro deficits Psych: Alert, oriented, appropriate affect Assessment: Non-ST elation [place] Chronic conditions: Systolic CHF, type II DM, SP, hypertension, hyperlipidemia Imaging: In the emergency room an EKG revealed sinus rhythm with intraventricular conduction delay at 75 bpm with poor R wave progression as reviewed by me with QTc 418 ms chest x-ray was unremarkable. Data Review: Laboratory evaluation was remarkable for troponin 0.077 and subsequently 0.058 with proBNP 435. Sodium was 136 chloride 108 CO2 20 with hemoglobin 14.4 and MCV 74.3. Plan: Continue with heparin infusion Cardiology consulted Cardiac monitoring Continue with aspirin and statin Resume home medications once reconciled DVT prophylaxis: Heparin infusion The patient is admitted with an anticipated less than 2 midnight stay for evaluation of NSTEMI CODE STATUS: Full Code Discussed with: Patient Anticipated discharge place: Home Past Medical History Past Medical History: Coronary Artery Disease (CAD), Chest Pain / Angina, Heart Failure, Diabetes Mellitus, Hyperlipidemia, Hypertension, Myocardial Infarction ([place]), Sleep Apnea/CPAP/BIPAP, Syncope Additional Past Medical History / Comment(s): AICD. IDDM type II. Neuropathy bilateral feet. 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 Migraines. Chronic back pain. R BKA (done 2023). Last Myocardial Infarction Date:: 2023 History of Any Multi-Drug Resistant Organisms: None Reported Past Surgical History: AICD, Heart Catheterization, Heart Catheterization With Stent, Orthopedic Surgery Additional Past Surgical History / Comment(s): 10/27/12 AICD, DFTs, PCI with 2 stents, R BKA. Past Anesthesia/Blood Transfusion Reactions: No Reported Reaction Date of Last Stent Placement:: 02/03/16 Type of Cardiac Device: AICD Device Placement Date:: 2012 Past Psychological History: Anxiety, Depression Additional Psychological History / Comment(s): rajesh . Smoking Status: Former smoker Past Alcohol Use History: None Reported Additional Past Alcohol Use History / Comment(s): quit in 2019 about 1/2 ppd Past Drug Use History: None Reported - Past Family History Mother Family Medical History: No Reported History Brother(s) Family Medical History: Myocardial Infarction (AK) Father Family Medical History: Liver Disease Sister(s) Additional Family Medical History / Comment(s): Huntings disease Medications and Allergies Home Medications Medication Instructions Recorded Confirmed Type Aspirin 81 mg PO DAILY #30 07/15/21 05/08/24 Rx Nitroglycerin Sl Tabs [Nitrostat] 0.4 mg SUBLINGUAL Q5M PRN #30 tab 07/15/21 05/08/24 Rx Insulin NPH Hum/Reg Insulin Hm 60 unit SQ BID 12/07/21 05/08/24 History [humuLIN 70/30 Kwikpen] Ranolazine [Ranexa] 1,000 mg PO BID 03/11/24 05/08/24 History Semaglutide [Ozempic] 1 mg SQ TH 03/11/24 05/08/24 History oxyCODONE HCL/ACETAMINOPHEN 1 tab PO Q6HR PRN 3 Days #12 tab 03/26/24 05/08/24 Rx [Percocet 5-325 mg] Ezetimibe [Zetia] 10 mg PO DAILY #90 tab 04/11/24 05/08/24 Rx Mag Hydrox/Al Hydrox/Simeth 30 ml PO Q4HR PRN ml 04/11/24 05/08/24 Rx [Maalox] Spironolactone [Aldactone] 12.5 mg PO DAILY #30 tablet 04/11/24 05/08/24 Rx Colchicine [Colcrys] 0.6 mg PO DAILY #30 each 05/02/24 05/08/24 Rx Lidocaine 4% Patch 1 patch TRANSDERM DAILY 05/08/24 05/08/24 History Atorvastatin [Lipitor] 80 mg PO HS #30 tab 05/13/24 Rx Empagliflozin [Jardiance] 25 mg PO DAILY #30 tab 05/13/24 Rx Isosorbide Mononitrate ER [Imdur] 120 mg PO DAILY #60 tab 05/13/24 Rx Metoprolol Succinate [Toprol XL] 200 mg PO DAILY #30 tab 05/13/24 Rx Rivaroxaban [Xarelto] 2.5 mg PO BID #60 tab 05/13/24 Rx Sacubitril/Valsartan [Entresto 49 1 tab PO BID #60 tab 05/13/24 Rx mg-51 mg Tablet] Ticagrelor [Brilinta] 90 mg PO BID #60 tab 05/13/24 Rx amLODIPine [Norvasc] 2.5 mg PO DAILY #30 tab 05/13/24 Rx Allergies Allergy/AdvReac Type Severity Reaction Status Date / Time Penicillins Allergy Unknown Verified 05/17/24 19:53 Childhood Physical Exam Vitals: Vital Signs Temp Pulse Resp BP Pulse Ox 05/17/24 22:00 87 18 150/89 96 05/17/24 21:31 71 16 140/84 100 05/17/24 19:47 98.1 F 69 18 135/82 98 Intake and Output 05/17/24 05/17/24 05/18/24 14:59 22:59 06:59 Other: Weight 119.748 kg Results CBC & Chem 7: 05/17/24 19:54 05/17/24 19:54 Labs: Abnormal Lab Results - Last 24 Hours (Table) 05/17/24 05/17/24 05/17/24 Range/Units 19:54 19:54 19:54 RBC 6.01 H (4.30-5.90) m/uL MCV 74.3 L (80.0-100.0) fL MCH 24.0 L (25.0-35.0) pg RDW 16.0 H (11.5-15.5) % Sodium 136 L (137-145) mmol/L Chloride 108 H (98-107) mmol/L Carbon Dioxide 20 L (22-30) mmol/L Glucose 103 H (74-99) mg/dL Troponin I 0.077 H* (0.000-0.034) ng/mL
[2024-05-18] MEDS: HEPARIN SODIUM 1,000 UN/ML (10ML VL) IV PRN (06:37)
[2024-05-18] MEDS ORDERED: NITROGLYCERIN SL TABS 0.4 MG TAB SUBLINGUAL PRN (08:12)
[2024-05-18] MEDS ORDERED: DEXTROSE 50% SYRINGE 50 ML IVP PRN ×2 (08:16)
[2024-05-18] MEDS: amLODIPine 2.5 MG TAB PO SCH (08:49)
[2024-05-18] MEDS: ASPIRIN 81 MG PO SCH (08:49)
[2024-05-18] MEDS: TICAGRELOR 90 MG TAB PO SCH (08:50)
[2024-05-18] MEDS: METOPROLOL SUCCINATE (ER) 100 MG TAB.ER.24H PO SCH (08:50)
[2024-05-18] MEDS: DAPAGLIFLOZIN PROPANEDIOL 10 MG TABLET PO SCH (08:50)
[2024-05-18] MEDS: RANOLAZINE 500 MG TAB.ER.12H PO SCH (08:50)
[2024-05-18] MEDS: SPIRONOLACTONE 25 MG TAB PO SCH (08:50)
[2024-05-18] MEDS: ISOSORBIDE MONONITRATE ER 60 MG TAB.ER.24H PO SCH (08:51)
[2024-05-18] MEDS: EZETIMIBE 10 MG TAB PO SCH (08:51)
[2024-05-18] MEDS ORDERED: ASPIRIN 81 MG PO SCH (09:00)
[2024-05-18] MEDS: SACUBITRIL/VALSARTAN 49 MG-51 MG TABLET PO SCH (09:47)
[2024-05-18] MEDS: COLCHICINE 0.6 MG EACH PO SCH (09:47)
--- NOTE | 2024-05-18 11:46 | P.CRDCN ---
History of Present Illness Consult date: 05/18/24 Reason for Consult (text): NSTEMI History of present illness: This is a 44-year-old male patient of Dr. Jensen with past medical history of CAD with known chronic total occlusion of the RCA and left circumflex and stenting of the LAD, severe ischemic cardiomyopathy with EF of 30 to 35% status post AICD, hypertension, dyslipidemia, overweight, right below the knee amputation, issues in the past with noncompliance. Patient has had multiple hospitalizations and cardiac catheterizations/PCI since March 2024. See below for details. Patient states that he was with his family in [place] and was prepping food and he started having chest pains. He took 2 nitroglycerin but then the pain was very sharp and he was having difficulty in breathing. The pain was on the left side of his chest and went up to his neck. He also felt faint which occurred after he took nitroglycerin. Regarding his home cardiac medications, patient states he has been taking all of his medications as directed. Blood pressure 131/90, heart rate 70, pulse ox 96% on room air. Patient has been started on a heparin drip and his home cardiac medications have been resumed. He is status post 1 L of IV fluids. Patient is seen today in the emergency center waiting for a bed on the cardiac stepdown unit. -EKG: Sinus rhythm with no acute ST-T wave changes. -Chest x-ray: No acute process -Laboratory studies: WBC 8.5, hemoglobin 14.4. D-dimer 0.31. Sodium 136, potassium 4.8, BUN 14 creatinine 0.93. Troponin 0.077, 0.058 and 0.068. proBNP 435. Liver function test are normal. Magnesium 2.3. -Home cardiac medications: Amlodipine 2.5 mg daily, aspirin 81 mg daily, atorvastatin 80 mg at bedtime, Jardiance 25 mg daily, Zetia 10 mg daily, Imdur 120 mg daily, Toprol XL 200 mg daily, Nitrostat, Ranexa 1000 mg twice daily, Xarelto 2.5 mg twice daily, Brilinta 90 mg twice daily, spironolactone 12.5 mg daily. Patient is also on Ozempic. -Cardiac catheterization performed 04/08/2024 revealed patent stent in the mid and distal LAD and COMPUTER SCIENCE PROFESSOR of the RCA and COMPUTER SCIENCE PROFESSOR of the left circumflex. Subsequently, PTCA 04/10/2024 of both the PDA and PLV branches of the RCA was performed. -04/29/2024 cardiac catheterization finding patent stent in the mid and distal left anterior descending artery. Chronic total occlusion of the left circumflex. Intermediate to severe disease involving the mid RCA documented to be flow-limiting by Doppler wire and in the same setting, successful stenting of the mid RCA and PLB branch of the RCA. -05/12/2024 cardiac catheterization revealed patent stent to the LAD diagonal system. COMPUTER SCIENCE PROFESSOR of the left circumflex and left circumflex fills by collaterals. Severe in-stent restenosis involving the mid RCA with multiple layers of stent. Balloon angioplasty was performed with no stenting of the RCA. Mildly elevated left-sided filling pressure. -Limited echocardiogram performed on 05/10/2024 revealed EF of 35%, RVSP 38. Negative bubble study. No pericardial effusion. Review Of Systems: At the time of my exam: CONSTITUTIONAL: Denies fever or chills. HEENT: Denies blurred vision, vision changes, or eye pain. Denies hemoptysis CARDIOVASCULAR: Denies chest pain. Denies orthopnea. Denies PND. Denies palpitations RESPIRATORY: Denies shortness of breath. GASTROINTESTINAL: Denies abdominal pain. Denies nausea or vomiting. HEMATOLOGIC: Denies bleeding disorders. GENITOURINARY: Denies any blood in urine. SKIN: Denies puritis. Denies rash. Physical examination: Gen: This is a 44-year-old male in no acute distress. VS: reviewed HEENT: Head is atraumatic, normocephalic. Pupils equal, round. Sclerae is anicteric. NECK: Supple. No JVD. LUNGS: Clear to auscultation. No wheezes or rhonchi. No intercostal retractions. HEART: Regular rate and rhythm. Systolic murmur. ABDOMEN: Soft No tenderness. EXTREMITIES: Right below the knee amputation. No pedal edema. No calf tenderness. NEUROLOGICAL: Patient is awake, alert and oriented x3. Assessment: Elevated troponins which seem to be trending down from his recent cardiac catheterization Several hospitalizations for NSTEMI Severe CAD status post multiple PCI as above Dyslipidemia Diabetes mellitus type 2 Obesity with BMI of 36 Right below the knee amputation Ischemic cardiomyopathy with EF of 35% Status post AICD Hypertension Plan: Resume patient's home cardiac medications with the following changes Isosorbide to 60 mg twice daily Hold Xarelto which is vascular dosing Continue heparin drip Obtain repeat troponin in the morning to fully assess trending of the troponin levels Further recommendations to follow based upon clinical course Thank you kindly for this consultation. Nurse practitioner note has been reviewed, I agree with documented findings and plan of care. Patient was seen and examined. Past Medical History Past Medical History: Coronary Artery Disease (CAD), Chest Pain / Angina, Heart Failure, Diabetes Mellitus, Hyperlipidemia, Hypertension, Myocardial Infarction (MT), Sleep Apnea/CPAP/BIPAP, Syncope Additional Past Medical History / Comment(s): AICD. IDDM type II. Neuropathy bilateral feet. 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 Migraines. Chronic back pain. R BKA (done 2023). Last Myocardial Infarction Date:: 2023 History of Any Multi-Drug Resistant Organisms: None Reported Past Surgical History: AICD, Heart Catheterization, Heart Catheterization With Stent, Orthopedic Surgery Additional Past Surgical History / Comment(s): 10/27/12 AICD, DFTs, PCI with 2 stents, R BKA. Past Anesthesia/Blood Transfusion Reactions: No Reported Reaction Date of Last Stent Placement:: 02/03/16 Type of Cardiac Device: AICD Device Placement Date:: 2012 Past Psychological History: Anxiety, Depression Additional Psychological History / Comment(s): rajesh . Smoking Status: Former smoker Past Alcohol Use History: None Reported Additional Past Alcohol Use History / Comment(s): quit in 2019 about 1/2 ppd Past Drug Use History: None Reported - Past Family History Mother Family Medical History: No Reported History Brother(s) Family Medical History: Myocardial Infarction (MT) Father Family Medical History: Liver Disease Sister(s) Additional Family Medical History / Comment(s): Huntings disease Medications and Allergies Home Medications Medication Instructions Recorded Confirmed Type Aspirin 81 mg PO DAILY #30 07/15/21 05/18/24 Rx Nitroglycerin Sl Tabs [Nitrostat] 0.4 mg SUBLINGUAL Q5M PRN #30 tab 07/15/21 05/18/24 Rx Insulin NPH Hum/Reg Insulin Hm 60 unit SQ BID 12/07/21 05/18/24 History [humuLIN 70/30 Kwikpen] Ranolazine [Ranexa] 1,000 mg PO BID 03/11/24 05/18/24 History Semaglutide [Ozempic] 1 mg SQ TH 03/11/24 05/18/24 History oxyCODONE HCL/ACETAMINOPHEN 1 tab PO Q6HR PRN 3 Days #12 tab 03/26/24 05/18/24 Rx [Percocet 5-325 mg] Ezetimibe [Zetia] 10 mg PO DAILY #90 tab 04/11/24 05/18/24 Rx Mag Hydrox/Al Hydrox/Simeth 30 ml PO Q4HR PRN ml 04/11/24 05/18/24 Rx [Maalox] Spironolactone [Aldactone] 12.5 mg PO DAILY #30 tablet 04/11/24 05/18/24 Rx Colchicine [Colcrys] 0.6 mg PO DAILY #30 each 05/02/24 05/18/24 Rx Lidocaine 4% Patch 1 patch TRANSDERM DAILY 05/08/24 05/18/24 History Atorvastatin [Lipitor] 80 mg PO HS #30 tab 05/13/24 05/18/24 Rx Empagliflozin [Jardiance] 25 mg PO DAILY #30 tab 05/13/24 05/18/24 Rx Isosorbide Mononitrate ER [Imdur] 120 mg PO DAILY #60 tab 05/13/24 05/18/24 Rx Metoprolol Succinate [Toprol XL] 200 mg PO DAILY #30 tab 05/13/24 05/18/24 Rx Rivaroxaban [Xarelto] 2.5 mg PO BID #60 tab 05/13/24 05/18/24 Rx Sacubitril/Valsartan [Entresto 49 1 tab PO BID #60 tab 05/13/24 05/18/24 Rx mg-51 mg Tablet] Ticagrelor [Brilinta] 90 mg PO BID #60 tab 05/13/24 05/18/24 Rx amLODIPine [Norvasc] 2.5 mg PO DAILY #30 tab 05/13/24 05/18/24 Rx Allergies Allergy/AdvReac Type Severity Reaction Status Date / Time Penicillins Allergy Unknown Verified 05/18/24 08:34 Childhood Physical Exam Vitals: Vital Signs Temp Pulse Resp BP Pulse Ox 05/18/24 06:00 64 17 111/66 95 05/18/24 03:00 68 18 107/74 97 05/18/24 00:00 80 24 130/82 97 05/17/24 23:00 84 20 156/88 100 05/17/24 22:00 87 18 150/89 96 05/17/24 21:31 71 16 140/84 100 05/17/24 19:47 98.1 F 69 18 135/82 98 Intake and Output 05/17/24 05/18/24 05/18/24 22:59 06:59 14:59 Intake Total 91.667 Balance 91.667 Intake: Intake, IV Titration 91.667 Amount Heparin Sod,Pork in 0.45% 91.667 NaCl 25,000 unit In 0.45 % NaCl 1 250ml.bag @ 8. 351 UNITS/KG/HR 10 mls/hr IV .Q24H [facility] Rx#: [id number] Other: Weight 119.748 kg Results 05/17/24 19:54 05/17/24 19:54 Cardiac Enzymes 05/17/24 05/17/24 05/18/24 Range/Units 19:54 19:54 00:00 AST 30 (17-59) U/L Troponin I 0.077 H* 0.058 H* (0.000-0.034) ng/mL 05/18/24 Range/Units 04:26 AST (17-59) U/L Troponin I 0.068 H* (0.000-0.034) ng/mL Coagulation 05/17/24 05/18/24 Range/Units 19:54 04:26 PT 10.5 (10.0-12.5) sec APTT 24.9 26.5 (22.0-30.0) sec CBC 05/17/24 Range/Units 19:54 WBC 8.5 (3.8-10.6) k/uL RBC 6.01 H (4.30-5.90) m/uL Hgb 14.4 (13.0-17.5) gm/dL Hct 44.6 (39.0-53.0) % Plt Count 246 (150-450) k/uL Comprehensive Metabolic Panel 05/17/24 Range/Units 19:54 Sodium 136 L (137-145) mmol/L Potassium 4.8 (3.5-5.1) mmol/L Chloride 108 H (98-107) mmol/L Carbon Dioxide 20 L (22-30) mmol/L BUN 14 (9-20) mg/dL Creatinine 0.93 (0.66-1.25) mg/dL Glucose 103 H (74-99) mg/dL Calcium 8.8 (8.4-10.2) mg/dL AST 30 (17-59) U/L ALT 31 (4-49) U/L Alkaline Phosphatase 59 (38-126) U/L Total Protein 6.9 (6.3-8.2) g/dL Albumin 3.8 (3.5-5.0) g/dL Current Medications Generic Name Dose Route Start Last Admin Trade Name Freq PRN Reason Stop Dose Admin Aspirin 81 mg 05/18/24 09:00 Aspirin 81 Mg PO DAILY [facility] Atorvastatin Calcium 80 mg 05/18/24 21:00 Atorvastatin 80 Mg Tab PO HS KSENIA Heparin Sodium (Porcine) 0 unit 05/17/24 21:04 05/18/24 06:37 Heparin Sodium 1,000 Un/Ml (10ml Vl) IV 4,000 unit PER PROTOCOL PRN Administration Low PTT Protocol Heparin Sodium/Sodium Chloride 250 mls @ 10 mls/hr 05/17/24 21:15 05/18/24 06:34 25,000 unit/ Sodium Chloride IV 11.351 units/kg/hr .Q24H KSENIA 13.593 mls/hr Titration Protocol 8.351 UNITS/KG/HR Sodium Chloride 1,000 mls @ 20 mls/hr 05/17/24 21:15 05/17/24 21:26 Saline 0.9% IV 20 mls/hr .Q24H KSENIA Administration Morphine Sulfate 4 mg 05/17/24 21:04 05/18/24 04:58 Morphine Sulfate 4 Mg/Ml Syringe IV 4 mg Q4HR PRN Administration Severe Pain (Scale 7 to 10) Naloxone HCl 0.2 mg 05/17/24 21:04 Naloxone 0.4 Mg/Ml 1 Ml Vial IV Q2M PRN Opioid Reversal Ondansetron HCl 4 mg 05/17/24 21:04 Ondansetron 4 Mg/2 Ml Vial IVP Q8HR PRN Nausea And Vomiting Intake and Output 05/17/24 05/18/24 05/18/24 22:59 06:59 14:59 Intake Total 91.667 Balance 91.667 Intake: Intake, IV Titration 91.667 Amount Heparin Sod,Pork in 0.45% 91.667 NaCl 25,000 unit In 0.45 % NaCl 1 250ml.bag @ 8. 351 UNITS/KG/HR 10 mls/hr IV .Q24H [facility] Rx#: [id number] Other: Weight 119.748 kg 05/17/24 19:54 05/17/24 19:54
[2024-05-18 11:50] LABS: Glucose,Whole Blood 182 mg/dL (70-110)
[2024-05-18] MEDS: INSULIN ASPART (NovoLOG) 100 UNIT/ML VIAL SQ SCH (12:23)
--- NOTE | 2024-05-18 13:07 | P.PN ---
Subjective Progress Note Date: 05/18/24 Hospital Course: Patient is a 44-year-old male with a past medical history of severe obstructive CAD with previous [place] and stent placement, ischemic cardiomyopathy with previously known EF of 30 to 35% status post AICD placement, hypertension, hyperlipidemia, SVT, diabetes mellitus type 2, bilateral lower extremity peripheral neuropathy, right BKA, obstructive sleep apnea CPAP dependent nightly, and migraine headaches. On 05/16/2024 patient presented to [facility] with a chief complaint of chest pain and was found to have elevated troponins and transferred to our facility for admission and further evaluation. Upon arrival to our facility, patient underwent evaluation in the emergency department. Vital signs revealed blood pressure 135/82, heart rate 69, respiratory rate 18, temp 98.1 F, and SpO2 of 98% on room air. EKG revealing normal sinus rhythm at 75 bpm with no significant T wave or ST abnormality showing no signs of acute ischemia upon personal review and interpretation. Chest x-ray completed negative for acute cardiopulmonary process. Labs completed and reviewed. CBC showing MCV of 74.3 and MCH of 24.0. Coagulation profile normal findings. D-dimer negative at 0.31. BMP showing mild metabolic acidosis with chloride of 108, bicarb of 20 and anion gap of 8. Blood glucose 103. Liver profile unremarkable. Troponin was elevated at 0.077. proBNP 435. Lipase 49. Magnesium 2.3. And creatinine kinase 153. Patient admitted under our services with consultation to cardiology. Troponins trended resulting at 0.077, 0.058, and 0.068. Physical exam: Patient seen and fully evaluated at bedside. He continues to report chest pain to mid anterior chest radiating up into left lateral and posterior neck. He denies having any shortness of breath, cough, congestion, or experiencing any nausea or vomiting. Vital signs reviewed and stable. General: Nontoxic, no distress and appears stated age. Derm: Skin warm and dry, normal coloration for ethnicity. Head: Atraumatic, normocephalic and symmetric. Eyes: EOM's intact, no lid lag, and anicteric sclera Mouth: no lip lesions, mucus membranes moist Cardiovascular: regular rate and rhythm with normal S1S2, no murmur, and cap refill < 2 seconds. Lungs: Respirations even, regular, and unlabored on room air. Lungs CTA bilaterally, no rhonchi, no rales, no wheezing, and no accessory muscle usage. Abdominal: soft, nontender to palpation, no guarding, no appreciable organomegaly Ext: ROM intact. No gross muscle atrophy, no edema, no contractures, RBKA Neuro: Speech clear, face symmetrical and CN II-XII grossly intact with no noted focal neuro deficits Psych: Alert and oriented to person, place, time, and situation. Appropriate and pleasant affect. Assessment and Plan of Care: Chest pain with elevated troponins Severe obstructive CAD with previous [place] and stenting Ischemic cardiomyopathy status post AICD History of SVT Hypertension Hyperlipidemia -Cardiology following, recommending continuation of heparin infusion and repeating troponin tomorrow morning. -Telemetry monitoring -Continue low intensity heparin infusion with close monitoring of PTT for goal therapeutic range of 45 to 79 seconds. Currently PTT subtherapeutic at 26.5. -Patient to continue cardiac medication regimen with aspirin 81 mg daily, a torvastatin 80 mg nightly, cefepime 2.5 mg daily, Brilinta 90 mg twice daily,, Farxiga 10 mg daily, isosorbide mononitrate 60 mg twice daily, metoprolol succinate 200 mg daily, Ranexa 1000 mg twice daily, Aldactone 12.5 mg daily, and Entresto 49-51 mg tablet twice daily. Insulin-dependent diabetes mellitus with hyperglycemia Peripheral neuropathy Status post right BKA in June 2023 -Continue glycemic protocol with NovoLog sliding scale -Follow-up on hemoglobin A1c. Obstructive sleep apnea -Continue CPAP nightly and while napping Data and imaging reviewed -Labs reviewed. Troponins trended resulting at 0.077, 0.058, and 0.068. Blood glucose 182. PTT subtherapeutic at 26.5. -Vital signs reviewed. Blood pressure 131/90, heart rate 70, respiratory rate 20, and SpO2 of 96% on room air CODE STATUS: Full code DVT prophylaxis: Heparin infusion Anticipated discharge date: Pending clinical course Anticipated discharge place: Home Patient was seen independently by Nurse Practitioner. This document was prepared using [email or web address] dictation software. Please allow for er rors in door cutter while rare they do occur. Sunny Andrews NP rendered care for this patient independently, reviewed the findings and plan as documented in the note above and agree with plan. I did not physically speak with or examine the patient on this date. Objective - Vital Signs Vital signs: Vital Signs Temp 98.1 F 01/26/25 19:47 Pulse 64 05/18/24 06:00 Resp 17 05/18/24 06:00 BP 111/66 05/18/24 06:00 Pulse Ox 95 05/18/24 06:00 FiO2 Intake & Output 05/17/24 05/18/24 05/18/24 18:59 06:59 18:59 Intake Total 91.667 Balance 91.667 Weight 119.748 kg Intake: Intake, IV Titration 91.667 Amount Heparin Sod,Pork in 0.45% 91.667 NaCl 25,000 unit In 0.45 % NaCl 1 250ml.bag @ 8. 351 UNITS/KG/HR 10 mls/hr IV .Q24H [facility] Rx#: [id number] - Labs CBC & Chem 7: 05/17/24 19:54 05/17/24 19:54 Labs: Abnormal Lab Results - Last 24 Hours (Table) 05/17/24 05/17/24 05/17/24 Range/Units 19:54 19:54 19:54 RBC 6.01 H (4.30-5.90) m/uL MCV 74.3 L (80.0-100.0) fL MCH 24.0 L (25.0-35.0) pg RDW 16.0 H (11.5-15.5) % Sodium 136 L (137-145) mmol/L Chloride 108 H (98-107) mmol/L Carbon Dioxide 20 L (22-30) mmol/L Glucose 103 H (74-99) mg/dL Troponin I 0.077 H* (0.000-0.034) ng/mL 05/18/24 05/18/24 Range/Units 00:00 04:26 RBC (4.30-5.90) m/uL MCV (80.0-100.0) fL MCH (25.0-35.0) pg RDW (11.5-15.5) % Sodium (137-145) mmol/L Chloride (98-107) mmol/L Carbon Dioxide (22-30) mmol/L Glucose (74-99) mg/dL Troponin I 0.058 H* 0.068 H* (0.000-0.034) ng/mL
[2024-05-18 16:09] LABS: Glucose,Whole Blood 215 mg/dL (70-110)
[2024-05-18 19:57] LABS: Glucose,Whole Blood 218 mg/dL (70-110)
[2024-05-18] MEDS: ATORVASTATIN 80 MG TAB PO SCH (20:21)
[2024-05-18] MEDS ORDERED: ATORVASTATIN 80 MG TAB PO SCH (21:00)
[2024-05-19 05:58] LABS: Glucose,Whole Blood 171 mg/dL (70-110)
[2024-05-19 08:46] LABS: Anisocytosis Slight; HCT 43.6 % (39.0-53.0); HGB 14.2 gm/dL (13.0-17.5); Hypochromasia Slight; MCH 24.6 pg (25.0-35.0); MCHC 32.5 g/dL (31.0-37.0); MCV 75.6 fL (80.0-100.0); Mean Platelet Volume 6.8; Microcytosis Slight; Platelet Count 231 k/uL (150-450); RBC 5.77 m/uL (4.30-5.90); RDW 16.1 % (11.5-15.5); WBC 6.6 k/uL (3.8-10.6)
[2024-05-19 09:08] LABS: African American GFR (CKD) >90 (>60 ml/min/1.73 sqM); Anion Gap 9 mmol/L; Blood Urea Nitrogen 16 mg/dL (9-20); Calcium 8.5 mg/dL (8.4-10.2); Carbon Dioxide 22 mmol/L (22-30); Chloride 106 mmol/L (98-107); Glucose 187 mg/dL (74-99); Magnesium 2.3 mg/dL (1.6-2.3); Non-African American GFR(CKD) >90 (>60 ml/min/1.73 sqM); Potassium 4.1 mmol/L (3.5-5.1); Sodium 137 mmol/L (137-145)
[2024-05-19] MEDS ORDERED: CAFFEINE CITRATE 60 MG/3 ML VIAL IV PRN (09:54)
[2024-05-19] MEDS ORDERED: AMINOPHYLLINE 500 MG/20 ML VIAL IV PRN (09:54)
[2024-05-19 11:17] LABS: Glucose,Whole Blood 165 mg/dL (70-110)
--- NOTE | 2024-05-19 13:24 | P.PN ---
Subjective Progress Note Date: 05/19/24 Hospital Course: Patient is a 44-year-old male with a past medical history of severe obstructive CAD with previous [place] and stent placement, ischemic cardiomyopathy with previously known EF of 30 to 35% status post AICD placement, hypertension, hyperlipidemia, SVT, diabetes mellitus type 2, bilateral lower extremity peripheral neuropathy, right BKA, obstructive sleep apnea CPAP dependent nightly, and migraine headaches. On 05/16/2024 patient presented to [facility] with a chief complaint of chest pain and was found to have elevated troponins and transferred to our facility for admission and further evaluation. Upon arrival to our facility, patient underwent evaluation in the emergency department. Vital signs revealed blood pressure 135/82, heart rate 69, respiratory rate 18, temp 98.1 F, and SpO2 of 98% on room air. EKG revealing normal sinus rhythm at 75 bpm with no significant T wave or ST abnormality showing no signs of acute ischemia upon personal review and interpretation. Chest x-ray completed negative for acute cardiopulmonary process. Labs completed and reviewed. CBC showing MCV of 74.3 and MCH of 24.0. Coagulation profile normal findings. D-dimer negative at 0.31. BMP showing mild metabolic acidosis with chloride of 108, bicarb of 20 and anion gap of 8. Blood glucose 103. Liver profile unremarkable. Troponin was elevated at 0.077. proBNP 435. Lipase 49. Magnesium 2.3. And creatinine kinase 153. Patient admitted under our services with consultation to cardiology. Troponins trended resulting at 0.077, 0.058, 0.068, and 0.045. Physical exam: Patient seen and fully evaluated at bedside. He continues to report chest pain to mid sternal chest, but states radiation of pain up into left lateral neck seems to have improved. He denies having any shortness of breath, cough, or any other complaints at this time. Vital signs reviewed and stable. General: Nontoxic, no distress and appears stated age. Derm: Skin warm and dry, normal coloration for ethnicity. Head: Atraumatic, normocephalic and symmetric. Eyes: EOM's intact, no lid lag, and anicteric sclera Mouth: no lip lesions, mucus membranes moist Cardiovascular: regular rate and rhythm with normal S1S2, no murmur, and cap refill < 2 seconds. Lungs: Respirations even, regular, and unlabored on room air. Lungs CTA bilaterally, no rhonchi, no rales, no wheezing, and no accessory muscle usage. Abdominal: soft, nontender to palpation, no guarding, no appreciable organomegaly Ext: ROM intact. No gross muscle atrophy, no edema, no contractures, RBKA. Neuro: Speech clear, face symmetrical and CN II-XII grossly intact with no noted focal neuro deficits Psych: Alert and oriented to person, place, time, and situation. Appropriate and pleasant affect. Assessment and Plan of Care: Chest pain with elevated troponins Severe obstructive CAD with previous [place] and stenting Ischemic cardiomyopathy status post AICD History of SVT Hypertension Hyperlipidemia -Cardiology evaluated, patient to undergo Lexiscan stress test tomorrow morning. -Telemetry monitoring -Continue low intensity heparin infusion with close monitoring of PTT for goal therapeutic range of 45 to 79 seconds. Currently PTT subtherapeutic at 39.5. -Patient to continue cardiac medication regimen with aspirin 81 mg daily, amlodipine 2.5 mg daily, atorvastatin 80 mg nightly, Brilinta 90 mg twice daily,, Farxiga 10 mg daily, isosorbide mononitrate 60 mg twice daily, metoprolol succinate 200 mg daily, Ranexa 1000 mg twice daily, Aldactone 12.5 mg daily, and Entresto 49-51 mg tablet twice daily. Insulin-dependent diabetes mellitus with hyperglycemia Peripheral neuropathy Status post right BKA in June 2023 -Continue glycemic protocol with NovoLog sliding scale -Follow-up on hemoglobin A1c. Obstructive sleep apnea -Continue CPAP nightly and while napping Data and imaging reviewed -Labs reviewed. Morning troponin remains elevated at 0.045. PTT subtherapeutic at 39.5 which. He has difficulty BMP showing hyperglycemia with glucose of 187. Magnesium 2.3. -Vital signs reviewed. Blood pressure 126/74, heart rate 71, respiratory rate 20, temp 98.1 F, and SpO2 of 98% on room air. CODE STATUS: Full code DVT prophylaxis: Heparin infusion Anticipated discharge date: Pending clinical course Anticipated discharge place: Home Patient was seen independently by Nurse Practitioner. This document was prepared using [employer] dictation software. Please allow for errors in chemical inspector while rare they do occur. Sunny Andrews NP rendered care for this patient independently, reviewed the findings and plan as documented in the note above and agree with plan. I did not physically speak with or examine the patient on this date. Objective - Vital Signs Vital signs: Vital Signs Temp 98 F 05/18/24 23:24 Pulse 81 05/19/24 03:38 Resp 17 05/19/24 03:38 BP 134/94 05/19/24 03:38 Pulse Ox 97 05/19/24 03:38 FiO2 Intake & Output 05/18/24 05/19/24 05/19/24 18:59 06:59 18:59 Intake Total 615.520 318.272 180 Output Total 400 Balance 615.520 -81.728 180 Weight 119.748 kg 122.3 kg Intake: Intake, IV Titration 135.520 81.272 Amount Heparin Sod,Pork in 0.45% 135.520 81.272 NaCl 25,000 unit In 0.45 % NaCl 1 250ml.bag @ 8. 351 UNITS/KG/HR 10 mls/hr IV .Q24H [facility] Rx#: [id number] Oral 480 237 180 Output: Urine 400 - Labs CBC & Chem 7: 05/19/24 08:20 05/19/24 08:20 Labs: Abnormal Lab Results - Last 24 Hours (Table) 05/18/24 05/18/24 05/18/24 Range/Units 11:49 12:16 16:08 APTT 32.2 H (22.0-30.0) sec POC Glucose (mg/dL) 182 H 215 H (70-110) mg/dL 05/18/24 05/18/24 05/19/24 Range/Units 19:56 20:01 05:56 APTT 36.1 H (22.0-30.0) sec POC Glucose (mg/dL) 218 H 171 H (70-110) mg/dL
--- NOTE | 2024-05-19 14:03 | P.PN ---
Subjective Progress Note Date: 05/19/24 Reason for Consult (text): NSTEMI History of present illness: This is a 44-year-old male patient of Dr. Jensen with past medical history of CAD with known chronic total occlusion of the RCA and left circumflex and stenting of the LAD, severe ischemic cardiomyopathy with EF of 30 to 35% status post AICD, hypertension, dyslipidemia, overweight, right below the knee amputation, issues in the past with noncompliance. Patient has had multiple hospitalizations and cardiac catheterizations/PCI since March 2024. See below for details. Patient states that he was with his family in [place] and was prepping food and he started having chest pains. He took 2 nitroglycerin but then the pain was very sharp and he was having difficulty in breathing. The pain was on the left side of his chest and went up to his neck. He also felt faint which occurred after he took nitroglycerin. Regarding his home cardiac medications, patient states he has been taking all of his medications as directed. Blood pressure 131/90, heart rate 70, pulse ox 96% on room air. Patient has been started on a heparin drip and his home cardiac medications have been resumed. He is status post 1 L of IV fluids. Patient is seen today in the emergency center waiting for a bed on the cardiac stepdown unit. -EKG: Sinus rhythm with no acute ST-T wave changes. -Chest x-ray: No acute process -Laboratory studies: WBC 8.5, hemoglobin 14.4. D-dimer 0.31. Sodium 136, potassium 4.8, BUN 14 creatinine 0.93. Troponin 0.077, 0.058 and 0.068. proBNP 435. Liver function test are normal. Magnesium 2.3. -Home cardiac medications: Amlodipine 2.5 mg daily, aspirin 81 mg daily, atorvastatin 80 mg at bedtime, Jardiance 25 mg daily, Zetia 10 mg daily, Imdur 120 mg daily, Toprol XL 200 mg daily, Nitrostat, Ranexa 1000 mg twice daily, Xarelto 2.5 mg twice daily, Brilinta 90 mg twice daily, spironolactone 12.5 mg daily. Patient is also on Ozempic. -Cardiac catheterization performed 04/08/2024 revealed patent stent in the mid and distal LAD and REGISTERED NURSE STEP DOWN of the RCA and REGISTERED NURSE STEP DOWN of the left circumflex. Subsequently, PTCA 04/10/2024 of both the PDA and PLV branches of the RCA was performed. -04/29/2024 cardiac catheterization finding patent stent in the mid and distal left anterior descending artery. Chronic total occlusion of the left circumflex. Intermediate to severe disease involving the mid RCA documented to be flow-limiting by Doppler wire and in the same setting, successful stenting of the mid RCA and PLB branch of the RCA. -05/12/2024 cardiac catheterization revealed patent stent to the LAD diagonal system. REGISTERED NURSE STEP DOWN of the left circumflex and left circumflex fills by collaterals. Severe in-stent restenosis involving the mid RCA with multiple layers of stent. Balloon angioplasty was performed with no stenting of the RCA. Mildly elevated left-sided filling pressure. -Limited echocardiogram performed on 05/10/2024 revealed EF of 35%, RVSP 38. Negative bubble study. No pericardial effusion. 05/19 Patient seen and examined. Repeat troponin performed this morning is lower from yesterday. We will plan to schedule patient for Lexiscan stress test tomorrow as he has had breakfast today. Patient denies chest pain at this time. Blood pressure 126/74, heart rate 71, pulse ox 90% on room air. Repeat blood work reveals hemoglobin 14.2. Electrolytes and renal function are normal. Troponin this morning was 0.045. Physical examination: Gen: This is a 44-year-old male in no acute distress. VS: reviewed HEENT: Head is atraumatic, normocephalic. Pupils equal, round. Sclerae is anicteric. NECK: Supple. No JVD. LUNGS: Clear to auscultation. No wheezes or rhonchi. No intercostal retractions. HEART: Regular rate and rhythm. Systolic murmur. ABDOMEN: Soft No tenderness. EXTREMITIES: Right below the knee amputation. No pedal edema. No calf tende rness. NEUROLOGICAL: Patient is awake, alert and oriented x3. Assessment: Elevated troponins which seem to be trending down from his recent cardiac catheterization Several hospitalizations for NSTEMI Severe CAD status post multiple PCI as above Dyslipidemia Diabetes mellitus type 2 Obesity with BMI of 36 Right below the knee amputation Ischemic cardiomyopathy with EF of 35% Status post AICD Hypertension Plan: Resume patient's home cardiac medications with the following changes Isosorbide to 60 mg twice daily Hold Xarelto which is vascular dosing Discontinue Further recommendations to follow based upon clinical course Nurse practitioner note has been reviewed, I agree with documented findings and plan of care. Patient was seen and examined. Objective - Vital Signs Vital signs: Vital Signs Temp 98.1 F 05/19/24 08:39 Pulse 71 05/19/24 08:39 Resp 20 05/19/24 08:39 BP 126/74 05/19/24 08:39 Pulse Ox 98 05/19/24 08:39 FiO2 Intake & Output 05/18/24 05/19/24 05/19/24 18:59 06:59 18:59 Intake Total 615.520 318.272 180 Output Total 400 Balance 615.520 -81.728 180 Weight 119.748 kg 122.3 kg Intake: Intake, IV Titration 135.520 81.272 Amount Heparin Sod,Pork in 0.45% 135.520 81.272 NaCl 25,000 unit In 0.45 % NaCl 1 250ml.bag @ 8. 351 UNITS/KG/HR 10 mls/hr IV .Q24H [facility] Rx#: [id number] Oral 480 237 180 Output: Urine 400 - Labs CBC & Chem 7: 05/19/24 08:20 05/19/24 08:20 Labs: Abnormal Lab Results - Last 24 Hours (Table) 05/18/24 05/18/24 05/18/24 Range/Units 11:49 12:16 16:08 APTT 32.2 H (22.0-30.0) sec POC Glucose (mg/dL) 182 H 215 H (70-110) mg/dL 05/18/24 05/18/24 05/19/24 Range/Units 19:56 20:01 05:56 APTT 36.1 H (22.0-30.0) sec POC Glucose (mg/dL) 218 H 171 H (70-110) mg/dL
[2024-05-19 16:32] LABS: Glucose,Whole Blood 239 mg/dL (70-110)
[2024-05-19 20:19] LABS: Glucose,Whole Blood 185 mg/dL (70-110)
[2024-05-20 04:27] VITALS: TEMP 97.9
[2024-05-20 05:51] LABS: Glucose,Whole Blood 173 mg/dL (70-110)
[2024-05-20] MEDS ORDERED: REGADENOSON 0.4 MG/5 ML SYRINGE IV PRN (06:00)
[2024-05-20 06:59] LABS: Anisocytosis Slight; HCT 48.3 % (39.0-53.0); HGB 15.7 gm/dL (13.0-17.5); Hypochromasia Moderate; MCH 24.9 pg (25.0-35.0); MCHC 32.4 g/dL (31.0-37.0); MCV 76.7 fL (80.0-100.0); Mean Platelet Volume 7.1; Microcytosis Slight; Platelet Count 266 k/uL (150-450); RDW 16.3 % (11.5-15.5); WBC 7.5 k/uL (3.8-10.6)
[2024-05-20 07:13] LABS: African American GFR (CKD) >90 (>60 ml/min/1.73 sqM); Anion Gap 9 mmol/L; Blood Urea Nitrogen 20 mg/dL (9-20); Calcium 9.3 mg/dL (8.4-10.2); Carbon Dioxide 25 mmol/L (22-30); Chloride 104 mmol/L (98-107); Glucose 147 mg/dL (74-99); Magnesium 2.3 mg/dL (1.6-2.3); Non-African American GFR(CKD) 80 (>60 ml/min/1.73 sqM); Potassium 4.3 mmol/L (3.5-5.1); Sodium 138 mmol/L (137-145)
[2024-05-20] MEDS ORDERED: REGADENOSON 0.4 MG/5 ML SYRINGE IV ONE (08:00)
[2024-05-20 08:20] VITALS: BP 118/80; PULSE 69; RESP 18
--- NOTE | 2024-05-20 10:24 | NM ---
EXAMINATION TYPE: NM stress lexiscan cardiolite DATE OF EXAM: 05/20/2024 COMPARISON: NONE CLINICAL INDICATION: Male, 44 years old with history of CHest pain; TECHNIQUE: After the intravenous administration of 10.6 mCi Tc 99m Sestamibi - Cardiolite resting SP ECT images acquired 45 minutes post injection. The patient received 0.4mg Lexiscan, 25.8 mCi Tc 99m Sestamibi - Stress images obtained [address] injection FINDINGS: Review of stress and rest SPECT images demonstrates a large fixed defect along the inferolateral wall . However, on stress, there is extension of defect to include the lateral wall. Gated analysis shows global hypokinesis with an estimated left ventricular ejection fraction of 22 %. Normal augmentation of the lateral wall on stress. TID calculated at 0.47, within normal limits. IMPRESSION: 1. Large area of previous inferolateral wall infarct with findings compatible with inducible karthikeyan-inf arct ischemia extending to involve the lateral wall. 2. Consider ischemic cardiomyopathy given diminished LVEF of 22%. [facility], , 05/20/2024 10:22 AM
[2024-05-20 11:15] LABS: Glucose,Whole Blood 191 mg/dL (70-110)
--- NOTE | 2024-05-20 12:13 | CA ---
Lexiscan Nuclear Stress Test Report Name: Shaun Roldan Exam Date: 05/20/2024 09:22 Exam Location: [place] Stress Ht (in): 71 Wt (lb): 269 BSA: 2.39 Ordering Phys: Sonia August Referring Phys: ANU BRAVO,, Technologist: Nathen Amezcua Age: 44 Gender: M : 1980 Procedure CPT: Indications: Reflex order-Stress test ICD-10 Codes: Patient History: Medications: see chart Meds past 24 hrs: Pretest Chest Pain: STRESS TEST Lexiscan Protocol Exercise Duration (min:sec): 02:[address] Depressions (mm): Angina Score: Stafford Score: Resting HR (bpm): 66 Peak HR (bpm): 81 Resting BP (mmHg): 118 / 83 Peak BP (mmHg): 121 / 69 MPHR: 176 Target HR: 150 % MPHR: 46 METS: 1.0 Total Dose: Peak Dose: Atropine: Double Product: 9801 BP Response: Stress Termination: infusion complete Stress Symptoms: no symptoms Stress Summary: ECG ANALYSIS Resting ECG: Stress ECG: CONCLUSIONS Baseline EKG revealed sinus mechanism with mild IVCD evidence of poor R wave progression possible old anteroseptal MS no acute changes. With Lexiscan administration the heart rate changed from 66 to 79 bpm and the blood pressure changed from 118/83 to 111/79. No angina no EKG changes. This is unremarkable Lexiscan stress test. The nuclear scan results which are more pertinent will be reported by radiology Dr. Pam Del Real MD (Electronically Signed) Final Date: 20 May 2024 12:13
--- NOTE | 2024-05-20 12:42 | P.PN ---
Subjective Progress Note Date: 05/20/24 Reason for Consult (text): NSTEMI History of present illness: This is a 44-year-old male patient of Dr. Jensen with past medical history of CAD with known chronic total occlusion of the RCA and left circumflex and stenting of the LAD, severe ischemic cardiomyopathy with EF of 30 to 35% status post AICD, hypertension, dyslipidemia, overweight, right below the knee amputation, issues in the past with noncompliance. Patient has had multiple hospitalizations and cardiac catheterizations/PCI since March 2024. See below for details. Patient states that he was with his family in [place] and was prepping food and he started having chest pains. He took 2 nitroglycerin but then the pain was very sharp and he was having difficulty in breathing. The pain was on the left side of his chest and went up to his neck. He also felt faint which occurred after he took nitroglycerin. Regarding his home cardiac medications, patient states he has been taking all of his medications as directed. Blood pressure 131/90, heart rate 70, pulse ox 96% on room air. Patient has been started on a heparin drip and his home cardiac medications have been resumed. He is status post 1 L of IV fluids. Patient is seen today in the emergency center waiting for a bed on the cardiac stepdown unit. -EKG: Sinus rhythm with no acute ST-T wave changes. -Chest x-ray: No acute process -Laboratory studies: WBC 8.5, hemoglobin 14.4. D-dimer 0.31. Sodium 136, potassium 4.8, BUN 14 creatinine 0.93. Troponin 0.077, 0.058 and 0.068. proBNP 435. Liver function test are normal. Magnesium 2.3. -Home cardiac medications: Amlodipine 2.5 mg daily, aspirin 81 mg daily, atorvastatin 80 mg at bedtime, Jardiance 25 mg daily, Zetia 10 mg daily, Imdur 120 mg daily, Toprol XL 200 mg daily, Nitrostat, Ranexa 1000 mg twice daily, Xarelto 2.5 mg twice daily, Brilinta 90 mg twice daily, spironolactone 12.5 mg daily. Patient is also on Ozempic. -Cardiac catheterization performed 04/08/2024 revealed patent stent in the mid and distal LAD and PROOF TECHNICIAN HELPER of the RCA and PROOF TECHNICIAN HELPER of the left circumflex. Subsequently, PTCA 04/10/2024 of both the PDA and PLV branches of the RCA was performed. -04/29/2024 cardiac catheterization finding patent stent in the mid and distal left anterior descending artery. Chronic total occlusion of the left circumflex. Intermediate to severe disease involving the mid RCA documented to be flow-limiting by Doppler wire and in the same setting, successful stenting of the mid RCA and PLB branch of the RCA. -05/12/2024 cardiac catheterization revealed patent stent to the LAD diagonal system. PROOF TECHNICIAN HELPER of the left circumflex and left circumflex fills by collaterals. Severe in-stent restenosis involving the mid RCA with multiple layers of stent. Balloon angioplasty was performed with no stenting of the RCA. Mildly elevated left-sided filling pressure. -Limited echocardiogram performed on 05/10/2024 revealed EF of 35%, RVSP 38. Negative bubble study. No pericardial effusion. 05/19 Patient seen and examined. Repeat troponin performed this morning is lower from yesterday. We will plan to schedule patient for Lexiscan stress test tomorrow a s he has had breakfast today. Patient denies chest pain at this time. Blood pressure 126/74, heart rate 71, pulse ox 90% on room air. Repeat blood work reveals hemoglobin 14.2. Electrolytes and renal function are normal. Troponin this morning was 0.045. 05/20 Patient underwent Lexiscan stress test which revealed a large area of previous inferior lateral wall infarct with findings compatible with inducible karthikeyan- infarct ischemia extending to involve the lateral wall. Consider ischemic cardiomyopathy with EF of 22%. Patient denies having chest pain no shortness of breath. During this hospitalization, we changed isosorbide to 60 mg twice daily. Blood pressure 118/80, heart rate 69, pulse ox 99% on room air. Physical examination: Gen: This is a 44-year-old male in no acute distress. VS: reviewed HEENT: Head is atraumatic, normocephalic. Pupils equal, round. Sclerae is anicteric. NECK: Supple. No JVD. LUNGS: Clear to auscultation. No wheezes or rhonchi. No intercostal retraction s. HEART: Regular rate and rhythm. Systolic murmur. ABDOMEN: Soft No tenderness. EXTREMITIES: Right below the knee amputation. No pedal edema. No calf tenderness. NEUROLOGICAL: Patient is awake, alert and oriented x3. Assessment: Elevated troponins which seem to be trending down from his recent cardiac catheterization Several hospitalizations for NSTEMI Severe CAD status post multiple PCI as above Dyslipidemia Diabetes mellitus type 2 Obesity with BMI of 36 Right below the knee amputation Ischemic cardiomyopathy with EF of 35% Status post AICD Hypertension Plan: Continue patient's home cardiac medications with the following changes Isosorbide to 60 mg twice daily Resume Xarelto Patient is cleared for discharge from cardiology and may follow-up in the office with Dr. Jensen in 1 to 2 weeks. Nurse practitioner note has been reviewed, I agree with documented findings and plan of care. Patient was seen and examined. Objective - Vital Signs Vital signs: Vital Signs Temp 97.9 F 05/20/24 04:00 Pulse 69 05/20/24 12:08 Resp 18 05/20/24 08:00 BP 118/80 05/20/24 08:00 Pulse Ox 99 05/20/24 08:00 FiO2 Intake & Output 05/19/24 05/20/24 05/20/24 18:59 06:59 18:59 Intake Total 708.728 237 Balance 708.728 237 Weight 120.4 kg Intake: Intake, IV Titration 168.728 Amount Heparin Sod,Pork in 0.45% 168.728 NaCl 25,000 unit In 0.45 % NaCl 1 250ml.bag @ 8. 351 UNITS/KG/HR 10 mls/hr IV .Q24H [facility] Rx#: [id number] Oral 540 237 Other: # Voids 1 - Labs CBC & Chem 7: 05/20/24 05:38 05/20/24 05:38 Labs: Abnormal Lab Results - Last 24 Hours (Table) 05/19/24 05/19/24 05/19/24 Range/Units 08:20 16:28 20:18 RBC (4.30-5.90) m/uL MCV (80.0-100.0) fL MCH (25.0-35.0) pg RDW (11.5-15.5) % Glucose (74-99) mg/dL POC Glucose (mg/dL) 239 H 185 H (70-110) mg/dL Hemoglobin A1c 8.9 H (<=6.0) % 05/20/24 05/20/24 05/20/24 Range/Units 05:38 05:38 05:50 RBC 6.30 H (4.30-5.90) m/uL MCV 76.7 L (80.0-100.0) fL MCH 24.9 L (25.0-35.0) pg RDW 16.3 H (11.5-15.5) % Glucose 147 H (74-99) mg/dL POC Glucose (mg/dL) 173 H (70-110) mg/dL Hemoglobin A1c (<=6.0) % 05/20/24 Range/Units 11:13 RBC (4.30-5.90) m/uL MCV (80.0-100.0) fL MCH (25.0-35.0) pg RDW (11.5-15.5) % Glucose (74-99) mg/dL POC Glucose (mg/dL) 191 H (70-110) mg/dL Hemoglobin A1c (<=6.0) %
--- NOTE | 2024-05-20 14:05 | P.DS ---
Providers Date of admission: 05/17/24 21:05 Expected date of discharge: 05/20/24 Attending physician: Dinh Britt MD Consults: 05/17/24 21:04 Consult Physician Routine Consulting Provider: Milagros Cortez Consult Reason/Comments: cp Do you want consulting provider notified?: Yes Primary care physician: Stated None Hospital Course: Discharge Diagnosis: Chest pain with elevated troponins, unstable angina. Severe obstructive CAD with previous AZ and stenting Ischemic cardiomyopathy status post AICD History of SVT Hypertension Hyperlipidemia Insulin-dependent diabetes mellitus with hyperglycemia Peripheral neuropathy Status post right BKA in June 2023 Obstructive sleep apnea Hospital Course: Patient is a 44-year-old male with a past medical history of severe obstructive CAD with previous AZ and stent placement, ischemic cardiomyopathy with previously known EF of 30 to 35% status post AICD placement, hypertension, hyperlipidemia, SVT, diabetes mellitus type 2, bilateral lower extremity peripheral neuropathy, right BKA, obstructive sleep apnea CPAP dependent nightly, and migraine headaches. On 05/16/2024 patient presented to [facility] with a chief complaint of chest pain and was found to have elevated troponins and transferred to our facility for admission and further evaluation. Upon arrival to our facility, patient underwent evaluation in the emergency department. Vital signs revealed blood pressure 135/82, heart rate 69, respiratory rate 18, temp 98.1 F, and SpO2 of 98% on room air. EKG revealing normal sinus rhythm at 75 bpm with no significant T wave or ST abnormality showing no signs of acute ischemia upon personal review and interpretation. Chest x-ray completed negative for acute cardiopulmonary process. Labs completed and reviewed. CBC showing MCV of 74.3 and MCH of 24.0. Coagulation profile normal findings. D-dimer negative at 0.31. BMP showing mild metabolic acidosis with chloride of 108, bicarb of 20 and anion gap of 8. Blood glucose 103. Liver profile unremarkable. Troponin was elevated at 0.077. proBNP 435. Lipase 49. Magnesium 2.3. And creatinine kinase 153. Patient admitted under our services with consultation to cardiology. Troponins trended resulting at 0.077, 0.058, 0.068, and 0.045. Patient was started on IV heparin infusion. A Lexiscan stress test was completed. [employer] Mill Observer reviewed stating abnormal Lexiscan stress showing large area of previous inferior lateral wall infarct and findings compatible with inducible karthikeyan-infarct ischemia extending to involve lateral wall with ischemic cardiomyopathy with EF of 22% is a chronic finding and unchanged. [employer] Observer clearing patient from cardiac perspective recommending changing Imdur from 120 mg daily to 60 mg twice daily and clearing patient from their perspective for discharge. Patient to continue cardiac medication regimen with aspirin 81 mg daily, Xarelto 2.5 mg daily, amlodipine 2.5 mg daily, atorvastatin 80 mg nightly, Brilinta 90 mg twice daily,, Farxiga 10 mg daily, isosorbide mononitrate 60 mg twice daily, metoprolol succinate 200 mg daily, Ranexa 1000 mg twice daily, Aldactone 12.5 mg daily, and Entresto 49- 51 mg tablet twice daily. Patient reports he has follow-up appointment scheduled with a new PCP, Dr. Espinal and pt instructed he will need to follow- up outpatient with process area supervisor Dr. Hernandez in 1 week. Physical exam: Vital signs reviewed and stable. General: Nontoxic, no distress and appears stated age. Derm: Skin warm and dry, normal coloration for ethnicity. Head: Atraumatic, normocephalic and symmetric. Eyes: EOM's intact, no lid lag, and anicteric sclera Mouth: no lip lesions, mucus membranes moist Cardiovascular: regular rate and rhythm with normal S1S2, no murmur, and cap r efill < 2 seconds. Lungs: Respirations even, regular, and unlabored on room air. Lungs CTA bilaterally, no rhonchi, no rales, no wheezing, and no accessory muscle usage. Abdominal: soft, nontender to palpation, no guarding, no appreciable organomegaly Ext: ROM intact. No gross muscle atrophy, no edema, no contractures, RBKA. Neuro: Speech clear, face symmetrical and CN II-XII grossly intact with no noted focal neuro deficits Psych: Alert and oriented to person, place, time, and situation. Appropriate and pleasant affect. A total of 35 minutes of time were spent preparing this complex discharge summary. Pt was discharged on at 1:57 PM. Patient was seen independently by Nurse Practitioner. This document was prepared using [employer] dictation software. Please allow for errors in air pollution auditor while rare they do occur. Sunny Andrews NP rendered care for this patient independently, reviewed the findings and plan as documented in the note above. I did not physically speak with or examine the patient on this date. Patient Condition at Discharge: Stable Plan - Discharge Summary Discharge Rx Participant: No New Discharge Prescriptions: New Isosorbide Mononitrate ER [Imdur] 60 mg PO BID 30 Days #60 tab Continue Aspirin 81 mg PO DAILY #30 Insulin NPH Hum/Reg Insulin Hm [humuLIN 70/30 Kwikpen] 60 unit SQ BID Ranolazine [Ranexa] 1,000 mg PO BID Ezetimibe [Zetia] 10 mg PO DAILY #90 tab Lidocaine 4% Patch 1 patch TRANSDERM DAILY amLODIPine [Norvasc] 2.5 mg PO DAILY #30 tab Ticagrelor [Brilinta] 90 mg PO BID #60 tab Sacubitril/Valsartan [Entresto 49 mg-51 mg Tablet] 1 tab PO BID #60 tab Rivaroxaban [Xarelto] 2.5 mg PO BID #60 tab Nitroglycerin Sl Tabs [Nitrostat] 0.4 mg SUBLINGUAL Q5M PRN #30 tab PRN Reason: Chest Pain Semaglutide [Ozempic] 1 mg SQ TH oxyCODONE HCL/ACETAMINOPHEN [Percocet 5-325 mg] 1 tab PO Q6HR PRN 3 Days #12 tab PRN Reason: Pain Spironolactone [Aldactone] 12.5 mg PO DAILY #30 tablet Mag Hydrox/Al Hydrox/Simeth [Maalox] 30 ml PO Q4HR PRN ml PRN Reason: Heartburn Colchicine [Colcrys] 0.6 mg PO DAILY #30 each Empagliflozin [Jardiance] 25 mg PO DAILY #30 tab Atorvastatin [Lipitor] 80 mg PO HS #30 tab Metoprolol Succinate [Toprol XL] 200 mg PO DAILY #30 tab Discontinued Isosorbide Mononitrate ER [Imdur] 120 mg PO DAILY #60 tab Discharge Medication List Aspirin 81 mg PO DAILY #30 07/15/21 [Rx] Nitroglycerin Sl Tabs [Nitrostat] 0.4 mg SUBLINGUAL Q5M PRN #30 tab 07/15/21 [Rx] Insulin NPH Hum/Reg Insulin Hm [humuLIN 70/30 Kwikpen] 60 unit SQ BID 12/07/21 [History] Ranolazine [Ranexa] 1,000 mg PO BID 11/20/24 [History] Semaglutide [Ozempic] 1 mg SQ TH 03/11/24 [History] oxyCODONE HCL/ACETAMINOPHEN [Percocet 5-325 mg] 1 tab PO Q6HR PRN 3 Days #12 tab 03/26/24 [Rx] Ezetimibe [Zetia] 10 mg PO DAILY #90 tab 04/11/24 [Rx] Mag Hydrox/Al Hydrox/Simeth [Maalox] 30 ml PO Q4HR PRN ml 04/11/24 [Rx] Spironolactone [Aldactone] 12.5 mg PO DAILY #30 tablet 04/11/24 [Rx] Colchicine [Colcrys] 0.6 mg PO DAILY #30 each 05/02/24 [Rx] Lidocaine 4% Patch 1 patch TRANSDERM DAILY 05/08/24 [History] Atorvastatin [Lipitor] 80 mg PO HS #30 tab 05/13/24 [Rx] Empagliflozin [Jardiance] 25 mg PO DAILY #30 tab 05/13/24 [Rx] Metoprolol Succinate [Toprol XL] 200 mg PO DAILY #30 tab 05/13/24 [Rx] Rivaroxaban [Xarelto] 2.5 mg PO BID #60 tab 05/13/24 [Rx] Sacubitril/Valsartan [Entresto 49 mg-51 mg Tablet] 1 tab PO BID #60 tab 05/13/24 [Rx] Ticagrelor [Brilinta] 90 mg PO BID #60 tab 05/13/24 [Rx] amLODIPine [Norvasc] 2.5 mg PO DAILY #30 tab 05/13/24 [Rx] Isosorbide Mononitrate ER [Imdur] 60 mg PO BID 30 Days #60 tab 05/20/24 [Rx] Follow up Appointment(s)/Referral(s): Damion Hernandez MD [STAFF PHYSICIAN] - 1 Week Patient Instructions/Handouts: Angina (DC), Coronary Artery Disease (DC) Activity/Diet/Wound Care/Special Instructions: Activity: As tolerated. Diet: Heart healthy and carb consistent diet. Avoid salts, or foods with hidden salts such as canned or boxed foods and frozen dinners. Extra salt makes your heart work harder and traps the fluid in your body for longer. Special Instructions: Take all of your medications as directed and remember to keep all of your doctor's appointments and follow-up as needed. You stated you met Dr. Espinal in the Emergency Department and that he has offered to be your PCP and that you have scheduled a new visit appointment with him for follow up and management of your care. Please be sure to follow-up as it is of utmost importance for you to establish care with a PCP. Thank you for allowing us to participate in your care, it was truly a pleasure having you for our patient!!! Discharge Disposition: HOME SELF-CARE
== END 2024-05-20 15:47 | disposition home or self-care (01) ==
LOC: EC 19:41 → 3SCARD 21:05
PROVIDERS: ADMIT Internal Medicine; ATTEND Internal Medicine
DX: I25.110 Atherosclerotic heart disease of native coronary artery with unstable angina pectoris (principal); I25.82 Chronic total occlusion of coronary artery; I11.0 Hypertensive heart disease with heart failure; I50.22 Chronic systolic (congestive) heart failure; E11.65 Type 2 diabetes mellitus with hyperglycemia; E78.5 Hyperlipidemia, unspecified; G47.33 Obstructive sleep apnea (adult) (pediatric); F41.9 Anxiety disorder, unspecified; F32.A Depression, unspecified; E11.42 Type 2 diabetes mellitus with diabetic polyneuropathy; I25.5 Ischemic cardiomyopathy; I25.2 Old myocardial infarction; E66.9 Obesity, unspecified; Z68.36 Body mass index [BMI] 36.0-36.9, adult; Z87.891 Personal history of nicotine dependence; Z89.511 Acquired absence of right leg below knee; Z95.5 Presence of coronary angioplasty implant and graft; Z95.810 Presence of automatic (implantable) cardiac defibrillator; Z79.4 Long term (current) use of insulin; Z79.899 Other long term (current) drug therapy; Z79.85 Long-term (current) use of injectable non-insulin antidiabetic drugs; Z79.82 Long term (current) use of aspirin; Z79.84 Long term (current) use of oral hypoglycemic drugs; Z79.01 Long term (current) use of anticoagulants; Z79.02 Long term (current) use of antithrombotics/antiplatelets; Z88.0 Allergy status to penicillin; Z82.49 Family history of ischemic heart disease and other diseases of the circulatory system
CPT/HCPCS: 96376 ×5; 96365; 96366; 96361; 96374; 96375; 99291; 36415; 93005; 93017; 85379; 83880; 80053; 80048 ×2; 82550; 83690; 83735 ×3; 84484 ×3; 85025; 85027 ×2; 85610; 85730 ×3; 83036; 71045; 78452; G0378 ×4; A9500; J2270 ×4; J2405; J1644 ×6

== ENCOUNTER 2024-06-13 22:56 | Emergency (ER) | payer OTHER ==
--- NOTE | 2024-06-13 23:28 | ED ---
General Adult HPI - General Chief complaint: Chest Pain Stated complaint: Chest pain DEANNA Time Seen by Provider: 06/13/24 23:00 Source: patient, RN notes reviewed, old records reviewed Mode of arrival: ambulatory Limitations: no limitations - History of Present Illness Initial comments: 44-year-old male with ischemic cardiomyopathy presenting for evaluation of chest pain. Patient states that he was recently admitted to the hospital with chest pain and has had persistent symptoms that did worsen prior to arrival. He reports left arm numbness which she states has been present throughout the day today. No headache. No back pain. No vomiting or diaphoresis. Patient currently on Xarelto. He does follow regularly with cardiology, no [facility] [place] at the patient reports for his continued anginal chest pain. - Related Data Home Medications Medication Instructions Recorded Confirmed Insulin NPH Hum/Reg Insulin Hm 60 unit SQ BID 12/07/21 06/05/24 [humuLIN 70/30 Kwikpen] Ranolazine [Ranexa] 1,000 mg PO BID 03/11/24 06/05/24 Semaglutide [Ozempic] 1 mg SQ TH 03/11/24 06/05/24 Lidocaine 4% Patch 1 patch TRANSDERM DAILY 05/08/24 06/05/24 Previous Rx's Medication Instructions Recorded Aspirin 81 mg PO DAILY #30 07/15/21 Nitroglycerin Sl Tabs [Nitrostat] 0.4 mg SUBLINGUAL Q5M PRN #30 tab 07/15/21 Ezetimibe [Zetia] 10 mg PO DAILY #90 tab 04/11/24 Mag Hydrox/Al Hydrox/Simeth 30 ml PO Q4HR PRN ml 04/11/24 [Maalox] Colchicine [Colcrys] 0.6 mg PO DAILY #30 each 05/02/24 Atorvastatin [Lipitor] 80 mg PO HS #30 tab 05/13/24 Empagliflozin [Jardiance] 25 mg PO DAILY #30 tab 05/13/24 Metoprolol Succinate [Toprol XL] 200 mg PO DAILY #30 tab 05/13/24 Rivaroxaban [Xarelto] 2.5 mg PO BID #60 tab 05/13/24 Sacubitril/Valsartan [Entresto 49 1 tab PO BID #60 tab 05/13/24 mg-51 mg Tablet] Ticagrelor [Brilinta] 90 mg PO BID #60 tab 05/13/24 Isosorbide Mononitrate ER [Imdur] 60 mg PO BID #60 tab 06/08/24 Spironolactone [Aldactone] 25 mg PO DAILY #30 tablet 06/08/24 Allergies Allergy/AdvReac Type Severity Reaction Status Date / Time Penicillins Allergy Unknown Verified 06/13/24 23:06 Childhood Review of Systems ROS Statement: Those systems with pertinent positive or pertinent negative responses have been documented in the HPI. ROS Other: All systems not noted in ROS Statement are negative. Past Medical History Past Medical History: Coronary Artery Disease (CAD), Chest Pain / Angina, Heart Failure, Diabetes Mellitus, Hyperlipidemia, Hypertension, Myocardial Infarction ([place]), Sleep Apnea/CPAP/BIPAP, Syncope Additional Past Medical History / Comment(s): AICD. IDDM type II. Neuropathy bilateral feet. 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 Migraines. Chronic back pain. R BKA (done 2023). Last Myocardial Infarction Date:: 2023 History of Any Multi-Drug Resistant Organisms: None Reported Past Surgical History: AICD, Heart Catheterization, Heart Catheterization With Stent, Orthopedic Surgery Additional Past Surgical History / Comment(s): 10/27/12 AICD, DFTs, PCI with 2 stents, R BKA. Past Anesthesia/Blood Transfusion Reactions: No Reported Reaction Date of Last Stent Placement:: 02/03/16 Type of Cardiac Device: AICD Device Placement Date:: 2012 Past Psychological History: Anxiety, Depression Smoking Status: Former smoker Past Alcohol Use History: None Reported Past Drug Use History: None Reported - Past Family History Mother Family Medical History: No Reported History Brother(s) Family Medical History: Myocardial Infarction ([place]) Father Family Medical History: Liver Disease Sister(s) Additional Family Medical History / Comment(s): Huntings disease General Exam Limitations: no limitations General appearance: alert, in no apparent distress Head exam: Present: atraumatic, normocephalic Eye exam: Present: normal appearance, PERRL ENT exam: Present: normal exam Neck exam: Present: normal inspection. Absent: tenderness, meningismus Respiratory exam: Present: normal lung sounds bilaterally. Absent: respiratory distress, wheezes Cardiovascular Exam: Present: regular rate, normal rhythm GI/Abdominal exam: Present: soft. Absent: distended, tenderness, guarding Extremities exam: Present: other (Right lower extremity amputation) Neurological exam: Present: alert, oriented X3, CN II-XII intact, other (Reported left upper extremity numbness). Absent: motor sensory deficit Psychiatric exam: Present: normal affect, normal mood Skin exam: Present: warm, dry, intact Course Vital Signs 06/13/24 23:04 Temperature 97.6 F Pulse Rate 91 Respiratory 18 Rate Blood Pressure 140/66 O2 Sat by Pulse 99 Oximetry Medical Decision Making - Medical Decision Making Was pt. sent in by a medical professional or institution (, JAYA, CATALOGUE CLERK, urgent care, hospital, or snf...) When possible be specific @ -No Did you speak to anyone other than the patient for history (EMS, parent, family, police, friend...)? What history was obtained from this source @ -No Did you review nursing and triage notes (agree or disagree)? Why? @ -I reviewed and agree with nursing and triage notes Were old charts reviewed (outside hosp., previous admission, EMS record, old EKG, old radiological studies, urgent care reports/EKG's, snf records)? Report findings @ -No old charts were reviewed Differential Chest Pain: Stable Angina, Unstable Angina, STEMI, NSTEMI Aortic Dissection, Pneumothorax, Musculoskeletal, Esophageal Spasm GERD, Cholecystitis, Pancreatitis, Zoster, this is not meant to be an all-inclusive list. EKG interpreted by me (3pts min.). @Sinus rhythm rate of 91, W[place] interval 196, QRS duration 134, QTc [address] segment elevation, intraventricular conduction delay. X-rays interpreted by me (1pt min.). @ -Chest x-ray negative for acute cardiopulmonary findings CT interpreted by me (1pt min.). @ -CT brain negative for intracranial hemorrhage or mass effect U/S interpreted by me (1pt. min.). @ -None done What testing was considered but not performed or refused? (CT, X-rays, U/S, labs)? Why? @ -None What meds were considered but not given or refused? Why? @ -None Did you discuss the management of the patient with other professionals (professionals i.e. JAYA Cruz, CATALOGUE CLERK, lab, RT, psych nurse, social security assessor, dining room hostess, teacher, police liaison officer, returned case inspector)? Give summary @ -No Was smoking cessation discussed for >3mins.? @ -No Was critical care preformed (if so, how long)? @ -No Were there social determinants of health that impacted care today? How? (Homelessness, low income, unemployed, alcoholism, drug addiction, mathew sportation, low edu. Level, literacy, decrease access to med. care, fpc, rehab)? @ -No Was there de-escalation of care discussed even if they declined (Discuss DNR or withdrawal of care, Hospice)? DNR status @ -No What co-morbidities impacted this encounter? (DM, HTN, Smoking, COPD, CAD, Cancer, CVA, ARF, Chemo, Hep., AIDS, mental health diagnosis, sleep apnea, morbid obesity)? @ -Ischemic cardiomyopathy Was patient admitted / discharged? Hospital course, mention meds given and route, prescriptions, significant lab abnormalities, going to OR and other pertinent info. @ -44-year-old male with central chest pain significant cardiac history and chronic chest pain. EKG is sinus without ST segment elevation. Chest x-ray is clear. Patient did have some left arm symptoms as well and therefore CT CT brain was performed to rule out hemorrhage this was negative. Patient's laboratory test including CBC, CMP and troponin is unremarkable. Patient informed of test results. He does have good follow-up with cardiology and is agreeable with discharge at this time given the negative cardiac enzymes. Undiagnosed new problem with uncertain prognosis? @ -No Drug Therapy requiring intensive monitoring for toxicity (Heparin, Nitro, Insulin, Cardizem)? @ -No Were any procedures done? @ -No Diagnosis/symptom? @Chronic chest pain Acute, or Chronic, or Acute on Chronic? @ -Chronic Uncomplicated (without systemic symptoms) or Complicated (systemic symptoms)? @ -Default Side effects of treatment? @ -No Exacerbation, Progression, or Severe Exacerbation? @ -No Poses a threat to life or bodily function? How? (Chest pain, [place], [place], pneumonia, PE, COPD, DKA, ARF, appy, cholecystitis, CVA, Diverticulitis, Homicidal, Suicidal, threat to staff... and all critical care pts) @yes , ischemic cardiomyopathy history - Lab Data Result diagrams: 06/13/24 23:22 06/13/24 23:22 Lab Results 06/13/24 06/13/24 06/13/24 Range/Units 23:22 23:22 23:22 WBC 8.2 (3.8-10.6) k/uL RBC 6.80 H (4.30-5.90) m/uL Hgb 16.6 (13.0-17.5) gm/dL Hct 50.4 (39.0-53.0) % MCV 74.1 L (80.0-100.0) fL MCH 24.3 L (25.0-35.0) pg MCHC 32.8 (31.0-37.0) g/dL RDW 16.1 H (11.5-15.5) % Plt Count 243 (150-450) k/uL MPV 7.2 Neutrophils % 58 % Lymphocytes % 29 % Monocytes % 6 % Eosinophils % 4 % Basophils % 2 % Neutrophils # 4.7 (1.3-7.7) k/uL Lymphocytes # 2.4 (1.0-4.8) k/uL Monocytes # 0.5 (0-1.0) k/uL Eosinophils # 0.3 (0-0.7) k/uL Basophils # 0.1 (0-0.2) k/uL Anisocytosis Slight Microcytosis Slight PT 10.6 (10.0-12.5) sec INR 1.0 (<1.2) APTT 23.5 (22.0-30.0) sec Sodium 138 (137-145) mmol/L Potassium 4.3 (3.5-5.1) mmol/L Chloride 104 (98-107) mmol/L Carbon Dioxide 22 (22-30) mmol/L Anion Gap 12 mmol/L BUN 23 H (9-20) mg/dL Creatinine 1.00 (0.66-1.25) mg/dL Est GFR (CKD-EPI)AfAm >90 (>60 ml/min/1.73 sqM) Est GFR (CKD-EPI)NonAf >90 (>60 ml/min/1.73 sqM) Glucose 150 H (74-99) mg/dL Calcium 9.8 (8.4-10.2) mg/dL Magnesium 2.0 (1.6-2.3) mg/dL Total Bilirubin 0.8 (0.2-1.3) mg/dL AST 20 (17-59) U/L ALT 41 (4-49) U/L Alkaline Phosphatase 92 (38-126) U/L Troponin I (0.000-0.034) ng/mL Total Protein 8.0 (6.3-8.2) g/dL Albumin 4.8 (3.5-5.0) g/dL 06/13/24 Range/Units 23:22 WBC (3.8-10.6) k/uL RBC (4.30-5.90) m/uL Hgb (13.0-17.5) gm/dL Hct (39.0-53.0) % MCV (80.0-100.0) fL MCH (25.0-35.0) pg MCHC (31.0-37.0) g/dL RDW (11.5-15.5) % Plt Count (150-450) k/uL MPV Neutrophils % % Lymphocytes % % Monocytes % % Eosinophils % % Basophils % % Neutrophils # (1.3-7.7) k/uL Lymphocytes # (1.0-4.8) k/uL Monocytes # (0-1.0) k/uL Eosinophils # (0-0.7) k/uL Basophils # (0-0.2) k/uL Anisocytosis Microcytosis PT (10.0-12.5) sec INR (<1.2) APTT (22.0-30.0) sec Sodium (137-145) mmol/L Potassium (3.5-5.1) mmol/L Chloride (98-107) mmol/L Carbon Dioxide (22-30) mmol/L Anion Gap mmol/L BUN (9-20) mg/dL Creatinine (0.66-1.25) mg/dL Est GFR (CKD-EPI)AfAm (>60 ml/min/1.73 sqM) Est GFR (CKD-EPI)NonAf (>60 ml/min/1.73 sqM) Glucose (74-99) mg/dL Calcium (8.4-10.2) mg/dL Magnesium (1.6-2.3) mg/dL Total Bilirubin (0.2-1.3) mg/dL AST (17-59) U/L ALT (4-49) U/L Alkaline Phosphatase (38-126) U/L Troponin I <0.012 (0.000-0.034) ng/mL Total Protein (6.3-8.2) g/dL Albumin (3.5-5.0) g/dL Disposition Clinical Impression: Chronic chest pain Disposition: HOME SELF-CARE Condition: Fair Instructions (If sedation given, give patient instructions): Chest Pain (ED) Is patient prescribed a controlled substance at d/c from ED?: No Referrals: Carlo Espinal MD [Primary Care Provider] - 1-2 days Damion Hernandez MD [STAFF PHYSICIAN] - 1-2 days Time of Disposition: 02:14
[2024-06-13 23:51] LABS: Anisocytosis Slight; Basophils # (A) 0.1 k/uL (0-0.2); Basophils % (A) 2 %; Eosinophils # (A) 0.3 k/uL (0-0.7); Eosinophils % (A) 4 %; HCT 50.4 % (39.0-53.0); HGB 16.6 gm/dL (13.0-17.5); Lymphocytes # (A) 2.4 k/uL (1.0-4.8); Lymphocytes % (A) 29 %; MCH 24.3 pg (25.0-35.0); MCHC 32.8 g/dL (31.0-37.0); MCV 74.1 fL (80.0-100.0); Mean Platelet Volume 7.2; Microcytosis Slight; Monocytes # (A) 0.5 k/uL (0-1.0); Monocytes % (A) 6 %; Neutrophils # (A) 4.7 k/uL (1.3-7.7); Neutrophils % (A) 58 %; Platelet Count 243 k/uL (150-450); RDW 16.1 % (11.5-15.5); WBC 8.2 k/uL (3.8-10.6)
[2024-06-14 00:01] LABS: Partial Thromboplastin Time 23.5 sec (22.0-30.0); Prothrombin Time 10.6 sec (10.0-12.5)
--- NOTE | 2024-06-14 00:10 | XR ---
EXAMINATION TYPE: XR chest 2V DATE OF EXAM: 06/13/2024 11:34 PM COMPARISON: Multiple radiographs, with the most recent on 05/17/2024 TECHNIQUE: XR chest 2V Frontal and lateral views of the chest. CLINICAL INDICATION:Male, 44 years old with history of Chest Pain; FINDINGS: Lungs/Pleura: There is no evidence of pleural effusion, focal consolidation, or pneumothorax. Pulmonary vascularity: Unremarkable. Heart/mediastinum: Cardiomediastinal silhouette is unremarkable. Single-lead cardiac conduction devic e overlying the left hemithorax with lead projecting over the right ventricle. Musculoskeletal: No acute osseous pathology. IMPRESSION: No acute cardiopulmonary disease/process. [facility], , 06/14/2024 12:08 AM
[2024-06-14 00:16] LABS: ALT 41 U/L (4-49); AST 20 U/L (17-59); African American GFR (CKD) >90 (>60 ml/min/1.73 sqM); Albumin 4.8 g/dL (3.5-5.0); Alkaline Phosphatase 92 U/L (38-126); Anion Gap 12 mmol/L; Blood Urea Nitrogen 23 mg/dL (9-20); Calcium 9.8 mg/dL (8.4-10.2); Carbon Dioxide 22 mmol/L (22-30); Chloride 104 mmol/L (98-107); Glucose 150 mg/dL (74-99); Non-African American GFR(CKD) >90 (>60 ml/min/1.73 sqM); Potassium 4.3 mmol/L (3.5-5.1); Sodium 138 mmol/L (137-145); Total Bilirubin 0.8 mg/dL (0.2-1.3)
--- NOTE | 2024-06-14 00:23 | CT ---
EXAMINATION TYPE: CT brain wo con CT DLP: 1167.7 mGycm, Automated exposure control for dose reduction was used. DATE OF EXAM: 06/13/2024 11:54 PM COMPARISON: Multiple CT brain with most recent 05/11/2024. CLINICAL INDICATION:Male, 44 years old with history of left arm numbness, LT ARM NUMBNESS, PT HIT HEA D WHILE IN HOSPITAL A WEEK AGO TECHNIQUE: Brain: Multiple axial CT images of the brain were obtained without IV contrast. . Coronal and sagitta l reformats reviewed. FINDINGS: Brain: Extra-axial spaces: No abnormal extra-axial fluid collections. Ventricular system: Within normal limits Cerebral parenchyma: No acute intraparenchymal hemorrhage or mass effect. The conteh-white junction is well differentiated. Cerebellum: Unremarkable. Mass effect: No evidence of midline shift. Intracranial vasculature: unremarkable Soft tissues: Normal. Calvarium/osseous structures: No depressed skull fracture. Paranasal sinuses and mastoid air cells: The mastoid air cells are clear. Minimal mucosal thickening in the inferior right maxillary sinus with mucous retention cysts measuring up to 1.2 cm. The remaini ng paranasal sinuses are clear. Visualized orbits: Orbital contents are intact. IMPRESSION: No acute intracranial process. [facility], , 06/14/2024 12:21 AM
[2024-06-14] MEDS: MORPHINE SULFATE 4 MG/ML SYRINGE IVP STA (01:09)
[2024-06-14 03:51] VITALS: BP 127/66; PULSE 69; RESP 20; TEMP 98.2
== END 2024-06-14 03:57 | disposition home or self-care (01) ==
LOC: EC 22:56
DX: R07.89 Other chest pain (principal); I25.5 Ischemic cardiomyopathy; Z87.891 Personal history of nicotine dependence; Z88.0 Allergy status to penicillin
CPT/HCPCS: 36415; 70450; 71046; 80053; 83735; 84484; 85025; 85610; 85730; 93005; 96374; 99285

== ENCOUNTER 2024-06-16 19:06 | Inpatient (IN) | payer OTHER ==
--- NOTE | 2024-06-16 21:26 | ED ---
Chest Pain HPI - General Chief Complaint: Chest Pain Stated Complaint: chest pain, L side numbness Time Seen by Provider: 06/16/24 21:16 Source: patient Mode of arrival: ambulatory Limitations: no limitations - History of Present Illness Initial Comments: Patient is a 44-year-old male with history of previous DE and stents who presents with going into his third day of pain just to the left of the sternum that he states is similar to previous pain associated with DE. 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 The patient states that over the past hours it has been a little more severe so he presents here. The patient has had associated dyspnea, diaphoresis, nausea. He did take 81 milligram aspirin prior to coming here. MD Complaint: chest pain Onset/Timin -: days(s) Onset: during rest Pain Location: left chest Pain Radiation: none Severity: moderate, severe Quality: aching Consistency: constant Improves With: nothing Worsens With: nothing Anginal Symptoms: nausea, diaphoresis, dyspnea Treatments Prior to Arrival: none - Related Data Home Medications Medication Instructions Recorded Confirmed Insulin NPH Hum/Reg Insulin Hm 60 unit SQ BID 12/07/21 06/26/24 [humuLIN 70/30 Kwikpen] Ranolazine [Ranexa] 1,000 mg PO BID 03/11/24 06/26/24 Semaglutide [Ozempic] 1 mg SQ TH 03/11/24 06/26/24 Lidocaine 4% Patch 1 patch TRANSDERM DAILY 05/08/24 06/26/24 Sacubitril/Valsartan [Entresto 97 1 tab PO BID 06/26/24 06/26/24 mg-103 mg Tablet] Previous Rx's Medication Instructions Recorded Aspirin 81 mg PO DAILY #30 07/15/21 Nitroglycerin Sl Tabs [Nitrostat] 0.4 mg SUBLINGUAL Q5M PRN #30 tab 07/15/21 Ezetimibe [Zetia] 10 mg PO DAILY #90 tab 04/11/24 Mag Hydrox/Al Hydrox/Simeth 30 ml PO Q4HR PRN ml 04/11/24 [Maalox] Colchicine [Colcrys] 0.6 mg PO DAILY #30 each 05/02/24 Atorvastatin [Lipitor] 80 mg PO HS #30 tab 05/13/24 Empagliflozin [Jardiance] 25 mg PO DAILY #30 tab 05/13/24 Metoprolol Succinate [Toprol XL] 200 mg PO DAILY #30 tab 05/13/24 Ticagrelor [Brilinta] 90 mg PO BID #60 tab 05/13/24 Spironolactone [Aldactone] 25 mg PO DAILY #30 tablet 06/08/24 Gabapentin [Neurontin] 300 mg PO TID 30 Days #90 cap 06/24/24 Ipratropium-Albuterol Nebulize 3 ml INHALATION RT-TID 30 Days 06/24/24 [Duoneb 0.5 mg-3 mg/3 ml Soln] #120 each Isosorbide Mononitrate ER [Imdur] 120 mg PO DAILY 30 Days #30 tab 06/24/24 amLODIPine [Norvasc] 5 mg PO DAILY 30 Days #30 tab 06/24/24 Allergies Allergy/AdvReac Type Severity Reaction Status Date / Time Penicillins Allergy Unknown Verified 06/26/24 16:18 Childhood Review of Systems ROS Statement: Those systems with pertinent positive or pertinent negative responses have been documented in the HPI. ROS Other: All systems not noted in ROS Statement are negative. Constitutional: Denies: fever, chills Respiratory: Reports: dyspnea. Denies: cough, wheezes, hemoptysis Cardiovascular: Reports: chest pain. Denies: palpitations, edema, syncope Gastrointestinal: Reports: nausea. Denies: abdominal pain, vomiting, diarrhea, melena, hematochezia Genitourinary: Denies: dysuria, hematuria Musculoskeletal: Denies: back pain Skin: Denies: rash Neurological: Denies: headache, weakness, numbness EKG Findings - EKG Results: EKG: interpreted by ERMD, sinus rhythm, normal axis EKG shows: tachycardia (09 bpm) - Blocks, [place], Hypertrophy, ST Abn: AV and intraventricular conduction: intraventricular conduction delay - DE, Pacemaker, Normal: Myocardial infarction: septal DE (old age or indeterminate) Past Medical History Past Medical History: Coronary Artery Disease (CAD), Chest Pain / Angina, Heart Failure, Diabetes Mellitus, Hyperlipidemia, Hypertension, Myocardial Infarction (DE), Sleep Apnea/CPAP/BIPAP, Syncope Additional Past Medical History / Comment(s): AICD. IDDM type II. Neuropathy bilateral feet. 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 Migraines. Chronic back pain. R BKA (done 2023). Last Myocardial Infarction Date:: 2023 History of Any Multi-Drug Resistant Organisms: None Reported Past Surgical History: AICD, Heart Catheterization, Heart Catheterization With Stent, Orthopedic Surgery Additional Past Surgical History / Comment(s): 10/27/12 AICD, DFTs, PCI with 2 stents, R BKA. Past Anesthesia/Blood Transfusion Reactions: No Reported Reaction Date of Last Stent Placement:: 02/03/16 Type of Cardiac Device: AICD Device Placement Date:: 2012 Past Psychological History: Anxiety, Depression Smoking Status: Former smoker Past Alcohol Use History: None Reported Past Drug Use History: None Reported - Past Family History Mother Family Medical History: No Reported History Brother(s) Family Medical History: Myocardial Infarction (DE) Father Family Medical History: Liver Disease Sister(s) Additional Family Medical History / Comment(s): Huntings disease General Exam Limitations: no limitations General appearance: alert, in no apparent distress Head exam: Present: atraumatic, normocephalic Eye exam: Present: normal appearance. Absent: scleral icterus, conjunctival i njection ENT exam: Present: normal oropharynx Neck exam: Present: normal inspection Respiratory exam: Present: normal lung sounds bilaterally. Absent: respiratory distress, wheezes, rales, rhonchi, stridor, chest wall tenderness, accessory muscle use Cardiovascular Exam: Present: normal rhythm, tachycardia, normal heart sounds. Absent: systolic murmur, diastolic murmur, rubs, gallop GI/Abdominal exam: Present: soft. Absent: distended, tenderness, guarding, rebound, rigid, mass Extremities exam: Present: normal capillary refill, other (Left leg below-knee amputation). Absent: pedal edema, calf tenderness Back exam: Present: normal inspection. Absent: CVA tenderness (R), CVA tenderness (L) Neurological exam: Present: alert Skin exam: Present: warm, dry, intact, normal color. Absent: rash Course Vital Signs 06/16/24 06/16/24 06/16/24 19:10 21:20 21:24 Temperature 98.1 F Pulse Rate 110 H 98 Pulse Rate [ 100 Left Supine Radial] Respiratory 18 18 Rate Blood Pressure 126/96 152/102 O2 Sat by Pulse 98 98 Oximetry 06/16/24 06/16/24 06/17/24 22:22 22:47 00:00 Temperature Pulse Rate 88 85 87 Pulse Rate [ Left Supine Radial] Respiratory 17 18 16 Rate Blood Pressure 145/99 159/99 129/90 O2 Sat by Pulse 97 96 97 Oximetry 06/17/24 06/17/24 06/17/24 00:18 00:33 00:45 Temperature Pulse Rate 85 90 94 Pulse Rate [ Left Supine Radial] Respiratory 18 18 18 Rate Blood Pressure 130/97 159/98 144/104 O2 Sat by Pulse 95 97 94 L Oximetry 06/17/24 06/17/24 06/17/24 01:00 02:18 03:24 Temperature Pulse Rate 92 97 80 Pulse Rate [ Left Supine Radial] Respiratory 18 18 18 Rate Blood Pressure 139/98 131/93 113/76 O2 Sat by Pulse 95 97 96 Oximetry 06/17/24 06/17/24 06/17/24 05:05 06:03 07:40 Temperature Pulse Rate 87 87 77 Pulse Rate [ Left Supine Radial] Respiratory 18 18 Rate Blood Pressure 129/84 116/74 O2 Sat by Pulse 97 94 L Oximetry 06/17/24 06/17/24 07:47 11:11 Temperature 97.7 F Pulse Rate 75 85 Pulse Rate [ Left Supine Radial] Respiratory 18 16 Rate Blood Pressure 131/86 136/81 O2 Sat by Pulse 100 98 Oximetry Chest Pain MDM - MDM Was pt. sent in by a medical professional or institution (, PA, MOTOR VEHICLE LECTURER, urgent care, hospital, or detention...) When possible be specific @ -[No] Did you speak to anyone other than the patient for history (EMS, parent, family, police, friend...)? What history was obtained from this source @ -[No] Did you review nursing and triage notes (agree or disagree)? Why? @ -[I reviewed and agree with nursing and triage notes] Were old charts reviewed (outside hosp., previous admission, EMS record, old EKG, old radiological studies, urgent care reports/EKG's, detention records)? Report findings @ -[No old charts were reviewed] Differential Diagnosis (chest pain, altered mental status, abdominal pain women, abdominal pain men, vaginal bleeding, weakness, fever, dyspnea, syncope, headache, dizziness, GI bleed, back pain, seizure, CVA, palpatations, mental health, musculoskeletal)? @ -[Differential Chest Pain: Stable Angina, Unstable Angina, STEMI, NSTEMI Aortic Dissection, Pneumothorax, Musculoskeletal, Esophageal Spasm GERD, Cholecystitis, Pancreatitis, Zoster, this is not meant to be an all-inclusive list. EKG interpreted by me (3pts min.). @ -[I interpreted as above] X-rays interpreted by me (1pt min.). @ -[I interpreted as above CT interpreted by me (1pt min.). @ -[None done] U/S interpreted by me (1pt. min.). @ -[None done] What testing was considered but not performed or refused? (CT, X-rays, U/S, labs)? Why? @ -[None] What meds were considered but not given or refused? Why? @ -[None] Did you discuss the management of the patient with other professionals (professionals i.e. , PA, MOTOR VEHICLE LECTURER, lab, RT, psych nurse, social sciences department chair, executive officer special warfare team, teacher, delinquency prevention officer, cyanide case hardener)? Give summary @ -[Case discussed with admitting physician and treatment recommendations are incorporated. Cardiology on-call was paged and Was smoking cessation discussed for >3mins.? @ -[No] Was critical care preformed (if so, how long)? @ -[Yes, 35 minutes Were there social determinants of health that impacted care today? How? (Homelessness, low income, unemployed, alcoholism, drug addiction, transportation, low edu. Level, literacy, decrease access to med. care, fpc, rehab)? @ -[No] Was there de-escalation of care discussed even if they declined (Discuss DNR or withdrawal of care, Hospice)? DNR status @ -[No] What co-morbidities impacted this encounter? (DM, HTN, Smoking, COPD, CAD, Cancer, CVA, ARF, Chemo, Hep., AIDS, mental health diagnosis, sleep apnea, morbid obesity)? @ -[Diabetes, CAD Was patient admitted / discharged? Hospital course, mention meds given and route, prescriptions, significant lab abnormalities, going to OR and other pertinent info. @ -[Patient is 44-year-old man with history of CAD and multiple stents having s imilar chest pain. Patient started on heparin, as well as other medications. The symptoms have improved however not entirely abated. Patient is admitted to have further cardiology care Undiagnosed new problem with uncertain prognosis? @ -[No] Drug Therapy requiring intensive monitoring for toxicity (Heparin, Nitro, Insulin, Cardizem)? @ -[IV heparin Were any procedures done? @ -[No] Diagnosis/symptom? @ -Acute coronary syndrome, elevated troponin Acute hyperglycemia and diabetic patient Acute, or Chronic, or Acute on Chronic? @ -[Acute Uncomplicated (without systemic symptoms) or Complicated (systemic symptoms)? @ -[Uncomplicated Side effects of treatment? @ -[No] Exacerbation, Progression, or Severe Exacerbation? @ -[No] Poses a threat to life or bodily function? How? (Chest pain, [place], DE, pneumonia, PE, COPD, DKA, ARF, appy, cholecystitis, CVA, Diverticulitis, Homicidal, Suicidal, threat to staff... and all critical care pts) @ -[Yes, requires further cardiology evaluation All treatments are based on ideal body weight as in ED triage Disposition Clinical Impression: Hyperglycemia, Acute coronary syndrome with high troponin Disposition: ADMITTED IP TO THIS HOSP Condition: Serious Is patient prescribed a controlled substance at d/c from ED?: No
[2024-06-16] MEDS: ASPIRIN 81 MG PO STA (21:30)
[2024-06-16] MEDS: MORPHINE SULFATE 4 MG/ML SYRINGE IV STA ×2 (21:32→22:47)
[2024-06-16] MEDS: NITROGLYCERIN SL TABS 0.4 MG TAB SUBLINGUAL STA (21:32)
[2024-06-16 21:45] LABS: Basophils # (A) 0.1 k/uL (0-0.2); Basophils % (A) 1 %; Eosinophils # (A) 0.2 k/uL (0-0.7); Eosinophils % (A) 3 %; HCT 48.7 % (39.0-53.0); Hypochromasia Slight; Lymphocytes # (A) 1.8 k/uL (1.0-4.8); Lymphocytes % (A) 21 %; MCH 23.3 pg (25.0-35.0); MCHC 30.8 g/dL (31.0-37.0); MCV 75.5 fL (80.0-100.0); Mean Platelet Volume 7.1; Microcytosis Slight; Monocytes # (A) 0.6 k/uL (0-1.0); Monocytes % (A) 6 %; Neutrophils % (A) 68 %; Platelet Count 243 k/uL (150-450); RBC 6.45 m/uL (4.30-5.90); RDW 15.9 % (11.5-15.5); WBC 8.9 k/uL (3.8-10.6)
--- NOTE | 2024-06-16 21:46 | XR ---
EXAMINATION TYPE: XR chest 2V DATE OF EXAM: 06/16/2024 9:43 PM COMPARISON: Chest radiographs from 06/13/2024 TECHNIQUE: XR chest 2V Frontal and lateral views of the chest. CLINICAL INDICATION:Male, 44 years old with history of Chest Pain; FINDINGS: Lungs/Pleura: There is no evidence of pleural effusion, focal consolidation, or pneumothorax. Pulmonary vascularity: Unremarkable. Heart/mediastinum: Cardiomediastinal silhouette is unremarkable. Single-lead cardiac conduction devic e overlying the left hemithorax with lead projecting over the right ventricle. Musculoskeletal: No acute osseous pathology. IMPRESSION: No acute cardiopulmonary disease/process. [facility], , 06/16/2024 9:44 PM
[2024-06-16 21:57] LABS: INR 0.9 (<1.2); Partial Thromboplastin Time 23.4 sec (22.0-30.0); Prothrombin Time 10.2 sec (10.0-12.5)
[2024-06-16 22:02] LABS: ALT 23 U/L (4-49); AST 18 U/L (17-59); African American GFR (CKD) >90 (>60 ml/min/1.73 sqM); Albumin 4.2 g/dL (3.5-5.0); Alkaline Phosphatase 89 U/L (38-126); Anion Gap 10 mmol/L; Blood Urea Nitrogen 18 mg/dL (9-20); Calcium 8.9 mg/dL (8.4-10.2); Carbon Dioxide 23 mmol/L (22-30); Chloride 104 mmol/L (98-107); Glucose 264 mg/dL (74-99); Magnesium 2.2 mg/dL (1.6-2.3); Non-African American GFR(CKD) >90 (>60 ml/min/1.73 sqM); Potassium 4.4 mmol/L (3.5-5.1); Sodium 137 mmol/L (137-145); Total Bilirubin 0.6 mg/dL (0.2-1.3); Total Protein 7.2 g/dL (6.3-8.2)
[2024-06-16] MEDS: NITROGLYCERIN OINT 1 INCH/GM PACKET TOPICAL STA (22:50)
[2024-06-16] MEDS: HYDROmorphone 1 MG/ML 1 ML SYRINGE IVP STA (22:51)
[2024-06-16] MEDS: HEPARIN SOD,PORK IN 0.45% NACL 25,000 UNIT in 0.45% NACL 1 250ML.BAG IV SCH (22:58)
[2024-06-16] MEDS: HEPARIN SODIUM 1,000 UN/ML (10ML VL) IV ONE (23:00)
[2024-06-16] MEDS: INSULIN REGULAR 100 UNIT/ML VIAL (IV) SQ STA (23:59)
[2024-06-17] MEDS: NITROGLYCERIN-D5W PMX 50 MG in DEXTROSE/WATER 1 250ML.BAG IV ONE
[2024-06-17] MEDS ORDERED: NITROGLYCERIN SL TABS 0.4 MG TAB SUBLINGUAL PRN ×3 (00:06→12:48)
[2024-06-17] MEDS: HYDROmorphone 1 MG/ML 1 ML SYRINGE IVP STA (00:48)
--- NOTE | 2024-06-17 03:02 | HP ---
HISTORY AND PHYSICAL with NE. Cardiology saw him in the ER. Positive troponin x1. Associated dyspnea, diaphoresis, nausea, took some aspirin all the way here, moderate to severe aching chest associated with diaphoresis and dyspnea. Home medications reviewed. EKG showed sinus rhythm. PAST MEDICAL HISTORY: Coronary artery disease, chest pain, angina, diabetes mellitus, hypertension, sleep apnea, syncope, CPAP, migraines. SURGICAL HISTORY: AICD, heart catheterization with stent. FAMILY HISTORY: Sister with liver disease. PHYSICAL EXAMINATION: VITAL SIGNS: Reviewed. CARDIOVASCULAR: S1, S2. LUNGS: Transmitted upper sounds. GI: Soft. CARDIOVASCULAR: Tachycardic. HEMATOLOGY: Negative Homans. GI: Soft, nontender. NEUROLOGIC: Cranial nerves intact. PSYCH: Fair mood and affect. VITAL SIGNS: Temp 98.1, pulse 98 to 110, respiratory rate 18 to 20, blood pressure 120s over 90s to 150s over 100. Elevated troponin, non STEMI, chest pain. Cardiology consult. Await further recommendations. Prognosis guarded. Serial troponins. Home medicines reordered. Prognosis guarded. MMODL / IJN: [id number] /
[2024-06-17 04:53] LABS: Anisocytosis Slight; Basophils # (A) 0.1 k/uL (0-0.2); Basophils % (A) 1 %; Eosinophils # (A) 0.3 k/uL (0-0.7); Eosinophils % (A) 3 %; HCT 43.6 % (39.0-53.0); HGB 13.7 gm/dL (13.0-17.5); Hypochromasia Slight; Lymphocytes # (A) 2.4 k/uL (1.0-4.8); Lymphocytes % (A) 28 %; MCH 23.6 pg (25.0-35.0); MCHC 31.3 g/dL (31.0-37.0); MCV 75.2 fL (80.0-100.0); Mean Platelet Volume 7.4; Microcytosis Slight; Monocytes # (A) 0.6 k/uL (0-1.0); Monocytes % (A) 7 %; Neutrophils % (A) 59 %; Platelet Count 231 k/uL (150-450); WBC 8.5 k/uL (3.8-10.6)
[2024-06-17 05:02] LABS: INR 0.9 (<1.2); Partial Thromboplastin Time 26.1 sec (22.0-30.0); Prothrombin Time 10.5 sec (10.0-12.5)
[2024-06-17] MEDS: HEPARIN SODIUM 1,000 UN/ML (10ML VL) IV PRN (05:24)
[2024-06-17] MEDS: IPRATROPIUM-ALBUTEROL 3 ML NEB INHALATION SCH (07:37)
[2024-06-17 08:00] LABS: Glucose,Whole Blood 189 mg/dL (70-110)
[2024-06-17] MEDS: EZETIMIBE 10 MG TAB PO SCH (08:30)
[2024-06-17] MEDS: SPIRONOLACTONE 25 MG TAB PO SCH (08:30)
[2024-06-17] MEDS: TICAGRELOR 90 MG TAB PO SCH (08:30)
[2024-06-17] MEDS: DAPAGLIFLOZIN PROPANEDIOL 10 MG TABLET PO SCH (08:30)
[2024-06-17] MEDS: METOPROLOL SUCCINATE (ER) 100 MG TAB.ER.24H PO SCH (08:30)
[2024-06-17] MEDS: ISOSORBIDE MONONITRATE ER 60 MG TAB.ER.24H PO SCH (08:30)
[2024-06-17] MEDS: RANOLAZINE 500 MG TAB.ER.12H PO SCH (08:30)
[2024-06-17] MEDS: ASPIRIN 81 MG PO SCH (08:31)
[2024-06-17] MEDS: SACUBITRIL/VALSARTAN 49 MG-51 MG TABLET PO SCH (08:45)
[2024-06-17] MEDS ORDERED: ACETAMINOPHEN TAB 325 MG TAB PO PRN (09:49)
[2024-06-17] MEDS ORDERED: ALPRAZolam 0.5 MG TAB PO PRN (11:07)
[2024-06-17] MEDS ORDERED: ALPRAZolam 0.25 MG TAB PO PRN (11:07)
[2024-06-17] MEDS: HEPARIN SODIUM,PORCINE (1 ML) 2,500 UNIT in SODIUM CHLORIDE 0.9% 250 ML IRRIGATION PRN (11:26)
[2024-06-17] MEDS: HEPARIN SODIUM,PORCINE 10,000 UNIT in SODIUM CHLORIDE 0.9% 1,000 ML IRRIGATION PRN (11:26)
[2024-06-17] MEDS: MIDAZOLAM 2 MG/2 ML VIAL IVP ONE (11:48)
[2024-06-17] MEDS: SODIUM CHLORIDE 0.9% 500 ML 500 ML IV ONE (11:48)
[2024-06-17] MEDS: LIDOCAINE 1% INJ 10MG/ML (20 ML MDV) SQ ONE (11:51)
[2024-06-17] MEDS: VERAPAMIL SYRINGE (5 MG/10 ML) INTRAARTER ONE (11:57)
[2024-06-17] MEDS: HEPARIN SODIUM 1,000 UN/ML (10ML VL) IVP ONE (12:00)
[2024-06-17] MEDS: IOPAMIDOL-370 100ML BTL INJ ONE ×2 (12:35→12:51)
[2024-06-17] MEDS ORDERED: ZOLPIDEM 5 MG TAB PO PRN (12:48)
[2024-06-17] MEDS ORDERED: ATROPINE SULFATE 0.1 MG/ML 10ML SYRINGE IV PRN (12:48)
[2024-06-17] MEDS ORDERED: MAG HYDROX/AL HYDROX/SIMETH 30 ML CUP PO PRN (12:48)
[2024-06-17] MEDS ORDERED: RX INFO: IV CONTRAST WAS GIVEN 1 EACH MISC MISCELLANE PRN (12:48)
--- NOTE | 2024-06-17 12:56 | P.PCN ---
Date of Procedure: 06/17/24 Operative Findings: CARDIAC CATHETERIZATION AND PERCUTANEOUS CORONARY INTERVENTION PERFORMING PHYSICIAN: Damion Hernandez MD, [facility] PROCEDURE PERFORMED: 1. Selective right and left coronary angiogram and left heart catheterization 2. Successful stenting of mid LAD using 3.5 x 38 mm Xience KIERA with an excel lent angiographic results 3. Adjunctive use of IVUS and IFR 4. Ultrasound-guided access of the right radial artery INDICATION: Acute non-ST elevation myocardial infarction COMPLICATION: None APPROACH: Right radial artery LEVEL OF SEDATION: Moderate with the sedation time off 60 minutes PROCEDURE DESCRIPTION: After obtaining informed consent the patient was brought to the cardiac Relations Director with right radial artery was cannulated using micropuncture technique under ultrasound guidance a micropuncture wire passed easily then I placed a 6 [place] 11 cm sheath at the right radial artery. I gave the patient 2 mg of verapamil intra-arterial and subsequently heparin was given with continuous ACT monitoring. Subsequently I did decide to pursue with IFR of the LAD. I did left coronary angiogram using JL 3.5 guiding catheter. Subsequently I did 0 the Dobler wire and equalized between the Dobler wire and guiding catheter which was JL 3 5 guiding catheter. Subsequently the left main was engaged and and then I did wire the LAD using the Dobler wire. I did an IFR and that came in to be significantly abnormal at 0.67. That was repeated with pullback and normalization of the IFR or normal IFR in the mid LAD indicating that the mid to distal LAD segment was flow-limiting and at that point I decided to stent that segment. I did IVUS which showed a diameter around 3.0 to 3.25 mm. Pr edilatation was performed using 3 mm NC balloon before I deployed 3.5 x 38 mm stent where the stent was positioned under fluoroscopy guidance and deployed under fluoroscopy does not postdilated using 3.5 mm noncompliant balloon was final angiogram showing excellent angiographic results and the procedure was completed with no complication. After that selective right coronary angiogram performed using JR4 catheter. Left heart catheterization was performed and showed an LVEDP about 20 mm andrews SELECTIVE CORONARY ANGIOGRAM: The right coronary artery: Large caliber vessel and a dominant vessel with multiple layers of stent in the mid LAD. The LAD gives rise into a PDA which has an ostial lesion appears to be in the range of 70 to 80% Left main: Is angiographically normal The left circumflex: Is chronically occluded The left anterior descending artery: The stent in the proximal LAD appeared to be patent. There was KUMAR II flow in the diagonal branch. The LAD in the midportion has a tubular lesion appears to be in the range of 60% but documented to be flow-limiting by Doppler wire HEMODYNAMICS: The LVEDP was about 20 mmHg with no significant gradient across aortic valve CONCLUSION: 1. Patent stent in the proximal LAD. Intermediate disease involving the mid LAD documented to be flow-limiting by Doppler wire. I did PCI of the LAD. KUMAR II flow was identified and a medium size diagonal branch 2. 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 Severe disease involving the PDA and PLV branches of the RCA with multiple layers of stent 4. Evaded left-sided filling pressure POSTPROCEDURE MANAGEMENT: 1. Dual antiplatelet therapy using aspirin and Brilinta for 12 month 2. Aggressive cholesterol control 3. Follow-up with the patient 4. Consider PCI of the right coronary artery if the patient remains symptomatic
[2024-06-17] MEDS: SODIUM CHLORIDE 0.9% 1,000 ML in EMPTY BAG 1 BAG IV SCH (13:07)
[2024-06-17] MEDS: ASPIRIN 81 MG PO STA (13:29)
[2024-06-17] MEDS: ATORVASTATIN 80 MG TAB PO STA (13:29)
--- NOTE | 2024-06-17 13:35 | P.CRDCN ---
History of Present Illness Consult date: 06/17/24 Consult reason: chest pain History of present illness: This is a 44-year-old male patient of Dr. Hernandez with past medical history of CAD with known chronic total occlusion of the RCA and left circumflex and stenting of the LAD, severe ischemic cardiomyopathy with EF of 30 to 35% status post AICD, hypertension, dyslipidemia, overweight, right below the knee amputation, issues in the past with noncompliance. Patient has had multiple hospitaliza tions and cardiac catheterizations/PCI since March 2024 and in April of this year. Patient had a recent hospitalization and on 05/20 underwent Lexiscan stress test that revealed a large area of previous inferior lateral wall infarct with findings compatible with inducible karthikeyan-infarct ischemia extending to involve the lateral wall. EF 22%. Patient was cleared for discharge with plan to follow-up in the office. Patient had a subsequent hospitalization with elevated troponins and initially treated with heparin drip. He was started on Cardizem for antianginal and was cleared for discharge to follow-up with Dr. Hernandez. Patient states he he was at the office for Dr. Hernandez yesterday and he was having chest pain and was advised to go to the emergency center. He states that Dr. Hernandez discussed with him possibility of heart transplant at [facility]. Patient states he was having pain on the left side of his chest that went up to his neck and it was on and off all day yesterday. Patient has been started on heparin drip and nitroglycerin drip. He thinks nitroglycerin helped a little bit. He is also on Nitropaste. He thinks the pain medications help more than the nitroglycerin. He is complaining of severe headache for which Tylenol will be ordered. Dr. Jensen contacted Dr. Hernandez regarding patient's plan. Options were provided to the patient and it was decided that patient would undergo a cardiac catheterization for further evaluation of the arteries. He is agreeable to move forward with this. -EKG: Sinus rhythm with ventricular conduction delay. -Laboratory studies: Troponin 0.126, 0.172, 0.188. Creatinine 0.94. Hemoglobin 13.7. -Home cardiac medications: Aspirin 81 mg daily, atorvastatin 80 mg at bedtime, Jardiance 25 mg daily, Zetia 10 mg daily, Imdur 60 mg daily, Toprol XL 200 mg daily, Nitrostat, Ranexa 1000 mg twice daily, Xarelto 2.5 mg twice daily, Entresto 49-51 mg twice daily, Brilinta 90 mg twice daily, spironolactone 12.5 mg daily. Patient is also on Ozempic. -Cardiac catheterization performed 04/08/2024 revealed patent stent in the mid and distal LAD and CEMENTING MACHINE OPERATOR of the RCA and CEMENTING MACHINE OPERATOR of the left circumflex. Subsequently, PTCA 04/10/2024 of both the PDA and PLV branches of the RCA was performed. -04/29/2024 cardiac catheterization finding patent stent in the mid and distal left anterior descending artery. Chronic total occlusion of the left circumflex. Intermediate to severe disease involving the mid RCA documented to be flow-limiting by Doppler wire and in the same setting, successful stenting of the mid RCA and PLB branch of the RCA. -05/12/2024 cardiac catheterization revealed patent stent to the LAD diagonal system. CEMENTING MACHINE OPERATOR of the left circumflex and left circumflex fills by collaterals. Severe in-stent restenosis involving the mid RCA with multiple layers of stent. Balloon angioplasty was performed with no stenting of the RCA. Mildly elevated left-sided filling pressure. -Limited echocardiogram performed on 05/10/2024 revealed EF of 35%, RVSP 38. Negative bubble study. No pericardial effusion. -Lexiscan stress test performed on 05/20/2024 revealed a large area of previous inferior lateral wall infarct with findings compatible with inducible karthikeyan- infarct ischemia extending to involve the lateral wall. EF 22%. Review Of Systems: At the time of my exam: CONSTITUTIONAL: Denies fever or chills. HEENT: Denies blurred vision, vision changes, or eye pain. Denies hemoptysis CARDIOVASCULAR: Reports chest pain. Denies orthopnea. Denies PND. Denies palpitations RESPIRATORY: Denies shortness of breath. GASTROINTESTINAL: Denies abdominal pain. Denies nausea or vomiting. HEMATOLOGIC: Denies bleeding disorders. GENITOURINARY: Denies any blood in urine. SKIN: Denies puritis. Denies rash. Physical examination: Gen: This is a 44-year-old male in no acute distress. VS: reviewed HEENT: Head is atraumatic, normocephalic. Pupils equal, round. Sclerae is anicteric. NECK: Supple. No JVD. LUNGS: Clear to auscultation. No wheezes or rhonchi. No intercostal retractions. HEART: Regular rate and rhythm. Systolic murmur. ABDOMEN: Soft No tenderness. EXTREMITIES: Right below the knee amputation. No pedal edema. No calf tenderness. NEUROLOGICAL: Patient is awake, alert and oriented x3. Assessment: NSTEMI Several hospitalizations for NSTEMI Severe CAD status post multiple PCI as above Dyslipidemia Diabetes mellitus type 2 Obesity with BMI of 36 Right below the knee amputation Ischemic cardiomyopathy with EF of 35% Status post AICD Hypertension PAD on Xarelto vascular dosing Plan: Resume patient's home cardiac medications Continue heparin drip Continue nitroglycerin drip Patient will be scheduled for cardiac catheterization with Dr. Hernandez. Further recommendations to follow based upon clinical course Thank you kindly for this consultation. Nurse practitioner note has been reviewed, I agree with documented findings and plan of care. Patient was seen and examined. Past Medical History Past Medical History: Coronary Artery Disease (CAD), Chest Pain / Angina, Heart Failure, Diabetes Mellitus, Hyperlipidemia, Hypertension, Myocardial Infarction (AL), Sleep Apnea/CPAP/BIPAP, Syncope Additional Past Medical History / Comment(s): AICD. IDDM type II. Neuropathy bilateral feet. 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 Migraines. Chronic back pain. R BKA (done 2023). Last Myocardial Infarction Date:: 2023 History of Any Multi-Drug Resistant Organisms: None Reported Past Surgical History: AICD, Heart Catheterization, Heart Catheterization With Stent, Orthopedic Surgery Additional Past Surgical History / Comment(s): 10/27/12 AICD, DFTs, PCI with 2 stents, R BKA. Past Anesthesia/Blood Transfusion Reactions: No Reported Reaction Date of Last Stent Placement:: 02/03/16 Type of Cardiac Device: AICD Device Placement Date:: 2012 Past Psychological History: Anxiety, Depression Smoking Status: Former smoker Past Alcohol Use History: None Reported Past Drug Use History: None Reported - Past Family History Mother Family Medical History: No Reported History Brother(s) Family Medical History: Myocardial Infarction (AL) Father Family Medical History: Liver Disease Sister(s) Additional Family Medical History / Comment(s): Huntings disease Medications and Allergies Home Medications Medication Instructions Recorded Confirmed Type Aspirin 81 mg PO DAILY #30 07/15/21 06/17/24 Rx Nitroglycerin Sl Tabs [Nitrostat] 0.4 mg SUBLINGUAL Q5M PRN #30 tab 07/15/21 06/17/24 Rx Insulin NPH Hum/Reg Insulin Hm 60 unit SQ BID 12/07/21 06/17/24 History [humuLIN 70/30 Kwikpen] Ranolazine [Ranexa] 1,000 mg PO BID 03/11/24 06/17/24 History Semaglutide [Ozempic] 1 mg SQ TH 03/11/24 06/17/24 History Ezetimibe [Zetia] 10 mg PO DAILY #90 tab 04/11/24 06/17/24 Rx Mag Hydrox/Al Hydrox/Simeth 30 ml PO Q4HR PRN ml 04/11/24 06/17/24 Rx [Maalox] Colchicine [Colcrys] 0.6 mg PO DAILY #30 each 05/02/24 06/17/24 Rx Lidocaine 4% Patch 1 patch TRANSDERM DAILY 05/08/24 06/17/24 History Atorvastatin [Lipitor] 80 mg PO HS #30 tab 05/13/24 06/17/24 Rx Empagliflozin [Jardiance] 25 mg PO DAILY #30 tab 05/13/24 06/17/24 Rx Metoprolol Succinate [Toprol XL] 200 mg PO DAILY #30 tab 05/13/24 06/17/24 Rx Rivaroxaban [Xarelto] 2.5 mg PO BID #60 tab 05/13/24 06/17/24 Rx Sacubitril/Valsartan [Entresto 49 1 tab PO BID #60 tab 05/13/24 06/17/24 Rx mg-51 mg Tablet] Ticagrelor [Brilinta] 90 mg PO BID #60 tab 05/13/24 06/17/24 Rx Isosorbide Mononitrate ER [Imdur] 60 mg PO BID #60 tab 06/08/24 06/17/24 Rx Spironolactone [Aldactone] 25 mg PO DAILY #30 tablet 06/08/24 06/17/24 Rx Allergies Allergy/AdvReac Type Severity Reaction Status Date / Time Penicillins Allergy Unknown Verified 06/17/24 07:06 Childhood Physical Exam Vitals: Vital Signs Temp Pulse Pulse Resp BP Pulse Ox 06/17/24 07:47 97.7 F 75 18 131/86 100 02/26/25 07:40 77 06/17/24 06:03 87 18 116/74 94 L 06/17/24 05:05 87 18 129/84 97 06/17/24 03:24 80 18 113/76 96 06/17/24 02:18 97 18 131/93 97 06/17/24 01:00 92 18 139/98 95 06/17/24 00:45 94 18 144/104 94 L 06/17/24 00:33 90 18 159/98 97 06/17/24 00:18 85 18 130/97 95 06/17/24 00:00 87 16 129/90 97 06/16/24 22:47 85 18 159/99 96 06/16/24 22:22 88 17 145/99 97 06/16/24 21:24 98 18 152/102 98 06/16/24 21:20 100 06/16/24 19:10 98.1 F 110 H 18 126/96 98 Intake and Output 06/16/24 06/17/24 06/17/24 22:59 06:59 14:59 Intake Total 66.111 Balance 66.111 Intake: Intake, IV Titration 66.111 Amount Heparin Sod,Pork in 0.45% 64.686 NaCl 25,000 unit In 0.45 % NaCl 1 250ml.bag @ 7.99 UNITS/KG/HR 10.003 mls/ hr IV .Q24H [facility] Rx#: [id number] Nitroglycerin-D5w Pmx 50 1.425 mg In Dextrose/Water 1 250ml.bag @ 10 MCG/MIN 3 mls/hr IV .Q24H [facility] Rx#: [id number] Other: Weight 125.191 kg Results 06/17/24 04:18 06/16/24 21:28 Cardiac Enzymes 06/16/24 06/16/24 06/17/24 Range/Units 21:28 21:28 00:13 AST 18 (17-59) U/L Troponin I 0.126 H* 0.172 H* (0.000-0.034) ng/mL 06/17/24 Range/Units 04:18 AST (17-59) U/L Troponin I 0.188 H* (0.000-0.034) ng/mL Coagulation 06/16/24 06/17/24 Range/Units 21:28 04:18 PT 10.2 10.5 (10.0-12.5) sec APTT 23.4 26.1 (22.0-30.0) sec CBC 06/16/24 06/17/24 Range/Units 21: 04:18 WBC 8.9 8.5 (3.8-10.6) k/uL RBC 6.45 H 5.80 (4.30-5.90) m/uL Hgb 15.0 13.7 (13.0-17.5) gm/dL Hct 48.7 43.6 (39.0-53.0) % Plt Count 243 231 (150-450) k/uL Comprehensive Metabolic Panel 06/16/24 Range/Units 21: Sodium 137 (137-145) mmol/L Potassium 4.4 (3.5-5.1) mmol/L Chloride 104 (98-107) mmol/L Carbon Dioxide 23 (22-30) mmol/L BUN 18 (9-20) mg/dL Creatinine 0.94 (0.66-1.25) mg/dL Glucose 264 H (74-99) mg/dL Calcium 8.9 (8.4-10.2) mg/dL AST 18 (17-59) U/L ALT 23 (4-49) U/L Alkaline Phosphatase 89 (38-126) U/L Total Protein 7.2 (6.3-8.2) g/dL Albumin 4.2 (3.5-5.0) g/dL Current Medications Generic Name Dose Route Start Last Admin Trade Name Freq PRN Reason Stop Dose Admin Albuterol/Ipratropium 3 ml 06/17/24 08:00 06/17/24 07:37 Ipratropium-Albuterol 3 Ml Neb INHALATION 3 ml RT-TID KSENIA Administration Aspirin 81 mg 06/17/24 09:00 06/17/24 08:31 Aspirin 81 Mg PO 81 mg DAILY KSENIA Administration Atorvastatin Calcium 80 mg 06/17/24 21:00 Atorvastatin 80 Mg Tab PO HS KSENIA Dapagliflozin 10 mg 06/17/24 09:00 06/17/24 08:30 Dapagliflozin Propanediol 10 Mg Tablet PO 10 mg DAILY KSENIA Administration Ezetimibe 10 mg 06/17/24 09:00 06/17/24 08:30 Ezetimibe 10 Mg Tab PO 10 mg DAILY KSENIA Administration Heparin Sodium (Porcine) 0 unit 06/16/24 22:27 06/17/24 05:24 Heparin Sodium 1,000 Un/Ml (10ml Vl) IV 4,000 unit PER PROTOCOL PRN Administration Low PTT Protocol Heparin Sodium/Sodium Chloride 250 mls @ 10.003 mls/hr 06/16/24 22:30 06/17/24 05:26 25,000 unit/ Sodium Chloride IV 10.99 units/kg/hr .Q24H KSENIA 13.758 mls/hr Titration Protocol 7.99 UNITS/KG/HR Nitroglycerin/Dextrose 50 mg/ 250 mls @ 3 mls/hr 06/16/24 23:18 06/17/24 00: 25 IV Solution IV 06/17/24 23:17 20 mcg/min .Q24H ONE 6 mls/hr Titration Protocol 10 MCG/MIN Isosorbide Mononitrate 60 mg 06/17/24 09:00 06/17/24 08:30 Isosorbide Mononitrate Er 60 Mg Tab.Er.24h PO 60 mg BID KSENIA Administration Metoprolol Succinate 200 mg 06/17/24 09:00 06/17/24 08:30 Metoprolol Succinate (Er) 100 Mg Tab.Er.24h PO 200 mg DAILY KSENIA Administration Nitroglycerin 0.4 mg 06/17/24 00:06 Nitroglycerin Sl Tabs 0.4 Mg Tab SUBLINGUAL Q5M PRN Chest Pain Ranolazine 1,000 mg 06/17/24 09:00 06/17/24 08:30 Ranolazine 500 Mg Tab.Er.12h PO 1,000 mg BID KSENIA Administration Sacubitril/Valsartan 1 each 06/17/24 09:00 06/17/24 08:45 Sacubitril/Valsartan 49 Mg-51 Mg Tablet PO 1 each BID KSENIA Administration Spironolactone 25 mg 06/17/24 09:00 06/17/24 08:30 Spironolactone 25 Mg Tab PO 25 mg DAILY KSENIA Administration Ticagrelor 90 mg 06/17/24 09:00 06/17/24 08:30 Ticagrelor 90 Mg Tab PO 90 mg BID KSENIA Administration Intake and Output 06/16/24 06/17/24 06/17/24 22:59 06:59 14:59 Intake Total 66.111 Balance 66.111 Intake: Intake, IV Titration 66.111 Amount Heparin Sod,Pork in 0.45% 64.686 NaCl 25,000 unit In 0.45 % NaCl 1 250ml.bag @ 7.99 UNITS/KG/HR 10.003 mls/ hr IV .Q24H [facility] Rx#: [id number] Nitroglycerin-D5w Pmx 50 1.425 mg In Dextrose/Water 1 250ml.bag @ 10 MCG/MIN 3 mls/hr IV .Q24H [facility] Rx#: [id number] Other: Weight 125.191 kg 06/17/24 04:18 06/16/24 21:28
[2024-06-17] MEDS: MORPHINE SULFATE 2 MG/ML SYRINGE IVP PRN (16:01)
[2024-06-17 16:27] VITALS: BMI 37.4
[2024-06-17 16:50] LABS: Glucose,Whole Blood 235 mg/dL (70-110)
[2024-06-17] MEDS: ATORVASTATIN 80 MG TAB PO SCH (19:47)
[2024-06-17 20:21] LABS: Glucose,Whole Blood 269 mg/dL (70-110)
[2024-06-17] MEDS: INSULIN NPL/INSULIN LISPRO 100 UNIT/ML 10 ML VL (Humalog 75/25) SQ SCH (23:24)
[2024-06-18 05:56] LABS: Glucose,Whole Blood 147 mg/dL (70-110)
[2024-06-18 08:05] LABS: African American GFR (CKD) >90 (>60 ml/min/1.73 sqM); Non-African American GFR(CKD) >90 (>60 ml/min/1.73 sqM)
[2024-06-18] MEDS ORDERED: ASPIRIN 325 MG TAB PO SCH (09:00)
--- NOTE | 2024-06-18 10:08 | CT ---
EXAMINATION TYPE: CT chest wo con DATE OF EXAM: 06/18/2024 COMPARISON: Chest CT June 15, 2019 HISTORY: Pleural Effusion CT DLP: 935.1 mGycm. Automated Exposure Control for Dose Reduction was Utilized. TECHNIQUE: CT scan of the thorax is performed without IV contrast. FINDINGS: LUNGS: There is occasional micronodule in the periphery of the lower lungs. No focal consolidation. N o pleural effusion or pneumothorax seen bilaterally MEDIASTINUM: Lack of IV contrast is noted to limit evaluation for mediastinal and especially hilar ad enopathy. There are no definitive new greater than 1 cm mediastinal lymph nodes. No cardiomegaly or pericardial effusion is seen. Single lead pacemaker/defibrillator is redemonstrated. OTHER: Small degree of subareolar gynecomastia is again seen. IMPRESSION: No suspicious acute pulmonary process or pleural effusion seen bilaterally. [facility], , 06/18/2024 10:06 AM
[2024-06-18 10:37] LABS: Chol/HDL Ratio 4.87 Ratio; LDL Cholesterol,Calculated 52.7 mg/dL (0.0-131.0)
[2024-06-18 11:20] LABS: Glucose,Whole Blood 78 mg/dL (70-110)
--- NOTE | 2024-06-18 12:15 | CA ---
Transthoracic Echo Report Name: Shaun Roldan Age: 44 Gender: M : 1980 Exam Date: 06/18/2024 09:14 Exam Location: [place] [facility] Ht (in): 72 Wt (lb): 276 Ordering Physician: Carlo Espinal MD Attending/Referring Phys: [employer] Advisor Pauly Adames RDCS Procedure CPT: Indications: CAD Cardiac Hx: Technical Quality: Fair Contrast 1: Definity Total Dose (mL): 2 Contrast 2: Total Dose (mL): MEASUREMENTS (Male / Female) Normal Values 2D ECHO LV Diastolic Diameter PLAX 6.1 cm 4.2 - 5.9 / 3.9 - 5.3 cm LV Systolic Diameter PLAX 5.3 cm IVS Diastolic Thickness 1.2 cm 0.6 - 1.0 / 0.6 - 0.9 cm LVPW Diastolic Thickness 1.1 cm 0.6 - 1.0 / 0.6 - 0.9 cm LV Relative Wall Thickness 0.4 RV Internal Dim ED PLAX 2.9 cm LA Systolic Diameter LX 5.7 cm 3.0 - 4.0 / 2.7 - 3.8 cm M-MODE Aortic Root Diameter MM 3.3 cm LA Systolic Diameter MM 5.4 cm LA Ao Ratio MM 1.6 AV Cusp Separation MM 2.0 cm FINDINGS Left Ventricle Left ventricular ejection fraction is estimated at 20-25 %. Mildly increased septal wall thickness. Mildly increased left ventricular diastolic diameter. Severely reduced global left ventricular systolic function. Right Ventricle Right Atrium Normal right atrial size. Catheter/pacemaker wire in the right atrial cavity. Left Atrium Severely increased left atrial diameter. Mitral Valve Aortic Valve Tricuspid Valve Pulmonic Valve Pericardium No pericardial or pleural effusion. Aorta Normal size aortic root and proximal ascending aorta. CONCLUSIONS LVEF 20-25 %. Infero-lateral wall motion abnormality PPM with RA and RV Sever LA dilatation Previewed by: Dr Federico Esposito (Electronically Signed) Final Date: 18 June 2024 12:15
--- NOTE | 2024-06-18 12:30 | P.PN ---
Subjective Progress Note Date: 06/18/24 Consult reason: chest pain History of present illness: This is a 44-year-old male patient of Dr. Hernandez with past medical history of CAD with known chronic total occlusion of the RCA and left circumflex and stenting of the LAD, severe ischemic cardiomyopathy with EF of 30 to 35% status post AICD, hypertension, dyslipidemia, overweight, right below the knee amputation, issues in the past with noncompliance. Patient has had multiple hospitalizations and cardiac catheterizations/PCI since March 2024 and in April of this year. Patient had a recent hospitalization and on 05/20 underwent Lexiscan stress test that revealed a large area of previous inferior lateral wall infarct with findings compatible with inducible karthikeyan-infarct ischemia extending to involve the lateral wall. EF 22%. Patient was cleared for discharge with plan to follow-up in the office. Patient had a subsequent hospitalization with elevated troponins and initially treated with heparin drip. He was started on Cardizem for antianginal and was cleared for discharge to follow-up with Dr. Hernandez. Patient states he he was at the office for Dr. Hernandez yesterday and he was having chest pain and was advised to go to the emergency center. He states that Dr. Hernandez discussed with him possibility of heart transplant at [facility]. Patient states he was having pain on the left side of his chest that went up to his neck and it was on and off all day yesterday. Patient has been started on heparin drip and nitroglycerin drip. He thinks nitroglycerin helped a little bit. He is also on Nitropaste. He thinks the pain medications help more than the nitroglycerin. He is complaining of severe headache for which Tylenol will be ordered. Dr. Jensen contacted Dr. Hernandez regarding patient's plan. Options were provided to the patient and it was decided that patient would undergo a cardiac catheterization for further evaluation of the arteries. He is agreeable to move forward with this. -EKG: Sinus rhythm with ventricular conduction delay. -Laboratory studies: Troponin 0.126, 0.172, 0.188. Creatinine 0.94. Hemoglobin 13.7. -Home cardiac medications: Aspirin 81 mg daily, atorvastatin 80 mg at bedtime, Jardiance 25 mg daily, Zetia 10 mg daily, Imdur 60 mg daily, Toprol XL 200 mg daily, Nitrostat, Ranexa 1000 mg twice daily, Xarelto 2.5 mg twice daily, Entresto 49-51 mg twice daily, Brilinta 90 mg twice daily, spironolactone 12.5 mg daily. Patient is also on Ozempic. -Cardiac catheterization performed 04/08/2024 revealed patent stent in the mid and distal LAD and SURVEY RESEARCH PROFESSOR of the RCA and SURVEY RESEARCH PROFESSOR of the left circumflex. Subsequently, PTCA 04/10/2024 of both the PDA and PLV branches of the RCA was performed. -04/29/2024 cardiac catheterization finding patent stent in the mid and distal left anterior descending artery. Chronic total occlusion of the left circumflex. Intermediate to severe disease involving the mid RCA documented to be flow-limiting by Doppler wire and in the same setting, successful stenting of the mid RCA and PLB branch of the RCA. -05/12/2024 cardiac catheterization revealed patent stent to the LAD diagonal system. SURVEY RESEARCH PROFESSOR of the left circumflex and left circumflex fills by collaterals. Severe in-stent restenosis involving the mid RCA with multiple layers of stent. Balloon angioplasty was performed with no stenting of the RCA. Mildly elevated left-sided filling pressure. -Limited echocardiogram performed on 05/10/2024 revealed EF of 35%, RVSP 38. Negative bubble study. No pericardial effusion. -Lexiscan stress test performed on 05/20/2024 revealed a large area of previous inferior lateral wall infarct with findings compatible with inducible karthikeyan- infarct ischemia extending to involve the lateral wall. EF 22%. 06/18 Patient seen and examined on the cardiac stepdown unit. Yesterday, he underwent cardiac cath with Dr. Hernandez which revealed patent stent in the proximal LAD. Intermediate disease involving the mid LAD documented to be flow-limiting by Doppler wire. PCI of the LAD was performed. There was total occlusion of the left circumflex which is known from before. Severe disease involving the PDA and PLV branches of the RCA with multiple layers of stent. Elevated left-sided filling pressure. Patient to be on antiplatelet with aspirin and Brilinta for 12 months. Patient is complaining of left-sided chest pain. Blood pressure 148/93, heart rate 88, pulse ox 98% on room air. Repeat creatinine 0.96. Discussed that most likely chest pain is due to muscular skeletal etiology. We will try Solu-Medrol and Toradol and monitor overnight. Echocardiogram reveals EF of 20 to 25%, inferior and lateral wall motion abnormality. PPM with RA and RV. Severe LA dilatation. Recommended steroids to decrease inflammation of the chest. Physical examination: Gen: This is a 44-year-old male in no acute distress. VS: reviewed LUNGS: Clear to auscultation. No wheezes or rhonchi. No intercostal retractions. HEART: Regular rate and rhythm. Systolic murmur. ABDOMEN: Soft No tenderness. EXTREMITIES: Right below the knee amputation. No pedal edema. No calf tenderness. NEUROLOGICAL: Patient is awake, alert and oriented x3. Assessment: NSTEMI status post PCI of the LAD 06/17 Several hospitalizations for NSTEMI Severe CAD status post multiple PCI as above Dyslipidemia Diabetes mellitus type 2 Obesity with BMI of 36 Right below the knee amputation Ischemic cardiomyopathy with EF of 35% Status post AICD Hypertension PAD on Xarelto vascular dosing Plan: Continue patient's home cardiac medications Give patient 1 dose of IV Solu-Medrol 125 mg Start patient on Toradol 30 mg IV twice daily for today and tomorrow. Monitor symptoms overnight and expect discharge home tomorrow Nurse practitioner note has been reviewed, I agree with documented findings and plan of care. Patient was seen and examined. Objective - Vital Signs Vital signs: Vital Signs Temp 98.1 F 06/18/24 08:27 Pulse 96 06/18/24 09:08 Resp 14 06/18/24 08:27 BP 148/93 06/18/24 08:27 Pulse Ox 98 06/18/24 08:27 FiO2 Intake & Output 06/17/24 06/18/24 06/18/24 18:59 06:59 18:59 Intake Total 524 540 360 Balance 524 540 360 Weight 125.191 kg 123.4 kg Intake: IV 302 Oral 222 540 360 Other: Voiding Method Toilet # Voids 3 - Labs CBC & Chem 7: 06/17/24 04:18 06/18/24 07:32 Labs: Abnormal Lab Results - Last 24 Hours (Table) 06/16/24 06/17/24 06/17/24 Range/Units 21:28 16:47 20:18 POC Glucose (mg/dL) 235 H 269 H (70-110) mg/dL Triglycerides 384.00 H (0.00-149.00) mg/dL VLDL Cholesterol, Calc 76.80 H (5.00-40.00) mg/dL HDL Cholesterol 33.50 L (40.00-60.00) mg/dL 06/18/24 Range/Units 05:55 POC Glucose (mg/dL) 147 H (70-110) mg/dL Triglycerides (0.00-149.00) mg/dL VLDL Cholesterol, Calc (5.00-40.00) mg/dL HDL Cholesterol (40.00-60.00) mg/dL
[2024-06-18] MEDS: methylPREDNISolone SOD SUCCI 125 MG/2 ML VIAL IV STA (12:33)
[2024-06-18] MEDS: KETOROLAC 15 MG/ML 1 ML VIAL IVP SCH (12:35)
[2024-06-18] MEDS: methylPREDNISolone SOD SUCCI 125 MG/2 ML VIAL IM ONE (13:57)
[2024-06-18 16:44] LABS: Glucose,Whole Blood 237 mg/dL (70-110)
[2024-06-18 19:50] LABS: Glucose,Whole Blood 327 mg/dL (70-110)
--- NOTE | 2024-06-18 20:05 | PN ---
PROGRESS NOTE Remains on heparin subcu. Medication has been readjusted. He wants something for neuropathy and phantom pain in his right leg. Discussed risk factor modification at home. Ambulate as tolerated. Could add gabapentin to his regimen and possibly go home tomorrow, if cleared by Cardiology. Risk factor modification was discussed with him. Prognosis is guarded. MMODL / IJN: [id number] /
[2024-06-18] MEDS: GABAPENTIN 300 MG CAP PO SCH (20:09)
[2024-06-19 06:23] LABS: Glucose,Whole Blood 277 mg/dL (70-110)
[2024-06-19] MEDS: methylPREDNISolone SOD SUCCI 40 MG/ML 1 ML VIAL IV SCH (10:58)
[2024-06-19] MEDS: ISOSORBIDE MONONITRATE ER 60 MG TAB.ER.24H PO STA (10:58)
[2024-06-19] MEDS: hydrALAZINE HCL 25 MG TAB PO SCH (10:58)
[2024-06-19 11:11] LABS: Glucose,Whole Blood 284 mg/dL (70-110)
--- NOTE | 2024-06-19 11:40 | P.PN ---
Subjective Progress Note Date: 06/19/24 Consult reason: chest pain History of present illness: This is a 44-year-old male patient of Dr. Hernandez with past medical history of CAD with known chronic total occlusion of the RCA and left circumflex and stenting of the LAD, severe ischemic cardiomyopathy with EF of 30 to 35% status post AICD, hypertension, dyslipidemia, overweight, right below the knee amputation, issues in the past with noncompliance. Patient has had multiple hospitalizations and cardiac catheterizations/PCI since March 2024 and in April of this year. Patient had a recent hospitalization and on 05/20 underwent Lexiscan stress test that revealed a large area of previous inferior lateral wall infarct with findings compatible with inducible karthikeyan-infarct ischemia extending to involve the lateral wall. EF 22%. Patient was cleared for discharge with plan to follow-up in the office. Patient had a subsequent hospitalization with elevated troponins and initially treated with heparin drip. He was started on Cardizem for antianginal and was cleared for discharge to follow-up with Dr. Hernandez. Patient states he he was at the office for Dr. Hernandez yesterday and he was having chest pain and was advised to go to the emergency center. He states that Dr. Hernandez discussed with him possibility of heart transplant at [facility]. Patient states he was having pain on the left side of his chest that went up to his neck and it was on and off all day yesterday. Patient has been started on heparin drip and nitroglycerin drip. He thinks nitroglycerin helped a little bit. He is also on Nitropaste. He thinks the pain medications help more than the nitroglycerin. He is complaining of severe headache for which Tylenol will be ordered. Dr. Jensen contacted Dr. Hernandez regarding patient's plan. Options were provided to the patient and it was decided that patient would undergo a cardiac catheterization for further evaluation of the arteries. He is agreeable to move forward with this. -EKG: Sinus rhythm with ventricular conduction delay. -Laboratory studies: Troponin 0.126, 0.172, 0.188. Creatinine 0.94. Hemoglobin 13.7. -Home cardiac medications: Aspirin 81 mg daily, atorvastatin 80 mg at bedtime, Jardiance 25 mg daily, Zetia 10 mg daily, Imdur 60 mg daily, Toprol XL 200 mg daily, Nitrostat, Ranexa 1000 mg twice daily, Xarelto 2.5 mg twice daily, Entresto 49-51 mg twice daily, Brilinta 90 mg twice daily, spironolactone 12.5 mg daily. Patient is also on Ozempic. -Cardiac catheterization performed 04/08/2024 revealed patent stent in the mid and distal LAD and AVIATION SUPPORT EQUIPMENT REPAIRER of the RCA and AVIATION SUPPORT EQUIPMENT REPAIRER of the left circumflex. Subsequently, PTCA 04/10/2024 of both the PDA and PLV branches of the RCA was performed. -04/29/2024 cardiac catheterization finding patent stent in the mid and distal left anterior descending artery. Chronic total occlusion of the left circumflex. Intermediate to severe disease involving the mid RCA documented to be flow-limiting by Doppler wire and in the same setting, successful stenting of the mid RCA and PLB branch of the RCA. -05/12/2024 cardiac catheterization revealed patent stent to the LAD diagonal system. AVIATION SUPPORT EQUIPMENT REPAIRER of the left circumflex and left circumflex fills by collaterals. Severe in-stent restenosis involving the mid RCA with multiple layers of stent. Balloon angioplasty was performed with no stenting of the RCA. Mildly elevated left-sided filling pressure. -Limited echocardiogram performed on 05/10/2024 revealed EF of 35%, RVSP 38. Negative bubble study. No pericardial effusion. -Lexiscan stress test performed on 05/20/2024 revealed a large area of previous inferior lateral wall infarct with findings compatible with inducible karthikeyan- infarct ischemia extending to involve the lateral wall. EF 22%. 06/18 Patient seen and examined on the cardiac stepdown unit. Yesterday, he underwent cardiac cath with Dr. Hernandez which revealed patent stent in the proximal LAD. Intermediate disease involving the mid LAD documented to be flow-limiting by Doppler wire. PCI of the LAD was performed. There was total occlusion of the left circumflex which is known from before. Severe disease involving the PDA and PLV branches of the RCA with multiple layers of stent. Elevated left-sided filling pressure. Patient to be on antiplatelet with aspirin and Brilinta for 12 months. Patient is complaining of left-sided chest pain. Blood pressure 148/93, heart rate 88, pulse ox 98% on room air. Repeat creatinine 0.96. Discussed that most likely chest pain is due to muscular skeletal etiology. We will try Solu-Medrol and Toradol and monitor overnight. Echocardiogram reveals EF of 20 to 25%, inferior and lateral wall motion abnormality. PPM with RA and RV. Severe LA dilatation. Recommended steroids to decrease inflammation of the chest. 06/19 Patient seen and examined. Yesterday, patient was complaining of left-sided chest pain for which patient was given 1 dose of IV Solu-Medrol and Toradol 30 mg twice daily x 3 doses. Blood pressure 129/86, heart rate 87, pulse ox 97% on room air. Patient apparently does not check his blood pressure at home he states he needs a new blood pressure cuff. Discussed plan to add in hydralazine, change Imdur and monitor overnight. Patient is agreeable. Physical examination: Gen: This is a 44-year-old male in no acute distress. VS: reviewed LUNGS: Clear to auscultation. No wheezes or rhonchi. No intercostal retractions. HEART: Regular rate and rhythm. Systolic murmur. ABDOMEN: Soft No tenderness. EXTREMITIES: Right below the knee amputation. No pedal edema. No calf tenderness. NEUROLOGICAL: Patient is awake, alert and oriented x3. Assessment: NSTEMI status post PCI of the LAD 06/17 Several hospitalizations for NSTEMI Severe CAD status post multiple PCI as above Dyslipidemia Diabetes mellitus type 2 Obesity with BMI of 36 Right below the knee amputation Ischemic cardiomyopathy with EF of 35% Status post AICD Hypertension PAD on Xarelto vascular dosing Plan: Continue patient's home cardiac medications aspirin 81 mg daily, atorvastatin 80 mg at bedtime, Farxiga 10 mg daily, Zetia 10 mg daily, metoprolol succinate 200 mg daily, Nitrostat, Ranexa 1000 mg twice daily, Entresto 49-51 mg twice daily, spironolactone 25 mg daily, Brilinta 90 mg twice daily Add hydralazine 25 mg 3 times daily Change Imdur to 120 mg daily Continue Solu-Medrol 40 mg daily Obtain sed rate and CRP Monitor patient overnight and plan for expected discharge home tomorrow. Nurse practitioner note has been reviewed, I agree with documented findings and plan of care. Patient was seen and examined. Objective - Vital Signs Vital signs: Vital Signs Temp 97.4 F L 06/19/24 08:16 Pulse 87 06/19/24 08:16 Resp 14 06/19/24 08:16 BP 129/86 02/28/25 08:16 Pulse Ox 97 06/19/24 08:16 FiO2 Intake & Output 06/18/24 06/19/24 06/19/24 18:59 06:59 18:59 Intake Total 360 560 240 Balance 360 560 240 Weight 128.3 kg Intake: IV 20 Invasive Line 3 20 Oral 360 540 240 Other: Voiding Method Toilet Toilet # Voids 2 3 - Labs CBC & Chem 7: 06/17/24 04:18 06/18/24 07:32 Labs: Abnormal Lab Results - Last 24 Hours (Table) 06/16/24 06/18/24 06/18/24 Range/Units 21:28 16:43 19:49 POC Glucose (mg/dL) 237 H 327 H (70-110) mg/dL Triglycerides 384.00 H (0.00-149.00) mg/dL VLDL Cholesterol, Calc 76.80 H (5.00-40.00) mg/dL HDL Cholesterol 33.50 L (40.00-60.00) mg/dL 06/19/24 Range/Units 06:22 POC Glucose (mg/dL) 277 H (70-110) mg/dL Triglycerides (0.00-149.00) mg/dL VLDL Cholesterol, Calc (5.00-40.00) mg/dL HDL Cholesterol (40.00-60.00) mg/dL
[2024-06-19 16:25] LABS: Glucose,Whole Blood 312 mg/dL (70-110)
[2024-06-19 20:22] LABS: Glucose,Whole Blood 407 mg/dL (70-110)
--- NOTE | 2024-06-20 02:05 | PN ---
PROGRESS NOTE A 44-year-old, seen by Cardiology. He has had more short of breath. He is started on breathing treatments, given pain medication, status post stenting. Medicines were readjusted. cardiac medicines. The patient has systolic heart failure, coronary artery disease, asthma, COPD. Possible discharge home tomorrow if he is feeling better. Ischemic cardiomyopathy, non STEMI, dyslipidemia, diabetes, obesity, hypertension, PAD. Prognosis guarded. Follow up in the next 24 to 48 hours. MMODL / IJN: [id number] /
[2024-06-20 05:59] LABS: Glucose,Whole Blood 247 mg/dL (70-110)
[2024-06-20] MEDS: ISOSORBIDE MONONITRATE ER 60 MG TAB.ER.24H PO SCH (07:45)
[2024-06-20] MEDS: hydrALAZINE HCL 25 MG TAB PO STA (11:37)
[2024-06-20 11:52] LABS: Glucose,Whole Blood 307 mg/dL (70-110)
--- NOTE | 2024-06-20 12:40 | P.PN ---
Subjective Progress Note Date: 06/20/24 Consult reason: chest pain History of present illness: This is a 44-year-old male patient of Dr. Hernandez with past medical history of CAD with known chronic total occlusion of the RCA and left circumflex and stenting of the LAD, severe ischemic cardiomyopathy with EF of 30 to 35% status post AICD, hypertension, dyslipidemia, overweight, right below the knee amputation, issues in the past with noncompliance. Patient has had multiple hospitalizations and cardiac catheterizations/PCI since March 2024 and in April of this year. Patient had a recent hospitalization and on 05/20 underwent Lexiscan stress test that revealed a large area of previous inferior lateral wall infarct with findings compatible with inducible karthikeyan-infarct ischemia extending to involve the lateral wall. EF 22%. Patient was cleared for discharge with plan to follow-up in the office. Patient had a subsequent hospitalization with elevated troponins and initially treated with heparin drip. He was started on Cardizem for antianginal and was cleared for discharge to follow-up with Dr. Hernandez. Patient states he he was at the office for Dr. Hernandez yesterday and he was having chest pain and was advised to go to the emergency center. He states that Dr. Hernandez discussed with him possibility of heart transplant at [facility]. Patient states he was having pain on the left side of his chest that went up to his neck and it was on and off all day yesterday. Patient has been started on heparin drip and nitroglycerin drip. He thinks nitroglycerin helped a little bit. He is also on Nitropaste. He thinks the pain medications help more than the nitroglycerin. He is complaining of severe headache for which Tylenol will be ordered. Dr. Jensen contacted Dr. Hernandez regarding patient's plan. Options were provided to the patient and it was decided that patient would undergo a cardiac catheterization for further evaluation of the arteries. He is agreeable to move forward with this. -EKG: Sinus rhythm with ventricular conduction delay. -Laboratory studies: Troponin 0.126, 0.172, 0.188. Creatinine 0.94. Hemoglobin 13.7. -Home cardiac medications: Aspirin 81 mg daily, atorvastatin 80 mg at bedtime, Jardiance 25 mg daily, Zetia 10 mg daily, Imdur 60 mg daily, Toprol XL 200 mg daily, Nitrostat, Ranexa 1000 mg twice daily, Xarelto 2.5 mg twice daily, Entresto 49-51 mg twice daily, Brilinta 90 mg twice daily, spironolactone 12.5 mg daily. Patient is also on Ozempic. -Cardiac catheterization performed 04/08/2024 revealed patent stent in the mid and distal LAD and BRAND STRATEGIST of the RCA and BRAND STRATEGIST of the left circumflex. Subsequently, PTCA 04/10/2024 of both the PDA and PLV branches of the RCA was performed. -04/29/2024 cardiac catheterization finding patent stent in the mid and distal left anterior descending artery. Chronic total occlusion of the left circumflex. Intermediate to severe disease involving the mid RCA documented to be flow-limiting by Doppler wire and in the same setting, successful stenting of the mid RCA and PLB branch of the RCA. -05/12/2024 cardiac catheterization revealed patent stent to the LAD diagonal system. BRAND STRATEGIST of the left circumflex and left circumflex fills by collaterals. Severe in-stent restenosis involving the mid RCA with multiple layers of stent. Balloon angioplasty was performed with no stenting of the RCA. Mildly elevated left-sided filling pressure. -Limited echocardiogram performed on 05/10/2024 revealed EF of 35%, RVSP 38. Negative bubble study. No pericardial effusion. -Lexiscan stress test performed on 05/20/2024 revealed a large area of previous inferior lateral wall infarct with findings compatible with inducible karthikeyan- infarct ischemia extending to involve the lateral wall. EF 22%. 06/18 Patient seen and examined on the cardiac stepdown unit. Yesterday, he underwent cardiac cath with Dr. Hernandez which revealed patent stent in the proximal LAD. Intermediate disease involving the mid LAD documented to be flow-limiting by Doppler wire. PCI of the LAD was performed. There was total occlusion of the left circumflex which is known from before. Severe disease involving the PDA and PLV branches of the RCA with multiple layers of stent. Elevated left-sided filling pressure. Patient to be on antiplatelet with aspirin and Brilinta for 12 months. Patient is complaining of left-sided chest pain. Blood pressure 148/93, heart rate 88, pulse ox 98% on room air. Repeat creatinine 0.96. Discussed that most likely chest pain is due to muscular skeletal etiology. We will try Solu-Medrol and Toradol and monitor overnight. Echocardiogram reveals EF of 20 to 25%, inferior and lateral wall motion abnormality. PPM with RA and RV. Severe LA dilatation. Recommended steroids to decrease inflammation of the chest. 06/19 Patient seen and examined. Yesterday, patient was complaining of left-sided chest pain for which patient was given 1 dose of IV Solu-Medrol and Toradol 30 mg twice daily x 3 doses. Blood pressure 129/86, heart rate 87, pulse ox 97% on room air. Patient apparently does not check his blood pressure at home he states he needs a new blood pressure cuff. Discussed plan to add in hydralazine, change Imdur and monitor overnight. Patient is agreeable. 06/20 Patient seen and examined. Yesterday, we added hydralazine and changed Imdur to 100 mg daily, continue IV Solu-Medrol due to patient's continued complaints of left-sided chest pain. Sed rate came back at 17 and C-reactive protein 2.5. Patient states that his pain gets worse with activity and also seems to get better with nitroglycerin with at least a 1-2 point drop in a scale of 1-10. CT of the chest was performed on 06/18 ordered by attending for pleural effusion. This revealed no acute pulmonary process or pleural effusion seen bilaterally. Physical examination: Gen: This is a 44-year-old male in no acute distress. VS: reviewed LUNGS: Clear to auscultation. No wheezes or rhonchi. No intercostal retractions. HEART: Regular rate and rhythm. Systolic murmur. ABDOMEN: Soft No tenderness. EXTREMITIES: Right below the knee amputation. No pedal edema. No calf tenderness. NEUROLOGICAL: Patient is awake, alert and oriented x3. Assessment: NSTEMI status post PCI of the LAD 06/17 Several hospitalizations for NSTEMI Severe CAD status post multiple PCI as above Dyslipidemia Diabetes mellitus type 2 Obesity with BMI of 36 Right below the knee amputation Ischemic cardiomyopathy with EF of 35% Status post AICD Hypertension PAD on Xarelto vascular dosing Plan: Continue patient's home cardiac medications aspirin 81 mg daily, atorvastatin 80 mg at bedtime, Farxiga 10 mg daily, Zetia 10 mg daily, metoprolol succinate 200 mg daily, Nitrostat, Ranexa 1000 mg twice daily, Entresto 49-51 mg twice daily, spironolactone 25 mg daily, Brilinta 90 mg twice daily Continue the addition of hydralazine and increase to 50 mg 3 times daily Continue Imdur changed to 120 mg daily Discontinue Solu-Medrol Schedule patient for Lexiscan stress test for Saturday. Nurse practitioner note has been reviewed, I agree with documented findings and plan of care. Patient was seen and examined. Objective - Vital Signs Vital signs: Vital Signs Temp 98.4 F 06/20/24 04:39 Pulse 86 06/20/24 04:39 Resp 16 06/20/24 04:39 BP 128/89 06/20/24 04:39 Pulse Ox 95 06/20/24 04:39 FiO2 Intake & Output 06/19/24 06/20/24 06/20/24 18:59 06:59 18:59 Intake Total 1200 10 Balance 1200 10 Weight 128.7 kg Intake: IV 10 Invasive Line 3 10 Oral 1200 Other: Voiding Method Toilet Toilet # Voids 3 4 - Labs CBC & Chem 7: 06/17/24 04:18 06/18/24 07:32 Labs: Abnormal Lab Results - Last 24 Hours (Table) 06/19/24 06/19/24 06/19/24 Range/Units 10:49 10:49 11:09 ESR 17 H (0-15) mm/Hr POC Glucose (mg/dL) 284 H (70-110) mg/dL C-Reactive Protein 2.5 H (<1.0) mg/dL 06/19/24 06/19/24 06/20/24 Range/Units 16:21 20:11 05:57 ESR (0-15) mm/Hr POC Glucose (mg/dL) 312 H 407 H 247 H (70-110) mg/dL C-Reactive Protein (<1.0) mg/dL
[2024-06-20] MEDS: hydrALAZINE HCL 50 MG TAB PO SCH (15:00)
[2024-06-20 16:21] LABS: Glucose,Whole Blood 336 mg/dL (70-110)
[2024-06-20 19:41] LABS: Glucose,Whole Blood 353 mg/dL (70-110)
[2024-06-21 06:10] LABS: Glucose,Whole Blood 202 mg/dL (70-110)
[2024-06-21 12:04] LABS: Glucose,Whole Blood 137 mg/dL (70-110)
--- NOTE | 2024-06-21 12:19 | P.PN ---
Subjective Progress Note Date: 06/21/24 Consult reason: chest pain History of present illness: This is a 44-year-old male patient of Dr. Hernandez with past medical history of CAD with known chronic total occlusion of the RCA and left circumflex and stenting of the LAD, severe ischemic cardiomyopathy with EF of 30 to 35% status post AICD, hypertension, dyslipidemia, overweight, right below the knee amputation, issues in the past with noncompliance. Patient has had multiple hospitalizations and cardiac catheterizations/PCI since March 2024 and in April of this year. Patient had a recent hospitalization and on 05/20 underwent Lexiscan stress test that revealed a large area of previous inferior lateral wall infarct with findings compatible with inducible karthikeyan-infarct ischemia extending to involve the lateral wall. EF 22%. Patient was cleared for discharge with plan to follow-up in the office. Patient had a subsequent hospitalization with elevated troponins and initially treated with heparin drip. He was started on Cardizem for antianginal and was cleared for discharge to follow-up with Dr. Hernandez. Patient states he he was at the office for Dr. Hernandez yesterday and he was having chest pain and was advised to go to the emergency center. He states that Dr. Hernandez discussed with him possibility of heart transplant at [facility]. Patient states he was having pain on the left side of his chest that went up to his neck and it was on and off all day yesterday. Patient has been started on heparin drip and nitroglycerin drip. He thinks nitroglycerin helped a little bit. He is also on Nitropaste. He thinks the pain medications help more than the nitroglycerin. He is complaining of severe headache for which Tylenol will be ordered. Dr. Jensen contacted Dr. Hernandez regarding patient's plan. Options were provided to the patient and it was decided that patient would undergo a cardiac catheterization for further evaluation of the arteries. He is agreeable to move forward with this. -EKG: Sinus rhythm with ventricular conduction delay. -Laboratory studies: Troponin 0.126, 0.172, 0.188. Creatinine 0.94. Hemoglobin 13.7. -Home cardiac medications: Aspirin 81 mg daily, atorvastatin 80 mg at bedtime, Jardiance 25 mg daily, Zetia 10 mg daily, Imdur 60 mg daily, Toprol XL 200 mg daily, Nitrostat, Ranexa 1000 mg twice daily, Xarelto 2.5 mg twice daily, Entresto 49-51 mg twice daily, Brilinta 90 mg twice daily, spironolactone 12.5 mg daily. Patient is also on Ozempic. -Cardiac catheterization performed 04/08/2024 revealed patent stent in the mid and distal LAD and BUSINESS ACCOUNT SPECIALIST of the RCA and BUSINESS ACCOUNT SPECIALIST of the left circumflex. Subsequently, PTCA 04/10/2024 of both the PDA and PLV branches of the RCA was performed. -04/29/2024 cardiac catheterization finding patent stent in the mid and distal left anterior descending artery. Chronic total occlusion of the left circumflex. Intermediate to severe disease involving the mid RCA documented to be flow-limiting by Doppler wire and in the same setting, successful stenting of the mid RCA and PLB branch of the RCA. -05/12/2024 cardiac catheterization revealed patent stent to the LAD diagonal system. BUSINESS ACCOUNT SPECIALIST of the left circumflex and left circumflex fills by collaterals. Severe in-stent restenosis involving the mid RCA with multiple layers of stent. Balloon angioplasty was performed with no stenting of the RCA. Mildly elevated left-sided filling pressure. -Limited echocardiogram performed on 05/10/2024 revealed EF of 35%, RVSP 38. Negative bubble study. No pericardial effusion. -Lexiscan stress test performed on 05/20/2024 revealed a large area of previous inferior lateral wall infarct with findings compatible with inducible karthikeyan- infarct ischemia extending to involve the lateral wall. EF 22%. 06/18 Patient seen and examined on the cardiac stepdown unit. Yesterday, he underwent cardiac cath with Dr. Hernandez which revealed patent stent in the proximal LAD. Intermediate disease involving the mid LAD documented to be flow-limiting by Doppler wire. PCI of the LAD was performed. There was total occlusion of the left circumflex which is known from before. Severe disease involving the PDA and PLV branches of the RCA with multiple layers of stent. Elevated left-sided filling pressure. Patient to be on antiplatelet with aspirin and Brilinta for 12 months. Patient is complaining of left-sided chest pain. Blood pressure 148/93, heart rate 88, pulse ox 98% on room air. Repeat creatinine 0.96. Discussed that most likely chest pain is due to muscular skeletal etiology. We will try Solu-Medrol and Toradol and monitor overnight. Echocardiogram reveals EF of 20 to 25%, inferior and lateral wall motion abnormality. PPM with RA and RV. Severe LA dilatation. Recommended steroids to decrease inflammation of the chest. 06/19 Patient seen and examined. Yesterday, patient was complaining of left-sided chest pain for which patient was given 1 dose of IV Solu-Medrol and Toradol 30 mg twice daily x 3 doses. Blood pressure 129/86, heart rate 87, pulse ox 97% on room air. Patient apparently does not check his blood pressure at home he states he needs a new blood pressure cuff. Discussed plan to add in hydralazine, change Imdur and monitor overnight. Patient is agreeable. 06/20 Patient seen and examined. Yesterday, we added hydralazine and changed Imdur to 100 mg daily, continue IV Solu-Medrol due to patient's continued complaints of left-sided chest pain. Sed rate came back at 17 and C-reactive protein 2.5. Patient states that his pain gets worse with activity and also seems to get better with nitroglycerin with at least a 1-2 point drop in a scale of 1-10. CT of the chest was performed on 06/18 ordered by attending for pleural effusion. This revealed no acute pulmonary process or pleural effusion seen bilaterally. 06/21 Patient seen and examined. Patient is scheduled for Lexiscan stress test on Saturday. Patient states today he was feeling faint after he laid down from a shower. He did not have it while he was in the shower. Yesterday we had in creased hydralazine to 50 mg 3 times daily. Blood pressure 114/81, heart rate 81, pulse ox 97% on room air. Physical examination: Gen: This is a 44-year-old male in no acute distress. VS: reviewed LUNGS: Clear to auscultation. No wheezes or rhonchi. No intercostal retractions. HEART: Regular rate and rhythm. Systolic murmur. ABDOMEN: Soft No tenderness. EXTREMITIES: Right below the knee amputation. No pedal edema. No calf tenderness. NEUROLOGICAL: Patient is awake, alert and oriented x3. Assessment: NSTEMI status post PCI of the LAD 06/17 Several hospitalizations for NSTEMI Severe CAD status post multiple PCI as above Dyslipidemia Diabetes mellitus type 2 Obesity with BMI of 36 Right below the knee amputation Ischemic cardiomyopathy with EF of 35% Status post AICD Hypertension PAD on Xarelto vascular dosing Plan: Continue patient's home cardiac medications aspirin 81 mg daily, atorvastatin 80 mg at bedtime, Farxiga 10 mg daily, Zetia 10 mg daily, metoprolol succinate 200 mg daily, Nitrostat, Ranexa 1000 mg twice daily, Entresto 49-51 mg twice daily, spironolactone 25 mg daily, Brilinta 90 mg twice daily Reduce hydralazine to 25 mg 3 times daily Continue Imdur changed to 120 mg daily Schedule patient for Lexiscan stress test for Saturday. Nurse practitioner note has been reviewed, I agree with documented findings and plan of care. Patient was seen and examined. Objective - Vital Signs Vital signs: Vital Signs Temp 98.1 F 06/20/24 20:00 Pulse 78 06/21/24 07:56 Resp 18 06/21/24 07:21 BP 129/90 06/21/24 07:21 Pulse Ox 97 06/21/24 07:21 FiO2 Intake & Output 06/20/24 06/21/24 06/21/24 18:59 06:59 18:59 Intake Total 1146 540 Balance 1146 540 Weight 129 kg Intake: Oral 1146 540 Other: Voiding Method Toilet Toilet Toilet # Voids 2 - Labs CBC & Chem 7: 06/17/24 04:18 06/18/24 07:32 Labs: Abnormal Lab Results - Last 24 Hours (Table) 06/20/24 06/20/24 06/20/24 Range/Units 11:51 16:19 19:39 POC Glucose (mg/dL) 307 H 336 H 353 H (70-110) mg/dL 06/21/24 Range/Units 06:07 POC Glucose (mg/dL) 202 H (70-110) mg/dL
[2024-06-21 17:09] LABS: Glucose,Whole Blood 264 mg/dL (70-110)
[2024-06-21] MEDS: hydrALAZINE HCL 25 MG TAB PO SCH (17:30)
[2024-06-21 20:06] LABS: Glucose,Whole Blood 323 mg/dL (70-110)
[2024-06-22] MEDS: HYDROcodone/APAP 10-325MG 1 EACH TAB PO PRN (00:25)
[2024-06-22] MEDS ORDERED: REGADENOSON 0.4 MG/5 ML SYRINGE IV PRN (06:00)
[2024-06-22] MEDS ORDERED: CAFFEINE CITRATE 60 MG/3 ML VIAL IV PRN (06:00)
[2024-06-22] MEDS ORDERED: AMINOPHYLLINE 500 MG/20 ML VIAL IV PRN (06:00)
[2024-06-22 06:18] LABS: Glucose,Whole Blood 238 mg/dL (70-110)
--- NOTE | 2024-06-22 08:17 | PN ---
PROGRESS NOTE A 44-year-old white male with coronary artery disease, still has chest pain and shortness of breath. We have to keep him overnight. He had a recent CAT scan, that was negative. Waiting for Cardiology to clear him for discharge due to continuing chest pain. He is also complaining of lower back pain, for which treatment has been given. He is on nitroglycerin paste. He was on nitroglycerin drip, helped a little bit. He has been on pain medicines, not more than nitroglycerin, severe headache, Tylenol will be ordered. Dr. Jensen contacted Dr. Hernandez. He is going to do another heart catheterization due to recurrent chest pain. He is feeling faint. He laid down in the shower; hydralazine increased to 50 t.i.d. PHYSICAL EXAMINATION: VITAL SIGNS: Blood pressure 114/81, heart rate 81, O2 99. CARDIOVASCULAR: S1, S2. LUNGS: Transmitted upper airway sounds. ABDOMEN: Soft. EXTREMITIES: Right below-knee amputation. NEUROLOGIC: Cranial nerves intact. ASSESSMENT: 1. Arn-LG-axkvbqoyn myocardial infarction, status post percutaneous coronary intervention of the LAD on 06/17. 2. Severe coronary artery disease. 3. Dyslipidemia. 4. Diabetes. 5. Obesity. 6. Right knee amputation. 7. Ischemic cardiomyopathy. 8. Hypertension. 9. Peripheral arterial disease. 10.Medications were adjusted by Cardiology. Possible stress test versus heart catheterization. MMODL / IJN: [id number] /
--- NOTE | 2024-06-22 08:18 | PN ---
PROGRESS NOTE A 44-year-old white male. Still has chest pain at rest and with exertion. Cardiology is going to a stress test on Saturday morning versus heart catheterization. OBJECTIVE: VITAL SIGNS: Temperature of 98, blood pressure of 161/68, O2 96, pulse 70s to 90s. LABORATORY DATA: Sugars mid 100s, 200s, and 300s. ASSESSMENT: 1. Unstable angina. 2. Status post stent placement, percutaneous coronary intervention, possibly do a stress test versus heart catheterization tomorrow. 3. Asthma and chronic obstructive pulmonary disease. Continue breathing treatments. 4. 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 Continue current treatments. Discussed with him long-term care, wait for Cardiology's recommendations on discharge. CT of the chest was good. MMODL / IJN: [id number] /
[2024-06-22] MEDS: amLODIPine 5 MG TAB PO SCH (08:44)
[2024-06-22 11:08] LABS: Glucose,Whole Blood 155 mg/dL (70-110)
--- NOTE | 2024-06-22 13:01 | P.PN ---
Subjective HISTORY OF PRESENT ILLNESS: This is a 44-year-old male patient of Dr. Hernandez with past medical history of CAD with known chronic total occlusion of the RCA and left circumflex and stenting of the LAD, severe ischemic cardiomyopathy with EF of 30 to 35% status post AICD, hypertension, dyslipidemia, overweight, right below the knee amputation, issues in the past with noncompliance. Patient has had multiple hospitalizations and cardiac catheterizations/PCI since March 2024 and in April of this year. Patient had a recent hospitalization and on 05/20 underwent Lexiscan stress test that revealed a large area of previous inferior lateral wall infarct with findings compatible with inducible karthikeyan-infarct ischemia extending to involve the lateral wall. EF 22%. Patient was cleared for discharge with plan to follow-up in the office. Patient had a subsequent hospitalization with elevated troponins and initially treated with heparin drip. He was started on Cardizem for antianginal and was cleared for discharge to follow-up with Dr. Hernandez. Patient states he he was at the office for Dr. Hernandez yesterday and he was having chest pain and was advised to go to the emergency center. He states that Dr. Hernandez discussed with him possibility of heart transplant at [facility]. Patient states he was having pain on the left side of his chest that went up to his neck and it was on and off all day yesterday. Patient has been started on heparin drip and nitroglycerin drip. He thinks nitroglycerin helped a little bit. He is also on Nitropaste. He thinks the pain medications help more than the nitroglycerin. He is complaining of severe headache for which Tylenol will be ordered. Dr. Jensen contacted Dr. Hernandez regarding patient's plan. Options were provided to the patient and it was decided that patient would undergo a cardiac catheterization for further evaluation of the arteries. He is agreeable to move forward with this. -EKG: Sinus rhythm with ventricular conduction delay. -Laboratory studies: Troponin 0.126, 0.172, 0.188. Creatinine 0.94. Hemoglobin 13.7. -Home cardiac medications: Aspirin 81 mg daily, atorvastatin 80 mg at bedtime, Jardiance 25 mg daily, Zetia 10 mg daily, Imdur 60 mg daily, Toprol XL 200 mg daily, Nitrostat, Ranexa 1000 mg twice daily, Xarelto 2.5 mg twice daily, Entresto 49-51 mg twice daily, Brilinta 90 mg twice daily, spironolactone 12.5 mg daily. Patient is also on Ozempic. -Cardiac catheterization performed 04/08/2024 revealed patent stent in the mid and distal LAD and SUPERVISOR CAR INSTALLATIONS of the RCA and SUPERVISOR CAR INSTALLATIONS of the left circumflex. Subsequently, PTCA 04/10/2024 of both the PDA and PLV branches of the RCA was performed. -04/29/2024 cardiac catheterization finding patent stent in the mid and distal left anterior descending artery. Chronic total occlusion of the left circumflex. Intermediate to severe disease involving the mid RCA documented to be flow-limiting by Doppler wire and in the same setting, successful stenting of the mid RCA and PLB branch of the RCA. -05/12/2024 cardiac catheterization revealed patent stent to the LAD diagonal system. SUPERVISOR CAR INSTALLATIONS of the left circumflex and left circumflex fills by collaterals. Severe in-stent restenosis involving the mid RCA with multiple layers of stent. Balloon angioplasty was performed with no stenting of the RCA. Mildly elevated left-sided filling pressure. -Limited echocardiogram performed on 05/10/2024 revealed EF of 35%, RVSP 38. Negative bubble study. No pericardial effusion. -Lexiscan stress test performed on 05/20/2024 revealed a large area of previous inferior lateral wall infarct with findings compatible with inducible karthikeyan- infarct ischemia extending to involve the lateral wall. EF 22%. 06/18 Patient seen and examined on the cardiac stepdown unit. Yesterday, he underwent cardiac cath with Dr. Hernandez which revealed patent stent in the proximal LAD. Intermediate disease involving the mid LAD documented to be flow-limiting by Doppler wire. PCI of the LAD was performed. There was total occlusion of the left circumflex which is known from before. Severe disease involving the PDA and PLV branches of the RCA with multiple layers of stent. Elevated left-sided filling pressure. Patient to be on antiplatelet with aspirin and Brilinta for 12 months. Patient is complaining of left-sided chest pain. Blood pressure 148/93, heart rate 88, pulse ox 98% on room air. Repeat creatinine 0.96. Discussed that most likely chest pain is due to muscular skeletal etiology. We will try Solu-Medrol and Toradol and monitor overnight. Echocardiogram reveals EF of 20 to 25%, inferior and lateral wall motion abnormality. PPM with RA and RV. Severe LA dilatation. Recommended steroids to decrease inflammation of the chest. 06/19 Patient seen and examined. Yesterday, patient was complaining of left-sided chest pain for which patient was given 1 dose of IV Solu-Medrol and Toradol 30 mg twice daily x 3 doses. Blood pressure 129/86, heart rate 87, pulse ox 97% on room air. Patient apparently does not check his blood pressure at home he states he needs a new blood pressure cuff. Discussed plan to add in hydralazine, change Imdur and monitor overnight. Patient is agreeable. 06/20 Patient seen and examined. Yesterday, we added hydralazine and changed Imdur to 100 mg daily, continue IV Solu-Medrol due to patient's continued complaints of left-sided chest pain. Sed rate came back at 17 and C-reactive protein 2.5. Patient states that his pain gets worse with activity and also seems to get better with nitroglycerin with at least a 1-2 point drop in a scale of 1-10. CT of the chest was performed on 06/18 ordered by attending for pleural effusion. This revealed no acute pulmonary process or pleural effusion seen bilaterally. 06/21 Patient seen and examined. Patient is scheduled for Lexiscan stress test on Saturday. Patient states today he was feeling faint after he laid down from a shower. He did not have it while he was in the shower. Yesterday we had increased hydralazine to 50 mg 3 times daily. Blood pressure 114/81, heart rate 81, pulse ox 97% on room air. 06/22/2024 Patient examined this morning at the bedside. Patient continues to report mild chest discomfort. He denies shortness of breath. Vital signs are stable. Patient was supposed to be scheduled for Lexiscan stress test today. However he was not made n.p.o. at midnight so this will be rescheduled for tomorrow. PHYSICAL EXAM: VITAL SIGNS: Reviewed. GENERAL: Well-developed in no acute distress. NECK: Supple. No JVD or thyromegaly LUNGS: Respirations even and unlabored. Lungs essentially clear to auscultation bilaterally. HEART: Regular rate and rhythm. S1 and S2 heard. EXTREMITIES: Normal range of motion. No clubbing or cyanosis. Right BKA. ASSESSMENT: NSTEMI status post PCI of the LAD 06/17 Several hospitalizations for NSTEMI Severe CAD status post multiple PCI as above Dyslipidemia Diabetes mellitus type 2 Obesity with BMI of 36 Right below the knee amputation Ischemic cardiomyopathy with EF of 35% Status post AICD Hypertension PAD on Xarelto vascular dosing PLAN: Discontinue hydralazine Add Amlodipine [address] Esposito Increase Entresto to 97-103 mg twice a day Continue additional cardiac medications including aspirin, Lipitor, Farxiga, Zetia, Imdur, metoprolol, Ranexa, Brilinta, and Aldactone N.p.o. at midnight Patient undergo Lexiscan stress test tomorrow Further recommendations pending patient course Nurse practitioner note has been reviewed by physician. Signing provider agrees with the documented findings, assessment, and plan of care documented by CHARGE WEIGHER as a scribe. Objective - Vital Signs Vital signs: Vital Signs Temp 97.4 F L 06/22/24 08:00 Pulse 76 06/22/24 11:27 Resp 16 06/22/24 11:27 BP 107/67 06/22/24 11:27 Pulse Ox 97 06/22/24 11:27 FiO2 Intake & Output 06/21/24 06/22/24 06/22/24 18:59 06:59 18:59 Intake Total 784 240 240 Balance 784 240 240 Weight 126.2 kg Intake: Oral 784 240 240 Other: Voiding Method Toilet Toilet Toilet # Voids 3 - Labs CBC & Chem 7: 06/17/24 04:18 06/18/24 07:32 Labs: Abnormal Lab Results - Last 24 Hours (Table) 06/21/24 06/21/24 06/22/24 Range/Units 17:06 20:05 06:17 POC Glucose (mg/dL) 264 H 323 H 238 H (70-110) mg/dL 06/22/24 Range/Units 11:07 POC Glucose (mg/dL) 155 H (70-110) mg/dL
[2024-06-22 16:18] LABS: Glucose,Whole Blood 300 mg/dL (70-110)
[2024-06-22 19:57] LABS: Glucose,Whole Blood 190 mg/dL (70-110)
[2024-06-22] MEDS: SACUBITRIL/VALSARTAN 97 MG-103 MG TABLET PO SCH (21:24)
--- NOTE | 2024-06-22 22:41 | PN ---
PROGRESS NOTE Shaun Roldan had an EKG today, seen by Dr. Esposito. EKG shows sinus rhythm, nonspecific ST-T changes. Cardiac catheterization was done recently. Stent was placed. He was feeling a little faint yesterday after a shower. Increased his hydralazine to 50 t.i.d. OBJECTIVE: VITAL SIGNS: Reviewed. HEENT: Normocephalic, atraumatic. ABDOMEN: Soft, nontender. HEART: S1, S2. EXTREMITIES: No edema. ASSESSMENT: 1. Wvv-GI-wfnuuksph myocardial infarction, status post. percutaneous coronary intervention of the LAD 06/17. 1. Severe coronary artery disease. 2. Dyslipidemia. 3. Diabetes type 2. 4. Morbid obesity. 5. Right below-knee amputation. 6. Ischemic cardiomyopathy. 7. Hypertension. Cardiology added. Stopped hydralazine. Increased his Entresto. n.p.o. at midnight to undergo stress test tomorrow. Prognosis is guarded. MMODL / IJN: [id number] /
[2024-06-23 06:06] LABS: Glucose,Whole Blood 155 mg/dL (70-110)
[2024-06-23 07:45] LABS: Anisocytosis Slight; Basophils # (A) 0.1 k/uL (0-0.2); Basophils % (A) 1 %; Eosinophils # (A) 0.4 k/uL (0-0.7); Eosinophils % (A) 4 %; HCT 44.6 % (39.0-53.0); HGB 13.8 gm/dL (13.0-17.5); Hypochromasia Moderate; Lymphocytes # (A) 2.1 k/uL (1.0-4.8); Lymphocytes % (A) 21 %; MCHC 30.9 g/dL (31.0-37.0); MCV 77.7 fL (80.0-100.0); Mean Platelet Volume 7.4; Microcytosis Slight; Monocytes # (A) 0.7 k/uL (0-1.0); Monocytes % (A) 7 %; Neutrophils # (A) 6.8 k/uL (1.3-7.7); Neutrophils % (A) 66 %; Platelet Count 240 k/uL (150-450); RBC 5.75 m/uL (4.30-5.90); RDW 16.2 % (11.5-15.5); WBC 10.4 k/uL (3.8-10.6)
[2024-06-23] MEDS ORDERED: REGADENOSON 0.4 MG/5 ML SYRINGE IV ONE (08:00)
[2024-06-23 08:07] LABS: African American GFR (CKD) >90 (>60 ml/min/1.73 sqM); Anion Gap 10 mmol/L; Blood Urea Nitrogen 31 mg/dL (9-20); Calcium 8.6 mg/dL (8.4-10.2); Carbon Dioxide 19 mmol/L (22-30); Chloride 106 mmol/L (98-107); Glucose 154 mg/dL (74-99); Non-African American GFR(CKD) >90 (>60 ml/min/1.73 sqM); Sodium 135 mmol/L (137-145)
[2024-06-23 11:13] LABS: Glucose,Whole Blood 144 mg/dL (70-110)
--- NOTE | 2024-06-23 13:00 | CA ---
Lexiscan Nuclear Stress Test Report Name: Shaun Roldan Exam Date: 06/23/2024 09:26 Exam Location: [facility] Ht (in): 72 Wt (lb): 283 BSA: 2.47 Ordering Phys: Boogie Mcmullen Referring Phys: BOOGIE MCMULLEN,, Technologist: George Iniguez Age: 44 Gender: M : 1980 Procedure CPT: Indications: Reflex order-Stress test ICD-10 Codes: Patient History: CHEST PAIN, DEANNA, HTN, DIABETIC, PRIOR PR, PRIOR HEART CATH WITH 5 STENTS, HYPERCHOLESTEROLEMIA, FAMILY HX OF HEART DX, NUMBNESS IN FACE/NECK, PRIOR SMOKER, COPD Medications: Meds past 24 hrs: Pretest Chest Pain: STRESS TEST Lexiscan Protocol Exercise Duration (min:sec): 02:[address] Depressions (mm): Angina Score: Stafford Score: Resting HR (bpm): 79 Peak HR (bpm): 88 Resting BP (mmHg): 112 / 72 Peak BP (mmHg): 120 / 72 MPHR: 176 Target HR: 150 % MPHR: 50 METS: 1.0 Total Dose: Peak Dose: Atropine: Double Product: 50091 BP Response: Stress Termination: INFUSION COMPLETE Stress Symptoms: NO SYMPTOMS Stress Summary: ECG ANALYSIS Resting ECG: Sinus rhythm. Left bundle branch block. No arrhythmias. Stress ECG: No ECG changes from baseline with Lexiscan infusion. Ventricular premature contraction. CONCLUSIONS No ECG evidence of ischemia with Lexiscan infusion. Nuclear test results to follow. Dr. Milagros Cortez MD (Electronically Signed) Final Date: 23 June 2024 12:59
--- NOTE | 2024-06-23 14:28 | P.PN ---
Progress Note - Text Patient off the floor during cardiology rounds for Lexiscan stress test. Currently awaiting Lexiscan results. Further recommendations pending stress test results
[2024-06-23 16:09] LABS: Glucose,Whole Blood 311 mg/dL (70-110)
--- NOTE | 2024-06-23 16:27 | NM ---
EXAMINATION TYPE: NM stress lexiscan cardiolite DATE OF EXAM: 06/23/2024 COMPARISON: 05/20/2024 CLINICAL INDICATION: Male, 44 years old with history of chest pain; TECHNIQUE: After the intravenous administration of 11.0 mCi Tc 99m Sestamibi - Cardiolite resting SP ECT images acquired 45 minutes post injection. The patient received 0.4mg Lexiscan, 26.5 mCi Tc 99m Sestamibi - Stress images obtained [address] injection FINDINGS: Review of stress and rest SPECT images demonstrates left ventricular chamber enlargement and large ar ea of fixed perfusion defect involving the inferior and lateral shane suggesting prior infarct. Howev er, stress, the perfusion defect enlarges to involve the anterior wall and some of the inferoseptal w all. Gated analysis shows no augmentation along the areas of fixed perfusion abnormality. Global hypokines is with estimated left ventricular ejection fraction of 25 %. TID calculated at 1.11, upper limits of normal. IMPRESSION: Findings suggesting ischemic cardiomyopathy with left ventricular dilatation and previous large infar ct involving the lateral half of the left ventricle. Estimated LVEF of only 25%. Inducible karthikeyan-infar ct ischemia demonstrated extending anteriorly and apically. [facility], , 06/23/2024 4:25 PM
[2024-06-23] MEDS: COLCHICINE 0.6 MG EACH PO SCH (18:07)
[2024-06-23 20:21] LABS: Glucose,Whole Blood 402 mg/dL (70-110)
[2024-06-24 04:06] VITALS: TEMP 98
[2024-06-24 06:05] LABS: Glucose,Whole Blood 299 mg/dL (70-110)
[2024-06-24 09:20] VITALS: RESP 16
[2024-06-24 11:45] LABS: Glucose,Whole Blood 218 mg/dL (70-110)
--- NOTE | 2024-06-24 12:48 | P.PN ---
Subjective HISTORY OF PRESENT ILLNESS: This is a 44-year-old male patient of Dr. Hernandez with past medical history of CAD with known chronic total occlusion of the RCA and left circumflex and stenting of the LAD, severe ischemic cardiomyopathy with EF of 30 to 35% status post AICD, hypertension, dyslipidemia, overweight, right below the knee amputation, issues in the past with noncompliance. Patient has had multiple hospitalizations and cardiac catheterizations/PCI since March 2024 and in April of this year. Patient had a recent hospitalization and on 05/20 underwent Lexiscan stress test that revealed a large area of previous inferior lateral wall infarct with findings compatible with inducible karthikeyan-infarct ischemia extending to involve the lateral wall. EF 22%. Patient was cleared for discharge with plan to follow-up in the office. Patient had a subsequent hospitalization with elevated troponins and initially treated with heparin drip. He was started on Cardizem for antianginal and was cleared for discharge to follow-up with Dr. Hernnadez. Patient states he he was at the office for Dr. Hernandez yesterday and he was having chest pain and was advised to go to the emergency center. He states that Dr. Hernandez discussed with him possibility of heart transplant at [facility]. Patient states he was having pain on the left side of his chest that went up to his neck and it was on and off all day yesterday. Patient has been started on heparin drip and nitroglycerin drip. He thinks nitroglycerin helped a little bit. He is also on Nitropaste. He thinks the pain medications help more than the nitroglycerin. He is complaining of severe headache for which Tylenol will be ordered. Dr. Jensen contacted Dr. Hernandez regarding patient's plan. Options were provided to the patient and it was decided that patient would undergo a cardiac catheterization for further evaluation of the arteries. He is agreeable to move forward with this. -EKG: Sinus rhythm with ventricular conduction delay. -Laboratory studies: Troponin 0.126, 0.172, 0.188. Creatinine 0.94. Hemoglobin 13.7. -Home cardiac medications: Aspirin 81 mg daily, atorvastatin 80 mg at bedtime, Jardiance 25 mg daily, Zetia 10 mg daily, Imdur 60 mg daily, Toprol XL 200 mg daily, Nitrostat, Ranexa 1000 mg twice daily, Xarelto 2.5 mg twice daily, Entresto 49-51 mg twice daily, Brilinta 90 mg twice daily, spironolactone 12.5 mg daily. Patient is also on Ozempic. -Cardiac catheterization performed 04/08/2024 revealed patent stent in the mid and distal LAD and RETAIL PERFORMANCE COACH of the RCA and RETAIL PERFORMANCE COACH of the left circumflex. Subsequently, PTCA 04/10/2024 of both the PDA and PLV branches of the RCA was performed. -04/29/2024 cardiac catheterization finding patent stent in the mid and distal left anterior descending artery. Chronic total occlusion of the left circumflex. Intermediate to severe disease involving the mid RCA documented to be flow-limiting by Doppler wire and in the same setting, successful stenting of the mid RCA and PLB branch of the RCA. -05/12/2024 cardiac catheterization revealed patent stent to the LAD diagonal system. RETAIL PERFORMANCE COACH of the left circumflex and left circumflex fills by collaterals. Severe in-stent restenosis involving the mid RCA with multiple layers of stent. Balloon angioplasty was performed with no stenting of the RCA. Mildly elevated left-sided filling pressure. -Limited echocardiogram performed on 05/10/2024 revealed EF of 35%, RVSP 38. Negative bubble study. No pericardial effusion. -Lexiscan stress test performed on 05/20/2024 revealed a large area of previous inferior lateral wall infarct with findings compatible with inducible karthikeyan- infarct ischemia extending to involve the lateral wall. EF 22%. 06/18 Patient seen and examined on the cardiac stepdown unit. Yesterday, he underwent cardiac cath with Dr. Hernandez which revealed patent stent in the proximal LAD. Intermediate disease involving the mid LAD documented to be flow-limiting by Doppler wire. PCI of the LAD was performed. There was total occlusion of the left circumflex which is known from before. Severe disease involving the PDA and PLV branches of the RCA with multiple layers of stent. Elevated left-sided filling pressure. Patient to be on antiplatelet with aspirin and Brilinta for 12 months. Patient is complaining of left-sided chest pain. Blood pressure 148/93, heart rate 88, pulse ox 98% on room air. Repeat creatinine 0.96. Discussed that most likely chest pain is due to muscular skeletal etiology. We will try Solu-Medrol and Toradol and monitor overnight. Echocardiogram reveals EF of 20 to 25%, inferior and lateral wall motion abnormality. PPM with RA and RV. Severe LA dilatation. Recommended steroids to decrease inflammation of the chest. 06/19 Patient seen and examined. Yesterday, patient was complaining of left-sided chest pain for which patient was given 1 dose of IV Solu-Medrol and Toradol 30 mg twice daily x 3 doses. Blood pressure 129/86, heart rate 87, pulse ox 97% on room air. Patient apparently does not check his blood pressure at home he states he needs a new blood pressure cuff. Discussed plan to add in hydralazine, change Imdur and monitor overnight. Patient is agreeable. 06/20 Patient seen and examined. Yesterday, we added hydralazine and changed Imdur to 100 mg daily, continue IV Solu-Medrol due to patient's continued complaints of left-sided chest pain. Sed rate came back at 17 and C-reactive protein 2.5. Patient states that his pain gets worse with activity and also seems to get better with nitroglycerin with at least a 1-2 point drop in a scale of 1-10. CT of the chest was performed on 06/18 ordered by attending for pleural effusion. This revealed no acute pulmonary process or pleural effusion seen bilaterally. 06/21 Patient seen and examined. Patient is scheduled for Lexiscan stress test on Saturday. Patient states today he was feeling faint after he laid down from a shower. He did not have it while he was in the shower. Yesterday we had increased hydralazine to 50 mg 3 times daily. Blood pressure 114/81, heart rate 81, pulse ox 97% on room air. 06/22/2024 Patient examined this morning at the bedside. Patient continues to report mild chest discomfort. He denies shortness of breath. Vital signs are stable. Patient was supposed to be scheduled for Lexiscan stress test today. However he was not made n.p.o. at midnight so this will be rescheduled for tomorrow. 06/24/2024 Patient underwent Lexiscan stress test yesterday. Results reviewed by Dr. Esposito. Patient examined strength bedside. Patient continues to report chest discomfort that is unchanged. He denies shortness of breath. Vital signs are stable. PHYSICAL EXAM: VITAL SIGNS: Reviewed. GENERAL: Well-developed in no acute distress. NECK: Supple. No JVD or thyromegaly LUNGS: Respirations even and unlabored. Lungs essentially clear to auscultation bilaterally. HEART: Regular rate and rhythm. S1 and S2 heard. EXTREMITIES: Normal range of motion. No clubbing or cyanosis. Right BKA. ASSESSMENT: NSTEMI status post PCI of the LAD 06/17 Several hospitalizations for NSTEMI Severe CAD status post multiple PCI as above Dyslipidemia Diabetes mellitus type 2 Obesity with BMI of 36 Right below the knee amputation Ischemic cardiomyopathy with EF of 35% Status post AICD Hypertension PAD on Xarelto vascular dosing PLAN: Continue current cardiac medications including amlodipine, aspirin, atorvastatin, colchicine, Farxiga, Zetia, Imdur, metoprolol, Ranexa, Entresto, Aldactone, and Brilinta Recommend outpatient myocardial perfusion imaging Per Dr. Esposito, no further inpatient recommendations from a cardiac standpoint and patient may be discharged home today Nurse practitioner note has been reviewed by physician. Signing provider agrees with the documented findings, assessment, and plan of care documented by SEX THERAPIST as a scribe. Objective - Vital Signs Vital signs: Vital Signs Temp 98 F 06/24/24 04:00 Pulse 89 06/24/24 08:22 Resp 16 06/24/24 08:00 BP 121/81 06/24/24 08:00 Pulse Ox 97 06/24/24 08:00 FiO2 Intake & Output 06/23/24 06/24/24 06/24/24 18:59 06:59 18:59 Intake Total 1002 10 Balance 1002 10 Weight 127.3 kg Intake: IV 10 0.9 10 Oral 1002 Other: Voiding Method Toilet Toilet Toilet # Voids 1 - Labs CBC & Chem 7: 06/23/24 06:27 06/23/24 06:27 Labs: Abnormal Lab Results - Last 24 Hours (Table) 06/23/24 06/23/24 06/24/24 Range/Units 16:04 20:19 06:04 POC Glucose (mg/dL) 311 H 402 H 299 H (70-110) mg/dL 06/24/24 Range/Units 11:43 POC Glucose (mg/dL) 218 H (70-110) mg/dL
[2024-06-24 12:52] VITALS: BP 107/63; PULSE 76
--- NOTE | 2024-06-24 20:05 | PN ---
PROGRESS NOTE A 44-year-old male, still getting shortness of breath with ambulation. Stress test shows ischemia in coronary arteries. Await for Cardiology to re-evaluate him for another heart cath or bypass etc. PHYSICAL EXAMINATION: VITAL SIGNS: Reviewed. CARDIOVASCULAR: S1 and S2. LUNGS: Transmitted upper airway sounds. GI: Soft. EXTREMITIES: BKA of the right leg. ASSESSMENT: 1. Coronary artery disease. 2. Chronic obstructive pulmonary disease. 3. Obesity. Risk-factor modification will be done. Possibly, heart catheterization or bypass will be needed due to unstable angina and increased abnormal stress test. MMODL / IJN: [id number] /
== END 2024-06-24 14:41 | disposition home or self-care (01) | DRG 174 ==
LOC: EC 19:06 → 3SCARD 06-17 00:09
PROVIDERS: ADMIT Family Medicine; ATTEND Family Medicine
PROC: B2111ZZ Fluoroscopy of Multiple Coronary Arteries using Low Osmolar Contrast (ICD-10-PCS; 2024-06-17)
PROC: 027034Z Dilation of Coronary Artery, One Artery with Drug-eluting Intraluminal Device, Percutaneous Approach (ICD-10-PCS; principal; 2024-06-17 11:25)
PROC: 4A033BC Measurement of Arterial Pressure, Coronary, Percutaneous Approach (ICD-10-PCS; 2024-06-17 11:25)
PROC: B240ZZ3 Ultrasonography of Single Coronary Artery, Intravascular (ICD-10-PCS; 2024-06-17 11:25)
PROC: 4A023N7 Measurement of Cardiac Sampling and Pressure, Left Heart, Percutaneous Approach (ICD-10-PCS; 2024-06-17 11:25)
DX: I21.4 Non-ST elevation (NSTEMI) myocardial infarction (principal); G62.89 Other specified polyneuropathies; G54.6 Phantom limb syndrome with pain; I50.22 Chronic systolic (congestive) heart failure; I11.0 Hypertensive heart disease with heart failure; J44.89 Other specified chronic obstructive pulmonary disease; E11.51 Type 2 diabetes mellitus with diabetic peripheral angiopathy without gangrene; E66.01 Morbid (severe) obesity due to excess calories; I25.10 Atherosclerotic heart disease of native coronary artery without angina pectoris; I25.82 Chronic total occlusion of coronary artery; R51.9 Headache, unspecified; E78.5 Hyperlipidemia, unspecified; I25.5 Ischemic cardiomyopathy; G47.33 Obstructive sleep apnea (adult) (pediatric); Z89.511 Acquired absence of right leg below knee; Z79.4 Long term (current) use of insulin; Z95.810 Presence of automatic (implantable) cardiac defibrillator; Z95.5 Presence of coronary angioplasty implant and graft; Z68.36 Body mass index [BMI] 36.0-36.9, adult; Z79.82 Long term (current) use of aspirin; Z79.85 Long-term (current) use of injectable non-insulin antidiabetic drugs; Z79.84 Long term (current) use of oral hypoglycemic drugs; Z79.02 Long term (current) use of antithrombotics/antiplatelets; Z79.01 Long term (current) use of anticoagulants; Z79.899 Other long term (current) drug therapy; Z82.49 Family history of ischemic heart disease and other diseases of the circulatory system; Z87.891 Personal history of nicotine dependence; I25.2 Old myocardial infarction
CPT/HCPCS: 36415; 71046; 71250; 78452; 80048; 80053; 80061; 82565; 83735; 84484; 85025; 85610; 85652; 85730; 86140; 92978; 93005; 93017; 93308; 93458; 93799; 94640; 96365; 96366; 96375; 96376; 99291

== ENCOUNTER 2024-06-26 13:35 | Inpatient (IN) | payer OTHER ==
--- NOTE | 2024-06-26 14:17 | ED ---
General Adult HPI - General Chief complaint: Chest Pain Stated complaint: Chest pains Time Seen by Provider: 06/26/24 13:49 Source: patient Mode of arrival: ambulatory Limitations: no limitations - History of Present Illness Initial comments: Dictation was produced using MUJIN dictation software. please excuse any grammatical, word or spelling errors. Chief Complaint: 44-year-old male with chest pain History of Present Illness: Patient is a 44-year-old male reported history of coronary artery disease, coronary artery stents. States that he has had chest pain starting today. Reports that it is described as a pressure to his substernal area with radiation to the right upper extremity associate with nausea and diaphoresis. Patient states he does have some mild symptoms at this time. Patient's rack puller is Dr. Orlando The ROS documented in this emergency department record has been reviewed and confirmed by me. Those systems with pertinent positive or negative responses have been documented in the HPI. All other systems are other negative and/or noncontributory. - Related Data Home Medications Medication Instructions Recorded Confirmed Insulin NPH Hum/Reg Insulin Hm 60 unit SQ BID 12/07/21 06/17/24 [humuLIN 70/30 Kwikpen] Ranolazine [Ranexa] 1,000 mg PO BID 03/11/24 06/17/24 Semaglutide [Ozempic] 1 mg SQ TH 03/11/24 06/17/24 Lidocaine 4% Patch 1 patch TRANSDERM DAILY 05/08/24 06/17/24 Previous Rx's Medication Instructions Recorded Aspirin 81 mg PO DAILY #30 07/15/21 Nitroglycerin Sl Tabs [Nitrostat] 0.4 mg SUBLINGUAL Q5M PRN #30 tab 07/15/21 Ezetimibe [Zetia] 10 mg PO DAILY #90 tab 04/11/24 Mag Hydrox/Al Hydrox/Simeth 30 ml PO Q4HR PRN ml 04/11/24 [Maalox] Colchicine [Colcrys] 0.6 mg PO DAILY #30 each 05/02/24 Atorvastatin [Lipitor] 80 mg PO HS #30 tab 05/13/24 Empagliflozin [Jardiance] 25 mg PO DAILY #30 tab 05/13/24 Metoprolol Succinate [Toprol XL] 200 mg PO DAILY #30 tab 05/13/24 Ticagrelor [Brilinta] 90 mg PO BID #60 tab 05/13/24 Spironolactone [Aldactone] 25 mg PO DAILY #30 tablet 06/08/24 Gabapentin [Neurontin] 300 mg PO TID 30 Days #90 cap 06/24/24 Ipratropium-Albuterol Nebulize 3 ml INHALATION RT-TID 30 Days 06/24/24 [Duoneb 0.5 mg-3 mg/3 ml Soln] #120 each Isosorbide Mononitrate ER [Imdur] 120 mg PO DAILY 30 Days #30 tab 06/24/24 Sacubitril/Valsartan [Entresto 97 1 each PO BID 30 Days #50 tab 06/24/24 mg-103 mg Tablet] amLODIPine [Norvasc] 5 mg PO DAILY 30 Days #30 tab 06/24/24 Allergies Allergy/AdvReac Type Severity Reaction Status Date / Time Penicillins Allergy Unknown Verified 06/26/24 13:41 Childhood Review of Systems ROS Statement: Those systems with pertinent positive or pertinent negative responses have been documented in the HPI. ROS Other: All systems not noted in ROS Statement are negative. Past Medical History Past Medical History: Coronary Artery Disease (CAD), Chest Pain / Angina, Heart Failure, Diabetes Mellitus, Hyperlipidemia, Hypertension, Myocardial Infarction (ID), Sleep Apnea/CPAP/BIPAP, Syncope Additional Past Medical History / Comment(s): AICD. IDDM type II. Neuropathy bilateral feet. 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 Migraines. Chronic back pain. R BKA (done May). Last Myocardial Infarction Date:: 2023 History of Any Multi-Drug Resistant Organisms: None Reported Past Surgical History: AICD, Heart Catheterization, Heart Catheterization With Stent, Orthopedic Surgery Additional Past Surgical History / Comment(s): 10/27/12 AICD, DFTs, PCI with 2 stents, R BKA. Past Anesthesia/Blood Transfusion Reactions: No Reported Reaction Date of Last Stent Placement:: 02/03/16 Type of Cardiac Device: AICD Device Placement Date:: 2012 Past Psychological History: Anxiety, Depression Smoking Status: Former smoker Past Alcohol Use History: None Reported Past Drug Use History: None Reported - Past Family History Mother Family Medical History: No Reported History Brother(s) Family Medical History: Myocardial Infarction (ID) Father Family Medical History: Liver Disease Sister(s) Additional Family Medical History / Comment(s): Huntings disease General Exam - General Exam Comments Initial Comments: PHYSICAL EXAM: General Impression: Alert and oriented x3, not in acute distress HEENT: Normocephalic atraumatic, extra-ocular movements intact, pupils equal and reactive to light bilaterally, mucous membranes moist. Cardiovascular: Heart regular rate and rhythm Chest: Able to complete full sentences, no retractions, no tachypnea Abdomen: abdomen soft, non-tender, non-distended, no organomegaly Musculoskeletal: Pulses present and equal in all extremities, no peripheral edema Motor: no focal deficits noted Neurological: CN II-XII grossly intact, no focal motor or sensory deficits noted Skin: Intact with no visualized rashes Psych: Normal affect and mood Limitations: no limitations Course Vital Signs 06/26/24 13:39 Temperature 97.9 F Pulse Rate 113 H Respiratory 20 Rate Blood Pressure 139/85 O2 Sat by Pulse 99 Oximetry EKG Findings - EKG Comments: EKG Findings:: My EKG interpretation: Ventricular rate 113, sinus tachycardia, MA interval 187, QRS 148, QTc 4 4. No MA prolongation, no QTC prolongation, no ST or T-wave changes noted. EKG compared to June 18, 2024 showing no changes. Overall, this EKG is unremarkable Medical Decision Making - Medical Decision Making Was pt. sent in by a medical professional or institution ([facility], [facility], urgent care, hospital, or prison...) When possible be specific @ -No Did you speak to anyone other than the patient for history (EMS, parent, family, police, friend...)? What history was obtained from this source @ -No Did you review nursing and triage notes (agree or disagree)? Why? @ -I reviewed and agree with nursing and triage notes Were old charts reviewed (outside hosp., previous admission, EMS record, old EKG, old radiological studies, urgent care reports/EKG's, prison records)? Report findings @ -No old charts were reviewed Differential Diagnosis (chest pain, altered mental status, abdominal pain women, abdominal pain men, vaginal bleeding, musculoskeletal, weakness, fever, dyspnea, syncope, headache, dizziness, GI bleed, back pain, seizure, CVA, palpatations, mental health)? @ -Differential Chest Pain: Stable Angina, Unstable Angina, STEMI, NSTEMI Aortic Dissection, Pneumothorax, Musculoskeletal, Esophageal Spasm GERD, Cholecystitis, Pancreatitis, Zoster, this is not meant to be an all-inclusive list. EKG interpreted by me (3pts min.). @ -See above X-rays interpreted by me (1pt min.). @ -Chest x-ray shows no acute processes CT interpreted by me (1pt min.). @ -None done U/S interpreted by me (1pt. min.). @ -None done What testing was considered but not performed or refused? (CT, X-rays, U/S, labs)? Why? @ -None What meds were considered but not given or refused? Why? @ -None Was smoking cessation discussed for >3mins.? @ -No Were there social determinants of health that impacted care today? How? (Homelessness, low income, unemployed, alcoholism, drug addiction, transportation, low edu. Level, literacy, decrease access to med. care, [facility], rehab)? @ -No Was there de-escalation of care discussed even if they declined (Discuss DNR or withdrawal of care, Hospice)? DNR status @ -No What co-morbidities impacted this encounter? (DM, HTN, Smoking, COPD, CAD, Cancer, CVA, ARF, Chemo, Hep., AIDS, mental health diagnosis, sleep apnea, morbid obesity)? @ -Acute coronary syndrome Was patient admitted / discharged? Hospital course, mention meds given and route, prescriptions, significant lab abnormalities, going to OR and other pertinent info. @ -44-year-old male presents emergency department with chest pain. Patient has extensive cardiac history including coronary artery disease, coronary artery stents and ID. Vital signs upon arrival are within acceptable limits. EKG does not show any signs of ischemia or infarction. Laboratory evaluation obtained. Labs within acceptable limits. Troponin 0.068. This is around patient's baseline. Patient on aspirin will be admitted case discussed with hospitalist for admission patient given aspirin Did you discuss the management of the patient with other professionals (professionals i.e. , PA, [facility], lab, RT, psych nurse, licensed clinical social worker, international sales manager, teacher, customs and immigration officer, oil field caser)? Give summary @ -No Was critical care preformed (if so, how long)? @ -No Undiagnosed new problem with uncertain prognosis? @ -No Drug Therapy requiring intensive monitoring for toxicity (Heparin, Nitro, Insulin, Cardizem)? @ -No Were any procedures done? @ -No Diagnosis/symptom? Acute, or Chronic, or Acute on Chronic? Uncomplicated (without systemic symptoms) or Complicated (systemic symptoms)? @ -Chest pain Side effects of treatment? @ -No Exacerbation, Progression, or Severe Exacerbation? @ -No Poses a threat to life or bodily function? How? (Chest pain, USA, ID, pneumonia, PE, COPD, DKA, ARF, appy, cholecystitis, CVA, Diverticulitis, Homicidal, Suicidal, threat to staff... and all critical care pts) @ -yes - Lab Data Result diagrams: 06/26/24 14:30 06/26/24 14:30 Lab Results 06/26/24 06/26/24 06/26/24 Range/Units 14:30 14:30 14:30 WBC 8.9 (3.8-10.6) k/uL RBC 6.21 H (4.30-5.90) m/uL Hgb 14.6 (13.0-17.5) gm/dL Hct 47.7 (39.0-53.0) % MCV 76.9 L (80.0-100.0) fL MCH 23.5 L (25.0-35.0) pg MCHC 30.5 L (31.0-37.0) g/dL RDW 16.2 H (11.5-15.5) % Plt Count 254 (150-450) k/uL MPV 7.3 Neutrophils % 72 % Lymphocytes % 16 % Monocytes % 6 % Eosinophils % 3 % Basophils % 1 % Neutrophils # 6.4 (1.3-7.7) k/uL Lymphocytes # 1.4 (1.0-4.8) k/uL Monocytes # 0.5 (0-1.0) k/uL Eosinophils # 0.3 (0-0.7) k/uL Basophils # 0.1 (0-0.2) k/uL Hypochromasia Moderate Anisocytosis Slight Microcytosis Slight PT 10.0 (10.0-12.5) sec INR 0.9 (<1.2) APTT 22.5 (22.0-30.0) sec Sodium 134 L (137-145) mmol/L Potassium 4.2 (3.5-5.1) mmol/L Chloride 103 (98-107) mmol/L Carbon Dioxide 22 (22-30) mmol/L Anion Gap 9 mmol/L BUN 23 H (9-20) mg/dL Creatinine 1.04 (0.66-1.25) mg/dL Est GFR (CKD-EPI)AfAm >90 (>60 ml/min/1.73 sqM) Est GFR (CKD-EPI)NonAf 87 (>60 ml/min/1.73 sqM) Glucose 425 H (74-99) mg/dL Calcium 8.6 (8.4-10.2) mg/dL Magnesium 2.2 (1.6-2.3) mg/dL Total Bilirubin 0.6 (0.2-1.3) mg/dL AST 20 (17-59) U/L ALT 19 (4-49) U/L Alkaline Phosphatase 95 (38-126) U/L Troponin I (0.000-0.034) ng/mL Total Protein 6.3 (6.3-8.2) g/dL Albumin 3.5 (3.5-5.0) g/dL 06/26/24 Range/Units 14:30 WBC (3.8-10.6) k/uL RBC (4.30-5.90) m/uL Hgb (13.0-17.5) gm/dL Hct (39.0-53.0) % MCV (80.0-100.0) fL MCH (25.0-35.0) pg MCHC (31.0-37.0) g/dL RDW (11.5-15.5) % Plt Count (150-450) k/uL MPV Neutrophils % % Lymphocytes % % Monocytes % % Eosinophils % % Basophils % % Neutrophils # (1.3-7.7) k/uL Lymphocytes # (1.0-4.8) k/uL Monocytes # (0-1.0) k/uL Eosinophils # (0-0.7) k/uL Basophils # (0-0.2) k/uL Hypochromasia Anisocytosis Microcytosis PT (10.0-12.5) sec INR (<1.2) APTT (22.0-30.0) sec Sodium (137-145) mmol/L Potassium (3.5-5.1) mmol/L Chloride (98-107) mmol/L Carbon Dioxide (22-30) mmol/L Anion Gap mmol/L BUN (9-20) mg/dL Creatinine (0.66-1.25) mg/dL Est GFR (CKD-EPI)AfAm (>60 ml/min/1.73 sqM) Est GFR (CKD-EPI)NonAf (>60 ml/min/1.73 sqM) Glucose (74-99) mg/dL Calcium (8.4-10.2) mg/dL Magnesium (1.6-2.3) mg/dL Total Bilirubin (0.2-1.3) mg/dL AST (17-59) U/L ALT (4-49) U/L Alkaline Phosphatase (38-126) U/L Troponin I 0.068 H* (0.000-0.034) ng/mL Total Protein (6.3-8.2) g/dL Albumin (3.5-5.0) g/dL Disposition Clinical Impression: Chest pain Disposition: ADMITTED IP TO THIS HOSP Condition: Fair Referrals: Carlo Espinal MD [Primary Care Provider] - 1-2 days Decision Time: 16:02
--- NOTE | 2024-06-26 14:27 | XR ---
EXAMINATION TYPE: XR chest 2V DATE OF EXAM: 06/26/2024 2:23 PM COMPARISON: Chest radiographs from 06/16/2024, CT chest 06/18/2024 TECHNIQUE: XR chest 2V Frontal and lateral views of the chest. CLINICAL INDICATION:Male, 44 years old with history of Chest Pain; FINDINGS: Lungs/Pleura: There is no evidence of pleural effusion, focal consolidation, or pneumothorax. Pulmonary vascularity: Unremarkable. Heart/mediastinum: Cardiomediastinal silhouette is unremarkable. Single-lead cardiac conduction devic e overlying the left hemithorax with lead projecting over the right ventricle. Musculoskeletal: No acute osseous pathology. IMPRESSION: No acute cardiopulmonary disease/process. [facility], , 06/26/2024 2:25 PM
[2024-06-26 14:48] LABS: Anisocytosis Slight; Basophils # (A) 0.1 k/uL (0-0.2); Basophils % (A) 1 %; Eosinophils # (A) 0.3 k/uL (0-0.7); Eosinophils % (A) 3 %; HCT 47.7 % (39.0-53.0); HGB 14.6 gm/dL (13.0-17.5); Hypochromasia Moderate; Lymphocytes # (A) 1.4 k/uL (1.0-4.8); Lymphocytes % (A) 16 %; MCH 23.5 pg (25.0-35.0); MCHC 30.5 g/dL (31.0-37.0); MCV 76.9 fL (80.0-100.0); Mean Platelet Volume 7.3; Microcytosis Slight; Monocytes # (A) 0.5 k/uL (0-1.0); Monocytes % (A) 6 %; Neutrophils # (A) 6.4 k/uL (1.3-7.7); Neutrophils % (A) 72 %; Platelet Count 254 k/uL (150-450); RBC 6.21 m/uL (4.30-5.90); RDW 16.2 % (11.5-15.5); WBC 8.9 k/uL (3.8-10.6)
[2024-06-26 15:04] LABS: INR 0.9 (<1.2); Partial Thromboplastin Time 22.5 sec (22.0-30.0)
[2024-06-26 15:06] LABS: ALT 19 U/L (4-49); AST 20 U/L (17-59); African American GFR (CKD) >90 (>60 ml/min/1.73 sqM); Albumin 3.5 g/dL (3.5-5.0); Alkaline Phosphatase 95 U/L (38-126); Anion Gap 9 mmol/L; Blood Urea Nitrogen 23 mg/dL (9-20); Calcium 8.6 mg/dL (8.4-10.2); Carbon Dioxide 22 mmol/L (22-30); Chloride 103 mmol/L (98-107); Glucose 425 mg/dL (74-99); Magnesium 2.2 mg/dL (1.6-2.3); Non-African American GFR(CKD) 87 (>60 ml/min/1.73 sqM); Potassium 4.2 mmol/L (3.5-5.1); Sodium 134 mmol/L (137-145); Total Bilirubin 0.6 mg/dL (0.2-1.3); Total Protein 6.3 g/dL (6.3-8.2)
[2024-06-26] MEDS: ASPIRIN 81 MG PO STA (15:48)
[2024-06-26] MEDS: NITROGLYCERIN SL TABS 0.4 MG TAB SUBLINGUAL PRN (16:36)
--- NOTE | 2024-06-26 19:07 | P.HPIM ---
History of Present Illness H&P Date: 06/26/24 Chief Complaint: Sudden onset of chest pain 44-year-old male with history of coronary artery disease and multiple stent placement, came into the hospital with sudden onset of chest pain substernal with radiation to the right shoulder associated with nausea and vomiting, curr ently at the time of evaluation patient is asymptomatic, denies any cough or sputum production denies any dizziness lightheadedness, denies any nausea vomiting abdominal pain currently past medical history significant for diabetes mellitus, peripheral vascular disease status post BKA over nonhealing wounds, dyslipidemia, sleep disordered breathing and sleep apnea, syncope history of cardiomyopathy status post AICD Labs reviewed WBC count 8.9 hemoglobin hematocrit 14/47 platelet count 2 54,000, troponin is slightly elevated 0.068 then subsequent second was 0.125, sodium 134 potassium 4.2 BUN/creatinine 23/1.04 LFTs within normal limit, chest x-ray no acute cardiopulmonary process seen, ECG sinus tachycardia, interventricular conduction delay, Review of Systems All systems: negative Past Medical History Past Medical History: Coronary Artery Disease (CAD), Chest Pain / Angina, Heart Failure, Diabetes Mellitus, Hyperlipidemia, Hypertension, Myocardial Infarction ([place]), Sleep Apnea/CPAP/BIPAP, Syncope Additional Past Medical History / Comment(s): AICD. IDDM type II. Neuropathy bilateral feet. 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 Migraines. Chronic back pain. R BKA (done 2023). Last Myocardial Infarction Date:: 2023 History of Any Multi-Drug Resistant Organisms: None Reported Past Surgical History: AICD, Heart Catheterization, Heart Catheterization With Stent, Orthopedic Surgery Additional Past Surgical History / Comment(s): 10/27/12 AICD, DFTs, PCI with 2 stents, R BKA. Past Anesthesia/Blood Transfusion Reactions: No Reported Reaction Date of Last Stent Placement:: 02/03/16 Type of Cardiac Device: AICD Device Placement Date:: 2012 Past Psychological History: Anxiety, Depression Smoking Status: Former smoker Past Alcohol Use History: None Reported Past Drug Use History: None Reported - Past Family History Mother Family Medical History: No Reported History Brother(s) Family Medical History: Myocardial Infarction ([place]) Father Family Medical History: Liver Disease Sister(s) Additional Family Medical History / Comment(s): Huntings disease Medications and Allergies Home Medications Medication Instructions Recorded Confirmed Type Aspirin 81 mg PO DAILY #30 07/15/21 06/26/24 Rx Nitroglycerin Sl Tabs [Nitrostat] 0.4 mg SUBLINGUAL Q5M PRN #30 tab 07/15/21 06/26/24 Rx Insulin NPH Hum/Reg Insulin Hm 60 unit SQ BID 12/07/21 06/26/24 History [humuLIN 70/30 Kwikpen] Ranolazine [Ranexa] 1,000 mg PO BID 03/11/24 06/26/24 History Semaglutide [Ozempic] 1 mg SQ TH 03/11/24 06/26/24 History Ezetimibe [Zetia] 10 mg PO DAILY #90 tab 04/11/24 06/26/24 Rx Mag Hydrox/Al Hydrox/Simeth 30 ml PO Q4HR PRN ml 04/11/24 06/26/24 Rx [Maalox] Colchicine [Colcrys] 0.6 mg PO DAILY #30 each 05/02/24 06/26/24 Rx Lidocaine 4% Patch 1 patch TRANSDERM DAILY 05/08/24 06/26/24 History Atorvastatin [Lipitor] 80 mg PO HS #30 tab 05/13/24 06/26/24 Rx Empagliflozin [Jardiance] 25 mg PO DAILY #30 tab 05/13/24 06/26/24 Rx Metoprolol Succinate [Toprol XL] 200 mg PO DAILY #30 tab 05/13/24 06/26/24 Rx Ticagrelor [Brilinta] 90 mg PO BID #60 tab 05/13/24 06/26/24 Rx Spironolactone [Aldactone] 25 mg PO DAILY #30 tablet 06/08/24 06/26/24 Rx Gabapentin [Neurontin] 300 mg PO TID 30 Days #90 cap 06/24/24 06/26/24 Rx Ipratropium-Albuterol Nebulize 3 ml INHALATION RT-TID 30 Days 06/24/24 06/26/24 Rx [Duoneb 0.5 mg-3 mg/3 ml Soln] #120 each Isosorbide Mononitrate ER [Imdur] 120 mg PO DAILY 30 Days #30 tab 06/24/24 06/26/24 Rx amLODIPine [Norvasc] 5 mg PO DAILY 30 Days #30 tab 06/24/24 06/26/24 Rx Sacubitril/Valsartan [Entresto 97 1 tab PO BID 06/26/24 06/26/24 History mg-103 mg Tablet] Allergies Allergy/AdvReac Type Severity Reaction Status Date / Time Penicillins Allergy Unknown Verified 06/26/24 16:18 Childhood Physical Exam Vitals: Vital Signs Temp Pulse Resp BP Pulse Ox 06/26/24 16:36 103 H 20 132/89 98 06/26/24 13:39 97.9 F 113 H 20 139/85 99 Intake and Output 06/26/24 06/26/24 06/26/24 06:59 14:59 22:59 Other: Weight 127.006 kg - Constitutional General appearance: average body habitus, cooperative, disheveled - EENT Eyes: EOMI, PERRLA ENT: normal oropharynx Ears: bilateral: normal - Neck Neck: normal ROM Carotids: bilateral: upstroke normal Thyroid: bilateral: normal size - Respiratory Respiratory: bilateral: CTA - Cardiovascular Rhythm: regular Heart sounds: normal: S1, S2 - Gastrointestinal General gastrointestinal: hyperactive bowel sounds, soft - Integumentary Integumentary: normal turgor - Neurologic Neurologic: CNII-XII intact - Musculoskeletal Musculoskeletal: gait normal, generalized weakness, strength equal bilaterally - Psychiatric Psychiatric: A&O x's 3, appropriate affect, intact judgment & insight Results CBC & Chem 7: 06/26/24 14:30 06/26/24 14:30 Labs: Abnormal Lab Results - Last 24 Hours (Table) 06/26/24 06/26/24 06/26/24 Range/Units 14:30 14:30 14:30 RBC 6.21 H (4.30-5.90) m/uL MCV 76.9 L (80.0-100.0) fL MCH 23.5 L (25.0-35.0) pg MCHC 30.5 L (31.0-37.0) g/dL RDW 16.2 H (11.5-15.5) % Sodium 134 L (137-145) mmol/L BUN 23 H (9-20) mg/dL Glucose 425 H (74-99) mg/dL Troponin I 0.068 H* (0.000-0.034) ng/mL 06/26/24 Range/Units 17:32 RBC (4.30-5.90) m/uL MCV (80.0-100.0) fL MCH (25.0-35.0) pg MCHC (31.0-37.0) g/dL RDW (11.5-15.5) % Sodium (137-145) mmol/L BUN (9-20) mg/dL Glucose (74-99) mg/dL Troponin I 0.125 H* (0.000-0.034) ng/mL Chest x-ray: report reviewed, image reviewed Assessment and Plan Assessment: Chest pain with elevated cardiac enzymes, patient has been started on heparin drip and aspirin Diabetes mellitus with hyperglycemia uncontrolled Cardiomyopathy status post AICD Dyslipidemia Hypertension hypertensive cardiovascular disease Peripheral vascular disease Plan: IV heparin Aspirin Resume home medicines including sliding scale insulin short and long-acting insulin Resume high intensity statins Consult cardiology Time with Patient: Greater than 30
[2024-06-26] MEDS: HEPARIN SOD,PORK IN 0.45% NACL 25,000 UNIT in 0.45% NACL 1 250ML.BAG IV SCH (19:24)
[2024-06-26] MEDS: NITROGLYCERIN SL TABS 0.4 MG TAB SUBLINGUAL STA (19:24)
[2024-06-26] MEDS: HEPARIN SODIUM 1,000 UN/ML (10ML VL) IV ONE (19:28)
[2024-06-26] MEDS: MORPHINE SULFATE 4 MG/ML SYRINGE IV STA (23:04)
[2024-06-27] MEDS: HEPARIN SODIUM 1,000 UN/ML (10ML VL) IV PRN (02:54)
[2024-06-27] MEDS: ASPIRIN 325 MG TAB PO SCH (10:27)
--- NOTE | 2024-06-27 11:26 | P.PN ---
Subjective Progress Note Date: 06/27/24 Principal diagnosis: Non-STEMI Chest pain with elevated cardiac enzymes, patient has been continued on heparin drip and aspirin Facial cellulitis and cyst Diabetes mellitus with hyperglycemia uncontrolled Cardiomyopathy status post AICD Dyslipidemia Hypertension hypertensive cardiovascular disease Peripheral vascular disease June 27, 2024, patient seen eval examined during rounds labs reviewed medications and care plan discussed, care plan discussed with RN at length as well, patient has been pain-free however this morning started having substernal chest pain with radiation to the left neck and shoulder. Patient remains on IV heparin and aspirin, hemodynamic status stable, patient has been asking for morphine as well. Noted there is order for nitro we will use nitro if pain is still present then use Tylenol and/or or morphine. Patient remains on heparin dose is being adjusted, also noted nodular inflammatory changes on the right side of the nose size of a grape with mild tenderness will obtain CT scan of the chest patient will be started on IV Rocephin. Home medications reviewed, will resume insulin 7330 60 units twice daily, Zetia 10 mg daily DuoNeb nebulization treatment, Lipitor 80 mg daily, metoprolol will start with low-dose 25 mg 3 times a day and Imdur 120 mg daily awaiting further recommendation from cardiovascular services 44-year-old male with history of coronary artery disease and multiple stent placement, came into the hospital with sudden onset of chest pain substernal with radiation to the right shoulder associated with nausea and vomiting, currently at the time of evaluation patient is asymptomatic, denies any cough or sputum production denies any dizziness lightheadedness, denies any nausea vomiting abdominal pain currently past medical history significant for diabetes mellitus, peripheral vascular disease status post BKA over nonhealing wounds, dyslipidemia, sleep disordered breathing and sleep apnea, syncope history of cardiomyopathy status post AICD Labs reviewed WBC count 8.9 hemoglobin hematocrit 14/47 platelet count 2 54,000, troponin is slightly elevated 0.068 then subsequent second was 0.125, sodium 134 potassium 4.2 BUN/creatinine 23/1.04 LFTs within normal limit, chest x-ray no acute cardiopulmonary process seen, ECG sinus tachycardia, interventricular conduction delay Objective - Vital Signs Vital signs: Vital Signs Temp 97.8 F 06/27/24 10:40 Pulse 88 06/27/24 10:40 Resp 22 06/27/24 10:40 BP 115/69 06/27/24 10:40 Pulse Ox 97 06/27/24 10:40 FiO2 Intake & Output 06/26/24 06/27/24 06/27/24 18:59 06:59 18:59 Intake Total 74 105.156 Balance 74 105.156 Weight 127.006 kg Intake: Intake, IV Titration 74 105.156 Amount Heparin Sod,Pork in 0.45% 74 105.156 NaCl 25,000 unit In 0.45 % NaCl 1 250ml.bag @ 12 UNITS/KG/HR 15.241 mls/hr IV .[id number] [facility] Rx#: [id number] - Exam - Constitutional General appearance: average body habitus, cooperative, disheveled - EENT Eyes: EOMI, PERRLA ENT: normal oropharynx Ears: bilateral: normal Face: Over the right side paranasal area size of grapelike localized cellulitis with mild tenderness noted - Neck Neck: normal ROM Carotids: bilateral: upstroke normal Thyroid: bilateral: normal size - Respiratory Respiratory: bilateral: CTA - Cardiovascular Rhythm: regular Heart sounds: normal: S1, S2 - Gastrointestinal General gastrointestinal: hyperactive bowel sounds, soft - Integumentary Integumentary: normal turgor - Neurologic Neurologic: CNII-XII intact - Musculoskeletal Musculoskeletal: gait normal, generalized weakness, strength equal bilaterally - Psychiatric Psychiatric: A&O x's 3, appropriate affect, intact judgment & insight - Labs CBC & Chem 7: 06/26/24 14:30 06/26/24 14:30 Labs: Abnormal Lab Results - Last 24 Hours (Table) 06/26/24 06/26/24 06/26/24 Range/Units 14:30 14:30 14:30 RBC 6.21 H (4.30-5.90) m/uL MCV 76.9 L (80.0-100.0) fL MCH 23.5 L (25.0-35.0) pg MCHC 30.5 L (31.0-37.0) g/dL RDW 16.2 H (11.5-15.5) % Sodium 134 L (137-145) mmol/L BUN 23 H (9-20) mg/dL Glucose 425 H (74-99) mg/dL Troponin I 0.068 H* (0.000-0.034) ng/mL 06/26/24 06/26/24 Range/Units 17:32 20:19 RBC (4.30-5.90) m/uL MCV (80.0-100.0) fL MCH (25.0-35.0) pg MCHC (31.0-37.0) g/dL RDW (11.5-15.5) % Sodium (137-145) mmol/L BUN (9-20) mg/dL Glucose (74-99) mg/dL Troponin I 0.125 H* 0.213 H* (0.000-0.034) ng/mL Assessment and Plan Assessment: Non-STEMI Chest pain with elevated cardiac enzymes, patient has been continued on heparin drip and aspirin Facial cellulitis and cyst Diabetes mellitus with hyperglycemia uncontrolled Cardiomyopathy status post AICD Dyslipidemia Hypertension hypertensive cardiovascular disease Peripheral vascular disease Plan: IV heparin CT facial bone IV heparin Resume high intensity statins 70 3060 units twice daily DuoNeb Nitrites and beta-blockade Aspirin Resume home medicines including sliding scale insulin short and long-acting insulin Consult cardiology pending Time with Patient: Greater than 30
[2024-06-27] MEDS: ATORVASTATIN 80 MG TAB PO SCH (11:55)
[2024-06-27] MEDS: ISOSORBIDE MONONITRATE ER 60 MG TAB.ER.24H PO SCH (11:55)
[2024-06-27] MEDS: EZETIMIBE 10 MG TAB PO SCH (11:56)
[2024-06-27] MEDS: MORPHINE SULFATE 2 MG/ML SYRINGE IVP PRN (11:56)
--- NOTE | 2024-06-27 12:11 | CT ---
EXAMINATION TYPE: CT facial bones wo con DATE OF EXAM: 06/27/2024 COMPARISON: None CLINICAL INDICATION: Male, 44 years old with history of right sided facial abscess; PHH, Right sided facial abscess near nose TECHNIQUE: CT scan of the sinuses is performed without contrast, axial images are obtained, coronal reformatted images are also reviewed. CT DLP: 529.[address] CTDI: mGy Automated exposure control for dose reduction was used. FINDINGS: There is ill-defined asymmetric soft tissue swelling adjacent to the right nasal bone relative to the left but there is no discrete fluid collection. Underlying osseous structures are intact and there is no osteomyelitis or fracture of the nasal bones . There is mild chronic inflammatory change in the right maxillary sinus. The ostiomeatal complexes are patent. Frontal, ethmoid, sphenoid and left maxillary sinuses are well aerated. The mastoid air cells and middle ear cavities are well aerated. The intraorbital contents appear normal with symmetric. IMPRESSION: No osseous abnormality. Mild chronic inflammatory change in the right maxillary sinus. [facility], Workstation: [id number] 06/27/2024 12:09 PM
[2024-06-27] MEDS: IPRATROPIUM-ALBUTEROL 3 ML NEB INHALATION SCH (12:38)
[2024-06-27 13:37] LABS: LDL Cholesterol,Calculated 47.6 mg/dL (0.0-131.0)
[2024-06-27] MEDS: METOPROLOL TARTRATE 25 MG TAB PO SCH (15:32)
[2024-06-27] MEDS: COLCHICINE 0.6 MG EACH PO SCH (15:32)
[2024-06-27] MEDS: amLODIPine 5 MG TAB PO SCH (15:32)
--- NOTE | 2024-06-27 16:22 | P.CRDCN ---
History of Present Illness Consult date: 06/27/24 History of present illness: HISTORY OF PRESENT ILLNESS: This is a 44-year-old male patient of Dr. Hernandez with past medical history of CAD with known chronic total occlusion of the RCA and left circumflex and stenting of the LAD, severe ischemic cardiomyopathy status post AICD, hypertension, dyslipidemia, overweight, right below the knee amputation, issues in the past w ith noncompliance. Patient has had multiple hospitalizations and cardiac catheterizations/PCI since March 2024. He was recently discharged home 2 days ago. On last admission he had a PCI to mid LAD on 06/17/2024. Lexiscan from 06/23/2024 showed large infarct involving lateral half of the left ventricle mild inducible karthikeyan-infarct ischemia and noticed in anteroapical territory. LVEF 25% dilated LV. Admission ECG shows sinus rhythm with septal Q waves with ST depressions in inferolateral leads. BP 115/69, heart rate 88 bpm On admission he had elevation of troponin zyme to the uptrending pattern. Initial Trope 0.06, up trended to 0.1, 0.2. -Home cardiac medications: Aspirin 81 mg daily, atorvastatin 80 mg at bedtime, Jardiance 25 mg daily, Zetia 10 mg daily, Imdur 60 mg daily, Toprol XL 200 mg daily, Nitrostat, Ranexa 1000 mg twice daily, Xarelto 2.5 mg twice daily, Entresto 49-51 mg twice daily, Brilinta 90 mg twice daily, spironolactone 12.5 mg daily. Patient is also on Ozempic. -Cardiac catheterization performed 06/17/2024, PCI of mid LAD with 3.5 x 38 mm Xience. 04/08/2024 revealed patent stent in the mid and distal LAD and TRANSITION PROGRAM MANAGER of the RCA and TRANSITION PROGRAM MANAGER of the left circumflex. Subsequently, PTCA 04/10/2024 of both the PDA and PLV branches of the RCA was performed. 04/29/2024 cardiac catheterization finding patent stent in the mid and distal left anterior descending artery. Chronic total occlusion of the left circumflex. Intermediate to severe disease involving the mid RCA documented to be flow-limiting by Doppler wire and in the same setting, successful stenting of the mid RCA and PLB branch of the RCA. 05/12/2024 cardiac catheterization revealed patent stent to the LAD diagonal system. TRANSITION PROGRAM MANAGER of the left circumflex and left circumflex fills by collaterals. Severe in-stent restenosis involving the mid RCA with multiple layers of stent. Balloon angioplasty was performed with no stenting of the RCA. Mildly elevated left-sided filling pressure. Echocardiogram 05/10/2024 revealed EF of 35%, RVSP 38. Negative bubble study. No pericardial effusion. Lexiscan stress test performed on 05/20/2024 revealed a large area of previous inferior lateral wall infarct with findings compatible with inducible karthikeyan-infarct ischemia extending to involve the lateral wall. EF 22%. PHYSICAL EXAM: VITAL SIGNS: Reviewed. GENERAL: Well-developed in no acute distress. NECK: Supple. No JVD or thyromegaly LUNGS: Respirations even and unlabored. Lungs essentially clear to auscultation bilaterally. HEART: Regular rate and rhythm. S1 and S2 heard. EXTREMITIES: Normal range of motion. No clubbing or cyanosis. Right BKA. ASSESSMENT: NSTEMI Several hospitalizations for NSTEMI Severe CAD status post multiple PCI as above Dyslipidemia Diabetes mellitus type 2 Obesity with BMI of 36 Right below the knee amputation Ischemic cardiomyopathy with EF of 35% Status post AICD Hypertension PAD on Xarelto vascular dosing PLAN: Continue aspirin, Brilinta, Lipitor, colchicine Continue Entresto 24/26 mg twice daily, amlodipine 5 mg daily, Ranexa, metoprolol, Farxiga, Zetia and Imdur Plan for cardiac catheterization for staged PCI of diagonal artery with Dr. Orlando tomorrow Further recommendations to follow Past Medical History Past Medical History: Coronary Artery Disease (CAD), Chest Pain / Angina, Heart Failure, Diabetes Mellitus, Hyperlipidemia, Hypertension, Myocardial Infarction ([place]), Sleep Apnea/CPAP/BIPAP, Syncope Additional Past Medical History / Comment(s): AICD. IDDM type II. Neuropathy bilateral feet. 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 Migraines. Chronic back pain. R BKA (done 2023). Last Myocardial Infarction Date:: 2023 History of Any Multi-Drug Resistant Organisms: None Reported Past Surgical History: AICD, Heart Catheterization, Heart Catheterization With Stent, Orthopedic Surgery Additional Past Surgical History / Comment(s): 10/27/12 AICD, DFTs, PCI with 2 stents, R BKA. Past Anesthesia/Blood Transfusion Reactions: No Reported Reaction Date of Last Stent Placement:: 02/03/16 Type of Cardiac Device: AICD Device Placement Date:: 2012 Past Psychological History: Anxiety, Depression Smoking Status: Former smoker Past Alcohol Use History: None Reported Past Drug Use History: None Reported - Past Family History Mother Family Medical History: No Reported History Brother(s) Family Medical History: Myocardial Infarction ([place]) Father Family Medical History: Liver Disease Sister(s) Additional Family Medical History / Comment(s): Huntings disease Medications and Allergies Home Medications Medication Instructions Recorded Confirmed Type Aspirin 81 mg PO DAILY #30 07/15/21 06/26/24 Rx Nitroglycerin Sl Tabs [Nitrostat] 0.4 mg SUBLINGUAL Q5M PRN #30 tab 07/15/21 06/26/24 Rx Insulin NPH Hum/Reg Insulin Hm 60 unit SQ BID 12/07/21 06/26/24 History [humuLIN 70/30 Kwikpen] Ranolazine [Ranexa] 1,000 mg PO BID 03/11/24 06/26/24 History Semaglutide [Ozempic] 1 mg SQ TH 03/11/24 06/26/24 History Ezetimibe [Zetia] 10 mg PO DAILY #90 tab 04/11/24 06/26/24 Rx Mag Hydrox/Al Hydrox/Simeth 30 ml PO Q4HR PRN ml 04/11/24 06/26/24 Rx [Maalox] Colchicine [Colcrys] 0.6 mg PO DAILY #30 each 05/02/24 06/26/24 Rx Lidocaine 4% Patch 1 patch TRANSDERM DAILY 05/08/24 06/26/24 History Atorvastatin [Lipitor] 80 mg PO HS #30 tab 05/13/24 06/26/24 Rx Empagliflozin [Jardiance] 25 mg PO DAILY #30 tab 05/13/24 06/26/24 Rx Metoprolol Succinate [Toprol XL] 200 mg PO DAILY #30 tab 05/13/24 06/26/24 Rx Ticagrelor [Brilinta] 90 mg PO BID #60 tab 05/13/24 06/26/24 Rx Spironolactone [Aldactone] 25 mg PO DAILY #30 tablet 06/08/24 06/26/24 Rx Gabapentin [Neurontin] 300 mg PO TID 30 Days #90 cap 06/24/24 06/26/24 Rx Ipratropium-Albuterol Nebulize 3 ml INHALATION RT-TID 30 Days 06/24/24 06/26/24 Rx [Duoneb 0.5 mg-3 mg/3 ml Soln] #120 each Isosorbide Mononitrate ER [Imdur] 120 mg PO DAILY 30 Days #30 tab 06/24/24 06/26/24 Rx amLODIPine [Norvasc] 5 mg PO DAILY 30 Days #30 tab 06/24/24 06/26/24 Rx Sacubitril/Valsartan [Entresto 97 1 tab PO BID 06/26/24 06/26/24 History mg-103 mg Tablet] Allergies Allergy/AdvReac Type Severity Reaction Status Date / Time Penicillins Allergy Unknown Verified 06/26/24 16:18 Childhood Physical Exam Vitals: Vital Signs Temp Pulse Resp BP Pulse Ox 06/27/24 12:48 94 06/27/24 12:41 90 06/27/24 10:40 97.8 F 88 22 115/69 97 06/27/24 04:00 81 16 110/67 96 06/27/24 03:00 81 18 126/84 96 06/27/24 02:00 88 18 127/90 96 06/27/24 01:00 94 18 138/94 96 06/27/24 00:00 87 20 130/97 96 06/26/24 23:00 90 21 133/96 96 06/26/24 22:00 97 20 137/94 96 06/26/24 21:00 101 H 21 119/94 96 06/26/24 19:17 98 18 116/80 96 06/26/24 16:36 103 H 20 132/89 98 Intake and Output 06/27/24 06/27/24 06/27/24 06:59 14:59 22:59 Intake Total 74 165.638 Balance 74 165.638 Intake: Intake, IV Titration 74 165.638 Amount Heparin Sod,Pork in 0.45% 74 165.638 NaCl 25,000 unit In 0.45 % NaCl 1 250ml.bag @ 12 UNITS/KG/HR 15.241 mls/hr IV .[id number] [facility] Rx#: [id number] Results 06/26/24 14:30 06/26/24 14:30 Cardiac Enzymes 06/26/24 06/26/24 Range/Units 17:32 20:19 Troponin I 0.125 H* 0.213 H* (0.000-0.034) ng/mL Coagulation 06/27/24 06/27/24 06/27/24 Range/Units 01:26 09:33 15:05 APTT 25.3 29.7 33.0 H (22.0-30.0) sec Lipids 06/27/24 Range/Units 09:33 Triglycerides 295.00 H (0.00-149.00) mg/dL Cholesterol 141.00 (0.00-200.00) mg/dL HDL Cholesterol 34.40 L (40.00-60.00) mg/dL Cholesterol/HDL Ratio 4.10 Ratio Current Medications Generic Name Dose Route Start Last Admin Trade Name Freq PRN Reason Stop Dose Admin Acetaminophen 650 mg 06/27/24 10:56 Acetaminophen Tab 325 Mg Tab PO Q6HR PRN Fever and/ or Mild Pain Albuterol/Ipratropium 3 ml 06/27/24 12:00 06/27/24 12:38 Ipratropium-Albuterol 3 Ml Neb INHALATION 3 ml RT-QID KSENIA Administration Amlodipine Besylate 5 mg 06/27/24 15:15 06/27/24 15:32 Amlodipine 5 Mg Tab PO 5 mg DAILY KSENIA Administration Aspirin 81 mg 06/28/24 09:00 Aspirin 81 Mg PO DAILY [facility] Atorvastatin Calcium 80 mg 06/27/24 11:30 06/27/24 11:55 Atorvastatin 80 Mg Tab PO 80 mg DAILY KSENIA Administration Colchicine 0.6 mg 06/27/24 15:15 06/27/24 15:32 Colchicine 0.6 Mg Each PO 0.6 mg DAILY KSENIA Administration Ezetimibe 10 mg 06/27/24 11:30 06/27/24 11:56 Ezetimibe 10 Mg Tab PO 10 mg DAILY KSENIA Administration Heparin Sodium (Porcine) 0 unit 06/26/24 18:56 06/27/24 10:24 Heparin Sodium 1,000 Un/Ml (10ml Vl) IV 4,000 unit PER PROTOCOL PRN Administration Low PTT Protocol Heparin Sodium/Sodium Chloride 250 mls @ 15.241 mls/hr 06/26/24 19:00 06/27/24 13:51 25,000 unit/ Sodium Chloride IV 13.87 units/kg/hr .[id number] KSENIA 17.616 mls/hr Administration Protocol 12 UNITS/KG/HR Ceftriaxone Sodium 1 gm/ 50 mls @ 100 mls/hr 06/27/24 11:30 06/27/24 14:17 Sodium Chloride IVPB 100 mls/hr Q24HR KSENIA Administration Protocol Isosorbide Mononitrate 120 mg 06/27/24 11:30 06/27/24 11:55 Isosorbide Mononitrate Er 60 Mg Tab.Er.24h PO 120 mg DAILY KSENIA Administration Metoprolol Tartrate 25 mg 06/27/24 16:00 06/27/24 15:32 Metoprolol Tartrate 25 Mg Tab PO 25 mg TID KSENIA Administration Morphine Sulfate 2 mg 06/27/24 10:40 06/27/24 11:56 Morphine Sulfate 2 Mg/Ml Syringe IVP 2 mg Q4HR PRN Administration Pain/Discomfort Nitroglycerin 0.4 mg 06/26/24 16:02 06/26/24 16:36 Nitroglycerin Sl Tabs 0.4 Mg Tab SUBLINGUAL 0.4 mg Q5M PRN Administration Chest Pain Sacubitril/Valsartan 1 each 06/27/24 21:00 Sacubitril/Valsartan 24 Mg-26 Mg Tablet PO BID [facility] Intake and Output 06/27/24 06/27/24 06/27/24 06:59 14:59 22:59 Intake Total 74 165.638 Balance 74 165.638 Intake: Intake, IV Titration 74 165.638 Amount Heparin Sod,Pork in 0.45% 74 165.638 NaCl 25,000 unit In 0.45 % NaCl 1 250ml.bag @ 12 UNITS/KG/HR 15.241 mls/hr IV .[id number] [facility] Rx#: [id number] 06/26/24 14:30 06/26/24 14:30
[2024-06-27 18:24] LABS: Glucose,Whole Blood 205 mg/dL (70-110)
[2024-06-27 20:06] LABS: Glucose,Whole Blood 246 mg/dL (70-110)
[2024-06-27] MEDS: METOPROLOL TARTRATE 50 MG TAB PO SCH (20:58)
[2024-06-27] MEDS: SACUBITRIL/VALSARTAN 24 MG-26 MG TABLET PO SCH (20:58)
[2024-06-28 06:24] LABS: Glucose,Whole Blood 232 mg/dL (70-110)
[2024-06-28] MEDS: ASPIRIN 81 MG PO SCH (09:54)
[2024-06-28] MEDS: IV FLUID CONTINUATION 1,000 ML IV ONE (10:25)
[2024-06-28] MEDS: fentaNYL (PF) 50 MCG/ML 2 ML AMP IVP ONE (11:00)
[2024-06-28] MEDS: LIDOCAINE 1% INJ 10MG/ML (20 ML MDV) SQ ONE (11:00)
[2024-06-28] MEDS: MIDAZOLAM 2 MG/2 ML VIAL IVP ONE (11:07)
[2024-06-28] MEDS: HEPARIN SODIUM 1,000 UN/ML (10ML VL) IVP ONE (11:08)
[2024-06-28] MEDS: VERAPAMIL SYRINGE (5 MG/10 ML) INTRAARTER ONE (11:08)
--- NOTE | 2024-06-28 11:33 | P.PN ---
Subjective Progress Note Date: 06/28/24 Principal diagnosis: Non-STEMI Chest pain with elevated cardiac enzymes, patient has been continued on heparin drip and aspirin Facial cellulitis and cyst Diabetes mellitus with hyperglycemia uncontrolled Cardiomyopathy status post AICD Dyslipidemia Hypertension hypertensive cardiovascular disease Peripheral vascular disease June 28, 2024, patient seen evaluate examined care plan discussed with staff at length, patient on IV heparin being planned for cardiac catheter angiogram, facial CT scan noted to have ill-defined asymmetric soft tissue swelling adjacent to right nasal bone no discrete fluid collections noted patient remains on IV Rocephin tolerating well Patient sugar continues to run high, has been resumed on 7 the 30 in mid 200 range June 27, 2024, patient seen eval examined during rounds labs reviewed medications and care plan discussed, care plan discussed with RN at length as well, patient has been pain-free however this morning started having substernal chest pain with radiation to the left neck and shoulder. Patient remains on IV heparin and aspirin, hemodynamic status stable, patient has been asking for morphine as well. Noted there is order for nitro we will use nitro if pain is still present then use Tylenol and/or or morphine. Patient remains on heparin dose is being adjusted, also noted nodular inflammatory changes on the right side of the nose size of a grape with mild tenderness will obtain CT scan of the chest patient will be started on IV Rocephin. Home medications reviewed, will resume insulin 7330 60 units twice daily, Zetia 10 mg daily DuoNeb nebulization treatment, Lipitor 80 mg daily, metoprolol will start with low-dose 25 mg 3 times a day and Imdur 120 mg daily awaiting further recommendation from cardiovascular services 44-year-old male with history of coronary artery disease and multiple stent placement, came into the hospital with sudden onset of chest pain substernal with radiation to the right shoulder associated with nausea and vomiting, currently at the time of evaluation patient is asymptomatic, denies any cough or sputum production denies any dizziness lightheadedness, denies any nausea vomiting abdominal pain currently past medical history significant for diabetes mellitus, peripheral vascular disease status post BKA over nonhealing wounds, dyslipidemia, sleep disordered breathing and sleep apnea, syncope history of cardiomyopathy status post AICD Labs reviewed WBC count 8.9 hemoglobin hematocrit 14/47 platelet count 2 54,000, troponin is slightly elevated 0.068 then subsequent second was 0.125, sodium 134 potassium 4.2 BUN/creatinine 23/1.04 LFTs within normal limit, chest x-ray no acute cardiopulmonary process seen, ECG sinus tachycardia, interventricular c onduction delay Objective - Vital Signs Vital signs: Vital Signs Temp 97.5 F L 06/28/24 09:50 Pulse 80 06/28/24 09:50 Resp 16 06/28/24 09:50 BP 113/71 06/28/24 09:50 Pulse Ox 97 06/28/24 09:50 FiO2 Intake & Output 06/27/24 06/28/24 06/28/24 17:59 06:59 18:59 Intake Total Balance Weight Intake: Intake, IV Titration Amount Heparin Sod,Pork in 0.45% NaCl 25,000 unit In 0.45 % NaCl 1 250ml.bag @ 12 UNITS/KG/HR 15.241 mls/hr IV .[id number] [facility] Rx#: [id number] - Exam - Constitutional General appearance: average body habitus, cooperative, disheveled - EENT Eyes: EOMI, PERRLA ENT: normal oropharynx Ears: bilateral: normal Face: Over the right side paranasal area size of grapelike localized cellulitis with mild tenderness noted - Neck Neck: normal ROM Carotids: bilateral: upstroke normal Thyroid: bilateral: normal size - Respiratory Respiratory: bilateral: CTA - Cardiovascular Rhythm: regular Heart sounds: normal: S1, S2 - Gastrointestinal General gastrointestinal: hyperactive bowel sounds, soft - Integumentary Integumentary: normal turgor - Neurologic Neurologic: CNII-XII intact - Musculoskeletal Musculoskeletal: gait normal, generalized weakness, strength equal bilaterally - Psychiatric Psychiatric: A&O x's 3, appropriate affect, intact judgment & insight - Labs CBC & Chem 7: 06/26/24 14:30 06/26/24 14:30 Labs: Abnormal Lab Results - Last 24 Hours (Table) 06/27/24 06/27/24 06/27/24 Range/Units 09:33 15:05 18:22 APTT 33.0 H (22.0-30.0) sec POC Glucose (mg/dL) 205 H (70-110) mg/dL Triglycerides 295.00 H (0.00-149.00) mg/dL VLDL Cholesterol, Calc 59.00 H (5.00-40.00) mg/dL HDL Cholesterol 34.40 L (40.00-60.00) mg/dL 06/27/24 06/27/24 06/28/24 Range/Units 20:04 23:58 06:21 APTT 48.7 H (22.0-30.0) sec POC Glucose (mg/dL) 246 H 232 H (70-110) mg/dL Triglycerides (0.00-149.00) mg/dL VLDL Cholesterol, Calc (5.00-40.00) mg/dL HDL Cholesterol (40.00-60.00) mg/dL Assessment and Plan Assessment: Non-STEMI Chest pain with elevated cardiac enzymes, patient has been continued on heparin drip and aspirin,, Patient is being planned for cardiac cath angiogram Facial cellulitis and cyst Diabetes mellitus with hyperglycemia uncontrolled Cardiomyopathy status post AICD Dyslipidemia Hypertension hypertensive cardiovascular disease Peripheral vascular disease Plan: IV heparin CT facial bone, Reviewed with finding as above will continue antibiotic follow closely Cardiac cath angiogram later on today Resume high intensity statins 70/30 60 units twice daily DuoNeb Nitrites and beta-blockade Aspirin Continue home medicines including sliding scale insulin short and long-acting insulin Consult cardiology pending Time with Patient: Greater than 30
[2024-06-28] MEDS: IOPAMIDOL-370 100ML BTL INJ ONE ×2 (12:00)
[2024-06-28] MEDS: TIROFIBAN 12.5MG-250ML NS 250 ML IV ONE (12:21)
[2024-06-28] MEDS ORDERED: MAG HYDROX/AL HYDROX/SIMETH 30 ML CUP PO PRN (12:23)
[2024-06-28] MEDS ORDERED: NITROGLYCERIN SL TABS 0.4 MG TAB SUBLINGUAL PRN (12:23)
[2024-06-28] MEDS ORDERED: ZOLPIDEM 5 MG TAB PO PRN (12:23)
[2024-06-28] MEDS ORDERED: ATROPINE SULFATE 0.1 MG/ML 10ML SYRINGE IV PRN (12:23)
[2024-06-28] MEDS ORDERED: RX INFO: IV CONTRAST WAS GIVEN 1 EACH MISC MISCELLANE PRN (12:23)
--- NOTE | 2024-06-28 12:31 | P.PCN ---
Date of Procedure: 06/28/24 Operative Findings: PERCUTANEOUS CORONARY INTERVENTION Performing physician Damion Hernandez M.D. Procedure Performed: 1. Successful PTCA of the first diagonal branch with adjunctive PTCA of the LAD in a kissing technique 2. Left coronary angiogram 3. Adjunctive use of IVUS 4. Ultrasound-guided access of the right radial artery Indication: Chest discomfort concerning for angina for this 44-year-old gentleman who continues to have multiple hospital admission with a chest discomfort/angina in spite of optimize medical treatment and being on all anti-ischemic medications. He is known to have severe disease involving the ostial of medium size diagonal branch. Approach: Right radial artery Complications: None Level of Sedation: Moderate with a sedation length of 67 minutes Procedure Discussion: After obtaining informed consent the patient was brought to the cardiac Inorganic Chemistry Teacher. The right radial artery was cannulated using micropuncture technique under ultrasound guidance the micropuncture wire passed easily then I placed a 6 Frisian 11 cm sheath at the right radial artery. Anticoagulation was initiated using heparin with continuous ACT monitoring. Subsequently I did engage the left main using a CLS 3.5 guiding catheter. I did wire the LAD using a run- through wire. Attempting wiring the first diagonal branch of the LAD using a whisper wire initially was unsuccessful but after that it was successful. I attempted wiring the LAD using a Choice PT wire with adjunctive use of super cross catheter. Attempting wiring the branch again using a whisper wire balloon was successful and the wire was advanced to the distal diagonal branch. I did initially balloon angioplasty using 1.0 mm balloon with prolonged inflation and subsequently 2 mm semicompliant balloon with also prolonged inflation. I did IVUS of the LAD and that showed possible struts in the LAD by the takeoff of the diagonal branch. An angiogram also showed haziness by the takeoff of the diagonal branch and at that point I decided to do kissing balloon angioplasty of the LAD diagonal branch. Please note that the LAD is stented by that segment. I did kissing balloon angioplasty of both the diagonal and LAD using 2.25 mm balloon for the diagonal branch and 3.0 mm balloon for the LAD. An angiogram was taken after that showed good angiographic results and improvement in the haziness involving the LAD was KUMAR-3 flow in both the LAD and diagonal branch and at that point I decided to stop. The procedure was completed with no complication Postprocedure Management: 1. Dual antiplatelet therapy 2. I gave the patient double bolus of to be 38 3. Continue maximize medical treatment and follow-up with the patient
[2024-06-28 12:52] LABS: Glucose,Whole Blood 185 mg/dL (70-110)
--- NOTE | 2024-06-28 13:19 | CT ---
EXAMINATION TYPE: CT brain wo con DATE OF EXAM: 06/28/2024 COMPARISON: 06/13/2024 CLINICAL INDICATION: Male, 44 years old with history of r/o stroke; [facility], R/O Stroke CT DLP: 1187.4 mGycm Automated exposure control for dose reduction was used. Findings: The ventricles, basal cisterns and sulci over the convexities are within normal limits and there is n o mass effect or shift of midline structures. No abnormal density is seen throughout the brain parenchyma and there is no acute intra or extra-axia l hemorrhage. The posterior fossa including the brainstem, fourth ventricle and cerebellar pontine angles appear no rmal. Intraorbital contents appear normal and symmetric. Visualized paranasal sinuses and mastoid air cells are well aerated. The calvarium is intact. IMPRESSION: No significant abnormality seen. There is no acute bleed or mass effect. [facility], , 06/28/2024 1:16 PM
--- NOTE | 2024-06-28 14:41 | P.CNNES ---
History of Present Illness Consult date: 06/28/24 Requesting physician: Tyler Doan Reason for Consult: code stroke History of Present Illness: This is a 44-year-old gentleman who presented emergency department on 06/26/2024 for chest pain. It seems the patient has significant cardiac issues and he has a history of coronary artery disease status post stent, congestive heart failure, diabetes mellitus, hypertension, TIA, hypercholesteremia, hypertension. Today patient had cardiac cath performed by Dr. Hernandez. It is reported he had successful PTCA of the first diagonal branch with adjunctive PTCA of the LAD. He had a left coronary angiogram. During this hospital visit the patient was getting heparin drip. During the procedure patient received Tirofiban and received heparin drip. When the patient came to the floors at 12:40 PM today the according to the nurse he had no complaints but at 12:50 PM so after 10 minutes he was complaining of right visual loss and had right upper extremity weakness. As a result a code stroke was activated. According to the nurse the stroke interventional (Dr. Doan) commended no IV thrombolytic since the patient received heparin drip and received Tirofiban. And I was contacted by employment educational coord, Dr. Orlando who stated that he spoke with the stroke attending and he feels there is benefit of IV thrombolytic especially those medication are short half life. Then I called Dr. Doan and he stated to obtain PTT, PT, INR and if they are normal then proceed with IV thromoblytics. Home patient is on aspirin 81 mg daily as well as Lipitor 80 mg daily and Brilinta 90 mg twice daily Some of the work-up during this hospital visit consisted of: Most recent PTT was last night and it was 48.7. Troponin most recent 1 was 0.213 Lipid panel is triglyceride is 295, cholesterol is 141, LDL is 47 and HDL is 34. CT of the head is reported as no significant abnormality seen. There is no acute bleed or mass effect. I personally reviewed the CT and I agree there is no acute or subacute process. Review of Systems As per HPI. Past Medical History Past Medical History: Coronary Artery Disease (CAD), Chest Pain / Angina, Heart Failure, Diabetes Mellitus, Hyperlipidemia, Hypertension, Myocardial Infarction (RI), Sleep Apnea/CPAP/BIPAP, Syncope Additional Past Medical History / Comment(s): AICD. IDDM type II. Neuropathy bilateral feet. 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 Migraines. Chronic back pain. R BKA (done 2023). Last Myocardial Infarction Date:: 2023 History of Any Multi-Drug Resistant Organisms: None Reported Past Surgical History: AICD, Heart Catheterization, Heart Catheterization With Stent, Orthopedic Surgery Additional Past Surgical History / Comment(s): 10/27/12 AICD, DFTs, PCI with 2 stents, R BKA. Past Anesthesia/Blood Transfusion Reactions: No Reported Reaction Date of Last Stent Placement:: 06/28/2024 Type of Cardiac Device: AICD Device Placement Date:: 2012 Smoking Status: Former smoker - Past Family History Mother Family Medical History: No Reported History Brother(s) Family Medical History: Myocardial Infarction (RI) Father Family Medical History: Liver Disease Sister(s) Additional Family Medical History / Comment(s): Huntings disease Medications and Allergies Home Medications Medication Instructions Recorded Confirmed Type Aspirin 81 mg PO DAILY #30 07/15/21 06/26/24 Rx Nitroglycerin Sl Tabs [Nitrostat] 0.4 mg SUBLINGUAL Q5M PRN #30 tab 07/15/21 06/26/24 Rx Insulin NPH Hum/Reg Insulin Hm 60 unit SQ BID 12/07/21 06/26/24 History [humuLIN 70/30 Kwikpen] Ranolazine [Ranexa] 1,000 mg PO BID 03/11/24 06/26/24 History Semaglutide [Ozempic] 1 mg SQ TH 03/11/24 06/26/24 History Ezetimibe [Zetia] 10 mg PO DAILY #90 tab 04/11/24 06/26/24 Rx Mag Hydrox/Al Hydrox/Simeth 30 ml PO Q4HR PRN ml 04/11/24 06/26/24 Rx [Maalox] Colchicine [Colcrys] 0.6 mg PO DAILY #30 each 05/02/24 06/26/24 Rx Lidocaine 4% Patch 1 patch TRANSDERM DAILY 05/08/24 06/26/24 History Atorvastatin [Lipitor] 80 mg PO HS #30 tab 05/13/24 06/26/24 Rx Empagliflozin [Jardiance] 25 mg PO DAILY #30 tab 05/13/24 06/26/24 Rx Metoprolol Succinate [Toprol XL] 200 mg PO DAILY #30 tab 05/13/24 06/26/24 Rx Ticagrelor [Brilinta] 90 mg PO BID #60 tab 05/13/24 06/26/24 Rx Spironolactone [Aldactone] 25 mg PO DAILY #30 tablet 06/08/24 06/26/24 Rx Gabapentin [Neurontin] 300 mg PO TID 30 Days #90 cap 06/24/24 06/26/24 Rx Ipratropium-Albuterol Nebulize 3 ml INHALATION RT-TID 30 Days 06/24/24 06/26/24 Rx [Duoneb 0.5 mg-3 mg/3 ml Soln] #120 each Isosorbide Mononitrate ER [Imdur] 120 mg PO DAILY 30 Days #30 tab 06/24/24 06/26/24 Rx amLODIPine [Norvasc] 5 mg PO DAILY 30 Days #30 tab 06/24/24 06/26/24 Rx Sacubitril/Valsartan [Entresto 97 1 tab PO BID 06/26/24 06/26/24 History mg-103 mg Tablet] Allergies Allergy/AdvReac Type Severity Reaction Status Date / Time Penicillins Allergy Unknown Verified 06/26/24 16:18 Childhood Physical Examination - Vital Signs Vital Signs: Vital Signs Temp Pulse Pulse Pulse Resp BP BP 06/28/24 09:50 97.5 F L 80 16 113/71 06/28/24 08:19 84 06/28/24 08:09 78 06/28/24 03:57 80 14 116/69 06/28/24 03:00 76 14 06/28/24 00:00 80 16 122/68 06/27/24 20:00 98.0 F 76 14 116/72 06/27/24 18:10 98.1 F 100 16 122/86 06/27/24 17:40 87 16 139/86 06/27/24 16:35 92 06/27/24 16:26 96 Pulse Ox 06/28/24 09:50 97 06/28/24 08:19 06/28/24 08:09 06/28/24 03:57 96 06/28/24 03:00 06/28/24 00:00 98 06/27/24 20:00 98 06/27/24 18:10 98 06/27/24 17:40 96 06/27/24 16:35 06/27/24 16:26 Intake and Output 06/27/24 06/28/24 06/28/24 21:59 06:59 14:59 Intake Total 266 Balance 266 Intake: IV 266 Intake, IV Titration Amount Heparin Sod,Pork in 0.45% NaCl 25,000 unit In 0.45 % NaCl 1 250ml.bag @ 12 UNITS/KG/HR 15.241 mls/hr IV .[id number] [facility] Rx#: [id number] Other: Weight GENERAL: The patient is lying in bed and is not in acute distress. NEUROLOGICAL: Higher mental function: The patient is awake, alert, oriented to self, place and time. Patient is following commands. No aphasia and no neglect. Cranial nerves: The pupils are round, equal and reactive to light and accommodation. Visual hauser are right homonymous upper quandrant anopsia to confrontation throughout. Extraocular movement is intact no nystagmus is noted. Facial sensation is normal to touch throughout. The facial strength is normal throughout. Hearing is normal bilaterally to hand rub. Tongue is midline and moved [id number] without any difficulty. No dysarthria is noted. Shoulder shrug is normal bilaterally. Motor: The strength is right upper extremity is drift that is mild. Right upper extremity is 4+. Otherwise 5 over 5 throughout. Has below the right knee amputation. Normal tone and bulk. Cerebellum: Slight ataxia with finger to nose on the right. Otherwise normal finger to nose on left. Sensation: Sensation is normal to touch throughout. Reflexes (right/left):1+ throughout. Plantars is mute on the left. Has below the right knee amputation. Results - Laboratory Findings CBC and BMP: 06/26/24 14:30 06/26/24 14:30 Abnormal Lab Findings: Abnormal Labs 06/26/24 06/26/24 06/26/24 14:30 14:30 14:30 RBC 6.21 H MCV 76.9 L MCH 23.5 L MCHC 30.5 L RDW 16.2 H APTT Sodium 134 L BUN 23 H Glucose 425 H POC Glucose (mg/dL) Troponin I 0.068 H* Triglycerides VLDL Cholesterol, Calc HDL Cholesterol 06/26/24 06/26/24 06/27/24 17:32 20:19 09:33 RBC MCV MCH MCHC RDW APTT Sodium BUN Glucose POC Glucose (mg/dL) Troponin I 0.125 H* 0.213 H* Triglycerides 295.00 H VLDL Cholesterol, Calc 59.00 H HDL Cholesterol 34.40 L 06/27/24 06/27/24 06/27/24 15:05 18:22 20:04 RBC MCV MCH MCHC RDW APTT 33.0 H Sodium BUN Glucose POC Glucose (mg/dL) 205 H 246 H Troponin I Triglycerides VLDL Cholesterol, Calc HDL Cholesterol 06/27/24 06/28/24 06/28/24 23:58 06:21 12:50 RBC MCV MCH MCHC RDW APTT 48.7 H Sodium BUN Glucose POC Glucose (mg/dL) 232 H 185 H Troponin I Triglycerides VLDL Cholesterol, Calc HDL Cholesterol Assessment and Plan Assessment: This is a 44-year-old gentleman with significant cardiac issues who presents to the emergency department on 06/26/2024 for chest pain. Today he had cardiac cath and after the procedure when he got to the floors around 10 minutes later he had right vision loss on right arm was weak. Symptoms onset today at 12:50pm and last normal was 12:40pm today. Code stroke was activated and initially the stroke interventionalists recommended no IV thrombolytics since the patient received heparin drip as well as received Tirofiban. But then later Dr. David liz ajit with the stroke interventionalists and he felt he will benefit since has short half life. Acute ischemic stroke. Patient has right upper quadrant visual defect, right upper extremity weakness and ataxia. NIH of 3. Acute chest pain status post PTCA of diagonal branch as well as LAD on 2024 Underlying history of coronary artery disease status post stent Diabetes mellitus Hypertension Hypercholesteremia History of TIA History of right below the knee amputation Plan: I spoke with Dr. Doan, stroke attending and he stated that to pursue with PT/PTT and INR and if they are normal then to pursue with IV thrombolytic Avoid any antiplatelet or anticoagulation if patient does receive IV thrombolytic. I spoke with the patient and the he did agree with pursuing IV thrombolytic if his labs were normal It the patient does receive IV TNK, then the patient needs to be in the ICU with neurochecks as well as blood pressure per IV thrombolytic protocol I ordered a carotid duplex and MRI of the brain Consulted PT and OT Will defer the rest of the medical management to primary and other specialist For DVT prophylaxis use SCDs for now The plan discussed with the patient and his nurse in details. Thank you for the consultation Time with Patient: Greater than 30
[2024-06-28] MEDS: INSULIN NPH 100 UNIT/ML 10 ML VIAL SQ SCH (15:05)
[2024-06-28] MEDS: SODIUM CHLORIDE 0.9% 1,000 ML in EMPTY BAG 1 BAG IV SCH (15:08)
[2024-06-28 15:18] LABS: INR 0.9 (<1.2); Partial Thromboplastin Time 27.9 sec (22.0-30.0); Prothrombin Time 10.3 sec (10.0-12.5)
[2024-06-28 16:06] LABS: Glucose,Whole Blood 237 mg/dL (70-110)
[2024-06-28] MEDS: T.ENECTEPLASE 5 MG/ML VIAL IVP ONE (16:16)
[2024-06-28] MEDS: ONDANSETRON 4 MG/2 ML VIAL IVP PRN (16:59)
--- NOTE | 2024-06-28 18:21 | CT ---
EXAMINATION TYPE: CT brain wo con DATE OF EXAM: 06/28/2024 6:01 PM COMPARISON: Multiple prior CT brain studies, most recently dated 06/28/2024. CLINICAL INDICATION: Male, 44 years old with history of headache post TNK admin, Nausea and vomiting post clinical laboratory manager procedure, TNK admin approx x 90 minutes ago TECHNIQUE: Brain: Axial CT images of the brain were obtained with coronal and sagittal reformats created and rev iewed. Contrast used: None. Oral contrast used: None. CT DLP: 1144.4 mGycm, Automated exposure control for dose reduction was used. FINDINGS: Brain: Extra-axial spaces: No abnormal extra-axial fluid collections. Ventricular system: Within normal limits Cerebral parenchyma: No acute intraparenchymal hemorrhage or mass effect. The conteh-white junction is well differentiated. Cerebellum: Unremarkable. Mass effect: No evidence of midline shift. Intracranial vasculature: unremarkable Soft tissues: Normal. Calvarium/osseous structures: No depressed skull fracture. Paranasal sinuses and mastoid air cells: Mild scattered paranasal sinus disease. Visualized orbits: Orbital contents are intact. IMPRESSION: No acute intracranial process. [facility], , 06/28/2024 6:19 PM
[2024-06-28] MEDS: ACETAMINOPHEN TAB 325 MG TAB PO PRN (18:24)
[2024-06-28 20:00] LABS: Glucose,Whole Blood 205 mg/dL (70-110)
[2024-06-29 06:06] LABS: African American GFR (CKD) >90 (>60 ml/min/1.73 sqM); Non-African American GFR(CKD) >90 (>60 ml/min/1.73 sqM)
[2024-06-29 06:16] LABS: Glucose,Whole Blood 197 mg/dL (70-110)
--- NOTE | 2024-06-29 08:14 | US ---
EXAMINATION TYPE: US carotid duplex BILAT DATE OF EXAM: 06/29/2024 Exam done portable COMPARISON: US 2024 CLINICAL INDICATION: Male, 44 years old with history of stroke; TECHNIQUE: Grayscale, color Doppler and spectral Doppler evaluation of the bilateral carotid systems and vertebral arteries. Indirect Doppler criteria was utilized. FINDINGS: EXAM MEASUREMENTS: RIGHT: Peak Systolic Velocity (PSV) cm/sec ----- Right CCA: 75.4 ----- Right ICA: 62.9 ----- Right ECA: 96.6 ICA/CCA ratio: 0.8 RIGHT: End Diastole cm/sec ----- Right CCA: 22.6 ----- Right ICA: 26.4 ----- Right ECA: 18.7 LEFT: Peak Systolic Velocity (PSV) cm/sec ----- Left CCA: 82.0 ----- Left ICA: 68.8 ----- Left ECA: 77.6 ICA/CCA ratio: 0.8 LEFT: End Diastole cm/sec ----- Left CCA: 24.8 ----- Left ICA: 27.0 ----- Left ECA: 13.8 VERTEBRALS (direction of flow): Right Vertebral: Antegrade Left Vertebral: Antegrade Rhythm: Normal IMPRESSION: Right: No hemodynamically significant stenosis. Left: No hemodynamically significant stenosis. Criteria for Assigning % of Stenosis / Diameter reduction (Estimation based on the indirect measurements of the internal carotid artery velocities (ICA PSV). 1. Normal (no stenosis)=ICA PSV < 125 cm/s: ratio < 2.0: ICA EDV<40 cm/s. 2. Less than 50% stenosis=ICA PSV < 125 cm/s: ratio < 2.0: ICA EDV<40 cm/s. 3. 50 to 69% stenosis=ICA PSV of 125 to 230 cm/s: ration 2.0 ? 4.0: ICA EDV 40-100 cm/s. 4. Greater than 70% stenosis to near occlusion= ICA PSV > 230 cm/s: ratio > 4.0: ICA EDV > 100 cm/s. 5. Near occlusion= ICA PSV velocities may be low or undetectable: variable ratio and ICA EDV. 6. Total occlusion=unable to detect flow. [facility], , 06/29/2024 8:12 AM
[2024-06-29 09:35] VITALS: BMI 37.2
[2024-06-29 11:23] LABS: Glucose,Whole Blood 206 mg/dL (70-110)
--- NOTE | 2024-06-29 11:44 | PN ---
PROGRESS NOTE SUBJECTIVE: This is a 44-year-old gentleman with coronary artery disease, status post multiple prior interventions, who underwent cardiac catheterization and angioplasty of the first diagonal branch, and subsequently, had a stroke and received thrombolytics with resolution of his neurological symptoms. This morning, the patient is awake, alert, and free of neurological symptoms. He has chronic chest pain. A carotid duplex study did not reveal significant carotid stenosis. PHYSICAL EXAMINATION: VITAL SIGNS: On exam, heart rate is 73 beats per minute. Blood pressure is 123/75, respiratory rate of 18, O2 saturation is 97%. NECK: There is no jugular venous distention. Carotid upstroke is normal. There is no bruit. CHEST EXAM: Reveals good air entry bilaterally. HEART: Reveals first and second heart sounds. No gallop. No murmur. ABDOMEN: Soft, nontender. EXTREMITIES: Did not reveal any edema. Peripheral pulses are felt. ASSESSMENT: 1. Coronary artery disease, status post multiple prior interventions with most recent angioplasty of the diagonal branch. 2. Ischemic cardiomyopathy, status post AICD. 3. History of cerebrovascular accident postprocedure, status post thrombolytics. PLAN: I will continue the patient on his current medications including Norvasc, Lipitor, Zetia, insulin, Imdur, Lopressor. MMODL / IJN: [id number] /
--- NOTE | 2024-06-29 13:05 | P.PN ---
Subjective Progress Note Date: 06/29/24 I am following up with the patient. It seems that yesterday's PT, PTT INR was back to normal and as a result TNK was given. Today patient feels he is doing better overall compared to yesterday. Yesterday shortly after that he acute patient became bruising got a repeat CT of the head which was unremarkable. Stated earlier today patient feels drastically better. Denies any neurological issues. Objective - Vital Signs Vital signs: Vital Signs Temp 98 F 06/29/24 12:00 Pulse 82 06/29/24 12:30 Resp 12 06/29/24 12:30 BP 128/77 06/29/24 12:30 Pulse Ox 96 06/29/24 12:30 FiO2 Intake & Output 06/28/24 06/29/24 06/29/24 18:59 06:59 18:59 Intake Total 671 900 545 Output Total 0 1550 0 Balance 671 -650 545 Weight 124.4 kg 124.4 kg Intake: IV 266 350 Sodium Chloride 0.9% 1, 300 000 ml In Empty Bag 1 bag @ 75 mls/hr IV .[id number] [facility] Rx#:[id number] cefTRIAXone 1 gm In 50 Sodium Chloride 0.9% 50 ml @ 100 mls/hr IVPB Q24HR [facility] Rx#:[id number] Intake, IV Titration 225 900 75 Amount Sodium Chloride 0.9% 1, 225 900 75 000 ml In Empty Bag 1 bag @ 75 mls/hr IV .[id number] [facility] Rx#:[id number] Oral 180 120 Output: Urine 0 1550 0 Other: # Voids 1 0 - Exam GENERAL: The patient is lying in bed and is not in acute distress. NEUROLOGICAL: Higher mental function: The patient is awake, alert, oriented to self, place and time. Patient is following commands. No aphasia and no neglect. Cranial nerves: The pupils are round, equal and reactive to light and accommodation. Visual hauser are right homonymous upper quandrant anopsia to confrontation throughout. Extraocular movement is intact no nystagmus is noted. Facial sensation is normal to touch throughout. The facial strength is normal throughout. Hearing is normal bilaterally to hand rub. Tongue is midline and moved [id number] without any difficulty. No dysarthria is noted. Shoulder shrug is normal bilaterally. Motor: The strength is right 5 over 5 throughout. Has below the right knee amputation. Normal tone and bulk. Cerebellum: Normal finger to nose bilaterally. Sensation: Sensation is normal to touch throughout. Reflexes (right/left):1+ throughout. Plantars is mute on the left. Has below the right knee amputation. Some of the work-up during this hospital visit consisted of: Troponin most recent 1 was 0.213 Lipid panel is triglyceride is 295, cholesterol is 141, LDL is 47 and HDL is 34. CT of the head is reported as no significant abnormality seen. There is no acute bleed or mass effect. I personally reviewed the CT and I agree there is no acute or subacute process. Repeat CT of the head is reported as no acute intracranial process. Carotid duplex is reported as no hemodynamically significant stenosis. - Labs CBC & Chem 7: 06/26/24 14:30 06/29/24 05:26 Labs: Abnormal Lab Results - Last 24 Hours (Table) 06/28/24 06/28/24 06/29/24 Range/Units 16:05 19:59 06:14 POC Glucose (mg/dL) 237 H 205 H 197 H (70-110) mg/dL 06/29/24 Range/Units 11:22 POC Glucose (mg/dL) 206 H (70-110) mg/dL Microbiology - Last 24 Hours (Table) 06/27/24 12:24 Blood Culture - Preliminary Blood Assessment and Plan Assessment: This is a 44-year-old gentleman with significant cardiac issues who presents to the emergency department on 06/26/2024 for chest pain. Today he had cardiac cath and after the procedure when he got to the floors around 10 minutes later he had right vision loss on right arm was weak. Symptoms onset today at 12:50pm and last normal was 12:40pm today. Code stroke was activated and initially the stroke interventionalists recommended no IV thrombolytics since the patient received heparin drip as well as received Tirofiban. But then later Dr. Hernandez spoke with the stroke interventionalists and he felt he will benefit since has short half life. As a result patient repeat PT/PTT/INR were normal and received IV TNK on 06/28/24. Acute ischemic stroke Post IV TNK. Patient has right upper quadrant visual defect, right upper extremity weakness and ataxia with NIH of 3-->1 (right upper quadrant field cut). Acute chest pain status post PTCA of diagonal branch as well as LAD on 06/28/2024 Underlying history of coronary artery disease status post stent Diabetes mellitus Hypertension Hypercholesteremia History of TIA History of right below the knee amputation Plan: The patient received aspirin 81 mg early in the morning and I discontinue it. Please avoid any antiplatelet or anticoagulation until 24-hour post IV thrombolytic and to obtain CT of the head first and if it is negative for any bleed then recommend antiplatelet and will defer what antiplatelet need to the cardiology team. Repeat CT of the head 24 hours post IV TNK. Patient states she cannot have MRI of the brain since he has a defibrillator. Continue neurochecks per IV TNK protocol Recommend blood pressure control per IV TNK protocol next PT and OT are consulted Will defer the rest of the medical management to primary and other specialist For DVT prophylaxis use SCDs for now The plan discussed with the patient and his nurse in details. Time with Patient: Less than 30
--- NOTE | 2024-06-29 16:19 | CT ---
EXAMINATION TYPE: CT brain wo con CT DLP: 1171.4 mGycm, Automated exposure control for dose reduction was used. DATE OF EXAM: 06/29/2024 4:10 PM COMPARISON: CT brains 06/28/2024, 05/11/2024, 05/09/2024. CLINICAL INDICATION:Male, 44 years old with history of 24 hours post IV TNK, 24 hours post IV TNK. TECHNIQUE: Brain: Multiple axial CT images of the brain were obtained without IV contrast. . Coronal and sagitta l reformats reviewed. FINDINGS: Brain: Extra-axial spaces: No abnormal extra-axial fluid collections. Ventricular system: Within normal limits Cerebral parenchyma: No acute intraparenchymal hemorrhage or mass effect. The conteh-white junction is well differentiated. Cerebellum: Unremarkable. Mass effect: No evidence of midline shift. Intracranial vasculature: unremarkable Soft tissues: Normal. Calvarium/osseous structures: No depressed skull fracture. Paranasal sinuses and mastoid air cells: Mild scattered paranasal sinus disease. Visualized orbits: Orbital contents are intact. IMPRESSION: No acute intracranial process. No evidence of intracranial hemorrhage. [facility], , 06/29/2024 4:17 PM
[2024-06-29 16:34] LABS: Glucose,Whole Blood 233 mg/dL (70-110)
[2024-06-29] MEDS ORDERED: DEXTROSE 50% SYRINGE 50 ML IVP PRN (16:52)
[2024-06-29] MEDS: INSULIN LISPRO (HumaLOG) 100 UNIT/ML 10 mL VL SQ SCH (17:13)
[2024-06-29 20:44] LABS: Glucose,Whole Blood 195 mg/dL (70-110)
[2024-06-29] MEDS: TICAGRELOR 90 MG TAB PO SCH (21:47)
--- NOTE | 2024-06-30 | PN ---
PROGRESS NOTE A 44-year-old white male with coronary artery disease status post multiple heart stents placed, one on last admission, one on this admission. He had 1 when possibly a stroke with thrombolytics given after which resolution of all of symptoms a day ago. He is much cleared of neurologic symptoms today, chronic chest pain, shortness of breath. Vitals are negative. PHYSICAL EXAMINATION: VITAL SIGNS: Heart rate is 73. O2 is low at 90s on room air, blood pressure 123/75, respiratory rate is 16 to 18. CARDIOVASCULAR: S1 and S2. LUNGS: Decreased breath sounds x4. EXTREMITIES: BKA of the right leg. He is status post multiple stents, ischemic cardiomyopathy, CVA accident postprocedure with negative brain CT. Prognosis guarded. Risk factor modification. Please see further orders. MMODL / IJN: [id number] /
[2024-06-30 06:29] LABS: Glucose,Whole Blood 109 mg/dL (70-110)
[2024-06-30] MEDS: ASPIRIN 81 MG PO SCH (09:04)
--- NOTE | 2024-06-30 11:02 | PN ---
PROGRESS NOTE SUBJECTIVE: Shaun is a 44-year-old gentleman with coronary artery disease, status post multiple prior angioplasties, who had a stroke and received thrombolytics following coronary intervention on this admission. He is awake and alert and neuro deficits have resolved. He has his usual atypical chest pain. PHYSICAL EXAMINATION: GENERAL: The patient is comfortable at rest. VITAL SIGNS: Stable. CHEST: Reveals good air entry bilaterally. HEART: Reveals first and second heart sounds. No gallop. EXTREMITIES: Did not reveal any edema. Peripheral pulses are felt. LABORATORY DATA: Labs showed a creatinine of 0.8 yesterday and his last hemoglobin was 14.6 on the . CURRENT MEDICATIONS: Include: 1. Norvasc 5 daily. 2. Aspirin. 3. Lipitor. 4. Zetia. 5. Insulin. 6. Imdur. 7. Lopressor. 8. Brilinta. ASSESSMENT: 1. Coronary artery disease, status post multiple prior angioplasties. 2. Ischemic cardiomyopathy, status post AICD. 3. Cerebrovascular accident, status post thrombolytic therapy. PLAN: The patient will continue current medications. Increase his activity and possible discharge to home tomorrow. MMODL / IJN: [id number] /
[2024-06-30 11:05] LABS: Glucose,Whole Blood 128 mg/dL (70-110)
--- NOTE | 2024-06-30 12:53 | P.PN ---
Subjective Progress Note Date: 06/30/24 I am following up with the patient and he feels he is about the same. He continues to have right upper quadrant visual defect. Otherwise no new neurological issues. Patient had a repeat CT of the head which was unremarkable for any acute process. Patient was restarted on antiplatelet of aspirin 81 mg and Brilinta 90 mg 1 tablet twice daily. Objective - Vital Signs Vital signs: Vital Signs Temp 97.9 F 06/30/24 08:00 Pulse 80 06/30/24 12:00 Resp 18 06/30/24 12:00 BP 119/89 06/30/24 12:00 Pulse Ox 96 06/30/24 12:00 FiO2 Intake & Output 06/29/24 06/30/24 06/30/24 18:59 06:59 18:59 Intake Total 1045 Output Total 900 Balance 145 Weight 124.4 kg 122.6 kg Intake: IV 350 Sodium Chloride 0.9% 1, 300 000 ml In Empty Bag 1 bag @ 75 mls/hr IV .[id number] [facility] Rx#:[id number] cefTRIAXone 1 gm In 50 Sodium Chloride 0.9% 50 ml @ 100 mls/hr IVPB Q24HR [facility] Rx#:[id number] Intake, IV Titration 75 Amount Sodium Chloride 0.9% 1, 75 000 ml In Empty Bag 1 bag @ 75 mls/hr IV .[id number] [facility] Rx#:[id number] Oral 620 Output: Urine 900 Other: Voiding Method Toilet # Voids 1 - Exam GENERAL: The patient is lying in bed and is not in acute distress. NEUROLOGICAL: Higher mental function: The patient is awake, alert, oriented to self, place and time. Patient is following commands. No aphasia and no neglect. Cranial nerves: The pupils are round, equal and reactive to light and accommodation. Visual hauser are right homonymous upper quandrant anopsia to confrontation throughout. Extraocular movement is intact no nystagmus is noted. Facial sensation is normal to touch throughout. The facial strength is normal throughout. Hearing is normal bilaterally to hand rub. Tongue is midline and moved [id number] without any difficulty. No dysarthria is noted. Shoulder shrug is normal bilaterally. Motor: The strength is right 5 over 5 throughout. Has below the right knee amputation. Normal tone and bulk. Cerebellum: Normal finger to nose bilaterally. Sensation: Sensation is normal to touch throughout. Reflexes (right/left):1+ throughout. Plantars is mute on the left. Has below the right knee amputation. Some of the work-up during this hospital visit consisted of: Troponin most recent 1 was 0.213 Lipid panel is triglyceride is 295, cholesterol is 141, LDL is 47 and HDL is 34. CT of the head is reported as no significant abnormality seen. There is no acute bleed or mass effect. I personally reviewed the CT and I agree there is no acute or subacute process. Repeat CT of the head is reported as no acute intracranial process. Carotid duplex is reported as no hemodynamically significant stenosis. 24 hours post IV TNK CT: Is reported as no acute process. No evidence of intracranial hemorrhage. I personally reviewed the CT head and agree with the report. - Labs CBC & Chem 7: 06/26/24 14:30 06/29/24 05:26 Labs: Abnormal Lab Results - Last 24 Hours (Table) 06/26/24 06/29/24 06/29/24 Range/Units 14:30 16:32 20:43 POC Glucose (mg/dL) 233 H 195 H (70-110) mg/dL Hemoglobin A1c 9.4 H (<=6.0) % 06/30/24 Range/Units 11:04 POC Glucose (mg/dL) 128 H (70-110) mg/dL Hemoglobin A1c (<=6.0) % Microbiology - Last 24 Hours (Table) 06/27/24 12:24 Blood Culture - Preliminary Blood Assessment and Plan Assessment: This is a 44-year-old gentleman with significant cardiac issues who presents to the emergency department on 06/26/2024 for chest pain. Today he had cardiac cath and after the procedure when he got to the floors around 10 minutes later he had right vision loss on right arm was weak. Symptoms onset today at 12:50pm and last normal was 12:40pm today. Code stroke was activated and initially the stroke interventionalists recommended no IV thrombolytics since the patient received heparin drip as well as received Tirofiban. But then later Dr. Hernandez spoke with the stroke interventionalists and he felt he will benefit since has short half life. As a result patient repeat PT/PTT/INR were normal and received IV TNK on 06/28/24. Acute ischemic stroke Post IV TNK. Patient has right upper quadrant visual defect, right upper extremity weakness and ataxia with NIH of 3-->1 (right upper quadrant field cut). Etiology of stroke seems more cardioembolic from the recent procedure Acute chest pain status post PTCA of diagonal branch as well as LAD on 06/28/2024 Underlying history of coronary artery disease status post stent Diabetes mellitus Hypertension Hypercholesteremia History of TIA History of right below the knee amputation Plan: Patient had a repeat 24-hour CT head post IV TNK. It is unremarkable for any bleed. As a result the patient was resumed on his aspirin 81 mg daily as well as Brilinta 90 mg twice daily per cardiology recommendation. Unable to obtain MRI of the brain since the patient has AICD. Patient is on Lipitor 80 mg daily. Patient is also on Zetia 10 mg daily Continue neurochecks Cardiac monitoring PT and OT are consulted Will defer the rest of the medical management to primary and other specialist For DVT prophylaxis: I started the patient on subcu heparin 5000 units every 12 hours. Upon discharge recommend the patient to follow-up with lobby attendant as an outpatient as well as neurologist as an outpatient within 2 to 3 weeks. Otherwise no additional neurological workup. Will sign off. Please reconsult if needed. Time with Patient: Less than 30
[2024-06-30] MEDS: HEPARIN SODIUM,PORCINE 5,000 UNIT/ML 1 ML VIAL SQ SCH (14:22)
[2024-06-30 15:54] LABS: Glucose,Whole Blood 112 mg/dL (70-110)
[2024-06-30 20:31] LABS: Glucose,Whole Blood 180 mg/dL (70-110)
[2024-07-01 04:34] VITALS: TEMP 98.5
[2024-07-01 06:09] LABS: Glucose,Whole Blood 111 mg/dL (70-110)
--- NOTE | 2024-07-01 10:36 | PN ---
PROGRESS NOTE DATE OF SERVICE: 06/30/2024 He is on IV Rocephin for sinusitis. Seen by Dr. Lowery of Cardiology. He remains on Norvasc, aspirin, Lipitor, Zetia, insulin, Imdur, Lopressor, Brilinta, DuoNeb updrafts, and oxygen. No neuro defects. He possibly wants to go home soon. He has coronary artery disease, status post angioplasty; ischemic cardiomyopathy; cerebrovascular accidents, status post thrombolytic therapy. Continue current medicines. Possible discharge to home soon. Prognosis guarded. Remains in ICU, but he is stable. PHYSICAL EXAMINATION: LUNGS: Clear. CARDIOVASCULAR: S1 and S2. GENERAL: He is sitting up in bed. Alert, and oriented x3. NEUROLOGIC: Motor movements good x4. PSYCHIATRIC: Fair mood and affect. Continue current treatments. Discharge to home soon. He wants to go home maybe tomorrow. MMODL / RADHAN: [id number] /
[2024-07-01 11:37] LABS: Glucose,Whole Blood 123 mg/dL (70-110)
--- NOTE | 2024-07-01 12:08 | PN ---
PROGRESS NOTE SUBJECTIVE: A 44-year-old gentleman, who is admitted to the hospital with acute coronary syndrome and underwent multiple angioplasties including 1 on this admission, following which he had a stroke and received thrombolytic. This morning, he is feeling better and denies any chest pain. PHYSICAL EXAMINATION: VITAL SIGNS: Heart rate is 89 beats per minute, blood pressure is 130/93, respiratory rate is 18. CHEST: Reveals good air entry bilaterally. HEART: Reveals first and second heart sounds. No gallop. EXTREMITIES: Did not reveal any edema over the right leg. CURRENT MEDICATIONS: The patient is currently on: 1. Norvasc. 2. Aspirin. 3. Lipitor. 4. Zetia. 5. Insulin. 6. Lopressor 50 b.i.d. 7. Brilinta. 8. Entresto. 9. Ambien. ASSESSMENT: 1. Ischemic cardiomyopathy status post AICD. 2. Status post cerebrovascular accident. 3. Status post thrombolytic therapy. 4. Coronary artery disease, status post multivessel angioplasty. PLAN: The patient is doing well and he is stable for discharge. MMODL / IJN: [id number] /
[2024-07-01 13:19] VITALS: BP 132/89; PULSE 82; RESP 18
--- NOTE | 2024-07-01 19:33 | CDI ---
Documentation Clarification Form Date: 06/30/2024 12:22:00 PM From: Oralia Wesley RN, CCDS Phone: [phone] Admit Date: 06/26/2024 04:06:00 PM Patient Name: Shaun Roldan Visit Number: [id number] Discharge Date: 07/01/2024 04:15:00 PM ATTENTION: The Clinical Documentation Specialists (CDI) and [facility] Coding Staff appreciate your assistance in clarifying documentation. Please respond to the clarification below the line at the bottom and electronically sign. The CDI & [facility] Coding staff will review the response and follow-up if needed. Please note: Queries are made part of the Legal Health Record. If you have any questions, please contact the author of this message via ITS. Doctor. Alhaji Lowery Cerebrovascular accident postprocedure is documented in your progress note starting on 06/29/24 and the patient underwent cardiac catheterization and angioplasty on 06/28/24. Additional clarification is requested regarding the relationship, if any, that exists between the diagnosis and the procedure. History/Risk Factors: Coronary artery disease, status post multiple prior angioplasties, Ischemic cardiomyopathy, status post AICD. Patients Admitting Diagnosis: NSTEMI Post-Operative Diagnosis: same Procedure performed: PTCA of the first diagonal branch with adjunctive PTCA of the LAD and kissing technique. Left coronary angiogram Adjunctive use of IVUS Clinical Indicators: 44-year-old male with coronary artery disease, prior interventions, presented with chest pain and Troponin I 0.068, 0.125, 0.213. 06/28 PTCA of the first diagonal branch with adjunctive PTCA of the LAD n a kissing technique Left coronary angiogram He complained of right vision loss, on right arm was weak. CT Brain: 06/28), (06/28), (06/29) No acute intracranial process. No evidence of intracranial hemorrhage. DX: Acute ischemic stroke Post IV TNK. Patient has right upper quadrant visual defect, right upper extremity weakness and ataxia with NIH of 3-->1 (right upper quadrant field cut). Treatment: Director Translational /Telemetry T.NKase IV (06/28) Advance Neuro checks Q15X8, Q30X12, Q1X16 Q4 Consults: 06/30 Neurology: Etiology of stroke seems more cardioembolic from the recent procedure What relationship, if any, exists between the diagnosis of acute ischemic stroke and the procedure: [ ] Acute ischemic stroke is not clinically significant and not a complication [ ] Acute ischemic stroke is clinically significant and not a complication [ ] Acute ischemic stroke is clinically significant and a complication [ ] Other please specify ____ [ x ] Unable to determine (Template Last Revised: April 2024) MTDD
--- NOTE | 2024-07-01 20:06 | CDI ---
Documentation Clarification Form Date: 07/01/2024 07:35:24 PM From: Oralia Wesley RN, CCDS Phone: [phone] Admit Date: 06/26/2024 04:06:00 PM Patient Name: Shaun Roldan Visit Number: [id number] Discharge Date: 07/01/2024 04:15:00 PM ATTENTION: The Clinical Documentation Specialists (CDI) and [facility] Coding Staff appreciate your assistance in clarifying documentation. Please respond to the clarification below the line at the bottom and electronically sign. The CDI & [facility] Coding staff will review the response and follow-up if needed. Please note: Queries are made part of the Legal Health Record. If you have any questions, please contact the author of this message via ITS. DoctorDonna Carlo Espinal NSTEMI is documented in the H/P and subsequent progress notes on 06/28/24. Additional clarification regarding the IL is requested. History/Risk Factors: Coronary artery disease, status post multiple prior angioplasties, Ischemic cardiomyopathy, status post AICD. Clinical Indicators: 44-year-old male with coronary artery disease, prior interventions, presented with chest pain and Troponin I 0.068, 0.125, 0.213. EKG Results: Sinus rhythm with septal Q waves with ST depression in inferolateral leads. BP 115/69 heart rate 88 8 Cardiology consult -Cardiac catheterization performed 06/17/2024, PCI of mid LAD with 3.5 x 38 mm Xience. Several hospitalizations for NSTEMI. Severe CAD status post multiple PCI Treatment: Telephone Clerk Telegraph Office /Telemetry Brilinta 90 MG, ASA, Lipitor, Colchicine Amlodipine Metoprolol, Imdur 06/28 PTCA of the first diagonal branch with adjunctive PTCA of the LAD n a kissing technique Left coronary angiogram Please clarify the NSTEMI on the current admission 06/26/24 is a subsequent NSTEMI (less the 28 days) of [place], if known: [ ] Yes subsequent NSTEMI with prior NSTEMI 06/17/24 [ ] Unable to determine [ ] Other Condition, please specify (Template Last Revised: June 2020) MTDD
--- NOTE | 2024-07-05 11:38 | PN ---
PROGRESS NOTE A 44-year-old white male. He has had non-STEMI on 06/17/2024. MMODL / IJN: [id number] /
== END 2024-07-01 16:15 | disposition home or self-care (01) | DRG 174 ==
LOC: EC 13:35 → 3SCARD 16:05 → OBSVTOIN 16:06 → 3SCARD 16:48 → 2SICU 06-28 15:59
PROVIDERS: ADMIT Family Medicine; ATTEND Family Medicine
PROC: 027034Z Dilation of Coronary Artery, One Artery with Drug-eluting Intraluminal Device, Percutaneous Approach (ICD-10-PCS; principal; 2024-06-28 10:23)
PROC: B240ZZ3 Ultrasonography of Single Coronary Artery, Intravascular (ICD-10-PCS; principal; 2024-06-28 10:23)
PROC: 3E03317 Introduction of Other Thrombolytic into Peripheral Vein, Percutaneous Approach (ICD-10-PCS; 2024-06-28 10:23)
DX: I22.2 Subsequent non-ST elevation (NSTEMI) myocardial infarction (principal); I21.4 Non-ST elevation (NSTEMI) myocardial infarction; I63.9 Cerebral infarction, unspecified; I25.10 Atherosclerotic heart disease of native coronary artery without angina pectoris; I11.0 Hypertensive heart disease with heart failure; I25.2 Old myocardial infarction; I25.5 Ischemic cardiomyopathy; I50.9 Heart failure, unspecified; F32.A Depression, unspecified; E66.9 Obesity, unspecified; T82.855A Stenosis of coronary artery stent, initial encounter; E11.65 Type 2 diabetes mellitus with hyperglycemia; E11.51 Type 2 diabetes mellitus with diabetic peripheral angiopathy without gangrene; Z68.36 Body mass index [BMI] 36.0-36.9, adult; L03.211 Cellulitis of face; H54.61 Unqualified visual loss, right eye, normal vision left eye; R29.703 NIHSS score 3; Y83.1 Surgical operation with implant of artificial internal device as the cause of abnormal reaction of the patient, or of later complication, without mention of misadventure at the time of the procedure; G89.29 Other chronic pain; E78.00 Pure hypercholesterolemia, unspecified; G47.33 Obstructive sleep apnea (adult) (pediatric); M54.9 Dorsalgia, unspecified; G43.909 Migraine, unspecified, not intractable, without status migrainosus; F41.9 Anxiety disorder, unspecified; Z79.01 Long term (current) use of anticoagulants; Z79.02 Long term (current) use of antithrombotics/antiplatelets; Z79.4 Long term (current) use of insulin; Z79.82 Long term (current) use of aspirin; Z79.84 Long term (current) use of oral hypoglycemic drugs; Z79.899 Other long term (current) drug therapy; Z86.73 Personal history of transient ischemic attack (TIA), and cerebral infarction without residual deficits; Z87.891 Personal history of nicotine dependence; Z89.511 Acquired absence of right leg below knee; Z91.199 Patient's noncompliance with other medical treatment and regimen due to unspecified reason; Z95.810 Presence of automatic (implantable) cardiac defibrillator; Z79.85 Long-term (current) use of injectable non-insulin antidiabetic drugs
CPT/HCPCS: 36415; 70450; 70486; 71046; 80053; 80061; 82565; 83036; 83735; 84484; 85025; 85610; 85730; 87040; 92920; 92921; 92978; 93005; 93880; 94640; 96365; 96366; 96368; 96375; 99285

== ENCOUNTER 2024-07-14 19:33 | Observation (INO) | payer OTHER ==
--- NOTE | 2024-07-14 19:54 | ED ---
Chest Pain HPI - General Source: patient Mode of arrival: ambulatory Limitations: no limitations <Rigo Angelo - Last Filed: 07/14/24 19:54> <Makayla Mccain - Last Filed: 07/14/24 22:22> - General Chief Complaint: Chest Pain Stated Complaint: Chest Pain,Sob Time Seen by Provider: 07/14/24 19:54 - History of Present Illness Initial Comments: Quick note: 44-year-old male presenting with chief complaint of chest pain. Pain is located in the center of the chest and radiates to the left neck and arm. Started about 2 hours ago. He admits to shortness of breath. No swelling in the left leg, he has a right leg amputation. (Rigo Angelo) This is a 44-year-old male with history of coronary artery disease with recent coronary artery stent placement, heart failure, hyperlipidemia, diabetes, and hypertension presents emergency department for chief complaint of substernal chest pain that started 2 hours prior to arrival. He states that this pain started while he was walking. Pain radiates up into the left side of his neck and down his left arm. Describes the pain as a stabbing sensation. Endorses associated nausea and diaphoresis. States that he took a nitro at home with minimal relief of symptoms. (Makayla Mccain) - Related Data Home Medications Medication Instructions Recorded Confirmed Insulin NPH Hum/Reg Insulin Hm 60 unit SQ BID 12/07/21 06/26/24 [humuLIN 70/30 Kwikpen] Semaglutide [Ozempic] 1 mg SQ TH 03/11/24 06/26/24 Lidocaine 4% Patch 1 patch TRANSDERM DAILY 05/08/24 06/26/24 Previous Rx's Medication Instructions Recorded Aspirin 81 mg PO DAILY #30 07/15/21 Nitroglycerin Sl Tabs [Nitrostat] 0.4 mg SUBLINGUAL Q5M PRN #30 tab 07/15/21 Ezetimibe [Zetia] 10 mg PO DAILY #90 tab 04/11/24 Mag Hydrox/Al Hydrox/Simeth 30 ml PO Q4HR PRN ml 04/11/24 [Maalox] Colchicine [Colcrys] 0.6 mg PO DAILY #30 each 05/02/24 Atorvastatin [Lipitor] 80 mg PO HS #30 tab 05/13/24 Ticagrelor [Brilinta] 90 mg PO BID #60 tab 05/13/24 Gabapentin [Neurontin] 300 mg PO TID 30 Days #90 cap 06/24/24 Ipratropium-Albuterol Nebulize 3 ml INHALATION RT-TID 30 Days 06/24/24 [Duoneb 0.5 mg-3 mg/3 ml Soln] #120 each Isosorbide Mononitrate ER [Imdur] 120 mg PO DAILY 30 Days #30 tab 06/24/24 amLODIPine [Norvasc] 5 mg PO DAILY 30 Days #30 tab 06/24/24 Metoprolol Tartrate [Lopressor] 50 mg PO BID 30 Days #60 tab 07/01/24 Sacubitril/Valsartan [Entresto 24 1 each PO BID 30 Days #60 tab 07/01/24 mg-26 mg Tablet] Allergies Allergy/AdvReac Type Severity Reaction Status Date / Time Penicillins Allergy Unknown Verified 07/14/24 19:40 Childhood Review of Systems ROS Other: All systems not noted in ROS Statement are negative. <Rigo Angelo - Last Filed: 07/14/24 19:54> ROS Other: All systems not noted in ROS Statement are negative. <Makayla Mccain - Last Filed: 07/14/24 22:22> ROS Statement: Those systems with pertinent positive or pertinent negative responses have been documented in the HPI. Past Medical History Past Medical History: Coronary Artery Disease (CAD), Chest Pain / Angina, Heart Failure, Diabetes Mellitus, Hyperlipidemia, Hypertension, Myocardial Infarction ([place]), Sleep Apnea/CPAP/BIPAP, Syncope Additional Past Medical History / Comment(s): AICD. IDDM type II. Neuropathy bilateral feet. 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 Migraines. Chronic back pain. R BKA (done 2023). Last Myocardial Infarction Date:: 2023 History of Any Multi-Drug Resistant Organisms: None Reported Past Surgical History: AICD, Heart Catheterization, Heart Catheterization With Stent, Orthopedic Surgery Additional Past Surgical History / Comment(s): 10/27/12 AICD, DFTs, PCI with 2 stents, R BKA. Past Anesthesia/Blood Transfusion Reactions: No Reported Reaction Date of Last Stent Placement:: 06/28/2024 Type of Cardiac Device: AICD Device Placement Date:: 2012 Past Psychological History: Anxiety, Depression Smoking Status: Former smoker Past Alcohol Use History: None Reported Past Drug Use History: None Reported - Past Family History Mother Family Medical History: No Reported History Brother(s) Family Medical History: Myocardial Infarction ([place]) Father Family Medical History: Liver Disease Sister(s) Additional Family Medical History / Comment(s): Huntings disease <Rigo Angelo - Last Filed: 07/14/24 19:54> General Exam Limitations: no limitations <Rigo Angelo - Last Filed: 07/14/24 19:54> Eye exam: Present: normal appearance, PERRL, EOMI. Absent: scleral icterus, conjunctival injection, periorbital swelling Neck exam: Present: normal inspection. Absent: tenderness, meningismus, lymphadenopathy Respiratory exam: Present: normal lung sounds bilaterally. Absent: respiratory distress, wheezes, rales, rhonchi, stridor Cardiovascular Exam: Present: regular rate, normal rhythm, normal heart sounds. Absent: systolic murmur, diastolic murmur, rubs, gallop, clicks GI/Abdominal exam: Present: soft, normal bowel sounds. Absent: distended, tenderness, guarding, rebound, rigid Extremities exam: Present: normal inspection, full ROM, normal capillary refill. Absent: tenderness, pedal edema, joint swelling, calf tenderness Back exam: Present: normal inspection Neurological exam: Present: alert, oriented X3, CN II-XII intact <RenleahMakayla - Last Filed: 07/14/24 22:22> - General Exam Comments Initial Comments: Visual Physical Exam Vital signs reviewed General: Well-appearing, nontoxic, no acute distress. Head: Normocephalic, atraumatic Eyes: PERRLA, EOMI ENT: Airway patent Chest: Nonlabored breathing Skin: No visual rash, normal skin tone Neuro: Alert and oriented 3 Musculoskeletal: No gross abnormalities (Rigo Angelo) Course Vital Signs 07/14/24 07/14/24 07/14/24 19:41 20:10 21:00 Temperature 97.6 F Pulse Rate 76 68 69 Respiratory 16 18 18 Rate Blood Pressure 140/91 137/88 142/87 O2 Sat by Pulse 99 95 97 Oximetry 07/14/24 22:00 Temperature Pulse Rate 70 Respiratory 18 Rate Blood Pressure 138/77 O2 Sat by Pulse 97 Oximetry Chest Pain MDM <Rigo Angelo - Last Filed: 07/14/24 19:54> <Makayla Mccain - Last Filed: 07/14/24 22:22> - MDM I performed the quick note portion of this visit, electronically signed Rigo Angelo PA-C (Rigo Angelo) Was pt. sent in by a medical professional or institution (JAYA Cruz, HYDRAULIC TECHNICIAN, urgent care, hospital, or intermediate...) When possible be specific @ -No Did you speak to anyone other than the patient for history (EMS, parent, family, police, friend...)? What history was obtained from this source @ -No Did you review nursing and triage notes (agree or disagree)? Why? @ -I reviewed and agree with nursing and triage notes Were old charts reviewed (outside hosp., previous admission, EMS record, old EKG, old radiological studies, urgent care reports/EKG's, intermediate records)? Report findings @ -CT of the chest completed on 06/18/2024 no acute abnormality noted Patient has a history of ischemic cardiomyopathy with stent placement of the first diagonal branch with adjunctive stenting of the LAD. Patient suffered from a CVA and received thrombolytic therapy with return of deficits that occurred on 06/28/2024 after he returned to the floor from cardiac catheterization where was recommended by fisheries technician and stroke team that patient receive IV thrombolytics Differential Diagnosis (chest pain, altered mental status, abdominal pain women, abdominal pain men, vaginal bleeding, weakness, fever, dyspnea, syncope, h eadache, dizziness, GI bleed, back pain, seizure, CVA, palpatations, mental health, musculoskeletal)? @ -Differential Chest Pain: Stable Angina, Unstable Angina, STEMI, NSTEMI Aortic Dissection, Pneumothorax, Musculoskeletal, Esophageal Spasm GERD, Cholecystitis, Pancreatitis, Zoster, this is not meant to be an all-inclusive list. EKG interpreted by me (3pts min.). @ -Completed at 1955 sinus rhythm with a ventricular to 74, parable 186, QRS 130, QTc 400. X-rays interpreted by me (1pt min.). @ -chest xray no acute process CT interpreted by me (1pt min.). @ -None done U/S interpreted by me (1pt. min.). @ -None done What testing was considered but not performed or refused? (CT, X-rays, U/S, labs)? Why? @ -None What meds were considered but not given or refused? Why? @ -None Did you discuss the management of the patient with other professionals (professionals i.e. , PA, HYDRAULIC TECHNICIAN, lab, RT, psych nurse, clinical social worker, surgical tech, teacher, chief commercial officer, case finisher)? Give summary @ -patient's PCP, Dr. Espinal, for admission who has agreed with cardiology on consult. Was smoking cessation discussed for >3mins.? @ -No Was critical care preformed (if so, how long)? @ -No Were there social determinants of health that impacted care today? How? (Homelessness, low income, unemployed, alcoholism, drug addiction, transportation, low edu. Level, literacy, decrease access to med. care, senior living, re hab)? @ -No Was there de-escalation of care discussed even if they declined (Discuss DNR or withdrawal of care, Hospice)? DNR status @ -No What co-morbidities impacted this encounter? (DM, HTN, Smoking, COPD, CAD, Cancer, CVA, ARF, Chemo, Hep., AIDS, mental health diagnosis, sleep apnea, morbid obesity)? @ -Coronary artery disease, hypertension, hyperlipidemia Was patient admitted / discharged? Hospital course, mention meds given and route, prescriptions, significant lab abnormalities, going to OR and other pertinent info. @ -Admitted. 44-year male presenting for substernal chest pain. On arrival patient's pain is present and nonreproducible. Vitals are stable. EKG sinus rhythm. He is provided with Nitropaste and aspirin. Laboratory test including CBC, CMP, coagulation troponin within normal. Chest x-ray unremarkable. On reevaluation patient is still experiencing chest pain. He is provided with dose of morphine and will admit to internal medicine with cardiology on consult. Will trend troponin. Case discussed with Dr. Lance Undiagnosed new problem with uncertain prognosis? @ -No Drug Therapy requiring intensive monitoring for toxicity (Heparin, Nitro, Insulin, Cardizem)? @ -No Were any procedures done? @ -No Diagnosis/symptom? @ -chest pain Acute, or Chronic, or Acute on Chronic? @ -acute Uncomplicated (without systemic symptoms) or Complicated (systemic symptoms)? @ -complicated Side effects of treatment? @ -No Exacerbation, Progression, or Severe Exacerbation? @ -No Poses a threat to life or bodily function? How? (Chest pain, [place], [place], pneumonia, PE, COPD, DKA, ARF, appy, cholecystitis, CVA, Diverticulitis, Homicidal, Suicidal, threat to staff... and all critical care pts) @ -yes, chest pain/ACS has possibility to lead to end organ dysfunction. (Makayla Mccain) Disposition <Rigo Angelo - Last Filed: 07/14/24 19:54> Decision to Admit Reason: Admit from EC Decision Date: 07/14/24 Decision Time: 21:52 <Makayla Mccain - Last Filed: 07/14/24 22:22> Clinical Impression: Chest pain Disposition: [facility] Condition: Serious
[2024-07-14] MEDS: ASPIRIN 81 MG PO STA (20:34)
[2024-07-14] MEDS: NITROGLYCERIN OINT 1 INCH/GM PACKET TOPICAL STA (20:35)
[2024-07-14 20:36] LABS: Basophils # (A) 0.1 k/uL (0-0.2); Basophils % (A) 1 %; Eosinophils # (A) 0.3 k/uL (0-0.7); Eosinophils % (A) 4 %; HCT 44.3 % (39.0-53.0); HGB 14.3 gm/dL (13.0-17.5); Hypochromasia Slight; Lymphocytes # (A) 1.8 k/uL (1.0-4.8); Lymphocytes % (A) 26 %; MCH 23.6 pg (25.0-35.0); MCHC 32.3 g/dL (31.0-37.0); Mean Platelet Volume 7.1; Microcytosis Moderate; Monocytes # (A) 0.4 k/uL (0-1.0); Monocytes % (A) 6 %; Neutrophils # (A) 4.3 k/uL (1.3-7.7); Neutrophils % (A) 61 %; Platelet Count 245 k/uL (150-450); RBC 6.07 m/uL (4.30-5.90); RDW 15.7 % (11.5-15.5)
--- NOTE | 2024-07-14 20:43 | XR ---
EXAMINATION TYPE: XR chest 2V DATE OF EXAM: 07/14/2024 8:34 PM COMPARISON: Chest radiographs from 06/26/2024. CLINICAL INDICATION: Male, 44 years old with history of Chest Pain; [facility] TECHNIQUE: XR chest 2V Frontal and lateral views of the chest. FINDINGS: Lungs/Pleura: There is no evidence of pleural effusion, focal consolidation, or pneumothorax. Pulmonary vascularity: Unremarkable. Heart/mediastinum: Cardiomediastinal silhouette is unremarkable. Single-lead cardiac conduction devic e overlying the left hemithorax with lead projecting over the right ventricle. Musculoskeletal: No acute osseous pathology. Other findings: None IMPRESSION: No acute cardiopulmonary disease/process. [facility], , 07/14/2024 8:41 PM
[2024-07-14 20:46] LABS: Partial Thromboplastin Time 22.5 sec (22.0-30.0); Prothrombin Time 10.7 sec (10.0-12.5)
[2024-07-14 20:48] LABS: ALT 20 U/L (4-49); AST 20 U/L (17-59); African American GFR (CKD) >90 (>60 ml/min/1.73 sqM); Alkaline Phosphatase 85 U/L (38-126); Anion Gap 8 mmol/L; Blood Urea Nitrogen 13 mg/dL (9-20); Carbon Dioxide 22 mmol/L (22-30); Chloride 108 mmol/L (98-107); Glucose 125 mg/dL (74-99); Non-African American GFR(CKD) >90 (>60 ml/min/1.73 sqM); Potassium 4.1 mmol/L (3.5-5.1); Sodium 138 mmol/L (137-145); Total Bilirubin 1.1 mg/dL (0.2-1.3); Total Protein 6.9 g/dL (6.3-8.2)
[2024-07-14] MEDS ORDERED: ACETAMINOPHEN TAB 325 MG TAB PO PRN (21:52)
[2024-07-14] MEDS ORDERED: NALOXONE 0.4 MG/ML 1 ML VIAL IV PRN (21:52)
[2024-07-14] MEDS: MORPHINE SULFATE 4 MG/ML SYRINGE IVP STA (22:12)
[2024-07-15] MEDS: MORPHINE SULFATE 4 MG/ML SYRINGE IV PRN (02:58)
[2024-07-15 03:21] LABS: Basophils # (A) 0.1 k/uL (0-0.2); Basophils % (A) 1 %; Eosinophils # (A) 0.3 k/uL (0-0.7); Eosinophils % (A) 4 %; HCT 42.8 % (39.0-53.0); HGB 13.4 gm/dL (13.0-17.5); Hypochromasia Moderate; Lymphocytes # (A) 2.2 k/uL (1.0-4.8); Lymphocytes % (A) 30 %; MCH 23.4 pg (25.0-35.0); MCHC 31.4 g/dL (31.0-37.0); MCV 74.4 fL (80.0-100.0); Mean Platelet Volume 7.1; Microcytosis Slight; Monocytes # (A) 0.5 k/uL (0-1.0); Monocytes % (A) 7 %; Neutrophils % (A) 55 %; Platelet Count 243 k/uL (150-450); RBC 5.74 m/uL (4.30-5.90); RDW 15.7 % (11.5-15.5); WBC 7.3 k/uL (3.8-10.6)
[2024-07-15 03:31] LABS: ALT 18 U/L (4-49); AST 17 U/L (17-59); African American GFR (CKD) >90 (>60 ml/min/1.73 sqM); Albumin 3.7 g/dL (3.5-5.0); Alkaline Phosphatase 85 U/L (38-126); Anion Gap 9 mmol/L; Blood Urea Nitrogen 14 mg/dL (9-20); Calcium 9.1 mg/dL (8.4-10.2); Carbon Dioxide 22 mmol/L (22-30); Chloride 106 mmol/L (98-107); Glucose 143 mg/dL (74-99); Non-African American GFR(CKD) >90 (>60 ml/min/1.73 sqM); Potassium 3.9 mmol/L (3.5-5.1); Sodium 137 mmol/L (137-145); Total Bilirubin 0.7 mg/dL (0.2-1.3); Total Protein 6.5 g/dL (6.3-8.2)
[2024-07-15 08:18] VITALS: BP 136/86; PULSE 65; RESP 16; TEMP 97.9
--- NOTE | 2024-07-15 10:16 | P.CRDCN ---
History of Present Illness History of present illness: HISTORY OF PRESENT ILLNESS: This is a 44-year-old male with a past medical history significant for coronary artery disease, peripheral arterial disease, right BKA, ischemic cardiomyopathy, ICD implantation, and diabetes. Patient follows in the office with Dr. Hernandez. We have been asked to see the patient in consultation for chest pain. Patient examined at the bedside on the observation unit. Patient presented to the hospital yesterday with a chief complaint of chest discomfort. He denied any radiation of the pain. Denied any shortness of breath. Troponins were trended and were negative x 3. Vital signs are stable. DIAGNOSTICS: - EKG reveals sinus mechanism with IVCD - Chest xray negative for acute process - Laboratory data: WBC 7.3. Hemoglobin 13.4. Platelet count 243. Sodium 137. Potassium 3.9. BUN 14. Creatinine 0.82. Troponin negative x 3 - Current home cardiac medication list has not been updated at the time of examination - Most recent echocardiogram obtained in 05/10/2024 revealed EF of 35%, RVSP 38. Negative bubble study. No pericardial effusion. -Limited echo obtained in May 2024 revealed ejection fraction 2024% with inferior lateral wall most abnormalities - Cardiac catheterization history: 04/08/2024 revealed patent stent in the mid and distal LAD and [employer] of the RCA and WE[employer] of the left circumflex. Subsequently, PTCA 04/10/2024 of both the PDA and PLV branches of the RCA was performed. 04/29/2024 cardiac catheterization finding patent stent in the mid and distal left anterior descending artery. Chronic total occlusion of the left c ircumflex. Intermediate to severe disease involving the mid RCA documented to be flow-limiting by Doppler wire and in the same setting, successful stenting of the mid RCA and PLB branch of the RCA. 05/12/2024 cardiac catheterization revealed patent stent to the LAD diagonal system. WE[employer] of the left circumflex and left circumflex fills by collaterals. Severe in-stent restenosis involving the mid RCA with multiple layers of stent. Balloon angioplasty was performed with no stenting of the RCA. Mildly elevated left-sided filling pressure. 06/17/2024, PCI of mid LAD with 3.5 x 38 mm Xience. -06/28/2024 with PTCA of the first diagonal branch with adjunctive PTCA of the LAD and a kissing technique REVIEW OF SYSTEMS: At the time of my exam: CONSTITUTIONAL: Denies fever or chills. HEENT: Denies blurred vision, vision changes, or eye pain. Denies hemoptysis CARDIOVASCULAR: Denies chest pain. Denies orthopnea. Denies PND. Denies palpitations RESPIRATORY: Denies shortness of breath. GASTROINTESTINAL: Denies abdominal pain. Denies nausea or vomiting. HEMATOLOGIC: Denies bleeding disorders. GENITOURINARY: Denies any blood in urine. SKIN: Denies pruitis. Denies rash. PHYSICAL EXAM: VITAL SIGNS: Reviewed. GENERAL: Well-developed in no acute distress. HEENT: Head is normocephalic. Pupils are equal, round. Sclerae anicteric. Mucous membranes of the mouth are moist. Neck supple. No JVD or thyromegaly LUNGS: Respirations even and unlabored. Lungs essentially clear to auscultation bilaterally. HEART: Regular rate and rhythm. S1 and S2 heard. ABDOMEN: Soft. Nondistended. Nontender. EXTREMITIES: Normal range of motion. No clubbing or cyanosis. Peripheral pulses intact. Right BKA. NEUROLOGIC: Awake and alert. Oriented x 3. ASSESSMENT: Chest pain Recent hospitalization with angioplasty of first diagonal branch & LAD with CVA post procedure with thrombolytic infusion Coronary artery disease with multiple PCI Hyperlipidemia Diabetes Right BKA Ischemic cardiomyopathy, EF 20-25 Status post ICD implantation Hypertension PAD PLAN: An acute coronary event has been ruled out Resume home cardiac medications when medication list has been updated No plans for stress testing or cardiac catheterization from a cardiac standpoint Patient may be discharged home today from a cardiac standpoint Patient to follow-up postdischarge with Dr. Hernandez Nurse practitioner note has been reviewed by physician. Signing provider agrees with the documented findings, assessment, and plan of care documented by LPN CARE MANAGER as a scribe. Past Medical History Past Medical History: Coronary Artery Disease (CAD), Chest Pain / Angina, Heart Failure, CVA/TIA, Diabetes Mellitus, Hyperlipidemia, Hypertension, Myocardial Infarction ([place]), Respiratory Disorder, Sleep Apnea/CPAP/BIPAP, Syncope Additional Past Medical History / Comment(s): AICD. IDDM type II. Neuropathy bilateral feet. 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 Migraines. Chronic back pain. R BKA (done 2023). Last Myocardial Infarction Date:: 2023 History of Any Multi-Drug Resistant Organisms: None Reported Past Surgical History: AICD, Heart Catheterization, Heart Catheterization With Stent, Orthopedic Surgery Additional Past Surgical History / Comment(s): 10/27/12 AICD, DFTs, PCI with 2 dane nts, R BKA. Past Anesthesia/Blood Transfusion Reactions: No Reported Reaction Date of Last Stent Placement:: 06/28/2024 Type of Cardiac Device: AICD Device Placement Date:: 2012 Past Psychological History: Anxiety, Depression Additional Psychological History / Comment(s): rajesh . Smoking Status: Former smoker Past Alcohol Use History: None Reported Additional Past Alcohol Use History / Comment(s): quit in 2018 about 1/2 ppd Past Drug Use History: None Reported - Past Family History Mother Family Medical History: No Reported History Brother(s) Family Medical History: Myocardial Infarction ([place]) Father Family Medical History: Liver Disease Sister(s) Additional Family Medical History / Comment(s): Huntings disease Medications and Allergies Home Medications Medication Instructions Recorded Confirmed Type Aspirin 81 mg PO DAILY #30 07/15/21 06/26/24 Rx Nitroglycerin Sl Tabs [Nitrostat] 0.4 mg SUBLINGUAL Q5M PRN #30 tab 07/15/21 06/26/24 Rx Insulin NPH Hum/Reg Insulin Hm 60 unit SQ BID 12/07/21 06/26/24 History [humuLIN 70/30 Kwikpen] Semaglutide [Ozempic] 1 mg SQ TH 03/11/24 06/26/24 History Ezetimibe [Zetia] 10 mg PO DAILY #90 tab 04/11/24 06/26/24 Rx Mag Hydrox/Al Hydrox/Simeth 30 ml PO Q4HR PRN ml 04/11/24 06/26/24 Rx [Maalox] Colchicine [Colcrys] 0.6 mg PO DAILY #30 each 05/02/24 06/26/24 Rx Lidocaine 4% Patch 1 patch TRANSDERM DAILY 05/08/24 06/26/24 History Atorvastatin [Lipitor] 80 mg PO HS #30 tab 05/13/24 06/26/24 Rx Ticagrelor [Brilinta] 90 mg PO BID #60 tab 05/13/24 06/26/24 Rx Gabapentin [Neurontin] 300 mg PO TID 30 Days #90 cap 06/24/24 06/26/24 Rx Ipratropium-Albuterol Nebulize 3 ml INHALATION RT-TID 30 Days 06/24/24 06/26/24 Rx [Duoneb 0.5 mg-3 mg/3 ml Soln] #120 each Isosorbide Mononitrate ER [Imdur] 120 mg PO DAILY 30 Days #30 tab 06/24/24 06/26/24 Rx amLODIPine [Norvasc] 5 mg PO DAILY 30 Days #30 tab 06/24/24 06/26/24 Rx Metoprolol Tartrate [Lopressor] 50 mg PO BID 30 Days #60 tab 07/01/24 Rx Sacubitril/Valsartan [Entresto 24 1 each PO BID 30 Days #60 tab 07/01/24 Rx mg-26 mg Tablet] Allergies Allergy/AdvReac Type Severity Reaction Status Date / Time Penicillins Allergy Unknown Verified 07/15/24 10:15 Childhood Physical Exam Vitals: Vital Signs Temp Pulse Pulse Resp BP BP Pulse Ox 07/15/24 07:00 97.9 F 65 16 136/86 99 07/15/24 02:37 98.4 F 70 12 143/92 99 07/15/24 02:08 78 18 141/88 97 07/15/24 01:00 75 18 124/91 95 07/14/24 22:00 70 18 138/77 97 07/14/24 21:00 69 18 142/87 97 07/14/24 20:10 68 18 137/88 95 07/14/24 19:41 97.6 F 76 16 140/91 99 Intake and Output 07/14/24 07/15/24 07/15/24 22:59 06:59 14:59 Other: # Voids 1 Weight 125.191 kg 125.191 kg Results 07/15/24 02:59 07/15/24 02:59 Cardiac Enzymes 07/14/24 07/14/24 07/15/24 Range/Units 20:30 20:30 00:17 AST 20 (17-59) U/L Troponin I <0.012 <0.012 (0.000-0.034) ng/mL 07/15/24 07/15/24 Range/Units 02:59 02:59 AST 17 (17-59) U/L Troponin I <0.012 (0.000-0.034) ng/mL Coagulation 07/14/24 Range/Units 20:30 PT 10.7 (10.0-12.5) sec APTT 22.5 (22.0-30.0) sec CBC 07/14/24 07/15/24 Range/Units 20:30 02:59 WBC 7.0 7.3 (3.8-10.6) k/uL RBC 6.07 H 5.74 (4.30-5.90) m/uL Hgb 14.3 13.4 (13.0-17.5) gm/dL Hct 44.3 42.8 (39.0-53.0) % Plt Count 245 243 (150-450) k/uL Comprehensive Metabolic Panel 07/14/24 07/15/24 Range/Units 20:30 02:59 Sodium 138 137 (137-145) mmol/L Potassium 4.1 3.9 (3.5-5.1) mmol/L Chloride 108 H 106 (98-107) mmol/L Carbon Dioxide 22 22 (22-30) mmol/L BUN 13 14 (9-20) mg/dL Creatinine 0.80 0.82 (0.66-1.25) mg/dL Glucose 125 H 143 H (74-99) mg/dL Calcium 9.0 9.1 (8.4-10.2) mg/dL AST 20 17 (17-59) U/L ALT 20 18 (4-49) U/L Alkaline Phosphatase 85 85 (38-126) U/L Total Protein 6.9 6.5 (6.3-8.2) g/dL Albumin 4.0 3.7 (3.5-5.0) g/dL Current Medications Generic Name Dose Route Start Last Admin Trade Name Freq PRN Reason Stop Dose Admin Acetaminophen 650 mg 07/14/24 21:52 Acetaminophen Tab 325 Mg Tab PO Q6HR PRN Mild Pain or Fever > 100.5 Morphine Sulfate 4 mg 07/14/24 21:52 07/15/24 08:32 Morphine Sulfate 4 Mg/Ml Syringe IV 4 mg Q4HR PRN Administration Severe Pain (Scale 7 to 10) Naloxone HCl 0.2 mg 07/14/24 21:52 Naloxone 0.4 Mg/Ml 1 Ml Vial IV Q2M PRN Opioid Reversal Intake and Output 07/14/24 07/15/2407/15/25 22:59 06:59 14:59 Other: # Voids 1 Weight 125.191 kg 125.191 kg 07/15/24 02:59 07/15/24 02:59
--- NOTE | 2024-07-15 10:57 | PN ---
PROGRESS NOTE SUBJECTIVE: A 44-year-old white male, who recently had a stent placed in his heart with peripheral artery disease, BKA, ischemic cardiomyopathy, ICD implantation, diabetes, came in for chest pain. Denies any radiation of the pain. He woke up with pain in the morning. The troponins are 10, so far has been negative x3. Vital signs are stable. EKG sinus rhythm. Chest x-ray is negative. White count 7.3, hemoglobin 13.4, platelets 243. Potassium 3.9, sodium 137, BUN is 14, creatinine 0.82. He recently had a stent on 06/28/2024 of the diagonal branch of the LAD. REVIEW OF SYSTEMS: A 14-point review of systems negative, except for the chest pain. PHYSICAL EXAMINATION: VITAL SIGNS: Stable. HEAD: Normocephalic, atraumatic, obese. LUNGS: Mild wheeze. HEART: S1 and S2. ABDOMEN: Distended. EXTREMITIES: on the right leg. NEUROLOGIC: Cranial nerves intact. ASSESSMENT: 1. Chest pain, status post angioplasty. 2. Coronary artery disease, rule out myocardial infarction. 3. Diabetes. 4. Right below knee amputation. 5. Ischemic cardiomyopathy. 6. ICD. 7. Hypertension. 8. Chronic obstructive pulmonary disease. Coronary event has been ruled out. Cardiology saw the patient. Discharged him home from cardiac standpoint. Home risk factors are given. Prognosis guarded. MMODL / IJN: [id number] /
[2024-07-15] MEDS: amLODIPine 5 MG TAB PO SCH (11:09)
[2024-07-15] MEDS: TICAGRELOR 90 MG TAB PO SCH (11:09)
[2024-07-15] MEDS: COLCHICINE 0.6 MG EACH PO SCH (11:09)
[2024-07-15] MEDS: SACUBITRIL/VALSARTAN 24 MG-26 MG TABLET PO SCH (11:09)
[2024-07-15] MEDS: ISOSORBIDE MONONITRATE ER 60 MG TAB.ER.24H PO SCH (11:09)
[2024-07-15] MEDS: METOPROLOL TARTRATE 50 MG TAB PO SCH (11:09)
[2024-07-15] MEDS: EZETIMIBE 10 MG TAB PO SCH (11:09)
[2024-07-15] MEDS: SPIRONOLACTONE 25 MG TAB PO SCH (11:09)
[2024-07-15] MEDS: ASPIRIN 81 MG PO SCH (11:09)
[2024-07-15] MEDS: RANOLAZINE 500 MG TAB.ER.12H PO SCH (11:09)
[2024-07-15] MEDS ORDERED: ATORVASTATIN 80 MG TAB PO SCH (21:00)
== END 2024-07-15 16:27 | disposition home or self-care (01) ==
LOC: EC 19:33 → 6NMEDSUR 21:40 → 1SOBS 07-15 01:45
PROVIDERS: ADMIT Family Medicine; ATTEND Family Medicine
DX: R07.9 Chest pain, unspecified (principal); I25.10 Atherosclerotic heart disease of native coronary artery without angina pectoris; I11.0 Hypertensive heart disease with heart failure; I25.2 Old myocardial infarction; I25.5 Ischemic cardiomyopathy; I50.9 Heart failure, unspecified; E11.51 Type 2 diabetes mellitus with diabetic peripheral angiopathy without gangrene; E78.5 Hyperlipidemia, unspecified; J44.0 Chronic obstructive pulmonary disease with (acute) lower respiratory infection; G47.33 Obstructive sleep apnea (adult) (pediatric); Z79.4 Long term (current) use of insulin; Z88.0 Allergy status to penicillin; Z95.5 Presence of coronary angioplasty implant and graft; Z95.810 Presence of automatic (implantable) cardiac defibrillator; Z89.511 Acquired absence of right leg below knee; Z86.73 Personal history of transient ischemic attack (TIA), and cerebral infarction without residual deficits; Z79.899 Other long term (current) drug therapy; Z79.82 Long term (current) use of aspirin; Z79.02 Long term (current) use of antithrombotics/antiplatelets
CPT/HCPCS: 96376; 96374; 99285; 36415; 93005; 85379; 80053 ×2; 83735; 84484 ×2; 85025 ×2; 85610; 85730; 71046; G0378 ×2; J2270 ×2

== ENCOUNTER 2024-07-17 20:18 | Observation (INO) | payer OTHER ==
--- NOTE | 2024-07-17 20:43 | ED ---
General Adult HPI - General Chief complaint: Chest Pain Stated complaint: chest pain Time Seen by Provider: 07/17/24 20:33 Source: EMS Mode of arrival: EMS Limitations: no limitations - History of Present Illness Initial comments: Patient is a 44-year-old male with a past medical history of CAD, hyperlipidemia, hypertension presenting today for chest pain. Patient states that he was driving in the car with his brother when he began having sharp left-sided chest pain radiating down his left arm and towards his jaw and then remembers he was waking up in the ambulance. States he lost consciousness. States when this happened in the past doctors have not been able to tell him why this happened. He was recently admitted for similar chest pain. Endorses shortness of breath in regards to feeling as though is difficult taking a deep breath in due to chest pressure. Denies change in vision, states feels tingling going down his left arm from his chest. Otherwise denies new numbness or weakness. Denies hemoptysis, headache, diaphoresis. Endorses is nausea. Does state that while awaiting assessment he began having sharp pain in the lower asp ect of his abdomen that is nonradiating. No melena or hematochezia. - Related Data Home Medications Medication Instructions Recorded Confirmed Insulin NPH Hum/Reg Insulin Hm 60 unit SQ BID 12/07/21 07/18/24 [humuLIN 70/30 Kwikpen] Lidocaine 4% Patch 1 patch TRANSDERM DAILY 05/08/24 07/18/24 HYDROcodone/APAP 10-325MG [[place] 1 tab PO TID 07/15/24 07/18/24 10-325] Omeprazole [PriLOSEC] 40 mg PO DAILY 07/15/24 07/18/24 Semaglutide [Ozempic] 2 mg SQ TH 07/15/24 07/18/24 Sacubitril/Valsartan [Entresto 24 1 tab PO BID 07/18/24 07/18/24 mg-26 mg Tablet] Previous Rx's Medication Instructions Recorded Aspirin 81 mg PO DAILY #30 07/15/21 Nitroglycerin Sl Tabs [Nitrostat] 0.4 mg SUBLINGUAL Q5M PRN #30 tab 07/15/21 Mag Hydrox/Al Hydrox/Simeth 30 ml PO Q4HR PRN ml 04/11/24 [Maalox] Atorvastatin [Lipitor] 80 mg PO HS #30 tab 05/13/24 Ticagrelor [Brilinta] 90 mg PO BID #60 tab 05/13/24 Ipratropium-Albuterol Nebulize 3 ml INHALATION RT-TID 30 Days 06/24/24 [Duoneb 0.5 mg-3 mg/3 ml Soln] #120 each Isosorbide Mononitrate ER [Imdur] 120 mg PO DAILY 30 Days #30 tab 06/24/24 amLODIPine [Norvasc] 5 mg PO DAILY 30 Days #30 tab 06/24/24 Metoprolol Tartrate [Lopressor] 50 mg PO BID 30 Days #60 tab 07/01/24 Acetaminophen Tab [Tylenol] 650 mg PO Q6HR PRN tab 07/15/24 Colchicine [Colcrys] 0.6 mg PO DAILY 30 Days #30 each 07/15/24 Ezetimibe [Zetia] 10 mg PO DAILY 90 Days #90 tab 07/15/24 Ranolazine [Ranexa] 1,000 mg PO Q12HR 30 Days #60 tab 07/15/24 Spironolactone [Aldactone] 25 mg PO DAILY 90 Days #90 tab 07/15/24 Allergies Allergy/AdvReac Type Severity Reaction Status Date / Time Penicillins Allergy Unknown Verified 07/18/24 11:19 Childhood Review of Systems ROS Statement: Those systems with pertinent positive or pertinent negative responses have been documented in the HPI. ROS Other: All systems not noted in ROS Statement are negative. Past Medical History Past Medical History: Coronary Artery Disease (CAD), Chest Pain / Angina, Heart Failure, CVA/TIA, Diabetes Mellitus, Hyperlipidemia, Hypertension, Myocardial Infarction ([place]), Respiratory Disorder, Sleep Apnea/CPAP/BIPAP, Syncope Additional Past Medical History / Comment(s): AICD. IDDM type II. Neuropathy bilateral feet. 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 Migraines. Chronic back pain. R BKA (done 2023). Last Myocardial Infarction Date:: 2023 History of Any Multi-Drug Resistant Organisms: None Reported Past Surgical History: AICD, Heart Catheterization, Heart Catheterization With Stent, Orthopedic Surgery Additional Past Surgical History / Comment(s): 10/27/12 AICD, DFTs, PCI with 2 stents, R BKA. Past Anesthesia/Blood Transfusion Reactions: No Reported Reaction Date of Last Stent Placement:: 06/28/2024 Type of Cardiac Device: AICD Device Placement Date:: 2012 Past Psychological History: Anxiety, Depression Smoking Status: Former smoker Past Alcohol Use History: None Reported Past Drug Use History: None Reported - Past Family History Mother Family Medical History: No Reported History Brother(s) Family Medical History: Myocardial Infarction ([place]) Father Family Medical History: Liver Disease Sister(s) Additional Family Medical History / Comment(s): Huntings disease General Exam - General Exam Comments Initial Comments: PE: CONSTITUTIONAL: No apparent distress, well appearing SKIN: Warm, dry, no jaundice, hives or petechiae EYES: Pupils are equally round, extraocular movements intact without nystagmus, clear conjunctiva, non-icteric sclera HENT: Normocephalic, atraumatic, moist mucus membranes, oropharynx clear without exudates NECK: , Full range of motion, normal appearance PULMONARY: Clear to auscultation without wheezes, rhonchi, or rales, normal excursion, no accessory muscle use and no stridor CARDIOVASCULAR: Regular rate, rhythm, normal S1 and S2. No appreciated murmurs, rubs or gallops. Strong radial pulses with intact distal perfusion. No lower extremity edema GASTROINTESTINAL: Soft, active bowel sounds throughout, non-tender, non- distended, no palpable masses, no rebound or guarding. No hepatosplenomegaly MUSCULOSKELETAL: Extremities have no gross deformity, patient does have an AKA of the right lower extremity NEUROLOGIC:_a/o x 3, GCS 15, normal mentation and speech. Moves all extremities x 4 without motor or sensory deficit though states he does feel some tingling to the distal and lateral aspect of the left arm when compared to the right PSYCHIATRIC:_normal mood and affect, thought process is clear and linear Limitations: no limitations Course Vital Signs 07/17/24 07/17/24 07/18/24 20:19 21:59 02:00 Temperature 97.4 F L Pulse Rate 70 67 85 Respiratory 18 18 18 Rate Blood Pressure 153/100 124/107 111/100 O2 Sat by Pulse 99 99 99 Oximetry 07/18/24 07/18/24 07/18/24 04:15 08:42 08:59 Temperature 97.6 F Pulse Rate 79 69 72 Respiratory 16 Rate Blood Pressure 112/87 O2 Sat by Pulse 95 Oximetry 07/18/24 07/18/24 07/18/24 09:33 12:32 12:40 Temperature 97.7 F Pulse Rate 80 68 70 Respiratory 18 Rate Blood Pressure 135/104 O2 Sat by Pulse 98 Oximetry 07/18/24 14:00 Temperature Pulse Rate 80 Respiratory 18 Rate Blood Pressure 132/78 O2 Sat by Pulse 98 Oximetry EKG Findings - EKG Comments: EKG Findings:: Sinus rhythm with first-degree AV block, rate 69 bpm MT interval 212 ms, QT/QTc 392/411 ms, normal axis, no ST elevations or depressions,Compared to EKG performed on 07/14/2024, no significant changes from prior EKG Medical Decision Making - Medical Decision Making Was pt. sent in by a medical professional or institution (, PA, MENTAL HEALTH AIDE, urgent care, hospital, or alf...) When possible be specific @ -No Did you speak to anyone other than the patient for history (EMS, parent, family, police, friend...)? What history was obtained from this source @ -No Did you review nursing and triage notes (agree or disagree)? Why? @ -I reviewed nursing and triage notes Were old charts reviewed (outside hosp., previous admission, EMS record, old EKG, old radiological studies, urgent care reports/EKG's, alf records)? Report findings @ -Medical records reviewed reviewed discharge summary from 07/15/2024, patient was admitted for chest pain and discharged after troponin time negative x 3 Differential Diagnosis (chest pain, altered mental status, abdominal pain women, abdominal pain men, vaginal bleeding, weakness, fever, dyspnea, syncope, headac he, dizziness, GI bleed, back pain, seizure, CVA, palpatations, mental health, musculoskeletal)? @Differential Chest Pain: Stable Angina, Unstable Angina, STEMI, NSTEMI Aortic Dissection, pericarditis, pleurisy, chostochondirits, Pneumothorax, Musculoskeletal, Esophageal Spasm GERD, Cholecystitis, Pancreatitis, Zoster, this is not meant to be an all- inclusive list. Differential Syncope: Valvular disease, hypertrophic cardiomyopathy, tamponade, arrhythmia, ACS, hypovolemia, hemorrhage, dissection, anemia, intracranial hemorrhage, seizure, hypoglycemia, this is not meant to be an all-inclusive list. EKG interpreted by me (3pts min.). @ -As above X-rays interpreted by me (1pt min.). @I personally reviewed chest x-ray, I see no cardiomegaly, consolidations or pleural effusions I agree with radiologist interpretation CT interpreted by me (1pt min.). @ -None done U/S interpreted by me (1pt. min.). @ -None done What testing was considered but not performed or refused? (CT, X-rays, U/S, labs)? Why? CT head was considered however pt states tingling sensation in lateral left arm appears to be radiating from his chest pain, does not encompass the entire extremity and has no other focal neurologic deficits on exam What meds were considered but not given or refused? Why? @ -None Did you discuss the management of the patient with other professionals (professionals i.e. , PA, MENTAL HEALTH AIDE, lab, RT, psych nurse, home health care social worker, finish specialist, teacher, fare enforcement officer, case worker)? Give summary @ -No Was smoking cessation discussed for >3mins.? @ -No Was critical care preformed (if so, how long)? @ -No Were there social determinants of health that impacted care today? How? (Homelessness, low income, unemployed, alcoholism, drug addiction, transportation, low edu. Level, literacy, decrease access to med. care, fdc, rehab)? @ -No Was there de-escalation of care discussed even if they declined (Discuss DNR or withdrawal of care, Hospice)? @ -No What co-morbidities impacted this encounter? (DM, HTN, Smoking, COPD, CAD, Cancer, CVA, ARF, Chemo, Hep., AIDS, mental health diagnosis, sleep apnea, morbid obesity)? CAD, DM, HTN, CVA Was patient admitted / discharged? Hospital course, mention meds given and route, prescriptions, significant lab abnormalities, going to OR and other pertinent info. @ Admission- 44 y/o Male with complex past medical history, recent admission for chest pain, presenting today for syncope and chest pain. ACS workup was ordered, in addition to ASA, nitro and morphine for pain control. Labs and imaging reviewed. Grossly within normal limits. Abnormal values not concerning for acute pathology related to presenting complaint. On reassesment pt endorsed improvem ent of symptoms. Patient has multiple risk factors for suffering an MCI, HEART score 4, so discussed w/ pt admission for observation. Patient agreeable with plan of care. Case discussed with Dr. Altamirano who kindly accepted pt for admission. Undiagnosed new problem with uncertain prognosis? @ -No Drug Therapy requiring intensive monitoring for toxicity (Heparin, Nitro, Insulin, Cardizem)? @ -No Were any procedures done? @ -No Diagnosis/symptom? @ -Syncope, Chest pain Acute, or Chronic, or Acute on Chronic? acute Uncomplicated (without systemic symptoms) or Complicated (systemic symptoms)? complicated Side effects of treatment? @ -No Exacerbation, Progression, or Severe Exacerbation? @ -No Poses a threat to life or bodily function? How? (Chest pain, [place], [place], pneumonia, PE, COPD, DKA, ARF, appy, cholecystitis, CVA, Diverticulitis, Homicidal, Suicidal, threat to staff... and all critical care pts) @ Potentially if symptoms 2/2 ACS - Lab Data Result diagrams: 07/17/24 21:10 07/17/24 20:48 Lab Results 07/17/24 07/17/24 07/17/24 Range/Units 20:48 20:48 20:48 WBC (3.8-10.6) k/uL RBC (4.30-5.90) m/uL Hgb (13.0-17.5) gm/dL Hct (39.0-53.0) % MCV (80.0-100.0) fL MCH (25.0-35.0) pg MCHC (31.0-37.0) g/dL RDW (11.5-15.5) % Plt Count (150-450) k/uL MPV Neutrophils % % Lymphocytes % % Monocytes % % Eosinophils % % Basophils % % Neutrophils # (1.3-7.7) k/uL Lymphocytes # (1.0-4.8) k/uL Monocytes # (0-1.0) k/uL Eosinophils # (0-0.7) k/uL Basophils # (0-0.2) k/uL Hypochromasia Poikilocytosis Microcytosis PT 10.4 (10.0-12.5) sec INR 0.9 (<1.2) APTT 23.6 (22.0-30.0) sec Sodium 137 (137-145) mmol/L Potassium 4.2 (3.5-5.1) mmol/L Chloride 104 (98-107) mmol/L Carbon Dioxide 25 (22-30) mmol/L Anion Gap 8 mmol/L BUN 14 (9-20) mg/dL Creatinine 0.82 (0.66-1.25) mg/dL Est GFR (CKD-EPI)AfAm >90 (>60 ml/min/1.73 sqM) Est GFR (CKD-EPI)NonAf >90 (>60 ml/min/1.73 sqM) Glucose 144 H (74-99) mg/dL Calcium 9.1 (8.4-10.2) mg/dL Magnesium 2.0 (1.6-2.3) mg/dL Total Bilirubin 0.8 (0.2-1.3) mg/dL AST 17 (17-59) U/L ALT 17 (4-49) U/L Alkaline Phosphatase 86 (38-126) U/L Troponin I <0.012 (0.000-0.034) ng/mL NT-Pro-B Natriuret Pep 894 pg/mL Total Protein 6.5 (6.3-8.2) g/dL Albumin 3.7 (3.5-5.0) g/dL Lipase 51 (23-300) U/L 07/17/24 Range/Units 21:10 WBC 6.6 (3.8-10.6) k/uL RBC 5.74 (4.30-5.90) m/uL Hgb 13.4 (13.0-17.5) gm/dL Hct 42.5 (39.0-53.0) % MCV 74.1 L (80.0-100.0) fL MCH 23.4 L (25.0-35.0) pg MCHC 31.5 (31.0-37.0) g/dL RDW 15.8 H (11.5-15.5) % Plt Count 240 (150-450) k/uL MPV 7.6 Neutrophils % 56 % Lymphocytes % 29 % Monocytes % 7 % Eosinophils % 5 % Basophils % 1 % Neutrophils # 3.7 (1.3-7.7) k/uL Lymphocytes # 1.9 (1.0-4.8) k/uL Monocytes # 0.5 (0-1.0) k/uL Eosinophils # 0.3 (0-0.7) k/uL Basophils # 0.1 (0-0.2) k/uL Hypochromasia Slight Poikilocytosis Slight Microcytosis Slight PT (10.0-12.5) sec INR (<1.2) APTT (22.0-30.0) sec Sodium (137-145) mmol/L Potassium (3.5-5.1) mmol/L Chloride (98-107) mmol/L Carbon Dioxide (22-30) mmol/L Anion Gap mmol/L BUN (9-20) mg/dL Creatinine (0.66-1.25) mg/dL Est GFR (CKD-EPI)AfAm (>60 ml/min/1.73 sqM) Est GFR (CKD-EPI)NonAf (>60 ml/min/1.73 sqM) Glucose (74-99) mg/dL Calcium (8.4-10.2) mg/dL Magnesium (1.6-2.3) mg/dL Total Bilirubin (0.2-1.3) mg/dL AST (17-59) U/L ALT (4-49) U/L Alkaline Phosphatase (38-126) U/L Troponin I (0.000-0.034) ng/mL NT-Pro-B Natriuret Pep pg/mL Total Protein (6.3-8.2) g/dL Albumin (3.5-5.0) g/dL Lipase (23-300) U/L Disposition Clinical Impression: Chest pain, Syncope Disposition: ADMITTED IP TO THIS HOSP Condition: Stable
[2024-07-17 21:10] LABS: INR 0.9 (<1.2); Partial Thromboplastin Time 23.6 sec (22.0-30.0); Prothrombin Time 10.4 sec (10.0-12.5)
[2024-07-17] MEDS: ASPIRIN 81 MG PO STA (21:12)
[2024-07-17 21:20] LABS: Basophils # (A) 0.1 k/uL (0-0.2); Basophils % (A) 1 %; Eosinophils # (A) 0.3 k/uL (0-0.7); Eosinophils % (A) 5 %; HCT 42.5 % (39.0-53.0); HGB 13.4 gm/dL (13.0-17.5); Hypochromasia Slight; Lymphocytes # (A) 1.9 k/uL (1.0-4.8); Lymphocytes % (A) 29 %; MCH 23.4 pg (25.0-35.0); MCHC 31.5 g/dL (31.0-37.0); MCV 74.1 fL (80.0-100.0); Mean Platelet Volume 7.6; Microcytosis Slight; Monocytes # (A) 0.5 k/uL (0-1.0); Monocytes % (A) 7 %; Neutrophils # (A) 3.7 k/uL (1.3-7.7); Neutrophils % (A) 56 %; Platelet Count 240 k/uL (150-450); Poikilocytosis Slight; RBC 5.74 m/uL (4.30-5.90); RDW 15.8 % (11.5-15.5); WBC 6.6 k/uL (3.8-10.6)
[2024-07-17 21:20] LABS: ALT 17 U/L (4-49); AST 17 U/L (17-59); African American GFR (CKD) >90 (>60 ml/min/1.73 sqM); Albumin 3.7 g/dL (3.5-5.0); Alkaline Phosphatase 86 U/L (38-126); Anion Gap 8 mmol/L; Blood Urea Nitrogen 14 mg/dL (9-20); Calcium 9.1 mg/dL (8.4-10.2); Carbon Dioxide 25 mmol/L (22-30); Chloride 104 mmol/L (98-107); Glucose 144 mg/dL (74-99); Lipase 51 U/L (23-300); Non-African American GFR(CKD) >90 (>60 ml/min/1.73 sqM); Potassium 4.2 mmol/L (3.5-5.1); Sodium 137 mmol/L (137-145); Total Bilirubin 0.8 mg/dL (0.2-1.3); Total Protein 6.5 g/dL (6.3-8.2)
[2024-07-17 21:28] LABS: NT-Pro-B-Type Natriuretic Pept 894 pg/mL
[2024-07-17] MEDS ORDERED: NITROGLYCERIN SL TABS 0.4 MG TAB SUBLINGUAL PRN ×2 (21:40→23:10)
--- NOTE | 2024-07-17 21:50 | XR ---
EXAMINATION TYPE: XR chest 2V DATE OF EXAM: 07/17/2024 9:42 PM COMPARISON: None CLINICAL INDICATION: Male, 44 years old with history of Chest Pain; [facility] TECHNIQUE: XR chest 2V Frontal and lateral views of the chest. FINDINGS: Lungs/Pleura: There is no evidence of pleural effusion, focal consolidation, or pneumothorax. Pulmonary vascularity: Unremarkable. Heart/mediastinum: Cardiomediastinal silhouette is unremarkable. Single-lead cardiac conduction devic e overlying the left hemithorax with lead projecting over the right ventricle. Musculoskeletal: No acute osseous pathology. IMPRESSION: No acute cardiopulmonary disease/process. [facility], , 07/17/2024 9:48 PM
[2024-07-17] MEDS: ONDANSETRON 4 MG/2 ML VIAL IVP STA (22:02)
[2024-07-17] MEDS: MORPHINE SULFATE 4 MG/ML SYRINGE IVP STA (22:03)
[2024-07-17] MEDS ORDERED: ONDANSETRON 4 MG/2 ML VIAL IVP PRN (23:06)
[2024-07-17] MEDS ORDERED: ACETAMINOPHEN TAB 325 MG TAB PO PRN (23:06)
[2024-07-17] MEDS ORDERED: NALOXONE 0.4 MG/ML 1 ML VIAL IV PRN (23:06)
[2024-07-17] MEDS ORDERED: MAG HYDROX/AL HYDROX/SIMETH 30 ML CUP PO PRN (23:06)
[2024-07-17] MEDS ORDERED: CALCIUM CARBONATE 500 MG CHEWABLE PO PRN (23:06)
[2024-07-17] MEDS ORDERED: traMADol 50 MG TAB PO PRN (23:06)
[2024-07-17] MEDS: HYDROcodone/APAP 10-325MG 1 EACH TAB PO SCH (23:53)
[2024-07-18] MEDS: MORPHINE SULFATE 4 MG/ML SYRINGE IV PRN (04:12)
[2024-07-18] MEDS: IPRATROPIUM-ALBUTEROL 3 ML NEB INHALATION SCH (08:41)
[2024-07-18] MEDS: TICAGRELOR 90 MG TAB PO SCH (09:35)
[2024-07-18] MEDS: ISOSORBIDE MONONITRATE ER 60 MG TAB.ER.24H PO SCH (09:35)
[2024-07-18] MEDS: METOPROLOL TARTRATE 50 MG TAB PO SCH (09:35)
[2024-07-18] MEDS: ASPIRIN 81 MG PO SCH (09:35)
[2024-07-18] MEDS: SPIRONOLACTONE 25 MG TAB PO SCH (09:35)
[2024-07-18] MEDS: FAMOTIDINE 20 MG TAB PO SCH (09:35)
[2024-07-18] MEDS: PANTOPRAZOLE 40 MG TABLET PO SCH (09:35)
[2024-07-18] MEDS: SACUBITRIL/VALSARTAN 24 MG-26 MG TABLET PO SCH (09:35)
[2024-07-18] MEDS: RANOLAZINE 500 MG TAB.ER.12H PO SCH (09:36)
[2024-07-18] MEDS: EZETIMIBE 10 MG TAB PO SCH (09:36)
[2024-07-18] MEDS: amLODIPine 5 MG TAB PO SCH (09:36)
[2024-07-18] MEDS: COLCHICINE 0.6 MG EACH PO SCH (12:03)
[2024-07-18] MEDS: INSULIN NPL/INSULIN LISPRO 100 UNIT/ML 10 ML VL (Humalog 75/25) SQ SCH (12:46)
--- NOTE | 2024-07-18 13:24 | P.CRDCN ---
History of Present Illness Consult date: 07/18/24 History of present illness: This is a 44-year-old gentleman who is known to our service very well with a past medical he significant for CAD with multiple stenting in the past including stenting of the LAD and stenting of the diagonal and stenting of the RCA and known chronic total occlusion of the LCx and ischemic cardiomyopathy status post AICD and chronic chest pain as well as hypertension and dyslipidemia and multiple comorbid conditions. The patient was in his usual state of health until yesterday when he was sitting as a passenger in the car with his and suddenly he felt warm and weak and dizzy and subsequently he lost his consciousness. No symptoms of chest pain or chest discomfort or heart racing or fluttering. He was brought to the emergency department for further evaluation. Pressure remains stable. Currently is asymptomatic. The symptoms of chest discomfort has resolved after he underwent the last PCI of the diagonal branch. The physical examination is remarkable for regular rhythm with a soft systolic murmur at the right and left upper sternal border and apical area with a clear breathing sounds bilaterally and no edema was noted in the lower extremities Assessment Syncope appears to be consistent with reflux syncope and cardiac syncope to be ruled out giving the extensive cardiac history CAD as described above Ischemic cardiomyopathy Status post right [id number] amputation Multiple comorbid conditions Plan Acute coronary event was ruled out and the troponin is normal and the patient was not having any chest pain or chest discomfort Performed AICD interrogation Further recommendation to follow Past Medical History Past Medical History: Coronary Artery Disease (CAD), Chest Pain / Angina, Heart Failure, CVA/TIA, Diabetes Mellitus, Hyperlipidemia, Hypertension, Myocardial Infarction ([place]), Respiratory Disorder, Sleep Apnea/CPAP/BIPAP, Syncope Additional Past Medical History / Comment(s): AICD. IDDM type II. Neuropathy bilateral feet. 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 Migraines. Chronic back pain. R BKA (done 2023). Last Myocardial Infarction Date:: 2023 History of Any Multi-Drug Resistant Organisms: None Reported Past Surgical History: AICD, Heart Catheterization, Heart Catheterization With Stent, Orthopedic Surgery Additional Past Surgical History / Comment(s): 10/27/12 AICD, DFTs, PCI with 2 stents, R BKA. Past Anesthesia/Blood Transfusion Reactions: No Reported Reaction Date of Last Stent Placement:: 06/28/2024 Type of Cardiac Device: AICD Device Placement Date:: 2012 Past Psychological History: Anxiety, Depression Smoking Status: Former smoker Past Alcohol Use History: None Reported Past Drug Use History: None Reported - Past Family History Mother Family Medical History: No Reported History Brother(s) Family Medical History: Myocardial Infarction ([place]) Father Family Medical History: Liver Disease Sister(s) Additional Family Medical History / Comment(s): Huntings disease Medications and Allergies Home Medications Medication Instructions Recorded Confirmed Type Aspirin 81 mg PO DAILY #30 07/15/21 07/18/24 Rx Nitroglycerin Sl Tabs [Nitrostat] 0.4 mg SUBLINGUAL Q5M PRN #30 tab 07/15/21 07/18/24 Rx Insulin NPH Hum/Reg Insulin Hm 60 unit SQ BID 12/07/21 07/18/24 History [humuLIN 70/30 Kwikpen] Mag Hydrox/Al Hydrox/Simeth 30 ml PO Q4HR PRN ml 04/11/24 07/18/24 Rx [Maalox] Lidocaine 4% Patch 1 patch TRANSDERM DAILY 05/08/24 07/18/24 History Atorvastatin [Lipitor] 80 mg PO HS #30 tab 05/13/24 07/18/24 Rx Ticagrelor [Brilinta] 90 mg PO BID #60 tab 05/13/24 07/18/24 Rx Ipratropium-Albuterol Nebulize 3 ml INHALATION RT-TID 30 Days 06/24/24 07/18/24 Rx [Duoneb 0.5 mg-3 mg/3 ml Soln] #120 each Isosorbide Mononitrate ER [Imdur] 120 mg PO DAILY 30 Days #30 tab 06/24/24 07/18/24 Rx amLODIPine [Norvasc] 5 mg PO DAILY 30 Days #30 tab 06/24/24 07/18/24 Rx Metoprolol Tartrate [Lopressor] 50 mg PO BID 30 Days #60 tab 07/01/24 07/18/24 Rx Acetaminophen Tab [Tylenol] 650 mg PO Q6HR PRN tab 07/15/24 07/18/24 Rx Colchicine [Colcrys] 0.6 mg PO DAILY 30 Days #30 each 07/15/24 07/18/24 Rx Ezetimibe [Zetia] 10 mg PO DAILY 90 Days #90 tab 07/15/24 07/18/24 Rx HYDROcodone/APAP 10-325MG [[place] 1 tab PO TID 07/15/24 07/18/24 History 10-325] Omeprazole [PriLOSEC] 40 mg PO DAILY 07/15/24 07/18/24 History Ranolazine [Ranexa] 1,000 mg PO Q12HR 30 Days #60 tab 07/15/24 07/18/24 Rx Semaglutide [Ozempic] 2 mg SQ TH 07/15/24 07/18/24 History Spironolactone [Aldactone] 25 mg PO DAILY 90 Days #90 tab 07/15/24 07/18/24 Rx Sacubitril/Valsartan [Entresto 24 1 tab PO BID 07/18/24 07/18/24 History mg-26 mg Tablet] Allergies Allergy/AdvReac Type Severity Reaction Status Date / Time Penicillins Allergy Unknown Verified 07/18/24 11:19 Childhood Physical Exam Vitals: Vital Signs Temp Pulse Resp BP Pulse Ox 07/18/24 12:40 70 07/18/24 12:32 68 07/18/24 09:33 97.7 F 80 18 135/104 98 07/18/24 08:59 72 07/18/24 08:42 69 07/18/24 04:15 97.6 F 79 16 112/87 95 07/18/24 02:00 85 18 111/100 99 07/17/24 21:59 67 18 124/107 99 07/17/24 20:19 97.4 F L 70 18 153/100 99 Intake and Output 07/17/24 07/18/24 07/18/24 22:59 06:59 14:59 Other: Weight 125.191 kg Results 07/17/24 21:10 07/17/24 20:48 Cardiac Enzymes 07/17/24 07/17/24 07/18/24 Range/Units 20:48 20:48 00:17 AST 17 (17-59) U/L Troponin I <0.012 <0.012 (0.000-0.034) ng/mL 07/18/24 Range/Units 04:32 AST (17-59) U/L Troponin I <0.012 (0.000-0.034) ng/mL Coagulation 03/28/25 Range/Units 20:48 PT 10.4 (10.0-12.5) sec APTT 23.6 (22.0-30.0) sec CBC 07/17/24 Range/Units 21:10 WBC 6.6 (3.8-10.6) k/uL RBC 5.74 (4.30-5.90) m/uL Hgb 13.4 (13.0-17.5) gm/dL Hct 42.5 (39.0-53.0) % Plt Count 240 (150-450) k/uL Comprehensive Metabolic Panel 07/17/24 Range/Units 20:48 Sodium 137 (137-145) mmol/L Potassium 4.2 (3.5-5.1) mmol/L Chloride 104 (98-107) mmol/L Carbon Dioxide 25 (22-30) mmol/L BUN 14 (9-20) mg/dL Creatinine 0.82 (0.66-1.25) mg/dL Glucose 144 H (74-99) mg/dL Calcium 9.1 (8.4-10.2) mg/dL AST 17 (17-59) U/L ALT 17 (4-49) U/L Alkaline Phosphatase 86 (38-126) U/L Total Protein 6.5 (6.3-8.2) g/dL Albumin 3.7 (3.5-5.0) g/dL Current Medications Generic Name Dose Route Start Last Admin Trade Name Freq PRN Reason Stop Dose Admin Acetaminophen 650 mg 07/17/24 23:06 Acetaminophen Tab 325 Mg Tab PO Q6HR PRN Mild Pain or Fever > 100.5 Hydrocodone Bitart/Acetaminophen 1 each 07/17/24 23:15 07/18/24 09:38 Hydrocodone/Apap 10-325mg 1 Each Tab PO 1 each TID KSENIA Administration Al Hydroxide/Mg Hydroxide 15 ml 07/17/24 23:06 Mag Hydrox/Al Hydrox/Simeth 30 Ml Cup PO Q6HR PRN Indigestion Albuterol/Ipratropium 3 ml 07/18/24 08:00 07/18/24 12:31 Ipratropium-Albuterol 3 Ml Neb INHALATION 3 ml RT-TID KSENIA Administration Amlodipine Besylate 5 mg 07/18/24 09:00 07/18/24 09:36 Amlodipine 5 Mg Tab PO 5 mg DAILY KSENIA Administration Aspirin 81 mg 07/18/24 09:00 07/18/24 09:35 Aspirin 81 Mg PO 81 mg DAILY [facility] Administration Atorvastatin Calcium 80 mg 07/18/24 21:00 Atorvastatin 80 Mg Tab PO HS [facility] Calcium Carbonate/Glycine 1,000 mg 07/17/24 23:06 Calcium Carbonate 500 Mg Chewable PO Q4HR PRN Dyspepsia Colchicine 0.6 mg 07/18/24 09:00 07/18/24 12:03 Colchicine 0.6 Mg Each PO 0.6 mg DAILY [facility] Administration Ezetimibe 10 mg 07/18/24 09:00 07/18/24 09:36 Ezetimibe 10 Mg Tab PO 10 mg DAILY [facility] Administration Famotidine 20 mg 07/18/24 09:00 07/18/24 09:35 Famotidine 20 Mg Tab PO 20 mg BID [facility] Administration Insulin Lispro Protam/Lispro Human 60 unit 07/18/24 09:00 07/18/24 12:46 Insulin Npl/Insulin Lispro 100 Unit/Ml 10 Ml Vl (Humalog 75/) SQ 60 unit BID [facility] Administration Isosorbide Mononitrate 120 mg 07/18/24 09:00 07/18/24 09:35 Isosorbide Mononitrate Er 60 Mg Tab.Er.24h PO 120 mg DAILY [facility] Administration Metoprolol Tartrate 50 mg 07/18/24 09:00 07/18/24 09:35 Metoprolol Tartrate 50 Mg Tab PO 50 mg BID [facility] Administration Morphine Sulfate 4 mg 07/17/24 23:06 07/18/24 12:49 Morphine Sulfate 4 Mg/Ml Syringe IV 4 mg Q4HR PRN Administration Severe Pain (Scale 7 to 10) Naloxone HCl 0.2 mg 07/17/24 23:06 Naloxone 0.4 Mg/Ml 1 Ml Vial IV Q2M PRN Opioid Reversal Nitroglycerin 0.4 mg 07/17/24 21:40 Nitroglycerin Sl Tabs 0.4 Mg Tab SUBLINGUAL Q5M PRN Chest Pain Nitroglycerin 0.4 mg 07/17/24 23:10 Nitroglycerin Sl Tabs 0.4 Mg Tab SUBLINGUAL Q5M PRN Chest Pain Non-Formulary Medication 2 mg 07/23/24 09:00 Semaglutide [Ozempic] SQ [facility] Ondansetron HCl 4 mg 07/17/24 23:06 Ondansetron 4 Mg/2 Ml Vial IVP Q8HR PRN Nausea And Vomiting Pantoprazole Sodium 40 mg 07/18/24 09:00 07/18/24 09:35 Pantoprazole 40 Mg Tablet PO 40 mg DAILY KSEN[facility] Administration Ranolazine 1,000 mg 07/18/24 09:00 07/18/24 09:36 Ranolazine 500 Mg Tab.Er.12h PO 1,000 mg Q12HR KSENIA Administration Sacubitril/Valsartan 1 each 07/18/24 09:00 07/18/24 09:35 Sacubitril/Valsartan 24 Mg-26 Mg Tablet PO 1 each BID [facility]EN[facility] Administration Spironolactone 25 mg 07/18/24 09:00 07/18/24 09:35 Spironolactone 25 Mg Tab PO 25 mg DAILY [facility] Administration Ticagrelor 90 mg 07/18/24 09:00 07/18/24 09:35 Ticagrelor 90 Mg Tab PO 90 mg BID KSENIA Administration Intake and Output 07/17/24 07/18/24 07/18/24 22:59 06:59 14:59 Other: Weight 125.191 kg 07/17/24 21:10 07/17/24 20:48
[2024-07-18 17:35] LABS: Glucose,Whole Blood 370 mg/dL (70-110)
[2024-07-18 19:20] LABS: Glucose,Whole Blood 185 mg/dL (70-110)
[2024-07-18 21:58] LABS: Glucose,Whole Blood 227 mg/dL (70-110)
[2024-07-18] MEDS: INSULIN LISPRO (HumaLOG) 100 UNIT/ML 10 mL VL SQ SCH (22:00)
[2024-07-18] MEDS: ATORVASTATIN 80 MG TAB PO SCH (22:00)
[2024-07-19 06:00] LABS: Glucose,Whole Blood 124 mg/dL (70-110)
--- NOTE | 2024-07-19 11:21 | P.PN ---
Subjective Progress Note Date: 07/19/24 This is a 44-year-old gentleman who is known to our service very well with a past medical he significant for CAD with multiple stenting in the past including stenting of the LAD and stenting of the diagonal and stenting of the RCA and known chronic total occlusion of the LCx and ischemic cardiomyopathy status post AICD and chronic chest pain as well as hypertension and dyslipidemia and multiple comorbid conditions. The patient was in his usual state of health until yesterday when he was sitting as a passenger in the car with his and suddenly he felt warm and weak and dizzy and subsequently he lost his consciousness. No symptoms of chest pain or chest discomfort or heart racing or fluttering. He was brought to the emergency department for further evaluation. Pressure remains stable. Currently is asymptomatic. The symptoms of chest discomfort has resolved after he underwent the last PCI of the diagonal branch. The physical examination is remarkable for regular rhythm with a soft systolic murmur at the right and left upper sternal border and apical area with a clear breathing sounds bilaterally and no edema was noted in the lower extremities July 19, 2024 The patient was seen and evaluated this morning. Today he is experiencing chest discomfort but he did not have any chest discomfort yesterday and the chest discomfort today has been better with morphine and [place] and does not seems to be consistent with angina and his troponin was within normal limits. No other cardiovascular symptoms. The physical examination is remarkable for regular rhythm with a systolic murmur at the right upper sternal border and apical area with a clear reading sounds bilaterally and no edema was noted in the lower extremities Assessment Syncope appears to be consistent with reflux syncope and cardiac syncope to be ruled out giving the extensive cardiac history CAD as described above Ischemic cardiomyopathy Status post right [id number] amputation Multiple comorbid conditions Chest discomfort appears to be atypical Plan Acute coronary event was ruled out and the troponin is normal and the patient was not having any chest pain or chest discomfort Follow-up with the AICD interrogation Follow-up with the patient on as needed case if the ICD interrogation did not show any abnormalities Objective - Vital Signs Vital signs: Vital Signs Temp 97.3 F L 07/19/24 07:03 Pulse 70 07/19/24 08:01 Resp 17 07/19/24 07:03 BP 124/76 07/19/24 07:03 Pulse Ox 99 07/19/24 07:46 FiO2 Intake & Output 07/18/24 07/19/24 07/19/24 18:59 06:59 18:59 Intake Total 118 Balance 118 Weight 125.191 kg Intake: Oral 118 Other: # Voids 1 2 - Labs CBC & Chem 7: 07/17/24 21:10 07/17/24 20:48 Labs: Abnormal Lab Results - Last 24 Hours (Table) 07/18/24 07/18/24 07/18/24 Range/Units 17:34 19:18 21:57 POC Glucose (mg/dL) 370 H 185 H 227 H (70-110) mg/dL 07/19/24 Range/Units 05:58 POC Glucose (mg/dL) 124 H (70-110) mg/dL
[2024-07-19 12:27] LABS: Glucose,Whole Blood 74 mg/dL (70-110)
[2024-07-19 17:53] LABS: Glucose,Whole Blood 163 mg/dL (70-110)
[2024-07-19 19:50] LABS: Glucose,Whole Blood 225 mg/dL (70-110)
[2024-07-20 05:36] LABS: Glucose,Whole Blood 284 mg/dL (70-110)
[2024-07-20 12:02] LABS: Glucose,Whole Blood 263 mg/dL (70-110)
--- NOTE | 2024-07-20 14:21 | HP ---
HISTORY AND PHYSICAL HISTORY OF PRESENT ILLNESS: A 44-year-old white male, who is admitted to the hospital. He has a past medical history of coronary artery disease, dyslipidemia, hypertension, came in with some chest pain. He was driving in the car with his brother. He had some sharp, left-sided chest pain, in his left arm and his jaw. He passed out. He woke up in the ambulance. He is admitted for chest pain similar to his prior heart pain. He has had a couple of stents placed in the last couple of months. HOME MEDICATIONS: 1. Insulin 70/30, 60 units b.i.d. 2. [place] 10 t.i.d. 3. Omeprazole 40 daily. 4. Ozempic 2 mg subcu . 5. DuoNeb t.i.d. PAST MEDICAL HISTORY: AICD, insulin-dependent diabetes mellitus, bilateral neuropathy, sleep apnea, migraines, COPD, chronic back pain. SURGICAL HISTORY: Cardiac catheterizations with a couple of stents recently. FAMILY HISTORY: Mother and father, please see orders. EKG sinus rhythm, first-degree heart block. No ST-T elevation or depression. Negative troponin. PHYSICAL EXAMINATION: CARDIOVASCULAR: S1, S2. LUNGS: Transmitted upper airway sounds. PSYCHIATRIC: Fair mood and affect. NEUROLOGIC: Alert and oriented x3. VITAL SIGNS: Reviewed. BNP is 894. Troponins are negative. ASSESSMENT: Atypical pain, syncope. Unclear. We will have Cardiology clear him prior to discharge. Re-order his home meds. Please see further orders. MMODL / IJN: [id number] /
--- NOTE | 2024-07-20 14:21 | HP ---
HISTORY AND PHYSICAL HISTORY OF PRESENT ILLNESS: A 44-year-old white male seen in the ER. Apparently, he was with his brother driving and he passed out for about 15 to 20 minutes in the car, unclear etiology. He was admitted in here to the hospital. When he came in, he was complaining of chest pain. Cardiology had seen the patient. His chest pain is similar to his prior he has had over the past 3 to 4 weeks. Cardiology evaluated him and assessment was reflex syncope and cardiac syncope, coronary artery disease, ischemic cardiomyopathy, right above knee amputations, COPD, AICD. He was evaluated. Troponins were normal. Cardiology saw him, doing further recommendations. PAST MEDICAL HISTORY: Coronary artery disease, angina, CVA, TIA, diabetes mellitus, hypertension, myocardial infarction, sleep apnea. PAST SURGICAL HISTORY: AICD, heart catheterization with stents. FAMILY HISTORY: Brother, [place]. Mother, liver disease. MEDICATIONS: Reviewed. LABORATORY DATA: White count 6.6, hemoglobin is 15 and hematocrit 38.4. Sodium 137, potassium 4.2, hemoglobin 15.4. ASSESSMENT: Atypical chest pain, syncope. Cardiology is evaluating. Further workup in progress. Continue home medications. MMODL / IJN: [id number] /
--- NOTE | 2024-07-20 14:22 | HP ---
HISTORY AND PHYSICAL HISTORY OF PRESENT ILLNESS: Comes to the hospital with syncope. He has a history of coronary disease with recent stents x2 in the last 2 weeks. Lost consciousness. He is not sure why. It had not resolved for 15 minutes. He woke up, and he was having chest pain and came to the hospital to workup per Cardiology. His sugars have been good at home, 60 units subcu b.i.d., Novolin 70/30, [place] 10 t.i.d., omeprazole 40 daily, Ozempic 2 mg subcu weekly, Entresto 24/ b.i.d. ALLERGIES: See chart. PAST MEDICAL HISTORY: History of AICD, IDDM, neuropathy, sleep apnea, migraines, chronic back pain, anxiety, depression, former smoker. FAMILY HISTORY: Mom and dad, myocardial infarction and father with liver disease. PHYSICAL EXAMINATION: VITAL SIGNS: Blood pressure 153/100 to 111/100, temp 97.4, pulse 70, respiratory rate 18. CARDIOVASCULAR: S1, S2. GENERAL: Sleepy and obtunded. GI: Soft. NEUROLOGIC: Alert and oriented x3. VASCULAR: Normal dorsalis pedis, posterior tibial. AKA right leg, presents with atypical chest pain, rule out IA, syncope. Cardiology will rule out cardiac syncope, GERD, COPD, first-degree AV block on EKG. Negative troponins. Await for Cardiology recommendation. MMODL / IJN: [id number] /
--- NOTE | 2024-07-20 14:22 | PN ---
PROGRESS NOTE Came in with chest pain, syncope of unclear etiology. This afternoon, he was asymptomatic. Cardiology did not think that the chest pain is consistent with angina. Troponin was normal. Systolic murmur at the right upper sternal border. No edema. Seemed to be consistent with reflex syncope and cardiac syncope, coronary artery disease, ischemic cardiomyopathy, right knee amputation, atypical chest pain. We will do AICD interrogation and we will then discharge him to home. MMSRAVANTHIL / IJN: [id number] /
[2024-07-20 16:47] VITALS: RESP 16
[2024-07-20 17:26] LABS: Glucose,Whole Blood 160 mg/dL (70-110)
[2024-07-20 18:58] LABS: Glucose,Whole Blood 305 mg/dL (70-110)
[2024-07-20 19:51] VITALS: BP 115/88; TEMP 97.6
[2024-07-20 21:12] VITALS: PULSE 79
[2024-07-23] MEDS ORDERED: NON FORMULARY DRUG (Semaglutide [Ozempic] 2 MG/0.75 ML Pen.Injctr) SQ SCH (09:00)
== END 2024-07-20 21:20 | disposition home or self-care (01) ==
LOC: EC 20:18 → 6NMEDSUR 23:10 → 3SCARD 07-18 12:51 → 6NMEDSUR 07-18 15:41
PROVIDERS: ADMIT Family Medicine; ATTEND Family Medicine
DX: R07.89 Other chest pain (principal); R55 Syncope and collapse; I25.10 Atherosclerotic heart disease of native coronary artery without angina pectoris; I44.0 Atrioventricular block, first degree; E11.9 Type 2 diabetes mellitus without complications; I11.0 Hypertensive heart disease with heart failure; I50.9 Heart failure, unspecified; I25.82 Chronic total occlusion of coronary artery; I25.5 Ischemic cardiomyopathy; E78.5 Hyperlipidemia, unspecified; K21.9 Gastro-esophageal reflux disease without esophagitis; J44.9 Chronic obstructive pulmonary disease, unspecified; M79.602 Pain in left arm; R68.84 Jaw pain; R11.0 Nausea; R20.2 Paresthesia of skin; G89.29 Other chronic pain; Z79.4 Long term (current) use of insulin; Z79.85 Long-term (current) use of injectable non-insulin antidiabetic drugs; Z79.82 Long term (current) use of aspirin; Z79.02 Long term (current) use of antithrombotics/antiplatelets; Z79.891 Long term (current) use of opiate analgesic; Z79.899 Other long term (current) drug therapy; Z88.0 Allergy status to penicillin; Z95.5 Presence of coronary angioplasty implant and graft; Z95.810 Presence of automatic (implantable) cardiac defibrillator; Z89.611 Acquired absence of right leg above knee; Z86.73 Personal history of transient ischemic attack (TIA), and cerebral infarction without residual deficits; Z87.891 Personal history of nicotine dependence
CPT/HCPCS: 96376 ×4; 96374; 96375; 99285; 36415; 94640 ×5; 94760; 93005; 83880; 80053; 83690; 83735; 84484 ×2; 85025; 85610; 85730; 71046; G0378 ×5; J2270 ×4; J2405

== ENCOUNTER → 2024-08-04 | Outpatient (CLI) | payer OTHER ==
--- NOTE | 2024-08-04 15:50 | XR ---
EXAMINATION TYPE: XR thoracic spine complete DATE OF EXAM: 08/04/2024 3:34 PM INDICATION: Patient age:Male; 44 years old; Reason for study: M54.6 PAIN IN THORACIC SPINE; PHH. pain COMPARISON: Chest radiograph 07/17/2024 TECHNIQUE: 3 views of the thoracic spine in Frontal, swimmer's, and lateral projections. FINDINGS: No evidence of acute fracture. There is no evidence of disk space narrowing or loss of vertebral bod y height. There is normal alignment of the thoracic vertebral bodies. Anterior osteophytosis of the l ower thoracic spine. Partial visualization of left chest cardiac power pack with single lead AICD ter minating in the region of the right ventricle. Partial visualization of prominent heart. The visualiz ed lungs are clear. Chronic elevation the right hemidiaphragm. IMPRESSION: 1. No acute osseous pathology. 2. Minimal degenerative disc disease of the lower thoracic spine. [facility], , 08/04/2024 3:47 PM
== END | disposition home or self-care (01) ==
LOC: RADXRMAIN 15:19
PROVIDERS: ATTEND Family Medicine
DX: M51.34 Other intervertebral disc degeneration, thoracic region (principal)
CPT/HCPCS: 72072

== ENCOUNTER 2024-08-29 21:56 | Inpatient (IN) | payer OTHER ==
--- NOTE | 2024-08-29 22:08 | ED ---
Chest Pain HPI - General Chief Complaint: Chest Pain Stated Complaint: Chest Pain Time Seen by Provider: 08/29/24 22:07 Source: patient, EMS, RN notes reviewed, old records reviewed Mode of arrival: EMS - History of Present Illness Initial Comments: This is a 44-year-old male to the ER for evaluation patient is well-known to our hospital he usually comes to our hospital for chest pain and chest pain situations, he was transferred to our hospital from outside emergency department for elevated troponin in the context of chest pain non-ST elevated MA MD Complaint: chest pain -: hour(s) Onset: during rest, during exertion Pain Location: substernal, left chest Pain Radiation: LUE Severity: moderate Severity scale (1-10): 4 Quality: tightness, heaviness Consistency: constant Improves With: nothing Worsens With: nothing Anginal Symptoms: sense of impending doom Other Symptoms: palpitations Treatments Prior to Arrival: none - Related Data Home Medications Medication Instructions Recorded Confirmed Lidocaine 4% Patch 1 patch TRANSDERM DAILY 05/08/24 08/30/24 HYDROcodone/APAP 10-325MG [[place] 1 tab PO TID 07/15/24 08/30/24 10-325] Omeprazole [PriLOSEC] 40 mg PO DAILY 07/15/24 08/30/24 Semaglutide [Ozempic] 2 mg SQ TH 07/15/24 08/30/24 Sacubitril/Valsartan [Entresto 24 1 tab PO BID 07/18/24 08/30/24 mg-26 mg Tablet] Previous Rx's Medication Instructions Recorded Aspirin 81 mg PO DAILY #30 07/15/21 Nitroglycerin Sl Tabs [Nitrostat] 0.4 mg SUBLINGUAL Q5M PRN #30 tab 07/15/21 Atorvastatin [Lipitor] 80 mg PO HS #30 tab 05/13/24 Ticagrelor [Brilinta] 90 mg PO BID #60 tab 05/13/24 Ipratropium-Albuterol Nebulize 3 ml INHALATION RT-TID 30 Days 06/24/24 [Duoneb 0.5 mg-3 mg/3 ml Soln] #120 each Isosorbide Mononitrate ER [Imdur] 120 mg PO DAILY 30 Days #30 tab 06/24/24 amLODIPine [Norvasc] 5 mg PO DAILY 30 Days #30 tab 06/24/24 Metoprolol Tartrate [Lopressor] 50 mg PO BID 30 Days #60 tab 07/01/24 Acetaminophen Tab [Tylenol] 650 mg PO Q6HR PRN tab 07/15/24 Colchicine [Colcrys] 0.6 mg PO DAILY 30 Days #30 each 07/15/24 Ezetimibe [Zetia] 10 mg PO DAILY 90 Days #90 tab 07/15/24 Ranolazine [Ranexa] 1,000 mg PO Q12HR 30 Days #60 tab 07/15/24 Spironolactone [Aldactone] 25 mg PO DAILY 90 Days #90 tab 07/15/24 Famotidine [Pepcid] 20 mg PO BID tab 07/19/24 Mag Hydrox/Al Hydrox/Simeth 15 ml PO Q6HR PRN ml 07/19/24 [Maalox] Dapagliflozin Propanediol [Farxiga] 10 mg PO DAILY 90 Days #90 tab 09/03/24 Fenofibrate [Lofibra] 160 mg PO DAILY 90 Days #90 tab 09/03/24 INSULIN LISPRO (HumaLOG) [HumaLOG] 0 unit SQ ACHS each 09/03/24 Insulin Glargine (Lantus) [Lantus 20 unit SQ DAILY@0700 each 09/03/24 Vial] Lactulose [Cephulac] 20 gm PO TID 30 Days #90 ml 09/03/24 Allergies Allergy/AdvReac Type Severity Reaction Status Date / Time Penicillins Allergy Unknown Verified 08/30/24 13:22 Childhood Review of Systems ROS Statement: Those systems with pertinent positive or pertinent negative responses have been documented in the HPI. ROS Other: All systems not noted in ROS Statement are negative. EKG Findings - EKG Comments: EKG Findings:: EKG is sinus 80 CO 222 QRS 80 QTc 443 - EKG Results: EKG: interpreted by ZAHEERD Past Medical History Past Medical History: Coronary Artery Disease (CAD), Chest Pain / Angina, Heart Failure, CVA/TIA, Diabetes Mellitus, Hyperlipidemia, Hypertension, Myocardial Infarction (MA), Respiratory Disorder, Sleep Apnea/CPAP/BIPAP, Syncope Additional Past Medical History / Comment(s): AICD. IDDM type II. Neuropathy bilateral feet. 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 Migraines. Chronic back pain. R ANDREA (done 2023). Last Myocardial Infarction Date:: 2023 History of Any Multi-Drug Resistant Organisms: None Reported Past Surgical History: AICD, Heart Catheterization, Heart Catheterization With Stent, Orthopedic Surgery Additional Past Surgical History / Comment(s): 10/27/12 AICD, DFTs, PCI with 2 stents, R BKA. Past Anesthesia/Blood Transfusion Reactions: No Reported Reaction Date of Last Stent Placement:: 06/28/2024 Type of Cardiac Device: AICD Device Placement Date:: 2012 Past Psychological History: Anxiety, Depression Smoking Status: Former smoker Past Alcohol Use History: None Reported Past Drug Use History: None Reported - Past Family History Mother Family Medical History: No Reported History Brother(s) Family Medical History: Myocardial Infarction (MA) Father Family Medical History: Liver Disease Sister(s) Additional Family Medical History / Comment(s): Huntings disease General Exam General appearance: alert, in no apparent distress, anxious Head exam: Present: atraumatic, normocephalic, normal inspection Eye exam: Present: normal appearance, PERRL, EOMI. Absent: scleral icterus, conjunctival injection, periorbital swelling ENT exam: Present: normal exam, mucous membranes moist Neck exam: Present: normal inspection. Absent: tenderness, meningismus, lymphadenopathy Respiratory exam: Present: normal lung sounds bilaterally. Absent: respiratory distress, wheezes, rales, rhonchi, stridor Cardiovascular Exam: Present: regular rate, normal rhythm, normal heart sounds. Absent: systolic murmur, diastolic murmur, rubs, gallop, clicks GI/Abdominal exam: Present: soft, normal bowel sounds. Absent: distended, tenderness, guarding, rebound, rigid Extremities exam: Present: normal inspection, full ROM, normal capillary refill. Absent: tenderness, pedal edema, joint swelling, calf tenderness Back exam: Present: normal inspection Neurological exam: Present: alert, oriented X3, CN II-XII intact Psychiatric exam: Present: normal affect, normal mood Skin exam: Present: warm, dry, intact, normal color. Absent: rash Course Vital Signs 08/29/24 22:02 Temperature 98.3 F Pulse Rate 85 Respiratory 18 Rate Blood Pressure 132/89 O2 Sat by Pulse 96 Oximetry - Reevaluation(s) Reevaluation #1: 08/29/24 22:23 Medical records reviewed transferring paperwork is also reviewed including troponin 44 Reevaluation #2: 08/29/24 22:23 Patient still with chest pain here in the ER Reevaluation #3: 08/29/24 22:23 Patient informed of results questions answered Reevaluation #4: Was pt. sent in by a medical professional or institution (, JAYA, LOG SCALER, urgent care, hospital, or half-way...) When possible be specific @ -no Did you speak to anyone other than the patient for history (EMS, parent, family, police, friend...)? What history was obtained from this source @ -no Did you review nursing and triage notes (agree or disagree)? Why? @ -agree Are old charts reviewed (outside hosp., previous admission, EMS record, old EKG, old radiological studies, urgent care reports/EKG's, half-way records)? Report findings @ -yes Differential Diagnosis (chest pain, altered mental status, abdominal pain women, abdominal pain men, vaginal bleeding, weakness, fever, dyspnea, syncope, headache, dizziness, GI bleed, back pain, seizure, CVA, palpatations, mental health, musculoskeletal)? @ -prior EKG interpreted by me (3pts min.). @ -yes X-rays interpreted by me (1pt min.). @ -yes negative for acute disease CT interpreted by me (1pt min.). @ -no U/S interpreted by me (1pt. min.). @ -no What testing was considered but not performed or refused? (CT, X-rays, U/S, labs)? Why? @ -none What meds were considered but not given or refused? Why? @ -none Did you discuss the management of the patient with other professionals (professionals i.e. JAYA Cruz, LOG SCALER, lab, RT, psych nurse, rn social services, solar panel technician, teacher, correctional officer sergeant, watch case polisher)? Give summary @ -no Was smoking cessation discussed for >3mins.? @ -no Was critical care preformed (if so, how long)? @ -yes31 Were there social determinants of health that impacted care today? How? (Homelessness, low income, unemployed, alcoholism, drug addiction, transportation, low edu. Level, literacy, decrease access to med. care, penitentiary, rehab)? @ -none Was there de-escalation of care discussed even if they declined (Discuss DNR or withdrawal of care, Hospice)? DNR status @ -no What co-morbidities impacted this encounter? (DM, HTN, Smoking, COPD, CAD, Cancer, CVA, ARF, Chemo, Hep., AIDS, mental health diagnosis, sleep apnea, mo rbid obesity)? @ -none Was patient admitted / discharged? Hospital course, mention meds given and route, prescriptions, significant lab abnormalities, going to OR and other pertinent info. @ - 44 male will be admitted for non-ST elevated MA chest pain history of chest pain history of severe CAD with stenting Admitted Undiagnosed new problem with uncertain prognosis? @ -no Drug Therapy requiring intensive monitoring for toxicity (Heparin, Nitro, Insulin, Cardizem)? @ -no Were any procedures done? @ -no Diagnosis/symptom? @ -Non-STEMI Acute, or Chronic, or Acute on Chronic? @ -Acute Uncomplicated (without systemic symptoms) or Complicated (systemic symptoms)? @ -Complicated Side effects of treatment? @ -no Exacerbation, Progression, or Severe Exacerbation? @ -exacerbation Poses a threat to life or bodily function? How? (Chest pain, [place], MA, pneumonia, PE, COPD, DKA, ARF, appy, cholecystitis, CVA, Diverticulitis, Homicidal, Suicidal, threat to staff... and all critical care pts) @ -yes acute non-STEMI with CAD Reevaluation #5: Differential Chest Pain: Stable Angina, Unstable Angina, STEMI, NSTEMI Aortic Dissection, Pneumothorax, Musculoskeletal, Esophageal Spasm GERD, Cholecystitis, Pancreatitis, Zoster, this is not meant to be an all-inclusive list. - Consultations Consultation #1: Spoke with Dr. Espinal who agrees to admit this patient Chest Pain MDM - [facility] 44 male will be admitted for non-ST elevated MA chest pain history of chest pain history of severe CAD with stenting Critical Care Time Critical Care Time: Yes Total Critical Care Time: 31 Disposition Clinical Impression: NSTEMI (non-ST elevated myocardial infarction) Disposition: ADMITTED IP TO THIS HOSP Condition: Serious Is patient prescribed a controlled substance at d/c from ED?: No Time of Disposition: 22:40
[2024-08-29] MEDS ORDERED: NITROGLYCERIN SL TABS 0.4 MG TAB SUBLINGUAL PRN (22:14)
[2024-08-29] MEDS: ASPIRIN 81 MG PO STA (22:27)
[2024-08-29] MEDS: ONDANSETRON 4 MG/2 ML VIAL IVP STA (22:28)
[2024-08-29] MEDS: MORPHINE SULFATE 4 MG/ML SYRINGE IV STA (22:28)
[2024-08-29] MEDS: ATORVASTATIN 80 MG TAB PO SCH (22:29)
[2024-08-29] MEDS: HEPARIN SOD,PORK IN 0.45% NACL 25,000 UNIT in 0.45% NACL 1 250ML.BAG IV SCH (22:29)
[2024-08-29] MEDS: SODIUM CHLORIDE 0.9% 1,000 ML IV STA (22:29)
[2024-08-29 22:32] LABS: Basophils # (A) 0.16 10*3/uL (0.00-0.10); Basophils % (A) 1.6 %; Eosinophils # (A) 0.32 10*3/uL (0.04-0.35); Eosinophils % (A) 3.2 %; HCT 43.8 % (39.6-50.0); HGB 14.6 g/dL (13.0-17.0); Lymphocytes # (A) 3.15 10*3/uL (0.90-5.00); Lymphocytes % (A) 31.6 %; MCHC 33.3 g/dL (32.0-37.0); MCV 71.9 fL (80.0-97.0); Mean Platelet Volume 9.4 fL (9.5-12.2); Monocytes # (A) 0.94 10*3/uL (0.20-1.00); Monocytes % (A) 9.4 %; Neutrophils # (A) 5.31 10*3/uL (1.80-7.70); Neutrophils % (A) 53.3 %; Platelet Count 296 10*3/uL (140-440); RBC 6.09 10*6/uL (4.40-5.60); RDW 15.8 % (11.5-14.5); WBC 9.97 10*3/uL (4.50-10.00)
[2024-08-29 22:50] LABS: INR 0.9 (<1.2); Prothrombin Time 10.5 sec (10.0-12.5)
[2024-08-29 22:54] LABS: ALT 16 U/L (4-49); AST 21 U/L (17-59); African American GFR (CKD) >90 (>60 ml/min/1.73 sqM); Albumin 3.6 g/dL (3.5-5.0); Alkaline Phosphatase 116 U/L (38-126); Anion Gap 11 mmol/L; Blood Urea Nitrogen 19 mg/dL (9-20); Calcium 9.1 mg/dL (8.4-10.2); Carbon Dioxide 24 mmol/L (22-30); Chloride 102 mmol/L (98-107); Glucose 185 mg/dL (74-99); Magnesium 2.1 mg/dL (1.6-2.3); Non-African American GFR(CKD) >90 (>60 ml/min/1.73 sqM); Sodium 137 mmol/L (137-145); Total Bilirubin 0.5 mg/dL (0.2-1.3); Total Protein 6.6 g/dL (6.3-8.2)
[2024-08-29 23:02] LABS: NT-Pro-B-Type Natriuretic Pept 1060 pg/mL
[2024-08-29 23:06] LABS: Glucose,Whole Blood 200 mg/dL (70-110)
[2024-08-29] MEDS ORDERED: ACETAMINOPHEN TAB 325 MG TAB PO PRN (23:49)
[2024-08-29] MEDS ORDERED: MAG HYDROX/AL HYDROX/SIMETH 30 ML CUP PO PRN ×2 (23:49)
[2024-08-30] MEDS: MORPHINE SULFATE 2 MG/ML SYRINGE IVP PRN (02:03)
[2024-08-30 06:19] LABS: Glucose,Whole Blood 253 mg/dL (70-110)
[2024-08-30] MEDS: IPRATROPIUM-ALBUTEROL 3 ML NEB INHALATION SCH (08:16)
[2024-08-30] MEDS: ASPIRIN 325 MG TAB PO SCH (09:55)
[2024-08-30] MEDS: FAMOTIDINE 20 MG TAB PO SCH (09:56)
[2024-08-30] MEDS: ASPIRIN 81 MG PO SCH (09:56)
[2024-08-30] MEDS: RANOLAZINE 500 MG TAB.ER.12H PO SCH (09:57)
[2024-08-30] MEDS: SACUBITRIL/VALSARTAN 24 MG-26 MG TABLET PO SCH (09:57)
[2024-08-30] MEDS: SPIRONOLACTONE 25 MG TAB PO SCH (09:57)
[2024-08-30] MEDS: amLODIPine 5 MG TAB PO SCH (09:57)
[2024-08-30] MEDS: COLCHICINE 0.6 MG EACH PO SCH (09:57)
[2024-08-30] MEDS: TICAGRELOR 90 MG TAB PO SCH (09:57)
[2024-08-30] MEDS: EZETIMIBE 10 MG TAB PO SCH (09:57)
[2024-08-30] MEDS: ISOSORBIDE MONONITRATE ER 60 MG TAB.ER.24H PO SCH (09:57)
[2024-08-30] MEDS: HYDROcodone/APAP 10-325MG 1 EACH TAB PO SCH (09:58)
[2024-08-30] MEDS: PANTOPRAZOLE 40 MG TABLET PO SCH (09:58)
[2024-08-30] MEDS: METOPROLOL TARTRATE 50 MG TAB PO SCH (09:58)
[2024-08-30 10:11] LABS: Chol/HDL Ratio 7.01 Ratio; HDL Cholesterol 30.1 mg/dL (40.00-60.00)
[2024-08-30 11:22] LABS: Glucose,Whole Blood 237 mg/dL (70-110)
[2024-08-30 15:32] LABS: Partial Thromboplastin Time 29.1 sec (22.0-30.0)
[2024-08-30 16:12] LABS: Glucose,Whole Blood 320 mg/dL (70-110)
[2024-08-30] MEDS: INSULIN LISPRO (HumaLOG) 100 UNIT/ML 10 mL VL SQ SCH (17:00)
--- NOTE | 2024-08-30 17:40 | P.CRDCN ---
History of Present Illness Consult date: 08/30/24 History of present illness: HISTORY OF PRESENTING ILLNESS: Patient reports that he was driving his car when he started feeling substernal chest heaviness that started suddenly. Then he asked his to drive the car however patient reports that he is not able to remember any further events in the and the next thing he remember was being found in the [facility] ER. There he was noticed to have possible right upper extremity weakness and elevated troponin for which she was sent to the [facility]. On last hospital admission patient did have a CVA with right-sided upper extremity weakness and it is unclear if his current weakness is more worse than before or somewhat similar. Patient is a poor historian and is not able to provide me these details. 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 He also has chronic chest pain, hypertension dyslipidemia and multiple comorbidities. Currently patient was here in 06/2024 with a very similar presentation that he is telling me at this time. At that time he was sitting in the car as a passenger with his when he suddenly felt warm weak and dizzy and then he had a loss of consciousness. Prior cardiac testing: Carotid Doppler 06/2023 shows no significant stenosis in bilateral carotids Brain CT from 06/2023 does not show any acute intracranial process Lexiscan stress 06/2023 large infarct involving lateral half of the left ventricle with small karthikeyan-infarct ischemia in anterior and apical segments Echo from February 2024 EF 30 to 35% severe LV dilation, moderate concentric LVH Echo from 05/2023 EF 20 to 25% inferolateral wall hypokinesia PPM wire on RA and RV, severe LA dilatation REVIEW OF SYSTEMS: 14 point review of system is negative except what is mentioned above in HPI. PHYSICAL EXAMINATION: Neck: Brisk carotid upstroke, no jugular venous distention. Lungs: Clear to auscultation. Heart: Regular rate and rhythm, S1-S2, , no murmur or rub. Abdomen: Soft nontender, positive bowel sounds. Extremities: No edema, intact distal pulses. Neuro: Alert, oritented, no focal deficits. Detailed neuro exam was not per formed. 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 with infarcted myocardium PLAN: Obtain AICD interrogation Obtain orthostatic vital signs Obtain limited echo for LVEF and LVOT evaluation Continue aspirin 81 mg, Plavix 75 mg daily, Lipitor, Zetia 10 mg At fenofibrate because of elevated TG Imdur 120 mg daily, metoprolol 50 mg twice daily Ranexa 1000 mg twice daily, Entresto 24/26 mg twice daily, Aldactone 25 mg daily, Farxiga 10 Consult neurology to rule out the possibility of CVA as the etiology of patient's symptoms Obtain Ct head w/o contast Federico Esposito MD, FACC, RPVI Thank you for allowing [facility] to participate in this patient's care. Feel free to reach out in case of any followup questions. Past Medical History Past Medical History: Coronary Artery Disease (CAD), Chest Pain / Angina, Heart Failure, CVA/TIA, Diabetes Mellitus, Hyperlipidemia, Hypertension, Myocardial Infarction ([place]), Respiratory Disorder, Sleep Apnea/CPAP/BIPAP, Syncope Additional Past Medical History / Comment(s): AICD. IDDM type II. Neuropathy bilateral feet. 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 Migraines. Chronic back pain. R BKA (done 2023). Last Myocardial Infarction Date:: 2023 History of Any Multi-Drug Resistant Organisms: None Reported Past Surgical History: AICD, Heart Catheterization, Heart Catheterization With Stent, Orthopedic Surgery Additional Past Surgical History / Comment(s): 10/27/12 AICD, DFTs, PCI with 2 stents, R BKA. Past Anesthesia/Blood Transfusion Reactions: No Reported Reaction Date of Last Stent Placement:: 06/28/2024 Type of Cardiac Device: AICD Device Placement Date:: 2012 Past Psychological History: Anxiety, Depression Smoking Status: Former smoker Past Alcohol Use History: None Reported Additional Past Alcohol Use History / Comment(s): quit in 2019 about 1/2 ppd Past Drug Use History: None Reported - Past Family History Mother Family Medical History: No Reported History Brother(s) Family Medical History: Myocardial Infarction ([place]) Father Family Medical History: Liver Disease Sister(s) Additional Family Medical History / Comment(s): Huntings disease Medications and Allergies Home Medications Medication Instructions Recorded Confirmed Type Aspirin 81 mg PO DAILY #30 07/15/21 08/30/24 Rx Nitroglycerin Sl Tabs [Nitrostat] 0.4 mg SUBLINGUAL Q5M PRN #30 tab 07/15/21 08/30/24 Rx Insulin NPH Hum/Reg Insulin Hm 60 unit SQ BID 12/07/21 08/30/24 History [humuLIN 70/30 Kwikpen] Lidocaine 4% Patch 1 patch TRANSDERM DAILY 05/08/24 08/30/24 History Atorvastatin [Lipitor] 80 mg PO HS #30 tab 05/13/24 08/30/24 Rx Ticagrelor [Brilinta] 90 mg PO BID #60 tab 05/13/24 08/30/24 Rx Ipratropium-Albuterol Nebulize 3 ml INHALATION RT-TID 30 Days 06/24/24 08/30/24 Rx [Duoneb 0.5 mg-3 mg/3 ml Soln] #120 each Isosorbide Mononitrate ER [Imdur] 120 mg PO DAILY 30 Days #30 tab 06/24/24 08/30/24 Rx amLODIPine [Norvasc] 5 mg PO DAILY 30 Days #30 tab 06/24/24 08/30/24 Rx Metoprolol Tartrate [Lopressor] 50 mg PO BID 30 Days #60 tab 07/01/24 08/30/24 Rx Acetaminophen Tab [Tylenol] 650 mg PO Q6HR PRN tab 07/15/24 08/30/24 Rx Colchicine [Colcrys] 0.6 mg PO DAILY 30 Days #30 each 07/15/24 08/30/24 Rx Ezetimibe [Zetia] 10 mg PO DAILY 90 Days #90 tab 07/15/24 08/30/24 Rx HYDROcodone/APAP 10-325MG [Humphrey 1 tab PO TID 07/15/24 08/30/24 History 10-325] Omeprazole [PriLOSEC] 40 mg PO DAILY 07/15/24 08/30/24 History Ranolazine [Ranexa] 1,000 mg PO Q12HR 30 Days #60 tab 07/15/24 08/30/24 Rx Semaglutide [Ozempic] 2 mg SQ TH 07/15/24 08/30/24 History Spironolactone [Aldactone] 25 mg PO DAILY 90 Days #90 tab 07/15/24 08/30/24 Rx Sacubitril/Valsartan [Entresto 24 1 tab PO BID 07/18/24 08/30/24 History mg-26 mg Tablet] Famotidine [Pepcid] 20 mg PO BID tab 07/19/24 08/30/24 Rx Mag Hydrox/Al Hydrox/Simeth 15 ml PO Q6HR PRN ml 07/19/24 08/30/24 Rx [Maalox] Allergies Allergy/AdvReac Type Severity Reaction Status Date / Time Penicillins Allergy Unknown Verified 08/30/24 13:22 Childhood Physical Exam Vitals: Vital Signs Temp Pulse Pulse Resp BP BP Pulse Ox 08/30/24 15:14 88 08/30/24 15:10 98.0 F 90 17 111/73 96 08/30/24 15:05 88 08/30/24 14:00 81 17 08/30/24 11:30 98.0 F 81 17 131/79 97 08/30/24 08:50 98.0 F 85 18 133/85 97 08/30/24 08:30 84 08/30/24 08:17 82 95 08/30/24 03:32 97.8 F 84 18 119/79 98 08/29/24 23:10 97.9 F 86 18 132/92 96 08/29/24 22:02 98.3 F 85 18 132/89 96 FiO2 08/30/24 15:14 08/30/24 15:10 08/30/24 15:05 08/30/24 14:00 08/30/24 11:30 08/30/24 08:50 08/30/24 08:30 08/30/24 08:17 21 08/30/24 03:32 08/29/24 23:10 08/29/24 22:02 Intake and Output 08/30/24 08/30/24 08/30/24 06:59 14:59 22:59 Intake Total 85.177 575.265 120.147 Balance 85.177 575.265 120.147 Intake: IV 50 Heparin Sod,Pork in 0.45% 50 NaCl 25,000 unit In 0.45 % NaCl 1 250ml.bag @ 7.82 UNITS/KG/HR 10.003 mls/ hr IV .Q24H [facility] Rx#: [id number] Intake, IV Titration 35.177 95.265 120.147 Amount Heparin Sod,Pork in 0.45% 35.177 95.265 120.147 NaCl 25,000 unit In 0.45 % NaCl 1 250ml.bag @ 7.82 UNITS/KG/HR 10.003 mls/ hr IV .Q24H [facility] Rx#: [id number] Oral 480 Other: Weight 127.5 kg Results 08/29/24 22:00 08/29/24 22:00 Cardiac Enzymes 08/29/24 08/29/24 08/30/24 Range/Units 22:00 22:00 01:00 AST 21 (17-59) U/L Troponin I 1.370 H* 1.170 H* (0.000-0.034) ng/mL Coagulation 08/29/24 08/30/24 08/30/24 Range/Units 22:00 01:00 08:12 PT 10.5 (10.0-12.5) sec APTT 40.0 H 26.2 27.7 (22.0-30.0) sec 08/30/24 Range/Units 14:49 PT (10.0-12.5) sec APTT 29.1 (22.0-30.0) sec Lipids 08/30/24 Range/Units 01:00 Triglycerides 1095.00 H (0.00-149.00) mg/dL Cholesterol 211.00 H (0.00-200.00) mg/dL HDL Cholesterol 30.10 L (40.00-60.00) mg/dL Cholesterol/HDL Ratio 7.01 Ratio CBC 08/29/24 Range/Units 22:00 WBC 9.97 (4.50-10.00) 10*3/uL RBC 6.09 H (4.40-5.60) 10*6/uL Hgb 14.6 (13.0-17.0) g/dL Hct 43.8 (39.6-50.0) % Plt Count 296 (140-440) 10*3/uL Comprehensive Metabolic Panel 05/10/25 Range/Units 22:00 Sodium 137 (137-145) mmol/L Potassium 4.0 (3.5-5.1) mmol/L Chloride 102 (98-107) mmol/L Carbon Dioxide 24 (22-30) mmol/L BUN 19 (9-20) mg/dL Creatinine 1.01 (0.66-1.25) mg/dL Glucose 185 H (74-99) mg/dL Calcium 9.1 (8.4-10.2) mg/dL AST 21 (17-59) U/L ALT 16 (4-49) U/L Alkaline Phosphatase 116 (38-126) U/L Total Protein 6.6 (6.3-8.2) g/dL Albumin 3.6 (3.5-5.0) g/dL Current Medications Generic Name Dose Route Start Last Admin Trade Name Freq PRN Reason Stop Dose Admin Acetaminophen 650 mg 08/29/24 23:49 Acetaminophen Tab 325 Mg Tab PO Q6HR PRN Mild Pain or Fever > 100.5 Hydrocodone Bitart/Acetaminophen 1 each 08/30/24 09:00 08/30/24 16:13 Hydrocodone/Apap 10-325mg 1 Each Tab PO 1 each TID KSEN[facility] Administration Al Hydroxide/Mg Hydroxide 15 ml 08/29/24 23:49 Mag Hydrox/Al Hydrox/Simeth 30 Ml Cup PO Q6HR PRN Indigestion Al Hydroxide/Mg Hydroxide 30 ml 08/29/24 23:49 Mag Hydrox/Al Hydrox/Simeth 30 Ml Cup PO Q4HR PRN Heartburn Albuterol/Ipratropium 3 ml 08/30/24 08:00 08/30/24 15:05 Ipratropium-Albuterol 3 Ml Neb INHALATION 3 ml RT-TID [facility] Administration Amlodipine Besylate 5 mg 08/30/24 09:00 08/30/24 09:57 Amlodipine 5 Mg Tab PO 5 mg DAILY [facility] Administration Aspirin 325 mg 08/30/24 09:00 08/30/24 09:55 Aspirin 325 Mg Tab PO Not Given DAILY [facility] Aspirin 81 mg 08/30/24 09:00 08/30/24 09:56 Aspirin 81 Mg PO 81 mg DAILY [facility] Administration Atorvastatin Calcium 80 mg 08/29/24 22:15 08/30/24 09:57 Atorvastatin 80 Mg Tab PO 80 mg DAILY [facility] Administration Atorvastatin Calcium 80 mg 08/30/24 21:00 Atorvastatin 80 Mg Tab PO HS [facility] Colchicine 0.6 mg 08/30/24 09:00 08/30/24 09:57 Colchicine 0.6 Mg Each PO 0.6 mg DAILY [facility] Administration Dapagliflozin 10 mg 08/30/24 17:45 Dapagliflozin Propanediol 10 Mg Tablet PO DAILY [facility] Ezetimibe 10 mg 08/30/24 09:00 08/30/24 09:57 Ezetimibe 10 Mg Tab PO 10 mg DAILY [facility] Administration Famotidine 20 mg 08/30/24 09:00 08/30/24 09:56 Famotidine 20 Mg Tab PO 20 mg BID [facility] Administration Fenofibrate 160 mg 08/31/24 09:00 Fenofibrate 160 Mg Tab PO DAILY [facility] Sodium Chloride 1,000 mls @ 20 mls/hr 08/29/24 22:14 08/29/24 22:29 Saline 0.9% IV 08/30/24 22:13 20 mls/hr .Q24H [facility] Administration Heparin Sodium/Sodium Chloride 250 mls @ 10.003 mls/hr 08/29/24 22:15 08/30/24 16:15 25,000 unit/ Sodium Chloride IV 16.82 units/kg/hr .Q24H [facility] 21.515 mls/hr Titration Protocol 7.82 UNITS/KG/HR Insulin Human Lispro 0 unit 08/30/24 17:30 08/30/24 17:00 Insulin Lispro (Humalog) 100 Unit/Ml 10 Ml Vl SQ 8 unit ACHS [facility] Administration Protocol Isosorbide Mononitrate 120 mg 08/30/24 09:00 08/30/24 09:57 Isosorbide Mononitrate Er 60 Mg Tab.Er.24h PO 120 mg DAILY [facility] Administration Metoprolol Tartrate 50 mg 08/30/24 09:00 08/30/24 09:58 Metoprolol Tartrate 50 Mg Tab PO 50 mg BID [facility] Administration Morphine Sulfate 2 mg 08/29/24 23:53 08/30/24 15:03 Morphine Sulfate 2 Mg/Ml Syringe IVP 2 mg Q4HR PRN Administration Pain/Discomfort Nitroglycerin 0.4 mg 08/29/24 22:14 Nitroglycerin Sl Tabs 0.4 Mg Tab SUBLINGUAL Q5M PRN Chest Pain Non-Formulary Medication 2 mg 09/03/24 09:00 Semaglutide [Ozempic] SQ TH [facility] Pantoprazole Sodium 40 mg 08/30/24 09:00 08/30/24 09:58 Pantoprazole 40 Mg Tablet PO 40 mg DAILY [facility] Administration Ranolazine 1,000 mg 08/30/24 09:00 08/30/24 09:57 Ranolazine 500 Mg Tab.Er.12h PO 1,000 mg Q12HR [facility] Administration Sacubitril/Valsartan 1 each 08/30/24 09:00 08/30/24 09:57 Sacubitril/Valsartan 24 Mg-26 Mg Tablet PO 1 each BID [facility] Administration Spironolactone 25 mg 08/30/24 09:00 08/30/24 09:57 Spironolactone 25 Mg Tab PO 25 mg DAILY [facility] Administration Ticagrelor 90 mg 08/30/24 09:00 08/30/24 09:57 Ticagrelor 90 Mg Tab PO 90 mg BID [facility] Administration Intake and Output 08/30/24 08/30/24 08/30/24 06:59 14:59 22:59 Intake Total 85.177 575.265 120.147 Balance 85.177 575.265 120.147 Intake: IV 50 Heparin Sod,Pork in 0.45% 50 NaCl 25,000 unit In 0.45 % NaCl 1 250ml.bag @ 7.82 UNITS/KG/HR 10.003 mls/ hr IV .Q24H [facility] Rx#: [id number] Intake, IV Titration 35.177 95.265 120.147 Amount Heparin Sod,Pork in 0.45% 35.177 95.265 120.147 NaCl 25,000 unit In 0.45 % NaCl 1 250ml.bag @ 7.82 UNITS/KG/HR 10.003 mls/ hr IV .Q24H [facility] Rx#: [id number] Oral 480 Other: Weight 127.5 kg 08/29/24 22:00 08/29/24 22:00
--- NOTE | 2024-08-30 18:19 | CT ---
EXAMINATION TYPE: CT brain wo con CT DLP: 1187.9 mGycm, Automated exposure control for dose reduction was used. DATE OF EXAM: 08/30/2024 6:06 PM COMPARISON: Multiple CT Brain with most recent 06/29/2024 CLINICAL INDICATION:Male, 44 years old with history of CVA, brain hemorrhage, f/u hemorrhage TECHNIQUE: Brain: Multiple axial CT images of the brain were obtained without IV contrast. . Coronal and sagitta l reformats reviewed. FINDINGS: Brain: Extra-axial spaces: No abnormal extra-axial fluid collections. Ventricular system: Within normal limits Cerebral parenchyma: No acute intraparenchymal hemorrhage or mass effect. The conteh-white junction is well differentiated. Cerebellum: Unremarkable. Mass effect: No evidence of midline shift. Intracranial vasculature: unremarkable Soft tissues: Normal. Calvarium/osseous structures: No depressed skull fracture. Paranasal sinuses and mastoid air cells: Mild scattered paranasal sinus disease. Visualized orbits: Orbital contents are intact. IMPRESSION: No acute intracranial process. [facility], , 08/30/2024 6:16 PM
[2024-08-30] MEDS: DAPAGLIFLOZIN PROPANEDIOL 10 MG TABLET PO SCH (18:33)
[2024-08-30 20:12] LABS: Glucose,Whole Blood 314 mg/dL (70-110)
[2024-08-30] MEDS: ATORVASTATIN 80 MG TAB PO SCH (20:29)
--- NOTE | 2024-08-31 00:43 | HP ---
HISTORY AND PHYSICAL HISTORY OF PRESENT ILLNESS: A 44-year-old male came to the hospital with complaint of chest pain, shortness of breath. He was transferred to the hospital from tertiary hospital for possible non-STEMI. Cardiology has been consulted. HOME MEDICATIONS: His home medications have been reordered. Meds reviewed. ALLERGIES: Penicillin. PAST MEDICAL HISTORY: Coronary artery disease, chest pain, angina, heart failure, CVA, TIA, diabetes mellitus, dyslipidemia, hypertension, myocardial fraction, obstructive sleep apnea, AICD, insulin-dependent type 2, neuropathy, migraines, chronic back pain. PAST FAMILY HISTORY: Mother, negative. Father, myocardial infarction. Father with liver disease disease. PHYSICAL EXAMINATION: VITAL SIGNS: Stable. Afebrile. Temperature 98.3, pulse 85, respiratory rate 15 to 18, blood pressure 132/89. HEENT: Normocephalic, atraumatic. Eyes, pupils equal, round, reactive. ENT, . RESPIRATORY: Mild wheeze x4. No rales or rhonchi. CARDIOVASCULAR: S1, S2. GI: Soft, nontender. EXTREMITIES: No cyanosis, clubbing, edema. Right side BKA. NEUROLOGIC: Cranial nerves intact. PSYCH: Fair mood and affect. ASSESSMENT: Non-ST elevation myocardial infarction, atypical chest pain, chronic obstructive pulmonary disease, peripheral arterial disease. Prognosis guarded. Please see further orders. Wait for Cardiology consult for chest pain. MMODL / IJN: [id number] /
[2024-08-31 05:55] LABS: Glucose,Whole Blood 249 mg/dL (70-110)
[2024-08-31 08:13] LABS: Urine Alcohol Negative (Negative); Urine Barbiturate Negative (Negative); Urine Cocaine Negative (Negative); Urine Methadone Negative (Negative); Urine Opiates Positive (Negative); Urine Phencyclidine Negative (Negative)
[2024-08-31] MEDS: FENOFIBRATE 160 MG TAB PO SCH (08:48)
--- NOTE | 2024-08-31 10:16 | HP ---
HISTORY AND PHYSICAL HISTORY OF PRESENT ILLNESS: A 44-year-old white male was transferred from [place] for chest pain. Troponin of 44. This has happened many times. He has been admitted for a non-STEMI, pain was during rest and during exertion, substernal left chest, 4/10, having is constant, impending doom. HOME MEDICATIONS: See list. REVIEW OF SYSTEMS: A 14-review of systems otherwise negative. PAST MEDICAL HISTORY: Coronary artery disease, CVA, TIA, diabetes mellitus, hypertension, dyslipidemia, myocardial infarction, sleep apnea, migraines, BiPAP, AICD, insulin-dependent type 2, heart catheterization with stents, anxiety, depression, and former smoker. FAMILY HISTORY: Please see orders. PHYSICAL EXAMINATION: VITAL SIGNS: Temperature 98.3, pulse 85, respiratory rate 18, blood pressure 132/89, pulse 76, right leg is below-knee amputation. CARDIOVASCULAR: S1, S2. LUNGS: Decreased breath sounds. HEART: S1, S2. GI: . PSYCH: Fair mood and affect. NEUROLOGIC: Alert and oriented x3. OPHTHALMOLOGIC: Pupils equal, round, and reactive. ASSESSMENT: Non-STEMI, chronic obstructive pulmonary disease, atypical chest pain. PROGNOSIS: Guarded. Please see further orders. MMODL / IJN: [id number] /
--- NOTE | 2024-08-31 10:23 | P.PN ---
Subjective HISTORY OF PRESENT ILLNESS: Patient reports that he was driving his car when he started feeling substernal chest heaviness that started suddenly. Then he asked his to drive the car however patient reports that he is not able to remember any further events in the and the next thing he remember was being found in the [facility] ER. There he was noticed to have possible right upper extremity weakness and elevated troponin for which she was sent to the [facility]. On last hospital admission patient did have a CVA with right-sided upper extremity weakness and it is unclear if his current weakness is more worse than before or somewhat similar. Patient is a poor historian and is not able to provide me these details. 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 He also has chronic chest pain, hypertension dyslipidemia and multiple comorbidities. Aleksandr miri patient was here in 06/2024 with a very similar presentation that he is telling me at this time. At that time he was sitting in the car as a passenger with his when he suddenly felt warm weak and dizzy and then he had a loss of consciousness. Prior cardiac testing: Carotid Doppler 06/2023 shows no significant stenosis in bilateral carotids Brain CT from 06/2023 does not show any acute intracranial process Lexiscan stress 06/2023 large infarct involving lateral half of the left ventr icle with small karthikeyan-infarct ischemia in anterior and apical segments Echo from February 2024 EF 30 to 35% severe LV dilation, moderate concentric LVH Echo from 05/2023 EF 20 to 25% inferolateral wall hypokinesia PPM wire on RA and RV, severe LA dilatation 08/31/2024 Patient examined this morning the bedside. Patient currently denies any shortness of breath. He reports that his chest and his neck hurt today. ICD interrogation remains pending. Vital signs are stable. Patient does report he has an appointment on November 23 at the [facility] for further evaluation of his cardiovascular disease and evaluation for heart transplant. Patient gives additional history that when he woke up at [facility] he was having difficulty with his speech. He states he was having right sided weakness in his right arm this morning is just starting to feel back to normal. He also reports that his right eye and right side of his face were drooping. PHYSICAL EXAM: VITAL SIGNS: Reviewed. GENERAL: Well-developed in no acute distress. NECK: Supple. No JVD or thyromegaly LUNGS: Respirations even and unlabored. Lungs essentially clear to auscultation bilaterally. HEART: Regular rate and rhythm. S1 and S2 heard. EXTREMITIES: Normal range of motion. No clubbing or cyanosis. Peripheral pulses intact. 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 Await results. Obtain ICD interrogation Continue telemetry monitoring Neurology has been consulted. Await evaluation Further recommendations pending patient course Nurse practitioner note has been reviewed by physician. Signing provider agrees with the documented findings, assessment, and plan of care documented by RN TRAUMA as a scribe. Objective - Vital Signs Vital signs: Vital Signs Temp 97.9 F 08/30/24 19:30 Pulse 92 08/31/24 03:58 Resp 18 08/31/24 03:58 BP 130/81 08/31/24 03:58 Pulse Ox 97 08/31/24 03:58 FiO2 21 08/30/24 08:17 Intake & Output 08/30/24 08/31/24 08/31/24 18:59 06:59 18:59 Intake Total 695.412 249.411 Output Total 400 Balance 695.412 -150.589 Weight 126.9 kg Intake: Intake, IV Titration 215.412 249.411 Amount Heparin Sod,Pork in 0.45% 215.412 249.411 NaCl 25,000 unit In 0.45 % NaCl 1 250ml.bag @ 7.82 UNITS/KG/HR 10.003 mls/ hr IV .Q24H [facility] Rx#: [id number] Oral 480 Output: Urine 400 Other: Voiding Method Toilet - Labs CBC & Chem 7: 08/29/24 22:00 08/29/24 22:00 Labs: Abnormal Lab Results - Last 24 Hours (Table) 08/30/24 08/30/24 08/30/24 Range/Units 01:00 11:20 16:11 APTT (22.0-30.0) sec POC Glucose (mg/dL) 237 H 320 H (70-110) mg/dL Triglycerides 1095.00 H (0.00-149.00) mg/dL Cholesterol 211.00 H (0.00-200.00) mg/dL VLDL Cholesterol, Calc 219.00 H (5.00-40.00) mg/dL HDL Cholesterol 30.10 L (40.00-60.00) mg/dL Urine Opiates Screen (Negative) 08/30/24 08/30/24 08/30/24 Range/Units 20:10 22:10 23:19 APTT 35.4 H (22.0-30.0) sec POC Glucose (mg/dL) 314 H (70-110) mg/dL Triglycerides (0.00-149.00) mg/dL Cholesterol (0.00-200.00) mg/dL VLDL Cholesterol, Calc (5.00-40.00) mg/dL HDL Cholesterol (40.00-60.00) mg/dL Urine Opiates Screen Positive A (Negative) 08/31/24 08/31/24 Range/Units 05:43 05:54 APTT 33.7 H (22.0-30.0) sec POC Glucose (mg/dL) 249 H (70-110) mg/dL Triglycerides (0.00-149.00) mg/dL Cholesterol (0.00-200.00) mg/dL VLDL Cholesterol, Calc (5.00-40.00) mg/dL HDL Cholesterol (40.00-60.00) mg/dL Urine Opiates Screen (Negative)
--- NOTE | 2024-08-31 10:26 | CA ---
Transthoracic Echo Report Name: Shaun Roldan Age: 44 Gender: M : 1980 Exam Date: 08/31/2024 08:16 Exam Location: [facility] Ht (in): 72 Wt (lb): 281 Ordering Physician: Federico Esposito MD ([id number]) Attending/Referring Phys: Drapery Inspector Kasey Blum, RAFFI Procedure CPT: Indications: ischemic cardiomyopathy, Cardiac Hx: 7 stents , DM Technical Quality: Good Contrast 1: Definity Total Dose (mL): 2 Contrast 2: Total Dose (mL): MEASUREMENTS (Male / Female) Normal Values 2D ECHO LV Diastolic Volume MOD BP 205.9 cm??? 67 - 155 / 56 - 104 cm??? LV Systolic Volume MOD BP 121.7 cm??? 22 - 58 / 19 - 49 cm??? LV Ejection Fraction MOD BP 40.9 % >= 55 % LV Cardiac Index MOD BP 3021.2 cm???/min???m??? LV Diastolic Volume MOD 4C 184.6 cm??? LV Systolic Volume MOD 4C 110.8 cm??? LV Ejection Fraction MOD 4C 40.0 % LV Cardiac Index MOD 4C 2645.7 cm???/min???m??? LV Diastolic Length 4C 8.7 cm LV Systolic Length 4C 8.3 cm LV Diastolic Volume MOD 2C 212.3 cm??? LV Systolic Volume MOD 2C 130.9 cm??? LV Ejection Fraction MOD 2C 38.3 % LV Cardiac Index MOD 2C 2916.3 cm???/min???m??? LV Diastolic Length 2C 9.7 cm LV Systolic Length 2C 8.0 cm DOPPLER TR Peak Velocity 303.5 cm/s TR Peak Gradient 36.9 mmHg Right Ventricular Systolic Press 41.9 mmHg FINDINGS Left Ventricle Left ventricular ejection fraction is estimated at 40-45 %. Mild to Moderately reduced global left ventricular systolic function. Right Ventricle Mild pulmonary hypertension. Right Atrium Left Atrium Mitral Valve Aortic Valve Tricuspid Valve Mild tricuspid regurgitation. Pulmonic Valve Pericardium No pleural effusion. Aorta CONCLUSIONS Technically difficult study endocardial margins were not well-seen. Echo contrast was used. There is moderate decrease in contractility globally. Previewed by: Dr. Pam Del Real MD (Electronically Signed) Final Date: 31 Aug 2024 10:26
[2024-08-31 11:32] LABS: Glucose,Whole Blood 286 mg/dL (70-110)
[2024-08-31 16:42] LABS: Glucose,Whole Blood 353 mg/dL (70-110)
--- NOTE | 2024-08-31 18:58 | P.CNNES ---
History of Present Illness Consult date: 08/31/24 Requesting physician: Federico Esposito Reason for Consult: CVA, recurrent syncope History of Present Illness: Patient is a 44-year-old right-handed male came to the hospital by ambulance day before yesterday, 08/29/2024 at 9:56 PM for chest pain, syncopal spell and possible TIA. Patient states that on the day of admission, he was driving, accompanying his , when he started having chest pain at around 4 PM. He pulled over for a minute but then his car battery . His brother came over to pick them up and it took almost 40 minutes for them to arrive. They sat in his brothers car and he started driving away when all of a sudden he felt warmth sensation behind his ears and then he woke up in [facility] about 20 minutes later. He was slurring speech, right face was droopy and less strength in the right side. As per EMS flowsheet, it appears patient is a transfer from [facility] who presented to the ED by private vehicle with chest pain and in drive to the hospital patient had an episode of unresponsiveness however once the patient arrived to the hospital, he started becoming more responsive. Patient has extensive cardiac history. Patient has a pacemaker and is also on a heart transplant list. Patient is diabetic and has not BKA on the right leg. Patient was given aspirin 324 mg and also received 7000 unit bolus of heparin and currently on heparin infusion of 15,000 units. Patient's blood test shows normal CBC, PT PTT, normal CMP, TSH. UA is negative. Urine drug screen positive for opiate. EKG showed sinus rhythm with first- degree AV block. CT head showed no acute intracranial process. I personally reviewed CT head, agree with the findings. Today patient states that he is able to move his hand more, still has decreased control of fingers of the right hand and strength is less as compared to the left. He states he feels he cannot open his right eye all the way. Patient has been seen by neurology service in April 2024 when he presented with signs of acute coronary syndrome and also had complaint of left upper extremity weakness. Patient had repeat CT head at that time which did not reveal any acute process. Patient was discharged on aspirin and Brilinta 90 mg twice daily. Patient also was again admitted on 06/28/2024 for chest pain. After patient underwent cardiac cath, he developed right vision loss and right arm weakness. Stroke code was activated at patient received TNK at that time. Patient was again discharged on aspirin and Brilinta 90 mg twice daily. Patient has smoked 1 pack/day for about 15 to 20 years, quit 10 years ago. Denies any alcohol or drugs. Review of Systems All pertinent positive and negative review of systems mentioned in the HPI. Past Medical History Past Medical History: Coronary Artery Disease (CAD), Chest Pain / Angina, Heart Failure, CVA/TIA, Diabetes Mellitus, Hyperlipidemia, Hypertension, Myocardial Infarction ([place]), Respiratory Disorder, Sleep Apnea/CPAP/BIPAP, Syncope Additional Past Medical History / Comment(s): AICD. IDDM type II. Neuropathy bilateral feet. 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 Migraines. Chronic back pain. R BKA (done 2023). Last Myocardial Infarction Date:: 2023 History of Any Multi-Drug Resistant Organisms: None Reported Past Surgical History: AICD, Heart Catheterization, Heart Catheterization With Stent, Orthopedic Surgery Additional Past Surgical History / Comment(s): 10/27/12 AICD, DFTs, PCI with 2 stents, R BKA. Past Anesthesia/Blood Transfusion Reactions: No Reported Reaction Date of Last Stent Placement:: 06/28/2024 Type of Cardiac Device: AICD Device Placement Date:: 2012 Past Psychological History: Anxiety, Depression Smoking Status: Former smoker Past Alcohol Use History: None Reported Additional Past Alcohol Use History / Comment(s): quit in 2019 about 1/2 ppd Past Drug Use History: None Reported - Past Family History Mother Family Medical History: No Reported History Brother(s) Family Medical History: Myocardial Infarction ([place]) Father Family Medical History: Liver Disease Sister(s) Additional Family Medical History / Comment(s): Huntings disease Medications and Allergies Home Medications Medication Instructions Recorded Confirmed Type Aspirin 81 mg PO DAILY #30 07/15/21 08/30/24 Rx Nitroglycerin Sl Tabs [Nitrostat] 0.4 mg SUBLINGUAL Q5M PRN #30 tab 07/15/21 08/30/24 Rx Insulin NPH Hum/Reg Insulin Hm 60 unit SQ BID 12/07/21 08/30/24 History [humuLIN 70/30 Kwikpen] Lidocaine 4% Patch 1 patch TRANSDERM DAILY 05/08/24 08/30/24 History Atorvastatin [Lipitor] 80 mg PO HS #30 tab 05/13/24 08/30/24 Rx Ticagrelor [Brilinta] 90 mg PO BID #60 tab 05/13/24 08/30/24 Rx Ipratropium-Albuterol Nebulize 3 ml INHALATION RT-TID 30 Days 06/24/24 08/30/24 Rx [Duoneb 0.5 mg-3 mg/3 ml Soln] #120 each Isosorbide Mononitrate ER [Imdur] 120 mg PO DAILY 30 Days #30 tab 06/24/24 08/30/24 Rx amLODIPine [Norvasc] 5 mg PO DAILY 30 Days #30 tab 06/24/24 08/30/24 Rx Metoprolol Tartrate [Lopressor] 50 mg PO BID 30 Days #60 tab 07/01/24 08/30/24 Rx Acetaminophen Tab [Tylenol] 650 mg PO Q6HR PRN tab 07/15/24 08/30/24 Rx Colchicine [Colcrys] 0.6 mg PO DAILY 30 Days #30 each 07/15/24 08/30/24 Rx Ezetimibe [Zetia] 10 mg PO DAILY 90 Days #90 tab 07/15/24 08/30/24 Rx HYDROcodone/APAP 10-325MG [[place] 1 tab PO TID 07/15/24 08/30/24 History 10-325] Omeprazole [PriLOSEC] 40 mg PO DAILY 07/15/24 08/30/24 History Ranolazine [Ranexa] 1,000 mg PO Q12HR 30 Days #60 tab 07/15/24 08/30/24 Rx Semaglutide [Ozempic] 2 mg SQ TH 07/15/24 08/30/24 History Spironolactone [Aldactone] 25 mg PO DAILY 90 Days #90 tab 07/15/24 08/30/24 Rx Sacubitril/Valsartan [Entresto 24 1 tab PO BID 07/18/24 08/30/24 History mg-26 mg Tablet] Famotidine [Pepcid] 20 mg PO BID tab 07/19/24 08/30/24 Rx Mag Hydrox/Al Hydrox/Simeth 15 ml PO Q6HR PRN ml 07/19/24 08/30/24 Rx [Maalox] Allergies Allergy/AdvReac Type Severity Reaction Status Date / Time Penicillins Allergy Unknown Verified 08/30/24 13:22 Childhood Physical Examination - Vital Signs Vital Signs: Vital Signs Temp Pulse Pulse Resp BP Pulse Ox 08/31/24 16:32 98.0 F 100 16 107/67 97 08/31/24 15:25 96 08/31/24 15:16 93 08/31/24 11:59 64 16 188/82 98 08/31/24 10:04 95 08/31/24 09:45 97 08/31/24 08:46 97 18 138/87 97 08/31/24 03:58 92 18 130/81 97 08/30/24 23:10 91 18 155/98 97 08/30/24 19:56 92 08/30/24 19:50 89 08/30/24 19:30 97.9 F 84 18 128/81 97 Intake and Output 08/31/24 08/31/24 08/31/24 06:59 14:59 22:59 Intake Total 249.411 420 250 Output Total 400 Balance -150.589 420 250 Intake: Intake, IV Titration 249.411 250 Amount Heparin Sod,Pork in 0.45% 249.411 250 NaCl 25,000 unit In 0.45 % NaCl 1 250ml.bag @ 7.82 UNITS/KG/HR 10.003 mls/ hr IV .Q24H [facility] Rx#: [id number] Oral 420 Output: Urine 400 Other: Voiding Method Toilet Toilet Weight 126.9 kg Patient is a middle aged male, in no acute distress. Patient is alert awake oriented to time place and person. Speech and language functions are normal. Patient can name and repeat very well. No aphasia or dysarthria. Attention, concentration and fund of knowledge is adequate. On cranial nerve examination, pupils are equal, round and reacting to light, visual hauser revealed slight visual field loss in the right upper quadrant somewhat more peripherally rather than to the midline. Extraocular muscles are intact with no nystagmus. Face is symmetric, tongue protrudes to the midline. Palatal elevation and sensation normal, hearing and shoulder shrug normal, facial sensation normal. On muscle strength testing, there is no pronator drift and the strength is normal in arms and legs distally and proximally, except right orthodontic laboratory technician which is about 4 whereas left is 5. Hip flexion equal bilaterally. Patient has right BKA Deep tendon reflexes are symmetric but very hypoactive. Sensory to touch is equal with no neglect on double simultaneous stimulation. Cerebellar function showed no ataxia for [id number] testing, but he was touching the side of the nose with his right hand. Tone and bulk of muscles normal. Gait deferred.. On general examination, there is no carotid bruit or murmur, S1-S2 audible. Chest is clear on consultation. Abdomen is soft nontender. No organomegaly, bowel sounds present. Peripheral pulses are present. Patient has right BKA. Results - Laboratory Findings CBC and BMP: 08/29/24 22:00 08/29/24 22:00 Abnormal Lab Findings: Abnormal Labs 08/29/24 08/29/24 08/29/24 22:00 22:00 22:00 RBC 6.09 H MCV 71.9 L MCH 24.0 L MPV 9.4 L Immature Gran # 0.09 H Basophils # 0.16 H APTT 40.0 H Glucose 185 H POC Glucose (mg/dL) Troponin I Triglycerides Cholesterol VLDL Cholesterol, Calc HDL Cholesterol Urine Opiates Screen 08/29/24 08/29/24 08/30/24 22:00 23:05 01:00 RBC MCV MCH MPV Immature Gran # Basophils # APTT Glucose POC Glucose (mg/dL) 200 H Troponin I 1.370 H* 1.170 H* Triglycerides Cholesterol VLDL Cholesterol, Calc HDL Cholesterol Urine Opiates Screen 08/30/24 08/30/24 08/30/24 01:00 06:18 11:20 RBC MCV MCH MPV Immature Gran # Basophils # APTT Glucose POC Glucose (mg/dL) 253 H 237 H Troponin I Triglycerides 1095.00 H Cholesterol 211.00 H VLDL Cholesterol, Calc 219.00 H HDL Cholesterol 30.10 L Urine Opiates Screen 08/30/24 08/30/24 08/30/24 16:11 20:10 22:10 RBC MCV MCH MPV Immature Gran # Basophils # APTT 35.4 H Glucose POC Glucose (mg/dL) 320 H 314 H Troponin I Triglycerides Cholesterol VLDL Cholesterol, Calc HDL Cholesterol Urine Opiates Screen 08/30/24 08/31/24 08/31/24 23:19 05:43 05:54 RBC MCV MCH MPV Immature Gran # Basophils # APTT 33.7 H Glucose POC Glucose (mg/dL) 249 H Troponin I Triglycerides Cholesterol VLDL Cholesterol, Calc HDL Cholesterol Urine Opiates Screen Positive A 08/31/24 08/31/24 08/31/24 11:32 11:48 16:40 RBC MCV MCH MPV Immature Gran # Basophils # APTT 41.3 H Glucose POC Glucose (mg/dL) 286 H 353 H Troponin I Triglycerides Cholesterol VLDL Cholesterol, Calc HDL Cholesterol Urine Opiates Screen Assessment and Plan Assessment: The patient is a 44-year-old male presented with chest pain, also had syncopal spell followed by some right-sided symptoms. Rule out stroke/TIA versus functional. 1. Possible CVA with right-sided weakness, improving. Patient has presented with similar symptoms multiple times in the past. CT head showed no recent or remote stroke. 2. NSTEMI 3. Coronary artery disease 4. Diabetes, poorly controlled 5. Obstructive sleep apnea 6. Hypertension 7. AICD placement 8. History of right BKA 9. Ex tobacco use Plan: * Patient had a carotid Doppler on 05/13/2024, which revealed no hemodynamically significant stenosis in either ICA. Antegrade flow in both vertebral art eries. No need to repeat. * Cardiology has seen the patient and agree with the workup. Patient undergoing 2D echo, ICD interrogation. We will await those results. * Patient cannot have MRI of the brain because of presence of pacemaker. * Continue dual antiplatelet therapy with aspirin and Brilinta. Continue Lipitor, amlodipine Farxiga, Zetia Imdur, metoprolol and Aldactone. Patient also on IV heparin, as per cardiology. * Lipid panel with cholesterol 211, LDL 111, HDL 30 and triglycerides 1095. Need to address hypertriglyceridemia. Patient on Lipitor 80 mg daily (home dose), also on Zetia 10 mg daily. * Hemoglobin A1c 9.4 on 06/26/2024. Recommend optimize control of diabetes to target A1c <7.0. * Continue telemetry monitoring. * 2D echo with bubble study on 05/11/2024 revealed LVEF 35%. Moderately increased left ventricular diastolic volume. Severely increased left ventricular systolic volume. Global hypokinesis. Negative agitated saline bubble study for [id number] shunt. * Repeat echo today revealed technically difficult study endocardial margins were not well-seen. Echo contrast was used. There is moderate decrease in contractility globally with LVEF 40 to 45%. * PT, OT * Neurology will follow. Thank you for the consult.
[2024-08-31 19:56] LABS: Glucose,Whole Blood 375 mg/dL (70-110)
[2024-09-01 06:20] LABS: Glucose,Whole Blood 253 mg/dL (70-110)
[2024-09-01] MEDS: INSULIN GLARGINE (LANTUS) 100 UNIT/ML SYR SQ SCH (06:23)
--- NOTE | 2024-09-01 10:51 | P.PN ---
Subjective HISTORY OF PRESENT ILLNESS: Patient reports that he was driving his car when he started feeling substernal chest heaviness that started suddenly. Then he asked his to drive the car however patient reports that he is not able to remember any further events in the and the next thing he remember was being found in the [facility] ER. There he was noticed to have possible right upper extremity weakness and elevated troponin for which she was sent to the [facility]. On last hospital admission patient did have a CVA with right-sided upper extremity weakness and it is unclear if his current weakness is more worse than before or somewhat similar. Patient is a poor historian and is not able to provide me these details. On current admission his troponin was elevated at 1.37, repeat troponin was 1.17, triglycerides 1000, LDL 111, HDL 30, Hb is 14 BP was 131/79, heart rate 81, sinus, telemetry EKG showed sinus rhythm with left bundle branch block, Q waves in anteroseptal leads with poor R wave progression He does have a history of extensive CAD with stenting of LAD, stenting of diagonal, stenting of RCA and known PNEUMATIC JACKETER of LCx and ischemic cardiomyopathy status post ICD and CVA with residual right upper extremity weakness. He also has chronic chest pain, hypertension dyslipidemia and multiple comorbidities. Aleksandr miri patient was here in 06/2024 with a very similar presentation that he is telling me at this time. At that time he was sitting in the car as a passenger with his when he suddenly felt warm weak and dizzy and then he had a loss of consciousness. Prior cardiac testing: Carotid Doppler 06/2023 shows no significant stenosis in bilateral carotids Brain CT from 06/2023 does not show any acute intracranial process Lexiscan stress 06/2023 large infarct involving lateral half of the left ventr icle with small karthikeyan-infarct ischemia in anterior and apical segments Echo from February 2024 EF 30 to 35% severe LV dilation, moderate concentric LVH Echo from 05/2023 EF 20 to 25% inferolateral wall hypokinesia PPM wire on RA and RV, severe LA dilatation 08/31/2024 Patient examined this morning the bedside. Patient currently denies any shortness of breath. He reports that his chest and his neck hurt today. ICD interrogation remains pending. Vital signs are stable. Patient does report he has an appointment on November 23 at [facility] for further evaluation of his cardiovascular disease and evaluation for heart transplant. Patient gives additional history that when he woke up at [facility] he was having difficulty with his speech. He states he was having right sided weakness in his right arm this morning is just starting to feel back to normal. He also reports that his right eye and right side of his face were drooping. Addendum entered and electronically signed by Jaimee Coppola NP-C 08/31/24 11:36: ICD interrogated. Report reviewed with no significant events reported. Will obtain limited echo to rule out intracardiac thrombus. Await neurology evaluation 09/01/2024 Patient examined this morning at the bedside. Patient currently denies shortness of breath. He continues to report chest pain although it is improved from yesterday he states. No episodes of dizziness or further syncope. ICD interrogated yesterday without any events. Echocardiogram completed revealing ejection fraction 40 to 45% without evidence of thrombus. PHYSICAL EXAM: VITAL SIGNS: Reviewed. GENERAL: Well-developed in no acute distress. NECK: Supple. No JVD or thyromegaly LUNGS: Respirations even and unlabored. Lungs essentially clear to auscultation bilaterally. HEART: Regular rate and rhythm. S1 and S2 heard. EXTREMITIES: Normal range of motion. No clubbing or cyanosis. Right BKA ASSESSMENT: Questionable syncope with loss of consciousness Reported right sided weakness and right facial droop, rule out TIA/CVA Non-STEMI Coronary artery disease with previous stenting Known residual PNEUMATIC JACKETER of left circumflex with infarcted myocardium Ischemic cardiomyopathy, 30% History of ICD implantation History of CVA History of right BKA Diabetes Medication noncompliance PLAN: Continue dual antiplatelet therapy with aspirin and Brilinta Continue additional cardiac medications including amlodipine, Lipitor, Farxiga, Zetia, Imdur, metoprolol, Ranexa, Entresto, Aldactone Patient started on fenofibrate yesterday. Will continue to monitor triglycerides outpatient. If they remain elevated, will consider adding Vascepa Continue IV heparin for an additional 24 hours ICD interrogated without any acute events noted Continue telemetry monitoring Patient reveals today that he has not been taking his Lipitor on an outpatient basis because he ran out. He states he did not attempt to call the cardiology office to have this refilled. Medication compliance was reinforced with the patient. Await further recommendations from neurology Further recommendations pending patient course Nurse practitioner note has been reviewed by physician. Signing provider agrees with the documented findings, assessment, and plan of care documented by ASSEMBLER CATERPILLAR SPIDER as a scribe. Objective - Vital Signs Vital signs: Vital Signs Temp 97.3 F L 09/01/24 09:49 Pulse 97 09/01/24 09:49 Resp 15 09/01/24 09:49 BP 146/91 09/01/24 09:49 Pulse Ox 99 09/01/24 09:49 FiO2 21 08/30/24 08:17 Intake & Output 08/31/24 09/01/24 09/01/24 18:59 06:59 18:59 Intake Total 850 259.928 10 Output Total 300 Balance 550 259.928 10 Weight 126.9 kg Intake: IV 20 10 Invasive Line 2 10 Invasive Line 3 10 10 Intake, IV Titration 250 239.928 Amount Heparin Sod,Pork in 0.45% 250 239.928 NaCl 25,000 unit In 0.45 % NaCl 1 250ml.bag @ 7.82 UNITS/KG/HR 10.003 mls/ hr IV .Q24H [facility] Rx#: [id number] Oral 600 Output: Urine 300 Other: Voiding Method Toilet Toilet Toilet # Voids 3 - Labs CBC & Chem 7: 08/29/24 22:00 08/29/24 22:00 Labs: Abnormal Lab Results - Last 24 Hours (Table) 08/31/24 08/31/24 08/31/24 Range/Units 11:32 11:48 16:40 APTT 41.3 H (22.0-30.0) sec POC Glucose (mg/dL) 286 H 353 H (70-110) mg/dL 08/31/24 09/01/24 09/01/24 Range/Units 19:53 05:56 06:18 APTT 52.3 H (22.0-30.0) sec POC Glucose (mg/dL) 375 H 253 H (70-110) mg/dL
[2024-09-01 11:49] LABS: Glucose,Whole Blood 265 mg/dL (70-110)
[2024-09-01] MEDS ORDERED: fentaNYL (PF) 50 MCG/ML 5 ML AMP IVP PRN (12:56)
[2024-09-01] MEDS ORDERED: ALPRAZolam 0.25 MG TAB PO PRN (12:57)
[2024-09-01] MEDS ORDERED: NITROGLYCERIN SL TABS 0.4 MG TAB SUBLINGUAL PRN (12:57)
[2024-09-01] MEDS ORDERED: ALPRAZolam 0.5 MG TAB PO PRN (12:57)
[2024-09-01] MEDS: LACTULOSE 20 GM/30 ML CUP PO SCH (15:03)
[2024-09-01 16:44] LABS: Glucose,Whole Blood 266 mg/dL (70-110)
[2024-09-01 20:04] LABS: Glucose,Whole Blood 286 mg/dL (70-110)
[2024-09-01] MEDS: MORPHINE SULFATE 4 MG/ML SYRINGE IVP PRN (20:11)
[2024-09-01] MEDS: SODIUM CHLORIDE 0.9% 1,000 ML in EMPTY BAG 1 BAG IV SCH (23:30)
[2024-09-02] MEDS: ASPIRIN 325 MG TAB PO ONE (05:30)
[2024-09-02] MEDS: ATORVASTATIN 80 MG TAB PO ONE (05:30)
[2024-09-02 06:30] LABS: Glucose,Whole Blood 273 mg/dL (70-110)
[2024-09-02] MEDS ORDERED: HEPARIN SODIUM,PORCINE (1 ML) 2,500 UNIT in SODIUM CHLORIDE 0.9% 250 ML IRRIGATION PRN (07:00)
[2024-09-02] MEDS ORDERED: HEPARIN SODIUM,PORCINE 10,000 UNIT in SODIUM CHLORIDE 0.9% 1,000 ML IRRIGATION PRN (07:00)
--- NOTE | 2024-09-02 08:24 | PN ---
PROGRESS NOTE SUBJECTIVE: A 44-year-old white male, who is supposed to get a heart catheterization tomorrow and a transesophageal echo, possible discharge if all that is clear. He possibly had a stroke, but he is now back to normal. Then, he had an MRI at this time due to cardiac stents, they recommend a transesophageal echo, which can be done tomorrow. If controlled, he is up and ambulating. OBJECTIVE: VITAL SIGNS: Stable. Afebrile. HEMATOLOGY: Negative Homans. PSYCH: Fair mood and affect NEUROLOGIC: Alert and oriented x3. CARDIOVASCULAR: S1, S2. LUNGS: Transmitted upper airway sounds. VITAL SIGNS: Blood pressure 119/62, O2 96% on room air, pulse 106, and temperature 98.2. ASSESSMENT AND PLAN: Atypical chest pain, syncope versus seizure versus TIA and CVA. Echo showed 20% better ejection fraction. Transesophageal echo and a heart catheterization tomorrow by Cardiology. If that is good, we will transfer him for discharge planning. Prognosis guarded. MMODL / IJN: [id number] /
--- NOTE | 2024-09-02 09:20 | P.PN ---
Subjective Progress Note Date: 09/01/24 Patient was seen for follow-up. Denies any new neurological symptoms. Patient is sitting comfortably in the bed having his dinner. Objective - Vital Signs Vital signs: Vital Signs Temp 97.3 F L 09/01/24 09:49 Pulse 88 09/01/24 15:23 Resp 16 09/01/24 15:04 BP 106/56 09/01/24 15:04 Pulse Ox 96 09/01/24 15:04 FiO2 21 08/30/24 08:17 Intake & Output 08/31/24 09/01/24 09/01/24 18:59 06:59 18:59 Intake Total 850 336.254 3162 Output Total 300 Balance 550 977.476 8196 Weight 126.9 kg Intake: IV 20 20 Invasive Line 2 10 Invasive Line 3 10 20 Intake, IV Titration 250 239.928 Amount Heparin Sod,Pork in 0.45% 250 239.928 NaCl 25,000 unit In 0.45 % NaCl 1 250ml.bag @ 7.82 UNITS/KG/HR 10.003 mls/ hr IV .Q24H KSENIA Rx#: [id number] Oral 600 1312 Output: Urine 300 Other: Voiding Method Toilet Toilet Toilet # Voids 3 - Exam Patient's strength is almost back to baseline. 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 Rest of the examination is nonfocal. - Labs CBC & Chem 7: 08/29/24 22:00 08/29/24 22:00 Labs: Abnormal Lab Results - Last 24 Hours (Table) 08/31/24 09/01/24 09/01/24 Range/Units 19:53 05:56 06:18 APTT 52.3 H (22.0-30.0) sec POC Glucose (mg/dL) 375 H 253 H (70-110) mg/dL 09/01/24 09/01/24 Range/Units 11:47 16:40 APTT (22.0-30.0) sec POC Glucose (mg/dL) 265 H 266 H (70-110) mg/dL Assessment and Plan Assessment: The patient is a 44-year-old male presented with chest pain, also had syncopal spell followed by some right-sided symptoms. Rule out stroke/TIA versus functional. 1. Possible CVA with right-sided weakness, improving. Patient has presented with similar symptoms multiple times in the past. CT head showed no recent or remote stroke. 2. NSTEMI 3. Coronary artery disease 4. Diabetes, poorly controlled 5. Obstructive sleep apnea 6. Hypertension 7. AICD placement 8. History of right BKA 9. Ex tobacco use Plan: * Patient had a carotid Doppler on 05/13/2024, which revealed no hemodynamically significant stenosis in either ICA. Antegrade flow in both vertebral arteries. No need to repeat. * Cardiology has seen the patient and agree with the workup. Patient had undergone, which did not reveal any arrhythmia ICD interrogation per cardiology. * For recurrent focal neurological symptoms, suggest transesophageal echocardiogram. Discussed with cardiology and patient will undergo TAYLOR in the morning. * Patient cannot have MRI of the brain because of presence of pacemaker. * Continue dual antiplatelet therapy with aspirin and Brilinta. Continue Lipitor, amlodipine Farxiga, Zetia Imdur, metoprolol and Aldactone. Patient also on IV heparin, as per cardiology. * Lipid panel with cholesterol 211, LDL 111, HDL 30 and triglycerides 1095. Need to address hypertriglyceridemia. Patient on Lipitor 80 mg daily (home dose), also on Zetia 10 mg daily. * Hemoglobin A1c 9.4 on 06/26/2024. Recommend optimize control of diabetes to target A1c <7.0. * Continue telemetry monitoring. * 2D echo with bubble study on 05/11/2024 revealed LVEF 35%. Moderately in creased left ventricular diastolic volume. Severely increased left ventricular systolic volume. Global hypokinesis. Negative agitated saline bubble study for [id number] shunt. * Repeat echo 09/01/2024 revealed technically difficult study endocardial margins were not well-seen. Echo contrast was used. There is moderate decrease in contractility globally with LVEF 40 to 45%. * PT, OT * Neurologically clear, if the TAYLOR comes back normal.
[2024-09-02 11:00] LABS: Glucose,Whole Blood 202 mg/dL (70-110)
--- NOTE | 2024-09-02 11:45 | P.PN ---
Subjective HISTORY OF PRESENT ILLNESS: Patient reports that he was driving his car when he started feeling substernal chest heaviness that started suddenly. Then he asked his to drive the car however patient reports that he is not able to remember any further events in the and the next thing he remember was being found in the [facility] ER. There he was noticed to have possible right upper extremity weakness and elevated troponin for which she was sent to the [facility]. On last hospital admission patient did have a CVA with right-sided upper extremity weakness and it is unclear if his current weakness is more worse than before or somewhat similar. Patient is a poor historian and is not able to provide me these details. 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 He also has chronic chest pain, hypertension dyslipidemia and multiple comorbidities. Aleksandr miri patient was here in 06/2024 with a very similar presentation that he is telling me at this time. At that time he was sitting in the car as a passenger with his when he suddenly felt warm weak and dizzy and then he had a loss of consciousness. Prior cardiac testing: Carotid Doppler 06/2023 shows no significant stenosis in bilateral carotids Brain CT from 06/2023 does not show any acute intracranial process Lexiscan stress 06/2023 large infarct involving lateral half of the left ventr icle with small karthikeyan-infarct ischemia in anterior and apical segments Echo from February 2024 EF 30 to 35% severe LV dilation, moderate concentric LVH Echo from 05/2023 EF 20 to 25% inferolateral wall hypokinesia PPM wire on RA and RV, severe LA dilatation 08/31/2024 Patient examined this morning the bedside. Patient currently denies any shortness of breath. He reports that his chest and his neck hurt today. ICD interrogation remains pending. Vital signs are stable. Patient does report he has an appointment on November 23 at the [facility] for further evaluation of his cardiovascular disease and evaluation for heart transplant. Patient gives additional history that when he woke up at [facility] he was having difficulty with his speech. He states he was having right sided weakness in his right arm this morning is just starting to feel back to normal. He also reports that his right eye and right side of his face were drooping. Addendum entered and electronically signed by Jaimee Coppola NP-C 08/31/24 11:36: ICD interrogated. Report reviewed with no significant events reported. Will obtain limited echo to rule out intracardiac thrombus. Await neurology evaluation 09/01/2024 Patient examined this morning at the bedside. Patient currently denies shortness of breath. He continues to report chest pain although it is improved from yesterday he states. No episodes of dizziness or further syncope. ICD interrogated yesterday without any events. Echocardiogram completed revealing ejection fraction 40 to 45% without evidence of thrombus. 09/02/2024 Patient examined this morning's bedside. Patient currently denies chest pain or pressure. He denies shortness of breath. PHYSICAL EXAM: VITAL SIGNS: Reviewed. GENERAL: Well-developed in no acute distress. NECK: Supple. No JVD or thyromegaly LUNGS: Respirations even and unlabored. Lungs essentially clear to auscultation bilaterally. HEART: Regular rate and rhythm. S1 and S2 heard. EXTREMITIES: Normal range of motion. No clubbing or cyanosis. Right BKA ASSESSMENT: Questionable syncope with loss of consciousness Reported right sided weakness and right facial droop, rule out TIA/CVA Non-STEMI Coronary artery disease with previous stenting Known residual BLAST HOLE DRILLER of left circumflex with infarcted myocardium Ischemic cardiomyopathy, 30% History of ICD implantation History of CVA History of right BKA Diabetes Medication noncompliance PLAN: Continue dual antiplatelet therapy with aspirin and Brilinta Continue additional cardiac medications including amlodipine, Lipitor, Farxiga, Zetia, Imdur, metoprolol, Ranexa, Entresto, Aldactone Patient started on fenofibrate during this admission. Will continue to monitor triglycerides outpatient. If they remain elevated, will consider adding Vascepa Discontinue IV heparin ICD interrogated without any acute events noted Continue telemetry monitoring Patient reveals that he has not been taking his Lipitor on an outpatient basis because he ran out. He states he did not attempt to call the cardiology office to have this refilled. Medication compliance was reinforced with the patient. Case discussed with neurology yesterday. Patient will undergo TAYLOR today. If TAYLOR is unremarkable we will proceed with cardiac catheterization. Further recommendations pending patient course Nurse practitioner note has been reviewed by physician. Signing provider agrees with the documented findings, assessment, and plan of care documented by HOSPITAL SECURITY OFFICER as a scribe. Objective - Vital Signs Vital signs: Vital Signs Temp 98.1 F 09/02/24 11:40 Pulse 95 09/02/24 11:40 Resp 18 09/02/24 04:00 BP 112/71 09/02/24 11:40 Pulse Ox 94 L 09/02/24 11:40 FiO2 21 08/30/24 08:17 Intake & Output 09/01/24 09/02/24 09/02/24 18:59 06:59 18:59 Intake Total 2061 Balance 2061 Weight 126.8 kg Intake: IV 20 Invasive Line 3 20 Intake, IV Titration 250 Amount Heparin Sod,Pork in 0.45% 250 NaCl 25,000 unit In 0.45 % NaCl 1 250ml.bag @ 7.82 UNITS/KG/HR 10.003 mls/ hr IV .Q24H KSENIA Rx#: [id number] Oral 1792 Other: Voiding Method Toilet Toilet # Voids 2 0 - Labs CBC & Chem 7: 08/29/24 22:00 08/29/24 22:00 Labs: Abnormal Lab Results - Last 24 Hours (Table) 09/01/24 09/01/24 09/01/24 Range/Units 11:47 16:40 20:02 APTT (22.0-30.0) sec POC Glucose (mg/dL) 265 H 266 H 286 H (70-110) mg/dL 09/02/24 09/02/24 09/02/24 Range/Units 06:29 06:39 10:59 APTT 45.7 H (22.0-30.0) sec POC Glucose (mg/dL) 273 H 202 H (70-110) mg/dL
[2024-09-02] MEDS: IV FLUID CONTINUATION 1,000 ML IV ONE ×2 (13:03→13:20)
[2024-09-02] MEDS: BENZOCAINE SPRAY 1 EACH MM ONE ×2 (13:05→13:08)
[2024-09-02] MEDS: MIDAZOLAM 2 MG/2 ML VIAL IVP ONE (13:07)
[2024-09-02] MEDS: fentaNYL (PF) 50 MCG/ML 2 ML AMP IVP ONE (13:07)
[2024-09-02] MEDS: MIDAZOLAM 2 MG/2 ML VIAL IV PRN (13:10)
--- NOTE | 2024-09-02 13:16 | P.PCN ---
Date of Procedure: 09/02/24 Operative Findings: TRANSESOPHAGEAL ECHOCARDIOGRAM SAFETY LAMP KEEPER: DENYS HANKS MD, RPVI INDICATION: Rule out cardiac source of embolization SEDATION: Conscious sedation COMPLICATION: None LEVEL OF SEDATION Moderate to sedation length of 12 PROCEDURE DESCRIPTION: After obtaining an informed consent, the patient was brought to transesophageal echocardiogram room. Pulse oximetry and heart monitors were attached to the patient. The patient throat was sprayed using lidocaine. The patient was turned into left lateral position. After that a bite guard was placed. After an appropriate conscious sedation was initiated, the transesophageal echocardiogram was advanced through a bite guard into the mid esophagus. A 2-D echocardiogram images, color Doppler images, continuous wave images, pulse-wave images, of various cardiac structure were performed. After that the transesophageal echocardiogram probe was advanced into the stomach and fixed to obtain transgastric view was. The probe was brought into the mid esophagus. Inter-atrial septum was interrogated using 2D images, color Doppler images, and then contrast study. After that transesophageal echocardiogram was withdrawn out and upon withdrawing the descending thoracic aorta all the way up to the arch was evaluated. CONCLUSION: 1. No evidence of cardiac source of embolization 2. Intact left atrial appendage with no shunt 3. Intact intracardiac valves with no evidence of vegetation 4. No pericardial effusion 5. Intact left atrial appendage 6. Cardiomyopathy with EF between 25 to 30%
[2024-09-02] MEDS: HEPARIN SODIUM,PORCINE (1 ML) 2,500 UNIT in SODIUM CHLORIDE 0.9% 250 ML IRRIGATION ONE (13:21)
[2024-09-02] MEDS: HEPARIN SODIUM (1,000 UNIT/ML) 1,000 UNIT in SODIUM CHLORIDE 0.9% 1,000 ML IRRIGATION ONE (13:21)
[2024-09-02] MEDS: LIDOCAINE 1% INJ 10MG/ML (20 ML MDV) SQ ONE (13:24)
[2024-09-02] MEDS: IOPAMIDOL-370 100ML BTL INJ ONE (13:39)
[2024-09-02] MEDS ORDERED: RX INFO: IV CONTRAST WAS GIVEN 1 EACH MISC MISCELLANE PRN (13:40)
--- NOTE | 2024-09-02 13:43 | P.PCN ---
Date of Procedure: 09/02/24 Operative Findings: CARDIAC CATHETERIZATION PERFORMING PHYSICIAN: Damion Hernandez MD, RPVI PROCEDURE PERFORMED: 1. Selective right and left coronary angiogram 2. Left heart catheterization 3. Ultrasound-guided access of the right common femoral artery and selective right common femoral artery angiogram INDICATION: Acute non-ST ovation myocardial infarction COMPLICATION: None APPROACH: Right common femoral artery LEVEL OF SEDATION: Moderate with sedation in length of 16 minutes PROCEDURE DESCRIPTION: After obtaining an informed consent, the patient was brought to cardiac soap slabber. Local anesthesia was performed using lidocaine subcutaneously. The right common femoral artery was cannulated using micropuncture technique under ultrasound guidance the guidewire passed easily, following that we advanced a 6 Salvadorean sheath dilator assembly, the wire and dilator were removed and sheath was flushed. Selective right and left coronary angiogram using a 6-Salvadorean JR4 and JL catheters. Following that we did left heart catheterization using 6-Salvadorean pigtail catheter. The procedure was completed there was no complication. SELECTIVE CORONARY ANGIOGRAM: The right coronary artery: Is occluded distally with multiple layers of stent occlusion Left main: Has mild disease only The left circumflex: Chronically occluded and has an old finding from before The left anterior descending artery: The stents in the mid LAD appeared to be patent with KUMAR-3 flow in the LAD and diagonal branch HEMODYNAMICS: The LVEDP was 16 mmHg with no significant gradient across aortic valve CONCLUSION: 1. Patent stent in the LAD/diagonal bifurcation with no evidence of high-grade stenosis with KUMAR-3 flow 2. 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 Occluded distal RCA which is a new finding from before with multiple layers of stents and known nonviable inferior myocardium POSTPROCEDURE MANAGEMENT: Medical treatment
[2024-09-02] MEDS: SODIUM CHLORIDE 0.9% 1,000 ML IV SCH (14:00)
[2024-09-02 16:17] LABS: Glucose,Whole Blood 235 mg/dL (70-110)
[2024-09-02 20:36] LABS: Glucose,Whole Blood 280 mg/dL (70-110)
[2024-09-03 01:06] VITALS: TEMP 97.6
--- NOTE | 2024-09-03 05:46 | PN ---
PROGRESS NOTE SUBJECTIVE: 44-year-old white male, who is supposed to have a TAYLOR and a heart cath today. He was cleared from nursing. He possibly can go home. He is up ambulating. His right arm strength is back to normal. OBJECTIVE: CARDIOVASCULAR: S1, S2. LUNGS: Transmitted upper airway sounds. GI: Soft. HEMATOLOGY: Negative Homans. EXTREMITIES: Right BKA. Probable CVA due to noncompliance of medicine. Possibly has syncope, loss of consciousness. Has right-sided weakness. Right facial droop is improved. Possible non-STEMI. He has coronary artery disease with multiple stents. Cardiomyopathy is improved from 35% to 45%. Right BKA, diabetes. Continue current treatment. with the patient. Possibly go home after TAYLOR and heart cath if normal. MMODL / IJN: [id number] /
[2024-09-03 05:50] LABS: Glucose,Whole Blood 218 mg/dL (70-110)
[2024-09-03 07:48] LABS: Basophils % (A) 1.3 %; Eosinophils # (A) 0.28 10*3/uL (0.04-0.35); Eosinophils % (A) 3.8 %; HCT 45.4 % (39.6-50.0); HGB 14.4 g/dL (13.0-17.0); Lymphocytes # (A) 2.05 10*3/uL (0.90-5.00); Lymphocytes % (A) 27.6 %; MCH 23.4 pg (27.0-32.0); MCHC 31.7 g/dL (32.0-37.0); MCV 73.8 fL (80.0-97.0); Mean Platelet Volume 9.4 fL (9.5-12.2); Monocytes % (A) 8.1 %; Neutrophils # (A) 4.35 10*3/uL (1.80-7.70); Neutrophils % (A) 58.4 %; Platelet Count 246 10*3/uL (140-440); RBC 6.15 10*6/uL (4.40-5.60); RDW 16.4 % (11.5-14.5); WBC 7.44 10*3/uL (4.50-10.00)
[2024-09-03 08:06] LABS: ALT 132 U/L (4-49); AST 164 U/L (17-59); African American GFR (CKD) 84 (>60 ml/min/1.73 sqM); Albumin 3.7 g/dL (3.5-5.0); Alkaline Phosphatase 135 U/L (38-126); Anion Gap 10 mmol/L; Blood Urea Nitrogen 18 mg/dL (9-20); Calcium 8.8 mg/dL (8.4-10.2); Carbon Dioxide 24 mmol/L (22-30); Chloride 106 mmol/L (98-107); Glucose 244 mg/dL (74-99); Non-African American GFR(CKD) 73 (>60 ml/min/1.73 sqM); Potassium 4.3 mmol/L (3.5-5.1); Sodium 140 mmol/L (137-145); Total Bilirubin 0.9 mg/dL (0.2-1.3); Total Protein 6.7 g/dL (6.3-8.2)
[2024-09-03] MEDS: ASPIRIN 81 MG PO SCH (08:36)
--- NOTE | 2024-09-03 09:59 | P.PN ---
Subjective HISTORY OF PRESENT ILLNESS: Patient reports that he was driving his car when he started feeling substernal chest heaviness that started suddenly. Then he asked his to drive the car however patient reports that he is not able to remember any further events in the and the next thing he remember was being found in the [facility] ER. There he was noticed to have possible right upper extremity weakness and elevated troponin for which she was sent to the [facility]. On last hospital admission patient did have a CVA with right-sided upper extremity weakness and it is unclear if his current weakness is more worse than before or somewhat similar. Patient is a poor historian and is not able to provide me these details. 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 He also has chronic chest pain, hypertension dyslipidemia and multiple comorbidities. Aleksandr miri patient was here in 06/2024 with a very similar presentation that he is telling me at this time. At that time he was sitting in the car as a passenger with his when he suddenly felt warm weak and dizzy and then he had a loss of consciousness. Prior cardiac testing: Carotid Doppler 06/2023 shows no significant stenosis in bilateral carotids Brain CT from 06/2023 does not show any acute intracranial process Lexiscan stress 06/2023 large infarct involving lateral half of the left ventr icle with small karthikeyan-infarct ischemia in anterior and apical segments Echo from February 2024 EF 30 to 35% severe LV dilation, moderate concentric LVH Echo from 05/2023 EF 20 to 25% inferolateral wall hypokinesia PPM wire on RA and RV, severe LA dilatation 08/31/2024 Patient examined this morning the bedside. Patient currently denies any shortness of breath. He reports that his chest and his neck hurt today. ICD interrogation remains pending. Vital signs are stable. Patient does report he has an appointment on November 23 at the [facility] for further evaluation of his cardiovascular disease and evaluation for heart transplant. Patient gives additional history that when he woke up at [facility] he was having difficulty with his speech. He states he was having right sided weakness in his right arm this morning is just starting to feel back to normal. He also reports that his right eye and right side of his face were drooping. Addendum entered and electronically signed by Jiamee Coppola NP-C 08/31/24 11:36: ICD interrogated. Report reviewed with no significant events reported. Will obtain limited echo to rule out intracardiac thrombus. Await neurology evaluation 09/01/2024 Patient examined this morning at the bedside. Patient currently denies shortness of breath. He continues to report chest pain although it is improved from yesterday he states. No episodes of dizziness or further syncope. ICD interrogated yesterday without any events. Echocardiogram completed revealing ejection fraction 40 to 45% without evidence of thrombus. 09/02/2024 Patient examined this morning's bedside. Patient currently denies chest pain or pressure. He denies shortness of breath. 09/03/2024 Patient is status post TAYLOR yesterday with no evidence of cardiac source of embolization, intact intra atrial appendage with no shunt, intact intracardiac valves with no evidence of vegetation, no pericardial effusion, intact left atrial appendage. Patient also underwent cardiac catheterization revealing patent stent in the LAD/diagonal bifurcation with no evidence of high-grade stenosis, ALUMINUM POURER of the left circumflex which is a known finding from before, occluded distal RCA which is a new finding from before with multiple layers of stents and known nonviable inferior myocardium. Medical management was recommended. Patient examined this morning at bedside. Patient currently denies any chest pain or pressure. He denies any shortness of breath. Vital signs are stable. PHYSICAL EXAM: VITAL SIGNS: Reviewed. GENERAL: Well-developed in no acute distress. NECK: Supple. No JVD or thyromegaly LUNGS: Respirations even and unlabored. Lungs essentially clear to auscultation bilaterally. HEART: Regular rate and rhythm. S1 and S2 heard. EXTREMITIES: Normal range of motion. No clubbing or cyanosis. Right BKA ASSESSMENT: Questionable syncope with loss of consciousness Reported right sided weakness and right facial droop, rule out TIA/CVA Non-STEMI status post cardiac catheterization revealing occluded distal RCA which is a new finding from before Coronary artery disease with previous stenting Known residual ALUMINUM POURER of left circumflex with infarcted myocardium Ischemic cardiomyopathy, 30% History of ICD implantation History of CVA History of right BKA Diabetes Medication noncompliance PLAN: Continue dual antiplatelet therapy with aspirin and Brilinta Continue additional cardiac medications including amlodipine, Lipitor, Farxiga, Zetia, Imdur, metoprolol, Ranexa, Entresto, Aldactone Patient started on fenofibrate during this admission. Will continue to monitor triglycerides outpatient. If they remain elevated, will consider adding Vascepa Patient reveals that he has not been taking his Lipitor on an outpatient basis because he ran out. He states he did not attempt to call the cardiology office to have this refilled. Medication compliance was reinforced with the patient. Patient is stable for discharge home today from a cardiac standpoint Patient has evaluation at [facility] scheduled. Patient encouraged to keep this appointment Patient to follow-up in the office with Dr. Hernandez. Nurse practitioner note has been reviewed by physician. Signing provider agrees with the documented findings, assessment, and plan of care documented by MANAGEMENT EXPERT as a scribe. Objective - Vital Signs Vital signs: Vital Signs Temp 97.6 F 09/03/24 05:00 Pulse 85 09/03/24 08:39 Resp 18 09/03/24 08:39 BP 123/79 09/03/24 08:39 Pulse Ox 96 09/03/24 08:39 FiO2 21 08/30/24 08:17 Intake & Output 09/02/24 09/03/24 09/03/24 18:59 06:59 18:59 Intake Total 930 720 Balance 930 720 Weight 56.841 kg Intake: IV 150 Intake, IV Titration 600 Amount Sodium Chloride 0.9% 1, 600 000 ml @ 75 mls/hr IV . [id number] KSENIA Rx#:[id number] Oral 180 720 Other: Voiding Method Toilet Toilet # Voids 0 1 - Labs CBC & Chem 7: 09/03/24 06:19 09/03/24 06:19 Labs: Abnormal Lab Results - Last 24 Hours (Table) 09/02/24 09/02/24 09/02/24 Range/Units 10:59 16:16 20:35 RBC (4.40-5.60) 10*6/uL MCV (80.0-97.0) fL MCH (27.0-32.0) pg MCHC (32.0-37.0) g/dL MPV (9.5-12.2) fL Immature Gran # (0.00-0.04) 10*3/uL Glucose (74-99) mg/dL POC Glucose (mg/dL) 202 H 235 H 280 H (70-110) mg/dL AST (17-59) U/L ALT (4-49) U/L Alkaline Phosphatase (38-126) U/L 09/03/24 09/03/24 09/03/24 Range/Units 05:48 06:19 06:19 RBC 6.15 H (4.40-5.60) 10*6/uL MCV 73.8 L (80.0-97.0) fL MCH 23.4 L (27.0-32.0) pg MCHC 31.7 L (32.0-37.0) g/dL MPV 9.4 L (9.5-12.2) fL Immature Gran # 0.06 H (0.00-0.04) 10*3/uL Glucose 244 H (74-99) mg/dL POC Glucose (mg/dL) 218 H (70-110) mg/dL AST 164 H (17-59) U/L ALT 132 H (4-49) U/L Alkaline Phosphatase 135 H (38-126) U/L
--- NOTE | 2024-09-03 10:14 | P.PN ---
Subjective Progress Note Date: 09/02/24 Patient was seen for follow-up. Denies any new neurological symptoms. Patient is laying comfortably in the bed. Continues to have some right visual field issues, but that is chronic from previous stroke. Objective - Vital Signs Vital signs: Vital Signs Temp 98.1 F 09/02/24 11:40 Pulse 88 09/02/24 15:41 Resp 18 09/02/24 14:00 BP 108/62 09/02/24 15:25 Pulse Ox 99 09/02/24 15:25 FiO2 21 08/30/24 08:17 Intake & Output 09/01/24 09/02/24 09/02/24 18:59 06:59 18:59 Intake Total 2061 150 Balance 2061 150 Weight 126.8 kg Intake: IV 20 150 Invasive Line 3 20 Intake, IV Titration 250 Amount Heparin Sod,Pork in 0.45% 250 NaCl 25,000 unit In 0.45 % NaCl 1 250ml.bag @ 7.82 UNITS/KG/HR 10.003 mls/ hr IV .Q24H [facility] Rx#: [id number] Oral 1792 Other: Voiding Method Toilet Toilet Toilet # Voids 2 0 - Exam Patient's strength is almost back to baseline. His vertical contour band saw operator is almost normal at least 5-on the right, 5 on left. Rest of the examination is nonfocal. Rail Equipment Operator looks almost equal bilaterally. - Labs CBC & Chem 7: 09/03/24 06:19 09/03/24 06:19 Labs: Abnormal Lab Results - Last 24 Hours (Table) 09/01/24 09/02/24 09/02/24 Range/Units 20:02 06:29 06:39 APTT 45.7 H (22.0-30.0) sec POC Glucose (mg/dL) 286 H 273 H (70-110) mg/dL 09/02/24 09/02/24 Range/Units 10:59 16:16 APTT (22.0-30.0) sec POC Glucose (mg/dL) 202 H 235 H (70-110) mg/dL Assessment and Plan Assessment: The patient is a 44-year-old male presented with chest pain, also had syncopal spell followed by some right-sided symptoms. Rule out stroke/TIA versus functional. 1. Possible CVA with right-sided weakness, improving. Patient has presented with similar symptoms multiple times in the past. CT head showed no recent or remote stroke. 2. NSTEMI 3. Coronary artery disease 4. Diabetes, poorly controlled 5. Obstructive sleep apnea 6. Hypertension 7. AICD placement 8. History of right BKA 9. Ex tobacco use Plan: * Patient had a carotid Doppler on 05/13/2024, which revealed no hemodynamically significant stenosis in either ICA. Antegrade flow in both vertebral arteries. No need to repeat. * Cardiology has seen the patient and agree with the workup. Patient had undergone, which did not reveal any arrhythmia ICD interrogation per cardiology. * Transesophageal echocardiogram showed: 1. No evidence of cardiac source of embolization 2. Intact left atrial appendage with no shunt 3. Intact intracardiac valves with no evidence of vegetation 4. No pericardial effusion 5. Intact left atrial appendage 6. Cardiomyopathy with EF between 25 to 30% * Patient cannot have MRI of the brain because of presence of pacemaker. * Repeat CT head, evaluate for any interval new stroke. * Continue dual antiplatelet therapy with aspirin and Brilinta. Continue Lipitor, amlodipine Farxiga, Zetia Imdur, metoprolol and Aldactone. Patient also on IV heparin, as per cardiology. * Lipid panel with cholesterol 211, LDL 111, HDL 30 and triglycerides 1095. Patient started on fenofibrate. Patient on Lipitor 80 mg daily (home dose), also on Zetia 10 mg daily. * Hemoglobin A1c 9.4 on 06/26/2024. Recommend optimize control of diabetes to target A1c <7.0. * Continue telemetry monitoring. * 2D echo with bubble study on 05/11/2024 revealed LVEF 35%. Moderately increased left ventricular diastolic volume. Severely increased left ventricu lar systolic volume. Global hypokinesis. Negative agitated saline bubble study for [id number] shunt. * Repeat echo 09/01/2024 revealed technically difficult study endocardial margins were not well-seen. Echo contrast was used. There is moderate decrease in contractility globally with LVEF 40 to 45%. * PT, OT * Neurologically clear.
[2024-09-03 10:21] VITALS: RESP 16
[2024-09-03] MEDS: NON FORMULARY DRUG (Semaglutide [Ozempic] 2 MG/0.75 ML Pen.Injctr) SQ SCH (10:21)
[2024-09-03 11:39] LABS: Glucose,Whole Blood 266 mg/dL (70-110)
--- NOTE | 2024-09-03 11:52 | CT ---
EXAMINATION TYPE: CT brain wo con DATE OF EXAM: 09/03/2024 11:47 AM COMPARISON: 08/30/2024 CLINICAL INDICATION: Male, 44 years old with history of Follow-up, rule out new/evolving stroke, Foll ow up rule out new/evolving stroke, weakness TECHNIQUE: Examination was done in axial plane without intravenous contrast. Coronal and sagittal r econstructions performed. CT DLP: 1171.4 mGycm, Automated exposure control for dose reduction was used. FINDINGS: There is no evidence of acute intracranial hemorrhage, acute ischemic changes, mass, mass-effect, or extra-axial fluid collection. There is no effacement of cerebral sulci or basal subarachnoid cister ns. There is no hydrocephalus. There is no midline shift. Marie-white matter distinction is preserv ed. Lobulated mucosal thickening floors of the maxillary sinuses. Mastoid air cells well pneumatized. The globes are intact. IMPRESSION: No acute intracranial abnormality seen. If persistent clinical concern, consider MRI. [facility], , 09/03/2024 11:49 AM
[2024-09-03 12:47] VITALS: BP 120/67; PULSE 86
== END 2024-09-03 15:25 | disposition home or self-care (01) | DRG 190 ==
LOC: EC 21:56 → 3SCARD 22:14
PROVIDERS: ADMIT Family Medicine; ATTEND Family Medicine
PROC: B2111ZZ Fluoroscopy of Multiple Coronary Arteries using Low Osmolar Contrast (ICD-10-PCS; 2024-09-02)
PROC: B41F1ZZ Fluoroscopy of Right Lower Extremity Arteries using Low Osmolar Contrast (ICD-10-PCS; 2024-09-02)
PROC: B246ZZ4 Ultrasonography of Right and Left Heart, Transesophageal (ICD-10-PCS; 2024-09-02)
PROC: 4A023N7 Measurement of Cardiac Sampling and Pressure, Left Heart, Percutaneous Approach (ICD-10-PCS; principal; 2024-09-02 13:00)
DX: I21.4 Non-ST elevation (NSTEMI) myocardial infarction (principal); J44.9 Chronic obstructive pulmonary disease, unspecified; E11.51 Type 2 diabetes mellitus with diabetic peripheral angiopathy without gangrene; E11.65 Type 2 diabetes mellitus with hyperglycemia; I50.23 Acute on chronic systolic (congestive) heart failure; I11.0 Hypertensive heart disease with heart failure; I25.10 Atherosclerotic heart disease of native coronary artery without angina pectoris; E78.5 Hyperlipidemia, unspecified; I69.331 Monoplegia of upper limb following cerebral infarction affecting right dominant side; Z79.4 Long term (current) use of insulin; Z87.891 Personal history of nicotine dependence; I25.2 Old myocardial infarction; F32.A Depression, unspecified; F41.9 Anxiety disorder, unspecified; G43.909 Migraine, unspecified, not intractable, without status migrainosus; G47.30 Sleep apnea, unspecified; Z95.810 Presence of automatic (implantable) cardiac defibrillator; G47.33 Obstructive sleep apnea (adult) (pediatric); I25.5 Ischemic cardiomyopathy; G89.29 Other chronic pain; H54.61 Unqualified visual loss, right eye, normal vision left eye; I44.30 Unspecified atrioventricular block; I44.7 Left bundle-branch block, unspecified; R29.810 Facial weakness; Z79.02 Long term (current) use of antithrombotics/antiplatelets; Z79.82 Long term (current) use of aspirin; Z79.84 Long term (current) use of oral hypoglycemic drugs; Z79.899 Other long term (current) drug therapy; Z82.49 Family history of ischemic heart disease and other diseases of the circulatory system; Z89.511 Acquired absence of right leg below knee; Z91.148 Patient's other noncompliance with medication regimen for other reason; Z95.5 Presence of coronary angioplasty implant and graft; M54.9 Dorsalgia, unspecified; E11.42 Type 2 diabetes mellitus with diabetic polyneuropathy
CPT/HCPCS: 36415; 70450; 80053; 80061; 80306; 83721; 83735; 83880; 84484; 85025; 85379; 85610; 85730; 93005; 93308; 93312; 93320; 93325; 93458; 94640; 94760; 96374; 96375; 99291

== ENCOUNTER 2024-09-22 00:36 | Inpatient (IN) | payer OTHER ==
--- NOTE | 2024-09-22 01:16 | ED ---
Neuro HPI - General Chief Complaint: Neuro Symptoms/Deficit Stated Complaint: Transfer/Chest Pain, Abd Labs Time Seen by Provider: 09/22/24 00:37 Source: patient, EMS Mode of arrival: EMS Limitations: no limitations - History of Present Illness Is the patient presenting with stroke symptoms?: Yes Last Known Well Date: 09/21/24 Last Known Well Time: 18:36 -: hour(s) Initial Comments: This patient is a 44-year-old man who arrives here as a transfer from [facility]. The patient had gone there this evening after reportedly developing right sided weakness at 6:36 PM. The patient here states that he is not exactly sure why he went to the other hospital other than that they thought he was having a stroke. The history from the other hospital does appear that his had given some of the information. The patient here is somewhat somnol ent. Currently denies complaints. No headache, chest pain, dyspnea. Review of the transfer papers reveals that the patient had workup including laboratories largely unremarkable though it is reported that high sensitive troponin was slightly elevated. CBC, chemistries, urinalysis essentially unremarkable. CT scan report from the other facility negative for acute change. CT angiogram of the head and neck also reported as negative. The patient not given tPA as currently taking novel anticoagulant and reported to be compliant with medication. Location: right face, right arm, right leg History of same: No Place: home Severity: moderate Quality: weak Improves With: time Worsens With: none Context: sudden onset Associated Symptoms: denies other symptoms - Related Data Home Medications: Home Medications Medication Instructions Recorded Confirmed Lidocaine 4% Patch 1 patch TRANSDERM DAILY 05/08/24 10/07/24 HYDROcodone/APAP 10-325MG [[place] 1 tab PO TID 07/15/24 10/07/24 10-325] Omeprazole [PriLOSEC] 40 mg PO DAILY 07/15/24 10/07/24 Semaglutide [Ozempic] 2 mg SQ TH 07/15/24 10/07/24 Sacubitril/Valsartan [Entresto 24 1 tab PO BID 07/18/24 10/07/24 mg-26 mg Tablet] Insulin NPH Hum/Reg Insulin Hm 60 unit SQ BID 09/18/24 10/07/24 [humuLIN 70/30 Kwikpen] Metoprolol Succinate [Toprol XL] 200 mg PO DAILY 10/07/24 10/07/24 Previous Rx's Medication Instructions Recorded Aspirin 81 mg PO DAILY #30 07/15/21 Nitroglycerin Sl Tabs [Nitrostat] 0.4 mg SUBLINGUAL Q5M PRN #30 tab 07/15/21 Atorvastatin [Lipitor] 80 mg PO HS #30 tab 05/13/24 Ticagrelor [Brilinta] 90 mg PO BID #60 tab 05/13/24 Ipratropium-Albuterol Nebulize 3 ml INHALATION RT-TID 30 Days 06/24/24 [Duoneb 0.5 mg-3 mg/3 ml Soln] #120 each Isosorbide Mononitrate ER [Imdur] 120 mg PO DAILY 30 Days #30 tab 06/24/24 amLODIPine [Norvasc] 5 mg PO DAILY 30 Days #30 tab 06/24/24 Acetaminophen Tab [Tylenol] 650 mg PO Q6HR PRN tab 07/15/24 Colchicine [Colcrys] 0.6 mg PO DAILY 30 Days #30 each 07/15/24 Ezetimibe [Zetia] 10 mg PO DAILY 90 Days #90 tab 07/15/24 Ranolazine [Ranexa] 1,000 mg PO Q12HR 30 Days #60 tab 07/15/24 Spironolactone [Aldactone] 25 mg PO DAILY 90 Days #90 tab 07/15/24 Famotidine [Pepcid] 20 mg PO BID tab 07/19/24 Mag Hydrox/Al Hydrox/Simeth 15 ml PO Q6HR PRN ml 07/19/24 [Maalox] Allergies/Adverse Reactions: Allergies Allergy/AdvReac Type Severity Reaction Status Date / Time Penicillins Allergy Unknown Verified 10/07/24 10:17 Childhood Review of Systems ROS Statement: Those systems with pertinent positive or pertinent negative responses have been documented in the HPI. ROS Other: All systems not noted in ROS Statement are negative. Constitutional: Denies: fever Respiratory: Denies: cough, dyspnea Cardiovascular: Denies: chest pain, palpitations, syncope Gastrointestinal: Denies: abdominal pain, vomiting, diarrhea Genitourinary: Denies: dysuria Musculoskeletal: Denies: back pain Skin: Denies: rash Neurological: Reports: weakness, confusion. Denies: headache General Exam Limitations: no limitations General appearance: other (Patient's somnolent but arousable) Head exam: Present: atraumatic, normocephalic Eye exam: Present: normal appearance. Absent: scleral icterus, conjunctival injection ENT exam: Present: normal oropharynx Neck exam: Present: normal inspection. Absent: meningismus Respiratory exam: Present: normal lung sounds bilaterally. Absent: respiratory distress, wheezes, rales, rhonchi, stridor, accessory muscle use Cardiovascular Exam: Present: regular rate, normal rhythm, normal heart sounds. Absent: systolic murmur, diastolic murmur, rubs, gallop GI/Abdominal exam: Present: soft. Absent: distended, tenderness, guarding, rebound, rigid, mass Extremities exam: Present: other (Right leg with BKA) Back exam: Present: normal inspection Skin exam: Present: warm, dry, intact, normal color. Absent: rash Stroke MDM - Lab Data Result diagrams: 09/22/24 01:18 09/22/24 01:18 - Medical Decision Making Was pt. sent in by a medical professional or institution (, PA, HEMMER LOCKSTITCH, urgent c are, hospital, or custodial...) When possible be specific @ -[Yes the patient arrives here as transfer from outside hospital Did you speak to anyone other than the patient for history (EMS, parent, family, police, friend...)? What history was obtained from this source @ -[No] Did you review nursing and triage notes (agree or disagree)? Why? @ -[I reviewed and agree with nursing and triage notes] Were old charts reviewed (outside hosp., previous admission, EMS record, old EKG, old radiological studies, urgent care reports/EKG's, custodial records)? Report findings @ -[Transfer records were reviewed] Differential Diagnosis (chest pain, altered mental status, abdominal pain women, abdominal pain men, vaginal bleeding, weakness, fever, dyspnea, syncope, headache, dizziness, GI bleed, back pain, seizure, CVA, palpatations, mental health, musculoskeletal)? @ -[Differential Altered Mental Status: Hypoglycemia, DKA, hypercapnia, ETOH, overdose, CO poisoning, trauma, myxedema coma, HTN encephalopathy, infection, encephalitis, psychosis, intercranial hemorrhage, hepatic encephalopathy, meningitis, CVA, this is not meant to be an all-inclusive list Differential Musculoskeletal Muscular strain, contusion, ligament sprain, fracture, arthritis, septic arthritis, bursitis, cellulitis, muscle spasm, nerve compression, DVT, arterial occlusion, herpes zoster, electrolyte abnormality, tumor.... This is not meant to be in all inclusive list EKG interpreted by me (3pts min.). @ -[As above] X-rays interpreted by me (1pt min.). @ -[None done] CT interpreted by me (1pt min.). @ -[None done] U/S interpreted by me (1pt. min.). @ -[None done] What testing was considered but not performed or refused? (CT, X-rays, U/S, labs)? Why? @ -[None] What meds were considered but not given or refused? Why? @ -[None] Did you discuss the management of the patient with other professionals (professionals i.e. , PA, HEMMER LOCKSTITCH, lab, RT, psych nurse, high school social studies tutor, power shear operator, teacher, casino surveillance officer, mental health case manager)? Give summary @ -[Case discussed with admitting physician and treatment recommendations are incorporated Was smoking cessation discussed for >3mins.? @ -[No] Was critical care preformed (if so, how long)? @ -[No] Were there social determinants of health that impacted care today? How? (Homelessness, low income, unemployed, alcoholism, drug addiction, transportation, low edu. Level, literacy, decrease access to med. care, shelter, rehab)? @ -[No] Was there de-escalation of care discussed even if they declined (Discuss DNR or withdrawal of care, Hospice)? DNR status @ -[No] What co-morbidities impacted this encounter? (DM, HTN, Smoking, COPD, CAD, Cancer, CVA, ARF, Chemo, Hep., AIDS, mental health diagnosis, sleep apnea, morbid obesity)? @ -[Diabetes Was patient admitted / discharged? Hospital course, mention meds given and route, prescriptions, significant lab abnormalities, going to OR and other pertinent info. @ -[Patient is 44-year-old man with diabetes who was transferred from outside hospital if further evaluation related to altered mental status and neck/arm pain/weakness. The patient found to have minimally elevated troponin as well. At this point the patient is admitted to have consultation with neurology and with cardiology. Undiagnosed new problem with uncertain prognosis? @ -[No] Drug Therapy requiring intensive monitoring for toxicity (Heparin, Nitro, Insulin, Cardizem)? @ -[No] Were any procedures done? @ -[No] Diagnosis/symptom? @ -[Acute altered mental status Acute neck pain with radiation arm Acute hyperglycemia in diabetic patient Elevated troponin I Acute, or Chronic, or Acute on Chronic? @ -[Acute Uncomplicated (without systemic symptoms) or Complicated (systemic symptoms)? @ -[Uncomplicated Side effects of treatment? @ -[No] Exacerbation, Progression, or Severe Exacerbation? @ -[No] Poses a threat to life or bodily function? How? (Chest pain, [place], [place], pneumonia, PE, COPD, DKA, ARF, appy, cholecystitis, CVA, Diverticulitis, Homicidal, Suicidal, threat to staff... and all critical care pts) @ -[Requires further neurology and cardiology consultation All treatments are based on ideal body weight as in ED triage Past Medical History Past Medical History: Coronary Artery Disease (CAD), Chest Pain / Angina, Heart Failure, CVA/TIA, Diabetes Mellitus, Hyperlipidemia, Hypertension, Myocardial Infarction (LA), Respiratory Disorder, Sleep Apnea/CPAP/BIPAP, Syncope Additional Past Medical History / Comment(s): AICD. IDDM type II. Neuropathy bilateral feet. 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 Migraines. Chronic back pain. R BKA (done 2023). Last Myocardial Infarction Date:: 2023 History of Any Multi-Drug Resistant Organisms: None Reported Past Surgical History: AICD, Heart Catheterization, Heart Catheterization With Stent, Orthopedic Surgery Additional Past Surgical History / Comment(s): 10/27/12 AICD, DFTs, PCI with 2 stents, R BKA. Past Anesthesia/Blood Transfusion Reactions: No Reported Reaction Date of Last Stent Placement:: 06/28/2024 Type of Cardiac Device: AICD Device Placement Date:: 2012 Past Psychological History: Anxiety, Depression Smoking Status: Former smoker Past Alcohol Use History: None Reported Past Drug Use History: None Reported - Past Family History Mother Family Medical History: No Reported History Brother(s) Family Medical History: Myocardial Infarction (LA) Father Family Medical History: Liver Disease Sister(s) Additional Family Medical History / Comment(s): Huntings disease Course Vital Signs 0609/22/24 09/22/24 00:40 01:00 01:15 Temperature 98.6 F Pulse Rate 83 Respiratory 20 Rate Blood Pressure 141/92 155/101 129/91 O2 Sat by Pulse 98 Oximetry 09/22/24 09/22/24 09/22/24 01:30 01:45 02:33 Temperature 97.8 F Pulse Rate 82 84 Respiratory 19 19 Rate Blood Pressure 134/81 132/79 145/102 O2 Sat by Pulse 96 96 Oximetry 09/22/24 09/22/24 09/22/24 06:00 06:43 07:59 Temperature 98.1 F 97.7 F Pulse Rate 80 77 78 Respiratory 18 12 16 Rate Blood Pressure 142/101 136/95 129/80 O2 Sat by Pulse 98 97 95 Oximetry 09/22/24 09/22/24 09/22/24 10:00 10:07 10:14 Temperature Pulse Rate 75 76 75 Respiratory 20 Rate Blood Pressure 106/70 O2 Sat by Pulse 99 Oximetry 09/22/24 09/22/24 09/22/24 14:47 16:06 17:05 Temperature 97.8 F Pulse Rate 73 74 76 Respiratory 18 16 16 Rate Blood Pressure 98/68 104/73 122/85 O2 Sat by Pulse 97 98 98 Oximetry Disposition Clinical Impression: Elevated troponin, Neck pain, Arm weakness Disposition: ADMITTED IP TO THIS [facility] Condition: Fair Is patient prescribed a controlled substance at d/c from ED?: No
[2024-09-22 01:33] LABS: Basophils # (A) 0.11 10*3/uL (0.00-0.10); Basophils % (A) 1.2 %; Eosinophils # (A) 0.32 10*3/uL (0.04-0.35); Eosinophils % (A) 3.5 %; HCT 42.6 % (39.6-50.0); HGB 13.8 g/dL (13.0-17.0); Lymphocytes # (A) 2.61 10*3/uL (0.90-5.00); Lymphocytes % (A) 28.3 %; MCH 23.4 pg (27.0-32.0); MCHC 32.4 g/dL (32.0-37.0); MCV 72.1 fL (80.0-97.0); Mean Platelet Volume 9.4 fL (9.5-12.2); Monocytes % (A) 7.6 %; Neutrophils # (A) 5.36 10*3/uL (1.80-7.70); Neutrophils % (A) 58.2 %; Platelet Count 239 10*3/uL (140-440); RBC 5.91 10*6/uL (4.40-5.60); RDW 16.8 % (11.5-14.5); WBC 9.21 10*3/uL (4.50-10.00)
[2024-09-22 01:54] LABS: ALT 20 U/L (4-49); AST 25 U/L (17-59); African American GFR (CKD) >90 (>60 ml/min/1.73 sqM); Albumin 3.4 g/dL (3.5-5.0); Alcohol <10 mg/dL; Alkaline Phosphatase 109 U/L (38-126); Anion Gap 11 mmol/L; Blood Urea Nitrogen 25 mg/dL (9-20); Calcium 9.1 mg/dL (8.4-10.2); Carbon Dioxide 19 mmol/L (22-30); Chloride 106 mmol/L (98-107); Glucose 203 mg/dL (74-99); Non-African American GFR(CKD) >90 (>60 ml/min/1.73 sqM); Potassium 4.4 mmol/L (3.5-5.1); Sodium 136 mmol/L (137-145); Total Bilirubin 0.7 mg/dL (0.2-1.3); Total Protein 6.5 g/dL (6.3-8.2)
[2024-09-22] MEDS: SODIUM CHLORIDE 0.9% 1,000 ML IV SCH (02:00)
[2024-09-22] MEDS: ACETAMINOPHEN TAB 325 MG TAB PO PRN (02:31)
[2024-09-22] MEDS ORDERED: MAG HYDROX/AL HYDROX/SIMETH 30 ML CUP PO PRN (07:23)
[2024-09-22] MEDS: HYDROcodone/APAP 10-325MG 1 EACH TAB PO SCH (08:09)
[2024-09-22 08:38] LABS: Glucose,Whole Blood 149 mg/dL (70-110)
[2024-09-22] MEDS: INSULIN NPL/INSULIN LISPRO 100 UNIT/ML 10 ML VL (Humalog 75/25) SQ SCH (08:38)
[2024-09-22] MEDS: SPIRONOLACTONE 25 MG TAB PO SCH (08:40)
[2024-09-22] MEDS: SACUBITRIL/VALSARTAN 24 MG-26 MG TABLET PO SCH (08:40)
[2024-09-22] MEDS: METOPROLOL TARTRATE 50 MG TAB PO SCH (08:40)
[2024-09-22] MEDS: COLCHICINE 0.6 MG EACH PO SCH (08:40)
[2024-09-22] MEDS: FAMOTIDINE 20 MG TAB PO SCH (08:40)
[2024-09-22] MEDS: ASPIRIN 81 MG PO SCH (08:40)
[2024-09-22] MEDS: TICAGRELOR 90 MG TAB PO SCH (08:40)
[2024-09-22] MEDS: PANTOPRAZOLE 40 MG TABLET PO SCH (08:40)
[2024-09-22] MEDS: EZETIMIBE 10 MG TAB PO SCH (08:40)
[2024-09-22] MEDS: amLODIPine 5 MG TAB PO SCH (08:40)
[2024-09-22] MEDS: ISOSORBIDE MONONITRATE ER 60 MG TAB.ER.24H PO SCH (08:40)
[2024-09-22] MEDS: RANOLAZINE 500 MG TAB.ER.12H PO SCH (08:40)
[2024-09-22] MEDS ORDERED: FAMOTIDINE 20 MG/2 ML VIAL IV SCH (09:00)
[2024-09-22] MEDS: IPRATROPIUM-ALBUTEROL 3 ML NEB INHALATION SCH (09:59)
--- NOTE | 2024-09-22 12:39 | P.CNNES ---
History of Present Illness Consult date: 09/22/24 Requesting physician: Blair Beasley Reason for Consult: Right-sided weakness, suspected stroke History of Present Illness: This is a 44-year-old gentleman with multiple medical issues who presents the emergency department from outside facility for escalation of care for concerning for stroke. Current initially to [facility]. He stated that he went to the outside facility because of right sided weakness and numbness that started yesterday at 3 PM while watching TV with his daughter. He stated that he took a nap and last normal was 2 PM just an hour prior to his symptoms. He did acknowledge that he had a prior stroke in the past/TIA and his symptoms improved. He used to have right sided weakness. He does have underlying history of heart attack, hypertension, congestive heart failure, coronary artery disease status post stent, diabetes mellitus. He is on aspirin at home. It seems that at the outside facility he had a CT of the head which was negative for any acute process. CT angiography of the head and neck which was negative for any large vessel occlusion. No IV tPA at the outside facility since the patient is on oral anticoagulation according to the ED physician. Upon reviewing that his home medication list on the EMR since the patient does not recall all medication but does not seem to be on anticoagulation but is on aspirin as well as Brilinta. Some of the work-up during this hospital visit consisted of: Initial serum glucose in our facility is 203 Troponin is as high as 0.048. Review of Systems As per HPI. Past Medical History Past Medical History: Coronary Artery Disease (CAD), Chest Pain / Angina, Heart Failure, CVA/TIA, Diabetes Mellitus, Hyperlipidemia, Hypertension, Myocardial Infarction ([place]), Respiratory Disorder, Sleep Apnea/CPAP/BIPAP, Syncope Additional Past Medical History / Comment(s): AICD. IDDM type II. Neuropathy bilateral feet. 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 Migraines. Chronic back pain. R BKA (done 2023). Last Myocardial Infarction Date:: 2023 History of Any Multi-Drug Resistant Organisms: None Reported Past Surgical History: AICD, Heart Catheterization, Heart Catheterization With Stent, Orthopedic Surgery Additional Past Surgical History / Comment(s): 10/27/12 AICD, DFTs, PCI with 2 stents, R BKA. Past Anesthesia/Blood Transfusion Reactions: No Reported Reaction Date of Last Stent Placement:: 06/28/2024 Type of Cardiac Device: AICD Device Placement Date:: 2012 Past Psychological History: Anxiety, Depression Smoking Status: Former smoker Past Alcohol Use History: None Reported Past Drug Use History: None Reported - Past Family History Mother Family Medical History: No Reported History Brother(s) Family Medical History: Myocardial Infarction ([place]) Father Family Medical History: Liver Disease Sister(s) Additional Family Medical History / Comment(s): Huntings disease Medications and Allergies Home Medications Medication Instructions Recorded Confirmed Type Aspirin 81 mg PO DAILY #30 07/15/21 09/22/24 Rx Nitroglycerin Sl Tabs [Nitrostat] 0.4 mg SUBLINGUAL Q5M PRN #30 tab 07/15/21 09/22/24 Rx Lidocaine 4% Patch 1 patch TRANSDERM DAILY 05/08/24 09/22/24 History Atorvastatin [Lipitor] 80 mg PO HS #30 tab 05/13/24 09/22/24 Rx Ticagrelor [Brilinta] 90 mg PO BID #60 tab 05/13/24 09/22/24 Rx Ipratropium-Albuterol Nebulize 3 ml INHALATION RT-TID 30 Days 06/24/24 09/22/24 Rx [Duoneb 0.5 mg-3 mg/3 ml Soln] #120 each Isosorbide Mononitrate ER [Imdur] 120 mg PO DAILY 30 Days #30 tab 06/24/24 09/22/24 Rx amLODIPine [Norvasc] 5 mg PO DAILY 30 Days #30 tab 06/24/24 09/22/24 Rx Metoprolol Tartrate [Lopressor] 50 mg PO BID 30 Days #60 tab 07/01/24 09/22/24 Rx Acetaminophen Tab [Tylenol] 650 mg PO Q6HR PRN tab 07/15/24 09/22/24 Rx Colchicine [Colcrys] 0.6 mg PO DAILY 30 Days #30 each 07/15/24 09/22/24 Rx Ezetimibe [Zetia] 10 mg PO DAILY 90 Days #90 tab 07/15/24 09/22/24 Rx HYDROcodone/APAP 10-325MG [[place] 1 tab PO TID 07/15/24 09/22/24 History 10-325] Omeprazole [PriLOSEC] 40 mg PO DAILY 07/15/24 09/22/24 History Ranolazine [Ranexa] 1,000 mg PO Q12HR 30 Days #60 tab 07/15/24 09/22/24 Rx Semaglutide [Ozempic] 2 mg SQ TH 07/15/24 09/22/24 History Spironolactone [Aldactone] 25 mg PO DAILY 90 Days #90 tab 07/15/24 09/22/24 Rx Sacubitril/Valsartan [Entresto 24 1 tab PO BID 07/18/24 09/22/24 History mg-26 mg Tablet] Famotidine [Pepcid] 20 mg PO BID tab 07/19/24 09/22/24 Rx Mag Hydrox/Al Hydrox/Simeth 15 ml PO Q6HR PRN ml 07/19/24 09/22/24 Rx [Maalox] Insulin NPH Hum/Reg Insulin Hm 60 unit SQ BID 09/18/24 09/22/24 History [humuLIN 70/30 Kwikpen] Allergies Allergy/AdvReac Type Severity Reaction Status Date / Time Penicillins Allergy Unknown Verified 09/22/24 09:05 Childhood Physical Examination - Vital Signs Vital Signs: Vital Signs Temp Pulse Resp BP Pulse Ox 09/22/24 10:14 75 20 106/70 99 09/22/24 10:07 76 09/22/24 10:00 75 09/22/24 07:59 97.7 F 78 16 129/80 95 09/22/24 06:43 77 12 136/95 97 09/22/24 06:00 98.1 F 80 18 142/101 98 09/22/24 02:33 97.8 F 84 19 145/102 96 09/22/24 01:45 82 19 132/79 96 09/22/24 01:30 134/81 09/22/24 01:15 129/91 09/22/24 01:00 155/101 09/22/24 00:40 98.6 F 83 20 141/92 98 Intake and Output 09/21/24 09/22/24 09/22/24 22:59 06:59 14:59 Other: Weight 127.006 kg GENERAL: The patient is lying in bed and is not in acute distress. NEUROLOGICAL: Higher mental function: The patient is awake, alert, oriented to self, place and time. Patient is following commands. No aphasia and no neglect. Cranial nerves: The pupils are round, equal and reactive to light and accommodation. Visual hauser is right upper quadrant homonymous anopsia to confrontation throughout. Extraocular movement is intact no nystagmus is noted. Facial sensation is decrease to touch over the right to touch. The facial strength is normal throughout. Hearing is normal bilaterally to hand rub. To ngue is midline and moved [id number] without any difficulty. No dysarthria is noted. Shoulder shrug is normal bilaterally. Motor: The strength is right upper extremity is 4+, right lower proximal is 5-. Has below the right knee amputation. Otherwise left side 5 over 5 throughout. Normal tone and bulk. Cerebellum: Normal finger to nose bilaterally. Sensation: Sensation is decreased to touch throughout. Results - Laboratory Findings CBC and BMP: 09/22/24 01:18 09/22/24 01:18 Abnormal Lab Findings: Abnormal Labs 09/22/24 09/22/24 09/22/24 01:18 01:18 01:18 RBC 5.91 H MCV 72.1 L MCH 23.4 L MPV 9.4 L Immature Gran # 0.11 H Basophils # 0.11 H Sodium 136 L Carbon Dioxide 19 L BUN 25 H Glucose 203 H POC Glucose (mg/dL) Troponin I 0.041 H* Albumin 3.4 L 09/22/24 09/22/24 09/22/24 03:59 07:44 08:37 RBC MCV MCH MPV Immature Gran # Basophils # Sodium Carbon Dioxide BUN Glucose POC Glucose (mg/dL) 149 H Troponin I 0.048 H* 0.041 H* Albumin Assessment and Plan Assessment: This is a 44-year-old gentleman with multiple medical issues who presented from outside hospital for escalation of care for concerning of stroke. Acute right sided weakness, numbness and visual field deficit: Likely acute ischemic stroke especially with multiple risk factors Slightly elevated troponin History of stroke Underlying diabetes mellitus and the sugar is in the 200s Hypertension History of coronary artery disease status post stent History of congestive heart failure s/p AICD Plan: Patient is resumed on his home medication of aspirin 81 mg and Brilinta 90 mg 1 tablet twice daily. Unable to obtain MRI of the brain since patient has AICD that not MRI compatible for MRI techs Will get a repeat CT of the head within 24 to 40 hours I ordered 2D echo. Lipid panel are ordered and pending. Continue neurochecks Cardiac monitoring Will defer the rest of the medical management to primary and other specialist Consider cardiology consultation especially with the significant cardiac history and slightly elevated troponin. For the rest of the medical management the primary other specialist For DVT prophylaxis I started the patient on subcu heparin 5000 units every 12 hours. Thank you for the consultation. Time with Patient: Greater than 30
[2024-09-22] MEDS: HEPARIN SODIUM,PORCINE 5,000 UNIT/ML 1 ML VIAL SQ SCH (14:47)
[2024-09-22 18:22] LABS: Glucose,Whole Blood 188 mg/dL (70-110)
[2024-09-22 20:13] LABS: Glucose,Whole Blood 221 mg/dL (70-110)
[2024-09-22] MEDS: ATORVASTATIN 80 MG TAB PO SCH (21:56)
--- NOTE | 2024-09-23 00:30 | HP ---
HISTORY AND PHYSICAL HISTORY OF PRESENT ILLNESS: A 44-year-old white male, came in the hospital after waking up and his right arm was unable to move. He states he does not lay on it. He thought he might be having a stroke. He has similar vision loss, vision abnormality on the outside of the same side of the right arm and right eye. He is sent here for possible stroke evaluation. Again did an MRI due to AICD. CT angiogram of the head and neck is negative. He is on anticoagulation. Did not get tPA. He has elevated troponin. Cardiology consult. He has chronic thoracic cervical radiculopathy. I am going to consult Dr. Miranda for an epidural. MEDICATIONS: Home medicines reviewed. PAST MEDICAL HISTORY: He has a history of systolic CHF, COPD, sleep apnea, CAD, right leg below the knee amputation. REVIEW OF SYSTEMS: Otherwise negative. ALLERGIES: Penicillin. PHYSICAL EXAMINATION: VITAL SIGNS: Reviewed. CARDIOVASCULAR: S1, S2. LUNGS: Transmitted upper airway sounds. GI : Soft. HEMATOLOGY: Negative Homans. PSYCH: Fair mood and affect. NEUROLOGIC: Alert and oriented x3. He is moving his arm normally at this point. No signs of weakness or any focal neurologic deficit. Coronary artery disease, multiple stents, history of cerebrovascular accident, transient ischemic attack, sleep apnea, chronic obstructive pulmonary disease, asthma, diabetes mellitus, hypertension, sleep apnea, severe thoracic cervical radiculopathy, therefore, multiple consults, PT/OT, further workup. Please see further orders. MMODL / IJN: [id number] /
[2024-09-23 06:06] LABS: Glucose,Whole Blood 172 mg/dL (70-110)
[2024-09-23] MEDS ORDERED: ASPIRIN 325 MG TAB PO SCH (09:00)
[2024-09-23 10:42] LABS: Chol/HDL Ratio 5.66 Ratio; HDL Cholesterol 27.4 mg/dL (40.00-60.00)
[2024-09-23 11:14] LABS: Glucose,Whole Blood 165 mg/dL (70-110)
[2024-09-23 11:24] LABS: VLDL Calculation 122.6 mg/dL (5.00-40.00)
--- NOTE | 2024-09-23 14:34 | P.CRDCN ---
History of Present Illness Consult date: 09/23/24 Reason for Consult (text): Known cardiac history and positive troponin History of present illness: This is a 44-year-old male patient of Dr. Hernandez with past medical history of extensive CAD, ischemic cardiomyopathy with EF of 30 to 35% status post AICD, hypertension, dyslipidemia, overweight, right below the knee amputation. Patient was recently hospitalized 08/29/2024 and underwent left heart catheterization which showed patent LAD stent, [employer] of known LC, occluded distal RCAx and medical management was advised. He underwent TAYLOR 09/01/2024 with no evidence of cardiac source of embolization, no vegetation no pericardial effusion. Echocardiogram showed EF 40-45% without evidence of thrombus. He was subsequently admitted on 09/18 for chest tightness and had a syncopal episode lasting 1 minute and witnessed by family members. He had received 1 nitroglycerin by EMS and had little relief. His troponins were elevated at that time of 0.192, 0.208 and 0.188. CTA of the chest was negative for PE. We have been asked to evaluate the patient for known cardiac history and positive troponins. Patient states that he went to [facility] due to weakness in his right arm and because there was concern for stroke, patient was tra nsferred to [facility]. Patient states that he has a little chest pain which is always present. He states he when he took a nap he woke up and he was feeling his heart race in the morning. Blood pressure 123/84, heart rate 74, pulse ox 98% on room air. -EKG: None -Laboratory studies: WBC 9.2, hemoglobin 13.8, sodium 136, potassium 4.4, BUN 25 creatinine 0.95. Troponins 0.041, 0.048, 0.041. Triglycerides 613, cholesterol 155. -Home cardiac medications: Amlodipine 5 mg daily, aspirin 81 mg daily, atorvastatin 80 mg at bedtime, Zetia 10 mg daily, Imdur 120 mg daily, Lopressor 50 mg twice daily, Nitrostat as needed, Ranexa 1000 mg every 12 hours, Entresto 24-26 mg 1 tablet twice daily, spironolactone 25 mg daily, Brilinta 90 mg twice daily, patient is also on Ozempic. -Limited echocardiogram performed on 08/30/2024 revealed EF of 40 to 45%, technically difficult study. Review Of Systems: At the time of my exam: CONSTITUTIONAL: Denies fever or chills. HEENT: Denies blurred vision, vision changes, or eye pain. Denies hemoptysis CARDIOVASCULAR: Denies chest pain. Denies orthopnea. Denies PND. Denies palpitations RESPIRATORY: Denies shortness of breath. GASTROINTESTINAL: Denies abdominal pain. Denies nausea or vomiting. HEMATOLOGIC: Denies bleeding disorders. GENITOURINARY: Denies any blood in urine. SKIN: Denies puritis. Denies rash. Physical examination: Gen: This is a 44-year-old male in no acute distress VS: reviewed HEENT: Head is atraumatic, normocephalic. Pupils equal, round. Sclerae is anicteric. NECK: Supple. No JVD. LUNGS: Clear to auscultation. No wheezes or rhonchi. No intercostal retractions. HEART: Regular rate and rhythm. Systolic murmur. ABDOMEN: Soft No tenderness. EXTREMITIES: No pedal edema. No calf tenderness. NEUROLOGICAL: Patient is awake, alert and oriented x3. Assessment: Right arm weakness Elevated troponin and flat pattern not indicative of acute coronary syndrome Several hospitalizations for NSTEMI Severe CAD status post multiple PCI as above Dyslipidemia Diabetes mellitus type 2 Obesity with BMI of 36 Right below the knee amputation Ischemic cardiomyopathy with with most recent EF of 40 to 45% Status post AICD Hypertension PAD Plan: Resume patient's home cardiac medications Neurology is on consult No need to repeat echocardiogram Further recommendations to follow based upon clinical course Thank you kindly for this consultation. Nurse practitioner note has been reviewed, I agree with documented findings and plan of care. Patient was seen and examined. Past Medical History Past Medical History: Coronary Artery Disease (CAD), Chest Pain / Angina, Heart Failure, CVA/TIA, Diabetes Mellitus, Hyperlipidemia, Hypertension, Myocardial Infarction ([place]), Respiratory Disorder, Sleep Apnea/CPAP/BIPAP, Syncope Additional Past Medical History / Comment(s): AICD. IDDM type II. Neuropathy bilateral feet. 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 Migraines. Chronic back pain. R BKA (done 2023). Last Myocardial Infarction Date:: 2023 History of Any Multi-Drug Resistant Organisms: None Reported Past Surgical History: AICD, Heart Catheterization, Heart Catheterization With Stent, Orthopedic Surgery Additional Past Surgical History / Comment(s): 10/27/12 AICD, DFTs, PCI with 2 stents, R BKA. Stent placemnet in August 2024 at [facility] Past Anesthesia/Blood Transfusion Reactions: No Reported Reaction Date of Last Stent Placement:: 08/2024 Type of Cardiac Device: AICD Device Placement Date:: 2012 Past Psychological History: Anxiety, Depression Additional Psychological History / Comment(s): rajesh . Smoking Status: Former smoker Past Alcohol Use History: None Reported Additional Past Alcohol Use History / Comment(s): quit in 2018 about 1/2 ppd Past Drug Use History: None Reported - Past Family History Mother Family Medical History: No Reported History Brother(s) Family Medical History: Myocardial Infarction ([place]) Father Family Medical History: Liver Disease Sister(s) Additional Family Medical History / Comment(s): Huntings disease Medications and Allergies Home Medications Medication Instructions Recorded Confirmed Type Aspirin 81 mg PO DAILY #30 07/15/21 09/22/24 Rx Nitroglycerin Sl Tabs [Nitrostat] 0.4 mg SUBLINGUAL Q5M PRN #30 tab 07/15/21 09/22/24 Rx Lidocaine 4% Patch 1 patch TRANSDERM DAILY 05/08/24 09/22/24 History Atorvastatin [Lipitor] 80 mg PO HS #30 tab 05/13/24 09/22/24 Rx Ticagrelor [Brilinta] 90 mg PO BID #60 tab 05/13/24 09/22/24 Rx Ipratropium-Albuterol Nebulize 3 ml INHALATION RT-TID 30 Days 06/24/24 09/22/24 Rx [Duoneb 0.5 mg-3 mg/3 ml Soln] #120 each Isosorbide Mononitrate ER [Imdur] 120 mg PO DAILY 30 Days #30 tab 06/24/24 09/22/24 Rx amLODIPine [Norvasc] 5 mg PO DAILY 30 Days #30 tab 06/24/24 09/22/24 Rx Metoprolol Tartrate [Lopressor] 50 mg PO BID 30 Days #60 tab 07/01/24 09/22/24 Rx Acetaminophen Tab [Tylenol] 650 mg PO Q6HR PRN tab 07/15/24 09/22/24 Rx Colchicine [Colcrys] 0.6 mg PO DAILY 30 Days #30 each 07/15/24 09/22/24 Rx Ezetimibe [Zetia] 10 mg PO DAILY 90 Days #90 tab 07/15/24 09/22/24 Rx HYDROcodone/APAP 10-325MG [[place] 1 tab PO TID 07/15/24 09/22/24 History 10-325] Omeprazole [PriLOSEC] 40 mg PO DAILY 07/15/24 09/22/24 History Ranolazine [Ranexa] 1,000 mg PO Q12HR 30 Days #60 tab 07/15/24 09/22/24 Rx Semaglutide [Ozempic] 2 mg SQ TH 07/15/24 09/22/24 History Spironolactone [Aldactone] 25 mg PO DAILY 90 Days #90 tab 07/15/24 09/22/24 Rx Sacubitril/Valsartan [Entresto 24 1 tab PO BID 07/18/24 09/22/24 History mg-26 mg Tablet] Famotidine [Pepcid] 20 mg PO BID tab 07/19/24 09/22/24 Rx Mag Hydrox/Al Hydrox/Simeth 15 ml PO Q6HR PRN ml 07/19/24 09/22/24 Rx [Maalox] Insulin NPH Hum/Reg Insulin Hm 60 unit SQ BID 09/18/24 09/22/24 History [humuLIN 70/30 Kwikpen] Allergies Allergy/AdvReac Type Severity Reaction Status Date / Time Penicillins Allergy Unknown Verified 09/22/24 09:05 Childhood Physical Exam Vitals: Vital Signs Temp Pulse Pulse Resp BP BP Pulse Ox 09/23/24 04:00 97.6 F 74 19 123/84 98 09/22/24 23:30 97.7 F 75 16 115/74 94 L 09/22/24 21:43 80 09/22/24 20:25 97.3 F L 80 19 123/76 97 09/22/24 18:13 97.5 F L 75 16 130/86 96 09/22/24 18:04 97.5 F L 75 16 130/86 96 09/22/24 17:05 97.8 F 76 16 122/85 98 09/22/24 16:06 74 16 104/73 98 09/22/24 14:47 73 18 98/68 97 09/22/24 10:14 75 20 106/70 99 09/22/24 10:07 76 09/22/24 10:00 75 Intake and Output 09/22/24 09/23/24 09/23/24 22:59 06:59 14:59 Intake Total 1020 780 Output Total 200 Balance 1020 580 Intake: Oral 1020 780 Output: Urine 200 Other: Voiding Method Toilet Urinal # Voids 3 Weight 127.006 kg 130 kg Results 09/22/24 01:18 09/22/24 01:18 Cardiac Enzymes 09/22/24 Range/Units 07:44 Troponin I 0.041 H* (0.000-0.034) ng/mL Current Medications Generic Name Dose Route Start Last Admin Trade Name Freq PRN Reason Stop Dose Admin Acetaminophen 650 mg 09/22/24 01:08 09/22/24 02:31 Acetaminophen Tab 325 Mg Tab PO 650 mg Q6HR PRN Administration Pain Hydrocodone Bitart/Acetaminophen 1 each 09/22/24 09:00 09/22/24 21:56 Hydrocodone/Apap 10-325mg 1 Each Tab PO 1 each TID KSENIA Administration Al Hydroxide/Mg Hydroxide 15 ml 09/22/24 07:23 Mag Hydrox/Al Hydrox/Simeth 30 Ml Cup PO Q6HR PRN Indigestion Albuterol/Ipratropium 3 ml 09/22/24 08:00 09/22/24 21:41 Ipratropium-Albuterol 3 Ml Neb INHALATION 3 ml RT-TID KSENIA Administration Amlodipine Besylate 5 mg 09/22/24 09:00 09/22/24 08:40 Amlodipine 5 Mg Tab PO 5 mg DAILY KSENIA Administration Aspirin 81 mg 09/22/24 09:00 09/22/24 08:40 Aspirin 81 Mg PO 81 mg DAILY KSENIA Administration Atorvastatin Calcium 80 mg 09/22/24 21:00 09/22/24 21:56 Atorvastatin 80 Mg Tab PO 80 mg HS KSENIA Administration Colchicine 0.6 mg 09/22/24 09:00 09/22/24 08:40 Colchicine 0.6 Mg Each PO 0.6 mg DAILY KSENIA Administration Ezetimibe 10 mg 09/22/24 09:00 09/22/24 08:40 Ezetimibe 10 Mg Tab PO 10 mg DAILY KSENIA Administration Famotidine 20 mg 09/22/24 09:00 09/22/24 21:55 Famotidine 20 Mg Tab PO 20 mg BID KSENIA Administration Heparin Sodium (Porcine) 5,000 unit 09/22/24 13:00 09/22/24 21:56 Heparin Sodium,Porcine 5,000 Unit/Ml 1 Ml Vial SQ 5,000 unit Q12HR KSENIA Administration Sodium Chloride 1,000 mls @ 100 mls/hr 09/22/24 01:15 09/23/24 05:36 Saline 0.9% IV Not Given .Q10H KSENIA Insulin Lispro Protam/Lispro Human 60 unit 09/22/24 09:00 09/22/24 21:57 Insulin Npl/Insulin Lispro 100 Unit/Ml 10 Ml Vl (Humalog 75/25) SQ 60 unit BID KSENIA Administration Isosorbide Mononitrate 120 mg 09/22/24 09:00 09/22/24 08:40 Isosorbide Mononitrate Er 60 Mg Tab.Er.24h PO 120 mg DAILY KSENIA Administration Metoprolol Tartrate 50 mg 09/22/24 09:00 09/22/24 21:55 Metoprolol Tartrate 50 Mg Tab PO 50 mg BID KSENIA Administration Pantoprazole Sodium 40 mg 09/22/24 09:00 09/23/24 06:32 Pantoprazole 40 Mg Tablet PO 40 mg [id number] KSENIA Administration Ranolazine 1,000 mg 09/22/24 09:00 09/22/24 21:55 Ranolazine 500 Mg Tab.Er.12h PO 1,000 mg Q12HR KSENIA Administration Sacubitril/Valsartan 1 each 09/22/24 09:00 09/22/24 21:56 Sacubitril/Valsartan 24 Mg-26 Mg Tablet PO 1 each BID KSENIA Administration Spironolactone 25 mg 09/22/24 09:00 09/22/24 08:40 Spironolactone 25 Mg Tab PO 25 mg DAILY KSENIA Administration Ticagrelor 90 mg 09/22/24 09:00 09/22/24 21:55 Ticagrelor 90 Mg Tab PO 90 mg BID KSENIA Administration Intake and Output 09/22/24 09/23/24 09/23/24 22:59 06:59 14:59 Intake Total 1020 780 Output Total 200 Balance 1020 580 Intake: Oral 1020 780 Output: Urine 200 Other: Voiding Method Toilet Urinal # Voids 3 Weight 127.006 kg 130 kg 09/22/24 01:18 09/22/24 01:18
--- NOTE | 2024-09-23 15:44 | CT ---
EXAMINATION TYPE: CT brain wo con DATE OF EXAM: 09/23/2024 11:51 AM COMPARISON: 09/03/2024 CLINICAL INDICATION: Male, 44 years old with history of right sided weakness and numbness, Right side d weakness and numbness TECHNIQUE: CT of the brain is performed utilizing 3 mm thick sections through the posterior fossa and 3 mm thick sections through the remaining calvarium. Study is performed within 24 hours of arrival to the hospital. Contrast used: mL of , (none if empty) CT DLP: 1215.4 mGycm, Automated exposure control for dose reduction was used. FINDINGS: No abnormal hyperdensity is present to suggest an acute intracranial hemorrhage. No mass lesion is evident. No acute infarcts are evident. Ventricles and sulci are appropriate for the patient age. Paranasal sinuses and mastoid air cells within the [id number] are clear. IMPRESSION: 1. No acute intracranial process. Follow up MRI can be performed as clinically indicated. [facility], , 09/23/2024 3:42 PM
[2024-09-23] MEDS: MORPHINE SULFATE 2 MG/ML SYRINGE IVP PRN (16:01)
--- NOTE | 2024-09-23 16:47 | P.PN ---
Subjective Progress Note Date: 09/23/24 I am following-up with the patient and he states he is about the same and continues to have weakness over the right side. According to the nurse she feels there is some functional component and old he asked for his morphine or his Mcdonough. Objective - Vital Signs Vital signs: Vital Signs Temp 97.6 F 09/23/24 04:00 Pulse 94 09/23/24 16:00 Resp 19 09/23/24 16:00 BP 123/74 09/23/24 16:00 Pulse Ox 99 09/23/24 16:00 FiO2 Intake & Output 09/22/24 09/23/24 09/23/24 18:59 06:59 18:59 Intake Total 1800 784 Output Total 200 Balance 1600 784 Weight 127.006 kg 130 kg Intake: Oral 1800 784 Output: Urine 200 Other: Voiding Method Toilet Toilet Urinal Urinal # Voids 3 - Exam GENERAL: The patient is lying in bed and is not in acute distress. NEUROLOGICAL: Higher mental function: The patient is awake, alert, oriented to self, place and time. Patient is following commands. No aphasia and no neglect. Cranial nerves: The pupils are round, equal and reactive to light and accommodation. Visual hauser is right upper quadrant homonymous anopsia to confrontation throughout. Extraocular movement is intact no nystagmus is noted. Facial sensation is decrease to touch over the right to touch. The facial strength is normal throughout. Hearing is normal bilaterally to hand rub. Tongue is midline and moved [id number] without any difficulty. No dysarthria is noted. Shoulder shrug is normal bilaterally. Motor: The strength is poor effort and initially 4 on the right side but with motivation it improves to 4+ to 5-. Has below the right knee amputation. Otherwise left side 5 over 5 throughout. Normal tone and bulk. Cerebellum: Normal finger to nose bilaterally. Sensation: Sensation is decreased to touch throughout. Some of the work-up during this hospital visit consisted of: Initial serum glucose in our facility is 203 Troponin is as high as 0.048. Panel is triglyceride is 613, cholesterol is 155, VDL 2021 and HDL is 27. - Labs CBC & Chem 7: 09/22/24 01:18 09/22/24 01:18 Labs: Abnormal Lab Results - Last 24 Hours (Table) 0609/22/24 09/23/24 Range/Units 18:21 20:12 06:04 POC Glucose (mg/dL) 188 H 221 H 172 H (70-110) mg/dL Triglycerides (0.00-149.00) mg/dL VLDL Cholesterol, Calc (5.00-40.00) mg/dL HDL Cholesterol (40.00-60.00) mg/dL 09/23/24 09/23/24 Range/Units 06:23 11:13 POC Glucose (mg/dL) 165 H (70-110) mg/dL Triglycerides 613.00 H (0.00-149.00) mg/dL VLDL Cholesterol, Calc 122.60 H (5.00-40.00) mg/dL HDL Cholesterol 27.40 L (40.00-60.00) mg/dL Assessment and Plan Assessment: This is a 44-year-old gentleman with multiple medical issues who presented from outside hospital for escalation of care for concerning of stroke. Acute right sided weakness, numbness and visual field deficit: Possible stroke but cannot rule out functional since with motivation has improvement with stregnth. Patient has multiple risk factors Slightly elevated troponin Hypertriglyceridemia History of stroke Underlying diabetes mellitus and the sugar is in the 200s Hypertension History of coronary artery disease status post stent History of congestive heart failure s/p AICD Plan: Patient is resumed on his home medication of aspirin 81 mg and Brilinta 90 mg 1 tablet twice daily. Unable to obtain MRI of the brain since patient has AICD that not MRI compatible for MRI techs Pending repeat CT head today. I ordered 2D echo yesterday by was cancelled by building energy retrofit technician. Recommend starting him on fenofibrate but will defer that management to primary team. Continue neurochecks Cardiac monitoring Will defer the rest of the medical management to primary and other specialist Consider cardiology consultation especially with the significant cardiac history and slightly elevated troponin. For the rest of the medical management the primary other specialist For DVT prophylaxis On subcu heparin 5000 units every 12 hours. Time with Patient: Less than 30
[2024-09-23 16:48] LABS: Glucose,Whole Blood 254 mg/dL (70-110)
[2024-09-23 20:10] LABS: Glucose,Whole Blood 355 mg/dL (70-110)
[2024-09-23 20:50] LABS: LDL Cholesterol,Direct Reflex 70.6 mg/dL (0.00-129.00)
[2024-09-23] MEDS: INSULIN LISPRO (HumaLOG) 100 UNIT/ML 10 mL VL SQ ONE (20:53)
--- NOTE | 2024-09-24 02:21 | PN ---
PROGRESS NOTE SUBJECTIVE: A 44-year-old white male concerning for diabetes mellitus, acute right arm hemiparesis and right lateral vision loss. He was worked up by Neurology for a TIA or CVA. Cardiology is following for elevated troponins, diabetes. We gave him home diabetic medications. OBJECTIVE: VITAL SIGNS: Blood pressure 133/84, 96% on room air, temperature 97.4, pulse 70s to 90s, and respiratory rate 18. LUNGS: Decreased breath sounds x4. MUSCULOSKELETAL: 50% strength in the right arm, until 70% intermittent. EXTREMITIES: Good movement x4. LABORATORY DATA: Triglycerides 613, cholesterol 155, possibly repeat brain CT, showed normal hyperdensity with intracranial lesions are negative. No infarcts. Sinusitis is cleared. The patient will possibly go home with physical therapy next day or 2. Compliance with his medications at home was stressed with him and he has been noncompliant. Please see further orders. MMODL / IJN: [id number] /
[2024-09-24 06:07] LABS: Glucose,Whole Blood 183 mg/dL (70-110)
[2024-09-24 11:38] LABS: Glucose,Whole Blood 266 mg/dL (70-110)
--- NOTE | 2024-09-24 13:47 | P.CNOR ---
History of Present Illness - [facility] Consult date: 09/24/24 Consult reason: other (Right upper extremity weakness and paresthesia) History of present illness: Patient is a 44-year-old male who was transferred down from [facility] on 09/22/2024 to our hospital with regards to acute onset right upper extremity weakness and paresthesias. There was concern for possible stroke, patient was admitted under internal medicine, neurology has also been following the patient. Patient is unable to have MRIs here due to implemented defibrillator. Our orthopedic team was also consulted for the weakness and paresthesias to the extremity. Patient was examined today at bedside, he is resting comfortably in his hospital bed. Patient has a very significant medical history, this to include a [id number] right leg amputation that was done last year down in [place]. Patient has a very extensive cardiac history also. Patient was told at her previous state he has significant lumbar degenerative disc disease. Up until recently has had no issues with his neck. He feels that the weakness is about the same since he has been here. He normally takes Granby 10 for other chronic pain. He denies any left upper extremity symptoms at this time, this to include weakness or paresthesias. Patient denies any recent trauma, this to include falls. Patient denies any loss of bowel or bladder function. He denies any genital or perineal numbness or tingling. Review of Systems Constitutional: Reports as per [facility] Past Medical History Past Medical History: Coronary Artery Disease (CAD), Chest Pain / Angina, Heart Failure, CVA/TIA, Diabetes Mellitus, Hyperlipidemia, Hypertension, Myocardial Infarction (DC), Respiratory Disorder, Sleep Apnea/CPAP/BIPAP, Syncope Additional Past Medical History / Comment(s): AICD. IDDM type II. Neuropathy bilateral feet. 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 Migraines. Chronic back pain. R BKA (done 2023). Last Myocardial Infarction Date:: 2023 History of Any Multi-Drug Resistant Organisms: None Reported Past Surgical History: AICD, Heart Catheterization, Heart Catheterization With Stent, Orthopedic Surgery Additional Past Surgical History / Comment(s): 10/27/12 AICD, DFTs, PCI with 2 stents, R BKA. Stent placemnet in August 2024 at [facility] Past Anesthesia/Blood Transfusion Reactions: No Reported Reaction Date of Last Stent Placement:: 08/2024 Type of Cardiac Device: AICD Device Placement Date:: 2012 Past Psychological History: Anxiety, Depression Additional Psychological History / Comment(s): rajesh . Smoking Status: Former smoker Past Alcohol Use History: None Reported Additional Past Alcohol Use History / Comment(s): quit in 2019 about 1/2 ppd Past Drug Use History: None Reported - Past Family History Mother Family Medical History: No Reported History Brother(s) Family Medical History: Myocardial Infarction (DC) Father Family Medical History: Liver Disease Sister(s) Additional Family Medical History / Comment(s): Huntings disease Medications and Allergies Home Medications Medication Instructions Recorded Confirmed Type Aspirin 81 mg PO DAILY #30 07/15/21 09/22/24 Rx Nitroglycerin Sl Tabs [Nitrostat] 0.4 mg SUBLINGUAL Q5M PRN #30 tab 07/15/21 09/22/24 Rx Lidocaine 4% Patch 1 patch TRANSDERM DAILY 05/08/24 09/22/24 History Atorvastatin [Lipitor] 80 mg PO HS #30 tab 05/13/24 09/22/24 Rx Ticagrelor [Brilinta] 90 mg PO BID #60 tab 05/13/24 09/22/24 Rx Ipratropium-Albuterol Nebulize 3 ml INHALATION RT-TID 30 Days 06/24/24 09/22/24 Rx [Duoneb 0.5 mg-3 mg/3 ml Soln] #120 each Isosorbide Mononitrate ER [Imdur] 120 mg PO DAILY 30 Days #30 tab 06/24/24 09/22/24 Rx amLODIPine [Norvasc] 5 mg PO DAILY 30 Days #30 tab 06/24/24 09/22/24 Rx Metoprolol Tartrate [Lopressor] 50 mg PO BID 30 Days #60 tab 07/01/24 09/22/24 Rx Acetaminophen Tab [Tylenol] 650 mg PO Q6HR PRN tab 07/15/24 09/22/24 Rx Colchicine [Colcrys] 0.6 mg PO DAILY 30 Days #30 each 07/15/24 09/22/24 Rx Ezetimibe [Zetia] 10 mg PO DAILY 90 Days #90 tab 07/15/24 09/22/24 Rx HYDROcodone/APAP 10-325MG [Granby 1 tab PO TID 07/15/24 09/22/24 History 10-325] Omeprazole [PriLOSEC] 40 mg PO DAILY 07/15/24 09/22/24 History Ranolazine [Ranexa] 1,000 mg PO Q12HR 30 Days #60 tab 07/15/24 09/22/24 Rx Semaglutide [Ozempic] 2 mg SQ TH 07/15/24 09/22/24 History Spironolactone [Aldactone] 25 mg PO DAILY 90 Days #90 tab 07/15/24 09/22/24 Rx Sacubitril/Valsartan [Entresto 24 1 tab PO BID 07/18/24 09/22/24 History mg-26 mg Tablet] Famotidine [Pepcid] 20 mg PO BID tab 07/19/24 09/22/24 Rx Mag Hydrox/Al Hydrox/Simeth 15 ml PO Q6HR PRN ml 07/19/24 09/22/24 Rx [Maalox] Insulin NPH Hum/Reg Insulin Hm 60 unit SQ BID 09/18/24 09/22/24 History [humuLIN 70/30 Kwikpen] Allergies Allergy/AdvReac Type Severity Reaction Status Date / Time Penicillins Allergy Unknown Verified 09/22/24 09:05 Childhood Physical Examination Gen: AOx3, NAD VSS stable at this time Integument: No open lesions or sores, areas of erythema or soft tissue swelling to the cervical spine Palpation: No significant tenderness with palpation around the midline or paravertebral cervical spine ROM: Range of motion adequate in the bilateral upper extremities, he does not have difficulty with forward elevation and shoulder abduction on the right side Sensory Exam: Senory exam to light touch is intact C5-T1, light touch defects are appreciated throughout the right upper extremity Senosry exam to light touch is intact L2-S1 Motor: 4-/5 strength appreciated in the right upper extremities with shoulder elevation, shoulder abduction, wrist extension, wrist flexion, elbow extension, elbow flexion, power press operator 5/5 strength. In the left upper extremity shoulder elation, shoulder abduction, wrist extension, wrist flexion, elbow extension, elbow flexion, power press operator Reflexes: Negative Leslie's bilaterally Results - Labs Labs: Abnormal Lab Results - Last 24 Hours (Table) 09/23/24 09/23/24 09/23/24 Range/Units 06:23 16:47 20:08 POC Glucose (mg/dL) 254 H 355 H (70-110) mg/dL Triglycerides 613.00 H (0.00-149.00) mg/dL VLDL Cholesterol, Calc 122.60 H (5.00-40.00) mg/dL HDL Cholesterol 27.40 L (40.00-60.00) mg/dL 09/24/24 09/24/24 Range/Units 06:06 11:35 POC Glucose (mg/dL) 183 H 266 H (70-110) mg/dL Triglycerides (0.00-149.00) mg/dL VLDL Cholesterol, Calc (5.00-40.00) mg/dL HDL Cholesterol (40.00-60.00) mg/dL H & H 09/22/24 Range/Units 01:18 Hgb 13.8 (13.0-17.0) g/dL Hct 42.6 (39.6-50.0) % Result Diagrams: 09/22/24 01:18 09/22/24 01:18 Assessment and Plan Assessment: Neck pain Right upper extremity weakness Right upper extremity paresthesia Severe cardiac history History of right lower extremity below the knee amputation Medical comorbidities Plan: I was able to discuss the case, this to include physical exam findings with my attending surgeon CT scan without contrast of the cervical spine has been ordered MRI is not obtainable at this hospital due to his pacemaker Pain control, resume normal medications DVT prophylaxis per primary medical service other Medical specialty recommendations appreciated further recommendations to follow Time with Patient: Less than 30
--- NOTE | 2024-09-24 14:15 | P.PN ---
Subjective Progress Note Date: 09/24/24 I am following up with the patient and he continues to feel like he is weak over the right side with numbness. According to the patient nurse that he is just requesting pain medication. Patient had a repeat CT of the head which was unremarkable for any acute process. Objective - Vital Signs Vital signs: Vital Signs Temp 97.8 F 09/24/24 12:00 Pulse 82 09/24/24 12:00 Resp 18 09/24/24 12:00 BP 114/69 09/24/24 12:00 Pulse Ox 97 09/24/24 12:00 FiO2 Intake & Output 09/23/24 09/24/24 09/24/24 18:59 06:59 18:59 Intake Total 1228 30 1116 Balance 1228 30 1116 Weight 130.4 kg Intake: IV 30 Invasive Line 1 10 Invasive Line 3 20 Intake, IV Titration 0 Amount Sodium Chloride 0.9% 1, 0 000 ml @ 100 mls/hr IV . Q10H KSENIA Rx#:[id number] Oral 1228 1116 Other: Voiding Method Toilet Toilet Urinal Urinal # Voids 1 # Bowel Movements 0 - Exam GENERAL: The patient is lying in bed and is not in acute distress. NEUROLOGICAL: Higher mental function: The patient is awake, alert, oriented to self, place and time. Patient is following commands. No aphasia and no neglect. Cranial nerves: The pupils are round, equal and reactive to light and accommodation. Visual hauser is right upper quadrant homonymous anopsia to confrontation throughout. Extraocular movement is intact no nystagmus is noted. Facial sensation is decrease to touch over the right to touch. The facial strength is normal throughout. Hearing is normal bilaterally to hand rub. Tongue is midline and moved [id number] without any difficulty. No dysarthria is noted. Shoulder shrug is normal bilaterally. Motor: The strength is poor effort and initially 4 on the right side but with motivation it improves to 4+ to 5-. Has below the right knee amputation. Otherwise left side 5 over 5 throughout. Normal tone and bulk. Cerebellum: Normal finger to nose bilaterally. Sensation: Sensation is decreased to touch throughout. Some of the work-up during this hospital visit consisted of: Initial serum glucose in our facility is 203 Troponin is as high as 0.048. Panel is triglyceride is 613, cholesterol is 155, VDL 2021 and HDL is 27. Repeat CT of the head is reported as no acute intracranial process. I personally reviewed the CT and I agree with the report. Patient had a recent 2D echo on 08/31/2024 and it is reported as technically difficult study endocardial margins were not well-seen. Echo contrast was used. There is moderate decreased in contractility globally. Carotid duplex on 06/29/2024 is reported as no hemodynamically significant stenosis bilaterally - Labs CBC & Chem 7: 09/22/24 01:18 09/22/24 01:18 Labs: Abnormal Lab Results - Last 24 Hours (Table) 09/23/24 09/23/24 09/23/24 Range/Units 06:23 16:47 20:08 POC Glucose (mg/dL) 254 H 355 H (70-110) mg/dL Triglycerides 613.00 H (0.00-149.00) mg/dL VLDL Cholesterol, Calc 122.60 H (5.00-40.00) mg/dL HDL Cholesterol 27.40 L (40.00-60.00) mg/dL 09/24/24 09/24/24 Range/Units 06:06 11:35 POC Glucose (mg/dL) 183 H 266 H (70-110) mg/dL Triglycerides (0.00-149.00) mg/dL VLDL Cholesterol, Calc (5.00-40.00) mg/dL HDL Cholesterol (40.00-60.00) mg/dL Assessment and Plan Assessment: This is a 44-year-old gentleman with multiple medical issues who presented from outside hospital for escalation of care for concerning of stroke. Acute right sided weakness, numbness and visual field deficit: Possible stroke but cannot rule out functional since with motivation has improvement with strength. Patient has multiple risk factors. Two CT head is negative for acute process. Unable to obtain MRI Brain since has AICD. There is concern for pain s eeking Slightly elevated troponin Hypertriglyceridemia History of stroke Underlying diabetes mellitus and the sugar is in the 200s Hypertension History of coronary artery disease status post stent History of congestive heart failure s/p AICD Plan: Patient is resumed on his home medication of aspirin 81 mg and Brilinta 90 mg 1 tablet twice daily. Unable to obtain MRI of the brain since patient has AICD that not MRI compatible for MRI techs Recommend starting him on fenofibrate but will defer that management to primary team. Continue neurochecks Cardiac monitoring Will defer the rest of the medical management to primary and other specialist Consider cardiology consultation especially with the significant cardiac history and slightly elevated troponin. Recommend the patient to follow-up with a pain specialist regarding his ongoing pain. For the rest of the medical management the primary other specialist For DVT prophylaxis On subcu heparin 5000 units every 12 hours. Upon discharge, recommend the patient to follow-up with neurologist as outpatient within 2-3 weeks. There is no further neurological work-up. Will sign off. Please reconsult if needed. Time with Patient: Less than 30
--- NOTE | 2024-09-24 14:55 | P.PN ---
Subjective Progress Note Date: 09/24/24 Reason for Consult (text): Known cardiac history and positive troponin History of present illness: This is a 44-year-old male patient of Dr. Hernandez with past medical history of extensive CAD, ischemic cardiomyopathy with EF of 30 to 35% status post AICD, hypertension, dyslipidemia, overweight, right below the knee amputation. Patient was recently hospitalized 08/29/2024 and underwent left heart catheterization which showed patent LAD stent, PATTERNMAKER PLASTER of known LC, occluded distal RCAx and medical management was advised. He underwent TAYLOR 09/01/2024 with no evidence of cardiac source of embolization, no vegetation no pericardial effusion. Echocardiogram showed EF 40-45% without evidence of thrombus. He was subsequently admitted on 09/18 for chest tightness and had a syncopal episode lasting 1 minute and witnessed by family members. He had received 1 nitroglycerin by EMS and had little relief. His troponins were elevated at that time of 0.192, 0.208 and 0.188. CTA of the chest was negative for PE. We have been asked to evaluate the patient for known cardiac history and positive troponins. Patient states that he went to [facility] due to weakness in his right arm and because there was concern for stroke, patient was transferred to [facility]. Patient states that he has a little chest pain which is always present. He states he when he took a nap he woke up and he was feeling his heart race in the morning. Blood pressure 123/84, heart rate 74, pulse ox 98% on room air. -EKG: None -Laboratory studies: WBC 9.2, hemoglobin 13.8, sodium 136, potassium 4.4, BUN 25 creatinine 0.95. Troponins 0.041, 0.048, 0.041. Triglycerides 613, cholesterol 155. -Home cardiac medications: Amlodipine 5 mg daily, aspirin 81 mg daily, atorvastatin 80 mg at bedtime, Zetia 10 mg daily, Imdur 120 mg daily, Lopressor 50 mg twice daily, Nitrostat as needed, Ranexa 1000 mg every 12 hours, Entresto 24-26 mg 1 tablet twice daily, spironolactone 25 mg daily, Brilinta 90 mg twice daily, patient is also on Ozempic. -Limited echocardiogram performed on 08/30/2024 revealed EF of 40 to 45%, technically difficult study. 09/24 Patient seen and examined. Patient states that he still has very little movement of his right arm. He has his normal chest tightness that is unchanged. He is followed by neurology and orthopedic surgery has been added. Blood pressure 114/69, heart rate 82, pulse ox 97% on room air. Physical examination: Gen: This is a 44-year-old male in no acute distress VS: reviewed HEENT: Head is atraumatic, normocephalic. Pupils equal, round. Sclerae is anicteric. NECK: Supple. No JVD. LUNGS: Clear to auscultation. No wheezes or rhonchi. No intercostal retractions. HEART: Regular rate and rhythm. Systolic murmur. ABDOMEN: Soft No tenderness. EXTREMITIES: No pedal edema. No calf tenderness. NEUROLOGICAL: Patient is awake, alert and oriented x3. Assessment: Right arm weakness Elevated troponin and flat pattern not indicative of acute coronary syndrome Atypical chest pain, chronic Several hospitalizations for NSTEMI Severe CAD status post multiple PCI as above Dyslipidemia Diabetes mellitus type 2 Obesity with BMI of 36 Right below the knee amputation Ischemic cardiomyopathy with with most recent EF of 40 to 45% Status post AICD Hypertension PAD Plan: Continue patient's home cardiac medications Neurology and orthopedics on consult No need to repeat echocardiogram No further cardiac workup at this time Cardiology will sign off this case and follow on an as-needed basis. Please reconsult for any new concerns. Patient may follow-up with Dr. Hernandez in the office in one to 2 weeks. Nurse practitioner note has been reviewed, I agree with documented findings and plan of care. Patient was seen and examined. Objective - Vital Signs Vital signs: Vital Signs Temp 97.8 F 09/24/24 08:35 Pulse 84 09/24/24 08:35 Resp 18 09/24/24 08:35 BP 124/75 09/24/24 08:35 Pulse Ox 98 09/24/24 08:35 FiO2 Intake & Output 09/23/24 09/24/24 09/24/24 18:59 06:59 18:59 Intake Total 1228 30 1116 Balance 1228 30 1116 Weight 130.4 kg Intake: IV 30 Invasive Line 1 10 Invasive Line 3 20 Oral 1228 1116 Other: Voiding Method Toilet Toilet Urinal Urinal # Voids 1 - Labs CBC & Chem 7: 09/22/24 01:18 09/22/24 01:18 Labs: Abnormal Lab Results - Last 24 Hours (Table) 09/23/24 09/23/24 09/23/24 Range/Units 06:23 16:47 20:08 POC Glucose (mg/dL) 254 H 355 H (70-110) mg/dL Triglycerides 613.00 H (0.00-149.00) mg/dL VLDL Cholesterol, Calc 122.60 H (5.00-40.00) mg/dL HDL Cholesterol 27.40 L (40.00-60.00) mg/dL 09/24/24 09/24/24 Range/Units 06:06 11:35 POC Glucose (mg/dL) 183 H 266 H (70-110) mg/dL Triglycerides (0.00-149.00) mg/dL VLDL Cholesterol, Calc (5.00-40.00) mg/dL HDL Cholesterol (40.00-60.00) mg/dL
[2024-09-24 16:42] LABS: Glucose,Whole Blood 236 mg/dL (70-110)
--- NOTE | 2024-09-24 17:31 | CT ---
EXAMINATION TYPE: CT cervical spine wo con DATE OF EXAM: 09/24/2024 COMPARISON: CT cervical spine December 07, 2021 CLINICAL INDICATION: Male, 44 years old with history of right sided upper extremity weakness/parathes ias, right sided upper extremity weakness/parathesias, pain TECHNIQUE: CT scan of the cervical spine is obtained without contrast, axial images are obtained, sa gittal and coronal reformatted images are also reviewed. CT DLP: 691.7 mGycm. Automated Exposure Control for Dose Reduction was Utilized. Contrast: , patient injected with mL of ., (none if empty) FINDINGS: Cervical spine is visualized in its entirety from C1 through upper thoracic levels, demonst rates stabilization satisfactory alignment without evidence of acute fracture or dislocation. Prever tebral soft tissue appears within normal limits. The C1-C2 articulation is within normal limits on t he coronal images. Vertebral body heights and disc space heights are within normal limits. Spinal can al is grossly preserved. No new large disc herniations are seen. Thyroid gland is normal in size. Misha g apices show no pneumothorax. IMPRESSION: There is no acute findings evident in the cervical spine. MRI more sensitive in evaluati ng disc disease. [facility], , 09/24/2024 5:28 PM
[2024-09-24] MEDS ORDERED: DEXTROSE 50% SYRINGE 50 ML IVP PRN ×2 (19:26)
[2024-09-24 20:04] LABS: Glucose,Whole Blood 238 mg/dL (70-110)
[2024-09-24] MEDS: INSULIN LISPRO (HumaLOG) 100 UNIT/ML 10 mL VL SQ SCH (20:37)
[2024-09-25 06:04] LABS: Glucose,Whole Blood 166 mg/dL (70-110)
[2024-09-25 11:26] LABS: Glucose,Whole Blood 198 mg/dL (70-110)
--- NOTE | 2024-09-25 14:01 | P.PN ---
Subjective Progress Note Date: 09/25/24 Principal diagnosis: Right upper extremity paresthesias and weakness Patient was evaluated at bedside, he is resting in his hospital bed. He states that the right upper extremity symptoms seem slightly improved since yesterday. He had a CT scan of the cervical spine which showed no acute osseous abnormalities. Objective - Vital Signs Vital signs: Vital Signs Temp 97.6 F 09/25/24 08:35 Pulse 88 09/25/24 08:35 Resp 16 09/25/24 08:35 BP 125/83 09/25/24 08:35 Pulse Ox 97 09/25/24 08:35 FiO2 Intake & Output 09/24/24 09/25/24 09/25/24 18:59 06:59 18:59 Intake Total 1560 360 680 Balance 1560 360 680 Weight 130.4 kg Intake: Intake, IV Titration 0 Amount Sodium Chloride 0.9% 1, 0 000 ml @ 100 mls/hr IV . Q10H KSENIA Rx#:[id number] Oral 1560 360 680 Other: Voiding Method Toilet Urinal # Voids 1 # Bowel Movements 0 - Exam Gen: AOx3, NAD VSS stable at this time Integument: No open lesions or sores, areas of erythema or soft tissue swelling to the cervical spine Palpation: No significant tenderness with palpation around the midline or paravertebral cervical spine ROM: Range of motion adequate in the bilateral upper extremities, he does not have difficulty with forward elevation and shoulder abduction on the right side Sensory Exam: Senory exam to light touch is intact C5-T1, light touch defects are appreciated throughout the right upper extremity Senosry exam to light touch is intact L2-S1 Motor: 4-/5 strength appreciated in the right upper extremities with shoulder elevation, shoulder abduction, wrist extension, wrist flexion, elbow extension, elbow flexion, open hearth helper 5/5 strength. In the left upper extremity shoulder elation, shoulder abduction, wrist extension, wrist flexion, elbow extension, elbow flexion, open hearth helper Reflexes: Negative Leslie's bilaterally - Labs CBC & Chem 7: 09/22/24 01:18 09/22/24 01:18 Labs: Abnormal Lab Results - Last 24 Hours (Table) 09/24/24 09/24/24 09/25/24 Range/Units 16:40 20:02 06:03 POC Glucose (mg/dL) 236 H 238 H 166 H (70-110) mg/dL 09/25/24 Range/Units 11:23 POC Glucose (mg/dL) 198 H (70-110) mg/dL Assessment and Plan Assessment: Neck pain Right upper extremity weakness Right upper extremity paresthesia Severe cardiac history 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 Martin's and. No orthopedic surgical intervention recommended at this time Continue conservative measures Pain control, resume normal medications DVT prophylaxis per primary medical service other Other medical specialty recommendations appreciate On orthopedic standpoint patient remained stable, he can follow-up in the outpatient setting on an as-needed basis.
[2024-09-25 16:23] LABS: Glucose,Whole Blood 245 mg/dL (70-110)
[2024-09-25 19:46] LABS: Glucose,Whole Blood 256 mg/dL (70-110)
--- NOTE | 2024-09-26 01:03 | PN ---
PROGRESS NOTE SUBJECTIVE: The patient was seen by Dr. Quintana for cervicothoracic radiculopathy. Orthopedic signed off. No surgical intervention will be done, wait for Dr. Huynh prior to going home. Plans, see further orders. MMODL / IJN: [id number] /
[2024-09-26 04:38] VITALS: TEMP 97.6
[2024-09-26 05:47] LABS: Glucose,Whole Blood 176 mg/dL (70-110)
[2024-09-26 09:06] VITALS: RESP 18
[2024-09-26 11:07] LABS: Glucose,Whole Blood 287 mg/dL (70-110)
[2024-09-26 11:25] VITALS: BP 133/85; PULSE 88
--- NOTE | 2024-09-30 12:24 | CDI ---
Documentation Clarification Form Date: 09/30/2024 12:05:56 PM From: Angela Mcgarry Admit Date: 09/22/2024 01:08:00 AM Patient Name: Shaun Roldan Visit Number: [id number] Discharge Date: 09/26/2024 12:34:00 PM ATTENTION: The Clinical Documentation Specialists (CDI) and [facility] Coding Staff appreciate your assistance in clarifying documentation. Please respond to the clarification below the line at the bottom and electronically sign. The CDI & [facility] Coding staff will review the response and follow-up if needed. Please note: Queries are made part of the Legal Health Record. If you have any questions, please contact the author of this message via ITS. Doctor/Provider: Carlo Espinal The patients principal diagnosis the diagnosis that was chiefly responsible for the admission - has not been clearly identified and clarification is requested. The patient presented with the following, right sided weakness and paresthesia and visual field deficit slightly elevated troponin, history of stroke, underlying DM, HTN, CAD status post stent history of CHF S/P AICD. Ortho - neck pain- cervicothoracic radiculopathy (cannot have MRI due to AICD) . Cardiology w/u for elevated troponins, Neuro w/u for stroke. Clinical Indicators: Lab findings: triglycerides 613, Troponins .041, .048 .041 Radiology findings: CT of brain No intracranial process. Vital Signs: 98.6 F, 83 bpm, 20, 141/92, 98% RA Treatment: Neuro Checks, CT head, Cardiac monitoring Consults: Orthopedic, cardiology and neurology In your professional opinion, can you please clarify which diagnosis, after study, was the reason chiefly responsible for the admission? [ ] Acute CVA [ ] Radiculopathy cervicothoracic region [ ] Other, please specify [ ] Unable to determine MTDD
--- NOTE | 2024-10-02 00:36 | PN ---
PROGRESS NOTE Radiculopathy of cervical thoracic region, CVA is ruled out. MMODL / IJN: [id number] /
--- NOTE | 2024-10-15 10:57 | P.PAINPG ---
Objective - Vital Signs Vital signs: Vital Signs Temp 97.8 F 09/24/24 15:40 Pulse 84 09/24/24 15:40 Resp 18 09/24/24 15:40 BP 119/79 09/24/24 15:40 Pulse Ox 94 L 09/24/24 15:40 FiO2 Intake & Output 09/23/24 09/24/24 09/24/24 18:59 06:59 18:59 Intake Total 1228 30 1116 Balance 1228 30 1116 Weight 130.4 kg Intake: IV 30 Invasive Line 1 10 Invasive Line 3 20 Intake, IV Titration 0 Amount Sodium Chloride 0.9% 1, 0 000 ml @ 100 mls/hr IV . Q10H KSENIA Rx#:[id number] Oral 1228 1116 Other: Voiding Method Toilet Toilet Urinal Urinal # Voids 1 # Bowel Movements 0 - Labs CBC & Chem 7: 09/22/24 01:18 09/22/24 01:18 Labs: Abnormal Lab Results - Last 24 Hours (Table) 09/23/24 09/23/24 09/23/24 Range/Units 06:23 16:47 20:08 POC Glucose (mg/dL) 254 H 355 H (70-110) mg/dL Triglycerides 613.00 H (0.00-149.00) mg/dL VLDL Cholesterol, Calc 122.60 H (5.00-40.00) mg/dL HDL Cholesterol 27.40 L (40.00-60.00) mg/dL 09/24/24 09/24/24 Range/Units 06:06 11:35 POC Glucose (mg/dL) 183 H 266 H (70-110) mg/dL Triglycerides (0.00-149.00) mg/dL VLDL Cholesterol, Calc (5.00-40.00) mg/dL HDL Cholesterol (40.00-60.00) mg/dL PQRS Measure Charge Sheet Comment: HISTORY OF PRESENT ILLNESS: A 44 yr old inpatient male as a referral from Dr Espinal presents today w severe acute cervicothoracic pain and RUE weakness for evaluation. Pt transferred from [facility] w new onset of RUE weakness. MRI is contraindic ated due to AICD. CT Brain reviewed with no acute process. CT cervical spine ordered today and was examined minutes before leaving for imaging. Pt states pain level is provoked at 7 /10 in intensity, constant, localized in the lower cervical spine, predominantly axial, achy in character w occasional shooting pain towards the RUE. Pain is provoked by any movement. Pain is alleviated by medications, repositioning and rest . PMH: OA, CAD, Angina, Heart Failure, CVA/TIA, NIDDM II, Hyperlipidemia, HTN, [place] (2023), SP, MDD/ Anxiety PSH: AICD (2012), Heart Catheterization, Heart Catheterization With Stent, PCI w 2 Stents (last 2024), R BKA (2023) SH: Former tobacco user, No ETOH abuse, No illicit drug use FH: Mo- No Reported History. Fa- Liver Disease. Sis- Chester's Disease All: See list Medications include ASA, Brillinta, Heparin, [place] 10/325mg TID REVIEW OF ORGAN SYSTEMS: CONSTITUTIONAL: No fevers or chills. No recent weight loss. NEUROLOGICAL: + numbness and tingling along the distal extremities. No seizure disorders or headaches. MUSCULOSKELETAL: + pain PSYCHIATRIC: Denies current depression or suicidal thoughts. Physical Examinations : Constitutional : Cooperative , not in acute distress . Neurologic : Cranial nerve II to XII intact. No focal neurological deficits. Psychiatric : alert & oriented x 3. Matching mood & appropriate affect. Judgment & insight intact. Musculoskeletal : Cervical Spine Motor strength in the deltoid and biceps: Normal right side. Normal Left side Motor strength biceps and the wrist extensors: Normal right side . Normal left side Motor strength in the triceps muscle: Normal right side. Normal left side Deep tendon reflexes: Normal at the biceps. Normal at Brachioradialis. Normal at triceps Vertebral body tenderness to deep palpation over Cervical facet loading test: positive bilaterally Spurling test: positive bilaterally Neck distraction test: positive bilaterally Leslie sign: positive bilaterally Lumbar spine Motor strength lower extremities ,thigh and legs 5/5 Right side , 5/5 Left side Deep tendon reflexes : Normal Knee Jerk. Normal Ankle Jerk Vertebral body tenderness over Espinoza Test positive Lumbar facet Loading Test: positive Right / positive Left Range of motion of the lumbar spine Flexion 30 degrees, extension 10 degrees Straight Leg Raise test: Left/ Right positive at degrees Marie test: positive right / positive left. Severe tenderness over the Sacroiliac joint on the Right / Left sides Gaenslen test: positive bilaterally Seated flexion test: positive bilaterally. Sacral spine : Severe tenderness over the Sacroiliac joint: right side / left side Range of motion: Flexion of the lumbar spine <60 degrees Range of motion: Extension of the lumbar spine <20 degrees Gaenslen's Test positive Marie test: positive right side / left side Thigh Thrust Test Sacral Thrust Test Imaging: CT non contrast brain from 09/22/[address] non contrast cervical spine pending Assessment/ Plan : Cervical radiculopathy Intervention is based on imaging results which could be available later tonight or tomorrow. All questions answered. I have spent greater than 30 minutes on patient care today. Dr Huynh was available by phone for the evaluation of this patient. The time was used to review the medical records including relevant urine studies and Prescription history (MAPs), review of the available imaging, evaluation and examination of the patient, coordination of care with the medical staff and if applicable referring physicians, as well as creation of the medical record - Pain Location Chest Non-Pharmacological Interventions: Darkened Room, Distraction Pharmacological Interventions: Scheduled Medication Pain Comment: patient sleeping prior to vitals assessment PQRS Narrative: Smoking Status Former smoker Blood Pressure [Right Arm] 119/79 Blood Pressure 122/85 Pain Intensity [Chest] 0 Pain Intensity 7 Pain Scale Used Numeric (1 - 10) Scale Used see MAR Home Medications: Ambulatory Orders Aspirin 81 mg PO DAILY #30 07/15/21 Nitroglycerin Sl Tabs [Nitrostat] 0.4 mg SUBLINGUAL Q5M PRN #30 tab 07/15/21 Lidocaine 4% Patch 1 patch TRANSDERM DAILY 05/08/24 Atorvastatin [Lipitor] 80 mg PO HS #30 tab 05/13/24 Ticagrelor [Brilinta] 90 mg PO BID #60 tab 05/13/24 Ipratropium-Albuterol Nebulize [Duoneb 0.5 mg-3 mg/3 ml Soln] 3 ml INHALATION RT-TID 30 Days #120 each 06/24/24 Isosorbide Mononitrate ER [Imdur] 120 mg PO DAILY 30 Days #30 tab 06/24/24 amLODIPine [Norvasc] 5 mg PO DAILY 30 Days #30 tab 06/24/24 Acetaminophen Tab [Tylenol] 650 mg PO Q6HR PRN tab 07/15/24 Colchicine [Colcrys] 0.6 mg PO DAILY 30 Days #30 each 07/15/24 Ezetimibe [Zetia] 10 mg PO DAILY 90 Days #90 tab 07/15/24 HYDROcodone/APAP 10-325MG [[place] 10-325] 1 tab PO TID 07/15/24 Omeprazole [PriLOSEC] 40 mg PO DAILY 07/15/24 Ranolazine [Ranexa] 1,000 mg PO Q12HR 30 Days #60 tab 07/15/24 Semaglutide [Ozempic] 2 mg SQ TH 07/15/24 Spironolactone [Aldactone] 25 mg PO DAILY 90 Days #90 tab 07/15/24 Sacubitril/Valsartan [Entresto 24 mg-26 mg Tablet] 1 tab PO BID 07/18/24 Famotidine [Pepcid] 20 mg PO BID tab 07/19/24 Mag Hydrox/Al Hydrox/Simeth [Maalox] 15 ml PO Q6HR PRN ml 07/19/24 Insulin NPH Hum/Reg Insulin Hm [humuLIN 70/30 Kwikpen] 60 unit SQ BID 09/18/24 Metoprolol Succinate [Toprol XL] 200 mg PO DAILY 10/07/24 Controlled Substance Measures - Controlled Substance Measures Is patient prescribed a controlled substance at discharge?: No
== END 2024-09-26 12:34 | disposition home or self-care (01) | DRG 48 ==
LOC: EC 00:36 → 3SCARD 01:08
PROVIDERS: ADMIT Family Medicine; ATTEND Family Medicine
DX: M54.13 Radiculopathy, cervicothoracic region (principal); I50.22 Chronic systolic (congestive) heart failure; H54.7 Unspecified visual loss; I11.0 Hypertensive heart disease with heart failure; I25.2 Old myocardial infarction; Z87.891 Personal history of nicotine dependence; E11.40 Type 2 diabetes mellitus with diabetic neuropathy, unspecified; Z79.4 Long term (current) use of insulin; E66.9 Obesity, unspecified; I25.5 Ischemic cardiomyopathy; I25.10 Atherosclerotic heart disease of native coronary artery without angina pectoris; H53.40 Unspecified visual field defects; E78.1 Pure hyperglyceridemia; J44.89 Other specified chronic obstructive pulmonary disease; M51.369 Other intervertebral disc degeneration, lumbar region without mention of lumbar back pain or lower extremity pain; F32.A Depression, unspecified; F41.9 Anxiety disorder, unspecified; G43.909 Migraine, unspecified, not intractable, without status migrainosus; G47.33 Obstructive sleep apnea (adult) (pediatric); G89.29 Other chronic pain; Z68.36 Body mass index [BMI] 36.0-36.9, adult; Z79.02 Long term (current) use of antithrombotics/antiplatelets; Z79.01 Long term (current) use of anticoagulants; Z79.82 Long term (current) use of aspirin; Z79.85 Long-term (current) use of injectable non-insulin antidiabetic drugs; Z79.899 Other long term (current) drug therapy; Z86.73 Personal history of transient ischemic attack (TIA), and cerebral infarction without residual deficits; Z95.5 Presence of coronary angioplasty implant and graft; Z88.0 Allergy status to penicillin; Z95.810 Presence of automatic (implantable) cardiac defibrillator; Z89.511 Acquired absence of right leg below knee
CPT/HCPCS: 70450; 72125; 80053; 80061; 80320; 82009; 83721; 84484; 85025; 94640; 96360; 96361; 96372; 99285

== ENCOUNTER 2024-10-06 21:11 | Observation (INO) | payer OTHER ==
[2024-10-06 21:27] LABS: Glucose,Whole Blood 213 mg/dL (70-110)
[2024-10-06] MEDS ORDERED: NITROGLYCERIN SL TABS 0.4 MG TAB SUBLINGUAL PRN (21:35)
--- NOTE | 2024-10-06 21:38 | ED ---
Recheck HPI - General Chief Complaint: Recheck/Abnormal Lab/Rx Stated Complaint: chest pain Time Seen by Provider: 10/06/24 21:12 Source: EMS, RN notes reviewed, old records reviewed Mode of arrival: EMS Limitations: no limitations - History of Present Illness Initial Comments: This is a 44-year-old male to the ER for evaluation of chest pain excepted in transfer from outside facility for chest pain observation. -: hour(s) Returns Today for: persistent/worsening pain related to initial visit Symptoms Since Prior Visit: worsening pain Context: planned re-check, called for abnormal lab result Associated Symptoms: none Treatments Prior to Arrival: Given Pain Meds on - Related Data Home Medications Medication Instructions Recorded Confirmed Lidocaine 4% Patch 1 patch TRANSDERM DAILY 05/08/24 10/07/24 HYDROcodone/APAP 10-325MG [[place] 1 tab PO TID 07/15/24 10/07/24 10-325] Omeprazole [PriLOSEC] 40 mg PO DAILY 07/15/24 10/07/24 Semaglutide [Ozempic] 2 mg SQ TH 07/15/24 10/07/24 Sacubitril/Valsartan [Entresto 24 1 tab PO BID 07/18/24 10/07/24 mg-26 mg Tablet] Insulin NPH Hum/Reg Insulin Hm 60 unit SQ BID 09/18/24 10/07/24 [humuLIN 70/30 Kwikpen] Metoprolol Succinate [Toprol XL] 200 mg PO DAILY 10/07/24 10/07/24 Previous Rx's Medication Instructions Recorded Aspirin 81 mg PO DAILY #30 07/15/21 Nitroglycerin Sl Tabs [Nitrostat] 0.4 mg SUBLINGUAL Q5M PRN #30 tab 07/15/21 Atorvastatin [Lipitor] 80 mg PO HS #30 tab 05/13/24 Ticagrelor [Brilinta] 90 mg PO BID #60 tab 05/13/24 Ipratropium-Albuterol Nebulize 3 ml INHALATION RT-TID 30 Days 06/24/24 [Duoneb 0.5 mg-3 mg/3 ml Soln] #120 each Isosorbide Mononitrate ER [Imdur] 120 mg PO DAILY 30 Days #30 tab 06/24/24 amLODIPine [Norvasc] 5 mg PO DAILY 30 Days #30 tab 06/24/24 Acetaminophen Tab [Tylenol] 650 mg PO Q6HR PRN tab 07/15/24 Colchicine [Colcrys] 0.6 mg PO DAILY 30 Days #30 each 07/15/24 Ezetimibe [Zetia] 10 mg PO DAILY 90 Days #90 tab 07/15/24 Ranolazine [Ranexa] 1,000 mg PO Q12HR 30 Days #60 tab 07/15/24 Spironolactone [Aldactone] 25 mg PO DAILY 90 Days #90 tab 07/15/24 Famotidine [Pepcid] 20 mg PO BID tab 07/19/24 Mag Hydrox/Al Hydrox/Simeth 15 ml PO Q6HR PRN ml 07/19/24 [Maalox] Allergies Allergy/AdvReac Type Severity Reaction Status Date / Time Penicillins Allergy Unknown Verified 10/07/24 10:17 Childhood Review of Systems ROS Statement: Those systems with pertinent positive or pertinent negative responses have been documented in the HPI. ROS Other: All systems not noted in ROS Statement are negative. Past Medical History Past Medical History: Coronary Artery Disease (CAD), Chest Pain / Angina, Heart Failure, CVA/TIA, Diabetes Mellitus, Hyperlipidemia, Hypertension, Myocardial Infarction ([place]), Respiratory Disorder, Sleep Apnea/CPAP/BIPAP, Syncope Additional Past Medical History / Comment(s): AICD. IDDM type II. Neuropathy bilateral feet. 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 Migraines. Chronic back pain. R BKA (done 2023). Last Myocardial Infarction Date:: 2023 History of Any Multi-Drug Resistant Organisms: None Reported Past Surgical History: AICD, Heart Catheterization, Heart Catheterization With Stent, Orthopedic Surgery Additional Past Surgical History / Comment(s): 10/27/12 AICD, DFTs, PCI with 2 stents, R BKA. Stent placemnet in August 2024 at [facility] Past Anesthesia/Blood Transfusion Reactions: No Reported Reaction Date of Last Stent Placement:: 08/2024 Type of Cardiac Device: AICD Device Placement Date:: 2012 Past Psychological History: Anxiety, Depression Smoking Status: Former smoker Past Alcohol Use History: None Reported Past Drug Use History: None Reported - Past Family History Mother Family Medical History: No Reported History Brother(s) Family Medical History: Myocardial Infarction ([place]) Father Family Medical History: Liver Disease Sister(s) Additional Family Medical History / Comment(s): Huntings disease General Exam Limitations: no limitations General appearance: alert, in no apparent distress Head exam: Present: atraumatic, normocephalic, normal inspection Eye exam: Present: normal appearance, PERRL, EOMI. Absent: scleral icterus, conjunctival injection, periorbital swelling ENT exam: Present: normal exam, mucous membranes moist Neck exam: Present: normal inspection. Absent: tenderness, meningismus, lymphadenopathy Respiratory exam: Present: normal lung sounds bilaterally. Absent: respiratory distress, wheezes, rales, rhonchi, stridor Cardiovascular Exam: Present: regular rate, normal rhythm, normal heart sounds. Absent: systolic murmur, diastolic murmur, rubs, gallop, clicks GI/Abdominal exam: Present: soft, normal bowel sounds. Absent: distended, tenderness, guarding, rebound, rigid Extremities exam: Present: normal inspection, full ROM, normal capillary refill. Absent: tenderness, pedal edema, joint swelling, calf tenderness Back exam: Present: normal inspection Neurological exam: Present: alert, oriented X3, CN II-XII intact Psychiatric exam: Present: normal affect, normal mood Skin exam: Present: warm, dry, intact, normal color. Absent: rash Course Vital Signs 10/06/24 10/06/24 10/07/24 21:14 23:12 02:05 Temperature 98.3 F 97.6 F 97.9 F Pulse Rate 84 86 65 Respiratory 19 19 15 Rate Blood Pressure 128/94 134/89 125/75 O2 Sat by Pulse 97 97 98 Oximetry 10/07/24 10/07/24 10/07/24 03:56 05:00 06:14 Temperature Pulse Rate 80 78 81 Respiratory 18 18 18 Rate Blood Pressure 133/87 135/89 O2 Sat by Pulse 94 L 99 94 L Oximetry 10/07/24 10/07/24 10/07/24 09:47 13:51 14:26 Temperature Pulse Rate 80 79 73 Respiratory 18 20 Rate Blood Pressure 132/93 114/72 O2 Sat by Pulse 97 96 Oximetry 10/07/24 10/07/24 10/07/24 14:33 20:06 20:12 Temperature Pulse Rate 75 73 72 Respiratory 18 18 Rate Blood Pressure O2 Sat by Pulse Oximetry 10/07/24 10/07/24 21:29 22:07 Temperature Pulse Rate 80 75 Respiratory 20 20 Rate Blood Pressure 123/60 115/75 O2 Sat by Pulse 98 99 Oximetry - Reevaluation(s) Reevaluation #1: 10/06/24 21:37 Medical records reviewed Transfer paperwork included including elevated high sensitive activity troponin Reevaluation #2: 10/06/24 21:37 Patient still with chest pain here in the ER Reevaluation #3: 10/06/24 21:37 Patient informed of results questions answered Reevaluation #4: Was pt. sent in by a medical professional or institution ([facility], [facility], urgent care, hospital, or usp...) When possible be specific @ -no Did you speak to anyone other than the patient for history (EMS, parent, family, police, friend...)? What history was obtained from this source @ -no Did you review nursing and triage notes (agree or disagree)? Why? @ -agree Are old charts reviewed (outside hosp., previous admission, EMS record, old EKG, old radiological studies, urgent care reports/EKG's, usp records)? Report findings @ -yes Differential Diagnosis (chest pain, altered mental status, abdominal pain women, abdominal pain men, vaginal bleeding, weakness, fever, dyspnea, syncope, headache, dizziness, GI bleed, back pain, seizure, CVA, palpatations, mental health, musculoskeletal)? @ -prior EKG interpreted by me (3pts min.). @ -yes X-rays interpreted by me (1pt min.). @ -no CT interpreted by me (1pt min.). @ -no U/S interpreted by me (1pt. min.). @ -no What testing was considered but not performed or refused? (CT, X-rays, U/S, labs)? Why? @ -none What meds were considered but not given or refused? Why? @ -none Did you discuss the management of the patient with other professionals (professionals i.e. [facility], [facility], lab, RT, psych nurse, social work assistant, laboratory specialist, teacher, transport corps officer, caseworker protective services)? Give summary @ -no Was smoking cessation discussed for >3mins.? @ -no Was critical care preformed (if so, how long)? @ -no Were there social determinants of health that impacted care today? How? (Homelessness, low income, unemployed, alcoholism, drug addiction, transportation, low edu. Level, literacy, decrease access to med. care, shelter, rehab)? @ -none Was there de-escalation of care discussed even if they declined (Discuss DNR or withdrawal of care, Hospice)? DNR status @ -no What co-morbidities impacted this encounter? (DM, HTN, Smoking, COPD, CAD, Cancer, CVA, ARF, Chemo, Hep., AIDS, mental health diagnosis, sleep apnea, morbid obesity)? @ -none Was patient admitted / discharged? Hospital course, mention meds given and route, prescriptions, significant lab abnormalities, going to OR and other pertinent info. @ - 44 male excepted in transfer from outside facility for unstable angina acute chest pain. Patient will be admitted for cardiac observation Admitted Undiagnosed new problem with uncertain prognosis? @ -no Drug Therapy requiring intensive monitoring for toxicity (Heparin, Nitro, Insulin, Cardizem)? @ -no Were any procedures done? @ -no Diagnosis/symptom? @ -ACS, UA Acute, or Chronic, or Acute on Chronic? @ -Acute Uncomplicated (without systemic symptoms) or Complicated (systemic symptoms)? @ -Complicated Side effects of treatment? @ -no Exacerbation, Progression, or Severe Exacerbation? @ -exacerbation Poses a threat to life or bodily function? How? (Chest pain, [place], [place], pneumonia, PE, COPD, DKA, ARF, appy, cholecystitis, CVA, Diverticulitis, Homicidal, Suicidal, threat to staff... and all critical care pts) @ -yes with chest pain Reevaluation #5: Differential Chest Pain: Stable Angina, Unstable Angina, STEMI, NSTEMI Aortic Dissection, Pneumothorax, Musculoskeletal, Esophageal Spasm GERD, Cholecystitis, Pancreatitis, Zoster, this is not meant to be an all-inclusive list. - Consultations Consultation #1: Spoke with Dr. Espinal who agrees to admit this patient Medical Decision Making - Medical Decision Making 44 male excepted in transfer from outside facility for unstable angina acute chest pain. Patient will be admitted for cardiac observation - Lab Data Result diagrams: 10/07/24 10:43 10/07/24 10:43 Lab Results 10/06/24 Range/Units 21:25 POC Glucose (mg/dL) 213 H (70-110) mg/dL POC [employer] Worker ID Fernanda Oliver Disposition Clinical Impression: Chest pain, Acute coronary syndrome, Unstable angina Disposition: ADMITTED IP TO THIS HOSP Condition: Fair Is patient prescribed a controlled substance at d/c from ED?: No Time of Disposition: 21:30
[2024-10-06] MEDS: HEPARIN SOD,PORK IN 0.45% NACL 25,000 UNIT in 0.45% NACL 1 250ML.BAG IV SCH (21:50)
[2024-10-06] MEDS: ATORVASTATIN 80 MG TAB PO SCH (23:12)
[2024-10-07] MEDS: MORPHINE SULFATE 4 MG/ML SYRINGE IV PRN (02:07)
[2024-10-07] MEDS: HEPARIN SODIUM 1,000 UN/ML (10ML VL) IV PRN (06:26)
[2024-10-07 08:30] LABS: VLDL Calculation 137.4 mg/dL (5.00-40.00)
[2024-10-07 08:47] LABS: Chol/HDL Ratio 7.32 Ratio; HDL Cholesterol 32.1 mg/dL (40.00-60.00)
[2024-10-07] MEDS: ASPIRIN 325 MG TAB PO SCH (09:49)
[2024-10-07] MEDS: METOPROLOL TARTRATE 25 MG TAB PO SCH (09:50)
--- NOTE | 2024-10-07 10:43 | P.CRDCN ---
History of Present Illness History of present illness: HISTORY OF PRESENT ILLNESS: This is a 44-year-old male with a past medical history significant for coronary artery disease, hypertension, hyperlipidemia, diabetes, peripheral arterial disease, and obesity. Patient follows in the office with Dr. Hernandez. We have been asked to see the patient in consultation for chest pain. Patient examined at the bedside in the emergency room. Patient states yesterday he was going for a walk with his daughter when he began to have chest discomfort. He states that he called his brother to pick him up and brought him to the hospital. He also reports having some pounding in his chest. He reports nausea but no vomiting. At the time of examination this morning he reports very mild chest discomfort. He was found to have elevated troponins and was started on IV heparin. Patient states he has an appointment scheduled in November at the [facility] for evaluation. DIAGNOSTICS: - EKG reveals sinus mechanism with no signs of acute ischemia. - Laboratory data: Troponin 0.132. 0.124 - Current home cardiac medications include amlodipine 5 mg daily, Brilinta 90 mg twice a day, Aldactone 25 mg daily, Entresto 24-26 mg twice a day, Ranexa 1000 mg twice a day, metoprolol succinate 200 mg daily, Imdur 120 mg daily, Zetia 10 mg daily, Lipitor 80 mg at night, aspirin 81 mg daily. - Most recent echocardiogram obtained in August 2024 revealing ejection fraction 40 to 45% with mild TR - Cardiac catheterization history: 08/2024 revealing patent stent in the LAD/diagonal bifurcation with no evidence of high-grade stenosis with KUMAR-3 flow, IMMIGRATION ASSOCIATE of the circumflex which is a known finding from before, distal occluded RCA which is a new finding from before with multiple layers of stents and known nonviable inferior myocardium REVIEW OF SYSTEMS: At the time of my exam: CONSTITUTIONAL: Denies fever or chills. HEENT: Denies blurred vision, vision changes, or eye pain. Denies hemoptysis CARDIOVASCULAR: Denies chest pain. Denies orthopnea. Denies PND. Denies palpitations RESPIRATORY: Denies shortness of breath. GASTROINTESTINAL: Denies abdominal pain. Denies nausea or vomiting. HEMATOLOGIC: Denies bleeding disorders. GENITOURINARY: Denies any blood in urine. SKIN: Denies pruitis. Denies rash. PHYSICAL EXAM: VITAL SIGNS: Reviewed. GENERAL: Well-developed in no acute distress. HEENT: Head is normocephalic. Pupils are equal, round. Sclerae anicteric. Mucous membranes of the mouth are moist. Neck supple. No JVD or thyromegaly LUNGS: Respirations even and unlabored. Lungs essentially clear to auscultation bilaterally. HEART: Regular rate and rhythm. S1 and S2 heard. ABDOMEN: Soft. Nondistended. Nontender. EXTREMITIES: Normal range of motion. No clubbing or cyanosis. Peripheral pulses intact. Right BKA NEUROLOGIC: Awake and alert. Oriented x 3. ASSESSMENT: Chest pain Chronically elevated troponins Several hospitalizations for NSTEMI Severe CAD status post multiple PCI, awaiting evaluation at [facility] Dyslipidemia Diabetes mellitus type 2 Right BKA Ischemic cardiomyopathy with with most recent EF of 40 to 45% Status post AICD Hypertension PAD History of medication noncompliance Obesity: BMI 37.7 PLAN: Continue IV heparin for 24 hours Resume home cardiac medications Do not resume colchicine Continue with medical management at this time. No plans for stress testing or cardiac catheterization Patient has an appointment scheduled in November to be evaluated at [facility] Possible discharge home tomorrow if patient remains stable Nurse practitioner note has been reviewed by physician. Signing provider agrees with the documented findings, assessment, and plan of care documented by WELDER FABRICATOR as a scribe. Past Medical History Past Medical History: Coronary Artery Disease (CAD), Chest Pain / Angina, Heart Failure, CVA/TIA, Diabetes Mellitus, Hyperlipidemia, Hypertension, Myocardial Infarction (NC), Respiratory Disorder, Sleep Apnea/CPAP/BIPAP, Syncope Additional Past Medical History / Comment(s): AICD. IDDM type II. Neuropathy bilateral feet. 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 Migraines. Chronic back pain. R BKA (done 2023). Last Myocardial Infarction Date:: 2023 History of Any Multi-Drug Resistant Organisms: None Reported Past Surgical History: AICD, Heart Catheterization, Heart Catheterization With Stent, Orthopedic Surgery Additional Past Surgical History / Comment(s): 10/27/12 AICD, DFTs, PCI with 2 stents, R BKA. Stent placemnet in August 2024 at [facility] Past Anesthesia/Blood Transfusion Reactions: No Reported Reaction Date of Last Stent Placement:: 08/2024 Type of Cardiac Device: AICD Device Placement Date:: 2012 Past Psychological History: Anxiety, Depression Smoking Status: Former smoker Past Alcohol Use History: None Reported Past Drug Use History: None Reported - Past Family History Mother Family Medical History: No Reported History Brother(s) Family Medical History: Myocardial Infarction ([place]) Father Family Medical History: Liver Disease Sister(s) Additional Family Medical History / Comment(s): Huntings disease Medications and Allergies Home Medications Medication Instructions Recorded Confirmed Type Aspirin 81 mg PO DAILY #30 07/15/21 10/07/24 Rx Nitroglycerin Sl Tabs [Nitrostat] 0.4 mg SUBLINGUAL Q5M PRN #30 tab 07/15/21 10/07/24 Rx Lidocaine 4% Patch 1 patch TRANSDERM DAILY 05/08/24 10/07/24 History Atorvastatin [Lipitor] 80 mg PO HS #30 tab 05/13/24 10/07/24 Rx Ticagrelor [Brilinta] 90 mg PO BID #60 tab 05/13/24 10/07/24 Rx Ipratropium-Albuterol Nebulize 3 ml INHALATION RT-TID 30 Days 06/24/24 10/07/24 Rx [Duoneb 0.5 mg-3 mg/3 ml Soln] #120 each Isosorbide Mononitrate ER [Imdur] 120 mg PO DAILY 30 Days #30 tab 06/24/24 10/07/24 Rx amLODIPine [Norvasc] 5 mg PO DAILY 30 Days #30 tab 06/24/24 10/07/24 Rx Acetaminophen Tab [Tylenol] 650 mg PO Q6HR PRN tab 07/15/24 10/07/24 Rx Colchicine [Colcrys] 0.6 mg PO DAILY 30 Days #30 each 07/15/24 10/07/24 Rx Ezetimibe [Zetia] 10 mg PO DAILY 90 Days #90 tab 07/15/24 10/07/24 Rx HYDROcodone/APAP 10-325MG [[place] 1 tab PO TID 07/15/24 10/07/24 History 10-325] Omeprazole [PriLOSEC] 40 mg PO DAILY 07/15/24 10/07/24 History Ranolazine [Ranexa] 1,000 mg PO Q12HR 30 Days #60 tab 07/15/24 10/07/24 Rx Semaglutide [Ozempic] 2 mg SQ TH 07/15/24 10/07/24 History Spironolactone [Aldactone] 25 mg PO DAILY 90 Days #90 tab 07/15/24 10/07/24 Rx Sacubitril/Valsartan [Entresto 24 1 tab PO BID 07/18/24 10/07/24 History mg-26 mg Tablet] Famotidine [Pepcid] 20 mg PO BID tab 07/19/24 10/07/24 Rx Mag Hydrox/Al Hydrox/Simeth 15 ml PO Q6HR PRN ml 07/19/24 10/07/24 Rx [Maalox] Insulin NPH Hum/Reg Insulin Hm 60 unit SQ BID 09/18/24 10/07/24 History [humuLIN 70/30 Kwikpen] Metoprolol Succinate [Toprol XL] 200 mg PO DAILY 10/07/24 10/07/24 History Allergies Allergy/AdvReac Type Severity Reaction Status Date / Time Penicillins Allergy Unknown Verified 10/07/24 10:17 Childhood Physical Exam Vitals: Vital Signs Temp Pulse Resp BP Pulse Ox 10/07/24 06:14 81 18 135/89 94 L 10/07/24 05:00 78 18 99 10/07/24 03:56 80 18 133/87 94 L 10/07/24 02:05 97.9 F 65 15 125/75 98 10/06/24 23:12 97.6 F 86 19 134/89 97 10/06/24 21:14 98.3 F 84 19 128/94 97 Intake and Output 10/06/24 10/07/24 10/07/24 22:59 06:59 14:59 Intake Total 86.394 Output Total 1100 Balance -1013.606 Intake: Intake, IV Titration 86.394 Amount Heparin Sod,Pork in 0.45% 86.394 NaCl 25,000 unit In 0.45 % NaCl 1 250ml.bag @ 7. 936 UNITS/KG/HR 10.007 mls/hr IV .Q24H [facility] Rx#: [id number] Output: Urine 1100 Other: Weight 126.099 kg Results Cardiac Enzymes 10/06/24 10/07/24 Range/Units 22:43 00:34 Troponin I 0.132 H* 0.124 H* (0.000-0.034) ng/mL Coagulation 10/07/24 Range/Units 04:05 APTT 31.2 H (22.0-30.0) sec Lipids 10/07/24 Range/Units 04:05 Triglycerides 687.00 H (0.00-149.00) mg/dL Cholesterol 235.00 H (0.00-200.00) mg/dL HDL Cholesterol 32.10 L (40.00-60.00) mg/dL Cholesterol/HDL Ratio 7.32 Ratio Current Medications Generic Name Dose Route Start Last Admin Trade Name Freq PRN Reason Stop Dose Admin Aspirin 325 mg 10/07/24 09:00 Aspirin 325 Mg Tab PO DAILY [facility] Atorvastatin Calcium 80 mg 10/06/24 22:00 10/06/24 23:12 Atorvastatin 80 Mg Tab PO Not Given DAILY [facility] Heparin Sodium (Porcine) 0 unit 10/07/24 06:18 10/07/24 06:26 Heparin Sodium 1,000 Un/Ml (10ml Vl) IV 3,150 unit PER PROTOCOL PRN Administration Low PTT Protocol Heparin Sodium/Sodium Chloride 250 mls @ 10.007 mls/hr 10/06/24 21:45 10/07/24 06:28 25,000 unit/ Sodium Chloride IV 9.936 units/kg/hr .Q24H [facility] 12.529 mls/hr Titration Protocol 7.936 UNITS/KG/HR Metoprolol Tartrate 25 mg 10/07/24 09:00 Metoprolol Tartrate 25 Mg Tab PO BID [facility] Morphine Sulfate 4 mg 10/06/24 21:35 10/07/24 06:31 Morphine Sulfate 4 Mg/Ml Syringe IV 4 mg Q4HR PRN Administration Chest Pain Nitroglycerin 0.4 mg 10/06/24 21:35 Nitroglycerin Sl Tabs 0.4 Mg Tab SUBLINGUAL Q5M PRN Chest Pain Intake and Output 10/06/24 10/07/24 10/07/24 22:59 06:59 14:59 Intake Total 86.394 Output Total 1100 Balance -1013.606 Intake: Intake, IV Titration 86.394 Amount Heparin Sod,Pork in 0.45% 86.394 NaCl 25,000 unit In 0.45 % NaCl 1 250ml.bag @ 7. 936 UNITS/KG/HR 10.007 mls/hr IV .Q24H [facility] Rx#: [id number] Output: Urine 1100 Other: Weight 126.099 kg
[2024-10-07] MEDS ORDERED: ACETAMINOPHEN TAB 325 MG TAB PO PRN (10:57)
[2024-10-07 11:12] LABS: Basophils # (A) 0.12 10*3/uL (0.00-0.10); Basophils % (A) 1.4 %; Eosinophils % (A) 4.6 %; HCT 42.7 % (39.6-50.0); HGB 13.8 g/dL (13.0-17.0); Lymphocytes # (A) 2.11 10*3/uL (0.90-5.00); Lymphocytes % (A) 24.2 %; MCH 23.6 pg (27.0-32.0); MCHC 32.3 g/dL (32.0-37.0); MCV 73.1 fL (80.0-97.0); Mean Platelet Volume 9.9 fL (9.5-12.2); Monocytes % (A) 9.2 %; Neutrophils % (A) 59.6 %; Platelet Count 232 10*3/uL (140-440); RBC 5.84 10*6/uL (4.40-5.60); RDW 17.8 % (11.5-14.5); WBC 8.72 10*3/uL (4.50-10.00)
[2024-10-07 11:22] LABS: ALT 17 U/L (4-49); AST 17 U/L (17-59); African American GFR (CKD) >90 (>60 ml/min/1.73 sqM); Albumin 3.4 g/dL (3.5-5.0); Albumin/Globulin Ratio 1.1; Alkaline Phosphatase 104 U/L (38-126); Anion Gap 8 mmol/L; Blood Urea Nitrogen 20 mg/dL (9-20); Calcium 8.4 mg/dL (8.4-10.2); Carbon Dioxide 24 mmol/L (22-30); Chloride 106 mmol/L (98-107); Glucose 185 mg/dL (74-99); Magnesium 2.2 mg/dL (1.6-2.3); Non-African American GFR(CKD) >90 (>60 ml/min/1.73 sqM); Sodium 138 mmol/L (137-145); Total Bilirubin 0.9 mg/dL (0.2-1.3); Total Protein 6.4 g/dL (6.3-8.2)
[2024-10-07] MEDS: EZETIMIBE 10 MG TAB PO SCH (12:16)
[2024-10-07] MEDS: amLODIPine 5 MG TAB PO SCH (12:16)
[2024-10-07] MEDS: METOPROLOL SUCCINATE (ER) 100 MG TAB.ER.24H PO SCH (12:17)
[2024-10-07] MEDS: ISOSORBIDE MONONITRATE ER 60 MG TAB.ER.24H PO SCH (12:17)
[2024-10-07] MEDS: TICAGRELOR 90 MG TAB PO SCH (12:17)
[2024-10-07] MEDS: SACUBITRIL/VALSARTAN 24 MG-26 MG TABLET PO SCH (12:17)
[2024-10-07] MEDS: RANOLAZINE 500 MG TAB.ER.12H PO SCH (12:17)
[2024-10-07] MEDS: SPIRONOLACTONE 25 MG TAB PO SCH (12:17)
[2024-10-07] MEDS: IPRATROPIUM-ALBUTEROL 3 ML NEB INHALATION SCH (14:25)
[2024-10-07] MEDS: HYDROcodone/APAP 10-325MG 1 EACH TAB PO SCH (15:33)
[2024-10-07] MEDS: INSULIN NPL/INSULIN LISPRO 100 UNIT/ML 10 ML VL (Humalog 75/25) SQ SCH (18:17)
[2024-10-07] MEDS: ATORVASTATIN 80 MG TAB PO SCH (22:21)
[2024-10-07] MEDS: FAMOTIDINE 20 MG TAB PO SCH (22:21)
[2024-10-08 06:03] LABS: Glucose,Whole Blood 214 mg/dL (70-110)
[2024-10-08] MEDS ORDERED: ASPIRIN 81 MG PO SCH (09:00)
[2024-10-08] MEDS: PANTOPRAZOLE 40 MG TABLET PO SCH (09:00)
[2024-10-08] MEDS: ASPIRIN 81 MG PO SCH (09:01)
[2024-10-08 11:47] LABS: Glucose,Whole Blood 147 mg/dL (70-110)
--- NOTE | 2024-10-08 13:43 | P.PN ---
Subjective Progress Note Date: 10/08/24 HISTORY OF PRESENT ILLNESS: This is a 44-year-old male with a past medical history significant for coronary artery disease, hypertension, hyperlipidemia, diabetes, peripheral arterial disease, and obesity. Patient follows in the office with Dr. Hernandez. We have been asked to see the patient in consultation for chest pain. Patient examined at the bedside in the emergency room. Patient states yesterday he was going for a walk with his daughter when he began to have chest discomfort. He states that he called his brother to pick him up and brought him to the hospital. He also reports having some pounding in his chest. He reports nausea but no vomiting. At the time of examination this morning he reports very mild chest discomfort. He was found to have elevated troponins and was started on IV heparin. Patient states he has an appointment scheduled in November at the [facility] for evaluation. DIAGNOSTICS: - EKG reveals sinus mechanism with no signs of acute ischemia. - Laboratory data: Troponin 0.132. 0.124 - Current home cardiac medications include amlodipine 5 mg daily, Brilinta 90 mg twice a day, Aldactone 25 mg daily, Entresto 24-26 mg twice a day, Ranexa 1000 mg twice a day, metoprolol succinate 200 mg daily, Imdur 120 mg daily, Zetia 10 mg daily, Lipitor 80 mg at night, aspirin 81 mg daily. - Most recent echocardiogram obtained in August 2024 revealing ejection fraction 40 to 45% with mild TR - Cardiac catheterization history: 08/2024 revealing patent stent in the LA D/diagonal bifurcation with no evidence of high-grade stenosis with KUMAR-3 flow, PLANT BREEDER of the circumflex which is a known finding from before, distal occluded RCA which is a new finding from before with multiple layers of stents and known nonviable inferior myocardium 10/08/2024 Patient seen and examined on the cardiac stepdown unit. He has had some episodes of pain 8 out of 10. He is requesting morphine every 4 hours. Blood pressure 134/77, heart rate in the 80s, pulse ox 99% on room air. No repeat blood work today. PHYSICAL EXAM: VITAL SIGNS: Reviewed. GENERAL: Well-developed in no acute distress. HEENT: Head is normocephalic. Pupils are equal, round. Sclerae anicteric. Mucous membranes of the mouth are moist. Neck supple. No JVD or thyromegaly LUNGS: Respirations even and unlabored. Lungs essentially clear to auscultation bilaterally. HEART: Regular rate and rhythm. S1 and S2 heard. ABDOMEN: Soft. Nondistended. Nontender. EXTREMITIES: Normal range of motion. No clubbing or cyanosis. Peripheral pulses intact. Right BKA NEUROLOGIC: Awake and alert. Oriented x 3. ASSESSMENT: Chest pain Chronically elevated troponins Several hospitalizations for NSTEMI Severe CAD status post multiple PCI, awaiting evaluation at [facility] Dyslipidemia Diabetes mellitus type 2 Right BKA Ischemic cardiomyopathy with with most recent EF of 40 to 45% Status post AICD Hypertension PAD History of medication noncompliance Obesity: BMI 37.7 PLAN: Discontinue IV heparin Continue home cardiac medications Do not resume colchicine Continue with medical management at this time. No plans for stress testing or cardiac catheterization Patient has an appointment scheduled in November to be evaluated at [facility] Patient is cleared for discharge from a cardiology perspective. Nurse practitioner note has been reviewed by physician. Signing provider agrees with the documented findings, assessment, and plan of care documented by BOTTOM SAW OPERATOR as a scribe. Objective - Vital Signs Vital signs: Vital Signs Temp 97.6 F 10/08/24 08:56 Pulse 83 10/08/24 08:56 Resp 19 10/08/24 08:56 BP 125/91 10/08/24 08:56 Pulse Ox 95 10/08/24 08:56 FiO2 Intake & Output 10/07/24 10/08/24 10/08/24 18:59 06:59 18:59 Intake Total 137.862 235.500 240 Balance 137.862 235.500 240 Weight 129.2 kg Intake: Intake, IV Titration 137.862 235.500 Amount Heparin Sod,Pork in 0.45% 137.862 235.500 NaCl 25,000 unit In 0.45 % NaCl 1 250ml.bag @ 7. 936 UNITS/KG/HR 10.007 mls/hr IV .Q24H [facility] Rx#: [id number] Oral 240 Other: Voiding Method Toilet Urinal - Labs CBC & Chem 7: 10/07/24 10:43 10/07/24 10:43 Labs: Abnormal Lab Results - Last 24 Hours (Table) 10/07/24 10/07/24 10/07/24 Range/Units 10:43 10:43 23:06 RBC 5.84 H (4.40-5.60) 10*6/uL MCV 73.1 L (80.0-97.0) fL MCH 23.6 L (27.0-32.0) pg RDW 17.8 H (11.5-14.5) % Immature Gran # 0.09 H (0.00-0.04) 10*3/uL Eosinophils # 0.40 H (0.04-0.35) 10*3/uL Basophils # 0.12 H (0.00-0.10) 10*3/uL APTT 33.5 H (22.0-30.0) sec Glucose 185 H (74-99) mg/dL POC Glucose (mg/dL) (70-110) mg/dL Albumin 3.4 L (3.5-5.0) g/dL 10/08/24 Range/Units 06:01 RBC (4.40-5.60) 10*6/uL MCV (80.0-97.0) fL MCH (27.0-32.0) pg RDW (11.5-14.5) % Immature Gran # (0.00-0.04) 10*3/uL Eosinophils # (0.04-0.35) 10*3/uL Basophils # (0.00-0.10) 10*3/uL APTT (22.0-30.0) sec Glucose (74-99) mg/dL POC Glucose (mg/dL) 214 H (70-110) mg/dL Albumin (3.5-5.0) g/dL
[2024-10-08 16:22] LABS: Glucose,Whole Blood 222 mg/dL (70-110)
[2024-10-08 20:09] LABS: Glucose,Whole Blood 292 mg/dL (70-110)
--- NOTE | 2024-10-09 00:57 | PN ---
PROGRESS NOTE SUBJECTIVE: A 44-year-old white male, being cleared by Cardiology. OBJECTIVE: CARDIOVASCULAR: S1, S2. LUNGS: Transmitted upper airway sounds. GI: Soft. HEMATOLOGY: Negative Homans. PSYCH: Fair mood and affect. ASSESSMENT: Atypical chest pain, asthma, chronic obstructive pulmonary disease with hypoxia respiratory failure. Prognosis guarded. Continue current treatment, updrafts, steroids. Prognosis guarded. Please see further orders. MMODL / IJN: [id number] /
[2024-10-09 05:59] LABS: Glucose,Whole Blood 191 mg/dL (70-110)
[2024-10-09 11:21] LABS: Glucose,Whole Blood 146 mg/dL (70-110)
[2024-10-09 12:16] VITALS: BP 113/73; PULSE 96; RESP 16; TEMP 97.7
--- NOTE | 2024-10-09 13:54 | P.PN ---
Subjective Progress Note Date: 10/09/24 HISTORY OF PRESENT ILLNESS: This is a 44-year-old male with a past medical history significant for coronary artery disease, hypertension, hyperlipidemia, diabetes, peripheral arterial disease, and obesity. Patient follows in the office with Dr. Hernandez. We have been asked to see the patient in consultation for chest pain. Patient examined at the bedside in the emergency room. Patient states yesterday he was going for a walk with his daughter when he began to have chest discomfort. He states that he called his brother to pick him up and brought him to the hospital. He also reports having some pounding in his chest. He reports nausea but no vomiting. At the time of examination this morning he reports very mild chest discomfort. He was found to have elevated troponins and was started on IV heparin. Patient states he has an appointment scheduled in November at the [facility] for evaluation. DIAGNOSTICS: - EKG reveals sinus mechanism with no signs of acute ischemia. - Laboratory data: Troponin 0.132. 0.124 - Current home cardiac medications include amlodipine 5 mg daily, Brilinta 90 mg twice a day, Aldactone 25 mg daily, Entresto 24-26 mg twice a day, Ranexa 1000 mg twice a day, metoprolol succinate 200 mg daily, Imdur 120 mg daily, Zetia 10 mg daily, Lipitor 80 mg at night, aspirin 81 mg daily. - Most recent echocardiogram obtained in August 2024 revealing ejection fraction 40 to 45% with mild TR - Cardiac catheterization history: 08/2024 revealing patent stent in the LA D/diagonal bifurcation with no evidence of high-grade stenosis with KUMAR-3 flow, FAGOT HEATER HELPER of the circumflex which is a known finding from before, distal occluded RCA which is a new finding from before with multiple layers of stents and known nonviable inferior myocardium 10/08/2024 Patient seen and examined on the cardiac stepdown unit. He has had some episodes of pain 8 out of 10. He is requesting morphine every 4 hours. Blood pressure 134/77, heart rate in the 80s, pulse ox 99% on room air. No repeat blood work today. 10/09/2024 No new concerns today. Blood pressure 113/73, heart rate 96, pulse ox 96% on room air. PHYSICAL EXAM: VITAL SIGNS: Reviewed. GENERAL: Well-developed in no acute distress. HEENT: Head is normocephalic. Pupils are equal, round. Sclerae anicteric. Mucous membranes of the mouth are moist. Neck supple. No JVD or thyromegaly LUNGS: Respirations even and unlabored. Lungs essentially clear to auscultation bilaterally. HEART: Regular rate and rhythm. S1 and S2 heard. ABDOMEN: Soft. Nondistended. Nontender. EXTREMITIES: Normal range of motion. No clubbing or cyanosis. Peripheral pulses intact. Right BKA NEUROLOGIC: Awake and alert. Oriented x 3. ASSESSMENT: Chest pain Chronically elevated troponins Several hospitalizations for NSTEMI Severe CAD status post multiple PCI, awaiting evaluation at [facility] Dyslipidemia Diabetes mellitus type 2 Right BKA Ischemic cardiomyopathy with with most recent EF of 40 to 45% Status post AICD Hypertension PAD History of medication noncompliance Obesity: BMI 37.7 PLAN: Continue home cardiac medications Do not resume colchicine Continue with medical management at this time. No plans for stress testing or cardiac catheterization Patient has an appointment scheduled in November to be evaluated at [facility] Patient is cleared for discharge from a cardiology perspective. Cardiology will sign off this case and follow on an as-needed basis. Please reconsult for any new concerns. Patient may follow-up in the office with Dr. Hernandez in one to 2 weeks. Nurse practitioner note has been reviewed by physician. Signing provider agrees with the documented findings, assessment, and plan of care documented by RN CARDIAC CATH as a scribe. Objective - Vital Signs Vital signs: Vital Signs Temp 98.1 F 10/09/24 07:45 Pulse 91 10/09/24 07:45 Resp 18 10/09/24 07:45 BP 141/98 10/09/24 07:45 Pulse Ox 99 10/09/24 07:45 FiO2 Intake & Output 10/08/24 10/09/24 10/09/24 18:59 06:59 18:59 Intake Total 720 1200 240 Balance 720 1200 240 Weight 130.7 kg Intake: Oral 720 1200 240 Other: Voiding Method Toilet Toilet Urinal Urinal # Voids 2 3 - Labs CBC & Chem 7: 10/07/24 10:43 10/07/24 10:43 Labs: Abnormal Lab Results - Last 24 Hours (Table) 10/08/24 10/08/24 10/08/24 Range/Units 11:45 16:21 20:07 POC Glucose (mg/dL) 147 H 222 H 292 H (70-110) mg/dL 10/09/24 Range/Units 05:57 POC Glucose (mg/dL) 191 H (70-110) mg/dL
--- NOTE | 2024-10-17 01:33 | HP ---
HISTORY AND PHYSICAL HISTORY OF PRESENT ILLNESS: A 44-year-old white male who presents to the ER as a transfer from a Hospital for atypical chest pain for Cardiology consult with some pain. He has missed his breathing treatments, seen at the hospital with chest pain and shortness of breath. HOME MEDICINES: 1. [place] 10 q.i.d. 2. Prozac 40 daily. 3. Ozempic 2 mg subcu . 4. Entresto 24/ b.i.d. 5. 60 units subcu b.i.d. of Humulin 70/30. 6. Toprol-XL 200 mg daily. ALLERGIES: Penicillin, please see further orders. PAST MEDICAL HISTORY: Coronary artery disease, chest pain, angina, heart failure, CVA, TIA, diabetes mellitus, dyslipidemia, hypertension, sleep apnea, migraines, chronic pain, neuropathy, insulin-dependent diabetes type 2. PAST SURGICAL HISTORY: AICD, heart catheterization with stent, orthopedic surgery. FAMILY HISTORY: Mother and brother with myocardial infarction. Father with liver disease. PHYSICAL EXAMINATION: VITAL SIGNS: Temperature 98.3, pulse 80s to 50s, blood pressure is 120s-130s/70s-80s, O2 97% on room air, and pulse 80s. PSYCH: Fair mood and affect. NEUROLOGIC: Alert and oriented x3. HEMATOLOGY: Negative Homans. PSYCH: Fair mood and affect. NEUROLOGIC: Cranial nerves intact. Pupils equal, round, reactive. ASSESSMENT AND PLAN: Atypical chest pain. Vital signs reviewed. Chronic obstructive pulmonary disease, coronary artery disease with right below-knee amputation, hypertension. Prognosis guarded. Cardiology consult. Continue with current treatments. MMODL / IJN: [id number] /
== END 2024-10-09 15:18 | disposition home or self-care (01) ==
LOC: EC 21:11 → 6NMEDSUR 21:35 → 1SOBS 10-07 17:24 → 3SCARD 10-07 19:58
PROVIDERS: ADMIT Family Medicine; ATTEND Family Medicine
DX: R07.89 Other chest pain (principal); R79.89 Other specified abnormal findings of blood chemistry; I25.119 Atherosclerotic heart disease of native coronary artery with unspecified angina pectoris; J96.91 Respiratory failure, unspecified with hypoxia; J44.89 Other specified chronic obstructive pulmonary disease; I11.0 Hypertensive heart disease with heart failure; I50.9 Heart failure, unspecified; E78.5 Hyperlipidemia, unspecified; I07.1 Rheumatic tricuspid insufficiency; I25.5 Ischemic cardiomyopathy; E11.40 Type 2 diabetes mellitus with diabetic neuropathy, unspecified; E11.51 Type 2 diabetes mellitus with diabetic peripheral angiopathy without gangrene; E66.9 Obesity, unspecified; Z68.37 Body mass index [BMI] 37.0-37.9, adult; I25.2 Old myocardial infarction; Z79.85 Long-term (current) use of injectable non-insulin antidiabetic drugs; Z79.4 Long term (current) use of insulin; Z79.891 Long term (current) use of opiate analgesic; Z79.02 Long term (current) use of antithrombotics/antiplatelets; Z79.82 Long term (current) use of aspirin; Z79.899 Other long term (current) drug therapy; Z88.0 Allergy status to penicillin; Z95.5 Presence of coronary angioplasty implant and graft; Z95.810 Presence of automatic (implantable) cardiac defibrillator; Z91.148 Patient's other noncompliance with medication regimen for other reason; Z89.511 Acquired absence of right leg below knee; Z87.891 Personal history of nicotine dependence
CPT/HCPCS: 96366 ×4; 96376 ×3; 96365; 96375; 99285; 36415; 94640 ×5; 80061; 80053; 83735; 84484 ×2; 85025; 85730; 83721; G0378 ×6; J2270 ×3; J1644 ×5

== ENCOUNTER 2024-11-01 14:50 | Observation (INO) | payer OTHER ==
[2024-11-01 15:02] LABS: Glucose,Whole Blood 352 mg/dL (70-110)
--- NOTE | 2024-11-01 15:02 | ED ---
General Adult HPI - General Chief complaint: Chest Pain Stated complaint: Unresponsive Time Seen by Provider: 11/01/24 14:57 Source: patient, EMS, RN notes reviewed Mode of arrival: EMS Limitations: no limitations - History of Present Illness Initial comments: Patient is a 44-year-old male present to the emergency department with concerns with chest discomfort. Onset of symptoms was just prior to arrival at his daughter's birthday. Patient states discomfort is somewhat severe still rated 9/10. Patient states discomfort feels like tightness. Patient reportedly was unresponsive, patient does not recall this. Patient has associated dyspnea. Patient does have history of similar symptoms around 1 year ago associated with a heart attack at that time. - Related Data Home Medications Medication Instructions Recorded Confirmed Lidocaine 4% Patch 1 patch TRANSDERM DAILY 05/08/24 10/07/24 HYDROcodone/APAP 10-325MG [[place] 1 tab PO TID 07/15/24 10/07/24 10-325] Omeprazole [PriLOSEC] 40 mg PO DAILY 07/15/24 10/07/24 Semaglutide [Ozempic] 2 mg SQ TH 07/15/24 10/07/24 Sacubitril/Valsartan [Entresto 24 1 tab PO BID 07/18/24 10/07/24 mg-26 mg Tablet] Insulin NPH Hum/Reg Insulin Hm 60 unit SQ BID 09/18/24 10/07/24 [humuLIN 70/30 Kwikpen] Metoprolol Succinate [Toprol XL] 200 mg PO DAILY 10/07/24 10/07/24 Previous Rx's Medication Instructions Recorded Aspirin 81 mg PO DAILY #30 07/15/21 Nitroglycerin Sl Tabs [Nitrostat] 0.4 mg SUBLINGUAL Q5M PRN #30 tab 07/15/21 Atorvastatin [Lipitor] 80 mg PO HS #30 tab 05/13/24 Ticagrelor [Brilinta] 90 mg PO BID #60 tab 05/13/24 Ipratropium-Albuterol Nebulize 3 ml INHALATION RT-TID 30 Days 06/24/24 [Duoneb 0.5 mg-3 mg/3 ml Soln] #120 each Isosorbide Mononitrate ER [Imdur] 120 mg PO DAILY 30 Days #30 tab 06/24/24 amLODIPine [Norvasc] 5 mg PO DAILY 30 Days #30 tab 06/24/24 Acetaminophen Tab [Tylenol] 650 mg PO Q6HR PRN tab 07/15/24 Colchicine [Colcrys] 0.6 mg PO DAILY 30 Days #30 each 07/15/24 Ezetimibe [Zetia] 10 mg PO DAILY 90 Days #90 tab 07/15/24 Ranolazine [Ranexa] 1,000 mg PO Q12HR 30 Days #60 tab 07/15/24 Spironolactone [Aldactone] 25 mg PO DAILY 90 Days #90 tab 07/15/24 Famotidine [Pepcid] 20 mg PO BID tab 07/19/24 Mag Hydrox/Al Hydrox/Simeth 15 ml PO Q6HR PRN ml 07/19/24 [Maalox] Allergies Allergy/AdvReac Type Severity Reaction Status Date / Time Penicillins Allergy Unknown Verified 11/01/24 14:57 Childhood Review of Systems ROS Statement: Those systems with pertinent positive or pertinent negative responses have been documented in the HPI. ROS Other: All systems not noted in ROS Statement are negative. Constitutional: Denies: fever Eyes: Denies: eye pain ENT: Denies: throat pain Respiratory: Reports: as per HPI, dyspnea Cardiovascular: Reports: as per HPI, chest pain Gastrointestinal: Denies: abdominal pain, vomiting Musculoskeletal: Denies: back pain Past Medical History Past Medical History: Coronary Artery Disease (CAD), Chest Pain / Angina, Heart Failure, CVA/TIA, Diabetes Mellitus, Hyperlipidemia, Hypertension, Myocardial Infarction (LA), Respiratory Disorder, Sleep Apnea/CPAP/BIPAP, Syncope Additional Past Medical History / Comment(s): AICD. IDDM type II. Neuropathy bilateral feet. 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 Migraines. Chronic back pain. R BKA (done 2023). Last Myocardial Infarction Date:: 2023 History of Any Multi-Drug Resistant Organisms: None Reported Past Surgical History: AICD, Heart Catheterization, Heart Catheterization With Stent, Orthopedic Surgery Additional Past Surgical History / Comment(s): 10/27/12 AICD, DFTs, PCI with 2 stents, R BKA. Stent placemnet in August 2024 at [facility] Past Anesthesia/Blood Transfusion Reactions: No Reported Reaction Date of Last Stent Placement:: 08/2024 Type of Cardiac Device: AICD Device Placement Date:: 2012 Past Psychological History: Anxiety, Depression Smoking Status: Former smoker Past Alcohol Use History: None Reported Past Drug Use History: None Reported - Past Family History Mother Family Medical History: No Reported History Brother(s) Family Medical History: Myocardial Infarction (LA) Father Family Medical History: Liver Disease Sister(s) Additional Family Medical History / Comment(s): Huntings disease General Exam Limitations: no limitations General appearance: alert, in no apparent distress Head exam: Present: normocephalic Eye exam: Present: normal appearance, PERRL, EOMI Neck exam: Present: normal inspection Respiratory exam: Present: normal lung sounds bilaterally Cardiovascular Exam: Present: regular rate, normal rhythm, normal heart sounds Expanded Peripheral pulses: 2+: Radial (R), Radial (L), Posterior Tibialis (L) GI/Abdominal exam: Present: soft. Absent: tenderness, guarding, pulsatile mass Extremities exam: Present: other (Right leg amputation) Neurological exam: Present: alert Psychiatric exam: Present: normal affect, normal mood Skin exam: Present: normal color Course Vital Signs 11/01/24 11/01/24 11/01/24 14:52 15:00 15:38 Temperature 99.3 F Pulse Rate 99 98 Respiratory 16 18 Rate Blood Pressure 164/104 121/104 141/94 O2 Sat by Pulse 99 98 Oximetry EKG Findings - EKG Results: EKG: interpreted by ERMD (Left bundle branch block. Q wave V1 V2. Inferior and lateral T wave inversion.), sinus rhythm, normal axis EKG shows: tachycardia Medical Decision Making - Medical Decision Making Was pt. sent in by a medical professional or institution (Dr. PA, MARKETING REPORTING ANALYST, urgent care, hospital, or [place] health care facility...) When possible be specific @ -No Did you speak to anyone other than the patient for history (EMS, parent, family, police, friend...)? What history was obtained from this source @ -EMS provides history of transportation and patient improvement since arrival Did you review nursing and triage notes (agree or disagree)? Why? @ -I reviewed and agree with nursing and triage notes Were old charts reviewed (outside hosp., previous admission, EMS record, old EKG, old radiological studies, urgent care reports/EKG's, [place] health care facility records)? Report findings @ -No old charts were reviewed Differential Diagnosis (chest pain, altered mental status, abdominal pain women, abdominal pain men, vaginal bleeding, weakness, fever, dyspnea, syncope, headache, dizziness, GI bleed, back pain, seizure, CVA, palpatations, mental health, musculoskeletal)? @ -Differential Chest Pain: Stable Angina, Unstable Angina, STEMI, NSTEMI Aortic Dissection, Pneumothorax, Musculoskeletal, Esophageal Spasm GERD, Cholecystitis, Pancreatitis, Zoster, this is not meant to be an all-inclusive list. EKG interpreted by me (3pts min.). @ -As above X-rays interpreted by me (1pt min.). @ -Chest x-ray without acute abnormality. Cardiac device present CT interpreted by me (1pt min.). @ -None done U/S interpreted by me (1pt. min.). @ -None done What testing was considered but not performed or refused? (CT, X-rays, U/S, labs)? Why? @ -None What meds were considered but not given or refused? Why? @ -None Did you discuss the management of the patient with other professionals (professionals i.e. , PA, MARKETING REPORTING ANALYST, lab, RT, psych nurse, director of social media marketing, resource analyst, teacher, chief merchandising officer, caseworker intake)? Give summary @ -Case was discussed with Dr. Espinal who will admit his patient Was smoking cessation discussed for >3mins.? @ -No Was critical care preformed (if so, how long)? @ -No Were there social determinants of health that impacted care today? How? (Homelessness, low income, unemployed, alcoholism, drug addiction, transportation, low edu. Level, literacy, decrease access to med. care, custodial, rehab)? @ -No Was there de-escalation of care discussed even if they declined (Discuss DNR or withdrawal of care, Hospice)? DNR status @ -No What co-morbidities impacted this encounter? (DM, HTN, Smoking, COPD, CAD, Cancer, CVA, ARF, Chemo, Hep., AIDS, mental health diagnosis, sleep apnea, mo rbid obesity)? @ -Coronary artery disease Was patient admitted / discharged? Hospital course, mention meds given and route, prescriptions, significant lab abnormalities, going to OR and other pertinent info. @ -Patient presents with chest pain and syncope. Patient reevaluated and resting comfortably in bed. Patient states not much improvement with nitroglycerin. Patient will be provided morphine. Patient and family are updated on results and plan. Patient will be admitted with cardiac consult. Admission orders written. Undiagnosed new problem with uncertain prognosis? @ -No Drug Therapy requiring intensive monitoring for toxicity (Heparin, Nitro, Insulin, Cardizem)? @ -No Were any procedures done? @ -No Diagnosis/symptom? @ -Chest pain Acute, or Chronic, or Acute on Chronic? @ -Acute Uncomplicated (without systemic symptoms) or Complicated (systemic symptoms)? @ -Default Side effects of treatment? @ -No Exacerbation, Progression, or Severe Exacerbation? @ -No Poses a threat to life or bodily function? How? (Chest pain, [place], [place], pneumonia, PE, COPD, DKA, ARF, appy, cholecystitis, CVA, Diverticulitis, Homicidal, Suicidal, threat to staff... and all critical care pts) @ -Threat to cardiac function - Lab Data Result diagrams: 11/01/24 15:01 11/01/24 15:01 Lab Results 11/01/24 11/01/24 11/01/24 Range/Units 15:00 15:01 15:01 WBC 8.12 (4.50-10.00) 10*3/uL RBC 5.86 H (4.40-5.60) 10*6/uL Hgb 13.9 (13.0-17.0) g/dL Hct 42.0 (39.6-50.0) % MCV 71.7 L (80.0-97.0) fL MCH 23.7 L (27.0-32.0) pg MCHC 33.1 (32.0-37.0) g/dL Plt Count 235 (140-440) 10*3/uL MPV 9.8 (9.5-12.2) fL Immature Gran % (Auto) 1.1 % Neutrophils % 61.7 % Lymphocytes % 24.4 % Monocytes % 8.4 % Eosinophils % 3.0 % Basophils % 1.4 % Immature Gran # 0.09 H (0.00-0.04) 10*3/uL Neutrophils # 5.02 (1.80-7.70) 10*3/uL Lymphocytes # 1.98 (0.90-5.00) 10*3/uL Monocytes # 0.68 (0.20-1.00) 10*3/uL Eosinophils # 0.24 (0.04-0.35) 10*3/uL Basophils # 0.11 H (0.00-0.10) 10*3/uL PT 10.5 (10.0-12.5) sec INR 0.9 (<1.2) APTT 22.0 (22.0-30.0) sec D-Dimer 0.54 (<0.60) mg/L FEU Sodium (137-145) mmol/L Potassium (3.5-5.1) mmol/L Chloride (98-107) mmol/L Carbon Dioxide (22-30) mmol/L Anion Gap mmol/L BUN (9-20) mg/dL Creatinine (0.66-1.25) mg/dL Est GFR (CKD-EPI)AfAm (>60 ml/min/1.73 sqM) Est GFR (CKD-EPI)NonAf (>60 ml/min/1.73 sqM) Glucose (74-99) mg/dL POC Glucose (mg/dL) 352 H (70-110) mg/dL POC Glu Space Scheduler ID [place] June Calcium (8.4-10.2) mg/dL Magnesium (1.6-2.3) mg/dL Total Bilirubin (0.2-1.3) mg/dL AST (17-59) U/L ALT (4-49) U/L Alkaline Phosphatase (38-126) U/L Troponin I (0.000-0.034) ng/mL Total Protein (6.3-8.2) g/dL Albumin (3.5-5.0) g/dL Amylase (30-110) U/L Lipase (23-300) U/L 11/01/24 11/01/24 Range/Units 15:01 15:01 WBC (4.50-10.00) 10*3/uL RBC (4.40-5.60) 10*6/uL Hgb (13.0-17.0) g/dL Hct (39.6-50.0) % MCV (80.0-97.0) fL MCH (27.0-32.0) pg MCHC (32.0-37.0) g/dL Plt Count (140-440) 10*3/uL MPV (9.5-12.2) fL Immature Gran % (Auto) % Neutrophils % % Lymphocytes % % Monocytes % % Eosinophils % % Basophils % % Immature Gran # (0.00-0.04) 10*3/uL Neutrophils # (1.80-7.70) 10*3/uL Lymphocytes # (0.90-5.00) 10*3/uL Monocytes # (0.20-1.00) 10*3/uL Eosinophils # (0.04-0.35) 10*3/uL Basophils # (0.00-0.10) 10*3/uL PT (10.0-12.5) sec INR (<1.2) APTT (22.0-30.0) sec D-Dimer (<0.60) mg/L FEU Sodium 133 L (137-145) mmol/L Potassium 4.4 (3.5-5.1) mmol/L Chloride 102 (98-107) mmol/L Carbon Dioxide 21 L (22-30) mmol/L Anion Gap 10 mmol/L BUN 15 (9-20) mg/dL Creatinine 0.92 (0.66-1.25) mg/dL Est GFR (CKD-EPI)AfAm >90 (>60 ml/min/1.73 sqM) Est GFR (CKD-EPI)NonAf >90 (>60 ml/min/1.73 sqM) Glucose 348 H (74-99) mg/dL POC Glucose (mg/dL) (70-110) mg/dL POC Glu Space Scheduler ID Calcium 8.7 (8.4-10.2) mg/dL Magnesium 1.7 (1.6-2.3) mg/dL Total Bilirubin 1.0 (0.2-1.3) mg/dL AST 27 (17-59) U/L ALT 16 (4-49) U/L Alkaline Phosphatase 88 (38-126) U/L Troponin I 0.026 (0.000-0.034) ng/mL Total Protein 6.6 (6.3-8.2) g/dL Albumin 3.5 (3.5-5.0) g/dL Amylase 33 (30-110) U/L Lipase 68 (23-300) U/L Disposition Clinical Impression: Chest pain Disposition: ADMITTED IP TO THIS [facility] Is patient prescribed a controlled substance at d/c from ED?: No Referrals: Carlo Espinal MD [Primary Care Provider] - 1-2 days Time of Disposition: 16:02
[2024-11-01 15:07] LABS: Basophils # (A) 0.11 10*3/uL (0.00-0.10); Basophils % (A) 1.4 %; Eosinophils # (A) 0.24 10*3/uL (0.04-0.35); Eosinophils % (A) 3.0 %; HCT 42.0 % (39.6-50.0); HGB 13.9 g/dL (13.0-17.0); Lymphocytes # (A) 1.98 10*3/uL (0.90-5.00); Lymphocytes % (A) 24.4 %; MCH 23.7 pg (27.0-32.0); MCHC 33.1 g/dL (32.0-37.0); MCV 71.7 fL (80.0-97.0); Monocytes # (A) 0.68 10*3/uL (0.20-1.00); Monocytes % (A) 8.4 %; Neutrophils # (A) 5.02 10*3/uL (1.80-7.70); Neutrophils % (A) 61.7 %; Platelet Count 235 10*3/uL (140-440); RBC 5.86 10*6/uL (4.40-5.60); RDW 17.2 % (11.5-14.5); WBC 8.12 10*3/uL (4.50-10.00)
[2024-11-01] MEDS: ASPIRIN 81 MG PO STA (15:07)
[2024-11-01] MEDS: NITROGLYCERIN SL TABS 0.4 MG TAB SUBLINGUAL STA ×3 (15:08→15:53)
[2024-11-01 15:32] LABS: ALT 16 U/L (4-49); African American GFR (CKD) >90 (>60 ml/min/1.73 sqM); Albumin 3.5 g/dL (3.5-5.0); Amylase 33 U/L (30-110); Anion Gap 10 mmol/L; Blood Urea Nitrogen 15 mg/dL (9-20); Calcium 8.7 mg/dL (8.4-10.2); Carbon Dioxide 21 mmol/L (22-30); Chloride 102 mmol/L (98-107); Glucose 348 mg/dL (74-99); Lipase 68 U/L (23-300); Non-African American GFR(CKD) >90 (>60 ml/min/1.73 sqM); Sodium 133 mmol/L (137-145); Total Protein 6.6 g/dL (6.3-8.2)
--- NOTE | 2024-11-01 15:33 | XR ---
EXAMINATION TYPE: XR chest 2V DATE OF EXAM: 11/01/2024 3:22 PM COMPARISON: Chest radiographs from 09/18/2024. CLINICAL INDICATION: Male, 44 years old with history of Chest Pain; [facility] TECHNIQUE: XR chest 2V Frontal and lateral views of the chest. FINDINGS: Lungs/Pleura: There is no evidence of pleural effusion, focal consolidation, or pneumothorax. Pulmonary vascularity: Unremarkable. Heart/mediastinum: Cardiomediastinal silhouette is enlarged. Single-lead cardiac conduction device ov erlying the left hemithorax with lead projecting over the right ventricle. Musculoskeletal: No acute osseous pathology. IMPRESSION: No acute cardiopulmonary disease/process. [facility], , 11/01/2024 3:31 PM
[2024-11-01 15:34] LABS: AST 27 U/L (17-59); Alkaline Phosphatase 88 U/L (38-126); Magnesium 1.7 mg/dL (1.6-2.3); Potassium 4.4 mmol/L (3.5-5.1)
[2024-11-01 15:41] LABS: INR 0.9 (<1.2); Partial Thromboplastin Time 22.0 sec (22.0-30.0); Prothrombin Time 10.5 sec (10.0-12.5)
[2024-11-01] MEDS ORDERED: NITROGLYCERIN SL TABS 0.4 MG TAB SUBLINGUAL PRN (16:03)
[2024-11-01] MEDS: MORPHINE SULFATE 4 MG/ML SYRINGE IVP STA (16:47)
[2024-11-01] MEDS ORDERED: MAG HYDROX/AL HYDROX/SIMETH 30 ML CUP PO PRN (18:09)
[2024-11-01] MEDS ORDERED: ACETAMINOPHEN TAB 325 MG TAB PO PRN (18:09)
[2024-11-01 18:22] LABS: Glucose,Whole Blood 332 mg/dL (70-110)
[2024-11-01] MEDS: INSULIN LISPRO (HumaLOG) 100 UNIT/ML 10 mL VL SQ SCH (18:41)
[2024-11-01 20:12] LABS: Glucose,Whole Blood 390 mg/dL (70-110)
[2024-11-01] MEDS: TICAGRELOR 90 MG TAB PO SCH (20:47)
[2024-11-01] MEDS: INSULIN NPL/INSULIN LISPRO 100 UNIT/ML 10 ML VL (Humalog 75/25) SQ SCH (20:47)
[2024-11-01] MEDS: FAMOTIDINE 20 MG TAB PO SCH (20:51)
[2024-11-01] MEDS: ATORVASTATIN 80 MG TAB PO SCH (20:51)
[2024-11-01] MEDS: RANOLAZINE 500 MG TAB.ER.12H PO SCH (20:51)
[2024-11-01] MEDS: SACUBITRIL/VALSARTAN 24 MG-26 MG TABLET PO SCH (20:51)
[2024-11-01] MEDS: HYDROcodone/APAP 10-325MG 1 EACH TAB PO SCH (20:55)
[2024-11-01] MEDS ORDERED: INSULIN LISPRO (HumaLOG) 100 UNIT/ML 10 mL VL SQ SCH (21:00)
[2024-11-01] MEDS: IPRATROPIUM-ALBUTEROL 3 ML NEB INHALATION SCH (21:18)
--- NOTE | 2024-11-01 23:23 | CT ---
EXAM: CT Chest Without Intravenous Contrast CLINICAL HISTORY: ITS.REASON CT Reason: hypoxia TECHNIQUE: Axial computed tomography images of the chest without intravenous contrast. CTDI is 24.3 mGy and DLP is 1047.6 mGy-cm. This CT exam was performed using one or more of the following dose reduction techniques: automated exposure control, adjustment of the mA and/or kV according to patient size, and/or use of iterative reconstruction technique. COMPARISON: Chest x-ray of 11/01/2024. FINDINGS: Lungs: Airway is normal. Minimal scarring and subsegmental atelectasis noted at the lung bases. No mass. Pleural space: Unremarkable. No pneumothorax. No pleural effusions. Heart: Unremarkable. No cardiomegaly. No significant pericardial effusion. No significant coronary artery calcifications. Mediastinum: Unremarkable. No pathologic hilar, mediastinal, or axillary lymphadenopathy. Thyroid: The visualized thyroid gland is unremarkable. Bones/joints: The visualized clavicles are unremarkable. Visualized left ribs are unremarkable. Moderate degenerative disc disease of the thoracic spine and kyphosis. Sternum is unremarkable. No acute right rib fracture. Soft tissues: Unremarkable. Vasculature: Atherosclerotic disease of the thoracic aorta. No thoracic aortic aneurysm. Lymph nodes: See above. Liver: Fatty liver. Kidneys and ureters: Nonspecific stranding about the perinephric spaces. Tubes, lines and devices: Pacemaker overlies the left upper chest. Other findings: There is hypoaeration. ASCVD. IMPRESSION: 1. Hypoaeration. 2. No consolidative changes or pleural effusions. 3. Atherosclerotic disease and ASCVD.
[2024-11-01] MEDS: HYDROmorphone 0.5 MG/0.5 ML SYRINGE IVP PRN (23:48)
--- NOTE | 2024-11-02 01:33 | HP ---
HISTORY AND PHYSICAL HISTORY OF PRESENT ILLNESS: A 44-year-old myocardial infarction, fatty liver disease. Blood pressure was 140s to 160s over 94 to 104. EKG, left bundle-branch block. Right BKA. PHYSICAL EXAMINATION: CARDIOVASCULAR: S1, S2. LUNGS: Scattered wheeze and rhonchi. HEMATOLOGY: Negative Homans. PSYCH: Fair mood and affect. Wait for Cardiology to evaluate for chest pain, rule out myocardial infarction. Prognosis guarded. MMODL / IJN: [id number] /
[2024-11-02 05:52] LABS: Glucose,Whole Blood 202 mg/dL (70-110)
--- NOTE | 2024-11-02 06:24 | HP ---
HISTORY AND PHYSICAL HISTORY OF PRESENT ILLNESS: A 44-year-old white male with chest pain, recurrent admissions for chest pain. He has 1 elevated troponin out of 3 and multiple admissions for chest pain, usually being noncompliance with medications. He has a pacemaker and he has had heart disease, multiple stents. He came just on his daughter's birthday, discovered 9/10 tightness in chest. He was unresponsive. Does not recall, this being associated with shortness of breath. Similar symptoms 1 year ago with a heart attack at that time. MEDICINES: 1. [place] 10s t.i.d. 2. Prevacid 40 daily. 3. Ozempic 2 mg on . 4. Entresto 24/ b.i.d. 5. 70/30 insulin, 60 units b.i.d. 6. Toprol-XL 200 mg daily. 7. Norvasc 5 mg daily. 8. Imdur 120 daily. 9. Colcrys 0.6 mg daily. 10.Zetia 10 mg daily. 11.Renvela 1000 q.12. 12. daily. 13.Pepcid 20 b.i.d. ALLERGIES: Penicillin. PAST MEDICAL HISTORY: Sleep apnea, diabetes mellitus, hypertension, dyslipidemia, myocardial infarction, respiratory disorder, AICD, heart catheterization with stents. Orthopedic surgeries. FAMILY HISTORY: Brother with myocardial infarction. with liver disease. PHYSICAL EXAMINATION: VITAL SIGNS: Temperature 99.3, pulse 98, respiratory rate 16-18, blood pressure 140s to 160s/90s to 100s, O2 is 98%-99%. EKG, left bundle-branch block. GENERAL: Obese white male. Right BKA. CARDIOVASCULAR: S1, S2. LUNGS: Scattered wheeze. Decreased breath sounds x4. PSYCH: Fair mood and affect. NEUROLOGIC: Cranial nerves intact. LABORATORY DATA: Labs are reviewed. IMPRESSION AND PLAN: His chest pain is atypical. Elevated troponin. Cardiology consult. Continue home medications. Prognosis is guarded. MMODL / IJN: [id number] /
[2024-11-02 08:13] LABS: Cholesterol 213.0 mg/dL (0.00-200.00); HDL Cholesterol 30.1 mg/dL (40.00-60.00); Triglycerides 533.0 mg/dL (0.00-149.00); VLDL Calculation 106.6 mg/dL (5.00-40.00)
[2024-11-02 08:28] LABS: LDL Cholesterol,Direct Reflex 114.0 mg/dL (0.00-129.00)
[2024-11-02] MEDS ORDERED: ASPIRIN 325 MG TAB PO SCH (09:00)
[2024-11-02] MEDS: FUROSEMIDE 10 MG/ML 2 ML VIAL IV STA (09:19)
[2024-11-02] MEDS: EZETIMIBE 10 MG TAB PO SCH (09:20)
[2024-11-02] MEDS: amLODIPine 5 MG TAB PO SCH (09:20)
[2024-11-02] MEDS: ASPIRIN 81 MG PO SCH (09:20)
[2024-11-02] MEDS: SPIRONOLACTONE 25 MG TAB PO SCH (09:20)
[2024-11-02] MEDS: ISOSORBIDE MONONITRATE ER 60 MG TAB.ER.24H PO SCH (09:21)
[2024-11-02] MEDS: METOPROLOL SUCCINATE (ER) 100 MG TAB.ER.24H PO SCH (09:21)
[2024-11-02] MEDS: FENOFIBRATE 160 MG TAB PO SCH (09:21)
[2024-11-02] MEDS: COLCHICINE 0.6 MG EACH PO SCH (09:21)
[2024-11-02] MEDS: PANTOPRAZOLE 40 MG TABLET PO SCH (09:28)
--- NOTE | 2024-11-02 11:45 | P.CRDCN ---
History of Present Illness History of present illness: HISTORY OF PRESENT ILLNESS: Bird is a 44-year-old male with a past medical history significant for coronary artery disease, hypertension, hyperlipidemia, diabetes, peripheral arterial di sease, and obesity. Patient follows in the office with Dr. Hernandez. We have been asked to see the patient in consultation for chest pain and syncope. Patient examined at the bedside. Patient states yesterday he was at the park celebrating his daughter's birthday when he suddenly began to have chest di scomfort. He states it felt like somebody was punching him in the chest. He states that he began to feel short of breath. He states that he laid down on a bench and the next thing he remembers he was in the hospital. The patient denies any chest pain this morning. He does report mild shortness of breath. DIAGNOSTICS: - EKG reveals sinus mechanism with IVCD. - Chest xray negative for acute process. - Current home cardiac medications include amlodipine 5 mg daily, Brilinta 90 mg twice a day, Aldactone 25 mg daily, Entresto 24-26 mg twice a day, Ranexa 1000 mg twice a day, metoprolol succinate 200 mg daily, Imdur 120 mg daily, Zetia 10 mg daily, aspirin 81 mg daily, Lipitor 80 mg at night. - Most recent echocardiogram obtained in August 2024 revealing ejection fraction 40 to 45% with mild TR - Cardiac catheterization history: 08/2024 revealing patent stent in the LAD/diagonal bifurcation with no evidence of high-grade stenosis with KUMAR-3 flow, MITER SAWYER of the circumflex which is a known finding from before, distal occluded RCA which is a new finding from before with multiple layers of stents and known nonviable inferior myocardium REVIEW OF SYSTEMS: At the time of my exam: CONSTITUTIONAL: Denies fever or chills. HEENT: Denies blurred vision, vision changes, or eye pain. Denies hemoptysis CARDIOVASCULAR: Denies chest pain. Denies orthopnea. Denies PND. Denies palpitations RESPIRATORY: Denies shortness of breath. GASTROINTESTINAL: Denies abdominal pain. Denies nausea or vomiting. HEMATOLOGIC: Denies bleeding disorders. GENITOURINARY: Denies any blood in urine. SKIN: Denies pruitis. Denies rash. PHYSICAL EXAM: VITAL SIGNS: Reviewed. GENERAL: Well-developed in no acute distress. HEENT: Head is normocephalic. Pupils are equal, round. Sclerae anicteric. Mucous membranes of the mouth are moist. Neck supple. No JVD or thyromegaly LUNGS: Respirations even and unlabored. Lungs essentially clear to auscultation bilaterally. HEART: Regular rate and rhythm. S1 and S2 heard. ABDOMEN: Soft. Nondistended. Nontender. EXTREMITIES: Normal range of motion. No clubbing or cyanosis. Peripheral pulses intact. Right BKA NEUROLOGIC: Awake and alert. Oriented x 3. ASSESSMENT: Chest pain Syncope Acute on chronic heart failure with reduced EF 40 to 45% Hyperglycemia, blood sugars in the 300s upon admission Chronically elevated troponins Several hospitalizations for NSTEMI Severe CAD status post multiple PCI, awaiting evaluation at [facility] Dyslipidemia Diabetes mellitus type 2 Right BKA Ischemic cardiomyopathy with with most recent EF of 40 to 45% Status post AICD Hypertension PAD History of medication noncompliance Obesity: BMI 37.7 PLAN: Interrogate AICD Give 1 dose of IV Lasix 20 mg and then begin oral Lasix 20 mg twice a day Check BNP Increase amlodipine to 10 mg daily for optimal blood pressure control Continue telemetry monitoring Further recommendations pending patient course Nurse practitioner note has been reviewed by physician. Signing provider agrees with the documented findings, assessment, and plan of care documented by REMOTE INPATIENT CODER as a scribe. Past Medical History Past Medical History: Coronary Artery Disease (CAD), Chest Pain / Angina, Heart Failure, CVA/TIA, Diabetes Mellitus, Hyperlipidemia, Hypertension, Myocardial Infarction ([place]), Respiratory Disorder, Sleep Apnea/CPAP/BIPAP, Syncope Additional Past Medical History / Comment(s): AICD. IDDM type II. Neuropathy bilateral feet. 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 Migraines. Chronic back pain. R BKA (done 2023). Last Myocardial Infarction Date:: 2023 History of Any Multi-Drug Resistant Organisms: None Reported Past Surgical History: AICD, Heart Catheterization, Heart Catheterization With Stent, Orthopedic Surgery Additional Past Surgical History / Comment(s): 10/27/12 AICD, DFTs, PCI with 2 stents, R BKA. Stent placemnet in August 2024 at [facility] Past Anesthesia/Blood Transfusion Reactions: No Reported Reaction Date of Last Stent Placement:: 08/2024 Type of Cardiac Device: AICD Device Placement Date:: 2012 Past Psychological History: Anxiety, Depression Additional Psychological History / Comment(s): rajesh . Smoking Status: Never smoker Past Alcohol Use History: None Reported Additional Past Alcohol Use History / Comment(s): quit in 2019 about 1/2 ppd Past Drug Use History: None Reported - Past Family History Mother Family Medical History: No Reported History Brother(s) Family Medical History: Myocardial Infarction ([place]) Father Family Medical History: Liver Disease Sister(s) Additional Family Medical History / Comment(s): Huntings disease Medications and Allergies Home Medications Medication Instructions Recorded Confirmed Type Aspirin 81 mg PO DAILY #30 07/15/21 11/01/24 Rx Nitroglycerin Sl Tabs [Nitrostat] 0.4 mg SUBLINGUAL Q5M PRN #30 tab 07/15/21 Rx Lidocaine 4% Patch 1 patch TRANSDERM DAILY 05/08/24 11/01/24 History Atorvastatin [Lipitor] 80 mg PO HS #30 tab 05/13/24 11/01/24 Rx Ticagrelor [Brilinta] 90 mg PO BID #60 tab 05/13/24 11/01/24 Rx Ipratropium-Albuterol Nebulize 3 ml INHALATION RT-TID 30 Days 06/24/24 11/01/24 Rx [Duoneb 0.5 mg-3 mg/3 ml Soln] #120 each Isosorbide Mononitrate ER [Imdur] 120 mg PO DAILY 30 Days #30 tab 06/24/24 11/01/24 Rx amLODIPine [Norvasc] 5 mg PO DAILY 30 Days #30 tab 06/24/24 11/01/24 Rx Acetaminophen Tab [Tylenol] 650 mg PO Q6HR PRN tab 07/15/24 11/01/24 Rx Colchicine [Colcrys] 0.6 mg PO DAILY 30 Days #30 each 07/15/24 11/01/24 Rx Ezetimibe [Zetia] 10 mg PO DAILY 90 Days #90 tab 07/15/24 11/01/24 Rx HYDROcodone/APAP 10-325MG [[place] 1 tab PO TID 07/15/24 11/01/24 History 10-325] Omeprazole [PriLOSEC] 40 mg PO DAILY 07/15/24 11/01/24 History Ranolazine [Ranexa] 1,000 mg PO Q12HR 30 Days #60 tab 07/15/24 11/01/24 Rx Semaglutide [Ozempic] 2 mg SQ TH 07/15/24 11/01/24 History Spironolactone [Aldactone] 25 mg PO DAILY 90 Days #90 tab 07/15/24 11/01/24 Rx Sacubitril/Valsartan [Entresto 24 1 tab PO BID 07/18/24 11/01/24 History mg-26 mg Tablet] Famotidine [Pepcid] 20 mg PO BID tab 07/19/24 11/01/24 Rx Mag Hydrox/Al Hydrox/Simeth 15 ml PO Q6HR PRN ml 07/19/24 11/01/24 Rx [Maalox] Insulin NPH Hum/Reg Insulin Hm 60 unit SQ BID 09/18/24 11/01/24 History [humuLIN 70/30 Kwikpen] Metoprolol Succinate [Toprol XL] 200 mg PO DAILY 10/07/24 11/01/24 History Fenofibrate [Lofibra] 160 mg PO DAILY 11/01/24 11/01/24 History Allergies Allergy/AdvReac Type Severity Reaction Status Date / Time Penicillins Allergy Unknown Verified 11/01/24 16:18 Childhood Physical Exam Vitals: Vital Signs Temp Pulse Pulse Resp BP BP Pulse Ox 11/02/24 08:36 81 99 11/02/24 07:00 97.8 F 81 20 159/104 100 11/02/24 02:00 97.9 F 90 16 146/96 99 11/01/24 19:58 97.7 F 96 18 161/70 96 11/01/24 17:55 16 99 11/01/24 17:53 98.0 F 85 16 158/98 100 11/01/24 16:46 98.5 F 94 16 135/76 97 11/01/24 15:38 141/94 11/01/24 15:00 98 18 121/104 98 11/01/24 14:52 99.3 F 99 16 164/104 99 Intake and Output 11/01/24 11/02/24 11/02/24 22:59 06:59 14:59 Other: # Voids 2 2 Weight 126.099 kg Results 11/01/24 15:01 11/01/24 15:01 Cardiac Enzymes 11/01/24 11/01/24 11/01/24 Range/Units 15:01 15:01 16:26 AST 27 (17-59) U/L Troponin I 0.026 0.038 H* (0.000-0.034) ng/mL 11/01/24 Range/Units 18:54 AST (17-59) U/L Troponin I 0.033 (0.000-0.034) ng/mL Coagulation 11/01/24 Range/Units 15:01 PT 10.5 (10.0-12.5) sec APTT 22.0 (22.0-30.0) sec Lipids 11/01/24 Range/Units 15:01 Triglycerides 533.00 H (0.00-149.00) mg/dL Cholesterol 213.00 H (0.00-200.00) mg/dL HDL Cholesterol 30.10 L (40.00-60.00) mg/dL Cholesterol/HDL Ratio 7.08 Ratio CBC 11/01/24 Range/Units 15:01 WBC 8.12 (4.50-10.00) 10*3/uL RBC 5.86 H (4.40-5.60) 10*6/uL Hgb 13.9 (13.0-17.0) g/dL Hct 42.0 (39.6-50.0) % Plt Count 235 (140-440) 10*3/uL Comprehensive Metabolic Panel 11/01/24 Range/Units 15:01 Sodium 133 L (137-145) mmol/L Potassium 4.4 (3.5-5.1) mmol/L Chloride 102 (98-107) mmol/L Carbon Dioxide 21 L (22-30) mmol/L BUN 15 (9-20) mg/dL Creatinine 0.92 (0.66-1.25) mg/dL Glucose 348 H (74-99) mg/dL Calcium 8.7 (8.4-10.2) mg/dL AST 27 (17-59) U/L ALT 16 (4-49) U/L Alkaline Phosphatase 88 (38-126) U/L Total Protein 6.6 (6.3-8.2) g/dL Albumin 3.5 (3.5-5.0) g/dL Current Medications Generic Name Dose Route Start Last Admin Trade Name Freq PRN Reason Stop Dose Admin Acetaminophen 650 mg 11/01/24 18:09 Acetaminophen Tab 325 Mg Tab PO Q6HR PRN Mild Pain or Fever > 100.5 Hydrocodone Bitart/Acetaminophen 1 each 11/01/24 22:00 11/01/24 20:55 Hydrocodone/Apap 10-325mg 1 Each Tab PO 1 each TID KSENIA Administration Al Hydroxide/Mg Hydroxide 15 ml 11/01/24 18:09 Mag Hydrox/Al Hydrox/Simeth 30 Ml Cup PO Q6HR PRN Indigestion Albuterol/Ipratropium 3 ml 11/01/24 20:00 11/02/24 08:36 Ipratropium-Albuterol 3 Ml Neb INHALATION 3 ml RT-TID KSENIA Administration Amlodipine Besylate 5 mg 11/02/24 09:00 Amlodipine 5 Mg Tab PO DAILY KSENIA Aspirin 81 mg 11/02/24 09:00 Aspirin 81 Mg PO DAILY KSENIA Atorvastatin Calcium 80 mg 11/01/24 21:00 11/01/24 20:51 Atorvastatin 80 Mg Tab PO 80 mg HS KSENIA Administration Colchicine 0.6 mg 11/02/24 09:00 Colchicine 0.6 Mg Each PO DAILY KSENIA Ezetimibe 10 mg 11/02/24 09:00 Ezetimibe 10 Mg Tab PO DAILY KSENIA Famotidine 20 mg 11/01/24 21:00 11/01/24 20:51 Famotidine 20 Mg Tab PO 20 mg BID KSENIA Administration Fenofibrate 160 mg 11/02/24 09:00 Fenofibrate 160 Mg Tab PO DAILY [facility] Hydromorphone HCl 0.5 mg 11/01/24 18:14 11/02/24 05:24 Hydromorphone 0.5 Mg/0.5 Ml Syringe IVP 0.5 mg Q4HR PRN Administration Pain 4-10 Insulin Human Lispro 0 unit 11/01/24 18:29 11/01/24 20:50 Insulin Lispro (Humalog) 100 Unit/Ml 10 Ml Vl SQ 10 unit ACHS KSENIA Administration Protocol Insulin Lispro Protam/Lispro Human 60 unit 11/01/24 21:00 11/01/24 20:47 Insulin Npl/Insulin Lispro 100 Unit/Ml 10 Ml Vl (Humalog 75/25) SQ 60 unit BID KSENIA Administration Isosorbide Mononitrate 120 mg 11/02/24 09:00 Isosorbide Mononitrate Er 60 Mg Tab.Er.24h PO DAILY [facility] Metoprolol Succinate 200 mg 11/02/24 09:00 Metoprolol Succinate (Er) 100 Mg Tab.Er.24h PO DAILY [facility] Nitroglycerin 0.4 mg 11/01/24 16:03 Nitroglycerin Sl Tabs 0.4 Mg Tab SUBLINGUAL Q5M PRN Chest Pain Pantoprazole Sodium 40 mg 11/02/24 09:00 Pantoprazole 40 Mg Tablet PO DAILY [facility] Ranolazine 1,000 mg 11/01/24 21:00 11/01/24 20:51 Ranolazine 500 Mg Tab.Er.12h PO 1,000 mg Q12HR KSENIA Administration Sacubitril/Valsartan 1 each 11/01/24 21:00 11/01/24 20:51 Sacubitril/Valsartan 24 Mg-26 Mg Tablet PO 1 each BID KSENIA Administration Spironolactone 25 mg 11/02/24 09:00 Spironolactone 25 Mg Tab PO DAILY KSENIA Ticagrelor 90 mg 11/01/24 21:00 11/01/24 20:47 Ticagrelor 90 Mg Tab PO 90 mg BID KSENIA Administration Intake and Output 11/01/24 11/02/24 11/02/24 22:59 06:59 14:59 Other: # Voids 2 2 Weight 126.099 kg 11/01/24 15:01 11/01/24 15:01
[2024-11-02 12:24] LABS: Glucose,Whole Blood 304 mg/dL (70-110)
[2024-11-02] MEDS: FUROSEMIDE 20 MG TAB PO SCH (15:37)
[2024-11-02 17:20] LABS: Glucose,Whole Blood 215 mg/dL (70-110)
[2024-11-02 20:04] LABS: Glucose,Whole Blood 199 mg/dL (70-110)
[2024-11-03 05:59] LABS: Glucose,Whole Blood 158 mg/dL (70-110)
[2024-11-03 09:17] LABS: African American GFR (CKD) >90 (>60 ml/min/1.73 sqM); Anion Gap 6 mmol/L; Blood Urea Nitrogen 21 mg/dL (9-20); Calcium 8.6 mg/dL (8.4-10.2); Carbon Dioxide 31 mmol/L (22-30); Chloride 101 mmol/L (98-107); Glucose 169 mg/dL (74-99); Non-African American GFR(CKD) 82 (>60 ml/min/1.73 sqM); Potassium 4.2 mmol/L (3.5-5.1); Sodium 138 mmol/L (137-145)
[2024-11-03] MEDS: amLODIPine 10 MG TAB PO SCH (09:29)
--- NOTE | 2024-11-03 12:02 | P.PN ---
Subjective HISTORY OF PRESENT ILLNESS: Bird is a 44-year-old male with a past medical history significant for coronary artery disease, hypertension, hyperlipidemia, diabetes, peripheral arterial disease, and obesity. Patient follows in the office with Dr. Hernandez. We have been asked to see the patient in consultation for chest pain and syncope. Patient exlilian mined at the bedside. Patient states yesterday he was at the park celebrating his daughter's birthday when he suddenly began to have chest discomfort. He states it felt like somebody was punching him in the chest. He states that he began to feel short of breath. He states that he laid down on a bench and the next thing he remembers he was in the hospital. The patient denies any chest pain this morning. He does report mild shortness of breath. DIAGNOSTICS: - EKG reveals sinus mechanism with IVCD. - Chest xray negative for acute process. - Current home cardiac medications include amlodipine 5 mg daily, Brilinta 90 mg twice a day, Aldactone 25 mg daily, Entresto 24-26 mg twice a day, Ranexa 1000 mg twice a day, metoprolol succinate 200 mg daily, Imdur 120 mg daily, Zetia 10 mg daily, aspirin 81 mg daily, Lipitor 80 mg at night. - Most recent echocardiogram obtained in August 2024 revealing ejection fraction 40 to 45% with mild TR - Cardiac catheterization history: 08/2024 revealing patent stent in the LAD/diagonal bifurcation with no evidence of high-grade stenosis with KUMAR-3 flow, BLADE ALIGNER of the circumflex which is a known finding from before, distal occluded RCA which is a new finding from before with multiple layers of stents and known nonviable inferior myocardium 11/03/2024 Patient examined this morning at the bedside. AICD was interrogated yesterday with no acute events noted. Patient denies any chest pain or shortness of breath. He denies dizziness or lightheadedness. No further episodes of syncope. Vital signs are stable. PHYSICAL EXAM: VITAL SIGNS: Reviewed. GENERAL: Well-developed in no acute distress. HEENT: Head is normocephalic. Pupils are equal, round. Sclerae anicteric. Mucous membranes of the mouth are moist. Neck supple. No JVD or thyromegaly LUNGS: Respirations even and unlabored. Lungs essentially clear to auscultation bilaterally. HEART: Regular rate and rhythm. S1 and S2 heard. ABDOMEN: Soft. Nondistended. Nontender. EXTREMITIES: Normal range of motion. No clubbing or cyanosis. Peripheral pulses intact. Right BKA NEUROLOGIC: Awake and alert. Oriented x 3. ASSESSMENT: Chest pain Syncope Acute on chronic heart failure with reduced EF 40 to 45% Hyperglycemia, blood sugars in the 300s upon admission Chronically elevated troponins Several hospitalizations for NSTEMI Severe CAD status post multiple PCI, awaiting evaluation at [facility] Dyslipidemia Diabetes mellitus type 2 Right BKA Ischemic cardiomyopathy with with most recent EF of 40 to 45% Status post AICD Hypertension PAD History of medication noncompliance Obesity: BMI 37.7 PLAN: Continue current cardiac medications Continue with oral Lasix Patient is stable for discharge home today from a cardiac standpoint Nurse practitioner note has been reviewed by physician. Signing provider agrees with the documented findings, assessment, and plan of care documented by CHIEF WRITER as a scribe. Objective - Vital Signs Vital signs: Vital Signs Temp 97.4 F L 11/03/24 07:00 Pulse 75 11/03/24 08:22 Resp 20 11/03/24 07:00 BP 118/75 11/03/24 07:00 Pulse Ox 96 11/03/24 07:00 FiO2 Intake & Output 11/02/24 11/03/24 11/03/24 18:59 06:59 18:59 Intake Total 236 118 Balance 236 118 Intake: Oral 236 118 Other: # Voids 1 2 - Labs CBC & Chem 7: 11/01/24 15:01 11/03/24 08:26 Labs: Abnormal Lab Results - Last 24 Hours (Table) 11/02/24 11/02/24 11/02/24 Range/Units 12:22 17:19 20:02 Carbon Dioxide (22-30) mmol/L BUN (9-20) mg/dL Glucose (74-99) mg/dL POC Glucose (mg/dL) 304 H 215 H 199 H (70-110) mg/dL 11/03/24 11/03/24 Range/Units 05:57 08:26 Carbon Dioxide 31 H (22-30) mmol/L BUN 21 H (9-20) mg/dL Glucose 169 H (74-99) mg/dL POC Glucose (mg/dL) 158 H (70-110) mg/dL
[2024-11-03 12:32] LABS: Glucose,Whole Blood 225 mg/dL (70-110)
[2024-11-03 17:36] LABS: Glucose,Whole Blood 221 mg/dL (70-110)
[2024-11-03 20:22] LABS: Glucose,Whole Blood 298 mg/dL (70-110)
[2024-11-04 02:04] VITALS: TEMP 97.6
[2024-11-04 05:45] LABS: Glucose,Whole Blood 162 mg/dL (70-110)
[2024-11-04 07:25] VITALS: BP 101/66; RESP 20
[2024-11-04 09:08] VITALS: PULSE 80
--- NOTE | 2024-11-04 13:10 | P.PN ---
Subjective HISTORY OF PRESENT ILLNESS: Bird is a 44-year-old male with a past medical history significant for coronary artery disease, hypertension, hyperlipidemia, diabetes, peripheral arterial disease, and obesity. Patient follows in the office with Dr. Hernandez. We have been asked to see the patient in consultation for chest pain and syncope. Patient exlilian mined at the bedside. Patient states yesterday he was at the park celebrating his daughter's birthday when he suddenly began to have chest discomfort. He states it felt like somebody was punching him in the chest. He states that he began to feel short of breath. He states that he laid down on a bench and the next thing he remembers he was in the hospital. The patient denies any chest pain this morning. He does report mild shortness of breath. DIAGNOSTICS: - EKG reveals sinus mechanism with IVCD. - Chest xray negative for acute process. - Current home cardiac medications include amlodipine 5 mg daily, Brilinta 90 mg twice a day, Aldactone 25 mg daily, Entresto 24-26 mg twice a day, Ranexa 1000 mg twice a day, metoprolol succinate 200 mg daily, Imdur 120 mg daily, Zetia 10 mg daily, aspirin 81 mg daily, Lipitor 80 mg at night. - Most recent echocardiogram obtained in August 2024 revealing ejection fraction 40 to 45% with mild TR - Cardiac catheterization history: 08/2024 revealing patent stent in the LAD/diagonal bifurcation with no evidence of high-grade stenosis with KUMAR-3 flow, ERGONOMIST of the circumflex which is a known finding from before, distal occluded RCA which is a new finding from before with multiple layers of stents and known nonviable inferior myocardium 11/03/2024 Patient examined this morning at the bedside. AICD was interrogated yesterday with no acute events noted. Patient denies any chest pain or shortness of breath. He denies dizziness or lightheadedness. No further episodes of syncope. Vital signs are stable. 11/04/2024 Patient examined this morning at the bedside. Patient currently denies chest pain or pressure. He denies shortness of breath. Vital signs are stable. PHYSICAL EXAM: VITAL SIGNS: Reviewed. GENERAL: Well-developed in no acute distress. HEENT: Head is normocephalic. Pupils are equal, round. Sclerae anicteric. Mucous membranes of the mouth are moist. Neck supple. No JVD or thyromegaly LUNGS: Respirations even and unlabored. Lungs essentially clear to auscultation bilaterally. HEART: Regular rate and rhythm. S1 and S2 heard. ABDOMEN: Soft. Nondistended. Nontender. EXTREMITIES: Normal range of motion. No clubbing or cyanosis. Peripheral pulses intact. Right BKA NEUROLOGIC: Awake and alert. Oriented x 3. ASSESSMENT: Chest pain Syncope Acute on chronic heart failure with reduced EF 40 to 45% Hyperglycemia, blood sugars in the 300s upon admission Chronically elevated troponins Several hospitalizations for NSTEMI Severe CAD status post multiple PCI, awaiting evaluation at [facility] Dyslipidemia Diabetes mellitus type 2 Right BKA Ischemic cardiomyopathy with with most recent EF of 40 to 45% Status post AICD Hypertension PAD History of medication noncompliance Obesity: BMI 37.7 PLAN: Continue current cardiac medications Continue with oral Lasix Patient is stable for discharge home today from a cardiac standpoint Nurse practitioner note has been reviewed by physician. Signing provider agrees with the documented findings, assessment, and plan of care documented by PLANT PROTECTION GUARD as a scribe. Objective - Vital Signs Vital signs: Vital Signs Temp 97.6 F 11/04/24 06:57 Pulse 80 11/04/24 09:05 Resp 20 11/04/24 06:57 BP 101/66 11/04/24 06:57 Pulse Ox 96 11/04/24 06:57 FiO2 Intake & Output 11/03/24 11/04/24 11/04/24 18:59 06:59 18:59 Intake Total 562 540 Balance 562 540 Intake: Oral 562 540 Other: # Voids 1 3 - Labs CBC & Chem 7: 11/01/24 15:01 11/03/24 08:26 Labs: Abnormal Lab Results - Last 24 Hours (Table) 11/03/24 11/03/24 11/04/24 Range/Units 17:34 20:20 05:44 POC Glucose (mg/dL) 221 H 298 H 162 H (70-110) mg/dL
== END 2024-11-04 12:00 | disposition home or self-care (01) ==
LOC: EC 14:50 → 6NMEDSUR 16:03
PROVIDERS: ADMIT Family Medicine; ATTEND Family Medicine
DX: R07.89 Other chest pain (principal); I11.0 Hypertensive heart disease with heart failure; I50.23 Acute on chronic systolic (congestive) heart failure; E11.65 Type 2 diabetes mellitus with hyperglycemia; I44.7 Left bundle-branch block, unspecified; I25.10 Atherosclerotic heart disease of native coronary artery without angina pectoris; R79.89 Other specified abnormal findings of blood chemistry; I07.1 Rheumatic tricuspid insufficiency; K76.0 Fatty (change of) liver, not elsewhere classified; E78.5 Hyperlipidemia, unspecified; E11.51 Type 2 diabetes mellitus with diabetic peripheral angiopathy without gangrene; E66.9 Obesity, unspecified; Z68.37 Body mass index [BMI] 37.0-37.9, adult; Z91.148 Patient's other noncompliance with medication regimen for other reason; I25.2 Old myocardial infarction; Z79.4 Long term (current) use of insulin; Z79.85 Long-term (current) use of injectable non-insulin antidiabetic drugs; Z79.899 Other long term (current) drug therapy; Z79.82 Long term (current) use of aspirin; Z79.02 Long term (current) use of antithrombotics/antiplatelets; Z88.0 Allergy status to penicillin; Z95.810 Presence of automatic (implantable) cardiac defibrillator; Z95.5 Presence of coronary angioplasty implant and graft; Z89.511 Acquired absence of right leg below knee; Z87.891 Personal history of nicotine dependence
CPT/HCPCS: 96376 ×3; 96375 ×2; 96374; 99285; 36415; 94640 ×5; 94760; 93005; 85379; 83880; 80061; 80053; 80048; 82150; 83690; 83735; 84484; 85025; 85610; 85730; 83721; 71046; 71250; G0378 ×4; J2270; J1171 ×4; J1938

== ENCOUNTER 2024-11-04 14:14 | Observation (INO) | payer OTHER ==
[2024-11-04 14:43] LABS: Basophils # (A) 0.11 10*3/uL (0.00-0.10); Basophils % (A) 1.1 %; Eosinophils # (A) 0.34 10*3/uL (0.04-0.35); Eosinophils % (A) 3.3 %; HCT 41.6 % (39.6-50.0); HGB 13.5 g/dL (13.0-17.0); Lymphocytes # (A) 1.61 10*3/uL (0.90-5.00); Lymphocytes % (A) 15.9 %; MCH 23.7 pg (27.0-32.0); MCHC 32.5 g/dL (32.0-37.0); MCV 73.1 fL (80.0-97.0); Monocytes # (A) 0.79 10*3/uL (0.20-1.00); Monocytes % (A) 7.8 %; Neutrophils # (A) 7.21 10*3/uL (1.80-7.70); Neutrophils % (A) 71.0 %; Platelet Count 265 10*3/uL (140-440); RBC 5.69 10*6/uL (4.40-5.60); RDW 17.7 % (11.5-14.5); WBC 10.15 10*3/uL (4.50-10.00)
--- NOTE | 2024-11-04 14:53 | XR ---
EXAMINATION TYPE: XR chest 2V DATE OF EXAM: 11/04/2024 2:48 PM COMPARISON: 11/01/2024 CLINICAL INDICATION: Male, 44 years old with history of Chest Pain, , TECHNIQUE: AP and lateral views FINDINGS: Left anterior chest wall pacemaker generator with right ventricular lead. Heart borderline in size. H azy lung densities relating to overlying soft tissue. No consolidation or pleural effusion. IMPRESSION: Borderline heart size. No acute process seen. [facility], Workstation: [email or web address], 11/04/2024 2:51 PM
[2024-11-04 14:56] LABS: INR 1.0 (<1.2); Partial Thromboplastin Time 22.9 sec (22.0-30.0); Prothrombin Time 10.9 sec (10.0-12.5)
[2024-11-04 14:59] LABS: ALT 15 U/L (4-49); AST 20 U/L (17-59); African American GFR (CKD) >90 (>60 ml/min/1.73 sqM); Albumin 3.4 g/dL (3.5-5.0); Alkaline Phosphatase 78 U/L (38-126); Anion Gap 11 mmol/L; Blood Urea Nitrogen 24 mg/dL (9-20); Calcium 8.8 mg/dL (8.4-10.2); Carbon Dioxide 24 mmol/L (22-30); Chloride 102 mmol/L (98-107); Glucose 151 mg/dL (74-99); Lipase 27 U/L (23-300); Magnesium 1.9 mg/dL (1.6-2.3); Non-African American GFR(CKD) 86 (>60 ml/min/1.73 sqM); Potassium 4.5 mmol/L (3.5-5.1); Sodium 137 mmol/L (137-145); Total Protein 6.2 g/dL (6.3-8.2)
[2024-11-04 15:07] LABS: NT-Pro-B-Type Natriuretic Pept 398 pg/mL
[2024-11-04] MEDS: MORPHINE SULFATE 4 MG/ML SYRINGE IVP STA (15:49)
[2024-11-04] MEDS: METOCLOPRAMIDE 5 MG/ML 2 ML VIAL IVP STA (15:50)
[2024-11-04] MEDS: diphenhydrAMINE 50 MG/ML 1 ML VIAL IVP STA (15:50)
[2024-11-04] MEDS ORDERED: NALOXONE 0.4 MG/ML 1 ML VIAL IV PRN (17:27)
--- NOTE | 2024-11-04 17:27 | ED ---
Chest Pain HPI - General Chief Complaint: Chest Pain Stated Complaint: Chest pain Time Seen by Provider: 11/04/24 14:20 Source: patient Mode of arrival: EMS Limitations: no limitations - History of Present Illness Initial Comments: 44-year-old male with past medical history of coronary artery disease who presents emergency department chest pain. Patient was just discharged from the hospital today. He states that he felt fine when he left the hospital. He went home and sat on the couch and then started having sharp pain in the left side of his chest which radiated to his arm. Admits to associated shortness of breath. He informs me that he was told he needs to go to of to be evaluated for heart transplant as this is the only thing that may alleviate his pain. He states he has been taking all of his medications without any missed doses. No fevers chills or cough. No other alleviating, precipitating or modifying factors - Related Data Home Medications Medication Instructions Recorded Confirmed Lidocaine 4% Patch 1 patch TRANSDERM DAILY 05/08/24 11/04/24 HYDROcodone/APAP 10-325MG [[place] 1 tab PO TID 07/15/24 11/04/24 10-325] Omeprazole [PriLOSEC] 40 mg PO DAILY 07/15/24 11/04/24 Semaglutide [Ozempic] 2 mg SQ TH 07/15/24 11/04/24 Sacubitril/Valsartan [Entresto 24 1 tab PO BID 07/18/24 11/04/24 mg-26 mg Tablet] Insulin NPH Hum/Reg Insulin Hm 60 unit SQ BID 09/18/24 11/04/24 [humuLIN 70/30 Kwikpen] Metoprolol Succinate [Toprol XL] 200 mg PO DAILY 10/07/24 11/04/24 Fenofibrate [Lofibra] 160 mg PO DAILY 11/01/24 11/04/24 Previous Rx's Medication Instructions Recorded Aspirin 81 mg PO DAILY #30 07/15/21 Nitroglycerin Sl Tabs [Nitrostat] 0.4 mg SUBLINGUAL Q5M PRN #30 tab 07/15/21 Atorvastatin [Lipitor] 80 mg PO HS #30 tab 05/13/24 Ticagrelor [Brilinta] 90 mg PO BID #60 tab 05/13/24 Ipratropium-Albuterol Nebulize 3 ml INHALATION RT-TID 30 Days 06/24/24 [Duoneb 0.5 mg-3 mg/3 ml Soln] #120 each Isosorbide Mononitrate ER [Imdur] 120 mg PO DAILY 30 Days #30 tab 06/24/24 amLODIPine [Norvasc] 5 mg PO DAILY 30 Days #30 tab 06/24/24 Acetaminophen Tab [Tylenol] 650 mg PO Q6HR PRN tab 07/15/24 Colchicine [Colcrys] 0.6 mg PO DAILY 30 Days #30 each 07/15/24 Ezetimibe [Zetia] 10 mg PO DAILY 90 Days #90 tab 07/15/24 Ranolazine [Ranexa] 1,000 mg PO Q12HR 30 Days #60 tab 07/15/24 Spironolactone [Aldactone] 25 mg PO DAILY 90 Days #90 tab 07/15/24 Famotidine [Pepcid] 20 mg PO BID tab 07/19/24 Mag Hydrox/Al Hydrox/Simeth 15 ml PO Q6HR PRN ml 07/19/24 [Maalox] Furosemide [Lasix] 20 mg PO BID@0900,1600 30 Days #60 11/04/24 tab Allergies Allergy/AdvReac Type Severity Reaction Status Date / Time Penicillins Allergy Unknown Verified 11/04/24 15:48 Childhood Review of Systems ROS Statement: Those systems with pertinent positive or pertinent negative responses have been documented in the HPI. ROS Other: All systems not noted in ROS Statement are negative. Past Medical History Past Medical History: Coronary Artery Disease (CAD), Chest Pain / Angina, Heart Failure, CVA/TIA, Diabetes Mellitus, Hyperlipidemia, Hypertension, Myocardial Infarction ([place]), Respiratory Disorder, Sleep Apnea/CPAP/BIPAP, Syncope Additional Past Medical History / Comment(s): AICD. IDDM type II. Neuropathy bilateral feet. 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 Migraines. Chronic back pain. R BKA (done 2023). Last Myocardial Infarction Date:: 2023 History of Any Multi-Drug Resistant Organisms: None Reported Past Surgical History: AICD, Heart Catheterization, Heart Catheterization With Stent, Orthopedic Surgery Additional Past Surgical History / Comment(s): 10/27/12 AICD, DFTs, PCI with 2 stents, R BKA. Stent placemnet in August 2024 at [facility] Past Anesthesia/Blood Transfusion Reactions: No Reported Reaction Date of Last Stent Placement:: 08/2024 Type of Cardiac Device: AICD Device Placement Date:: 2012 Past Psychological History: Anxiety, Depression Additional Psychological History / Comment(s): rajesh . Smoking Status: Never smoker Past Alcohol Use History: None Reported Additional Past Alcohol Use History / Comment(s): quit in 2019 about 1/2 ppd Past Drug Use History: None Reported - Past Family History Mother Family Medical History: No Reported History Brother(s) Family Medical History: Myocardial Infarction ([place]) Father Family Medical History: Liver Disease Sister(s) Additional Family Medical History / Comment(s): Huntings disease General Exam Limitations: no limitations General appearance: alert, in no apparent distress Head exam: Present: atraumatic, normocephalic, normal inspection Eye exam: Present: normal appearance, PERRL, EOMI. Absent: scleral icterus, conjunctival injection, periorbital swelling ENT exam: Present: normal exam, mucous membranes moist Neck exam: Present: normal inspection. Absent: tenderness, meningismus, lymphadenopathy Respiratory exam: Present: normal lung sounds bilaterally. Absent: respiratory distress, wheezes, rales, rhonchi, stridor Cardiovascular Exam: Present: regular rate, normal rhythm, normal heart sounds. Absent: systolic murmur, diastolic murmur, rubs, gallop, clicks GI/Abdominal exam: Present: soft, normal bowel sounds. Absent: distended, tenderness, guarding, rebound, rigid Extremities exam: Present: normal inspection, full ROM, normal capillary refill. Absent: tenderness, pedal edema, joint swelling, calf tenderness Back exam: Present: normal inspection Neurological exam: Present: alert, oriented X3, CN II-XII intact Psychiatric exam: Present: normal affect, normal mood Skin exam: Present: warm, dry, intact, normal color. Absent: rash Course Vital Signs 11/04/24 11/04/24 11/04/24 14:17 15:52 17:00 Temperature 97.0 F L Pulse Rate 79 73 65 Respiratory 18 18 16 Rate Blood Pressure 117/76 111/72 102/71 O2 Sat by Pulse 97 96 97 Oximetry 11/04/24 11/04/24 18:00 18:12 Temperature 97.4 F L Pulse Rate 70 65 Respiratory 18 16 Rate Blood Pressure 102/70 104/70 O2 Sat by Pulse 97 99 Oximetry Chest Pain MDM - MDM Was pt. sent in by a medical professional or institution (JAYA Cruz, FRENCH FOLDING MACHINE OPERATOR, urgent care, hospital, or prison...) When possible be specific @ -No Did you speak to anyone other than the patient for history (EMS, parent, family, police, friend...)? What history was obtained from this source @ -Spoke with EMS for history Did you review nursing and triage notes (agree or disagree)? Why? @ -I reviewed and agree with nursing and triage notes Were old charts reviewed (outside hosp., previous admission, EMS record, old EKG, old radiological studies, urgent care reports/EKG's, prison records)? Report findings @ -I reviewed the discharge summary from earlier today Differential Diagnosis (chest pain, altered mental status, abdominal pain women, abdominal pain men, vaginal bleeding, weakness, fever, dyspnea, syncope, headache, dizziness, GI bleed, back pain, seizure, CVA, palpatations, mental health, musculoskeletal)? @ -Differential Chest Pain: Stable Angina, Unstable Angina, STEMI, NSTEMI Aortic Dissection, Pneumothorax, Musculoskeletal, Esophageal Spasm GERD, Cholecystitis, Pancreatitis, Zoster, this is not meant to be an all-inclusive list. EKG interpreted by me (3pts min.). @ -Yes which demonstrates sinus rhythm with a rate of 76. [place] interval 215. QRS 139. QTc of 427. Left bundle branch block. No acute ST segment elevations or depressions X-rays interpreted by me (1pt min.). @ -Yes which demonstrates no acute process CT interpreted by me (1pt min.). @ -None done U/S interpreted by me (1pt. min.). @ -None done What testing was considered but not performed or refused? (CT, X-rays, U/S, labs)? Why? @ -None What meds were considered but not given or refused? Why? @ -None Did you discuss the management of the patient with other professionals (professionals i.e. JAYA Cruz, FRENCH FOLDING MACHINE OPERATOR, lab, RT, psych nurse, social work faculty member, repeat photocomposing machine operator, teacher, community reinvestment act officer, case technician)? Give summary @Spoke with Dr. Kauffman who will admit the patient Was smoking cessation discussed for >3mins.? @ -No Was critical care preformed (if so, how long)? @ -No Were there social determinants of health that impacted care today? How? (Homelessness, low income, unemployed, alcoholism, drug addiction, transportation, low edu. Level, literacy, decrease access to med. care, fpc, rehab)? @ -No Was there de-escalation of care discussed even if they declined (Discuss DNR or withdrawal of care, Hospice)? DNR status @ -No What co-morbidities impacted this encounter? (DM, HTN, Smoking, COPD, CAD, Cancer, CVA, ARF, Chemo, Hep., AIDS, mental health diagnosis, sleep apnea, morbid obesity)? @ -Coronary artery disease Was patient admitted / discharged? Hospital course, mention meds given and route, prescriptions, significant lab abnormalities, going to OR and other pertinent info. @ -Upon arrival patient seen and evaluated in bed 5. Thorough history and physical exam was performed. Patient placed on continuous pulse ox and cardiac monitoring. Twelve-lead EKG is obtained. Laboratory studies are conducted. Chest x-ray was performed. Patient was given morphine for pain control. He is also given Reglan and Benadryl for his nausea. He is reevaluated and continues to have pain. Patient wants to be admitted as he is very concerned about his heart and states that he currently lives up in [place]. I spoke with Dr. Kauffman who will admit the patient Undiagnosed new problem with uncertain prognosis? @ -No Drug Therapy requiring intensive monitoring for toxicity (Heparin, Nitro, Insulin, Cardizem)? @ -No Were any procedures done? @ -No Diagnosis/symptom? @ -Acute on chronic chest pain, history of coronary artery disease Acute, or Chronic, or Acute on Chronic? @ -Acute on chronic Uncomplicated (without systemic symptoms) or Complicated (systemic symptoms)? @ -Complicated Side effects of treatment? @ -No Exacerbation, Progression, or Severe Exacerbation? @ -No Poses a threat to life or bodily function? How? (Chest pain, [place], [place], pneumonia, PE, COPD, DKA, ARF, appy, cholecystitis, CVA, Diverticulitis, Homicidal, Suicidal, threat to staff... and all critical care pts) @ -No Disposition Clinical Impression: Chest pain Disposition: ADMITTED IP TO THIS HOSP Condition: Stable Is patient prescribed a controlled substance at d/c from ED?: No Time of Disposition: 17:27 Decision to Admit Reason: Admit from EC Decision Date: 11/04/24 Decision Time: 17:27
[2024-11-04 20:33] LABS: Glucose,Whole Blood 218 mg/dL (70-110)
[2024-11-04] MEDS ORDERED: NITROGLYCERIN SL TABS 0.4 MG TAB SUBLINGUAL PRN (20:38)
[2024-11-04] MEDS ORDERED: DEXTROSE 50% SYRINGE 50 ML IVP PRN ×2 (20:43)
[2024-11-04] MEDS: INSULIN LISPRO (HumaLOG) 100 UNIT/ML 10 mL VL SQ SCH (21:41)
[2024-11-04] MEDS: RANOLAZINE 500 MG TAB.ER.12H PO SCH (21:42)
[2024-11-04] MEDS: HYDROcodone/APAP 10-325MG 1 EACH TAB PO SCH (21:42)
[2024-11-04] MEDS: FAMOTIDINE 20 MG TAB PO SCH (21:42)
[2024-11-04] MEDS: ATORVASTATIN 80 MG TAB PO SCH (21:43)
[2024-11-04] MEDS: SACUBITRIL/VALSARTAN 24 MG-26 MG TABLET PO SCH (21:43)
[2024-11-04] MEDS: TICAGRELOR 90 MG TAB PO SCH (21:50)
[2024-11-05] MEDS: MORPHINE SULFATE 4 MG/ML SYRINGE IV PRN (00:13)
[2024-11-05 06:12] LABS: Glucose,Whole Blood 266 mg/dL (70-110)
[2024-11-05 08:06] LABS: Basophils # (A) 0.12 X 10*3/uL (0.00-0.10); Basophils % (A) 1.6 %; Eosinophils # (A) 0.28 X 10*3/uL (0.04-0.35); Eosinophils % (A) 3.6 %; HCT 44.2 % (39.6-50.0); HGB 13.6 g/dL (13.0-17.0); Immature Grans, Automated 1.30 %; Lymphocytes # (A) 2.27 X 10*3/uL (0.90-5.00); Lymphocytes % (A) 29.6 %; MCH 23.1 pg (27.0-32.0); MCHC 30.8 g/dL (32.0-37.0); MCV 75.0 FL (80.0-97.0); Monocytes # (A) 0.72 X 10*3/uL (0.20-1.00); Monocytes % (A) 9.4 %; NRBC Per 100 WBC 0 X 10*3/uL (0.00-0.01); Neutrophils # (A) 4.19 X 10*3/uL (1.80-7.70); Neutrophils % (A) 54.5 %; Platelet Count 267 X 10*3/uL (140-440); RBC 5.89 X 10*6/uL (4.40-5.60); RDW 18.6 % (11.5-14.5); WBC 7.68 X 10*3/uL (4.50-10.00)
[2024-11-05] MEDS: IPRATROPIUM-ALBUTEROL 3 ML NEB INHALATION SCH (08:16)
[2024-11-05 08:35] LABS: Anion Gap 10.70 mmol/L (4.00-12.00); BUN/Creat Ratio 17.88 Ratio (12.00-20.00); Blood Urea Nitrogen 28.6 mg/dL (9.0-27.0); Calcium 8.3 mg/dL (8.7-10.3); Carbon Dioxide 24.3 mmol/L (21.6-31.8); Chloride 102 mmol/L (96-109); Glucose 348 mg/dL (70-110); Potassium 4.6 mmol/L (3.5-5.5); Sodium 137 mmol/L (135-145)
[2024-11-05] MEDS: ISOSORBIDE MONONITRATE ER 60 MG TAB.ER.24H PO SCH (09:17)
[2024-11-05] MEDS: SPIRONOLACTONE 25 MG TAB PO SCH (09:17)
[2024-11-05] MEDS: COLCHICINE 0.6 MG EACH PO SCH (09:17)
[2024-11-05] MEDS: FENOFIBRATE 160 MG TAB PO SCH (09:17)
[2024-11-05] MEDS: EZETIMIBE 10 MG TAB PO SCH (09:17)
[2024-11-05] MEDS: ASPIRIN 81 MG PO SCH (09:17)
[2024-11-05] MEDS: amLODIPine 5 MG TAB PO SCH (09:17)
[2024-11-05] MEDS: FUROSEMIDE 20 MG TAB PO SCH (09:17)
[2024-11-05] MEDS: METOPROLOL SUCCINATE (ER) 100 MG TAB.ER.24H PO SCH (09:29)
[2024-11-05 09:38] LABS: Glucose,Whole Blood 246 mg/dL (70-110)
--- NOTE | 2024-11-05 11:45 | P.CRDCN ---
History of Present Illness History of present illness: HISTORY OF PRESENT ILLNESS: This is a 44-year-old male with a past medical history significant for coronary artery disease, hypertension, hyperlipidemia, diabetes, peripheral arterial dis ease, and obesity. Patient follows in the office with Dr. Hernandez. We have been asked to see the patient in consultation for chest pain. Patient examined at the bedside. Patient was just discharged from the hospital yesterday. He states that he walked to the store when he started to feel dizzy, short of breath, nauseated, and having chest pain. He states that his made him come to the hospital to get checked out. He reports he is feeling well this morning with no symptoms. However he is requesting to stay in the hospital until tomorrow. DIAGNOSTICS: - EKG reveals sinus mechanism with no signs of acute ischemia. - Chest xray borderline heart size. No acute process seen.. - Laboratory data: Troponin negative x 3 - Current home cardiac medications include amlodipine 5 mg daily, Brilinta 90 mg twice a day, Aldactone 25 mg daily, Entresto 24-26 mg twice a day, Ranexa 1000 mg twice a day, metoprolol succinate 200 mg daily, Imdur 120 mg daily, Lasix 20 mg twice a day, fenofibrate 160 mg daily, Zetia 10 mg daily, colchicine 0.6 mg daily, Lipitor 80 mg at night, aspirin 81 mg daily - Most recent echocardiogram obtained in August 2024 revealing ejection fraction 40 to 45% with mild TR - Cardiac catheterization history: 08/2024 revealing patent stent in the LAD/diagonal bifurcation with no evidence of high-grade stenosis with KUMAR-3 flow, INFORMATION TECHNOLOGY ACCOUNT MANAGER of the circumflex which is a known finding from before, distal occluded RCA which is a new finding from before with multiple layers of stents and known nonviable inferior myocardium REVIEW OF SYSTEMS: At the time of my exam: CONSTITUTIONAL: Denies fever or chills. HEENT: Denies blurred vision, vision changes, or eye pain. Denies hemoptysis CARDIOVASCULAR: Denies chest pain. Denies orthopnea. Denies PND. Denies palpitations RESPIRATORY: Denies shortness of breath. GASTROINTESTINAL: Denies abdominal pain. Denies nausea or vomiting. HEMATOLOGIC: Denies bleeding disorders. GENITOURINARY: Denies any blood in urine. SKIN: Denies pruitis. Denies rash. PHYSICAL EXAM: VITAL SIGNS: Reviewed. GENERAL: Well-developed in no acute distress. HEENT: Head is normocephalic. Pupils are equal, round. Sclerae anicteric. Mucous membranes of the mouth are moist. Neck supple. No JVD or thyromegaly LUNGS: Respirations even and unlabored. Lungs essentially clear to auscultation bilaterally. HEART: Regular rate and rhythm. S1 and S2 heard. ABDOMEN: Soft. Nondistended. Nontender. EXTREMITIES: Normal range of motion. No clubbing or cyanosis. Peripheral pulses intact. Right BKA. NEUROLOGIC: Awake and alert. Oriented x 3. ASSESSMENT: Chest pain Recent hospitalization for syncope and chest pain Chronic heart failure with reduced EF 40 to 45% Hyperglycemia, blood sugars in the 300s upon admission Chronically elevated troponins Several hospitalizations for NSTEMI Severe CAD status post multiple PCI, awaiting evaluation at [facility] Dyslipidemia Diabetes mellitus type 2 Right BKA Ischemic cardiomyopathy with with most recent EF of 40 to 45% Status post AICD Hypertension PAD History of medication noncompliance Obesity: BMI 37.7 PLAN: An acute coronary event has been ruled out Resume home cardiac medications Patient is stable for discharge home today from a cardiac standpoint Patient to follow-up postdischarge with Dr. Hernandez Nurse practitioner note has been reviewed by physician. Signing provider agrees with the documented findings, assessment, and plan of care documented by RADIO TOWER TECHNICIAN as a scribe. Past Medical History Past Medical History: Coronary Artery Disease (CAD), Chest Pain / Angina, Heart Failure, CVA/TIA, Diabetes Mellitus, Hyperlipidemia, Hypertension, Myocardial Infarction ([place]), Respiratory Disorder, Sleep Apnea/CPAP/BIPAP, Syncope Additional Past Medical History / Comment(s): AICD. IDDM type II. Neuropathy bilateral feet. 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 Migraines. Chronic back pain. R BKA (done 2023). Last Myocardial Infarction Date:: 2023 History of Any Multi-Drug Resistant Organisms: None Reported Past Surgical History: AICD, Heart Catheterization, Heart Catheterization With Stent, Orthopedic Surgery Additional Past Surgical History / Comment(s): 10/27/12 AICD, DFTs, PCI with 2 stents, R BKA. Stent placemnet in August 2024 at [facility] Past Anesthesia/Blood Transfusion Reactions: No Reported Reaction Date of Last Stent Placement:: 08/2024 Type of Cardiac Device: AICD Device Placement Date:: 2012 Past Psychological History: Anxiety, Depression Additional Psychological History / Comment(s): rajesh . Smoking Status: Never smoker Past Alcohol Use History: None Reported Additional Past Alcohol Use History / Comment(s): quit in 2019 about 1/2 ppd Past Drug Use History: None Reported - Past Family History Mother Family Medical History: No Reported History Brother(s) Family Medical History: Myocardial Infarction ([place]) Father Family Medical History: Liver Disease Sister(s) Additional Family Medical History / Comment(s): Huntings disease Medications and Allergies Home Medications Medication Instructions Recorded Confirmed Type Aspirin 81 mg PO DAILY #30 07/15/21 11/04/24 Rx Nitroglycerin Sl Tabs [Nitrostat] 0.4 mg SUBLINGUAL Q5M PRN #30 tab 07/15/21 11/04/24 Rx Lidocaine 4% Patch 1 patch TRANSDERM DAILY 05/08/24 11/04/24 History Atorvastatin [Lipitor] 80 mg PO HS #30 tab 05/13/24 11/04/24 Rx Ticagrelor [Brilinta] 90 mg PO BID #60 tab 05/13/24 11/04/24 Rx Ipratropium-Albuterol Nebulize 3 ml INHALATION RT-TID 30 Days 06/24/24 11/04/24 Rx [Duoneb 0.5 mg-3 mg/3 ml Soln] #120 each Isosorbide Mononitrate ER [Imdur] 120 mg PO DAILY 30 Days #30 tab 06/24/24 11/04/24 Rx amLODIPine [Norvasc] 5 mg PO DAILY 30 Days #30 tab 06/24/24 11/04/24 Rx Acetaminophen Tab [Tylenol] 650 mg PO Q6HR PRN tab 07/15/24 11/04/24 Rx Colchicine [Colcrys] 0.6 mg PO DAILY 30 Days #30 each 07/15/24 11/04/24 Rx Ezetimibe [Zetia] 10 mg PO DAILY 90 Days #90 tab 07/15/24 11/04/24 Rx HYDROcodone/APAP 10-325MG [[place] 1 tab PO TID 07/15/24 11/04/24 History 10-325] Omeprazole [PriLOSEC] 40 mg PO DAILY 07/15/24 11/04/24 History Ranolazine [Ranexa] 1,000 mg PO Q12HR 30 Days #60 tab 07/15/24 11/04/24 Rx Semaglutide [Ozempic] 2 mg SQ TH 07/15/24 11/04/24 History Spironolactone [Aldactone] 25 mg PO DAILY 90 Days #90 tab 07/15/24 11/04/24 Rx Sacubitril/Valsartan [Entresto 24 1 tab PO BID 07/18/24 11/04/24 History mg-26 mg Tablet] Famotidine [Pepcid] 20 mg PO BID tab 07/19/24 11/04/24 Rx Mag Hydrox/Al Hydrox/Simeth 15 ml PO Q6HR PRN ml 07/19/24 11/04/24 Rx [Maalox] Insulin NPH Hum/Reg Insulin Hm 60 unit SQ BID 09/18/24 11/04/24 History [humuLIN 70/30 Kwikpen] Metoprolol Succinate [Toprol XL] 200 mg PO DAILY 10/07/24 11/04/24 History Fenofibrate [Lofibra] 160 mg PO DAILY 11/01/24 11/04/24 History Furosemide [Lasix] 20 mg PO BID@0900,1600 30 Days #60 11/04/24 11/04/24 Rx tab Allergies Allergy/AdvReac Type Severity Reaction Status Date / Time Penicillins Allergy Unknown Verified 11/04/24 15:48 Childhood Physical Exam Vitals: Vital Signs Temp Pulse Pulse Resp BP BP BP 11/05/24 08:25 80 11/05/24 08:16 88 11/05/24 07:47 98.2 F 92 16 130/89 11/05/24 01:41 97.5 F L 84 16 123/71 11/04/24 19:02 97.7 F 73 16 108/71 11/04/24 18:12 97.4 F L 65 16 104/70 11/04/24 18:00 70 18 102/70 11/04/24 17:00 65 16 102/71 11/04/24 15:52 73 18 111/72 11/04/24 14:17 97.0 F L 79 18 117/76 Pulse Ox 11/05/24 08:25 11/05/24 08:16 11/05/24 07:47 95 07/17/25 01:41 93 L 11/04/24 19:02 95 11/04/24 18:12 99 11/04/24 18:00 97 11/04/24 17:00 97 11/04/24 15:52 96 11/04/24 14:17 97 Intake and Output 11/04/24 11/05/24 11/05/24 22:59 06:59 14:59 Other: Voiding Method Toilet Toilet # Voids 2 Weight 125.191 kg Results 11/05/24 04:39 11/05/24 04:39 Cardiac Enzymes 11/04/24 11/04/24 11/04/24 Range/Units 14:33 14:33 17:53 AST 20 (17-59) U/L Troponin I <0.012 0.014 (0.000-0.034) ng/mL 11/04/24 Range/Units 20:53 AST (17-59) U/L Troponin I 0.017 (0.000-0.034) ng/mL Coagulation 11/04/24 Range/Units 14:33 PT 10.9 (10.0-12.5) sec APTT 22.9 (22.0-30.0) sec CBC 11/04/24 11/05/24 Range/Units 14:33 04:39 WBC 10.15 H 7.68 (4.50-10.00) 10*3/uL RBC 5.69 H 5.89 H (4.40-5.60) 10*6/uL Hgb 13.5 13.6 (13.0-17.0) g/dL Hct 41.6 44.2 (39.6-50.0) % Plt Count 265 267 (140-440) 10*3/uL Comprehensive Metabolic Panel 11/04/24 11/05/24 Range/Units 14:33 04:39 Sodium 137 137 (137-145) mmol/L Potassium 4.5 4.6 (3.5-5.1) mmol/L Chloride 102 102 (98-107) mmol/L Carbon Dioxide 24 24.3 (22-30) mmol/L BUN 24 H 28.6 H (9-20) mg/dL Creatinine 1.06 1.6 H (0.66-1.25) mg/dL Glucose 151 H 348 H (74-99) mg/dL Calcium 8.8 8.3 L (8.4-10.2) mg/dL AST 20 (17-59) U/L ALT 15 (4-49) U/L Alkaline Phosphatase 78 (38-126) U/L Total Protein 6.2 L (6.3-8.2) g/dL Albumin 3.4 L (3.5-5.0) g/dL Current Medications Generic Name Dose Route Start Last Admin Trade Name Ronaldoq PRN Reason Stop Dose Admin Hydrocodone Bitart/Acetaminophen 1 each 11/04/24 22:00 11/05/24 09:16 Hydrocodone/Apap 10-325mg 1 Each Tab PO 1 each TID KSENIA Administration Albuterol/Ipratropium 3 ml 11/05/24 08:00 11/05/24 08:16 Ipratropium-Albuterol 3 Ml Neb INHALATION 3 ml RT-TID KSENIA Administration Amlodipine Besylate 5 mg 11/05/24 09:00 11/05/24 09:17 Amlodipine 5 Mg Tab PO 5 mg DAILY KSENIA Administration Aspirin 81 mg 11/05/24 09:00 11/05/24 09:17 Aspirin 81 Mg PO 81 mg DAILY KSENIA Administration Atorvastatin Calcium 80 mg 11/04/24 21:00 11/04/24 21:43 Atorvastatin 80 Mg Tab PO 80 mg HS KSENIA Administration Colchicine 0.6 mg 11/05/24 09:00 11/05/24 09:17 Colchicine 0.6 Mg Each PO 0.6 mg DAILY KSENIA Administration Dextrose/Water 25 ml 11/04/24 20:43 Dextrose 50% Syringe 50 Ml IVP PER PROTOCOL PRN Hypoglycemia Protocol Dextrose/Water 50 ml 11/04/24 20:43 Dextrose 50% Syringe 50 Ml IVP PER PROTOCOL PRN Hypoglycemia Protocol Ezetimibe 10 mg 11/05/24 09:00 11/05/24 09:17 Ezetimibe 10 Mg Tab PO 10 mg DAILY KSENIA Administration Famotidine 20 mg 11/04/24 21:00 11/05/24 09:17 Famotidine 20 Mg Tab PO 20 mg BID KSENIA Administration Fenofibrate 160 mg 11/05/24 09:00 11/05/24 09:17 Fenofibrate 160 Mg Tab PO 160 mg DAILY KSENIA Administration Furosemide 20 mg 11/05/24 09:00 11/05/24 09:17 Furosemide 20 Mg Tab PO 20 mg BID@0900,1600 KSENIA Administration Insulin Human Lispro 0 unit 11/04/24 21:00 11/05/24 09:48 Insulin Lispro (Humalog) 100 Unit/Ml 10 Ml Vl SQ 4 unit ACHS KSENIA Administration Protocol Isosorbide Mononitrate 120 mg 11/05/24 09:00 11/05/24 09:17 Isosorbide Mononitrate Er 60 Mg Tab.Er.24h PO 120 mg DAILY KSENIA Administration Metoprolol Succinate 200 mg 11/05/24 09:00 11/05/24 09:29 Metoprolol Succinate (Er) 100 Mg Tab.Er.24h PO 200 mg DAILY KSENIA Administration Morphine Sulfate 4 mg 11/04/24 17:27 11/05/24 09:48 Morphine Sulfate 4 Mg/Ml Syringe IV 4 mg Q4HR PRN Administration Severe Pain (Scale 7 to 10) Naloxone HCl 0.2 mg 11/04/24 17:27 Naloxone 0.4 Mg/Ml 1 Ml Vial IV Q2M PRN Opioid Reversal Nitroglycerin 0.4 mg 11/04/24 20:38 Nitroglycerin Sl Tabs 0.4 Mg Tab SUBLINGUAL Q5M PRN Chest Pain Ranolazine 1,000 mg 11/04/24 21:00 11/05/24 09:17 Ranolazine 500 Mg Tab.Er.12h PO 1,000 mg Q12HR KSENIA Administration Sacubitril/Valsartan 1 each 11/04/24 21:00 11/05/24 09:16 Sacubitril/Valsartan 24 Mg-26 Mg Tablet PO 1 each BID KSENIA Administration Spironolactone 25 mg 11/05/24 09:00 11/05/24 09:17 Spironolactone 25 Mg Tab PO 25 mg DAILY KSENIA Administration Ticagrelor 90 mg 11/04/24 21:00 11/05/24 09:16 Ticagrelor 90 Mg Tab PO 90 mg BID KSENIA Administration Intake and Output 11/04/24 11/05/24 11/05/24 22:59 06:59 14:59 Other: Voiding Method Toilet Toilet # Voids 2 Weight 125.191 kg 11/05/24 04:39 11/05/24 04:39
[2024-11-05 12:23] LABS: Glucose,Whole Blood 320 mg/dL (70-110)
--- NOTE | 2024-11-05 13:09 | HP ---
HISTORY AND PHYSICAL HISTORY OF PRESENT ILLNESS: A 44-year-old white male came to the hospital due to dizziness, shortness of breath, chest tightness. He thought he was having a heart disease, heart attack, getting in the hospital and admitted to rule out coronary artery disease. PHYSICAL EXAMINATION: VITAL SIGNS: Reviewed. Labs show sugars in the 300s. HEENT: Pupils equal, round, reactive. LUNGS: Clear. Decreased breath sounds. HEART: S1, S2. ABDOMEN: Soft. EXTREMITIES: No cyanosis, clubbing, or edema. NEUROLOGIC: Alert and oriented x3. REVIEW OF SYSTEMS: A 14-point review of systems negative. Being noncompliant with his oxygen and his breathing treatments. ASSESSMENT AND PLAN: Atypical chest pain, chronic heart failure with reduced ejection fraction, uncontrolled diabetes mellitus, elevated troponins, several hospitalizations for non ST-segment elevation myocardial infarction currently at [facility] for cardiac disease, diabetes type 2, below-knee amputation, cardiomyopathy, AICD, hypertension, and BMI of 37.7. Rule out acute coronary event. Cardiology consult. Possible discharge when cleared by Cardiology. MMODL / IJN: [id number] /
[2024-11-05 17:13] LABS: Glucose,Whole Blood 302 mg/dL (70-110)
[2024-11-05 19:56] LABS: Glucose,Whole Blood 346 mg/dL (70-110)
[2024-11-06 05:49] LABS: Glucose,Whole Blood 309 mg/dL (70-110)
--- NOTE | 2024-11-06 10:51 | P.PN ---
Subjective HISTORY OF PRESENT ILLNESS: This is a 44-year-old male with a past medical history significant for coronary artery disease, hypertension, hyperlipidemia, diabetes, peripheral arterial disease, and obesity. Patient follows in the office with Dr. Hernandez. We have been asked to see the patient in consultation for chest pain. Patient examined at the bedside. Patient was just discharged from the hospital yesterday. He states that he walked to the store when he started to feel dizzy, short of breath, nauseated, and having chest pain. He states that his made him come to the hospital to get checked out. He reports he is feeling well this morning with no symptoms. However he is requesting to stay in the hospital until tomorrow. DIAGNOSTICS: - EKG reveals sinus mechanism with no signs of acute ischemia. - Chest xray borderline heart size. No acute process seen.. - Laboratory data: Troponin negative x 3 - Current home cardiac medications include amlodipine 5 mg daily, Brilinta 90 mg twice a day, Aldactone 25 mg daily, Entresto 24-26 mg twice a day, Ranexa 1000 mg twice a day, metoprolol succinate 200 mg daily, Imdur 120 mg daily, Lasix 20 mg twice a day, fenofibrate 160 mg daily, Zetia 10 mg daily, colchicine 0.6 mg daily, Lipitor 80 mg at night, aspirin 81 mg daily - Most recent echocardiogram obtained in August 2024 revealing ejection fraction 40 to 45% with mild TR - Cardiac catheterization history: 08/2024 revealing patent stent in the LAD/diagonal bifurcation with no evidence of high-grade stenosis with KUMAR-3 flow, 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 Patient denies chest pain or pressure. He denies shortness of breath. Vital signs are stable. PHYSICAL EXAM: VITAL SIGNS: Reviewed. GENERAL: Well-developed in no acute distress. HEENT: Head is normocephalic. Pupils are equal, round. Sclerae anicteric. Mucous membranes of the mouth are moist. Neck supple. No JVD or thyromegaly LUNGS: Respirations even and unlabored. Lungs essentially clear to auscultation bilaterally. HEART: Regular rate and rhythm. S1 and S2 heard. ABDOMEN: Soft. Nondistended. Nontender. EXTREMITIES: Normal range of motion. No clubbing or cyanosis. Peripheral pulses intact. Right BKA. NEUROLOGIC: Awake and alert. Oriented x 3. ASSESSMENT: Chest pain Recent hospitalization for syncope and chest pain Chronic heart failure with reduced EF 40 to 45% Hyperglycemia, blood sugars in the 300s upon admission Chronically elevated troponins Several hospitalizations for NSTEMI Severe CAD status post multiple PCI, awaiting evaluation at [facility] Dyslipidemia Diabetes mellitus type 2 Right BKA Ischemic cardiomyopathy with with most recent EF of 40 to 45% Status post AICD Hypertension PAD History of medication noncompliance Obesity: BMI 37.7 PLAN: An acute coronary event has been ruled out Continue current cardiac medications Patient is stable for discharge home today from a cardiac standpoint Patient to follow-up postdischarge with Dr. Hernandez We will sign off. Please reconsult if needed. Nurse practitioner note has been reviewed by physician. Signing provider agrees with the documented findings, assessment, and plan of care documented by [employer] as a scribe. Objective - Vital Signs Vital signs: Vital Signs Temp 97.6 F 11/06/24 07:00 Pulse 70 11/06/24 07:57 Resp 18 11/06/24 07:00 BP 116/72 11/06/24 07:00 Pulse Ox 96 11/06/24 07:00 FiO2 Intake & Output 11/05/24 11/06/24 11/06/24 18:59 06:59 18:59 Intake Total 480 480 Balance 480 480 Intake: Oral 480 480 Other: Voiding Method Toilet Toilet Toilet # Voids 3 1 - Labs CBC & Chem 7: 11/05/24 04:39 11/05/24 04:39 Labs: Abnormal Lab Results - Last 24 Hours (Table) 11/05/24 11/05/24 11/05/24 Range/Units 12:22 17:12 19:54 POC Glucose (mg/dL) 320 H 302 H 346 H (70-110) mg/dL 11/06/24 Range/Units 05:47 POC Glucose (mg/dL) 309 H (70-110) mg/dL
[2024-11-06 12:25] LABS: Glucose,Whole Blood 324 mg/dL (70-110)
[2024-11-06 14:04] VITALS: BP 111/65; RESP 17; TEMP 97.7
[2024-11-06 15:48] VITALS: PULSE 70
== END 2024-11-06 18:30 | disposition home or self-care (01) ==
LOC: EC 14:14 → 6NMEDSUR 17:28
PROVIDERS: ADMIT Family Medicine; ATTEND Family Medicine
DX: R07.89 Other chest pain (principal); I11.0 Hypertensive heart disease with heart failure; I50.22 Chronic systolic (congestive) heart failure; E11.65 Type 2 diabetes mellitus with hyperglycemia; I25.10 Atherosclerotic heart disease of native coronary artery without angina pectoris; I25.5 Ischemic cardiomyopathy; I44.7 Left bundle-branch block, unspecified; E78.5 Hyperlipidemia, unspecified; E11.51 Type 2 diabetes mellitus with diabetic peripheral angiopathy without gangrene; R79.89 Other specified abnormal findings of blood chemistry; M79.602 Pain in left arm; E66.9 Obesity, unspecified; Z68.37 Body mass index [BMI] 37.0-37.9, adult; I25.2 Old myocardial infarction; Z91.199 Patient's noncompliance with other medical treatment and regimen due to unspecified reason; Z79.4 Long term (current) use of insulin; Z79.82 Long term (current) use of aspirin; Z79.85 Long-term (current) use of injectable non-insulin antidiabetic drugs; Z79.02 Long term (current) use of antithrombotics/antiplatelets; Z79.899 Other long term (current) drug therapy; Z88.0 Allergy status to penicillin; Z87.891 Personal history of nicotine dependence; Z95.810 Presence of automatic (implantable) cardiac defibrillator; Z89.511 Acquired absence of right leg below knee; Z95.5 Presence of coronary angioplasty implant and graft
CPT/HCPCS: 96376 ×2; 96374; 96375; 99285; 36415; 94640 ×4; 93005; 83880; 80053; 80048; 83690; 83735; 84484; 85025 ×2; 85610; 85730; 71046; G0378 ×3; J2270 ×3; J1200; J2765